=== PATIENT | female | born 1960 | race Caucasian/White ===

== ENCOUNTER → 2016-10-11 | Outpatient (CLI) | payer MEDICARE ==
--- NOTE | 2016-10-11 11:41 | MM ---
Reason for exam: clinical finding. Last mammogram was performed 19 years and 4 months ago. History: Patient is postmenopausal. Family history of premenopausal breast cancer in mother. Took estrogen for 7 years. Indicated problem(s): skin thickening or retraction in the left breast. Physical Findings: Nurse did not find any significant physical abnormalities on exam. MG 3D Diag Mammo W/Cad ASH Bilateral CC and MLO view(s) were taken. XCCL view(s) were taken of the right breast. Prior study comparison: June 17, 1997, bilateral diagnostic mammogram. The breast tissue is heterogeneously dense. This may lower the sensitivity of mammography. No significant new findings when compared with previous films. These results were verbally communicated with the patient and result sheet given to the patient on 10/11/16. ASSESSMENT: Benign, BI-RAD 2 RECOMMENDATION: Routine screening mammogram of both breasts in 1 year.
== END | disposition home or self-care (01) ==
LOC: RADMAMWWP 10:50
PROVIDERS: ATTEND Family Medicine
DX: N64.51 Induration of breast (principal)
CPT/HCPCS: G0204; G0279

== ENCOUNTER → 2017-11-22 | Outpatient (CLI) | payer MEDICARE ==
[2017-11-22 11:25] LABS: Anion Gap 9 mmol/L; Blood Urea Nitrogen 9 mg/dL (7-17); Carbon Dioxide 24 mmol/L (22-30); Chloride 108 mmol/L (98-107); Potassium 4.4 mmol/L (3.5-5.1); Sodium 141 mmol/L (137-145)
[2017-11-22 11:29] LABS: HCT 43.6 % (34.0-46.0); MCH 30.3 pg (25.0-35.0); MCHC 32.1 g/dL (31.0-37.0); MCV 94.5 fL (80.0-100.0); Mean Platelet Volume 6.7; Platelet Count 315 k/uL (150-450); RBC 4.61 m/uL (3.80-5.40); RDW 14.9 % (11.5-15.5); WBC 7.4 k/uL (3.8-10.6)
== END | disposition home or self-care (01) ==
LOC: LABPAT 10:49
PROVIDERS: ATTEND Internal Medicine Cardiovascular Disease
DX: Z01.812 Encounter for preprocedural laboratory examination (principal); I10 Essential (primary) hypertension; I20.9 Angina pectoris, unspecified
CPT/HCPCS: 80051; 82565; 84520; 85027

== ENCOUNTER → 2017-11-22 | Outpatient (CLI) | payer MEDICARE | END | disposition home or self-care (01) | LOC: LABWHC1 10:51 | PROVIDERS: ATTEND Internal Medicine Cardiovascular Disease | DX: I20.9 Angina pectoris, unspecified (principal) | CPT/HCPCS: 36415; 83704 ==

== ENCOUNTER 2017-11-29 10:42 | Day surgery (SDC) | payer MEDICARE, OTHER ==
[~2017-11-29 10:42] MED LIST: ALPRAZolam 0.25 MG TAB PO PRN; ALPRAZolam 0.5 MG TAB PO PRN; ASPIRIN 325 MG TAB PO STA; ATORVASTATIN 80 MG TAB PO STA; NITROGLYCERIN SL TABS 0.4 MG TAB SUBLINGUAL PRN; SODIUM CHLORIDE 0.9% 1,000 ML in EMPTY BAG 1 BAG IV ONE
[2017-11-29] MEDS ORDERED: SODIUM CHLORIDE 0.9% 1,000 ML IV ONE (11:48)
[2017-11-29] MEDS ORDERED: LIDOCAINE 1% INJ 10MG/ML (20 ML MDV) ONE (12:51)
[2017-11-29] MEDS ORDERED: fentaNYL (PF) 50 MCG/ML 2 ML AMP ONE (12:55)
[2017-11-29] MEDS ORDERED: MIDAZOLAM 2 MG/2 ML VIAL ONE (12:55)
[2017-11-29] MEDS ORDERED: MIDAZOLAM 2 MG/2 ML VIAL IV ONE (13:00)
[2017-11-29] MEDS ORDERED: fentaNYL (PF) 50 MCG/ML 2 ML AMP IV ONE (13:00)
[2017-11-29] MEDS ORDERED: LIDOCAINE 1% (PF) 10MG/ML VIAL SQ ONE (13:01)
[2017-11-29] MEDS ORDERED: LIDOCAINE 1% INJ 10MG/ML (20 ML MDV) SQ ONE (13:01)
[2017-11-29] MEDS ORDERED: NITROGLYCERIN 1000MCG/10ML SYRINGE INTRACORON ONE (13:09)
[2017-11-29] MEDS ORDERED: CLOPIDOGREL 75 MG TAB ONE ×2 (13:38)
[2017-11-29] MEDS ORDERED: BIVALIRUDIN BOLUS 250 MG/50 ML IV ONE (13:42)
[2017-11-29] MEDS ORDERED: BIVALIRUDIN 250 MG in SODIUM CHLORIDE 0.9% 50 ML IV ONE (13:44)
[2017-11-29] MEDS ORDERED: CLOPIDOGREL 75 MG TAB PO ONE (13:44)
[2017-11-29] MEDS ORDERED: IOPAMIDOL-370 125ML BTL INJ ONE (13:49)
[2017-11-29] MEDS ORDERED: IOPAMIDOL-370 100ML BTL INJ ONE ×2 (14:13→14:18)
[2017-11-29] MEDS ORDERED: ATROPINE SULFATE 0.1 MG/ML 10ML SYRINGE IV PRN (14:29)
[2017-11-29] MEDS ORDERED: MAG HYDROX/AL HYDROX/SIMETH 30 ML CUP PO PRN (14:29)
[2017-11-29] MEDS ORDERED: NITROGLYCERIN SL TABS 0.4 MG TAB SUBLINGUAL PRN (14:29)
[2017-11-29] MEDS ORDERED: RX INFO: IV CONTRAST WAS GIVEN 1 EACH MISC MISCELLANE PRN (14:29)
[2017-11-29] MEDS ORDERED: ZOLPIDEM 5 MG TAB PO PRN (14:29)
[2017-11-29] MEDS ORDERED: SODIUM CHLORIDE 0.9% 1,000 ML IV SCH (14:30)
--- NOTE | 2017-11-29 15:57 | CC ---
CARDIAC CATHETERIZATION REPORT Mrs. Chang was seen in the office for the symptoms of evaluation of chest pain. This patient has a history of hypertension and strong family history of coronary artery disease. The patient has been having intermittent left precordial chest discomfort. Previous stress test was negative. The patient has been tried on medical therapy, but in view of the continued pain, the patient was advised cardiac catheterization for definitive diagnosis. PROCEDURE: The right groin was prepped and draped in the usual manner and the skin was infiltrated with 2% Xylocaine. The right femoral artery was entered using Seldinger technique. A #6- Kazakh sheath was placed in. Selective coronary angiography was then performed in multiple projections and the left ventricular pressures were obtained. Patient tolerated the procedure well. Moderate sedation was used with sedation time of 20 minutes. SELECTIVE CORONARY ANGIOGRAPHY: Left main coronary artery is normal and patent. The mid LAD is a good caliber blood vessel. Mid LAD has an area of 70% stenosis and beyond that there is another area of 70% stenosis. Circumflex coronary artery has mild irregularity and the right coronary artery has mild irregularity. IMPRESSION: There is a 70% stenosis in 2 spots in the mid LAD. Circumflex coronary artery and right coronary artery have mild irregularity. We will review the films with Dr. Ribeiro and consider intervention. MMODL / IJN: [id number] /
--- NOTE | 2017-11-29 16:24 | PTCA ---
PERCUTANEOUSTRANS CORORONARY ANGIOGRAPHY Mrs. Chang is a 57-year-old female known history of chronic tobacco use. Strong family history of coronary disease, history of hypertension who has been complaining of progressive episodes of chest discomfort. Because of that, she underwent cardiac catheterization that revealed critical significant stenosis involving 2 segment of a calcified LAD. In view of that, recommendation was made regarding angioplasty and stenting. The procedure, as well as risks and complications were discussed with the patient who is in full understanding and agreement. PROCEDURE: A 6-Brazilian FR4 guiding catheter was introduced into the system. After cannulating the left main, a 0.014 advanced medium weight J-wire was advanced across the left main and positioned into the ramus intermedius. Subsequently another 0.014 advanced medium weight J-wire was advanced in position in the distal LAD. Following that, a 2.5 x 15 mm Xience Alpine stent was deployed in the mid distal segment and was dilated to 16 atmospheres. That balloon was removed and a 2.5 x 15 mm Xience Alpine stent was deployed into the mid segment and it was dilated at 16 atmospheres. Following that, a 2.5 x 12 mm Xience Alpine stent was deployed in the segment between the 2 stent and was dilated at 16 atmospheres. Following that, and after removing the balloon, a 2.5 x 12 mm Xience Alpine stent was deployed proximal to the first one and it was dilated at 16 atmospheres. After the last inflation, after appropriate wait, the balloon and the guidewire were withdrawn back in the guiding catheter. Images were obtained and repeated. Those images revealed stable successful stenting. At that point, the guiding catheter, the balloon and the guidewire were removed. The sheath was sutured in place. The patient was returned to her room in stable condition. Of note, the patient had chest discomfort and EKG changes with the inflation that resolved at the end of the procedure. She received Angiomax per protocol as well as oral loading dose of clopidogrel. RESULTS: Successful stenting of the mid distal LAD with reduction of stenosis from 80% to 0%. RECOMMENDATION: Patient will be continued on aspirin, Plavix and statin. The importance of dual antiplatelet treatment and aggressive coronary risk factor modifications were discussed with the patient and her family and they are in full understanding and agreement. Duration of procedure is 37 minutes. MMODL / IJN: [id number] /
[2017-11-29 17:50] VITALS: RESP 16
[2017-11-29] MEDS: GABAPENTIN 400 MG CAP PO SCH ×2 (19:47→23:42)
[2017-11-29] MEDS ORDERED: DOXEPIN 25 MG CAP PO SCH (21:00)
[2017-11-29] MEDS ORDERED: cloNIDine HCL 0.1 MG TAB PO SCH (21:00)
[2017-11-30 05:58] VITALS: PULSE 80
[2017-11-30] MEDS ORDERED: LEVOTHYROXINE 75 MCG TAB PO SCH (06:30)
[2017-11-30 06:34] LABS: Anion Gap 8 mmol/L; Blood Urea Nitrogen 13 mg/dL (7-17); Calcium 9.2 mg/dL (8.4-10.2); Carbon Dioxide 22 mmol/L (22-30); Chloride 110 mmol/L (98-107); Glucose 102 mg/dL (74-99); Potassium 5.1 mmol/L (3.5-5.1); Sodium 140 mmol/L (137-145)
[2017-11-30 08:37] VITALS: BP 114/55; TEMP 97.8
[2017-11-30] MEDS ORDERED: CLOPIDOGREL 75 MG TAB PO SCH (09:00)
[2017-11-30] MEDS ORDERED: BUPRENORPHINE HCL SL SCH (09:00)
[2017-11-30] MEDS ORDERED: LOSARTAN 50 MG TAB PO SCH (09:00)
[2017-11-30] MEDS ORDERED: ESCITALOPRAM 20 MG TAB PO SCH (09:00)
[2017-11-30] MEDS ORDERED: NALOXONE HCL SL SCH (09:00)
[2017-11-30] MEDS ORDERED: ASPIRIN 81 MG PO SCH (09:00)
[2017-11-30] MEDS ORDERED: TICAGRELOR 90 MG TAB PO SCH (10:15)
--- NOTE | 2017-11-30 10:31 | DS ---
DISCHARGE SUMMARY DISCHARGE NOTE This patient was admitted, underwent cardiac catheterization yesterday. There were 2 areas of 70% stenosis in mid LAD. Patient underwent a stent placement. She is doing well. Right groin is normal. There is no evidence of any hematoma. First and second heart sounds are normal. Lungs are clinically clear to auscultation and percussion. The patient was educated regarding the medications. She is advised to stop smoking. Patient will be discharged home on baby aspirin and Brilinta. MMODL / IJN: [id number] /
[2017-11-30 11:00] VITALS: BMI 25.5
--- NOTE | 2017-11-30 12:31 | PN ---
PROGRESS NOTE Mrs Chang was admitted yesterday. Dr. Pepper Eduardo performed cardiac cath and Dr. Ribeiro performed LAD stenting. Multiple stents were deployed. I am recommending that she can be discharged. Her right groin is clean and dry. Vitals are stable S1-S2 heard normally. Lungs are clear. Abdomen and lower extremity exam unchanged. Given multiple stents, she should ideally go home on Brilinta and we will see if she has any coverage with it. Physical exam, there are no other significant findings. She will see Dr. Eduardo in one week and discharge instructions regarding activity, diet and medications were given. MMODL / IJN: [id number] /
[2017-11-30] MEDS ORDERED: ATORVASTATIN 80 MG TAB PO SCH (21:00)
== END 2017-11-30 11:25 | disposition home or self-care (01) ==
LOC: CATHCVL 10:42 → 6SEL 14:18 → CATHCVL 11-30 11:25
PROVIDERS: ATTEND Internal Medicine Cardiovascular Disease
DX: I25.10 Atherosclerotic heart disease of native coronary artery without angina pectoris (principal); I10 Essential (primary) hypertension; F17.210 Nicotine dependence, cigarettes, uncomplicated; Z82.49 Family history of ischemic heart disease and other diseases of the circulatory system; Z79.890 Hormone replacement therapy; Z79.899 Other long term (current) drug therapy; Z88.6 Allergy status to analgesic agent; Z88.8 Allergy status to other drugs, medicaments and biological substances
CPT/HCPCS: 93458; 80048; C9600; C1769 ×2; C1887; C1894; C1874; J2250; J2001; J3010; J0583; Q9967 ×2

== ENCOUNTER → 2018-04-01 | Outpatient (CLI) | payer MEDICARE ==
--- NOTE | 2018-04-01 19:36 | MR ---
MR brain without contrast HISTORY: Dizziness and TIA Multiplanar multisequence imaging through the brain. No comparisons There is no restricted diffusion. Cerebellopontine angles, corpus callosum, pituitary, cervical medul doris junction are normal. No hemorrhage or hydrocephalus. There are scattered hyperintensities on inv ersion recovery T2-weighted sequences within the periventricular white matter, approximately 5 lesion s, increased signal also noted within the teodora. The orbits show symmetric appearance. Inflammatory ch veronica present in the ethmoid air cells. IMPRESSION: Nonspecific white matter demyelination may be indicative of underlying vasculitis, small vessel ischemia, hypertension, migraine headaches, multiple sclerosis felt to be less likely.
--- NOTE | 2018-04-02 10:03 | MR ---
EXAMINATION TYPE: MR angio head wo con DATE OF EXAM: 04/01/2018 COMPARISON: MR brain same date HISTORY: DIZZINESS, TIA TECHNIQUE: Time of flight images focusing on the [place] were performed without contrast. Th ree-dimensional reconstructions on an alternate workstation FINDINGS: Anterior and posterior circulation is intact. There is no evident aneurysm, dissection, or embolus. No vascular malformation. Right vertebral artery is dominant. Persistent origin of the posterior cerebral artery on the left is noted. Atheromatous changes are present within the internal carotid arteries at the level of the siphon. IMPRESSION: Cerebral vascular disease.
== END ==
LOC: RADMRIMAIN 14:03
PROVIDERS: ATTEND Internal Medicine Cardiovascular Disease
DX: I99.8 Other disorder of circulatory system (principal)
CPT/HCPCS: 70544; 70551

== ENCOUNTER → 2018-04-10 | Outpatient (CLI) | payer MEDICARE, OTHER ==
--- NOTE | 2018-04-10 10:43 | CT ---
EXAMINATION TYPE: CT angio neck DATE OF EXAM: 04/10/2018 HISTORY: Carotid stenosis. Abnormal US. COMPARISON: NONE CT DLP: 189.2 mGycm. Automated Exposure Control for Dose Reduction was Utilized. TECHNIQUE: CTA scan of the neck is performed with IV Contrast, patient injected with 65 mL of Isovue 370, axial images are obtained, coronal and sagittal reformatted images are reviewed. Three-D recons tructed images are created on an independent workstation and reviewed. FINDINGS: Carotid/Vascular Structures: There is moderate mixed plaque in aortic arch extending into 3 great ves sels without significant stenosis identified. Visualized subclavian arteries show moderate plaque on the right without significant stenosis. There is suboptimal evaluation of the left due to streak reji fact from draining left subclavian vein. Right common carotid artery shows normal origin from right brachiocephalic artery with moderate perip heral noncalcified plaque. There is mild to moderate mixed plaque proximal to mid segments with more moderate to severe mixed plaque in the distal right common carotid artery. There is moderate mixed pl aque at carotid bulb extending into proximal internal/external carotid arteries. Right external carot id artery is patent without significant stenosis. Right internal carotid artery shows no significant stenosis. Slight tortuous course to mid segment of right internal carotid artery is seen. There is mo derate calcified plaque supraclinoid segment without significant stenosis. Mild to moderate mixed plaque left common carotid artery at its origin is seen. There is moderate mix ed plaque in the mid segment becoming noncalcified plaque. There is moderate to severe mixed plaque d istal left common carotid artery extending into carotid bulb, significant stenosis at origin of exter nal carotid artery is felt present. There is focal narrowing of the left internal carotid artery shor tly after its origin with lumen diameter narrows to 2.5 mm image 26 and reconstitution to 4.4 mm supe rior to this. Postprocessing images correlate. Remainder of the internal carotid artery shows tortuou s course mid segment with moderate calcified plaque distal supraclinoid segment. No significant steno sis is present. There is dominant right vertebral artery. Vertebral arteries are patent to basilar junction. Other: There is background moderate emphysematous change. There are prominent but subcentimeter lymph nodes throughout the neck bilaterally, left slightly larg er than right at submandibular level. Underlying scoliosis is present on coronal images. IMPRESSION: Moderate to severe diffuse atherosclerotic change throughout common carotid arteries bila terally including carotid bulbs without hemodynamically significant focal stenosis seen in common or internal carotid arteries.
== END | disposition home or self-care (01) ==
LOC: RADCTMAIN 08:53
PROVIDERS: ATTEND Internal Medicine Interventional Cardiology
DX: I65.23 Occlusion and stenosis of bilateral carotid arteries (principal)
CPT/HCPCS: 70498; Q9967

== ENCOUNTER → 2018-05-06 | Outpatient (CLI) | payer MEDICARE, OTHER ==
[2018-05-06 11:57] LABS: Hypochromasia Slight; MCH 31.7 pg (25.0-35.0); MCHC 31.8 g/dL (31.0-37.0); MCV 99.7 fL (80.0-100.0); Macrocytosis Slight; Platelet Count 343 k/uL (150-450); RBC 4.11 m/uL (3.80-5.40); RDW 15.3 % (11.5-15.5); WBC 8.8 k/uL (3.8-10.6)
[2018-05-06 12:05] LABS: Anion Gap 8 mmol/L; Blood Urea Nitrogen 10 mg/dL (7-17); Carbon Dioxide 26 mmol/L (22-30); Chloride 108 mmol/L (98-107); Potassium 4.3 mmol/L (3.5-5.1); Sodium 142 mmol/L (137-145)
== END | disposition home or self-care (01) ==
LOC: LABPAT 11:27
PROVIDERS: ATTEND Internal Medicine Interventional Cardiology
DX: Z01.812 Encounter for preprocedural laboratory examination (principal); I65.23 Occlusion and stenosis of bilateral carotid arteries; I25.10 Atherosclerotic heart disease of native coronary artery without angina pectoris
CPT/HCPCS: 80051; 82565; 84520; 85027

== ENCOUNTER → 2018-05-11 | Day surgery (SDC) | payer MEDICARE, OTHER ==
[2018-05-08 15:26] VITALS: BMI 27.1
[~2018-05-11] MED LIST changes: -ALPRAZolam 0.5 MG TAB PO PRN; -ATORVASTATIN 80 MG TAB PO STA; +IOPAMIDOL-250 100ML BTL INTRAARTER ONE; +LIDOCAINE 1% INJ 10MG/ML (20 ML MDV) SQ ONE; +MIDAZOLAM 2 MG/2 ML VIAL IV ONE; -NITROGLYCERIN SL TABS 0.4 MG TAB SUBLINGUAL PRN; +SODIUM CHLORIDE 0.9% 1,000 ML IV SCH
[2018-05-11 09:14] VITALS: TEMP 97.8
--- NOTE | 2018-05-11 12:03 | LTR ---
May 11 2018 Re: Lidia Chang Dear Dr. Mcwilliams: Ms. Lidia Chang underwent today an aortic arch angiogram and that revealed intermediate disease involving the origin of the major arteries including the innominate, left carotid, and left subclavian. Giving that I did recommend maximized medical treatment only. Thank you for allowing me to participate in her care and please do not hesitate to call if you have any question or concern. Sincerely, MD PILI Ordaz / ELISHA: [id number] /
[2018-05-11 12:35] VITALS: RESP 16
--- NOTE | 2018-05-11 12:48 | AN ---
ANGIOGRAPHY REPORT AORTIC ARCH ANGIOGRAM: DATE OF SERVICE: 05/11/2018. PERFORMING PHYSICIAN: Karthik Vale MD, credit portfolio manager. PROCEDURE PERFORMED: 1. An aortic arch angiogram. 2. Non selective innominate angiogram, left carotid angiogram, and left subclavian angiogram. INDICATION: This is a pleasant 57-year-old female patient who sees Dr. Eduardo in the office as an outpatient who had recently history of stroke and she underwent a carotid CTA which revealed intermediate to severe disease involving the carotid artery bilaterally. When I did review the CT scan with the radiologist, there was a concern about the ostium of the innominate and because of that, she was brought today to undergo an aortic arch angiogram. APPROACH: Right common femoral artery. COMPLICATION: None. LEVEL OF SEDATION: Moderate with sedation length of 16 minutes. PROCEDURE DESCRIPTION: 1. After obtaining an informed consent, the patient was brought to the cardiac track laborer. The right common femoral artery was cannulated using micropuncture technique, the micropuncture wire passed easily, then I placed a 5-Slovak sheath in the right common femoral artery. 2. After that, I did an aortic arch angiogram using 5-Slovak pigtail catheter. The aortic arch was performed in the [place] projection and using a power injection under digital subtraction. 3. The procedure was completed without any complication. SELECTIVE PERIPHERAL ANGIOGRAM: 1. The aortic arch is a type 1 arch, it is extremely calcified. 2. The ostial of the innominate has a plaque, appeared to be in the range of 60% to 70%. The ostium is extremely calcified. 3. The left carotid had a plaque, also appeared to be in the range of 50% to 60%. and also is extremely calcified. 4. The left subclavian. The ostial of the left subclavian has a plaque appeared to be in the range of 50% and also appeared to be calcified. CONCLUSION: 1. Type 1 aortic arch. 2. 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 POSTPROCEDURE MANAGEMENT: Giving the absence of any critical disease involving the innominate or the origin of the major arteries, I did recommend maximized medical treatment. I did review the angiogram also with Dr. Vargas. We did recommend following up with the patient in 6 months with a CTA of the of the thoracic aorta as well as the carotid using 3 mm thickness slices and injection from the right arm of the contrast. MMODL / IJN: [id number] /
[2018-05-11 15:45] VITALS: PULSE 62
[2018-05-11 16:08] VITALS: BP 129/60
--- NOTE | 2018-05-12 08:20 | IR ---
EXAMINATION TYPE: IR angio aortic arch DATE OF EXAM: 05/11/2018 COMPARISON: NONE HISTORY: Fluoroscopy time. Fluoroscopy was provided to the referring clinician. 1.5 minutes of fluoroscopy provided. No images submitted.
== END ==
LOC: CATHCVL 08:43
PROVIDERS: ATTEND Internal Medicine Interventional Cardiology
DX: I70.0 Atherosclerosis of aorta (principal); I65.22 Occlusion and stenosis of left carotid artery; I82.B12 Acute embolism and thrombosis of left subclavian vein; I25.10 Atherosclerotic heart disease of native coronary artery without angina pectoris; F17.200 Nicotine dependence, unspecified, uncomplicated; Z79.02 Long term (current) use of antithrombotics/antiplatelets; Z79.82 Long term (current) use of aspirin; Z79.890 Hormone replacement therapy; Z79.899 Other long term (current) drug therapy; Z88.6 Allergy status to analgesic agent; Z88.8 Allergy status to other drugs, medicaments and biological substances
CPT/HCPCS: 36221; C1769 ×3; C1894; J2250; J2001; Q9966

== ENCOUNTER 2018-07-03 15:39 | Observation (INO) | payer MEDICARE, OTHER ==
[2018-07-03] MEDS ORDERED: NITROGLYCERIN SL TABS 0.4 MG TAB SUBLINGUAL STA (16:04)
[2018-07-03] MEDS ORDERED: SODIUM CHLORIDE 0.9% 500 ML 500 ML IV STA (16:04)
[2018-07-03] MEDS ORDERED: NITROGLYCERIN OINT 1 INCH/GM PACKET TOPICAL STA (16:04)
--- NOTE | 2018-07-03 16:06 | ED ---
General Adult HPI - General Chief complaint: Chest Pain Stated complaint: Chest Pain Time Seen by Provider: 07/03/18 15:50 Source: patient, RN notes reviewed Mode of arrival: wheelchair Limitations: no limitations - History of Present Illness Initial comments: This is a 58-year-old female presents emergency department with past medical history significant for 4 cardiac stents and states that she needs another one on the of this month. Patient also has a past medical history for high cholesterol and continues to smoke. She also has a very strong family history of heart disease. Patient comes in today because she started having chest pain at 19 after 2 today. Patient states she took 3 nitroglycerin took the pain away but came back and that is why she came into the emergency department. Patient states it makes her slightly short of breath the pain does not radiate and stays in the center of her chest. Patient denies any diaphoretic episodes. Patient denies any nausea. Patient denies any abdominal pain patient denies any recent vomiting or diarrhea. Patient denies any recent fever chills or cough per patient denies headache patient denies numbness weakness. Patient denies any lightheadedness dizziness or near syncopal episode. Patient denies any swelling to the legs or calf tenderness. - Related Data Home Medications Medication Instructions Recorded Confirmed Escitalopram [Lexapro] 40 mg PO DAILY 11/28/17 07/03/18 Levothyroxine Sodium [Synthroid] 150 mcg PO DAILY 11/28/17 07/03/18 Gabapentin [Neurontin] 800 mg PO TID 11/29/17 07/03/18 Albuterol Inhaler [Ventolin Hfa 1 - 2 puff INHALATION RT-Q6H PRN 05/08/18 07/03/18 Inhaler] Previous Rx's Medication Instructions Recorded Aspirin EC [Ecotrin Low Dose] 81 mg PO DAILY #30 tablet. 11/30/17 Atorvastatin [Lipitor] 80 mg PO HS #30 tab 11/30/17 Losartan [Cozaar] 50 mg PO DAILY #30 tab 11/30/17 Nitroglycerin Sl Tabs [Nitrostat] 0.4 mg SUBLINGUAL Q5M PRN #25 tab 11/30/17 Ticagrelor [Brilinta] 90 mg PO BID #60 tab 11/30/17 Allergies Allergy/AdvReac Type Severity Reaction Status Date / Time ibuprofen [From Motrin] Allergy Unknown Verified 07/03/18 16:18 Review of Systems ROS Statement: Those systems with pertinent positive or pertinent negative responses have been documented in the HPI. ROS Other: All systems not noted in ROS Statement are negative. Past Medical History Past Medical History: Asthma, Coronary Artery Disease (CAD), Chest Pain / Angina, COPD, Thyroid Disorder Additional Past Medical History / Comment(s): SLIGHT COPD. 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 CYSTS REMOVED FROM UNDER ARMS AND HANDS Past Anesthesia/Blood Transfusion Reactions: No Reported Reaction Past Psychological History: Depression Smoking Status: Current every day smoker Past Alcohol Use History: None Reported Past Drug Use History: None Reported - Past Family History Mother Family Medical History: Cancer Sister(s) Family Medical History: Cancer General Exam - General Exam Comments Initial Comments: GENERAL: Patient is well-developed and well-nourished. Patient is nontoxic and well- hydrated and is in mild distress. ENT: Neck is soft and supple. No significant lymphadenopathy is noted. Oropharynx is clear. Moist mucous membranes. Neck has full range of motion without eliciting any pain. EYES: The sclera were anicteric and conjunctiva were pink and moist. Extraocular movements were intact and pupils were equal round and reactive to light. Eyelids were unremarkable. PULMONARY: Unlabored respirations. Good breath sounds bilaterally. No audible rales rhonchi or wheezing was noted. CARDIOVASCULAR: There is a regular rate and rhythm without any murmurs gallops or rubs. ABDOMEN: Soft and nontender with normal bowel sounds. SKIN: Skin is clear with no lesions or rashes and otherwise unremarkable. NEUROLOGIC: Patient is alert and oriented x3. Cranial nerves II through XII are grossly intact. Motor and sensory are also intact. Normal speech, volume and content. Symmetrical smile. MUSCULOSKELETAL: Normal extremities with adequate strength and full range of motion. No lower extremity swelling or edema. No calf tenderness. LYMPHATICS: No significant lymphadenopathy is noted PSYCHIATRIC: Normal psychiatric evaluation. 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 The risks of smoking were discussed with the patient including but not limited to risks of cancer, stroke, coronary artery disease and COPD. Also discussed with the patient were multiple methods of quitting smoking. Lastly we discussed the financial costs of smoking. Patient's EKG shows a normal sinus rhythm at 74 bpm MN interval is 140 QRS is 102 QT interval is 416 QTC is 461. Patient's EKG shows no ST segment elevation or depression or T wave abnormalities are noted. I started the patient on heparin because of the unstable angina picture. Patient was feeling considerably better after she was put on oxygen given Nitropaste and aspirin. I spoke with Dr. Mcwilliams agreed to admit the patient admitted the patient I wrote admitting orders and I consulted cardiology. I continued heparin and aspirin and Nitropaste on the floor. Chest x-ray shows no acute abnormality. - Lab Data Result diagrams: 07/03/18 16:20 07/03/18 16:20 Lab Results 07/03/18 07/03/18 07/03/18 Range/Units 16:20 16:20 16:20 WBC 9.7 (3.8-10.6) k/uL RBC 4.47 (3.80-5.40) m/uL Hgb 13.6 (11.4-16.0) gm/dL Hct 42.8 (34.0-46.0) % MCV 95.8 (80.0-100.0) fL MCH 30.5 (25.0-35.0) pg MCHC 31.9 (31.0-37.0) g/dL RDW 14.4 (11.5-15.5) % Plt Count 335 (150-450) k/uL Neutrophils % 56 % Lymphocytes % 33 % Monocytes % 5 % Eosinophils % 3 % Basophils % 1 % Neutrophils # 5.4 (1.3-7.7) k/uL Lymphocytes # 3.2 (1.0-4.8) k/uL Monocytes # 0.5 (0-1.0) k/uL Eosinophils # 0.2 (0-0.7) k/uL Basophils # 0.1 (0-0.2) k/uL PT 9.8 (9.0-12.0) sec INR 0.9 (<1.2) APTT 20.9 L (22.0-30.0) sec Sodium 137 (137-145) mmol/L Potassium 5.3 H (3.5-5.1) mmol/L Chloride 105 (98-107) mmol/L Carbon Dioxide 23 (22-30) mmol/L Anion Gap 9 mmol/L BUN 6 L (7-17) mg/dL Creatinine 0.60 (0.52-1.04) mg/dL Est GFR (CKD-EPI)AfAm >90 (>60 ml/min/1.73 sqM) Est GFR (CKD-EPI)NonAf >90 (>60 ml/min/1.73 sqM) Glucose 86 (74-99) mg/dL Calcium 9.2 (8.4-10.2) mg/dL Magnesium 2.3 (1.6-2.3) mg/dL Total Bilirubin 0.5 (0.2-1.3) mg/dL AST 31 (14-36) U/L ALT 20 (9-52) U/L Alkaline Phosphatase 100 (38-126) U/L Troponin I (0.000-0.034) ng/mL Total Protein 7.8 (6.3-8.2) g/dL Albumin 4.4 (3.5-5.0) g/dL 07/03/18 Range/Units 16:20 WBC (3.8-10.6) k/uL RBC (3.80-5.40) m/uL Hgb (11.4-16.0) gm/dL Hct (34.0-46.0) % MCV (80.0-100.0) fL MCH (25.0-35.0) pg MCHC (31.0-37.0) g/dL RDW (11.5-15.5) % Plt Count (150-450) k/uL Neutrophils % % Lymphocytes % % Monocytes % % Eosinophils % % Basophils % % Neutrophils # (1.3-7.7) k/uL Lymphocytes # (1.0-4.8) k/uL Monocytes # (0-1.0) k/uL Eosinophils # (0-0.7) k/uL Basophils # (0-0.2) k/uL PT (9.0-12.0) sec INR (<1.2) APTT (22.0-30.0) sec Sodium (137-145) mmol/L Potassium (3.5-5.1) mmol/L Chloride (98-107) mmol/L Carbon Dioxide (22-30) mmol/L Anion Gap mmol/L BUN (7-17) mg/dL Creatinine (0.52-1.04) mg/dL Est GFR (CKD-EPI)AfAm (>60 ml/min/1.73 sqM) Est GFR (CKD-EPI)NonAf (>60 ml/min/1.73 sqM) Glucose (74-99) mg/dL Calcium (8.4-10.2) mg/dL Magnesium (1.6-2.3) mg/dL Total Bilirubin (0.2-1.3) mg/dL AST (14-36) U/L ALT (9-52) U/L Alkaline Phosphatase (38-126) U/L Troponin I <0.012 (0.000-0.034) ng/mL Total Protein (6.3-8.2) g/dL Albumin (3.5-5.0) g/dL Critical Care Time Critical Care Time: Yes Total Critical Care Time: 35 Disposition Clinical Impression: Unstable angina pectoris Disposition: ADMITTED IP TO THIS [facility] Time of Disposition: 17:18
[2018-07-03 16:36] LABS: Basophils # (A) 0.1 k/uL (0-0.2); Basophils % (A) 1 %; Eosinophils # (A) 0.2 k/uL (0-0.7); Eosinophils % (A) 3 %; HCT 42.8 % (34.0-46.0); HGB 13.6 gm/dL (11.4-16.0); Lymphocytes # (A) 3.2 k/uL (1.0-4.8); Lymphocytes % (A) 33 %; MCH 30.5 pg (25.0-35.0); MCHC 31.9 g/dL (31.0-37.0); MCV 95.8 fL (80.0-100.0); Mean Platelet Volume 6.3; Monocytes # (A) 0.5 k/uL (0-1.0); Monocytes % (A) 5 %; Neutrophils # (A) 5.4 k/uL (1.3-7.7); Neutrophils % (A) 56 %; Platelet Count 335 k/uL (150-450); RBC 4.47 m/uL (3.80-5.40); RDW 14.4 % (11.5-15.5); WBC 9.7 k/uL (3.8-10.6)
[2018-07-03 16:51] LABS: ALT 20 U/L (9-52); AST 31 U/L (14-36); Albumin 4.4 g/dL (3.5-5.0); Alkaline Phosphatase 100 U/L (38-126); Anion Gap 9 mmol/L; Blood Urea Nitrogen 6 mg/dL (7-17); Calcium 9.2 mg/dL (8.4-10.2); Carbon Dioxide 23 mmol/L (22-30); Chloride 105 mmol/L (98-107); Glucose 86 mg/dL (74-99); Magnesium 2.3 mg/dL (1.6-2.3); Potassium 5.3 mmol/L (3.5-5.1); Sodium 137 mmol/L (137-145); Total Bilirubin 0.5 mg/dL (0.2-1.3); Total Protein 7.8 g/dL (6.3-8.2)
[2018-07-03 16:55] LABS: INR 0.9 (<1.2); Prothrombin Time 9.8 sec (9.0-12.0)
[2018-07-03 17:07] LABS: Partial Thromboplastin Time 20.9 sec (22.0-30.0)
[2018-07-03] MEDS ORDERED: HEPARIN SODIUM,PORCINE 5,000 UNIT/ML 1 ML VIAL IV ONE (17:16)
[2018-07-03] MEDS ORDERED: NITROGLYCERIN SL TABS 0.4 MG TAB SUBLINGUAL PRN (17:18)
--- NOTE | 2018-07-03 17:58 | XR ---
EXAMINATION TYPE: XR chest 2V DATE OF EXAM: 07/03/2018 COMPARISON: NONE HISTORY: History of angina with chest pain. TECHNIQUE: Frontal and lateral views of the chest are obtained. FINDINGS: Overlying EKG leads are seen. There is chronic parenchymal change without suspicious focal air space opacity, pleural effusion, or pneumothorax seen. The cardiac silhouette size is within no rmal limits with atherosclerotic change in thoracic aorta redemonstrated. Metallic screw fragment rig ht humeral head is noted. The osseous structures are demineralized. IMPRESSION: Chronic changes without acute pulmonary process.
[2018-07-03] MEDS: HEPARIN SOD,PORK IN 0.45% NACL 25,000 UNIT in 0.45% NACL 1 250ML.BAG IV SCH (18:03)
[2018-07-03] MEDS: ACETAMINOPHEN TAB 325 MG TAB PO PRN (20:45)
[2018-07-04] MEDS: NITROGLYCERIN OINT 1 INCH/GM PACKET TOPICAL SCH ×4 (01:47→18:24)
[2018-07-04] MEDS ORDERED: guaiFENesin SYRUP 100MG/5ML 200 MG/10 ML CUP PO PRN (02:22)
[2018-07-04] MEDS ORDERED: IPRATROPIUM-ALBUTEROL 3 ML NEB INHALATION PRN (02:22)
[2018-07-04 03:52] LABS: Cholesterol 130 mg/dL (<200); HDL Cholesterol 40 mg/dL (40-60); LDL Cholesterol,Calculated 64 mg/dL (0-99); Triglycerides 129 mg/dL (<150)
[2018-07-04] MEDS ORDERED: ALBUTEROL NEBULIZED 2.5 MG/3 ML INHALATION PRN (07:31)
[2018-07-04] MEDS ORDERED: NITROGLYCERIN SL TABS 0.4 MG TAB SUBLINGUAL PRN (07:31)
--- NOTE | 2018-07-04 07:31 | P.HPIM ---
History of Present Illness Chief Complaint: Anginal type chest pain. This is history of physical and a 58-year-old white female who presented to the ER and has history of multiple stent placements. She is about 7 cigarettes smoker and she slowly trying to wean. She states that she is scheduled to have further stent placement at the end of this month. However, she had significant anginal type chest pain without any diaphoresis no nausea but the pressure was significant. She ended up taking nitroglycerin but the pain came back and she is now here for evaluation. Enzymatic elevation is not elucidated at this time. We had a long discussion again regarding smoking cessation. Review of Systems Constitutional: Denies chills, Denies fever Eyes: denies blurred vision, denies pain Ears, nose, mouth and throat: Denies headache, Denies sore throat Cardiovascular: Reports chest pain, Reports dyspnea on exertion Respiratory: Denies cough Gastrointestinal: Denies abdominal pain, Denies diarrhea, Denies nausea, Denies vomiting Genitourinary: Denies dysuria, Denies hematuria Musculoskeletal: Denies myalgias Past Medical History Past Medical History: Asthma, Coronary Artery Disease (CAD), Chest Pain / Angina, COPD, Thyroid Disorder Additional Past Medical History / Comment(s): SLIGHT COPD. 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 CYSTS REMOVED FROM UNDER ARMS AND HANDS. 4 stents Past Anesthesia/Blood Transfusion Reactions: No Reported Reaction Date of Last Stent Placement:: nov 2017 Smoking Status: Current every day smoker - Past Family History Mother Family Medical History: Cancer Sister(s) Family Medical History: Cancer Medications and Allergies Home Medications Medication Instructions Recorded Confirmed Type Escitalopram [Lexapro] 40 mg PO DAILY 11/28/17 07/03/18 History Levothyroxine Sodium [Synthroid] 150 mcg PO DAILY 11/28/17 07/03/18 History Gabapentin [Neurontin] 800 mg PO TID 11/29/17 07/03/18 History Aspirin EC [Ecotrin Low Dose] 81 mg PO DAILY #30 tablet. 11/30/17 07/03/18 Rx Atorvastatin [Lipitor] 80 mg PO HS #30 tab 11/30/17 07/03/18 Rx Losartan [Cozaar] 50 mg PO DAILY #30 tab 11/30/17 07/03/18 Rx Nitroglycerin Sl Tabs [Nitrostat] 0.4 mg SUBLINGUAL Q5M PRN #25 tab 11/30/17 07/03/18 Rx Ticagrelor [Brilinta] 90 mg PO BID #60 tab 11/30/17 07/03/18 Rx Albuterol Inhaler [Ventolin Hfa 1 - 2 puff INHALATION RT-Q6H PRN 05/08/18 07/03/18 History Inhaler] Allergies Allergy/AdvReac Type Severity Reaction Status Date / Time ibuprofen [From Motrin] Allergy Unknown Verified 07/03/18 20:27 Physical Exam Vitals: Vital Signs Temp Pulse Pulse Resp BP BP Pulse Ox 07/04/18 04:00 16 07/04/18 03:47 98.2 F 79 16 134/73 97 07/04/18 03:41 70 07/04/18 03:31 107 H 07/04/18 00:00 16 07/03/18 23:54 98.2 F 75 16 128/63 93 L 07/03/18 20:00 18 07/03/18 19:53 98.0 F 80 18 164/75 92 L 07/03/18 17:20 97.9 F 86 16 138/90 98 07/03/18 15:45 65 07/03/18 15:41 97.7 F 75 18 165/67 98 Intake and Output 07/03/18 07/04/18 07/04/18 22:59 06:59 14:59 Intake Total 80.697 Balance 80.697 Intake: Intake, IV Titration 80.697 Amount Heparin Sod,Pork in 0.45% 80.697 NaCl 25,000 unit In 0.45 % NaCl 1 250ml.bag @ 12 UNITS/KG/HR 8.6 mls/hr IV .Q24H [facility] Rx#:[id number] Other: # Voids 1 Weight 71.668 kg - Constitutional General appearance: obese - EENT Eyes: EOMI - Respiratory Respiratory: right: wheezing, bilateral: diminished - Cardiovascular Rhythm: regular Heart sounds: normal: S1, S2 Abnormal Heart Sounds: no S3 Gallop - Gastrointestinal General gastrointestinal: soft, no tenderness - Neurologic Neurologic: CNII-XII intact - Musculoskeletal Musculoskeletal: generalized weakness - Psychiatric Psychiatric: A&O x's 3, appropriate affect Results CBC & Chem 7: 07/03/18 16:20 07/03/18 16:20 Labs: Abnormal Lab Results - Last 24 Hours (Table) 07/03/18 07/03/18 Range/Units 16:20 16:20 APTT 20.9 L (22.0-30.0) sec Potassium 5.3 H (3.5-5.1) mmol/L BUN 6 L (7-17) mg/dL Thrombosis Risk Factor Assmnt - Choose All That Apply Each Factor Represents 1 point: Age 41-60 years Thrombosis Risk Factor Assessment Total Risk Factor Score: 1 Thrombosis Risk Factor Assessment Level: Low Risk Assessment and Plan (1) Wheezing Current Visit: Yes Status: Acute Code(s): R06.2 - WHEEZING SNOMED Code(s): 83165736 (2) Tobacco abuse Current Visit: Yes Status: Acute Code(s): Z72.0 - TOBACCO USE SNOMED Code(s): 743710662 (3) CAD (coronary artery disease) Current Visit: Yes Status: Acute Code(s): I25.10 - ATHSCL HEART DISEASE OF [place] CORONARY ARTERY W/O ANG PCTRS SNOMED Code(s): 02404746 (4) Unstable angina pectoris Current Visit: Yes Status: Acute Code(s): I20.0 - UNSTABLE ANGINA SNOMED Code(s): 3969307 Plan: Myocardial infraction has been ruled out. Question need to decrease timetable to next stent placement. Cigarette cessation again discussed with the patient. Prognosis is somewhat guarded. We'll continue follow with cardiology. Anticipate discharge in next 24 hours.
[2018-07-04] MEDS: IPRATROPIUM-ALBUTEROL 3 ML NEB INHALATION PRN ×3 (08:14→15:39)
[2018-07-04] MEDS ORDERED: SODIUM CHLORIDE 0.9% 1,000 ML in EMPTY BAG 1 BAG IV ONE (08:42)
[2018-07-04] MEDS ORDERED: ASPIRIN 325 MG TAB PO SCH (09:00)
[2018-07-04] MEDS ORDERED: HEPARIN SODIUM,PORCINE 5,000 UNIT/ML 1 ML VIAL IV PRN (09:35)
[2018-07-04] MEDS: TICAGRELOR 90 MG TAB PO SCH ×2 (09:40→22:13)
[2018-07-04] MEDS: ASPIRIN 81 MG PO SCH (09:40)
[2018-07-04] MEDS: ESCITALOPRAM 20 MG TAB PO SCH (09:40)
[2018-07-04] MEDS: LOSARTAN 50 MG TAB PO SCH (09:41)
[2018-07-04] MEDS: GABAPENTIN 400 MG CAP PO SCH ×3 (09:41→22:13)
[2018-07-04] MEDS: ACETAMINOPHEN TAB 325 MG TAB PO PRN (09:53)
[2018-07-04] MEDS: LEVOTHYROXINE 75 MCG TAB PO SCH (10:11)
--- NOTE | 2018-07-04 11:23 | P.CRDCN ---
History of Present Illness History of present illness: This is a pleasant 58-year-old female past medical history significant for coronary artery disease status post recent stent placement 4 to the LAD, COPD, hypothyroidism, peripheral vascular disease, dyslipidemia, chronic nicotine dependence and hypertension. She follows in the office with Dr. Eduardo. We have been asked to see her in consultation for symptoms of chest discomfort. She states starting yesterday at rest she began having a sharp pressure-like pain in the midsternal region very similar to how she felt last year prior to having her stent placed. She states the pain comes with no specific aggravating cause and mostly is at rest. There is no radiation to the arm, back, neck or jaw. She denies associated shortness of breath, dizziness, nausea, vomiting, palpitations or diaphoresis. At home when she started having the discomfort for the first time she did take 3 sublingual nitroglycerin and her pain did seem to improve with each one she took. She did have another episode of chest pain around 0300 last night but went away on its own and was given no nitro. EKG on arrival sinus mechanism with sinus arrhythmia with left axis deviation and no ST or T-wave abnormalities. Chest xray reveals chronic changes without acute cardiopulmonary process. Laboratory data reviewed, WBC 9.7, hgb 13.6, plt 335, sodium 137, potassium on admission 5.3 repeat this morning 4.4, creatinine 0.6, magnesium 2.3, cardiac enzymes negative x3, LDL 64. Current cardiac medications include aspirin 81 mg daily, atorvastatin 80 mg daily, losartan 50 mg daily and brilinta 90 mg BID. At the time of my exam: CONSTITUTIONAL: Denies fever. Denies chills. EYES: Denies blurred vision. Denies vision changes. Denies eye pain. EARS, NOSE, MOUTH & THROAT: Denies headache. Denies sore throat. Denies ear pain. CARDIOVASCULAR: Denies chest pain. Denies shortness of breath. Denies orthopnea. Denies PND. Denies palpitations. RESPIRATORY: Denies cough. GASTROINTESTINAL: Denies abdominal pain. Denies diarrhea. Denies constipation. Denies nausea. Denies vomiting. MUSCULOSKELETAL: Denies myalgias. INTEGUMENTARY: Denies pruitis. Denies rash. NEUROLOGIC: Denies numbness. Denies tingling. Denies weakness. PSYCHIATRIC: Denies anxiety. Denies depression. ENDOCRINE: Denies fatigue. Denies weight change. Denies polydipsia. Denies polyurina. GENITOURINARY: Denies burning, hematuria or urgency with micturation. HEMATOLOGIC: Denies history of anemia. Denies bleeding. Blood pressure 159/59 heart rate 87 afebrile maintaining oxygen saturation on room air GENERAL: This is a 58-year-old female in no apparent distress at the time of my examination. HEENT: Head is atraumatic, normocephalic. Pupils are equal, round. Sclerae anicteric. Conjunctivae are clear. Mucous membranes of the mouth are moist. Neck is supple. There is no jugular venous distention. Bilateral carotid bruits is heard. LUNGS: Clear to auscultation no wheezes, rales or rhonchi. No chest wall tendern ess is noted on palpation or with deep breathing. HEART: Regular rate and rhythm with systolic ejection murmur at the base, no rubs or gallops. S1 and S2 heard. ABDOMEN: Soft, nontender. Bowel sounds are heard. No organomegaly noted. EXTREMITIES: No evidence of peripheral edema and no calf tenderness noted. VASCULAR: Radial and dorsalis pedis pulses palpated, no evidence of clubbing. NEUROLOGIC: Patient is awake, alert and oriented x3. ASSESSMENT Unstable angina with recent stent placement November 2017 on brilinta and aspirin Hypertension Dyslipidemia Peripheral vascular disease, carotid artery disease and calcified aortic arch. Plan for carotid artery stent 07/[address] Vale. COPD Chronic nicotine dependence PLAN Obtain 2D echocardiogram and doppler study to assess cardiac structure and function. Continue heparin infusion. Recommend proceeding with cardiac catheterization to assess for progression of CAD or possible in-stent restenosis. I have discussed the risks, benefits and alternative therapies for the above- mentioned procedure and for both sedation/analgesia as well as necessary blood product administration, if indicated, as they pertain to this patient. The bhumika ent has indicated understanding and acceptance of the risks and procedures discussed. Questions have been answered appropriately and she is agreeable to move forward with the above stated procedure. 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 Eduardo for tomorrow morning. Smoking cessation recommended, she states she has cut down to 1 cigarette/day. Further recommendations to follow based on clinical course. Thank you kindly for this consultation. Nurse Practitioner note has been reviewed, I agree with a documented findings and plan of care. Patient was seen and examined. Past Medical History Past Medical History: Asthma, Coronary Artery Disease (CAD), Chest Pain / Angina, COPD, Thyroid Disorder Additional Past Medical History / Comment(s): SLIGHT COPD. 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 CYSTS REMOVED FROM UNDER ARMS AND HANDS. 4 stents Past Anesthesia/Blood Transfusion Reactions: No Reported Reaction Date of Last Stent Placement:: nov 2017 Smoking Status: Current every day smoker - Past Family History Mother Family Medical History: Cancer Sister(s) Family Medical History: Cancer Medications and Allergies Home Medications Medication Instructions Recorded Confirmed Type Escitalopram [Lexapro] 40 mg PO DAILY 11/28/17 07/03/18 History Levothyroxine Sodium [Synthroid] 150 mcg PO DAILY 11/28/17 07/03/18 History Gabapentin [Neurontin] 800 mg PO TID 11/29/17 07/03/18 History Aspirin EC [Ecotrin Low Dose] 81 mg PO DAILY #30 tablet. 11/30/17 07/03/18 Rx Atorvastatin [Lipitor] 80 mg PO HS #30 tab 11/30/17 07/03/18 Rx Losartan [Cozaar] 50 mg PO DAILY #30 tab 11/30/17 07/03/18 Rx Nitroglycerin Sl Tabs [Nitrostat] 0.4 mg SUBLINGUAL Q5M PRN #25 tab 11/30/17 07/03/18 Rx Ticagrelor [Brilinta] 90 mg PO BID #60 tab 11/30/17 07/03/18 Rx Albuterol Inhaler [Ventolin Hfa 1 - 2 puff INHALATION RT-Q6H PRN 05/08/18 07/03/18 History Inhaler] Allergies Allergy/AdvReac Type Severity Reaction Status Date / Time ibuprofen [From Motrin] Allergy Unknown Verified 07/03/18 20:27 Physical Exam Vitals: Vital Signs Temp Pulse Pulse Pulse Resp BP BP 07/04/18 07:15 97.5 F L 87 18 159/59 07/04/18 04:00 16 07/04/18 03:47 98.2 F 79 16 134/73 07/04/18 03:41 70 07/04/18 03:31 107 H 07/04/18 00:00 16 07/03/18 23:54 98.2 F 75 16 128/63 07/03/18 20:00 18 07/03/18 19:53 98.0 F 80 18 164/75 07/03/18 17:20 97.9 F 86 16 138/90 07/03/18 15:45 65 07/03/18 15:41 97.7 F 75 18 165/67 Pulse Ox 07/04/18 07:15 93 L 07/04/18 04:00 07/04/18 03:47 97 07/04/18 03:41 07/04/18 03:31 07/04/18 00:00 07/03/18 23:54 93 L 07/03/18 20:00 07/03/18 19:53 92 L 07/03/18 17:20 98 07/03/18 15:45 07/03/18 15:41 98 Intake and Output 07/03/18 07/04/18 07/04/18 22:59 06:59 14:59 Intake Total 80.697 Balance 80.697 Intake: Intake, IV Titration 80.697 Amount Heparin Sod,Pork in 0.45% 80.697 NaCl 25,000 unit In 0.45 % NaCl 1 250ml.bag @ 12 UNITS/KG/HR 8.6 mls/hr IV .Q24H [facility] Rx#:[id number] Other: # Voids 1 Weight 71.668 kg Results 07/03/18 16:20 07/04/18 08:52 Cardiac Enzymes 07/03/18 07/03/18 07/03/18 Range/Units 16:20 16:20 21:32 AST 31 (14-36) U/L Troponin I <0.012 <0.012 (0.000-0.034) ng/mL 07/04/18 Range/Units 04:40 AST (14-36) U/L Troponin I <0.012 (0.000-0.034) ng/mL Coagulation 07/03/18 07/04/18 Range/Units 16:20 02:25 PT 9.8 (9.0-12.0) sec APTT 20.9 L 29.5 (22.0-30.0) sec Lipids 07/03/18 Range/Units 16:20 Triglycerides 129 (<150) mg/dL Cholesterol 130 (<200) mg/dL HDL Cholesterol 40 (40-60) mg/dL CBC 07/03/18 Range/Units 16:20 WBC 9.7 (3.8-10.6) k/uL RBC 4.47 (3.80-5.40) m/uL Hgb 13.6 (11.4-16.0) gm/dL Hct 42.8 (34.0-46.0) % Plt Count 335 (150-450) k/uL Comprehensive Metabolic Panel 07/03/18 Range/Units 16:20 Sodium 137 (137-145) mmol/L Potassium 5.3 H (3.5-5.1) mmol/L Chloride 105 (98-107) mmol/L Carbon Dioxide 23 (22-30) mmol/L BUN 6 L (7-17) mg/dL Creatinine 0.60 (0.52-1.04) mg/dL Glucose 86 (74-99) mg/dL Calcium 9.2 (8.4-10.2) mg/dL AST 31 (14-36) U/L ALT 20 (9-52) U/L Alkaline Phosphatase 100 (38-126) U/L Total Protein 7.8 (6.3-8.2) g/dL Albumin 4.4 (3.5-5.0) g/dL Current Medications Generic Name Dose Route Start Last Admin Trade Name Freq PRN Reason Stop Dose Admin Acetaminophen 650 mg 07/03/18 20:40 07/03/18 20:45 Tylenol Tab PO 650 mg Q4HR PRN Administration Fever and/ or Mild Pain Albuterol Sulfate 2.5 mg 07/04/18 07:31 Ventolin Nebulized INHALATION RT-Q6H PRN Dyspnea Albuterol/Ipratropium 3 ml 07/04/18 07:33 Duoneb 0.5 Mg-3 Mg/3 Ml Soln INHALATION RT-QID PRN Shortness Of Breath Or Wheezing Aspirin 325 mg 07/04/18 09:00 Aspirin PO DAILY [facility] Atorvastatin Calcium 80 mg 07/04/18 21:00 Lipitor PO HS [facility] Escitalopram Oxalate 40 mg 07/04/18 09:00 Lexapro PO DAILY [facility] Gabapentin 800 mg 07/04/18 09:00 Neurontin PO TID [facility] Guaifenesin 200 mg 07/04/18 02:22 07/04/18 03:26 Robitussin PO 200 mg Q6H PRN Administration Cough Heparin Sodium/Sodium Chloride 250 mls @ 8.6 mls/hr 07/03/18 17:30 07/04/18 03:26 25,000 unit/ Sodium Chloride IV 15 units/kg/hr .Q24H [facility] 10.75 mls/hr Titration Protocol 12 UNITS/KG/HR Levothyroxine Sodium 150 mcg 07/04/18 07:45 Synthroid PO DAILY@0630 [facility] Losartan Potassium 50 mg 07/04/18 09:00 Cozaar PO DAILY [facility] Nitroglycerin 1 inch 07/04/18 00:00 07/04/18 04:31 Nitro-Bid Oint TOPICAL Not Given Q6HR [facility] Nitroglycerin 0.4 mg 07/03/18 17:18 Nitrostat SUBLINGUAL Q5M PRN Chest Pain Intake and Output 07/03/18 07/04/18 07/04/18 22:59 06:59 14:59 Intake Total 80.697 Balance 80.697 Intake: Intake, IV Titration 80.697 Amount Heparin Sod,Pork in 0.45% 80.697 NaCl 25,000 unit In 0.45 % NaCl 1 250ml.bag @ 12 UNITS/KG/HR 8.6 mls/hr IV .Q24H [facility] Rx#:[id number] Other: # Voids 1 Weight 71.668 kg 07/03/18 16:20 07/03/18 16:20
[2018-07-04] MEDS: HEPARIN SOD,PORK IN 0.45% NACL 25,000 UNIT in 0.45% NACL 1 250ML.BAG IV SCH (18:12)
[2018-07-04] MEDS ORDERED: ATORVASTATIN 80 MG TAB PO SCH (21:00)
[2018-07-04 23:56] VITALS: RESP 18
[2018-07-05] MEDS: NITROGLYCERIN OINT 1 INCH/GM PACKET TOPICAL SCH ×3 (01:15→12:59)
[2018-07-05] MEDS: IPRATROPIUM-ALBUTEROL 3 ML NEB INHALATION PRN ×2 (04:05→10:35)
[2018-07-05] MEDS: LEVOTHYROXINE 75 MCG TAB PO SCH (07:55)
[2018-07-05] MEDS: ESCITALOPRAM 20 MG TAB PO SCH (07:55)
[2018-07-05] MEDS: LOSARTAN 50 MG TAB PO SCH (07:55)
[2018-07-05] MEDS: GABAPENTIN 400 MG CAP PO SCH (07:55)
[2018-07-05] MEDS: TICAGRELOR 90 MG TAB PO SCH (07:55)
[2018-07-05] MEDS: ASPIRIN 81 MG PO SCH (07:55)
--- NOTE | 2018-07-05 08:40 | PN ---
PROGRESS NOTE Mrs Chang is a lady who came in yesterday with chest pain suggestive of angina. She has history of prior LAD stenting. She is comfortable this morning, but given her symptoms and presentation, I am recommending coronary angiography. Dr. Pepper Eduardo will perform the cardiac cath and if intervention is necessary, Dr. Vale will do will be doing the procedure. She is resting comfortably without symptoms. Echo revealed preserved systolic function. Vital signs are normal. S1, S2 heard normally. Short systolic murmur is noted. Lungs are clear. Abdomen and lower exam is unchanged. Patient also has some left subclavian disease as well. MMODL / IJN: [id number] /
[2018-07-05 11:29] VITALS: BP 145/73; TEMP 98
[2018-07-05 11:52] VITALS: PULSE 88
[2018-07-05] MEDS: ACETAMINOPHEN TAB 325 MG TAB PO PRN (12:13)
--- NOTE | 2018-07-07 09:09 | ECHOF ---
Referral Reason:cp MEASUREMENTS -------- HEIGHT: 162.6 cm WEIGHT: 71.7 kg BP: 159/59 RVIDd: 2.9 cm (< 3.3) IVSd: 1.3 cm (0.6 - 1.1) LVIDd: 4.0 cm (3.9 - 5.3) LVPWd: 1.4 cm (0.6 - 1.1) IVSs: 1.9 cm LVIDs: 2.6 cm LVPWs: 1.6 cm LA Diam: 3.4 cm (2.7 - 3.8) LAESV Index (A-L): 21.54 ml/m Ao Diam: 3.3 cm (2.0 - 3.7) AV Cusp: 1.8 cm (1.5 - 2.6) MV EXCURSION: 12.495 mm (> 18.000) MV EF SLOPE: 52 mm/s (70 - 150) EPSS: 0.3 cm MV E Brice: 1.16 m/s MV DecT: 211 ms MV A Brice: 1.25 m/s MV E/A Ratio: 0.93 FINDINGS -------- Sinus rhythm. This was a technically adequate study. The left ventricular size is normal. There is moderate concentric left ventricular hypertrophy. O verall left ventricular systolic function is normal with, an EF between 55 - 60 %. The right ventricle is normal in size. Normal LA size by volume 22+/-6 ml/m2. The right atrium is normal in size. The aortic valve is trileaflet and appears structurally normal. Mild mitral annular calcification present. The tricuspid valve appears structurally normal. There is no pulmonic regurgitation present. The aortic root size is normal. Normal inferior vena cava with normal inspiratory collapse consistent with estimated right atrial pre ssure of 5 mmHg. There is no pericardial effusion. CONCLUSIONS -------- 1. Sinus rhythm. 2. This was a technically adequate study. 3. The left ventricular size is normal. 4. There is moderate concentric left ventricular hypertrophy. 5. Overall left ventricular systolic function is normal with, an EF between 55 - 60 %. 6. The right ventricle is normal in size. 7. Normal LA size by volume 22+/-6 ml/m2. 8. The right atrium is normal in size. 9. The aortic valve is trileaflet and appears structurally normal. 10. Mild mitral annular calcification present. 11. The tricuspid valve appears structurally normal. 12. There is no pulmonic regurgitation present. 13. The aortic root size is normal. 14. Normal inferior vena cava with normal inspiratory collapse consistent with estimated right atrial pressure of 5 mmHg. 15. There is no pericardial effusion. [employer] OPERATOR: Esha Simmons RDCS
== END 2018-07-05 13:35 | disposition home or self-care (01) ==
LOC: EC 15:39 → 1SOBS 17:19
PROVIDERS: ADMIT Family Medicine; ATTEND Family Medicine
DX: I25.110 Atherosclerotic heart disease of native coronary artery with unstable angina pectoris (principal); E03.9 Hypothyroidism, unspecified; E78.00 Pure hypercholesterolemia, unspecified; E78.5 Hyperlipidemia, unspecified; I10 Essential (primary) hypertension; F32.9 Major depressive disorder, single episode, unspecified; J44.9 Chronic obstructive pulmonary disease, unspecified; I73.9 Peripheral vascular disease, unspecified; G62.9 Polyneuropathy, unspecified; F17.210 Nicotine dependence, cigarettes, uncomplicated; Z71.6 Tobacco abuse counseling; Z95.5 Presence of coronary angioplasty implant and graft; Z90.710 Acquired absence of both cervix and uterus; Z79.899 Other long term (current) drug therapy; Z79.890 Hormone replacement therapy; Z79.82 Long term (current) use of aspirin; Z79.02 Long term (current) use of antithrombotics/antiplatelets; Z82.49 Family history of ischemic heart disease and other diseases of the circulatory system
CPT/HCPCS: 96366 ×3; 96376 ×2; 96365; 99291; 36415; 94640 ×3; 93005; 93306; 80061; 80053; 83735; 84132; 84484 ×2; 85025; 85610; 85730 ×3; 71046; G0378 ×3; J1644 ×4

== ENCOUNTER 2018-07-11 04:40 | Emergency (ER) | payer MEDICARE ==
[2018-07-11] MEDS ORDERED: SODIUM CHLORIDE 0.9% 500 ML 500 ML IV STA (04:42)
--- NOTE | 2018-07-11 04:46 | ED ---
General Adult HPI - General Stated complaint: Seizure Time Seen by Provider: 07/11/18 04:42 Source: patient, EMS, RN notes reviewed, old records reviewed - History of Present Illness Initial comments: 58-year-old female presents for evaluation of generalized shaking, concern for seizure. Initial call to EMS was for suspected seizure. Patient had tremor and shaking which began in the left lower extremity. First episode was not witnessed by EMS. Second episode was during transport. She was alert during this episode according to EMS. She did have increased muscle rigidity an increased heart rate up to 170. She has no previous history of seizure disorder. She was recently seen in the hospital for chest pain with history of coronary artery disease. She states that since time of discharge approximately one week ago she's had nausea vomiting and diarrhea. Denies abdominal pain. She does report subjective fever and chills. Patient complains of a mild generalized headache which is been present for several days as well. No cough or URI symptoms. No chest pain or dyspnea. - Related Data Home Medications Medication Instructions Recorded Confirmed Escitalopram [Lexapro] 40 mg PO DAILY 11/28/17 07/10/18 Levothyroxine Sodium [Synthroid] 150 mcg PO DAILY 11/28/17 07/10/18 Gabapentin [Neurontin] 800 mg PO TID 11/29/17 07/10/18 Albuterol Inhaler [Ventolin Hfa 1 - 2 puff INHALATION RT-Q6H PRN 05/08/18 07/10/18 Inhaler] Previous Rx's Medication Instructions Recorded Aspirin EC [Ecotrin Low Dose] 81 mg PO DAILY #30 tablet. 11/30/17 Atorvastatin [Lipitor] 80 mg PO HS #30 tab 11/30/17 Losartan [Cozaar] 50 mg PO DAILY #30 tab 11/30/17 Nitroglycerin Sl Tabs [Nitrostat] 0.4 mg SUBLINGUAL Q5M PRN #25 tab 11/30/17 Ticagrelor [Brilinta] 90 mg PO BID #60 tab 11/30/17 Allergies Allergy/AdvReac Type Severity Reaction Status Date / Time ibuprofen [From Motrin] Allergy Unknown Verified 07/10/18 10:20 Review of Systems ROS Statement: Those systems with pertinent positive or pertinent negative responses have been documented in the HPI. ROS Other: All systems not noted in ROS Statement are negative. Past Medical History Past Medical History: Asthma, Coronary Artery Disease (CAD), Chest Pain / Angina, COPD, Thyroid Disorder Additional Past Medical History / Comment(s): SLIGHT COPD. 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 CYSTS REMOVED FROM UNDER ARMS AND HANDS. 4 stents Past Anesthesia/Blood Transfusion Reactions: No Reported Reaction Date of Last Stent Placement:: nov 2017 Past Psychological History: Depression Smoking Status: Current every day smoker Additional Past Alcohol Use History / Comment(s): SMOKES 1@ [employer] SINCE AGE 11 - Past Family History Mother Family Medical History: Cancer Sister(s) Family Medical History: Cancer General Exam General appearance: alert, in no apparent distress Head exam: Present: atraumatic, normocephalic Eye exam: Present: normal appearance, PERRL ENT exam: Present: mucous membranes dry Neck exam: Present: normal inspection. Absent: tenderness, meningismus Respiratory exam: Present: normal lung sounds bilaterally. Absent: respiratory distress, wheezes Cardiovascular Exam: Present: normal rhythm, tachycardia GI/Abdominal exam: Present: soft. Absent: distended, tenderness Extremities exam: Present: normal inspection, normal capillary refill. Absent: pedal edema Neurological exam: Present: alert, oriented X3, CN II-XII intact. Absent: motor sensory deficit Psychiatric exam: Present: normal affect, normal mood Skin exam: Present: warm, dry, intact. Absent: cyanosis, diaphoretic Course Vital Signs 07/11/18 07/11/18 04:44 06:02 Temperature 98.5 F Pulse Rate 94 87 Respiratory 16 20 Rate Blood Pressure 148/84 168/86 O2 Sat by Pulse 96 96 Oximetry - Reevaluation(s) Reevaluation #1: 07/11/18 06:10 Patient reevaluated, vital signs improved, nonfocal exam. EKG Findings - EKG Comments: EKG Findings:: EKG: Sinus tachycardia, left anterior fascicular block, rate of 142, MT interval 124, QRS duration 94, QTC 491. No ST segment elevation. Medical Decision Making - Medical Decision Making 58-year-old female presenting with suspected new onset seizure. EMS did report increased muscle rigidity, tremor which begins in the left lower extremity, this was associated with tachycardia. Initial vitals in the emergency department revealed tachycardia to 140. Blood pressure is stable. She has a nonfocal neurologic exam. Head CT is obtained is negative for scleral hemorrhage, no mass effect. Patient has mild leukocytosis 12.6, stable hemoglobin, normal electrolytes. Lactic acid is 7.7, this is consistent with seizure activity. Patient is given 2 L normal saline, initiated on Keppra. Patient will require admission for new onset seizure, dehydration, intractable nausea vomiting. There is no neurology at this institution and patient will be transferred. Patient transferred to [facility], accepting physician Dr. Lezama - Lab Data Result diagrams: 07/11/18 04:55 07/11/18 05:33 Lab Results 07/11/18 07/11/18 07/11/18 Range/Units 04:55 04:55 04:55 WBC 12.6 H (3.8-10.6) k/uL RBC 4.86 (3.80-5.40) m/uL Hgb 15.5 (11.4-16.0) gm/dL Hct 46.2 H (34.0-46.0) % MCV 95.0 (80.0-100.0) fL MCH 31.8 (25.0-35.0) pg MCHC 33.5 (31.0-37.0) g/dL RDW 14.8 (11.5-15.5) % Plt Count 405 (150-450) k/uL Neutrophils % 78 % Lymphocytes % 17 % Monocytes % 3 % Eosinophils % 1 % Basophils % 0 % Neutrophils # 9.9 H (1.3-7.7) k/uL Lymphocytes # 2.1 (1.0-4.8) k/uL Monocytes # 0.4 (0-1.0) k/uL Eosinophils # 0.1 (0-0.7) k/uL Basophils # 0.0 (0-0.2) k/uL PT 10.2 (9.0-12.0) sec INR 1.0 (<1.2) APTT 20.5 L (22.0-30.0) sec Sodium (137-145) mmol/L Potassium (3.5-5.1) mmol/L Chloride (98-107) mmol/L Carbon Dioxide (22-30) mmol/L Anion Gap mmol/L BUN (7-17) mg/dL Creatinine (0.52-1.04) mg/dL Est GFR (CKD-EPI)AfAm (>60 ml/min/1.73 sqM) Est GFR (CKD-EPI)NonAf (>60 ml/min/1.73 sqM) Glucose (74-99) mg/dL Plasma Lactic Acid Stepan 7.7 H* (0.7-2.0) mmol/L Calcium (8.4-10.2) mg/dL Magnesium (1.6-2.3) mg/dL Total Bilirubin (0.2-1.3) mg/dL AST (14-36) U/L ALT (9-52) U/L Alkaline Phosphatase (38-126) U/L Total Protein (6.3-8.2) g/dL Albumin (3.5-5.0) g/dL 07/11/18 Range/Units 05:33 WBC (3.8-10.6) k/uL RBC (3.80-5.40) m/uL Hgb (11.4-16.0) gm/dL Hct (34.0-46.0) % MCV (80.0-100.0) fL MCH (25.0-35.0) pg MCHC (31.0-37.0) g/dL RDW (11.5-15.5) % Plt Count (150-450) k/uL Neutrophils % % Lymphocytes % % Monocytes % % Eosinophils % % Basophils % % Neutrophils # (1.3-7.7) k/uL Lymphocytes # (1.0-4.8) k/uL Monocytes # (0-1.0) k/uL Eosinophils # (0-0.7) k/uL Basophils # (0-0.2) k/uL PT (9.0-12.0) sec INR (<1.2) APTT (22.0-30.0) sec Sodium 140 (137-145) mmol/L Potassium 3.5 (3.5-5.1) mmol/L Chloride 108 H (98-107) mmol/L Carbon Dioxide 19 L (22-30) mmol/L Anion Gap 13 mmol/L BUN 15 (7-17) mg/dL Creatinine 0.90 (0.52-1.04) mg/dL Est GFR (CKD-EPI)AfAm 81 (>60 ml/min/1.73 sqM) Est GFR (CKD-EPI)NonAf 71 (>60 ml/min/1.73 sqM) Glucose 143 H (74-99) mg/dL Plasma Lactic Acid Stepan (0.7-2.0) mmol/L Calcium 9.6 (8.4-10.2) mg/dL Magnesium 2.0 (1.6-2.3) mg/dL Total Bilirubin 0.5 (0.2-1.3) mg/dL AST 26 (14-36) U/L ALT 32 (9-52) U/L Alkaline Phosphatase 114 (38-126) U/L Total Protein 7.9 (6.3-8.2) g/dL Albumin 4.8 (3.5-5.0) g/dL Disposition Clinical Impression: New onset seizure, Dehydration, Intractable nausea and vomiting Disposition: OTHER INSTITUTION NOT DEFINED Condition: Stable Is patient prescribed a controlled substance at d/c from ED?: No Referrals: Jose F Mcwilliams MD [Primary Care Provider] - 1-2 days Time of Disposition: 06:15 - Out of Hospital Transfer - Req. Specs Out of Hospital Transfer - Requested Specifics: Other Emergency Center (Transferred to [facility])
[2018-07-11] MEDS ORDERED: SODIUM CHLORIDE 0.9% 1,000 ML IV ONE (04:50)
[2018-07-11] MEDS ORDERED: METOCLOPRAMIDE 5 MG/ML 2 ML VIAL IVP STA (04:50)
[2018-07-11] MEDS ORDERED: diphenhydrAMINE 50 MG/ML 1 ML VIAL IVP STA (04:51)
[2018-07-11 05:07] LABS: Basophils % (A) 0 %; Eosinophils # (A) 0.1 k/uL (0-0.7); Eosinophils % (A) 1 %; HCT 46.2 % (34.0-46.0); HGB 15.5 gm/dL (11.4-16.0); Lymphocytes # (A) 2.1 k/uL (1.0-4.8); Lymphocytes % (A) 17 %; MCH 31.8 pg (25.0-35.0); MCHC 33.5 g/dL (31.0-37.0); Mean Platelet Volume 8.9; Monocytes # (A) 0.4 k/uL (0-1.0); Monocytes % (A) 3 %; Neutrophils # (A) 9.9 k/uL (1.3-7.7); Neutrophils % (A) 78 %; Platelet Count 405 k/uL (150-450); RBC 4.86 m/uL (3.80-5.40); RDW 14.8 % (11.5-15.5); WBC 12.6 k/uL (3.8-10.6)
--- NOTE | 2018-07-11 05:38 | CT ---
EXAM: CT Head Without Intravenous Contrast CLINICAL HISTORY: ITS.REASON CT Reason: weakness TECHNIQUE: Axial computed tomography images of the head/brain without intravenous contrast. CTDI is 49 mGy and DLP is 1087 mGy-cm. This CT exam was performed using one or more of the following dose reduction techniques: automated exposure control, adjustment of the mA and/or kV according to patient size, and/or use of iterative reconstruction technique. COMPARISON: MR brain 04/01/18 FINDINGS: Brain: No hemorrhage, large hypodensity, or mass effect. Ventricles: No hydrocephalus. Bones/joints: Unremarkable. Soft tissues: Unremarkable. Sinuses: Unremarkable. Mastoid air cells: Clear. IMPRESSION: No acute hemorrhage, hydrocephalus, or mass effect.
--- NOTE | 2018-07-11 05:41 | XR ---
EXAM: XR Chest, 2 Views CLINICAL HISTORY: ITS.REASON XR Reason: Weakness TECHNIQUE: Frontal and lateral views of the chest. COMPARISON: 07/03/18 chest x-ray FINDINGS: Lungs: No consolidation or mass. Pleural space: No effusion. Heart: No cardiomegaly. Mediastinum: Unremarkable. Bones/joints: No acute findings. IMPRESSION: No acute cardiopulmonary process.
--- NOTE | 2018-07-11 05:41 | XR ---
EXAM: XR Abdomen, 1 View CLINICAL HISTORY: ITS.REASON XR Reason: Pain TECHNIQUE: Frontal supine view of the abdomen/pelvis. COMPARISON: No relevant prior studies available. FINDINGS: Gastrointestinal tract: Nonspecific bowel gas pattern. No dilation. Bones/joints: No acute fracture. No dislocation. IMPRESSION: Unremarkable abdominal x-ray.
[2018-07-11 05:44] LABS: Prothrombin Time 10.2 sec (9.0-12.0)
[2018-07-11 05:46] LABS: Partial Thromboplastin Time 20.5 sec (22.0-30.0)
[2018-07-11 05:56] LABS: Albumin 4.8 g/dL (3.5-5.0); Calcium 9.6 mg/dL (8.4-10.2); Potassium 3.5 mmol/L (3.5-5.1); Total Bilirubin 0.5 mg/dL (0.2-1.3); Total Protein 7.9 g/dL (6.3-8.2)
[2018-07-11] MEDS ORDERED: levETIRAcetam IV 1,000 MG in SALINE 1 100ML.BAG IVPB STA (05:57)
[2018-07-11] MEDS ORDERED: SODIUM CHLORIDE 0.9% 500 ML 500 ML IV ONE (05:57)
[2018-07-11] MEDS ORDERED: POTASSIUM CHLORIDE ER 20 MEQ TAB.ER PO STA (06:00)
[2018-07-11 06:04] VITALS: TEMP 98.5
[2018-07-11 06:33] LABS: Amorphous Sediment,Urine Occasional /hpf; Appearance,Urine Cloudy (Clear); Bacteria,Urine Rare /hpf; Bilirubin,Urine Negative (Negative); Blood,Urine Small (Negative); Color,Urine Yellow; Glucose,Urine (UA) Negative (Negative); Hyaline Casts,Urine 3 /lpf (0-2); Ketones,Urine 1+ (Negative); Leukocyte Esterase,Urine Negative (Negative); Mucus,Urine Rare /hpf; Nitrite,Urine Positive (Negative); PH, Urine 6.5 (5.0-8.0); Protein,Urine 2+ (Negative); RBC,Urine 4 /hpf (0-5); Specific Gravity,Urine 1.014 (1.001-1.035); Squamous Epithelial Cell,Urine 4 /hpf (0-4); Urobilinogen,Urine <2.0 mg/dL (<2.0); WBC,Urine 8 /hpf (0-5)
[2018-07-11 07:27] VITALS: BP 163/69; PULSE 92; RESP 15
== END 2018-07-11 07:24 | disposition other institution (70) ==
LOC: EC 04:40
DX: R56.9 Unspecified convulsions (principal); E86.0 Dehydration; R11.2 Nausea with vomiting, unspecified; J44.9 Chronic obstructive pulmonary disease, unspecified; E07.9 Disorder of thyroid, unspecified; G62.9 Polyneuropathy, unspecified; F32.9 Major depressive disorder, single episode, unspecified; F17.210 Nicotine dependence, cigarettes, uncomplicated; Z95.5 Presence of coronary angioplasty implant and graft; Z79.890 Hormone replacement therapy; Z79.899 Other long term (current) drug therapy; Z88.6 Allergy status to analgesic agent
CPT/HCPCS: 36415; 93005; 80053; 83605; 83735; 85025; 85610; 85730; 81001; 71046; 74018; 70450; 99285; 96365; 96375 ×2; 96361; J1200; J2765; J1953

== ENCOUNTER 2018-07-18 08:11 | Day surgery (SDC) | payer MEDICARE ==
[~2018-07-18 08:11] MED LIST changes: +ALPRAZolam 0.5 MG TAB PO PRN; +ATORVASTATIN 80 MG TAB PO STA; -IOPAMIDOL-250 100ML BTL INTRAARTER ONE; -LIDOCAINE 1% INJ 10MG/ML (20 ML MDV) SQ ONE; -MIDAZOLAM 2 MG/2 ML VIAL IV ONE; +NITROGLYCERIN SL TABS 0.4 MG TAB SUBLINGUAL PRN; +SODIUM CHLORIDE 0.9% 1,000 ML IV ONE; -SODIUM CHLORIDE 0.9% 1,000 ML IV SCH
[2018-07-18] MEDS ORDERED: MIDAZOLAM (PF) 2 MG/2 ML VIAL IV ONE ×2 (09:13→09:57)
[2018-07-18] MEDS ORDERED: LIDOCAINE 1% INJ 10MG/ML (20 ML MDV) SQ ONE (09:27)
[2018-07-18] MEDS: fentaNYL (PF) 50 MCG/ML 2 ML AMP IV ONE ×2 (09:32→10:21)
[2018-07-18] MEDS ORDERED: HEPARIN SODIUM 1,000 UN/ML (10ML VL) IV ONE (09:53)
[2018-07-18] MEDS ORDERED: NITROGLYCERIN SL TABS 0.4 MG TAB SUBLINGUAL PRN (10:38)
[2018-07-18] MEDS ORDERED: IOPAMIDOL-370 125ML BTL INJ ONE (10:43)
[2018-07-18] MEDS ORDERED: SODIUM CHLORIDE 0.9% 1,000 ML IV SCH (10:45)
--- NOTE | 2018-07-18 11:01 | LTR ---
DATE OF SERVICE: 07/18/2018 RE: Lidia Chang Dear Dr. Mcwilliams; Ms. Lidia Chang underwent today successful stenting of the left subclavian with good angiographic results and without any complication. I want to thank you for allowing me to participate in her care and please do not hesitate to call if you have any question or concern. Sincerely, MD PILI Ordaz / ELISHA: [id number] /
--- NOTE | 2018-07-18 11:01 | CC ---
CARDIAC CATHETERIZATION REPORT DATE OF SERVICE: 07/18/2018 PERFORMING PHYSICIAN: Karthik Vale MD, Lab Scientist. PROCEDURE PERFORMED: 1. Selective right and left coronary angiogram. 2. Left heart catheterization. INDICATION: This is a pleasant 58-year-old female patient who sees Dr. Eduardo in the office as an outpatient with known history of coronary artery disease and prior stenting of the left anterior descending artery was experiencing chest discomfort. She was brought today to undergo left subclavian stenting and because of that Dr. Eduardo has asked me to perform a heart catheterization on the patient at the same setting. APPROACH: Right common femoral artery. COMPLICATION: None. LEVEL OF SEDATION: Moderate sedation length of 12 minutes. PROCEDURE DESCRIPTION: I did selective left and right coronary angiogram using JL4 and JR4 catheter. Left heart catheterization was performed using the JR4 catheter which flipped into the LV then I did pullback across aortic valve. The procedure was completed without any complication. SELECTIVE CORONARY ANGIOGRAM: 1. The right coronary artery is a moderate caliber vessel and it is a dominant vessel. The RCA has mild disease only. Distally bifurcates into PDA and PLV branches, both appeared to be angiographically normal. 2. The left main is angiographically normal, it bifurcates into the left circumflex, ramus intermedius, and left anterior descending artery. 3. The left circumflex is a large caliber vessel. It is a nondominant vessel with mild disease in the midportion. 4. The ramus intermedius is a large caliber vessel, seems to be angiographically normal. 5. The LAD, the proximal LAD appeared to have mild disease only. The mid LAD is stented with a long area of stenting and seems to be normal. The LAD distally appeared to be normal. HEMODYNAMICS: The left ventricular end-diastolic pressure was about 10 mmHg without gradient across the aortic valve. CONCLUSION: Patent stent in the mid left anterior descending artery. POSTPROCEDURE MANAGEMENT: 1. Maximize medical treatment. 2. Follow up with the patient. MMODL / IJN: [id number] /
--- NOTE | 2018-07-18 11:16 | PTCA ---
PERCUTANEOUSTRANS CORORONARY ANGIOGRAPHY DATE OF SERVICE: 07/18/2018 PERFORMING PHYSICIAN: Karthik Vale MD, Mobility Architect. PROCEDURE PERFORMED: 1. Selective left subclavian angiogram. 2. Pressure gradient across the left subclavian artery. 3. Successful stenting of the left subclavian using 6.0 x 40 mm self expandable stent with an excellent angiographic results. INDICATION: This is a 58-year-old female patient who sees Dr. Eduardo in the office as an outpatient and sees Dr. Mcwilliams, who was experiencing left arm discomfort. She underwent a CT scan which revealed intermediate to severe left subclavian stenosis. Initially, she was treated medically. She continues to have left arm numbness and because of that, she was brought to undergo left subclavian stenting. APPROACH: Right common femoral artery. COMPLICATION: None. LEVEL OF SEDATION: Moderate with sedation length of 50 minutes. PROCEDURE DESCRIPTION: After obtaining an informed consent, the patient was brought to the cardiac lab associate. The right common femoral artery was cannulated using micropuncture technique, the micropuncture wire passed easily then I placed a 6-Mosotho sheath 11 cm in the right common femoral artery. After that, I did select the left subclavian using a Isabel catheter. I did selective left subclavian angiogram which revealed mild disease involving the ostial left subclavian with intermediate to severe disease involving the mid left subclavian and because of that, I decided to pressure gradient across also across the left subclavian. At that point, I did start anticoagulation with heparin. The patient was given 6000 units of heparin IV. After that, I did wire the left subclavian using 0.035 Glidewire. Then I did advanced an 0.035 Quick-Cross catheter distal to the lesion in the left subclavian, then it was pulled back proximal to the lesion in the mid left subclavian and the gradient came into be about 20 mmHg and because of that, I decided to stent the left subclavian. At that point, I did rewire the left subclavian again using 0.035 [place] Advantage. Then I did exchange my 11 cm 6-Mosotho sheath into 70 into a 90 cm 6-Mosotho sheath. The sheath was positioned in the ostial left subclavian. I did balloon angioplasty using 4 mm x 40 mm x x 20 mm balloon before I deployed 6 x 40 mm self expandable stent with what which was post dilated using 5 mm balloon. The following angiogram showed good angiographic results and the procedure was completed without any complication postprocedure management. 1. Dual anti-platelet therapy. 2. Risk factor modifications. 3. Follow up with the patient. PILI / ELISHA: [id number] /
[2018-07-18] MEDS: GABAPENTIN 400 MG CAP PO SCH ×2 (16:40→20:50)
[2018-07-18 17:06] VITALS: BMI 27.8
[2018-07-18] MEDS: levETIRAcetam 500 MG TAB PO SCH (20:49)
[2018-07-18] MEDS: TICAGRELOR 90 MG TAB PO SCH (20:50)
[2018-07-18] MEDS ORDERED: ATORVASTATIN 80 MG TAB PO SCH (21:00)
[2018-07-19 05:02] VITALS: TEMP 98
[2018-07-19] MEDS ORDERED: LEVOTHYROXINE 75 MCG TAB PO SCH (06:30)
[2018-07-19 06:48] LABS: Basophils # (A) 0.1 k/uL (0-0.2); Basophils % (A) 1 %; Eosinophils # (A) 0.4 k/uL (0-0.7); Eosinophils % (A) 4 %; HCT 39.6 % (34.0-46.0); Lymphocytes # (A) 2.8 k/uL (1.0-4.8); Lymphocytes % (A) 28 %; MCH 30.8 pg (25.0-35.0); MCHC 31.4 g/dL (31.0-37.0); MCV 98.1 fL (80.0-100.0); Monocytes # (A) 0.7 k/uL (0-1.0); Monocytes % (A) 7 %; Neutrophils # (A) 5.7 k/uL (1.3-7.7); Neutrophils % (A) 57 %; Platelet Count 353 k/uL (150-450); RBC 4.04 m/uL (3.80-5.40); RDW 14.6 % (11.5-15.5)
[2018-07-19 07:04] LABS: Anion Gap 7 mmol/L; Blood Urea Nitrogen 14 mg/dL (7-17); Calcium 9.3 mg/dL (8.4-10.2); Carbon Dioxide 28 mmol/L (22-30); Chloride 105 mmol/L (98-107); Glucose 109 mg/dL (74-99); Potassium 5.1 mmol/L (3.5-5.1); Sodium 140 mmol/L (137-145)
[2018-07-19 07:05] LABS: HGB 12.4 gm/dL (11.4-16.0)
[2018-07-19] MEDS: GABAPENTIN 400 MG CAP PO SCH (08:36)
[2018-07-19] MEDS: levETIRAcetam 500 MG TAB PO SCH (08:37)
[2018-07-19] MEDS: TICAGRELOR 90 MG TAB PO SCH (08:37)
[2018-07-19 08:41] VITALS: RESP 16
[2018-07-19] MEDS ORDERED: ASPIRIN 81 MG PO SCH (09:00)
[2018-07-19] MEDS ORDERED: ESCITALOPRAM 20 MG TAB PO SCH (09:00)
[2018-07-19] MEDS ORDERED: LOSARTAN 50 MG TAB PO SCH (09:00)
--- NOTE | 2018-07-19 09:33 | IR ---
EXAMINATION TYPE: IR stent intravas non coronary DATE OF EXAM: 07/18/2018 COMPARISON: NONE HISTORY: Fluoroscopy time. Fluoroscopy was provided to the referring clinician.
[2018-07-19 12:20] VITALS: BP 103/52; PULSE 77
--- NOTE | 2018-07-19 12:28 | P.PN ---
Subjective Progress Note Date: 07/19/18 Discharge note This is a pleasant 58-year-old female who follows regularly with Dr. VC Eduardo in the office. She has a known history of coronary artery disease with prior LAD stenting. She was experiencing chest discomfort and was brought in to undergo left subclavian stenting and because of that asked Dr. Evans to perform a heart cath at the same setting. Cardiac catheterization revealed a patent stent in the mid LAD and medical therapy was advised. Patient also underwent left subclavian stenting. She was seen and examined this morning, feels well, denies any chest discomfort, and her breathing overall is stable. Blood pressure this morning 108/60 with a heart rate in the 70s to 80s, 94% on room air. White blood cell count 10.0, hemoglobin 12.4, platelet count 353. Sodium 140, potassium 5.1, BUN 14 and creatinine 0.7. Objective - Vital Signs Vital signs: Vital Signs Temp 98.0 F 07/19/18 04:15 Pulse 88 07/19/18 08:00 Resp 16 07/19/18 12:00 BP 107/53 07/19/18 08:00 Pulse Ox 94 L 07/19/18 08:00 Intake & Output 07/18/18 07/19/18 07/19/18 18:59 06:59 18:59 Intake Total 1340 480 Output Total 50 Balance 1290 480 Weight 79.6 kg Intake: IV 700 Intake, IV Titration 400 Amount Sodium Chloride 0.9% 1, 400 000 ml @ 100 mls/hr IV . Q10H VINICIO Rx#:[id number] Oral 240 480 Output: Urine 50 Other: # Voids 1 1 - Exam PHYSICAL EXAMINATION: GENERAL: 89-year-old female in no acute distress at the time of my examination HEENT: Head is atraumatic, normocephalic. Pupils equal, round. Sclera anicteric. Conjunctiva are clear. Mucous membranes of the mouth are moist. Neck is supple. There is no elevated jugular venous pressure. No carotid bru it is heard. HEART EXAMINATION: [Heart S1, S2 normal. No murmur or gallop heard.] CHEST EXAMINATION:[ Lungs are clear to auscultation and precussion. No chest wall tenderness is noted on palpation or with deep breathing.] ABDOMEN: [ Soft, nontender. Bowel sounds are heard. No organomegaly noted]. EXTREMITIES:[ 2+ peripheral pulses with no evidence of peripheral edema and no calf tenderness noted]. Right groin is soft, no evidence of any hematoma. Left radial site clean and dry, good distal pulse. Patient does have a small amount of ecchymosis noted in the inside area of her upper arm. NEUROLOGIC [patient is awake, alert and oriented X3.] . - Labs CBC & Chem 7: 07/19/18 06:35 07/19/18 06:35 Labs: Abnormal Lab Results - Last 24 Hours (Table) 07/19/18 Range/Units 06:35 Glucose 109 H (74-99) mg/dL Assessment and Plan Plan: Assessment and plan #1 status post left subclavian stenting #2 status post cardiac catheterization which revealed a patent stent in the LAD and medical therapy advised #3 hyperlipidemia #4 hypothyroidism #5 COPD #6 asthma #7 nicotine dependence Plan Patient may be discharged home today from cardiology's perspective. We'll make her a follow-up appointment to see Dr. VC Eduardo the office post discharge. Discharge medications include aspirin 81 mg daily, Lipitor 80 mg daily, Lexapro, Neurontin, Keppra, Synthroid 150 g daily, Cozaar 50 mg daily and Brilinta 90 mg one tablet by mouth twice a day along with sublingual nitroglycerin. DNP note has been reviewed, I agree with a documented findings and plan of care. Patient was seen and examined.
== END 2018-07-19 12:49 | disposition home or self-care (01) ==
LOC: CATHCVL 08:11 → 3SCARD 14:33 → CATHCVL 07-19 12:49
PROVIDERS: ATTEND Internal Medicine Interventional Cardiology
DX: I65.22 Occlusion and stenosis of left carotid artery (principal); I25.110 Atherosclerotic heart disease of native coronary artery with unstable angina pectoris; I10 Essential (primary) hypertension; F17.210 Nicotine dependence, cigarettes, uncomplicated; Z95.5 Presence of coronary angioplasty implant and graft; J44.9 Chronic obstructive pulmonary disease, unspecified; E03.9 Hypothyroidism, unspecified; I73.9 Peripheral vascular disease, unspecified; E78.5 Hyperlipidemia, unspecified; G62.9 Polyneuropathy, unspecified; Z79.02 Long term (current) use of antithrombotics/antiplatelets; Z79.890 Hormone replacement therapy; Z79.899 Other long term (current) drug therapy; Z88.6 Allergy status to analgesic agent
CPT/HCPCS: 93458; 37236; 80048; 85025; C1894 ×2; C1769 ×6; C1887; C1725; C1876; J2001; J3010; J1644; Q9967; J2250

== ENCOUNTER 2019-02-27 16:04 | Observation (INO) | payer MEDICARE, OTHER ==
[2019-02-27] MEDS ORDERED: SODIUM CHLORIDE 0.9% 1,000 ML IV STA (16:35)
[2019-02-27 17:00] LABS: Basophils # (A) 0.1 k/uL (0-0.2); Basophils % (A) 1 %; Eosinophils # (A) 0.1 k/uL (0-0.7); Eosinophils % (A) 2 %; HCT 44.9 % (34.0-46.0); HGB 15.1 gm/dL (11.4-16.0); Lymphocytes # (A) 3.4 k/uL (1.0-4.8); Lymphocytes % (A) 40 %; MCH 32.4 pg (25.0-35.0); MCHC 33.7 g/dL (31.0-37.0); MCV 96.2 fL (80.0-100.0); Mean Platelet Volume 6.9; Monocytes # (A) 0.3 k/uL (0-1.0); Monocytes % (A) 4 %; Neutrophils # (A) 4.3 k/uL (1.3-7.7); Neutrophils % (A) 51 %; Platelet Count 296 k/uL (150-450); RBC 4.67 m/uL (3.80-5.40); RDW 15.5 % (11.5-15.5); WBC 8.4 k/uL (3.8-10.6)
[2019-02-27 17:08] LABS: Albumin 4.6 g/dL (3.5-5.0); Calcium 9.1 mg/dL (8.4-10.2); Potassium 4.1 mmol/L (3.5-5.1); Total Bilirubin 0.4 mg/dL (0.2-1.3); Total Protein 7.8 g/dL (6.3-8.2)
[2019-02-27 17:41] LABS: Glucose,Whole Blood 85 mg/dL (75-99)
--- NOTE | 2019-02-27 17:55 | CT ---
EXAMINATION: CT brain wo con DATE AND TIME: 02/27/2019 5:28 PM CLINICAL INDICATION: PHH; seizure activity TECHNIQUE: Standard departmental protocol.; seizure activity; COMPARISON: CT 07/11/2018 FINDINGS: The calvarium is intact. There is no intracranial hemorrhage. There is no intracranial mass or mass effect. No definite new intra-axial or extra-axial attenuation defect. The paranasal sinuses, middle ear cavities, and mastoid sinus air cells are clear. The orbits are unremarkable. IMPRESSION: NO ACUTE PROCESS.
[2019-02-27] MEDS ORDERED: SODIUM CHLORIDE 0.9% 500 ML 500 ML IV STA (18:01)
--- NOTE | 2019-02-27 19:43 | ED ---
General Adult HPI - General Chief complaint: Seizure Stated complaint: Seizure Time Seen by Provider: 02/27/19 16:16 Source: patient, RN notes reviewed, old records reviewed Mode of arrival: EMS Limitations: no limitations - History of Present Illness Initial comments: 58-year-old female patient past history for seizure disorder presents to ED chief complaint of seizure. Patient boyfriend was with patient reported that she was sitting on the couch when she had approximately a five-minute [id number]-itnn seizure. Patient reports that he called EMS. Reports the seizure had resolved by the time they arrived. Upon arrival in the emergency department patient display postictal but did not have any complaints. Boyfriend is a poor the patient complained of a headache earlier in the day. Denies any headache at this time. Denies any other complaints, denies any focal localized pain. Systemic: Pt denies fatigue, fever/chills, rash. Pt denies weakness, night sweats, weight loss. Neuro: Pt denies headache, visual disturbances, syncope or pre-syncope. HEENT: Pt denies ocular discharge or irritation, otalgia, rhinorrhea, pharyngitis or notable lymphadenopathy. Cardiopulmonary: Pt denies chest pain, SOB, heart palpitations, dyspnea on exertion. Abdominal/GI: Pt denies abdominal pain, n/v/d. : Pt denies dysuria, burning w/ urination, frequency/urgency. Denies new onset urinary or bowel incontinence. MSK: Pt denies myalgia, loss of strength or function in extremities. Neuro: Pt denies new onset weakness, paresthesias. - Related Data Home Medications Medication Instructions Recorded Confirmed Escitalopram [Lexapro] 40 mg PO DAILY 11/28/17 07/18/18 Levothyroxine Sodium [Synthroid] 150 mcg PO DAILY 11/28/17 07/18/18 Gabapentin [Neurontin] 800 mg PO TID 11/29/17 07/18/18 Albuterol Inhaler [Ventolin Hfa 1 - 2 puff INHALATION RT-Q6H PRN 05/08/18 07/18/18 Inhaler] levETIRAcetam [Keppra] 1,000 mg PO Q12HR 07/18/18 07/18/18 Previous Rx's Medication Instructions Recorded Aspirin EC [Ecotrin Low Dose] 81 mg PO DAILY #30 tablet. 11/30/17 Atorvastatin [Lipitor] 80 mg PO HS #30 tab 11/30/17 Losartan [Cozaar] 50 mg PO DAILY #30 tab 11/30/17 Nitroglycerin Sl Tabs [Nitrostat] 0.4 mg SUBLINGUAL Q5M PRN #25 tab 11/30/17 Ticagrelor [Brilinta] 90 mg PO BID #60 tab 11/30/17 Allergies Allergy/AdvReac Type Severity Reaction Status Date / Time ibuprofen [From Motrin] Allergy Unknown Verified 02/27/19 16:35 Review of Systems ROS Statement: Those systems with pertinent positive or pertinent negative responses have been documented in the HPI. ROS Other: All systems not noted in ROS Statement are negative. Past Medical History Past Medical History: Asthma, Coronary Artery Disease (CAD), Chest Pain / Angina, COPD, Thyroid Disorder Additional Past Medical History / Comment(s): SLIGHT COPD. 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 CYSTS REMOVED FROM UNDER ARMS AND HANDS. 4 stents. 07/18 lt subclavian stent Past Anesthesia/Blood Transfusion Reactions: No Reported Reaction Date of Last Stent Placement:: nov 2017 Past Psychological History: Depression Smoking Status: Current every day smoker Past Alcohol Use History: None Reported Past Drug Use History: None Reported - Past Family History Mother Family Medical History: Cancer Sister(s) Family Medical History: Cancer General Exam - General Exam Comments Initial Comments: Constitutional: NAD, AOX3, Pt has pleasant affect. HEENT: NC/AT, trachea midline, neck supple, no lymphadenopathy. Posterior pharynx non erythematous, without exudates. External ears appear normal, without discharge. Tympanic membrane pale hilton bilaterally. Mucous membranes moist. Eyes PERRLA, EOM intact. There is no scleral icterus. No pallor noted. Cardiopulmonary: RRR, no murmurs, rubs or gallops, no JVD noted. Lungs CTAB in anterior and posterior pierson. No peripheral edema. Abdominal exam: Abdomen soft and non-distended. Abdomen non-tender to palpation in all 4 quadrants. Bowel sounds active in LLQ. No hepatosplenomegaly. No ecchymosis Neuro: CN II-XII intact. No nuchal rigidity. No raccon eyes, no mckeon sign, no hemotympanum. No cervical spinal tenderness. MSK: No posterior calf tenderness bilaterally, homans sign negative bilaterally. Posterior tibialis and radial pulse +2 bilaterally. Sensation intact in upper and lower extremities. Full active ROM in upper and lower extremities, 5/5 stregnth. Limitations: no limitations Course Vital Signs 02/27/19 02/27/19 02/27/19 16:32 17:00 17:32 Temperature 97.4 F L Pulse Rate 67 62 54 L Respiratory 18 18 18 Rate Blood Pressure 77/46 81/68 93/48 O2 Sat by Pulse 94 L 99 99 Oximetry 02/27/19 02/27/19 02/27/19 17:55 18:13 18:30 Temperature 98.0 F Pulse Rate 58 L 58 L 60 Respiratory 16 18 16 Rate Blood Pressure 89/53 95/61 98/50 O2 Sat by Pulse 96 97 99 Oximetry 02/27/19 19:00 Temperature Pulse Rate 62 Respiratory 16 Rate Blood Pressure 89/56 O2 Sat by Pulse 99 Oximetry Medical Decision Making - Medical Decision Making 58-year-old female patient past history for seizure disorder presents to ED chief complaint of seizure. Patient boyfriend was with patient reported that she was sitting on the couch when she had approximately a five-minute shlqy-rpgsqj-eull seizure. Patient reports that he called EMS. Reports the seizure had resolved by the time they arrived. Upon arrival in the emergency department patient display postictal but did not have any complaints. Boyfriend is a poor the patient complained of a headache earlier in the day. Denies any headache at this time. Denies any other complaints, denies any focal localized pain. Patient vital signs laid mild hypotension.. Physical exam displayed patient to be alert and oriented 3. Neurologic exam within normal limits. No ntender abdomen. Left investigations revealed a mildly increased creatinine of 1.41. EKG nonischemic. CT brain without displayed no acute process. Due to patient's hypotension patient will be admitted for observation. Case discussed with Dr. Galvan. - Lab Data Result diagrams: 02/27/19 16:50 02/27/19 16:50 Lab Results 02/27/19 02/27/19 02/27/19 Range/Units 16:50 16:50 17:39 WBC 8.4 (3.8-10.6) k/uL RBC 4.67 (3.80-5.40) m/uL Hgb 15.1 (11.4-16.0) gm/dL Hct 44.9 (34.0-46.0) % MCV 96.2 (80.0-100.0) fL MCH 32.4 (25.0-35.0) pg MCHC 33.7 (31.0-37.0) g/dL RDW 15.5 (11.5-15.5) % Plt Count 296 (150-450) k/uL Neutrophils % 51 % Lymphocytes % 40 % Monocytes % 4 % Eosinophils % 2 % Basophils % 1 % Neutrophils # 4.3 (1.3-7.7) k/uL Lymphocytes # 3.4 (1.0-4.8) k/uL Monocytes # 0.3 (0-1.0) k/uL Eosinophils # 0.1 (0-0.7) k/uL Basophils # 0.1 (0-0.2) k/uL Sodium 137 (137-145) mmol/L Potassium 4.1 (3.5-5.1) mmol/L Chloride 106 (98-107) mmol/L Carbon Dioxide 22 (22-30) mmol/L Anion Gap 9 mmol/L BUN 15 (7-17) mg/dL Creatinine 1.41 H (0.52-1.04) mg/dL Est GFR (CKD-EPI)AfAm 47 (>60 ml/min/1.73 sqM) Est GFR (CKD-EPI)NonAf 41 (>60 ml/min/1.73 sqM) Glucose 96 (74-99) mg/dL POC Glucose (mg/dL) 85 (75-99) mg/dL POC Glu Hay Baler ID Tuesday, Leona Calcium 9.1 (8.4-10.2) mg/dL Total Bilirubin 0.4 (0.2-1.3) mg/dL AST 41 H (14-36) U/L ALT 26 (9-52) U/L Alkaline Phosphatase 70 (38-126) U/L Total Protein 7.8 (6.3-8.2) g/dL Albumin 4.6 (3.5-5.0) g/dL - EKG Data -: EKG Interpreted by Me (and Dr. Galvan ) EKG Comments: Ventricular rate 55, MO interval 170, QRS 108, QT/QTc is 07/28/1976. Sinus bradycardia, left axis deviation. Inferior infarct age undetermined. AbNormal EKG. No concern of acute ischemic this time. Disposition Clinical Impression: Breakthrough seizure, Hypotension Disposition: ADMITTED IP TO THIS HOSP Condition: Serious Is patient prescribed a controlled substance at d/c from ED?: No Referrals: Jose F Mcwilliams MD [Primary Care Provider] - 1-2 days
[2019-02-27] MEDS ORDERED: NALOXONE 0.4 MG/ML 1 ML VIAL IV PRN (19:51)
[2019-02-27] MEDS ORDERED: LORazepam 2 MG/ML INJ IV PRN (20:25)
[2019-02-27] MEDS ORDERED: ALBUTEROL NEBULIZED 2.5 MG/3 ML INHALATION PRN (20:31)
[2019-02-27] MEDS: SODIUM CHLORIDE 0.9% 1,000 ML IV SCH (20:45)
[2019-02-27] MEDS ORDERED: ATORVASTATIN 80 MG TAB PO SCH (21:00)
[2019-02-27] MEDS ORDERED: SODIUM CHLORIDE 0.9% 500 ML 500 ML IV ONE (22:33)
[2019-02-27] MEDS: NON FORMULARY DRUG (Ticagrelor [Brilinta] 60 MG) PO SCH (22:42)
[2019-02-27] MEDS: GABAPENTIN 400 MG CAP PO SCH (22:46)
[2019-02-27] MEDS: levETIRAcetam 500 MG TAB PO SCH (22:47)
[2019-02-28] MEDS ORDERED: LEVOTHYROXINE 75 MCG TAB PO SCH (06:30)
[2019-02-28] MEDS: GABAPENTIN 400 MG CAP PO SCH ×2 (07:57→16:06)
[2019-02-28] MEDS: levETIRAcetam 500 MG TAB PO SCH (07:57)
[2019-02-28] MEDS: NON FORMULARY DRUG (Ticagrelor [Brilinta] 60 MG) PO SCH (08:01)
[2019-02-28] MEDS: SODIUM CHLORIDE 0.9% 1,000 ML IV SCH (08:01)
--- NOTE | 2019-02-28 08:05 | P.HPIM ---
History of Present Illness H&P Date: 02/28/19 Chief Complaint: Seizure activity and hypotension This is a history and physical on a 58-year-old white female who was supposedly had witnessed tonic-clonic activity for about 5 minutes. She hasn't underlying seizure disorder and states compliance with her medication. During this time, she is also developed significant hypotension. The patient states no symptoms. No dizziness or headache. No significant nausea or vomiting. No chest pain or shortness of breath stated. No significant numbness or tingling. Postictally, she was quite lucid this morning. However, she does complain of some fatigue. Review of Systems Constitutional: Denies chills, Denies fever Eyes: denies blurred vision, denies pain Ears, nose, mouth and throat: Denies headache, Denies sore throat Cardiovascular: Reports edema, Denies chest pain, Denies shortness of breath Respiratory: Denies cough Genitourinary: Denies dysuria, Denies hematuria Neurological: Reports seizures, Denies numbness, Denies weakness Psychiatric: Denies anxiety, Denies depression Endocrine: Denies fatigue, Denies weight change Past Medical History Past Medical History: Asthma, Coronary Artery Disease (CAD), Chest Pain / Angina, COPD, Seizure Disorder, Thyroid Disorder Additional Past Medical History / Comment(s): SLIGHT COPD. NEUROPATHY TO BILAT HANDS AND LEGS AND RT FOOT, History of Any Multi-Drug Resistant Organisms: None Reported Past Surgical History: Heart Catheterization With Stent, Hysterectomy, Orthopedic Surgery Additional Past Surgical History / Comment(s): RT ROTATOR CUFF REPAIR. CYSTS REMOVED FROM UNDER ARMS AND HANDS. 4 stents. 07/18 lt subclavian stent Past Anesthesia/Blood Transfusion Reactions: No Reported Reaction Date of Last Stent Placement:: nov 2017 Past Psychological History: Depression Smoking Status: Current every day smoker Past Alcohol Use History: None Reported Additional Past Alcohol Use History / Comment(s): SMOKES 1@ PPD SINCE AGE 11 Past Drug Use History: None Reported - Past Family History Mother Family Medical History: Cancer Sister(s) Family Medical History: Cancer Medications and Allergies Home Medications Medication Instructions Recorded Confirmed Type Escitalopram [Lexapro] 40 mg PO DAILY 11/28/17 02/27/19 History Levothyroxine Sodium [Synthroid] 150 mcg PO DAILY 11/28/17 02/27/19 History Gabapentin [Neurontin] 800 mg PO TID 11/29/17 02/27/19 History Atorvastatin [Lipitor] 80 mg PO HS #30 tab 11/30/17 02/27/19 Rx Albuterol Inhaler [Ventolin Hfa 2 puff INHALATION RT-Q6H PRN 05/08/18 02/27/19 History Inhaler] levETIRAcetam [Keppra] 1,000 mg PO Q12HR 07/18/18 02/27/19 History Buprenorphine HCl/Naloxone HCl 1 film SL DAILY 02/27/19 02/27/19 History [Bupreno-Nalox 2-0.5 mg Sl Film] Doxepin [SINEquan] 10 mg PO DAILY 02/27/19 02/27/19 History Ticagrelor [Brilinta] 60 mg PO BID 02/27/19 02/27/19 History cloNIDine HCL [Catapres] 0.1 mg PO BID 02/27/19 02/27/19 History Allergies Allergy/AdvReac Type Severity Reaction Status Date / Time ibuprofen [From Motrin] Allergy Unknown Verified 02/27/19 20:04 Physical Exam Vitals: Vital Signs Temp Pulse Pulse Resp BP BP Pulse Ox 02/28/19 05:25 97.7 F 63 16 124/55 91 L 02/27/19 23:47 56 L 110/54 02/27/19 22:24 56 L 84/45 92 L 02/27/19 21:59 97.5 F L 59 L 20 81/52 95 02/27/19 20:26 97.8 F 54 L 16 97/42 98 02/27/19 19:00 62 16 89/56 99 02/27/19 18:30 60 16 98/50 99 02/27/19 18:13 58 L 18 95/61 97 02/27/19 17:55 98.0 F 58 L 16 89/53 96 02/27/19 17:32 54 L 18 93/48 99 02/27/19 17:00 62 18 81/68 99 02/27/19 16:32 97.4 F L 67 18 77/46 94 L Intake and Output 02/27/19 02/28/19 02/28/19 22:59 06:59 14:59 Intake Total 200 590 Balance 200 590 Intake: Intake, IV Titration 200 Amount Sodium Chloride 0.9% 1, 200 000 ml @ 100 mls/hr IV . Q10H [facility] Rx#:[id number] Oral 590 Other: Voiding Method Toilet # Voids 2 Weight 77.111 kg Results CBC & Chem 7: 02/27/19 16:50 02/27/19 16:50 Labs: Abnormal Lab Results - Last 24 Hours (Table) 02/27/19 Range/Units 16:50 Creatinine 1.41 H (0.52-1.04) mg/dL AST 41 H (14-36) U/L Thrombosis Risk Factor Assmnt - Choose All That Apply Any of the Below Risk Factors Present?: Yes Each Factor Represents 1 point: Abnormal pulmonary function (COPD), Age 41-60 years, Obesity (BMI >25) Other Risk Factors: No Other congenital or acquired thrombophilia - If yes, enter type in comment: No Thrombosis Risk Factor Assessment Total Risk Factor Score: 3 Thrombosis Risk Factor Assessment Level: Moderate Risk Assessment and Plan (1) Opiate dependence Current Visit: Yes Status: Acute Code(s): F11.20 - OPIOID DEPENDENCE, UNCOMPLICATED SNOMED Code(s): 87556736 (2) Breakthrough seizure Current Visit: Yes Status: Acute Code(s): G40.919 - EPILEPSY, UNSP, INTRACTABLE, WITHOUT STATUS EPILEPTICUS SNOMED Code(s): 078329898 (3) Hypotension Current Visit: Yes Status: Acute Code(s): I95.9 - HYPOTENSION, UNSPECIFIED SNOMED Code(s): 26134681 (4) CAD (coronary artery disease) Current Visit: No Status: Acute Code(s): I25.10 - ATHSCL HEART DISEASE OF [place] CORONARY ARTERY W/O ANG PCTRS SNOMED Code(s): 69612489 (5) Tobacco abuse Current Visit: No Status: Acute Code(s): Z72.0 - TOBACCO USE SNOMED Code(s): 557052740 Plan: Consult neurology. Rehydration for blood pressure control. Reconcile home medications. Anticipate discharge once cleared by neurology
[2019-02-28 08:21] LABS: Appearance,Urine Clear (Clear); Bilirubin,Urine Negative (Negative); Blood,Urine Negative (Negative); Color,Urine Light Yellow; Glucose,Urine (UA) Negative (Negative); Ketones,Urine Negative (Negative); Leukocyte Esterase,Urine Negative (Negative); Nitrite,Urine Negative (Negative); PH, Urine 6.5 (5.0-8.0); Protein,Urine Negative (Negative); Specific Gravity,Urine 1.008 (1.001-1.035); Urobilinogen,Urine <2.0 mg/dL (<2.0)
[2019-02-28 08:26] LABS: Albumin 3.7 g/dL (3.5-5.0); Potassium 4.8 mmol/L (3.5-5.1); Total Bilirubin 0.5 mg/dL (0.2-1.3); Total Protein 6.5 g/dL (6.3-8.2)
[2019-02-28] MEDS ORDERED: NALOXONE HCL SUBLINGUAL SCH (09:00)
[2019-02-28] MEDS ORDERED: [UNRECOGNIZED DRUG - OTHER] SUBLINGUAL SCH (09:00)
[2019-02-28] MEDS ORDERED: ESCITALOPRAM 20 MG TAB PO SCH (09:00)
[2019-02-28] MEDS ORDERED: BUPRENORPHINE HCL SUBLINGUAL SCH (09:00)
[2019-02-28] MEDS ORDERED: cloNIDine HCL 0.1 MG TAB PO SCH (09:00)
[2019-02-28 09:15] LABS: HCT 44.3 % (34.0-46.0); HGB 14.9 gm/dL (11.4-16.0); MCHC 33.7 g/dL (31.0-37.0); MCV 100.8 fL (80.0-100.0); Macrocytosis Slight; Mean Platelet Volume 8.2; Platelet Count 172 k/uL (150-450); RBC 4.39 m/uL (3.80-5.40); RDW 15.6 % (11.5-15.5); WBC 11.6 k/uL (3.8-10.6)
[2019-02-28] MEDS ORDERED: levETIRAcetam 500 MG TAB PO STA (11:25)
--- NOTE | 2019-02-28 11:52 | P.CNNES ---
History of Present Illness Consult date: 02/28/19 Requesting physician: Jose F Mcwilliams Reason for Consult: Seizure History of Present Illness: Patient is a 58-year-old female, who was diagnosed with seizure disorder in July 2018 after she had 3 grand mal seizures. Patient states that at that time in July 2018 she started having a headache, then had nausea and that after had a grand mal seizure. She was taken to the [facility] and had a second grand mal seizure in the ambulance and a third seizure in the hospital. She was discharged on Keppra. Patient follows up with Dr. Brito, and she currently is on Keppra 1000 mg 2 times a day. Patient has not had any seizures since then. Patient states that yesterday she had a similar symptom consisting of headache on the left frontal region, then she became nauseous, and then had a grand mal seizure. She did not bite her tongue or lost control of urine. Patient was brought to the hospital. When she arrived, her blood pressure was 77/46, pulse rate 67 and temperature 97.4. Her blood test shows normal CBC, electrolytes, BUN was 15, creatinine 1.41. AST mildly elevated 41, but ALT normal. UA negative. CT head was normal, EKG showed sinus bradycardia with heart rate of 55. Keppra level was on the lower limits of normal range 5.1 (3-60). At present she feels fine and wants to go home. Patient takes Keppra 1000 mg twice a day, states is compliant with the medication, does not remember missing any doses. Patient also has history of ICA stenosis, status post left carotid stenting. Patient follows up with Dr. Evans. Patient is on Brillinta and ASA daily. Patient states that when she was in [facility] in July 2018, she was found to have carotid bruit. She was recommended some testing but patient has not scheduled that test, as her daughter schedules all tests for her. Patient had an MRI of brain without contrast on 04/01/2018, which revealed nonspecific white matter demyelination may be indicative of underlying vasculitis, small vessel ischemia, hypertension, migraine headaches. Multiple sclerosis felt to be less likely. MRA of the head showed atheromatous changes within the internal carotid arteries at the level of the siphon. No stenosis. CTA of the neck from 04/10/2018 showed moderate to severe diffuse atherosclerotic changes throughout common carotid arteries bilaterally including carotid bulbs without hemodynamically significant focal stenosis in common or internal carotid arteries. Patient has smoked about a pack per day since she was a teenager. She cutback to 5 cigarettes per day since July 2018. Patient does not take any Xanax or benzos. Review of Systems Unremarkable at this time. Denies any headache denies any problem with the vision speech swallow. Past Medical History Past Medical History: Asthma, Coronary Artery Disease (CAD), Chest Pain / Angina, COPD, Seizure Disorder, Thyroid Disorder Additional Past Medical History / Comment(s): SLIGHT COPD. NEUROPATHY TO BILAT HANDS AND LEGS AND RT FOOT, History of Any Multi-Drug Resistant Organisms: None Reported Past Surgical History: Heart Catheterization With Stent, Hysterectomy, Orthopedic Surgery Additional Past Surgical History / Comment(s): RT ROTATOR CUFF REPAIR. CYSTS REMOVED FROM UNDER ARMS AND HANDS. 4 stents. 07/18 lt subclavian stent Past Anesthesia/Blood Transfusion Reactions: No Reported Reaction Date of Last Stent Placement:: nov 2017 Past Psychological History: Depression Smoking Status: Current every day smoker Past Alcohol Use History: None Reported Additional Past Alcohol Use History / Comment(s): SMOKES 1@ PPD SINCE AGE 11 Past Drug Use History: None Reported - Past Family History Mother Family Medical History: Cancer Sister(s) Family Medical History: Cancer Medications and Allergies Home Medications Medication Instructions Recorded Confirmed Type Escitalopram [Lexapro] 40 mg PO DAILY 11/28/17 02/27/19 History Levothyroxine Sodium [Synthroid] 150 mcg PO DAILY 11/28/17 02/27/19 History Gabapentin [Neurontin] 800 mg PO TID 11/29/17 02/27/19 History Atorvastatin [Lipitor] 80 mg PO HS #30 tab 11/30/17 02/27/19 Rx Albuterol Inhaler [Ventolin Hfa 2 puff INHALATION RT-Q6H PRN 05/08/18 02/27/19 History Inhaler] levETIRAcetam [Keppra] 1,000 mg PO Q12HR 07/18/18 02/27/19 History Buprenorphine HCl/Naloxone HCl 1 film SL DAILY 02/27/19 02/27/19 History [Bupreno-Nalox 2-0.5 mg Sl Film] Doxepin [SINEquan] 10 mg PO DAILY 02/27/19 02/27/19 History Ticagrelor [Brilinta] 60 mg PO BID 02/27/19 02/27/19 History cloNIDine HCL [Catapres] 0.1 mg PO BID 02/27/19 02/27/19 History Allergies Allergy/AdvReac Type Severity Reaction Status Date / Time ibuprofen [From Motrin] Allergy Unknown Verified 02/27/19 20:04 Physical Examination - Vital Signs Vital Signs: Vital Signs Temp Pulse Pulse Resp BP BP Pulse Ox 02/28/19 05:25 97.7 F 63 16 124/55 91 L 02/27/19 23:47 56 L 110/54 02/27/19 22:24 56 L 84/45 92 L 02/27/19 21:59 97.5 F L 59 L 20 81/52 95 02/27/19 20:26 97.8 F 54 L 16 97/42 98 02/27/19 19:00 62 16 89/56 99 02/27/19 18:30 60 16 98/50 99 02/27/19 18:13 58 L 18 95/61 97 02/27/19 17:55 98.0 F 58 L 16 89/53 96 02/27/19 17:32 54 L 18 93/48 99 02/27/19 17:00 62 18 81/68 99 02/27/19 16:32 97.4 F L 67 18 77/46 94 L Intake and Output 02/27/19 02/28/19 02/28/19 22:59 06:59 14:59 Intake Total 200 590 Balance 200 590 Intake: Intake, IV Titration 200 Amount Sodium Chloride 0.9% 1, 200 000 ml @ 100 mls/hr IV . Q10H [facility] Rx#:[id number] Oral 590 Other: Voiding Method Toilet Toilet # Voids 2 Weight 77.111 kg On examination patient is a middle aged female, in no distress. She is alert and awake. Mental status is normal. Her speech and language functions are normal. She has hoarse voice. On cranial nerve examination, pupils are round and reactive to light, visual pierson are full, face is symmetric and t ongue protrudes the midline. Palatal elevation sensation normal. Patient has bilateral bruit, left more than right. S1 and S2 audible. On muscle strength testing there is no pronator drift. Strength is normal in arms and legs distally and proximally. Reflexes are 1+ and plantars downgoing. Sensory touch is equal. No ataxia for [id number] testing. Tone and bulk of muscles normal. Results - Laboratory Findings CBC and BMP: 02/28/19 07:35 02/28/19 07:35 Abnormal Lab Findings: Abnormal Labs 02/27/19 02/28/19 02/28/19 16:50 07:35 07:35 WBC 11.6 H MCV 100.8 H RDW 15.6 H Chloride 113 H Creatinine 1.41 H 1.11 H Calcium 8.0 L AST 41 H 38 H Assessment and Plan Assessment: * 58-year-old female with history of seizure disorder diagnosed in July 2018, had a breakthrough seizure of unclear etiology. Patient is compliant with medication but her levels were on the lower limits of normal range. * History of hypertension. Patient was hypotensive on presentation to ER, unclear cause. Possible mild dehydration. Will defer to IM. * Bilateral carotid bruit, left more than right. Her CTA of neck from 2018 showed atherosclerotic disease without significant stenosis. * Tobacco user Plan: * Patient had a breakthrough seizure of unclear etiology. Patient currently on Keppra 1000 mg twice a day, but her levels were on lower limits of normal range. Patient denies missing any doses of Keppra. We will therefore increase Keppra to 1500 mg twice a day. Patient was recommended to follow up with her neurologist in 3-4 weeks. She may need repeat Keppra levels in 3-4 weeks. * Patient was informed of [place] state law of no driving unless seizure free for 6 months, operating dangerous machinery, climbing ladders or unsupervised swimming. * Patient was counseled about tobacco cessation. * Neurologically clear for discharge.
[2019-02-28 12:31] VITALS: BP 126/55; PULSE 66; RESP 18; TEMP 99
== END 2019-02-28 16:40 | disposition home or self-care (01) ==
LOC: EC 16:04 → 3NMEDONC 19:03
PROVIDERS: ADMIT Family Medicine; ATTEND Family Medicine
DX: G40.909 Epilepsy, unspecified, not intractable, without status epilepticus (principal); J45.909 Unspecified asthma, uncomplicated; I25.10 Atherosclerotic heart disease of native coronary artery without angina pectoris; J44.9 Chronic obstructive pulmonary disease, unspecified; E07.9 Disorder of thyroid, unspecified; G62.9 Polyneuropathy, unspecified; Z95.5 Presence of coronary angioplasty implant and graft; Z90.710 Acquired absence of both cervix and uterus; F32.9 Major depressive disorder, single episode, unspecified; F17.210 Nicotine dependence, cigarettes, uncomplicated; I95.9 Hypotension, unspecified; F11.20 Opioid dependence, uncomplicated; F17.200 Nicotine dependence, unspecified, uncomplicated; Z79.02 Long term (current) use of antithrombotics/antiplatelets; Z79.82 Long term (current) use of aspirin; Z79.890 Hormone replacement therapy; Z79.899 Other long term (current) drug therapy; Z88.6 Allergy status to analgesic agent; I65.29 Occlusion and stenosis of unspecified carotid artery; Z95.820 Peripheral vascular angioplasty status with implants and grafts
CPT/HCPCS: 96360; 99285; 36415; 93005; 80053 ×2; 80177; 84484; 85025; 85027; 81003; 70450; G0378 ×2

== ENCOUNTER 2019-03-06 15:16 | Inpatient (IN) | payer MEDICARE ==
[2019-03-06] MEDS ORDERED: SODIUM CHLORIDE 0.9% 1,000 ML IV STA ×2 (15:57→20:15)
--- NOTE | 2019-03-06 16:09 | ED ---
General Adult HPI - General Chief complaint: Recheck/Abnormal Lab/Rx Stated complaint: Dizziness, Fall Time Seen by Provider: 03/06/19 15:55 Source: patient Mode of arrival: wheelchair Limitations: no limitations - History of Present Illness Initial comments: Patient is a 58-year-old female with history of COPD, seizures and hypotension presenting to the emergency department with a chief complaint of dizziness. Patient reports she was in the ED about a week ago and discharged on Tuesday. Patient reports upon discharge her Keppra dose was elevated. Patient states typically she runs in the low 100s systolic and 50s to 60s diastolic. Ever since, she has been feeling more confused patient denies any urinary symptoms. Patient reports over the last few days he developed increased shortness of breath. Patient has never been officially diagnosed with COPD has been a lifelong smoker. Patient does not use oxygen at home and is currently a smoker. Patient reports wheezing. Denies one-sided weakness, headache, blurry vision, chest pain nausea vomiting diarrhea. - Related Data Home Medications Medication Instructions Recorded Confirmed Escitalopram [Lexapro] 40 mg PO DAILY 11/28/17 03/06/19 Gabapentin [Neurontin] 800 mg PO TID 11/29/17 03/06/19 Albuterol Inhaler [Ventolin Hfa 2 puff INHALATION RT-Q6H PRN 05/08/18 03/06/19 Inhaler] levETIRAcetam [Keppra] 1,500 mg PO Q12HR 07/18/18 03/06/19 Buprenorphine HCl/Naloxone HCl 1 film SL DAILY 02/27/19 03/06/19 [Bupreno-Nalox 2-0.5 mg Sl Film] Doxepin [SINEquan] 10 mg PO HS 02/27/19 03/06/19 Ticagrelor [Brilinta] 60 mg PO BID 02/27/19 03/06/19 Levothyroxine Sodium [Synthroid] 175 mcg PO DAILY 03/06/19 03/06/19 Previous Rx's Medication Instructions Recorded Atorvastatin [Lipitor] 80 mg PO HS #30 tab 11/30/17 Allergies Allergy/AdvReac Type Severity Reaction Status Date / Time ibuprofen [From Motrin] Allergy Abdominal Verified 03/06/19 19:02 Pain Review of Systems ROS Statement: Those systems with pertinent positive or pertinent negative responses have been documented in the HPI. ROS Other: All systems not noted in ROS Statement are negative. Past Medical History Past Medical History: Asthma, Coronary Artery Disease (CAD), Chest Pain / Angina, COPD, Seizure Disorder, Thyroid Disorder Additional Past Medical History / Comment(s): SLIGHT COPD. NEUROPATHY TO BILAT HANDS AND LEGS AND RT FOOT, History of Any Multi-Drug Resistant Organisms: None Reported Past Surgical History: Heart Catheterization With Stent, Hysterectomy, Orthopedic Surgery Additional Past Surgical History / Comment(s): RT ROTATOR CUFF REPAIR. CYSTS REMOVED FROM UNDER ARMS AND HANDS. 4 stents. 07/18 lt subclavian stent Past Anesthesia/Blood Transfusion Reactions: No Reported Reaction Date of Last Stent Placement:: nov 2017 Past Psychological History: Depression Smoking Status: Current every day smoker Past Alcohol Use History: None Reported Past Drug Use History: None Reported - Past Family History Mother Family Medical History: Cancer Sister(s) Family Medical History: Cancer General Exam Limitations: no limitations General appearance: alert, in no apparent distress, obese Eye exam: Present: normal appearance, scleral icterus ENT exam: Present: normal exam, mucous membranes moist Neck exam: Present: normal inspection, full ROM Respiratory exam: Present: wheezes (Bilateral wheezing). Absent: respiratory distress Cardiovascular Exam: Present: regular rate, normal rhythm, normal heart sounds Extremities exam: Present: normal inspection, full ROM Back exam: Present: normal inspection, full ROM Neurological exam: Present: alert, oriented X3, CN II-XII intact Psychiatric exam: Present: normal affect, normal mood Skin exam: Present: warm, dry, intact, normal color Course Vital Signs 03/06/19 03/06/19 03/06/19 15:45 16:22 16:41 Temperature 98.3 F Pulse Rate 73 67 82 Respiratory 18 20 20 Rate Blood Pressure 80/50 93/54 83/47 O2 Sat by Pulse 86 L 90 L 93 L Oximetry 03/06/19 03/06/19 03/06/19 16:52 16:56 17:01 Temperature Pulse Rate 65 65 68 Respiratory 18 20 18 Rate Blood Pressure 103/60 O2 Sat by Pulse 97 Oximetry 03/06/19 19:45 Temperature Pulse Rate 60 Respiratory 18 Rate Blood Pressure 118/65 O2 Sat by Pulse 93 L Oximetry Medical Decision Making - Medical Decision Making Patient is a 58-year-old female with history of seizures and hypotension presents emergency Department with a chief complaint of weakness. Daughter reports the patient has been appeased ever since her dose of Keppra has been i ncreased right after discharge. On initial evaluation patient is alert and oriented 3. Daughter states that "she is out of it". Patient is reporting some shortness of breath status is somewhat normal for her due to her lifelong smoking. Patient denies shortness of breath but does report some wheezing. No bleeding discoloration of the lips. Patient given DuoNeb and 125 mg of methylprednisone. Patient treated for COPD exacerbation. Patient continues to be hypotensive even after fluid administration. Patient states that she feels slightly weak and sleepy at this time. EKG shows sinus rhythm with no acute ST changes. Initial troponin negative. D-dimer negative. X-ray shows bilateral interstitial changes suggesting possible pulmonary edema or infiltrates. Patient will be admitted for further medical management. Case discussed with Dr. Gotti. Admitting physician is Dr. Mcwilliams. - Lab Data Result diagrams: 03/06/19 16:21 03/06/19 16:19 Lab Results 03/06/19 03/06/19 03/06/19 Range/Units 16:19 16:21 16:21 WBC 6.1 (3.8-10.6) k/uL RBC 3.28 L (3.80-5.40) m/uL Hgb 10.7 L D (11.4-16.0) gm/dL Hct 32.8 L (34.0-46.0) % MCV 100.0 (80.0-100.0) fL MCH 32.8 (25.0-35.0) pg MCHC 32.7 (31.0-37.0) g/dL RDW 15.3 (11.5-15.5) % Plt Count 180 (150-450) k/uL Neutrophils % 52 % Lymphocytes % 32 % Monocytes % 7 % Eosinophils % 6 % Basophils % 1 % Neutrophils # 3.2 (1.3-7.7) k/uL Lymphocytes # 1.9 (1.0-4.8) k/uL Monocytes # 0.4 (0-1.0) k/uL Eosinophils # 0.4 (0-0.7) k/uL Basophils # 0.1 (0-0.2) k/uL Macrocytosis Slight PT 9.9 (9.0-12.0) sec INR 0.9 (<1.2) APTT 28.2 (22.0-30.0) sec D-Dimer (<0.60) mg/L FEU Sodium 136 L (137-145) mmol/L Potassium 3.7 (3.5-5.1) mmol/L Chloride 106 (98-107) mmol/L Carbon Dioxide 23 (22-30) mmol/L Anion Gap 7 mmol/L BUN 11 (7-17) mg/dL Creatinine 1.19 H (0.52-1.04) mg/dL Est GFR (CKD-EPI)AfAm 58 (>60 ml/min/1.73 sqM) Est GFR (CKD-EPI)NonAf 50 (>60 ml/min/1.73 sqM) Glucose 127 H (74-99) mg/dL Calcium 8.3 L (8.4-10.2) mg/dL Total Bilirubin 0.4 (0.2-1.3) mg/dL AST 46 H (14-36) U/L ALT 21 (4-34) U/L Alkaline Phosphatase 78 (38-126) U/L Troponin I (0.000-0.034) ng/mL Total Protein 6.9 (6.3-8.2) g/dL Albumin 4.0 (3.5-5.0) g/dL Urine Color Urine Appearance (Clear) Urine pH (5.0-8.0) Ur Specific [place] (1.001-1.035) Urine Protein (Negative) Urine Glucose (UA) (Negative) Urine Ketones (Negative) Urine Blood (Negative) Urine Nitrite (Negative) Urine Bilirubin (Negative) Urine Urobilinogen (<2.0) mg/dL Ur Leukocyte Esterase (Negative) 03/06/19 03/06/19 03/06/19 Range/Units 16:21 16:21 19:25 WBC (3.8-10.6) k/uL RBC (3.80-5.40) m/uL Hgb (11.4-16.0) gm/dL Hct (34.0-46.0) % MCV (80.0-100.0) fL MCH (25.0-35.0) pg MCHC (31.0-37.0) g/dL RDW (11.5-15.5) % Plt Count (150-450) k/uL Neutrophils % % Lymphocytes % % Monocytes % % Eosinophils % % Basophils % % Neutrophils # (1.3-7.7) k/uL Lymphocytes # (1.0-4.8) k/uL Monocytes # (0-1.0) k/uL Eosinophils # (0-0.7) k/uL Basophils # (0-0.2) k/uL Macrocytosis PT (9.0-12.0) sec INR (<1.2) APTT (22.0-30.0) sec D-Dimer 0.37 (<0.60) mg/L FEU Sodium (137-145) mmol/L Potassium (3.5-5.1) mmol/L Chloride (98-107) mmol/L Carbon Dioxide (22-30) mmol/L Anion Gap mmol/L BUN (7-17) mg/dL Creatinine (0.52-1.04) mg/dL Est GFR (CKD-EPI)AfAm (>60 ml/min/1.73 sqM) Est GFR (CKD-EPI)NonAf (>60 ml/min/1.73 sqM) Glucose (74-99) mg/dL Calcium (8.4-10.2) mg/dL Total Bilirubin (0.2-1.3) mg/dL AST (14-36) U/L ALT (4-34) U/L Alkaline Phosphatase (38-126) U/L Troponin I <0.012 (0.000-0.034) ng/mL Total Protein (6.3-8.2) g/dL Albumin (3.5-5.0) g/dL Urine Color Light Yellow Urine Appearance Clear (Clear) Urine pH 6.0 (5.0-8.0) Ur Specific [place] 1.003 (1.001-1.035) Urine Protein Negative (Negative) Urine Glucose (UA) Negative (Negative) Urine Ketones Negative (Negative) Urine Blood Negative (Negative) Urine Nitrite Negative (Negative) Urine Bilirubin Negative (Negative) Urine Urobilinogen <2.0 (<2.0) mg/dL Ur Leukocyte Esterase Negative (Negative) Disposition Clinical Impression: Hypotension, Wheezing Disposition: ADMITTED IP TO THIS HOSP Condition: Fair Additional Instructions: She will be admitted Is patient prescribed a controlled substance at d/c from ED?: No Referrals: Jose F Mcwilliams MD [Primary Care Provider] - 1-2 days Time of Disposition: 20:20
[2019-03-06] MEDS ORDERED: IPRATROPIUM-ALBUTEROL 3 ML NEB INHALATION STA (16:18)
[2019-03-06] MEDS ORDERED: methylPREDNISolone SOD SUCCI 125 MG/2 ML VIAL IV STA (16:18)
[2019-03-06 16:34] LABS: Basophils # (A) 0.1 k/uL (0-0.2); Basophils % (A) 1 %; Eosinophils # (A) 0.4 k/uL (0-0.7); Eosinophils % (A) 6 %; HCT 32.8 % (34.0-46.0); Lymphocytes # (A) 1.9 k/uL (1.0-4.8); Lymphocytes % (A) 32 %; MCH 32.8 pg (25.0-35.0); MCHC 32.7 g/dL (31.0-37.0); Macrocytosis Slight; Mean Platelet Volume 7.6; Monocytes # (A) 0.4 k/uL (0-1.0); Monocytes % (A) 7 %; Neutrophils # (A) 3.2 k/uL (1.3-7.7); Neutrophils % (A) 52 %; Platelet Count 180 k/uL (150-450); RBC 3.28 m/uL (3.80-5.40); RDW 15.3 % (11.5-15.5); WBC 6.1 k/uL (3.8-10.6)
--- NOTE | 2019-03-06 16:35 | XR ---
EXAMINATION TYPE: XR chest 2V DATE OF EXAM: 03/06/2019 COMPARISON: Chest x-ray July 11 2018. HISTORY: Hypotension and shortness of breath. TECHNIQUE: Frontal and lateral views of the chest are obtained. FINDINGS reticulonodular opacities bilaterally slightly more prominent versus prior. No suspicious ne w focal consolidation, pleural effusion, or pneumothorax. The cardiac silhouette size remains enlarge d with atherosclerotic change aortic knob. The osseous structures are demineralized. Left subclavia n metallic stent now seen over medial margin of scapula. Right humeral head surgical screws are redem onstrated. IMPRESSION: Cardiomegaly with prominent reticulonodular interstitial changes bilaterally suggesting developing interstitial edema and/or infiltrates. Correlate clinically. Former is favored.
[2019-03-06 16:41] LABS: HGB 10.7 gm/dL (11.4-16.0)
[2019-03-06 16:43] LABS: INR 0.9 (<1.2); Partial Thromboplastin Time 28.2 sec (22.0-30.0); Prothrombin Time 9.9 sec (9.0-12.0)
[2019-03-06 16:48] LABS: Calcium 8.3 mg/dL (8.4-10.2); Potassium 3.7 mmol/L (3.5-5.1); Total Bilirubin 0.4 mg/dL (0.2-1.3); Total Protein 6.9 g/dL (6.3-8.2)
[2019-03-06] MEDS ORDERED: HYDROmorphone 1 MG/ML 1 ML SYRINGE IVP STA (19:37)
[2019-03-06 19:46] LABS: Appearance,Urine Clear (Clear); Bilirubin,Urine Negative (Negative); Blood,Urine Negative (Negative); Color,Urine Light Yellow; Glucose,Urine (UA) Negative (Negative); Ketones,Urine Negative (Negative); Leukocyte Esterase,Urine Negative (Negative); Nitrite,Urine Negative (Negative); Protein,Urine Negative (Negative); Specific Gravity,Urine 1.003 (1.001-1.035); Urobilinogen,Urine <2.0 mg/dL (<2.0)
[2019-03-06] MEDS ORDERED: HYDROmorphone 0.5 MG/0.5 ML SYRINGE IVP PRN (20:09)
[2019-03-06] MEDS ORDERED: ONDANSETRON 4 MG/2 ML VIAL IVP PRN (20:09)
[2019-03-06] MEDS ORDERED: NALOXONE 0.4 MG/ML 1 ML VIAL IV PRN (20:09)
[2019-03-06] MEDS: SODIUM CHLORIDE 0.9% 1,000 ML IV SCH (20:34)
[2019-03-07] MEDS: LEVOTHYROXINE 50 MCG TAB PO SCH (06:22)
[2019-03-07] MEDS: ALBUTEROL NEBULIZED 2.5 MG/3 ML INHALATION PRN ×2 (07:45→20:10)
--- NOTE | 2019-03-07 08:58 | P.HPIM ---
History of Present Illness H&P Date: 03/07/19 Chief Complaint: Worsening shortness of breath. The patient was recently discharged for seizure disorder and element of COPD. The patient states no seizure activity but she states feeling "overmedicated" from increased dose of Keppra. She seems less active. Her levels pending. She is requesting neurologic referral for medication titration. However, her primary concern also is the fact that she's been having worsening breathing symptoms. Low-grade fever stated. She is not as active as she normally would be in her baseline. No voiding difficulties. No significant nausea, vomiting or diarrhea. We will address GI and DVT prophylaxis. Review of Systems Constitutional: Reports fatigue, Reports lethargy Eyes: denies blurred vision, denies pain Ears, nose, mouth and throat: Denies headache, Denies sore throat Cardiovascular: Denies chest pain, Denies shortness of breath Respiratory: Reports as per HPI, Reports cough, Reports home oxygen Gastrointestinal: Denies abdominal pain, Denies diarrhea, Denies nausea, Denies vomiting Genitourinary: Denies dysuria, Denies hematuria Musculoskeletal: Denies myalgias Integumentary: Denies pruritus, Denies rash Neurological: Denies numbness, Denies weakness Psychiatric: Denies anxiety, Denies depression Endocrine: Denies fatigue, Denies weight change Past Medical History Past Medical History: Asthma, Coronary Artery Disease (CAD), Chest Pain / Angina, COPD, Seizure Disorder, Thyroid Disorder Additional Past Medical History / Comment(s): SLIGHT COPD. NEUROPATHY TO BILAT HANDS AND LEGS AND RT FOOT, History of Any Multi-Drug Resistant Organisms: None Reported Past Surgical History: Heart Catheterization With Stent, Hysterectomy, Orthopedic Surgery Additional Past Surgical History / Comment(s): RT ROTATOR CUFF REPAIR. CYSTS REMOVED FROM UNDER ARMS AND HANDS. 4 stents. 07/18 lt subclavian stent Past Anesthesia/Blood Transfusion Reactions: No Reported Reaction Date of Last Stent Placement:: nov 2017 Past Psychological History: Depression Smoking Status: Current every day smoker Past Alcohol Use History: None Reported Additional Past Alcohol Use History / Comment(s): SMOKES 1@ PPD SINCE AGE 11 Past Drug Use History: None Reported - Past Family History Mother Family Medical History: Cancer Sister(s) Family Medical History: Cancer Medications and Allergies Home Medications Medication Instructions Recorded Confirmed Type Escitalopram [Lexapro] 40 mg PO DAILY 11/28/17 03/06/19 History Gabapentin [Neurontin] 800 mg PO TID 11/29/17 03/06/19 History Atorvastatin [Lipitor] 80 mg PO HS #30 tab 11/30/17 03/06/19 Rx Albuterol Inhaler [Ventolin Hfa 2 puff INHALATION RT-Q6H PRN 05/08/18 03/06/19 History Inhaler] levETIRAcetam [Keppra] 1,500 mg PO Q12HR 07/18/18 03/06/19 History Buprenorphine HCl/Naloxone HCl 1 film SL DAILY 02/27/19 03/06/19 History [Bupreno-Nalox 2-0.5 mg Sl Film] Doxepin [SINEquan] 10 mg PO HS 02/27/19 03/06/19 History Ticagrelor [Brilinta] 60 mg PO BID 02/27/19 03/06/19 History Levothyroxine Sodium [Synthroid] 175 mcg PO DAILY 03/06/19 03/06/19 History Allergies Allergy/AdvReac Type Severity Reaction Status Date / Time ibuprofen [From Motrin] Allergy Abdominal Verified 03/06/19 19:02 Pain Physical Exam Vitals: Vital Signs Temp Pulse Pulse Resp BP BP Pulse Ox 03/07/19 07:55 74 03/07/19 07:45 72 03/07/19 06:05 97.6 F 69 12 134/69 95 03/06/19 23:00 97.8 F 67 12 135/76 93 L 03/06/19 19:45 60 18 118/65 93 L 03/06/19 17:01 68 18 03/06/19 16:56 65 20 103/60 97 03/06/19 16:52 65 18 03/06/19 16:41 82 20 83/47 93 L 03/06/19 16:22 67 20 93/54 90 L 03/06/19 15:45 98.3 F 73 18 80/50 86 L Intake and Output 03/06/19 03/07/19 03/07/19 22:59 06:59 14:59 Intake Total 2373 Balance 2373 Intake: Intake, IV Titration 2373 Amount Sodium Chloride 0.9% 1, 375 000 ml @ 75 mls/hr IV . [id number] [facility] Rx#:[id number] Sodium Chloride 0.9% 1, 999 000 ml @ 999 mls/hr IV . Q1H1M [facility] Rx#:[id number] Sodium Chloride 0.9% 1, 999 000 ml @ 999 mls/hr IV . Q1H1M [facility] Rx#:[id number] Other: # Voids 1 Weight 81.193 kg - Constitutional General appearance: no acute distress - EENT Eyes: EOMI - Neck Neck: no lymphadenopathy - Respiratory Respiratory: bilateral: diminished - Cardiovascular Rhythm: regular Heart sounds: normal: S1, S2 Abnormal Heart Sounds: no S3 Gallop - Gastrointestinal General gastrointestinal: soft, no tenderness - Integumentary Integumentary: no cellulitis - Psychiatric Psychiatric: A&O x's 3 Results CBC & Chem 7: 03/06/19 16:21 12 16:19 Labs: Abnormal Lab Results - Last 24 Hours (Table) 03/06/19 03/06/19 Range/Units 16:19 16:21 RBC 3.28 L (3.80-5.40) m/uL Hgb 10.7 L D (11.4-16.0) gm/dL Hct 32.8 L (34.0-46.0) % Sodium 136 L (137-145) mmol/L Creatinine 1.19 H (0.52-1.04) mg/dL Glucose 127 H (74-99) mg/dL Calcium 8.3 L (8.4-10.2) mg/dL AST 46 H (14-36) U/L Thrombosis Risk Factor Assmnt - Choose All That Apply Any of the Below Risk Factors Present?: Yes Each Factor Represents 1 point: Abnormal pulmonary function (COPD), Age 41-60 years, Medical pt on bed rest, Obesity (BMI >25) Thrombosis Risk Factor Assessment Total Risk Factor Score: 4 Thrombosis Risk Factor Assessment Level: Moderate Risk Assessment and Plan (1) Chronic bronchitis with COPD (chronic obstructive pulmonary disease) Current Visit: Yes Status: Acute Code(s): J44.9 - CHRONIC OBSTRUCTIVE PULMONARY DISEASE, UNSPECIFIED SNOMED Code(s): 608546536 (2) Hypotension Current Visit: Yes Status: Acute Code(s): I95.9 - HYPOTENSION, UNSPECIFIED SNOMED Code(s): 27037537 (3) Wheezing Current Visit: Yes Status: Acute Code(s): R06.2 - WHEEZING SNOMED Code(s): 90631956 (4) CAD (coronary artery disease) Current Visit: No Status: Acute Code(s): I25.10 - ATHSCL HEART DISEASE OF [place] CORONARY ARTERY W/O ANG PCTRS SNOMED Code(s): 81539970 (5) Opiate dependence Current Visit: No Status: Acute Code(s): F11.20 - OPIOID DEPENDENCE, UN COMPLICATED SNOMED Code(s): 83704323 (6) Tobacco abuse Current Visit: No Status: Acute Code(s): Z72.0 - TOBACCO USE SNOMED Code(s): 605023785 Plan: We will ask neurology to evaluate possible medication change if Her has not tolerated. DVT and GI prophylaxis as necessary. Start ceftriaxone for possible early pneumonia. Check CBC and CMP in a.m. per Anticipate discharge in the next 24-48 hours if she continues to stabilize. Time with Patient: Greater than 30
[2019-03-07] MEDS: ESCITALOPRAM 20 MG TAB PO SCH (09:19)
[2019-03-07] MEDS: HEPARIN SODIUM,PORCINE 5,000 UNIT/ML 1 ML VIAL SQ SCH ×3 (09:20→22:17)
[2019-03-07] MEDS: FAMOTIDINE 20 MG TAB PO SCH (09:20)
[2019-03-07] MEDS: GABAPENTIN 400 MG CAP PO SCH ×3 (09:24→22:07)
[2019-03-07] MEDS: Ticagrelor [Brilinta] 60 MG PO SCH ×2 (10:55→22:15)
[2019-03-07] MEDS: BUPRENORPHINE HCL SUBLINGUAL SCH (12:42)
[2019-03-07] MEDS: NALOXONE HCL SUBLINGUAL SCH (12:42)
[2019-03-07] MEDS: SODIUM CHLORIDE 0.9% 1,000 ML IV SCH ×2 (12:42→22:08)
[2019-03-07] MEDS: methylPREDNISolone SOD SUCCI 125 MG/2 ML VIAL IV SCH (17:07)
--- NOTE | 2019-03-07 21:49 | P.CNNES ---
History of Present Illness Consult date: 03/07/19 Reason for Consult: Seizure disorder, AED management Chief complaint: Dizziness History of Present Illness: HISTORY OF PRESENT ILLNESS: Thank you for allowing me to evaluate Ms. Lidia Chang. Ms. Chang is a 58 year-old woman with PMhx of COPD, seizures, hypothyroidism, and hypotension, presenting to [facility] for dizziness, consulting Neurology for AED management. Patient states that she came to the hospital because of dizziness and feeling unwell. She states that she never increased the dose of Keppra as recommended last time because she never got the increased dose of the medication. Patient reports that her last seizure episode was most likely 4-5 days ago. She lives with her and child, and they found her on the floor. PAST MEDICAL HISTORY: COPD, seizures, hypothyroidism, and hypotension, peripheral neuropathy PAST SURGICAL HISTORY: Heart catheterization with stent, hysterectomy, R rotator cuff repair, L subclavian/ICA stent HOME MEDICATIONS: Escitalopram, gabapentin, albuterol, Keppra, doxepin, brilinta, synthroid ALLERGIES: ibuprofen SOCIAL HISTORY: Current everyday smoker. FAMILY HISTORY: Mother and sister with cancer REVIEW OF SYSTEMS: The 14 systems are reviewed and no additional points are identified compared to the review of systems documented history and physical PHYSICAL EXAMINATION: VITAL SIGNS: T 97.6 HR 69 RR 12 BP 134/69 O2 sat 95% on 2L of O2 via NC GEN.: NAD, pleasant and cooperative HEENT: NCAT, sclera without icterus NECK: Supple SKIN AND EXTREMITIES: Warm to touch, no edema NEURO: MENTAL STATUS: Patient alert and oriented to self, place, time. Able to name the current president. Speech fluent, able to name and repeat, following all commands readily. No right and left disorientation, neglect. CRANIAL NERVES II THROUGH XII: II: L pupil is larger than R pupil, 3mm vs 2mm, reactive to light symmetrically. Visual pierson are intact. III, IV, : L eye ptosis. Extraocular movements full. No nystagmus. V: Facial sensation intact from V1-3. VII. No clear facial asymmetry. VIII: Hearing intact to finger rub bilaterally. IX, X: Symmetric palate elevation. XI: Shoulder shrug intact. XII: Tongue midline without fasciculation or atrophy. MOTOR: Normal bulk/tone. No pronator drift or tremor. Strength is 5/5 throughout all 4 extremities. SENSORY: Intact to light touch in all 4 extremities. REFLEXES: 2+ throughout. Toes are downgoing. COORDINATION: Finger to nose intact. No dysmetria. GAIT: deferred DIAGNOSTIC TESTING: LABORATORY: WBC 6.1 Hgb 10.7 Platelet 180 Na 136 K 3.7 Cl 106 CO2 23 BUN 11 Cr 1.19 Glucose 127 AST 46 ALT 21 AlkPhos 78 troponin <0.012 urinalysis negative IMAGING: MRI of brain without contrast on 04/01/2018: nonspecific white matter demyelination may be indicative of underlying vasculitis, small vessel ischemia, hypertension, migraine headaches. Multiple sclerosis felt to be less likely. MRA of the head: atheromatous changes within the internal carotid arteries at the level of the siphon. No stenosis. CTA of the neck 04/10/2018: moderate to severe diffuse atherosclerotic changes throughout common carotid arteries bilaterally including carotid bulbs without hemodynamically significant focal stenosis in common or internal carotid arteries. Patient has smoked about a pack per day since she was a teenager. She cutback to 5 cigarettes per day since July 2018. Patient does not take any Xanax or benzos. ASSESSMENT: 58 year-old woman with PMhx of COPD, seizures, hypothyroidism, and hypotension, presenting to [facility] for dizziness, consulting Neurology for AED management. Patient has been having seizures since July of this year, with various breakthrough seizures. Patient never increased her Keppra dose since last admission. She reports that she thought it was because of her medication, but since patient has been admitted, she's been getting Keppra 1500mg BID dosing and denies any dizziness. On exam, patient found with L eye ptosis along with L eye mydriasis, which is not consistent with David's syndrome, but these exam findings appear to be new since patient was seen by Dr. King on 02/28/19. Patient's chest x-ray with no obvious masses. Patient is a current smoker. CTA of neck from 03/2018 with no significant stenosis. Will obtain MRI brain w/o contrast, and will consider pursuing further stroke work-up and management pending MRI result. RECOMMENDATIONS: 1. c/w Keppra 1500mg BID 2. Patient needs to follow up with her neurologist in 3-4 weeks. 3. MRI brain w/o contrast 4. Patient was informed of [place] state law of no driving unless seizure free for 6 months, operating dangerous machinery, climbing ladders or unsupervised swimming 5. Patient was counseled about tobacco cessation. 6. Neurology will sign off if MRI brain negative for any acute or significant old findings. Past Medical History Past Medical History: Asthma, Coronary Artery Disease (CAD), Chest Pain / Angina, COPD, Seizure Disorder, Thyroid Disorder Additional Past Medical History / Comment(s): SLIGHT COPD. NEUROPATHY TO BILAT HANDS AND LEGS AND RT FOOT, History of Any Multi-Drug Resistant Organisms: None Reported Past Surgical History: Heart Catheterization With Stent, Hysterectomy, Orthopedic Surgery Additional Past Surgical History / Comment(s): RT ROTATOR CUFF REPAIR. CYSTS REMOVED FROM UNDER ARMS AND HANDS. 4 stents. 07/18 lt subclavian stent Past Anesthesia/Blood Transfusion Reactions: No Reported Reaction Date of Last Stent Placement:: nov 2017 Past Psychological History: Depression Smoking Status: Current every day smoker Past Alcohol Use History: None Reported Additional Past Alcohol Use History / Comment(s): SMOKES 1@ PPD SINCE AGE 11 Past Drug Use History: None Reported - Past Family History Mother Family Medical History: Cancer Sister(s) Family Medical History: Cancer Medications and Allergies Home Medications Medication Instructions Recorded Confirmed Type Escitalopram [Lexapro] 40 mg PO DAILY 11/28/17 03/06/19 History Gabapentin [Neurontin] 800 mg PO TID 11/29/17 03/06/19 History Atorvastatin [Lipitor] 80 mg PO HS #30 tab 11/30/17 03/06/19 Rx Albuterol Inhaler [Ventolin Hfa 2 puff INHALATION RT-Q6H PRN 05/08/18 03/06/19 History Inhaler] levETIRAcetam [Keppra] 1,500 mg PO Q12HR 07/18/18 03/06/19 History Buprenorphine HCl/Naloxone HCl 1 film SL DAILY 02/27/19 03/06/19 History [Bupreno-Nalox 2-0.5 mg Sl Film] Doxepin [SINEquan] 10 mg PO HS 02/27/19 03/06/19 History Ticagrelor [Brilinta] 60 mg PO BID 02/27/19 03/06/19 History Levothyroxine Sodium [Synthroid] 175 mcg PO DAILY 03/06/19 03/06/19 History Allergies Allergy/AdvReac Type Severity Reaction Status Date / Time ibuprofen [From Motrin] Allergy Abdominal Verified 03/06/19 19:02 Pain Physical Examination - Vital Signs Vital Signs: Vital Signs Temp Pulse Pulse Resp BP BP Pulse Ox 03/07/19 07:55 74 03/07/19 07:45 72 03/07/19 06:05 97.6 F 69 12 134/69 95 03/06/19 23:00 97.8 F 67 12 135/76 93 L 03/06/19 19:45 60 18 118/65 93 L 03/06/19 17:01 68 18 03/06/19 16:56 65 20 103/60 97 03/06/19 16:52 65 18 03/06/19 16:41 82 20 83/47 93 L 03/06/19 16:22 67 20 93/54 90 L 03/06/19 15:45 98.3 F 73 18 80/50 86 L Intake and Output 03/06/19 03/07/19 03/07/19 22:59 06:59 14:59 Intake Total 2373 Balance 2373 Intake: Intake, IV Titration 2373 Amount Sodium Chloride 0.9% 1, 375 000 ml @ 75 mls/hr IV . [id number] [facility] Rx#:[id number] Sodium Chloride 0.9% 1, 999 000 ml @ 999 mls/hr IV . Q1H1M [facility] Rx#:[id number] Sodium Chloride 0.9% 1, 999 000 ml @ 999 mls/hr IV . Q1H1M [facility] Rx#:[id number] Other: # Voids 1 Weight 81.193 kg Results - Laboratory Findings CBC and BMP: 03/06/19 16:21 03/06/19 16:19 Abnormal Lab Findings: Abnormal Labs 03/06/19 03/06/19 16:19 16:21 RBC 3.28 L Hgb 10.7 L D Hct 32.8 L Sodium 136 L Creatinine 1.19 H Glucose 127 H Calcium 8.3 L AST 46 H
[2019-03-07] MEDS: ATORVASTATIN 80 MG TAB PO SCH (22:07)
[2019-03-07] MEDS: DOXEPIN 10 MG CAP PO SCH (22:12)
[2019-03-08] MEDS: methylPREDNISolone SOD SUCCI 125 MG/2 ML VIAL IV SCH ×4 (00:09→23:47)
[2019-03-08] MEDS: LEVOTHYROXINE 50 MCG TAB PO SCH (05:44)
--- NOTE | 2019-03-08 08:28 | P.PN ---
Subjective Progress Note Date: 03/08/19 Principal diagnosis: This is a continue progress on a 58-year-old white female essentially admitted for acute respiratory failure exacerbation of COPD and altered mental status. S he supposedly has been hallucinating slightly. MRI scheduled for today. Appreciate neurologic input. Question need for psychiatric evaluation if this continues. no voiding difficulties. No significant nausea, vomiting or diarrhea Objective - Vital Signs Vital signs: Vital Signs Temp 97.4 F L 03/08/19 05:34 Pulse 57 L 03/08/19 06:19 Resp 20 03/08/19 06:19 BP 112/71 03/08/19 06:19 Pulse Ox 99 03/08/19 06:19 Intake & Output 03/07/19 03/08/19 03/08/19 18:59 06:59 18:59 Intake Total 720 300 Balance 720 300 Intake: Oral 720 300 Other: # Voids 2 1 # Bowel Movements 0 1 - Constitutional General appearance: Present: no acute distress - EENT Eyes: Absent: abnormal pupil - Neck Neck: Absent: lymphadenopathy - Respiratory Respiratory: right: wheezing, bilateral: diminished - Cardiovascular Rhythm: regular Heart sounds: normal: S1, S2 Abnormal Heart Sounds: Absent: S3 Gallop - Gastrointestinal General gastrointestinal: Present: soft. Absent: tenderness - Integumentary Integumentary: Absent: rash - Musculoskeletal Musculoskeletal: Present: generalized weakness - Psychiatric Psychiatric: Present: intact judgment & insight - Labs CBC & Chem 7: 03/06/19 16:21 03/06/19 16:19 Assessment and Plan (1) Chronic bronchitis with COPD (chronic obstructive pulmonary disease) Current Visit: Yes Status: Acute Code(s): J44.9 - CHRONIC OBSTRUCTIVE PULMONARY DISEASE, UNSPECIFIED SNOMED Code(s): 564773982 (2) Hypotension Current Visit: Yes Status: Acute Code(s): I95.9 - HYPOTENSION, UNSPECIFIED SNOMED Code(s): 67231503 (3) Wheezing Current Visit: Yes Status: Acute Code(s): R06.2 - WHEEZING SNOMED Code(s): 79660151 (4) CAD (coronary artery disease) Current Visit: No Status: Acute Code(s): I25.10 - ATHSCL HEART DISEASE OF [place] CORONARY ARTERY W/O ANG PCTRS SNOMED Code(s): 71689730 (5) Opiate dependence Current Visit: No Status: Acute Code(s): F11.20 - OPIOID DEPENDENCE, UNCOMPLICATED SNOMED Code(s): 07841724 (6) Tobacco abuse Current Visit: No Status: Acute Code(s): Z72.0 - TOBACCO USE SNOMED Code(s): 976424956 Plan: continue IV steroids at this dosing. GI and DVT prophylaxis. Appreciate neurologic input. Await MRI. Anticipate discharge in the next 24-48 hours. We will slowly wean IV steroids tomorrow.
[2019-03-08] MEDS: GABAPENTIN 400 MG CAP PO SCH ×3 (08:50→21:18)
[2019-03-08] MEDS: FAMOTIDINE 20 MG TAB PO SCH (08:50)
[2019-03-08] MEDS: ESCITALOPRAM 20 MG TAB PO SCH (08:51)
[2019-03-08] MEDS: HEPARIN SODIUM,PORCINE 5,000 UNIT/ML 1 ML VIAL SQ SCH ×3 (08:51→21:17)
[2019-03-08] MEDS: SODIUM CHLORIDE 0.9% 1,000 ML IV SCH (09:01)
[2019-03-08] MEDS: Ticagrelor [Brilinta] 60 MG PO SCH ×2 (09:02→21:28)
[2019-03-08] MEDS: NALOXONE HCL SUBLINGUAL SCH (09:02)
[2019-03-08] MEDS: BUPRENORPHINE HCL SUBLINGUAL SCH (09:02)
[2019-03-08 09:36] LABS: HGB 11.8 gm/dL (11.4-16.0); MCH 31.5 pg (25.0-35.0); MCHC 31.1 g/dL (31.0-37.0); MCV 101.2 fL (80.0-100.0); Macrocytosis Slight; Mean Platelet Volume 7.3; Platelet Count 242 k/uL (150-450); RBC 3.76 m/uL (3.80-5.40); RDW 15.3 % (11.5-15.5); WBC 12.6 k/uL (3.8-10.6)
[2019-03-08 09:52] LABS: Albumin 4.2 g/dL (3.5-5.0); Calcium 8.4 mg/dL (8.4-10.2); Potassium 4.9 mmol/L (3.5-5.1); Total Bilirubin 0.4 mg/dL (0.2-1.3); Total Protein 7.3 g/dL (6.3-8.2)
[2019-03-08 11:08] LABS: T4, Free (Free Thyroxine) 0.37 ng/dL (0.78-2.19)
--- NOTE | 2019-03-08 11:56 | MR ---
MRI brain without contrast HISTORY: Dizziness, left ptosis, miosis right pupil Multiplanar multisequence imaging through the brain Correlation to MR brain 04/01/2018 There is no restricted diffusion. There is no hemorrhage or hydrocephalus. There are expected vascula r flow voids. Orbits show symmetric appearance. Cerebellopontine angles, corpus callosum, pituitary a nd cervical medullary junction are unremarkable. Confluent periventricular and pontine hyperintensity and inversion recovery T2-weighted sequences appears more conspicuous although there are differences in technique. Paranasal sinuses and mastoid air cells are well aerated. IMPRESSION: White matter demyelination may appear more conspicuous due to differences in technique. N o evident restricted diffusion.
[2019-03-08 11:58] LABS: Glucose,Whole Blood 101 mg/dL (75-99)
[2019-03-08] MEDS: DOXEPIN 10 MG CAP PO SCH (21:18)
[2019-03-08] MEDS: ATORVASTATIN 80 MG TAB PO SCH (21:18)
--- NOTE | 2019-03-08 21:52 | P.PN ---
Progress Note - Text Progress Note Date: 03/08/19 SUBJECTIVE/INTERVAL EVENTS: No acute overnight events. Patient denies any headache, nausea, vomiting, dizziness, double/blurry vision, weakness, numbness or tingling. Patient feels okay to go home. PHYSICAL EXAMINATION: VITAL SIGNS: T 97.4 HR 44 RR 20 BP 93/50 O2 sat 99% on 2L of O2 via NC GEN.: NAD, pleasant and cooperative HEENT: NCAT, sclera without icterus NECK: Supple SKIN AND EXTREMITIES: Warm to touch, no edema NEURO: MENTAL STATUS: Patient alert and oriented to self, place, time. Able to name the current president. Speech fluent, able to name and repeat, following all commands readily. No right and left disorientation, neglect. CRANIAL NERVES II THROUGH XII: II: L pupil is larger than R pupil, 3mm vs 2mm, reactive to light symmetrically. Visual pierson are intact. III, IV, : L eye ptosis. Extraocular movements full. No nystagmus. V: Facial sensation intact from V1-3. VII. No clear facial asymmetry. VIII: Hearing intact to finger rub bilaterally. IX, X: Symmetric palate elevation. XI: Shoulder shrug intact. XII: Tongue midline without fasciculation or atrophy. MOTOR: Normal bulk/tone. No pronator drift or tremor. Strength is 5/5 throughout all 4 extremities. SENSORY: Intact to light touch in all 4 extremities. REFLEXES: 2+ throughout. Toes are downgoing. COORDINATION: Finger to nose intact. No dysmetria. GAIT: deferred DIAGNOSTIC TESTING: LABORATORY: WBC 6.1 Hgb 10.7 Platelet 180 Na 136 K 3.7 Cl 106 CO2 23 BUN 11 Cr 1.19 Glucose 127 AST 46 ALT 21 AlkPhos 78 troponin <0.012 urinalysis negative IMAGING: MRI brain w/o contrast 03/07/19: Unremarkable. Some white matter changes. MRI of brain without contrast on 04/01/2018: nonspecific white matter demyelination may be indicative of underlying vasculitis, small vessel ischemia, hypertension, migraine headaches. Multiple sclerosis felt to be less likely. MRA of the head: atheromatous changes within the internal carotid arteries at the level of the siphon. No stenosis. CTA of the neck 04/10/2018: moderate to severe diffuse atherosclerotic changes throughout common carotid arteries bilaterally including carotid bulbs without hemodynamically significant focal stenosis in common or internal carotid arteries. Patient has smoked about a pack per day since she was a teenager. She cutback to 5 cigarettes per day since July 2018. Patient does not take any Xanax or benzos. ASSESSMENT: 58 year-old woman with PMhx of COPD, seizures, hypothyroidism, and hypotension, presenting to [facility] for dizziness, consulting Neurology for AED management. Patient has been having seizures since July of this year, with various breakthrough seizures. Patient never increased her Keppra dose since last admission. She reports that she thought it was because of her medication, but since patient has been admitted, she's been getting Keppra 1500mg BID dosing and denies any dizziness. On exam, patient found with L eye ptosis along with L eye mydriasis, which is not consistent with David's syndrome, but these exam findings appear to be new since patient was seen by Dr. King on 02/28/19. Patient's chest x-ray with no obvious masses. Patient is a current smoker. CTA of neck from 03/2018 with no significant stenosis. Will obtain MRI brain w/o contrast, and will consider pursuing further stroke work-up and management pending MRI result. RECOMMENDATIONS: 1. c/w Keppra 1500mg BID 2. Patient needs to follow up with her neurologist in 3-4 weeks. 3. Patient was informed of [place] state law of no driving unless seizure free for 6 months, operating dangerous machinery, climbing ladders or unsupervised swimming 4. Patient was counseled about tobacco cessation. 5. Neurology will sign off. Please contact with additional questions or concerns.
[2019-03-09] MEDS: LEVOTHYROXINE 50 MCG TAB PO SCH (06:21)
[2019-03-09] MEDS: SODIUM CHLORIDE 0.9% 1,000 ML IV SCH ×2 (06:22→14:44)
--- NOTE | 2019-03-09 08:03 | P.PN ---
Subjective Principal diagnosis: This is a continue progress on a 58-year-old white female essentially admitted for acute respiratory failure exacerbation of COPD and altered mental status. She supposedly has been hallucinating slightly. carotid Doppler scheduled for tomorrow Appreciate neurologic input. Question need for psychiatric evaluation if this continues. no voiding difficulties. No significant nausea, vomiting or diarrhea Objective - Vital Signs Vital signs: Vital Signs Temp 97.5 F L 03/09/19 04:30 Pulse 62 03/09/19 04:30 Resp 20 03/09/19 04:30 BP 148/76 03/09/19 04:30 Pulse Ox 93 L 03/09/19 04:30 Intake & Output 03/08/19 03/09/19 03/09/19 18:59 06:59 18:59 Intake Total 240 300 Balance 240 300 Intake: Oral 240 300 Other: Voiding Method Toilet Toilet # Voids 1 2 # Bowel Movements 0 - Constitutional General appearance: Present: average body habitus - EENT Eyes: Absent: abnormal pupil ENT: Absent: hard of hearing - Neck Neck: Absent: lymphadenopathy - Respiratory Respiratory: bilateral: diminished - Cardiovascular Rhythm: regular Heart sounds: normal: S1, S2 Abnormal Heart Sounds: Absent: S3 Gallop - Gastrointestinal General gastrointestinal: Present: soft. Absent: tenderness - Psychiatric Psychiatric: Present: appropriate affect - Labs CBC & Chem 7: 03/08/19 08:29 03/08/19 08:29 Labs: Abnormal Lab Results - Last 24 Hours (Table) 03/06/19 03/08/19 03/08/19 Range/Units 23:09 08:29 08:29 WBC 12.6 H (3.8-10.6) k/uL RBC 3.76 L (3.80-5.40) m/uL MCV 101.2 H (80.0-100.0) fL Glucose 116 H (74-99) mg/dL POC Glucose (mg/dL) (75-99) mg/dL AST 39 H (14-36) U/L LDL Cholesterol, Calc 100 H (0-99) mg/dL HDL Cholesterol 70 H (40-60) mg/dL TSH 48.300 H (0.465-4.680) mIU/L Free T4 0.37 L (0.78-2.19) ng/dL Levetiracetam 63.0 H (3.0-60.0) ug/mL 03/08/19 Range/Units 11:56 WBC (3.8-10.6) k/uL RBC (3.80-5.40) m/uL MCV (80.0-100.0) fL Glucose (74-99) mg/dL POC Glucose (mg/dL) 101 H (75-99) mg/dL AST (14-36) U/L LDL Cholesterol, Calc (0-99) mg/dL HDL Cholesterol (40-60) mg/dL TSH (0.465-4.680) mIU/L Free T4 (0.78-2.19) ng/dL Levetiracetam (3.0-60.0) ug/mL Assessment and Plan (1) Chronic bronchitis with COPD (chronic obstructive pulmonary disease) Current Visit: Yes Status: Acute Code(s): J44.9 - CHRONIC OBSTRUCTIVE PULMONARY DISEASE, UNSPECIFIED SNOMED Code(s): 348233752 (2) Hypotension Current Visit: Yes Status: Acute Code(s): I95.9 - HYPOTENSION, UNSPECIFIED SNOMED Code(s): 77699920 (3) Wheezing Current Visit: Yes Status: Acute Code(s): R06.2 - WHEEZING SNOMED Code(s): 74583326 (4) CAD (coronary artery disease) Current Visit: No Status: Acute Code(s): I25.10 - ATHSCL HEART DISEASE OF [place] CORONARY ARTERY W/O ANG PCTRS SNOMED Code(s): 70094172 (5) Opiate dependence Current Visit: No Status: Acute Code(s): F11.20 - OPIOID DEPENDENCE, UNCOMPLICATED SNOMED Code(s): 53376935 (6) Tobacco abuse Current Visit: No Status: Acute Code(s): Z72.0 - TOBACCO USE SNOMED Code(s): 943877842 Plan: wean Solu-Medrol today. Oral steroids most likely in the a.m. Home oxygen will be instituted prior to discharge. Anticipate discharge in a.m. Dr. Gibson's group will be covering for the weekend. Increase activity as possible. We had a short discussion with her daughter who has feels that there have appropriate support to keep her home. She precautions otherwise once discharged. Time with Patient: Less than 30
[2019-03-09] MEDS: BUPRENORPHINE HCL SUBLINGUAL SCH (09:11)
[2019-03-09] MEDS: NALOXONE HCL SUBLINGUAL SCH (09:11)
[2019-03-09] MEDS: Ticagrelor [Brilinta] 60 MG PO SCH ×2 (09:21→20:53)
[2019-03-09] MEDS: FAMOTIDINE 20 MG TAB PO SCH (09:26)
[2019-03-09] MEDS: HEPARIN SODIUM,PORCINE 5,000 UNIT/ML 1 ML VIAL SQ SCH ×3 (09:26→20:52)
[2019-03-09] MEDS: GABAPENTIN 400 MG CAP PO SCH ×3 (09:26→20:52)
[2019-03-09] MEDS: ESCITALOPRAM 20 MG TAB PO SCH (09:26)
[2019-03-09] MEDS: methylPREDNISolone SOD SUCCI 125 MG/2 ML VIAL IV SCH (10:56)
[2019-03-09 14:05] VITALS: RESP 16
[2019-03-09] MEDS ORDERED: methylPREDNISolone SOD SUCCI 40 MG/ML 1 ML VIAL IV SCH (16:00)
--- NOTE | 2019-03-09 16:53 | CT ---
EXAMINATION TYPE: CT angio chest DATE OF EXAM: 03/09/2019 COMPARISON: None HISTORY: Carotid occlusion. History of cardiac stents. Chest pain CT DLP: 839 mGycm Automated exposure control for dose reduction was used. CONTRAST: Performed without and with IV Contrast, patient injected with 50ml mL of Isovue 370. There are 3-D post processed images. There is some patchy linear density at both lung bases related to scarring and atelectasis. Heart siz e is normal. There is no pericardial effusion. There are no hilar masses. There is normal contrast op acification of the pulmonary arteries. There is suboptimal contrast density in the smaller branches. There is no sign of aortic aneurysm or dissection. I see no pulmonary artery filling defect. There is no mediastinal adenopathy. There are a few paratracheal lymph nodes that measure less than 1 cm. There is dense coronary artery calcification. There are no hilar masses. There is some degenerative hypertrophic spurring in the thoracic spine. There is no significant compr ession deformity. IMPRESSION: There is some scarring and atelectasis at the lung bases. No evidence of pulmonary embolism.
--- NOTE | 2019-03-09 17:04 | CT ---
EXAMINATION TYPE: CT angio neck DATE OF EXAM: 03/09/2019 COMPARISON: 04/10/2018 HISTORY: Carotid occlusion. CT DLP: 260.2 mGycm Automated exposure control for dose reduction was used. CONTRAST: Performed with IV Contrast, patient injected with 50ml mL of Isovue 370. Our 3-D post processed images. FINDINGS: Thoracic aorta is atheromatous. There is atherosclerotic plaque formation in the proximal subclavian arteries. There is arterial flow in the vertebral arteries bilaterally. Right vertebral artery is lar jose than the left. There is arterial flow in the common internal and external carotid arteries bilate rally. There is atherosclerotic plaque at the carotid artery bifurcations. There is subtotal occlusio n of the proximal left internal carotid artery. Stenosis is more than 90%. There is approximate 30% s tenosis at the origin of the right internal carotid artery. There is arterial flow in the intracranial internal carotid arteries.. There is arterial flow in the vertebrobasilar artery system. IMPRESSION: There is approximate 90% stenosis of the origin of the left internal carotid artery. There is approxi mate 30% stenosis origin of the right internal carotid artery. There is arterial flow in both vertebr al arteries.
[2019-03-09] MEDS: ATORVASTATIN 80 MG TAB PO SCH (20:52)
[2019-03-09] MEDS: DOXEPIN 10 MG CAP PO SCH (20:52)
[2019-03-10] MEDS: LEVOTHYROXINE 50 MCG TAB PO SCH (06:03)
[2019-03-10 07:40] VITALS: BP 182/85; PULSE 72; TEMP 97.4
[2019-03-10] MEDS: NALOXONE HCL SUBLINGUAL SCH (08:56)
[2019-03-10] MEDS: HEPARIN SODIUM,PORCINE 5,000 UNIT/ML 1 ML VIAL SQ SCH (08:56)
[2019-03-10] MEDS: BUPRENORPHINE HCL SUBLINGUAL SCH (08:56)
[2019-03-10] MEDS: Ticagrelor [Brilinta] 60 MG PO SCH (08:57)
[2019-03-10] MEDS ORDERED: predniSONE 20 MG TAB PO SCH (09:00)
[2019-03-10] MEDS: FAMOTIDINE 20 MG TAB PO SCH (09:02)
[2019-03-10] MEDS: GABAPENTIN 400 MG CAP PO SCH (09:02)
[2019-03-10] MEDS: ESCITALOPRAM 20 MG TAB PO SCH (09:02)
--- NOTE | 2019-03-10 14:16 | P.DS ---
Providers Date of admission: 03/08/19 10:41 Attending physician: Jose F Mcwilliams Consults: 03/07/19 08:50 Consult Physician Routine Consulting Provider: Maria Luz Leung Consult Reason/Comments: Seizure disorder, Patient states not tolerating increase in Keppra dosing Do you want consulting provider notified?: Yes Primary care physician: Jose F Mcwilliams Hospital Course: Patient is admitted for altered mental status patient underwent extensive evaluation including MRI of brain CT angios the head and neck CT angios showed some irregular stenosis of 90% but no intervention is necessary neurology evaluated the patient the believe her altered mental status is secondary to noncompliance with Keppra she has not been taking As she is supposed to which is 1500 twice a day counseling regarding this was provided and the patient is being discharged today in stable medical condition to home. Patient was also treated for COPD exacerbation patient received 3 days of antibiotic will not require any more antibiotic, patient will be discharged on weaning dose of steroids inhalational treatments. Patient for will follow Dr. Mcwilliams as an outpatient PHYSICAL EXAMINATION: GENERAL: The patient is alert and oriented x3, not in any acute distress. Well developed, well nourished. HEENT: Pupils are round and equally reacting to light. EOMI. No scleral icterus. No conjunctival pallor. Normocephalic, atraumatic. No pharyngeal erythema. No thyromegaly. CARDIOVASCULAR: S1 and S2 present. No murmurs, rubs, or gallops. PULMONARY: Minimal expiratory wheezing good air entry bilateral lung pierson no crackles were appreciated ABDOMEN: Soft, nontender, nondistended, normoactive bowel sounds. No palpable organomegaly. MUSCULOSKELETAL: No joint swelling or deformity. EXTREMITIES: No cyanosis, clubbing, or pedal edema. NEUROLOGICAL: Gross neurological examination did not reveal any focal deficits. SKIN: No rashes. The rest of the chronic recurrent problems hospital physician course please refer to dictation of progress note from Dr. Mcwilliams from yesterday Patient Condition at Discharge: Fair Plan - Discharge Summary New Discharge Prescriptions: New Budesonide-Formot 160-4.5 Mcg [Symbicort 160-4.5 Mcg Inhaler] 2 puff INHALATION BID #1 inhaler Albuterol Inhaler [Ventolin Hfa Inhaler] 1 - 2 puff INHALATION Q6HR PRN #1 inhaler PRN Reason: Shortness Of Breath Or Wheezing Continue Escitalopram [Lexapro] 40 mg PO DAILY Gabapentin [Neurontin] 800 mg PO TID Atorvastatin [Lipitor] 80 mg PO HS #30 tab Albuterol Inhaler [Ventolin Hfa Inhaler] 2 puff INHALATION RT-Q6H PRN PRN Reason: Dyspnea levETIRAcetam [Keppra] 1,500 mg PO Q12HR Ticagrelor [Brilinta] 60 mg PO BID Buprenorphine HCl/Naloxone HCl [Bupreno-Nalox 2-0.5 mg Sl Film] 1 film SL DAILY Doxepin [SINEquan] 10 mg PO HS Levothyroxine Sodium [Synthroid] 175 mcg PO DAILY Discharge Medication List Escitalopram [Lexapro] 40 mg PO DAILY 11/28/17 [History] Gabapentin [Neurontin] 800 mg PO TID 11/29/17 [History] Atorvastatin [Lipitor] 80 mg PO HS #30 tab 11/30/17 [Rx] Albuterol Inhaler [Ventolin Hfa Inhaler] 2 puff INHALATION RT-Q6H PRN 05/08/18 [History] levETIRAcetam [Keppra] 1,500 mg PO Q12HR 07/18/18 [History] Buprenorphine HCl/Naloxone HCl [Bupreno-Nalox 2-0.5 mg Sl Film] 1 film SL DAILY 02/27/19 [History] Doxepin [SINEquan] 10 mg PO HS 02/27/19 [History] Ticagrelor [Brilinta] 60 mg PO BID 02/27/19 [History] Levothyroxine Sodium [Synthroid] 175 mcg PO DAILY 03/06/19 [History] Albuterol Inhaler [Ventolin Hfa Inhaler] 1 - 2 puff INHALATION Q6HR PRN #1 inhaler 03/10/19 [Rx] Budesonide-Formot 160-4.5 Mcg [Symbicort 160-4.5 Mcg Inhaler] 2 puff INHALATION BID #1 inhaler 03/10/19 [Rx] Follow up Appointment(s)/Referral(s): [facility], [NON-STAFF] - Jose F Mcwilliams MD [Primary Care Provider] - 3 Days Discharge Disposition: HOME SELF-CARE
== END 2019-03-10 15:11 | disposition home health service (06) | DRG 190 ==
LOC: EC 15:16 → 6NMEDSUR 19:34 → OBSVTOIN 03-08 10:41
PROVIDERS: ADMIT Family Medicine; ATTEND Family Medicine
DX: J44.1 Chronic obstructive pulmonary disease with (acute) exacerbation (principal); J96.00 Acute respiratory failure, unspecified whether with hypoxia or hypercapnia; F11.20 Opioid dependence, uncomplicated; E03.9 Hypothyroidism, unspecified; F17.200 Nicotine dependence, unspecified, uncomplicated; F32.9 Major depressive disorder, single episode, unspecified; G40.909 Epilepsy, unspecified, not intractable, without status epilepticus; H02.402 Unspecified ptosis of left eyelid; H57.04 Mydriasis; I25.10 Atherosclerotic heart disease of native coronary artery without angina pectoris; Z79.02 Long term (current) use of antithrombotics/antiplatelets; Z79.890 Hormone replacement therapy; Z79.899 Other long term (current) drug therapy; Z80.9 Family history of malignant neoplasm, unspecified; Z90.710 Acquired absence of both cervix and uterus; Z91.14 Patient's other noncompliance with medication regimen; Z88.6 Allergy status to analgesic agent; G62.9 Polyneuropathy, unspecified; I95.9 Hypotension, unspecified; R41.82 Altered mental status, unspecified; T42.6X6A Underdosing of other antiepileptic and sedative-hypnotic drugs, initial encounter; Z91.128 Patient's intentional underdosing of medication regimen for other reason
CPT/HCPCS: 36415; 70498; 70551; 71046; 71275; 80053; 80061; 80177; 81003; 83036; 84439; 84443; 84484; 85025; 85027; 85379; 85610; 85730; 93005; 94640; 96361; 96374; 99285

== ENCOUNTER 2019-04-24 12:43 | Observation (INO) | payer MEDICARE ==
[2019-04-24] MEDS ORDERED: SODIUM CHLORIDE 0.9% 1,000 ML IV STA ×2 (13:08→14:24)
[2019-04-24] MEDS ORDERED: SODIUM CHLORIDE 0.9% 500 ML 500 ML IV STA (13:08)
--- NOTE | 2019-04-24 13:13 | ED ---
General Adult HPI - General Chief complaint: Seizure Stated complaint: Seizures Time Seen by Provider: 04/24/19 12:56 Source: patient, family, RN notes reviewed Mode of arrival: wheelchair Limitations: no limitations - History of Present Illness Initial comments: Patient is a pleasant 58-year-old female presenting to the emergency department with drowsiness after seizure. Patient did have seizure early this morning around 6 AM she estimates. Patient was sleeping at the time and is unclear how long the seizure lasted for. Patient does have new onset seizure since November and has had 4 seizures since that time. Patient has had several CT scans of her brain since that time. Patient states she was confused following the seizure however since that time has just been drowsy. Patient has had issues with her blood pressure and has had several hospital visits recently for that, patient and family are unclear why however. - Related Data Home Medications Medication Instructions Recorded Confirmed Escitalopram [Lexapro] 40 mg PO DAILY 11/28/17 03/06/19 Gabapentin [Neurontin] 800 mg PO TID 11/29/17 03/06/19 Albuterol Inhaler [Ventolin Hfa 2 puff INHALATION RT-Q6H PRN 05/08/18 03/06/19 Inhaler] levETIRAcetam [Keppra] 1,500 mg PO Q12HR 07/18/18 03/06/19 Buprenorphine HCl/Naloxone HCl 1 film SL DAILY 02/27/19 03/06/19 [Bupreno-Nalox 2-0.5 mg Sl Film] Doxepin [SINEquan] 10 mg PO HS 02/27/19 03/06/19 Ticagrelor [Brilinta] 60 mg PO BID 02/27/19 03/06/19 Levothyroxine Sodium [Synthroid] 175 mcg PO DAILY 03/06/19 03/06/19 Previous Rx's Medication Instructions Recorded Atorvastatin [Lipitor] 80 mg PO HS #30 tab 11/30/17 Albuterol Inhaler [Ventolin Hfa 1 - 2 puff INHALATION Q6HR PRN #1 03/10/19 Inhaler] inhaler Budesonide-Formot 160-4.5 Mcg 2 puff INHALATION BID #1 inhaler 03/10/19 [Symbicort 160-4.5 Mcg Inhaler] Famotidine [Pepcid] 20 mg PO BID #30 tablet 03/10/19 predniSONE 10 mg PO DAILY #30 tab 03/10/19 Allergies Allergy/AdvReac Type Severity Reaction Status Date / Time ibuprofen [From Motrin] Allergy Abdominal Verified 04/24/19 12:50 Pain Review of Systems ROS Statement: Those systems with pertinent positive or pertinent negative responses have been documented in the HPI. ROS Other: All systems not noted in ROS Statement are negative. Constitutional: Denies: fever Eyes: Denies: eye pain ENT: Denies: ear pain Respiratory: Denies: cough, dyspnea Cardiovascular: Denies: chest pain Endocrine: Reports: fatigue Gastrointestinal: Denies: abdominal pain Genitourinary: Denies: dysuria Musculoskeletal: Denies: back pain Skin: Denies: rash Neurological: Reports: as per HPI Past Medical History Past Medical History: Asthma, Coronary Artery Disease (CAD), Chest Pain / Angina, COPD, Seizure Disorder, Thyroid Disorder Additional Past Medical History / Comment(s): SLIGHT COPD. NEUROPATHY TO BILAT HANDS AND LEGS AND RT FOOT, History of Any Multi-Drug Resistant Organisms: None Reported Past Surgical History: Heart Catheterization With Stent, Hysterectomy, Orthopedic Surgery Additional Past Surgical History / Comment(s): RT ROTATOR CUFF REPAIR. CYSTS REMOVED FROM UNDER ARMS AND HANDS. 4 stents. 07/18 lt subclavian stent Past Anesthesia/Blood Transfusion Reactions: No Reported Reaction Date of Last Stent Placement:: nov 2017 Past Psychological History: Depression Smoking Status: Current every day smoker Past Alcohol Use History: None Reported Past Drug Use History: None Reported - Past Family History Mother Family Medical History: Cancer Sister(s) Family Medical History: Cancer General Exam Limitations: no limitations General appearance: alert, in no apparent distress Head exam: Present: normocephalic Eye exam: Present: normal appearance, PERRL, EOMI. Absent: nystagmus ENT exam: Present: normal oropharynx Neck exam: Present: normal inspection. Absent: tenderness, meningismus Respiratory exam: Present: normal lung sounds bilaterally Cardiovascular Exam: Present: regular rate, normal rhythm GI/Abdominal exam: Present: soft. Absent: tenderness Extremities exam: Present: normal inspection Neurological exam: Present: alert, CN II-XII intact. Absent: motor sensory deficit Expanded Neurological exam: Present: protecting the airway Patient oriented to: Present: person, place. Absent: time Cranial nerves: EOM's Intact: Normal Motor strength exam: RUE: 5, LUE: 5, RLE: 5, LLE: 5 Eye Response: (3) open to voice Motor Response: (6) obeys commands Verbal Response: (4) confused conversation Psychiatric exam: Present: normal affect, normal mood Skin exam: Present: normal color Course Vital Signs 04/24/19 04/24/19 04/24/19 12:46 13:15 13:25 Temperature 98.0 F Pulse Rate 66 66 66 Respiratory 20 13 18 Rate Blood Pressure 73/45 94/40 84/50 O2 Sat by Pulse 95 94 L 91 L Oximetry 04/24/19 04/24/19 04/24/19 13:30 14:00 14:30 Temperature Pulse Rate 64 63 64 Respiratory 16 11 L 13 Rate Blood Pressure 84/50 92/53 83/38 O2 Sat by Pulse 93 L 93 L 94 L Oximetry 04/24/19 15:00 Temperature Pulse Rate 66 Respiratory 14 Rate Blood Pressure 93/40 O2 Sat by Pulse 94 L Oximetry - Reevaluation(s) Reevaluation #1: 04/24/19 15:Patient again reevaluated and resting comfortably in bed. Systolic blood pressure 95, some repeat systolic blood pressure 101. Dr. Mcwilliams has been paged 04/24/19 16:29 Case was discussed with Dr. Mcwilliams who states these blood pressures are not abnormal for the patient and does recommends fluid at this time. He will admit his patient and agrees with consult with neurology. EKG Findings - EKG Comments: EKG Findings:: Normal sinus rhythm 67. NC 158. QRS 114. QT 426. QTc 450. Left axis. Normal QRS. No acute ST change. Medical Decision Making - Lab Data Result diagrams: 04/24/19 13:01 04/24/19 13:01 Lab Results 04/24/19 04/24/19 04/24/19 Range/Units 13:01 13:01 14:50 WBC 9.3 (3.8-10.6) k/uL RBC 3.99 (3.80-5.40) m/uL Hgb 12.8 (11.4-16.0) gm/dL Hct 40.4 (34.0-46.0) % MCV 101.2 H (80.0-100.0) fL MCH 32.0 (25.0-35.0) pg MCHC 31.7 (31.0-37.0) g/dL RDW 13.7 (11.5-15.5) % Plt Count 276 (150-450) k/uL Neutrophils % 46 % Lymphocytes % 38 % Monocytes % 7 % Eosinophils % 4 % Basophils % 1 % Neutrophils # 4.3 (1.3-7.7) k/uL Lymphocytes # 3.5 (1.0-4.8) k/uL Monocytes # 0.7 (0-1.0) k/uL Eosinophils # 0.3 (0-0.7) k/uL Basophils # 0.1 (0-0.2) k/uL Macrocytosis Slight Sodium 137 (137-145) mmol/L Potassium 4.9 (3.5-5.1) mmol/L Chloride 108 H (98-107) mmol/L Carbon Dioxide 18 L (22-30) mmol/L Anion Gap 11 mmol/L BUN 23 H (7-17) mg/dL Creatinine 1.28 H (0.52-1.04) mg/dL Est GFR (CKD-EPI)AfAm 53 (>60 ml/min/1.73 sqM) Est GFR (CKD-EPI)NonAf 46 (>60 ml/min/1.73 sqM) Glucose 108 H (74-99) mg/dL Calcium 8.7 (8.4-10.2) mg/dL Total Bilirubin 0.3 (0.2-1.3) mg/dL AST 22 (14-36) U/L ALT 10 (4-34) U/L Alkaline Phosphatase 94 (38-126) U/L Total Protein 7.2 (6.3-8.2) g/dL Albumin 4.1 (3.5-5.0) g/dL Urine Color Light Yellow Urine Appearance Clear (Clear) Urine pH 5.5 (5.0-8.0) Ur Specific [place] 1.003 (1.001-1.035) Urine Protein Negative (Negative) Urine Glucose (UA) Negative (Negative) Urine Ketones Negative (Negative) Urine Blood Negative (Negative) Urine Nitrite Negative (Negative) Urine Bilirubin Negative (Negative) Urine Urobilinogen <2.0 (<2.0) mg/dL Ur Leukocyte Esterase Negative (Negative) Disposition Clinical Impression: Generalized seizure Disposition: ADMITTED IP TO THIS [facility] Is patient prescribed a controlled substance at d/c from ED?: No Referrals: Jose F Mcwilliams MD [Primary Care Provider] - 1-2 days Decision Time: 16:29
[2019-04-24 13:33] LABS: Basophils # (A) 0.1 k/uL (0-0.2); Basophils % (A) 1 %; Eosinophils # (A) 0.3 k/uL (0-0.7); Eosinophils % (A) 4 %; HCT 40.4 % (34.0-46.0); HGB 12.8 gm/dL (11.4-16.0); Lymphocytes # (A) 3.5 k/uL (1.0-4.8); Lymphocytes % (A) 38 %; MCHC 31.7 g/dL (31.0-37.0); MCV 101.2 fL (80.0-100.0); Macrocytosis Slight; Mean Platelet Volume 7.3; Monocytes # (A) 0.7 k/uL (0-1.0); Monocytes % (A) 7 %; Neutrophils # (A) 4.3 k/uL (1.3-7.7); Neutrophils % (A) 46 %; Platelet Count 276 k/uL (150-450); RBC 3.99 m/uL (3.80-5.40); RDW 13.7 % (11.5-15.5); WBC 9.3 k/uL (3.8-10.6)
[2019-04-24 13:41] LABS: Albumin 4.1 g/dL (3.5-5.0); Calcium 8.7 mg/dL (8.4-10.2); Potassium 4.9 mmol/L (3.5-5.1); Total Bilirubin 0.3 mg/dL (0.2-1.3); Total Protein 7.2 g/dL (6.3-8.2)
[2019-04-24 15:03] LABS: Appearance,Urine Clear (Clear); Bilirubin,Urine Negative (Negative); Blood,Urine Negative (Negative); Color,Urine Light Yellow; Glucose,Urine (UA) Negative (Negative); Ketones,Urine Negative (Negative); Leukocyte Esterase,Urine Negative (Negative); Nitrite,Urine Negative (Negative); PH, Urine 5.5 (5.0-8.0); Protein,Urine Negative (Negative); Specific Gravity,Urine 1.003 (1.001-1.035); Urobilinogen,Urine <2.0 mg/dL (<2.0)
[2019-04-24] MEDS ORDERED: NALOXONE 0.4 MG/ML 1 ML VIAL IV PRN (16:30)
[2019-04-24] MEDS ORDERED: LORazepam 2 MG/ML INJ IV PRN (16:34)
[2019-04-24] MEDS ORDERED: ALBUTEROL NEBULIZED 2.5 MG/3 ML INHALATION PRN (20:09)
[2019-04-24] MEDS ORDERED: BUPRENORPHINE HCL SUBLINGUAL ONE (21:00)
[2019-04-24] MEDS ORDERED: DOXEPIN 10 MG CAP PO SCH (21:00)
[2019-04-24] MEDS ORDERED: NALOXONE HCL SUBLINGUAL ONE (21:00)
[2019-04-24] MEDS: levETIRAcetam 500 MG TAB PO SCH (21:07)
[2019-04-24] MEDS: GABAPENTIN 400 MG CAP PO SCH (21:07)
[2019-04-24] MEDS: ATORVASTATIN 80 MG TAB PO SCH ×2 (21:08→21:19)
[2019-04-25] MEDS ORDERED: LEVOTHYROXINE 75 MCG TAB PO SCH (06:30)
[2019-04-25] MEDS ORDERED: LEVOTHYROXINE 100 MCG TAB PO SCH (06:30)
[2019-04-25] MEDS ORDERED: SYMBICORT 160-4.5 MCG INHALER INHALATION SCH (08:00)
--- NOTE | 2019-04-25 08:36 | P.HPIM ---
History of Present Illness H&P Date: 04/25/19 Chief Complaint: Seizure activity The patient is here essentially for seizure activity. She's had intermittent issues over the last month. Keppra has been increased in the past. However, she's had sudden onset new seizure activity as of yesterday. No ethanol use is noted. We discussed last modifications at length. Review of Systems Constitutional: Denies chills, Denies fever Eyes: denies blurred vision, denies pain Ears, nose, mouth and throat: Denies headache, Denies sore throat Cardiovascular: Denies chest pain, Denies shortness of breath Respiratory: Denies cough Gastrointestinal: Denies abdominal pain, Denies diarrhea, Denies nausea, Denies vomiting Neurological: Reports convulsions, Reports seizures Psychiatric: Denies anxiety, Denies depression Past Medical History Past Medical History: Asthma, Coronary Artery Disease (CAD), Chest Pain / Angina, COPD, Seizure Disorder, Thyroid Disorder Additional Past Medical History / Comment(s): SLIGHT COPD. NEUROPATHY TO BILAT HANDS AND LEGS AND RT FOOT, History of Any Multi-Drug Resistant Organisms: None Reported Past Surgical History: Heart Catheterization With Stent, Hysterectomy, Orthopedic Surgery Additional Past Surgical History / Comment(s): RT ROTATOR CUFF REPAIR. CYSTS REMOVED FROM UNDER ARMS AND HANDS. 4 stents. 07/18 lt subclavian stent Past Anesthesia/Blood Transfusion Reactions: No Reported Reaction Date of Last Stent Placement:: nov 2017 Past Psychological History: Depression Smoking Status: Current every day smoker Past Alcohol Use History: None Reported Additional Past Alcohol Use History / Comment(s): SMOKES 1/2@ PPD SINCE AGE 11 Past Drug Use History: None Reported - Past Family History Mother Family Medical History: Cancer Sister(s) Family Medical History: Cancer Medications and Allergies Home Medications Medication Instructions Recorded Confirmed Type Escitalopram [Lexapro] 40 mg PO DAILY 11/28/17 04/24/19 History Gabapentin [Neurontin] 800 mg PO TID 11/29/17 04/24/19 History Atorvastatin [Lipitor] 80 mg PO HS #30 tab 11/30/17 04/24/19 Rx Albuterol Inhaler [Ventolin Hfa 2 puff INHALATION RT-Q6H PRN 05/08/18 04/24/19 History Inhaler] levETIRAcetam [Keppra] 1,500 mg PO Q12HR 07/18/18 04/24/19 History Buprenorphine HCl/Naloxone HCl 1 film SL DAILY 02/27/19 04/24/19 History [Bupreno-Nalox 2-0.5 mg Sl Film] Doxepin [SINEquan] 10 mg PO HS 02/27/19 04/24/19 History Ticagrelor [Brilinta] 60 mg PO BID 02/27/19 04/24/19 History Levothyroxine Sodium [Synthroid] 175 mcg PO DAILY 03/06/19 04/24/19 History Budesonide-Formot 160-4.5 Mcg 2 puff INHALATION RT-BID 04/24/19 04/24/19 History [Symbicort 160-4.5 Mcg Inhaler] Buprenorphine HCl/Naloxone HCl SUBLINGUAL HS 04/24/19 History [Suboxone 8 mg-2 mg Sl Film] Allergies Allergy/AdvReac Type Severity Reaction Status Date / Time ibuprofen [From Motrin] Allergy Abdominal Verified 04/24/19 18:00 Pain Physical Exam Vitals: Vital Signs Temp Pulse Pulse Resp BP BP Pulse Ox 04/25/19 05:48 98.8 F 70 18 110/66 95 04/24/19 22:51 113/52 04/24/19 20:36 98.4 F 78 18 97/63 94 L 04/24/19 17:29 98.2 F 04/24/19 17:00 62 18 90/44 94 L 04/24/19 16:00 64 13 81/51 95 04/24/19 15:30 67 15 104/40 93 L 04/24/19 15:00 66 14 93/40 94 L 04/24/19 14:30 64 13 83/38 94 L 04/24/19 14:00 63 11 L 92/53 93 L 04/24/19 13:30 64 16 84/50 93 L 04/24/19 13:25 66 18 84/50 91 L 04/24/19 13:15 66 13 94/40 94 L 04/24/19 12:46 98.0 F 66 20 73/45 95 Intake and Output 04/24/19 04/25/19 04/25/19 22:59 06:59 14:59 Intake Total 375 Balance 375 Intake: Intake, IV Titration 375 Amount Sodium Chloride 0.9% 1, 375 000 ml @ 125 mls/hr IV . Q8H STA Rx#:[id number] Other: Voiding Method Toilet # Voids 2 Weight 78.018 kg - Constitutional General appearance: no acute distress - EENT Eyes: EOMI - Neck Neck: no lymphadenopathy - Respiratory Respiratory: bilateral: CTA - Cardiovascular Rhythm: regular Heart sounds: normal: S1, S2 Abnormal Heart Sounds: no S3 Gallop - Gastrointestinal General gastrointestinal: soft, no tenderness - Integumentary Integumentary: normal, no rash - Psychiatric Psychiatric: A&O x's 3 Results CBC & Chem 7: 04/24/19 13:01 04/24/19 13:01 Labs: Abnormal Lab Results - Last 24 Hours (Table) 04/24/19 04/24/19 Range/Units 13: 13:01 MCV 101.2 H (80.0-100.0) fL Chloride 108 H (98-107) mmol/L Carbon Dioxide 18 L (22-30) mmol/L BUN 23 H (7-17) mg/dL Creatinine 1.28 H (0.52-1.04) mg/dL Glucose 108 H (74-99) mg/dL Assessment and Plan (1) Generalized seizure Current Visit: Yes Status: Acute Code(s): R56.9 - UNSPECIFIED CONVULSIONS SNOMED Code(s): 601099676 (2) Breakthrough seizure Current Visit: No Status: Acute Code(s): G40.919 - EPILEPSY, UNSP, INTRACTABLE, WITHOUT STATUS EPILEPTICUS SNOMED Code(s): 917911225 (3) Hypotension Current Visit: No Status: Acute Code(s): I95.9 - HYPOTENSION, UNSPECIFIED SNOMED Code(s): 88459968 (4) Opiate dependence Current Visit: No Status: Acute Code(s): F11.20 - OPIOID DEPENDENCE, UNCOMPLICATED SNOMED Code(s): 60157673 (5) Tobacco abuse Current Visit: No Status: Acute Code(s): Z72.0 - TOBACCO USE SNOMED Code(s): 797410703 Plan: Watch blood pressure closely. Probable bullous IV fluid as necessary. Check CBC and CMP in a.m. Neurologic evaluation is pending. Appreciate consultation. Prognosis is guarded. Time with Patient: Greater than 30
[2019-04-25] MEDS ORDERED: ESCITALOPRAM 20 MG TAB PO SCH (09:00)
[2019-04-25] MEDS: levETIRAcetam 500 MG TAB PO SCH (09:22)
[2019-04-25] MEDS: GABAPENTIN 400 MG CAP PO SCH ×2 (09:22→16:51)
[2019-04-25 12:11] VITALS: BP 138/41; PULSE 82; RESP 17; TEMP 98.6
--- NOTE | 2019-04-25 13:59 | P.CNNES ---
History of Present Illness Consult date: 04/25/19 Reason for Consult: seizure History of Present Illness: HISTORY OF PRESENT ILLNESS: Thank you for allowing me to evaluate Ms. Lidia Chang. Ms. Chang is a 58 year-old woman with PMhx of COPD, seizures, hypothyroidism, and hypotension, presenting to [facility] for dizziness, consulting Neurology for seizure episode. Pt states that she woke up yesterday morning around 5am and felt as though she was not at her house. She woke up her boyfriend, Samson, who patient was able to recognize, telling him that she thinks she'll have a seizure. She felt dizzy and unwell. She knew she had a seizure because she was shaking (she was conscious at the time) and she had urinary incontinence. No tongue biting or bowel incontinence. Denies headache, nausea, vomiting, weakness, numbness or tingling. States that Dr. Mcwilliams, her PMD, had told her to break one of her seizure medication in half and take 1.5 pills as it was too much for her. Of note, patient was seen by me in 02/2019. "Patient states that she came to the hospital because of dizziness and feeling unwell. She states that she never increased the dose of Keppra as recommended last time because she never got the increased dose of the medication. Patient reports that her last seizure episode was most likely 4-5 days ago. She lives with her and child, and they found her on the floor." PAST MEDICAL HISTORY: COPD, seizures, hypothyroidism, and hypotension, peripheral neuropathy PAST SURGICAL HISTORY: Heart catheterization with stent, hysterectomy, R rotator cuff repair, L subclavian/ICA stent HOME MEDICATIONS: Escitalopram, gabapentin, albuterol, Keppra, doxepin, brilinta, synthroid ALLERGIES: ibuprofen SOCIAL HISTORY: Current everyday smoker. Patient has smoked about a pack per day since she was a teenager. She cutback to 5 cigarettes per day since July 2018. Patient does not take any Xanax or benzos. FAMILY HISTORY: Mother and sister with cancer REVIEW OF SYSTEMS: The 14 systems are reviewed and no additional points are identified compared to the review of systems documented history and physical PHYSICAL EXAMINATION: VITAL SIGNS: T 97 HR 77 RR 18 BP 87/57 O2 sat 97% on RA GEN.: NAD, pleasant and cooperative HEENT: NCAT, sclera without icterus NECK: Supple SKIN AND EXTREMITIES: Warm to touch, no edema NEURO: MENTAL STATUS: Patient alert and oriented to self, place, time. Able to name the current president. Speech fluent, able to name and repeat, following all commands readily. No right and left disorientation, neglect. CRANIAL NERVES II THROUGH XII: II: PERLL. Visual pierson are intact to confrontation. III, IV, : mild L eye ptosis. Extraocular movements full. No nystagmus. V: Facial sensation intact from V1-3. VII. No clear facial asymmetry. VIII: Hearing intact to finger rub bilaterally. IX, X: Symmetric palate elevation. XI: Shoulder shrug intact. XII: Tongue midline without fasciculation or atrophy. MOTOR: Normal bulk/tone. No pronator drift or tremor. Strength is 5/5 throughout all 4 extremities. SENSORY: Intact to light touch in all 4 extremities. REFLEXES: 2+ throughout. Toes are downgoing. COORDINATION: Finger to nose intact. No dysmetria. GAIT: deferred DIAGNOSTIC TESTING: LABORATORY: WBC 9.3 Hgb 12.8 Platelet 276 Na 137 K 4.9 Cl 108 CO2 18 BUN 23 Cr 1.28 glucose 108 AST 22 ALT 10 AlkPhos 94 urinalysis negative Keppra level 59.4 IMAGING: MRI of brain without contrast on 03/08/2019: White matter demyelination may appear more conspicuous due to differences in technique. No acute stroke. MRI of brain without contrast on 04/01/2018: nonspecific white matter demyelination may be indicative of underlying vasculit is, small vessel ischemia, hypertension, migraine headaches. Multiple sclerosis felt to be less likely. MRA of the head: atheromatous changes within the internal carotid arteries at the level of the siphon. No stenosis. CTA of the neck 04/10/2018: moderate to severe diffuse atherosclerotic changes throughout common carotid arteries bilaterally including carotid bulbs without hemodynamically significant focal stenosis in common or internal carotid arteries ASSESSMENT: 58 year-old woman with PMhx of COPD, seizures, hypothyroidism, and hypotension, presenting to [facility] for dizziness, consulting Neurology for seizure episode. Patient was breaking one of her Keppra pills into half, and Keppra pills should not be cut or chewed. RECOMMENDATIONS: 1. c/w Keppra 1500mg BID (please give 750mg pills and have patient take 2 pills in the morning and 2 pills at night) 2. No record of any EEG obtained at this hospital. Will obtain one today 3. Patient states she has an appointment with a neurologist 4. Patient was informed of [place] state law of no driving unless seizure free for 6 months, operating dangerous machinery, climbing ladders or unsupervised swimming 5. Patient was counseled about tobacco cessation. 6. After EEG, pt is stable for discharge home from neurological perspective. Past Medical History Past Medical History: Asthma, Coronary Artery Disease (CAD), Chest Pain / Angina, COPD, Seizure Disorder, Thyroid Disorder Additional Past Medical History / Comment(s): SLIGHT COPD. NEUROPATHY TO BILAT HANDS AND LEGS AND RT FOOT, History of Any Multi-Drug Resistant Organisms: None Reported Past Surgical History: Heart Catheterization With Stent, Hysterectomy, Orthopedic Surgery Additional Past Surgical History / Comment(s): RT ROTATOR CUFF REPAIR. CYSTS REMOVED FROM UNDER ARMS AND HANDS. 4 stents. 07/18 lt subclavian stent Past Anesthesia/Blood Transfusion Reactions: No Reported Reaction Date of Last Stent Placement:: nov 2017 Past Psychological History: Depression Smoking Status: Current every day smoker Past Alcohol Use History: None Reported Additional Past Alcohol Use History / Comment(s): SMOKES 1/2@ PPD SINCE AGE 11 Past Drug Use History: None Reported - Past Family History Mother Family Medical History: Cancer Sister(s) Family Medical History: Cancer Medications and Allergies Home Medications Medication Instructions Recorded Confirmed Type Escitalopram [Lexapro] 40 mg PO DAILY 11/28/17 04/24/19 History Gabapentin [Neurontin] 800 mg PO TID 11/29/17 04/24/19 History Atorvastatin [Lipitor] 80 mg PO HS #30 tab 11/30/17 04/24/19 Rx Albuterol Inhaler [Ventolin Hfa 2 puff INHALATION RT-Q6H PRN 05/08/18 04/24/19 History Inhaler] levETIRAcetam [Keppra] 1,500 mg PO Q12HR 07/18/18 04/24/19 History Buprenorphine HCl/Naloxone HCl 1 film SL DAILY 02/27/19 04/24/19 History [Bupreno-Nalox 2-0.5 mg Sl Film] Doxepin [SINEquan] 10 mg PO HS 02/27/19 04/24/19 History Ticagrelor [Brilinta] 60 mg PO BID 02/27/19 04/24/19 History Levothyroxine Sodium [Synthroid] 175 mcg PO DAILY 03/06/19 04/24/19 History Budesonide-Formot 160-4.5 Mcg 2 puff INHALATION RT-BID 04/24/19 04/24/19 History [Symbicort 160-4.5 Mcg Inhaler] Buprenorphine HCl/Naloxone HCl SUBLINGUAL HS 04/24/19 History [Suboxone 8 mg-2 mg Sl Film] Allergies Allergy/AdvReac Type Severity Reaction Status Date / Time ibuprofen [From Motrin] Allergy Abdominal Verified 04/24/19 18:00 Pain Physical Examination - Vital Signs Vital Signs: Vital Signs Temp Pulse Pulse Resp BP BP Pulse Ox 04/25/19 09:06 77 18 04/25/19 08:25 97 F L 77 18 87/57 87 L 04/25/19 05:48 98.8 F 70 18 110/66 95 04/24/19 22:51 113/52 04/24/19 20:36 98.4 F 78 18 97/63 94 L 04/24/19 17:29 98.2 F 04/24/19 17:00 62 18 90/44 94 L 04/24/19 16:00 64 13 81/51 95 04/24/19 15:30 67 15 104/40 93 L 04/24/19 15:00 66 14 93/40 94 L 04/24/19 14:30 64 13 83/38 94 L 04/24/19 14:00 63 11 L 92/53 93 L 04/24/19 13:30 64 16 84/50 93 L 04/24/19 13:25 66 18 84/50 91 L 04/24/19 13:15 66 13 94/40 94 L 04/24/19 12:46 98.0 F 66 20 73/45 95 Intake and Output 04/24/19 04/25/19 04/25/19 22:59 06:59 14:59 Intake Total 375 Balance 375 Intake: Intake, IV Titration 375 Amount Sodium Chloride 0.9% 1, 375 000 ml @ 125 mls/hr IV . Q8H STA Rx#:[id number] Other: Voiding Method Toilet Toilet # Voids 2 Weight 78.018 kg Results - Laboratory Findings CBC and BMP: 04/24/19 13:01 04/24/19 13:01 Abnormal Lab Findings: Abnormal Labs 04/24/19 04/24/19 13:01 13:01 MCV 101.2 H Chloride 108 H Carbon Dioxide 18 L BUN 23 H Creatinine 1.28 H Glucose 108 H
--- NOTE | 2019-04-25 18:38 | P.DS ---
Providers Date of admission: 04/24/19 16:30 Attending physician: Jose F Mcwilliams Consults: 04/24/19 16:33 Consult Physician Urgent Consulting Provider: Maria Luz Leung Consult Reason/Comments: seizure Do you want consulting provider notified?: Yes Primary care physician: Jose F Mcwilliams Hospital Course: This is discharge summary on a 58-year-old white female who had recurrent seizure/epilepsy. Appropriate medication changes have been noted and appreciate neurology input. The patient is now seemingly stable and not acting postictal at all. The patient is tolerating diet and once cleared by neurology will be di scharged. Plan - Discharge Summary Discharge Rx Participant: No New Discharge Prescriptions: Continue RX: Escitalopram [Lexapro] 40 mg PO DAILY RX: Gabapentin [Neurontin] 800 mg PO TID RX: Atorvastatin [Lipitor] 80 mg PO HS #30 tab RX: Albuterol Inhaler [Ventolin Hfa Inhaler] 2 puff INHALATION RT-Q6H PRN PRN Reason: Dyspnea RX: levETIRAcetam [Keppra] 1,500 mg PO Q12HR RX: Ticagrelor [Brilinta] 60 mg PO BID RX: Buprenorphine HCl/Naloxone HCl [Bupreno-Nalox 2-0.5 mg Sl Film] 1 film SL DAILY RX: Doxepin [SINEquan] 10 mg PO HS RX: Levothyroxine Sodium [Synthroid] 175 mcg PO DAILY RX: Budesonide-Formot 160-4.5 Mcg [Symbicort 160-4.5 Mcg Inhaler] 2 puff INHALATION RT-BID RX: Buprenorphine HCl/Naloxone HCl [Suboxone 8 mg-2 mg Sl Film] SUBLINGUAL HS Discharge Medication List RX: Escitalopram [Lexapro] 40 mg PO DAILY 11/28/17 [History] RX: Gabapentin [Neurontin] 800 mg PO TID 11/29/17 [History] RX: Atorvastatin [Lipitor] 80 mg PO HS #30 tab 11/30/17 [Rx] RX: Albuterol Inhaler [Ventolin Hfa Inhaler] 2 puff INHALATION RT-Q6H PRN 05/08/18 [History] RX: levETIRAcetam [Keppra] 1,500 mg PO Q12HR 07/18/18 [History] RX: Buprenorphine HCl/Naloxone HCl [Bupreno-Nalox 2-0.5 mg Sl Film] 1 film SL DAILY 02/27/19 [History] RX: Doxepin [SINEquan] 10 mg PO HS 02/27/19 [History] RX: Ticagrelor [Brilinta] 60 mg PO BID 02/27/19 [History] RX: Levothyroxine Sodium [Synthroid] 175 mcg PO DAILY 03/06/19 [History] RX: Budesonide-Formot 160-4.5 Mcg [Symbicort 160-4.5 Mcg Inhaler] 2 puff INHALATION RT-BID 04/24/19 [History] RX: Buprenorphine HCl/Naloxone HCl [Suboxone 8 mg-2 mg Sl Film] SUBLINGUAL HS 04/24/19 [History] Follow up Appointment(s)/Referral(s): Jose F Mcwilliams MD [Primary Care Provider] - 1 Week (call to make appt. office closed at time of discharge) Patient Instructions/Handouts: COPD (Chronic Obstructive Pulmonary Disease) (DC), Recurrent Seizures in Adults (DC) Discharge Disposition: HOME SELF-CARE
--- NOTE | 2019-04-25 22:14 | EEG ---
ELECTROENCEPHALOGRAM REPORT DATE OF PROCEDURE: 04/25/2019 ELECTROENCEPHALOGRAM (EEG) REPORT: TECHNIQUE: A routine 18-channel EEG was performed with video using the 10/20 international electrode placement system. HISTORY: Patient presents with seizure activity. CURRENT MEDICATIONS: Sinequan, Ativan, Lipitor, Lexapro, Neurontin, Keppra. STUDY DURATION: 22 minutes. FINDINGS: BACKGROUND: The background activity consists of 7-8 Hz rhythmic waveforms symmetrically distributed over both posterior quadrants. ACTIVATION: Hyperventilation: Not performed. Photic stimulation: No driving seen. Sleep: Drowsy. ABNORMALITIES: Diffuse 5-7 Hz theta range slowing was seen. IMPRESSION: Abnormal EEG. The diffuse theta range slowing mentioned above is not epileptiform in nature. In combination with the slow background, these findings indicate mild diffuse cerebral dysfunction which may in part be due to medication effect. No seizures were recorded. No epileptiform activity was present. MMODL / IJN: [id number] / MTDD
== END 2019-04-25 18:07 | disposition home or self-care (01) ==
LOC: EC 12:43 → OBSVTOIN 16:30 → INTOOBSV 16:30 → 6NMEDSUR 16:30 → 5NMEDONC 17:29 → UNDODISIN 04-25 18:07
PROVIDERS: ADMIT Family Medicine; ATTEND Family Medicine
DX: G40.909 Epilepsy, unspecified, not intractable, without status epilepticus (principal); R40.0 Somnolence; J44.9 Chronic obstructive pulmonary disease, unspecified; F17.210 Nicotine dependence, cigarettes, uncomplicated; I95.9 Hypotension, unspecified; E03.9 Hypothyroidism, unspecified; G62.9 Polyneuropathy, unspecified; F32.9 Major depressive disorder, single episode, unspecified; I25.10 Atherosclerotic heart disease of native coronary artery without angina pectoris; Z95.5 Presence of coronary angioplasty implant and graft; Z95.820 Peripheral vascular angioplasty status with implants and grafts; Z90.710 Acquired absence of both cervix and uterus; Z98.890 Other specified postprocedural states; Z80.9 Family history of malignant neoplasm, unspecified; Z88.6 Allergy status to analgesic agent; Z79.02 Long term (current) use of antithrombotics/antiplatelets; Z79.890 Hormone replacement therapy; Z79.51 Long term (current) use of inhaled steroids; Z79.52 Long term (current) use of systemic steroids; Z79.899 Other long term (current) drug therapy
CPT/HCPCS: 96361 ×4; 96360; 99285; 36415; 95816; 93005; 80053; 80177; 85025; 81003; G0378 ×3

== ENCOUNTER 2019-09-12 11:50 | Day surgery (SDC) | payer MEDICARE ==
[2019-09-11 09:23] VITALS: BMI 29.5
[2019-09-12 09:28] LABS: Basophils # (A) 0.1 k/uL (0-0.2); Basophils % (A) 1 %; Eosinophils # (A) 0.4 k/uL (0-0.7); Eosinophils % (A) 5 %; HCT 40.9 % (34.0-46.0); Hypochromasia Slight; Lymphocytes # (A) 2.7 k/uL (1.0-4.8); Lymphocytes % (A) 34 %; MCH 31.4 pg (25.0-35.0); MCHC 31.7 g/dL (31.0-37.0); Macrocytosis Slight; Mean Platelet Volume 6.8; Monocytes # (A) 0.5 k/uL (0-1.0); Monocytes % (A) 7 %; Neutrophils # (A) 3.9 k/uL (1.3-7.7); Neutrophils % (A) 50 %; Platelet Count 270 k/uL (150-450); RBC 4.13 m/uL (3.80-5.40); RDW 14.8 % (11.5-15.5); WBC 7.8 k/uL (3.8-10.6)
[2019-09-12 09:39] LABS: Calcium 7.9 mg/dL (8.4-10.2); Potassium 4.4 mmol/L (3.5-5.1)
[~2019-09-12 11:50] MED LIST changes: +ASPIRIN 325 MG TAB PO ONE; -ASPIRIN 325 MG TAB PO STA; -ATORVASTATIN 80 MG TAB PO STA; +CLOPIDOGREL 75 MG TAB PO ONE; +IOPAMIDOL-300 100ML BTL INJ ONE; +LIDOCAINE 1% INJ 10MG/ML (20 ML MDV) SQ ONE; -SODIUM CHLORIDE 0.9% 1,000 ML IV ONE; +SODIUM CHLORIDE 0.9% 1,000 ML IV SCH; +SODIUM CHLORIDE 0.9% 250 ML IV SCH
[2019-09-12 13:36] VITALS: TEMP 98.7
--- NOTE | 2019-09-12 14:51 | IR ---
EXAMINATION TYPE: IR angio aortic arch DATE OF EXAM: 09/12/2019 COMPARISON: NONE HISTORY: Fluoroscopy time. Fluoroscopy was provided to the referring clinician.
[2019-09-12 18:18] VITALS: BP 110/54; PULSE 72; RESP 16
--- NOTE | 2019-09-13 01:23 | AN ---
ANGIOGRAPHY REPORT DATE OF SERVICE: September 12, 2019 PERFORMING PHYSICIAN: Karthik Vale MD. PROCEDURE PERFORMED: 1. Aortic arch angiogram. 2. Non-selective innominate angiogram, left carotid angiogram, and left subclavian angiogram. 3. Selective right common femoral artery angiogram. INDICATION: This is a 59-year-old female patient with coronary artery disease and prior revascularization, diabetes, hypertension, dyslipidemia, and known peripheral arterial disease where she underwent in the past left subclavian stenting was experiencing symptoms of dizziness and lightheadedness. She underwent a CTA of the carotid and that showed critical disease involving the left internal carotid artery. Because of that, she was brought today to undergo stenting of the left carotid. APPROACH: Right common femoral artery. COMPLICATION: None. LEVEL OF SEDATION: The patient was not given any sedation, but the procedure length was 20 minutes. PROCEDURE DESCRIPTION: After obtaining an informed consent, the patient was brought to the cardiac laborer ammunition assembly. The right common femoral artery was cannulated using micropuncture technique, the micropuncture wire passed easily then I placed a 6-Zimbabwean sheath at the right common femoral artery. After that I did an aortic arch angiogram using 5-Zimbabwean pigtail catheter with EMIRATI projection and using a power injection. The procedure was completed without any complication. AORTIC ARCH ANGIOGRAM: The aortic arch is extremely calcified. The calcifications are involving the takeoff of the innominate, the left carotid, and left subclavian as well. ANGIOGRAM OF THE INNOMINATE, LEFT CAROTID AND LEFT SUBCLAVIAN: The angiogram was performed in the EMIRATI projection and using a power injection through the arch. The takeoff of the innominate appeared to be extremely calcified with disease appeared to be in the range of 50%. The ostial of the left carotid appeared to be also extremely calcified where the lesion seems to be in the range of 50% as well. Then the left internal carotid artery appeared to have a very tight lesion in the range of 99.9%. The left external appeared to be angiographically normal. The left subclavian appeared to be also calcified with a lesion appeared to be in the range of 50%. Then the stent in the left subclavian appeared to be patent. Proximal to the stent, there was a lesion appeared to be in the range of 50% as well. CONCLUSION: 1. Type 1 aortic arch. 2. Extremely calcified arch with calcifications involving the ostial of the innominate, left carotid, and left subclavian. 3. Critical disease involving the left internal carotid artery. POSTPROCEDURE MANAGEMENT: Giving the extremely calcified takeoff date of the left subclavian as well as the critical disease involving the left internal carotid artery, I am going to abort the carotid stenting at this point. I am going to send the patient to see a vascular surgeon for the evaluation of endarterectomy of the left carotid artery. MMODL / IJN: [id number] /
== END 2019-09-12 19:03 | disposition home or self-care (01) ==
LOC: OR 11:50 → 2ORMAIN 12:17 → 1SOBS 12:17 → OR 19:03 → UNDODISIN 19:03
PROVIDERS: ATTEND Internal Medicine Interventional Cardiology
DX: I65.22 Occlusion and stenosis of left carotid artery (principal); I70.0 Atherosclerosis of aorta; I10 Essential (primary) hypertension; F17.210 Nicotine dependence, cigarettes, uncomplicated; E78.5 Hyperlipidemia, unspecified; E11.9 Type 2 diabetes mellitus without complications; I95.9 Hypotension, unspecified; Z92.82 Status post administration of tPA (rtPA) in a different facility within the last 24 hours prior to admission to current facility; Z86.73 Personal history of transient ischemic attack (TIA), and cerebral infarction without residual deficits; Z82.49 Family history of ischemic heart disease and other diseases of the circulatory system; Z79.02 Long term (current) use of antithrombotics/antiplatelets; Z79.82 Long term (current) use of aspirin; Z79.890 Hormone replacement therapy; Z79.899 Other long term (current) drug therapy
CPT/HCPCS: 36221; 80048; 85025; C1894; C1769 ×4; J2001; Q9967

== ENCOUNTER → 2019-09-24 | Outpatient (CLI) | payer MEDICARE | END | disposition home or self-care (01) | LOC: LABPAT 10:48 | PROVIDERS: ATTEND Surgery | DX: Z01.818 Encounter for other preprocedural examination (principal); U07.1 COVID-19 ==

== ENCOUNTER 2019-09-25 07:03 | Inpatient (IN) | payer MEDICARE ==
[2019-09-24 10:13] VITALS: BMI 30.5
[~2019-09-25 07:03] MED LIST changes: -ALPRAZolam 0.25 MG TAB PO PRN; -ALPRAZolam 0.5 MG TAB PO PRN; -ASPIRIN 325 MG TAB PO ONE; -CLOPIDOGREL 75 MG TAB PO ONE; +DEXAMETHASONE SOD PHOSPHATE 10 MG/ML 1 ML VIAL IV ONE; +HYDROmorphone 0.5 MG/0.5 ML SYRINGE IVP PRN; -IOPAMIDOL-300 100ML BTL INJ ONE; +LIDOCAINE 1% (10MG/ML) FOR IV START INTRADERMA PRN; -LIDOCAINE 1% INJ 10MG/ML (20 ML MDV) SQ ONE; +MIDAZOLAM 2 MG/2 ML VIAL IV PRN; -NITROGLYCERIN SL TABS 0.4 MG TAB SUBLINGUAL PRN; +ONDANSETRON 4 MG/2 ML VIAL IVP ONE; -SODIUM CHLORIDE 0.9% 1,000 ML IV SCH; -SODIUM CHLORIDE 0.9% 1,000 ML in EMPTY BAG 1 BAG IV ONE; -SODIUM CHLORIDE 0.9% 250 ML IV SCH; +fentaNYL (PF) 50 MCG/ML 2 ML AMP IV PRN
[2019-09-25] MEDS: LACTATED RINGERS 1,000 ML IV SCH (07:49)
[2019-09-25] MEDS ORDERED: ONDANSETRON 4 MG/2 ML VIAL ONE (07:54)
[2019-09-25] MEDS ORDERED: NITROGLYCERIN-D5W PMX 50 MG in DEXTROSE/WATER 1 250ML.BAG IV SCH (09:45)
[2019-09-25] MEDS ORDERED: ceFAZolin 2,000 MG in SODIUM CHLORIDE 0.9% 500 ML IRRIGATION ONE (10:44)
[2019-09-25] MEDS ORDERED: HEPARIN SODIUM (1,000 UNIT/ML) 2,000 UNIT in SODIUM CHLORIDE 0.9% 1,000 ML IRRIGATION ONE (10:44)
[2019-09-25] MEDS ORDERED: LIDOCAINE 1% INJ 10MG/ML (20 ML MDV) SQ ONE ×2 (10:53)
[2019-09-25] MEDS: PHENYLEPHRINE 40 MG in SODIUM CHLORIDE 0.9% 250 ML IV SCH (11:30)
[2019-09-25] MEDS ORDERED: LACTATED RINGERS 1,000 ML IV ONE (12:00)
[2019-09-25] MEDS ORDERED: GELATIN SPONGE,ABSORB (LARGE) 1 EACH SPONGE TOPICAL ONE (12:11)
[2019-09-25] MEDS ORDERED: THROMBIN (BOVINE) 5,000 UNIT VIAL TOPICAL ONE (12:11)
[2019-09-25] MEDS ORDERED: TRIMETHOBENZAMIDE 100 MG/ML 2 ML VIAL IM PRN (12:41)
[2019-09-25] MEDS ORDERED: MAG HYDROX/AL HYDROX/SIMETH 30 ML CUP PO PRN (12:41)
[2019-09-25] MEDS ORDERED: BENZOCAINE/MENTHOL LOZENG 1 EACH LOZENGE MUCOUS MEM PRN (12:41)
[2019-09-25] MEDS ORDERED: ALBUTEROL NEBULIZED 2.5 MG/3 ML INHALATION PRN (12:44)
--- NOTE | 2019-09-25 12:53 | P.OP ---
Description of Procedure: Date of Procedure: 09/25/2019 Preoperative Diagnosis: Left Internal carotid artery stenosis Postoperative Diagnosis: Same Procedure(s) Performed: Left carotid endarterectomy with patch angioplasty Anesthesia: MADHU Surgeon: Gaudencio Bello Estimated Blood Loss (ml): 100 IV Fluids/Urine Output: See anesthesia record Pathology: Carotid plaque Condition: stable Disposition: PACU Indications for Procedure: 59-year-old female with history of carotid stenosis originally presented to Dr. Vale's office for carotid stenosis which she was fo und to have a 99% stenosis in her left internal carotid artery. She was scheduled for carotid angiogram and stenting which he was unable to perform due to the severity of the calcification at the takeoff of the carotid and therefore she was sent to our office for workup for open carotid endarterectomy. Patient denied any lateralizing symptoms such as weakness, vision changes or speech issues. Description of Procedure: After written informed consent was obtained the patient all risks benefits and competitions were described the patient is brought to the operative suite and laid in a supine position. The area of the neck was prepped and draped in usual sterile fashion after appropriate anesthetic was performed per the anesthesiologist. A timeout was performed in normal fashion antibiotics were administered prior to incision. An oblique incision was then created just anterior to the sternocleidomastoid musculature with a 10 blade scalpel and dissection was carried down to the gonzalez tid sheath. The carotid sheath was then entered after facial vein was located and suture ligated in normal fashion. The common carotid, internal carotid, external carotid and superior thyroid arteries were located and dissected free in a meticulous fashion circumferentially and controlled with vessel loops. Attention was then placed to locating the vagus nerve as well as hypoglossal nerve which were both spared. Once controlled patient was administered heparin and followed with ACTs for appropriate heparinization. Once ACT was above 200 the proximal and distal aspects of the dissection were then controlled with vascular clamps. Arteriotomy was then created with 11 blade scalpel and extended with Abdi Box scissors. Utilizing pressure tubing stump pressures were obtained and were 35. Sundt shunt was placed in normal fashion and endarterectomy was then performed with a Parrish and elevator. The plaque was then feathered at the distal aspect and the internal carotid artery and removed. The area was copiously irrigated with heparinized saline and all free debris was removed. A 7-0 Prolene suture was then placed to tack the distal aspect of the dissection at the internal carotid artery. A 0.8 x 8 cm bovine pericardial patch was then chosen and patch angioplasty was performed with 6-0 Prolene suture in a running fashion. Prior to last sutures being placed the inflow was released flushing any free debris out of the patch. This was reclamped and the internal carotid artery was released revealing good brisk flow and was once again reclamped. The external carotid and superior thyroid artery were then released followed by the common carotid artery to allow any free debris to be flushed into the external system. Final sutures were placed and secured. Internal carotid artery control was then released. Good pulsatile flow was noted through the patch and a Doppler was utilized demonstrating good brisk flow into the internal, external carotid arteries without any signs of obstruction. Hemostasis was then assured with Gelfoam and thrombin. A 10-Ind[place]ian ENRIQUETA drain was then placed in normal fashion and secured with 3-0 nylon suture. The incision was then closed in a multilayer fashion after hemostasis was assured. The skin was then cleansed and dressings were placed. Patient tolerated the procedure well and was following commands and moving all extremities. Patient was then sent to PACU for recovery.
[2019-09-25 14:05] LABS: Glucose,Whole Blood 140 mg/dL (75-99)
[2019-09-25] MEDS: SODIUM CHLORIDE 0.9% 1,000 ML IV SCH (14:08)
[2019-09-25] MEDS ORDERED: SODIUM CHLORIDE 0.9% 500 ML 500 ML IV ONE (14:52)
[2019-09-25 15:42] LABS: Basophils # (A) 0.1 k/uL (0-0.2); Basophils % (A) 1 %; Eosinophils % (A) 0 %; HCT 37.9 % (34.0-46.0); HGB 11.7 gm/dL (11.4-16.0); Hypochromasia Slight; Lymphocytes # (A) 0.8 k/uL (1.0-4.8); Lymphocytes % (A) 11 %; MCH 30.6 pg (25.0-35.0); Monocytes # (A) 0.2 k/uL (0-1.0); Monocytes % (A) 2 %; Neutrophils # (A) 6.2 k/uL (1.3-7.7); Neutrophils % (A) 85 %; Platelet Count 234 k/uL (150-450); RBC 3.83 m/uL (3.80-5.40); RDW 14.6 % (11.5-15.5); WBC 7.3 k/uL (3.8-10.6)
[2019-09-25 16:01] LABS: Calcium 8.1 mg/dL (8.4-10.2); Potassium 4.5 mmol/L (3.5-5.1)
[2019-09-25] MEDS: ACETAMINOPHEN TAB 325 MG TAB PO PRN (17:23)
[2019-09-25] MEDS: GABAPENTIN 400 MG CAP PO SCH ×2 (17:23→21:26)
[2019-09-25] MEDS: SYMBICORT 160-4.5 MCG INHALER INHALATION SCH (21:00)
[2019-09-25] MEDS: DOXEPIN 10 MG CAP PO SCH (21:26)
[2019-09-25] MEDS: ATORVASTATIN 80 MG TAB PO SCH (21:26)
[2019-09-25] MEDS: cloNIDine HCL 0.1 MG TAB PO SCH (21:27)
[2019-09-26] MEDS: HYDROcodone/APAP 5-325MG 1 EACH TAB PO PRN ×3 (04:34→13:03)
[2019-09-26] MEDS: LACTATED RINGERS 1,000 ML IV SCH (04:49)
[2019-09-26] MEDS: SODIUM CHLORIDE 0.9% 1,000 ML IV SCH ×2 (04:49→15:58)
[2019-09-26 05:00] LABS: Basophils % (A) 0 %; Eosinophils % (A) 0 %; HCT 38.7 % (34.0-46.0); HGB 11.9 gm/dL (11.4-16.0); Hypochromasia Slight; Lymphocytes # (A) 1.7 k/uL (1.0-4.8); Lymphocytes % (A) 13 %; MCH 30.5 pg (25.0-35.0); MCHC 30.6 g/dL (31.0-37.0); MCV 99.6 fL (80.0-100.0); Macrocytosis Slight; Mean Platelet Volume 7.5; Monocytes # (A) 0.7 k/uL (0-1.0); Monocytes % (A) 5 %; Neutrophils # (A) 10.7 k/uL (1.3-7.7); Neutrophils % (A) 81 %; Platelet Count 272 k/uL (150-450); RBC 3.89 m/uL (3.80-5.40); RDW 14.6 % (11.5-15.5); WBC 13.3 k/uL (3.8-10.6)
[2019-09-26 05:42] LABS: African American GFR (CKD) >90 (>60 ml/min/1.73 sqM); Anion Gap 5 mmol/L; Blood Urea Nitrogen 13 mg/dL (7-17); Calcium 8.4 mg/dL (8.4-10.2); Carbon Dioxide 23 mmol/L (22-30); Chloride 108 mmol/L (98-107); Glucose 120 mg/dL (74-99); Non-African American GFR(CKD) 78 (>60 ml/min/1.73 sqM); Sodium 136 mmol/L (137-145)
[2019-09-26] MEDS: LEVOTHYROXINE 88 MCG TAB PO SCH (06:25)
[2019-09-26] MEDS: SYMBICORT 160-4.5 MCG INHALER INHALATION SCH ×2 (08:32→20:02)
[2019-09-26] MEDS: cloNIDine HCL 0.1 MG TAB PO SCH ×2 (08:32→23:37)
--- NOTE | 2019-09-26 08:38 | P.CONS ---
History of Present Illness - Reason for Consult Consult date: 09/26/19 - Chief Complaint Status post carotid endarterectomy. - History of Present Illness This is a history of physical 59-year-old white female with known history of CBD who is postop day 1 left carotid endarterectomy. The patient feels pain in the site however, no numbness or tingling no visual problems. She states significant improvement. Consulted for general medical management. We started some [place] when necessary for pain. Otherwise no significant voiding difficulties. No nausea, vomiting or diarrhea is noted. Review of Systems Constitutional: Denies chills, Denies fever Eyes: denies blurred vision, denies pain Ears, nose, mouth and throat: Denies headache, Denies sore throat Cardiovascular: Denies shortness of breath, Denies syncope Respiratory: Denies cough Gastrointestinal: Denies abdominal pain, Denies diarrhea, Denies nausea, Denies vomiting Genitourinary: Denies dysuria, Denies hematuria Past Medical History Past Medical History: Asthma, Coronary Artery Disease (CAD), Chest Pain / Angina, COPD, Seizure Disorder, Thyroid Disorder Additional Past Medical History / Comment(s): SLIGHT COPD. 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 Leftt carotid blockage History of Any Multi-Drug Resistant Organisms: None Reported Past Surgical History: Heart Catheterization, Heart Catheterization With Stent, Hysterectomy, Orthopedic Surgery Additional Past Surgical History / Comment(s): RT ROTATOR CUFF REPAIR, CYSTS REMOVED FROM UNDER ARMS AND HANDS, 4 stents, 07/18/18 left subclavian stent. Past Anesthesia/Blood Transfusion Reactions: No Reported Reaction Date of Last Stent Placement:: Nov 2017 Past Psychological History: Depression Smoking Status: Current every day smoker Past Alcohol Use History: None Reported Additional Past Alcohol Use History / Comment(s): SMOKES 4 cig/day SINCE AGE 11. Past Drug Use History: None Reported - Past Family History Mother Family Medical History: Cancer Sister(s) Family Medical History: Cancer Medications and Allergies Home Medications Medication Instructions Recorded Confirmed Type Escitalopram [Lexapro] 40 mg PO DAILY 11/28/17 09/25/19 History Gabapentin [Neurontin] 800 mg PO TID 11/29/17 09/25/19 History Atorvastatin [Lipitor] 80 mg PO HS #30 tab 11/30/17 09/25/19 Rx Albuterol Inhaler (Mhu) [Ventolin 2 puff INHALATION RT-Q6H PRN 05/08/18 09/25/19 History Hfa Inhaler (Mhu)] levETIRAcetam [Keppra] 1,500 mg PO Q12HR 07/18/18 09/25/19 History Doxepin [SINEquan] 10 mg PO HS 02/27/19 09/25/19 History Levothyroxine Sodium [Synthroid] 175 mcg PO DAILY 03/06/19 09/25/19 History Budesonide-Formot 160-4.5 Mcg 2 puff INHALATION RT-BID 04/24/19 09/25/19 History [Symbicort 160-4.5 Mcg Inhaler] Clopidogrel [Plavix] 75 mg PO DAILY 09/11/19 09/25/19 History cloNIDine HCL [Catapres] 0.1 mg PO BID 09/11/19 09/25/19 History Aspirin [Children's Aspirin] 81 mg PO DAILY MDD 81 09/25/19 09/25/19 History Allergies Allergy/AdvReac Type Severity Reaction Status Date / Time ibuprofen [From Motrin] Allergy Abdominal Verified 09/25/19 07:29 Pain Physical Exam Vitals: Vital Signs Temp Pulse Pulse Resp BP BP BP 09/26/19 08:00 97.8 F 71 24 108/82 09/26/19 07:30 66 20 106/52 09/26/19 07:00 48 L 26 H 94/55 09/26/19 06:30 43 L 12 103/47 09/26/19 06:00 49 L 18 09/26/19 05:30 47 L 18 89/78 09/26/19 05:00 57 L 15 123/63 09/26/19 04:30 51 L 12 120/49 09/26/19 04:00 47 L 11 L 119/47 09/26/19 03:30 44 L 11 L 109/55 09/26/19 03:00 42 L 12 115/46 09/26/19 02:30 45 L 15 110/63 09/26/19 02:00 40 L 11 L 107/49 09/26/19 01:30 46 L 11 L 113/53 09/26/19 01:00 45 L 12 129/54 09/26/19 00:30 46 L 15 127/50 09/26/19 00:19 44 L 14 127/50 09/26/19 00:00 97.8 F 44 L 11 L 132/45 09/25/19 23:30 44 L 14 134/52 09/25/19 23:00 41 L 13 114/88 09/25/19 22:30 40 L 15 91/45 09/25/19 22:00 59 L 9 L 90/53 09/25/19 21:30 49 L 11 L 98/51 09/25/19 21:00 39 L 13 113/46 09/25/19 20:30 40 L 17 116/44 09/25/19 20:00 98.0 F 40 L 18 120/59 09/25/19 19:30 40 L 12 110/47 09/25/19 19:00 39 L 26 H 125/49 09/25/19 18:30 37 L 32 H 96/58 09/25/19 18:00 39 L 13 94/42 09/25/19 17:50 42 L 12 82/43 09/25/19 17:40 46 L 20 102/87 09/25/19 17:30 49 L 106/47 09/25/19 17:20 47 L 14 103/38 09/25/19 17:10 46 L 25 H 77/53 09/25/19 17:00 38 L 20 114/46 09/25/19 16:50 37 L 16 119/36 09/25/19 16:40 97.7 F 37 L 20 90/51 09/25/19 16:30 36 L 105/39 09/25/19 16:20 37 L 16 108/41 09/25/19 16:10 37 L 15 106/35 09/25/19 16:00 38 L 16 92/43 09/25/19 15:50 35 L 17 104/42 09/25/19 15:40 42 L 17 09/25/19 15:30 40 L 16 100/39 09/25/19 15:20 40 L 14 93/44 09/25/19 15:10 40 L 16 87/40 09/25/19 15:00 43 L 10 L 89/42 09/25/19 14:50 41 L 21 92/33 09/25/19 14:41 97.9 F 16 111/36 09/25/19 14:40 40 L 13 96/38 09/25/19 14:30 39 L 13 88/42 09/25/19 14:20 49 L 15 82/41 09/25/19 14:10 97.9 F 47 L 13 88/42 09/25/19 14:02 19 09/25/19 13:46 51 L 18 89/47 103/46 09/25/19 13:30 50 L 18 99/50 102/41 09/25/19 13:15 55 L 18 96/51 106/53 09/25/19 12:56 96.9 F L 60 18 96/42 Pulse Ox 09/26/19 08:00 92 L 09/26/19 07:30 86 L 09/26/19 07:00 92 L 09/26/19 06:30 09/26/19 06:00 91 L 09/26/19 05:30 92 L 09/26/19 05:00 93 L 09/26/19 04:30 92 L 09/26/19 04:00 91 L 09/26/19 03:30 94 L 09/26/19 03:00 94 L 09/26/19 02:30 93 L 09/26/19 02:00 93 L 09/26/19 01:30 92 L 09/26/19 01:00 92 L 09/26/19 00:30 09/26/19 00:19 94 L 09/26/19 00:00 95 09/25/19 23:30 95 09/25/19 23:00 95 09/25/19 22:30 94 L 09/25/19 22:00 90 L 09/25/19 21:30 90 L 09/25/19 21:00 93 L 09/25/19 20:30 94 L 09/25/19 20:00 95 09/25/19 19:30 09/25/19 19:00 09/25/19 18:30 09/25/19 18:00 99 09/25/19 17:50 09/25/19 17:40 09/25/19 17:30 09/25/19 17:20 09/25/19 17:10 09/25/19 17:00 95 09/25/19 16:50 96 09/25/19 16:40 96 09/25/19 16:30 97 09/25/19 16:20 96 09/25/19 16:10 96 09/25/19 16:00 96 09/25/19 15:50 95 09/25/19 15:40 94 L 09/25/19 15:30 95 09/25/19 15:20 95 09/25/19 15:10 95 09/25/19 15:00 94 L 09/25/19 14:50 94 L 09/25/19 14:41 96 09/25/19 14:40 93 L 09/25/19 14:30 88 L 09/25/19 14:20 86 L 09/25/19 14:10 96 09/25/19 14:02 09/25/19 13:46 96 09/25/19 13:30 96 09/25/19 13:15 98 09/25/19 12:56 95 Intake and Output 09/25/19 09/26/19 09/26/19 22:59 06:59 14:59 Intake Total 1103.564 660.856 172.072 Output Total 365 550 0 Balance 738.564 110.856 172.072 Intake: IV 1060 640 160 Sodium Chloride 0.9% 1, 560 640 160 000 ml @ 80 mls/hr IV . [id number] [facility] Rx#:[id number] Sodium Chloride 0.9% 500 500 ml 500 ml @ 999 mls/hr IV .Q31M ONE Rx#:[id number] Intake, IV Titration 43.564 20.856 12.072 Amount Phenylephrine 40 mg In 43.564 20.856 12.072 Sodium Chloride 0.9% 250 ml @ 0.5 MCG/KG/MIN 15. 411 mls/hr IV .[id number] [facility] Rx#:[id number] Output: Drainage 50 Left 50 Urine 365 500 0 Other: Voiding Method Indwelling Catheter Indwelling Catheter # Voids 0 Weight 88.4 kg ABP, PAP, CO, CI - Last 8 Hours Arterial Blood Pressure 113/47 Arterial Blood Pressure 106/43 Arterial Blood Pressure 101/50 Arterial Blood Pressure 133/55 Arterial Blood Pressure 129/48 Arterial Blood Pressure 128/49 Arterial Blood Pressure 130/49 Arterial Blood Pressure 135/51 Arterial Blood Pressure 122/46 Arterial Blood Pressure 122/49 Arterial Blood Pressure 119/49 - Constitutional General appearance: no acute distress - EENT Eyes: EOMI - Neck Neck: no lymphadenopathy - Respiratory Respiratory: bilateral: CTA - Cardiovascular Rhythm: regular Heart sounds: normal: S1, S2 Abnormal Heart Sounds: no S3 Gallop - Gastrointestinal General gastrointestinal: soft, no tenderness - Psychiatric Psychiatric: A&O x's 3, appropriate affect Results CBC & Chem 7: 09/26/19 04:40 09/26/19 04:40 Labs: Abnormal Lab Results - Last 24 Hours (Table) 09/25/19 09/25/19 09/25/19 Range/Units 14:03 15:00 15:00 WBC (3.8-10.6) k/uL MCHC (31.0-37.0) g/dL Neutrophils # (1.3-7.7) k/uL Lymphocytes # 0.8 L (1.0-4.8) k/uL Sodium (137-145) mmol/L Chloride 108 H (98-107) mmol/L Glucose 126 H (74-99) mg/dL POC Glucose (mg/dL) 140 H (75-99) mg/dL Calcium 8.1 L (8.4-10.2) mg/dL 09/26/19 09/26/19 Range/Units 04:40 04:40 WBC 13.3 H (3.8-10.6) k/uL MCHC 30.6 L (31.0-37.0) g/dL Neutrophils # 10.7 H (1.3-7.7) k/uL Lymphocytes # (1.0-4.8) k/uL Sodium 136 L (137-145) mmol/L Chloride 108 H (98-107) mmol/L Glucose 120 H (74-99) mg/dL POC Glucose (mg/dL) (75-99) mg/dL Calcium (8.4-10.2) mg/dL Assessment and Plan (1) Carotid stenosis Current Visit: Yes Status: Acute Code(s): I65.29 - OCCLUSION AND STENOSIS OF UNSPECIFIED CAROTID ARTERY SNOMED Code(s): 22444479 (2) History of carotid endarterectomy Current Visit: Yes Status: Acute Code(s): Z98.890 - OTHER SPECIFIED POSTPROCEDURAL STATES SNOMED Code(s): 326965560 (3) CAD (coronary artery disease) Current Visit: No Status: Acute Code(s): I25.10 - ATHSCL HEART DISEASE OF [place] CORONARY ARTERY W/O ANG PCTRS SNOMED Code(s): 60082355 (4) Tobacco abuse Current Visit: No Status: Acute Code(s): Z72.0 - TOBACCO USE SNOMED Code(s): 640319161 Plan: Reconcile medications as necessary. Pain control. Follow neurologically and cardiovascularly. Pulmonary toilet as necessary. We'll continue follow from a medical perspective. See orders otherwise. Time with Patient: Greater than 30
[2019-09-26] MEDS: ENOXAPARIN 40 MG/0.4 ML SYRINGE SQ SCH (08:45)
[2019-09-26] MEDS: GABAPENTIN 400 MG CAP PO SCH ×3 (08:45→23:37)
[2019-09-26] MEDS: ASPIRIN 81 MG PO SCH (08:45)
[2019-09-26] MEDS: CLOPIDOGREL 75 MG TAB PO SCH (08:45)
[2019-09-26] MEDS: ESCITALOPRAM 20 MG TAB PO SCH (08:48)
--- NOTE | 2019-09-26 12:57 | P.DS ---
Providers Date of admission: 09/25/19 07:03 Attending physician: Gaudencio Bello DO Consults: 09/25/19 12:41 Consult Physician Routine Consulting Provider: Jose F Mcwilliams Consult Reason/Comments: medical management Do you want consulting provider notified?: Yes 09/25/19 17:09 Consult Physician Routine Consulting Provider: Karthik Vale Consult Reason/Comments: Bradycardia Do you want consulting provider notified?: Already Contacted Primary care physician: Jose F Mcwilliams [facility] Course: This is 59-year-old female with a history of carotid stenosis who originally presented with Dr. Vale office for carotid stenosis when she was found to have a 99% stenosis in her left internal carotid artery. She was scheduled as an outpatient for a left carotid endarterectomy with patch angioplasty with Dr. Bello. The patient is status postop day 1. She was seen and examined at the bedside in the ICU. She was hypotensive through the night requiring some pressors. Her clonidine was held. The patient wears oxygen at home and was requiring 2-4 L through the night per nasal cannula. She states she does have some pain and discomfort at the incision site, did require pain medication through the night. She denies any focal deficits. Casillas catheter was discontinued this morning as well as her A-line. The patient would like to go home today. Discuss with patient will need to continue to follow blood pressure, Dr. Casillas discussed with filter press pumper to continue to monitor blood pressures and adjust medications as needed. Will discharge home once blood pressure stable. Assessment: General appearance: The patient is alert, oriented, in no acute distress. HET: Head is normocephalic and atraumatic. Pupils are equal and reactive. Neck: Supple without lymphadenopathy. Trachea midline. Incision along left side of the neck approximated, no notable drainage. ENRIQUETA drain with 25 mL of serosanguineous drainage, drain removed. Heart: S1 S2. Regular rate and rhythm. Lungs: No crackles or wheezes are heard. Diminished lung sounds. Extremities: Normal skin color and turgor. No cyanosis, rash, ulceration, clubbing, or edema. Radial and pedal pulses are 2/4 bilaterally. Neurological: No focal deficits. Strength and sensation are grossly intact. Speech is fluent, able to follow commands. Tongue protrudes midline. Assessment: 1. Postop day 1 for left carotid endarterectomy with patch angioplasty 2. Left internal carotid artery stenosis 3. Hypotension 4. COPD, oxygen dependent 5. Coronary artery disease 6. Seizure disorder Procedures: Left carotid endarterectomy with patch angioplasty performed on 09/25/[address] Bello Plan - Discharge Summary Discharge Rx Participant: No New Discharge Prescriptions: New HYDROcodone/APAP 5-325MG [[place] 5-325] 1 each PO Q4HR PRN #12 tab PRN Reason: Pain Continue Escitalopram [Lexapro] 40 mg PO DAILY Gabapentin [Neurontin] 800 mg PO TID Atorvastatin [Lipitor] 80 mg PO HS #30 tab Albuterol Inhaler (Mhu) [Ventolin Hfa Inhaler (Mhu)] 2 puff INHALATION RT-Q6H PRN PRN Reason: Dyspnea levETIRAcetam [Keppra] 1,500 mg PO Q12HR Doxepin [SINEquan] 10 mg PO HS Budesonide-Formot 160-4.5 Mcg [Symbicort 160-4.5 Mcg Inhaler] 2 puff INHALATION RT-BID Clopidogrel [Plavix] 75 mg PO DAILY cloNIDine HCL [Catapres] 0.1 mg PO BID Aspirin [Children's Aspirin] 81 mg PO DAILY MDD 81 Discontinued Levothyroxine Sodium [Synthroid] 175 mcg PO DAILY Discharge Medication List Escitalopram [Lexapro] 40 mg PO DAILY 11/28/17 [History] Gabapentin [Neurontin] 800 mg PO TID 11/29/17 [History] Atorvastatin [Lipitor] 80 mg PO HS #30 tab 11/30/17 [Rx] Albuterol Inhaler (Mhu) [Ventolin Hfa Inhaler (Mhu)] 2 puff INHALATION RT-Q6H PRN 05/08/18 [History] levETIRAcetam [Keppra] 1,500 mg PO Q12HR 07/18/18 [History] Doxepin [SINEquan] 10 mg PO HS 02/27/19 [History] Budesonide-Formot 160-4.5 Mcg [Symbicort 160-4.5 Mcg Inhaler] 2 puff INHALATION RT-BID 04/24/19 [History] Clopidogrel [Plavix] 75 mg PO DAILY 09/11/19 [History] cloNIDine HCL [Catapres] 0.1 mg PO BID 06/23/20 [History] Aspirin [Children's Aspirin] 81 mg PO DAILY MDD 81 09/25/19 [History] HYDROcodone/APAP 5-325MG [[place] 5-325] 1 each PO Q4HR PRN #12 tab 09/26/19 [Rx] Follow up App[facility]ment(s[facility] - 1-2 Days Discharge Disposition: HOME SELF-CARE
--- NOTE | 2019-09-26 15:41 | P.CRDCN ---
History of Present Illness Consult date: 09/26/19 History of present illness: This is a 59-year-old female with history of carotid stenosis with 90% stenosis of the left carotid. Attempted stent placement was felt to be risky and subsequently patient was brought in for left carotid endarterectomy. Patient had surgery yesterday. Patient developed a bradycardia with rates as low as 30. Patient was a symptomatically. However her heart rate gradually improved and patient is in 50s and 60s, this morning. Patient was being treated with Catapres for hypertension as an outpatient. Patient also has been hypotensive, which is gradually improving. She is off Catapres now. Patient denies any chest pain or shortness of breath. Patient has mild drooping of the right side of the face which is chronic. No other neurological deficits. At this point we'll hold Catapres and continue rest of the management. Patient could be discharged home. Follow-up with Dr. Evans as an outpatient Review of Systems As per the chart Past Medical History Past Medical History: Asthma, Coronary Artery Disease (CAD), Chest Pain / Angina, COPD, Seizure Disorder, Thyroid Disorder Additional Past Medical History / Comment(s): SLIGHT COPD. 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 Leftt carotid blockage History of Any Multi-Drug Resistant Organisms: None Reported Past Surgical History: Heart Catheterization, Heart Catheterization With Stent, Hysterectomy, Orthopedic Surgery Additional Past Surgical History / Comment(s): RT ROTATOR CUFF REPAIR, CYSTS REMOVED FROM UNDER ARMS AND HANDS, 4 stents, 07/18/18 left subclavian stent. Past Anesthesia/Blood Transfusion Reactions: No Reported Reaction Date of Last Stent Placement:: Nov 2017 Past Psychological History: Depression Smoking Status: Current every day smoker Past Alcohol Use History: None Reported Additional Past Alcohol Use History / Comment(s): SMOKES 4 cig/day SINCE AGE 11. Past Drug Use History: None Reported - Past Family History Mother Family Medical History: Cancer Sister(s) Family Medical History: Cancer Medications and Allergies Home Medications Medication Instructions Recorded Confirmed Type Escitalopram [Lexapro] 40 mg PO DAILY 11/28/17 09/25/19 History Gabapentin [Neurontin] 800 mg PO TID 11/29/17 09/25/19 History Atorvastatin [Lipitor] 80 mg PO HS #30 tab 11/30/17 09/25/19 Rx Albuterol Inhaler (Mhu) [Ventolin 2 puff INHALATION RT-Q6H PRN 05/08/18 09/25/19 History Hfa Inhaler (Mhu)] levETIRAcetam [Keppra] 1,500 mg PO Q12HR 07/18/18 09/25/19 History Doxepin [SINEquan] 10 mg PO HS 02/27/19 09/25/19 History Budesonide-Formot 160-4.5 Mcg 2 puff INHALATION RT-BID 04/24/19 09/25/19 History [Symbicort 160-4.5 Mcg Inhaler] Clopidogrel [Plavix] 75 mg PO DAILY 09/11/19 09/25/19 History cloNIDine HCL [Catapres] 0.1 mg PO BID 09/11/19 09/25/19 History Aspirin [Children's Aspirin] 81 mg PO DAILY MDD 81 09/25/19 09/25/19 History HYDROcodone/APAP 5-325MG [[place] 1 each PO Q4HR PRN #12 tab 09/26/19 Rx 5-325] Allergies Allergy/AdvReac Type Severity Reaction Status Date / Time ibuprofen [From Motrin] Allergy Abdominal Verified 09/25/19 07:29 Pain Physical Exam Vitals: Vital Signs Temp Pulse Resp BP Pulse Ox 09/26/19 15:00 40 L 14 119/42 92 L 09/26/19 14:30 43 L 22 76/53 95 09/26/19 14:00 46 L 17 90/49 93 L 09/26/19 13:30 60 11 L 82/42 90 L 09/26/19 13:00 64 22 111/46 91 L 09/26/19 12:30 71 20 114/46 91 L 09/26/19 12:00 98.6 F 46 L 13 103/38 94 L 09/26/19 11:30 64 18 129/51 96 09/26/19 11:00 46 L 17 128/64 95 09/26/19 10:30 47 L 123/55 94 L 09/26/19 10:00 49 L 12 96/41 94 L 09/26/19 09:30 68 16 105/41 09/26/19 09:00 42 L 13 109/52 94 L 09/26/19 08:30 62 25 H 78/34 93 L 09/26/19 08:00 97.8 F 71 24 108/82 92 L 09/26/19 07:30 66 20 106/52 86 L 09/26/19 07:00 48 L 26 H 94/55 92 L 09/26/19 06:30 43 L 12 103/47 09/26/19 06:00 49 L 18 91 L 09/26/19 05:30 47 L 18 89/78 92 L 09/26/19 05:00 57 L 15 123/63 93 L 09/26/19 04:30 51 L 12 120/49 92 L 09/26/19 04:00 47 L 11 L 119/47 91 L 09/26/19 03:30 44 L 11 L 109/55 94 L 09/26/19 03:00 42 L 12 115/46 94 L 09/26/19 02:30 45 L 15 110/63 93 L 09/26/19 02:00 40 L 11 L 107/49 93 L 09/26/19 01:30 46 L 11 L 113/53 92 L 09/26/19 01:00 45 L 12 129/54 92 L 09/26/19 00:30 46 L 15 127/50 09/26/19 00:19 44 L 14 127/50 94 L 09/26/19 00:00 97.8 F 44 L 11 L 132/45 95 09/25/19 23:30 44 L 14 134/52 95 09/25/19 23:00 41 L 13 114/88 95 09/25/19 22:30 40 L 15 91/45 94 L 09/25/19 22:00 59 L 9 L 90/53 90 L 09/25/19 21:30 49 L 11 L 98/51 90 L 09/25/19 21:00 39 L 13 113/46 93 L 09/25/19 20:30 40 L 17 116/44 94 L 09/25/19 20:00 98.0 F 40 L 18 120/59 95 09/25/19 19:30 40 L 12 110/47 09/25/19 19:00 39 L 26 H 125/49 09/25/19 18:30 37 L 32 H 96/58 09/25/19 18:00 39 L 13 94/42 99 09/25/19 17:50 42 L 12 82/43 07/07/20 17:40 46 L 20 102/87 09/25/19 17:30 49 L 106/47 09/25/19 17:20 47 L 14 103/38 09/25/19 17:10 46 L 25 H 77/53 09/25/19 17:00 38 L 20 114/46 95 09/25/19 16:50 37 L 16 119/36 96 09/25/19 16:40 97.7 F 37 L 20 90/51 96 09/25/19 16:30 36 L 105/39 97 09/25/19 16:20 37 L 16 108/41 96 09/25/19 16:10 37 L 15 106/35 96 09/25/19 16:00 38 L 16 92/43 96 09/25/19 15:50 35 L 17 104/42 95 09/25/19 15:40 42 L 17 94 L Intake and Output 09/26/19 09/26/19 09/26/19 06:59 14:59 22:59 Intake Total 660.856 721.835 80 Output Total 550 355 0 Balance 110.856 366.835 80 Intake: IV 640 640 80 Sodium Chloride 0.9% 1, 640 640 80 000 ml @ 80 mls/hr IV . [id number] VINICIO Rx#:[id number] Intake, IV Titration 20.856 81.835 Amount Phenylephrine 40 mg In 20.856 81.835 Sodium Chloride 0.9% 250 ml @ 0.5 MCG/KG/MIN 15. 411 mls/hr IV .[id number] VINICIO Rx#:[id number] Output: Drainage 50 25 Left 50 25 Urine 500 330 0 Other: Voiding Method Indwelling Catheter Bedside Commode # Voids 0 0 Weight 88.4 kg GENERAL EXAM: Patient is alert and oriented and doesn't appear to be in any acute distress HEENT: Normocephalic. Normal reaction of pupils, equal size, normal range of extraocular motion. No erythema or exudates in the throat. NECK: No masses, no nuchal rigidity. CHEST: No chest wall deformity. LUNGS: Equal air entry with no crackles or wheeze. HEART: S1 and S2 normal with no audible mumurs or gallops. Regular rhythm, femorals equal on both sides.. ABDOMEN: No hepatosplenomegaly, normal bowel sounds, no guarding or rigidity. SKIN: No rashes CENTRAL NERVOUS SYSTEM: No focal deficits. EXTREMITIES: No cyanosis, clubbing or edema. Results 09/26/19 04:40 09/26/19 04:40 CBC 09/25/19 09/26/19 Range/Units 15:00 04:40 WBC 7.3 13.3 H (3.8-10.6) k/uL RBC 3.83 3.89 (3.80-5.40) m/uL Hgb 11.7 11.9 (11.4-16.0) gm/dL Hct 37.9 38.7 (34.0-46.0) % Plt Count 234 272 (150-450) k/uL Comprehensive Metabolic Panel 09/25/19 09/26/19 Range/Units 15:00 04:40 Sodium 137 136 L (137-145) mmol/L Potassium 4.5 5.0 (3.5-5.1) mmol/L Chloride 108 H 108 H (98-107) mmol/L Carbon Dioxide 24 23 (22-30) mmol/L BUN 12 13 (7-17) mg/dL Creatinine 0.84 0.82 (0.52-1.04) mg/dL Glucose 126 H 120 H (74-99) mg/dL Calcium 8.1 L 8.4 (8.4-10.2) mg/dL Current Medications Generic Name Dose Route Start Last Admin Trade Name Freq PRN Reason Stop Dose Admin Acetaminophen 650 mg 09/25/19 12:41 09/25/19 17:23 Tylenol Tab PO 650 mg Q4HR PRN Administration Mild Pain Hydrocodone Bitart/Acetaminophen 1 each 09/25/19 22:33 09/26/19 13:03 [place] 5-325 PO 1 each Q4HR PRN Administration Pain Al Hydroxide/Mg Hydroxide 30 ml 09/25/19 12:41 Maalox PO Q6HR PRN Indigestion Albuterol Sulfate 2.5 mg 09/25/19 12:44 Ventolin Nebulized INHALATION RT-Q6H PRN Dyspnea Aspirin 81 mg 09/26/19 09:00 09/26/19 08:45 Aspirin PO 81 mg DAILY VINICIO Administration Atorvastatin Calcium 80 mg 09/25/19 21:00 09/25/19 21:26 Lipitor PO 80 mg HS VINICIO Administration Benzocaine/Menthol 1 each 09/25/19 12:41 Cepacol Lozenge MUCOUS MEM Q2HR PRN Sore Throat Budesonide/Formoterol Fumarate 2 puff 09/25/19 20:00 09/26/19 08:32 Symbicort 160-4.5 Mcg Inhaler INHALATION 2 puff RT-BID VINICIO Administration Clonidine 0.1 mg 09/25/19 21:00 09/26/19 08:32 Catapres PO Not Given BID VINICIO Clopidogrel Bisulfate 75 mg 09/26/19 09:00 09/26/19 08:45 Plavix PO 75 mg DAILY VINICIO Administration Doxepin HCl 10 mg 09/25/19 21:00 09/25/19 21:26 [place] PO 10 mg HS VINICIO Administration Enoxaparin Sodium 40 mg 09/26/19 09:00 09/26/19 08:45 Lovenox SQ 40 mg DAILY VINICIO Administration Escitalopram Oxalate 40 mg 09/26/19 09:00 09/26/19 08:48 Lexapro PO 40 mg DAILY VINICIO Administration Gabapentin 800 mg 09/25/19 16:00 09/26/19 08:45 Neurontin PO 800 mg TID VINICIO Administration Lactated Ringer's 1,000 mls @ 20 mls/hr 09/25/19 05:42 09/26/19 04:49 Lactated Ringers IV Not Given .Q24H VINICIO Nitroglycerin/Dextrose 50 mg/ 250 mls @ 0 mls/hr 09/25/19 09:45 09/26/19 13:05 IV Solution IV Infused .Q0M VINICIO Titration Protocol Titrate Phenylephrine HCl 40 mg/ 254 mls @ 15.411 mls/hr 09/25/19 09:45 09/26/19 14:55 Sodium Chloride IV 0.4 mcg/kg/min .[id number] VINICIO 12.329 mls/hr Titration Protocol 0.5 MCG/KG/MIN Sodium Chloride 1,000 mls @ 80 mls/hr 09/25/19 12:45 09/26/19 04:49 Saline 0.9% IV 80 mls/hr .[id number] VINICIO Administration Levetiracetam 1,500 mg 09/25/19 21:00 09/26/19 08:48 Keppra PO 1,500 mg Q12HR VINICIO Administration Levothyroxine Sodium 176 mcg 09/26/19 06:30 09/26/19 06:25 Synthroid PO 176 mcg DAILY@0630 VINICIO Administration Lidocaine HCl 0.1 ml 09/25/19 05:42 09/25/19 07:50 .Xylocaine 1% Inj (10mg/Ml) For Iv Start INTRADERMA 0.1 ml PER PROTOCOL PRN Administration IV Start Trimethobenzamide HCl 200 mg 09/25/19 12:41 [place]igan IM Q4HR PRN Nausea And Vomiting Intake and Output 09/26/19 09/26/19 09/26/19 06:59 14:59 22:59 Intake Total 660.856 721.835 80 Output Total 550 355 0 Balance 110.856 366.835 80 Intake: IV 640 640 80 Sodium Chloride 0.9% 1, 640 640 80 000 ml @ 80 mls/hr IV . [id number] COUNTS INCLUDE 234 BEDS AT THE [facility] Rx#:[id number] Intake, IV Titration 20.856 81.835 Amount Phenylephrine 40 mg In 20.856 81.835 Sodium Chloride 0.9% 250 ml @ 0.5 MCG/KG/MIN 15. 411 mls/hr IV .[id number] COUNTS INCLUDE 234 BEDS AT THE [facility] Rx#:[id number] Output: Drainage 50 25 Left 50 25 Urine 500 330 0 Other: Voiding Method Indwelling Catheter Bedside Commode # Voids 0 0 Weight 88.4 kg 09/26/19 04:40 09/26/19 04:40 EKG Interpretations (text) Sinus rhythm and sinus bradycardia Assessment and Plan (1) Bradycardia Current Visit: Yes Status: Acute Code(s): R00.1 - BRADYCARDIA, UNSPECIFIED SNOMED Code(s): 04198130 (2) Carotid stenosis Current Visit: Yes Status: Acute Code(s): I65.29 - OCCLUSION AND STENOSIS OF UNSPECIFIED CAROTID ARTERY SNOMED Code(s): 27869224 (3) History of carotid endarterectomy Current Visit: Yes Status: Acute Code(s): Z98.890 - OTHER SPECIFIED POSTPROCEDURAL STATES SNOMED Code(s): 341989317 (4) CAD (coronary artery disease) Current Visit: No Status: Acute Code(s): I25.10 - ATHSCL HEART DISEASE OF [place] CORONARY ARTERY W/O ANG PCTRS SNOMED Code(s): 61067949 (5) Hypotension Current Visit: No Status: Acute Code(s): I95.9 - HYPOTENSION, UNSPECIFIED SNOMED Code(s): 10202171 Plan: Patient is currently stable at this time. Heart rate is in the 50s and 60s. Catapres is being held. Further recommendations will depend upon clinical course
[2019-09-26] MEDS: PHENYLEPHRINE 40 MG in SODIUM CHLORIDE 0.9% 250 ML IV SCH ×2 (17:08→23:36)
[2019-09-26] MEDS: DOXEPIN 10 MG CAP PO SCH (23:37)
[2019-09-26] MEDS: ATORVASTATIN 80 MG TAB PO SCH (23:37)
[2019-09-27 05:54] LABS: HCT 35.4 % (34.0-46.0); HGB 11.3 gm/dL (11.4-16.0); Hypochromasia Marked; MCH 32.2 pg (25.0-35.0); MCV 100.7 fL (80.0-100.0); Macrocytosis Slight; Mean Platelet Volume 7.4; Platelet Count 224 k/uL (150-450); RBC 3.51 m/uL (3.80-5.40); RDW 14.4 % (11.5-15.5); WBC 8.8 k/uL (3.8-10.6)
[2019-09-27 06:10] LABS: Albumin 3.2 g/dL (3.5-5.0); Calcium 8.4 mg/dL (8.4-10.2); Potassium 4.7 mmol/L (3.5-5.1); Total Bilirubin 0.2 mg/dL (0.2-1.3); Total Protein 5.7 g/dL (6.3-8.2)
[2019-09-27] MEDS: LACTATED RINGERS 1,000 ML IV SCH (06:29)
[2019-09-27] MEDS: SODIUM CHLORIDE 0.9% 1,000 ML IV SCH (06:29)
[2019-09-27] MEDS: cloNIDine HCL 0.1 MG TAB PO SCH (07:30)
--- NOTE | 2019-09-27 08:05 | P.PN ---
Subjective Principal diagnosis: Status post carotid endarterectomy The patient is postop day #2 for carotid artery endarterectomy. She is doing well with minimal pain. Vital signs have been stable off of [place]. No voiding difficulties. Underlying history of COPD. Objective - Vital Signs Vital signs: Vital Signs Temp 97.7 F 09/27/19 04:00 Pulse 66 09/27/19 07:00 Resp 12 09/27/19 07:00 BP 91/43 09/27/19 07:00 Pulse Ox 94 L 09/27/19 07:00 Intake & Output 09/26/19 09/27/19 09/27/19 18:59 06:59 18:59 Intake Total 1041.835 960 179.892 Output Total 605 645 Balance 436.835 315 179.892 Weight 89.6 kg Intake: IV 960 960 80 Sodium Chloride 0.9% 1, 960 960 80 000 ml @ 80 mls/hr IV . [id number] VINICIO Rx#:[id number] Intake, IV Titration 81.835 99.892 Amount Phenylephrine 40 mg In 81.835 99.892 Sodium Chloride 0.9% 250 ml @ 0.5 MCG/KG/MIN 15. 411 mls/hr IV .[id number] VINICIO Rx#:[id number] Output: Drainage 25 Left 25 Urine 580 645 Other: Voiding Method Bedside Commode Bedside Commode # Voids 0 1 ABP, PAP, CO, CI - Last Documented Arterial Blood Pressure 113/47 - Constitutional General appearance: Present: average body habitus - EENT Eyes: Absent: abnormal pupil - Neck Neck: Absent: lymphadenopathy - Respiratory Respiratory: bilateral: CTA - Cardiovascular Rhythm: regular Heart sounds: normal: S1, S2 Abnormal Heart Sounds: Absent: S3 Gallop - Gastrointestinal General gastrointestinal: Present: soft. Absent: tenderness - Integumentary Integumentary: Absent: cellulitis - Neurologic Neurologic: Present: CNII-XII intact - Labs CBC & Chem 7: 09/27/19 05:33 09/27/19 05:33 Labs: Abnormal Lab Results - Last 24 Hours (Table) 09/27/19 09/27/19 Range/Units 05:33 05:33 RBC 3.51 L (3.80-5.40) m/uL Hgb 11.3 L (11.4-16.0) gm/dL MCV 100.7 H (80.0-100.0) fL Chloride 111 H (98-107) mmol/L BUN 20 H (7-17) mg/dL Glucose 103 H (74-99) mg/dL Total Protein 5.7 L (6.3-8.2) g/dL Albumin 3.2 L (3.5-5.0) g/dL Assessment and Plan (1) Carotid stenosis Current Visit: Yes Status: Acute Code(s): I65.29 - OCCLUSION AND STENOSIS OF UNSPECIFIED CAROTID ARTERY SNOMED Code(s): 69534849 (2) History of carotid endarterectomy Current Visit: Yes Status: Acute Code(s): Z98.890 - OTHER SPECIFIED POSTPROCEDURAL STATES SNOMED Code(s): 769700839 (3) CAD (coronary artery disease) Current Visit: No Status: Acute Code(s): I25.10 - ATHSCL HEART DISEASE OF [place] CORONARY ARTERY W/O ANG PCTRS SNOMED Code(s): 50788725 (4) Tobacco abuse Current Visit: No Status: Acute Code(s): Z72.0 - TOBACCO USE SNOMED Code(s): 105702729 Plan: Reconcile medications as necessary. Pain control. Follow neurologically and cardiovascularly. Pulmonary toilet as necessary. We'll continue follow from a medical perspective. Hopefully anticipate discharge in next 24 hours.
[2019-09-27] MEDS: ASPIRIN 81 MG PO SCH (08:06)
[2019-09-27] MEDS: ENOXAPARIN 40 MG/0.4 ML SYRINGE SQ SCH (08:06)
[2019-09-27] MEDS: GABAPENTIN 400 MG CAP PO SCH (08:06)
[2019-09-27] MEDS: CLOPIDOGREL 75 MG TAB PO SCH (08:06)
[2019-09-27] MEDS: LEVOTHYROXINE 88 MCG TAB PO SCH (08:07)
[2019-09-27] MEDS: ESCITALOPRAM 20 MG TAB PO SCH (08:08)
[2019-09-27] MEDS: SYMBICORT 160-4.5 MCG INHALER INHALATION SCH (08:14)
--- NOTE | 2019-09-27 10:07 | P.PN ---
Subjective Progress Note Date: 09/27/19 This patient is status post carotid endarterectomy. Patient's blood pressure is improved range of 120/70. Heart rate is in the 80s. She is off her Catapres .The patient has COPD and chronic wheezing. Patient is otherwise feeling good. Patient wants to be discharged. Patient will have follow-up in the office in one week. Objective - Vital Signs Vital signs: Vital Signs Temp 98.1 F 09/27/19 08:00 Pulse 68 09/27/19 10:00 Resp 16 09/27/19 10:00 BP 118/47 09/27/19 10:00 Pulse Ox 93 L 09/27/19 10:00 Intake & Output 09/26/19 09/27/19 09/27/19 18:59 06:59 18:59 Intake Total 1041.835 960 899.892 Output Total 605 645 Balance 436.835 315 899.892 Weight 89.6 kg Intake: IV 960 960 320 Sodium Chloride 0.9% 1, 960 960 320 000 ml @ 80 mls/hr IV . [id number] VINICIO Rx#:[id number] Intake, IV Titration 81.835 99.892 Amount Phenylephrine 40 mg In 81.835 99.892 Sodium Chloride 0.9% 250 ml @ 0.5 MCG/KG/MIN 15. 411 mls/hr IV .[id number] VINICIO Rx#:[id number] Oral 480 Output: Drainage 25 Left 25 Urine 580 645 Other: Voiding Method Bedside Commode Bedside Commode Bedside Commode # Voids 0 1 1 ABP, PAP, CO, CI - Last Documented Arterial Blood Pressure 113/47 - Exam GENERAL EXAM: Patient is alert and oriented and doesn't appear to be in any acute distress HEENT: Normocephalic. Normal reaction of pupils, equal size, normal range of extraocular motion. No erythema or exudates in the throat. NECK: No masses, no nuchal rigidity. CHEST: No chest wall deformity. LUNGS: Expiratory wheezes HEART: S1 and S2 normal with no audible mumurs or gallops. Regular rhythm, femorals equal on both sides.. ABDOMEN: No hepatosplenomegaly, normal bowel sounds, no guarding or rigidity. SKIN: No rashes CENTRAL NERVOUS SYSTEM: No focal deficits. EXTREMITIES: No cyanosis, clubbing or edema. - Labs CBC & Chem 7: 09/27/19 05:33 09/27/19 05:33 Labs: Abnormal Lab Results - Last 24 Hours (Table) 09/27/19 09/27/19 Range/Units 05:33 05:33 RBC 3.51 L (3.80-5.40) m/uL Hgb 11.3 L (11.4-16.0) gm/dL MCV 100.7 H (80.0-100.0) fL Chloride 111 H (98-107) mmol/L BUN 20 H (7-17) mg/dL Glucose 103 H (74-99) mg/dL Total Protein 5.7 L (6.3-8.2) g/dL Albumin 3.2 L (3.5-5.0) g/dL Assessment and Plan (1) Bradycardia Current Visit: Yes Status: Acute Code(s): R00.1 - BRADYCARDIA, UNSPECIFIED SNOMED Code(s): 73811519 (2) Carotid stenosis Current Visit: Yes Status: Acute Code(s): I65.29 - OCCLUSION AND STENOSIS OF UNSPECIFIED CAROTID ARTERY SNOMED Code(s): 42569321 (3) History of carotid endarterectomy Current Visit: Yes Status: Acute Code(s): Z98.890 - OTHER SPECIFIED POSTPROCEDURAL STATES SNOMED Code(s): 850685056 (4) CAD (coronary artery disease) Current Visit: No Status: Acute Code(s): I25.10 - ATHSCL HEART DISEASE OF [place] CORONARY ARTERY W/O ANG PCTRS SNOMED Code(s): 07649916 (5) Hypotension Current Visit: No Status: Acute Code(s): I95.9 - HYPOTENSION, UNSPECIFIED SNOMED Code(s): 09278670 Plan: Patient is being discharged home. She will be off Catapres. Follow-up in the office in one week
[2019-09-27] MEDS: ACETAMINOPHEN TAB 325 MG TAB PO PRN (10:24)
--- NOTE | 2019-09-27 11:50 | P.PN ---
Subjective Progress Note Date: 09/27/19 The patient was seen and examined this morning. No acute changes through the night. Patient is without complaints of any chest pain, shortness of breath, or focal deficits. Patient has been using [place] for pain management through out the evening. Blood pressures have stabilized, Juan was discontinued. Will have cardiology follow up today before discharge. If blood pressure remained stable patient may be discharged home today with follow-up with Dr. Bello in the office in 7-10 days. Objective - Vital Signs Vital signs: Vital Signs Temp 98.1 F 09/27/19 08:00 Pulse 65 09/27/19 11:00 Resp 20 09/27/19 11:00 BP 108/44 09/27/19 11:00 Pulse Ox 94 L 09/27/19 11:00 Intake & Output 09/26/19 09/27/19 09/27/19 18:59 06:59 18:59 Intake Total 1041.835 960 899.892 Output Total 605 645 Balance 436.835 315 899.892 Weight 89.6 kg Intake: IV 960 960 320 Sodium Chloride 0.9% 1, 960 960 320 000 ml @ 80 mls/hr IV . [id number] [facility] Rx#:[id number] Intake, IV Titration 81.835 99.892 Amount Phenylephrine 40 mg In 81.835 99.892 Sodium Chloride 0.9% 250 ml @ 0.5 MCG/KG/MIN 15. 411 mls/hr IV .[id number] [facility]ICIO Rx#:[id number] Oral 480 Output: Drainage 25 Left 25 Urine 580 645 Other: Voiding Method Bedside Commode Bedside Commode Bedside Commode # Voids 0 1 1 ABP, PAP, CO, CI - Last Documented Arterial Blood Pressure 113/47 - Exam General appearance: The patient is alert, oriented, in no acute distress. HET: Head is normocephalic and atraumatic. Pupils are equal and reactive. Neck: Supple without lymphadenopathy. Trachea midline. Incision clean dry and intact, well approximated. Heart: S1 S2. Regular rate and rhythm. Lungs: No crackles or wheezes are heard. Extremities: Normal skin color and turgor. No cyanosis, rash, ulceration, clubbing, or edema. Radial and pedal pulses are 2/4 bilaterally. Neurological: No focal deficits. Strength and sensation are grossly intact. - Labs CBC & Chem 7: 09/27/19 05:33 09/27/19 05:33 Labs: Abnormal Lab Results - Last 24 Hours (Table) 09/27/19 09/27/19 Range/Units 05:33 05:33 RBC 3.51 L (3.80-5.40) m/uL Hgb 11.3 L (11.4-16.0) gm/dL MCV 100.7 H (80.0-100.0) fL Chloride 111 H (98-107) mmol/L BUN 20 H (7-17) mg/dL Glucose 103 H (74-99) mg/dL Total Protein 5.7 L (6.3-8.2) g/dL Albumin 3.2 L (3.5-5.0) g/dL Assessment and Plan Assessment: 1. Postop day 2 for left carotid endarterectomy with patch angioplasty 2. Left internal carotid artery stenosis 3. Hypotension 4. COPD, oxygen dependent 5. Coronary artery disease 6. Seizure disorder Plan: If blood pressure remains stable off of the Juan, patient may be discharged home if cleared by cardiology. Patient to remain off of her Catapres at this time. She will follow-up with Dr. Bello in the office in 7-10 days. She was instructed to wait 24 hours before showering, no tub bathing until evaluated by Dr. Bello, and no heavy lifting greater than 10 pounds. The above dictated assessment and findings were discussed with Dr. Casillas. The impression and plan of care have been directed as dictated.
[2019-09-27] MEDS: PHENYLEPHRINE 40 MG in SODIUM CHLORIDE 0.9% 250 ML IV SCH (12:05)
--- NOTE | 2019-09-27 15:49 | CDI ---
Documentation Clarification Form Date: 09/27/2019 03:35:59 PM From: Shea SoodRADHA arellano, CCDS Admit Date: 09/25/2019 07:03:00 AM Patient Name: Lidia Chang Visit Number: [id number] Discharge Date: ATTENTION: The Clinical Documentation Specialists (CDI) and [facility] Coding Staff appreciate your assistance in clarifying documentation. Please respond to the clarification below the line at the bottom and electronically sign. The CDI & [facility] Coding staff will review the response and follow-up if needed. Please note: Queries are made part of the Legal Health Record. If you have any questions, please contact the author of this message via ITS. Dr. Gaudencio Bello: Per the 09/25 Discharge Summary: the patient developed bradycardia & was hypotensive through the night requiring some pressors. Per the 09/25 Cardiology Consult & the 09/26 Cardiology Progress Note: Patient developed bradycardia with rates as low as 30. Patients Admitting Diagnosis: Left Carotid Stenosis Post-Operative Diagnosis: Left Carotid Stenosis Procedure performed: Left Endarterectomy with Patch Angioplasty History/Risk Factors: COPD on Home O2, CAD, Seizure disorder. Clinical Indicators: Patient presented for elective procedure on 09/24. VS 09/24 Postop: T 98.0 - 96.9*, P 73 - 50*, R 16-18, BP 114/65 - 89/47 Treatment: IV Cefazolin, IV Decadron, IV Dilaudid, IV Nitro, IV Heparin, IV fluid bolus 500 mls @ 999 mls/hr, INH Symbicort. In order to accurately reflect this patients severity of illness, please clarify if the bradycardia & hypotension: is a complication of surgical procedure is an expected outcome of the surgical procedure is related to co-morbid condition(s) of Other please specify: Unable to determine (Last Revision: April 2019) unable to determine MTDD
--- NOTE | 2019-09-27 16:01 | CDI ---
Documentation Clarification Form Date: 09/27/2019 03:51:00 PM From: Shea SoodRADHA arellano, CCDS Admit Date: 09/25/2019 07:03:00 AM Patient Name: Lidia Chang Visit Number: [id number] Discharge Date: ATTENTION: The Clinical Documentation Specialists (CDI) and [facility] Coding Staff appreciate your assistance in clarifying documentation. Please respond to the clarification below the line at the bottom and electronically sign. The CDI & [facility] Coding staff will review the response and follow-up if needed. Please note: Queries are made part of the Legal Health Record. If you have any questions, please contact the author of this message via ITS. Dr. Jose F Mcwilliams: The patient presented on 09/24 for an elective Left Carotid Endarterectomy for Left Carotid Stenosis. Per the documentation in the Discharge Summary, the patient wears Home O2 & required 2-4Lnc through the night on 09/25. Patients Admitting Diagnosis: Left Carotid Stenosis Post-Operative Diagnosis: Left Carotid Stenosis Procedure performed: Left Endarterectomy with Patch Angioplasty History/Risk Factors: COPD on Home O2, CAD, Seizure disorder. Current Smoker. Clinical Indicators: Patient presented for elective procedure on 09/24. The patient also became bradycardic & hypotensive during the night on 09/24-09/25. VS 09/24: P 42, R 17-25^, BP 92/43*, PO 94-96 4Lnc. PO 88 on 09/26 on 2Lnc Treatment: IV Cefazolin, IV Decadron, IV Dilaudid, IV Nitro, IV Heparin, IV fluid bolus 500 mls @ 999 mls/hr, INH Symbicort. O2 2-4Lnc. In your professional opinion, can you please clarify if these findings signify one of the following conditions? Acute Respiratory Failure Acute on Chronic Respiratory Failure-This is the correct diagnosis Chronic Respiratory Failure Other Diagnosis, please specify Unable to determine Specificity: o If known, further specify (if known): With hypercapnia? With hypoxia? -with hypoxia is the correct diagnosis (Last Query Form Revision: November 2018) MTDD
[2019-09-28 05:33] VITALS: BP 107/56; PULSE 90; RESP 21; TEMP 98.1
== END 2019-09-27 13:24 | disposition home or self-care (01) | DRG 37 ==
LOC: 2ORMAIN 07:03 → EDSTATUS 08:30 → 2SICU 13:49
PROVIDERS: ADMIT Surgery; ATTEND Surgery
PROC: 03UL0JZ Supplement Left Internal Carotid Artery with Synthetic Substitute, Open Approach (ICD-10-PCS; 2019-09-25)
PROC: 03CL0ZZ Extirpation of Matter from Left Internal Carotid Artery, Open Approach (ICD-10-PCS; principal; 2019-09-25 08:30)
DX: I65.23 Occlusion and stenosis of bilateral carotid arteries (principal); J96.21 Acute and chronic respiratory failure with hypoxia; I95.9 Hypotension, unspecified; Z99.81 Dependence on supplemental oxygen; J44.9 Chronic obstructive pulmonary disease, unspecified; G40.909 Epilepsy, unspecified, not intractable, without status epilepticus; I25.10 Atherosclerotic heart disease of native coronary artery without angina pectoris; G62.9 Polyneuropathy, unspecified; F32.9 Major depressive disorder, single episode, unspecified; F17.210 Nicotine dependence, cigarettes, uncomplicated; R00.1 Bradycardia, unspecified; I10 Essential (primary) hypertension; E03.9 Hypothyroidism, unspecified; Z79.899 Other long term (current) drug therapy; Z79.890 Hormone replacement therapy; Z79.02 Long term (current) use of antithrombotics/antiplatelets; Z79.51 Long term (current) use of inhaled steroids; Z79.82 Long term (current) use of aspirin; Z95.5 Presence of coronary angioplasty implant and graft; Z90.710 Acquired absence of both cervix and uterus; Z98.890 Other specified postprocedural states; Z80.9 Family history of malignant neoplasm, unspecified; Z82.49 Family history of ischemic heart disease and other diseases of the circulatory system
CPT/HCPCS: 80048; 80053; 85025; 85027; 86850; 86900; 86901; 88304; 88305; 94640

== ENCOUNTER 2020-08-20 14:29 | Observation (INO) | payer MEDICARE ==
[2020-08-20] MEDS ORDERED: NITROGLYCERIN OINT 1 INCH/GM PACKET TOPICAL STA (14:53)
[2020-08-20] MEDS ORDERED: ASPIRIN 81 MG PO STA (14:53)
--- NOTE | 2020-08-20 14:57 | ED ---
General Adult HPI - General Chief complaint: Chest Pain Stated complaint: chest pain Time Seen by Provider: 08/20/20 14:33 Source: patient, EMS, RN notes reviewed Mode of arrival: EMS Limitations: no limitations - History of Present Illness Initial comments: Patient is a pleasant [age]-year-old female presenting to the emergency Department with complaints of chest discomfort. Onset of symptoms was today while cleaning. Discomfort was somewhat severe however now is near resolved. Patient did have nitroglycerin. Patient complains of an ache in her chest with radiation towards the back. Patient did have some associated dyspnea. No nausea. No diaphoresis. No leg pain or leg swelling. Symptoms were somewhat similar to symptoms she had prior to her first cardiac stent. - Related Data Home Medications Medication Instructions Recorded Confirmed Escitalopram [Lexapro] 40 mg PO DAILY 11/28/17 09/25/19 Gabapentin [Neurontin] 800 mg PO TID 11/29/17 09/25/19 Albuterol Inhaler (Mhu) [Ventolin 2 puff INHALATION RT-Q6H PRN 05/08/18 09/25/19 Hfa Inhaler (Mhu)] levETIRAcetam [Keppra] 1,500 mg PO Q12HR 07/18/18 09/25/19 Doxepin [SINEquan] 10 mg PO HS 02/27/19 09/25/19 Budesonide-Formot 160-4.5 Mcg 2 puff INHALATION RT-BID 04/24/19 09/25/19 [Symbicort 160-4.5 Mcg Inhaler] Clopidogrel [Plavix] 75 mg PO DAILY 09/11/19 09/25/19 Aspirin [Children's Aspirin] 81 mg PO DAILY MDD 81 09/25/19 09/25/19 Previous Rx's Medication Instructions Recorded Atorvastatin [Lipitor] 80 mg PO HS #30 tab 11/30/17 HYDROcodone/APAP 5-325MG [[place] 1 each PO Q4HR PRN #12 tab 09/26/19 5-325] Levothyroxine Sodium [Synthroid] 176 mcg PO DAILY@0630 tab 09/27/19 Allergies Allergy/AdvReac Type Severity Reaction Status Date / Time ibuprofen [From Motrin] Allergy Abdominal Verified 08/20/20 14:41 Pain Review of Systems ROS Statement: Those systems with pertinent positive or pertinent negative responses have been documented in the HPI. ROS Other: All systems not noted in ROS Statement are negative. Constitutional: Denies: fever Eyes: Denies: eye pain ENT: Denies: ear pain Respiratory: Reports: as per HPI. Denies: cough Cardiovascular: Reports: as per HPI, chest pain Endocrine: Denies: fatigue Gastrointestinal: Denies: abdominal pain, nausea Genitourinary: Denies: dysuria Musculoskeletal: Denies: back pain Skin: Denies: rash Neurological: Denies: weakness Past Medical History Past Medical History: Asthma, Coronary Artery Disease (CAD), Chest Pain / Angina, COPD, Seizure Disorder, Thyroid Disorder Additional Past Medical History / Comment(s): SLIGHT COPD. 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 Leftt carotid blockage History of Any Multi-Drug Resistant Organisms: None Reported Past Surgical History: Heart Catheterization, Heart Catheterization With Stent, Hysterectomy, Orthopedic Surgery Additional Past Surgical History / Comment(s): RT ROTATOR CUFF REPAIR, CYSTS REMOVED FROM UNDER ARMS AND HANDS, 4 stents, 07/18/18 left subclavian stent. Past Anesthesia/Blood Transfusion Reactions: No Reported Reaction Date of Last Stent Placement:: Nov 2017 Past Psychological History: Depression Smoking Status: Current every day smoker Past Alcohol Use History: None Reported Past Drug Use History: None Reported - Past Family History Mother Family Medical History: Cancer Sister(s) Family Medical History: Cancer General Exam Limitations: no limitations General appearance: alert, in no apparent distress Head exam: Present: normocephalic Eye exam: Present: normal appearance Neck exam: Present: normal inspection Respiratory exam: Present: wheezes (Patient admits to being a chronic smoker and that she is trying to quit.). Absent: chest wall tenderness Cardiovascular Exam: Present: regular rate, normal rhythm Expanded Peripheral pulses: 2+: Radial (R), Radial (L), Dorsalis Pedis (R), Dorsalis Pedis (L) GI/Abdominal exam: Present: soft. Absent: tenderness Extremities exam: Present: normal inspection. Absent: pedal edema, calf tenderness Back exam: Present: normal inspection Neurological exam: Present: alert Psychiatric exam: Present: normal affect, normal mood Skin exam: Present: normal color Course Vital Signs 08/20/20 14:41 Temperature 97.9 F Pulse Rate 71 Respiratory 18 Rate Blood Pressure 72/44 O2 Sat by Pulse 98 Oximetry EKG Findings - EKG Comments: EKG Findings:: Normal sinus rhythm with rate of 72. [place] 156. QRS 74. QT 404. QTC 440. Left axis. Normal QRS. No ST change. Medical Decision Making - Medical Decision Making Patient reevaluated. Patient updated on results and plan. Dr. Mcwilliams has been paged for admission of this patient. Case was discussed with Dr. Mcwilliams, who will admit. - Lab Data Result diagrams: 08/20/20 14:57 08/20/20 14:57 Lab Results 08/20/20 08/20/20 08/20/20 Range/Units 14:57 14:57 14:57 WBC 9.2 (3.8-10.6) k/uL RBC 4.01 (3.80-5.40) m/uL Hgb 13.2 (11.4-16.0) gm/dL Hct 39.3 (34.0-46.0) % MCV 98.1 (80.0-100.0) fL MCH 32.9 (25.0-35.0) pg MCHC 33.6 (31.0-37.0) g/dL RDW 15.5 (11.5-15.5) % Plt Count 303 (150-450) k/uL MPV 6.7 Neutrophils % 63 % Lymphocytes % 27 % Monocytes % 5 % Eosinophils % 3 % Basophils % 1 % Neutrophils # 5.8 (1.3-7.7) k/uL Lymphocytes # 2.5 (1.0-4.8) k/uL Monocytes # 0.4 (0-1.0) k/uL Eosinophils # 0.3 (0-0.7) k/uL Basophils # 0.1 (0-0.2) k/uL Macrocytosis Slight PT 10.3 (9.0-12.0) sec INR 1.0 (<1.2) APTT 23.6 (22.0-30.0) sec D-Dimer 0.49 (<0.60) mg/L FEU Sodium 133 L (137-145) mmol/L Potassium 4.5 (3.5-5.1) mmol/L Chloride 103 (98-107) mmol/L Carbon Dioxide 25 (22-30) mmol/L Anion Gap 5 mmol/L BUN 6 L (7-17) mg/dL Creatinine 1.07 H (0.52-1.04) mg/dL Est GFR (CKD-EPI)AfAm 65 (>60 ml/min/1.73 sqM) Est GFR (CKD-EPI)NonAf 57 (>60 ml/min/1.73 sqM) Glucose 105 H (74-99) mg/dL Calcium 8.4 (8.4-10.2) mg/dL Magnesium 1.9 (1.6-2.3) mg/dL Total Bilirubin 0.1 L (0.2-1.3) mg/dL AST 23 (14-36) U/L ALT 10 (4-34) U/L Alkaline Phosphatase 94 (38-126) U/L Troponin I (0.000-0.034) ng/mL NT-Pro-B Natriuret Pep pg/mL Total Protein 6.7 (6.3-8.2) g/dL Albumin 4.0 (3.5-5.0) g/dL 08/20/20 08/20/20 Range/Units 14:57 14:57 WBC (3.8-10.6) k/uL RBC (3.80-5.40) m/uL Hgb (11.4-16.0) gm/dL Hct (34.0-46.0) % MCV (80.0-100.0) fL MCH (25.0-35.0) pg MCHC (31.0-37.0) g/dL RDW (11.5-15.5) % Plt Count (150-450) k/uL MPV Neutrophils % % Lymphocytes % % Monocytes % % Eosinophils % % Basophils % % Neutrophils # (1.3-7.7) k/uL Lymphocytes # (1.0-4.8) k/uL Monocytes # (0-1.0) k/uL Eosinophils # (0-0.7) k/uL Basophils # (0-0.2) k/uL Macrocytosis PT (9.0-12.0) sec INR (<1.2) APTT (22.0-30.0) sec D-Dimer (<0.60) mg/L FEU Sodium (137-145) mmol/L Potassium (3.5-5.1) mmol/L Chloride (98-107) mmol/L Carbon Dioxide (22-30) mmol/L Anion Gap mmol/L BUN (7-17) mg/dL Creatinine (0.52-1.04) mg/dL Est GFR (CKD-EPI)AfAm (>60 ml/min/1.73 sqM) Est GFR (CKD-EPI)NonAf (>60 ml/min/1.73 sqM) Glucose (74-99) mg/dL Calcium (8.4-10.2) mg/dL Magnesium (1.6-2.3) mg/dL Total Bilirubin (0.2-1.3) mg/dL AST (14-36) U/L ALT (4-34) U/L Alkaline Phosphatase (38-126) U/L Troponin I <0.012 (0.000-0.034) ng/mL NT-Pro-B Natriuret Pep 560 pg/mL Total Protein (6.3-8.2) g/dL Albumin (3.5-5.0) g/dL - Radiology Data Radiology results: image reviewed (Chest x-ray does show some linear bibasilar opacities suggestive of atelectasis or pneumonia.) Disposition Clinical Impression: Chest pain Disposition: ADMITTED IP TO THIS HOSP Is patient prescribed a controlled substance at d/c from ED?: No Referrals: Jose F Mcwililams MD [Primary Care Provider] - 1-2 days Decision Time: 15:49
[2020-08-20 15:11] LABS: Basophils # (A) 0.1 k/uL (0-0.2); Basophils % (A) 1 %; Eosinophils # (A) 0.3 k/uL (0-0.7); Eosinophils % (A) 3 %; HCT 39.3 % (34.0-46.0); HGB 13.2 gm/dL (11.4-16.0); Lymphocytes # (A) 2.5 k/uL (1.0-4.8); Lymphocytes % (A) 27 %; MCH 32.9 pg (25.0-35.0); MCHC 33.6 g/dL (31.0-37.0); MCV 98.1 fL (80.0-100.0); Macrocytosis Slight; Mean Platelet Volume 6.7; Monocytes # (A) 0.4 k/uL (0-1.0); Monocytes % (A) 5 %; Neutrophils # (A) 5.8 k/uL (1.3-7.7); Neutrophils % (A) 63 %; Platelet Count 303 k/uL (150-450); RBC 4.01 m/uL (3.80-5.40); RDW 15.5 % (11.5-15.5); WBC 9.2 k/uL (3.8-10.6)
[2020-08-20 15:25] LABS: Calcium 8.4 mg/dL (8.4-10.2); D-Dimer 0.49 mg/L FEU (<0.60); Magnesium 1.9 mg/dL (1.6-2.3); Partial Thromboplastin Time 23.6 sec (22.0-30.0); Potassium 4.5 mmol/L (3.5-5.1); Prothrombin Time 10.3 sec (9.0-12.0); Total Bilirubin 0.1 mg/dL (0.2-1.3); Total Protein 6.7 g/dL (6.3-8.2)
--- NOTE | 2020-08-20 15:38 | XR ---
EXAMINATION TYPE: XR chest 2V DATE OF EXAM: 08/20/2020 COMPARISON: 03/06/2019 HISTORY: Chest pain TECHNIQUE: Frontal and lateral views of the chest are obtained. FINDINGS: Multiple overlying leads. Heart size is within normal limits. Atherosclerotic aortic knob. No pneumothorax or pleural effusion. Minimal linear atelectasis or pleural effusion. Mild bibasilar linear atelectasis or Pneumonitis at the lung bases. Degenerative changes of the thoracic spine and o steopenia. IMPRESSION: 1. Minimal linear bibasilar airspace opacities suggestive of atelectasis or pneumonitis.
[2020-08-20] MEDS ORDERED: NITROGLYCERIN SL TABS 0.4 MG TAB SUBLINGUAL PRN (15:49)
[2020-08-20] MEDS ORDERED: ONDANSETRON 4 MG/2 ML VIAL IVP STA (15:54)
[2020-08-20] MEDS: NITROGLYCERIN OINT 1 INCH/GM PACKET TOPICAL SCH (17:57)
[2020-08-21] MEDS: NITROGLYCERIN OINT 1 INCH/GM PACKET TOPICAL SCH ×5 (00:26→22:48)
[2020-08-21] MEDS ORDERED: SYMBICORT 160-4.5 MCG INHALER INHALATION PRN (08:02)
[2020-08-21] MEDS ORDERED: ALBUTEROL NEBULIZED 1.25 MG/3 ML INHALATION PRN (08:02)
[2020-08-21] MEDS ORDERED: NITROGLYCERIN SL TABS 0.4 MG TAB SUBLINGUAL PRN (08:02)
--- NOTE | 2020-08-21 08:02 | P.HPIM ---
History of Present Illness H&P Date: 08/21/20 Chief Complaint: Chest pain This is a history of physical 60-year-old white female who is complaining of substernal chest pain. The patient states the pain was pressure-like and severe. No radiation. Some mild nausea but no vomiting. The patient stated no significant arm pain. But the pain was not resolved with nitroglycerin given at home. Multiple risk factors are noted and the patient is admitted for angina. Enzymatic elevation is not noted. Cardiology is consulted. She tolerated diet appropriately. No loss of consciousness. No headache no visual distortion stated. Given her underlying history of COPD and history of CAD in the past that she is appropriately evaluated. Review of Systems Constitutional: Denies chills, Denies fever Eyes: denies blurred vision, denies pain Ears, nose, mouth and throat: Denies headache, Denies sore throat Cardiovascular: Reports chest pain Respiratory: Denies cough Gastrointestinal: Denies abdominal pain, Denies diarrhea, Denies nausea, Denies vomiting Genitourinary: Denies dysuria, Denies hematuria Musculoskeletal: Denies myalgias Integumentary: Denies pruritus, Denies rash Neurological: Denies numbness, Denies weakness Past Medical History Past Medical History: Asthma, Coronary Artery Disease (CAD), Chest Pain / Angina, COPD, Seizure Disorder, Thyroid Disorder Additional Past Medical History / Comment(s): SLIGHT COPD. 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 Leftt carotid blockage History of Any Multi-Drug Resistant Organisms: None Reported Past Surgical History: Heart Catheterization, Heart Catheterization With Stent, Hysterectomy, Orthopedic Surgery Additional Past Surgical History / Comment(s): RT ROTATOR CUFF REPAIR, CYSTS REMOVED FROM UNDER ARMS AND HANDS, 4 stents, 07/18/18 left subclavian stent. Past Anesthesia/Blood Transfusion Reactions: No Reported Reaction Date of Last Stent Placement:: Nov 2017 Past Psychological History: Depression Smoking Status: Current every day smoker Past Alcohol Use History: None Reported Past Drug Use History: None Reported - Past Family History Mother Family Medical History: Cancer Sister(s) Family Medical History: Cancer Medications and Allergies Home Medications Medication Instructions Recorded Confirmed Type Escitalopram [Lexapro] 40 mg PO DAILY 11/28/17 08/20/20 History Gabapentin [Neurontin] 800 mg PO TID 11/29/17 08/20/20 History levETIRAcetam [Keppra] 1,500 mg PO BID 07/18/18 08/20/20 History Doxepin [SINEquan] 10 mg PO HS 02/27/19 08/20/20 History Budesonide-Formot 160-4.5 Mcg 2 puff INHALATION RT-BID PRN 04/24/19 08/20/20 History [Symbicort 160-4.5 Mcg Inhaler] Clopidogrel [Plavix] 75 mg PO DAILY 09/11/19 08/20/20 History Aspirin [Children's Aspirin] 81 mg PO DAILY 09/25/19 08/20/20 History Albuterol Nebulized [Ventolin 1.25 mg INHALATION RT-TID PRN 08/20/20 08/20/20 History Nebulized] Atorvastatin [Lipitor] 80 mg PO DAILY 08/20/20 08/20/20 History Levothyroxine Sodium 200 mcg PO DAILY 08/20/20 08/20/20 History Nitroglycerin Sl Tabs [Nitrostat] 0.4 mg SL Q5M PRN 08/20/20 08/20/20 History cloNIDine HCL [Catapres] 0.2 mg PO BID 08/20/20 08/20/20 History Allergies Allergy/AdvReac Type Severity Reaction Status Date / Time ibuprofen [From Motrin] AdvReac Abdominal Verified 08/20/20 16:34 Pain Physical Exam Vitals: Vital Signs Temp Pulse Resp BP Pulse Ox 08/21/20 07:00 97.8 F 67 18 110/69 97 08/21/20 03:30 67 16 121/66 94 L 08/20/20 17:58 69 18 97/75 96 08/20/20 14:41 97.9 F 71 18 72/44 98 - Constitutional General appearance: obese - EENT Eyes: EOMI - Neck Neck: no lymphadenopathy - Respiratory Respiratory: bilateral: CTA - Cardiovascular Rhythm: regular Heart sounds: normal: S1, S2 Abnormal Heart Sounds: no S3 Gallop - Gastrointestinal General gastrointestinal: soft, no tenderness - Neurologic Neurologic: CNII-XII intact - Psychiatric Psychiatric: A&O x's 3, appropriate affect, intact judgment & insight Results CBC & Chem 7: 08/20/20 14:57 08/20/20 14:57 Labs: Abnormal Lab Results - Last 24 Hours (Table) 08/20/20 Range/Units 14:57 Sodium 133 L (137-145) mmol/L BUN 6 L (7-17) mg/dL Creatinine 1.07 H (0.52-1.04) mg/dL Glucose 105 H (74-99) mg/dL Total Bilirubin 0.1 L (0.2-1.3) mg/dL Assessment and Plan (1) Chest pain Current Visit: Yes Status: Acute Code(s): R07.9 - CHEST PAIN, UNSPECIFIED SNOMED Code(s): 14337913 (2) History of carotid endarterectomy Current Visit: No Status: Acute Code(s): Z98.890 - OTHER SPECIFIED POSTPROCEDURAL STATES SNOMED Code(s): 506332814 (3) Opiate dependence Current Visit: No Status: Acute Code(s): F11.20 - OPIOID DEPENDENCE, UNCOMPLICATED SNOMED Code(s): 24880486 (4) Tobacco abuse Current Visit: No Status: Acute Code(s): Z72.0 - TOBACCO USE SNOMED Code(s ): 921011502 (5) Unstable angina pectoris Current Visit: No Status: Acute Code(s): I20.0 - UNSTABLE ANGINA SNOMED Code(s): 3360662 Plan: Rule out myocardial infarction. Reconcile home medications. No enzymatic elevation is noted on troponin. We will go ahead and await cardiology input. Anticipate discharge in next 24 hours. Question need for appropriate stress testing. Time with Patient: Greater than 30
[2020-08-21] MEDS ORDERED: ASPIRIN 325 MG TAB PO SCH (09:00)
[2020-08-21] MEDS: CLOPIDOGREL 75 MG TAB PO SCH (09:30)
[2020-08-21] MEDS: cloNIDine HCL 0.2 MG TAB PO SCH ×2 (09:30→21:34)
[2020-08-21] MEDS: ATORVASTATIN 80 MG TAB PO SCH (09:30)
[2020-08-21] MEDS: ASPIRIN 81 MG PO SCH (09:30)
[2020-08-21] MEDS: GABAPENTIN 400 MG CAP PO SCH ×3 (09:30→21:42)
[2020-08-21] MEDS: METOPROLOL SUCCINATE (ER) 25 MG TAB.ER.24H PO SCH (09:31)
[2020-08-21] MEDS ORDERED: ALPRAZolam 0.5 MG TAB PO PRN (09:52)
[2020-08-21] MEDS ORDERED: ALPRAZolam 0.25 MG TAB PO PRN (09:52)
[2020-08-21] MEDS: ESCITALOPRAM 20 MG TAB PO SCH (09:58)
[2020-08-21] MEDS: LEVOTHYROXINE 100 MCG TAB PO SCH (09:58)
[2020-08-21 11:13] LABS: Chol/HDL Ratio 7.16
[2020-08-21] MEDS ORDERED: IV FLUID CONTINUATION 1,000 ML IV ONE (12:30)
[2020-08-21] MEDS ORDERED: MIDAZOLAM 2 MG/2 ML VIAL IV ONE (12:45)
[2020-08-21] MEDS ORDERED: LIDOCAINE 1% INJ 10MG/ML (20 ML MDV) SQ ONE (12:46)
[2020-08-21] MEDS ORDERED: fentaNYL (PF) 50 MCG/ML 2 ML AMP IV ONE (12:50)
[2020-08-21] MEDS ORDERED: IOPAMIDOL-370 125ML BTL INJ ONE (13:03)
[2020-08-21] MEDS ORDERED: RX INFO: IV CONTRAST WAS GIVEN 1 EACH MISC MISCELLANE PRN (13:05)
[2020-08-21] MEDS ORDERED: SODIUM CHLORIDE 0.9% 1,000 ML IV SCH (13:15)
--- NOTE | 2020-08-21 15:16 | CONS ---
CONSULTATION CHIEF COMPLAINT: Chest pain. HISTORY OF PRESENT ILLNESS: Lidia is a 60-year-old lady with history of coronary artery disease, status post prior multivessel angioplasty, hypertension, dyslipidemia, who presented to hospital complaining of precordial chest pain. She describes it as precordial chest pressure, moderate intensity that started yesterday and had gotten worse. It radiated to her jaw and down her left arm. At the time of my evaluation, she appears comfortable at rest and is free of symptoms. EKG did not reveal ischemic changes. Cardiac enzymes have been negative. She has known coronary artery disease and had a cardiac catheterization in 2019 that showed a patent stent within the mid LAD. Given her symptoms of unstable angina, I advised the patient to undergo cardiac catheterization for further evaluation. She has been explained of risks, benefits and alternatives, understood and accepted. PAST MEDICAL HISTORY: Significant for coronary artery disease status post angioplasty of LAD, hypertension, dyslipidemia. CURRENT MEDICATIONS: Include Lipitor 80 daily, aspirin, Ventolin, Plavix 75 daily, doxepin, Lexapro, Neurontin, levothyroxine, Catapres, Keppra. ALLERGIES: ALLERGIC TO MOTRIN. FAMILY HISTORY: Negative for premature coronary artery disease. SOCIAL HISTORY: Negative for smoking, EtOH abuse, or drug abuse. REVIEW OF SYSTEMS: HEENT is unremarkable. CARDIAC as described above. RESPIRATORY negative. GI negative. GENITOURINARY: Negative. ALLERGY/IMMUNOLOGY: Negative. SKIN negative. MUSCULOSKELETAL negative. ENDOCRINE: Negative. DERM negative. CONSTITUTIONAL: Negative. ONCOLOGICAL negative. MEAT CARVER negative. Rest of the system review is not relevant. PHYSICAL EXAMINATION: Patient is afebrile. Vital signs are stable. There is no jugular venous distention. Carotid upstroke is normal. There is no bruit. Chest exam reveals good air entry bilaterally. Heart exam reveals first and second heart sounds. No gallop. No murmur. No rub. Abdomen is soft, nontender. Examination of extremities did not reveal edema. Peripheral pulses are felt. LABS: Labs show that 3 sets of tropes are negative. Potassium is 4.5, creatinine is 1. Hemoglobin is 13.2. ASSESSMENT: Unstable angina. PLAN: Patient will undergo cardiac catheterization today. MMODL / IJN: [id number] /
[2020-08-21] MEDS: SODIUM CHLORIDE 0.9% 1,000 ML in EMPTY BAG 1 BAG IV ONE ×2 (17:17→17:23)
[2020-08-21 17:22] LABS: Glucose,Whole Blood 123 mg/dL (75-99)
--- NOTE | 2020-08-21 19:16 | CC ---
CARDIAC CATHETERIZATION REPORT DATE OF SERVICE: August 20, 2020. PERFORMING PHYSICIAN: Karthik Vale MD. PROCEDURE PERFORMED: 1. Selective right and left coronary angiogram. 2. Left heart catheterization. INDICATION: This is a pleasant 60-year-old female patient with known coronary artery disease and prior stenting of the LAD who presented to the hospital with chest discomfort and is concerning for severe underlying coronary artery disease. She was seen by Dr. Watters who recommended proceeding with coronary angiogram. APPROACH: Right common femoral artery. COMPLICATION: None. LEVEL OF SEDATION: Moderate with sedation length of 15 minutes. PROCEDURE DESCRIPTION: After obtaining informed consent, the patient was brought to the cardiac research laboratory manager. The right common femoral artery was cannulated using micropuncture technique and a micropuncture wire passed easily. Then I placed a 6-Jordanian sheath at the right common femoral artery. Selective right and left coronary angiogram performed using JR4 and JL4 catheters. Left heart catheterization was performed using the JR4 catheter which crossed the aortic valve. After that, the procedure was completed without any complication. SELECTIVE CORONARY ANGIOGRAM: 1. The RCA is a large caliber vessel, it is a dominant vessel. The RCA has mild disease only. Distally, it bifurcates into PDA and PLV branches both appeared to be angiographically normal. 2. The left main is angiographically normal. It bifurcates into LCX and ramus intermedius and left anterior descending artery. 3. The LCX is a large caliber vessel it is a codominant vessel. The LCX has mild to moderate disease in the midportion. There is no high-grade stenosis seen. 4. The ramus intermedius is angiographically normal. 5. The LAD is stented in the midportion and the stent is patent. The LAD otherwise appeared to have no high-grade stenosis. Gives rise into multiple small diagonal branches. HEMODYNAMICS: The LVEDP was 24 mmHg without significant gradient across aortic valve. CONCLUSION: 1. Patent stent in the proximal and mid left anterior descending artery. 2. Elevated LVEDP. POSTPROCEDURE MANAGEMENT: 1. Medical treatment. 2. IV diuretics. 3. Follow up with the patient. MMODL / IJN: [id number] /
[2020-08-21 20:02] LABS: Glucose,Whole Blood 105 mg/dL (75-99)
[2020-08-21] MEDS ORDERED: DOXEPIN 10 MG CAP PO SCH (21:00)
[2020-08-22] MEDS: NITROGLYCERIN OINT 1 INCH/GM PACKET TOPICAL SCH (03:13)
[2020-08-22] MEDS: LEVOTHYROXINE 100 MCG TAB PO SCH (05:04)
[2020-08-22] MEDS ORDERED: HEPARIN SODIUM,PORCINE 2,500 UNIT in SODIUM CHLORIDE 0.9% 250 ML IRRIGATION PRN (07:00)
[2020-08-22] MEDS ORDERED: HEPARIN SODIUM,PORCINE 10,000 UNIT in SODIUM CHLORIDE 0.9% 1,000 ML IRRIGATION PRN (07:00)
[2020-08-22 07:30] LABS: Glucose,Whole Blood 103 mg/dL (75-99)
--- NOTE | 2020-08-22 07:54 | P.DS ---
Providers Date of admission: 08/20/20 15:50 Attending physician: Jose F Mcwilliams Consults: 08/20/20 15:50 Consult Physician Urgent Consulting Provider: Karthik Vale Consult Reason/Comments: cp Do you want consulting provider notified?: Yes Primary care physician: Jose F Mcwilliams - Discharge Diagnosis(es) (1) Chest pain Current Visit: Yes Status: Acute (2) History of carotid endarterectomy Current Visit: No Status: Acute (3) Opiate dependence Current Visit: No Status: Acute (4) Tobacco abuse Current Visit: No Status: Acute (5) Unstable angina pectoris Current Visit: No Status: Acute Hospital Course: This discharge summary 60-year-old white female essentially admitted for angina. Underlying history of CAD in the past. Otherwise underlying history of opiate dependence with hypertension and hyperlipidemia after evaluation by cardiology patient ended up having cardiac catheterization which revealed no critical stenosis. The patient is discharged on medical management and to follow-up with me in one week. Patient Condition at Discharge: Good Plan - Discharge Summary Discharge Rx Participant: No New Discharge Prescriptions: New Metoprolol Succinate (ER) [Toprol XL] 25 mg PO DAILY #30 tab.er.24h Continue Escitalopram [Lexapro] 40 mg PO DAILY Gabapentin [Neurontin] 800 mg PO TID levETIRAcetam [Keppra] 1,500 mg PO BID Doxepin [SINEquan] 10 mg PO HS Budesonide-Formot 160-4.5 Mcg [Symbicort 160-4.5 Mcg Inhaler] 2 puff INHALATION RT-BID PRN PRN Reason: Shortness Of Breath Clopidogrel [Plavix] 75 mg PO DAILY Aspirin [Children's Aspirin] 81 mg PO DAILY Nitroglycerin Sl Tabs [Nitrostat] 0.4 mg SL Q5M PRN PRN Reason: Chest Pain Buprenorphine HCl/Naloxone HCl [Zubsolv 1.4-0.36 mg Tablet Sl] 1 tab PO DAILY Levothyroxine Sodium 200 mcg PO DAILY Atorvastatin [Lipitor] 80 mg PO DAILY cloNIDine HCL [Catapres] 0.2 mg PO BID Albuterol Nebulized [Ventolin Nebulized] 1.25 mg INHALATION RT-TID PRN PRN Reason: Shortness Of Breath Discharge Medication List Escitalopram [Lexapro] 40 mg PO DAILY 11/28/17 [History] Gabapentin [Neurontin] 800 mg PO TID 11/29/17 [History] levETIRAcetam [Keppra] 1,500 mg PO BID 07/18/18 [History] Doxepin [SINEquan] 10 mg PO HS 02/27/19 [History] Budesonide-Formot 160-4.5 Mcg [Symbicort 160-4.5 Mcg Inhaler] 2 puff INHALATION RT-BID PRN 04/24/19 [History] Clopidogrel [Plavix] 75 mg PO DAILY 09/11/19 [History] Aspirin [Children's Aspirin] 81 mg PO DAILY 09/25/19 [History] Albuterol Nebulized [Ventolin Nebulized] 1.25 mg INHALATION RT-TID PRN 08/20/20 [History] Atorvastatin [Lipitor] 80 mg PO DAILY 08/20/20 [History] Levothyroxine Sodium 200 mcg PO DAILY 08/20/20 [History] Nitroglycerin Sl Tabs [Nitrostat] 0.4 mg SL Q5M PRN 08/20/20 [History] cloNIDine HCL [Catapres] 0.2 mg PO BID 08/20/20 [History] Buprenorphine HCl/Naloxone HCl [Zubsolv 1.4-0.36 mg Tablet Sl] 1 tab PO DAILY 08/21/20 [History] Metoprolol Succinate (ER) [Toprol XL] 25 mg PO DAILY #30 tab.er.24h 08/22/20 [Rx] Follow up Appointment(s)/Referral(s): Jose F Mcwilliams MD [Primary Care Provider] - 1-2 days
[2020-08-22 08:21] VITALS: BP 107/71; PULSE 94; RESP 18; TEMP 98.4
[2020-08-22] MEDS: ESCITALOPRAM 20 MG TAB PO SCH (08:57)
[2020-08-22] MEDS: GABAPENTIN 400 MG CAP PO SCH (08:57)
[2020-08-22] MEDS: ASPIRIN 81 MG PO SCH (08:57)
[2020-08-22] MEDS: METOPROLOL SUCCINATE (ER) 25 MG TAB.ER.24H PO SCH (08:58)
[2020-08-22] MEDS: ATORVASTATIN 80 MG TAB PO SCH (08:58)
[2020-08-22] MEDS: CLOPIDOGREL 75 MG TAB PO SCH (08:58)
[2020-08-22] MEDS: cloNIDine HCL 0.2 MG TAB PO SCH (08:58)
== END 2020-08-22 09:36 | disposition home or self-care (01) ==
LOC: EC 14:29 → 6NMEDSUR 15:50
PROVIDERS: ADMIT Family Medicine; ATTEND Family Medicine
DX: R07.89 Other chest pain (principal); J44.9 Chronic obstructive pulmonary disease, unspecified; I25.110 Atherosclerotic heart disease of native coronary artery with unstable angina pectoris; I10 Essential (primary) hypertension; E78.5 Hyperlipidemia, unspecified; G40.909 Epilepsy, unspecified, not intractable, without status epilepticus; G62.9 Polyneuropathy, unspecified; F11.20 Opioid dependence, uncomplicated; F32.9 Major depressive disorder, single episode, unspecified; F17.200 Nicotine dependence, unspecified, uncomplicated; Z20.822 Contact with and (suspected) exposure to COVID-19; Z79.51 Long term (current) use of inhaled steroids; Z79.82 Long term (current) use of aspirin; Z79.02 Long term (current) use of antithrombotics/antiplatelets; Z79.890 Hormone replacement therapy; Z79.899 Other long term (current) drug therapy; Z88.6 Allergy status to analgesic agent; Z90.710 Acquired absence of both cervix and uterus; Z95.828 Presence of other vascular implants and grafts; Z95.5 Presence of coronary angioplasty implant and graft; Z98.890 Other specified postprocedural states; Z80.9 Family history of malignant neoplasm, unspecified
CPT/HCPCS: 96374; 99285; 36415; 93005 ×2; 93458; 85379; 83880; 80061; 80053; 83735; 84484; 85025; 85610; 85730; 87635; 71046; G0378 ×3; C1894; C1769 ×2; J2250; J2405; J2001; J3010; Q9967

== ENCOUNTER 2020-12-11 18:51 | Inpatient (IN) | payer MEDICARE ==
[2020-12-11] MEDS ORDERED: FAMOTIDINE 20 MG/2 ML VIAL IV STA (19:15)
[2020-12-11] MEDS ORDERED: cefTRIAXone IN SWFI 1,000 MG/10 ML SYRINGE IVP STA (19:16)
[2020-12-11] MEDS ORDERED: IPRATROPIUM-ALBUTEROL 3 ML NEB INHALATION STA (19:16)
[2020-12-11] MEDS ORDERED: SODIUM CHLORIDE 0.9% 1,000 ML IV STA (19:22)
[2020-12-11] MEDS ORDERED: SODIUM CHLORIDE 0.9% 500 ML 500 ML IV STA (19:22)
[2020-12-11 19:28] LABS: Basophils # (A) 0.1 k/uL (0-0.2); Basophils % (A) 1 %; Eosinophils # (A) 0.1 k/uL (0-0.7); Eosinophils % (A) 0 %; HCT 39.9 % (34.0-46.0); HGB 13.1 gm/dL (11.4-16.0); Lymphocytes % (A) 12 %; MCH 32.9 pg (25.0-35.0); MCHC 32.9 g/dL (31.0-37.0); MCV 100.1 fL (80.0-100.0); Macrocytosis Slight; Mean Platelet Volume 6.9; Monocytes # (A) 0.6 k/uL (0-1.0); Monocytes % (A) 4 %; Neutrophils # (A) 12.9 k/uL (1.3-7.7); Neutrophils % (A) 81 %; Platelet Count 358 k/uL (150-450); RBC 3.98 m/uL (3.80-5.40)
--- NOTE | 2020-12-11 19:34 | XR ---
EXAMINATION TYPE: XR chest 2V DATE OF EXAM: 12/11/2020 COMPARISON: Radiographs 08/20/2020 HISTORY: Coughing up mucus. TECHNIQUE: Frontal and lateral views of the chest are obtained. FINDINGS: Left subclavian stent. There is no focal air space opacity, pleural effusion, or pneumothorax seen. The cardiac silhouette size is within normal limits. The osseous structures are intact. IMPRESSION: No acute cardiopulmonary process.
--- NOTE | 2020-12-11 19:40 | ED ---
SOB HPI - General Chief Complaint: Shortness of Breath Stated Complaint: ROLAND Time Seen by Provider: 12/11/20 19:10 Source: patient, EMS Mode of arrival: EMS Limitations: no limitations - History of Present Illness Initial Comments: 60-year-old female with history of oxygen-dependent COPD on 3-4 L at home, presenting to the emergency department with a chief complaint of shortness of breath. Patient was brought to the ED via EMS and was given 125 mg of Solu- Medrol and 2 DuoNeb treatments. Patient is still tachypneic and tachycardic so her daughter is doing most of the talking. Daughter states the patient supposedly beginning to feel symptomatic 2 days ago with with increased exertional dyspnea but no chest pain. Patient reports she has developed a productive cough with yellow sputum production. Patient reports increased wheezing. She still a smoker. She denies abdominal pain nausea vomiting. She does report having chills for the past several days but denies any fevers at home. Denies any UTI symptoms. Denies any URI like symptoms. Denies any abdominal pain or back pain. Covid vaccinated. - Related Data Home Medications Medication Instructions Recorded Confirmed Escitalopram [Lexapro] 40 mg PO DAILY 11/28/17 12/11/20 Gabapentin [Neurontin] 800 mg PO TID 11/29/17 12/11/20 levETIRAcetam [Keppra] 500 mg PO DAILY 07/18/18 12/11/20 Doxepin [SINEquan] 10 mg PO HS 02/27/19 12/11/20 Budesonide-Formot 160-4.5 Mcg 2 puff INHALATION RT-BID PRN 04/24/19 12/11/20 [Symbicort 160-4.5 Mcg Inhaler] Clopidogrel [Plavix] 75 mg PO DAILY 09/11/19 12/11/20 Aspirin [Children's Aspirin] 81 mg PO DAILY 09/25/19 12/11/20 Albuterol Nebulized [Ventolin 1.25 mg INHALATION RT-TID PRN 08/20/20 12/11/20 Nebulized] Atorvastatin [Lipitor] 80 mg PO DAILY 08/20/20 12/11/20 Levothyroxine Sodium 200 mcg PO DAILY 08/20/20 12/11/20 Nitroglycerin Sl Tabs [Nitrostat] 0.4 mg SL Q5M PRN 08/20/20 12/11/20 cloNIDine HCL [Catapres] 0.2 mg PO BID 08/20/20 12/11/20 Buprenorphine HCl/Naloxone HCl 1 tab PO DAILY 08/21/20 12/11/20 [Zubsolv 1.4-0.36 mg Tablet Sl] levETIRAcetam [Keppra] 1,500 mg PO HS 12/11/20 12/11/20 Allergies Allergy/AdvReac Type Severity Reaction Status Date / Time ibuprofen [From Motrin] AdvReac Abdominal Verified 12/11/20 19:43 Pain Review of Systems ROS Statement: Those systems with pertinent positive or pertinent negative responses have been documented in the HPI. ROS Other: All systems not noted in ROS Statement are negative. Past Medical History Past Medical History: Asthma, Coronary Artery Disease (CAD), Chest Pain / Angina, COPD, Seizure Disorder, Thyroid Disorder Additional Past Medical History / Comment(s): SLIGHT COPD. 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 Leftt carotid blockage History of Any Multi-Drug Resistant Organisms: None Reported Past Surgical History: Heart Catheterization, Heart Catheterization With Stent, Hysterectomy, Orthopedic Surgery Additional Past Surgical History / Comment(s): RT ROTATOR CUFF REPAIR, CYSTS REMOVED FROM UNDER ARMS AND HANDS, 4 stents, 07/18/18 left subclavian stent. Past Anesthesia/Blood Transfusion Reactions: No Reported Reaction Date of Last Stent Placement:: Nov 2017 Past Psychological History: Depression Smoking Status: Current every day smoker Past Alcohol Use History: None Reported Past Drug Use History: None Reported - Past Family History Mother Family Medical History: Cancer Sister(s) Family Medical History: Cancer General Exam Limitations: no limitations General appearance: alert, in no apparent distress Head exam: Present: atraumatic, normocephalic, normal inspection Eye exam: Present: normal appearance, PERRL, EOMI Pupils: Present: normal accommodation ENT exam: Present: normal exam, normal oropharynx, mucous membranes moist, TM's normal bilaterally, normal external ear exam Neck exam: Present: normal inspection, full ROM. Absent: tenderness, lymphadenopathy Respiratory exam: Present: respiratory distress, wheezes (Diffuse bilateral wheezing), accessory muscle use, decreased breath sounds. Absent: chest wall tenderness Cardiovascular Exam: Present: regular rate, normal rhythm, normal heart sounds. Absent: systolic murmur Extremities exam: Present: normal inspection, full ROM. Absent: tenderness Back exam: Present: normal inspection, full ROM. Absent: tenderness Neurological exam: Present: alert, oriented X3 Psychiatric exam: Present: normal affect, normal mood Skin exam: Present: warm, dry, intact, normal color Course Vital Signs 12/11/20 12/11/20 12/11/20 18:52 19:46 19:56 Temperature 98.6 F Pulse Rate 118 H 105 H 104 H Respiratory 35 H Rate Blood Pressure 91/69 O2 Sat by Pulse 96 Oximetry 12/11/20 12/11/20 20:00 22:00 Temperature Pulse Rate 94 77 Respiratory 22 18 Rate Blood Pressure 106/69 115/63 O2 Sat by Pulse 93 L 94 L Oximetry Medical Decision Making - Medical Decision Making 60-year-old female with history of oxygen-dependent COPD on 3-4 L at home, presenting to the emergency department with a chief complaint of shortness of breath. On physical examination, patient is tachycardic and tachypneic. She has diffuse bilateral wheezing with retractions. Patient was given 2 DuoNeb treatments in the ambulance and Solu-Medrol. Patient was given Pepcid , a third DuoNeb treatment and 1 g Rocephin. Patient was slightly hypertensive was given 1.5 L of IV fluids based on ideal body weight. CBC revealed leukocytosis. Rest of the laboratory work is relatively unremarkable. Negative troponin and d- dimer. Coags are within normal limits. Chest x-ray is unremarkable. Patient likely sprinting a COPD exacerbation. I will provide atypical coverage with azithromycin considering she has a productive cough with yellow sputum production. I spoke to Dr. Mcwilliams who Wilber the patient for further medical management. Case discussed with Dr. Reveles. Pulmonary consult - Lab Data Result diagrams: 12/11/20 19:19 12/11/20 19:19 Lab Results 12/11/20 12/11/20 12/11/20 Range/Units 19:19 19:19 19:19 WBC 16.0 H (3.8-10.6) k/uL RBC 3.98 (3.80-5.40) m/uL Hgb 13.1 (11.4-16.0) gm/dL Hct 39.9 (34.0-46.0) % MCV 100.1 H (80.0-100.0) fL MCH 32.9 (25.0-35.0) pg MCHC 32.9 (31.0-37.0) g/dL RDW 15.0 (11.5-15.5) % Plt Count 358 (150-450) k/uL MPV 6.9 Neutrophils % 81 % Lymphocytes % 12 % Monocytes % 4 % Eosinophils % 0 % Basophils % 1 % Neutrophils # 12.9 H (1.3-7.7) k/uL Lymphocytes # 2.0 (1.0-4.8) k/uL Monocytes # 0.6 (0-1.0) k/uL Eosinophils # 0.1 (0-0.7) k/uL Basophils # 0.1 (0-0.2) k/uL Macrocytosis Slight PT 9.8 (9.0-12.0) sec INR 0.9 (<1.2) APTT 24.8 (22.0-30.0) sec D-Dimer 0.28 (<0.60) mg/L FEU Sodium 128 L (137-145) mmol/L Potassium 4.8 (3.5-5.1) mmol/L Chloride 95 L (98-107) mmol/L Carbon Dioxide 24 (22-30) mmol/L Anion Gap 9 mmol/L BUN 11 (7-17) mg/dL Creatinine 0.84 (0.52-1.04) mg/dL Est GFR (CKD-EPI)AfAm 87 (>60 ml/min/1.73 sqM) Est GFR (CKD-EPI)NonAf 75 (>60 ml/min/1.73 sqM) Glucose 125 H (74-99) mg/dL Plasma Lactic Acid Stepan (0.7-2.0) mmol/L Calcium 8.5 (8.4-10.2) mg/dL Magnesium 1.9 (1.6-2.3) mg/dL Total Bilirubin 0.4 (0.2-1.3) mg/dL AST 21 (14-36) U/L ALT 9 (4-34) U/L Alkaline Phosphatase 99 (38-126) U/L Troponin I (0.000-0.034) ng/mL Total Protein 7.2 (6.3-8.2) g/dL Albumin 4.1 (3.5-5.0) g/dL Coronavirus (PCR) (Not Detectd) 12/11/20 12/11/20 12/11/20 Range/Units 19:19 19:19 19:19 WBC (3.8-10.6) k/uL RBC (3.80-5.40) m/uL Hgb (11.4-16.0) gm/dL Hct (34.0-46.0) % MCV (80.0-100.0) fL MCH (25.0-35.0) pg MCHC (31.0-37.0) g/dL RDW (11.5-15.5) % Plt Count (150-450) k/uL MPV Neutrophils % % Lymphocytes % % Monocytes % % Eosinophils % % Basophils % % Neutrophils # (1.3-7.7) k/uL Lymphocytes # (1.0-4.8) k/uL Monocytes # (0-1.0) k/uL Eosinophils # (0-0.7) k/uL Basophils # (0-0.2) k/uL Macrocytosis PT (9.0-12.0) sec INR (<1.2) APTT (22.0-30.0) sec D-Dimer (<0.60) mg/L FEU Sodium (137-145) mmol/L Potassium (3.5-5.1) mmol/L Chloride (98-107) mmol/L Carbon Dioxide (22-30) mmol/L Anion Gap mmol/L BUN (7-17) mg/dL Creatinine (0.52-1.04) mg/dL Est GFR (CKD-EPI)AfAm (>60 ml/min/1.73 sqM) Est GFR (CKD-EPI)NonAf (>60 ml/min/1.73 sqM) Glucose (74-99) mg/dL Plasma Lactic Acid Stepan 1.1 (0.7-2.0) mmol/L Calcium (8.4-10.2) mg/dL Magnesium (1.6-2.3) mg/dL Total Bilirubin (0.2-1.3) mg/dL AST (14-36) U/L ALT (4-34) U/L Alkaline Phosphatase (38-126) U/L Troponin I 0.022 (0.000-0.034) ng/mL Total Protein (6.3-8.2) g/dL Albumin (3.5-5.0) g/dL Coronavirus (PCR) Not Detected (Not Detectd) - EKG Data EKG Comments: Sinus tachycardia next, trachea rate 115, GA 162, QRS 84, QTC 462. Disposition Clinical Impression: COPD exacerbation Disposition: ADMITTED IP TO THIS HOSP Condition: Good Is patient prescribed a controlled substance at d/c from ED?: No Referrals: Jose F Mcwilliams MD [Primary Care Provider] - 1-2 days Time of Disposition: 22:44
[2020-12-11 19:41] LABS: Albumin 4.1 g/dL (3.5-5.0); Calcium 8.5 mg/dL (8.4-10.2); Magnesium 1.9 mg/dL (1.6-2.3); Potassium 4.8 mmol/L (3.5-5.1); Total Bilirubin 0.4 mg/dL (0.2-1.3); Total Protein 7.2 g/dL (6.3-8.2)
[2020-12-11 19:57] LABS: INR 0.9 (<1.2); Partial Thromboplastin Time 24.8 sec (22.0-30.0); Prothrombin Time 9.8 sec (9.0-12.0)
[2020-12-11] MEDS ORDERED: AZITHROMYCIN 500 MG in SODIUM CHLORIDE 0.9% 250 ML IVPB STA (22:42)
[2020-12-11] MEDS: IPRATROPIUM-ALBUTEROL 3 ML NEB INHALATION PRN (23:47)
[2020-12-12] MEDS ORDERED: NITROGLYCERIN SL TABS 0.4 MG TAB SUBLINGUAL PRN (01:13)
[2020-12-12] MEDS ORDERED: SYMBICORT 160-4.5 MCG INHALER INHALATION PRN (01:13)
[2020-12-12] MEDS: IPRATROPIUM-ALBUTEROL 3 ML NEB INHALATION PRN ×2 (04:33→08:32)
[2020-12-12] MEDS: LEVOTHYROXINE 100 MCG TAB PO SCH (05:38)
[2020-12-12] MEDS: ESCITALOPRAM 20 MG TAB PO SCH (07:23)
[2020-12-12] MEDS: levETIRAcetam 500 MG TAB PO SCH (07:23)
[2020-12-12] MEDS: CLOPIDOGREL 75 MG TAB PO SCH (07:23)
[2020-12-12] MEDS: cloNIDine HCL 0.2 MG TAB PO SCH ×2 (07:23→19:59)
[2020-12-12] MEDS: GABAPENTIN 400 MG CAP PO SCH ×3 (07:23→19:58)
[2020-12-12] MEDS: ATORVASTATIN 80 MG TAB PO SCH (07:23)
[2020-12-12] MEDS: ASPIRIN 81 MG PO SCH (07:23)
[2020-12-12] MEDS ORDERED: methylPREDNISolone SOD SUCCI 125 MG/2 ML VIAL IV SCH (09:00)
--- NOTE | 2020-12-12 09:00 | P.HPIM ---
History of Present Illness H&P Date: 12/12/20 Chief Complaint: Worsening COPD with shortness of breath. This is a history of physical 60-year-old white female with known history of opiate dependence with Suboxone. The patient has an underlying history of COPD and is now essentially admitted for exacerbation. The patient is not oxygen dependent at home. Tobacco cessation was again discussed. No nausea or vomiting. No anginal pain. No voiding difficulties. Home inhalers were not as effective as anticipated. She was brought into the emergency room and started with appropriate treatment. Review of Systems Constitutional: Denies chills, Denies fever Eyes: denies blurred vision, denies pain Ears, nose, mouth and throat: Denies headache, Denies sore throat Cardiovascular: Denies chest pain, Denies shortness of breath Respiratory: Reports as per HPI, Reports congestion Gastrointestinal: Reports as per HPI Genitourinary: Denies dysuria, Denies hematuria Musculoskeletal: Denies myalgias Past Medical History Past Medical History: Asthma, Coronary Artery Disease (CAD), Chest Pain / Angina, COPD, Seizure Disorder, Thyroid Disorder Additional Past Medical History / Comment(s): SLIGHT COPD. 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 Leftt carotid blockage History of Any Multi-Drug Resistant Organisms: None Reported Past Surgical History: Heart Catheterization, Heart Catheterization With Stent, Hysterectomy, Orthopedic Surgery Additional Past Surgical History / Comment(s): RT ROTATOR CUFF REPAIR, CYSTS REMOVED FROM UNDER ARMS AND HANDS, 4 stents, 07/18/18 left subclavian stent. Past Anesthesia/Blood Transfusion Reactions: No Reported Reaction Date of Last Stent Placement:: Nov 2017 Past Psychological History: Depression Smoking Status: Current every day smoker Past Alcohol Use History: None Reported Additional Past Alcohol Use History / Comment(s): SMOKES 4 cig/day SINCE AGE 11. Past Drug Use History: None Reported - Past Family History Mother Family Medical History: Cancer Sister(s) Family Medical History: Cancer Medications and Allergies Home Medications Medication Instructions Recorded Confirmed Type Escitalopram [Lexapro] 40 mg PO DAILY 11/28/17 12/11/20 History Gabapentin [Neurontin] 800 mg PO TID 11/29/17 12/11/20 History levETIRAcetam [Keppra] 500 mg PO DAILY 07/18/18 12/11/20 History Doxepin [SINEquan] 10 mg PO HS 02/27/19 12/11/20 History Budesonide-Formot 160-4.5 Mcg 2 puff INHALATION RT-BID PRN 04/24/19 12/11/20 History [Symbicort 160-4.5 Mcg Inhaler] Clopidogrel [Plavix] 75 mg PO DAILY 09/11/19 12/11/20 History Aspirin [Children's Aspirin] 81 mg PO DAILY 09/25/19 12/11/20 History Albuterol Nebulized [Ventolin 1.25 mg INHALATION RT-TID PRN 08/20/20 12/11/20 History Nebulized] Atorvastatin [Lipitor] 80 mg PO DAILY 08/20/20 12/11/20 History Levothyroxine Sodium 200 mcg PO DAILY 08/20/20 12/11/20 History Nitroglycerin Sl Tabs [Nitrostat] 0.4 mg SL Q5M PRN 08/20/20 12/11/20 History cloNIDine HCL [Catapres] 0.2 mg PO BID 08/20/20 12/11/20 History Buprenorphine HCl/Naloxone HCl 1 tab PO DAILY 08/21/20 12/11/20 History [Zubsolv 1.4-0.36 mg Tablet Sl] levETIRAcetam [Keppra] 1,500 mg PO HS 12/11/20 12/11/20 History Allergies Allergy/AdvReac Type Severity Reaction Status Date / Time ibuprofen [From Motrin] AdvReac Abdominal Verified 12/11/20 19:43 Pain Physical Exam Vitals: Vital Signs Temp Pulse Pulse Resp BP BP Pulse Ox 12/12/20 08:52 100 12/12/20 08:33 96 12/12/20 07:33 98 F 105 H 20 125/64 91 L 12/12/20 04:43 108 H 12/12/20 04:33 104 H 12/12/20 02:00 97.6 F 112 H 111/64 95 12/12/20 00:50 106 H 93/56 12/12/20 00:44 98.5 F 119 H 22 98/59 95 12/12/20 00:06 78 18 122/63 97 12/12/20 00:00 118 H 12/11/20 23:57 108 H 12/11/20 23:47 110 H 12/11/20 22:00 77 18 115/63 94 L 12/11/20 20:00 94 22 106/69 93 L 12/11/20 19:56 104 H 12/11/20 19:46 105 H 12/11/20 18:52 98.6 F 118 H 35 H 91/69 96 Intake and Output 12/11/20 12/12/20 12/12/20 22:59 06:59 14:59 Intake Total 1100 Balance 1100 Intake: Intake, IV Titration 500 Amount Azithromycin 500 mg In 500 Sodium Chloride 0.9% 250 ml @ 250 mls/hr IVPB ONCE STA Rx#:[id number] Oral 600 Other: Voiding Method Bedside Commode Weight 83.915 kg 83.915 kg - Constitutional General appearance: mild distress - EENT Eyes: EOMI - Neck Neck: no lymphadenopathy - Respiratory Respiratory: bilateral: wheezing - Cardiovascular Rhythm: regular Heart sounds: normal: S1, S2 Abnormal Heart Sounds: no S3 Gallop - Gastrointestinal General gastrointestinal: soft, no tenderness - Integumentary Integumentary: no cyanotic - Musculoskeletal Musculoskeletal: strength equal bilaterally - Psychiatric Psychiatric: A&O x's 3, appropriate affect Results CBC & Chem 7: 12/11/20 19:19 12/11/20 19:19 Labs: Abnormal Lab Results - Last 24 Hours (Table) 12/11/20 12/11/20 Range/Units 19:19 19:19 WBC 16.0 H (3.8-10.6) k/uL MCV 100.1 H (80.0-100.0) fL Neutrophils # 12.9 H (1.3-7.7) k/uL Sodium 128 L (137-145) mmol/L Chloride 95 L (98-107) mmol/L Glucose 125 H (74-99) mg/dL Thrombosis Risk Factor Assmnt - Choose All That Apply Any of the Below Risk Factors Present?: Yes Each Factor Represents 1 point: Abnormal pulmonary function (COPD) Other Risk Factors: Yes Each Risk Factor Represents 2 Points: Age 61-74 years Thrombosis Risk Factor Assessment Total Risk Factor Score: 3 Thrombosis Risk Factor Assessment Level: Moderate Risk Assessment and Plan (1) COPD exacerbation Current Visit: Yes Status: Acute Code(s): J44.1 - CHRONIC OBSTRUCTIVE PULMONARY DISEASE W (ACUTE) EXACERBATION SNOMED Code(s): 724071276 (2) CAD (coronary artery disease) Current Visit: No Status: Acute Code(s): I25.10 - ATHSCL HEART DISEASE OF [place] CORONARY ARTERY W/O ANG PCTRS SNOMED Code(s): 83019768 (3) Chronic bronchitis with COPD (chronic obstructive pulmonary disease) Current Visit: No Status: Acute Code(s): J44.9 - CHRONIC OBSTRUCTIVE PULMONARY DISEASE, UNSPECIFIED SNOMED Code(s): 937009196 (4) History of carotid endarterectomy Current Visit: No Status: Acute Code(s): Z98.890 - OTHER SPECIFIED POSTPROCEDURAL STATES SNOMED Code(s): 305547159 (5) Opiate dependence Current Visit: No Status: Acute Code(s): F11.20 - OPIOID DEPENDENCE, UNCOMPLICATED SNOMED Code(s): 73094172 (6) Tobacco abuse Current Visit: No Status: Acute Code(s): Z72.0 - TOBACCO USE SNOMED Code(s): 475837825 (7) Wheezing Current Visit: No Status: Acute Code(s): R06.2 - WHEEZING SNOMED Code(s): 10802358 Plan: Appropriate COPD protocol with empiric antibiotics. Add Solu-Medrol. Reconcile medications. The patient is a full code. Dr. Gibson's group will be covering for the weekend. I anticipate that she most likely will be here for the weekend given her clinical presentation.
[2020-12-12] MEDS ORDERED: IPRATROPIUM-ALBUTEROL 3 ML NEB INHALATION PRN (09:28)
--- NOTE | 2020-12-12 11:56 | P.CNPUL ---
History of Present Illness Consult date: 12/12/20 Requesting physician: Jose F Mcwilliams Reason for consult: dyspnea, cough, COPD, hypoxemia Chief complaint: Shortness of breath. History of present illness: Pulmonary/critical care consultation dated 12/12/2020. 60-year-old female, who looks much older than her stated age, who has oxygen- dependent COPD, at 3-4 L on a regular basis at home, is seen in the emergency room on December 11, his complaints of increasing shortness of breath. She hasn't been feeling well for about one week. She did not see her primary care physician. Complaints of shortness of breath, chest tightness, cough, wheezing, and phlegm production. The patient does continue to smoke cigarettes although she states that she has recently cut back. She apparently does not see a lung doctor. She's not a particularly good historian and can't really tell me what medications she is on at home. She's been smoking since the age of about 11 or 12. As mentioned, she continues to smoke. She has a history of deep, CAD, sol st pain, seizure disorder, and hypothyroidism. She also has a history of left carotid blockage, and a previous history of heart catheterization with stent placement. Again, she does continue to smoke. White count 16, hemoglobin 13.1, hematocrit 39.9, and platelet count 350,000. PT, INR, PTT, and d-dimer are all normal. Sodium 128, potassium 4.8, chlorides 95, CO2 24, anion gap 9, BUN 11, creatinine 0.84. Testing for coronavirus was negative. Chest x-ray showed changes of COPD, but nothing acute. Review of Systems REVIEW OF SYSTEMS: CONSTITUTIONAL: [Negative.] NEUROLOGIC: [ Negative.] HEENT: [ Negative.] CARDIAC: [Negative.] PULMONARY: Shortness of breath, wheezing, chest tightness, cough, minimal phlegm production, and chest congestion. GI: [Negative.] : [Negative.] RHEUMATOLOGIC: [ Negative.] IMMUNOLOGIC: [ Negative.] ENDOCRINE: [Negative. ] DERMATOLOGIC: [Negative.] Past Medical History Past Medical History: Asthma, Coronary Artery Disease (CAD), Chest Pain / Angina, COPD, Seizure Disorder, Thyroid Disorder Additional Past Medical History / Comment(s): SLIGHT COPD. 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 Leftt carotid blockage History of Any Multi-Drug Resistant Organisms: None Reported Past Surgical History: Heart Catheterization, Heart Catheterization With Stent, Hysterectomy, Orthopedic Surgery Additional Past Surgical History / Comment(s): RT ROTATOR CUFF REPAIR, CYSTS REM RAJANI FROM UNDER ARMS AND HANDS, 4 stents, 07/18/18 left subclavian stent. Past Anesthesia/Blood Transfusion Reactions: No Reported Reaction Date of Last Stent Placement:: Nov 2017 Past Psychological History: Depression Smoking Status: Current every day smoker Past Alcohol Use History: None Reported Additional Past Alcohol Use History / Comment(s): SMOKES 4 cig/day SINCE AGE 11. Past Drug Use History: None Reported - Past Family History Mother Family Medical History: Cancer Sister(s) Family Medical History: Cancer Medications and Allergies Home Medications Medication Instructions Recorded Confirmed Type Escitalopram [Lexapro] 40 mg PO DAILY 11/28/17 12/11/20 History Gabapentin [Neurontin] 800 mg PO TID 11/29/17 12/11/20 History levETIRAcetam [Keppra] 500 mg PO DAILY 07/18/18 12/11/20 History Doxepin [SINEquan] 10 mg PO HS 02/27/19 12/11/20 History Budesonide-Formot 160-4.5 Mcg 2 puff INHALATION RT-BID PRN 04/24/19 12/11/20 History [Symbicort 160-4.5 Mcg Inhaler] Clopidogrel [Plavix] 75 mg PO DAILY 09/11/19 12/11/20 History Aspirin [Children's Aspirin] 81 mg PO DAILY 09/25/19 12/11/20 History Albuterol Nebulized [Ventolin 1.25 mg INHALATION RT-TID PRN 08/20/20 12/11/20 History Nebulized] Atorvastatin [Lipitor] 80 mg PO DAILY 08/20/20 12/11/20 History Levothyroxine Sodium 200 mcg PO DAILY 08/20/20 12/11/20 History Nitroglycerin Sl Tabs [Nitrostat] 0.4 mg SL Q5M PRN 08/20/20 12/11/20 History cloNIDine HCL [Catapres] 0.2 mg PO BID 08/20/20 12/11/20 History Buprenorphine HCl/Naloxone HCl 1 tab PO DAILY 08/21/20 12/11/20 History [Zubsolv 1.4-0.36 mg Tablet Sl] levETIRAcetam [Keppra] 1,500 mg PO HS 12/11/20 12/11/20 History Allergies Allergy/AdvReac Type Severity Reaction Status Date / Time ibuprofen [From Motrin] AdvReac Abdominal Verified 12/11/20 19:43 Pain Physical Exam Osteopathic Statement: *. No significant issues noted on an osteopathic structural exam other than those noted in the History and Physical/Consult. Vitals: Vital Signs Temp Pulse Pulse Resp BP BP Pulse Ox 12/12/20 08:52 100 12/12/20 08:33 96 12/12/20 07:33 98 F 105 H 20 125/64 91 L 12/12/20 04:43 108 H 12/12/20 04:33 104 H 12/12/20 02:00 97.6 F 112 H 111/64 95 12/12/20 00:50 106 H 93/56 12/12/20 00:44 98.5 F 119 H 22 98/59 95 12/12/20 00:06 78 18 122/63 97 12/12/20 00:00 118 H 12/11/20 23:57 108 H 12/11/20 23:47 110 H 12/11/20 22:00 77 18 115/63 94 L 12/11/20 20:00 94 22 106/69 93 L 12/11/20 19:56 104 H 12/11/20 19:46 105 H 12/11/20 18:52 98.6 F 118 H 35 H 91/69 96 Intake and Output 12/11/20 12/12/20 12/12/20 22:59 06:59 14:59 Intake Total 1100 Balance 1100 Intake: Intake, IV Titration 500 Amount Azithromycin 500 mg In 500 Sodium Chloride 0.9% 250 ml @ 250 mls/hr IVPB ONCE STA Rx#:[id number] Oral 600 Other: Voiding Method Bedside Commode Bedside Commode Weight 83.915 kg 83.915 kg Mild respiratory distress, with some conversational dyspnea, but without use of accessory muscles. Oriented 3. Saturations are 91% on 5 L. HEENT examination is grossly unremarkable. Neck supple. Full range of motion. No adenopathy thyromegaly or neck vein distention. Cardiovascular examination reveals regular rhythm rate. S1-S2 normal. No S3 or S4. No discernible murmur noted. Heart sounds are very distant. Heart rate 100 bpm. Lungs reveal coarse inspiratory and expiratory rhonchi. There are some expiratory wheezes. Breath sounds are equal bilaterally but diminished throughout. No crackles appreciated. Abdomen soft bowel sounds are heard. No masses or tenderness. Extremities are intact. No cyanosis clubbing or edema. Skin is without rash or lesion. Neurologic examination is brief but nonfocal. Results - Laboratory Findings CBC and BMP: 12/11/20 19:19 12/11/20 19:19 PT/INR, D-dimer PT 9.8 sec (9.0-12.0) 12/11/20 19:19 INR 0.9 (<1.2) 12/11/20 19:19 D-Dimer 0.28 mg/L FEU (<0.60) 12/11/20 19:19 Abnormal lab findings: Abnormal Labs 12/11/20 12/11/20 12/12/20 19:19 19:19 09:08 WBC 16.0 H MCV 100.1 H Neutrophils # 12.9 H Sodium 128 L Chloride 95 L Glucose 125 H Plasma Lactic Acid Stepan 2.9 H* - Diagnostic Findings Chest x-ray: image reviewed Assessment and Plan Assessment: Acute exacerbation of COPD. Ongoing tobacco use with nicotine addiction. History of CAD with previous stent placement. History of angina pectoris. History of seizure disorder. History of hypothyroidism. History of hyperlipidemia. Left carotid artery stenosis. Plan: Plan dated 12/12/2020. The patient was placed on usual doses of albuterol sulfate and ipratropium brom toni. In addition, the patient was given Solu-Medrol 60 mg every 6 hours, as well as Pulmicort, 1 mg twice a day, mixed with formoterol, 20 g twice a day. The patient is advised to stop smoking. The patient also gets Tessalon Perles, and Mucinex. No additional recommendations are made. We do add some Augmentin 875 twice a day. We will continue to follow make recommendations where appropriate. Prognosis is guarded. Time with Patient: Greater than 30
[2020-12-12] MEDS: IPRATROPIUM-ALBUTEROL 3 ML NEB INHALATION SCH ×3 (12:28→20:01)
[2020-12-12] MEDS: methylPREDNISolone SOD SUCCI 125 MG/2 ML VIAL IV SCH ×3 (13:20→23:26)
[2020-12-12] MEDS: SODIUM CHLORIDE 0.9% 1,000 ML IV SCH (16:17)
[2020-12-12] MEDS: BENZONATATE 100 MG CAP PO SCH ×2 (18:10→19:58)
[2020-12-12] MEDS: DOXEPIN 10 MG CAP PO SCH (19:57)
[2020-12-12] MEDS: guaiFENesin 600 MG TABLET.ER PO SCH (19:59)
[2020-12-12] MEDS: FORMOTEROL FUMARATE 20 MCG/2 ML NEBU INHALATION SCH (20:01)
[2020-12-12] MEDS: BUDESONIDE 1 MG/2 ML NEBU INHALATION SCH (20:01)
[2020-12-12] MEDS: AMOXIC-POT CLAV 875-125MG 1 EACH TAB PO SCH (20:16)
[2020-12-13] MEDS: SODIUM CHLORIDE 0.9% 1,000 ML IV SCH ×2 (04:58→05:39)
[2020-12-13] MEDS: LEVOTHYROXINE 100 MCG TAB PO SCH (05:39)
[2020-12-13] MEDS: methylPREDNISolone SOD SUCCI 125 MG/2 ML VIAL IV SCH ×4 (05:40→23:44)
[2020-12-13] MEDS: GABAPENTIN 400 MG CAP PO SCH ×3 (07:44→20:08)
[2020-12-13] MEDS: cloNIDine HCL 0.2 MG TAB PO SCH ×2 (07:45→20:08)
[2020-12-13] MEDS: BENZONATATE 100 MG CAP PO SCH ×3 (07:45→20:08)
[2020-12-13] MEDS: CLOPIDOGREL 75 MG TAB PO SCH (07:45)
[2020-12-13] MEDS: guaiFENesin 600 MG TABLET.ER PO SCH ×2 (07:45→20:08)
[2020-12-13] MEDS: AMOXIC-POT CLAV 875-125MG 1 EACH TAB PO SCH ×2 (07:45→20:08)
[2020-12-13] MEDS: ASPIRIN 81 MG PO SCH (07:45)
[2020-12-13] MEDS: ATORVASTATIN 80 MG TAB PO SCH (07:45)
[2020-12-13] MEDS: ESCITALOPRAM 20 MG TAB PO SCH (07:45)
[2020-12-13] MEDS: levETIRAcetam 500 MG TAB PO SCH (07:48)
[2020-12-13] MEDS: BUDESONIDE 1 MG/2 ML NEBU INHALATION SCH ×2 (09:01→21:04)
[2020-12-13] MEDS: IPRATROPIUM-ALBUTEROL 3 ML NEB INHALATION SCH ×4 (09:01→21:04)
[2020-12-13] MEDS: FORMOTEROL FUMARATE 20 MCG/2 ML NEBU INHALATION SCH ×2 (09:02→21:04)
[2020-12-13 09:26] LABS: HGB 12.7 g/dL (12.0-15.0); MCH 31.6 pg (27.0-32.0); Mean Platelet Volume 8.9 fL (9.5-12.2); Platelet Count 360 X 10*3/uL (140-440); RBC 4.02 X 10*6/uL (4.10-5.20); RDW 14.6 % (11.5-14.5)
--- NOTE | 2020-12-13 14:26 | P.PN ---
Subjective Progress Note Date: 12/13/20 Principal diagnosis: COPD exacerbation. Pulmonary/critical care consultation dated 12/12/2020. 60-year-old female, who looks much older than her stated age, who has oxygen-dependent COPD, at 3-4 L on a regular basis at home, is seen in the emergency room on December 11, his complaints of increasing shortness of breath. She hasn't been feeling well for about one week. She did not see her primary care physician. Complaints of shortness of breath, chest tightness, cough, wheezing, and phlegm production. The patient does continue to smoke cigarettes although she states that she has recently cut back. She apparently does not see a lung doctor. She's not a particularly good historian and can't really tell me what medications she is on at home. She's been smoking since the age of about 11 or 12. As mentioned, she continues to smoke. She has a history of deep, CAD, chest pain, seizure disorder, and hypothyroidism. She also has a history of left carotid blockage, and a previous history of heart catheterization with stent placement. Again, she does continue to smoke. White count 16, hemoglobin 13.1, hematocrit 39.9, and platelet count 350,000. PT, INR, PTT, and d-dimer are all normal. Sodium 128, potassium 4.8, chlorides 95, CO2 24, anion gap 9, BUN 11, creatinine 0.84. Testing for coronavirus was negative. Chest x-ray showed changes of COPD, but nothing acute. Progress note dated 12/13/2020. 60-year-old female seen in consultation yesterday. She has a history of oxygen- dependent COPD. She uses oxygen at home at 34 L/m, 11/10. She presented to the emergency department on December 11, with complaints of increasing shortness of breath, her week or so. It addition, she has chest tightness, coughing, wheezing, and phlegm production. White count 16.9, hemoglobin is 12.7, hematocrit 41, and platelet count 360,000. Her plasma lactic acid was 1.6. Chest x-ray on December 11 was reviewed. We've also adjusted all of her medications. The patient is feeling better, but is still quite bronchospastic. In my opinion, not quite ready for discharge as yet. Objective - Vital Signs Vital signs: Vital Signs Temp 96.9 F L 12/13/20 07:58 Pulse 104 H 12/13/20 13:45 Resp 17 12/13/20 07:58 BP 140/71 12/13/20 07:58 Pulse Ox 92 L 12/13/20 07:58 Intake & Output 12/12/20 12/13/20 12/13/20 18:59 06:59 18:59 Other: Voiding Method Bedside Commode Bedside Commode # Voids 4 1 # Bowel Movements 0 - Exam Mild respiratory distress, with some conversational dyspnea, but without use of accessory muscles. Oriented 3. Saturations are 93% on 5 L. HEENT examination is grossly unremarkable. Neck supple. Full range of motion. No adenopathy thyromegaly or neck vein distention. Cardiovascular examination reveals regular rhythm rate. S1-S2 normal. No S3 or S4. No discernible murmur noted. Heart sounds are very distant. Heart rate 104 bpm. Lungs reveal coarse inspiratory and expiratory rhonchi. There are some expiratory wheezes. Breath sounds are equal bilaterally but diminished throughout. No crackles appreciated. Breath sounds are minimally improved. Abdomen soft bowel sounds are heard. No masses or tenderness. Extremities are intact. No cyanosis clubbing or edema. Skin is without rash or lesion. Neurologic examination is brief but nonfocal. - Labs CBC & Chem 7: 12/13/20 05:54 12/11/20 19:19 Labs: Abnormal Lab Results - Last 24 Hours (Table) 12/13/20 Range/Units 05:54 WBC 16.90 H (4.50-10.00) X 10*3/uL RBC 4.02 L (4.10-5.20) X 10*6/uL MCV 102.0 H (80.0-97.0) fL MCHC 31.0 L (32.0-37.0) g/dL RDW 14.6 H (11.5-14.5) % MPV 8.9 L (9.5-12.2) fL Absolute Nucleated RBC 0.02 H (0.00-0.00) X 10*3/uL NRBC/100 WBC Diff 0.1 H (0.0-0.0) /100 WBCS Microbiology - Last 24 Hours (Table) 12/11/20 19:19 Blood Culture - Preliminary Blood No Growth after 24 hours 12/11/20 19:19 Blood Culture - Preliminary Blood No Growth after 24 hours Assessment and Plan Assessment: Acute exacerbation of COPD. Ongoing tobacco use with nicotine addiction. History of CAD with previous stent placement. History of angina pectoris. History of seizure disorder. History of hypothyroidism. History of hyperlipidemia. Left carotid artery stenosis. Plan: Plan dated 12/12/2020. The patient was placed on usual doses of albuterol sulfate and ipratropium bromide. In addition, the patient was given Solu-Medrol 60 mg every 6 hours, as well as Pulmicort, 1 mg twice a day, mixed with formoterol, 20 g twice a day. The patient is advised to stop smoking. The patient also gets Tessalon Perles, and Mucinex. No additional recommendations are made. We do add some Augmentin 875 twice a day. We will continue to follow make recommendations where appropriate. Prognosis is guarded. Plan dated 12/13/2020. The patient remains on Augmentin, Tessalon Perles, Pulmicort, formoterol, DuoNeb, Mucinex, and Solu-Medrol. Clinically, she is improved, but not quite ready for discharge as yet. We encourage patient to stop smoking. The patient should follow-up with her primary care physician post discharge. She should also see one of us after discharge. She should have a complete pulmonary function test, and a 6 minute walk distance. Time with Patient: Less than 30
[2020-12-13 15:56] LABS: African American GFR (CKD) 92.2 (60.0-200.0); Albumin 4.7 g/dL (3.80-4.90); Albumin/Globulin Ratio 1.88 (1.60-3.17); Anion Gap 10.4 mmol/L (4.00-12.00); BUN/Creat Ratio 17.5 Ratio (12.00-20.00); Carbon Dioxide 23.6 mmol/L (21.6-31.8); Globulin 2.5 g/dL (1.6-3.3); Non-African American GFR(CKD) 79.6 (60.0-200.0); Potassium 4.7 mmol/L (3.5-5.5); Total Bilirubin 0.1 mg/dL (0.3-1.2); Total Protein 7.2 g/dL (6.2-8.2)
--- NOTE | 2020-12-13 19:18 | PN ---
PROGRESS NOTE DATE OF SERVICE: 12/13/2020 I am covering for Dr. Mcwilliams. This 60-year-old woman was admitted with COPD acute exacerbation, being closely monitored. No chest pain. No palpitations. No fever. PHYSICAL EXAMINATION: Alert and orient x2 pulse 116, blood pressure 96/75, respirations 17, temperature 98.7, pulse ox 98% on 5 L. HEENT: Conjunctivae normal. Oral mucosa moist. NECK: No jugular venous distention. No lymph node enlargement. CARDIOVASCULAR: S1, S2, muffled. No S3, no S4, RESPIRATORY: Diminished breath sounds at the bases. A few scattered rhonchi and crackles, respiratory wheezing. ABDOMEN: Soft. NERVOUS SYSTEM: No focal deficits. LABS: WBC 16. Other labs are noted. ASSESSMENT: 1. Chronic obstructive pulmonary disease acute exacerbation with acute purulent tracheobronchitis with acute hypoxic respiratory failure. 2. Hyponatremia. 3. Increased WBC. 4. Increased MCV. 5. Elevated plasma lactic acid. 6. History of asthma. 7. History of chest pain. 8. History of seizure disorder. 9. Hypothyroidism. 10.History of peripheral neuropathy. 11.History of CAD, stent. 12.History of depression. 13.Continued ongoing nicotine dependence. RECOMMENDATIONS AND DISCUSSION: In this 60-year-old woman who presented with multiple complex medical issues, we will continue the current management, continue the bronchodilators, continue with steroids, IV steroids. Closely follow with Pulmonary. Guarded prognosis because of multiple complex medical issues. Further recommendations to follow. See orders for details. MMODL / IJN: [id number] /
[2020-12-13] MEDS: DOXEPIN 10 MG CAP PO SCH (20:08)
[2020-12-13 21:11] LABS: ABG Base Excess 1.4 mmol/L; ABG HCO3 28 mmol/L (21-25); ABG PCO2 61 mmHg (35-45); ABG PH 7.27 (7.35-7.45); ABG PO2 68 mmHg (83-108); ABG TCO2 30 mmol/L (19-24); Allen Test Performed? Yes
[2020-12-14] MEDS: methylPREDNISolone SOD SUCCI 125 MG/2 ML VIAL IV SCH ×4 (05:37→23:26)
[2020-12-14] MEDS: LEVOTHYROXINE 100 MCG TAB PO SCH (05:37)
[2020-12-14] MEDS: SODIUM CHLORIDE 0.9% 1,000 ML IV SCH ×2 (05:38→17:08)
[2020-12-14] MEDS: guaiFENesin 600 MG TABLET.ER PO SCH ×2 (07:54→20:32)
[2020-12-14] MEDS: BENZONATATE 100 MG CAP PO SCH ×3 (07:55→20:32)
[2020-12-14] MEDS: ESCITALOPRAM 20 MG TAB PO SCH (07:55)
[2020-12-14] MEDS: ATORVASTATIN 80 MG TAB PO SCH (07:55)
[2020-12-14] MEDS: ASPIRIN 81 MG PO SCH (07:55)
[2020-12-14] MEDS: CLOPIDOGREL 75 MG TAB PO SCH (07:55)
[2020-12-14] MEDS: cloNIDine HCL 0.2 MG TAB PO SCH (07:55)
[2020-12-14] MEDS: FORMOTEROL FUMARATE 20 MCG/2 ML NEBU INHALATION SCH ×2 (08:01→19:06)
[2020-12-14] MEDS: IPRATROPIUM-ALBUTEROL 3 ML NEB INHALATION SCH ×4 (08:01→19:06)
[2020-12-14] MEDS: BUDESONIDE 1 MG/2 ML NEBU INHALATION SCH ×2 (08:01→19:06)
[2020-12-14] MEDS: AMOXIC-POT CLAV 875-125MG 1 EACH TAB PO SCH ×2 (08:05→20:32)
[2020-12-14] MEDS: levETIRAcetam 500 MG TAB PO SCH (08:06)
--- NOTE | 2020-12-14 13:27 | P.PN ---
Subjective Progress Note Date: 12/14/20 Principal diagnosis: COPD exacerbation. Pulmonary/critical care consultation dated 12/12/2020. 60-year-old female, who looks much older than her stated age, who has oxygen-dependent COPD, at 3-4 L on a regular basis at home, is seen in the emergency room on December 11, his complaints of increasing shortness of breath. She hasn't been feeling well for about one week. She did not see her primary care physician. Complaints of shortness of breath, chest tightness, cough, wheezing, and phlegm production. The patient does continue to smoke cigarettes although she states that she has recently cut back. She apparently does not see a lung doctor. She's not a particularly good historian and can't really tell me what medications she is on at home. She's been smoking since the age of about 11 or 12. As mentioned, she continues to smoke. She has a history of deep, CAD, chest pain, seizure disorder, and hypothyroidism. She also has a history of left carotid blockage, and a previous history of heart catheterization with stent placement. Again, she does continue to smoke. White count 16, hemoglobin 13.1, hematocrit 39.9, and platelet count 350,000. PT, INR, PTT, and d-dimer are all normal. Sodium 128, potassium 4.8, chlorides 95, CO2 24, anion gap 9, BUN 11, creatinine 0.84. Testing for coronavirus was negative. Chest x-ray showed changes of COPD, but nothing acute. Progress note dated 12/13/2020. 60-year-old female seen in consultation yesterday. She has a history of oxygen- dependent COPD. She uses oxygen at home at 34 L/m, 11/10. She presented to the emergency department on December 11, with complaints of increasing shortness of breath, her week or so. It addition, she has chest tightness, coughing, wheezing, and phlegm production. White count 16.9, hemoglobin is 12.7, hematocrit 41, and platelet count 360,000. Her plasma lactic acid was 1.6. Chest x-ray on December 11 was reviewed. We've also adjusted all of her medications. The patient is feeling better, but is still quite bronchospastic. In my opinion, not quite ready for discharge as yet. Progress note dated 12/14/2020. 60-year-old female, who looks much older than her stated age. The patient has a history of oxygen dependent COPD. She uses oxygen at home at between 3-4 L/m, 11/10/64. She presented to the emergency department on December 11 with increasing shortness of breath and wheezing with chest congestion tightness and cough. She's only minimally better. She is receiving full therapy. Her daughters in the room. She is counseled about the importance of smoking cessation. The patient had a blood gas done yesterday showing a pO2 of 68, a pCO2 of 61, and a pH is 7.27. Blood gases are consistent with acute on chronic hypercapnic respiratory failure. Objective - Vital Signs Vital signs: Vital Signs Temp 97.9 F 12/14/20 07:48 Pulse 112 H 12/14/20 11:06 Resp 16 12/14/20 07:48 BP 100/59 12/14/20 07:48 Pulse Ox 96 12/14/20 07:48 Intake & Output 12/13/20 12/14/20 12/14/20 18:59 06:59 18:59 Other: Voiding Method Bedside Commode # Voids 2 0 # Bowel Movements 0 - Exam Mild respiratory distress, with some conversational dyspnea, but without use of accessory muscles. Oriented 3. Saturations are 93% on 4 L. HEENT examination is grossly unremarkable. Neck supple. Full range of motion. No adenopathy thyromegaly or neck vein distention. Cardiovascular examination reveals regular rhythm rate. S1-S2 normal. No S3 or S4. No discernible murmur noted. Heart sounds are very distant. Heart rate 112 bpm. Lungs reveal coarse inspiratory and expiratory rhonchi. There are some expiratory wheezes. Breath sounds are equal bilaterally but diminished throughout. No crackles appreciated. Breath sounds are minimally improved. Cough is wet and congested sounding. Abdomen soft bowel sounds are heard. No masses or tenderness. Extremities are intact. No cyanosis clubbing or edema. Skin is without rash or lesion. Neurologic examination is brief but nonfocal. - Labs CBC & Chem 7: 12/13/20 05:54 12/13/20 05:54 Labs: Abnormal Lab Results - Last 24 Hours (Table) 12/13/20 12/13/20 Range/Units 05:54 21:09 ABG pH 7.27 L (7.35-7.45) ABG pCO2 61 H (35-45) mmHg ABG pO2 68 L (83-108) mmHg ABG HCO3 28 H (21-25) mmol/L ABG Total CO2 30 H (19-24) mmol/L Glucose 145 H (70-110) mg/dL Total Bilirubin 0.1 L (0.3-1.2) mg/dL Microbiology - Last 24 Hours (Table) 12/11/20 19:19 Blood Culture - Preliminary Blood No Growth after 48 hours 12/11/20 19:19 Blood Culture - Preliminary Blood No Growth after 48 hours Assessment and Plan Assessment: Acute exacerbation of COPD. Ongoing tobacco use with nicotine addiction. History of CAD with previous stent placement. History of angina pectoris. Obesity. History of seizure disorder. History of hypothyroidism. History of hyperlipidemia. Left carotid artery stenosis. Plan: Plan dated 12/12/2020. The patient was placed on usual doses of albuterol sulfate and ipratropium bromide. In addition, the patient was given Solu-Medrol 60 mg every 6 hours, as well as Pulmicort, 1 mg twice a day, mixed with formoterol, 20 g twice a day. The patient is advised to stop smoking. The patient also gets Tessalon Perles, and Mucinex. No additional recommendations are made. We do add some Augmentin 875 twice a day. We will continue to follow make recommendations where appropriate. Prognosis is guarded. Plan dated 12/13/2020. The patient remains on Augmentin, Tessalon Perles, Pulmicort, formoterol, DuoNeb, Mucinex, and Solu-Medrol. Clinically, she is improved, but not quite ready for discharge as yet. We encourage patient to stop smoking. The patient should follow-up with her primary care physician post discharge. She should also see one of us after discharge. She should have a complete pulmonary function test, and a 6 minute walk distance. Plan dated 12/14/2020. The patient remains on appropriate medications including Augmentin, Tessalon Perles, Pulmicort, formoterol, albuterol sulfate, ipratropium bromide, Mucinex, and Solu-Medrol. The patient is a bit improved. Still quite bronchospastic. Not yet ready for discharge. The patient is counseled about the importance of smoking cessation. Her daughter is in the room at the time of my visit today. The patient will need an outpatient 6 minute walk distance and complete pulmonary function test. Additional recommendations and suggestions are forthcoming. We will continue to follow make recommendations where appropriate. Time with Patient: Less than 30
[2020-12-14] MEDS ORDERED: SODIUM CHLORIDE 0.9% 500 ML 500 ML IV ONE (14:26)
--- NOTE | 2020-12-14 17:25 | PN ---
PROGRESS NOTE I am covering for Dr. Mcwilliams. DATE OF SERVICE: 12/14/2020. This 60-year-old woman who was admitted with significant COPD, acute exacerbation, and hypercarbia also had mild confusion. The patient also was found to be hypotensive at 70 systolic. The patient is receiving clonidine at 0.2 twice daily. The patient is on bronchodilators and high-dose IV steroids. Dr. Castillo is following the patient closely. Past medical history reviewed. REVIEW OF SYSTEMS: CARDIOVASCULAR SYSTEM: As mentioned earlier. RESPIRATION: As mentioned earlier. GI: No nausea, vomiting. : No dysuria. NERVOUS SYSTEM: No numbness, weakness. CURRENT MEDICATIONS: Reviewed. They include DuoNeb, Augmentin, aspirin, Lipitor, Tessalon, Pulmicort, Plavix, senokot, Lexapro, Perforomist, Mucinex, Keppra, Synthroid, Nitrostat. PHYSICAL EXAMINATION: Patient is alert, oriented x3. The pulse is 116, blood pressure is 100/50, respirations 16, temperature 97 degrees, pulse ox 96% on 5 L. HEENT: Conjunctivae normal. NECK: No jugular venous distention. CARDIOVASCULAR: S1, S2 muffled. RESPIRATION: Breath sounds diminished at the bases. Bilateral scattered rhonchi and crackles. ABDOMEN: Soft, obese, non-tender. LEGS: No edema. No swelling. NERVOUS SYSTEM: No focal deficit. LABS: WBC 16.9, hemoglobin 12.7. ABGs noted. ASSESSMENT: 1. Chronic obstructive pulmonary disease, acute exacerbation, with acute purulent tracheobronchitis, acute hypoxic hypercarbic respiratory failure. 2. Hypotension, possibly secondary to medications. 3. Tachycardia. 4. Hyponatremia. 5. Increased white count. 6. Increased mean corpuscular volume. 7. Change in mental status, acute metabolic encephalopathy, multifactorial. 8. Elevated plasma lactic acid. 9. History of asthma. 10.History of chest pain. 11.History of seizure disorder. 12.Hypothyroidism. 13.History of peripheral neuropathy. 14.History of coronary artery disease, stent. 15.History of depression. 16.Continued ongoing nicotine dependence. RECOMMENDATIONS AND DISCUSSION: In this 60-year-old woman who presented with multiple complex medical issues, we will monitor the patient closely, continue the current medications. Will cut down the dose of Catapres to 0.1 daily and also give IV fluid boluses. Continue to monitor. Continue the rest of the medications. Also recommend blood cultures and also an EKG as well. If EKG shows atrial fibrillation, the patient may have to be transferred to telemetry floor. Prognosis is guarded. Discussed with the patient and family, who understand and agree. Further recommendations to follow. Dr. Mcwilliams will follow tomorrow. PILI / ELISHA: [id number] /
[2020-12-14] MEDS: DOXEPIN 10 MG CAP PO SCH (20:32)
[2020-12-15] MEDS: methylPREDNISolone SOD SUCCI 125 MG/2 ML VIAL IV SCH ×4 (06:08→23:57)
[2020-12-15] MEDS: LEVOTHYROXINE 100 MCG TAB PO SCH (06:09)
[2020-12-15] MEDS ORDERED: HYDROmorphone 0.5 MG/0.5 ML SYRINGE IVP PRN (07:24)
[2020-12-15] MEDS ORDERED: IOPAMIDOL CONTRAST (ORAL USE) VIAL PO PRN (08:27)
[2020-12-15] MEDS: IPRATROPIUM-ALBUTEROL 3 ML NEB INHALATION SCH ×4 (08:30→20:13)
[2020-12-15] MEDS: FORMOTEROL FUMARATE 20 MCG/2 ML NEBU INHALATION SCH ×2 (08:30→20:13)
[2020-12-15] MEDS: BUDESONIDE 1 MG/2 ML NEBU INHALATION SCH ×2 (08:30→20:13)
[2020-12-15] MEDS ORDERED: KETOROLAC 15 MG/ML 1 ML VIAL IVP PRN (08:34)
--- NOTE | 2020-12-15 08:39 | P.PN ---
Subjective Principal diagnosis: Left lower quadrant abdominal pain stated since yesterday. The patient states significant pain. Essentially brought in for COPD elements. No significant fever or chills. She had nominal bowel movement yesterday. Objective - Vital Signs Vital signs: Vital Signs Temp 98.0 F 12/15/20 08:00 Pulse 114 H 12/15/20 08:00 Resp 16 12/15/20 08:00 BP 108/69 12/15/20 08:00 Pulse Ox 98 12/15/20 08:00 Intake & Output 12/14/20 12/15/20 12/15/20 18:59 06:59 18:59 Other: # Voids 3 3 - Constitutional General appearance: Present: obese - EENT Eyes: Absent: abnormal pupil - Neck Neck: Absent: lymphadenopathy - Respiratory Respiratory: bilateral: CTA - Cardiovascular Rhythm: regular Heart sounds: normal: S1, S2 Abnormal Heart Sounds: Absent: S3 Gallop - Gastrointestinal General gastrointestinal: Present: soft. Absent: tenderness - Integumentary Integumentary: Absent: cellulitis - Labs CBC & Chem 7: 12/13/20 05:54 12/13/20 05:54 Labs: Microbiology - Last 24 Hours (Table) 12/11/20 19:19 Blood Culture - Preliminary Blood No Growth after 72 hours 12/11/20 19:19 Blood Culture - Preliminary Blood No Growth after 72 hours Assessment and Plan (1) COPD exacerbation Current Visit: Yes Status: Acute Code(s): J44.1 - CHRONIC OBSTRUCTIVE PULMONARY DISEASE W (ACUTE) EXACERBATION SNOMED Code(s): 439260485 (2) CAD (coronary artery disease) Current Visit: No Status: Acute Code(s): I25.10 - ATHSCL HEART DISEASE OF [place] CORONARY ARTERY W/O ANG PCTRS SNOMED Code(s): 61232631 (3) Chronic bronchitis with COPD (chronic obstructive pulmonary disease) Current Visit: No Status: Acute Code(s): J44.9 - CHRONIC OBSTRUCTIVE PULMONARY DISEASE, UNSPECIFIED SNOMED Code(s): 574411073 (4) History of carotid endarterectomy Current Visit: No Status: Acute Code(s): Z98.890 - OTHER SPECIFIED POSTPROCEDURAL STATES SNOMED Code(s): 289801490 (5) Opiate dependence Current Visit: No Status: Acute Code(s): F11.20 - OPIOID DEPENDENCE, UNCOMPLICATED SNOMED Code(s): 27513731 (6) Tobacco abuse Current Visit: No Status: Acute Code(s): Z72.0 - TOBACCO USE SNOMED Code(s): 900333445 (7) Wheezing Current Visit: No Status: Acute Code(s): R06.2 - WHEEZING SNOMED Code(s): 99778051 Plan: Appropriate COPD protocol with empiric antibiotics. Add Solu-Medrol. Due to her left lower quadrant pain. Go ahead and get CT with contrast today..
[2020-12-15] MEDS: levETIRAcetam 500 MG TAB PO SCH (09:02)
[2020-12-15] MEDS: guaiFENesin 600 MG TABLET.ER PO SCH ×2 (09:03→21:45)
[2020-12-15] MEDS: ASPIRIN 81 MG PO SCH (09:03)
[2020-12-15] MEDS: AMOXIC-POT CLAV 875-125MG 1 EACH TAB PO SCH ×2 (09:03→21:45)
[2020-12-15] MEDS: CLOPIDOGREL 75 MG TAB PO SCH (09:03)
[2020-12-15] MEDS: ATORVASTATIN 80 MG TAB PO SCH (09:03)
[2020-12-15] MEDS: BENZONATATE 100 MG CAP PO SCH ×3 (09:03→21:45)
[2020-12-15] MEDS: SODIUM CHLORIDE 0.9% 1,000 ML IV SCH ×2 (09:03→21:46)
[2020-12-15] MEDS: cloNIDine HCL 0.1 MG TAB PO SCH (09:03)
[2020-12-15] MEDS: ESCITALOPRAM 20 MG TAB PO SCH (09:03)
[2020-12-15] MEDS: IOPAMIDOL CONTRAST (ORAL USE) VIAL PO PRN ×2 (09:04→09:56)
[2020-12-15 11:42] LABS: Basophils # (A) 0.07 X 10*3/uL (0.00-0.10); Basophils % (A) 0.5 %; Eosinophils # (A) 0 X 10*3/uL (0.04-0.35); Eosinophils % (A) 0 %; HCT 38.2 % (37.2-46.3); HGB 12.2 g/dL (12.0-15.0); Lymphocytes # (A) 1.05 X 10*3/uL (0.90-5.00); Lymphocytes % (A) 6.9 %; MCH 33.3 pg (27.0-32.0); MCHC 31.9 g/dL (32.0-37.0); MCV 104.4 fL (80.0-97.0); Mean Platelet Volume 8.6 fL (9.5-12.2); Monocytes # (A) 0.57 X 10*3/uL (0.20-1.00); Monocytes % (A) 3.7 %; Neutrophils # (A) 12.97 X 10*3/uL (1.80-7.70); Platelet Count 357 X 10*3/uL (140-440); RBC 3.66 X 10*6/uL (4.10-5.20); RDW 14.7 % (11.5-14.5); WBC 15.25 X 10*3/uL (4.50-10.00)
--- NOTE | 2020-12-15 11:57 | CT ---
EXAMINATION TYPE: CT abdomen pelvis w con DATE OF EXAM: 12/15/2020 HISTORY: left lower quadrant pain CT DLP: 1670.8mGycm Automated Exposure Control for Dose Reduction was Utilized. CONTRAST: CT scan of the abdomen and pelvis is performed with oral and with IV Contrast, patient injected with 100 ml mL of Isovue 300. COMPARISON: None. FINDINGS: LUNG BASES: Coronary artery calcification in the RCA distribution. Mild to moderate bibasilar linear scarring and/or atelectasis LIVER/GB: There is 6 mm round low dense lesion left hepatic dome axial image 9 presumed benign. Moder ate extrahepatic biliary dilatation and mild central intrahepatic biliary dilatation up to 16 mm near tereso hepatis coronal image 53 with some tapering towards the duodenal ampulla. Gallbladder shows no intraluminal gallstones or surrounding inflammatory change. PANCREAS: No pancreatic ductal dilatation. SPLEEN: No significant abnormality is seen. ADRENALS: No significant abnormality is seen. KIDNEYS: No significant abnormality is seen. BOWEL: Oral contrast reaches level of hepatic flexure. No suspicious small or large bowel dilatation. Wandering cecum into the medial left lower quadrant axial image 53. Normal appearing appendix from p osterior aspect. UTERUS/ADNEXA: Uterus surgically absent. Scattered bilateral pelvic phleboliths LYMPH NODES: No greater than 1cm abdominal or pelvic lymph nodes are appreciated. OSSEOUS STRUCTURES: Moderate axial joint space loss in both hips. OTHER: Moderate to severe calcified plaque of the abdominal aorta extends into branch vessels. Zimmerman ing midline vertical scar. Mild Dependent subcutaneous edema posterior to the lumbar spine. There is rectus sheath hematoma axial image 65 measuring approximately 13 cm in length sagittal image 98 and measuring roughly 6 x 3 cm axial image 63. IMPRESSION: Acute moderate sized left rectus sheath hematoma as detailed above presumed accounting fo r patient's symptoms.
[2020-12-15] MEDS ORDERED: KETOROLAC 15 MG/ML 1 ML VIAL IVP SCH (12:00)
--- NOTE | 2020-12-15 13:08 | P.PN ---
Subjective Progress Note Date: 12/15/20 On today's evaluation, the patient is feeling less short of breath compared to yesterday. She states that her breathing is improved compared to yesterday. Nevertheless, I was told by the nursing staff that on and off she is confused and by the time I arrived to her room, the patient seemed to be much more with the program and she was able to tell me where she was in her condition that she was aware of. No chest pain. Her breathing is labored with limited amount of activity. Occasional cough. She underwent a CAT scan of the abdomen because of some vague abdominal pain and the patient was found to have an acute moderate- sized left rectus sheath hematoma there was measuring around 30 cm in size and the sagittal images. As far as the lung bases, there were essentially clear. There was coronary calcification. There was some mild to moderate bibasilar scarring/atelectasis involving the lung bases. She is somnolent and sleepy. Left unstimulated, she will easily go back to sleep. As such, there is a possibility of underlying CO2 narcosis. Blood gases from today's ago showed a pH of 7.27 with a pCO2 of 61 and pO2 of 68. Her most recent blood work shows a white cell count of 15.2 with a hemoglobin of 12.2. Serum bicarbonate has been nonelevated based on her blood work. Lactic acid level is down to 2. Objective - Vital Signs Vital signs: Vital Signs Temp 98.0 F 12/15/20 08:00 Pulse 88 12/15/20 12:07 Resp 16 12/15/20 08:00 BP 108/69 12/15/20 08:00 Pulse Ox 98 12/15/20 08:00 Intake & Output 12/14/20 12/15/20 12/15/20 18:59 06:59 18:59 Other: # Voids 3 3 - Exam Mild respiratory distress, with some conversational dyspnea, but without use of accessory muscles. Oriented 3. Saturations are 93% on 4 L. HEENT examination is grossly unremarkable. Neck supple. Full range of motion. No adenopathy thyromegaly or neck vein distention. Cardiovascular examination reveals regular rhythm rate. S1-S2 normal. No S3 or S4. No discernible murmur noted. Heart sounds are very distant. Lungs reveal coarse inspiratory and expiratory rhonchi. There are some expiratory wheezes. Breath sounds are equal bilaterally but diminished throughout. No crackles appreciated. Breath sounds are minimally improved. Cough is wet and congested sounding. Abdomen soft bowel sounds are heard. No masses or tenderness. Extremities are intact. No cyanosis clubbing or edema. Skin is without rash or lesion. Neurologic examination is brief but nonfocal. - Labs CBC & Chem 7: 12/15/20 07:03 12/13/20 05:54 Labs: Abnormal Lab Results - Last 24 Hours (Table) 12/15/20 Range/Units 07:03 WBC 15.25 H (4.50-10.00) X 10*3/uL RBC 3.66 L (4.10-5.20) X 10*6/uL MCV 104.4 H (80.0-97.0) fL MCH 33.3 H (27.0-32.0) pg MCHC 31.9 L (32.0-37.0) g/dL RDW 14.7 H (11.5-14.5) % MPV 8.6 L (9.5-12.2) fL Immature Gran # 0.59 H (0.00-0.04) X 10*3/uL Neutrophils # 12.97 H (1.80-7.70) X 10*3/uL Eosinophils # 0 L (0.04-0.35) X 10*3/uL Microbiology - Last 24 Hours (Table) 12/11/20 19:19 Blood Culture - Preliminary Blood No Growth after 72 hours 12/11/20 19:19 Blood Culture - Preliminary Blood No Growth after 72 hours Assessment and Plan Plan: 1 Acute exacerbation of COPD.patient had significant respiratory acidosis on her blood gases from few days back. There may be a ongoing component of CO2 narcosis. As such, within 24 hours or 48 hours of treatment, I think it's reaso nable to repeat a blood gas to evaluate her condition. She is on bronchodilators and steroids and she is on Augmentin. She claims is her breathing is somewhat improved. There review component of CO2 narcosis. 2 Ongoing tobacco use with nicotine addiction. 3 History of CAD with previous stent placement. 4 History of angina pectoris. 5 Obesity. 6 History of seizure disorder. 7 History of hypothyroidism. 8 History of hyperlipidemia. 9 Left carotid artery stenosis. Plan Repeat blood gases on 4 L of oxygen by nasal cannula Continue bronchodilators Continue steroids Oxygen at 4 L Titrate FiO2 to maintain a saturation above 90% Rest of the medications will be kept unchanged as the patient is currently on IV Solu-Medrol, oral Augmentin, Mucinex for cough, or seizures, and I'm going to add heparin subcu for DVT prophylaxis.
[2020-12-15 14:10] LABS: ABG HCO3 34 mmol/L (21-25); ABG Oxygen Saturation 92.2 % (94-97); ABG PCO2 58 mmHg (35-45); ABG PH 7.38 (7.35-7.45); ABG PO2 60 mmHg (83-108); ABG TCO2 36 mmol/L (19-24); Allen Test Performed? Yes
--- NOTE | 2020-12-15 15:50 | P.GSCN ---
History of Present Illness Consult date: 12/15/20 Reason for Consult: rectus sheath hematoma History of present illness: CHIEF COMPLAINT: COPD, shortness of breath HISTORY OF PRESENT ILLNESS: 60-year-old female who presented to the emergency department with complaints of shortness of breath and cough. She has a past medical history of opiate dependence on Suboxone, COPD oxygen dependent, coronary artery disease status post stent, seizure disorder, thyroid disorder an d tobacco abuse. She has no previous abdominal surgical history. The patient was admitted for exacerbation of her COPD. Yesterday she was having significant amounts of coughing and started complaining of abdominal pain, mostly in the left lower quadrant. She had a CT of the abdomen and pelvis that showed acute moderate-sized left rectus sheath hematoma measuring roughly 6 x 3 cm. Patient states she still has pain to the left lower quadrant of her abdomen, she denies any pain radiating to her back. She denies any nausea, vomiting, fever or chills. Patient states her bowel movements are normal, appetite is good and she has no increased pain with eating. She does take low-dose aspirin and Plavix for previous cardiac stents done greater than one year ago. She is currently on antibiotics and steroids with breathing treatments. Patient has been afebrile. Blood pressure 111/72, heart rate 102 oxygen saturation 91% on 5 L of nasal cannula. Today's labs WBC 15.25 hemoglobin 12.2 platelet count 357,000 PAST MEDICAL HISTORY: See list. PAST SURGICAL HISTORY: See list. MEDICATIONS: See list. ALLERGIES: See list. SOCIAL HISTORY: No illicit drug use. REVIEW OF SYSTEMS: CONSTITUTIONAL: Denies fever or chills. HEENT: Denies blurred vision, vision changes, or eye pain. Denies hemoptysis CARDIOVASCULAR: Denies chest pain or pressure. RESPIRATORShortness of breath, nonproductive cough. GASTROINTESTINAL: See HPI for pertinent findings HEMATOLOGIC: Denies bleeding disorders. GENITOURINARY: Denies any blood in urine or increased urinary frequency. SKIN: Denies pruitis. Denies rash. PHYSICAL EXAM: VITAL SIGNS: Reviewed GENERAL: Well-developed in no acute distress. HEENT: No sclera icterus. Extraocular movements grossly intact. Moist buccal mucosa. Head is atraumatic, normocephalic. No nasal drainage. ABDOMEN: Soft. Obese. Nondistended. Tenderness with palpation to left lower quadrant. No bruising or swelling. NEUROLOGIC: Alert and oriented. Cranial nerves II through XII grossly intact. LABORATORY DATA: WBC 15.25 hemoglobin 12.2 platelet count 357,000 IMAGING: CT abdomen and pelvis show acute moderate-sized left rectus sheath hematoma jaylin uring roughly 6 x 3 cm. ASSESSMENT: 1. Abdominal pain 2. Rectus sheath hematoma 3. COPD exacerbation 4. History of coronary artery disease status post stents 5. History of opiate addiction 6. Tobacco abuse PLAN: 1. Hold aspirin and Plavix 2. Continue diet as tolerated 3. Repeat CBC and BMP in the morning 4. No surgical intervention at this time, continue conservative management The impression and plan of care has been dictated as directed. Dr. Bender I performed a history and examination of this patient, discussed the same with the dictator. I agree with the dictator's note ,documented as a scribe. Any additional findings or plans will be noted. Past Medical History Past Medical History: Asthma, Coronary Artery Disease (CAD), Chest Pain / Angina, COPD, Seizure Disorder, Thyroid Disorder Additional Past Medical History / Comment(s): SLIGHT COPD. 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 Leftt carotid blockage History of Any Multi-Drug Resistant Organisms: None Reported Past Surgical History: Heart Catheterization, Heart Catheterization With Stent, Hysterectomy, Orthopedic Surgery Additional Past Surgical History / Comment(s): RT ROTATOR CUFF REPAIR, CYSTS REMOVED FROM UNDER ARMS AND HANDS, 4 stents, 07/18/18 left subclavian stent. Past Anesthesia/Blood Transfusion Reactions: No Reported Reaction Date of Last Stent Placement:: Nov 2017 Past Psychological History: Depression Smoking Status: Current every day smoker Past Alcohol Use History: None Reported Additional Past Alcohol Use History / Comment(s): SMOKES 4 cig/day SINCE AGE 11. Past Drug Use History: None Reported - Past Family History Mother Family Medical History: Cancer Sister(s) Family Medical History: Cancer Medications and Allergies Home Medications Medication Instructions Recorded Confirmed Type Escitalopram [Lexapro] 40 mg PO DAILY 11/28/17 12/11/20 History Gabapentin [Neurontin] 800 mg PO TID 11/29/17 12/11/20 History levETIRAcetam [Keppra] 500 mg PO DAILY 07/18/18 12/11/20 History Doxepin [SINEquan] 10 mg PO HS 02/27/19 12/11/20 History Budesonide-Formot 160-4.5 Mcg 2 puff INHALATION RT-BID PRN 04/24/19 12/11/20 History [Symbicort 160-4.5 Mcg Inhaler] Clopidogrel [Plavix] 75 mg PO DAILY 09/11/19 12/11/20 History Aspirin [Children's Aspirin] 81 mg PO DAILY 09/25/19 12/11/20 History Albuterol Nebulized [Ventolin 1.25 mg INHALATION RT-TID PRN 08/20/20 12/11/20 History Nebulized] Atorvastatin [Lipitor] 80 mg PO DAILY 08/20/20 12/11/20 History Levothyroxine Sodium 200 mcg PO DAILY 08/20/20 12/11/20 History Nitroglycerin Sl Tabs [Nitrostat] 0.4 mg SL Q5M PRN 08/20/20 12/11/20 History cloNIDine HCL [Catapres] 0.2 mg PO BID 08/20/20 12/11/20 History Buprenorphine HCl/Naloxone HCl 1 tab PO DAILY 08/21/20 12/11/20 History [Zubsolv 1.4-0.36 mg Tablet Sl] levETIRAcetam [Keppra] 1,500 mg PO HS 12/11/20 12/11/20 History Allergies Allergy/AdvReac Type Severity Reaction Status Date / Time ibuprofen [From Motrin] AdvReac Abdominal Verified 12/11/20 19:43 Pain Surgical - Exam Vital Signs Temp Pulse Resp BP Pulse Ox 98.6 F 118 H 35 H 91/69 96 12/11/20 18:52 12/11/20 18:52 12/11/20 18:52 12/11/20 18:52 12/11/20 18:52 Results - Labs 12/15/20 07:03 12/13/20 05:54 Abnormal Lab Results - Last 24 Hours (Table) 12/15/20 Range/Units 07:03 WBC 15.25 H (4.50-10.00) X 10*3/uL RBC 3.66 L (4.10-5.20) X 10*6/uL MCV 104.4 H (80.0-97.0) fL MCH 33.3 H (27.0-32.0) pg MCHC 31.9 L (32.0-37.0) g/dL RDW 14.7 H (11.5-14.5) % MPV 8.6 L (9.5-12.2) fL Immature Gran # 0.59 H (0.00-0.04) X 10*3/uL Neutrophils # 12.97 H (1.80-7.70) X 10*3/uL Eosinophils # 0 L (0.04-0.35) X 10*3/uL Microbiology - Last 24 Hours (Table) 12/11/20 19:19 Blood Culture - Preliminary Blood No Growth after 72 hours 12/11/20 19:19 Blood Culture - Preliminary Blood No Growth after 72 hours
[2020-12-15] MEDS ORDERED: HEPARIN SODIUM,PORCINE/PF 5,000 UNIT/0.5 ML SYRINGE SQ SCH (16:00)
[2020-12-15 19:14] LABS: Albumin 4.1 g/dL (3.80-4.90); Albumin/Globulin Ratio 1.71 (1.60-3.17); Anion Gap 13.1 mmol/L (4.00-12.00); BUN/Creat Ratio 24.44 Ratio (12.00-20.00); Calcium 9.2 mg/dL (8.7-10.3); Carbon Dioxide 26.9 mmol/L (21.6-31.8); Globulin 2.4 g/dL (1.6-3.3); Potassium 4.6 mmol/L (3.5-5.5); Total Bilirubin 0.2 mg/dL (0.2-1.2); Total Protein 6.5 g/dL (6.2-8.2)
[2020-12-15] MEDS: DOXEPIN 10 MG CAP PO SCH (21:45)
[2020-12-16] MEDS: LEVOTHYROXINE 100 MCG TAB PO SCH (05:52)
[2020-12-16] MEDS: methylPREDNISolone SOD SUCCI 125 MG/2 ML VIAL IV SCH ×2 (05:52→12:21)
[2020-12-16 07:54] LABS: ALT 16 U/L (4-34); AST 29 U/L (14-36); African American GFR (CKD) >90 (>60 ml/min/1.73 sqM); Albumin 3.4 g/dL (3.5-5.0); Albumin/Globulin Ratio 1.2; Alkaline Phosphatase 73 U/L (38-126); Anion Gap 5 mmol/L; Blood Urea Nitrogen 25 mg/dL (7-17); Calcium 8.6 mg/dL (8.4-10.2); Carbon Dioxide 37 mmol/L (22-30); Chloride 98 mmol/L (98-107); Globulin 2.9 g/dL; Glucose 118 mg/dL (74-99); Non-African American GFR(CKD) >90 (>60 ml/min/1.73 sqM); Potassium 4.2 mmol/L (3.5-5.1); Sodium 140 mmol/L (137-145); Total Bilirubin 0.4 mg/dL (0.2-1.3); Total Protein 6.3 g/dL (6.3-8.2)
[2020-12-16] MEDS: ATORVASTATIN 80 MG TAB PO SCH (08:23)
[2020-12-16] MEDS: guaiFENesin 600 MG TABLET.ER PO SCH ×2 (08:23→22:23)
[2020-12-16] MEDS: cloNIDine HCL 0.1 MG TAB PO SCH (08:24)
[2020-12-16] MEDS: BENZONATATE 100 MG CAP PO SCH ×3 (08:24→22:23)
[2020-12-16] MEDS: AMOXIC-POT CLAV 875-125MG 1 EACH TAB PO SCH ×2 (08:24→22:23)
[2020-12-16] MEDS: ESCITALOPRAM 20 MG TAB PO SCH (08:24)
[2020-12-16] MEDS: levETIRAcetam 500 MG TAB PO SCH (08:25)
[2020-12-16] MEDS: FORMOTEROL FUMARATE 20 MCG/2 ML NEBU INHALATION SCH ×2 (09:00→20:10)
[2020-12-16] MEDS: IPRATROPIUM-ALBUTEROL 3 ML NEB INHALATION SCH ×4 (09:00→20:10)
[2020-12-16] MEDS: BUDESONIDE 1 MG/2 ML NEBU INHALATION SCH ×2 (09:00→20:10)
--- NOTE | 2020-12-16 11:20 | P.PN ---
Subjective Progress Note Date: 12/16/20 CHIEF COMPLAINT: Shortness of breath HISTORY OF PRESENT ILLNESS: Surgical service is following in regards to patient's rectus sheath hematoma. Patient had been complaining of left sided abdominal pain. Patient is currently lying in bed comfortably. She is tolerating diet. Her pain is controlled. Afebrile WBC is 15.25 hemoglobin stable at 12.2 Patient seen and examined with Dr. gale PHYSICAL EXAM: VITAL SIGNS: Reviewed. GENERAL: Well-developed in no acute distress. HEENT: No sclera icterus. Extraocular movements grossly intact. Moist buccal mucosa. Head is atraumatic, normocephalic. ABDOMEN: Soft. Nondistended. NEUROLOGIC: Alert and oriented. Cranial nerves II through XII grossly intact. ASSESSMENT: 1. Rectus sheath hematoma PLAN: -Continue to hold aspirin and Plavix -Continue conservative management -No surgical intervention planned Physician French Polisher note has been reviewed by physician. Signing provider agrees with the documented findings, assessment, and plan of care. Objective - Vital Signs Vital signs: Vital Signs Temp 98.2 F 12/16/20 07:19 Pulse 97 12/16/20 07:19 Resp 17 12/16/20 07:19 BP 121/61 12/16/20 07:19 Pulse Ox 90 L 12/16/20 07:19 Intake & Output 12/15/20 12/16/20 12/16/20 18:59 06:59 18:59 Other: # Voids 4 1 # Bowel Movements 1 - Labs CBC & Chem 7: 12/15/20 07:03 12/16/20 06:31 Labs: Abnormal Lab Results - Last 24 Hours (Table) 12/15/20 12/15/20 12/15/20 Range/Units 07:03 07:03 14:06 WBC 15.25 H (4.50-10.00) X 10*3/uL RBC 3.66 L (4.10-5.20) X 10*6/uL MCV 104.4 H (80.0-97.0) fL MCH 33.3 H (27.0-32.0) pg MCHC 31.9 L (32.0-37.0) g/dL RDW 14.7 H (11.5-14.5) % MPV 8.6 L (9.5-12.2) fL Immature Gran # 0.59 H (0.00-0.04) X 10*3/uL Neutrophils # 12.97 H (1.80-7.70) X 10*3/uL Eosinophils # 0 L (0.04-0.35) X 10*3/uL ABG pCO2 58 H (35-45) mmHg ABG pO2 60 L (83-108) mmHg ABG HCO3 34 H (21-25) mmol/L ABG Total CO2 36 H (19-24) mmol/L ABG O2 Saturation 92.2 L (94-97) % Carbon Dioxide (22-30) mmol/L Anion Gap 13.10 H (4.00-12.00) mmol/L BUN (7-17) mg/dL BUN/Creatinine Ratio 24.44 H (12.00-20.00) Ratio Glucose (74-99) mg/dL Albumin (3.5-5.0) g/dL 12/16/20 Range/Units 06:31 WBC (4.50-10.00) X 10*3/uL RBC (4.10-5.20) X 10*6/uL MCV (80.0-97.0) fL MCH (27.0-32.0) pg MCHC (32.0-37.0) g/dL RDW (11.5-14.5) % MPV (9.5-12.2) fL Immature Gran # (0.00-0.04) X 10*3/uL Neutrophils # (1.80-7.70) X 10*3/uL Eosinophils # (0.04-0.35) X 10*3/uL ABG pCO2 (35-45) mmHg ABG pO2 (83-108) mmHg ABG HCO3 (21-25) mmol/L ABG Total CO2 (19-24) mmol/L ABG O2 Saturation (94-97) % Carbon Dioxide 37 H (22-30) mmol/L Anion Gap (4.00-12.00) mmol/L BUN 25 H (7-17) mg/dL BUN/Creatinine Ratio (12.00-20.00) Ratio Glucose 118 H (74-99) mg/dL Albumin 3.4 L (3.5-5.0) g/dL Microbiology - Last 24 Hours (Table) 12/11/20 19:19 Blood Culture - Preliminary Blood No Growth after 96 hours 12/11/20 19:19 Blood Culture - Preliminary Blood No Growth after 96 hours
[2020-12-16 11:30] LABS: HCT 37.5 % (37.2-46.3); HGB 12.2 g/dL (12.0-15.0); MCHC 32.5 g/dL (32.0-37.0); MCV 101.4 fL (80.0-97.0); Mean Platelet Volume 8.8 fL (9.5-12.2); Platelet Count 349 X 10*3/uL (140-440); RDW 14.6 % (11.5-14.5); WBC 15.04 X 10*3/uL (4.50-10.00)
[2020-12-16] MEDS: SODIUM CHLORIDE 0.9% 1,000 ML IV SCH (12:22)
--- NOTE | 2020-12-16 12:47 | P.CNNES ---
History of Present Illness Consult date: 12/16/20 Requesting physician: Jose F Mcwilliams Reason for Consult: altered mental status History of Present Illness: This is a 60-year-old woman with history of seizures, significant left internal carotid artery stenosis, hypothyroidism, COPD home oxygen who presented to the emergency department on 12/11/2020 because of increased shortness of breath. Neurology is consulted for altered mental status. Some of the history is obtained from the patient nurse as well as medical record. Per the patient's nurse and she stated that the her daughter stated that she's been confused for the last 2 months. Was notified that she is more lethargic. She also notified the nurse that she had a hard time holding the cup and which has resolved. Procedures the patient is on Keppra 1500 mg daily at bedtime as well as 500 mg daily. She is also on gabapentin 800 mg 1 tablet 3 times a day, Plavix 75 mg daily, Lipitor 80 mg daily, aspirin 81 mg daily, Lexapro I spoke with the patient daughter and she stated that per boyfriend stated she is confused for few intermittently and is not compliant with medication with Keppra. Because of Keppra was making her sleepy she was on Keppra 500mg qam and 1500mg qhs and has been taking it for at least 2 years. She followed-up with Dr. López (last possibly about 1 year ago but for neuropathy on left hand). She had stenting of left ICA stenosis and unsure how long ago (summer). She was last seen by the neuro-hospitalist Dr. Leung in our facility on 04/2019 and regarding her seizures he recommended for the patient to continue Keppra 1500 mg 1 tablet twice a day. Patient had an EEG on 04/25/2019 is reported as abnormal. And it's indicated if of mild diffuse cerebral dysfunction in part due to medication effect. No seizures were recorded. No epileptiform activity was present. She was also seen also in the past by Dr. King her neurological management. Please refer to their notes for further details. Patient also has a significant left internal carotid artery stenosis of more than 90% and it seems that the patient had angiography and the August [address] Vale and he stated that the patient has extreme a calcified with calcification involving the ostial of the intimal left carotid and left subclavian., Critical disease involving the left internal carotid artery. And he stated that he is aborting the carotid stenting at this point and he consented to vascular surgery. In the body appears very tight lesion in the range of 99.9% Most recent vitals his blood pressure of 121/61, heart rate of 97, S. 517, temperature of 98.2 Fahrenheit oral and pulse ox of 90% on 5 L of nasal cannula. In the hospital stay the patient has been afebrile. Patient initial white blood cells 16,000 and the patient the most recent one is 15 and she is getting steroids Most recent chemistry panel is the sodium was 140, creatinine is 0.64, glucose is 118, calcium is 8.6, AST 29 and ALT of 16. Keppra level is 20.2 which is considered therapeutic. Argueta virus PCR was not detected. Pulmonary is on board and it was felt she has Acute exacerbation of COPD with respiratory acidosis and has ongoing component of CO2 narcosis and is on steroids as well as Augmentin Review of Systems Review of system is limited and the peritent positive and negative as per HPI. Past Medical History Past Medical History: Asthma, Coronary Artery Disease (CAD), Chest Pain / Angina, COPD, Seizure Disorder, Thyroid Disorder Additional Past Medical History / Comment(s): SLIGHT COPD. 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 Leftt carotid blockage History of Any Multi-Drug Resistant Organisms: None Reported Past Surgical History: Heart Catheterization, Heart Catheterization With Stent, Hysterectomy, Orthopedic Surgery Additional Past Surgical History / Comment(s): RT ROTATOR CUFF REPAIR, CYSTS REMOVED FROM UNDER ARMS AND HANDS, 4 stents, 07/18/18 left subclavian stent. Past Anesthesia/Blood Transfusion Reactions: No Reported Reaction Date of Last Stent Placement:: Nov 2017 Past Psychological History: Depression Smoking Status: Current every day smoker Past Alcohol Use History: None Reported Additional Past Alcohol Use History / Comment(s): SMOKES 4 cig/day SINCE AGE 11. Past Drug Use History: None Reported - Past Family History Mother Family Medical History: Cancer Sister(s) Family Medical History: Cancer Medications and Allergies Home Medications Medication Instructions Recorded Confirmed Type Escitalopram [Lexapro] 40 mg PO DAILY 11/28/17 12/11/20 History Gabapentin [Neurontin] 800 mg PO TID 11/29/17 12/11/20 History levETIRAcetam [Keppra] 500 mg PO DAILY 07/18/18 12/11/20 History Doxepin [SINEquan] 10 mg PO HS 02/27/19 12/11/20 History Budesonide-Formot 160-4.5 Mcg 2 puff INHALATION RT-BID PRN 04/24/19 12/11/20 History [Symbicort 160-4.5 Mcg Inhaler] Clopidogrel [Plavix] 75 mg PO DAILY 09/11/19 12/11/20 History Aspirin [Children's Aspirin] 81 mg PO DAILY 09/25/19 12/11/20 History Albuterol Nebulized [Ventolin 1.25 mg INHALATION RT-TID PRN 08/20/20 12/11/20 History Nebulized] Atorvastatin [Lipitor] 80 mg PO DAILY 08/20/20 12/11/20 History Levothyroxine Sodium 200 mcg PO DAILY 08/20/20 12/11/20 History Nitroglycerin Sl Tabs [Nitrostat] 0.4 mg SL Q5M PRN 08/20/20 12/11/20 History cloNIDine HCL [Catapres] 0.2 mg PO BID 08/20/20 12/11/20 History Buprenorphine HCl/Naloxone HCl 1 tab PO DAILY 08/21/20 12/11/20 History [Zubsolv 1.4-0.36 mg Tablet Sl] levETIRAcetam [Keppra] 1,500 mg PO HS 12/11/20 12/11/20 History Allergies Allergy/AdvReac Type Severity Reaction Status Date / Time ibuprofen [From Motrin] AdvReac Abdominal Verified 12/11/20 19:43 Pain Physical Examination - Vital Signs Vital Signs: Vital Signs Temp Pulse Pulse Resp BP Pulse Ox 12/16/20 07:19 98.2 F 97 17 121/61 90 L 12/16/20 01:08 98.1 F 99 127/77 95 12/15/20 19:00 97.9 F 99 17 104/64 92 L 12/15/20 16:04 90 12/15/20 15:54 88 12/15/20 13:27 97.9 F 102 H 20 111/72 91 L 12/15/20 12:07 88 12/15/20 11:52 88 Intake and Output 12/15/20 12/16/20 12/16/20 22:59 06:59 14:59 Other: # Voids 4 1 # Bowel Movements 1 GENERAL: The patient is lying in bed and is not in acute distress. CHEST: The heart rate is regular rate rhythm. No murmurs to auscultation. No carotid bruit bilaterally. LUNG: Clear to auscultation bilaterally no wheezing noted throughout. Not labored breathing. ABDOMEN/GI: Bowel sounds present in all 4 quadrants. No tenderness to palpation throughout. NEUROLOGICAL: Higher mental function: The patient is drowsy but is awakeable to voice. Oriented to self and stated she was in the hospital but stated it was [facility]. Stated it was 1941 for year. She is able to name objects (watch, pen and glasses). Patient is following simple commands. No aphasia and no neglect. Cranial nerves: The pupils are round, equal and reactive to light. Visual pierson are full to confrontation throughout. Extraocular movement is intact no nystagmus is noted. Facial sensation is normal to touch throughout. The facial strength is normal throughout. No dysarthria is noted. Shoulder shrug is normal bilaterally. Motor: Gait is deferred. The strength is moving all extremities above gravity without drift. Normal tone and bulk. Cerebellum: Normal finger to nose bilaterally. Sensation: Sensation is normal to touch throughout. Reflexes (right/left): 2+ throughout. Plantars are downgoing bilaterally. Results - Laboratory Findings CBC and BMP: 12/16/20 06:31 12/16/20 06:31 Abnormal Lab Findings: Abnormal Labs 12/11/20 12/11/20 12/12/20 19:19 19:19 09:08 WBC 16.0 H RBC MCV 100.1 H MCH MCHC RDW MPV Absolute Nucleated RBC Immature Gran # Neutrophils # 12.9 H Eosinophils # NRBC/100 WBC Diff ABG pH ABG pCO2 ABG pO2 ABG HCO3 ABG Total CO2 ABG O2 Saturation Sodium 128 L Chloride 95 L Carbon Dioxide Anion Gap BUN BUN/Creatinine Ratio Glucose 125 H Plasma Lactic Acid Stepan 2.9 H* Total Bilirubin Albumin 12/13/20 12/13/20 12/13/20 05:54 05:54 21:09 WBC 16.90 H RBC 4.02 L MCV 102.0 H MCH MCHC 31.0 L RDW 14.6 H MPV 8.9 L Absolute Nucleated RBC 0.02 H Immature Gran # Neutrophils # Eosinophils # NRBC/100 WBC Diff 0.1 H ABG pH 7.27 L ABG pCO2 61 H ABG pO2 68 L ABG HCO3 28 H ABG Total CO2 30 H ABG O2 Saturation Sodium Chloride Carbon Dioxide Anion Gap BUN BUN/Creatinine Ratio Glucose 145 H Plasma Lactic Acid Stepan Total Bilirubin 0.1 L Albumin 12/15/20 12/15/20 12/15/20 07:03 07:03 14:06 WBC 15.25 H RBC 3.66 L MCV 104.4 H MCH 33.3 H MCHC 31.9 L RDW 14.7 H MPV 8.6 L Absolute Nucleated RBC Immature Gran # 0.59 H Neutrophils # 12.97 H Eosinophils # 0 L NRBC/100 WBC Diff ABG pH ABG pCO2 58 H ABG pO2 60 L ABG HCO3 34 H ABG Total CO2 36 H ABG O2 Saturation 92.2 L Sodium Chloride Carbon Dioxide Anion Gap 13.10 H BUN BUN/Creatinine Ratio 24.44 H Glucose Plasma Lactic Acid Stepan Total Bilirubin Albumin 12/16/20 06:31 WBC RBC MCV MCH MCHC RDW MPV Absolute Nucleated RBC Immature Gran # Neutrophils # Eosinophils # NRBC/100 WBC Diff ABG pH ABG pCO2 ABG pO2 ABG HCO3 ABG Total CO2 ABG O2 Saturation Sodium Chloride Carbon Dioxide 37 H Anion Gap BUN 25 H BUN/Creatinine Ratio Glucose 118 H Plasma Lactic Acid Stepan Total Bilirubin Albumin 3.4 L Assessment and Plan Assessment: Altered mental status for few months (per the daughter that is intermittent). Possible delerium due to medication effect (on high dose of Gabpentin 800mg 1 tab tid) and possible underlying hypoxia. Rule out underlying mild cognitive impairment/dementia. Acute exacerbation of COPD with respiratory acidosis and has ongoing component of CO2 narcosis and is on steroids as well as Augmentin History of seizures Significant left internal carotid artery stenosis and she had angiography on 08/2019 (by Dr. Vale and he referred her for vascular team) per the daughter she had stent peformed History of hypothyroidism History of coronary artery disease with previous stent placement History of hyperlipidemia Ongoing nicotine use Plan: I ordered a CT of the head. I ordered a routine EEG. And therefore the patient's daughter if the patient continues to be sleepy on Keppra to consider Vimpat as an outpatient and consider 50 mg 1 tablet twice a day and possibly go up as high as 100 mg 1 tablet twice a day. Ordered TSH, vitamin B12 and folate level. Gabapentin currently is on hold during his hospital stay at. Consider gabapentin 100 mg 1 tablet 3 times a day and if needed go up to 300 mg 1 tablet 3 times a day. We'll defer the rest of the medical management to the primary and pulmonary tea m. I notified the patient's daughter that the patient needs to follow-up with a neurologist as an outpatient within 1-2 weeks regarding memory testing and recommend neuropsych testing as an outpatient. The plan is discussed with the patient nurse and her daughter (via phone). Thank you for the consultation. Tagn Castillo M.D. Neuro-hospitalist Time with Patient: Greater than 30
--- NOTE | 2020-12-16 13:41 | P.PN ---
Subjective Principal diagnosis: Left lower quadrant abdominal pain stated since yesterday. The patient states significant pain. Essentially brought in for COPD elements. No significant fever or chills. She had nominal bowel movement yesterday. However, altered mental status is noted. She is disoriented to time and place. CT scan of the abdomen shows rectus sheath hematoma. Surgical intervention is not necessary but conservative observation. I will go ahead and consult Neurology secondary to history of seizure disorder. Objective - Vital Signs Vital signs: Vital Signs Temp 98.2 F 12/16/20 07:19 Pulse 102 H 12/16/20 12:40 Resp 17 12/16/20 07:19 BP 121/61 12/16/20 07:19 Pulse Ox 94 L 12/16/20 09:00 Intake & Output 12/15/20 12/16/20 12/16/20 18:59 06:59 18:59 Other: # Voids 4 1 # Bowel Movements 1 - Constitutional General appearance: Absent: no acute distress - EENT Eyes: Absent: abnormal pupil - Neck Neck: Present: lymphadenopathy - Respiratory Respiratory: bilateral: CTA - Cardiovascular Rhythm: regular Heart sounds: normal: S1, S2 Abnormal Heart Sounds: Absent: S3 Gallop - Gastrointestinal General gastrointestinal: Present: soft, tenderness - Psychiatric Psychiatric: Absent: A&O x's 3, appropriate affect, intact judgment & insight - Labs CBC & Chem 7: 12/16/20 06:31 12/16/20 06:31 Labs: Abnormal Lab Results - Last 24 Hours (Table) 12/15/20 12/15/20 12/16/20 Range/Units 07:03 14:06 06:31 WBC 15.04 H (4.50-10.00) X 10*3/uL RBC 3.70 L (4.10-5.20) X 10*6/uL MCV 101.4 H (80.0-97.0) fL MCH 33.0 H (27.0-32.0) pg RDW 14.6 H (11.5-14.5) % MPV 8.8 L (9.5-12.2) fL Absolute Nucleated RBC 0.02 H (0.00-0.00) X 10*3/uL NRBC/100 WBC Diff 0.1 H (0.0-0.0) /100 WBCS ABG pCO2 58 H (35-45) mmHg ABG pO2 60 L (83-108) mmHg ABG HCO3 34 H (21-25) mmol/L ABG Total CO2 36 H (19-24) mmol/L ABG O2 Saturation 92.2 L (94-97) % Carbon Dioxide (22-30) mmol/L Anion Gap 13.10 H (4.00-12.00) mmol/L BUN (7-17) mg/dL BUN/Creatinine Ratio 24.44 H (12.00-20.00) Ratio Glucose (74-99) mg/dL Albumin (3.5-5.0) g/dL 12/16/20 Range/Units 06:31 WBC (4.50-10.00) X 10*3/uL RBC (4.10-5.20) X 10*6/uL MCV (80.0-97.0) fL MCH (27.0-32.0) pg RDW (11.5-14.5) % MPV (9.5-12.2) fL Absolute Nucleated RBC (0.00-0.00) X 10*3/uL NRBC/100 WBC Diff (0.0-0.0) /100 WBCS ABG pCO2 (35-45) mmHg ABG pO2 (83-108) mmHg ABG HCO3 (21-25) mmol/L ABG Total CO2 (19-24) mmol/L ABG O2 Saturation (94-97) % Carbon Dioxide 37 H (22-30) mmol/L Anion Gap (4.00-12.00) mmol/L BUN 25 H (7-17) mg/dL BUN/Creatinine Ratio (12.00-20.00) Ratio Glucose 118 H (74-99) mg/dL Albumin 3.4 L (3.5-5.0) g/dL Microbiology - Last 24 Hours (Table) 12/11/20 19:19 Blood Culture - Preliminary Blood No Growth after 96 hours 12/11/20 19:19 Blood Culture - Preliminary Blood No Growth after 96 hours Assessment and Plan (1) COPD exacerbation Current Visit: Yes Status: Acute Code(s): J44.1 - CHRONIC OBSTRUCTIVE PULMONARY DISEASE W (ACUTE) EXACERBATION SNOMED Code(s): 560700577 (2) CAD (coronary artery disease) Current Visit: No Status: Acute Code(s): I25.10 - ATHSCL HEART DISEASE OF [place] CORONARY ARTERY W/O ANG PCTRS SNOMED Code(s): 98108385 (3) Chronic bronchitis with COPD (chronic obstructive pulmonary disease) Current Visit: No Status: Acute Code(s): J44.9 - CHRONIC OBSTRUCTIVE PULMONARY DISEASE, UNSPECIFIED SNOMED Code(s): 121847221 (4) History of carotid endarterectomy Current Visit: No Status: Acute Code(s): Z98.890 - OTHER SPECIFIED POSTPROCEDURAL STATES SNOMED Code(s): 153169748 (5) Opiate dependence Current Visit: No Status: Acute Code(s): F11.20 - OPIOID DEPENDENCE, UNCOMPLICATED SNOMED Code(s): 48694871 (6) Tobacco abuse Current Visit: No Status: Acute Code(s): Z72.0 - TOBACCO USE SNOMED Code(s): 838438268 (7) Wheezing Current Visit: No Status: Acute Code(s): R06.2 - WHEEZING SNOMED Code(s): 15863182 Plan: Due to her altered mental status, we will go ahead and ask the patient to it CT scan of the head. Neurology has been counseled that. CBC is elevated at question element of stress versus steroids. Blood culture to be repeated. Urinalysis with urine culture to also be instituted. We will continue follow. Question need for IV antibody treatment if she worsens
--- NOTE | 2020-12-16 15:14 | P.PN ---
Subjective Progress Note Date: 12/16/20 12/16/2020, I'm seeing the patient for a follow-up. I was a bit concerned about her mental status yesterday. Blood gases was done and it showed improvement in her acid base status. The patient's pH of 7.38 with a pCO2 of 58 and pO2 of 60. This was on FiO2 of 40%. Today she is being seen for a follow-up. She is being treated for an acute COPD exacerbation. As mentioned earlier, she has also developed a moderate-sized left rectus sheath hematoma from excessive coughing. Her hemoglobin is currently stable at 12.2. The is at 15. She remains on bronchodilators and she is also on systemic steroids. She continues to have shortness of breath with limited amount of activity. While at rest, her breathing is not labored. Her medication for now includes DuoNeb nebulized treatments around the clock, Tessalon Perles for cough, IV Solu Medrol 60 mg every 6 hours, Pulmicort Respules and Perforomist nebulized 2 minutes twice a day and she is also on Mucinex for cough and congestion pH is completing a course of Augmentin. Objective - Vital Signs Vital signs: Vital Signs Temp 98.8 F 12/16/20 14:00 Pulse 95 12/16/20 14:00 Resp 17 12/16/20 14:00 BP 119/70 12/16/20 14:00 Pulse Ox 91 L 12/16/20 14:00 Intake & Output 12/15/20 12/16/20 12/16/20 18:59 06:59 18:59 Other: # Voids 4 1 # Bowel Movements 1 - Exam Mild respiratory distress, with some conversational dyspnea, but without use of accessory muscles. Oriented 3. Saturations are 93% on 4 L. HEENT examination is grossly unremarkable. Neck supple. Full range of motion. No adenopathy thyromegaly or neck vein distention. Cardiovascular examination reveals regular rhythm rate. S1-S2 normal. No S3 or S4. No discernible murmur noted. Heart sounds are very distant. Lungs reveal coarse inspiratory and expiratory rhonchi. There are some expiratory wheezes. Breath sounds are equal bilaterally but diminished throughout. No crackles appreciated. Breath sounds are minimally improved. Cough is wet and congested sounding. Abdomen soft bowel sounds are heard. No masses or tenderness. Extremities are intact. No cyanosis clubbing or edema. Skin is without rash or lesion. Neurologic examination is brief but nonfocal. - Labs CBC & Chem 7: 12/16/20 06:31 12/16/20 06:31 Labs: Abnormal Lab Results - Last 24 Hours (Table) 12/15/20 12/16/20 12/16/20 Range/Units 07:03 06:31 06:31 WBC 15.04 H (4.50-10.00) X 10*3/uL RBC 3.70 L (4.10-5.20) X 10*6/uL MCV 101.4 H (80.0-97.0) fL MCH 33.0 H (27.0-32.0) pg RDW 14.6 H (11.5-14.5) % MPV 8.8 L (9.5-12.2) fL Absolute Nucleated RBC 0.02 H (0.00-0.00) X 10*3/uL NRBC/100 WBC Diff 0.1 H (0.0-0.0) /100 WBCS Carbon Dioxide 37 H (22-30) mmol/L Anion Gap 13.10 H (4.00-12.00) mmol/L BUN 25 H (7-17) mg/dL BUN/Creatinine Ratio 24.44 H (12.00-20.00) Ratio Glucose 118 H (74-99) mg/dL Albumin 3.4 L (3.5-5.0) g/dL Microbiology - Last 24 Hours (Table) 12/11/20 19:19 Blood Culture - Preliminary Blood No Growth after 96 hours 12/11/20 19:19 Blood Culture - Preliminary Blood No Growth after 96 hours Assessment and Plan Plan: 1 Acute exacerbation of COPD.patient had significant respiratory acidosis on her blood gases from few days back. The patient is on bronchodilators and steroids and she is completing course of Augmentin. Blood gases from yesterday showed improvement in her acid base status and she has well compensated hypercapnic respiratory failure. No signs of any acute respiratory acidosis at this point. 2 Ongoing tobacco use with nicotine addiction. 3 History of CAD with previous stent placement. 4 History of angina pectoris. 5 Obesity. 6 History of seizure disorder. 7 History of hypothyroidism. 8 History of hyperlipidemia. 9 Left carotid artery stenosis. Plan I reviewed the blood gases from yesterday and there is improvement in her acid base status. No signs of any CO2 narcosis at this point in time. She is a widely awake and alert. She is improving., Continue bronchodilators Continue steroidsStopped IV Solu-Medrol and put the patient on a prednisone burst taper Oxygen at 4 L Titrate FiO2 to maintain a saturation above 90% Rest of the medications will be kept unchanged as the patient is currently on IV Solu-Medrol, oral Augmentin, Mucinex for cough, or seizures, and I'm going to add heparin subcu for DVT prophylaxis. Discharge planning is in progress. We'll start a prednisone burst taper today. No other new complaints otherwise for now.
[2020-12-16 16:42] LABS: Appearance,Urine Cloudy (Clear); Bacteria,Urine Rare /hpf; Bilirubin,Urine Negative (Negative); Blood,Urine Negative (Negative); Color,Urine Light Yellow; Glucose,Urine (UA) Negative (Negative); Ketones,Urine Negative (Negative); Leukocyte Esterase,Urine Small (Negative); Mucus,Urine Rare /hpf; Nitrite,Urine Negative (Negative); PH, Urine 6.5 (5.0-8.0); Protein,Urine Trace (Negative); RBC,Urine <1 /hpf (0-5); Specific Gravity,Urine 1.021 (1.001-1.035); Squamous Epithelial Cell,Urine 10 /hpf (0-4); Urobilinogen,Urine <2.0 mg/dL (<2.0); WBC,Urine 3 /hpf (0-5)
[2020-12-16] MEDS: DOXEPIN 10 MG CAP PO SCH (22:23)
[2020-12-17] MEDS: SODIUM CHLORIDE 0.9% 1,000 ML IV SCH (03:15)
[2020-12-17] MEDS: LEVOTHYROXINE 100 MCG TAB PO SCH (05:48)
[2020-12-17] MEDS: ATORVASTATIN 80 MG TAB PO SCH (07:48)
[2020-12-17] MEDS: cloNIDine HCL 0.1 MG TAB PO SCH (07:48)
[2020-12-17] MEDS: BENZONATATE 100 MG CAP PO SCH (07:48)
[2020-12-17] MEDS: guaiFENesin 600 MG TABLET.ER PO SCH (07:48)
[2020-12-17] MEDS: ESCITALOPRAM 20 MG TAB PO SCH (07:48)
[2020-12-17] MEDS: AMOXIC-POT CLAV 875-125MG 1 EACH TAB PO SCH (07:49)
[2020-12-17] MEDS: levETIRAcetam 500 MG TAB PO SCH (07:49)
[2020-12-17] MEDS: FORMOTEROL FUMARATE 20 MCG/2 ML NEBU INHALATION SCH (08:14)
[2020-12-17] MEDS: BUDESONIDE 1 MG/2 ML NEBU INHALATION SCH (08:14)
[2020-12-17] MEDS: IPRATROPIUM-ALBUTEROL 3 ML NEB INHALATION SCH ×2 (08:14→11:26)
[2020-12-17 08:44] LABS: HCT 42.4 % (34.0-46.0); HGB 13.5 gm/dL (11.4-16.0); MCH 32.5 pg (25.0-35.0); MCHC 31.8 g/dL (31.0-37.0); MCV 102.3 fL (80.0-100.0); Macrocytosis Slight; Mean Platelet Volume 6.8; Platelet Count 370 k/uL (150-450); RBC 4.14 m/uL (3.80-5.40); RDW 14.3 % (11.5-15.5); WBC 16.7 k/uL (3.8-10.6)
[2020-12-17 08:46] VITALS: BP 108/65; TEMP 98.5
--- NOTE | 2020-12-17 08:53 | P.DS ---
Providers Date of admission: 12/11/20 23:06 Attending physician: Jose F Mcwilliams Consults: 12/11/20 22:41 Consult Physician Routine Consulting Provider: Hilario Castillo Consult Reason/Comments: COPD exacerbation Do you want consulting provider notified?: Yes 12/15/20 13:26 Consult Physician Routine Consulting Provider: Myke Bender Consult Reason/Comments: rectus sheath hematoma Do you want consulting provider notified?: Already Contacted 12/16/20 08:36 Consult Physician Routine Consulting Provider: Wendie King Consult Reason/Comments: Confusion Do you want consulting provider notified?: Yes Primary care physician: Jose F Mcwilliams - Discharge Diagnosis(es) (1) COPD exacerbation Current Visit: Yes Status: Acute (2) CAD (coronary artery disease) Current Visit: No Status: Acute (3) Chronic bronchitis with COPD (chronic obstructive pulmonary disease) Current Visit: No Status: Acute (4) History of carotid endarterectomy Current Visit: No Status: Acute (5) Opiate dependence Current Visit: No Status: Acute (6) Tobacco abuse Current Visit: No Status: Acute (7) Wheezing Current Visit: No Status: Acute Hospital Course: This discharge summary 60-year-old white female essentially meant for exacerbation of COPD with history of seizure disorder. She had an extended stay related to altered mental status. Pulmonology and neurology had been consulted and she will be cleared once medication changes are instituted. The patient has had no seizure activity since being here but we made slight medication changes as noted in her reconciliation. She'll be discharged on antibiotics with appropriate steroid treatment. She will continue Suboxone and decrease gabapentin to 100 mg 3 times a day per neurology suggestion. She is discharged in stable condition and much more alert then 48 hours prior to discharge. No voiding difficulties. No sniffing nausea, vomiting or diarrhea noted she is tolerating diet and lucid now. Patient Condition at Discharge: Good Plan - Discharge Summary Discharge Rx Participant: Yes New Discharge Prescriptions: New predniSONE [Deltasone] 40 mg PO DAILY #5 tab Amoxic-Pot Clav 875-125Mg [Augmentin 875-125] 1 each PO Q12HR #10 tab Ipratropium-Albuterol Nebulize [Duoneb 0.5 mg-3 mg/3 ml Soln] 3 ml INHALATION RT-QID #100 each Nystatin 100,000 Unit/ml Susp [Mycostatin Oral Susp] 500,000 unit PO QID #200 ml Continue Escitalopram [Lexapro] 40 mg PO DAILY levETIRAcetam [Keppra] 500 mg PO DAILY Doxepin [SINEquan] 10 mg PO HS Budesonide-Formot 160-4.5 Mcg [Symbicort 160-4.5 Mcg Inhaler] 2 puff INHALATION RT-BID PRN PRN Reason: Shortness Of Breath Clopidogrel [Plavix] 75 mg PO DAILY Aspirin [Children's Aspirin] 81 mg PO DAILY Nitroglycerin Sl Tabs [Nitrostat] 0.4 mg SL Q5M PRN PRN Reason: Chest Pain Buprenorphine HCl/Naloxone HCl [Zubsolv 1.4-0.36 mg Tablet Sl] 1 tab PO DAILY levETIRAcetam [Keppra] 1,500 mg PO HS Levothyroxine Sodium 200 mcg PO DAILY Atorvastatin [Lipitor] 80 mg PO DAILY cloNIDine HCL [Catapres] 0.2 mg PO BID Albuterol Nebulized [Ventolin Nebulized] 1.25 mg INHALATION RT-TID PRN PRN Reason: Shortness Of Breath Changed Gabapentin [Neurontin] 100 mg PO TID #90 tab Discharge Medication List Escitalopram [Lexapro] 40 mg PO DAILY 11/28/17 [History] levETIRAcetam [Keppra] 500 mg PO DAILY 07/18/18 [History] Doxepin [SINEquan] 10 mg PO HS 02/27/19 [History] Budesonide-Formot 160-4.5 Mcg [Symbicort 160-4.5 Mcg Inhaler] 2 puff INHALATION RT-BID PRN 04/24/19 [History] Clopidogrel [Plavix] 75 mg PO DAILY 09/11/19 [History] Aspirin [Children's Aspirin] 81 mg PO DAILY 09/25/19 [History] Albuterol Nebulized [Ventolin Nebulized] 1.25 mg INHALATION RT-TID PRN 08/20/20 [History] Atorvastatin [Lipitor] 80 mg PO DAILY 08/20/20 [History] Levothyroxine Sodium 200 mcg PO DAILY 08/20/20 [History] Nitroglycerin Sl Tabs [Nitrostat] 0.4 mg SL Q5M PRN 08/20/20 [History] cloNIDine HCL [Catapres] 0.2 mg PO BID 08/20/20 [History] Buprenorphine HCl/Naloxone HCl [Zubsolv 1.4-0.36 mg Tablet Sl] 1 tab PO DAILY 08/21/20 [History] levETIRAcetam [Keppra] 1,500 mg PO HS 12/11/20 [History] Amoxic-Pot Clav 875-125Mg [Augmentin 875-125] 1 each PO Q12HR #10 tab 12/17/20 [Rx] Gabapentin [Neurontin] 100 mg PO TID #90 tab 12/17/20 [Rx] Ipratropium-Albuterol Nebulize [Duoneb 0.5 mg-3 mg/3 ml Soln] 3 ml INHALATION RT-QID #100 each 12/17/20 [Rx] Nystatin 100,000 Unit/ml Susp [Mycostatin Oral Susp] 500,000 unit PO QID #200 ml 12/17/20 [Rx] predniSONE [Deltasone] 40 mg PO DAILY #5 tab 12/17/20 [Rx] Follow up Appointment(s)/Referral(s): Jose F Mcwilliams MD [Primary Care Provider] - 3 Days Patient Instructions/Handouts: Seizure/Epilepsy Discharge Instructions & Follow-Up Discharge Disposition: HOME SELF-CARE
[2020-12-17] MEDS ORDERED: predniSONE 20 MG TAB PO SCH (09:00)
[2020-12-17] MEDS ORDERED: NYSTATIN 100,000 UNIT/ML SUSP 500,000 UNIT/5 ML CUP PO SCH (09:00)
--- NOTE | 2020-12-17 10:45 | P.PN ---
Subjective Progress Note Date: 12/17/20 The patient seen at bedside and she stated that she's doing drastically better. Per the patient nurse the steroids was stopped. The patient's nurse her oxygen saturation was 81% and she does not need to keep the oxygen nasal cannula on her. Per the EEG techs she refused the EEG. Upon speaking the patient's she stated that she's feeling drastically better and she does not want to pursue with the EEG or the CT of the brain. Objective - Vital Signs Vital signs: Vital Signs Temp 98.5 F 12/17/20 08:46 Pulse 102 H 12/17/20 08:46 Resp 18 12/17/20 08:46 BP 108/65 12/17/20 08:46 Pulse Ox 91 L 12/17/20 08:46 Intake & Output 12/16/20 12/17/20 12/17/20 18:59 06:59 18:59 Other: Voiding Method Bedside Commode Bedside Commode # Voids 4 # Bowel Movements 2 - Exam GENERAL: The patient is lying in bed and is not in acute distress. NEUROLOGICAL: Higher mental function: The patient is awake, alert, oriented to self, place and time. Patient is following commands. No aphasia and no neglect. Cranial nerves: The pupils are round, equal and reactive to light and accommodation. Visual pierson are full to confrontation throughout. Extraocular movement is intact no nystagmus is noted. Facial sensation is normal to touch throughout. The facial strength is normal throughout. Hearing is normal bilaterally to hand rub. Tongue is midline and moved [id number] without any difficulty. No dysarthria is noted. Shoulder shrug is normal bilaterally. Motor: The strength is 5 over 5 throughout. Normal tone and bulk. Cerebellum: Normal finger to nose bilaterally. Sensation: Sensation is normal to touch throughout. Plantars are downgoing bilaterally. WORK-UP: Most recent chemistry panel is the sodium was 140, creatinine is 0.64, glucose is 118, calcium is 8.6, AST 29 and ALT of 16. Keppra level is 20.2 which is considered therapeutic. Argueta virus PCR was not detected. Pulmonary is on board and it was felt she has Acute exacerbation of COPD with respiratory acidosis and has ongoing component of CO2 narcosis and is on steroids as well as Augmentin - Labs CBC & Chem 7: 12/17/20 08:22 12/16/20 06:31 Labs: Abnormal Lab Results - Last 24 Hours (Table) 12/16/20 12/16/20 12/17/20 Range/Units 06:31 15:00 08:22 WBC 15.04 H 16.7 H (4.50-10.00) X 10*3/uL RBC 3.70 L (4.10-5.20) X 10*6/uL MCV 101.4 H 102.3 H (80.0-97.0) fL MCH 33.0 H (27.0-32.0) pg RDW 14.6 H (11.5-14.5) % MPV 8.8 L (9.5-12.2) fL Absolute Nucleated RBC 0.02 H (0.00-0.00) X 10*3/uL NRBC/100 WBC Diff 0.1 H (0.0-0.0) /100 WBCS Urine Appearance Cloudy H (Clear) Urine Protein Trace H (Negative) Ur Leukocyte Esterase Small H (Negative) Ur Squamous Epith Cells 10 H (0-4) /hpf Urine Bacteria Rare H (None) /hpf Urine Mucus Rare H (None) /hpf Microbiology - Last 24 Hours (Table) 12/16/20 15:00 Urine Culture - Preliminary Urine,Voided 12/11/20 19:19 Blood Culture - Preliminary Blood No Growth after 120 hours 12/11/20 19:19 Blood Culture - Preliminary Blood No Growth after 120 hours Assessment and Plan Assessment: * Delerium due to underlying medication effect (Steroids and on high dose of Gabpentin 800mg 1 tab tid) and hypoxia and possibly not compliant using her oxygen therapy and medication effect (--resolved * Altered mental status with delerium for few months (per the daughter that is intermittent). Possibly due to medication effect (on high dose of Gabpentin 800mg 1 tab tid) and hypoxia. Cannot rule out a underlying mild cognitive impairment/dementia. * Acute exacerbation of COPD with respiratory acidosis and has ongoing component of CO2 narcosis and is on steroids as well as Augmentin * History of seizures * Significant left internal carotid artery stenosis and she had angiography on 08/2019 (by Dr. Vale and he referred her for vascular team) per the daughter she had stent peformed * History of hypothyroidism * History of coronary artery disease with previous stent placement * History of hyperlipidemia * Ongoing nicotine use Plan: * Patient refused CT head and routine EEG. Since she is back to baseline she can get it as outpatient if she continues to have these symptoms. * Notified the patient's daughter if the patient continues to be sleepy on Keppra to consider Vimpat as an outpatient and consider 50 mg 1 tablet twice a day and possibly go up as high as 100 mg 1 tablet twice a day. * TSH, vitamin B12 and folate level and are pending. If patient has Vitamin B12 deficiency recommend Vitamin B12 1000mcg daily supplementation. If has folic acid deficiency recommend folic acid 1mg daily supplementation. * Gabapentin currently is on hold during his hospital stay. Consider gabapentin 100 mg 1 tablet 3 times a day and if needed go up to 300 mg 1 tablet 3 times a day. * We'll defer the rest of the medical management to the primary and pulmonary team. * I notified the patient's daughter that the patient needs to follow-up with a neurologist as an outpatient within 2-3 weeks regarding memory testing and recommend neuropsych testing as an outpatient. The plan is discussed with the patient nurse and her daughter (via phone). There is no further neurological work-up. Tang Castillo M.D. Neuro-hospitalist Time with Patient: Less than 30
--- NOTE | 2020-12-17 10:56 | P.PN ---
Subjective Progress Note Date: 12/17/20 CHIEF COMPLAINT: Shortness of breath HISTORY OF PRESENT ILLNESS: Surgical service is following in regards to patient's rectus sheath hematoma. Patient reports improvement in her abdominal pain. She denies any nausea or vomiting. Her hemoglobin has gone up to 13. Afebrile. She is being discharge later today. Patient seen and examined with Dr. gale PHYSICAL EXAM: VITAL SIGNS: Reviewed. GENERAL: Well-developed in no acute distress. HEENT: No sclera icterus. Extraocular movements grossly intact. Moist buccal mucosa. Head is atraumatic, normocephalic. ABDOMEN: Soft. Nondistended. NEUROLOGIC: Alert and oriented. Cranial nerves II through XII grossly intact. ASSESSMENT: 1. Rectus sheath hematoma likely secondary to patient's severe cough from her COPD. Hemoglobin stable. PLAN: -Patient can be discharged from surgical standpoint -Okay to resume aspirin and Plavix -Continue conservative management -No surgical intervention planned Physician Product Marketing Coordinator note has been reviewed by physician. Signing provider agrees with the documented findings, assessment, and plan of care. Objective - Vital Signs Vital signs: Vital Signs Temp 98.5 F 12/17/20 08:46 Pulse 102 H 12/17/20 08:46 Resp 18 12/17/20 08:46 BP 108/65 12/17/20 08:46 Pulse Ox 91 L 12/17/20 08:46 Intake & Output 12/16/20 12/17/20 12/17/20 18:59 06:59 18:59 Other: Voiding Method Bedside Commode Bedside Commode # Voids 4 # Bowel Movements 2 - Labs CBC & Chem 7: 12/17/20 08:22 12/16/20 06:31 Labs: Abnormal Lab Results - Last 24 Hours (Table) 12/16/20 12/16/20 12/17/20 Range/Units 06:31 15:00 08:22 WBC 15.04 H 16.7 H (4.50-10.00) X 10*3/uL RBC 3.70 L (4.10-5.20) X 10*6/uL MCV 101.4 H 102.3 H (80.0-97.0) fL MCH 33.0 H (27.0-32.0) pg RDW 14.6 H (11.5-14.5) % MPV 8.8 L (9.5-12.2) fL Absolute Nucleated RBC 0.02 H (0.00-0.00) X 10*3/uL NRBC/100 WBC Diff 0.1 H (0.0-0.0) /100 WBCS Urine Appearance Cloudy H (Clear) Urine Protein Trace H (Negative) Ur Leukocyte Esterase Small H (Negative) Ur Squamous Epith Cells 10 H (0-4) /hpf Urine Bacteria Rare H (None) /hpf Urine Mucus Rare H (None) /hpf Microbiology - Last 24 Hours (Table) 12/16/20 15:00 Urine Culture - Preliminary Urine,Voided 12/11/20 19:19 Blood Culture - Preliminary Blood No Growth after 120 hours 12/11/20 19:19 Blood Culture - Preliminary Blood No Growth after 120 hours
[2020-12-17 11:27] VITALS: RESP 20
[2020-12-17 11:36] VITALS: PULSE 94
--- NOTE | 2020-12-17 12:20 | P.PN ---
Subjective Progress Note Date: 12/17/20 On 12/17/2020 patient seen in follow-up on medical surgical floor, she is awake and alert, in no acute distress, she is on 4 L of oxygen and the pulse ox of 91%, afebrile, vital signs have been stable, blood pressure stable, she reports breathing continues to improve, no complaints of chest discomfort, and she is breathing overall much easier. Has been transitioned to oral prednisone, she is on oral Augmentin and breathing treatments. Signs have been stable, no acute events overnight. Her blood and urine cultures Show no growth thus far. Today's labs show white blood cell count is essentially stable at 16.7, hemoglobin is 13.5, urinalysis showed trace leuks, rare bacteria. Has been tolerating ambulation. She is being discharged home today. Objective - Vital Signs Vital signs: Vital Signs Temp 98.5 F 12/17/20 08:46 Pulse 94 12/17/20 11:35 Resp 20 12/17/20 11:35 BP 108/65 12/17/20 08:46 Pulse Ox 91 L 12/17/20 08:46 Intake & Output 12/16/20 12/17/20 12/17/20 18:59 06:59 18:59 Other: Voiding Method Bedside Commode Bedside Commode # Voids 4 # Bowel Movements 2 - Exam GENERAL EXAM: Alert, active, pleasant, 60-year-old white female, on 4 L of oxygen 91% comfortable in no apparent distress. HEAD: Normocephalic/atraumatic. EYES: Normal reaction of pupils, equal size. Conjunctiva pink, sclera white. NOSE: Clear with pink turbinates. THROAT: No erythema or exudates. NECK: No masses, no JVD, no thyroid enlargement, no adenopathy. CHEST: No chest wall deformity. Symmetrical expansion. LUNGS: Equal air entry with no crackles, wheeze, rhonchi or dullness. CVS: Regular rate and rhythm, normal S1 and S2, no gallops, no murmurs, no rubs ABDOMEN: Soft, nontender. No hepatosplenomegaly, normal bowel sounds, no guarding or rigidity. EXTREMITIES: No clubbing, no edema, no cyanosis, 2+ pulses and upper and lower extremities. MUSCULOSKELETAL: Muscle strength and tone normal. SPINE: No scoliosis or deformity SKIN: No rashes CENTRAL NERVOUS SYSTEM: Alert and oriented -3. No focal deficits, tone is normal in all 4 extremities. PSYCHIATRIC: Alert and oriented -3. Appropriate affect. Intact judgment and insight. - Labs CBC & Chem 7: 12/17/20 08:22 12/16/20 06:31 Labs: Abnormal Lab Results - Last 24 Hours (Table) 12/16/20 12/17/20 Range/Units 15:00 08:22 WBC 16.7 H (3.8-10.6) k/uL MCV 102.3 H (80.0-100.0) fL Urine Appearance Cloudy H (Clear) Urine Protein Trace H (Negative) Ur Leukocyte Esterase Small H (Negative) Ur Squamous Epith Cells 10 H (0-4) /hpf Urine Bacteria Rare H (None) /hpf Urine Mucus Rare H (None) /hpf Microbiology - Last 24 Hours (Table) 12/16/20 15:00 Urine Culture - Preliminary Urine,Voided 12/11/20 19:19 Blood Culture - Preliminary Blood No Growth after 120 hours 12/11/20 19:19 Blood Culture - Preliminary Blood No Growth after 120 hours Assessment and Plan Plan: 1 Acute exacerbation of COPD.patient had significant respiratory acidosis on her blood gases from few days back. The patient is on bronchodilators and steroids and she is completing course of Augmentin. Blood gases from yesterday showed improvement in her acid base status and she has well compensated hypercapnic res piratory failure. No signs of any acute respiratory acidosis at this point. 2 Ongoing tobacco use with nicotine addiction. 3 History of CAD with previous stent placement. 4 History of angina pectoris. 5 Obesity. 6 History of seizure disorder. 7 History of hypothyroidism. 8 History of hyperlipidemia. 9 Left carotid artery stenosis. Plan: Patient's reading has significantly improved She has been transitioned to oral prednisone, remains on oral antibiotics and bronchodilators No acute events overnight She is tolerating ambulation Vital signs have been stable She is being discharged home today She is stable for discharge from pulmonary perspective Follow up with Dr. Marques in the office in 7-10 days Patient is being discharged home on a prednisone taper and she will complete outpatient course of Augmentin and bronchodilators She will be going home on home oxygen as well I performed a history & physical examination of the patient and discussed their management with my nurse practitioner, Alexandra Garcia. I reviewed the nurse practitioner's note and agree with the documented findings and plan of care. Lung sounds are positive for clear breath sounds throughout the lung pierson. The findings and the impression was discussed with the patient. I attest to the documentation by the nurse practitioner. Time with Patient: Less than 30
[2020-12-18 02:47] LABS: Folate, Serum 4.6 ng/mL (4.40-31.00)
== END 2020-12-17 13:46 | disposition home or self-care (01) | DRG 190 ==
LOC: EC 18:51 → 4SSUR 23:06
PROVIDERS: ADMIT Family Medicine; ATTEND Family Medicine
DX: J44.1 Chronic obstructive pulmonary disease with (acute) exacerbation (principal); J96.21 Acute and chronic respiratory failure with hypoxia; J96.22 Acute and chronic respiratory failure with hypercapnia; G93.41 Metabolic encephalopathy; J98.11 Atelectasis; E87.1 Hypo-osmolality and hyponatremia; E87.2 Acidosis; F11.20 Opioid dependence, uncomplicated; J20.9 Acute bronchitis, unspecified; J44.0 Chronic obstructive pulmonary disease with (acute) lower respiratory infection; F17.210 Nicotine dependence, cigarettes, uncomplicated; Z71.6 Tobacco abuse counseling; I25.10 Atherosclerotic heart disease of native coronary artery without angina pectoris; I65.22 Occlusion and stenosis of left carotid artery; M79.81 Nontraumatic hematoma of soft tissue; G40.909 Epilepsy, unspecified, not intractable, without status epilepticus; R00.0 Tachycardia, unspecified; F32.9 Major depressive disorder, single episode, unspecified; D72.829 Elevated white blood cell count, unspecified; E03.9 Hypothyroidism, unspecified; Z20.822 Contact with and (suspected) exposure to COVID-19; E66.9 Obesity, unspecified; Z68.32 Body mass index [BMI] 32.0-32.9, adult; T42.6X6A Underdosing of other antiepileptic and sedative-hypnotic drugs, initial encounter; Z79.82 Long term (current) use of aspirin; E78.5 Hyperlipidemia, unspecified; Z79.890 Hormone replacement therapy; Z79.899 Other long term (current) drug therapy; Z79.02 Long term (current) use of antithrombotics/antiplatelets; Z90.710 Acquired absence of both cervix and uterus; Z79.51 Long term (current) use of inhaled steroids; Z95.5 Presence of coronary angioplasty implant and graft; Z99.81 Dependence on supplemental oxygen; Z80.9 Family history of malignant neoplasm, unspecified; Z91.128 Patient's intentional underdosing of medication regimen for other reason
CPT/HCPCS: 36415; 36600; 71046; 74177; 80053; 80177; 81001; 82607; 82746; 82805; 83605; 83735; 84439; 84443; 84484; 85025; 85027; 85379; 85610; 85730; 87040; 87086; 87635; 93005; 94640; 94760; 96361; 96374; 96375; 99285

== ENCOUNTER 2021-05-23 14:01 | Emergency (ER) | payer MEDICARE ==
[2021-05-23 14:05] VITALS: RESP 18; TEMP 97.8
[2021-05-23] MEDS ORDERED: ONDANSETRON 4 MG/2 ML VIAL IVP STA (14:38)
[2021-05-23] MEDS ORDERED: SODIUM CHLORIDE 0.9% 1,000 ML IV STA ×2 (14:38→17:34)
[2021-05-23 15:19] LABS: Albumin 3.9 g/dL (3.5-5.0); Calcium 8.5 mg/dL (8.4-10.2); Magnesium 2.1 mg/dL (1.6-2.3); Potassium 4.1 mmol/L (3.5-5.1); Total Bilirubin 0.5 mg/dL (0.2-1.3); Total Protein 7.2 g/dL (6.3-8.2)
[2021-05-23 15:26] LABS: Basophils % (A) 0 %; Eosinophils % (A) 0 %; HGB 13.4 gm/dL (11.4-16.0); Lymphocytes # (A) 1.4 k/uL (1.0-4.8); Lymphocytes % (A) 15 %; MCH 32.4 pg (25.0-35.0); MCHC 32.6 g/dL (31.0-37.0); MCV 99.4 fL (80.0-100.0); Macrocytosis Slight; Mean Platelet Volume 6.9; Monocytes # (A) 0.4 k/uL (0-1.0); Monocytes % (A) 4 %; Neutrophils # (A) 7.1 k/uL (1.3-7.7); Neutrophils % (A) 79 %; Platelet Count 348 k/uL (150-450); RBC 4.13 m/uL (3.80-5.40); RDW 15.5 % (11.5-15.5)
[2021-05-23 16:08] LABS: Appearance,Urine Cloudy (Clear); Bacteria,Urine Rare /hpf; Bilirubin,Urine Negative (Negative); Blood,Urine Negative (Negative); Color,Urine Yellow; Glucose,Urine (UA) Negative (Negative); Ketones,Urine Negative (Negative); Leukocyte Esterase,Urine Negative (Negative); Mucus,Urine Rare /hpf; Nitrite,Urine Negative (Negative); PH, Urine 6.5 (5.0-8.0); Protein,Urine 1+ (Negative); RBC,Urine 6 /hpf (0-5); Specific Gravity,Urine 1.024 (1.001-1.035); Squamous Epithelial Cell,Urine 31 /hpf (0-4); WBC,Urine 4 /hpf (0-5)
[2021-05-23] MEDS ORDERED: ONDANSETRON 4 MG ODT STARTER PACK 2 TAB BTL PO STA (17:08)
--- NOTE | 2021-05-23 17:08 | ED ---
General Adult HPI - General Source: patient Mode of arrival: wheelchair Limitations: no limitations <Duglas Lino - Last Filed: 05/23/21 17:05> <Hilario Carlisle - Last Filed: 05/23/21 18:40> - General Chief complaint: Nausea/Vomiting/Diarrhea Stated complaint: vomitting, stomach ache Time Seen by Provider: 05/23/21 14:28 - History of Present Illness Initial comments: 60-year-old female with a past medical history of asthma/COPD on oxygen, CAD, neuropathy, seizure disorder, dementia presents to the emergency room for a chief complaint of nausea vomiting. Daughter states that patient has had nausea vomiting since this morning around 5 AM. She has also had a few bouts of diarrhea. Daughter was concerned because patient's confusion was a little bit worse than normal. She has baseline confusion and is being worked up by a neurologist. This has been ongoing for several months. She has not had any fevers at home. No cough or shortness of breath. Abdominal pain associated. Patient has no other complaints at this time including shortness of breath, chest pain, abdominal pain, nausea or vomiting, headache, or visual changes. (Duglas Lino) - Related Data Home Medications Medication Instructions Recorded Confirmed Escitalopram [Lexapro] 40 mg PO DAILY 11/28/17 12/11/20 levETIRAcetam [Keppra] 500 mg PO DAILY 07/18/18 12/11/20 Doxepin [SINEquan] 10 mg PO HS 02/27/19 12/11/20 Budesonide-Formot 160-4.5 Mcg 2 puff INHALATION RT-BID PRN 04/24/19 12/11/20 [Symbicort 160-4.5 Mcg Inhaler] Clopidogrel [Plavix] 75 mg PO DAILY 09/11/19 12/11/20 Aspirin [Children's Aspirin] 81 mg PO DAILY 09/25/19 12/11/20 Albuterol Nebulized [Ventolin 1.25 mg INHALATION RT-TID PRN 08/20/20 12/11/20 Nebulized] Atorvastatin [Lipitor] 80 mg PO DAILY 08/20/20 12/11/20 Levothyroxine Sodium 200 mcg PO DAILY 08/20/20 12/11/20 Nitroglycerin Sl Tabs [Nitrostat] 0.4 mg SL Q5M PRN 08/20/20 12/11/20 cloNIDine HCL [Catapres] 0.2 mg PO BID 08/20/20 12/11/20 Buprenorphine HCl/Naloxone HCl 1 tab PO DAILY 08/21/20 12/11/20 [Zubsolv 1.4-0.36 mg Tablet Sl] levETIRAcetam [Keppra] 1,500 mg PO HS 12/11/20 12/11/20 Previous Rx's Medication Instructions Recorded Amoxic-Pot Clav 875-125Mg 1 each PO Q12HR #10 tab 12/17/20 [Augmentin 875-125] Gabapentin [Neurontin] 100 mg PO TID #90 tab 12/17/20 Ipratropium-Albuterol Nebulize 3 ml INHALATION RT-QID #100 each 12/17/20 [Duoneb 0.5 mg-3 mg/3 ml Soln] Nystatin 100,000 Unit/ml Susp 500,000 unit PO QID #200 ml 12/17/20 [Mycostatin Oral Susp] predniSONE [Deltasone] 40 mg PO DAILY #5 tab 12/17/20 Review of Systems ROS Other: All systems not noted in ROS Statement are negative. <Duglas Lino - Last Filed: 05/23/21 17:05> ROS Other: All systems not noted in ROS Statement are negative. <Hilario Carlisle - Last Filed: 05/23/21 18:40> ROS Statement: Those systems with pertinent positive or pertinent negative responses have been documented in the HPI. Past Medical History Past Medical History: Asthma, Coronary Artery Disease (CAD), Chest Pain / Angina, COPD, Seizure Disorder, Thyroid Disorder Additional Past Medical History / Comment(s): SLIGHT COPD. 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 Leftt carotid blockage History of Any Multi-Drug Resistant Organisms: None Reported Past Surgical History: Heart Catheterization, Heart Catheterization With Stent, Hysterectomy, Orthopedic Surgery Additional Past Surgical History / Comment(s): RT ROTATOR CUFF REPAIR, CYSTS REMOVED FROM UNDER ARMS AND HANDS, 4 stents, 07/18/18 left subclavian stent. Past Anesthesia/Blood Transfusion Reactions: No Reported Reaction Date of Last Stent Placement:: Nov 2017 Past Psychological History: Depression Smoking Status: Current every day smoker Past Alcohol Use History: None Reported Past Drug Use History: None Reported - Past Family History Mother Family Medical History: Cancer Sister(s) Family Medical History: Cancer <Duglas Lino - Last Filed: 05/23/21 17:05> General Exam Limitations: no limitations General appearance: alert, in no apparent distress Head exam: Present: atraumatic Eye exam: Present: normal appearance, PERRL, EOMI. Absent: scleral icterus, conjunctival injection ENT exam: Present: normal exam, mucous membranes moist Neck exam: Present: normal inspection, full ROM. Absent: tenderness Respiratory exam: Present: normal lung sounds bilaterally. Absent: respiratory distress, wheezes Cardiovascular Exam: Present: regular rate, normal rhythm, normal heart sounds GI/Abdominal exam: Present: soft, normal bowel sounds. Absent: distended, tenderness Neurological exam: Present: alert <Duglas Lino - Last Filed: 05/23/21 17:05> Course Vital Signs 05/23/21 05/23/21 05/23/21 14:03 15:53 17:21 Temperature 97.8 F Pulse Rate 73 69 68 Pulse Rate [ Sitting Pulse Oximetery] Pulse Rate [ Standing Pulse Oximetery] Pulse Rate [ Supine Pulse Oximetery] Respiratory 18 18 18 Rate Blood Pressure 108/67 Blood Pressure [Sitting] Blood Pressure [Standing] Blood Pressure [Supine] O2 Sat by Pulse 99 99 Oximetry 05/23/21 05/23/21 05/23/21 17:39 18:08 18:22 Temperature Pulse Rate Pulse Rate [ 73 Sitting Pulse Oximetery] Pulse Rate [ 91 Standing Pulse Oximetery] Pulse Rate [ 66 Supine Pulse Oximetery] Respiratory Rate Blood Pressure 90/40 90/58 Blood Pressure 85/46 [Sitting] Blood Pressure 84/55 [Standing] Blood Pressure 96/57 [Supine] O2 Sat by Pulse Oximetry EKG Findings - EKG Results: EKG: interpreted by ERMD, sinus rhythm (Sinus rhythm a 69. We'll 157 QRS duration 86 QT since QTC 412/431 low-voltage nonspecific T-wave configuration some artifact present.) <Hilario Carlisle - Last Filed: 05/23/21 18:40> Medical Decision Making - Lab Data Result diagrams: 05/23/21 14:58 05/23/21 14:58 <Duglas Lino - Last Filed: 05/23/21 17:05> - Lab Data Result diagrams: 05/23/21 14:58 05/23/21 14:58 <Hilario Carlisle - Last Filed: 05/23/21 18:40> - Medical Decision Making Vitals are stable. Patient wears home oxygen. Abdominal exam unremarkable. No tenderness. CBC CMP unremarkable. Urinalysis does not show any evidence of infection. Ketones are negative. COVID-19 is negative. Patient was given fluids and Zofran with with her nausea. No episodes of vomiting in the emergency room. At this time patient is stable for discharge home. She will follow-up with her doctor. She will return for any worsening symptoms. She does live with a significant other who can help her around the house. (Duglas Lino) Patient did have repeated low blood pressure readings but her normal blood pressure is low 90s over 60s numbers I did "the family and the patient appeared to be her normal. Patient is asymptomatic able ably without difficulty no lightheadedness or dizziness. We did have a long discussion regarding causes of low blood pressure and dehydration he does admit that she perhaps was not drinking as much fluid as usual we did discuss clinical signs of dehydration. Patient will be discharged at this time and follow-up with her doctor she is encouraged to return when necessary we did discuss return parameters. (Hilario Carlisle) - Lab Data Lab Results 05/23/21 05/23/21 05/23/21 Range/Units 14:58 14:58 15:28 WBC 9.0 (3.8-10.6) k/uL RBC 4.13 (3.80-5.40) m/uL Hgb 13.4 (11.4-16.0) gm/dL Hct 41.0 (34.0-46.0) % MCV 99.4 (80.0-100.0) fL MCH 32.4 (25.0-35.0) pg MCHC 32.6 (31.0-37.0) g/dL RDW 15.5 (11.5-15.5) % Plt Count 348 (150-450) k/uL MPV 6.9 Neutrophils % 79 % Lymphocytes % 15 % Monocytes % 4 % Eosinophils % 0 % Basophils % 0 % Neutrophils # 7.1 (1.3-7.7) k/uL Lymphocytes # 1.4 (1.0-4.8) k/uL Monocytes # 0.4 (0-1.0) k/uL Eosinophils # 0.0 (0-0.7) k/uL Basophils # 0.0 (0-0.2) k/uL Macrocytosis Slight Sodium 137 (137-145) mmol/L Potassium 4.1 (3.5-5.1) mmol/L Chloride 102 (98-107) mmol/L Carbon Dioxide 25 (22-30) mmol/L Anion Gap 10 mmol/L BUN 10 (7-17) mg/dL Creatinine 0.94 (0.52-1.04) mg/dL Est GFR (CKD-EPI)AfAm 76 (>60 ml/min/1.73 sqM) Est GFR (CKD-EPI)NonAf 66 (>60 ml/min/1.73 sqM) Glucose 147 H (74-99) mg/dL Calcium 8.5 (8.4-10.2) mg/dL Magnesium 2.1 (1.6-2.3) mg/dL Total Bilirubin 0.5 (0.2-1.3) mg/dL AST 18 (14-36) U/L ALT 11 (4-34) U/L Alkaline Phosphatase 112 (38-126) U/L Total Protein 7.2 (6.3-8.2) g/dL Albumin 3.9 (3.5-5.0) g/dL Lipase 60 (23-300) U/L Urine Color Yellow Urine Appearance Cloudy H (Clear) Urine pH 6.5 (5.0-8.0) Ur Specific [place] 1.024 (1.001-1.035) Urine Protein 1+ H (Negative) Urine Glucose (UA) Negative (Negative) Urine Ketones Negative (Negative) Urine Blood Negative (Negative) Urine Nitrite Negative (Negative) Urine Bilirubin Negative (Negative) Urine Urobilinogen 4.0 (<2.0) mg/dL Ur Leukocyte Esterase Negative (Negative) Urine RBC 6 H (0-5) /hpf Urine WBC 4 (0-5) /hpf Ur Squamous Epith Cells 31 H (0-4) /hpf Urine Bacteria Rare H (None) /hpf Urine Mucus Rare H (None) /hpf Coronavirus (PCR) (Not Detectd) 05/23/21 Range/Units 15:28 WBC (3.8-10.6) k/uL RBC (3.80-5.40) m/uL Hgb (11.4-16.0) gm/dL Hct (34.0-46.0) % MCV (80.0-100.0) fL MCH (25.0-35.0) pg MCHC (31.0-37.0) g/dL RDW (11.5-15.5) % Plt Count (150-450) k/uL MPV Neutrophils % % Lymphocytes % % Monocytes % % Eosinophils % % Basophils % % Neutrophils # (1.3-7.7) k/uL Lymphocytes # (1.0-4.8) k/uL Monocytes # (0-1.0) k/uL Eosinophils # (0-0.7) k/uL Basophils # (0-0.2) k/uL Macrocytosis Sodium (137-145) mmol/L Potassium (3.5-5.1) mmol/L Chloride (98-107) mmol/L Carbon Dioxide (22-30) mmol/L Anion Gap mmol/L BUN (7-17) mg/dL Creatinine (0.52-1.04) mg/dL Est GFR (CKD-EPI)AfAm (>60 ml/min/1.73 sqM) Est GFR (CKD-EPI)NonAf (>60 ml/min/1.73 sqM) Glucose (74-99) mg/dL Calcium (8.4-10.2) mg/dL Magnesium (1.6-2.3) mg/dL Total Bilirubin (0.2-1.3) mg/dL AST (14-36) U/L ALT (4-34) U/L Alkaline Phosphatase (38-126) U/L Total Protein (6.3-8.2) g/dL Albumin (3.5-5.0) g/dL Lipase (23-300) U/L Urine Color Urine Appearance (Clear) Urine pH (5.0-8.0) Ur Specific [place] (1.001-1.035) Urine Protein (Negative) Urine Glucose (UA) (Negative) Urine Ketones (Negative) Urine Blood (Negative) Urine Nitrite (Negative) Urine Bilirubin (Negative) Urine Urobilinogen (<2.0) mg/dL Ur Leukocyte Esterase (Negative) Urine RBC (0-5) /hpf Urine WBC (0-5) /hpf Ur Squamous Epith Cells (0-4) /hpf Urine Bacteria (None) /hpf Urine Mucus (None) /hpf Coronavirus (PCR) Not Detected (Not Detectd) Disposition Is patient prescribed a controlled substance at d/c from ED?: No Time of Disposition: 17:07 <Duglas Lino - Last Filed: 05/23/21 17:05> Is patient prescribed a controlled substance at d/c from ED?: No <Hilario Carlisle - Last Filed: 05/23/21 18:40> Clinical Impression: Nausea vomiting and diarrhea, Dehydration, Hypotension, Gastroenteritis Disposition: HOME SELF-CARE Condition: Good Instructions (If sedation given, give patient instructions): Acute Nausea and Vomiting (ED), Acute Diarrhea (ED), Dehydration (ED) Additional Instructions: Take Zofran as needed. Give small sips of fluid. Follow-up with primary care. Return to the emergency room for any worsening symptoms. Referrals: Jose F Mcwilliams MD [Primary Care Provider] - 1-2 days
[2021-05-23 18:24] VITALS: BP 96/57; PULSE 66
== END 2021-05-23 19:03 | disposition home or self-care (01) ==
LOC: EC 14:01
DX: K52.9 Noninfective gastroenteritis and colitis, unspecified (principal); E86.0 Dehydration; I95.9 Hypotension, unspecified; I25.10 Atherosclerotic heart disease of native coronary artery without angina pectoris; J44.9 Chronic obstructive pulmonary disease, unspecified; E07.9 Disorder of thyroid, unspecified; F32.A Depression, unspecified; F17.200 Nicotine dependence, unspecified, uncomplicated; Z20.822 Contact with and (suspected) exposure to COVID-19; Z79.02 Long term (current) use of antithrombotics/antiplatelets; Z79.82 Long term (current) use of aspirin; Z90.49 Acquired absence of other specified parts of digestive tract
CPT/HCPCS: 99285; 96374; 96361 ×2; 36415; 93005; 80053; 83690; 83735; 85025; 81001; 87635; J2405; S0119

== ENCOUNTER → 2021-06-01 | Outpatient (CLI) | payer MEDICARE ==
[2021-06-01 19:09] LABS: Basophils # (A) 0.06 X 10*3/uL (0.00-0.10); Basophils % (A) 0.7 %; Eosinophils # (A) 0.15 X 10*3/uL (0.04-0.35); Eosinophils % (A) 1.8 %; HCT 42.8 % (37.2-46.3); HGB 12.9 g/dL (12.0-15.0); Immature Grans, Automated 0.4 %; Lymphocytes # (A) 1.96 X 10*3/uL (0.90-5.00); Lymphocytes % (A) 23.4 %; MCH 30.6 pg (27.0-32.0); MCHC 30.1 g/dL (32.0-37.0); MCV 101.4 fL (80.0-97.0); Mean Platelet Volume 9.2 fL (9.5-12.2); Monocytes # (A) 0.64 X 10*3/uL (0.20-1.00); Monocytes % (A) 7.6 %; NRBC Per 100 WBC 0 /100 WBCS (0.0-0.0); Neutrophils # (A) 5.55 X 10*3/uL (1.80-7.70); Neutrophils % (A) 66.1 %; Platelet Count 408 X 10*3/uL (140-440); RBC 4.22 X 10*6/uL (4.10-5.20); RDW 15.3 % (11.5-14.5); WBC 8.39 X 10*3/uL (4.50-10.00)
[2021-06-01 19:30] LABS: Uric Acid 4.8 mg/dL (2.9-7.7)
[2021-06-01 20:07] LABS: Erythrocyte Sedimentation Rate 40 mm/Hr (0-30)
[2021-06-01 20:22] LABS: C Reactive Protein 2.1 mg/dL (0.00-0.80)
== END | disposition home or self-care (01) ==
LOC: LABWHC1 12:21
PROVIDERS: ATTEND Orthopaedic Surgery
DX: M65.871 Other synovitis and tenosynovitis, right ankle and foot (principal)
CPT/HCPCS: 36415; 84550; 85025; 85652; 86140

== ENCOUNTER 2021-06-18 16:27 | Inpatient (IN) | payer MEDICARE ==
[2021-06-18] MEDS ORDERED: SODIUM CHLORIDE 0.9% 1,000 ML IV ONE (16:47)
[2021-06-18] MEDS ORDERED: IPRATROPIUM-ALBUTEROL 3 ML NEB INHALATION STA (16:48)
[2021-06-18] MEDS ORDERED: methylPREDNISolone SOD SUCCI 125 MG/2 ML VIAL IV STA (16:48)
[2021-06-18 16:50] LABS: Glucose,Whole Blood 94 mg/dL (75-99)
[2021-06-18 17:16] LABS: Lactic Acid, Venous 0.9 mmol/L (0.7-2.0)
[2021-06-18 17:18] LABS: Basophils # (A) 0.1 k/uL (0-0.2); Basophils % (A) 1 %; Eosinophils # (A) 0.2 k/uL (0-0.7); Eosinophils % (A) 3 %; Hypochromasia Moderate; Lymphocytes # (A) 2.3 k/uL (1.0-4.8); Lymphocytes % (A) 26 %; MCH 30.9 pg (25.0-35.0); MCHC 30.3 g/dL (31.0-37.0); Macrocytosis Slight; Monocytes # (A) 0.4 k/uL (0-1.0); Monocytes % (A) 5 %; Neutrophils # (A) 5.4 k/uL (1.3-7.7); Neutrophils % (A) 63 %; Platelet Count 274 k/uL (150-450); RBC 4.22 m/uL (3.80-5.40); RDW 15.2 % (11.5-15.5); WBC 8.7 k/uL (3.8-10.6)
[2021-06-18 17:23] LABS: ALT 11 U/L (4-34); AST 24 U/L (14-36); African American GFR (CKD) 65 (>60 ml/min/1.73 sqM); Alcohol <10 mg/dL; Alkaline Phosphatase 116 U/L (38-126); Anion Gap 6 mmol/L; Blood Urea Nitrogen 12 mg/dL (7-17); C Reactive Protein 2.3 mg/dL (<1.0); Calcium 8.8 mg/dL (8.4-10.2); Carbon Dioxide 27 mmol/L (22-30); Chloride 103 mmol/L (98-107); Glucose 89 mg/dL (74-99); INR 0.9 (<1.2); Non-African American GFR(CKD) 57 (>60 ml/min/1.73 sqM); Partial Thromboplastin Time 24.8 sec (22.0-30.0); Potassium 4.7 mmol/L (3.5-5.1); Prothrombin Time 10.3 sec (9.0-12.0); Sodium 136 mmol/L (137-145); Total Bilirubin 0.4 mg/dL (0.2-1.3); Total Protein 7.3 g/dL (6.3-8.2)
--- NOTE | 2021-06-18 17:28 | CT ---
EXAMINATION TYPE: CT brain wo con CT DLP: 1059.4 mGycm, Automated exposure control for dose reduction was used. DATE OF EXAM: 06/18/2021 5:20 PM COMPARISON: CT brain 02/27/2019 90 CLINICAL INDICATION:Female, 60 years old with history of Altered mental status. TECHNIQUE: Brain: Multiple axial CT images of the brain were obtained without IV contrast. FINDINGS: Brain: Extra-axial spaces: No abnormal extra-axial fluid collections. Ventricular system: Within normal limits Cerebral parenchyma: No acute intraparenchymal hemorrhage or mass effect. The hilton-white junction is well differentiated. Scattered hypoattenuating areas are seen within the white matter. Cerebellum: Unremarkable. Mass effect: No evidence of midline shift. Intracranial vasculature: unremarkable Soft tissues: Normal. Calvarium/osseous structures: No depressed skull fracture. Paranasal sinuses and mastoid air cells: Clear Visualized orbits: Right aphakia IMPRESSION: 1. No acute intracranial process. 2. Nonspecific white matter changes, likely secondary to chronic small vessel ischemic disease.
--- NOTE | 2021-06-18 17:29 | XR ---
EXAMINATION TYPE: XR chest 2V DATE OF EXAM: 06/18/2021 5:08 PM COMPARISON:Chest radiographs from 12/12/2019 TECHNIQUE: XR chest 2V Frontal and lateral views of the chest. CLINICAL INDICATION:Female, 60 years old with history of altered mental status; FINDINGS: Lungs/Pleura: There is no evidence of pleural effusion, focal consolidation, or pneumothorax. Pulmonary vascularity: Unremarkable. Heart/mediastinum: Cardiomediastinal silhouette is unremarkable. Musculoskeletal: No acute osseous pathology. IMPRESSION: No acute cardiopulmonary disease/process or change from prior.
--- NOTE | 2021-06-18 17:31 | XR ---
EXAMINATION TYPE: XR ankle complete RT DATE OF EXAM: 06/18/2021 5:08 PM INDICATION: Patient age:Female; 60 years old; Reason for study: pain, questionable gout; COMPARISON: None TECHNIQUE: The right ankle is imaged in 3 projections. FINDINGS: Acute fracture through the posterior tibia. Additional lucency to the medial malleolus is also suspic ious for underlying fracture. There is soft tissue swelling on the ankle. IMPRESSION: Acute fracture of the right posterior tibia and lucency through the medial malleolus also suspicious for nondisplaced occult fracture.
[2021-06-18 18:05] LABS: VBG PH 7.25 (7.31-7.41)
[2021-06-18] MEDS ORDERED: ALBUTEROL NEBULIZED 2.5 MG/3 ML INHALATION PRN ×2 (19:04)
--- NOTE | 2021-06-18 19:08 | XR ---
EXAMINATION TYPE: XR tibia fibula RT DATE OF EXAM: 06/18/2021 6:10 PM INDICATION: Patient age:Female; 60 years old; Reason for study: fracture medial malleolus; COMPARISON: Extremity radiograph same day TECHNIQUE: The right tibia/fibula was examined in AP and lateral projections. FINDINGS: Acute fracture through the posterior tibia and suspected fracture of the medial malleolus w hich is nondisplaced. There is soft tissue swelling. The remainder of the osseous structures appear i ntact. IMPRESSION: No demonstration of right posterior tibial fracture with suspected nondisplaced fracture of the media l malleolus.
[2021-06-18] MEDS ORDERED: NALOXONE 0.4 MG/ML 1 ML VIAL IV PRN (19:21)
[2021-06-18] MEDS ORDERED: ONDANSETRON 4 MG/2 ML VIAL IVP PRN (19:21)
[2021-06-18] MEDS: IPRATROPIUM-ALBUTEROL 3 ML NEB INHALATION SCH (19:30)
[2021-06-18] MEDS ORDERED: SODIUM CHLORIDE 0.9% 1,000 ML IV STA (19:33)
[2021-06-18] MEDS: SODIUM CHLORIDE 0.9% 1,000 ML IV SCH ×2 (19:36→19:42)
[2021-06-18 20:15] LABS: Glucose,Whole Blood 112 mg/dL (75-99)
[2021-06-18] MEDS: cloNIDine HCL 0.2 MG TAB PO SCH (21:28)
[2021-06-18] MEDS: ESCITALOPRAM 20 MG TAB PO SCH (21:37)
[2021-06-18] MEDS: GABAPENTIN 300 MG CAP PO SCH (21:37)
[2021-06-18] MEDS: DOXEPIN 10 MG CAP PO SCH (21:38)
--- NOTE | 2021-06-18 22:35 | ED ---
General Adult HPI - General Chief complaint: Altered Mental Status Stated complaint: AMS Time Seen by Provider: 06/18/21 16:40 Source: patient, family, RN notes reviewed, old records reviewed Mode of arrival: ambulatory Limitations: no limitations - History of Present Illness Initial comments: Patient is a 60-year-old female with past medical history remarkable for COPD on 2 L nasal cannula, hypertension, seizure disorder, thyroid disease presents in this department complaining of difficulty in breathing, fatigue. She recently was discharged from the hospital. She is currently undergoing treatment for gout in her right ankle. She has no abdominal pain, nausea, vomiting. He is endorsing shortness of breath. Denies any chest pain. His no other acute concerns at this time. Patient is shaking. She is mildly. Presents over concern for her breathing. Patient is requiring 4 L nasal cannula at this time to maintain adequate saturations. She is somewhat tired and lethargic. Family assist with history. - Related Data Home Medications Medication Instructions Recorded Confirmed Escitalopram [Lexapro] 20 mg PO BID 11/28/17 06/18/21 Doxepin [SINEquan] 10 mg PO HS 02/27/19 06/18/21 Budesonide-Formot 160-4.5 Mcg 2 puff INHALATION RT-BID 04/24/19 06/18/21 [Symbicort 160-4.5 Mcg Inhaler] Clopidogrel [Plavix] 75 mg PO DAILY 09/11/19 06/18/21 Aspirin [Children's Aspirin] 81 mg PO DAILY 09/25/19 06/18/21 Levothyroxine Sodium 200 mcg PO DAILY 08/20/20 06/18/21 Nitroglycerin Sl Tabs [Nitrostat] 0.4 mg SL Q5M PRN 08/20/20 06/18/21 cloNIDine HCL [Catapres] 0.2 mg PO BID 08/20/20 06/18/21 levETIRAcetam [Keppra] 1,500 mg PO BID 12/11/20 06/18/21 Albuterol Inhaler [Ventolin Hfa 2 puff INHALATION RT-QID PRN 06/18/21 06/18/21 Inhaler] Albuterol Nebulized [Ventolin 2.5 mg INHALATION RT-Q6H PRN 06/18/21 06/18/21 Nebulized] Gabapentin 600 mg PO TID 06/18/21 06/18/21 Indomethacin [Indocin ER] 75 mg PO BID PRN 06/18/21 06/18/21 Ipratropium-Albuterol Nebulize 3 ml INHALATION RT-Q6H PRN 06/18/21 06/18/21 [Duoneb 0.5 mg-3 mg/3 ml Soln] Allergies Allergy/AdvReac Type Severity Reaction Status Date / Time No Known Allergies Allergy Verified 06/18/21 18:37 Review of Systems ROS Statement: Those systems with pertinent positive or pertinent negative responses have been documented in the HPI. Review of Systems: CONST: Denies fever EYES: Denies blurry vision ENT: Denies nasal congestion C/V: Denies Chest pain RESP: Endorses shortness of breath GI: Denies abdominal pain : Denies dysuria SKIN: Denies rash. MSK: Denies joint pain. NEURO: Denies headache ROS Other: All systems not noted in ROS Statement are negative. Past Medical History Past Medical History: Asthma, Coronary Artery Disease (CAD), Chest Pain / Angina, COPD, Seizure Disorder, Thyroid Disorder Additional Past Medical History / Comment(s): SLIGHT COPD. 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 Leftt carotid blockage History of Any Multi-Drug Resistant Organisms: None Reported Past Surgical History: Heart Catheterization, Heart Catheterization With Stent, Hysterectomy, Orthopedic Surgery Additional Past Surgical History / Comment(s): RT ROTATOR CUFF REPAIR, CYSTS REMOVED FROM UNDER ARMS AND HANDS, 4 stents, 07/18/18 left subclavian stent. Past Anesthesia/Blood Transfusion Reactions: No Reported Reaction Date of Last Stent Placement:: Nov 2017 Past Psychological History: Depression Smoking Status: Current every day smoker Past Alcohol Use History: None Reported Past Drug Use History: None Reported - Past Family History Mother Family Medical History: Cancer Sister(s) Family Medical History: Cancer General Exam - General Exam Comments Initial Comments: General: Appears in mild respiratory distress. HEAD: Normal with no signs of head trauma. EYES: PERRLA, EOMI, conjunctiva normal, no discharge. ENT: Hearing grossly intact, normal oropharynx. RESPIRATORY: Reduced breath sounds bilaterally. Very very mild wheeze, with poor air movement bilaterally. No rhonchi appreciated. Mildly tachypneic. Low oxygen saturations on home nasal cannula settings. C/V: Regular rate and rhythm. S1 and S2 auscultated, no edema, peripheral pulses 2+ and intact throughout ABD: Abd is soft, nontender, nondistended EXT: Swelling and erythema over the right ankle and foot, currently being treated for gout. SKIN: No rashes or lesions observed on exposed skin. NEURO: Alert and oriented 4. No focal deficits. GCS of 15. NIH of 0. Limitations: no limitations Course Vital Signs 06/18/21 06/18/21 06/18/21 16:33 16:54 17:34 Temperature 97.8 F Pulse Rate 97 84 Respiratory 16 18 Rate Blood Pressure 106/61 O2 Sat by Pulse 77 L 92 L Oximetry 06/18/21 06/18/21 06/18/21 17:35 17:43 19:26 Temperature Pulse Rate 86 64 68 Respiratory 18 20 14 Rate Blood Pressure 126/83 97/56 O2 Sat by Pulse 94 L 90 L Oximetry 06/18/21 06/18/21 06/18/21 19:32 19:40 20:00 Temperature Pulse Rate 70 70 74 Respiratory 14 Rate Blood Pressure 96/57 O2 Sat by Pulse 88 L Oximetry 06/18/21 06/18/21 21:00 21:40 Temperature Pulse Rate 92 Respiratory 18 18 Rate Blood Pressure 122/64 121/74 O2 Sat by Pulse 90 L 89 L Oximetry Medical Decision Making - Medical Decision Making Based on the patient's presentation and physical exam, I'm concerned for her current altered mental status and respiratory distress. Likely secondary to COPD exacerbation with cannot rule out other etiology. Therefore we'll obtain a broad workup. Patient will be Mr. and IV steroids as well as breathing treatments. Family was in agreement this plan. Based on the exam, we'll obtain x-rays of the right ankle and leg. EKG shows no signs of acute ischemia. CT brain shows no acute intracranial pr ocess. Chest x-ray shows no acute cardiopulmonary process. Ankle x-ray shows a possible acute fracture the right posterior tibia nondisplaced fracture of the medial malleolus. There is a nondisplaced fracture of the medial malleolus still seen on tib-fib x-ray but no right posterior tibial fracture. While waiting for labs, I did speak with the family as well as the patient regarding his x-ray findings. They stated that these findings are known. They were seen by Dr. Anderson of orthopedics who worked him up for possible fracture, and they determined it was a gout flare not a fracture. Therefore I will not consult orthopedics at this time as these are old findings. Laboratory studies were remarkable for a VBG with elevated CO2 level is 65. Troponin is negative. The remainder of the labs are unremarkable. Urinalysis is still pending at this time. On reevaluation, patient's breathing still reducible bilateral lung pierson. I would like to start the patient on BiPAP with breathing treatments. Family and patient was in agreement this plan. I discussed with them her confusion is likely secondary to hypercapnia. She'll be admitted to the hospital for further management. On reevaluation after BiPAP administration, patient is doing improved. She is more alert and oriented. She is feeling better. Lungs are moving air better. Pulmonology will be consulted for the patient COPD exacerbation and acute on chronic hypoxic respiratory failure as well as acute hypercapnic respiratory failure. I spoke with the admitting team under Dr. Mcwilliams who accepted the patient. Patient was admitted in serious condition on BiPAP. - Lab Data Result diagrams: 06/18/21 16:52 06/18/21 16:52 Lab Results 06/18/21 06/18/21 06/18/21 Range/Units 16:48 16:52 16:52 WBC 8.7 (3.8-10.6) k/uL RBC 4.22 (3.80-5.40) m/uL Hgb 13.0 (11.4-16.0) gm/dL Hct 43.0 (34.0-46.0) % MCV 102.0 H (80.0-100.0) fL MCH 30.9 (25.0-35.0) pg MCHC 30.3 L (31.0-37.0) g/dL RDW 15.2 (11.5-15.5) % Plt Count 274 (150-450) k/uL MPV 7.0 Neutrophils % 63 % Lymphocytes % 26 % Monocytes % 5 % Eosinophils % 3 % Basophils % 1 % Neutrophils # 5.4 (1.3-7.7) k/uL Lymphocytes # 2.3 (1.0-4.8) k/uL Monocytes # 0.4 (0-1.0) k/uL Eosinophils # 0.2 (0-0.7) k/uL Basophils # 0.1 (0-0.2) k/uL Hypochromasia Moderate Macrocytosis Slight PT 10.3 (9.0-12.0) sec INR 0.9 (<1.2) APTT 24.8 (22.0-30.0) sec VBG pH (7.31-7.41) VBG pCO2 (37-51) mmHg VBG HCO3 (24-28) mmol/L Sodium (137-145) mmol/L Potassium (3.5-5.1) mmol/L Chloride (98-107) mmol/L Carbon Dioxide (22-30) mmol/L Anion Gap mmol/L BUN (7-17) mg/dL Creatinine (0.52-1.04) mg/dL Est GFR (CKD-EPI)AfAm (>60 ml/min/1.73 sqM) Est GFR (CKD-EPI)NonAf (>60 ml/min/1.73 sqM) Glucose (74-99) mg/dL POC Glucose (mg/dL) 94 (75-99) mg/dL POC 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 [place] Plasma Lactic Acid Stepan (0.7-2.0) mmol/L Calcium (8.4-10.2) mg/dL Total Bilirubin (0.2-1.3) mg/dL AST (14-36) U/L ALT (4-34) U/L Alkaline Phosphatase (38-126) U/L Ammonia (<30) umol/L Troponin I (0.000-0.034) ng/mL C-Reactive Protein (<1.0) mg/dL Total Protein (6.3-8.2) g/dL Albumin (3.5-5.0) g/dL Serum Alcohol mg/dL 06/18/21 06/18/21 06/18/21 Range/Units 16:52 16:52 16:52 WBC (3.8-10.6) k/uL RBC (3.80-5.40) m/uL Hgb (11.4-16.0) gm/dL Hct (34.0-46.0) % MCV (80.0-100.0) fL MCH (25.0-35.0) pg MCHC (31.0-37.0) g/dL RDW (11.5-15.5) % Plt Count (150-450) k/uL MPV Neutrophils % % Lymphocytes % % Monocytes % % Eosinophils % % Basophils % % Neutrophils # (1.3-7.7) k/uL Lymphocytes # (1.0-4.8) k/uL Monocytes # (0-1.0) k/uL Eosinophils # (0-0.7) k/uL Basophils # (0-0.2) k/uL Hypochromasia Macrocytosis PT (9.0-12.0) sec INR (<1.2) APTT (22.0-30.0) sec VBG pH (7.31-7.41) VBG pCO2 (37-51) mmHg VBG HCO3 (24-28) mmol/L Sodium 136 L (137-145) mmol/L Potassium 4.7 (3.5-5.1) mmol/L Chloride 103 (98-107) mmol/L Carbon Dioxide 27 (22-30) mmol/L Anion Gap 6 mmol/L BUN 12 (7-17) mg/dL Creatinine 1.07 H (0.52-1.04) mg/dL Est GFR (CKD-EPI)AfAm 65 (>60 ml/min/1.73 sqM) Est GFR (CKD-EPI)NonAf 57 (>60 ml/min/1.73 sqM) Glucose 89 (74-99) mg/dL POC Glucose (mg/dL) (75-99) mg/dL 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 [place] Plasma Lactic Acid Stepan 0.9 (0.7-2.0) mmol/L Calcium 8.8 (8.4-10.2) mg/dL Total Bilirubin 0.4 (0.2-1.3) mg/dL AST 24 (14-36) U/L ALT 11 (4-34) U/L Alkaline Phosphatase 116 (38-126) U/L Ammonia <9 (<30) umol/L Troponin I <0.012 (0.000-0.034) ng/mL C-Reactive Protein 2.3 H (<1.0) mg/dL Total Protein 7.3 (6.3-8.2) g/dL Albumin 4.0 (3.5-5.0) g/dL Serum Alcohol <10 mg/dL 03/31/22 Range/Units 17:50 WBC (3.8-10.6) k/uL RBC (3.80-5.40) m/uL Hgb (11.4-16.0) gm/dL Hct (34.0-46.0) % MCV (80.0-100.0) fL MCH (25.0-35.0) pg MCHC (31.0-37.0) g/dL RDW (11.5-15.5) % Plt Count (150-450) k/uL MPV Neutrophils % % Lymphocytes % % Monocytes % % Eosinophils % % Basophils % % Neutrophils # (1.3-7.7) k/uL Lymphocytes # (1.0-4.8) k/uL Monocytes # (0-1.0) k/uL Eosinophils # (0-0.7) k/uL Basophils # (0-0.2) k/uL Hypochromasia Macrocytosis PT (9.0-12.0) sec INR (<1.2) APTT (22.0-30.0) sec VBG pH 7.25 L (7.31-7.41) VBG pCO2 65 H (37-51) mmHg VBG HCO3 28 (24-28) mmol/L Sodium (137-145) mmol/L Potassium (3.5-5.1) mmol/L Chloride (98-107) mmol/L Carbon Dioxide (22-30) mmol/L Anion Gap mmol/L BUN (7-17) mg/dL Creatinine (0.52-1.04) mg/dL Est GFR (CKD-EPI)AfAm (>60 ml/min/1.73 sqM) Est GFR (CKD-EPI)NonAf (>60 ml/min/1.73 sqM) Glucose (74-99) mg/dL POC Glucose (mg/dL) (75-99) mg/dL POC 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 ID Plasma Lactic Acid Stepan (0.7-2.0) mmol/L Calcium (8.4-10.2) mg/dL Total Bilirubin (0.2-1.3) mg/dL AST (14-36) U/L ALT (4-34) U/L Alkaline Phosphatase (38-126) U/L Ammonia (<30) umol/L Troponin I (0.000-0.034) ng/mL C-Reactive Protein (<1.0) mg/dL Total Protein (6.3-8.2) g/dL Albumin (3.5-5.0) g/dL Serum Alcohol mg/dL - EKG Data -: EKG Interpreted by Me EKG Comments: 12-lead Electrocardiogram Interpretation Note EKG was reviewed and interpreted by myself. 12-lead ECG performed at 1940 is interpreted by me as revealing normal sinus rhythm at a rate of 72 beats per minute. [place] is normal. MS interval is 149 ms, QRS duration is underneath milliseconds, QTc is 429 ms.. There were no ST or T wave abnormalities to suggest myocardial ischemia or injury. R wave progression across the precordium was satisfactory. By my interpretation this EKG is non-diagnostic for acute ischemia. Critical Care Time Critical Care Time: Yes Total Critical Care Time: 35 Critical Care Time: Upon my evaluation, this patient had a high probability of imminent or life- threatening deterioration due to acute hypoxic/hypercapnic respiratory failure Requiring BiPAP, acute COPD exacerbation, which required my direct attention, intervention, and personal management. I have personally provided 35 minutes of critical care time exclusive of time spent on separately billable procedures. Time includes review of laboratory data, radiology results, discussion with consultants, and monitoring for potential decompensation. Interventions were performed as documented in my note. Disposition Clinical Impression: Acute respiratory failure with hypoxia and hypercapnia, COPD exacerbation Disposition: ADMITTED IP TO THIS HOSP Condition: Serious
[2021-06-19] MEDS ORDERED: methylPREDNISolone SOD SUCCI 40 MG/ML 1 ML VIAL IV SCH
[2021-06-19] MEDS: HEPARIN SODIUM,PORCINE/PF 5,000 UNIT/0.5 ML SYRINGE SQ SCH ×4 (00:40→23:17)
[2021-06-19] MEDS: IPRATROPIUM-ALBUTEROL 3 ML NEB INHALATION SCH ×6 (01:02→21:54)
[2021-06-19] MEDS: methylPREDNISolone SOD SUCCI 40 MG/ML 1 ML VIAL IV SCH ×4 (01:14→23:17)
[2021-06-19 06:06] LABS: Glucose,Whole Blood 137 mg/dL (75-99)
[2021-06-19] MEDS: LEVOTHYROXINE 100 MCG TAB PO SCH (06:07)
[2021-06-19] MEDS: CLOPIDOGREL 75 MG TAB PO SCH (08:31)
[2021-06-19] MEDS: ASPIRIN 81 MG PO SCH (08:31)
[2021-06-19] MEDS: GABAPENTIN 300 MG CAP PO SCH ×3 (08:31→20:32)
[2021-06-19] MEDS: cloNIDine HCL 0.2 MG TAB PO SCH ×2 (08:32→20:32)
[2021-06-19] MEDS: ESCITALOPRAM 20 MG TAB PO SCH ×2 (08:32→20:32)
--- NOTE | 2021-06-19 08:36 | P.HPIM ---
History of Present Illness H&P Date: 06/19/21 Chief Complaint: Syncopal episode This is a 60-year-old white female who was recently discharged from [facility] for hyponatremia and dehydration. She has an underlying history of COPD. She was home and stating that she is feeling bad pulse oximetry was in the mid 80s and she started becoming lethargic and unresponsive. Because of this took them an hour to arouse her she was brought in found to have hypercapnia and exacerbation of COPD. Pulmonology will be consulted. She is now lucid but has significant tachypnea today. No voiding difficulties. Unfortunate she still continues to smoke Review of Systems Constitutional: Denies chills, Denies fever Eyes: denies blurred vision, denies pain Ears, nose, mouth and throat: Denies headache, Denies sore throat Cardiovascular: Denies chest pain, Denies shortness of breath Respiratory: Reports as per HPI Gastrointestinal: Denies abdominal pain, Denies diarrhea, Denies nausea, Denies vomiting Past Medical History Past Medical History: Asthma, Coronary Artery Disease (CAD), Chest Pain / Angina, COPD, Seizure Disorder, Thyroid Disorder Additional Past Medical History / Comment(s): NEUROPATHY TO BILAT HANDS AND LEGS AND RT FOOT. Left carotid blockage History of Any Multi-Drug Resistant Organisms: None Reported Past Surgical History: Heart Catheterization, Heart Catheterization With Stent, Hysterectomy, Orthopedic Surgery Additional Past Surgical History / Comment(s): RT ROTATOR CUFF REPAIR, CYSTS REMOVED FROM UNDER ARMS AND HANDS, 4 stents, 07/18/18 left subclavian stent. Past Anesthesia/Blood Transfusion Reactions: No Reported Reaction Date of Last Stent Placement:: Nov 2017 Past Psychological History: Depression Smoking Status: Current every day smoker Past Alcohol Use History: None Reported Additional Past Alcohol Use History / Comment(s): SMOKES 4 cig/day SINCE AGE 11. Past Drug Use History: None Reported - Past Family History Mother Family Medical History: Cancer Sister(s) Family Medical History: Cancer Medications and Allergies Home Medications Medication Instructions Recorded Confirmed Type Escitalopram [Lexapro] 20 mg PO BID 11/28/17 06/18/21 History Doxepin [SINEquan] 10 mg PO HS 02/27/19 06/18/21 History Budesonide-Formot 160-4.5 Mcg 2 puff INHALATION RT-BID 04/24/19 06/18/21 History [Symbicort 160-4.5 Mcg Inhaler] Clopidogrel [Plavix] 75 mg PO DAILY 09/11/19 06/18/21 History Aspirin [Children's Aspirin] 81 mg PO DAILY 09/25/19 06/18/21 History Levothyroxine Sodium 200 mcg PO DAILY 08/20/20 06/18/21 History Nitroglycerin Sl Tabs [Nitrostat] 0.4 mg SL Q5M PRN 08/20/20 06/18/21 History cloNIDine HCL [Catapres] 0.2 mg PO BID 08/20/20 06/18/21 History levETIRAcetam [Keppra] 1,500 mg PO BID 12/11/20 06/18/21 History Albuterol Inhaler [Ventolin Hfa 2 puff INHALATION RT-QID PRN 06/18/21 06/18/21 History Inhaler] Albuterol Nebulized [Ventolin 2.5 mg INHALATION RT-Q6H PRN 06/18/21 06/18/21 History Nebulized] Gabapentin 600 mg PO TID 06/18/21 06/18/21 History Indomethacin [Indocin ER] 75 mg PO BID PRN 06/18/21 06/18/21 History Ipratropium-Albuterol Nebulize 3 ml INHALATION RT-Q6H PRN 06/18/21 06/18/21 History [Duoneb 0.5 mg-3 mg/3 ml Soln] Allergies Allergy/AdvReac Type Severity Reaction Status Date / Time No Known Allergies Allergy Verified 06/18/21 18:37 Physical Exam Vitals: Vital Signs Temp Pulse Pulse Resp BP BP Pulse Ox 06/19/21 05:02 86 06/19/21 04:54 88 06/19/21 03:23 18 90 L 06/19/21 03:10 20 85 L 06/19/21 02:00 100 06/19/21 01:13 95 06/19/21 01:06 22 90 L 06/19/21 01:04 95 06/19/21 00:53 97.7 F 100 18 153/99 96 06/18/21 22:58 86 14 130/68 88 L 06/18/21 21:40 92 18 121/74 89 L 06/18/21 21:00 18 122/64 90 L 06/18/21 20:00 74 14 96/57 88 L 06/18/21 19:40 70 06/18/21 19:32 70 06/18/21 19:26 68 14 97/56 90 L 06/18/21 17:43 64 20 06/18/21 17:35 86 18 126/83 94 L 06/18/21 17:34 84 18 06/18/21 16:54 92 L 06/18/21 16:33 97.8 F 97 16 106/61 77 L Intake and Output 06/18/21 06/19/21 06/19/21 22:59 06:59 14:59 Output Total 400 Balance -400 Output: Urine 400 Other: Voiding Method Bedpan Diaper # Voids 1 Weight 84.368 kg 84.368 kg - Constitutional General appearance: obese - EENT Eyes: EOMI - Neck Neck: no lymphadenopathy - Respiratory Respiratory: left: rhonchi - Cardiovascular Rhythm: regular Heart sounds: normal: S1, S2 Abnormal Heart Sounds: no S3 Gallop - Gastrointestinal General gastrointestinal: soft, no tenderness - Psychiatric Psychiatric: appropriate affect Results CBC & Chem 7: 06/18/21 16:52 06/18/21 16:52 Labs: Abnormal Lab Results - Last 24 Hours (Table) 06/18/21 06/18/21 06/18/21 Range/Units 16:52 16:52 17:50 MCV 102.0 H (80.0-100.0) fL MCHC 30.3 L (31.0-37.0) g/dL VBG pH 7.25 L (7.31-7.41) VBG pCO2 65 H (37-51) mmHg Sodium 136 L (137-145) mmol/L Creatinine 1.07 H (0.52-1.04) mg/dL POC Glucose (mg/dL) (75-99) mg/dL C-Reactive Protein 2.3 H (<1.0) mg/dL 06/18/21 06/19/21 Range/Units 20:13 06:04 MCV (80.0-100.0) fL MCHC (31.0-37.0) g/dL VBG pH (7.31-7.41) VBG pCO2 (37-51) mmHg Sodium (137-145) mmol/L Creatinine (0.52-1.04) mg/dL POC Glucose (mg/dL) 112 H 137 H (75-99) mg/dL C-Reactive Protein (<1.0) mg/dL Thrombosis Risk Factor Assmnt - Choose All That Apply Any of the Below Risk Factors Present?: Yes Each Factor Represents 1 point: Abnormal pulmonary function (COPD), Obesity (BMI >25) Other Risk Factors: Yes Each Risk Factor Represents 2 Points: Age 61-74 years Other congenital or acquired thrombophilia - If yes, enter type in comment: No Thrombosis Risk Factor Assessment Total Risk Factor Score: 4 Thrombosis Risk Factor Assessment Level: Moderate Risk Assessment and Plan (1) Acute respiratory failure with hypoxia and hypercapnia Current Visit: Yes Status: Acute Code(s): J96.01 - ACUTE RESPIRATORY FAILURE WITH HYPOXIA; J96.02 - ACUTE RESPIRATORY FAILURE WITH HYPERCAPNIA SNOMED Code(s): 984587719 (2) COPD exacerbation Current Visit: Yes Status: Acute Code(s): J44.1 - CHRONIC OBSTRUCTIVE PULMONARY DISEASE W (ACUTE) EXACERBATION SNOMED Code(s): 595351382 (3) Opiate dependence Current Visit: No Status: Acute Code(s): F11.20 - OPIOID DEPENDENCE, UNCOMPLICATED SNOMED Code(s): 70267918 (4) Tobacco abuse Current Visit: No Status: Acute Code(s): Z72.0 - TOBACCO USE SNOMED Code(s): 234898182 Plan: Standard COPD protocols. Consult pulmonology. Reconcile medications. Check CBC and CMP in a.m.
[2021-06-19 09:31] LABS: Appearance,Urine Clear (Clear); Bilirubin,Urine Negative (Negative); Blood,Urine Negative (Negative); Color,Urine Yellow; Glucose,Urine (UA) Negative (Negative); Ketones,Urine Negative (Negative); Leukocyte Esterase,Urine Negative (Negative); Nitrite,Urine Negative (Negative); PH, Urine 5.5 (5.0-8.0); Protein,Urine Negative (Negative); Specific Gravity,Urine 1.012 (1.001-1.035); Urobilinogen,Urine <2.0 mg/dL (<2.0)
[2021-06-19 09:57] LABS: Amphetamine Screen,Urine Not Detected (NotDetected); Barbiturate Screen,Urine Not Detected (NotDetected); Benzodiazepines Screen,Urine Not Detected (NotDetected); Cocaine Screen,Urine Not Detected (NotDetected); Methadone Screen, Urine Not Detected (NotDetected); Opiate Screen,Urine Not Detected (NotDetected); Oxycodone Screen, Urine Not Detected (NotDetected); Phencyclidine Screen,Urine Not Detected (NotDetected); Tricyclic Antidepressant,Urine Not Detected (NotDetected); Urn Cannabinoid Scrn Not Detected (NotDetected)
[2021-06-19 10:18] LABS: Basophils % (A) 0 %; Eosinophils % (A) 0 %; HCT 43.1 % (34.0-46.0); HGB 12.8 gm/dL (11.4-16.0); Hypochromasia Marked; Lymphocytes # (A) 0.6 k/uL (1.0-4.8); Lymphocytes % (A) 6 %; MCH 31.1 pg (25.0-35.0); MCHC 29.8 g/dL (31.0-37.0); MCV 104.6 fL (80.0-100.0); Macrocytosis Moderate; Mean Platelet Volume 7.5; Monocytes # (A) 0.2 k/uL (0-1.0); Monocytes % (A) 2 %; Neutrophils # (A) 10.2 k/uL (1.3-7.7); Neutrophils % (A) 92 %; Platelet Count 271 k/uL (150-450); RBC 4.13 m/uL (3.80-5.40); RDW 14.4 % (11.5-15.5); WBC 11.1 k/uL (3.8-10.6)
[2021-06-19 10:39] LABS: Albumin 3.9 g/dL (3.5-5.0); Calcium 8.5 mg/dL (8.4-10.2); Potassium 4.8 mmol/L (3.5-5.1); Total Bilirubin 0.4 mg/dL (0.2-1.3); Total Protein 6.9 g/dL (6.3-8.2)
--- NOTE | 2021-06-19 11:29 | P.CNPUL ---
History of Present Illness Consult date: 06/19/21 Requesting physician: Jose F Mcwilliams Reason for consult: dyspnea, cough, COPD, hypoxemia, abnormal CXR/CT Chief complaint: Shortness of breath. History of present illness: Pulmonary consultation dated 06/19/2021. 60-year-old female that I'm asked to see for COPD exacerbation. The patient is seen in room 352. The daughter is with her in the room. The patient apparently arrived in the emergency department yesterday, with mental status changes. The patient does have a history of COPD, and sees my partner. She currently is on 2 L nasal cannula, pretty much all the time. Unfortunately, she does continue to smoke. In addition, she has a history of hypertension, seizure disorder, and hypothyroidism. The patient is admitted with a COPD exacerbation. She apparently was recently discharged from the hospital. She also has a history of gout, and was treated for that. She denies any chest pain or chest discomfort. She was on BiPAP overnight. She's currently on 4 L now. Chest x-ray shows increased interstitial markings, which could be consistent with fluid overload. Laboratory data includes a white count 11.1, hemoglobin 12.8, hematocrit 43.1, and platelet count 2 year 71,000. Sodium 136, potassium 4.8, chlorides 100, CO2 23, anion gap 13, BUN 11, creatinine 0.9. N-terminal proBNP is modestly elevated at 1250. CT of the brain showed no acute intracranial process. Review of Systems REVIEW OF SYSTEMS: CONSTITUTIONAL: [Negative.] NEUROLOGIC: Mental status changes. HEENT: [ Negative.] CARDIAC: [Negative.] PULMONARY: Shortness of breath, cough, wheezing, and phlegm production. GI: [Negative.] : [Negative.] RHEUMATOLOGIC: [ Negative.] IMMUNOLOGIC: [ Negative.] ENDOCRINE: [Negative. 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 Left carotid blockage History of Any Multi-Drug Resistant Organisms: None Reported Past Surgical History: Heart Catheterization, Heart Catheterization With Stent, Hysterectomy, Orthopedic Surgery Additional Past Surgical History / Comment(s): RT ROTATOR CUFF REPAIR, CYSTS REMOVED FROM UNDER ARMS AND HANDS, 4 stents, 07/18/18 left subclavian stent. Past Anesthesia/Blood Transfusion Reactions: No Reported Reaction Date of Last Stent Placement:: Nov 2017 Past Psychological History: Depression Smoking Status: Current every day smoker Past Alcohol Use History: None Reported Additional Past Alcohol Use History / Comment(s): SMOKES 4 cig/day SINCE AGE 11. Past Drug Use History: None Reported - Past Family History Mother Family Medical History: Cancer Sister(s) Family Medical History: Cancer Medications and Allergies Home Medications Medication Instructions Recorded Confirmed Type Escitalopram [Lexapro] 20 mg PO BID 11/28/17 06/18/21 History Doxepin [SINEquan] 10 mg PO HS 02/27/19 06/18/21 History Budesonide-Formot 160-4.5 Mcg 2 puff INHALATION RT-BID 04/24/19 06/18/21 History [Symbicort 160-4.5 Mcg Inhaler] Clopidogrel [Plavix] 75 mg PO DAILY 09/11/19 06/18/21 History Aspirin [Children's Aspirin] 81 mg PO DAILY 09/25/19 06/18/21 History Levothyroxine Sodium 200 mcg PO DAILY 08/20/20 06/18/21 History Nitroglycerin Sl Tabs [Nitrostat] 0.4 mg SL Q5M PRN 08/20/20 06/18/21 History cloNIDine HCL [Catapres] 0.2 mg PO BID 08/20/20 06/18/21 History levETIRAcetam [Keppra] 1,500 mg PO BID 12/11/20 06/18/21 History Albuterol Inhaler [Ventolin Hfa 2 puff INHALATION RT-QID PRN 06/18/21 06/18/21 History Inhaler] Albuterol Nebulized [Ventolin 2.5 mg INHALATION RT-Q6H PRN 06/18/21 06/18/21 Hi story Nebulized] Gabapentin 600 mg PO TID 06/18/21 06/18/21 History Indomethacin [Indocin ER] 75 mg PO BID PRN 06/18/21 06/18/21 History Ipratropium-Albuterol Nebulize 3 ml INHALATION RT-Q6H PRN 06/18/21 06/18/21 History [Duoneb 0.5 mg-3 mg/3 ml Soln] Allergies Allergy/AdvReac Type Severity Reaction Status Date / Time No Known Allergies Allergy Verified 06/18/21 18:37 Physical Exam Osteopathic Statement: *. No significant issues noted on an osteopathic structural exam other than those noted in the History and Physical/Consult. Vitals: Vital Signs Temp Pulse Pulse Resp BP BP Pulse Ox 06/19/21 09:05 110 H 06/19/21 08:48 106 H 06/19/21 08:00 97.8 F 110 H 18 124/63 88 L 06/19/21 05:02 86 06/19/21 04:54 88 06/19/21 03:23 18 90 L 06/19/21 03:10 20 85 L 06/19/21 02:00 100 06/19/21 01:13 95 06/19/21 01:06 22 90 L 06/19/21 01:04 95 06/19/21 00:53 97.7 F 100 18 153/99 96 06/18/21 22:58 86 14 130/68 88 L 06/18/21 21:40 92 18 121/74 89 L 06/18/21 21:00 18 122/64 90 L 06/18/21 20:00 74 14 96/57 88 L 06/18/21 19:40 70 06/18/21 19:32 70 06/18/21 19:26 68 14 97/56 90 L 06/18/21 17:43 64 20 06/18/21 17:35 86 18 126/83 94 L 06/18/21 17:34 84 18 06/18/21 16:54 92 L 06/18/21 16:33 97.8 F 97 16 106/61 77 L Intake and Output 06/18/21 06/19/21 06/19/21 22:59 06:59 14:59 Intake Total 330 Output Total 400 500 Balance -400 -170 Intake: Oral 330 Output: Urine 400 500 Other: Voiding Method Bedpan Bedpan Diaper Diaper # Voids 1 1 Weight 84.368 kg 84.368 kg No acute distress, oriented 3. Sitting in bed, nasal O2 on 4 L/m. No overt respiratory difficulty or distress. HEENT examination is grossly unremarkable. Neck supple. Full range of motion. No adenopathy thyromegaly or neck vein distention. Cardiovascular examination reveals regular rhythm rate. S1-S2 normal. No S3 or S4. No discernible murmur noted. Heart sounds are distant. Heart rate 100 bpm. Lungs reveal inspiratory and expiratory wheezes and rhonchi. Breath sounds are equal bilaterally but diminished throughout. No crackles. Saturations are in the high 80s on 4 L. Abdomen soft bowel sounds are heard. No masses or tenderness. Extremities are intact. No cyanosis clubbing or edema. Skin reveals multiple areas of ecchymoses. Neurologic examination is brief but nonfocal. Results - Laboratory Findings CBC and BMP: 06/19/21 09:06 06/19/21 09:06 PT/INR, D-dimer PT 10.3 sec (9.0-12.0) 06/18/21 16:52 INR 0.9 (<1.2) 06/18/21 16:52 Abnormal lab findings: Abnormal Labs 06/18/21 06/18/21 06/18/21 16:52 16:52 17:50 WBC MCV 102.0 H MCHC 30.3 L Neutrophils # Lymphocytes # VBG pH 7.25 L VBG pCO2 65 H Sodium 136 L Creatinine 1.07 H Glucose POC Glucose (mg/dL) C-Reactive Protein 2.3 H 06/18/21 06/19/21 06/19/21 20:13 06:04 09:06 WBC 11.1 H MCV 104.6 H MCHC 29.8 L Neutrophils # 10.2 H Lymphocytes # 0.6 L VBG pH VBG pCO2 Sodium Creatinine Glucose POC Glucose (mg/dL) 112 H 137 H C-Reactive Protein 06/19/21 09:06 WBC MCV MCHC Neutrophils # Lymphocytes # VBG pH VBG pCO2 Sodium 136 L Creatinine Glucose 235 H POC Glucose (mg/dL) C-Reactive Protein - Diagnostic Findings Chest x-ray: image reviewed Assessment and Plan Assessment: Shortness of breath, secondary to COPD exacerbation. History of ongoing tobacco use with nicotine addiction. Chronic hypoxemic respiratory failure, on home O2 at 2 L. History of CAD, status post PCI with stent placement. History of hypertension. History of seizure disorder. History of hypothyroidism. History of gout. Plan: Plan dated 06/19/2021. The patient was placed on Symbicort, albuterol, and ipratropium bromide. In addition, the patient's on Solu-Medrol. We will continue to follow and make recommendations where appropriate. Labs, x-rays, and medications are reviewed. The patient is counseled about the importance of smoking cessation. The patient does use home O2 at home, pretty much all the time. She should also follow-up with my partner when she is discharged. Prognosis is guarded. Time with Patient: Greater than 30
[2021-06-19 11:33] LABS: Glucose,Whole Blood 188 mg/dL (75-99)
[2021-06-19 16:14] LABS: Glucose,Whole Blood 224 mg/dL (75-99)
[2021-06-19] MEDS: INSULIN ASPART (NovoLOG) 100 UNIT/ML VIAL SQ SCH ×2 (17:02→20:32)
[2021-06-19] MEDS: NICOTINE 14MG/24HR PATCH TRANSDERM SCH (18:31)
[2021-06-19 20:19] LABS: Glucose,Whole Blood 189 mg/dL (75-99)
[2021-06-19] MEDS: DOXEPIN 10 MG CAP PO SCH (20:32)
[2021-06-19] MEDS: SODIUM CHLORIDE 0.9% 1,000 ML IV SCH (20:33)
[2021-06-19] MEDS ORDERED: INDOMETHACIN 25 MG CAP PO PRN (21:00)
[2021-06-19] MEDS: SYMBICORT 160-4.5 MCG INHALER INHALATION SCH (21:54)
[2021-06-20] MEDS: IPRATROPIUM-ALBUTEROL 3 ML NEB INHALATION SCH ×5 (01:20→15:17)
[2021-06-20 04:20] VITALS: RESP 16
[2021-06-20 06:25] LABS: Glucose,Whole Blood 186 mg/dL (75-99)
[2021-06-20] MEDS: INSULIN ASPART (NovoLOG) 100 UNIT/ML VIAL SQ SCH ×2 (06:26→13:02)
[2021-06-20] MEDS: LEVOTHYROXINE 100 MCG TAB PO SCH (06:26)
[2021-06-20] MEDS: HEPARIN SODIUM,PORCINE/PF 5,000 UNIT/0.5 ML SYRINGE SQ SCH (08:21)
[2021-06-20] MEDS: GABAPENTIN 300 MG CAP PO SCH (08:21)
[2021-06-20] MEDS: ESCITALOPRAM 20 MG TAB PO SCH (08:21)
[2021-06-20] MEDS: CLOPIDOGREL 75 MG TAB PO SCH (08:21)
[2021-06-20] MEDS: ASPIRIN 81 MG PO SCH (08:21)
[2021-06-20] MEDS: cloNIDine HCL 0.2 MG TAB PO SCH (08:21)
[2021-06-20] MEDS: NICOTINE 14MG/24HR PATCH TRANSDERM SCH (08:21)
[2021-06-20] MEDS: methylPREDNISolone SOD SUCCI 40 MG/ML 1 ML VIAL IV SCH (08:24)
[2021-06-20] MEDS: SYMBICORT 160-4.5 MCG INHALER INHALATION SCH (08:45)
[2021-06-20 09:33] LABS: Albumin 3.9 g/dL (3.5-5.0); Calcium 8.8 mg/dL (8.4-10.2); Potassium 4.9 mmol/L (3.5-5.1); Total Bilirubin 0.3 mg/dL (0.2-1.3); Total Protein 6.9 g/dL (6.3-8.2)
[2021-06-20 09:38] LABS: HCT 38.4 % (34.0-46.0); HGB 11.9 gm/dL (11.4-16.0); Hypochromasia Slight; MCH 31.2 pg (25.0-35.0); MCHC 30.9 g/dL (31.0-37.0); MCV 100.8 fL (80.0-100.0); Macrocytosis Slight; Mean Platelet Volume 7.4; Platelet Count 268 k/uL (150-450); RBC 3.81 m/uL (3.80-5.40); RDW 14.7 % (11.5-15.5); WBC 18.2 k/uL (3.8-10.6)
[2021-06-20] MEDS ORDERED: FAMOTIDINE 20 MG TAB PO SCH (09:45)
--- NOTE | 2021-06-20 09:47 | P.PN ---
Subjective 60-year-old female admitted for COPD exacerbation. Patient occasionally uses 2 L of oxygen at home presently on 4 L patient still has some wheezing. Patient was recently discharged from [facility] stayed at home for a day and that came back again with COPD exacerbation patient continues to smoke 1 pack per day. Patient states she will quit smoking as long as she has a past. Patient will be discharged on nicotine patch weaning dose of steroids. Patient is slightly tachycardic at although patient is hypotensive because of which I'm changing the clonidine to metoprolol my concern for metoprolol causing [place] constriction as well as its is selective beta jessica. Constitutional: Denied any fatigue denied any fever. Cardio vascular: denied any chest pain, palpitations Gastrointestinal denied any nausea vomiting Pulmonary: As mentioned in the interval history Neurologic denied any new focal deficits All inpatient medications were reviewed and appropriate changes in these medications as dictated in the interval history and assessment and plan. PHYSICAL EXAMINATION: GENERAL: The patient is alert and oriented x3, not in any acute distress. Well developed, well nourished. HEENT: Pupils are round and equally reacting to light. EOMI. No scleral icterus. No conjunctival pallor. Normocephalic, atraumatic. No pharyngeal erythema. No thyromegaly. CARDIOVASCULAR: S1 and S2 present. No murmurs, rubs, or gallops. PULMONARY: I'll expiratory wheezing and rhonchi ABDOMEN: Soft, nontender, nondistended, normoactive bowel sounds. No palpable organomegaly. MUSCULOSKELETAL: No joint swelling or deformity. EXTREMITIES: No cyanosis, clubbing, or pedal edema. NEUROLOGICAL: Gross neurological examination did not reveal any focal deficits. SKIN: No rashes. Assessment and plan Acute on chronic hypercapnic respiratory failure secondary to COPD exacerbation: Patient will be discharged on systemic steroids inhalational treatments. -Continue nicotine use: Counseling was provided -Coronary artery disease - hypertension - seizure disorder -Hypothyroidism DVT prophylaxis: Subcutaneous heparin if she ends up staying in the hospital today Objective - Vital Signs Vital signs: Vital Signs Temp 98.1 F 06/19/21 20:30 Pulse 92 06/20/21 09:02 Resp 16 06/20/21 03:50 BP 101/52 06/20/21 03:50 Pulse Ox 93 L 06/20/21 03:50 Intake & Output 06/19/21 06/20/21 06/20/21 18:59 06:59 18:59 Intake Total 450 Output Total 500 Balance -50 Intake: Oral 450 Output: Urine 500 Other: Voiding Method Bedpan Bedside Commode Diaper Diaper # Voids 3 3 - Labs CBC & Chem 7: 06/20/21 08:12 06/20/21 08:12 Labs: Abnormal Lab Results - Last 24 Hours (Table) 06/19/21 06/19/21 06/19/21 Range/Units 09:06 09:06 11:28 WBC 11.1 H (3.8-10.6) k/uL MCV 104.6 H (80.0-100.0) fL MCHC 29.8 L (31.0-37.0) g/dL Neutrophils # 10.2 H (1.3-7.7) k/uL Lymphocytes # 0.6 L (1.0-4.8) k/uL Sodium 136 L (137-145) mmol/L Glucose 235 H (74-99) mg/dL POC Glucose (mg/dL) 188 H (75-99) mg/dL 06/19/21 06/19/21 06/20/21 Range/Units 16:12 20:18 06:21 WBC (3.8-10.6) k/uL MCV (80.0-100.0) fL MCHC (31.0-37.0) g/dL Neutrophils # (1.3-7.7) k/uL Lymphocytes # (1.0-4.8) k/uL Sodium (137-145) mmol/L Glucose (74-99) mg/dL POC Glucose (mg/dL) 224 H 189 H 186 H (75-99) mg/dL 06/20/21 06/20/21 Range/Units 08:12 08:12 WBC 18.2 H (3.8-10.6) k/uL MCV 100.8 H (80.0-100.0) fL MCHC 30.9 L (31.0-37.0) g/dL Neutrophils # (1.3-7.7) k/uL Lymphocytes # (1.0-4.8) k/uL Sodium 135 L (137-145) mmol/L Glucose 178 H (74-99) mg/dL POC Glucose (mg/dL) (75-99) mg/dL Microbiology - Last 24 Hours (Table) 06/18/21 17:35 Blood Culture - Preliminary Blood No Growth after 24 hours 06/18/21 17:50 Blood Culture - Preliminary Blood No Growth after 24 hours
--- NOTE | 2021-06-20 09:49 | P.DS ---
Providers Date of admission: 06/18/21 19:21 Attending physician: Jose F Mcwilliams Consults: 06/18/21 19:22 Consult Physician Routine Consulting Provider: Hilario Castillo Consult Reason/Comments: COPD exacerbation. Hypercapneic, hypoxic respiratory failure on bipap Do you want consulting provider notified?: Yes Primary care physician: Jose F Mcwilliams [facility] Course: 60-year-old female admitted for COPD exacerbation. Patient occasionally uses 2 L of oxygen at home presently on 4 L patient still has some wheezing. Patient was recently discharged from [facility] stayed at home for a day and that came back again with COPD exacerbation patient continues to smoke 1 pack per day. Patient states she will quit smoking as long as she has a past. Patient will be discharged on nicotine patch weaning dose of steroids. Patient is slightly tachycardic at although patient is hypotensive because of which I'm changing the clonidine to metoprolol my concern for metoprolol causing [place] constriction as well as its is selective beta jessica. Constitutional: Denied any fatigue denied any fever. Cardio vascular: denied any chest pain, palpitations Gastrointestinal denied any nausea vomiting Pulmonary: As mentioned in the interval history Neurologic denied any new focal deficits All inpatient medications were reviewed and appropriate changes in these med ications as dictated in the interval history and assessment and plan. PHYSICAL EXAMINATION: GENERAL: The patient is alert and oriented x3, not in any acute distress. Well developed, well nourished. HEENT: Pupils are round and equally reacting to light. EOMI. No scleral icterus. No conjunctival pallor. Normocephalic, atraumatic. No pharyngeal erythema. No thyromegaly. CARDIOVASCULAR: S1 and S2 present. No murmurs, rubs, or gallops. PULMONARY: I'll expiratory wheezing and rhonchi ABDOMEN: Soft, nontender, nondistended, normoactive bowel sounds. No palpable organomegaly. MUSCULOSKELETAL: No joint swelling or deformity. EXTREMITIES: No cyanosis, clubbing, or pedal edema. NEUROLOGICAL: Gross neurological examination did not reveal any focal deficits. SKIN: No rashes. Assessment and plan Acute on chronic hypercapnic respiratory failure secondary to COPD exacerbation: Patient will be discharged on systemic steroids inhalational treatments. -Continue nicotine use: Counseling was provided -Coronary artery disease - hypertension - seizure disorder -Hypothyroidism DVT prophylaxis: Subcutaneous heparin if she ends up staying in the hospital today Patient Condition at Discharge: Serious Plan - Discharge Summary Discharge Rx Participant: Yes New Discharge Prescriptions: New Metoprolol Tartrate [Lopressor] 25 mg PO BID #60 tab Famotidine [Pepcid] 20 mg PO BID #30 tablet predniSONE 10 mg PO DAILY #30 tab Nicotine 7Mg/24Hr Patch [Habitrol] 1 patch TRANSDERM DAILY #14 patch Continue Escitalopram [Lexapro] 20 mg PO BID Doxepin [SINEquan] 10 mg PO HS Budesonide-Formot 160-4.5 Mcg [Symbicort 160-4.5 Mcg Inhaler] 2 puff INHALATION RT-BID Clopidogrel [Plavix] 75 mg PO DAILY Aspirin [Children's Aspirin] 81 mg PO DAILY Nitroglycerin Sl Tabs [Nitrostat] 0.4 mg SL Q5M PRN PRN Reason: Chest Pain levETIRAcetam [Keppra] 1,500 mg PO BID Albuterol Inhaler [Ventolin Hfa Inhaler] 2 puff INHALATION RT-QID PRN PRN Reason: Shortness Of Breath Indomethacin [Indocin ER] 75 mg PO BID PRN PRN Reason: GOUT Ipratropium-Albuterol Nebulize [Duoneb 0.5 mg-3 mg/3 ml Soln] 3 ml INHALATION RT-Q6H PRN PRN Reason: Shortness Of Breath Levothyroxine Sodium 200 mcg PO DAILY Gabapentin 600 mg PO TID Albuterol Nebulized [Ventolin Nebulized] 2.5 mg INHALATION RT-Q6H PRN PRN Reason: Shortness Of Breath Discontinued cloNIDine HCL [Catapres] 0.2 mg PO BID Discharge Medication List Escitalopram [Lexapro] 20 mg PO BID 11/28/17 [History] Doxepin [SINEquan] 10 mg PO HS 02/27/19 [History] Budesonide-Formot 160-4.5 Mcg [Symbicort 160-4.5 Mcg Inhaler] 2 puff INHALATION RT-BID 04/24/19 [History] Clopidogrel [Plavix] 75 mg PO DAILY 09/11/19 [History] Aspirin [Children's Aspirin] 81 mg PO DAILY 09/25/19 [History] Levothyroxine Sodium 200 mcg PO DAILY 08/20/20 [History] Nitroglycerin Sl Tabs [Nitrostat] 0.4 mg SL Q5M PRN 08/20/20 [History] levETIRAcetam [Keppra] 1,500 mg PO BID 12/11/20 [History] Albuterol Inhaler [Ventolin Hfa Inhaler] 2 puff INHALATION RT-QID PRN 06/18/21 [History] Albuterol Nebulized [Ventolin Nebulized] 2.5 mg INHALATION RT-Q6H PRN 06/18/21 [History] Gabapentin 600 mg PO TID 06/18/21 [History] Indomethacin [Indocin ER] 75 mg PO BID PRN 06/18/21 [History] Ipratropium-Albuterol Nebulize [Duoneb 0.5 mg-3 mg/3 ml Soln] 3 ml INHALATION RT-Q6H PRN 06/18/21 [History] Famotidine [Pepcid] 20 mg PO BID #30 tablet 06/20/21 [Rx] Metoprolol Tartrate [Lopressor] 25 mg PO BID #60 tab 06/20/21 [Rx] Nicotine 7Mg/24Hr Patch [Habitrol] 1 patch TRANSDERM DAILY #14 patch 06/20/21 [Rx] predniSONE 10 mg PO DAILY #30 tab 06/20/21 [Rx] Follow up Appointment(s)/Referral(s): Jose F Mcwilliams MD [Primary Care Provider] - 1 Week Discharge Disposition: HOME SELF-CARE
[2021-06-20 10:44] VITALS: TEMP 97.6
[2021-06-20 11:37] LABS: Glucose,Whole Blood 211 mg/dL (75-99)
[2021-06-20 12:42] VITALS: PULSE 96
[2021-06-20] MEDS: SODIUM CHLORIDE 0.9% 1,000 ML IV SCH (13:02)
[2021-06-20 14:47] VITALS: BP 102/57
--- NOTE | 2021-06-20 14:55 | P.PN ---
Subjective Progress Note Date: 06/20/21 Principal diagnosis: COPD exacerbation. Pulmonary consultation dated 06/19/2021. 60-year-old female that I'm asked to see for COPD exacerbation. The patient is seen in room 352. The daughter is with her in the room. The patient apparently arrived in the emergency department yesterday, with mental status changes. The patient does have a history of COPD, and sees my partner. She currently is on 2 L nasal cannula, pretty much all the time. Unfortunately, she does continue to smoke. In addition, she has a history of hypertension, seizure disorder, and hypothyroidism. The patient is admitted with a COPD exacerbation. She apparently was recently discharged from the hospital. She also has a history of gout, and was treated for that. She denies any chest pain or chest discomfort. She was on BiPAP overnight. She's currently on 4 L now. Chest x-ray shows increased interstitial markings, which could be consistent with fluid overload. Laboratory data includes a white count 11.1, hemoglobin 12.8, hematocrit 43.1, and platelet count 2 year 71,000. Sodium 136, potassium 4.8, chlorides 100, CO2 23, anion gap 13, BUN 11, creatinine 0.9. N-terminal proBNP is modestly elevated at 1250. CT of the brain showed no acute intracranial process. Progress note dated 06/20/2021. 60-year-old patient admitted with a diagnosis COPD exacerbation. Seen again today in room 352. Her daughter is in the room with her. The patient was smoking up until the time of her admission. Currently, the patient's feeling a bit better. She does have a history of hypertension, seizure disorder, and hypothyroidism. Laboratory data today includes a white count of 18.2, hemoglo bin 11.9, hematocrit 38.4, and platelet count 268,000. Sodium 135, potassium 4.9, chlorides 99, CO2 29, BUN 17, and creatinine 0.85. Objective - Vital Signs Vital signs: Vital Signs Temp 97.6 F 06/20/21 08:00 Pulse 96 06/20/21 12:41 Resp 16 06/20/21 08:00 BP 102/57 06/20/21 12:00 Pulse Ox 96 06/20/21 12:00 Intake & Output 06/19/21 06/20/21 06/20/21 18:59 06:59 18:59 Intake Total 450 20 Output Total 500 Balance -50 20 Intake: Intake, IV Titration 20 Amount Sodium Chloride 0.9% 1, 20 000 ml @ 75 mls/hr IV . [id number] [facility] Rx#:[id number] Oral 450 Output: Urine 500 Other: Voiding Method Bedpan Bedside Commode Bedside Commode Diaper Diaper Diaper # Voids 3 3 - Exam No acute distress, oriented 3. Sitting in bed, nasal O2 on 4 L/m. No overt respiratory difficulty or distress. HEENT examination is grossly unremarkable. Neck supple. Full range of motion. No adenopathy thyromegaly or neck vein distention. Cardiovascular examination reveals regular rhythm rate. S1-S2 normal. No S3 or S4. No discernible murmur noted. Heart sounds are distant. Heart rate 96 bpm. Lungs reveal inspiratory and expiratory wheezes and rhonchi. Breath sounds are equal bilaterally but diminished throughout. No crackles. Saturations are 96% on 4 L. Abdomen soft bowel sounds are heard. No masses or tenderness. Extremities are intact. No cyanosis clubbing or edema. Skin reveals multiple areas of ecchymoses. Neurologic examination is brief but nonfocal. - Labs CBC & Chem 7: 06/20/21 08:12 06/20/21 08:12 Labs: Abnormal Lab Results - Last 24 Hours (Table) 06/19/21 06/19/21 06/20/21 Range/Units 16:12 20:18 06:21 WBC (3.8-10.6) k/uL MCV (80.0-100.0) fL MCHC (31.0-37.0) g/dL Sodium (137-145) mmol/L Glucose (74-99) mg/dL POC Glucose (mg/dL) 224 H 189 H 186 H (75-99) mg/dL 06/20/21 06/20/21 06/20/21 Range/Units 08:12 08:12 11:36 WBC 18.2 H (3.8-10.6) k/uL MCV 100.8 H (80.0-100.0) fL MCHC 30.9 L (31.0-37.0) g/dL Sodium 135 L (137-145) mmol/L Glucose 178 H (74-99) mg/dL POC Glucose (mg/dL) 211 H (75-99) mg/dL Microbiology - Last 24 Hours (Table) 06/18/21 17:35 Blood Culture - Preliminary Blood No Growth after 24 hours 06/18/21 17:50 Blood Culture - Preliminary Blood No Growth after 24 hours Assessment and Plan Assessment: Shortness of breath, secondary to COPD exacerbation. History of ongoing tobacco use with nicotine addiction. Chronic hypoxemic respiratory failure, on home O2 at 2 L. History of CAD, status post PCI with stent placement. History of hypertension. History of seizure disorder. History of hypothyroidism. History of gout. Plan: Plan dated 06/19/2021. The patient was placed on Symbicort, albuterol, and ipratropium bromide. In addition, the patient's on Solu-Medrol. We will continue to follow and make recommendations where appropriate. Labs, x-rays, and medications are reviewed. The patient is counseled about the importance of smoking cessation. The patient does use home O2 at home, pretty much all the time. She should also follow-up with my partner when she is discharged. Prognosis is guarded. Plan dated 06/20/2021. The patient was placed on usual medications including long-acting beta agonist, inhaled corticosteroid, short acting beta agonist, short acting muscarinic antagonist, and systemic corticosteroids. The patient promises that she will not smoke ever again. The patient will be discharged home on oxygen therapy, when she is discharged. The patient does have oxygen at home. Additional rec ommendations and suggestions are forthcoming. Time with Patient: Less than 30
[2021-06-20] MEDS ORDERED: METOPROLOL TARTRATE 25 MG TAB PO SCH (21:00)
== END 2021-06-20 15:45 | disposition home or self-care (01) | DRG 190 ==
LOC: EC 16:27 → 3SCARD 19:21
PROVIDERS: ADMIT Family Medicine; ATTEND Family Medicine
DX: J44.1 Chronic obstructive pulmonary disease with (acute) exacerbation (principal); J96.21 Acute and chronic respiratory failure with hypoxia; J96.22 Acute and chronic respiratory failure with hypercapnia; E87.1 Hypo-osmolality and hyponatremia; F11.20 Opioid dependence, uncomplicated; M10.9 Gout, unspecified; G62.9 Polyneuropathy, unspecified; I25.10 Atherosclerotic heart disease of native coronary artery without angina pectoris; S82.56XA Nondisplaced fracture of medial malleolus of unspecified tibia, initial encounter for closed fracture; E03.9 Hypothyroidism, unspecified; E86.0 Dehydration; F17.210 Nicotine dependence, cigarettes, uncomplicated; F32.A Depression, unspecified; G40.909 Epilepsy, unspecified, not intractable, without status epilepticus; I10 Essential (primary) hypertension; Z79.02 Long term (current) use of antithrombotics/antiplatelets; Z79.51 Long term (current) use of inhaled steroids; Z79.82 Long term (current) use of aspirin; Z79.890 Hormone replacement therapy; Z79.899 Other long term (current) drug therapy; Z90.710 Acquired absence of both cervix and uterus; Z95.5 Presence of coronary angioplasty implant and graft; Z98.890 Other specified postprocedural states
CPT/HCPCS: 36415; 70450; 71046; 80053; 80306; 80320; 81003; 82140; 82803; 83036; 83605; 83880; 84484; 85025; 85027; 85610; 85730; 86140; 87040; 93005; 94640; 94660; 94760; 96360; 96361; 99291

== ENCOUNTER 2021-08-05 14:06 | Observation (INO) | payer MEDICARE ==
[2021-08-05 14:44] LABS: VBG PH 7.37 (7.31-7.41)
[2021-08-05] MEDS ORDERED: methylPREDNISolone SOD SUCCI 125 MG/2 ML VIAL IV STA (14:44)
[2021-08-05] MEDS ORDERED: SODIUM CHLORIDE 0.9% 1,000 ML IV ONE (14:44)
[2021-08-05] MEDS ORDERED: ALBUTEROL NEBULIZED 2.5 MG/3 ML INHALATION STA (14:44)
[2021-08-05] MEDS ORDERED: IPRATROPIUM-ALBUTEROL 3 ML NEB INHALATION STA (14:44)
[2021-08-05 14:56] LABS: Basophils # (A) 0.1 k/uL (0-0.2); Basophils % (A) 1 %; Eosinophils # (A) 0.1 k/uL (0-0.7); Eosinophils % (A) 1 %; HCT 45.3 % (34.0-46.0); HGB 14.3 gm/dL (11.4-16.0); Hypochromasia Slight; Lymphocytes # (A) 2.7 k/uL (1.0-4.8); Lymphocytes % (A) 24 %; MCH 30.2 pg (25.0-35.0); MCHC 31.6 g/dL (31.0-37.0); Monocytes # (A) 0.7 k/uL (0-1.0); Monocytes % (A) 7 %; Neutrophils # (A) 7.2 k/uL (1.3-7.7); Neutrophils % (A) 65 %; Platelet Count 426 k/uL (150-450); RBC 4.74 m/uL (3.80-5.40); RDW 15.5 % (11.5-15.5)
[2021-08-05 15:01] LABS: Albumin 4.4 g/dL (3.5-5.0); Calcium 8.8 mg/dL (8.4-10.2); Magnesium 2.1 mg/dL (1.6-2.3); Total Bilirubin 0.5 mg/dL (0.2-1.3); Total Protein 7.6 g/dL (6.3-8.2)
[2021-08-05 15:04] LABS: INR 0.9 (<1.2); MCV 95.6 fL (80.0-100.0); Potassium 5.3 mmol/L (3.5-5.1); Prothrombin Time 10.2 sec (9.0-12.0)
--- NOTE | 2021-08-05 15:16 | XR ---
EXAMINATION TYPE: XR chest 2V DATE OF EXAM: 08/05/2021 COMPARISON: 06/18/2021 INDICATION: Difficulty breathing TECHNIQUE: Frontal and lateral views of the chest are obtained. FINDINGS: The heart size is mildly prominent. The pulmonary vasculature is normal. The lungs are clear. IMPRESSION: 1. No acute pulmonary process. 2. Mild cardiomegaly
--- NOTE | 2021-08-05 15:25 | ED ---
General Adult HPI - General Chief complaint: Shortness of Breath Stated complaint: ROLAND Time Seen by Provider: 08/05/21 14:07 Source: patient, EMS, RN notes reviewed, old records reviewed Mode of arrival: EMS Limitations: no limitations - History of Present Illness Initial comments: 59-year-old female presenting with right lateral chest pain, dyspnea, bilateral numbness and tingling in her hands. Patient has history of oxygen dependent COPD. She had recent admission for hypoxic hypercapnic respiratory failure. She has not had any fever. She does report cough. No central chest pain. - Related Data Home Medications Medication Instructions Recorded Confirmed Escitalopram [Lexapro] 20 mg PO BID 11/28/17 08/05/21 Doxepin [SINEquan] 10 mg PO HS 02/27/19 08/05/21 Budesonide-Formot 160-4.5 Mcg 2 puff INHALATION RT-BID 04/24/19 08/05/21 [Symbicort 160-4.5 Mcg Inhaler] Clopidogrel [Plavix] 75 mg PO DAILY 09/11/19 08/05/21 Aspirin [Children's Aspirin] 81 mg PO DAILY 09/25/19 08/05/21 Levothyroxine Sodium 200 mcg PO DAILY 08/20/20 08/05/21 Nitroglycerin Sl Tabs [Nitrostat] 0.4 mg SL Q5M PRN 08/20/20 08/05/21 levETIRAcetam [Keppra] 1,500 mg PO BID 12/11/20 08/05/21 Albuterol Inhaler [Ventolin Hfa 2 puff INHALATION RT-QID PRN 06/18/21 08/05/21 Inhaler] Albuterol Nebulized [Ventolin 2.5 mg INHALATION RT-Q6H PRN 06/18/21 08/05/21 Nebulized] Gabapentin 600 mg PO TID 06/18/21 08/05/21 Indomethacin [Indocin ER] 75 mg PO BID PRN 06/18/21 08/05/21 Ipratropium-Albuterol Nebulize 3 ml INHALATION RT-Q6H PRN 06/18/21 08/05/21 [Duoneb 0.5 mg-3 mg/3 ml Soln] Previous Rx's Medication Instructions Recorded Metoprolol Tartrate [Lopressor] 25 mg PO BID #60 tab 06/20/21 Allergies Allergy/AdvReac Type Severity Reaction Status Date / Time No Known Allergies Allergy Verified 08/05/21 15:53 Review of Systems ROS Statement: Those systems with pertinent positive or pertinent negative responses have been documented in the HPI. ROS Other: All systems not noted in ROS Statement are negative. 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 Left carotid blockage History of Any Multi-Drug Resistant Organisms: None Reported Past Surgical History: Heart Catheterization, Heart Catheterization With Stent, Hysterectomy, Orthopedic Surgery Additional Past Surgical History / Comment(s): RT ROTATOR CUFF REPAIR, CYSTS REMOVED FROM UNDER ARMS AND HANDS, 4 stents, 07/18/18 left subclavian stent. Past Anesthesia/Blood Transfusion Reactions: No Reported Reaction Date of Last Stent Placement:: Nov 2017 Past Psychological History: Depression Smoking Status: Current every day smoker Past Alcohol Use History: None Reported Past Drug Use History: None Reported - Past Family History Mother Family Medical History: Cancer Sister(s) Family Medical History: Cancer General Exam Limitations: no limitations General appearance: alert, in distress Head exam: Present: atraumatic, normocephalic Eye exam: Present: normal appearance, PERRL ENT exam: Present: normal exam Neck exam: Present: normal inspection. Absent: tenderness, meningismus Respiratory exam: Present: respiratory distress, wheezes, rhonchi Cardiovascular Exam: Present: regular rate, normal rhythm GI/Abdominal exam: Present: soft. Absent: distended, tenderness, guarding Extremities exam: Present: normal inspection, normal capillary refill Neurological exam: Present: alert Psychiatric exam: Present: anxious Skin exam: Present: warm, dry, intact. Absent: cyanosis, diaphoretic Course Vital Signs 08/05/21 08/05/21 08/05/21 14:37 14:50 15:16 Temperature 97.7 F Pulse Rate 76 75 72 Respiratory 26 H 26 H 16 Rate Blood Pressure 64/40 80/50 88/60 O2 Sat by Pulse 95 95 95 Oximetry 08/05/21 08/05/21 08/05/21 15:17 15:28 15:42 Temperature Pulse Rate 72 70 75 Respiratory 18 18 16 Rate Blood Pressure 107/58 O2 Sat by Pulse 97 Oximetry 08/05/21 16:56 Temperature Pulse Rate 74 Respiratory 16 Rate Blood Pressure 116/70 O2 Sat by Pulse 95 Oximetry - Reevaluation(s) Reevaluation #1: 08/05/21 17:29 Breathing has improved, blood pressure normalized. EKG Findings - EKG Comments: EKG Findings:: EKG: Sinus rhythm rate of 75, IL interval 157, QRS duration 90, QTC [address] segment elevation, T-wave inversion in V2 and V3 and lead 3 Medical Decision Making - Medical Decision Making 61-year-old female presenting with dyspnea, right-sided chest pain. Chest x-ray negative for large focal pneumonia, no pneumothorax. I did perform CT imaging of the brain as this patient was mildly confused initially. This is negative for acute findings. Chest relatively normal laboratory testing. She will be treated for COPD exacerbation and dehydration. Case discussed with Rudolph holland for [facility] - Lab Data Result diagrams: 08/05/21 14:32 08/05/21 14:32 Lab Results 08/05/21 08/05/21 08/05/21 Range/Units 14:32 14:32 14:32 WBC 11.0 H (3.8-10.6) k/uL RBC 4.74 (3.80-5.40) m/uL Hgb 14.3 (11.4-16.0) gm/dL Hct 45.3 (34.0-46.0) % MCV 95.6 D (80.0-100.0) fL MCH 30.2 (25.0-35.0) pg MCHC 31.6 (31.0-37.0) g/dL RDW 15.5 (11.5-15.5) % Plt Count 426 (150-450) k/uL MPV 7.0 Neutrophils % 65 % Lymphocytes % 24 % Monocytes % 7 % Eosinophils % 1 % Basophils % 1 % Neutrophils # 7.2 (1.3-7.7) k/uL Lymphocytes # 2.7 (1.0-4.8) k/uL Monocytes # 0.7 (0-1.0) k/uL Eosinophils # 0.1 (0-0.7) k/uL Basophils # 0.1 (0-0.2) k/uL Hypochromasia Slight PT 10.2 (9.0-12.0) sec INR 0.9 (<1.2) APTT 21.2 L (22.0-30.0) sec VBG pH 7.37 (7.31-7.41) VBG pCO2 46 (37-51) mmHg VBG HCO3 26 (24-28) mmol/L Sodium (137-145) mmol/L Potassium (3.5-5.1) mmol/L Chloride (98-107) mmol/L Carbon Dioxide (22-30) mmol/L Anion Gap mmol/L BUN (7-17) mg/dL Creatinine (0.52-1.04) mg/dL Est GFR (CKD-EPI)AfAm (>60 ml/min/1.73 sqM) Est GFR (CKD-EPI)NonAf (>60 ml/min/1.73 sqM) Glucose (74-99) mg/dL POC Glucose (mg/dL) (75-99) mg/dL POC Glu Land Classifier ID Plasma Lactic Acid Stepan (0.7-2.0) mmol/L Calcium (8.4-10.2) mg/dL Magnesium (1.6-2.3) mg/dL Total Bilirubin (0.2-1.3) mg/dL AST (14-36) U/L ALT (4-34) U/L Alkaline Phosphatase (38-126) U/L Troponin I (0.000-0.034) ng/mL Total Protein (6.3-8.2) g/dL Albumin (3.5-5.0) g/dL 08/05/21 08/05/21 08/05/21 Range/Units 14:32 14:32 14:32 WBC (3.8-10.6) k/uL RBC (3.80-5.40) m/uL Hgb (11.4-16.0) gm/dL Hct (34.0-46.0) % MCV (80.0-100.0) fL MCH (25.0-35.0) pg MCHC (31.0-37.0) g/dL RDW (11.5-15.5) % Plt Count (150-450) k/uL MPV Neutrophils % % Lymphocytes % % Monocytes % % Eosinophils % % Basophils % % Neutrophils # (1.3-7.7) k/uL Lymphocytes # (1.0-4.8) k/uL Monocytes # (0-1.0) k/uL Eosinophils # (0-0.7) k/uL Basophils # (0-0.2) k/uL Hypochromasia PT (9.0-12.0) sec INR (<1.2) APTT (22.0-30.0) sec VBG pH (7.31-7.41) VBG pCO2 (37-51) mmHg VBG HCO3 (24-28) mmol/L Sodium 132 L (137-145) mmol/L Potassium 5.3 H (3.5-5.1) mmol/L Chloride 99 (98-107) mmol/L Carbon Dioxide 25 (22-30) mmol/L Anion Gap 8 mmol/L BUN 12 (7-17) mg/dL Creatinine 1.27 H (0.52-1.04) mg/dL Est GFR (CKD-EPI)AfAm 52 (>60 ml/min/1.73 sqM) Est GFR (CKD-EPI)NonAf 45 (>60 ml/min/1.73 sqM) Glucose 62 L (74-99) mg/dL POC Glucose (mg/dL) (75-99) mg/dL POC Glu Land Classifier ID Plasma Lactic Acid Stepan 2.0 (0.7-2.0) mmol/L Calcium 8.8 (8.4-10.2) mg/dL Magnesium 2.1 (1.6-2.3) mg/dL Total Bilirubin 0.5 (0.2-1.3) mg/dL AST 33 (14-36) U/L ALT 12 (4-34) U/L Alkaline Phosphatase 99 (38-126) U/L Troponin I <0.012 (0.000-0.034) ng/mL Total Protein 7.6 (6.3-8.2) g/dL Albumin 4.4 (3.5-5.0) g/dL 08/05/21 Range/Units 15:41 WBC (3.8-10.6) k/uL RBC (3.80-5.40) m/uL Hgb (11.4-16.0) gm/dL Hct (34.0-46.0) % MCV (80.0-100.0) fL MCH (25.0-35.0) pg MCHC (31.0-37.0) g/dL RDW (11.5-15.5) % Plt Count (150-450) k/uL MPV Neutrophils % % Lymphocytes % % Monocytes % % Eosinophils % % Basophils % % Neutrophils # (1.3-7.7) k/uL Lymphocytes # (1.0-4.8) k/uL Monocytes # (0-1.0) k/uL Eosinophils # (0-0.7) k/uL Basophils # (0-0.2) k/uL Hypochromasia PT (9.0-12.0) sec INR (<1.2) APTT (22.0-30.0) sec VBG pH (7.31-7.41) VBG pCO2 (37-51) mmHg VBG HCO3 (24-28) mmol/L Sodium (137-145) mmol/L Potassium (3.5-5.1) mmol/L Chloride (98-107) mmol/L Carbon Dioxide (22-30) mmol/L Anion Gap mmol/L BUN (7-17) mg/dL Creatinine (0.52-1.04) mg/dL Est GFR (CKD-EPI)AfAm (>60 ml/min/1.73 sqM) Est GFR (CKD-EPI)NonAf (>60 ml/min/1.73 sqM) Glucose (74-99) mg/dL POC Glucose (mg/dL) 102 H (75-99) mg/dL POC Glu Land Classifier ID Glory Butler Plasma Lactic Acid Stepan (0.7-2.0) mmol/L Calcium (8.4-10.2) mg/dL Magnesium (1.6-2.3) mg/dL Total Bilirubin (0.2-1.3) mg/dL AST (14-36) U/L ALT (4-34) U/L Alkaline Phosphatase (38-126) U/L Troponin I (0.000-0.034) ng/mL Total Protein (6.3-8.2) g/dL Albumin (3.5-5.0) g/dL Disposition Clinical Impression: Chronic bronchitis with COPD (chronic obstructive pulmonary disease), Hypotension, Dehydration Disposition: ADMITTED IP TO THIS HOSP Condition: Stable Is patient prescribed a controlled substance at d/c from ED?: No Referrals: Jose F Mcwilliams MD [Primary Care Provider] - 1-2 days Time of Disposition: 17:44
[2021-08-05 15:26] LABS: Partial Thromboplastin Time 21.2 sec (22.0-30.0)
--- NOTE | 2021-08-05 15:31 | CT ---
EXAMINATION TYPE: CT brain wo con DATE OF EXAM: 08/05/2021 HISTORY: AMS CT DLP: 1102.4 mGycm. Automated Exposure Control for Dose Reduction was Utilized. TECHNIQUE: CT scan of the head is performed without contrast. COMPARISON: CT brain June 18, 2021. FINDINGS: There is no acute intracranial hemorrhage or midline shift identified. There is mild diff use ventricular and sulcal prominence consistent with diffuse age-related cerebral atrophy redemonstr ated. Mild low attenuation in the periventricular white matter redemonstrated. The globes are intact and the visualized sinuses are clear. IMPRESSION: No acute intracranial hemorrhage or midline shift. There is mild diffuse cerebral atrop hy and chronic small vessel ischemic change redemonstrated. No significant change from most recent p rior CT.
[2021-08-05 16:00] LABS: Glucose,Whole Blood 102 mg/dL (75-99)
[2021-08-05] MEDS ORDERED: IPRATROPIUM-ALBUTEROL 3 ML NEB INHALATION PRN (17:28)
[2021-08-05] MEDS: SODIUM CHLORIDE 0.9% 1,000 ML IV SCH (19:00)
[2021-08-05] MEDS: methylPREDNISolone SOD SUCCI 125 MG/2 ML VIAL IV SCH (20:16)
[2021-08-05] MEDS: IPRATROPIUM-ALBUTEROL 3 ML NEB INHALATION SCH (21:34)
[2021-08-06] MEDS: methylPREDNISolone SOD SUCCI 125 MG/2 ML VIAL IV SCH ×2 (00:15→05:39)
[2021-08-06 03:52] VITALS: RESP 16
[2021-08-06] MEDS: SODIUM CHLORIDE 0.9% 1,000 ML IV SCH (05:40)
[2021-08-06] MEDS ORDERED: METOCLOPRAMIDE 5 MG/ML 2 ML VIAL IVP PRN (06:02)
[2021-08-06] MEDS: IPRATROPIUM-ALBUTEROL 3 ML NEB INHALATION SCH ×2 (07:49→11:38)
[2021-08-06 07:52] LABS: Glucose,Whole Blood 148 mg/dL (75-99)
[2021-08-06] MEDS ORDERED: METOPROLOL TARTRATE 25 MG TAB PO SCH (09:00)
[2021-08-06] MEDS ORDERED: CLOPIDOGREL 75 MG TAB PO SCH (09:00)
[2021-08-06] MEDS ORDERED: LEVOFLOXACIN 500 MG TAB PO SCH (09:00)
[2021-08-06] MEDS ORDERED: ESCITALOPRAM 20 MG TAB PO SCH (09:00)
[2021-08-06] MEDS ORDERED: cloNIDine HCL 0.2 MG TAB PO SCH (09:00)
[2021-08-06] MEDS ORDERED: ASPIRIN 81 MG PO SCH (09:00)
[2021-08-06] MEDS ORDERED: GABAPENTIN 300 MG CAP PO SCH (09:00)
[2021-08-06] MEDS ORDERED: LEVOFLOXACIN 750 MG TAB PO SCH (09:00)
[2021-08-06] MEDS ORDERED: LEVOTHYROXINE 100 MCG TAB PO SCH (09:00)
[2021-08-06] MEDS ORDERED: ONDANSETRON 4 MG/2 ML VIAL IVP PRN (10:03)
[2021-08-06 10:21] LABS: Basophils % (A) 0 %; Eosinophils # (A) 0.2 k/uL (0-0.7); Eosinophils % (A) 1 %; HCT 51.7 % (34.0-46.0); HGB 15.6 gm/dL (11.4-16.0); Hypochromasia Moderate; Lymphocytes % (A) 4 %; MCH 29.2 pg (25.0-35.0); MCHC 30.2 g/dL (31.0-37.0); MCV 96.6 fL (80.0-100.0); Mean Platelet Volume 6.9; Monocytes # (A) 0.3 k/uL (0-1.0); Monocytes % (A) 1 %; Neutrophils # (A) 21.4 k/uL (1.3-7.7); Neutrophils % (A) 93 %; Platelet Count 428 k/uL (150-450); RBC 5.35 m/uL (3.80-5.40); RDW 14.7 % (11.5-15.5)
[2021-08-06 10:29] LABS: African American GFR (CKD) 62 (>60 ml/min/1.73 sqM); Anion Gap 9 mmol/L; Blood Urea Nitrogen 17 mg/dL (7-17); Calcium 9.6 mg/dL (8.4-10.2); Carbon Dioxide 28 mmol/L (22-30); Chloride 98 mmol/L (98-107); Glucose 137 mg/dL (74-99); Non-African American GFR(CKD) 54 (>60 ml/min/1.73 sqM); Potassium 5.4 mmol/L (3.5-5.1); Sodium 135 mmol/L (137-145)
[2021-08-06 12:00] LABS: Glucose,Whole Blood 121 mg/dL (75-99)
[2021-08-06 13:41] VITALS: BP 150/75; PULSE 65; TEMP 98.3
--- NOTE | 2021-08-06 14:04 | P.HPIM ---
History of Present Illness H&P Date: 08/06/21 This is a pleasant 61-year-old female who presented to the emergency department with increasing shortness of breath along with some chest wall pain and numbness and tingling to her hands. Patient reports that she wears 2 L of oxygen in the outpatient setting and follows with Hanna Torres with pulmonary. Patient's primary care provider is Dr. Mcwilliams and we are currently covering this week. Patient reports that she does have nebulizers and inhalers and has not been compliant with them and has all the necessary equipment and supplies at home. Patient also admits to smoking approximately 9 cigarettes per day and denies any other illicit drug use or alcohol use. Patient also having some hypotension in the ER which she reports is chronic and asymptomatic and also has been having frequent coughing spells resulting in vomiting and dehydration. Labs on admission show a WBC of 11.0, hemoglobin is 14.3, sodium is 132, potassium 5.3, BUN is 12, creatinine is 1.27, lactic acid 2.0, magnesium 2.1, troponin was negative, BNP was 748. Patient was given a dose of antibiotics prophylactically and also started on fluids along with IV steroids and breathing inhalational treatments. Patient slightly confused on ER admission and underwent a CT of the brain which shows no acute intracranial hemorrhage or midline shift with mild diffuse cerebral atrophy and chronic small vessel ischemic changes redemonstrated with no significant change from recent prior CT. Patient does have a past medical history of asthma with COPD, coronary artery disease, chest pain with angina, seizure disorder, thyroid disorder, and neuropathy to bilateral hands legs and right foot. Patient has had past history of heart catheterization with stents and follows with Dr. Vale outpatient. Patient was admitted for dehydration and bronchitis with COPD. Chest x-ray in the ER shows no acute pulmonary process with mild cardiomegaly pulmonary vasculature is normal and lungs are clear. Review Of Systems: Constitutional: No fever, no chills, no night sweats. No weight change. No weakness, fatigue or lethargy. No daytime sleepiness. EENT: No headache. No blurred vision or double vision, no loss of vision. No l oss of Hearing, no ringing in the ears, no dizziness. No nasal drainage or congestion. No epistaxis. No sore throat. Lungs: Reports intermittent shortness of breath, reports coughing spells that le ad to vomiting, no sputum production. No wheezing. Cardiovascular: Reports chest wall pain from coughing, no lower extremity edema. No palpitations. No paroxysmal nocturnal dyspnea. No orthopnea. No lightheadedness or dizziness. No syncopal episodes. Abdominal: No abdominal pain. No nausea, reports vomiting from coughing spells. No diarrhea. No constipation. No bloody or tarry stools.. No loss of appetite. Genitourinary: No dysuria, increased frequency, urgency. No urinary retention. Musculoskeletal: No myalgias. No muscle weakness, no gait dysfunction, no frequent falls. No back pain. No neck pain. Integumentary: No wounds, no lesions. No rash or pruritus. No unusual bruisi ng. No change in hair or nails. Neurologic: No aphasia. No facial droop. No change in mentation. No head injury. No headache. No paralysis. No paresthesia. Psychiatric: No depression. No anxiety. No mood swings. Endocrine: No abnormal blood sugars. No weight change. No excessive sweating or thirst. No cold intolerance. Rest of the 14 point review of systems were negative except for mentioned above PHYSICAL EXAMINATION: GENERAL: The patient is alert and oriented x4, Well developed, well nourished. HEENT: Pupils are round and equally reacting to light. EOMI. no scleral icterus. No conjunctival pallor. Normocephalic, atraumatic. No pharyngeal erythema. No thyromegaly. CARDIOVASCULAR: S1 and S2 muffled PULMONARY: diminished breath sounds bilaterally with no wheezing or rhonchi noted. ABDOMEN: soft. Nontender on exam. obese. non-distended, normoactive bowel sounds. No palpable organomegaly. MUSCULOSKELETAL: No joint swelling or deformity. EXTREMITIES: No cyanosis, clubbing, or pedal edema. NEUROLOGICAL: Gross neurological examination did not reveal any focal deficits. SKIN: No rashes. Assessment: COPD acute exacerbation Chronic hypoxic hypercapnic respiratory failure chronically wears 2 L via nasal cannula Mild dehydration secondary to vomiting from coughing spells History of asthma Coronary artery disease Seizure disorder Thyroid disorder GI prophylaxis DVT prophylaxis Full code Plan: Recommend to continue with current medications and management of COPD with continued breathing inhalational treatments. Patient was given a dose of steroids and started on IV steroids and will decrease the amount as patient has minimal wheezing noted on exam. Recommend continue with breathing inhalational treatments and patient was also having episodes of vomiting secondary to coughing spells and will use Zofran and Reglan. Patient continues to have vomiting and has been hydrated with gentle normal saline and repeat labs this morning showing sodium mildly improved at 135, potassium 5.4, creatinine trending down at 1.11. WBC elevated at 23 most likely reactive secondary to high-dose IV steroids. Patient is afebrile and chest x-ray shows no acute pulmo nary process. Patient is requesting to go home and will monitor closely for improvement in vomiting and coughing spells. The impression and plan of care has been dictated by Polly Dickens, nurse practitioner as directed. MD Miguel I have performed a history and examination and MDM of this patient, discussed the same with the dictator, and agree with the dictator's assessment and plan as written ,documented as a scribe. Based on total visit time, I have performed more than 50% of the visit. Any additional findings or plans will be noted. 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 Left carotid blockage History of Any Multi-Drug Resistant Organisms: None Reported Past Surgical History: Heart Catheterization, Heart Catheterization With Stent, Hysterectomy, Orthopedic Surgery Additional Past Surgical History / Comment(s): RT ROTATOR CUFF REPAIR, CYSTS REMOVED FROM UNDER ARMS AND HANDS, 4 stents, 07/18/18 left subclavian stent. Past Anesthesia/Blood Transfusion Reactions: No Reported Reaction Date of Last Stent Placement:: Nov 2017 Past Psychological History: Depression Smoking Status: Current every day smoker Past Alcohol Use History: None Reported Past Drug Use History: None Reported - Past Family History Mother Family Medical History: Cancer Sister(s) Family Medical History: Cancer Medications and Allergies Home Medications Medication Instructions Recorded Confirmed Type Escitalopram [Lexapro] 20 mg PO BID 11/28/17 08/05/21 History Doxepin [SINEquan] 10 mg PO HS 02/27/19 08/05/21 History Budesonide-Formot 160-4.5 Mcg 2 puff INHALATION RT-BID 04/24/19 08/05/21 History [Symbicort 160-4.5 Mcg Inhaler] Clopidogrel [Plavix] 75 mg PO DAILY 09/11/19 08/05/21 History Aspirin [Children's Aspirin] 81 mg PO DAILY 09/25/19 08/05/21 History Levothyroxine Sodium 200 mcg PO DAILY 08/20/20 08/05/21 History Nitroglycerin Sl Tabs [Nitrostat] 0.4 mg SL Q5M PRN 08/20/20 08/05/21 History levETIRAcetam [Keppra] 1,500 mg PO BID 12/11/20 08/05/21 History Albuterol Inhaler [Ventolin Hfa 2 puff INHALATION RT-QID PRN 06/18/21 08/05/21 History Inhaler] Albuterol Nebulized [Ventolin 2.5 mg INHALATION RT-Q6H PRN 06/18/21 08/05/21 History Nebulized] Gabapentin 600 mg PO TID 06/18/21 08/05/21 History Ipratropium-Albuterol Nebulize 3 ml INHALATION RT-Q6H PRN 06/18/21 08/05/21 History [Duoneb 0.5 mg-3 mg/3 ml Soln] Metoprolol Tartrate [Lopressor] 25 mg PO BID #60 tab 06/20/21 08/05/21 Rx Ipratropium-Albuterol Nebulize 3 ml INHALATION TID 30 Days #90 08/06/21 Rx [Duoneb 0.5 mg-3 mg/3 ml Soln] each Levofloxacin [Levaquin] 750 mg PO Q48H 4 Days #4 tab 08/06/21 Rx Metoclopramide [Reglan] 5 mg PO Q8H PRN #10 tab 08/06/21 Rx Ondansetron Odt [Zofran Odt] 4 mg PO Q8HR PRN #10 tab 08/06/21 Rx cloNIDine HCL 0.2 mg PO BID 08/06/21 08/06/21 History Allergies Allergy/AdvReac Type Severity Reaction Status Date / Time No Known Allergies Allergy Verified 08/05/21 15:53 Physical Exam Vitals: Vital Signs Temp Pulse Pulse Resp BP BP Pulse Ox 08/06/21 07:50 97 08/06/21 07:00 98.8 F 75 16 178/79 93 L 08/06/21 02:29 98.3 F 70 16 146/69 96 08/05/21 19:32 98.2 F 68 18 83/46 88 L 08/05/21 18:11 97.8 F 75 16 106/52 95 08/05/21 16:56 74 16 116/70 95 08/05/21 15:42 75 16 107/58 97 08/05/21 15:28 70 18 08/05/21 15:17 72 18 08/05/21 15:16 72 16 88/60 95 08/05/21 14:50 75 26 H 80/50 95 08/05/21 14:37 97.7 F 76 26 H 64/40 95 Intake and Output 08/05/21 08/06/21 08/06/21 22:59 06:59 14:59 Other: # Voids 1 1 Weight 81.647 kg Results CBC & Chem 7: 08/06/21 10:07 08/06/21 10:07 Labs: Abnormal Lab Results - Last 24 Hours (Table) 08/05/21 08/05/21 08/05/21 Range/Units 14:32 14:32 14:32 WBC 11.0 H (3.8-10.6) k/uL APTT 21.2 L (22.0-30.0) sec Sodium 132 L (137-145) mmol/L Potassium 5.3 H (3.5-5.1) mmol/L Creatinine 1.27 H (0.52-1.04) mg/dL Glucose 62 L (74-99) mg/dL POC Glucose (mg/dL) (75-99) mg/dL 08/05/21 08/06/21 Range/Units 15:41 07:50 WBC (3.8-10.6) k/uL APTT (22.0-30.0) sec Sodium (137-145) mmol/L Potassium (3.5-5.1) mmol/L Creatinine (0.52-1.04) mg/dL Glucose (74-99) mg/dL POC Glucose (mg/dL) 102 H 148 H (75-99) mg/dL Thrombosis Risk Factor Assmnt - Choose All That Apply Any of the Below Risk Factors Present?: Yes Each Factor Represents 1 point: Abnormal pulmonary function (COPD), Obesity (BMI >25) Other Risk Factors: Yes Each Risk Factor Represents 2 Points: Age 61-74 years Other congenital or acquired thrombophilia - If yes, enter type in comment: No Thrombosis Risk Factor Assessment Total Risk Factor Score: 4 Thrombosis Risk Factor Assessment Level: Moderate Risk
[2021-08-06] MEDS ORDERED: DOXEPIN 10 MG CAP PO SCH (21:00)
[2021-08-06] MEDS ORDERED: methylPREDNISolone SOD SUCCI 40 MG/ML 1 ML VIAL IV SCH (21:00)
--- NOTE | 2021-08-07 19:54 | P.DS ---
Providers Date of admission: 08/05/21 17:28 Expected date of discharge: 08/06/21 Attending physician: Brian Gibson Primary care physician: Jose F Mcwilliams Hospital Course: Final diagnosis COPD acute exacerbation Chronic hypoxic hypercapnic respiratory failure chronically wears 2 L via nasal cannula Mild dehydration secondary to vomiting from coughing spells History of asthma Coronary artery disease Seizure disorder Thyroid disorder GI prophylaxis DVT prophylaxis Full code Discharge disposition Patient is being discharged in a stable condition with guarded prognosis to home. Patient will follow-up with Dr. Mcwilliams in the outpatient setting upon discharge. Patient is to also follow up with [facility] as scheduled. Patient will continue levaquin q48 hours for 4 days to complete the course. Total time taken is greater than 35 minutes. Hospital course This is a 61-year-old female who was recently admitted with shortness of breath and copd exacerbation with coughing spells. Patient had been having vomiting from her coughing spells. Patient improved with gentle IV hydration and breathing inhalational treatments and was being closely monitored. Patient did receive one dose of steroids in the ER. Patient does not like to be on steroids as she reports it swells her feet. Patient is feeling much better and would like to go home today. Discussed in detail with her daughter about discharge planning. Patient needs follow up this week with Dr. Mcwilliams and also pulmonary. Currently no reports of chest pain, worsening shortness of breath, or palpitations. Patient is afebrile. No reports of nausea or vomiting and p atient is tolerating diet. Patient will be discharged home today. guarded prognosis. Encouraged patient to quit smoking. Physical exam: Gen: This is a 61 year old female, awake alert and oriented x3. well developed well nourished. HEENT: Head is atraumatic, normocephalic. Pupils equal, round. Sclerae is anicteric. NECK: Supple. No JVD. No lymphadenopathy. No thyromegaly. LUNGS: diminished breath sounds with no wheezes or rhonchi. No intercostal retractions. HEART: Regular rate and rhythm. No murmur. ABDOMEN: Soft. Bowel sounds are present. No masses. No tenderness. EXTREMITIES: No pedal edema. No calf tenderness. NEUROLOGICAL: Patient is awake, alert and oriented x3. Cranial nerves 2 through 12 are grossly intact. Please refer to medication reconciliation sheet for a list of medications. The impression and plan of care has been dictated by Polly Dickens, Nurse Practitioner as directed. Dr. Nichelle MD I have performed a history and examination and MDM of this patient, discussed the same with the dictator, and agree with the dictator's assessment and plan as written ,documented as a scribe. Based on total visit time, I have performed more than 50% of the visit. Patient Condition at Discharge: Stable Plan - Discharge Summary Discharge Rx Participant: No New Discharge Prescriptions: New Ipratropium-Albuterol Nebulize [Duoneb 0.5 mg-3 mg/3 ml Soln] 3 ml INHALATION TID 30 Days #90 each Metoclopramide [Reglan] 5 mg PO Q8H PRN #10 tab PRN Reason: Nausea Ondansetron Odt [Zofran Odt] 4 mg PO Q8HR PRN #10 tab PRN Reason: Nausea Levofloxacin [Levaquin] 750 mg PO Q48H 4 Days #4 tab Continue Escitalopram [Lexapro] 20 mg PO BID Doxepin [SINEquan] 10 mg PO HS Budesonide-Formot 160-4.5 Mcg [Symbicort 160-4.5 Mcg Inhaler] 2 puff INHALATION RT-BID Clopidogrel [Plavix] 75 mg PO DAILY Aspirin [Children's Aspirin] 81 mg PO DAILY Nitroglycerin Sl Tabs [Nitrostat] 0.4 mg SL Q5M PRN PRN Reason: Chest Pain levETIRAcetam [Keppra] 1,500 mg PO BID Albuterol Inhaler [Ventolin Hfa Inhaler] 2 puff INHALATION RT-QID PRN PRN Reason: Shortness Of Breath Ipratropium-Albuterol Nebulize [Duoneb 0.5 mg-3 mg/3 ml Soln] 3 ml INHALATION RT-Q6H PRN PRN Reason: Shortness Of Breath Levothyroxine Sodium 200 mcg PO DAILY Gabapentin 600 mg PO TID Albuterol Nebulized [Ventolin Nebulized] 2.5 mg INHALATION RT-Q6H PRN PRN Reason: Shortness Of Breath Metoprolol Tartrate [Lopressor] 25 mg PO BID #60 tab cloNIDine HCL 0.2 mg PO BID Discharge Medication List Escitalopram [Lexapro] 20 mg PO BID 11/28/17 [History] Doxepin [SINEquan] 10 mg PO HS 02/27/19 [History] Budesonide-Formot 160-4.5 Mcg [Symbicort 160-4.5 Mcg Inhaler] 2 puff INHALATION RT-BID 04/24/19 [History] Clopidogrel [Plavix] 75 mg PO DAILY 09/11/19 [History] Aspirin [Children's Aspirin] 81 mg PO DAILY 09/25/19 [History] Levothyroxine Sodium 200 mcg PO DAILY 08/20/20 [History] Nitroglycerin Sl Tabs [Nitrostat] 0.4 mg SL Q5M PRN 08/20/20 [History] levETIRAcetam [Keppra] 1,500 mg PO BID 12/11/20 [History] Albuterol Inhaler [Ventolin Hfa Inhaler] 2 puff INHALATION RT-QID PRN 06/18/21 [History] Albuterol Nebulized [Ventolin Nebulized] 2.5 mg INHALATION RT-Q6H PRN 06/18/21 [History] Gabapentin 600 mg PO TID 06/18/21 [History] Ipratropium-Albuterol Nebulize [Duoneb 0.5 mg-3 mg/3 ml Soln] 3 ml INHALATION RT-Q6H PRN 06/18/21 [History] Metoprolol Tartrate [Lopressor] 25 mg PO BID #60 tab 06/20/21 [Rx] Ipratropium-Albuterol Nebulize [Duoneb 0.5 mg-3 mg/3 ml Soln] 3 ml INHALATION TID 30 Days #90 each 08/06/21 [Rx] Levofloxacin [Levaquin] 750 mg PO Q48H 4 Days #4 tab 08/06/21 [Rx] Metoclopramide [Reglan] 5 mg PO Q8H PRN #10 tab 08/06/21 [Rx] Ondansetron Odt [Zofran Odt] 4 mg PO Q8HR PRN #10 tab 08/06/21 [Rx] cloNIDine HCL 0.2 mg PO BID 08/06/21 [History] Follow up Appointment(s)/Referral(s): Jose F Mcwilliams MD [Primary Care Provider] - 1-2 days Melissa,Sandra, NPC [Nurse Practitioner] - 1 Week Ambulatory/Diagnostic Orders: Complete Blood Count w/diff [LAB.AMB] Time Frame: 1 Week, Location: None Selected Patient Instructions/Handouts: COPD (Chronic Obstructive Pulmonary Disease) (DC), Hypotension (DC) Activity/Diet/Wound Care/Special Instructions: Activity Limited until follow-up Follow-up with primary care provider on discharge Follow-up with pulmonary on discharge Continue with breathing inhalational treatments 3 times daily and as needed along with inhalers as prescribed Continue with oxygen supplementation of 2 L via nasal cannula and maintaining oxygen saturation of 92% and above Continue to attempt to quit smoking Recommend repeat labs with follow-up primary appointment May use Reglan and/or Zofran as needed for nausea Continue taking medications as prescribed Discharge Disposition: HOME SELF-CARE
== END 2021-08-06 15:19 | disposition home or self-care (01) ==
LOC: EC 14:06 → 6NMEDSUR 17:28
PROVIDERS: ADMIT Hospitalist; ATTEND Hospitalist
DX: J44.1 Chronic obstructive pulmonary disease with (acute) exacerbation (principal); E86.0 Dehydration; J96.11 Chronic respiratory failure with hypoxia; J96.12 Chronic respiratory failure with hypercapnia; I95.9 Hypotension, unspecified; I25.10 Atherosclerotic heart disease of native coronary artery without angina pectoris; G40.909 Epilepsy, unspecified, not intractable, without status epilepticus; I25.119 Atherosclerotic heart disease of native coronary artery with unspecified angina pectoris; G62.9 Polyneuropathy, unspecified; I65.22 Occlusion and stenosis of left carotid artery; F32.A Depression, unspecified; F17.210 Nicotine dependence, cigarettes, uncomplicated; Z99.81 Dependence on supplemental oxygen; Z91.19 Patient's noncompliance with other medical treatment and regimen; E07.9 Disorder of thyroid, unspecified; R11.10 Vomiting, unspecified; E66.9 Obesity, unspecified; Z68.30 Body mass index [BMI] 30.0-30.9, adult; Z79.51 Long term (current) use of inhaled steroids; Z79.02 Long term (current) use of antithrombotics/antiplatelets; Z79.82 Long term (current) use of aspirin; Z79.890 Hormone replacement therapy; Z79.899 Other long term (current) drug therapy; Z95.5 Presence of coronary angioplasty implant and graft; Z90.710 Acquired absence of both cervix and uterus; Z95.828 Presence of other vascular implants and grafts; Z80.9 Family history of malignant neoplasm, unspecified; Z71.6 Tobacco abuse counseling
CPT/HCPCS: 96376; 96374; 96375; 96361; 99285; 36415; 94640 ×2; 94760; 93005; 83880; 80053; 80048; 82803; 83605; 83735; 84484; 85025 ×2; 85610; 85730; 71046; 70450; G0378 ×2; J2765; J2930 ×2; J2405

== ENCOUNTER 2021-10-03 15:48 | Emergency (ER) | payer MEDICARE ==
[2021-10-03 15:54] VITALS: TEMP 98.3
[2021-10-03] MEDS ORDERED: SODIUM CHLORIDE 0.9% 1,000 ML IV STA (16:05)
--- NOTE | 2021-10-03 16:08 | ED ---
General Adult HPI - General Chief complaint: Seizure Stated complaint: R56.9 Seizure Time Seen by Provider: 10/03/21 15:51 Source: patient, EMS Mode of arrival: EMS Limitations: no limitations - History of Present Illness Initial comments: Dictation was produced using [employer] dictation software. please excuse any grammatical, word or spelling errors. Chief Complaint: 61-year-old female past medical history of seizure presents to the ER after seizure History of Present Illness: C1-year-old female she has established diagnosis of seizure. She takes Keppra daily. Patient states she was at her low-dose house having a conversation. She then went into the house when the next she remembers is coming to the emergency room. Patient states she has a seizure at least once a month. Her last seizure she believes was 5 months ago. Patient has an outpatient neurologist that manages her seizure, Dr. Brito. Patient states she's been having diarrhea for the last 48 hours. Denies any recent antibiotic. No recent travel. Patient denies any abdominal pain. Patient was given Versed by prehospital providers. The ROS documented in this emergency department record has been reviewed and confirmed by me. Those systems with pertinent positive or negative responses have been documented in the HPI. All other systems are other negative and/or noncontributory. PHYSICAL EXAM: General Impression: Alert and oriented x3, not in acute distress, sleepy but arousable HEENT: Normocephalic atraumatic, extra-ocular movements intact, pupils equal and reactive to light bilaterally, mucous membranes moist. Cardiovascular: Heart regular rate and rhythm Chest: Able to complete full sentences, no retractions, no tachypnea Abdomen: abdomen soft, non-tender, non-distended, no organomegaly Musculoskeletal: Pulses present and equal in all extremities, no peripheral edema Motor: no focal deficits noted Neurological: CN II-XII grossly intact, no focal motor or sensory deficits noted Skin: Intact with no visualized rashes Psych: Normal affect and mood ED course: 61-year-old female presents to the emergency room for seizure. She has had diarrhea for the last 48 hours. Vital signs upon arrival are within acceptable limits. Patient somnolent bedside however likely secondary to the Versed administration. Laboratory evaluation obtained. CBC acceptable limits. Metabolic panel shows greater 1.57 slightly elevated compared to baseline. His likely secondary to dehydration from recent diarrhea. Patient IV fluids. She is monitored in the emergency department for approximately 2 hours and 30 minutes. Reevaluated at bedside at 6:20 PM found to be stable medical condition. She is much more awake and alert. Repeat vital signs are unremarkable. Daughters at the bedside reports that patient has seizures at least once every other month. They both report that is not uncommon for patient to have a seizure. She just established care. She is compliant with her seizure medications. Patient reevaluated and is well-appearing and is agreeable for discharge. She feels improved. Return precautions discussed. EKG interpretation: Ventricular rate 65, sinus rhythm,. Interval 155, QS 102, QTC 476. No UT prolongation, no QTC prolongation, no ST or T-wave changes noted. EKG compared to aug 05 2021 showing no changes. Overall, this EKG is unremarkable - Related Data Home Medications Medication Instructions Recorded Confirmed Escitalopram [Lexapro] 20 mg PO BID 11/28/17 10/03/21 Clopidogrel [Plavix] 75 mg PO DAILY 09/11/19 10/03/21 Aspirin [Children's Aspirin] 81 mg PO DAILY 09/25/19 10/03/21 Levothyroxine Sodium 200 mcg PO DAILY 08/20/20 10/03/21 Nitroglycerin Sl Tabs [Nitrostat] 0.4 mg SL Q5M PRN 08/20/20 10/03/21 levETIRAcetam [Keppra] 1,500 mg PO BID 12/11/20 10/03/21 Gabapentin 600 mg PO TID 06/18/21 10/03/21 Ipratropium-Albuterol Nebulize 3 ml INHALATION RT-Q6H PRN 06/18/21 10/03/21 [Duoneb 0.5 mg-3 mg/3 ml Soln] cloNIDine HCL 0.2 mg PO BID 08/06/21 10/03/21 Buprenorphine HCl/Naloxone HCl 1 tab SUBLINGUAL DAILY 10/03/21 10/03/21 [Zubsolv 0.7-0.18 mg Tablet Sl] Previous Rx's Medication Instructions Recorded Metoprolol Tartrate [Lopressor] 25 mg PO BID #60 tab 06/20/21 Allergies Allergy/AdvReac Type Severity Reaction Status Date / Time No Known Allergies Allergy Verified 10/03/21 17:46 Review of Systems ROS Statement: Those systems with pertinent positive or pertinent negative responses have been documented in the HPI. ROS Other: All systems not noted in ROS Statement are negative. 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 Left carotid blockage History of Any Multi-Drug Resistant Organisms: None Reported Past Surgical History: Heart Catheterization, Heart Catheterization With Stent, Hysterectomy, Orthopedic Surgery Additional Past Surgical History / Comment(s): RT ROTATOR CUFF REPAIR, CYSTS REMOVED FROM UNDER ARMS AND HANDS, 4 stents, 07/18/18 left subclavian stent. Past Anesthesia/Blood Transfusion Reactions: No Reported Reaction Date of Last Stent Placement:: Nov 2017 Past Psychological History: Depression Smoking Status: Current every day smoker Past Alcohol Use History: None Reported Past Drug Use History: None Reported - Past Family History Mother Family Medical History: Cancer Sister(s) Family Medical History: Cancer General Exam Limitations: no limitations Course Vital Signs 10/03/21 10/03/21 15:49 18:14 Temperature 98.3 F Pulse Rate 68 67 Respiratory 18 16 Rate Blood Pressure 92/38 112/75 O2 Sat by Pulse 95 100 Oximetry Medical Decision Making - Lab Data Result diagrams: 10/03/21 16:23 10/03/21 16:23 Lab Results 10/03/21 10/03/21 Range/Units 16:23 16:23 WBC 10.7 H (3.8-10.6) k/uL RBC 5.30 (3.80-5.40) m/uL Hgb 15.2 (11.4-16.0) gm/dL Hct 48.8 H (34.0-46.0) % MCV 91.9 (80.0-100.0) fL MCH 28.6 (25.0-35.0) pg MCHC 31.1 (31.0-37.0) g/dL RDW 15.9 H (11.5-15.5) % Plt Count 327 (150-450) k/uL MPV 6.5 Neutrophils % 65 % Lymphocytes % 26 % Monocytes % 5 % Eosinophils % 2 % Basophils % 1 % Neutrophils # 7.0 (1.3-7.7) k/uL Lymphocytes # 2.7 (1.0-4.8) k/uL Monocytes # 0.5 (0-1.0) k/uL Eosinophils # 0.3 (0-0.7) k/uL Basophils # 0.1 (0-0.2) k/uL Sodium 134 L (137-145) mmol/L Potassium 4.4 (3.5-5.1) mmol/L Chloride 99 (98-107) mmol/L Carbon Dioxide 27 (22-30) mmol/L Anion Gap 8 mmol/L BUN 8 (7-17) mg/dL Creatinine 1.57 H (0.52-1.04) mg/dL Est GFR (CKD-EPI)AfAm 41 (>60 ml/min/1.73 sqM) Est GFR (CKD-EPI)NonAf 35 (>60 ml/min/1.73 sqM) Glucose 91 (74-99) mg/dL Calcium 8.9 (8.4-10.2) mg/dL Magnesium 2.1 (1.6-2.3) mg/dL Disposition Clinical Impression: Recurrent seizures Disposition: HOME SELF-CARE Condition: Fair Instructions (If sedation given, give patient instructions): Recurrent Seizures in Adults (ED) Is patient prescribed a controlled substance at d/c from ED?: No Referrals: Jose F Mcwilliams MD [Primary Care Provider] - 1-2 days Time of Disposition: 18:19
[2021-10-03 16:31] LABS: Basophils # (A) 0.1 k/uL (0-0.2); Basophils % (A) 1 %; Eosinophils # (A) 0.3 k/uL (0-0.7); Eosinophils % (A) 2 %; HCT 48.8 % (34.0-46.0); HGB 15.2 gm/dL (11.4-16.0); Lymphocytes # (A) 2.7 k/uL (1.0-4.8); Lymphocytes % (A) 26 %; MCH 28.6 pg (25.0-35.0); MCHC 31.1 g/dL (31.0-37.0); MCV 91.9 fL (80.0-100.0); Mean Platelet Volume 6.5; Monocytes # (A) 0.5 k/uL (0-1.0); Monocytes % (A) 5 %; Neutrophils % (A) 65 %; Platelet Count 327 k/uL (150-450); RDW 15.9 % (11.5-15.5); WBC 10.7 k/uL (3.8-10.6)
[2021-10-03 16:39] LABS: Calcium 8.9 mg/dL (8.4-10.2); Magnesium 2.1 mg/dL (1.6-2.3); Potassium 4.4 mmol/L (3.5-5.1)
[2021-10-03 18:15] VITALS: BP 112/75; PULSE 67; RESP 16
== END 2021-10-03 23:00 | disposition home or self-care (01) ==
LOC: EC 15:48
DX: G40.909 Epilepsy, unspecified, not intractable, without status epilepticus (principal); J45.909 Unspecified asthma, uncomplicated; I25.10 Atherosclerotic heart disease of native coronary artery without angina pectoris; J44.9 Chronic obstructive pulmonary disease, unspecified; E07.9 Disorder of thyroid, unspecified; F32.A Depression, unspecified; F17.200 Nicotine dependence, unspecified, uncomplicated
CPT/HCPCS: 36415; 80048; 80177; 83735; 85025; 93005; 96360; 99284

== ENCOUNTER 2022-02-24 22:35 | Observation (INO) | payer MEDICARE ==
[2022-02-24 23:01] LABS: Glucose,Whole Blood 144 mg/dL (70-110)
--- NOTE | 2022-02-24 23:10 | ED ---
Altered Mental Status HPI - General Chief Complaint: Neuro Symptoms/Deficit Stated Complaint: confusion Time Seen by Provider: 02/24/22 23:10 Source: patient, RN notes reviewed, old records reviewed Mode of arrival: EMS Limitations: no limitations - History of Present Illness Initial Comments: This is a 61-year-old female DF for evaluation. Patient confusion, presents for evaluation of positive confusion. Has had before with elevated CO2 levels. Gee gaviria denies shortness of breath, patient symptoms around 2 PM today and his have been persistent. No headache chest pain shortness breath or abdominal pain. No fevers nausea vomiting or diarrhea. MD Complaint: altered mental status, confusion -: hour(s) Severity: moderate Consistency of Symptoms: waxing and waning, getting worse Context: history of similar presentation Associated Symptoms: denies other symptoms - Related Data Home Medications Medication Instructions Recorded Confirmed Escitalopram [Lexapro] 20 mg PO BID 11/28/17 11/06/21 Clopidogrel [Plavix] 75 mg PO DAILY 09/11/19 11/06/21 Aspirin [Children's Aspirin] 81 mg PO DAILY 09/25/19 11/06/21 Levothyroxine Sodium 200 mcg PO DAILY 08/20/20 11/06/21 Nitroglycerin Sl Tabs [Nitrostat] 0.4 mg SL Q5M PRN 08/20/20 11/06/21 levETIRAcetam [Keppra] 1,500 mg PO BID 12/11/20 11/06/21 Gabapentin 600 mg PO TID 06/18/21 11/06/21 Ipratropium-Albuterol Nebulize 3 ml INHALATION RT-Q6H PRN 06/18/21 11/06/21 [Duoneb 0.5 mg-3 mg/3 ml Soln] cloNIDine HCL 0.2 mg PO BID 08/06/21 11/06/21 Buprenorphine HCl/Naloxone HCl 1 tab SUBLINGUAL DAILY 11/06/21 11/06/21 [Zubsolv 5.7-1.4 mg Tablet Sl] Nirmatrelvir/Ritonavir [Paxlovid 1 dose PO BID 11/06/21 11/06/21 2X150 mg-100 mg (Eua)] Previous Rx's Medication Instructions Recorded Metoprolol Tartrate [Lopressor] 25 mg PO BID #60 tab 06/20/21 Allergies Allergy/AdvReac Type Severity Reaction Status Date / Time No Known Allergies Allergy Verified 02/24/22 22:48 Review of Systems ROS Statement: Those systems with pertinent positive or pertinent negative responses have been documented in the HPI. ROS Other: All systems not noted in ROS Statement are negative. 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 Left carotid blockage History of Any Multi-Drug Resistant Organisms: None Reported Past Surgical History: Heart Catheterization, Heart Catheterization With Stent, Hysterectomy, Orthopedic Surgery Additional Past Surgical History / Comment(s): RT ROTATOR CUFF REPAIR, CYSTS REMOVED FROM UNDER ARMS AND HANDS, 4 stents, 07/18/18 left subclavian stent. Past Anesthesia/Blood Transfusion Reactions: No Reported Reaction Date of Last Stent Placement:: Nov 2017 Past Psychological History: Depression Smoking Status: Current every day smoker Past Alcohol Use History: None Reported Past Drug Use History: None Reported - Past Family History Mother Family Medical History: Cancer Sister(s) Family Medical History: Cancer General Exam Limitations: no limitations General appearance: alert, in no apparent distress Head exam: Present: atraumatic, normocephalic, normal inspection Eye exam: Present: normal appearance, PERRL, EOMI. Absent: scleral icterus, conjunctival injection, periorbital swelling ENT exam: Present: normal exam, mucous membranes moist Neck exam: Present: normal inspection. Absent: tenderness, meningismus, lymphadenopathy Respiratory exam: Present: normal lung sounds bilaterally. Absent: respiratory distress, wheezes, rales, rhonchi, stridor Cardiovascular Exam: Present: regular rate, normal rhythm, normal heart sounds. Absent: systolic murmur, diastolic murmur, rubs, gallop, clicks GI/Abdominal exam: Present: soft, normal bowel sounds. Absent: distended, tenderness, guarding, rebound, rigid Extremities exam: Present: normal inspection, full ROM, normal capillary refill. Absent: tenderness, pedal edema, joint swelling, calf tenderness Back exam: Present: normal inspection Neurological exam: Present: alert, oriented X3, CN II-XII intact Psychiatric exam: Present: normal affect, normal mood Skin exam: Present: warm, dry, intact, normal color. Absent: rash Course Vital Signs 02/24/22 02/25/22 02/25/22 22:40 00:10 01:12 Temperature 98.1 F Pulse Rate 92 80 80 Respiratory 20 18 18 Rate Blood Pressure 60/42 110/56 90/54 O2 Sat by Pulse 86 L 97 95 Oximetry - Reevaluation(s) Reevaluation #1: 02/25/22 00:36 Medical records reviewed Reevaluation #2: 02/25/22 02:57 Patient has mild improvement in mental status with blood pressure remains soft Reevaluation #3: 02/25/22 02:57 Patient informed results and questions answered - Consultations Consultation #1: Spoke with Dr. Mcwilliams who agrees to admit this patient Medical Decision Making - Medical Decision Making 61 female to the emergency department for evaluation of severe weakness altered mental status improving no acute cause found patient does have soft blood pressures dehydration will be admitted for resuscitation - Lab Data Result diagrams: 02/24/22 23:14 02/24/22 23:13 Lab Results 02/24/22 02/24/22 02/24/22 Range/Units 22:59 23:13 23:13 WBC (3.8-10.6) k/uL RBC (3.80-5.40) m/uL Hgb (11.4-16.0) gm/dL Hct (34.0-46.0) % MCV (80.0-100.0) fL MCH (25.0-35.0) pg MCHC (31.0-37.0) g/dL RDW (11.5-15.5) % Plt Count (150-450) k/uL MPV Neutrophils % % Lymphocytes % % Monocytes % % Eosinophils % % Basophils % % Neutrophils # (1.3-7.7) k/uL Lymphocytes # (1.0-4.8) k/uL Monocytes # (0-1.0) k/uL Eosinophils # (0-0.7) k/uL Basophils # (0-0.2) k/uL Hypochromasia PT 9.8 (9.0-12.0) sec INR 0.9 (<1.2) APTT 24.9 (22.0-30.0) sec Sodium 131 L (137-145) mmol/L Potassium 4.3 (3.5-5.1) mmol/L Chloride 100 (98-107) mmol/L Carbon Dioxide 22 (22-30) mmol/L Anion Gap 9 mmol/L BUN 27 H (7-17) mg/dL Creatinine 1.43 H (0.52-1.04) mg/dL Est GFR (CKD-EPI)AfAm 45 (>60 ml/min/1.73 sqM) Est GFR (CKD-EPI)NonAf 39 (>60 ml/min/1.73 sqM) Glucose 136 H (74-99) mg/dL POC Glucose (mg/dL) 144 H (70-110) mg/dL POC Glu Emblem Fuser Tender ID Brianna Watts Calcium 8.6 (8.4-10.2) mg/dL Total Bilirubin 0.2 (0.2-1.3) mg/dL AST 20 (14-36) U/L ALT 13 (4-34) U/L Alkaline Phosphatase 96 (38-126) U/L Troponin I (0.000-0.034) ng/mL Total Protein 6.8 (6.3-8.2) g/dL Albumin 4.0 (3.5-5.0) g/dL Urine Color Urine Appearance (Clear) Urine pH (5.0-8.0) Ur Specific [place] (1.001-1.035) Urine Protein (Negative) Urine Glucose (UA) (Negative) Urine Ketones (Negative) Urine Blood (Negative) Urine Nitrite (Negative) Urine Bilirubin (Negative) Urine Urobilinogen (<2.0) mg/dL Ur Leukocyte Esterase (Negative) Urine Opiates Screen (NotDetected) Ur Oxycodone Screen (NotDetected) Urine Methadone Screen (NotDetected) Ur Propoxyphene Screen (NotDetected) Ur Barbiturates Screen (NotDetected) U Tricyclic Antidepress (NotDetected) Ur Phencyclidine Scrn (NotDetected) Ur Amphetamines Screen (NotDetected) U Methamphetamines Scrn (NotDetected) U Benzodiazepines Scrn (NotDetected) Urine Cocaine Screen (NotDetected) U Marijuana (THC) Screen (NotDetected) 02/24/22 02/24/22 02/25/22 Range/Units 23:13 23:14 01:43 WBC 10.7 H (3.8-10.6) k/uL RBC 4.19 (3.80-5.40) m/uL Hgb 12.6 (11.4-16.0) gm/dL Hct 38.5 (34.0-46.0) % MCV 92.1 (80.0-100.0) fL MCH 30.2 (25.0-35.0) pg MCHC 32.8 (31.0-37.0) g/dL RDW 15.0 (11.5-15.5) % Plt Count 246 (150-450) k/uL MPV 7.9 Neutrophils % 63 % Lymphocytes % 26 % Monocytes % 5 % Eosinophils % 2 % Basophils % 1 % Neutrophils # 6.7 (1.3-7.7) k/uL Lymphocytes # 2.8 (1.0-4.8) k/uL Monocytes # 0.6 (0-1.0) k/uL Eosinophils # 0.2 (0-0.7) k/uL Basophils # 0.1 (0-0.2) k/uL Hypochromasia Slight PT (9.0-12.0) sec INR (<1.2) APTT (22.0-30.0) sec Sodium (137-145) mmol/L Potassium (3.5-5.1) mmol/L Chloride (98-107) mmol/L Carbon Dioxide (22-30) mmol/L Anion Gap mmol/L BUN (7-17) mg/dL Creatinine (0.52-1.04) mg/dL Est GFR (CKD-EPI)AfAm (>60 ml/min/1.73 sqM) Est GFR (CKD-EPI)NonAf (>60 ml/min/1.73 sqM) Glucose (74-99) mg/dL POC Glucose (mg/dL) (70-110) mg/dL POC Glu Emblem Fuser Tender ID Calcium (8.4-10.2) mg/dL Total Bilirubin (0.2-1.3) mg/dL AST (14-36) U/L ALT (4-34) U/L Alkaline Phosphatase (38-126) U/L Troponin I <0.012 (0.000-0.034) ng/mL Total Protein (6.3-8.2) g/dL Albumin (3.5-5.0) g/dL Urine Color Urine Appearance (Clear) Urine pH (5.0-8.0) Ur Specific [place] (1.001-1.035) Urine Protein (Negative) Urine Glucose (UA) (Negative) Urine Ketones (Negative) Urine Blood (Negative) Urine Nitrite (Negative) Urine Bilirubin (Negative) Urine Urobilinogen (<2.0) mg/dL Ur Leukocyte Esterase (Negative) Urine Opiates Screen Not Detected (NotDetected) Ur Oxycodone Screen Not Detected (NotDetected) Urine Methadone Screen Not Detected (NotDetected) Ur Propoxyphene Screen Not Detected (NotDetected) Ur Barbiturates Screen Not Detected (NotDetected) U Tricyclic Antidepress Detected H (NotDetected) Ur Phencyclidine Scrn Not Detected (NotDetected) Ur Amphetamines Screen Not Detected (NotDetected) U Methamphetamines Scrn Not Detected (NotDetected) U Benzodiazepines Scrn Not Detected (NotDetected) Urine Cocaine Screen Not Detected (NotDetected) U Marijuana (THC) Screen Detected H (NotDetected) 02/25/22 Range/Units 01:43 WBC (3.8-10.6) k/uL RBC (3.80-5.40) m/uL Hgb (11.4-16.0) gm/dL Hct (34.0-46.0) % MCV (80.0-100.0) fL MCH (25.0-35.0) pg MCHC (31.0-37.0) g/dL RDW (11.5-15.5) % Plt Count (150-450) k/uL MPV Neutrophils % % Lymphocytes % % Monocytes % % Eosinophils % % Basophils % % Neutrophils # (1.3-7.7) k/uL Lymphocytes # (1.0-4.8) k/uL Monocytes # (0-1.0) k/uL Eosinophils # (0-0.7) k/uL Basophils # (0-0.2) k/uL Hypochromasia PT (9.0-12.0) sec INR (<1.2) APTT (22.0-30.0) sec Sodium (137-145) mmol/L Potassium (3.5-5.1) mmol/L Chloride (98-107) mmol/L Carbon Dioxide (22-30) mmol/L Anion Gap mmol/L BUN (7-17) mg/dL Creatinine (0.52-1.04) mg/dL Est GFR (CKD-EPI)AfAm (>60 ml/min/1.73 sqM) Est GFR (CKD-EPI)NonAf (>60 ml/min/1.73 sqM) Glucose (74-99) mg/dL POC Glucose (mg/dL) (70-110) mg/dL POC Glu Emblem Fuser Tender ID Calcium (8.4-10.2) mg/dL Total Bilirubin (0.2-1.3) mg/dL AST (14-36) U/L ALT (4-34) U/L Alkaline Phosphatase (38-126) U/L Troponin I (0.000-0.034) ng/mL Total Protein (6.3-8.2) g/dL Albumin (3.5-5.0) g/dL Urine Color Yellow Urine Appearance Clear (Clear) Urine pH 5.5 (5.0-8.0) Ur Specific [place] 1.010 (1.001-1.035) Urine Protein Trace H (Negative) Urine Glucose (UA) Negative (Negative) Urine Ketones Negative (Negative) Urine Blood Negative (Negative) Urine Nitrite Negative (Negative) Urine Bilirubin Negative (Negative) Urine Urobilinogen <2.0 (<2.0) mg/dL Ur Leukocyte Esterase Negative (Negative) Urine Opiates Screen (NotDetected) Ur Oxycodone Screen (NotDetected) Urine Methadone Screen (NotDetected) Ur Propoxyphene Screen (NotDetected) Ur Barbiturates Screen (NotDetected) U Tricyclic Antidepress (NotDetected) Ur Phencyclidine Scrn (NotDetected) Ur Amphetamines Screen (NotDetected) U Methamphetamines Scrn (NotDetected) U Benzodiazepines Scrn (NotDetected) Urine Cocaine Screen (NotDetected) U Marijuana (THC) Screen (NotDetected) - EKG Data -: EKG Interpreted by Me (KG is sinus rhythm 93 AL 175 QRS 90 QTC 417) - Radiology Data Radiology results: report reviewed (Chest x-ray and CT brain are negative for acute disease), image reviewed Disposition Clinical Impression: Chronic bronchitis with COPD (chronic obstructive pulmonary disease), Dehydration, Weakness, Altered mental status Disposition: ADMITTED IP TO THIS HOSP Condition: Fair Is patient prescribed a controlled substance at d/c from ED?: No Referrals: Jose F Mcwilliams MD [Primary Care Provider] - 1-2 days Time of Disposition: 03:00
[2022-02-24 23:28] LABS: Basophils # (A) 0.1 k/uL (0-0.2); Basophils % (A) 1 %; Eosinophils # (A) 0.2 k/uL (0-0.7); Eosinophils % (A) 2 %; HCT 38.5 % (34.0-46.0); HGB 12.6 gm/dL (11.4-16.0); Hypochromasia Slight; Lymphocytes # (A) 2.8 k/uL (1.0-4.8); Lymphocytes % (A) 26 %; MCH 30.2 pg (25.0-35.0); MCHC 32.8 g/dL (31.0-37.0); MCV 92.1 fL (80.0-100.0); Mean Platelet Volume 7.9; Monocytes # (A) 0.6 k/uL (0-1.0); Monocytes % (A) 5 %; Neutrophils # (A) 6.7 k/uL (1.3-7.7); Neutrophils % (A) 63 %; Platelet Count 246 k/uL (150-450); RBC 4.19 m/uL (3.80-5.40); WBC 10.7 k/uL (3.8-10.6)
[2022-02-24 23:42] LABS: INR 0.9 (<1.2); Partial Thromboplastin Time 24.9 sec (22.0-30.0); Prothrombin Time 9.8 sec (9.0-12.0)
--- NOTE | 2022-02-24 23:44 | XR ---
EXAMINATION TYPE: XR chest 1V DATE OF EXAM: 02/24/2022 COMPARISON: 12/22/2021 HISTORY: Altered mental status TECHNIQUE: Single view FINDINGS: Heart is normal. Lungs are clear of infiltrate. There are some mild interstitial densities and subsegmental atelectasis at the lung bases. The bony thorax is intact. IMPRESSION: There is minimal subsegmental atelectasis at the lung bases which appears new compared to old exam. Normal heart.
[2022-02-24 23:54] LABS: Calcium 8.6 mg/dL (8.4-10.2); Potassium 4.3 mmol/L (3.5-5.1); Total Bilirubin 0.2 mg/dL (0.2-1.3); Total Protein 6.8 g/dL (6.3-8.2)
--- NOTE | 2022-02-25 00:15 | CT ---
EXAMINATION TYPE: CT brain wo con DATE OF EXAM: 02/24/2022 COMPARISON: 08/05/2021 HISTORY: AMS, pt started becoming confused around [address] DLP: 1141.4 mGycm Automated exposure control for dose reduction was used. Ventricles have normal size. There is no mass effect or midline shift. No sign of intracranial hemorr consuelo. The calvarium is intact. Skull base is intact. There is normal aeration of the mastoid sinuses. IMPRESSION: Minimal atrophy appropriate for age. No acute intracranial abnormality. No change.
[2022-02-25] MEDS ORDERED: SODIUM CHLORIDE 0.9% 1,000 ML IV ONE (01:13)
[2022-02-25] MEDS ORDERED: SODIUM CHLORIDE 0.9% 500 ML 500 ML IV STA (01:16)
[2022-02-25] MEDS ORDERED: SODIUM CHLORIDE 0.9% 1,000 ML IV STA ×2 (01:16→01:19)
[2022-02-25 02:04] LABS: Appearance,Urine Clear (Clear); Bilirubin,Urine Negative (Negative); Blood,Urine Negative (Negative); Color,Urine Yellow; Glucose,Urine (UA) Negative (Negative); Ketones,Urine Negative (Negative); Leukocyte Esterase,Urine Negative (Negative); Nitrite,Urine Negative (Negative); PH, Urine 5.5 (5.0-8.0); Protein,Urine Trace (Negative); Urobilinogen,Urine <2.0 mg/dL (<2.0)
[2022-02-25 02:19] LABS: Amphetamine Screen,Urine Not Detected (NotDetected); Barbiturate Screen,Urine Not Detected (NotDetected); Benzodiazepines Screen,Urine Not Detected (NotDetected); Cocaine Screen,Urine Not Detected (NotDetected); Methadone Screen, Urine Not Detected (NotDetected); Opiate Screen,Urine Not Detected (NotDetected); Oxycodone Screen, Urine Not Detected (NotDetected); Phencyclidine Screen,Urine Not Detected (NotDetected); Tricyclic Antidepressant,Urine Detected (NotDetected); Urn Cannabinoid Scrn Detected (NotDetected)
[2022-02-25] MEDS ORDERED: ONDANSETRON 4 MG/2 ML VIAL IVP PRN (02:55)
[2022-02-25] MEDS ORDERED: NALOXONE 0.4 MG/ML 1 ML VIAL IV PRN (02:55)
[2022-02-25 04:09] LABS: VBG PH 7.15 (7.31-7.41)
[2022-02-25] MEDS ORDERED: IPRATROPIUM-ALBUTEROL 3 ML NEB INHALATION STA (04:15)
[2022-02-25] MEDS ORDERED: NALOXONE 0.4 MG/ML 1 ML VIAL IVP STA (04:15)
[2022-02-25] MEDS ORDERED: IPRATROPIUM-ALBUTEROL 3 ML NEB INHALATION PRN (04:52)
[2022-02-25] MEDS: SODIUM CHLORIDE 0.9% 1,000 ML IV SCH ×3 (05:14→21:24)
[2022-02-25] MEDS: NALOXONE (MDV) 2 MG in SODIUM CHLORIDE 0.9% 250 ML IV SCH ×7 (05:40→23:35)
[2022-02-25] MEDS: IPRATROPIUM-ALBUTEROL 3 ML NEB INHALATION SCH ×4 (07:26→19:56)
--- NOTE | 2022-02-25 08:37 | P.HPIM ---
History of Present Illness H&P Date: 02/25/22 Chief Complaint: Weakness, altered mental status, COPD exacerbation This is a 61-year-old female who presented to the ER yesterday with complaints of altered mental status and shortness of breath. See medical history as noted below. She is seen today sitting on the edge of the bed, with 6 L of oxygen. She was on BiPAP overnight. She follows with Dr. Marques on an outpatient basis, and does have home oxygen and reportedly uses at about twice a week. CO2 was elevated upon admission. Blood pressure low on admission but has stabilized. Review of Systems Constitutional: Reports weakness, Denies chills, Denies fever Cardiovascular: Denies chest pain, Denies lightheadedness Respiratory: Reports dyspnea, Reports home oxygen, Denies cough Gastrointestinal: Denies abdominal pain, Denies nausea, Denies vomiting Musculoskeletal: Denies arm numbness/tingling, Denies leg numbness/tingling Neurological: Denies headaches, Denies lack of coordination Past Medical History Past Medical History: Asthma, Coronary Artery Disease (CAD), Chest Pain / Angina, COPD, Seizure Disorder, Thyroid Disorder Additional Past Medical History / Comment(s): NEUROPATHY TO BILAT HANDS AND LEGS AND RT FOOT. Left carotid blockage History of Any Multi-Drug Resistant Organisms: None Reported Past Surgical History: Heart Catheterization, Heart Catheterization With Stent, Hysterectomy, Orthopedic Surgery Additional Past Surgical History / Comment(s): RT ROTATOR CUFF REPAIR, CYSTS REM RAJANI FROM UNDER ARMS AND HANDS, 4 stents, 07/18/18 left subclavian stent. Past Anesthesia/Blood Transfusion Reactions: No Reported Reaction Date of Last Stent Placement:: Nov 2017 Past Psychological History: Depression Smoking Status: Current every day smoker Past Alcohol Use History: None Reported Past Drug Use History: None Reported - Past Family History Mother Family Medical History: Cancer Sister(s) Family Medical History: Cancer Medications and Allergies Home Medications Medication Instructions Recorded Confirmed Type Escitalopram [Lexapro] 20 mg PO BID 11/28/17 11/06/21 History Clopidogrel [Plavix] 75 mg PO DAILY 09/11/19 11/06/21 History Aspirin [Children's Aspirin] 81 mg PO DAILY 09/25/19 11/06/21 History Levothyroxine Sodium 200 mcg PO DAILY 08/20/20 11/06/21 History Nitroglycerin Sl Tabs [Nitrostat] 0.4 mg SL Q5M PRN 08/20/20 11/06/21 History levETIRAcetam [Keppra] 1,500 mg PO BID 12/11/20 11/06/21 History Gabapentin 600 mg PO TID 06/18/21 11/06/21 History Ipratropium-Albuterol Nebulize 3 ml INHALATION RT-Q6H PRN 06/18/21 11/06/21 History [Duoneb 0.5 mg-3 mg/3 ml Soln] Metoprolol Tartrate [Lopressor] 25 mg PO BID #60 tab 06/20/21 11/06/21 Rx cloNIDine HCL 0.2 mg PO BID 08/06/21 11/06/21 History Buprenorphine HCl/Naloxone HCl 1 tab SUBLINGUAL DAILY 11/06/21 11/06/21 History [Zubsolv 5.7-1.4 mg Tablet Sl] Nirmatrelvir/Ritonavir [Paxlovid 1 dose PO BID 11/06/21 11/06/21 History 2X150 mg-100 mg (Eua)] Allergies Allergy/AdvReac Type Severity Reaction Status Date / Time No Known Allergies Allergy Verified 02/24/22 22:48 Physical Exam Vitals: Vital Signs Temp Pulse Resp BP Pulse Ox FiO2 02/25/22 08:00 95 02/25/22 07:37 81 02/25/22 07:27 80 02/25/22 07:23 35 02/25/22 06:57 74 12 120/62 98 02/25/22 05:51 87 14 91/48 96 02/25/22 05:08 80 12 112/48 98 02/25/22 05:03 12 02/25/22 04:58 77 02/25/22 04:49 35 02/25/22 04:48 75 02/25/22 01:12 80 18 90/54 95 02/25/22 00:10 80 18 110/56 97 02/24/22 22:40 98.1 F 92 20 60/42 86 L Intake and Output 02/24/22 02/25/22 02/25/22 22:59 06:59 14:59 Other: Weight 86.183 kg - Constitutional General appearance: cooperative, no no acute distress - EENT Eyes: EOMI, PERRLA - Neck Neck: normal ROM, no rigidity - Respiratory Respiratory: bilateral: diminished - Cardiovascular Rhythm: regular Heart sounds: normal: S1, S2 - Gastrointestinal General gastrointestinal: normal bowel sounds, soft - Integumentary Integumentary: normal, normal turgor - Psychiatric Psychiatric: A&O x's 3, appropriate affect, intact judgment & insight Results CBC & Chem 7: 02/24/22 23:14 02/24/22 23:13 Labs: Abnormal Lab Results - Last 24 Hours (Table) 02/24/22 02/24/22 02/24/22 Range/Units 22:59 23:13 23:14 WBC 10.7 H (3.8-10.6) k/uL VBG pH (7.31-7.41) VBG pCO2 (37-51) mmHg Sodium 131 L (137-145) mmol/L BUN 27 H (7-17) mg/dL Creatinine 1.43 H (0.52-1.04) mg/dL Glucose 136 H (74-99) mg/dL POC Glucose (mg/dL) 144 H (70-110) mg/dL Urine Protein (Negative) U Tricyclic Antidepress (NotDetected) U Marijuana (THC) Screen (NotDetected) 02/25/22 02/25/22 02/25/22 Range/Units 01:43 01:43 03:26 WBC (3.8-10.6) k/uL VBG pH 7.15 L* (7.31-7.41) VBG pCO2 74 H* (37-51) mmHg Sodium (137-145) mmol/L BUN (7-17) mg/dL Creatinine (0.52-1.04) mg/dL Glucose (74-99) mg/dL POC Glucose (mg/dL) (70-110) mg/dL Urine Protein Trace H (Negative) U Tricyclic Antidepress Detected H (NotDetected) U Marijuana (THC) Screen Detected H (NotDetected) Assessment and Plan (1) COPD exacerbation Current Visit: No Status: Acute Code(s): J44.1 - CHRONIC OBSTRUCTIVE PULMONARY DISEASE W (ACUTE) EXACERBATION SNOMED Code(s): 042801630 (2) Dehydration Current Visit: Yes Status: Acute Code(s): E86.0 - DEHYDRATION SNOMED Code(s): 01243766 (3) Weakness Current Visit: Yes Status: Acute Code(s): R53.1 - WEAKNESS SNOMED Code(s): 60738941 (4) Altered mental status Current Visit: Yes Status: Acute Code(s): R41.82 - ALTERED MENTAL STATUS, UNSPECIFIED SNOMED Code(s): 541328091 (5) Opiate dependence Current Visit: No Status: Acute Code(s): F11.20 - OPIOID DEPENDENCE, UNCOMPLICATED SNOMED Code(s): 14436183 (6) Hypotension Current Visit: No Status: Acute Code(s): I95.9 - HYPOTENSION, UNSPECIFIED SNOMED Code(s): 79870283 Plan: Will consult pulmonology. Started on steroids. Home meds restarted. Labs ordered for tomorrow morning. GI prophylaxis Protonix ordered. Patient seen and evaluated by nurse practitioner, physician in agreement with plan
[2022-02-25] MEDS: cloNIDine HCL 0.2 MG TAB PO SCH ×2 (09:32→21:24)
[2022-02-25] MEDS: METOPROLOL TARTRATE 25 MG TAB PO SCH ×2 (09:32→21:24)
[2022-02-25] MEDS: BUPRENORPHINE HCL SUBLINGUAL SCH (09:33)
[2022-02-25] MEDS: NALOXONE HCL SUBLINGUAL SCH (09:33)
[2022-02-25] MEDS: methylPREDNISolone SOD SUCCI 125 MG/2 ML VIAL IV SCH ×4 (09:35→23:34)
[2022-02-25] MEDS: GABAPENTIN 300 MG CAP PO SCH ×3 (09:35→21:24)
[2022-02-25] MEDS: PANTOPRAZOLE 40 MG/10 ML VIAL IVP SCH (09:35)
[2022-02-25] MEDS: ESCITALOPRAM 20 MG TAB PO SCH ×2 (09:36→21:24)
[2022-02-25] MEDS: ASPIRIN 81 MG PO SCH (09:36)
[2022-02-25] MEDS: CLOPIDOGREL 75 MG TAB PO SCH (09:36)
[2022-02-25] MEDS: LEVOTHYROXINE 100 MCG TAB PO SCH (09:36)
--- NOTE | 2022-02-25 16:35 | P.CNPUL ---
History of Present Illness Consult date: 02/25/22 Requesting physician: Jose F Mcwilliams Reason for consult: dyspnea, hypoxemia Chief complaint: SOB. History of present illness: Pulmonary consult dated 02/25/2022. 61-year-old female who was seen in the emergency department, on February 24, with a complaint of confusion. She's brought into the emergency room by EMS. The patient was seen by me in the ER, room 15. She apparently denied shortness of breath to the ER physician, and also denied any fevers, abdominal pain, nausea, vomiting, diarrhea, or any genitourinary complaints. There is no headache or chest pain admitted to. Currently, the patient is on 5 L of oxygen. She's getting saline at KVO. She's very lethargic. Chest x-ray shows some basilar atelectasis. Venous blood gas showed a pCO2 of 74 and a pH of 7.15. Drug screen was positive for both tricyclic antidepressants, and THC. Head CT was negative. She has a history of asthma, CAD, chest pain, seizure disorder, hypothyroidism, neuropathy, and a previous catheterization of the heart with stent placement. She apparently continues to smoke cigarettes and may also have underlying COPD. In addition she apparently has a history of depression. White count 10.7, hemoglobin 12.6, hematocrit 38.5, and platelet count 246,000. Coagulation studies were normal. Sodium 131, potassium 4.3, chlorides 100, CO2 22, BUN 27, creatinine 1.43. The rest of the labs look normal. Urine is negative. Drug screen was positive for try cyclic antidepressants and THC. Testing for coronavirus, RSV, and influenza A and influenza B, were negative. Chest x-ray reveals some bibasilar atelectasis. Review of Systems REVIEW OF SYSTEMS: CONSTITUTIONAL: [Negative.] NEUROLOGIC: Confusion, depressed mental status. HEENT: [ Negative.] CARDIAC: [Negative.] PULMONARY: [Negative.] GI: [Negative.] : [Negative.] RHEUMATOLOGIC: [ Negative.] IMMUNOLOGIC: [ Negative.] ENDOCRINE: [Negative. 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 Left carotid blockage History of Any Multi-Drug Resistant Organisms: None Reported Past Surgical History: Heart Catheterization, Heart Catheterization With Stent, Hysterectomy, Orthopedic Surgery Additional Past Surgical History / Comment(s): RT ROTATOR CUFF REPAIR, CYSTS REMOVED FROM UNDER ARMS AND HANDS, 4 stents, 07/18/18 left subclavian stent. Past Anesthesia/Blood Transfusion Reactions: No Reported Reaction Date of Last Stent Placement:: Nov 2017 Past Psychological History: Depression Smoking Status: Current every day smoker Past Alcohol Use History: None Reported Past Drug Use History: None Reported - Past Family History Mother Family Medical History: Cancer Sister(s) Family Medical History: Cancer Medications and Allergies Home Medications Medication Instructions Recorded Confirmed Type Escitalopram [Lexapro] 20 mg PO BID 11/28/17 02/25/22 History Clopidogrel [Plavix] 75 mg PO DAILY 09/11/19 02/25/22 History Levothyroxine Sodium 200 mcg PO DAILY 08/20/20 02/25/22 History Nitroglycerin Sl Tabs [Nitrostat] 0.4 mg SL Q5M PRN 08/20/20 02/25/22 History levETIRAcetam [Keppra] 1,500 mg PO BID 12/11/20 02/25/22 History Gabapentin 600 mg PO TID 06/18/21 02/25/22 History cloNIDine HCL 0.2 mg PO BID 08/06/21 02/25/22 History Buprenorphine HCl/Naloxone HCl 1 tab SUBLINGUAL DAILY 11/06/21 02/25/22 History [Zubsolv 5.7-1.4 mg Tablet Sl] Albuterol Sulfate [Ventolin HFA] 2 puff INHALATION RT-Q6H 02/25/22 02/25/22 History Aspirin EC [Ecotrin Low Dose] 81 mg PO DAILY 02/25/22 02/25/22 History Doxepin [SINEquan] 10 mg PO HS 02/25/22 02/25/22 History Fluticasone/Umeclidin/Vilanter 1 puff INHALATION RT-DAILY 02/25/22 02/25/22 History [Trelegy Ellipta 200-62.5-25] Allergies Allergy/AdvReac Type Severity Reaction Status Date / Time No Known Allergies Allergy Verified 02/25/22 09:48 Physical Exam Osteopathic Statement: *. No significant issues noted on an osteopathic structural exam other than those noted in the History and Physical/Consult. Vitals: Vital Signs Temp Pulse Resp BP Pulse Ox FiO2 02/25/22 13:29 98 F 101 H 19 109/62 98 02/25/22 11:51 98 02/25/22 11:37 96 02/25/22 08:00 95 02/25/22 07:37 81 02/25/22 07:27 80 02/25/22 07:23 35 02/25/22 06:57 74 12 120/62 98 02/25/22 05:51 87 14 91/48 96 02/25/22 05:08 80 12 112/48 98 02/25/22 05:03 12 02/25/22 04:58 77 02/25/22 04:49 35 02/25/22 04:48 75 02/25/22 01:12 80 18 90/54 95 02/25/22 00:10 80 18 110/56 97 02/24/22 22:40 98.1 F 92 20 60/42 86 L No acute distress, lethargic, but does arouse, currently on 5 L of oxygen. HEENT examination is grossly unremarkable. Neck supple. Full range of motion. No adenopathy thyromegaly or neck vein distention. Cardiovascular examination reveals regular rhythm rate. S1-S2 normal. No S3 or S4. No discernible murmur noted. Heart rate 100 bpm. Heart sounds are distant. Lungs reveal scattered bilateral rhonchi. No wheezes. No crackles. Saturations are in the mid to high 90s on 5 L of oxygen. Abdomen soft bowel sounds are heard. No masses or tenderness. Extremities are intact. No cyanosis clubbing or edema. Skin is without rash or lesion. Neurologic examination is brief but nonfocal. Results - Laboratory Findings CBC and BMP: 02/24/22 23:14 02/24/22 23:13 PT/INR, D-dimer PT 9.8 sec (9.0-12.0) 02/24/22 23:13 INR 0.9 (<1.2) 02/24/22 23:13 Abnormal lab findings: Abnormal Labs 02/24/22 02/24/22 12 22:59 23:13 23:14 WBC 10.7 H VBG pH VBG pCO2 Sodium 131 L BUN 27 H Creatinine 1.43 H Glucose 136 H POC Glucose (mg/dL) 144 H Urine Protein U Tricyclic Antidepress U Marijuana (THC) Screen 02/25/22 02/25/22 02/25/22 01:43 01:43 03:26 WBC VBG pH 7.15 L* VBG pCO2 74 H* Sodium BUN Creatinine Glucose POC Glucose (mg/dL) Urine Protein Trace H U Tricyclic Antidepress Detected H U Marijuana (THC) Screen Detected H - Diagnostic Findings Chest x-ray: image reviewed Assessment and Plan Assessment: Confusion/mental status changes, with acute hypercapnic respiratory failure. Patient had similar episode in June 2021. Rule out drug overdose. Chronic hypoxemic respiratory failure, on home O2 at 2 L. History of CAD, with previous stent placement. History of COPD, secondary to chronic and ongoing tobacco use. History of hypothyroidism, rule out myxedema coma. History of seizure disorder. History of hypertension. History of gout. Plan: Plan dated 02/25/2022. Patient's oxygen should be titrated down, and we should accept saturations between 88 - 92%. The patient likely has relatively severe COPD. The patient does use oxygen chronically, at 2 L, 11/10. The patient had a similar episode, back in June 2021. At that time, she was supported with BiPAP. Additional recommendations and suggestions are forthcoming. We'll continue to follow. Labs, x-rays, medications are reviewed. One should avoid all sedatives, hypnotics, narcotics, and tranquilizers in this patient Time with Patient: Greater than 30
[2022-02-25 18:18] VITALS: RESP 20
[2022-02-25] MEDS: FORMOTEROL FUMARATE 20 MCG/2 ML NEBU INHALATION SCH (19:56)
[2022-02-25] MEDS: BUDESONIDE 1 MG/2 ML NEBU INHALATION SCH (19:56)
[2022-02-26] MEDS: NALOXONE (MDV) 2 MG in SODIUM CHLORIDE 0.9% 250 ML IV SCH ×2 (05:00→06:30)
[2022-02-26] MEDS: SODIUM CHLORIDE 0.9% 1,000 ML IV SCH (05:00)
[2022-02-26 05:44] VITALS: BP 128/67; TEMP 97.8
[2022-02-26] MEDS: methylPREDNISolone SOD SUCCI 125 MG/2 ML VIAL IV SCH (06:28)
[2022-02-26] MEDS: LEVOTHYROXINE 100 MCG TAB PO SCH (06:28)
--- NOTE | 2022-02-26 06:39 | P.PN ---
Subjective Progress Note Date: 02/26/22 Principal diagnosis: Mental status changes. Pulmonary consult dated 02/25/2022. 61-year-old female who was seen in the emergency department, on February 24, with a complaint of confusion. She's brought into the emergency room by EMS. The patient was seen by me in the ER, room 15. She apparently denied shortness of breath to the ER physician, and also denied any fevers, abdominal pain, nausea, vomiting, diarrhea, or any genitourinary complaints. There is no headache or ch est pain admitted to. Currently, the patient is on 5 L of oxygen. She's getting saline at KVO. She's very lethargic. Chest x-ray shows some basilar atelectasis. Venous blood gas showed a pCO2 of 74 and a pH of 7.15. Drug screen was positive for both tricyclic antidepressants, and THC. Head CT was negative. She has a history of asthma, CAD, chest pain, seizure disorder, hypothyroidism, neuropathy, and a previous catheterization of the heart with stent placement. She apparently continues to smoke cigarettes and may also have underlying COPD. In addition she apparently has a history of depression. White count 10.7, hemoglobin 12.6, hematocrit 38.5, and platelet count 246,000. Coagulation studies were normal. Sodium 131, potassium 4.3, chlorides 100, CO2 22, BUN 27, creatinine 1.43. The rest of the labs look normal. Urine is negative. Drug screen was positive for try cyclic antidepressants and THC. Testing for coronavirus, RSV, and influenza A and influenza B, were negative. Chest x-ray reveals some bibasilar atelectasis. Progress note dated 02/26/2022. The patient was seen yesterday in consultation, and the emergency department. She came into the hospital with confusion. She had a prior episode like this earlier this year. Please see my earlier consultation and my notes above. Currently she is on 6 L, with saturations are 94%. Temperature 97.8, heart rate 92, respiratory rate 20, and blood pressure 128/67. She is a bit more awake this morning and she was yesterday. No new laboratory data today as yet. X- rays and CAT scans of the brain were reviewed. Objective - Vital Signs Vital signs: Vital Signs Temp 97.8 F 02/26/22 05:00 Pulse 92 02/26/22 05:00 Resp 20 02/26/22 05:00 BP 128/67 02/26/22 05:00 Pulse Ox 94 L 02/26/22 05:00 FiO2 35 02/25/22 20:25 Intake & Output 02/25/22 02/25/22 02/26/22 06:59 18:59 06:59 Intake Total 1240 Balance 1240 Weight 86.183 kg 86.183 kg Intake: Intake, IV Titration 390 Amount Sodium Chloride 0.9% 1, 390 000 ml @ 130 mls/hr IV . [id number] [facility] Rx#:[id number] Oral 850 Other: Voiding Method Bedside Commode # Voids 3 - Exam No acute distress, lethargic, but does arouse, currently on 6 L of oxygen. HEENT examination is grossly unremarkable. Neck supple. Full range of motion. No adenopathy thyromegaly or neck vein distention. Cardiovascular examination reveals regular rhythm rate. S1-S2 normal. No S3 or S4. No discernible murmur noted. Heart rate 92 bpm. Heart sounds are distant. Lungs reveal scattered bilateral rhonchi. No wheezes. No crackles. Saturations is 94% on 6 L. Abdomen soft bowel sounds are heard. No masses or tenderness. Extremities are intact. No cyanosis clubbing or edema. Skin is without rash or lesion. Neurologic examination is brief but nonfocal. - Labs CBC & Chem 7: 02/24/22 23:14 02/24/22 23:13 Assessment and Plan Assessment: Confusion/mental status changes, with acute hypercapnic respiratory failure. Patient had similar episode in June 2021. Rule out drug overdose. Chronic hypoxemic respiratory failure, on home O2 at 2 L. History of CAD, with previous stent placement. History of COPD, secondary to chronic and ongoing tobacco use. History of hypothyroidism, rule out myxedema coma. History of seizure disorder. History of hypertension. History of gout. Plan: Plan dated 02/25/2022. Patient's oxygen should be titrated down, and we should accept saturations between 88 - 92%. The patient likely has relatively severe COPD. The patient does use oxygen chronically, at 2 L, 11/10. The patient had a similar episode, back in June 2021. At that time, she was supported with BiPAP. Additional recommendations and suggestions are forthcoming. We'll continue to follow. Labs, x-rays, medications are reviewed. One should avoid all sedatives, hypnotics, narcotics, and tranquilizers in this patient Plan dated 02/26/2022. The patient is a bit more awake today. She is on 6 L. Saturations are in the low to mid 90s. Labs, x-rays, medications are reviewed. I will check a TSH. Additional recommendations and suggestions are forthcoming. The patient did have a similar episode like this back in June 2021. I saw her at that time. We'll continue to follow make recommendations along the way. Time with Patient: Less than 30
[2022-02-26] MEDS: FORMOTEROL FUMARATE 20 MCG/2 ML NEBU INHALATION SCH (07:50)
[2022-02-26] MEDS: BUDESONIDE 1 MG/2 ML NEBU INHALATION SCH (07:50)
[2022-02-26] MEDS: IPRATROPIUM-ALBUTEROL 3 ML NEB INHALATION SCH (07:50)
[2022-02-26 08:03] VITALS: PULSE 98
--- NOTE | 2022-02-26 08:30 | P.DS ---
Providers Date of admission: 02/25/22 02:55 Attending physician: Jose F Mcwilliams Consults: 02/25/22 08:06 Consult Physician Routine Consulting Provider: Karlie Marques Consult Reason/Comments: copd exacerbation Do you want consulting provider notified?: Yes Primary care physician: Jose F Mcwilliams Hospital Course: Patient 61-year-old white female with severe COPD. She is admitted secondary to CO2 retention. She is placed on appropriate treatment and discharged in stable but guarded condition. Prednisone taper. BiPAP and 24/7 oxygen. Oxygen to be titrated 4 L time. Patient Condition at Discharge: Fair Plan - Discharge Summary Discharge Rx Participant: No New Discharge Prescriptions: New Metoprolol Tartrate [Lopressor] 25 mg PO BID #60 tab Formoterol Fumarate [Perforomist] 20 mcg INHALATION RT-BID 30 Days #120 ml predniSONE [Deltasone] See Taper PO DIRECTED #18 tab Ipratropium-Albuterol Nebulize [Duoneb 0.5 mg-3 mg/3 ml Soln] 3 ml INHALATION RT-QID 30 Days #120 each Continue Escitalopram [Lexapro] 20 mg PO BID Clopidogrel [Plavix] 75 mg PO DAILY Nitroglycerin Sl Tabs [Nitrostat] 0.4 mg SL Q5M PRN PRN Reason: Chest Pain levETIRAcetam [Keppra] 1,500 mg PO BID Doxepin [SINEquan] 10 mg PO HS Aspirin EC [Ecotrin Low Dose] 81 mg PO DAILY Fluticasone/Umeclidin/Vilanter [Trelegy Ellipta 200-62.5-25] 1 puff INHALATION RT-DAILY Levothyroxine Sodium 200 mcg PO DAILY Gabapentin 600 mg PO TID cloNIDine HCL 0.2 mg PO BID Buprenorphine HCl/Naloxone HCl [Zubsolv 5.7-1.4 mg Tablet Sl] 1 tab SUBLINGUAL DAILY Albuterol Sulfate [Ventolin HFA] 2 puff INHALATION RT-Q6H Discharge Medication List Escitalopram [Lexapro] 20 mg PO BID 11/28/17 [History] Clopidogrel [Plavix] 75 mg PO DAILY 09/11/19 [History] Levothyroxine Sodium 200 mcg PO DAILY 08/20/20 [History] Nitroglycerin Sl Tabs [Nitrostat] 0.4 mg SL Q5M PRN 08/20/20 [History] levETIRAcetam [Keppra] 1,500 mg PO BID 12/11/20 [History] Gabapentin 600 mg PO TID 06/18/21 [History] cloNIDine HCL 0.2 mg PO BID 08/06/21 [History] Buprenorphine HCl/Naloxone HCl [Zubsolv 5.7-1.4 mg Tablet Sl] 1 tab SUBLINGUAL DAILY 11/06/21 [History] Albuterol Sulfate [Ventolin HFA] 2 puff INHALATION RT-Q6H 02/25/22 [History] Aspirin EC [Ecotrin Low Dose] 81 mg PO DAILY 02/25/22 [History] Doxepin [SINEquan] 10 mg PO HS 02/25/22 [History] Fluticasone/Umeclidin/Vilanter [Trelegy Ellipta 200-62.5-25] 1 puff INHALATION RT-DAILY 02/25/22 [History] Formoterol Fumarate [Perforomist] 20 mcg INHALATION RT-BID 30 Days #120 ml 02/26/22 [Rx] Ipratropium-Albuterol Nebulize [Duoneb 0.5 mg-3 mg/3 ml Soln] 3 ml INHALATION RT-QID 30 Days #120 each 02/26/22 [Rx] Metoprolol Tartrate [Lopressor] 25 mg PO BID #60 tab 02/26/22 [Rx] predniSONE [Deltasone] See Taper PO DIRECTED #18 tab 02/26/22 [Rx] Follow up Appointment(s)/Referral(s): Jose F Mcwilliams MD [Primary Care Provider] - 1-2 days
[2022-02-26 08:54] LABS: Basophils # (A) 0.01 X 10*3/uL (0.00-0.10); Basophils % (A) 0.1 %; Eosinophils # (A) 0 X 10*3/uL (0.04-0.35); Eosinophils % (A) 0 %; HCT 41.3 % (37.2-46.3); HGB 12.6 g/dL (12.0-15.0); Immature Grans, Automated 1.3 %; Lymphocytes # (A) 0.68 X 10*3/uL (0.90-5.00); Lymphocytes % (A) 4.8 %; MCH 29.1 pg (27.0-32.0); MCHC 30.5 g/dL (32.0-37.0); MCV 95.4 fL (80.0-97.0); Mean Platelet Volume 10.1 fL (9.5-12.2); Monocytes # (A) 0.27 X 10*3/uL (0.20-1.00); Monocytes % (A) 1.9 %; NRBC Per 100 WBC 0 /100 WBCS (0.0-0.0); Neutrophils % (A) 91.9 %; Platelet Count 272 X 10*3/uL (140-440); RBC 4.33 X 10*6/uL (4.10-5.20); RDW 14.9 % (11.5-14.5); WBC 14.25 X 10*3/uL (4.50-10.00)
[2022-02-26 09:17] LABS: ALT 11 U/L (8-44); AST 38 U/L (13-35); African American GFR (CKD) 62.3 (60.0-200.0); Albumin 3.8 g/dL (3.8-4.9); Albumin/Globulin Ratio 1.58 (1.60-3.17); Alkaline Phosphatase 98 U/L (41-126); BUN/Creat Ratio 15.36 Ratio (12.00-20.00); Blood Urea Nitrogen 16.9 mg/dL (9.0-27.0); Calcium 8.8 mg/dL (8.7-10.3); Carbon Dioxide 23.7 mmol/L (20.0-27.5); Chloride 106 mmol/L (96-109); Globulin 2.4 g/dL (1.6-3.3); Glucose 150 mg/dL (70-110); Non-African American GFR(CKD) 53.8 (60.0-200.0); Potassium 4.5 mmol/L (3.5-5.5); Sodium 138 mmol/L (135-145); Total Bilirubin <0.15 mg/dL (0.30-1.20); Total Protein 6.2 g/dL (6.2-8.2)
[2022-02-26] MEDS: ESCITALOPRAM 20 MG TAB PO SCH (09:59)
[2022-02-26] MEDS: PANTOPRAZOLE 40 MG/10 ML VIAL IVP SCH (09:59)
[2022-02-26] MEDS: cloNIDine HCL 0.2 MG TAB PO SCH (09:59)
[2022-02-26] MEDS: CLOPIDOGREL 75 MG TAB PO SCH (09:59)
[2022-02-26] MEDS: GABAPENTIN 300 MG CAP PO SCH (09:59)
[2022-02-26] MEDS: ASPIRIN 81 MG PO SCH (09:59)
[2022-02-26] MEDS: METOPROLOL TARTRATE 25 MG TAB PO SCH (10:01)
[2022-02-26] MEDS: BUPRENORPHINE HCL SUBLINGUAL SCH (10:01)
[2022-02-26] MEDS: NALOXONE HCL SUBLINGUAL SCH (10:01)
[2022-02-26 10:24] LABS: T4, Free (Free Thyroxine) 2.32 ng/dL (0.78-2.19)
== END 2022-02-26 10:57 | disposition home or self-care (01) ==
LOC: EC 22:35 → 6NMEDSUR 02-25 02:55 → 3SCARD 02-25 07:33 → 5NMEDONC 02-25 12:51
PROVIDERS: ADMIT Family Medicine; ATTEND Family Medicine
DX: J96.02 Acute respiratory failure with hypercapnia (principal); J44.1 Chronic obstructive pulmonary disease with (acute) exacerbation; J96.11 Chronic respiratory failure with hypoxia; E86.0 Dehydration; I10 Essential (primary) hypertension; G40.909 Epilepsy, unspecified, not intractable, without status epilepticus; I25.119 Atherosclerotic heart disease of native coronary artery with unspecified angina pectoris; E03.9 Hypothyroidism, unspecified; E87.29 Other acidosis; G62.9 Polyneuropathy, unspecified; I65.22 Occlusion and stenosis of left carotid artery; Z95.5 Presence of coronary angioplasty implant and graft; Z90.710 Acquired absence of both cervix and uterus; Z98.890 Other specified postprocedural states; F11.20 Opioid dependence, uncomplicated; F32.A Depression, unspecified; Z99.81 Dependence on supplemental oxygen; F17.210 Nicotine dependence, cigarettes, uncomplicated; Z80.9 Family history of malignant neoplasm, unspecified; Z79.02 Long term (current) use of antithrombotics/antiplatelets; Z79.82 Long term (current) use of aspirin; Z79.890 Hormone replacement therapy; Z79.899 Other long term (current) drug therapy; Z79.51 Long term (current) use of inhaled steroids
CPT/HCPCS: 96376 ×3; 96361 ×3; 96374; 96375; 99285; 36415; 94660; 94640 ×2; 94760 ×2; 93005; 84439; 80053 ×2; 84443; 82803; 84484; 85025 ×2; 85610; 85730; 81003; 80306; 87636; 71045; 70450; G0378 ×4; J2310; J2930 ×2; C9113 ×2

== ENCOUNTER 2022-04-11 11:54 | Observation (INO) | payer MEDICARE, OTHER ==
[2022-04-11] MEDS ORDERED: ASPIRIN 81 MG PO STA (12:06)
[2022-04-11] MEDS ORDERED: NITROGLYCERIN SL TABS 0.4 MG TAB SUBLINGUAL STA ×3 (12:06)
--- NOTE | 2022-04-11 12:09 | ED ---
General Adult HPI - General Chief complaint: Chest Pain Stated complaint: Chest Pain Time Seen by Provider: 04/11/22 11:56 Source: patient, EMS, RN notes reviewed Mode of arrival: EMS Limitations: no limitations - History of Present Illness Initial comments: Patient is a pleasant 61-year-old female presenting to the emergency department with concerns for chest discomfort. Patient was sitting down watching TV with onset of discomfort. Discomfort is moderate and persistent. Discomfort does radiate towards the back. Discomfort is difficult to describe. Patient does have some dyspnea however this is similar to previous COPD and she is not concerned regarding that. Patient states that is near resolved following nebulizer by EMS. No leg pain or leg swelling. - Related Data Home Medications Medication Instructions Recorded Confirmed Escitalopram [Lexapro] 20 mg PO BID 11/28/17 02/25/22 Clopidogrel [Plavix] 75 mg PO DAILY 09/11/19 02/25/22 Levothyroxine Sodium 200 mcg PO DAILY 08/20/20 02/25/22 Nitroglycerin Sl Tabs [Nitrostat] 0.4 mg SL Q5M PRN 08/20/20 02/25/22 levETIRAcetam [Keppra] 1,500 mg PO BID 12/11/20 02/25/22 Gabapentin 600 mg PO TID 06/18/21 02/25/22 cloNIDine HCL 0.2 mg PO BID 08/06/21 02/25/22 Buprenorphine HCl/Naloxone HCl 1 tab SUBLINGUAL DAILY 11/06/21 02/25/22 [Zubsolv 5.7-1.4 mg Tablet Sl] Albuterol Sulfate [Ventolin HFA] 2 puff INHALATION RT-Q6H 02/25/22 02/25/22 Aspirin EC [Ecotrin Low Dose] 81 mg PO DAILY 02/25/22 02/25/22 Doxepin [SINEquan] 10 mg PO HS 02/25/22 02/25/22 Fluticasone/Umeclidin/Vilanter 1 puff INHALATION RT-DAILY 02/25/22 02/25/22 [Trelegy Ellipta 200-62.5-25] Previous Rx's Medication Instructions Recorded Formoterol Fumarate [Perforomist] 20 mcg INHALATION RT-BID 30 Days 02/26/22 #120 ml Ipratropium-Albuterol Nebulize 3 ml INHALATION RT-QID 30 Days 02/26/22 [Duoneb 0.5 mg-3 mg/3 ml Soln] #120 each Metoprolol Tartrate [Lopressor] 25 mg PO BID #60 tab 02/26/22 predniSONE [Deltasone] See Taper PO DIRECTED #18 tab 02/26/22 Allergies Allergy/AdvReac Type Severity Reaction Status Date / Time No Known Allergies Allergy Verified 02/25/22 09:48 Review of Systems ROS Statement: Those systems with pertinent positive or pertinent negative responses have been documented in the HPI. ROS Other: All systems not noted in ROS Statement are negative. Constitutional: Denies: fever Eyes: Denies: eye pain ENT: Denies: ear pain Respiratory: Reports: as per HPI. Denies: cough Cardiovascular: Reports: as per HPI, chest pain Endocrine: Denies: fatigue Gastrointestinal: Denies: abdominal pain Genitourinary: Denies: dysuria Musculoskeletal: Reports: as per HPI Skin: Denies: rash Neurological: Denies: weakness Past Medical History Past Medical History: Asthma, Coronary Artery Disease (CAD), Chest Pain / Angina, COPD, Seizure Disorder, Thyroid Disorder Additional Past Medical History / Comment(s): NEUROPATHY TO BILAT HANDS AND LEGS AND RT FOOT. Left carotid blockage History of Any Multi-Drug Resistant Organisms: None Reported Past Surgical History: Heart Catheterization, Heart Catheterization With Stent, Hysterectomy, Orthopedic Surgery Additional Past Surgical History / Comment(s): RT ROTATOR CUFF REPAIR, CYSTS REMOVED FROM UNDER ARMS AND HANDS, 4 stents, 07/18/18 left subclavian stent. Past Anesthesia/Blood Transfusion Reactions: No Reported Reaction Date of Last Stent Placement:: Nov 2017 Past Psychological History: Depression Smoking Status: Current every day smoker Past Alcohol Use History: None Reported Past Drug Use History: Marijuana - Past Family History Mother Family Medical History: Cancer Sister(s) Family Medical History: Cancer General Exam Limitations: no limitations General appearance: alert, in no apparent distress Head exam: Present: normocephalic Eye exam: Present: normal appearance Neck exam: Present: normal inspection Respiratory exam: Present: normal lung sounds bilaterally, chest wall tenderness Cardiovascular Exam: Present: regular rate, normal rhythm Expanded Peripheral pulses: 2+: Radial (R), Radial (L), Dorsalis Pedis (R), Dorsalis Pedis (L) GI/Abdominal exam: Present: soft. Absent: tenderness Extremities exam: Present: normal inspection. 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 sent in by a medical professional or institution (, PA, MATH INTERVENTIONIST, urgent care, hospital, or [place] health care facility...) When possible be specific @ -[No] Did you speak to anyone other than the patient for history (EMS, parent, family, police, friend...)? What history was obtained from this source @ -[No] Did you review nursing and triage notes (agree or disagree)? Why? @ -[I reviewed and agree with nursing and triage notes] Were old charts reviewed (outside hosp., previous admission, EMS record, old EKG, old radiological studies, urgent care reports/EKG's, [place] health care facility records)? Report findings @ -[No old charts were reviewed] Differential Diagnosis (chest pain, altered mental status, abdominal pain women, abdominal pain men, vaginal bleeding, weakness, fever, dyspnea, syncope, headache, dizziness, GI bleed, back pain, seizure, CVA, palpatations, mental health)? @ -Differential Chest Pain: Stable Angina, Unstable Angina, STEMI, NSTEMI Aortic Dissection, Pneumothorax, Musculoskeletal, Esophageal Spasm GERD, Cholecystitis, Pancreatitis, Zoster, this is not meant to be an all-inclusive list. EKG interpreted by me (3pts min.). @ -[As above] X-rays interpreted by me (1pt min.). @ -Chest x-ray does show some increase in interstitial markings, cannot rule out congestive heart failure CT interpreted by me (1pt min.). @ -[None done] U/S interpreted by me (1pt. min.). @ -[None done] What testing was considered but not performed or refused? (CT, X-rays, U/S, koki boucher)? Why? @ -Chest x-ray concerning for possible congestive heart failure. BNP has been added. What meds were considered but not given or refused? Why? @ -[None] Did you discuss the management of the patient with other professionals (professionals i.e. , PA, MATH INTERVENTIONIST, lab, RT, psych nurse, oncology social work, admissions advisor, teacher, loan workout officer, mental health case manager)? Give summary @ -Case discussed with Dr. Poon, covering Dr. Mcwilliams, who will admit. Was smoking cessation discussed for >3mins.? @ -[No] Was critical care preformed (if so, how long)? @ -[No] Were there social determinants of health that impacted care today? How? (Homelessness, low income, unemployed, alcoholism, drug addiction, transportation, low edu. Level, literacy, decrease access to med. care, retirement, rehab)? @ -[No] Was there de-escalation of care discussed even if they declined (Discuss DNR or withdrawal of care, Hospice)? DNR status @ -[No] What co-morbidities impacted this encounter? (DM, HTN, Smoking, COPD, CAD, Cancer, CVA, ARF, Chemo, Hep., AIDS, mental health diagnosis, sleep apnea, morbid obesity)? @ -COPD history, contributing to patient's dyspnea Was patient admitted / discharged? Hospital course, mention meds given and route, prescriptions, significant lab abnormalities, going to OR and other pertinent info. @ -Patient reevaluated and resting comfortably in bed. Symptoms have improved however not resolved. Patient and family updated. BNP added. D-dimer still pending. Admission orders written. Undiagnosed new problem with uncertain prognosis? @ -[No] Drug Therapy requiring intensive monitoring for toxicity (Heparin, Nitro, Insuli n, Cardizem)? @ -[No] Were any procedures done? @ -[No] Diagnosis/symptom? @ -Chest pain Acute, or Chronic, or Acute on Chronic? @ -Acute Uncomplicated (without systemic symptoms) or Complicated (systemic symptoms)? @ -[default] Side effects of treatment? @ -[No] Exacerbation, Progression, or Severe Exacerbation? @ -[No] Poses a threat to life or bodily function? How? (Chest pain, [place], [place], pneumonia, PE, COPD, DKA, ARF, appy, cholecystitis, CVA, Diverticulitis, Homicidal, Suicidal, threat to staff... and all critical care pts) @ -Potential threat to life or bodily function with chest discomfort - Lab Data Result diagrams: 04/11/22 12:14 04/11/22 12:14 Lab Results 04/11/22 04/11/22 04/11/22 Range/Units 12:14 12:14 12:14 WBC 8.7 (3.8-10.6) k/uL RBC 4.91 (3.80-5.40) m/uL Hgb 14.2 (11.4-16.0) gm/dL Hct 43.6 (34.0-46.0) % MCV 88.8 (80.0-100.0) fL MCH 28.9 (25.0-35.0) pg MCHC 32.6 (31.0-37.0) g/dL RDW 16.0 H (11.5-15.5) % Plt Count 302 (150-450) k/uL MPV 6.8 Neutrophils % 51 % Lymphocytes % 39 % Monocytes % 5 % Eosinophils % 1 % Basophils % 1 % Neutrophils # 4.4 (1.3-7.7) k/uL Lymphocytes # 3.4 (1.0-4.8) k/uL Monocytes # 0.4 (0-1.0) k/uL Eosinophils # 0.1 (0-0.7) k/uL Basophils # 0.1 (0-0.2) k/uL Sodium 137 (137-145) mmol/L Potassium 4.5 (3.5-5.1) mmol/L Chloride 106 (98-107) mmol/L Carbon Dioxide 26 (22-30) mmol/L Anion Gap 5 mmol/L BUN 16 (7-17) mg/dL Creatinine 1.00 (0.52-1.04) mg/dL Est GFR (CKD-EPI)AfAm 70 (>60 ml/min/1.73 sqM) Est GFR (CKD-EPI)NonAf 61 (>60 ml/min/1.73 sqM) Glucose 89 (74-99) mg/dL Calcium 8.7 (8.4-10.2) mg/dL Magnesium 2.1 (1.6-2.3) mg/dL Total Bilirubin 0.4 (0.2-1.3) mg/dL AST 20 (14-36) U/L ALT 11 (4-34) U/L Alkaline Phosphatase 93 (38-126) U/L Troponin I <0.012 (0.000-0.034) ng/mL Total Protein 6.7 (6.3-8.2) g/dL Albumin 3.8 (3.5-5.0) g/dL Disposition Clinical Impression: Chest pain Disposition: ADMITTED IP TO THIS HOSP Is patient prescribed a controlled substance at d/c from ED?: No Referrals: Jose F Mcwilliams MD [Primary Care Provider] - 1-2 days Time of Disposition: 13:11
[2022-04-11 12:21] LABS: Basophils # (A) 0.1 k/uL (0-0.2); Basophils % (A) 1 %; Eosinophils # (A) 0.1 k/uL (0-0.7); Eosinophils % (A) 1 %; HCT 43.6 % (34.0-46.0); HGB 14.2 gm/dL (11.4-16.0); Lymphocytes # (A) 3.4 k/uL (1.0-4.8); Lymphocytes % (A) 39 %; MCH 28.9 pg (25.0-35.0); MCHC 32.6 g/dL (31.0-37.0); MCV 88.8 fL (80.0-100.0); Mean Platelet Volume 6.8; Monocytes # (A) 0.4 k/uL (0-1.0); Monocytes % (A) 5 %; Neutrophils # (A) 4.4 k/uL (1.3-7.7); Neutrophils % (A) 51 %; Platelet Count 302 k/uL (150-450); RBC 4.91 m/uL (3.80-5.40); WBC 8.7 k/uL (3.8-10.6)
[2022-04-11] MEDS ORDERED: SODIUM CHLORIDE 0.9% 500 ML 500 ML IV STA (12:32)
--- NOTE | 2022-04-11 12:33 | XR ---
EXAMINATION TYPE: XR chest 2V DATE OF EXAM: 04/11/2022 COMPARISON: 02/24/2022 HISTORY: Chest pain TECHNIQUE: Frontal and lateral views of the chest are obtained. FINDINGS: There is been interval development of mild to moderate cardiomegaly, mild pulmonary vascul ar congestion and interstitial edema. The findings most consistent with CHF. There is no pleural eff usion or pneumothorax. Focal opacity in the right lung base posteriorly which could represent focal e ashlyn. The inflammatory process not entirely excluded.Clinical correlation short-term follow-up to res olution is recommended. There is a left subclavian artery stent. The osseous structures are intact. IMPRESSION: Acute cardiopulmonary disease most consistent with CHF. Inflammatory process in the righ t lung base not entirely excluded as described above.
[2022-04-11 12:41] LABS: Albumin 3.8 g/dL (3.5-5.0); Calcium 8.7 mg/dL (8.4-10.2); Magnesium 2.1 mg/dL (1.6-2.3); Potassium 4.5 mmol/L (3.5-5.1); Total Bilirubin 0.4 mg/dL (0.2-1.3); Total Protein 6.7 g/dL (6.3-8.2)
[2022-04-11 12:51] LABS: INR 0.9 (<1.2); Partial Thromboplastin Time 22.2 sec (22.0-30.0); Prothrombin Time 10.1 sec (9.0-12.0)
[2022-04-11] MEDS ORDERED: NITROGLYCERIN SL TABS 0.4 MG TAB SUBLINGUAL PRN (13:14)
--- NOTE | 2022-04-11 13:42 | CT ---
EXAMINATION TYPE: CT angio chest DATE OF EXAM: 04/11/2022 1:32 PM COMPARISON: None HISTORY: Dyspnea and chest pain. CT DLP: 350.1 mGycm Automated exposure control for dose reduction was used. CONTRAST: CTA scan of the thorax is performed with IV Contrast, patient injected with 57ml mL of Isovue 370, pu lmonary embolism protocol. 3-D postprocessing was performed.. FINDINGS: LUNGS: There are small ill-defined filtrates in the lung bases posteriorly, right greater than left w hich could represent pneumonia or possibly atelectasis. The remainder the lung pierson are clear. Ther e is no pleural effusion or pneumothorax. MEDIASTINUM: There is satisfactory enhancement of the pulmonary artery and its branches, there is no CT evidence for pulmonary embolism. There are no greater than 1 cm hilar or mediastinal lymph nodes. No pericardial effusion is seen. OTHER: No additional significant abnormality is seen. IMPRESSION: 1. NO PULMONARY EMBOLISM. 2. SMALL BIBASILAR POSTERIOR INFILTRATES, RIGHT GREATER THAN LEFT. THE POSSIBILITY OF PNEUMONIA IS N OT EXCLUDED.
[2022-04-11] MEDS: IPRATROPIUM-ALBUTEROL 3 ML NEB INHALATION SCH ×2 (15:15→20:07)
[2022-04-11] MEDS: GABAPENTIN 300 MG CAP PO SCH ×2 (16:48→20:08)
[2022-04-11] MEDS: levETIRAcetam 500 MG TAB PO SCH ×2 (16:48→20:08)
[2022-04-11] MEDS ORDERED: ALBUTEROL HFA INHALER INHALATION SCH (20:00)
[2022-04-11] MEDS: DOXEPIN 10 MG CAP PO SCH (20:08)
[2022-04-11] MEDS: METOPROLOL TARTRATE 25 MG TAB PO SCH (20:08)
[2022-04-11] MEDS ORDERED: cloNIDine HCL 0.2 MG TAB PO SCH (21:00)
[2022-04-11] MEDS ORDERED: FUROSEMIDE 10 MG/ML 2 ML VIAL IV ONE (21:20)
--- NOTE | 2022-04-11 21:35 | P.HPIM ---
History of Present Illness H&P Date: 04/11/22 Chief Complaint: Chest Pain Patient is a 59-year-old female with a known history of CAD status post stent placement, hypothyroidism, seizure disorder, bilateral peripheral neuropathy and history of left carotid stenosis, depression and currently everyday smoker and occasional marijuana use presents to ER with complaints of chest discomfort. Patient states that she was at home and watching TV and suddenly developed left retrosternal chest pain which was radiating back between her shoulder blades. Patient was also short of breath but has history of severe COPD with FEV1 of 23% of predicted and uses oxygen at 5 L via nasal cannula at home. Denied any complaints of headache or dizziness or lightheadedness. No nausea vomiting. No radiation of the pain. No leg swelling. Denies any recent illnesses. No worsening cough or sputum production. Laboratory data showed WBC 8.7 hemoglobin 14.1 platelets 302 D-dimer level is 2.4 Troponin x3 negative and proBNP is 352 Chest x-ray showed acute cardiopulmonary disease most consistent with CHF. No pulmonary process in the right lung base not entirely excluded. On admission blood pressure was 92/53 and pulse 74 respirations 16 and pulse ox 92% on 5 L via nasal cannula. Patient states that has blood pressure usually l ow. CTA chest showed no PE. Small bibasilar posterior infiltrates, right greater than left. The possibility of pneumonia is not excluded. EKG showed sinus rhythm. Review of Systems Constitutional: Patient denies any fever or chills . no Generalized weakness. Abdomen: Patient denied any nausea or vomiting or abd. pain Cardiovascular: Patient did complain of chest pain associate with shortness of breath. No leg swelling. No palpitations. Respiratory: Patient does have chronic cough. No sputum production.. Positive for shortness of breath Neurologic: Patient denied any numbness or tingling headache. Musculoskeletal: Patient denies any complaints of joint swelling or deformity. Skin: Negative Psychiatric: Negative Endocrine: No heat or cold intolerance. No recent weight gain. Genitourinary: No dysuria or hematuria. All other 14 point ROS negative except the above Past Medical History Past Medical History: Asthma, Coronary Artery Disease (CAD), Chest Pain / Angina, COPD, Seizure Disorder, Thyroid Disorder Additional Past Medical History / Comment(s): NEUROPATHY TO BILAT HANDS AND LEGS AND RT FOOT. Left carotid blockage History of Any Multi-Drug Resistant Organisms: None Reported Past Surgical History: Heart Catheterization, Heart Catheterization With Stent, Hysterectomy, Orthopedic Surgery Additional Past Surgical History / Comment(s): RT ROTATOR CUFF REPAIR, CYSTS REMOVED FROM UNDER ARMS AND HANDS, 4 stents, 07/18/18 left subclavian stent. Past Anesthesia/Blood Transfusion Reactions: No Reported Reaction Date of Last Stent Placement:: Nov 2017 Past Psychological History: Depression Smoking Status: Current every day smoker Past Alcohol Use History: None Reported Past Drug Use History: Marijuana - Past Family History Mother Family Medical History: Cancer Sister(s) Family Medical History: Cancer Medications and Allergies Home Medications Medication Instructions Recorded Confirmed Type Escitalopram [Lexapro] 20 mg PO BID 11/28/17 04/11/22 History Levothyroxine Sodium 200 mcg PO DAILY 08/20/20 04/11/22 History Nitroglycerin Sl Tabs [Nitrostat] 0.4 mg SL Q5M PRN 08/20/20 04/11/22 History levETIRAcetam [Keppra] 1,000 mg PO TID 12/11/20 04/11/22 History Gabapentin 600 mg PO TID 06/18/21 04/11/22 History cloNIDine HCL 0.2 mg PO BID 08/06/21 04/11/22 History Albuterol Sulfate [Ventolin HFA] 2 puff INHALATION RT-Q6H 02/25/22 04/11/22 History Doxepin [SINEquan] 10 mg PO HS 02/25/22 04/11/22 History Fluticasone/Umeclidin/Vilanter 1 puff INHALATION RT-DAILY 02/25/22 04/11/22 History [Trelegy Ellipta 200-62.5-25] Metoprolol Tartrate [Lopressor] 25 mg PO BID #60 tab 02/26/22 04/11/22 Rx Ibuprofen [Motrin Ib] 200 mg PO HS PRN 04/11/22 04/11/22 History Ipratropium-Albuterol Nebulize 3 mg INHALATION RT-QID 04/11/22 04/11/22 History [Duoneb 0.5 mg-3 mg/3 ml Soln] Allergies Allergy/AdvReac Type Severity Reaction Status Date / Time No Known Allergies Allergy Verified 04/11/22 13:32 Physical Exam Vitals: Vital Signs Temp Pulse Pulse Resp BP Pulse Ox 04/11/22 13:41 76 18 89/54 99 04/11/22 13:33 72 18 84/48 96 04/11/22 12:32 78 18 98 04/11/22 12:08 76 04/11/22 11:56 98.3 F 74 22 92/53 92 L Intake and Output 04/10/22 04/11/22 04/11/22 22:59 06:59 14:59 Other: Weight 83.915 kg PHYSICAL EXAMINATION: Patient is lying in the bed comfortably, no acute distress, awake alert and oriented.. HEENT: Normocephalic. Neck is supple. Pupils reactive. Nostrils clear. Oral cavity is moist. Neck reveals no JVD, carotid bruits, or thyromegaly. CHEST EXAMINATION: Trachea is central. Symmetrical expansion. Bibasilar diminished sounds and mild expiratory wheeze. Nonlabored breathing.. CARDIAC: Normal S1, S2 with no gallops. No murmurs ABDOMEN: Soft. Bowel sounds present. Nontender. No organomegaly. No abdominal bruits. Extremities: reveal no edema. No clubbing or cyanosis Neurologically awake, alert, oriented x3 with well-coordinated movements. No focal deficits noted Skin: No rash or skin lesions. Psychiatric: Coperative. Nonsuicidal, Musculoskeletal: No joint swelling or deformity. Normal range of motion. Results CBC & Chem 7: 04/11/22 12:14 04/11/22 12:14 Labs: Abnormal Lab Results - Last 24 Hours (Table) 04/11/22 04/11/22 Range/Units 12:14 12:14 RDW 16.0 H (11.5-15.5) % D-Dimer 2.40 H (<0.60) mg/L FEU Thrombosis Risk Factor Assmnt - DVT/VTE Prophylaxis DVT/VTE Prophylaxis: Pharmacologic Prophylaxis ordered Assessment and Plan Assessment: Atypical chest pain/discomfort. Ruled out ACS. Shortness of breath secondary to COPD and findings suggestive of CHF as per chest x-ray. Coronary arteries history of stent placement Hypothyroidism History of seizure disorder Bilateral peripheral neuropathy History of left carotid stenosis Currently everyday smoker and occasional marijuana use DVT prophylaxis Heparin subcu Plan: Patient reported on telemetry monitoring. Serial EKG and troponin x3 negative. proBNP is not elevated. Patient will be given Lasix IV x1 and follow-up repeat chest x-ray and procalcitonin level. Cardiology was consulted due to complaints of chest pain. CTA chest is negative for pulmonary embolism. continue follow closely. Time with Patient: Greater than 30
[2022-04-11] MEDS: AZITHROMYCIN 500 MG TAB PO SCH (23:56)
[2022-04-11] MEDS: HEPARIN SODIUM,PORCINE/PF 5,000 UNIT/0.5 ML SYRINGE SQ SCH (23:56)
[2022-04-12] MEDS: LEVOTHYROXINE 100 MCG TAB PO SCH (06:36)
--- NOTE | 2022-04-12 07:06 | XR ---
EXAMINATION TYPE: XR chest 1V DATE OF EXAM: 04/12/2022 CLINICAL HISTORY: Difficulty breathing and CHF progress study. TECHNIQUE: Single AP portable upright view of the chest is obtained. COMPARISON: Chest x-ray and CTA chest from one day earlier. FINDINGS: Underlying emphysematous change with increased interstitial markings bilaterally remain pr esent. Stable mild cardiomegaly with atherosclerotic thoracic aorta. Osseous structures remain demine ralized. Surgical changes right humeral head noted. Left subclavian stent graft redemonstrated. IMPRESSION: Suspect CHF exacerbation as there is mild cardiomegaly with mild/moderate interstitial ed paris redemonstrated on background chronic emphysematous change. No significant change from one day ear lier.
[2022-04-12] MEDS: SYMBICORT 160-4.5 MCG INHALER INHALATION SCH ×2 (08:14→20:29)
[2022-04-12] MEDS: IPRATROPIUM-ALBUTEROL 3 ML NEB INHALATION SCH ×4 (08:14→20:29)
--- NOTE | 2022-04-12 08:18 | P.CRDCN ---
History of Present Illness Consult date: 04/12/22 History of present illness: History of Present Illness: The patient is a 61-year-old female with known history of severe chronic obstructive lung disease, on home oxygen, followed by Dr. Marques, history of CAD status post stenting in 2017 with patent stent in 2020, history of PAD status post stenting of the left subclavian and left carotid endarterectomy who presented with an episode of chest discomfort, worse with deep breathing associated with cough and dyspnea. Her chest x-ray raised the question of CHF but her NT proBNP was normal. She has no further chest discomfort at this time. She is not active physically because of leg discomfort. She continues to be dyspneic and has a cough. She denies any dizziness or palpitation, no peripheral edema no PND nor orthopnea. She continues to smoke. Her troponin were negative on presentation and there was no acute ST segment changes. She was last seen by Dr. Vale in the office in April 2020. She underwent a CT angiogram of the chest that showed no pulmonary embolism with possible pneumonia. Medications: DuoNeb, Keppra, Lopressor 25 mg twice a day, levothyroxine, clonidine 0.2 mg twice a day, Ventolin, doxepin Review of Systems: Respiratory: She has chronic dyspnea on exertion with chronic wheezing and cough, on home oxygen with a history of COPD GI: No nausea or vomiting . No history of peptic ulcer disease. No recent GI bleed. : No hematuria or dysuria. Nervous System: No stroke , she has a prior history of seizure. Physical Examination: 61-year-old female alert, mildly dyspneic, appears older than stated age ,Blood pressure 126/56, Heart rate 70 Head: Normocephalic. Eyes: Sclerae nonicteric. Neck: Good carotid upstroke, left-sided bruit, no jugular venous distention. Lungs: Decreased air exchange bilaterally Heart: Regular rate and rhythm, S1-S2, no S3, no rub. Systolic ejection murmur. Abdomen: Soft nontender, positive bowel sounds no organomegaly. Extremities: No edema, intact distal pulses. Labs: Hemoglobin 14.2, d-dimer 2.4, potassium 4.5, BUN 16, creatinine 1.0. Troponin less than 0.012. NT proBNP 352 EKG: Sinus mechanism with no acute ST segment changes Impression: 1. Chest discomfort, noncardiac, related to her lung status 2. History of CAD, no evidence of acute coronary syndrome 3. Severe COPD on home O2 and chronic tobacco use 4. History of hypertension 5. History of peripheral vascular disease with stenting of the left subclavian and left carotid endarterectomy Plan: 1. No evidence of CHF, no indications for diuresis at this point, possible t reatment of pneumonia her primary care physician 2. Decrease clonidine and add Zestril 3. Start statin in view of the history 4. Obtain an echocardiogram with Doppler 5. Depending on her progress further recommendations will be made Past Medical History Past Medical History: Asthma, Coronary Artery Disease (CAD), Chest Pain / Angina, COPD, Seizure Disorder, Thyroid Disorder Additional Past Medical History / Comment(s): NEUROPATHY TO BILAT HANDS AND LEGS AND RT FOOT. Left carotid blockage History of Any Multi-Drug Resistant Organisms: None Reported Past Surgical History: Heart Catheterization, Heart Catheterization With Stent, Hysterectomy, Orthopedic Surgery Additional Past Surgical History / Comment(s): RT ROTATOR CUFF REPAIR, CYSTS REMOVED FROM UNDER ARMS AND HANDS, 4 stents, 07/18/18 left subclavian stent. Past Anesthesia/Blood Transfusion Reactions: No Reported Reaction Date of Last Stent Placement:: Nov 2017 Past Psychological History: Depression Smoking Status: Current every day smoker Past Alcohol Use History: None Reported Past Drug Use History: Marijuana - Past Family History Mother Family Medical History: Cancer Sister(s) Family Medical History: Cancer Medications and Allergies Home Medications Medication Instructions Recorded Confirmed Type Escitalopram [Lexapro] 20 mg PO BID 11/28/17 04/11/22 History Levothyroxine Sodium 200 mcg PO DAILY 08/20/20 04/11/22 History Nitroglycerin Sl Tabs [Nitrostat] 0.4 mg SL Q5M PRN 08/20/20 04/11/22 History levETIRAcetam [Keppra] 1,000 mg PO TID 12/11/20 04/11/22 History Gabapentin 600 mg PO TID 06/18/21 04/11/22 History cloNIDine HCL 0.2 mg PO BID 08/06/21 04/11/22 History Albuterol Sulfate [Ventolin HFA] 2 puff INHALATION RT-Q6H 02/25/22 04/11/22 History Doxepin [SINEquan] 10 mg PO HS 02/25/22 04/11/22 History Fluticasone/Umeclidin/Vilanter 1 puff INHALATION RT-DAILY 02/25/22 04/11/22 History [Trelegy Ellipta 200-62.5-25] Metoprolol Tartrate [Lopressor] 25 mg PO BID #60 tab 02/26/22 04/11/22 Rx Ibuprofen [Motrin Ib] 200 mg PO HS PRN 04/11/22 04/11/22 History Ipratropium-Albuterol Nebulize 3 mg INHALATION RT-QID 04/11/22 04/11/22 History [Duoneb 0.5 mg-3 mg/3 ml Soln] Allergies Allergy/AdvReac Type Severity Reaction Status Date / Time No Known Allergies Allergy Verified 04/11/22 13:32 Physical Exam Vitals: Vital Signs Temp Pulse Pulse Pulse Resp BP BP 04/12/22 04:00 98.1 F 71 18 126/56 04/12/22 01:24 77 16 04/12/22 00:00 97.7 F 77 20 122/63 04/11/22 20:17 90 04/11/22 20:09 04/11/22 20:07 93 04/11/22 20:00 98.3 F 98 18 96/44 04/11/22 16:00 75 114/66 04/11/22 14:10 75 75 18 114/66 04/11/22 13:41 76 18 89/54 04/11/22 13:33 72 18 84/48 04/11/22 12:32 78 18 04/11/22 12:08 76 04/11/22 11:56 98.3 F 74 22 92/53 Pulse Ox 04/12/22 04:00 97 04/12/22 01:24 04/12/22 00:00 97 04/11/22 20:17 04/11/22 20:09 94 L 04/11/22 20:07 04/11/22 20:00 93 L 04/11/22 16:00 96 04/11/22 14:10 96 04/11/22 13:41 99 04/11/22 13:33 96 04/11/22 12:32 98 04/11/22 12:08 04/11/22 11:56 92 L Intake and Output 0104/12/22 04/12/22 22:59 06:59 14:59 Intake Total 860 Output Total 1400 Balance 860 -1400 Intake: Oral 860 Output: Urine 1400 Other: Voiding Method Diaper Bedside Commode External Catheter Diaper # Voids 1 Results 04/11/22 12:14 04/11/22 12:14 Cardiac Enzymes 04/11/22 04/11/22 04/11/22 Range/Units 12:14 12:14 15:05 AST 20 (14-36) U/L Troponin I <0.012 <0.012 (0.000-0.034) ng/mL 04/11/22 Range/Units 18:17 AST (14-36) U/L Troponin I <0.012 (0.000-0.034) ng/mL Coagulation 04/11/22 Range/Units 12:14 PT 10.1 (9.0-12.0) sec APTT 22.2 (22.0-30.0) sec CBC 04/11/22 Range/Units 12:14 WBC 8.7 (3.8-10.6) k/uL RBC 4.91 (3.80-5.40) m/uL Hgb 14.2 (11.4-16.0) gm/dL Hct 43.6 (34.0-46.0) % Plt Count 302 (150-450) k/uL Comprehensive Metabolic Panel 04/11/22 Range/Units 12:14 Sodium 137 (137-145) mmol/L Potassium 4.5 (3.5-5.1) mmol/L Chloride 106 (98-107) mmol/L Carbon Dioxide 26 (22-30) mmol/L BUN 16 (7-17) mg/dL Creatinine 1.00 (0.52-1.04) mg/dL Glucose 89 (74-99) mg/dL Calcium 8.7 (8.4-10.2) mg/dL AST 20 (14-36) U/L ALT 11 (4-34) U/L Alkaline Phosphatase 93 (38-126) U/L Total Protein 6.7 (6.3-8.2) g/dL Albumin 3.8 (3.5-5.0) g/dL Current Medications Generic Name Dose Route Start Last Admin Trade Name Freq PRN Reason Stop Dose Admin Albuterol/Ipratropium 3 ml 04/11/22 16:00 04/11/22 20:07 Ipratropium-Albuterol 3 Ml Neb INHALATION 3 ml RT-QID VINICIO Administration Aspirin 81 mg 04/12/22 09:00 Aspirin 81 Mg PO DAILY VINICIO Azithromycin 500 mg 04/11/22 21:30 04/11/22 23:56 Azithromycin 500 Mg Tab PO 04/13/22 09:01 500 mg DAILY VINICIO Administration Protocol Budesonide/Formoterol Fumarate 2 puff 04/12/22 08:00 Symbicort 160-4.5 Mcg Inhaler INHALATION RT-BID VINICIO Doxepin HCl 10 mg 04/11/22 21:00 04/11/22 20:08 Doxepin 10 Mg Cap PO 10 mg HS VINICIO Administration Gabapentin 600 mg 04/11/22 16:00 04/11/22 20:08 Gabapentin 300 Mg Cap PO 600 mg TID VINICIO Administration Heparin Sodium (Porcine) 5,000 unit 04/12/22 00:00 04/11/22 23:56 Heparin Sodium,Porcine/Pf 5,000 Unit/0.5 Ml Syringe SQ 5,000 unit Q8HR VINICIO Administration Levetiracetam 1,000 mg 04/11/22 16:00 04/11/22 20:08 Levetiracetam 500 Mg Tab PO 1,000 mg TID VINICIO Administration Levothyroxine Sodium 200 mcg 04/12/22 06:30 04/12/22 06:36 Levothyroxine 100 Mcg Tab PO 200 mcg 0630 VINICIO Administration Metoprolol Tartrate 25 mg 04/11/22 21:00 04/11/22 20:08 Metoprolol Tartrate 25 Mg Tab PO 25 mg BID VINICIO Administration Nitroglycerin 0.4 mg 04/11/22 13:14 Nitroglycerin Sl Tabs 0.4 Mg Tab SUBLINGUAL Q5M PRN Chest Pain Intake and Output 04/11/22 04/12/22 04/12/22 22:59 06:59 14:59 Intake Total 860 Output Total 1400 Balance 860 -1400 Intake: Oral 860 Output: Urine 1400 Other: Voiding Method Diaper Bedside Commode External Catheter Diaper # Voids 1 04/11/22 12:14 04/11/22 12:14
[2022-04-12] MEDS: HEPARIN SODIUM,PORCINE/PF 5,000 UNIT/0.5 ML SYRINGE SQ SCH ×3 (08:23→23:21)
[2022-04-12] MEDS: lisinopriL 5 MG TAB PO SCH (08:23)
[2022-04-12] MEDS: ATORVASTATIN 40 MG TAB PO SCH (08:24)
[2022-04-12] MEDS: levETIRAcetam 500 MG TAB PO SCH ×3 (08:24→20:27)
[2022-04-12] MEDS: GABAPENTIN 300 MG CAP PO SCH ×3 (08:24→20:27)
[2022-04-12] MEDS: ASPIRIN 81 MG PO SCH (08:24)
[2022-04-12] MEDS: METOPROLOL TARTRATE 25 MG TAB PO SCH ×2 (08:24→20:27)
[2022-04-12] MEDS: cloNIDine HCL 0.1 MG TAB PO SCH ×2 (08:24→20:27)
[2022-04-12] MEDS: AZITHROMYCIN 500 MG TAB PO SCH (08:24)
--- NOTE | 2022-04-12 08:26 | P.PN ---
Subjective Progress Note Date: 04/12/22 Principal diagnosis: Chest pain This is a 61-year-old female who was admitted yesterday for chest pain. She does have a history of COPD and CAD with previous stenting. She is a current smoker. Patient reports chest pain has resolved and she is feeling better this morning. She does have an occasional nonproductive cough. Cardiology has been consulted and they have ordered a echo. Chest x-rays question CHF, cardiology does not see any evidence of CHF. Objective - Vital Signs Vital signs: Vital Signs Temp 98.1 F 04/12/22 04:00 Pulse 88 04/12/22 08:15 Resp 18 04/12/22 04:00 BP 126/56 04/12/22 04:00 Pulse Ox 94 L 04/12/22 08:14 FiO2 Intake & Output 04/11/22 04/12/22 04/12/22 18:59 06:59 18:59 Intake Total 624 236 Output Total 1400 Balance 624 -1164 Weight 83.915 kg Intake: Oral 624 236 Output: Urine 1400 Other: Voiding Method Bedside Commode Diaper # Voids 1 - Constitutional General appearance: Present: cooperative. Absent: no acute distress - EENT Eyes: Present: EOMI, PERRLA - Neck Neck: Present: normal ROM. Absent: lymphadenopathy, rigidity - Respiratory Details: Crackles bilateral bases - Cardiovascular Rhythm: regular Heart sounds: normal: S1, S2 - Gastrointestinal General gastrointestinal: Present: normal bowel sounds, soft - Integumentary Integumentary: Present: normal, normal turgor - Psychiatric Psychiatric: Present: A&O x's 3, appropriate affect, intact judgment & insight - Labs CBC & Chem 7: 04/11/22 12:14 04/11/22 12:14 Labs: Abnormal Lab Results - Last 24 Hours (Table) 04/11/22 04/11/22 Range/Units 12:14 12:14 RDW 16.0 H (11.5-15.5) % D-Dimer 2.40 H (<0.60) mg/L FEU Assessment and Plan (1) COPD (chronic obstructive pulmonary disease) Current Visit: Yes Status: Acute Code(s): J44.9 - CHRONIC OBSTRUCTIVE PULMONARY DISEASE, UNSPECIFIED SNOMED Code(s): 34096856 (2) CAD (coronary artery disease) Current Visit: No Status: Acute Code(s): I25.10 - ATHSCL HEART DISEASE OF [place] CORONARY ARTERY W/O ANG PCTRS SNOMED Code(s): 25696132 (3) Tobacco abuse Current Visit: No Status: Acute Code(s): Z72.0 - TOBACCO USE SNOMED Code(s): 257955603 (4) Chest pain Current Visit: Yes Status: Acute Code(s): R07.9 - CHEST PAIN, UNSPECIFIED SNOMED Code(s): 92243337 Plan: Check electrolytes in the morning. Await results of echo ordered by cardiology. Patient seen and evaluated by nurse practitioner, physician in agreement with plan
[2022-04-12 08:29] LABS: Basophils % (A) 0 %; Eosinophils % (A) 0 %; HCT 44.3 % (34.0-46.0); HGB 14.6 gm/dL (11.4-16.0); Lymphocytes # (A) 2.4 k/uL (1.0-4.8); Lymphocytes % (A) 15 %; MCHC 32.8 g/dL (31.0-37.0); MCV 88.3 fL (80.0-100.0); Monocytes # (A) 0.8 k/uL (0-1.0); Monocytes % (A) 5 %; Neutrophils # (A) 12.3 k/uL (1.3-7.7); Neutrophils % (A) 78 %; Platelet Count 305 k/uL (150-450); RBC 5.02 m/uL (3.80-5.40); RDW 15.9 % (11.5-15.5); WBC 15.8 k/uL (3.8-10.6)
[2022-04-12] MEDS ORDERED: ASPIRIN 325 MG TAB PO SCH (09:00)
[2022-04-12 09:14] LABS: African American GFR (CKD) 80 (>60 ml/min/1.73 sqM); Anion Gap 7 mmol/L; Blood Urea Nitrogen 17 mg/dL (7-17); Calcium 9.1 mg/dL (8.4-10.2); Carbon Dioxide 28 mmol/L (22-30); Chloride 102 mmol/L (98-107); Glucose 93 mg/dL (74-99); Non-African American GFR(CKD) 70 (>60 ml/min/1.73 sqM); Potassium 4.5 mmol/L (3.5-5.1); Sodium 137 mmol/L (137-145)
[2022-04-12 19:29] LABS: Chol/HDL Ratio 5.43 Ratio; LDL Cholesterol,Calculated 184.1 mg/dL (0.0-131.0); VLDL Calculation 18.24 mg/dL (5.00-40.00)
[2022-04-12] MEDS: DOXEPIN 10 MG CAP PO SCH (20:27)
[2022-04-13] MEDS: LEVOTHYROXINE 100 MCG TAB PO SCH (05:55)
[2022-04-13 08:03] LABS: Albumin 4.2 g/dL (3.5-5.0); Calcium 8.5 mg/dL (8.4-10.2); Potassium 4.7 mmol/L (3.5-5.1); Total Bilirubin 0.3 mg/dL (0.2-1.3); Total Protein 7.2 g/dL (6.3-8.2)
[2022-04-13] MEDS: levETIRAcetam 500 MG TAB PO SCH (08:18)
[2022-04-13] MEDS: METOPROLOL TARTRATE 25 MG TAB PO SCH (08:18)
[2022-04-13] MEDS: ASPIRIN 81 MG PO SCH (08:18)
[2022-04-13] MEDS: GABAPENTIN 300 MG CAP PO SCH (08:18)
[2022-04-13] MEDS: AZITHROMYCIN 500 MG TAB PO SCH (08:18)
[2022-04-13] MEDS: cloNIDine HCL 0.1 MG TAB PO SCH (08:18)
[2022-04-13] MEDS: lisinopriL 5 MG TAB PO SCH (08:18)
[2022-04-13] MEDS: HEPARIN SODIUM,PORCINE/PF 5,000 UNIT/0.5 ML SYRINGE SQ SCH (08:18)
[2022-04-13] MEDS: ATORVASTATIN 40 MG TAB PO SCH (08:18)
[2022-04-13 08:23] VITALS: RESP 16; TEMP 97.9
[2022-04-13] MEDS: SYMBICORT 160-4.5 MCG INHALER INHALATION SCH (08:33)
[2022-04-13] MEDS: IPRATROPIUM-ALBUTEROL 3 ML NEB INHALATION SCH ×2 (08:33→12:17)
--- NOTE | 2022-04-13 08:37 | P.PN ---
Subjective Progress Note Date: 04/13/22 Principal diagnosis: Chest pain This is a 61-year-old female who was admitted for chest pain. She does have a history of COPD and CAD with previous stenting. She is a current smoker. Patient reports chest pain has resolved and she is feeling well this morning sitting on the side of the bed. She is anxious to go home. Echo was ordered but has not been completed, will hopefully be done this morning. Objective - Vital Signs Vital signs: Vital Signs Temp 97.9 F 04/13/22 08:00 Pulse 68 04/13/22 08:00 Resp 16 04/13/22 08:00 BP 95/59 04/13/22 08:00 Pulse Ox 94 L 04/13/22 08:00 FiO2 Intake & Output 04/12/22 04/13/22 04/13/22 18:59 06:59 18:59 Intake Total 118 Balance 118 Intake: Oral 118 Other: Voiding Method Bedside Commode Bedside Commode Diaper Diaper # Voids 2 1 # Bowel Movements 2 1 - Constitutional General appearance: Present: cooperative. Absent: no acute distress - EENT Eyes: Present: EOMI, PERRLA - Neck Neck: Present: normal ROM. Absent: lymphadenopathy, rigidity - Respiratory Respiratory: right: wheezing, left: diminished - Cardiovascular Rhythm: regular Heart sounds: normal: S1, S2 - Gastrointestinal General gastrointestinal: Present: normal bowel sounds, soft - Integumentary Integumentary: Present: normal, normal turgor - Psychiatric Psychiatric: Present: A&O x's 3, appropriate affect, intact judgment & insight - Labs CBC & Chem 7: 04/12/22 07:49 04/13/22 07:12 Labs: Abnormal Lab Results - Last 24 Hours (Table) 04/12/22 04/13/22 Range/Units 07:49 07:12 Sodium 132 L (137-145) mmol/L Chloride 97 L (98-107) mmol/L BUN 20 H (7-17) mg/dL Cholesterol 248.00 H (0.00-200.00) mg/dL LDL Cholesterol, Calc 184.1 H (0.0-131.0) mg/dL Assessment and Plan (1) COPD (chronic obstructive pulmonary disease) Current Visit: Yes Status: Acute Code(s): J44.9 - CHRONIC OBSTRUCTIVE PULMONARY DISEASE, UNSPECIFIED SNOMED Code(s): 20281177 (2) CAD (coronary artery disease) Current Visit: No Status: Acute Code(s): I25.10 - ATHSCL HEART DISEASE OF [place] CORONARY ARTERY W/O ANG PCTRS SNOMED Code(s): 23681322 (3) Tobacco abuse Current Visit: No Status: Acute Code(s): Z72.0 - TOBACCO USE SNOMED Code(s): 877329185 (4) Chest pain Current Visit: Yes Status: Acute Code(s): R07.9 - CHEST PAIN, UNSPECIFIED SNOMED Code(s): 03290275 Plan: Will await results of echo. If echo normal and patient is cleared by cardiology, possible discharge later this evening. Patient seen and evaluated by nurse practitioner, physician in agreement with plan
--- NOTE | 2022-04-13 11:15 | P.PN ---
Subjective Progress Note Date: 04/13/22 HISTORY OF PRESENT ILLNESS: History of Present Illness: The patient is a 61-year-old female with known history of severe chronic obstructive lung disease, on home oxygen, followed by Dr. Marques, history of CAD status post stenting in 2017 with patent stent in 2020, history of PAD status post stenting of the left subclavian and left carotid endarterectomy who presented with an episode of chest discomfort, worse with deep breathing associated with cough and dyspnea. Her chest x-ray raised the question of CHF but her NT proBNP was normal. She has no further chest discomfort at this time. She is not active physically because of leg discomfort. She continues to be dyspneic and has a cough. She denies any dizziness or palpitation, no peripheral edema no PND nor orthopnea. She continues to smoke. Her troponin were negative on presentation and there was no acute ST segment changes. She was last seen by Dr. Vale in the office in April 2020. She underwent a CT an giogram of the chest that showed no pulmonary embolism with possible pneumonia. Medications: DuoNeb, Keppra, Lopressor 25 mg twice a day, levothyroxine, clonidine 0.2 mg twice a day, Ventolin, doxepin 04/13/2022 Patient examined this morning at the bedside. Patient denies chest pain or pr essure. She reports significant improvement in her shortness of breath. Vital signs are stable. 2-D echo is currently pending. PHYSICAL EXAM: VITAL SIGNS: Reviewed. GENERAL: Well-developed in no acute distress. NECK: Supple. No JVD or thyromegaly LUNGS: Respirations even and unlabored. Lungs essentially clear to auscultation bilaterally, decreased with scattered rhonchi. HEART: Regular rate and rhythm. S1 and S2 heard. EXTREMITIES: Normal range of motion. No clubbing or cyanosis. Peripheral pulses intact. No lower extremity edema ASSESSMENT: 1. Chest discomfort, noncardiac, related to her lung status 2. History of CAD, no evidence of acute coronary syndrome 3. Severe COPD on home O2 and chronic tobacco use 4. History of hypertension 5. History of peripheral vascular disease with stenting of the left subclavian and left carotid endarterectomy PLAN: 2-D echo is currently pending. Await results Continue current cardiac medications Patient is stable for discharge home today from a cardiac standpoint with o utpatient follow-up Nurse practitioner note has been reviewed by physician. Signing provider agrees with the documented findings, assessment, and plan of care. Objective - Vital Signs Vital signs: Vital Signs Temp 97.9 F 04/13/22 08:00 Pulse 76 04/13/22 08:42 Resp 16 04/13/22 08:00 BP 95/59 04/13/22 08:00 Pulse Ox 91 L 04/13/22 08:36 FiO2 Intake & Output 04/12/22 04/13/22 04/13/22 18:59 06:59 18:59 Intake Total 118 Balance 118 Intake: Oral 118 Other: Voiding Method Bedside Commode Bedside Commode Bedside Commode Diaper Diaper # Voids 2 1 # Bowel Movements 2 1 - Labs CBC & Chem 7: 04/12/22 07:49 04/13/22 07:12 Labs: Abnormal Lab Results - Last 24 Hours (Table) 04/12/22 04/13/22 Range/Units 07:49 07:12 Sodium 132 L (137-145) mmol/L Chloride 97 L (98-107) mmol/L BUN 20 H (7-17) mg/dL Cholesterol 248.00 H (0.00-200.00) mg/dL LDL Cholesterol, Calc 184.1 H (0.0-131.0) mg/dL
[2022-04-13 12:34] VITALS: BP 118/70; PULSE 78
--- NOTE | 2022-04-13 12:50 | P.DS ---
Providers Date of admission: 04/11/22 13:14 Attending physician: Jose F Mcwilliams Consults: 04/11/22 13:14 Consult Physician Urgent Consulting Provider: Karthik Vale Consult Reason/Comments: cp Do you want consulting provider notified?: Yes Primary care physician: Jose F Mcwilliams Hospital Course: This is discharge summary 61-year-old white female with known history of CHF and COPD who came in with significant chest pain. There was no enzymatic elevation. Cardiology saw the patient and has cleared pending echocardiogram which will be done as an outpatient. The patient is now breathing much better and prefers DuoNeb over straight albuterol. The patient has an underlying history of COPD and is now stable slight wheezing is noted. No voiding difficulties. She is tolerated all appropriate treatments and will follow up with me in about 2-3 days. Patient Condition at Discharge: Stable Plan - Discharge Summary Discharge Rx Participant: Yes New Discharge Prescriptions: New Ipratropium-Albuterol Nebulize [Duoneb 0.5 mg-3 mg/3 ml Soln] 3 ml INHALATION RT-QID #300 each Continue Escitalopram [Lexapro] 20 mg PO BID Nitroglycerin Sl Tabs [Nitrostat] 0.4 mg SL Q5M PRN PRN Reason: Chest Pain levETIRAcetam [Keppra] 1,000 mg PO TID Doxepin [SINEquan] 10 mg PO HS Fluticasone/Umeclidin/Vilanter [Trelegy Ellipta 200-62.5-25] 1 puff INHALATION RT-DAILY Metoprolol Tartrate [Lopressor] 25 mg PO BID #60 tab Levothyroxine Sodium 200 mcg PO DAILY Gabapentin 600 mg PO TID cloNIDine HCL 0.2 mg PO BID Ipratropium-Albuterol Nebulize [Duoneb 0.5 mg-3 mg/3 ml Soln] 3 mg INHALATION RT-QID Ibuprofen [Motrin Ib] 200 mg PO HS PRN PRN Reason: Pain Discontinued Albuterol Sulfate [Ventolin HFA] 2 puff INHALATION RT-Q6H Discharge Medication List Escitalopram [Lexapro] 20 mg PO BID 11/28/17 [History] Levothyroxine Sodium 200 mcg PO DAILY 08/20/20 [History] Nitroglycerin Sl Tabs [Nitrostat] 0.4 mg SL Q5M PRN 08/20/20 [History] levETIRAcetam [Keppra] 1,000 mg PO TID 12/11/20 [History] Gabapentin 600 mg PO TID 06/18/21 [History] cloNIDine HCL 0.2 mg PO BID 08/06/21 [History] Doxepin [SINEquan] 10 mg PO HS 02/25/22 [History] Fluticasone/Umeclidin/Vilanter [Trelegy Ellipta 200-62.5-25] 1 puff INHALATION RT-DAILY 02/25/22 [History] Metoprolol Tartrate [Lopressor] 25 mg PO BID #60 tab 02/26/22 [Rx] Ibuprofen [Motrin Ib] 200 mg PO HS PRN 04/11/22 [History] Ipratropium-Albuterol Nebulize [Duoneb 0.5 mg-3 mg/3 ml Soln] 3 mg INHALATION RT-QID 04/11/22 [History] Ipratropium-Albuterol Nebulize [Duoneb 0.5 mg-3 mg/3 ml Soln] 3 ml INHALATION RT-QID #300 each 04/13/22 [Rx] Follow up Appointment(s)/Referral(s): Jose F Mcwilliams MD [Primary Care Provider] - 1-2 days
--- NOTE | 2022-04-14 11:03 | CA ---
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 MR Peak Velocity 237.1 cm/s MR Peak Gradient 22.5 mmHg Mitral E Point Velocity 93.1 cm/s Mitral A Point Velocity 77.2 cm/s Mitral E to A Ratio 1.2 MV Deceleration Time 130.9 ms FINDINGS Left Ventricle Left ventricular ejection fraction is estimated at 55-60%. Right Ventricle Right ventricle systolic dysfunction.mildly increased right ventricular wall thickness. Right Atrium Normal right atrial size. Left Atrium Mild left atrial dilatation. Mitral Valve Mild mitral regurgitation. Aortic Valve Trileaflet aortic valve. No aortic stenosis. No aortic regurgitation. Tricuspid Valve Structurally normal tricuspid valve. Mild tricuspid regurgitation. Pulmonic Valve Pulmonic valve not well visualized. Pericardium No pericardial or pleural effusion. Aorta Normal size aortic root and proximal ascending aorta. CONCLUSIONS LV systolic function is normal with an ejection fraction of 65% Mild mitral regurgitation Previewed by: Dr. Hayden Watters MD (Electronically Signed) Final Date: 14 April 2022 11:02
== END 2022-04-13 15:17 | disposition home or self-care (01) ==
LOC: EC 11:54 → 3SCARD 13:14
PROVIDERS: ADMIT Family Medicine; ATTEND Family Medicine
DX: R07.89 Other chest pain (principal); J44.9 Chronic obstructive pulmonary disease, unspecified; I11.9 Hypertensive heart disease without heart failure; G40.909 Epilepsy, unspecified, not intractable, without status epilepticus; G62.9 Polyneuropathy, unspecified; E03.9 Hypothyroidism, unspecified; Z99.81 Dependence on supplemental oxygen; I73.9 Peripheral vascular disease, unspecified; I25.10 Atherosclerotic heart disease of native coronary artery without angina pectoris; F32.A Depression, unspecified; F17.200 Nicotine dependence, unspecified, uncomplicated; R91.8 Other nonspecific abnormal finding of lung field; Z79.02 Long term (current) use of antithrombotics/antiplatelets; Z79.890 Hormone replacement therapy; Z79.891 Long term (current) use of opiate analgesic; Z79.82 Long term (current) use of aspirin; Z79.51 Long term (current) use of inhaled steroids; Z79.899 Other long term (current) drug therapy; Z90.710 Acquired absence of both cervix and uterus; Z95.5 Presence of coronary angioplasty implant and graft; Z95.828 Presence of other vascular implants and grafts; Z98.890 Other specified postprocedural states; Z80.9 Family history of malignant neoplasm, unspecified
CPT/HCPCS: 96372; 96374; 99285; 36415; 94640 ×5; 94760 ×3; 93005; 93306; 85379; 83880; 80061; 80053 ×2; 80048; 83735; 84484; 85025 ×2; 85610; 85730; 84145; 71045; 71046; 71275; G0378 ×3; J1940; Q9967; J1644

== ENCOUNTER 2022-06-02 16:03 | Observation (INO) | payer MEDICARE ==
[2022-06-02 17:02] LABS: Glucose,Whole Blood 97 mg/dL (70-110)
--- NOTE | 2022-06-02 17:11 | ED ---
General Adult HPI - General Chief complaint: Seizure Stated complaint: Seizure Time Seen by Provider: 06/02/22 16:59 Source: patient, EMS, RN notes reviewed Mode of arrival: EMS Limitations: no limitations - History of Present Illness Initial comments: Patient is a pleasant 61-year-old female presenting to the emergency department following seizure. Patient does have history of seizures however has been doing well recently. Last seizure was probably close to a year ago. Patient did have witnessed seizure activity today lasting close to 20 minutes. Patient was postictal following this. Patient only feels fatigued at this time. Patient felt confused earlier however that has resolved. No head injury or other injury. - Related Data Home Medications Medication Instructions Recorded Confirmed Escitalopram [Lexapro] 20 mg PO BID 11/28/17 04/11/22 Levothyroxine Sodium 200 mcg PO DAILY 08/20/20 04/11/22 Nitroglycerin Sl Tabs [Nitrostat] 0.4 mg SL Q5M PRN 08/20/20 04/11/22 levETIRAcetam [Keppra] 1,000 mg PO TID 12/11/20 04/11/22 Gabapentin 600 mg PO TID 06/18/21 04/11/22 cloNIDine HCL 0.2 mg PO BID 08/06/21 04/11/22 Doxepin [SINEquan] 10 mg PO HS 02/25/22 04/11/22 Fluticasone/Umeclidin/Vilanter 1 puff INHALATION RT-DAILY 02/25/22 04/11/22 [Trelegy Ellipta 200-62.5-25] Ibuprofen [Motrin Ib] 200 mg PO HS PRN 04/11/22 04/11/22 Ipratropium-Albuterol Nebulize 3 mg INHALATION RT-QID 04/11/22 04/11/22 [Duoneb 0.5 mg-3 mg/3 ml Soln] Previous Rx's Medication Instructions Recorded Metoprolol Tartrate [Lopressor] 25 mg PO BID #60 tab 02/26/22 Ipratropium-Albuterol Nebulize 3 ml INHALATION RT-QID #300 each 04/13/22 [Duoneb 0.5 mg-3 mg/3 ml Soln] Allergies Allergy/AdvReac Type Severity Reaction Status Date / Time No Known Allergies Allergy Verified 06/02/22 16:19 Review of Systems ROS Statement: Those systems with pertinent positive or pertinent negative responses have been documented in the HPI. ROS Other: All systems not noted in ROS Statement are negative. Constitutional: Denies: fever Eyes: Denies: eye pain ENT: Denies: ear pain Respiratory: Denies: cough Cardiovascular: Denies: chest pain Endocrine: Reports: fatigue Gastrointestinal: Denies: abdominal pain Genitourinary: Denies: urgency Musculoskeletal: Denies: back pain Skin: Denies: rash Neurological: Reports: as per HPI. Denies: headache Past Medical History Past Medical History: Asthma, Coronary Artery Disease (CAD), Chest Pain / Angina, COPD, Seizure Disorder, Thyroid Disorder Additional Past Medical History / Comment(s): NEUROPATHY TO BILAT HANDS AND LEGS AND RT FOOT. Left carotid blockage History of Any Multi-Drug Resistant Organisms: None Reported Past Surgical History: Heart Catheterization, Heart Catheterization With Stent, Hysterectomy, Orthopedic Surgery Additional Past Surgical History / Comment(s): RT ROTATOR CUFF REPAIR, CYSTS REMOVED FROM UNDER ARMS AND HANDS, 4 stents, 07/18/18 left subclavian stent. Past Anesthesia/Blood Transfusion Reactions: No Reported Reaction Date of Last Stent Placement:: Nov 2017 Smoking Status: Current every day smoker Past Alcohol Use History: None Reported Past Drug Use History: Marijuana - Past Family History Mother Family Medical History: Cancer Sister(s) Family Medical History: Cancer General Exam Limitations: no limitations General appearance: alert, in no apparent distress Head exam: Present: atraumatic, normocephalic Eye exam: Present: normal appearance, PERRL, EOMI ENT exam: Present: normal oropharynx Neck exam: Present: normal inspection. Absent: tenderness, meningismus Respiratory exam: Present: normal lung sounds bilaterally Cardiovascular Exam: Present: regular rate, normal rhythm GI/Abdominal exam: Present: soft. Absent: tenderness Extremities exam: Present: normal inspection, full ROM. Absent: tenderness Neurological exam: Present: alert, oriented X3, CN II-XII intact. Absent: motor sensory deficit Expanded Neurological exam: Present: protecting the airway Patient oriented to: Present: person, place, time Cranial nerves: EOM's Intact: Normal Motor strength exam: RUE: 5, LUE: 5, RLE: 5, LLE: 5 Eye Response: (4) open spontaneously Motor Response: (6) obeys commands Verbal Response: (5) oriented Psychiatric exam: Present: normal affect, normal mood Skin exam: Present: normal color Course Vital Signs 06/02/22 06/02/22 06/02/22 16:11 16:35 18:06 Temperature 97.7 F 97.6 F Pulse Rate 61 59 L 60 Respiratory 16 16 17 Rate Blood Pressure 92/40 83/50 113/64 O2 Sat by Pulse 94 L 95 98 Oximetry EKG Findings - EKG Results: EKG: interpreted by ERMD ((Henderson.), sinus rhythm, normal QRS, normal ST/T EKG shows: bradycardia Medical Decision Making - Medical Decision Making Was pt. sent in by a medical professional or institution (, BLAIR, ANIMAL CHIROPRACTOR, urgent care, hospital, or group home...) When possible be specific @ -No Did you speak to anyone other than the patient for history (EMS, parent, family, police, friend...)? What history was obtained from this source @ -Family is present and helps by history as patient is slightly confused Did you review nursing and triage notes (agree or disagree)? Why? @ -I reviewed and agree with nursing and triage notes Were old charts reviewed (outside hosp., previous admission, EMS record, old EKG, old radiological studies, urgent care reports/EKG's, group home records)? Report findings @ -No old charts were reviewed Differential Diagnosis (chest pain, altered mental status, abdominal pain women, abdominal pain men, vaginal bleeding, weakness, fever, dyspnea, syncope, headache, dizziness, GI bleed, back pain, seizure, CVA, palpatations, mental health)? @ -not applicable EKG interpreted by me (3pts min.). @ -As above X-rays interpreted by me (1pt min.). @ -None done CT interpreted by me (1pt min.). @ -None done U/S interpreted by me (1pt. min.). @ -None done What testing was considered but not performed or refused? (CT, X-rays, U/S, labs)? Why? @ -None What meds were considered but not given or refused? Why? @ -None Did you discuss the management of the patient with other professionals (professionals i.e. , BLAIR, ANIMAL CHIROPRACTOR, lab, RT, psych nurse, social media director, industrial engineering intern, teacher, trust officer, porter sample case)? Give summary @ -[Case was discussed with Dr. Mcwilliams who will admit his patient secondary to prolonged seizure activity Was smoking cessation discussed for >3mins.? @ -No Was critical care preformed (if so, how long)? @ -No Were there social determinants of health that impacted care today? How? (Belinda elessness, low income, unemployed, alcoholism, drug addiction, transportation, low edu. Level, literacy, decrease access to med. care, snf, rehab)? @ -No Was there de-escalation of care discussed even if they declined (Discuss DNR or withdrawal of care, Hospice)? DNR status @ -No What co-morbidities impacted this encounter? (DM, HTN, Smoking, COPD, CAD, Cancer, CVA, ARF, Chemo, Hep., AIDS, mental health diagnosis, sleep apnea, morbid obesity)? @ -None Was patient admitted / discharged? Hospital course, mention meds given and route, prescriptions, significant lab abnormalities, going to OR and other pertinent info. @ -Patient reevaluated. Patient and family updated on results and plan. Patient did take an extra Keppra just prior to arrival and does not want additional Keppra. Patient will be held for observation secondary to prolonged seizure activity with neurology consult Undiagnosed new problem with uncertain prognosis? @ -No Drug Therapy requiring intensive monitoring for toxicity (Heparin, Nitro, Insulin, Cardizem)? @ -No Were any procedures done? @ -No Diagnosis/symptom? @ -Seizure Acute, or Chronic, or Acute on Chronic? @ -Acute on chronic Uncomplicated (without systemic symptoms) or Complicated (systemic symptoms)? @ -default Side effects of treatment? @ -No Exacerbation, Progression, or Severe Exacerbation? @ -No Poses a threat to life or bodily function? How? (Chest pain, [place], [place], pneumonia, PE, COPD, DKA, ARF, appy, cholecystitis, CVA, Diverticulitis, Homicidal, Suicidal, threat to staff... and all critical care pts) @ -No - Lab Data Result diagrams: 06/02/22 17:14 06/02/22 17:14 Lab Results 06/02/22 06/02/22 06/02/22 Range/Units 17:00 17:14 17:14 WBC 7.6 (3.8-10.6) k/uL RBC 3.95 (3.80-5.40) m/uL Hgb 11.9 (11.4-16.0) gm/dL Hct 36.8 (34.0-46.0) % MCV 93.2 (80.0-100.0) fL MCH 30.2 (25.0-35.0) pg MCHC 32.4 (31.0-37.0) g/dL RDW 17.0 H (11.5-15.5) % Plt Count 192 (150-450) k/uL MPV 7.4 Neutrophils % 65 % Lymphocytes % 23 % Monocytes % 7 % Eosinophils % 3 % Basophils % 1 % Neutrophils # 4.9 (1.3-7.7) k/uL Lymphocytes # 1.7 (1.0-4.8) k/uL Monocytes # 0.5 (0-1.0) k/uL Eosinophils # 0.2 (0-0.7) k/uL Basophils # 0.1 (0-0.2) k/uL Anisocytosis Slight Sodium 137 (137-145) mmol/L Potassium 4.0 (3.5-5.1) mmol/L Chloride 106 (98-107) mmol/L Carbon Dioxide 27 (22-30) mmol/L Anion Gap 4 mmol/L BUN 17 (7-17) mg/dL Creatinine 0.94 (0.52-1.04) mg/dL Est GFR (CKD-EPI)AfAm 75 (>60 ml/min/1.73 sqM) Est GFR (CKD-EPI)NonAf 65 (>60 ml/min/1.73 sqM) Glucose 88 (74-99) mg/dL POC Glucose (mg/dL) 97 (70-110) mg/dL POC Glu Investigator Welfare ID Pauly Downing Calcium 8.0 L (8.4-10.2) mg/dL Magnesium 1.8 (1.6-2.3) mg/dL Total Bilirubin 0.3 (0.2-1.3) mg/dL AST 17 (14-36) U/L ALT 12 (4-34) U/L Alkaline Phosphatase 77 (38-126) U/L Total Protein 5.5 L (6.3-8.2) g/dL Albumin 3.2 L (3.5-5.0) g/dL Disposition Clinical Impression: Generalized seizure Disposition: ADMITTED IP TO THIS HOSP Instructions (If sedation given, give patient instructions): Seizure/Epilepsy Discharge Instructions & Follow-Up Is patient prescribed a controlled substance at d/c from ED?: No Referrals: Jose F Mcwilliams MD [Primary Care Provider] - 1-2 days Time of Disposition: 19:17
[2022-06-02 17:41] LABS: Anisocytosis Slight; Basophils # (A) 0.1 k/uL (0-0.2); Basophils % (A) 1 %; Eosinophils # (A) 0.2 k/uL (0-0.7); Eosinophils % (A) 3 %; HCT 36.8 % (34.0-46.0); HGB 11.9 gm/dL (11.4-16.0); Lymphocytes # (A) 1.7 k/uL (1.0-4.8); Lymphocytes % (A) 23 %; MCH 30.2 pg (25.0-35.0); MCHC 32.4 g/dL (31.0-37.0); MCV 93.2 fL (80.0-100.0); Mean Platelet Volume 7.4; Monocytes # (A) 0.5 k/uL (0-1.0); Monocytes % (A) 7 %; Neutrophils # (A) 4.9 k/uL (1.3-7.7); Neutrophils % (A) 65 %; Platelet Count 192 k/uL (150-450); RBC 3.95 m/uL (3.80-5.40); WBC 7.6 k/uL (3.8-10.6)
[2022-06-02 17:43] LABS: Albumin 3.2 g/dL (3.5-5.0); Magnesium 1.8 mg/dL (1.6-2.3); Total Bilirubin 0.3 mg/dL (0.2-1.3); Total Protein 5.5 g/dL (6.3-8.2)
[2022-06-02] MEDS ORDERED: LORazepam 2 MG/ML INJ IV PRN (19:18)
[2022-06-02] MEDS ORDERED: NALOXONE 0.4 MG/ML 1 ML VIAL IV PRN (19:18)
[2022-06-02] MEDS ORDERED: ACETAMINOPHEN TAB 325 MG TAB PO PRN (19:18)
[2022-06-02] MEDS: levETIRAcetam 500 MG TAB PO SCH (21:06)
[2022-06-03] MEDS ORDERED: IBUPROFEN 200 MG TAB PO PRN (08:32)
--- NOTE | 2022-06-03 08:42 | P.HPIM ---
History of Present Illness H&P Date: 06/03/22 Chief Complaint: Seizure This is a 61-year-old female who presented to the emergency room following a seizure home. Patient reports she had just got home from shopping, was sitting in a chair and began shaking. She denies any loss of consciousness. Seizure lasted approximately 20 minutes. Patient reports all symptoms have resolved and she is feeling much better. Past medical history includes asthma, CAD, COPD, and seizure disorder. Review of Systems Constitutional: Denies chills, Denies fever Cardiovascular: Denies chest pain, Denies dyspnea on exertion Respiratory: Denies cough, Denies dyspnea Gastrointestinal: Denies constipation, Denies diarrhea Musculoskeletal: Denies arm numbness/tingling, Denies leg numbness/tingling Neurological: Reports seizures, Denies headaches, Denies weakness Past Medical History Past Medical History: Asthma, Coronary Artery Disease (CAD), Chest Pain / Angina, COPD, Seizure Disorder, Thyroid Disorder Additional Past Medical History / Comment(s): NEUROPATHY TO BILAT HANDS AND LEGS AND RT FOOT. Left carotid blockage History of Any Multi-Drug Resistant Organisms: None Reported Past Surgical History: Heart Catheterization, Heart Catheterization With Stent, Hysterectomy, Orthopedic Surgery Additional Past Surgical History / Comment(s): RT ROTATOR CUFF REPAIR, CYSTS REMOVED FROM UNDER ARMS AND HANDS, 7 stents, 07/18/18 left subclavian stent. 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 Date of Last Stent Placement:: Nov 2017 Past Psychological History: Depression Smoking Status: Current every day smoker Past Alcohol Use History: None Reported Additional Past Alcohol Use History / Comment(s): SMOKES 3-4 cig/day currently. Started smoking at age 11 Past Drug Use History: None Reported - Past Family History Mother Family Medical History: Cancer Sister(s) Family Medical History: Cancer Medications and Allergies Home Medications Medication Instructions Recorded Confirmed Type Escitalopram [Lexapro] 20 mg PO BID 11/28/17 06/02/22 History Levothyroxine Sodium 200 mcg PO DAILY 08/20/20 06/02/22 History Nitroglycerin Sl Tabs [Nitrostat] 0.4 mg SL Q5M PRN 08/20/20 06/02/22 History levETIRAcetam [Keppra] 1,500 mg PO BID 12/11/20 06/02/22 History Gabapentin 600 mg PO TID 06/18/21 06/02/22 History cloNIDine HCL 0.2 mg PO BID 08/06/21 06/02/22 History Doxepin [SINEquan] 10 mg PO HS 02/25/22 06/02/22 History Fluticasone/Umeclidin/Vilanter 1 puff INHALATION RT-DAILY 02/25/22 06/02/22 History [Trelegy Ellipta 200-62.5-25] Metoprolol Tartrate [Lopressor] 25 mg PO BID #60 tab 02/26/22 06/02/22 Rx Ibuprofen [Motrin Ib] 200 mg PO BID PRN 04/11/22 06/02/22 History Ipratropium-Albuterol Nebulize 3 mg INHALATION RT-BID 04/11/22 06/02/22 History [Duoneb 0.5 mg-3 mg/3 ml Soln] Buprenorphine HCl/Naloxone HCl 1 tab SUBLINGUAL DAILY 06/02/22 06/02/22 History [Zubsolv 2.9-0.71 mg Tablet Sl] Allergies Allergy/AdvReac Type Severity Reaction Status Date / Time No Known Allergies Allergy Verified 06/02/22 19:36 Physical Exam Vitals: Vital Signs Temp Pulse Pulse Resp BP BP Pulse Ox 06/03/22 06:00 73 123/80 06/03/22 04:08 64 16 132/69 93 L 06/03/22 02:00 71 16 107/40 93 L 06/03/22 00:00 67 104/50 06/02/22 23:00 64 125/52 06/02/22 22:00 65 108/41 06/02/22 21:04 68 17 100/53 95 06/02/22 19:37 97.7 F 64 16 90/63 94 L 06/02/22 18:06 97.6 F 60 17 113/64 98 06/02/22 16:35 59 L 16 83/50 95 06/02/22 16:11 97.7 F 61 16 92/40 94 L Intake and Output 06/02/22 06/03/22 06/03/22 22:59 06:59 14:59 Output Total 2 Balance -2 Output: Urine 2 Other: Weight 67.132 kg 67.132 kg - Constitutional General appearance: cooperative, no acute distress - EENT Eyes: EOMI, PERRLA - Neck Neck: no lymphadenopathy, normal ROM, no rigidity - Respiratory Respiratory: bilateral: CTA - Cardiovascular Rhythm: regular Heart sounds: normal: S1, S2 - Gastrointestinal General gastrointestinal: soft, no tenderness - Integumentary Integumentary: normal, normal turgor - Neurologic Neurologic: CNII-XII intact - Psychiatric Psychiatric: A&O x's 3, appropriate affect, intact judgment & insight Results CBC & Chem 7: 06/02/22 17:14 06/02/22 17:14 Labs: Abnormal Lab Results - Last 24 Hours (Table) 06/02/22 06/02/22 06/02/22 Range/Units 17:14 17:14 17:14 RDW 17.0 H (11.5-15.5) % Calcium 8.0 L (8.4-10.2) mg/dL Total Protein 5.5 L (6.3-8.2) g/dL Albumin 3.2 L (3.5-5.0) g/dL Levetiracetam 80.6 H (3.0-60.0) ug/mL Thrombosis Risk Factor Assmnt - Choose All That Apply Any of the Below Risk Factors Present?: Yes Each Factor Represents 1 point: Abnormal pulmonary function (COPD), Obesity (BMI >25) Other Risk Factors: Yes Each Risk Factor Represents 2 Points: Age 61-74 years Other congenital or acquired thrombophilia - If yes, enter type in comment: No Thrombosis Risk Factor Assessment Total Risk Factor Score: 4 Thrombosis Risk Factor Assessment Level: Moderate Risk Assessment and Plan (1) Generalized seizure Current Visit: Yes Status: Acute Code(s): R56.9 - UNSPECIFIED CONVULSIONS SNOMED Code(s): 920733988 (2) COPD (chronic obstructive pulmonary disease) Current Visit: No Status: Acute Code(s): J44.9 - CHRONIC OBSTRUCTIVE PULMONARY DISEASE, UNSPECIFIED SNOMED Code(s): 24531147 (3) CAD (coronary artery disease) Current Visit: No Status: Acute Code(s): I25.10 - ATHSCL HEART DISEASE OF [place] CORONARY ARTERY W/O ANG PCTRS SNOMED Code(s): 83808859 (4) Hypothyroid Current Visit: Yes Status: Acute Code(s): E03.9 - HYPOTHYROIDISM, UNSPECIFIED SNOMED Code(s): 74027675 Plan: Home medications have been reconciled. Appreciate neurology consult. Seizure precautions and neuro checks every shift Patient seen and evaluated by nurse practitioner, physician in agreement with plan
[2022-06-03] MEDS: levETIRAcetam 500 MG TAB PO SCH ×3 (09:59→20:55)
[2022-06-03] MEDS: GABAPENTIN 300 MG CAP PO SCH ×3 (10:00→20:55)
[2022-06-03] MEDS: METOPROLOL TARTRATE 25 MG TAB PO SCH ×2 (10:00→20:54)
[2022-06-03] MEDS: cloNIDine HCL 0.2 MG TAB PO SCH ×2 (10:00→20:54)
[2022-06-03] MEDS: ESCITALOPRAM 20 MG TAB PO SCH ×2 (10:01→20:54)
--- NOTE | 2022-06-03 10:42 | P.CNNES ---
History of Present Illness Consult date: 06/03/22 Requesting physician: Cory Gotti Reason for Consult: seizure History of Present Illness: This is a 61-year-old woman with history of seizure is under the emergency department because of breakthrough seizure. Patient stated that her last seizure was about 1-2 years ago and yesterday in the early afternoon she felt like she is having shaking of her arms and legs but did not lose consciousness. She denies any urinary incontinence, bowel incontinence, tongue bite. She was aware of the entire episode the entire episode lasted for 20 minutes. She is compliant taking Keppra 1500 mg twice a day. Patient stated that she's followed up with Dr. Brito for her neurological care. She stated that she's been getting EEGs but does not recall when was the last EEG she received. She currently feels back to baseline. Denies of any recent fevers. Of note patient is known to our neurology team and she was last seen by me on 12/16/2020. Please refer to our notes further details. Some of the workup during his hospital visit consisted of: Patient is afebrile and the white blood cell is within normal limits. POC glucose is 97. Calcium is 8.0, magnesium is 1.8, AST ALT and the sodium is within normal limits. Keppra level is 80.6 and normal is between 3-60. Also patient last CT of the head in our facility was in 02/25/2022 and reported as minimal atrophy appropriate for age. No acute intracranial abnormality. No change. Review of Systems Review of system: The 12 point system was reviewed and apparent positive and negative per HPI. 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 Left carotid blockage History of Any Multi-Drug Resistant Organisms: None Reported Past Surgical History: Heart Catheterization, Heart Catheterization With Stent, Hysterectomy, Orthopedic Surgery Additional Past Surgical History / Comment(s): RT ROTATOR CUFF REPAIR, CYSTS REMOVED FROM UNDER ARMS AND HANDS, 7 stents, 07/18/18 left subclavian stent. 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 Date of Last Stent Placement:: Nov 2017 Past Psychological History: Depression Smoking Status: Current every day smoker Past Alcohol Use History: None Reported Additional Past Alcohol Use History / Comment(s): SMOKES 3-4 cig/day currently. Started smoking at age 11 Past Drug Use History: None Reported - Past Family History Mother Family Medical History: Cancer Sister(s) Family Medical History: Cancer Medications and Allergies Home Medications Medication Instructions Recorded Confirmed Type Escitalopram [Lexapro] 20 mg PO BID 11/28/17 06/02/22 History Levothyroxine Sodium 200 mcg PO DAILY 08/20/20 06/02/22 History Nitroglycerin Sl Tabs [Nitrostat] 0.4 mg SL Q5M PRN 08/20/20 06/02/22 History levETIRAcetam [Keppra] 1,500 mg PO BID 12/11/20 06/02/22 History Gabapentin 600 mg PO TID 06/18/21 06/02/22 History cloNIDine HCL 0.2 mg PO BID 08/06/21 06/02/22 History Doxepin [SINEquan] 10 mg PO HS 02/25/22 06/02/22 History Fluticasone/Umeclidin/Vilanter 1 puff INHALATION RT-DAILY 02/25/22 06/02/22 History [Trelegy Ellipta 200-62.5-25] Metoprolol Tartrate [Lopressor] 25 mg PO BID #60 tab 02/26/22 06/02/22 Rx Ibuprofen [Motrin Ib] 200 mg PO BID PRN 04/11/22 06/02/22 History Ipratropium-Albuterol Nebulize 3 mg INHALATION RT-BID 04/11/22 06/02/22 History [Duoneb 0.5 mg-3 mg/3 ml Soln] Buprenorphine HCl/Naloxone HCl 1 tab SUBLINGUAL DAILY 06/02/22 06/02/22 History [Zubsolv 2.9-0.71 mg Tablet Sl] Allergies Allergy/AdvReac Type Severity Reaction Status Date / Time No Known Allergies Allergy Verified 06/02/22 19:36 Physical Examination - Vital Signs Vital Signs: Vital Signs Temp Pulse Pulse Resp BP BP Pulse Ox 06/03/22 06:00 73 123/80 06/03/22 04:08 64 16 132/69 93 L 06/03/22 02:00 71 16 107/40 93 L 06/03/22 00:00 67 104/50 06/02/22 23:00 64 125/52 06/02/22 22:00 65 108/41 06/02/22 21:04 68 17 100/53 95 06/02/22 19:37 97.7 F 64 16 90/63 94 L 06/02/22 18:06 97.6 F 60 17 113/64 98 06/02/22 16:35 59 L 16 83/50 95 06/02/22 16:11 97.7 F 61 16 92/40 94 L Intake and Output 06/02/22 06/03/22 06/03/22 22:59 06:59 14:59 Output Total 2 Balance -2 Output: Urine 2 Other: Weight 67.132 kg 67.132 kg GENERAL: The patient is lying in bed and is not in acute distress. CHEST: The heart rate is regular rate rhythm. No murmurs to auscultation. LUNG: Clear to auscultation bilaterally no wheezing noted throughout. Not labored breathing. ABDOMEN/GI: Bowel sounds present in all 4 quadrants. No tenderness to palpation throughout. NEUROLOGICAL: Higher mental function: The patient is awake, alert, oriented to self, place and time. Patient is following commands. No aphasia and no neglect. Cranial nerves: The pupils are round, equal and reactive to light and accommodation. Visual pierson are full to confrontation throughout. Extraocular movement is intact no nystagmus is noted. Facial sensation is normal to touch throughout. The facial strength is normal throughout. Hearing is mildly decreased bilaterally to hand rub. Tongue is midline and moved [id number] without any difficulty. No dysarthria is noted. Shoulder shrug is normal bilaterally. Motor: The strength is 5 over 5 throughout uppers. Lowers is limited because of knee issues but is able to lift above gravity without focality. Normal tone and bulk. Cerebellum: Normal finger to nose bilaterally. Sensation: Sensation is normal to touch throughout. Reflexes (right/left): 1+ throughout. Plantars are mute bilaterally. Results - Laboratory Findings CBC and BMP: 06/02/22 17:14 06/02/22 17:14 Abnormal Lab Findings: Abnormal Labs 06/02/22 06/02/22 06/02/22 17:14 17:14 17:14 RDW 17.0 H Calcium 8.0 L Total Protein 5.5 L Albumin 3.2 L Levetiracetam 80.6 H Assessment and Plan Assessment: Breakthrough seizure. History of seizure and last seizure was about 1-2 years ago History of memory loss rule out underlying mild cognitive impairment/dementia. Possible some of her memory issues due to underlying medical issues (hypothryoidism and has low normal vitamin B12 and folate) History of COPD History of left internal carotid artery stenosis and had an angiography on 2019 the patient had a stent per family (by Dr. Vale) History according artery disease status post that History of hypothryroidism History of hyperlipidemia Chronic ongoing nicotine use Plan: In addition to her Keppra 1500 mg twice a day I added Vimpat 50 mg twice a day because of her breakthrough seizures. Her Keppra level was supratherapeutic but I'll not modify her Keppra dose since not complaining of side effects from it. I ordered a routine EEG. I ordered TSH, vitamin B12, folate level. Recommend MRI of the brain with and without as well as a neuropsych evaluation as an outpatient for her memory issues. Placed on seizure precautions seizure pads We'll defer the rest of the medical management to primary team Per [facility] because of the seizure, to avoid driving for 6 month until seizure-free, avoid heights, avoids swimming unassisted or using heavy machinery Recommend the patient to follow-up with her neurologist as an outpatient (Dr. Fulton) within 1-2 weeks. The plan was discussed with the patient and her nurses at bedside. Thank you for the consultation Time with Patient: Greater than 30
[2022-06-03] MEDS: LACOSAMIDE 50 MG TABLET PO SCH ×2 (11:17→20:54)
[2022-06-03 13:55] LABS: T4, Free (Free Thyroxine) 1.57 ng/dL (0.78-2.19)
[2022-06-03] MEDS: IPRATROPIUM 0.5 MG/2.5 ML NEBU INHALATION SCH (17:37)
[2022-06-03] MEDS: ALBUTEROL NEBULIZED 2.5 MG/3 ML INHALATION SCH (17:37)
[2022-06-03] MEDS ORDERED: IPRATROPIUM-ALBUTEROL 3 ML NEB INHALATION SCH (20:00)
[2022-06-03] MEDS ORDERED: DOXEPIN 10 MG CAP PO SCH (21:00)
--- NOTE | 2022-06-03 23:21 | EEG ---
ELECTROENCEPHALOGRAM REPORT CLINICAL HISTORY: This is a 61-year-old woman with history of seizure who presented to the ED because of breakthrough seizure. The video EEG is obtained to evaluate for seizure epileptiform activity. RELEVANT MEDICATION: Keppra. EEG TYPE: A routine 21 channel EEG is performed with video using the 10/20 electrode system. DESCRIPTION: Wakefulness is only obtained. During awake state, the posterior-dominant rhythm consists of low to moderate voltage of 6.5 to 7.5 hertz activity that is well modulated and well sustained. There is no physiological stage II sleep architecture. There is no focal slowing. INTERICTAL AND ICTAL: None. ACTIVATION PROCEDURE: Photic stimulation did not evoke a posterior driving response. There is no abnormality during the photic stimulation. Hyperventilation is not performed. CLINICAL INTERPRETATION: This is an abnormal routine EEG. The background slowing suggestive of mild encephalopathy. Otherwise, there is no focal slowing, epileptiform discharge or seizure on the EEG. Clinical correlation is recommended. PILI / GÉNESISN: [id number] /
[2022-06-04] MEDS ORDERED: LEVOTHYROXINE 100 MCG TAB PO SCH (06:30)
[2022-06-04 06:46] VITALS: BP 108/64; RESP 18; TEMP 97.8
[2022-06-04] MEDS ORDERED: SYMBICORT 80-4.5 MCG INHALER INHALATION SCH (08:00)
[2022-06-04] MEDS: LACOSAMIDE 50 MG TABLET PO SCH (08:12)
[2022-06-04] MEDS: levETIRAcetam 500 MG TAB PO SCH (08:12)
[2022-06-04] MEDS: GABAPENTIN 300 MG CAP PO SCH (08:12)
[2022-06-04] MEDS: METOPROLOL TARTRATE 25 MG TAB PO SCH (08:13)
[2022-06-04] MEDS: cloNIDine HCL 0.2 MG TAB PO SCH (08:13)
[2022-06-04] MEDS: ESCITALOPRAM 20 MG TAB PO SCH (08:13)
--- NOTE | 2022-06-04 08:23 | P.DS ---
Providers Date of admission: 06/02/22 19:19 Attending physician: Jose F Mcwilliams Consults: 06/02/22 19:18 Consult Physician Routine Consulting Provider: Tang Castillo Consult Reason/Comments: seizure Do you want consulting provider notified?: Yes Primary care physician: Jose F Mcwilliams Hospital Course: The patient is here essentially for breakthrough seizure. Neurology was consulted EEG is abnormal then pat was ordered and added. The patient is had no further symptoms she is back to her normal mental status baseline and ambulating voiding without difficulty and tolerating diet. She'll follow-up with me in 3 days. Appropriate seizure precautions and driving restrictions have been noted. Patient Condition at Discharge: Stable Plan - Discharge Summary Discharge Rx Participant: Yes New Discharge Prescriptions: New Lacosamide [Vimpat] 50 mg PO BID #60 tab levETIRAcetam [Keppra] 1,000 mg PO TID #180 tab Continue Escitalopram [Lexapro] 20 mg PO BID Nitroglycerin Sl Tabs [Nitrostat] 0.4 mg SL Q5M PRN PRN Reason: Chest Pain Doxepin [SINEquan] 10 mg PO HS Fluticasone/Umeclidin/Vilanter [Trelegy Ellipta 200-62.5-25] 1 puff INHALATION RT-DAILY Metoprolol Tartrate [Lopressor] 25 mg PO BID #60 tab Levothyroxine Sodium 200 mcg PO DAILY Gabapentin 600 mg PO TID cloNIDine HCL 0.2 mg PO BID Ipratropium-Albuterol Nebulize [Duoneb 0.5 mg-3 mg/3 ml Soln] 3 mg INHALATION RT-BID Ibuprofen [Motrin Ib] 200 mg PO BID PRN PRN Reason: Fever And/ Or Pain Buprenorphine HCl/Naloxone HCl [Zubsolv 2.9-0.71 mg Tablet Sl] 1 tab SUBLINGUAL DAILY Discontinued levETIRAcetam [Keppra] 1,500 mg PO BID Discharge Medication List Escitalopram [Lexapro] 20 mg PO BID 11/28/17 [History] Levothyroxine Sodium 200 mcg PO DAILY 08/20/20 [History] Nitroglycerin Sl Tabs [Nitrostat] 0.4 mg SL Q5M PRN 08/20/20 [History] Gabapentin 600 mg PO TID 06/18/21 [History] cloNIDine HCL 0.2 mg PO BID 08/06/21 [History] Doxepin [SINEquan] 10 mg PO HS 02/25/22 [History] Fluticasone/Umeclidin/Vilanter [Trelegy Ellipta 200-62.5-25] 1 puff INHALATION RT-DAILY 02/25/22 [History] Metoprolol Tartrate [Lopressor] 25 mg PO BID #60 tab 02/26/22 [Rx] Ibuprofen [Motrin Ib] 200 mg PO BID PRN 04/11/22 [History] Ipratropium-Albuterol Nebulize [Duoneb 0.5 mg-3 mg/3 ml Soln] 3 mg INHALATION RT-BID 04/11/22 [History] Buprenorphine HCl/Naloxone HCl [Zubsolv 2.9-0.71 mg Tablet Sl] 1 tab SUBLINGUAL DAILY 06/02/22 [History] Lacosamide [Vimpat] 50 mg PO BID #60 tab 06/04/22 [Rx] levETIRAcetam [Keppra] 1,000 mg PO TID #180 tab 06/04/22 [Rx] Follow up Appointment(s)/Referral(s): Jose F Mcwilliams MD [Primary Care Provider] - 3 Days Patient Instructions/Handouts: Seizure/Epilepsy Discharge Instructions & Follow-Up Discharge Disposition: HOME SELF-CARE
[2022-06-04] MEDS: IPRATROPIUM 0.5 MG/2.5 ML NEBU INHALATION SCH (08:47)
[2022-06-04] MEDS: ALBUTEROL NEBULIZED 2.5 MG/3 ML INHALATION SCH (08:47)
[2022-06-04 09:07] VITALS: PULSE 63
[2022-06-04] MEDS ORDERED: CYANOCOBALAMIN 1,000 MCG/ML 1 ML VIAL IM SCH (10:00)
--- NOTE | 2022-06-04 11:53 | P.PN ---
Subjective Progress Note Date: 06/04/22 Patient is a seen at bedside and that she's feeling that she's doing great. Feels she is at baseline. Objective - Vital Signs Vital signs: Vital Signs Temp 97.8 F 06/04/22 06:44 Pulse 63 06/04/22 09:04 Resp 18 06/04/22 06:44 BP 108/64 06/04/22 06:44 Pulse Ox 93 L 06/04/22 08:51 FiO2 Intake & Output 06/03/22 06/04/22 06/04/22 18:59 06:59 18:59 Intake Total 240 122 Balance 240 122 Intake: Oral 240 122 Other: Voiding Method Bedside Commode # Voids 2 2 - Exam GENERAL: The patient is lying in bed and is not in acute distress. NEUROLOGICAL: Higher mental function: The patient is awake, alert, oriented to self, place and time. Patient is following commands. No aphasia and no neglect. Cranial nerves: The pupils are round, equal and reactive to light and accommodation. Visual pierson are full to confrontation throughout. Extraocular movement is intact no nystagmus is noted. Facial sensation is normal to touch throughout. The facial strength is normal throughout. Hearing is mildly decreased bilaterally to hand rub. Tongue is midline and moved [id number] without any difficulty. No dysarthria is noted. Shoulder shrug is normal bilaterally. Motor: The strength is 5 over 5 throughout uppers. Lowers is limited because of knee issues but is able to lift above gravity without focality. Normal tone and bulk. Cerebellum: Normal finger to nose bilaterally. Sensation: Sensation is normal to touch throughout. Reflexes (right/left): 1+ throughout. Plantars are mute bilaterally. Some of the workup during his hospital visit consisted of: Vitamin B12 (deficient), Folate is 10.5 TSH: <0.015 but free T4 1.57 POC glucose is 97. Calcium is 8.0, magnesium is 1.8, AST ALT and the sodium is within normal limits. Keppra level is 80.6 and normal is between 3-60. Routine EEG: Is abnormal. The background slowing suggestive of mild encephalopathy. Otherwise there is no focal slowing, epileptiform discharges or seizure on the EEG. - Labs CBC & Chem 7: 06/02/22 17:14 06/02/22 17:14 Labs: Abnormal Lab Results - Last 24 Hours (Table) 06/03/22 Range/Units 11:38 Vitamin B12 188.0 L (200.0-944.0) pg/mL TSH <0.015 L (0.465-4.680) mIU/L Assessment and Plan Assessment: Breakthrough seizure. History of seizure and last seizure was about 1-2 years ago Vitamin B12 deficiency that is ongoing. History of memory Possible some of her memory issues due to underlying medical issues (hypothryoidism and vitamin vitamin B12 deficiency). Cannot rule out other underlying cognitive impairement/dementia. History of COPD History of left internal carotid artery stenosis and had an angiography on 2019 the patient had a stent per family (by Dr. Vale) History according artery disease status post that History of hypothryroidism History of hyperlipidemia Chronic ongoing nicotine use Plan: In addition to her Keppra 1500 mg twice a day I added Vimpat 50 mg twice a day because of her breakthrough seizures. Her Keppra level was supratherapeutic but I'll not modify her Keppra dose since not complaining of side effects from it. I placed her on vitamin B12 1000 g IM and recommended for 3 days and after that by mouth. Recommend MRI of the brain with and without as well as a neuropsych evaluation as an outpatient for her memory issues. Placed on seizure precautions seizure pads We'll defer the rest of the medical management to primary team Per [facility] because of the seizure, to avoid driving for 6 month until seizure-free, avoid heights, avoids swimming unassisted or using heavy machinery Recommend the patient to follow-up with her neurologist as an outpatient (Dr. Fulton) within 1-2 weeks. The plan was discussed with the patient and her nurse at bedside. Otherwise there is no additional neurological workup. Time with Patient: Less than 30
[2022-06-07] MEDS ORDERED: CYANOCOBALAMIN 500 MCG TAB PO SCH (09:00)
== END 2022-06-04 10:50 | disposition home or self-care (01) ==
LOC: EC 16:03 → 5NMEDONC 19:19 → 6NMEDSUR 06-03 08:23
PROVIDERS: ADMIT Family Medicine; ATTEND Family Medicine
DX: R56.9 Unspecified convulsions (principal); E03.9 Hypothyroidism, unspecified; J44.9 Chronic obstructive pulmonary disease, unspecified; I25.10 Atherosclerotic heart disease of native coronary artery without angina pectoris; G62.9 Polyneuropathy, unspecified; E53.8 Deficiency of other specified B group vitamins; R41.3 Other amnesia; I65.22 Occlusion and stenosis of left carotid artery; F17.210 Nicotine dependence, cigarettes, uncomplicated; F32.A Depression, unspecified; Z95.5 Presence of coronary angioplasty implant and graft; Z90.710 Acquired absence of both cervix and uterus; Z95.820 Peripheral vascular angioplasty status with implants and grafts; Z98.890 Other specified postprocedural states; Z80.9 Family history of malignant neoplasm, unspecified; Z79.890 Hormone replacement therapy; Z79.51 Long term (current) use of inhaled steroids; Z79.899 Other long term (current) drug therapy; Z79.891 Long term (current) use of opiate analgesic
CPT/HCPCS: 96372; 99285; 36415; 94640 ×3; 94760 ×2; 95816; 93005; 84439; 80053; 80177; 84443; 82607; 82746; 83735; 85025; G0378 ×4; J3420

== ENCOUNTER 2022-06-17 16:05 | Inpatient (IN) | payer MEDICARE ==
--- NOTE | 2022-06-17 17:16 | ED ---
SOB HPI - General Chief Complaint: Shortness of Breath Stated Complaint: Recheck Time Seen by Provider: 06/17/22 17:06 Source: patient Mode of arrival: wheelchair Limitations: no limitations - History of Present Illness Initial Comments: This patient is 61-year-old woman with history of underlying COPD who presents to have evaluation for shortness of breath. The patient states that she had been in the hospital after having had a seizure. She was discharged on June 04. She states that it feels like she picked up "a cold" while she was in the hospital. Since that time she has had congestion and cough though states she has not had change in sputum from her usual COPD cough. She went to see Dr. Mcwilliams in his office today. She was told that her pulse ox numbers were low there and he felt she should go to the hospital possibly for admission. Patient states that she is on oxygen at home, she uses a variable setting up to 5 L depending how she is feeling. She has not had chest pain. No known fever or chills. No change in urination or bowel movements. No change in leg pain or swelling. MD Complaint: shortness of breath, cough -: days(s) Severity scale (1-10): 0 Consistency: constant Improves With: oxygen Worsens With: exertion Known History Of: COPD Context: recent URI Associated Symptoms: cough Treatments Prior to Arrival: oxygen, bronchodilator - Related Data Home Medications Medication Instructions Recorded Confirmed Escitalopram [Lexapro] 20 mg PO BID 11/28/17 06/17/22 Levothyroxine Sodium 200 mcg PO DAILY 08/20/20 06/17/22 Nitroglycerin Sl Tabs [Nitrostat] 0.4 mg SL Q5M PRN 08/20/20 06/17/22 Gabapentin 600 mg PO TID 06/18/21 06/17/22 cloNIDine HCL 0.2 mg PO BID 08/06/21 06/17/22 Doxepin [SINEquan] 10 mg PO HS 02/25/22 06/17/22 Fluticasone/Umeclidin/Vilanter 1 puff INHALATION RT-DAILY 02/25/22 06/17/22 [Trelegy Ellipta 200-62.5-25] Ipratropium-Albuterol Nebulize 3 mg INHALATION RT-BID 04/11/22 06/17/22 [Duoneb 0.5 mg-3 mg/3 ml Soln] Buprenorphine HCl/Naloxone HCl 1 tab SUBLINGUAL DAILY 06/02/22 06/17/22 [Zubsolv 2.9-0.71 mg Tablet Sl] Previous Rx's Medication Instructions Recorded Metoprolol Tartrate [Lopressor] 25 mg PO BID #60 tab 02/26/22 Lacosamide [Vimpat] 50 mg PO BID #60 tab 06/04/22 levETIRAcetam [Keppra] 1,000 mg PO TID #180 tab 06/04/22 Aspirin 81 mg PO DAILY #30 tab 06/21/22 Atorvastatin [Lipitor] 40 mg PO HS #30 tab 06/21/22 Capsaicin Cream [Trixaicin Cream] 1 applic TOPICAL BID each 06/21/22 Famotidine [Pepcid] 20 mg PO BID #60 tab 06/21/22 glipiZIDE [Glucotrol] 2.5 mg PO AC-BID 10 Days #20 tablet 06/21/22 predniSONE 0 mg PO DIRECTED 14 Days #40 tab 06/21/22 Allergies Allergy/AdvReac Type Severity Reaction Status Date / Time No Known Allergies Allergy Verified 06/17/22 19:05 Review of Systems ROS Statement: Those systems with pertinent positive or pertinent negative responses have been documented in the HPI. ROS Other: All systems not noted in ROS Statement are negative. Constitutional: Denies: fever, chills ENT: Reports: congestion Respiratory: Reports: cough, dyspnea, wheezes. Denies: hemoptysis, stridor Cardiovascular: Reports: dyspnea on exertion. 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 Left carotid blockage History of Any Multi-Drug Resistant Organisms: None Reported Past Surgical History: Heart Catheterization, Heart Catheterization With Stent, Hysterectomy, Orthopedic Surgery Additional Past Surgical History / Comment(s): RT ROTATOR CUFF REPAIR, CYSTS REMOVED FROM UNDER ARMS AND HANDS, 7 stents, 07/18/18 left subclavian stent. 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 Date of Last Stent Placement:: Nov 2017 Past Psychological History: Depression Smoking Status: Current every day smoker Past Alcohol Use History: None Reported Past Drug Use History: None Reported - Past Family History Mother Family Medical History: Cancer Sister(s) Family Medical History: Cancer General Exam Limitations: no limitations General appearance: alert, in no apparent distress Head exam: Present: atraumatic, normocephalic Eye exam: Present: normal appearance. Absent: scleral icterus, conjunctival injection Neck exam: Present: normal inspection Respiratory exam: Present: wheezes, prolonged expiratory. Absent: respiratory distress, rales, rhonchi, stridor, chest wall tenderness, accessory muscle use, decreased breath sounds Cardiovascular Exam: Present: regular rate, normal rhythm, normal heart sounds. Absent: systolic murmur, diastolic murmur, rubs, gallop GI/Abdominal exam: Present: soft. Absent: distended, tenderness, guarding, rebound, rigid Extremities exam: Present: normal inspection, normal capillary refill. Absent: pedal edema, calf tenderness Back exam: Present: normal inspection. Absent: CVA tenderness (R), CVA tenderness (L) Neurological exam: Present: alert Skin exam: Present: warm, dry, intact, normal color. Absent: rash Course Vital Signs 06/17/22 06/17/22 06/17/22 16:55 17:27 18:32 Temperature 98.7 F Pulse Rate 64 82 64 Respiratory 18 18 18 Rate Blood Pressure 54/41 78/48 74/52 O2 Sat by Pulse 75 L 91 L 89 L Oximetry 06/17/22 06/17/22 06/17/22 19:43 19:59 20:07 Temperature Pulse Rate 84 86 86 Respiratory 18 18 Rate Blood Pressure 76/39 95/47 O2 Sat by Pulse 94 L 92 L Oximetry 06/17/22 06/17/22 06/18/22 20:19 22:49 00:15 Temperature Pulse Rate 89 84 78 Respiratory 18 18 Rate Blood Pressure 55/41 121/65 O2 Sat by Pulse 85 L 92 L Oximetry 06/18/22 06/18/22 06/18/22 00:56 01:25 02:09 Temperature Pulse Rate 76 64 65 Respiratory 18 18 18 Rate Blood Pressure 118/63 99/59 110/72 O2 Sat by Pulse 88 L 94 L 92 L Oximetry Procedures - Sepsis Sepsis Focused Exam #1 Sepsis Focused Exam Complete: Yes Vital Signs & RN Notes Reviewed: Yes Capillary Refill: < 2 Seconds: Fingers Peripheral Pulses: Normal: Radial (R) Skin Color: Flushed Respiratory Exam: wheezes Cardiovascular Exam: regular rate, normal rhythm, normal heart sounds Medical Decision Making - Medical Decision Making This patient is 61-year-old woman who was sent here from her physician's clinic to have further evaluation and probable admission for her dyspnea. The dyspnea does appear to be multifactorial. There is deftly COPD component, and the patient is started on prednisone, antibiotics, inhaled medication for this. Patient also received fluid bolus though more gentle than usual sepsis protocol given that there is some possible vascular congestion/CHF based on elevated BNP and x-ray. The patient's blood pressure has improved with fluids. Chest x-ray is obtained which I interpreted as showing no acute infiltrate, no pneumothorax, possible vascular congestion suggestive of mild CHF Was pt. sent in by a medical professional or institution ([facility], [facility], urgent care, hospital, or alf...) When possible be specific @ -sent by primary physician Did you speak to anyone other than the patient for history (EMS, parent, family, police, friend...)? What history was obtained from this source @ -[No] Did you review nursing and triage notes (agree or disagree)? Why? @ -[I reviewed and agree with nursing and triage notes] Were old charts reviewed (outside hosp., previous admission, EMS record, old EKG, old radiological studies, urgent care reports/EKG's, alf records)? Report findings @ -[old charts were reviewed] Differential Diagnosis (chest pain, altered mental status, abdominal pain women, abdominal pain men, vaginal bleeding, weakness, fever, dyspnea, syncope, headache, dizziness, GI bleed, back pain, seizure, CVA, palpatations, mental health, musculoskeletal)? @ -[Differential Dyspnea: Coronary syndrome, arrhythmia, tamponade, asthma, COPD, pulmonary embolism, pneumonia, pneumothorax, pulmonary effusion, anaphylaxis, diabetic ketoacidosis, flailed chest, pulmonary contusion, diaphragmatic rupture, anemia, neuromuscular, this is not meant to be an all-inclusive list. EKG interpreted by me (3pts min.). @ -[As above] X-rays interpreted by me (1pt min.). @ -As above CT interpreted by me (1pt min.). @ -[None done] U/S interpreted by me (1pt. min.). @ -[None done] What testing was considered but not performed or refused? (CT, X-rays, U/S, labs)? Why? @ -[None] What meds were considered but not given or refused? Why? @ -[None] Did you discuss the management of the patient with other professionals (professionals i.e. , PA, CHICK GRADER, lab, RT, psych nurse, social welfare clerk, jewelry mechanic, teacher, intelligence officer basic, disease case manager)? Give summary @ -[Admitting physician Was smoking cessation discussed for >3mins.? @ -[No] Was critical care preformed (if so, how long)? @ -[No] Were there social determinants of health that impacted care today? How? (Homelessness, low income, unemployed, alcoholism, drug addiction, transp ortation, low edu. Level, literacy, decrease access to med. care, nursing home, rehab)? @ -[No] Was there de-escalation of care discussed even if they declined (Discuss DNR or withdrawal of care, Hospice)? DNR status @ -[No] What co-morbidities impacted this encounter? (DM, HTN, Smoking, COPD, CAD, Cancer, CVA, ARF, Chemo, Hep., AIDS, mental health diagnosis, sleep apnea, morbid obesity)? @ -[None] Was patient admitted / discharged? Hospital course, mention meds given and route, prescriptions, significant lab abnormalities, going to OR and other pertinent info. @ -[Admitted Undiagnosed new problem with uncertain prognosis? @ -[No] Drug Therapy requiring intensive monitoring for toxicity (Heparin, Nitro, Insu andre, Cardizem)? @ -[No] Were any procedures done? @ -[No] Diagnosis/symptom? @ -[COPD exacerbation, acute on chronic Acute kidney injury Lactic acidosis, acute Possible element of congestive heart failure Acute, or Chronic, or Acute on Chronic? @ -[default] Uncomplicated (without systemic symptoms) or Complicated (systemic symptoms)? @ -[Uncomplicated Side effects of treatment? @ -[No] Exacerbation, Progression, or Severe Exacerbation? @ -[No] Poses a threat to life or bodily function? How? (Chest pain, [place], [place], pneumonia, PE, COPD, DKA, ARF, appy, cholecystitis, CVA, Diverticulitis, Homicidal, Suicidal, threat to staff... and all critical care pts) @ -[Yes - Lab Data Result diagrams: 06/19/22 10:09 06/20/22 08:01 Lab Results 06/17/22 06/17/22 06/17/22 Range/Units 17:16 17:16 17:16 WBC 13.0 H (3.8-10.6) k/uL RBC 4.63 (3.80-5.40) m/uL Hgb 14.2 (11.4-16.0) gm/dL Hct 43.5 (34.0-46.0) % MCV 93.9 (80.0-100.0) fL MCH 30.6 (25.0-35.0) pg MCHC 32.5 (31.0-37.0) g/dL RDW 16.8 H (11.5-15.5) % Plt Count 171 (150-450) k/uL MPV 7.6 Neutrophils % 84 % Lymphocytes % 8 % Monocytes % 6 % Eosinophils % 0 % Basophils % 0 % Neutrophils # 10.8 H (1.3-7.7) k/uL Lymphocytes # 1.0 (1.0-4.8) k/uL Monocytes # 0.8 (0-1.0) k/uL Eosinophils # 0.1 (0-0.7) k/uL Basophils # 0.0 (0-0.2) k/uL Anisocytosis Slight PT 10.6 (9.0-12.0) sec INR 1.0 (<1.2) APTT 26.4 (22.0-30.0) sec Sodium 133 L (137-145) mmol/L Potassium 4.4 (3.5-5.1) mmol/L Chloride 93 L (98-107) mmol/L Carbon Dioxide 25 (22-30) mmol/L Anion Gap 15 mmol/L BUN 21 H (7-17) mg/dL Creatinine 1.90 H (0.52-1.04) mg/dL Est GFR (CKD-EPI)AfAm 32 (>60 ml/min/1.73 sqM) Est GFR (CKD-EPI)NonAf 28 (>60 ml/min/1.73 sqM) Glucose 117 H (74-99) mg/dL Lactic Ac Sepsis Rflx Plasma Lactic Acid Stepan (0.7-2.0) mmol/L Calcium 8.2 L (8.4-10.2) mg/dL Total Bilirubin 0.5 (0.2-1.3) mg/dL AST 37 H (14-36) U/L ALT 16 (4-34) U/L Alkaline Phosphatase 83 (38-126) U/L Troponin I (0.000-0.034) ng/mL NT-Pro-B Natriuret Pep pg/mL Total Protein 7.3 (6.3-8.2) g/dL Albumin 4.3 (3.5-5.0) g/dL Influenza Type A (PCR) (Not Detectd) Influenza Type B (PCR) (Not Detectd) RSV (PCR) (Not Detectd) SARS-CoV-2 (PCR) (Not Detectd) 06/17/22 06/17/22 06/17/22 Range/Units 17:16 17:16 17:16 WBC (3.8-10.6) k/uL RBC (3.80-5.40) m/uL Hgb (11.4-16.0) gm/dL Hct (34.0-46.0) % MCV (80.0-100.0) fL MCH (25.0-35.0) pg MCHC (31.0-37.0) g/dL RDW (11.5-15.5) % Plt Count (150-450) k/uL MPV Neutrophils % % Lymphocytes % % Monocytes % % Eosinophils % % Basophils % % Neutrophils # (1.3-7.7) k/uL Lymphocytes # (1.0-4.8) k/uL Monocytes # (0-1.0) k/uL Eosinophils # (0-0.7) k/uL Basophils # (0-0.2) k/uL Anisocytosis PT (9.0-12.0) sec INR (<1.2) APTT (22.0-30.0) sec Sodium (137-145) mmol/L Potassium (3.5-5.1) mmol/L Chloride (98-107) mmol/L Carbon Dioxide (22-30) mmol/L Anion Gap mmol/L BUN (7-17) mg/dL Creatinine (0.52-1.04) mg/dL Est GFR (CKD-EPI)AfAm (>60 ml/min/1.73 sqM) Est GFR (CKD-EPI)NonAf (>60 ml/min/1.73 sqM) Glucose (74-99) mg/dL Lactic Ac Sepsis Rflx Plasma Lactic Acid Stepan 2.2 H* (0.7-2.0) mmol/L Calcium (8.4-10.2) mg/dL Total Bilirubin (0.2-1.3) mg/dL AST (14-36) U/L ALT (4-34) U/L Alkaline Phosphatase (38-126) U/L Troponin I 0.051 H* (0.000-0.034) ng/mL NT-Pro-B Natriuret Pep 1450 pg/mL Total Protein (6.3-8.2) g/dL Albumin (3.5-5.0) g/dL Influenza Type A (PCR) (Not Detectd) Influenza Type B (PCR) (Not Detectd) RSV (PCR) (Not Detectd) SARS-CoV-2 (PCR) (Not Detectd) 06/17/22 06/17/22 Range/Units 17:20 18:01 WBC (3.8-10.6) k/uL RBC (3.80-5.40) m/uL Hgb (11.4-16.0) gm/dL Hct (34.0-46.0) % MCV (80.0-100.0) fL MCH (25.0-35.0) pg MCHC (31.0-37.0) g/dL RDW (11.5-15.5) % Plt Count (150-450) k/uL MPV Neutrophils % % Lymphocytes % % Monocytes % % Eosinophils % % Basophils % % Neutrophils # (1.3-7.7) k/uL Lymphocytes # (1.0-4.8) k/uL Monocytes # (0-1.0) k/uL Eosinophils # (0-0.7) k/uL Basophils # (0-0.2) k/uL Anisocytosis PT (9.0-12.0) sec INR (<1.2) APTT (22.0-30.0) sec Sodium (137-145) mmol/L Potassium (3.5-5.1) mmol/L Chloride (98-107) mmol/L Carbon Dioxide (22-30) mmol/L Anion Gap mmol/L BUN (7-17) mg/dL Creatinine (0.52-1.04) mg/dL Est GFR (CKD-EPI)AfAm (>60 ml/min/1.73 sqM) Est GFR (CKD-EPI)NonAf (>60 ml/min/1.73 sqM) Glucose (74-99) mg/dL Lactic Ac Sepsis Rflx Y Plasma Lactic Acid Stepan (0.7-2.0) mmol/L Calcium (8.4-10.2) mg/dL Total Bilirubin (0.2-1.3) mg/dL AST (14-36) U/L ALT (4-34) U/L Alkaline Phosphatase (38-126) U/L Troponin I (0.000-0.034) ng/mL NT-Pro-B Natriuret Pep pg/mL Total Protein (6.3-8.2) g/dL Albumin (3.5-5.0) g/dL Influenza Type A (PCR) Not Detected (Not Detectd) Influenza Type B (PCR) Not Detected (Not Detectd) RSV (PCR) Not Detected (Not Detectd) SARS-CoV-2 (PCR) Not Detected (Not Detectd) - EKG Data -: EKG Interpreted by Mi EKG shows normal: sinus rhythm (89 bpm), axis (Normal), intervals, QRS complexes (Left anterior fascicular block.) Rate: normal Interpretation: other (Pulmonary disease pattern) Disposition Clinical Impression: COPD exacerbation, Acute kidney injury, Lactic acidosis Disposition: ADMITTED IP TO THIS HOSP Condition: Stable
[2022-06-17 17:39] LABS: Anisocytosis Slight; Basophils % (A) 0 %; Eosinophils # (A) 0.1 k/uL (0-0.7); Eosinophils % (A) 0 %; HCT 43.5 % (34.0-46.0); HGB 14.2 gm/dL (11.4-16.0); Lymphocytes % (A) 8 %; MCH 30.6 pg (25.0-35.0); MCHC 32.5 g/dL (31.0-37.0); MCV 93.9 fL (80.0-100.0); Mean Platelet Volume 7.6; Monocytes # (A) 0.8 k/uL (0-1.0); Monocytes % (A) 6 %; Neutrophils # (A) 10.8 k/uL (1.3-7.7); Neutrophils % (A) 84 %; Platelet Count 171 k/uL (150-450); RBC 4.63 m/uL (3.80-5.40); RDW 16.8 % (11.5-15.5)
--- NOTE | 2022-06-17 17:52 | XR ---
EXAMINATION: XR chest 2V: 06/17/2022 5:35 PM CLINICAL INDICATION: difficulty breathing TECHNIQUE: Departmental protocol COMPARISON: 04/12/2022 FINDINGS: The overlying soft tissues are prominent. There is a fine reticular pattern of increased attenuation superimposed over the pulmonary vasculatur e of the lower lung zones bilaterally, a subtle finding which can correlate with a clinical diagnosis of minimal interstitial phase pulmonary edema. Otherwise, the lungs are unremarkable. The pleural spaces are negative. EKG leads. The cardiac silhouette is not enlarged. The remainder of the mediastinal silhouette is unr emarkable. The skeletal structures and soft tissues are negative for acute findings. IMPRESSION: Subtle bilateral pulmonary findings.
[2022-06-17 17:53] LABS: Albumin 4.3 g/dL (3.5-5.0); Calcium 8.2 mg/dL (8.4-10.2); Potassium 4.4 mmol/L (3.5-5.1); Total Bilirubin 0.5 mg/dL (0.2-1.3); Total Protein 7.3 g/dL (6.3-8.2)
[2022-06-17 17:55] LABS: Partial Thromboplastin Time 26.4 sec (22.0-30.0); Prothrombin Time 10.6 sec (9.0-12.0)
[2022-06-17] MEDS ORDERED: ACETAMINOPHEN TAB 325 MG TAB PO PRN (18:36)
[2022-06-17] MEDS ORDERED: NALOXONE 0.4 MG/ML 1 ML VIAL IVP PRN (18:36)
[2022-06-17] MEDS ORDERED: predniSONE 20 MG TAB PO STA (18:42)
[2022-06-17] MEDS ORDERED: IPRATROPIUM-ALBUTEROL 3 ML NEB INHALATION SCH (20:00)
[2022-06-17] MEDS ORDERED: FORMOTEROL FUMARATE 20 MCG/2 ML NEBU INHALATION SCH (20:00)
[2022-06-17] MEDS ORDERED: SYMBICORT 80-4.5 MCG INHALER INHALATION SCH (20:00)
[2022-06-17] MEDS ORDERED: SODIUM CHLORIDE 0.9% 500 ML 500 ML IV STA (21:19)
[2022-06-17] MEDS ORDERED: AZITHROMYCIN 500 MG in SODIUM CHLORIDE 0.9% 250 ML IVPB STA (21:20)
[2022-06-17] MEDS: GABAPENTIN 300 MG CAP PO SCH (22:34)
[2022-06-17] MEDS: LACOSAMIDE 50 MG TABLET PO SCH (22:35)
[2022-06-17] MEDS: ESCITALOPRAM 20 MG TAB PO SCH (22:35)
[2022-06-17] MEDS: cloNIDine HCL 0.2 MG TAB PO SCH (22:51)
[2022-06-17] MEDS: METOPROLOL TARTRATE 25 MG TAB PO SCH (22:51)
[2022-06-17] MEDS: DOXEPIN 10 MG CAP PO SCH (22:51)
[2022-06-18] MEDS: levETIRAcetam 500 MG TAB PO SCH ×4 (00:53→20:33)
[2022-06-18] MEDS: LEVOTHYROXINE 100 MCG TAB PO SCH (05:59)
[2022-06-18] MEDS: AZITHROMYCIN 500 MG TAB PO SCH (08:00)
[2022-06-18] MEDS: cloNIDine HCL 0.2 MG TAB PO SCH ×2 (08:01→20:33)
[2022-06-18] MEDS: METOPROLOL TARTRATE 25 MG TAB PO SCH ×2 (08:01→20:33)
[2022-06-18] MEDS: GABAPENTIN 300 MG CAP PO SCH ×3 (08:01→20:33)
[2022-06-18] MEDS: LACOSAMIDE 50 MG TABLET PO SCH ×2 (08:02→20:33)
[2022-06-18] MEDS: NICOTINE 7MG/24HR PATCH TRANSDERM SCH (08:02)
[2022-06-18] MEDS: ESCITALOPRAM 20 MG TAB PO SCH ×2 (08:02→20:33)
[2022-06-18] MEDS: IPRATROPIUM 0.5 MG/2.5 ML NEBU INHALATION SCH ×4 (08:25→20:30)
[2022-06-18] MEDS: ALBUTEROL NEBULIZED 2.5 MG/3 ML INHALATION SCH ×4 (08:25→20:30)
[2022-06-18] MEDS: SYMBICORT 160-4.5 MCG INHALER INHALATION SCH ×2 (08:25→20:30)
[2022-06-18] MEDS ORDERED: predniSONE 20 MG TAB PO SCH (09:00)
[2022-06-18] MEDS: NALOXONE HCL SUBLINGUAL SCH (10:27)
[2022-06-18] MEDS: BUPRENORPHINE HCL SUBLINGUAL SCH (10:27)
[2022-06-18] MEDS ORDERED: NITROGLYCERIN SL TABS 0.4 MG TAB SUBLINGUAL PRN (12:53)
--- NOTE | 2022-06-18 13:02 | P.HPIM ---
History of Present Illness H&P Date: 06/18/22 Chief Complaint: Hypoxia shortness of breath. This is 59-year-old white female with known history of opiate dependence with history of COPD. The patient was seen in my office yesterday with oxygen saturation on 2 L and 88%. The patient typically does not need oxygen supple mentation. She feel Dusky slightly hypotension she was admitted for exacerbation of COPD. Review of Systems Constitutional: Denies chills, Denies fever Eyes: denies blurred vision, denies pain Ears, nose, mouth and throat: Denies headache, Denies sore throat Cardiovascular: Denies chest pain, Denies shortness of breath Respiratory: Reports as per HPI, Denies cough Musculoskeletal: Denies myalgias Past Medical History Past Medical History: Asthma, Coronary Artery Disease (CAD), Chest Pain / Angina, COPD, Seizure Disorder, Thyroid Disorder Additional Past Medical History / Comment(s): NEUROPATHY TO BILAT HANDS AND LEGS AND RT FOOT. Left carotid blockage History of Any Multi-Drug Resistant Organisms: None Reported Past Surgical History: Heart Catheterization, Heart Catheterization With Stent, Hysterectomy, Orthopedic Surgery Additional Past Surgical History / Comment(s): RT ROTATOR CUFF REPAIR, CYSTS REMOVED FROM UNDER ARMS AND HANDS, 7 stents, 07/18/18 left subclavian stent. 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 Date of Last Stent Placement:: Nov 2017 Past Psychological History: Depression Smoking Status: Current every day smoker Past Alcohol Use History: None Reported Additional Past Alcohol Use History / Comment(s): SMOKES 3-4 cig/day currently. Started smoking at age 11 Past Drug Use History: None Reported - Past Family History Mother Family Medical History: Cancer Sister(s) Family Medical History: Cancer Medications and Allergies Home Medications Medication Instructions Recorded Confirmed Type Escitalopram [Lexapro] 20 mg PO BID 11/28/17 06/17/22 History Levothyroxine Sodium 200 mcg PO DAILY 08/20/20 06/17/22 History Nitroglycerin Sl Tabs [Nitrostat] 0.4 mg SL Q5M PRN 08/20/20 06/17/22 History Gabapentin 600 mg PO TID 06/18/21 06/17/22 History cloNIDine HCL 0.2 mg PO BID 08/06/21 06/17/22 History Doxepin [SINEquan] 10 mg PO HS 02/25/22 06/17/22 History Fluticasone/Umeclidin/Vilanter 1 puff INHALATION RT-DAILY 02/25/22 06/17/22 History [Trelegy Ellipta 200-62.5-25] Metoprolol Tartrate [Lopressor] 25 mg PO BID #60 tab 02/26/22 06/17/22 Rx Ibuprofen [Motrin Ib] 200 mg PO BID PRN 04/11/22 06/17/22 History Ipratropium-Albuterol Nebulize 3 mg INHALATION RT-BID 04/11/22 06/17/22 History [Duoneb 0.5 mg-3 mg/3 ml Soln] Buprenorphine HCl/Naloxone HCl 1 tab SUBLINGUAL DAILY 06/02/22 06/17/22 History [Zubsolv 2.9-0.71 mg Tablet Sl] Lacosamide [Vimpat] 50 mg PO BID #60 tab 06/04/22 06/17/22 Rx levETIRAcetam [Keppra] 1,000 mg PO TID #180 tab 06/04/22 06/17/22 Rx Allergies Allergy/AdvReac Type Severity Reaction Status Date / Time No Known Allergies Allergy Verified 06/17/22 19:05 Physical Exam Vitals: Vital Signs Temp Pulse Pulse Pulse Resp BP BP 06/18/22 12:29 84 06/18/22 12:12 78 06/18/22 12:02 97.4 F L 63 19 95/57 06/18/22 11:00 97.3 F L 65 20 85/47 06/18/22 09:22 64 18 06/18/22 08:40 78 06/18/22 08:37 65 18 106/60 06/18/22 08:28 80 06/18/22 08:00 65 18 06/18/22 07:42 97.6 F 60 17 108/54 06/18/22 03:49 97.5 F L 76 24 117/56 06/18/22 03:47 97.5 F L 76 22 117/56 06/18/22 02:09 65 18 110/72 06/18/22 01:25 64 18 99/59 06/18/22 00:56 76 18 118/63 06/18/22 00:15 78 18 121/65 06/17/22 22:49 84 18 55/41 06/17/22 20:19 89 06/17/22 20:07 86 06/17/22 19:59 86 18 95/47 06/17/22 19:43 84 18 76/39 06/17/22 18:32 64 18 74/52 06/17/22 17:27 82 18 78/48 06/17/22 16:55 98.7 F 64 18 54/41 Pulse Ox 06/18/22 12:29 06/18/22 12:12 06/18/22 12:02 91 L 06/18/22 11:00 92 L 06/18/22 09:22 06/18/22 08:40 06/18/22 08:37 94 L 06/18/22 08:28 89 L 06/18/22 08:00 06/18/22 07:42 92 L 06/18/22 03:49 90 L 06/18/22 03:47 90 L 06/18/22 02:09 92 L 06/18/22 01:25 94 L 06/18/22 00:56 88 L 06/18/22 00:15 92 L 06/17/22 22:49 85 L 06/17/22 20:19 06/17/22 20:07 06/17/22 19:59 92 L 06/17/22 19:43 94 L 06/17/22 18:32 89 L 06/17/22 17:27 91 L 06/17/22 16:55 75 L Intake and Output 06/17/22 06/18/22 06/18/22 22:59 06:59 14:59 Other: Voiding Method Toilet Diaper # Voids 0 Weight 67.132 kg 72.5 kg Results CBC & Chem 7: 06/17/22 17:16 06/17/22 17:16 Labs: Abnormal Lab Results - Last 24 Hours (Table) 06/17/22 06/17/22 06/17/22 Range/Units 17:16 17:16 17:16 WBC 13.0 H (3.8-10.6) k/uL RDW 16.8 H (11.5-15.5) % Neutrophils # 10.8 H (1.3-7.7) k/uL Sodium 133 L (137-145) mmol/L Chloride 93 L (98-107) mmol/L BUN 21 H (7-17) mg/dL Creatinine 1.90 H (0.52-1.04) mg/dL Glucose 117 H (74-99) mg/dL Plasma Lactic Acid Stepan 2.2 H* (0.7-2.0) mmol/L Calcium 8.2 L (8.4-10.2) mg/dL AST 37 H (14-36) U/L Troponin I (0.000-0.034) ng/mL 06/17/22 06/17/22 06/17/22 Range/Units 17:16 20:48 22:51 WBC (3.8-10.6) k/uL RDW (11.5-15.5) % Neutrophils # (1.3-7.7) k/uL Sodium (137-145) mmol/L Chloride (98-107) mmol/L BUN (7-17) mg/dL Creatinine (0.52-1.04) mg/dL Glucose (74-99) mg/dL Plasma Lactic Acid Stepan 2.8 H* (0.7-2.0) mmol/L Calcium (8.4-10.2) mg/dL AST (14-36) U/L Troponin I 0.051 H* 0.040 H* (0.000-0.034) ng/mL Thrombosis Risk Factor Assmnt - Choose All That Apply Any of the Below Risk Factors Present?: Yes Each Factor Represents 1 point: Abnormal pulmonary function (COPD), Sepsis (< 1month) Other Risk Factors: Yes Each Risk Factor Represents 2 Points: Age 61-74 years Thrombosis Risk Factor Assessment Total Risk Factor Score: 4 Thrombosis Risk Factor Assessment Level: Moderate Risk Assessment and Plan (1) Acute respiratory failure with hypoxia and hypercapnia Current Visit: No Status: Acute Code(s): J96.01 - ACUTE RESPIRATORY FAILURE WITH HYPOXIA; J96.02 - ACUTE RESPIRATORY FAILURE WITH HYPERCAPNIA SNOMED Code(s): 727135946 (2) COPD exacerbation Current Visit: No Status: Acute Code(s): J44.1 - CHRONIC OBSTRUCTIVE PULMONARY DISEASE W (ACUTE) EXACERBATION SNOMED Code(s): 978478561 (3) Hypotension Current Visit: No Status: Acute Code(s): I95.9 - HYPOTENSION, UNSPECIFIED SNOMED Code(s): 71150734 (4) Opiate dependence Current Visit: No Status: Acute Code(s): F11.20 - OPIOID DEPENDENCE, UNCOMPLICATED SNOMED Code(s): 73348434 (5) Tobacco abuse Current Visit: No Status: Acute Code(s): Z72.0 - TOBACCO USE SNOMED Code(s): 252564197 Plan: The patient will be stabilized Solu-Medrol. Pulmonology consulted. Check CBC and CMP in a.m. Reconcile medications. She is a full code. Anticipate discharge in next 48 hours. Time with Patient: Greater than 30
[2022-06-18] MEDS: methylPREDNISolone SOD SUCCI 125 MG/2 ML VIAL IV SCH ×3 (13:07→23:36)
--- NOTE | 2022-06-18 14:17 | P.CNPUL ---
History of Present Illness Consult date: 06/18/22 Reason for consult: dyspnea, COPD History of present illness: This is a 59-year-old female patient with known history of COPD was coming in with worsening shortness of breath. The patient is known to us from previous hospital admissions. She has been COPD and the patient has limited on Trelegy Ellipta on outpatient basis. She was in the hospital approximately 10 days ago for a breakthrough seizure as the patient is known to have seizure disorder. She is a chronic smoker. She presented emergency department yesterday because of worsening shortness of breath. She thinks that she could have picked up a cold from the hospital during her earlier hospitalization. She has increased dyspnea, chest tightness and wheezing and she is actively bronchospastic and wheezy. She was seen by her primary care physician who advised her coming into the hospital for further treatment. She is currently on oxygen at 5 L per minute nasal cannula. She has home O2 yet she doesn't use on a regular basis. She denies having any angina or palpitation. She denies having any chest pain. The chest x-ray that was done in the ED showed some fine reticular pattern peripherally in the lung bases. There was evidence of emphysema. Lungs were essentially unremarkable otherwise. WBC count is at 15 hemoglobin was 14.2 and a platelet count is 84, BUN is 21 with a creatinine of 1.9 consistent with an acute kidney injury. Sodium is at 133 and a potassium level is at 4.4. Lactic acid level was slightly elevated at 2.8 dropped down to 0.7. Total bilirubin was 1.9. Troponin was 0.04. ProBNP level was 1450. Free T4 is 1.57. Her Covid 19 testing and influenza screen was negative. Noted the patient was infected with Covid 19 back in October 2021 and she has recovered. Review of Systems Constitutional: Reports as per HPI Eyes: denies as per HPI, denies blurred vision, denies bulging eye, denies decreased vision, denies diplopia, denies discharge, denies dry eye, denies irritation, denies itching, denies pain, denies photophobia, denies loss of peripheral vision, denies loss of vision, denies tunnel vision/blind spots Ears: deny: decreased hearing, ear discharge, earache, tinnitus Ears, nose, mouth and throat: Reports as per HPI Breasts: absent: as per HPI, change in shape, gynecomastia, masses, nipple discharge, pain, skin changes, swelling Cardiovascular: Reports decreased exercise tolerance Respiratory: Reports cough, Reports dyspnea, Reports home oxygen, Reports wheezing Gastrointestinal: Reports as per HPI Menstruation: Reports as per HPI Musculoskeletal: Reports as per HPI Musculoskeletal: absent: ankle pain, ankle stiffness, ankle swelling Integumentary: Reports as per HPI Neurological: Reports as per HPI Psychiatric: Reports as per HPI Endocrine: Reports as per HPI Past Medical History Past Medical History: Asthma, Coronary Artery Disease (CAD), Chest Pain / Angina, COPD, Seizure Disorder, Thyroid Disorder Additional Past Medical History / Comment(s): NEUROPATHY TO BILAT HANDS AND LEGS AND RT FOOT. Left carotid blockage History of Any Multi-Drug Resistant Organisms: None Reported Past Surgical History: Heart Catheterization, Heart Catheterization With Stent, Hysterectomy, Orthopedic Surgery Additional Past Surgical History / Comment(s): RT ROTATOR CUFF REPAIR, CYSTS REMOVED FROM UNDER ARMS AND HANDS, 7 stents, 07/18/18 left subclavian stent. 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 Date of Last Stent Placement:: Nov 2017 Past Psychological History: Depression Smoking Status: Current every day smoker Past Alcohol Use History: None Reported Additional Past Alcohol Use History / Comment(s): SMOKES 3-4 cig/day currently. Started smoking at age 11 Past Drug Use History: None Reported - Past Family History Mother Family Medical History: Cancer Sister(s) Family Medical History: Cancer Medications and Allergies Home Medications Medication Instructions Recorded Confirmed Type Escitalopram [Lexapro] 20 mg PO BID 11/28/17 06/17/22 History Levothyroxine Sodium 200 mcg PO DAILY 08/20/20 06/17/22 History Nitroglycerin Sl Tabs [Nitrostat] 0.4 mg SL Q5M PRN 08/20/20 06/17/22 History Gabapentin 600 mg PO TID 06/18/21 06/17/22 History cloNIDine HCL 0.2 mg PO BID 08/06/21 06/17/22 History Doxepin [SINEquan] 10 mg PO HS 02/25/22 06/17/22 History Fluticasone/Umeclidin/Vilanter 1 puff INHALATION RT-DAILY 02/25/22 06/17/22 History [Trelegy Ellipta 200-62.5-25] Metoprolol Tartrate [Lopressor] 25 mg PO BID #60 tab 02/26/22 06/17/22 Rx Ibuprofen [Motrin Ib] 200 mg PO BID PRN 04/11/22 06/17/22 History Ipratropium-Albuterol Nebulize 3 mg INHALATION RT-BID 04/11/22 06/17/22 History [Duoneb 0.5 mg-3 mg/3 ml Soln] Buprenorphine HCl/Naloxone HCl 1 tab SUBLINGUAL DAILY 06/02/22 06/17/22 History [Zubsolv 2.9-0.71 mg Tablet Sl] Lacosamide [Vimpat] 50 mg PO BID #60 tab 06/04/22 06/17/22 Rx levETIRAcetam [Keppra] 1,000 mg PO TID #180 tab 06/04/22 06/17/22 Rx Allergies Allergy/AdvReac Type Severity Reaction Status Date / Time No Known Allergies Allergy Verified 06/17/22 19:05 Physical Exam Vitals: Vital Signs Temp Pulse Pulse Pulse Resp BP BP 06/18/22 12:12 78 06/18/22 12:02 97.4 F L 63 19 95/57 06/18/22 11:00 97.3 F L 65 20 85/47 06/18/22 09:22 64 18 06/18/22 08:40 78 06/18/22 08:37 65 18 106/60 06/18/22 08:28 80 06/18/22 08:00 65 18 06/18/22 07:42 97.6 F 60 17 108/54 06/18/22 03:49 97.5 F L 76 24 117/56 06/18/22 03:47 97.5 F L 76 22 117/56 06/18/22 02:09 65 18 110/72 06/18/22 01:25 64 18 99/59 06/18/22 00:56 76 18 118/63 06/18/22 00:15 78 18 121/65 06/17/22 22:49 84 18 55/41 06/17/22 20:19 89 06/17/22 20:07 86 06/17/22 19:59 86 18 95/47 06/17/22 19:43 84 18 76/39 06/17/22 18:32 64 18 74/52 06/17/22 17:27 82 18 78/48 06/17/22 16:55 98.7 F 64 18 54/41 Pulse Ox 06/18/22 12:12 06/18/22 12:02 91 L 06/18/22 11:00 92 L 06/18/22 09:22 06/18/22 08:40 06/18/22 08:37 94 L 06/18/22 08:28 89 L 06/18/22 08:00 06/18/22 07:42 92 L 06/18/22 03:49 90 L 06/18/22 03:47 90 L 06/18/22 02:09 92 L 06/18/22 01:25 94 L 06/18/22 00:56 88 L 06/18/22 00:15 92 L 06/17/22 22:49 85 L 06/17/22 20:19 06/17/22 20:07 06/17/22 19:59 92 L 06/17/22 19:43 94 L 06/17/22 18:32 89 L 06/17/22 17:27 91 L 06/17/22 16:55 75 L Intake and Output 06/17/22 06/18/22 06/18/22 22:59 06:59 14:59 Other: Voiding Method Toilet Diaper # Voids 0 Weight 67.132 kg 72.5 kg Alert, oriented and comfortable. Oriented 3. Saturations are 93% on 5 L of oxygen by nasal cannula, breathing is nonlabored and the patient is not using accessory muscles of breathing. HEENT examination is grossly unremarkable. Neck supple. Full range of motion. No adenopathy thyromegaly or neck vein distention. Cardiovascular examination reveals regular rhythm rate. S1-S2 normal. No S3 or S4. No discernible murmur noted. Heart sounds are very distant. Lungs reveal coarse inspiratory and expiratory rhonchi. There are some expiratory wheezes. Breath sounds are equal bilaterally but diminished throughout. No crackles appreciated. Breath sounds are minimally improved. Abdomen soft bowel sounds are heard. No masses or tenderness. Extremities are intact. No cyanosis clubbing or edema. Skin is without rash or lesion. Neurologic examination is brief but nonfocal. Results - Laboratory Findings CBC and BMP: 06/17/22 17:16 06/17/22 17:16 PT/INR, D-dimer PT 10.6 sec (9.0-12.0) 06/17/22 17:16 INR 1.0 (<1.2) 06/17/22 17:16 Abnormal lab findings: Abnormal Labs 06/17/22 06/17/22 06/17/22 17:16 17:16 17:16 WBC 13.0 H RDW 16.8 H Neutrophils # 10.8 H Sodium 133 L Chloride 93 L BUN 21 H Creatinine 1.90 H Glucose 117 H Plasma Lactic Acid Stepan 2.2 H* Calcium 8.2 L AST 37 H Troponin I 06/17/22 06/17/22 06/17/22 17:16 20:48 22:51 WBC RDW Neutrophils # Sodium Chloride BUN Creatinine Glucose Plasma Lactic Acid Stepan 2.8 H* Calcium AST Troponin I 0.051 H* 0.040 H* - Diagnostic Findings Chest x-ray: image reviewed Assessment and Plan Plan: Acute exacerbation of COPD, no clear indication for an underlying pneumonia. Possibility of an underlying bronchitis cannot be ruled out. The viruses including influenza, Covid 19 and RSV were all negative. She is a chronic smoker which could be another trigger for recurrent exacerbation of COPD. Acute on chronic hypoxic respiratory failure currently on oxygen at 5 L/m nasal cannula Advanced COPD maintain on Trelegy Ellipta on outpatient basis Nicotine addiction. CAD with previous stent placement. The patient is a limited troponin leak s econdary to above Acute kidney injury, creatinine is at 1.9. Mild lactic acidosis, improving Mild leukocytosis Previous history of Covid 19 infection from October 2021 Obesity. History of seizure disorder, recent hospitalization for a breakthrough seizure, currently on Keppra History of hypothyroidism. History of hyperlipidemia. Left carotid artery stenosis. Plan Titrate oxygen flow to maintain a saturation above 90% Continue albuterol neb treatments [id number] Symbicort 160/4.52 puffs twice a day IV Solu-Medrol 60 mg every 6 hours Zithromax as an empiric antibiotic coverage 500 mg by mouth daily Resume all medication including a combination of Vimpat for Seizures Nicotine patch We'll continue to follow
[2022-06-18 16:34] LABS: Appearance,Urine Clear (Clear); Bilirubin,Urine Negative (Negative); Blood,Urine Negative (Negative); Color,Urine Yellow; Glucose,Urine (UA) Negative (Negative); Ketones,Urine Negative (Negative); Leukocyte Esterase,Urine Negative (Negative); Nitrite,Urine Negative (Negative); PH, Urine 5.5 (5.0-8.0); Protein,Urine Trace (Negative); Urobilinogen,Urine <2.0 mg/dL (<2.0)
[2022-06-18 16:55] LABS: Glucose,Whole Blood 177 mg/dL (70-110)
[2022-06-18] MEDS: INSULIN ASPART (NovoLOG) 100 UNIT/ML VIAL SQ SCH ×2 (17:35→20:32)
[2022-06-18 20:24] LABS: Glucose,Whole Blood 227 mg/dL (70-110)
[2022-06-18] MEDS: AZITHROMYCIN 500 MG in SODIUM CHLORIDE 0.9% 250 ML IVPB SCH (20:33)
[2022-06-18] MEDS: DOXEPIN 10 MG CAP PO SCH (20:34)
[2022-06-19 06:01] LABS: Glucose,Whole Blood 137 mg/dL (70-110)
[2022-06-19] MEDS: INSULIN ASPART (NovoLOG) 100 UNIT/ML VIAL SQ SCH ×4 (06:04→21:18)
[2022-06-19] MEDS: LEVOTHYROXINE 100 MCG TAB PO SCH (06:16)
[2022-06-19] MEDS: methylPREDNISolone SOD SUCCI 125 MG/2 ML VIAL IV SCH ×4 (06:16→23:48)
[2022-06-19] MEDS: NICOTINE 7MG/24HR PATCH TRANSDERM SCH (08:22)
[2022-06-19] MEDS: guaiFENesin-DM 100-10MG/5ML 10 ML CUP PO PRN (08:22)
[2022-06-19] MEDS: ESCITALOPRAM 20 MG TAB PO SCH ×2 (08:23→21:22)
[2022-06-19] MEDS: GABAPENTIN 300 MG CAP PO SCH ×3 (08:23→21:21)
[2022-06-19] MEDS: NALOXONE HCL SUBLINGUAL SCH (08:23)
[2022-06-19] MEDS: LACOSAMIDE 50 MG TABLET PO SCH ×2 (08:23→21:21)
[2022-06-19] MEDS: AZITHROMYCIN 500 MG TAB PO SCH (08:23)
[2022-06-19] MEDS: cloNIDine HCL 0.2 MG TAB PO SCH ×2 (08:23→21:21)
[2022-06-19] MEDS: levETIRAcetam 500 MG TAB PO SCH ×3 (08:23→21:22)
[2022-06-19] MEDS: BUPRENORPHINE HCL SUBLINGUAL SCH (08:23)
[2022-06-19] MEDS: METOPROLOL TARTRATE 25 MG TAB PO SCH ×2 (08:23→21:21)
--- NOTE | 2022-06-19 09:18 | P.PN ---
Subjective Progress Note Date: 06/19/22 This is a 59-year-old female patient with known history of COPD was coming in with worsening shortness of breath. The patient is known to us from previous hospital admissions. She has been COPD and the patient has limited on Trelegy Ellipta on outpatient basis. She was in the hospital approximately 10 days ago for a breakthrough seizure as the patient is known to have seizure disorder. She is a chronic smoker. She presented emergency department yesterday because of worsening shortness of breath. She thinks that she could have picked up a cold from the hospital during her earlier hospitalization. She has increased dyspnea, chest tightness and wheezing and she is actively bronchospastic and wheezy. She was seen by her primary care physician who advised her coming into the hospital for further treatment. She is currently on oxygen at 5 L per minute nasal cannula. She has home O2 yet she doesn't use on a regular basis. She denies having any angina or palpitation. She denies having any chest pain. The chest x-ray that was done in the ED showed some fine reticular pattern peripherally in the lung bases. There was evidence of emphysema. Lungs were essentially unremarkable otherwise. WBC count is at 15 hemoglobin was 14.2 and a platelet count is 84, BUN is 21 with a creatinine of 1.9 consistent with an acute kidney injury. Sodium is at 133 and a potassium level is at 4.4. Lactic acid level was slightly elevated at 2.8 dropped down to 0.7. Total bilirubin was 1.9. Troponin was 0.04. ProBNP level was 1450. Free T4 is 1.57. Her Covid 19 testing and influenza screen was negative. Noted the patient was infected with Covid 19 back in October 2021 and she has recovered. 06/19/2022, the patient is feeling better, she is less bronchospastic and wheezing on today's evaluation. No new complaints. She remains on bronchodilators and steroids patient remains on empiric antibiotic coverage. Follow renal function still pending from this morning is still pending as the patient's creatinine from yesterday was at 1.9. Otherwise, the night was uneventful. Objective - Vital Signs Vital signs: Vital Signs Temp 97.5 F L 06/19/22 08:00 Pulse 93 06/19/22 08:00 Resp 20 06/19/22 08:00 BP 110/67 06/19/22 08:00 Pulse Ox 93 L 06/19/22 08:00 FiO2 Intake & Output 06/18/22 06/19/22 06/19/22 18:59 06:59 18:59 Intake Total 540 Output Total 600 850 Balance -60 -850 Intake: Oral 540 Output: Urine 600 850 Other: Voiding Method Diaper Diaper External Catheter External Catheter # Voids 1 2 - Exam Alert, oriented and comfortable. Oriented 3. Saturations are 93% on 5 L of oxygen by nasal cannula, breathing is nonlabored and the patient is not using accessory muscles of breathing. HEENT examination is grossly unremarkable. Neck supple. Full range of motion. No adenopathy thyromegaly or neck vein distention. Cardiovascular examination reveals regular rhythm rate. S1-S2 normal. No S3 or S4. No discernible murmur noted. Heart sounds are very distant. Lungs reveal coarse inspiratory and expiratory rhonchi. There are some expiratory wheezes. Breath sounds are equal bilaterally but diminished throughout. No crackles appreciated. Breath sounds are minimally improved. Abdomen soft bowel sounds are heard. No masses or tenderness. Extremities are intact. No cyanosis clubbing or edema. Skin is without rash or lesion. Neurologic examination is brief but nonfocal. - Labs CBC & Chem 7: 06/17/22 17:16 06/17/22 17:16 Labs: Abnormal Lab Results - Last 24 Hours (Table) 06/18/22 06/18/22 06/18/22 Range/Units 16:25 16:48 20:22 POC Glucose (mg/dL) 177 H 227 H (70-110) mg/dL Urine Protein Trace H (Negative) 06/19/22 Range/Units 06:00 POC Glucose (mg/dL) 137 H (70-110) mg/dL Urine Protein (Negative) Assessment and Plan Plan: Acute exacerbation of COPD, no clear indication for an underlying pneumonia. Possibility of an underlying bronchitis cannot be ruled out. The viruses including influenza, Covid 19 and RSV were all negative. She is a chronic smoker which could be another trigger for recurrent exacerbation of COPD. Acute on chronic hypoxic respiratory failure currently on oxygen at 5 L/m nasal cannula Advanced COPD maintain on Trelegy Ellipta on outpatient basis Nicotine addiction. CAD with previous stent placement. The patient is a limited troponin leak secondary to above Acute kidney injury, creatinine is at 1.9. Mild lactic acidosis, improving Mild leukocytosis Previous history of Covid 19 infection from October 2021 Obesity. History of seizure disorder, recent hospitalization for a breakthrough seizure, currently on Keppra History of hypothyroidism. History of hyperlipidemia. Left carotid artery stenosis. Plan Clinically improving Lesh short of breath on today's evaluation Awaiting labs from today We'll follow-up creatinine Titrate oxygen flow to maintain a saturation above 90% Continue albuterol neb treatments [id number] Symbicort 160/4.52 puffs twice a day IV Solu-Medrol 60 mg every 6 hours Zithromax as an empiric antibiotic coverage 500 mg by mouth daily Resume all medication including a combination of Vimpat for Seizures Nicotine patch We'll continue to follow
[2022-06-19] MEDS: ALBUTEROL NEBULIZED 2.5 MG/3 ML INHALATION SCH ×4 (09:49→20:10)
[2022-06-19] MEDS: IPRATROPIUM 0.5 MG/2.5 ML NEBU INHALATION SCH ×4 (09:49→20:10)
[2022-06-19] MEDS: SYMBICORT 160-4.5 MCG INHALER INHALATION SCH ×2 (09:49→20:10)
[2022-06-19 10:26] LABS: Anisocytosis Slight; HCT 41.4 % (34.0-46.0); HGB 13.4 gm/dL (11.4-16.0); MCH 30.7 pg (25.0-35.0); MCHC 32.5 g/dL (31.0-37.0); MCV 94.4 fL (80.0-100.0); Mean Platelet Volume 8.6; Platelet Count 170 k/uL (150-450); RBC 4.38 m/uL (3.80-5.40); WBC 15.6 k/uL (3.8-10.6)
[2022-06-19 10:44] LABS: African American GFR (CKD) >90 (>60 ml/min/1.73 sqM); Anion Gap 10 mmol/L; Blood Urea Nitrogen 18 mg/dL (7-17); Calcium 7.5 mg/dL (8.4-10.2); Carbon Dioxide 18 mmol/L (22-30); Chloride 109 mmol/L (98-107); Glucose 156 mg/dL (74-99); Non-African American GFR(CKD) 80 (>60 ml/min/1.73 sqM); Potassium 4.2 mmol/L (3.5-5.1); Sodium 137 mmol/L (137-145)
[2022-06-19 11:55] LABS: Glucose,Whole Blood 119 mg/dL (70-110)
[2022-06-19 16:14] LABS: Appearance,Urine Clear (Clear); Bilirubin,Urine Negative (Negative); Blood,Urine Negative (Negative); Color,Urine Light Yellow; Glucose,Urine (UA) Negative (Negative); Ketones,Urine Negative (Negative); Leukocyte Esterase,Urine Negative (Negative); Nitrite,Urine Negative (Negative); Protein,Urine Trace (Negative); Urobilinogen,Urine <2.0 mg/dL (<2.0)
[2022-06-19 16:45] LABS: Glucose,Whole Blood 135 mg/dL (70-110)
[2022-06-19 20:13] LABS: Glucose,Whole Blood 137 mg/dL (70-110)
[2022-06-19] MEDS: DOXEPIN 10 MG CAP PO SCH (21:21)
[2022-06-19] MEDS: AZITHROMYCIN 500 MG in SODIUM CHLORIDE 0.9% 250 ML IVPB SCH (21:26)
--- NOTE | 2022-06-19 21:27 | P.PN ---
Subjective This is 59-year-old white female with known history of opiate dependence with history of COPD. The patient was seen in my office yesterday with oxygen saturation on 2 L and 88%. The patient typically does not need oxygen supplementation. She feel Dusky slightly hypotension she was admitted for exacerbation of COPD. 06/19/2022 Patient dyspnea is improving, she is currently on 5 L oxygen which is her home doses. She still have some scattered wheezing Patient is hemodynamically stable Lipid creatinine his back to normal. Ejection fraction on 04/13/2022 showing EF of 55-60% Patient currently on IV Solu-Medrol 60 mg and Zithromax. And subcutaneous heparin and Pepcid Objective - Vital Signs Vital signs: Vital Signs Temp 97.5 F L 06/19/22 08:00 Pulse 93 06/19/22 08:00 Resp 20 06/19/22 08:00 BP 110/67 06/19/22 08:00 Pulse Ox 93 L 06/19/22 08:00 FiO2 Intake & Output 06/18/22 06/19/22 06/19/22 18:59 06:59 18:59 Intake Total 540 Output Total 600 850 Balance -60 -850 Intake: Oral 540 Output: Urine 600 850 Other: Voiding Method Diaper Diaper Diaper External Catheter External Catheter External Catheter # Voids 1 2 - Exam GENERAL: The patient is alert and oriented x3, not in any acute distress. Well developed, well nourished. HEENT: Pupils are round and equally reacting to light. EOMI. No scleral icterus. No conjunctival pallor. Normocephalic, atraumatic. No pharyngeal erythema. No thyromegaly. CARDIOVASCULAR: S1 and S2 present. No murmurs, rubs, or gallops. PULMONARY: Chest is clear to auscultation, bilateral expiratory wheezing . ABDOMEN: Soft, nontender, nondistended, normoactive bowel sounds. No palpable organomegaly. MUSCULOSKELETAL: No joint swelling or deformity. EXTREMITIES: No cyanosis, clubbing, or pedal edema. NEUROLOGICAL: Gross neurological examination did not reveal any focal deficits. SKIN: No rashes. no petechiae. - Labs CBC & Chem 7: 06/19/22 10:09 06/19/22 10:09 Labs: Abnormal Lab Results - Last 24 Hours (Table) 06/18/22 06/18/22 06/18/22 Range/Units 16:25 16:48 20:22 WBC (3.8-10.6) k/uL RDW (11.5-15.5) % Chloride (98-107) mmol/L Carbon Dioxide (22-30) mmol/L BUN (7-17) mg/dL Glucose (74-99) mg/dL POC Glucose (mg/dL) 177 H 227 H (70-110) mg/dL Calcium (8.4-10.2) mg/dL Urine Protein Trace H (Negative) 06/19/22 06/19/22 06/19/22 Range/Units 06:00 10:09 10:09 WBC 15.6 H (3.8-10.6) k/uL RDW 17.0 H (11.5-15.5) % Chloride 109 H (98-107) mmol/L Carbon Dioxide 18 L (22-30) mmol/L BUN 18 H (7-17) mg/dL Glucose 156 H (74-99) mg/dL POC Glucose (mg/dL) 137 H (70-110) mg/dL Calcium 7.5 L (8.4-10.2) mg/dL Urine Protein (Negative) Assessment and Plan Assessment: Acute COPD exacerbation Acute hypoxic respiratory failure Opiate dependence Nicotine dependence History of seizure Acute kidney injury, resolved Plan: continue with IV Solu-Medrol Continue with Zithromax Continue with a breathing treatment Pulmonary team consult We will check troponin in the morning Labs and medication were reviewed.. Continue same treatment. Continue with symptomatic treatment. Resume home medication. Monitor labs and vitals. DVT and GI prophylaxis. Further recommendations as per clinical course of the ramesh gaviria DVT prophylaxis: Subcutaneous heparin GI Prophylaxis: Pepcid PT/OT: Pending Prognosis is guarded
[2022-06-20] MEDS: guaiFENesin-DM 100-10MG/5ML 10 ML CUP PO PRN ×2 (00:09→06:39)
[2022-06-20 06:13] LABS: Glucose,Whole Blood 142 mg/dL (70-110)
[2022-06-20] MEDS: INSULIN ASPART (NovoLOG) 100 UNIT/ML VIAL SQ SCH ×4 (06:21→21:56)
[2022-06-20] MEDS: LEVOTHYROXINE 100 MCG TAB PO SCH (06:24)
[2022-06-20] MEDS: methylPREDNISolone SOD SUCCI 125 MG/2 ML VIAL IV SCH ×3 (06:24→16:59)
[2022-06-20] MEDS: ALBUTEROL NEBULIZED 2.5 MG/3 ML INHALATION SCH ×4 (07:52→20:18)
[2022-06-20] MEDS: SYMBICORT 160-4.5 MCG INHALER INHALATION SCH ×2 (07:52→20:18)
[2022-06-20] MEDS: IPRATROPIUM 0.5 MG/2.5 ML NEBU INHALATION SCH ×4 (07:59→20:23)
[2022-06-20] MEDS: AZITHROMYCIN 500 MG TAB PO SCH (08:15)
[2022-06-20] MEDS: NICOTINE 7MG/24HR PATCH TRANSDERM SCH (08:15)
[2022-06-20] MEDS: METOPROLOL TARTRATE 25 MG TAB PO SCH ×2 (08:16→21:56)
[2022-06-20] MEDS: FAMOTIDINE 20 MG TAB PO SCH ×2 (08:16→21:56)
[2022-06-20] MEDS: levETIRAcetam 500 MG TAB PO SCH ×3 (08:16→21:56)
[2022-06-20] MEDS: ESCITALOPRAM 20 MG TAB PO SCH ×2 (08:16→21:56)
[2022-06-20] MEDS: cloNIDine HCL 0.2 MG TAB PO SCH ×2 (08:16→21:56)
[2022-06-20] MEDS: LACOSAMIDE 50 MG TABLET PO SCH ×2 (08:16→21:56)
[2022-06-20] MEDS: HEPARIN SODIUM,PORCINE/PF 5,000 UNIT/0.5 ML SYRINGE SQ SCH ×2 (08:16→21:55)
[2022-06-20] MEDS: GABAPENTIN 300 MG CAP PO SCH ×3 (08:16→21:56)
[2022-06-20] MEDS: NALOXONE HCL SUBLINGUAL SCH (08:17)
[2022-06-20] MEDS: BUPRENORPHINE HCL SUBLINGUAL SCH (08:17)
[2022-06-20] MEDS ORDERED: FAMOTIDINE 20 MG/2 ML VIAL IV SCH (09:00)
--- NOTE | 2022-06-20 09:17 | P.PN ---
Subjective Progress Note Date: 06/20/22 This is a 59-year-old female patient with known history of COPD was coming in with worsening shortness of breath. The patient is known to us from previous hospital admissions. She has been COPD and the patient has limited on Trelegy Ellipta on outpatient basis. She was in the hospital approximately 10 days ago for a breakthrough seizure as the patient is known to have seizure disorder. She is a chronic smoker. She presented emergency department yesterday because of worsening shortness of breath. She thinks that she could have picked up a cold from the hospital during her earlier hospitalization. She has increased dyspnea, chest tightness and wheezing and she is actively bronchospastic and wheezy. She was seen by her primary care physician who advised her coming into the hospital for further treatment. She is currently on oxygen at 5 L per minute nasal cannula. She has home O2 yet she doesn't use on a regular basis. She denies having any angina or palpitation. She denies having any chest pain. The chest x-ray that was done in the ED showed some fine reticular pattern peripherally in the lung bases. There was evidence of emphysema. Lungs were essentially unremarkable otherwise. WBC count is at 15 hemoglobin was 14.2 and a platelet count is 84, BUN is 21 with a creatinine of 1.9 consistent with an acute kidney injury. Sodium is at 133 and a potassium level is at 4.4. Lactic acid level was slightly elevated at 2.8 dropped down to 0.7. Total bilirubin was 1.9. Troponin was 0.04. ProBNP level was 1450. Free T4 is 1.57. Her Covid 19 testing and influenza screen was negative. Noted the patient was infected with Covid 19 back in October 2021 and she has recovered. 06/19/2022, the patient is feeling better, she is less bronchospastic and wheezing on today's evaluation. No new complaints. She remains on bronchodilators and steroids patient remains on empiric antibiotic coverage. Follow renal function still pending from this morning is still pending as the patient's creatinine from yesterday was at 1.9. Otherwise, the night was uneventful. 06/20 2022, I'm seeing the patient for a follow-up. The patient is a is doing well. No significant shortness of breath. No chest pain. Recovering from acute COPD exacerbation. Follow-up blood work from today showing improvement of creatinine and the creatinine is normalized. No other complaints otherwise for now. She is on 3-4 L of oxygen by nasal cannula. No chest tightness. wheezing has subsided since yesterday. Objective - Vital Signs Vital signs: Vital Signs Temp 97.4 F L 06/20/22 08:00 Pulse 71 06/20/22 08:00 Resp 18 06/20/22 08:00 BP 141/61 06/20/22 08:00 Pulse Ox 94 L 06/20/22 08:00 FiO2 Intake & Output 06/19/22 06/20/22 06/20/22 18:59 06:59 18:59 Intake Total 318 250 Output Total 950 1600 Balance -632 -1350 Weight 75.9 kg Intake: Intake, IV Titration 250 Amount Azithromycin 500 mg In 250 Sodium Chloride 0.9% 250 ml @ 250 mls/hr IVPB [facility] Rx#:[id number] Oral 318 Output: Urine 950 1600 Other: Voiding Method Diaper Diaper External Catheter External Catheter - Exam Alert, oriented and comfortable. Oriented 3. Saturations are 93% on 5 L of oxygen by nasal cannula, breathing is nonlabored and the patient is not using accessory muscles of breathing. HEENT examination is grossly unremarkable. Neck supple. Full range of motion. No adenopathy thyromegaly or neck vein distention. Cardiovascular examination reveals regular rhythm rate. S1-S2 normal. No S3 or S4. No discernible murmur noted. Heart sounds are very distant. Lungs reveal coarse inspiratory and expiratory rhonchi. There are some expiratory wheezes. Breath sounds are equal bilaterally but diminished throughout. No crackles appreciated. Breath sounds are minimally improved. Abdomen soft bowel sounds are heard. No masses or tenderness. Extremities are intact. No cyanosis clubbing or edema. Skin is without rash or lesion. Neurologic examination is brief but nonfocal. - Labs CBC & Chem 7: 06/19/22 10:09 06/19/22 10:09 Labs: Abnormal Lab Results - Last 24 Hours (Table) 06/19/22 06/19/22 06/19/22 Range/Units 10: 10: 11:54 WBC 15.6 H (3.8-10.6) k/uL RDW 17.0 H (11.5-15.5) % Chloride 109 H (98-107) mmol/L Carbon Dioxide 18 L (22-30) mmol/L BUN 18 H (7-17) mg/dL Glucose 156 H (74-99) mg/dL POC Glucose (mg/dL) 119 H (70-110) mg/dL Calcium 7.5 L (8.4-10.2) mg/dL Urine Protein (Negative) 06/19/22 06/19/22 06/19/22 Range/Units 16:43 20:12 Unknown WBC (3.8-10.6) k/uL RDW (11.5-15.5) % Chloride (98-107) mmol/L Carbon Dioxide (22-30) mmol/L BUN (7-17) mg/dL Glucose (74-99) mg/dL POC Glucose (mg/dL) 135 H 137 H (70-110) mg/dL Calcium (8.4-10.2) mg/dL Urine Protein Trace H (Negative) 06/20/22 Range/Units 06:11 WBC (3.8-10.6) k/uL RDW (11.5-15.5) % Chloride (98-107) mmol/L Carbon Dioxide (22-30) mmol/L BUN (7-17) mg/dL Glucose (74-99) mg/dL POC Glucose (mg/dL) 142 H (70-110) mg/dL Calcium (8.4-10.2) mg/dL Urine Protein (Negative) Assessment and Plan Plan: Acute exacerbation of COPD, no clear indication for an underlying pneumonia. Possibility of an underlying bronchitis cannot be ruled out. The viruses including influenza, Covid 19 and RSV were all negative. She is a chronic smoker which could be another trigger for recurrent exacerbation of COPD. Acute on chronic hypoxic respiratory failure currently on oxygen at 3-4 L/m nasal cannula Advanced COPD maintain on Trelegy Ellipta on outpatient basis Nicotine addiction. CAD with previous stent placement. The patient is a limited troponin leak secondary to above Acute kidney injury, recovered and the creatinine is normalized Mild lactic acidosis, improving Mild leukocytosis Previous history of Covid 19 infection from October 2021 Obesity. History of seizure disorder, recent hospitalization for a breakthrough seizure, currently on Keppra History of hypothyroidism. History of hyperlipidemia. Left carotid artery stenosis. Plan Clinically improved Creatinine normalized Titrate oxygen flow to maintain a saturation above 90% Continue albuterol neb treatments [id number] From the pulmonary standpoint, the patient is able to go home on Trelegy Ellipta one inhalation a day, prednisone burst taper, currently course of Zithromax and albuterol in about treatments. She has home O2. Resume all medication including a combination of Vimpat for Seizures Nicotine patch We'll sign off the case. We'll follow this patient on an outpatient basis, clear to discharge from pulmonary standpoint
[2022-06-20 09:18] LABS: African American GFR (CKD) >90 (>60 ml/min/1.73 sqM); Anion Gap 8 mmol/L; Blood Urea Nitrogen 18 mg/dL (7-17); Calcium 7.8 mg/dL (8.4-10.2); Carbon Dioxide 23 mmol/L (22-30); Chloride 108 mmol/L (98-107); Glucose 113 mg/dL (74-99); Non-African American GFR(CKD) 85 (>60 ml/min/1.73 sqM); Sodium 139 mmol/L (137-145)
[2022-06-20] MEDS ORDERED: ALPRAZolam 0.5 MG TAB PO PRN (09:49)
[2022-06-20 11:44] LABS: Glucose,Whole Blood 137 mg/dL (70-110)
--- NOTE | 2022-06-20 13:46 | P.PN ---
Subjective This is 59-year-old white female with known history of opiate dependence with history of COPD. The patient was seen in my office yesterday with oxygen saturation on 2 L and 88%. The patient typically does not need oxygen supplementation. She feel Dusky slightly hypotension she was admitted for exacerbation of COPD. 06/19/2022 Patient dyspnea is improving, she is currently on 5 L oxygen which is her home doses. She still have some scattered wheezing Patient is hemodynamically stable Lipid creatinine his back to normal. Ejection fraction on 04/13/2022 showing EF of 55-60% Patient currently on IV Solu-Medrol 60 mg and Zithromax. And subcutaneous heparin and Pepcid 06/20/2022 Patient breathing is improving, she is tachypneic and she is saturating 97% on 4 L oxygen via nasal cannula She remains on IV Solu-Medrol was Switched to prednisone upon discharge A troponin and admission was elevated, she has history of 7 stents in her heart. Repeat troponin today is negative. 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 BNP today is unremarkable with sugar controlled rate Objective - Vital Signs Vital signs: Vital Signs Temp 97.8 F 06/20/22 12:00 Pulse 69 06/20/22 12:00 Resp 18 06/20/22 12:00 BP 145/78 06/20/22 12:00 Pulse Ox 97 06/20/22 12:00 FiO2 Intake & Output 06/19/22 06/20/22 06/20/22 18:59 06:59 18:59 Intake Total 318 250 240 Output Total 950 1600 Balance -632 -1350 240 Weight 75.9 kg Intake: Intake, IV Titration 250 Amount Azithromycin 500 mg In 250 Sodium Chloride 0.9% 250 ml @ 250 mls/hr IVPB [facility] Rx#:[id number] Oral 318 240 Output: Urine 950 1600 Other: Voiding Method Diaper Diaper Diaper External Catheter External Catheter External Catheter - Exam GENERAL: The patient is alert and oriented x3, not in any acute distress. Well developed, well nourished. HEENT: Pupils are round and equally reacting to light. EOMI. No scleral icterus. No conjunctival pallor. Normocephalic, atraumatic. No pharyngeal erythema. No thyromegaly. CARDIOVASCULAR: S1 and S2 present. No murmurs, rubs, or gallops. PULMONARY: Chest is clear to auscultation, bilateral expiratory wheezing . ABDOMEN: Soft, nontender, nondistended, normoactive bowel sounds. No palpable organomegaly. MUSCULOSKELETAL: No joint swelling or deformity. EXTREMITIES: No cyanosis, clubbing, or pedal edema. NEUROLOGICAL: Gross neurological examination did not reveal any focal deficits. SKIN: No rashes. no petechiae. - Labs CBC & Chem 7: 06/19/22 10:09 06/20/22 08:01 Labs: Abnormal Lab Results - Last 24 Hours (Table) 06/19/22 06/19/22 06/19/22 Range/Units 16:43 20:12 Unknown Chloride (98-107) mmol/L BUN (7-17) mg/dL Glucose (74-99) mg/dL POC Glucose (mg/dL) 135 H 137 H (70-110) mg/dL Calcium (8.4-10.2) mg/dL Urine Protein Trace H (Negative) 06/20/22 06/20/22 06/20/22 Range/Units 06:11 08:01 11:25 Chloride 108 H (98-107) mmol/L BUN 18 H (7-17) mg/dL Glucose 113 H (74-99) mg/dL POC Glucose (mg/dL) 142 H 137 H (70-110) mg/dL Calcium 7.8 L (8.4-10.2) mg/dL Urine Protein (Negative) Assessment and Plan Assessment: Acute COPD exacerbation Acute hypoxic respiratory failure Elevated troponin on admission repeat troponin is negative, rule out cardiac causes Opiate dependence Nicotine dependence History of seizure Acute kidney injury, resolved Plan: Cardiology consult continue with IV Solu-Medrol Continue with Zithromax Continue with a breathing treatment Pulmonary team consult Labs and medication were reviewed.. Continue same treatment. Continue with symptomatic treatment. Resume home medication. Monitor labs and vitals. DVT and GI prophylaxis. Further recommendations as per clinical course of the patient DVT prophylaxis: Subcutaneous heparin GI Prophylaxis: Pepcid PT/OT: Pending
[2022-06-20 16:50] LABS: Glucose,Whole Blood 198 mg/dL (70-110)
[2022-06-20] MEDS ORDERED: HYDROcodone/APAP 5-325MG 1 EACH TAB PO STA ×2 (17:07→23:55)
[2022-06-20 20:01] LABS: Glucose,Whole Blood 277 mg/dL (70-110)
[2022-06-20] MEDS: CAPSAICIN 0.025% CREAM 60 GM TUBE TOPICAL SCH (21:58)
[2022-06-20] MEDS: DOXEPIN 10 MG CAP PO SCH (22:06)
[2022-06-21] MEDS: methylPREDNISolone SOD SUCCI 125 MG/2 ML VIAL IV SCH ×3 (00:13→12:06)
[2022-06-21 01:27] VITALS: TEMP 97.7
[2022-06-21 06:00] LABS: Glucose,Whole Blood 165 mg/dL (70-110)
[2022-06-21] MEDS: LEVOTHYROXINE 100 MCG TAB PO SCH (06:17)
[2022-06-21] MEDS: INSULIN ASPART (NovoLOG) 100 UNIT/ML VIAL SQ SCH ×2 (06:17→11:45)
[2022-06-21] MEDS: ALBUTEROL NEBULIZED 2.5 MG/3 ML INHALATION SCH ×3 (08:47→16:45)
[2022-06-21] MEDS: IPRATROPIUM 0.5 MG/2.5 ML NEBU INHALATION SCH ×3 (08:48→16:45)
[2022-06-21] MEDS: SYMBICORT 160-4.5 MCG INHALER INHALATION SCH (08:48)
[2022-06-21] MEDS ORDERED: ASPIRIN 81 MG PO SCH (09:00)
[2022-06-21] MEDS: CAPSAICIN 0.025% CREAM 60 GM TUBE TOPICAL SCH (09:13)
[2022-06-21] MEDS: HEPARIN SODIUM,PORCINE/PF 5,000 UNIT/0.5 ML SYRINGE SQ SCH (09:13)
[2022-06-21] MEDS: NICOTINE 7MG/24HR PATCH TRANSDERM SCH (09:14)
[2022-06-21] MEDS: FAMOTIDINE 20 MG TAB PO SCH (09:14)
[2022-06-21] MEDS: cloNIDine HCL 0.2 MG TAB PO SCH (09:14)
[2022-06-21] MEDS: LACOSAMIDE 50 MG TABLET PO SCH (09:14)
[2022-06-21] MEDS: ESCITALOPRAM 20 MG TAB PO SCH (09:14)
[2022-06-21] MEDS: levETIRAcetam 500 MG TAB PO SCH (09:14)
[2022-06-21] MEDS: GABAPENTIN 300 MG CAP PO SCH (09:14)
[2022-06-21] MEDS: METOPROLOL TARTRATE 25 MG TAB PO SCH (09:17)
[2022-06-21] MEDS: BUPRENORPHINE HCL SUBLINGUAL SCH (09:22)
[2022-06-21] MEDS: NALOXONE HCL SUBLINGUAL SCH (09:22)
[2022-06-21 10:54] VITALS: RESP 20
--- NOTE | 2022-06-21 11:30 | P.CRDCN ---
History of Present Illness Consult date: 06/21/22 History of present illness: HISTORY OF PRESENT ILLNESS: This is a 61-year-old female with a past medical history significant for coronary artery disease with previous stenting, peripheral arterial disease, left subclavian stenting, carotid disease, and nicotine dependence. Patient follows in the office with Dr. Vale has not been seen in the office since April 2020. We have been asked to see the patient in consultation for abnormal troponins. Patient examined at the bedside. Patient presented to the hospital with a chief complaint of shortness of breath. She is being treated for COPD exacerbation. She remains on IV steroids. She states her shortness of breath has improved at the time of my examination. She denied having any chest pain or pressure. Vital signs are stable. * EKG reveals sinus mechanism with no signs of acute ischemia * Chest xray subtle bilateral pulmonary findings. * Laboratory data: WBC 15.6. Hemoglobin 13.4. Platelet count 170. Sodium 139. Potassium 4.0. BUN 18. Creatinine 0.76. Troponin 0.051. 0.040. 0.012. * Current home cardiac medications include metoprolol tartrate 25 mg twice a day and clonidine 0.2 mg twice a day * Most recent echocardiogram obtained in March 2022 revealed normal ejection fraction with mild MR * Cardiac catheterization history: August 2020 revealing a patent stent in the proximal and mid LAD. Elevated LVEDP. REVIEW OF SYSTEMS: At the time of my exam: CONSTITUTIONAL: Denies fever or chills. HEENT: Denies blurred vision, vision changes, or eye pain. Denies hemoptysis CARDIOVASCULAR: Denies chest pain. Denies orthopnea. Denies PND. Denies palpitations RESPIRATORY: Denies shortness of breath. GASTROINTESTINAL: Denies abdominal pain. Denies nausea or vomiting. HEMATOLOGIC: Denies bleeding disorders. GENITOURINARY: Denies any blood in urine. SKIN: Denies pruitis. Denies rash. PHYSICAL EXAM: VITAL SIGNS: Reviewed. GENERAL: Well-developed in no acute distress. HEENT: Head is normocephalic. Pupils are equal, round. Sclerae anicteric. Mucous membranes of the mouth are moist. Neck supple. No JVD or thyromegaly LUNGS: Respirations even and unlabored. Lungs with expiratory wheezing throughout HEART: Regular rate and rhythm. S1 and S2 heard. ABDOMEN: Soft. Nondistended. Nontender. EXTREMITIES: Normal range of motion. No clubbing or cyanosis. Peripheral pulses intact. No lower extremity edema NEUROLOGIC: Awake and alert. Oriented x 3. ASSESSMENT: Shortness of breath Acute exacerbation of COPD Mildly abnormal troponins, secondary to above, no evidence of acute coronary syn drome Coronary artery disease with previous stenting of LAD Peripheral arterial disease History of left subclavian stenting Carotid stenosis Nicotine dependence PLAN: An acute coronary event has been ruled out Obtain limited echo to assess LV function Add aspirin 81 mg daily Add atorvastatin 40 mg daily Smoking cessation encouraged Patient may be discharged home this afternoon from a cardiac standpoint if echo is unchanged from prior She is to follow up on an outpatient basis with Dr. Vale Nurse practitioner note has been reviewed by physician. Signing provider agrees with the documented findings, assessment, and plan of care. 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 Left carotid blockage History of Any Multi-Drug Resistant Organisms: None Reported Past Surgical History: Heart Catheterization, Heart Catheterization With Stent, Hysterectomy, Orthopedic Surgery Additional Past Surgical History / Comment(s): RT ROTATOR CUFF REPAIR, CYSTS REMOVED FROM UNDER ARMS AND HANDS, 7 stents, 07/18/18 left subclavian stent. Past Anesthesia/Blood Transfusion Reactions: No Reported Reaction Additional Past Anesthesia/Blood Transfusion Reaction / Comment(s): Pt states that she is unable to go under anesthesia per her library services assistant due to low functioning lungs. Date of Last Stent Placement:: Nov 2017 Past Psychological History: Depression Smoking Status: Current every day smoker Past Alcohol Use History: None Reported Additional Past Alcohol Use History / Comment(s): SMOKES 3-4 cig/day currently. Started smoking at age 11 Past Drug Use History: None Reported - Past Family History Mother Family Medical History: Cancer Sister(s) Family Medical History: Cancer Medications and Allergies Home Medications Medication Instructions Recorded Confirmed Type Escitalopram [Lexapro] 20 mg PO BID 11/28/17 06/17/22 History Levothyroxine Sodium 200 mcg PO DAILY 08/20/20 06/17/22 History Nitroglycerin Sl Tabs [Nitrostat] 0.4 mg SL Q5M PRN 08/20/20 06/17/22 History Gabapentin 600 mg PO TID 06/18/21 06/17/22 History cloNIDine HCL 0.2 mg PO BID 08/06/21 06/17/22 History Doxepin [SINEquan] 10 mg PO HS 02/25/22 06/17/22 History Fluticasone/Umeclidin/Vilanter 1 puff INHALATION RT-DAILY 02/25/22 06/17/22 History [Trelegy Ellipta 200-62.5-25] Metoprolol Tartrate [Lopressor] 25 mg PO BID #60 tab 02/26/22 06/17/22 Rx Ibuprofen [Motrin Ib] 200 mg PO BID PRN 04/11/22 06/17/22 History Ipratropium-Albuterol Nebulize 3 mg INHALATION RT-BID 04/11/22 06/17/22 History [Duoneb 0.5 mg-3 mg/3 ml Soln] Buprenorphine HCl/Naloxone HCl 1 tab SUBLINGUAL DAILY 06/02/22 06/17/22 History [Zubsolv 2.9-0.71 mg Tablet Sl] Lacosamide [Vimpat] 50 mg PO BID #60 tab 06/04/22 06/17/22 Rx levETIRAcetam [Keppra] 1,000 mg PO TID #180 tab 06/04/22 06/17/22 Rx Allergies Allergy/AdvReac Type Severity Reaction Status Date / Time No Known Allergies Allergy Verified 06/17/22 19:05 Physical Exam Vitals: Vital Signs Temp Pulse Pulse Resp BP Pulse Ox 06/21/22 09:05 84 06/21/22 08:49 84 96 06/21/22 04:00 97.7 F 73 15 123/60 96 06/21/22 00:20 97.7 F 88 16 123/68 96 06/20/22 20:35 74 06/20/22 20:25 70 06/20/22 19:30 97.8 F 76 15 125/65 95 06/20/22 16:00 98 F 94 18 91/55 94 L 06/20/22 15:27 95 18 06/20/22 15:18 95 18 06/20/22 13:44 69 18 06/20/22 12:00 97.8 F 69 18 145/78 97 06/20/22 11:33 70 06/20/22 11:20 66 95 Intake and Output 06/20/22 06/21/22 06/21/22 22:59 06:59 14:59 Intake Total 10 20 540 Output Total 1050 Balance 10 -1030 540 Intake: IV 10 20 Invasive Line 1 10 20 Oral 540 Output: Urine 1050 Other: Voiding Method Diaper Diaper External Catheter External Catheter Weight 75.2 kg Results 06/19/22 10:09 06/20/22 08:01 Current Medications Generic Name Dose Route Start Last Admin Trade Name Freq PRN Reason Stop Dose Admin Acetaminophen 650 mg 06/17/22 18:36 Acetaminophen Tab 325 Mg Tab PO Q4HR PRN Mild Pain or Fever > 100.5 Albuterol Sulfate 2.5 mg 06/18/22 08:00 06/21/22 08:47 Albuterol Nebulized 2.5 Mg/3 Ml INHALATION 2.5 mg RT-QID VINICIO Administration Aspirin 81 mg 06/21/22 09:00 06/21/22 09:14 Aspirin 81 Mg PO 81 mg DAILY VINICIO Administration Atorvastatin Calcium 40 mg 06/21/22 21:00 Atorvastatin 40 Mg Tab PO HS VINICIO Budesonide/Formoterol Fumarate 2 puff 06/18/22 08:00 06/21/22 08:48 Symbicort 160-4.5 Mcg Inhaler INHALATION 2 puff RT-BID VINICIO Administration Capsaicin 1 applic 06/20/22 21:00 06/21/22 09:13 Capsaicin 0.025% Cream 60 Gm Tube TOPICAL 1 applic BID VINICIO Administration Protocol Clonidine 0.2 mg 06/17/22 21:00 06/21/22 09:14 Clonidine Hcl 0.2 Mg Tab PO 0.2 mg BID VINICIO Administration Doxepin HCl 10 mg 06/17/22 21:00 06/20/22 22:06 Doxepin 10 Mg Cap PO 10 mg HS VINICIO Administration Escitalopram Oxalate 20 mg 06/17/22 21:00 06/21/22 09:14 Escitalopram 20 Mg Tab PO 20 mg BID VINICIO Administration Famotidine 20 mg 06/20/22 09:00 06/21/22 09:14 Famotidine 20 Mg Tab PO 20 mg BID VINICIO Administration Gabapentin 600 mg 06/17/22 22:00 06/21/22 09:14 Gabapentin 300 Mg Cap PO 600 mg TID VINICIO Administration Guaifenesin/Dextromethorphan 10 ml 06/18/22 22:00 06/20/22 06:39 Guaifenesin-Dm 100-10mg/5ml 10 Ml Cup PO 10 ml Q6HR PRN Administration Cough Heparin Sodium (Porcine) 5,000 unit 06/20/22 09:00 06/21/22 09:13 Heparin Sodium,Porcine/Pf 5,000 Unit/0.5 Ml Syringe SQ 5,000 unit Q12HR VINICIO Administration Insulin Aspart 0 unit 06/18/22 17:30 06/21/22 06:17 Insulin Aspart (Novolog) 100 Unit/Ml Vial SQ 2 unit ACHS VINICIO Administration Protocol Ipratropium [place] 0.5 mg 06/18/22 08:00 06/21/22 08:48 Ipratropium 0.5 Mg/2.5 Ml Nebu INHALATION 0.5 mg RT-QID VINICIO Administration Lacosamide 50 mg 06/17/22 21:00 06/21/22 09:14 Lacosamide 50 Mg Tablet PO 50 mg BID VINICIO Administration Levetiracetam 1,000 mg 06/17/22 22:00 06/21/22 09:14 Levetiracetam 500 Mg Tab PO 1,000 mg TID VINICIO Administration Levothyroxine Sodium 200 mcg 06/18/22 06:30 06/21/22 06:17 Levothyroxine 100 Mcg Tab PO 200 mcg DAILY@0630 VINICIO Administration Methylprednisolone Sodium Succinate 60 mg 06/18/22 12:45 06/21/22 06:17 Methylprednisolone Sod Succi 125 Mg/2 Ml Vial IV 60 mg Q6HR VINICIO Administration Metoprolol Tartrate 25 mg 06/17/22 21:00 06/21/22 09:17 Metoprolol Tartrate 25 Mg Tab PO 25 mg BID VINICIO Administration Naloxone HCl 0.2 mg 06/17/22 18:36 Naloxone 0.4 Mg/Ml 1 Ml Vial IVP Q2M PRN Opioid Reversal Nicotine 1 patch 06/18/22 09:00 06/21/22 09:14 Nicotine 7mg/24hr Patch TRANSDERM 1 patch DAILY VINICIO Administration Nitroglycerin 0.4 mg 06/18/22 12:53 Nitroglycerin Sl Tabs 0.4 Mg Tab SUBLINGUAL Q5M PRN Chest Pain Buprenorphine Hcl/ 1 tab 06/18/22 09:00 06/21/22 09:22 Naloxone Hcl [ SUBLINGUAL Not Given Zubsolv 2.9-0.71 Mg DAILY VINICIO Tablet Sl] 1 Each Intake and Output 06/20/22 06/21/22 06/21/22 22:59 06:59 14:59 Intake Total 10 20 540 Output Total 1050 Balance 10 -1030 540 Intake: IV 10 20 Invasive Line 1 10 20 Oral 540 Output: Urine 1050 Other: Voiding Method Diaper Diaper External Catheter External Catheter Weight 75.2 kg 06/19/22 10:09 06/20/22 08:01
[2022-06-21 11:33] LABS: Glucose,Whole Blood 131 mg/dL (70-110)
--- NOTE | 2022-06-21 14:38 | P.PN ---
Subjective Progress Note Date: 06/21/22 Principal diagnosis: Acute exacerbation of COPD This is a 59-year-old female patient with known history of COPD was coming in with worsening shortness of breath. The patient is known to us from previous hospital admissions. She has been COPD and the patient has limited on Trelegy Ellipta on outpatient basis. She was in the hospital approximately 10 days ago for a breakthrough seizure as the patient is known to have seizure disorder. She is a chronic smoker. She presented emergency department yesterday because of worsening shortness of breath. She thinks that she could have picked up a cold from the hospital during her earlier hospitalization. She has increased dyspnea, chest tightness and wheezing and she is actively bronchospastic and wheezy. She was seen by her primary care physician who advised her coming into the hospital for further treatment. She is currently on oxygen at 5 L per minute nasal cannula. She has home O2 yet she doesn't use on a regular basis. She denies having any angina or palpitation. She denies having any chest pain. The chest x-ray that was done in the ED showed some fine reticular pattern peripherally in the lung bases. There was evidence of emphysema. Lungs were essentially unremarkable otherwise. WBC count is at 15 hemoglobin was 14.2 and a platelet count is 84, BUN is 21 with a creatinine of 1.9 consistent with an acute kidney injury. Sodium is at 133 and a potassium level is at 4.4. Lactic acid level was slightly elevated at 2.8 dropped down to 0.7. Total bilirubin was 1.9. Troponin was 0.04. ProBNP level was 1450. Free T4 is 1.57. Her Covid 19 testing and influenza screen was negative. Noted the patient was infected with Covid 19 back in October 2021 and she has recovered. 06/19/2022, the patient is feeling better, she is less bronchospastic and wheezing on today's evaluation. No new complaints. She remains on bronchodilators and steroids patient remains on empiric antibiotic coverage. Fo llow renal function still pending from this morning is still pending as the patient's creatinine from yesterday was at 1.9. Otherwise, the night was uneventful. 06/20 2022, I'm seeing the patient for a follow-up. The patient is a is doing well. No significant shortness of breath. No chest pain. Recovering from acute COPD exacerbation. Follow-up blood work from today showing improvement of creatinine and the creatinine is normalized. No other complaints otherwise for now. She is on 3-4 L of oxygen by nasal cannula. No chest tightness. wheezing has subsided since yesterday. Reevaluated today on 06/21/2022, patient is feeling much better today, breathing a lot easier, not in any distress, patient is on room air. O2 saturation on 3 L was 96%. His screens for influenza A and influenza B RSV and Covid 19 were all negative. Chest x-ray is basically on remarkable, the findings are subtle, patient was seen by cardiology and basically acute coronary event was ruled out. Patient could be discharged home from our perspective assuming the patient is cleared by cardiology for discharge. Objective - Vital Signs Vital signs: Vital Signs Temp 97.7 F 06/21/22 08:00 Pulse 71 06/21/22 12:31 Resp 20 06/21/22 08:00 BP 135/60 06/21/22 08:00 Pulse Ox 96 06/21/22 08:49 FiO2 Intake & Output 06/20/22 06/21/22 06/21/22 18:59 06:59 18:59 Intake Total 240 30 860 Output Total 200 1050 Balance 40 -1020 860 Weight 75.2 kg Intake: IV 30 20 Invasive Line 1 30 20 Oral 240 840 Output: Urine 200 1050 Other: Voiding Method Diaper Diaper Diaper External Catheter External Catheter External Catheter # Voids 1 - Exam Physical Exam: Revealed a 61-year-old female in no distress. Head: Atraumatic, normocephalic. HEENT:[Neck is supple.] [No neck masses.] [No thyromegaly.] [No JVD.] Chest: [Diminished breath sound bilaterally no crackles or rhonchi or wheezes] Cardiac Exam: [Normal S1 and S2, no S3 gallop, no murmur.] Abdomen: [Soft, nontender, no megaly, no rebound, no guarding, normal bowel s ounds.] Extremities: [No clubbing, no edema, no cyanosis.] Neurological Exam: [No focal neurologic deficit.] Alert oriented 3. Psychiatric: Normal mood, affect and normal mental status examination. Skin: No rashes - Labs CBC & Chem 7: 06/19/22 10:09 06/20/22 08:01 Labs: Abnormal Lab Results - Last 24 Hours (Table) 06/20/22 06/20/22 06/21/22 Range/Units 16:33 19:59 05:59 POC Glucose (mg/dL) 198 H 277 H 165 H (70-110) mg/dL 06/21/22 Range/Units 11:31 POC Glucose (mg/dL) 131 H (70-110) mg/dL Assessment and Plan Assessment: Impression: Acute on chronic hypoxic respiratory failure Acute exacerbation of COPD Nicotine dependence. Previous history of COVID-19 infection October 20 History of seizure disorder, maintained on Keppra History of hypothyroidism Dyslipidemia History of left carotid artery stenosis Recommendation: Continue bronchodilators Consider discharge planning Continue prednisone burst and taper over the next 2 weeks Stop antibiotics Discharge home on oxygen, she already has oxygen at home Follow up on outpatient basis. Cleared by pulmonary is clear by other consultants. Time with Patient: Less than 30
[2022-06-21 16:06] VITALS: PULSE 90
[2022-06-21 16:12] VITALS: BP 103/63
[2022-06-21] MEDS ORDERED: ATORVASTATIN 40 MG TAB PO SCH (21:00)
--- NOTE | 2022-06-22 09:41 | CA ---
Transthoracic Echo Report Name: Lidia Chang Age: 61 Gender: F : 1960 Exam Date: 06/21/2022 13:36 Exam Location: [facility] Ht (in): 65 Wt (lb): 165 Ordering Physician: Geri Jacobo Attending/Referring Phys: [id number], Donnell Melter Helper Esha Simmons, SAMUEL Procedure CPT: Indications: LV funct, abnormal trops, assess wall motion abn Cardiac Hx: Limited study Technical Quality: Good Contrast 1: Total Dose (mL): Contrast 2: Total Dose (mL): MEASUREMENTS (Male / Female) Normal Values FINDINGS Left Ventricle Limited study. Left ventricular ejection fraction is estimated at 55-60 %. No obvious regional wall motion abnormalities. Right Ventricle Right Atrium Left Atrium Mitral Valve Structurally normal mitral valve. No mitral stenosis, regurgitation or prolapse. Aortic Valve Trileaflet aortic valve. No aortic valve stenosis or regurgitation. Tricuspid Valve Structurally normal tricuspid valve. No tricuspid stenosis, regurgitation or prolapse. Pulmonic Valve Pericardium Normal pericardium. No pericardial effusion. Aorta CONCLUSIONS Limited views normal LV size and systolic function. Suboptimal Doppler no significant abnormality. No pericardial effusion Previewed by: Dr. Francy Temple MD (Electronically Signed) Final Date: 22 June 2022 09:41
--- NOTE | 2022-06-22 20:14 | P.DS ---
Providers Date of admission: 06/17/22 18:38 Attending physician: Jose F Mcwilliams Consults: 06/17/22 18:41 Consult Physician Routine Consulting Provider: Hilario Castillo Consult Reason/Comments: COPD patient Do you want consulting provider notified?: Yes 06/20/22 09:22 Consult Physician Urgent Consulting Provider: Braulio Lambert Consult Reason/Comments: elevated troponin Do you want consulting provider notified?: Yes Primary care physician: Jose F Mcwilliams Hospital Course: Final Diagnosis Acute COPD exacerbation Acute hypoxic respiratory failure Troponin leak secondary to hypoxia and COPD exacerbation, cardiology has ruled out an acute coronary syndrome. Acute kidney injury, resolved Chronic hypoxic respiratory with 2L oxygen as needed at home. Opiate dependence Nicotine dependence History of seizure History of hypothyroidism Dyslipidemia Carotid artery stenosis History of coronary artery disease with prior PCI. Discharge Disposition Patient is stable for discharge home. Cleared by consultations. Recommended to see cardiology and pulmonology on discharge. Complete oral steroid taper as prescribed. Started on glipizide 2.5 mg twice a day with meals for the next 10 days while completing oral steroid taper for elevated blood glucose. Follow up labs in 2 to 3 days to monitor serum blood glucose. Continue on same home oxygen via nasal cannula, may need to wear more frequently on discharge. Cardiology has recommended patient discharge on aspirin 81 mg daily and atorvastatin 40 mg daily. Patient is [facility]. Patient to see Dr. Mcwilliams in 1 to 2 days after discharge. Hospital Course This is a pleasant 61 year old female who follows with Dr. Mcwilliams. History of COPD, opiate and nicotine dependence, seizure disorder. Patient was hospitalized recently for breakthrough seizure. Presents to the hospital from her PCP office with concern for hypoxia oxygen saturation found to be around 88% Patient was slightly hypotensive and dusky in color. Patient was hypoxic at 76% requiring 5 L of oxygen when she presented to the . Initial work up reveals white count of 13. Sodium of 133, BUN 21, creatinine 1.90. Lactic acid was elevated. Troponin was elevated at 0.051, 0.040. proBNP of 1450. COVID, influenza and RSV were negative. Urinalysis negative. Patient was admitted for COPD exacerbation. Followed by pulmonary. Patient improved on course of IV steroids, azithromycin and updrafts. Patients oxygen saturation improved to 96% on 2-3L of oxygen. Pulmonary cleared on prednisone burst and taper. Patient was evaluated by cardiology for troponin elevation. Limited echo reveals normal LV size and systolic function. Acute coronary syndrome ruled out. Cleared for discharge. 06/21/2022 Patient is evaluated today sitting up at bedside. No acute events overnight. No chest pain reported. No shortness of breath. Oxygen saturation has improved. There is some faint expiratory wheezing that has improved since admission. Alert x 3 and focal neurological exam is negative. Creatinine has improved to 0.76. Blood glucose improved. patient remains afebrile. Cleared by consultations for D/C with above recommendations in place. Please see medication reconciliation for a list of current medication. Thank you for allowing us to participate in the care of this patient. The impression and plan of care has been dictated by Josy Gruber, Nurse Practitioner as directed. Dr. Nichelle MD I have performed a history and physical examination and medical decision making of this patient, discussed the same with the dictator, and agree with the d ictators assessment and plan as written, documented as a scribe. Based on total visit time, I have performed more than 50% of this visit. Patient Condition at Discharge: Stable Plan - Discharge Summary Discharge Rx Participant: No New Discharge Prescriptions: New Aspirin 81 mg PO DAILY #30 tab Famotidine [Pepcid] 20 mg PO BID #60 tab glipiZIDE [Glucotrol] 2.5 mg PO AC-BID 10 Days #20 tablet Atorvastatin [Lipitor] 40 mg PO HS #30 tab predniSONE 0 mg PO DIRECTED 14 Days #40 tab Capsaicin Cream [Trixaicin Cream] 1 applic TOPICAL BID each Continue Escitalopram [Lexapro] 20 mg PO BID Nitroglycerin Sl Tabs [Nitrostat] 0.4 mg SL Q5M PRN PRN Reason: Chest Pain Doxepin [SINEquan] 10 mg PO HS Fluticasone/Umeclidin/Vilanter [Trelegy Ellipta 200-62.5-25] 1 puff INHALATION RT-DAILY Metoprolol Tartrate [Lopressor] 25 mg PO BID #60 tab Lacosamide [Vimpat] 50 mg PO BID #60 tab Levothyroxine Sodium 200 mcg PO DAILY Gabapentin 600 mg PO TID cloNIDine HCL 0.2 mg PO BID Ipratropium-Albuterol Nebulize [Duoneb 0.5 mg-3 mg/3 ml Soln] 3 mg INHALATION RT-BID Buprenorphine HCl/Naloxone HCl [Zubsolv 2.9-0.71 mg Tablet Sl] 1 tab SUBLINGUAL DAILY levETIRAcetam [Keppra] 1,000 mg PO TID #180 tab Discontinued Ibuprofen [Motrin Ib] 200 mg PO BID PRN PRN Reason: Fever And/ Or Pain Discharge Medication List Escitalopram [Lexapro] 20 mg PO BID 11/28/17 [History] Levothyroxine Sodium 200 mcg PO DAILY 08/20/20 [History] Nitroglycerin Sl Tabs [Nitrostat] 0.4 mg SL Q5M PRN 08/20/20 [History] Gabapentin 600 mg PO TID 06/18/21 [History] cloNIDine HCL 0.2 mg PO BID 08/06/21 [History] Doxepin [SINEquan] 10 mg PO HS 02/25/22 [History] Fluticasone/Umeclidin/Vilanter [Trelegy Ellipta 200-62.5-25] 1 puff INHALATION RT-DAILY 02/25/22 [History] Metoprolol Tartrate [Lopressor] 25 mg PO BID #60 tab 02/26/22 [Rx] Ipratropium-Albuterol Nebulize [Duoneb 0.5 mg-3 mg/3 ml Soln] 3 mg INHALATION RT-BID 04/11/22 [History] Buprenorphine HCl/Naloxone HCl [Zubsolv 2.9-0.71 mg Tablet Sl] 1 tab SUBLINGUAL DAILY 06/02/22 [History] Lacosamide [Vimpat] 50 mg PO BID #60 tab 06/04/22 [Rx] levETIRAcetam [Keppra] 1,000 mg PO TID #180 tab 06/04/22 [Rx] Aspirin 81 mg PO DAILY #30 tab 06/21/22 [Rx] Atorvastatin [Lipitor] 40 mg PO HS #30 tab 06/21/22 [Rx] Capsaicin Cream [Trixaicin Cream] 1 applic TOPICAL BID each 06/21/22 [Rx] Famotidine [Pepcid] 20 mg PO BID #60 tab 06/21/22 [Rx] glipiZIDE [Glucotrol] 2.5 mg PO AC-BID 10 Days #20 tablet 06/21/22 [Rx] predniSONE 0 mg PO DIRECTED 14 Days #40 tab 06/21/22 [Rx] Follow up Appointment(s)/Referral(s): Sandeep Thurman MD [STAFF PHYSICIAN] - 07/06/22 11:00 am [facility], [NON-STAFF] - Karthik Vale MD [STAFF PHYSICIAN] - 06/23/22 9:15 am (very important to go to follow up appointment. please call and cancel if not going to make it.) Jose F Mcwilliams MD [Primary Care Provider] - 06/24/22 10:00 am (with [facility]) Ambulatory/Diagnostic Orders: Basic Metabolic Panel [LAB.AMB] Time Frame: 3 Days, Location: None Selected Patient Instructions/Handouts: Heart Failure (DC), Non-diabetic Hypoglycemia (DC), COPD (Chronic Obstructive Pulmonary Disease) (DC) Activity/Diet/Wound Care/Special Instructions: Complete oral steroid taper as prescribed Continue on same home oxygen via nasal cannula Continue home inhalers as prescribed Started on glipizide 2.5 mg twice a day with meals for the next 10 days while completing oral steroid taper for elevated blood glucose Follow up labs in 2 to 3 days to monitor serum blood glucose If experiencing any signs of hypoglycemia stop this medication. Recommend to see PCP Dr. Mcwilliams on discharge Follow up with pulmonary in 1 week Discharged home with [facility] Discharge Disposition: HOME WITH HOME HEALTH SERVICES
== END 2022-06-21 16:47 | disposition home health service (06) | DRG 190 ==
LOC: EC 16:05 → 3SCARD 18:38
PROVIDERS: ADMIT Family Medicine; ATTEND Family Medicine
DX: J43.9 Emphysema, unspecified (principal); J96.21 Acute and chronic respiratory failure with hypoxia; J96.22 Acute and chronic respiratory failure with hypercapnia; N17.9 Acute kidney failure, unspecified; F11.20 Opioid dependence, uncomplicated; E87.20 Acidosis, unspecified; Z68.41 Body mass index [BMI] 40.0-44.9, adult; F17.210 Nicotine dependence, cigarettes, uncomplicated; Z20.822 Contact with and (suspected) exposure to COVID-19; R77.8 Other specified abnormalities of plasma proteins; E66.9 Obesity, unspecified; I65.22 Occlusion and stenosis of left carotid artery; G62.9 Polyneuropathy, unspecified; I95.9 Hypotension, unspecified; E03.9 Hypothyroidism, unspecified; F32.A Depression, unspecified; Z99.81 Dependence on supplemental oxygen; I25.10 Atherosclerotic heart disease of native coronary artery without angina pectoris; G40.909 Epilepsy, unspecified, not intractable, without status epilepticus; E78.5 Hyperlipidemia, unspecified; Z79.82 Long term (current) use of aspirin; Z79.890 Hormone replacement therapy; Z86.16 Personal history of COVID-19; Z79.899 Other long term (current) drug therapy; Z95.5 Presence of coronary angioplasty implant and graft
CPT/HCPCS: 36415; 71046; 80048; 80053; 81003; 83605; 83735; 83880; 84484; 85025; 85027; 85610; 85730; 87636; 93005; 93308; 94640; 94760; 96365; 96366; 99285

== ENCOUNTER → 2022-08-17 | Outpatient (CLI) | payer MEDICARE ==
--- NOTE | 2022-08-17 12:45 | MR ---
EXAMINATION TYPE: MR angio head wo con DATE OF EXAM: 08/17/2022 12:31 PM CLINICAL INDICATION:Female, 62 years old with history of R56.9 UNSPECIFIED CONVULSIONS; COMPARISON: CT 02/24/2022, MRI angiogram 04/01/2018 Technical: MRA brain: 3-D [id number] Axial with MIP and 3-D reconstruction. Performed on a separate workstat ion. IV Contrast: None Findings: Vertebral arteries: The vertebral arteries are patent. The right vertebral artery is slightly more d ominant. Basilar artery: The basilar artery is intact. The basilar artery bifurcation is normal. Internal Carotid arteries: The cervical, petrous, cavernous and supraclinoid segments are normal. Mil d atherosclerosis of the siphon. TINO: Patent with no evidence of aneurysm. ACOM: Present without evidence of aneurysm. MCA: Patent with no evidence of aneurysm. BARREL BUNG REMOVER AND DUMPER: Patent with no evidence of aneurysm. origins of the posterior cerebral arteries bilaterall y. PCOM: origins of the posterior cerebral arteries bilaterally. IMPRESSION: 1. No evidence of intracranial aneurysm or significant stenosis. 2. Similar scattered atherosclerosis of the carotid siphons bilaterally.
--- NOTE | 2022-08-17 13:05 | MR ---
EXAMINATION TYPE: MR brain wo con DATE OF EXAM: 08/17/2022 12:31 PM COMPARISON: 03/08/2019. CLINICAL INDICATION:Female, 62 years old with history of R56.9 UNSPECIFIED CONVULSIONS; [facility], TECHNIQUE: Multi planar, multi sequence imaging was performed through the brain including: T1, T2, In version recovery, Diffusion weighted imaging, and gradient echo imaging. No gadolinium was given. FINDINGS: Focus of T2 shine through within the right posterior frontal lobe no evidence for restricte d diffusion to suggest acute/subacute CVA.The hilton-white junctions, ventricular system, and cisterns appear unremarkable. Scattered foci of high T2 signal intensity are seen within the periventricular white matter. Midline structures show no abnormality. The susceptibility weighted images Blooming ar tifact within the left thalamus, right hypothalamus compatible with microhemorrhage. The bone marrow signal is within normal limits. Paranasal sinuses and mastoid air cells: No significant paranasal sinus disease. Visualized orbits: Right aphakia. The left globe is intact. IMPRESSION: 1. No evidence of intracranial mass. 2. Nonspecific white matter changes, likely secondary to small vessel ischemic disease. 3. Focus of T2 shine through within the right posterior frontal lobe no evidence for restricted diffu magalis to suggest acute/subacute CVA.
== END | disposition home or self-care (01) ==
LOC: RADMRIMAIN 11:17
PROVIDERS: ATTEND Family Medicine
DX: I65.23 Occlusion and stenosis of bilateral carotid arteries (principal); R56.9 Unspecified convulsions
CPT/HCPCS: 70544; 70551

== ENCOUNTER → 2022-08-26 | Outpatient (CLI) | payer MEDICARE | END | disposition home or self-care (01) | LOC: LABWHC1 08:21 | PROVIDERS: ATTEND Psychiatry & Neurology Neurology | DX: G40.909 Epilepsy, unspecified, not intractable, without status epilepticus (principal) | CPT/HCPCS: 36415; 80177 ==

== ENCOUNTER → 2022-09-20 | Day surgery (SDC) | payer MEDICARE ==
[~2022-09-20] MED LIST changes: +ALPRAZolam 0.25 MG TAB PO PRN; +ALPRAZolam 0.5 MG TAB PO PRN; +ASPIRIN 325 MG TAB PO STA; +ATORVASTATIN 80 MG TAB PO STA; -DEXAMETHASONE SOD PHOSPHATE 10 MG/ML 1 ML VIAL IV ONE; +HEPARIN SODIUM 1,000 UN/ML (10ML VL) ONE; +HEPARIN SODIUM,PORCINE 10,000 UNIT in SODIUM CHLORIDE 0.9% 1,000 ML IRRIGATION PRN; +HEPARIN SODIUM,PORCINE 2,500 UNIT in SODIUM CHLORIDE 0.9% 250 ML IRRIGATION PRN; +HYDROmorphone 0.5 MG/0.5 ML SYRINGE IVP ONE; -HYDROmorphone 0.5 MG/0.5 ML SYRINGE IVP PRN; +IBUPROFEN 400 MG TAB PO STA; +IOPAMIDOL-370 100ML BTL INJ ONE; +IPRATROPIUM-ALBUTEROL 3 ML NEB INHALATION STA; -LIDOCAINE 1% (10MG/ML) FOR IV START INTRADERMA PRN; +LIDOCAINE 1% INJ 10MG/ML (20 ML MDV) SQ ONE; +MIDAZOLAM 2 MG/2 ML VIAL IV ONE; -MIDAZOLAM 2 MG/2 ML VIAL IV PRN; +NITROGLYCERIN SL TABS 0.4 MG TAB SUBLINGUAL PRN; -ONDANSETRON 4 MG/2 ML VIAL IVP ONE; +RX INFO: IV CONTRAST WAS GIVEN 1 EACH MISC MISCELLANE PRN; +SODIUM CHLORIDE 0.9% 1,000 ML IV SCH; +SODIUM CHLORIDE 0.9% 1,000 ML in EMPTY BAG 1 BAG IV SCH; +VERAPAMIL 2.5 MG/ML 2 ML AMP ONE; -fentaNYL (PF) 50 MCG/ML 2 ML AMP IV PRN
[2022-09-20 09:56] VITALS: TEMP 98
--- NOTE | 2022-09-20 10:41 | P.PCN ---
Date of Procedure: 09/20/22 Operative Findings: CARDIAC CATHETERIZATION PERFORMING PHYSICIAN: Karthik Vale MD, RPVI PROCEDURE PERFORMED: 1. Selective right and left coronary angiogram 2. Left heart catheterization 3. Ultrasound-guided access of the right common femoral artery and the right common femoral artery angiogram INDICATION: Chest discomfort and abnormal myocardial perfusion imaging stress test in this 59-year-old female patient who is known to have CAD was prior stenting of the LAD COMPLICATION: None APPROACH: Right common femoral artery LEVEL OF SEDATION: Moderate with sedation in length of 13 minutes PROCEDURE DESCRIPTION: After obtaining an informed consent, the patient was brought to cardiac canvas shop laborer. Local anesthesia was performed using lidocaine subcutaneously. The right common femoral artery was cannulated using Seldinger technique, the guidewire passed easily, following that we advanced a 6 British sheath dilator assembly, the wire and dilator were removed and sheath was flushed. Selective right and left coronary angiogram using a 6-British JR4 and JL catheters. Following that we did left heart catheterization using 6-British pigtail catheter. The procedure was completed there was no complication. SELECTIVE CORONARY ANGIOGRAM: The right coronary artery: Large caliber vessel and a dominant vessel. The RCA has mild disease in the proximal portion and midportion with no high-grade stenosis. Also there was mild disease distally Left main: Is angiographically normal. Bifurcates into an LCx and LAD The left circumflex: Large caliber vessel and codominant vessel. The LCx proximally has mild disease only. The left anterior descending artery: Large caliber vessel and the LAD is a stented in the midportion was patent stent. The LAD gives rise into a large diagonal branch which appeared to be angiographically normal HEMODYNAMICS: LVEDP was 13 mmHg was no significant gradient across aortic valve CONCLUSION: 1. Patent stent in the LAD 2. Mild to moderate nonobstructive disease involving the right coronary artery 3. Normal left-sided filling pressure POSTPROCEDURE MANAGEMENT: Medical treatment and follow-up with the patient
[2022-09-20 17:53] VITALS: RESP 16
[2022-09-20 17:59] VITALS: BP 105/52; PULSE 68
== END ==
LOC: CATHCVL 08:44
PROVIDERS: ATTEND Internal Medicine Interventional Cardiology
DX: I25.10 Atherosclerotic heart disease of native coronary artery without angina pectoris (principal); Z95.5 Presence of coronary angioplasty implant and graft; I10 Essential (primary) hypertension; I73.9 Peripheral vascular disease, unspecified; I25.9 Chronic ischemic heart disease, unspecified; J44.9 Chronic obstructive pulmonary disease, unspecified; F17.210 Nicotine dependence, cigarettes, uncomplicated; I65.23 Occlusion and stenosis of bilateral carotid arteries; E78.2 Mixed hyperlipidemia; I77.1 Stricture of artery; E11.9 Type 2 diabetes mellitus without complications; Z79.02 Long term (current) use of antithrombotics/antiplatelets; Z79.51 Long term (current) use of inhaled steroids; Z79.82 Long term (current) use of aspirin; Z79.84 Long term (current) use of oral hypoglycemic drugs; Z79.899 Other long term (current) drug therapy; Z82.49 Family history of ischemic heart disease and other diseases of the circulatory system; Z88.6 Allergy status to analgesic agent; Z88.8 Allergy status to other drugs, medicaments and biological substances
CPT/HCPCS: 94640; 93458; 76937; 99152; C1769 ×2; C1894; J2250; J2001; J1170; Q9967

== ENCOUNTER → 2022-09-23 | Outpatient (CLI) | payer MEDICARE ==
--- NOTE | 2022-09-23 11:44 | CT ---
EXAMINATION TYPE: CT soft tissue neck w con CT DLP: 298.3 mGycm, Automated exposure control for dose reduction was used. DATE OF EXAM: 09/23/2022 11:30 AM COMPARISON: CT Angio 04/10/2018 CLINICAL INDICATION:Female, 62 years old with history of I65.23; PHH, abnormal neck US TECHNIQUE: Standard enhanced CT of the neck. Axial sections with coronal and sagittal reformats were obtained. Contrast used:100 mL of Isovue 300 with IV Contrast, Oral contrast used: none. FINDINGS: Brain: Visualized portions are grossly unremarkable. Orbits: Right aphakia. The left globe is intact. Sinuses: Grossly unremarkable. Spaces of the neck: Clear and symmetric. Musculoskeletal: No acute osseous pathology. Degenerative disc disease changes of the visualized spin e are present. Lymph nodes: Multiple nonenlarged lymph nodes are seen along both anterior chains of the neck. Vascular structures: Atherosclerosis of the arterial vasculature including at the carotid bifurcation s with less than 50% stenosis bilaterally. The external carotid, and internal carotid and common gonzalez tid arteries are patent. The vertebral arteries are patent. The origins are patent. Intracranial athe rosclerosis of the carotid arteries. No evidence for aortic aneurysm or significant stenosis within t he visualized arterial vasculature in the brain. Thoracic Inlet/airway: Airway is patent. Centrilobular emphysema changes present bilaterally. Right u pper lobe in formalin or pulmonary nodule. Stable from 2019. Soft tissues/Thyroid: Thyroid and remainder of the soft tissues are unremarkable. Other: none. IMPRESSION 1. No evidence for adenopathy or mass. The patient's in office ultrasound was unavailable for compar nestor. 2. Atherosclerosis of the arterial vasculature including the carotid bifurcations with less than 50% stenosis bilaterally. 3. Stable right upper lobe 4 mm pulmonary nodule from 2019. 4. Mild emphysema.
== END | disposition home or self-care (01) ==
LOC: RADCTMAIN 10:59
PROVIDERS: ATTEND Internal Medicine Interventional Cardiology
DX: I65.23 Occlusion and stenosis of bilateral carotid arteries (principal); J43.2 Centrilobular emphysema; R91.1 Solitary pulmonary nodule; R59.9 Enlarged lymph nodes, unspecified
CPT/HCPCS: 70491; Q9967

== ENCOUNTER 2022-10-20 09:30 | Inpatient (IN) | payer MEDICARE ==
[2022-10-27] MEDS ORDERED: SODIUM CHLORIDE 0.9% 1,000 ML in EMPTY BAG 1 BAG IV ONE (05:48)
[2022-10-27] MEDS ORDERED: NITROGLYCERIN SL TABS 0.4 MG TAB SUBLINGUAL PRN (05:48)
[2022-10-27] MEDS ORDERED: ALPRAZolam 0.25 MG TAB PO PRN (05:48)
[2022-10-27] MEDS ORDERED: CLOPIDOGREL 75 MG TAB PO PRN (05:48)
[2022-10-27] MEDS ORDERED: ASPIRIN 325 MG TAB PO PRN (05:48)
[2022-10-27] MEDS ORDERED: ALPRAZolam 0.5 MG TAB PO PRN (05:48)
[2022-10-27] MEDS ORDERED: SODIUM CHLORIDE 0.9% 1,000 ML IV ONE (06:56)
[2022-10-27 07:14] LABS: Glucose,Whole Blood 92 mg/dL (70-110)
[2022-10-27] MEDS ORDERED: RX INFO: IV CONTRAST WAS GIVEN 1 EACH MISC MISCELLANE PRN (09:00)
[2022-10-27] MEDS ORDERED: LIDOCAINE 1% INJ 10MG/ML (20 ML MDV) ONE (11:17)
[2022-10-27] MEDS ORDERED: LIDOCAINE 1% INJ 10MG/ML (20 ML MDV) SQ ONE (11:19)
[2022-10-27] MEDS: HEPARIN SODIUM 1,000 UN/ML (10ML VL) IV ONE ×3 (11:35→12:18)
[2022-10-27] MEDS ORDERED: CLOPIDOGREL 75 MG TAB ONE (12:01)
[2022-10-27] MEDS ORDERED: CLOPIDOGREL 75 MG TAB PO ONE (12:06)
[2022-10-27] MEDS ORDERED: IOPAMIDOL-250 100ML BTL INTRAARTER ONE (12:06)
[2022-10-27] MEDS ORDERED: fentaNYL (PF) 50 MCG/ML 2 ML AMP ONE (12:13)
[2022-10-27] MEDS ORDERED: fentaNYL (PF) 50 MCG/ML 2 ML AMP IVP ONE (12:18)
[2022-10-27] MEDS ORDERED: MAG HYDROX/AL HYDROX/SIMETH 30 ML CUP PO PRN (12:19)
[2022-10-27] MEDS ORDERED: ATROPINE SULFATE 0.1 MG/ML 10ML SYRINGE IV PRN (12:19)
--- NOTE | 2022-10-27 12:29 | P.PCN ---
Date of Procedure: 10/27/22 Operative Findings: Carotid artery stenting report Performing physician Karthik Vale M.D. Procedure performed 1. An aortic arch angiogram 2. Selective left carotid angiogram 3. Gradient measurement across the left common carotid artery 4. Successful stenting of the left common carotid artery using 6.0 x 29 mm Omnilink balloon expandable stent with an excellent angiographic results 5. An aortic arch angiogram 6. Right common femoral artery angiogram 7. Ultrasound-guided access of the right common femoral artery Indication This is a 62-year-old female patient was carotid atherosclerosis who underwent recently carotid duplex study and that revealed critical disease involving the left carotid artery. She is known to have carotid atherosclerosis and she underwent in the past left carotid endarterectomy. She underwent a CTA which revealed intermediate to severe left carotid disease. Because there was discrepancy between the duplex and a CTA we brought the patient to undergo an angiogram Approach Right common femoral artery Complication None Level of sedation The procedure was performed with no sedation. The procedure length was 48 minutes Procedure description After obtaining an informed consent the patient was brought to the cardiac cathode washer. The right common femoral artery was cannulated using puncture technique under ultrasound guidance and the micropuncture wire passed easily then I placed a 6-Citizen [place] sheath 90 cm shuttle sheath at the right common femoral artery after the artery was dilated using 6-Citizen [place] dilator. At that point I did an aortic arch angiogram using 5-Citizen [place] pigtail catheter which was initially placed at the level of the aortic root then after connecting the catheter into a tube being we did an aortic arch angiogram using a poor injection under digital subtraction. The aortic arch showed heavily calcified arch was no aneurysmal dilation. The aortic arch angiogram also revealed what it seems to be intermediate to severe disease involving heavily calcified ostial left common carotid artery. At that point I decided to do gradient measurement across the left common carotid artery. I did wire the left common carotid artery using a stiff 035 Glidewire. Please note that anticoagulation at that point was initiated before advancing the wire. The ACT monitoring was also performed. After that I did advanced an 035 glide catheter over the 035 Glidewire to the proximal portion of the left common carotid artery were I did a gradient measurement across the ostium and that came in to be about 20 mmHg. At that point I decided to pursue stenting of the left common carotid artery. I did rewire the left common carotid artery again using 035 stiff Glidewire. Predilatation was performed using 5 mm balloon before I deployed a 6 mm x 29 mm stent where the stent was positioned under fluoroscopy guidance and deployed under fluoroscopy guidance. Postdilatation and flaring of the ostium was performed using 6 mm balloon. Final angiogram showed good angiographic results and the procedure was completed with no complication. Postprocedure management 1. Dual antiplatelet therapy 2. Aggressive cholesterol control 3. Risk factors modification 4. Follow-up with the patient
--- NOTE | 2022-10-27 13:41 | IR ---
EXAMINATION TYPE: IR stent intravas non coronary DATE OF EXAM: 10/27/2022 COMPARISON: NONE HISTORY: Left carotid stenosis, 18.9 minutes fluoroscopy time, total DAP 14.8 Gycm2. Fluoroscopy was provided to the referring clinician.
[2022-10-27] MEDS: levETIRAcetam 500 MG TAB PO SCH ×2 (17:39→21:14)
[2022-10-27] MEDS: GABAPENTIN 300 MG CAP PO SCH ×2 (17:39→21:14)
[2022-10-27] MEDS: SODIUM CHLORIDE 0.9% 1,000 ML IV SCH (17:40)
[2022-10-27] MEDS ORDERED: ATORVASTATIN 40 MG TAB PO SCH ×2 (21:00)
[2022-10-27] MEDS ORDERED: DOXEPIN 10 MG CAP PO SCH (21:00)
[2022-10-28] MEDS: SODIUM CHLORIDE 0.9% 1,000 ML IV SCH (02:58)
[2022-10-28] MEDS ORDERED: LEVOTHYROXINE 100 MCG TAB PO SCH (06:30)
[2022-10-28] MEDS ORDERED: SYMBICORT 160-4.5 MCG INHALER INHALATION SCH (08:00)
[2022-10-28] MEDS ORDERED: IPRATROPIUM 0.5 MG/2.5 ML NEBU INHALATION SCH (08:00)
[2022-10-28 08:16] LABS: Basophils # (A) 0.1 k/uL (0-0.2); Basophils % (A) 1 %; Eosinophils # (A) 0.4 k/uL (0-0.7); Eosinophils % (A) 4 %; HCT 42.5 % (34.0-46.0); HGB 13.5 gm/dL (11.4-16.0); Hypochromasia Slight; Lymphocytes # (A) 2.4 k/uL (1.0-4.8); Lymphocytes % (A) 27 %; MCH 31.1 pg (25.0-35.0); MCHC 31.7 g/dL (31.0-37.0); MCV 98.1 fL (80.0-100.0); Mean Platelet Volume 7.3; Monocytes # (A) 0.7 k/uL (0-1.0); Monocytes % (A) 7 %; Neutrophils # (A) 5.2 k/uL (1.3-7.7); Neutrophils % (A) 58 %; Platelet Count 235 k/uL (150-450); RBC 4.33 m/uL (3.80-5.40); RDW 14.5 % (11.5-15.5); WBC 8.9 k/uL (3.8-10.6)
--- NOTE | 2022-10-28 08:30 | P.DS ---
Providers Date of admission: 10/27/22 06:54 Attending physician: Karthik Vale Primary care physician: Jose F Mcwilliams [facility] Course: This is a 62-year-old female patient was underwent yesterday stenting of the left common carotid artery She was seen and evaluated this morning. She is asymptomatic. She is hemodynamically stable. The patient is going to be discharged home on dual antiplatelet therapy as well as a statin and I will follow-up with the patient next week in the office Plan - Discharge Summary Discharge Rx Participant: No New Discharge Prescriptions: New Clopidogrel [Plavix] 75 mg PO DAILY #90 tablet Continue Escitalopram [Lexapro] 20 mg PO QAM Nitroglycerin Sl Tabs [Nitrostat] 0.4 mg SL Q5M PRN PRN Reason: Chest Pain Doxepin [SINEquan] 10 mg PO HS Ibuprofen [Motrin] 400 mg PO Q6HR PRN PRN Reason: Pain Brezpri 2 puff INHALATION QAM Aspirin 81 mg PO QAM Levothyroxine Sodium 200 mcg PO QAM Gabapentin 600 mg PO TID cloNIDine HCL 0.2 mg PO BID Ipratropium-Albuterol Nebulize [Duoneb 0.5 mg-3 mg/3 ml Soln] 3 mg INHALATION RT-BID Buprenorphine HCl/Naloxone HCl [Zubsolv 2.9-0.71 mg Tablet Sl] 1 tab SUBLINGUAL QAM levETIRAcetam [Keppra] 1,000 mg PO TID #180 tab Atorvastatin [Lipitor] 40 mg PO HS #30 tab Discharge Medication List Escitalopram [Lexapro] 20 mg PO QAM 11/28/17 [History] Levothyroxine Sodium 200 mcg PO QAM 08/20/20 [History] Nitroglycerin Sl Tabs [Nitrostat] 0.4 mg SL Q5M PRN 08/20/20 [History] Gabapentin 600 mg PO TID 06/18/21 [History] cloNIDine HCL 0.2 mg PO BID 08/06/21 [History] Doxepin [SINEquan] 10 mg PO HS 02/25/22 [History] Ipratropium-Albuterol Nebulize [Duoneb 0.5 mg-3 mg/3 ml Soln] 3 mg INHALATION RT-BID 04/11/22 [History] Buprenorphine HCl/Naloxone HCl [Zubsolv 2.9-0.71 mg Tablet Sl] 1 tab SUBLINGUAL QAM 06/02/22 [History] levETIRAcetam [Keppra] 1,000 mg PO TID #180 tab 06/04/22 [Rx] Atorvastatin [Lipitor] 40 mg PO HS #30 tab 06/21/22 [Rx] Ibuprofen [Motrin] 400 mg PO Q6HR PRN 09/20/22 [History] Aspirin 81 mg PO QAM 10/14/22 [History] Brezpri 2 puff INHALATION QAM 10/14/22 [History] Clopidogrel [Plavix] 75 mg PO DAILY #90 tablet 10/28/22 [Rx] Follow up Appointment(s)/Referral(s): Karthik Vale MD [STAFF PHYSICIAN] - 1 Week Patient Instructions/Handouts: Carotid Artery Disease (DC), Moderate Sedation (DC), Carotid Artery Stent Placement (DC) Activity/Diet/Wound Care/Special Instructions: *NO LIFTING, PUSHING, OR PULLING ANYTHING OVER 5 POUNDS FOR 5 DAYS *NO DRIVING FOR 3 DAYS *YOU CAN REMOVE YOUR DRESSING TOMORROW AND YOU CAN SHOWER AT THAT TIME - DO NOT SUBMERSE YOUR PUNCTURE SITE IN WATER FOR A FEW DAYS TO PREVENT INFECTION - SO NO TUB BATHS, POOLS, HOT TUBS, DISHES....ETC *ANY SIGNS OF BLEEDING (HARDNESS, SWELLING, OR EXCESSIVE BRUISING) HOLD DIRECT PRESSURE ON YOUR PUNCTURE SITE AND COME TO THE NEAREST EMERGENCY ROOM TO GET YOUR PUNCTURE SITE LOOKED AT - DO NOT DRIVE YOURSELF! EITHER CALL EMS OR HAVE SOMEONE DRIVE YOU!
[2022-10-28] MEDS: GABAPENTIN 300 MG CAP PO SCH (08:36)
[2022-10-28] MEDS: levETIRAcetam 500 MG TAB PO SCH (08:37)
[2022-10-28 08:41] LABS: African American GFR (CKD) 76 (>60 ml/min/1.73 sqM); Anion Gap 8 mmol/L; Blood Urea Nitrogen 14 mg/dL (7-17); Calcium 8.6 mg/dL (8.4-10.2); Carbon Dioxide 22 mmol/L (22-30); Chloride 107 mmol/L (98-107); Glucose 86 mg/dL (74-99); Non-African American GFR(CKD) 66 (>60 ml/min/1.73 sqM); Potassium 4.7 mmol/L (3.5-5.1); Sodium 137 mmol/L (137-145)
[2022-10-28] MEDS ORDERED: ESCITALOPRAM 20 MG TAB PO SCH (09:00)
[2022-10-28] MEDS ORDERED: ASPIRIN 81 MG PO SCH (09:00)
[2022-10-28] MEDS ORDERED: CLOPIDOGREL 75 MG TAB PO SCH (09:00)
[2022-10-28 09:52] VITALS: BP 119/65; PULSE 90; RESP 18; TEMP 98.6
== END 2022-10-28 10:55 | disposition home or self-care (01) | DRG 36 ==
LOC: 2ORMAIN 10-27 06:54 → 3SCARD 10-27 12:46
PROVIDERS: ADMIT Internal Medicine Interventional Cardiology; ATTEND Internal Medicine Interventional Cardiology
PROC: B41F1ZZ Fluoroscopy of Right Lower Extremity Arteries using Low Osmolar Contrast (ICD-10-PCS; 2022-10-27)
PROC: B3141ZZ Fluoroscopy of Left Common Carotid Artery using Low Osmolar Contrast (ICD-10-PCS; 2022-10-27)
PROC: B3101ZZ Fluoroscopy of Thoracic Aorta using Low Osmolar Contrast (ICD-10-PCS; 2022-10-27)
PROC: 037J3DZ Dilation of Left Common Carotid Artery with Intraluminal Device, Percutaneous Approach (ICD-10-PCS; principal; 2022-10-27 09:40)
DX: I65.22 Occlusion and stenosis of left carotid artery (principal); E11.51 Type 2 diabetes mellitus with diabetic peripheral angiopathy without gangrene; I10 Essential (primary) hypertension; I25.10 Atherosclerotic heart disease of native coronary artery without angina pectoris; F17.210 Nicotine dependence, cigarettes, uncomplicated; I27.20 Pulmonary hypertension, unspecified; E78.2 Mixed hyperlipidemia; Z88.6 Allergy status to analgesic agent; Z88.8 Allergy status to other drugs, medicaments and biological substances; Z79.84 Long term (current) use of oral hypoglycemic drugs; Z79.899 Other long term (current) drug therapy; Z79.82 Long term (current) use of aspirin
CPT/HCPCS: 37216; 80048; 85025

== ENCOUNTER 2022-10-21 14:32 | Emergency (ER) | payer MEDICARE ==
[2022-10-21 14:37] LABS: Glucose,Whole Blood 67 mg/dL (70-110)
[2022-10-21] MEDS ORDERED: SODIUM CHLORIDE 0.9% 1,000 ML IV STA (14:44)
[2022-10-21 14:56] LABS: Basophils # (A) 0.1 k/uL (0-0.2); Basophils % (A) 1 %; Eosinophils # (A) 0.1 k/uL (0-0.7); Eosinophils % (A) 1 %; HCT 44.8 % (34.0-46.0); Lymphocytes # (A) 3.3 k/uL (1.0-4.8); Lymphocytes % (A) 32 %; MCH 31.2 pg (25.0-35.0); MCHC 33.4 g/dL (31.0-37.0); MCV 93.2 fL (80.0-100.0); Mean Platelet Volume 7.3; Monocytes # (A) 0.7 k/uL (0-1.0); Monocytes % (A) 6 %; Neutrophils # (A) 5.9 k/uL (1.3-7.7); Neutrophils % (A) 57 %; Platelet Count 278 k/uL (150-450); RDW 14.6 % (11.5-15.5); WBC 10.3 k/uL (3.8-10.6)
--- NOTE | 2022-10-21 15:26 | ED ---
General Adult HPI - General Chief complaint: Seizure Stated complaint: seizure Time Seen by Provider: 10/21/22 14:34 Source: patient, EMS Mode of arrival: EMS Limitations: no limitations - History of Present Illness Initial comments: Dictation was produced using [employer] dictation software. please excuse any grammatical, word or spelling errors. Chief Complaint: 62-year-old female presents emergency department with seizures History of Present Illness: To 62-year-old female she presents via EMS for seizures. Patient has a history of seizure. She was in the car passenger seat. They were traveling to go somewhere when all of a sudden she began having seizures. She states that her seizures are her arm twitching. States that she talked his seizure the whole time. Patient sees neurologist and takes Keppra. Patient has no other complaints. States that she's been under some stress recently. No other complaints. The ROS documented in this emergency department record has been reviewed and confirmed by me. Those systems with pertinent positive or negative responses have been documented in the HPI. All other systems are other negative and/or noncontributory. - Related Data Home Medications Medication Instructions Recorded Confirmed Escitalopram [Lexapro] 20 mg PO QAM 11/28/17 10/19/22 Levothyroxine Sodium 200 mcg PO QAM 08/20/20 10/19/22 Nitroglycerin Sl Tabs [Nitrostat] 0.4 mg SL Q5M PRN 08/20/20 10/19/22 Gabapentin 600 mg PO TID 06/18/21 10/19/22 cloNIDine HCL 0.2 mg PO BID 08/06/21 10/19/22 Doxepin [SINEquan] 10 mg PO HS 02/25/22 10/19/22 Ipratropium-Albuterol Nebulize 3 mg INHALATION RT-BID 04/11/22 10/19/22 [Duoneb 0.5 mg-3 mg/3 ml Soln] Buprenorphine HCl/Naloxone HCl 1 tab SUBLINGUAL QAM 06/02/22 10/19/22 [Zubsolv 2.9-0.71 mg Tablet Sl] Ibuprofen [Motrin] 400 mg PO Q6HR PRN 09/20/22 10/19/22 Aspirin 81 mg PO QAM 10/14/22 10/19/22 Brezpri 2 puff INHALATION QAM 10/14/22 10/19/22 Previous Rx's Medication Instructions Recorded levETIRAcetam [Keppra] 1,000 mg PO TID #180 tab 06/04/22 Atorvastatin [Lipitor] 40 mg PO HS #30 tab 06/21/22 Allergies Allergy/AdvReac Type Severity Reaction Status Date / Time No Known Allergies Allergy Verified 10/21/22 14:43 Review of Systems ROS Statement: Those systems with pertinent positive or pertinent negative responses have been documented in the HPI. ROS Other: All systems not noted in ROS Statement are negative. Past Medical History Past Medical History: Asthma, Coronary Artery Disease (CAD), Chest Pain / Angina, COPD, GERD/Reflux, Hyperlipidemia, Hypertension, Myocardial Infarction (CO), Respiratory Disorder, Seizure Disorder, Thyroid Disorder, Vascular Disorder Additional Past Medical History / Comment(s): PRN oxygen use, 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 carotid blockage, PAD, vertigo at times. Last Myocardial Infarction Date:: 06/2022 History of Any Multi-Drug Resistant Organisms: None Reported Past Surgical History: Heart Catheterization, Heart Catheterization With Stent, Hysterectomy, Joint Replacement, Orthopedic Surgery Additional Past Surgical History / Comment(s): RT ROTATOR CUFF REPAIR, R total knee, CYSTS REMOVED FROM UNDER ARMS AND HANDS, arch studies, L caratid endartectomy, 4 cardiac stents, several peripheral stents, 07/18/18 left subclavian stent, arch studies. Past Anesthesia/Blood Transfusion Reactions: No Reported Reaction Additional Past Anesthesia/Blood Transfusion Reaction / Comment(s): Pt states that she is unable to go under general anesthesia per her sr. pricing analyst due to low functioning lungs. Pt has never received blood. Date of Last Stent Placement:: Nov 2017 Past Psychological History: Anxiety, Depression Smoking Status: Current every day smoker - Past Family History Mother Family Medical History: Cancer Sister(s) Family Medical History: Cancer General Exam - General Exam Comments Initial Comments: PHYSICAL EXAM: General Impression: Alert and oriented x3, not in acute distress HEENT: Normocephalic atraumatic, extra-ocular movements intact, pupils equal and reactive to light bilaterally, mucous membranes moist. Cardiovascular: Heart regular rate and rhythm Chest: Able to complete full sentences, no retractions, no tachypnea Abdomen: abdomen soft, non-tender, non-distended, no organomegaly Musculoskeletal: Pulses present and equal in all extremities, no peripheral edema Motor: no focal deficits noted Neurological: CN II-XII grossly intact, no focal motor or sensory deficits noted Skin: Intact with no visualized rashes Psych: Normal affect and mood Limitations: no limitations Course Vital Signs 10/21/22 14:35 Temperature 98.3 F Pulse Rate 98 Respiratory 20 Rate Blood Pressure 102/74 O2 Sat by Pulse 96 Oximetry - Reevaluation(s) Reevaluation #1: 10/21/22 15:25 Approximately 3:00 PM nurse notified me that they're concerned patient having a seizure. She was alert and oriented. She had shaking of her extremities. She was however alert and asking me if I was going to give her anything to stop the shaking. Patient was given painful stimuli to her left lower extremity and immediately the shaking stopped. After several seconds she began shaking again. She was told that she was not getting Ativan for this. EKG Findings - EKG Comments: EKG Findings:: My EKG interpretation: Ventricular rate 80, sinus rhythm, OR interval 150, QRS 97, QTC 422. No OR prolongation, no QTC prolongation, no ST or T-wave changes noted. Overall, this EKG is unremarkable Medical Decision Making - Medical Decision Making Was pt. sent in by a medical professional or institution (BLAIR Lopez, SR. VENDOR MANAGEMENT ASSOCIATE, urgent care, hospital, or [facility]...) When possible be specific @ -No Did you speak to anyone other than the patient for history (EMS, parent, family, police, friend...)? What history was obtained from this source @ -No Did you review nursing and triage notes (agree or disagree)? Why? @ -I reviewed and agree with nursing and triage notes Were old charts reviewed (outside hosp., previous admission, EMS record, old EKG, old radiological studies, urgent care reports/EKG's, [facility] records)? Report findings @ -No old charts were reviewed Differential Diagnosis (chest pain, altered mental status, abdominal pain women, abdominal pain men, vaginal bleeding, musculoskeletal, weakness, fever, dyspnea, syncope, headache, dizziness, GI bleed, back pain, seizure, CVA, palpatations, mental health)? @ -Differential Seizure: Recurrent seizure disorder, febrile seizure, alcohol withdrawal, stimulants, meningitis, encephalitis, intercranial hemorrhage, intracranial tumor, stroke, eclampsia, thyrotoxicosis, hypocalcemia, hyponatremia, hypernatremia, hypomagnes emia, psychogenic, this is not meant to be an all-inclusive list. EKG interpreted by me (3pts min.). @ -None done X-rays interpreted by me (1pt min.). @ -None done CT interpreted by me (1pt min.). @ -None done U/S interpreted by me (1pt. min.). @ -None done What testing was considered but not performed or refused? (CT, X-rays, U/S, labs)? Why? @ -None What meds were considered but not given or refused? Why? @ -None Did you discuss the management of the patient with other professionals (professionals i.e. , PA, SR. VENDOR MANAGEMENT ASSOCIATE, lab, RT, psych nurse, licensed social worker, flue gas analyst, teacher, combat systems officer, supervisor case loading)? Give summary @ -No Was smoking cessation discussed for >3mins.? @ -No Was critical care preformed (if so, how long)? @ -No Were there social determinants of health that impacted care today? How? (Homelessness, low income, unemployed, alcoholism, drug addiction, transportation, low edu. Level, literacy, decrease access to med. care, residential, rehab)? @ -No Was there de-escalation of care discussed even if they declined (Discuss DNR or withdrawal of care, Hospice)? DNR status @ -No What co-morbidities impacted this encounter? (DM, HTN, Smoking, COPD, CAD, Cancer, CVA, ARF, Chemo, Hep., AIDS, mental health diagnosis, sleep apnea, morbid obesity)? @ -None Was patient admitted / discharged? Hospital course, mention meds given and route, prescriptions, significant lab abnormalities, going to OR and other pertinent info. @ -62-year-old female presents emergency department for tremors. States that she's having seizures. She is not having seizures. Vital signs stable. Laboratory evaluation shows mild hyperglycemia. Patient treated with oral intake she states that she eats only one meal a day. She is told to monitor her sugars at home. She does have access to glucometer. Undiagnosed new problem with uncertain prognosis? @ -No Drug Therapy requiring intensive monitoring for toxicity (Heparin, Nitro, Insulin, Cardizem)? @ -No Were any procedures done? @ -No Diagnosis/symptom? Acute, or Chronic, or Acute on Chronic? Uncomplicated (without systemic symptoms) or Complicated (systemic symptoms)? @ -Hypoglycemia, non-epileptogenic seizures Side effects of treatment? @ -No Exacerbation, Progression, or Severe Exacerbation? @ -No Poses a threat to life or bodily function? How? (Chest pain, USA, CO, pneumonia, PE, COPD, DKA, ARF, appy, cholecystitis, CVA, Diverticulitis, Homicidal, Suicidal, threat to staff... and all critical care pts) @ -No - Lab Data Result diagrams: 10/21/22 14:45 10/21/22 14:45 Lab Results 10/21/22 10/21/22 10/21/22 Range/Units 14:36 14:45 14:45 WBC 10.3 (3.8-10.6) k/uL RBC 4.80 (3.80-5.40) m/uL Hgb 15.0 (11.4-16.0) gm/dL Hct 44.8 (34.0-46.0) % MCV 93.2 (80.0-100.0) fL MCH 31.2 (25.0-35.0) pg MCHC 33.4 (31.0-37.0) g/dL RDW 14.6 (11.5-15.5) % Plt Count 278 (150-450) k/uL MPV 7.3 Neutrophils % 57 % Lymphocytes % 32 % Monocytes % 6 % Eosinophils % 1 % Basophils % 1 % Neutrophils # 5.9 (1.3-7.7) k/uL Lymphocytes # 3.3 (1.0-4.8) k/uL Monocytes # 0.7 (0-1.0) k/uL Eosinophils # 0.1 (0-0.7) k/uL Basophils # 0.1 (0-0.2) k/uL Sodium 137 (137-145) mmol/L Potassium 4.2 (3.5-5.1) mmol/L Chloride 103 (98-107) mmol/L Carbon Dioxide 23 (22-30) mmol/L Anion Gap 11 mmol/L BUN 13 (7-17) mg/dL Creatinine 1.30 H (0.52-1.04) mg/dL Est GFR (CKD-EPI)AfAm 51 (>60 ml/min/1.73 sqM) Est GFR (CKD-EPI)NonAf 44 (>60 ml/min/1.73 sqM) Glucose 64 L (74-99) mg/dL POC Glucose (mg/dL) 67 L (70-110) mg/dL POC Glu Bottom Painter ID Ger Brown Calcium 8.9 (8.4-10.2) mg/dL Magnesium 2.0 (1.6-2.3) mg/dL 10/21/22 Range/Units 16:24 WBC (3.8-10.6) k/uL RBC (3.80-5.40) m/uL Hgb (11.4-16.0) gm/dL Hct (34.0-46.0) % MCV (80.0-100.0) fL MCH (25.0-35.0) pg MCHC (31.0-37.0) g/dL RDW (11.5-15.5) % Plt Count (150-450) k/uL MPV Neutrophils % % Lymphocytes % % Monocytes % % Eosinophils % % Basophils % % Neutrophils # (1.3-7.7) k/uL Lymphocytes # (1.0-4.8) k/uL Monocytes # (0-1.0) k/uL Eosinophils # (0-0.7) k/uL Basophils # (0-0.2) k/uL Sodium (137-145) mmol/L Potassium (3.5-5.1) mmol/L Chloride (98-107) mmol/L Carbon Dioxide (22-30) mmol/L Anion Gap mmol/L BUN (7-17) mg/dL Creatinine (0.52-1.04) mg/dL Est GFR (CKD-EPI)AfAm (>60 ml/min/1.73 sqM) Est GFR (CKD-EPI)NonAf (>60 ml/min/1.73 sqM) Glucose (74-99) mg/dL POC Glucose (mg/dL) 120 H (70-110) mg/dL POC Glu Bottom Painter ID Lorraine Deandra Calcium (8.4-10.2) mg/dL Magnesium (1.6-2.3) mg/dL Disposition Clinical Impression: Occasional tremors Disposition: HOME SELF-CARE Condition: Good Instructions (If sedation given, give patient instructions): Nonepileptic Seizures (ED) Is patient prescribed a controlled substance at d/c from ED?: No Referrals: Jose F Mcwilliams MD [Primary Care Provider] - 1-2 days Time of Disposition: 17:29
[2022-10-21 15:41] LABS: African American GFR (CKD) 51 (>60 ml/min/1.73 sqM); Anion Gap 11 mmol/L; Blood Urea Nitrogen 13 mg/dL (7-17); Calcium 8.9 mg/dL (8.4-10.2); Carbon Dioxide 23 mmol/L (22-30); Chloride 103 mmol/L (98-107); Glucose 64 mg/dL (74-99); Non-African American GFR(CKD) 44 (>60 ml/min/1.73 sqM); Potassium 4.2 mmol/L (3.5-5.1); Sodium 137 mmol/L (137-145)
[2022-10-21 16:43] LABS: Glucose,Whole Blood 120 mg/dL (70-110)
[2022-10-21 18:01] VITALS: BP 102/48; PULSE 79; RESP 18; TEMP 98
== END 2022-10-21 18:07 | disposition home or self-care (01) ==
LOC: EC 14:32
DX: R25.1 Tremor, unspecified (principal); E16.2 Hypoglycemia, unspecified; G40.909 Epilepsy, unspecified, not intractable, without status epilepticus; I25.10 Atherosclerotic heart disease of native coronary artery without angina pectoris; J44.9 Chronic obstructive pulmonary disease, unspecified; I25.2 Old myocardial infarction; I10 Essential (primary) hypertension; E78.5 Hyperlipidemia, unspecified; E07.9 Disorder of thyroid, unspecified; F32.A Depression, unspecified; F41.9 Anxiety disorder, unspecified; F17.200 Nicotine dependence, unspecified, uncomplicated; Z79.82 Long term (current) use of aspirin; Z79.890 Hormone replacement therapy; Z79.899 Other long term (current) drug therapy
CPT/HCPCS: 36415; 80048; 80177; 83735; 85025; 93005; 96360; 99284

== ENCOUNTER 2023-02-03 10:18 | Inpatient (IN) | payer MEDICARE ==
[2023-02-03] MEDS ORDERED: methylPREDNISolone SOD SUCCI 125 MG/2 ML VIAL IV STA (10:45)
[2023-02-03] MEDS ORDERED: ALBUTEROL NEBULIZED 2.5 MG/3 ML INHALATION STA (10:45)
[2023-02-03] MEDS ORDERED: IPRATROPIUM 0.5 MG/2.5 ML NEBU INHALATION STA (10:45)
[2023-02-03] MEDS ORDERED: SODIUM CHLORIDE 0.9% 500 ML 500 ML IV ONE (10:45)
[2023-02-03 11:02] LABS: Basophils # (A) 0.1 k/uL (0-0.2); Basophils % (A) 0 %; Eosinophils # (A) 0.1 k/uL (0-0.7); Eosinophils % (A) 0 %; HCT 41.8 % (34.0-46.0); HGB 13.4 gm/dL (11.4-16.0); Hypochromasia Slight; Lymphocytes # (A) 1.1 k/uL (1.0-4.8); Lymphocytes % (A) 6 %; MCH 30.5 pg (25.0-35.0); MCV 95.1 fL (80.0-100.0); Mean Platelet Volume 7.3; Monocytes # (A) 0.8 k/uL (0-1.0); Monocytes % (A) 4 %; Neutrophils # (A) 15.9 k/uL (1.3-7.7); Neutrophils % (A) 88 %; Platelet Count 287 k/uL (150-450); RDW 14.9 % (11.5-15.5); WBC 18.1 k/uL (3.8-10.6)
[2023-02-03 11:07] LABS: VBG PH 7.29 (7.31-7.41)
[2023-02-03 11:11] LABS: INR 0.9 (<1.2); Partial Thromboplastin Time 25.7 sec (22.0-30.0); Prothrombin Time 10.3 sec (10.0-12.5)
[2023-02-03] MEDS ORDERED: cefTRIAXone IN SWFI 1,000 MG/10 ML SYRINGE IVP STA (11:18)
[2023-02-03] MEDS ORDERED: SODIUM CHLORIDE 0.9% 1,000 ML IV ONE (11:22)
--- NOTE | 2023-02-03 11:34 | XR ---
EXAMINATION TYPE: XR chest 1V portable DATE OF EXAM: 02/03/2023 COMPARISON: 06/17/2022 INDICATION: Short of breath acute mental status changes TECHNIQUE: Single frontal view of the chest is obtained. FINDINGS: The heart size is normal. The pulmonary vasculature is normal. The lungs are clear. IMPRESSION: 1. No acute pulmonary process.
--- NOTE | 2023-02-03 11:38 | ED ---
General Adult HPI - General Chief complaint: Shortness of Breath Stated complaint: Altered Mental Status, ROLAND Time Seen by Provider: 02/03/23 10:40 Source: patient, family, RN notes reviewed, old records reviewed Mode of arrival: ambulatory Limitations: altered mental status - History of Present Illness Initial comments: This is a 62-year-old female who has had a history of COPD and continues to smoke. Patient is on 2 L of oxygen as needed at home. According to the daughter she's been having hard time breathing lately and getting progressively worse and over the last day or 2 she started to become altered mentally. Patient is also had a cough with some sputum production. Patient has had no contact with adequate that they noted patient denies chest pain or palpitations. Patient denies abdominal pain. Patient denies headache patient denies numbness weakness. - Related Data Home Medications Medication Instructions Recorded Confirmed Escitalopram [Lexapro] 20 mg PO QAM 11/28/17 10/27/22 Levothyroxine Sodium 200 mcg PO QAM 08/20/20 10/27/22 Nitroglycerin Sl Tabs [Nitrostat] 0.4 mg SL Q5M PRN 08/20/20 10/19/22 Gabapentin 600 mg PO TID 06/18/21 10/27/22 cloNIDine HCL 0.2 mg PO BID 08/06/21 10/27/22 Doxepin [SINEquan] 10 mg PO HS 02/25/22 10/27/22 Ipratropium-Albuterol Nebulize 3 mg INHALATION RT-BID 04/11/22 10/27/22 [Duoneb 0.5 mg-3 mg/3 ml Soln] Buprenorphine HCl/Naloxone HCl 1 tab SUBLINGUAL QAM 06/02/22 10/19/22 [Zubsolv 2.9-0.71 mg Tablet Sl] Ibuprofen [Motrin] 400 mg PO Q6HR PRN 09/20/22 10/19/22 Aspirin 81 mg PO QAM 10/14/22 10/27/22 Brezpri 2 puff INHALATION QAM 10/14/22 10/27/22 Previous Rx's Medication Instructions Recorded levETIRAcetam [Keppra] 1,000 mg PO TID #180 tab 06/04/22 Atorvastatin [Lipitor] 40 mg PO HS #30 tab 06/21/22 Clopidogrel [Plavix] 75 mg PO DAILY #90 tablet 10/28/22 Allergies Allergy/AdvReac Type Severity Reaction Status Date / Time No Known Allergies Allergy Verified 02/03/23 12:38 Review of Systems ROS Statement: Those systems with pertinent positive or pertinent negative responses have been documented in the HPI. ROS Other: All systems not noted in ROS Statement are negative. 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 carotid blockage, PAD, vertigo at times. Last Myocardial Infarction Date:: 06/2022 History of Any Multi-Drug Resistant Organisms: None Reported Past Surgical History: Heart Catheterization, Heart Catheterization With Stent, Hysterectomy, Joint Replacement, Orthopedic Surgery Additional Past Surgical History / Comment(s): RT ROTATOR CUFF REPAIR, R total knee, CYSTS REMOVED FROM UNDER ARMS AND HANDS, arch studies, L caratid endartectomy, 4 cardiac stents, several peripheral stents, 07/18/18 left subclavian stent, arch studies. Past Anesthesia/Blood Transfusion Reactions: No Reported Reaction Additional Past Anesthesia/Blood Transfusion Reaction / Comment(s): Pt states that she is unable to go under general anesthesia per her marketing program coordinator due to low functioning lungs. Pt has never received blood. Date of Last Stent Placement:: Nov 2017 Past Psychological History: Anxiety, Depression Smoking Status: Current every day smoker Past Alcohol Use History: None Reported Past Drug Use History: Marijuana - Past Family History Mother Family Medical History: Cancer Sister(s) Family Medical History: Cancer General Exam - General Exam Comments Initial Comments: GENERAL: Patient is well-developed and well-nourished. Patient is nontoxic and well- hydrated and is in moderate distress. ENT: Neck is soft and supple. No significant lymphadenopathy is noted. Oropharynx is clear. Moist mucous membranes. Neck has full range of motion without eliciting any pain. EYES: The sclera were anicteric and conjunctiva were pink and moist. Extraocular movements were intact and pupils were equal round and reactive to light. Eyelids were unremarkable. PULMONARY: Decreased breath sounds with expiratory wheezing. CARDIOVASCULAR: There is a regular rate and rhythm without any murmurs gallops or rubs. ABDOMEN: Soft and nontender with normal bowel sounds. SKIN: Skin is clear with no lesions or rashes and otherwise unremarkable. NEUROLOGIC: Patient is alert and oriented 2. Cranial nerves II through XII are grossly intact. Motor and sensory are also intact. Normal speech, volume and content. Symmetrical smile. MUSCULOSKELETAL: Normal extremities with adequate strength and full range of motion. No lower extremity swelling or edema. No calf tenderness. LYMPHATICS: No significant lymphadenopathy is noted PSYCHIATRIC: Normal psychiatric evaluation. Limitations: altered mental status Course Vital Signs 02/03/23 02/03/23 02/03/23 10:24 10:42 11:00 Temperature 99.0 F Pulse Rate 98 91 91 Respiratory 24 30 H 24 Rate Blood Pressure 80/54 85/52 91/80 O2 Sat by Pulse 67 L 95 93 L Oximetry Fraction of Inspired Oxygen (FIO2) 02/03/23 02/03/23 02/03/23 11:13 11:14 11:15 Temperature Pulse Rate 81 Respiratory Rate Blood Pressure O2 Sat by Pulse Oximetry Fraction of 30 30 Inspired Oxygen (FIO2) 02/03/23 02/03/23 02/03/23 11:23 11:32 12:00 Temperature Pulse Rate 84 61 89 Respiratory 18 18 Rate Blood Pressure 76/48 89/40 O2 Sat by Pulse 99 100 Oximetry Fraction of Inspired Oxygen (FIO2) 02/03/23 02/03/23 02/03/23 13:00 13:21 13:31 Temperature Pulse Rate 93 89 87 Respiratory 20 18 19 Rate Blood Pressure 86/53 80/68 67/46 O2 Sat by Pulse 94 L 94 L 95 Oximetry Fraction of Inspired Oxygen (FIO2) 02/03/23 02/03/23 02/03/23 13:44 13:57 14:09 Temperature Pulse Rate 89 85 Respiratory 18 24 Rate Blood Pressure 78/48 76/50 O2 Sat by Pulse 93 L 97 Oximetry Fraction of 30 Inspired Oxygen (FIO2) Procedures - Sepsis Sepsis Focused Exam #1 Time Sepsis Criteria Met: 13:30 (No source of infection was found however because of the COPD I considered are septic at 1330 when the pressure remained low after fluid bolus was given) Sepsis Focused Exam Date: 02/03/23 Sepsis Focused Exam Time: 14:19 Sepsis Focused Exam Complete: Yes Vital Signs & RN Notes Reviewed: Yes Capillary Refill: > 2 Seconds: Fingers Peripheral Pulses: Weak: Radial (R) Skin Color: Normal for Patient Respiratory Exam: rhonchi Cardiovascular Exam: normal rhythm Medical Decision Making - Medical Decision Making EKG is interpreted by myself. EKG shows a sinus rhythm at 91 bpm OH interval 262 QRS is 94 QT interval 358 QTC is 46. Patient's EKG shows no ST segment elevation or depression. Was pt. sent in by a medical professional or institution (, PA, FANCY WIRE DRAWER, urgent care, hospital, or fdc...) When possible be specific @ -No Did you speak to anyone other than the patient for history (EMS, parent, family, police, friend...)? What history was obtained from this source @ -Daughter gave most of the history since the patient was altered Did you review nursing and triage notes (agree or disagree)? Why? @ -I reviewed and agree with nursing and triage notes Were old charts reviewed (outside hosp., previous admission, EMS record, old EKG, old radiological studies, urgent care reports/EKG's, fdc records)? Report findings @ -I reviewed prior charts prior lab work on this patient Differential Diagnosis (chest pain, altered mental status, abdominal pain women, abdominal pain men, vaginal bleeding, weakness, fever, dyspnea, syncope, headache, dizziness, GI bleed, back pain, seizure, CVA, palpatations, mental health, musculoskeletal)? @ -Differential Dyspnea: Coronary syndrome, arrhythmia, tamponade, asthma, COPD, pulmonary embolism, pneumonia, pneumothorax, pulmonary effusion, anaphylaxis, diabetic ketoacidosis, flailed chest, pulmonary contusion, diaphragmatic rupture, anemia, dayanara romuscular, this is not meant to be an all-inclusive list. EKG interpreted by me (3pts min.). @ -As above X-rays interpreted by me (1pt min.). @ -X-ray shows no acute abnormality CT interpreted by me (1pt min.). @ -None done U/S interpreted by me (1pt. min.). @ -None done What testing was considered but not performed or refused? (CT, X-rays, U/S, labs)? Why? @ -None What meds were considered but not given or refused? Why? @ -None Did you discuss the management of the patient with other professionals (professionals i.e. Dr., PA, FANCY WIRE DRAWER, lab, RT, psych nurse, social service assistant, naval inspector, teacher, community relations officer, director case management)? Give summary @ -I spoke with Dr. Mcwilliams about this patient and he will admit the patient. Spoke with Dr. Marques he accepted the patient to the ICU Was smoking cessation discussed for >3mins.? @ -No Was critical care preformed (if so, how long)? @ -35 minutes Were there social determinants of health that impacted care today? How? (Homelessness, low income, unemployed, alcoholism, drug addiction, transportation, low edu. Level, literacy, decrease access to med. care, prison, rehab)? @ -No Was there de-escalation of care discussed even if they declined (Discuss DNR or withdrawal of care, Hospice)? DNR status @ -No What co-morbidities impacted this encounter? (DM, HTN, Smoking, COPD, CAD, Cancer, CVA, ARF, Chemo, Hep., AIDS, mental health diagnosis, sleep apnea, morbid obesity)? @ -Smoking Was patient admitted / discharged? Hospital course, mention meds given and route, prescriptions, significant lab abnormalities, going to OR and other pertinent info. @ -Patient came in slightly altered however her condition is far as her mental status goes got worse while she was in the hospital. Patient was immediately placed on BiPAP given a breathing treatment and steroids. Patient was also given antibiotics prophylactically. Patient's blood pressure was in the high 80s when she arrived and slowly went down to the patient was started on Levophed. I wanted to intubate the patient and talked to the family on at least 3 occasions about intubation and they wanted to hold off until they were able to speak with the marketing program coordinator because they stated that in the past she has been like this and not need to be intubated. Patient's ideal body weight is 47.6 kg patient did receive a liter and a half of fluid in the emergency department. Undiagnosed new problem with uncertain prognosis? @ -No Drug Therapy requiring intensive monitoring for toxicity (Heparin, Nitro, Insulin, Cardizem)? @ -No Were any procedures done? @ -No Diagnosis/symptom? @ -Altered mental status Acute, or Chronic, or Acute on Chronic? @ -Acute Uncomplicated (without systemic symptoms) or Complicated (systemic symptoms)? @ -Complicated Side effects of treatment? @ -No Exacerbation, Progression, or Severe Exacerbation? @ -Severe exacerbation Poses a threat to life or bodily function? How? (Chest pain, [place], [place], pneumonia, PE, COPD, DKA, ARF, appy, cholecystitis, CVA, Diverticulitis, Homicidal, Suicidal, threat to staff... and all critical care pts) @ -No Diagnosis/symptom? @ -Respiratory failure Acute, or Chronic, or Acute on Chronic? @ -Acute Uncomplicated (without systemic symptoms) or Complicated (systemic symptoms)? @ -Complicated Side effects of treatment? @ -none Exacerbation, Progression, or Severe Exacerbation] @ -no Poses a threat to life or bodily function? @ -Yes this can lead to hypoxia and and end organ dysfunction - Lab Data Result diagrams: 02/03/23 10:50 02/03/23 10:50 Lab Results 02/03/23 02/03/23 02/03/23 Range/Units 10:50 10:50 10:50 WBC 18.1 H (3.8-10.6) k/uL RBC 4.40 (3.80-5.40) m/uL Hgb 13.4 (11.4-16.0) gm/dL Hct 41.8 (34.0-46.0) % MCV 95.1 (80.0-100.0) fL MCH 30.5 (25.0-35.0) pg MCHC 32.0 (31.0-37.0) g/dL RDW 14.9 (11.5-15.5) % Plt Count 287 (150-450) k/uL MPV 7.3 Neutrophils % 88 % Lymphocytes % 6 % Monocytes % 4 % Eosinophils % 0 % Basophils % 0 % Neutrophils # 15.9 H (1.3-7.7) k/uL Lymphocytes # 1.1 (1.0-4.8) k/uL Monocytes # 0.8 (0-1.0) k/uL Eosinophils # 0.1 (0-0.7) k/uL Basophils # 0.1 (0-0.2) k/uL Hypochromasia Slight PT 10.3 (10.0-12.5) sec INR 0.9 (<1.2) APTT 25.7 (22.0-30.0) sec Sample Site ABG pH (7.35-7.45) ABG pCO2 (35-45) mmHg ABG pO2 (83-108) mmHg ABG HCO3 (21-25) mmol/L ABG Total CO2 (19-24) mmol/L ABG O2 Saturation (94-97) % ABG Base Excess mmol/L Juan Test VBG pH (7.31-7.41) VBG pCO2 (37-51) mmHg VBG HCO3 (24-28) mmol/L FiO2 % Sodium (137-145) mmol/L Potassium (3.5-5.1) mmol/L Chloride (98-107) mmol/L Carbon Dioxide (22-30) mmol/L Anion Gap mmol/L BUN (7-17) mg/dL Creatinine (0.52-1.04) mg/dL Est GFR (CKD-EPI)AfAm (>60 ml/min/1.73 sqM) Est GFR (CKD-EPI)NonAf (>60 ml/min/1.73 sqM) Glucose (74-99) mg/dL Plasma Lactic Acid Stepan (0.7-2.0) mmol/L Calcium (8.4-10.2) mg/dL Magnesium (1.6-2.3) mg/dL Total Bilirubin (0.2-1.3) mg/dL AST (14-36) U/L ALT (4-34) U/L Alkaline Phosphatase (38-126) U/L Troponin I (0.000-0.034) ng/mL Total Protein (6.3-8.2) g/dL Albumin (3.5-5.0) g/dL Influenza Type A (PCR) Not Detected (Not Detectd) Influenza Type B (PCR) Not Detected (Not Detectd) RSV (PCR) Not Detected (Not Detectd) SARS-CoV-2 (PCR) Not Detected (Not Detectd) 02/03/23 02/03/23 02/03/23 Range/Units 10:50 10:50 10:50 WBC (3.8-10.6) k/uL RBC (3.80-5.40) m/uL Hgb (11.4-16.0) gm/dL Hct (34.0-46.0) % MCV (80.0-100.0) fL MCH (25.0-35.0) pg MCHC (31.0-37.0) g/dL RDW (11.5-15.5) % Plt Count (150-450) k/uL MPV Neutrophils % % Lymphocytes % % Monocytes % % Eosinophils % % Basophils % % Neutrophils # (1.3-7.7) k/uL Lymphocytes # (1.0-4.8) k/uL Monocytes # (0-1.0) k/uL Eosinophils # (0-0.7) k/uL Basophils # (0-0.2) k/uL Hypochromasia PT (10.0-12.5) sec INR (<1.2) APTT (22.0-30.0) sec Sample Site ABG pH (7.35-7.45) ABG pCO2 (35-45) mmHg ABG pO2 (83-108) mmHg ABG HCO3 (21-25) mmol/L ABG Total CO2 (19-24) mmol/L ABG O2 Saturation (94-97) % ABG Base Excess mmol/L Juan Test VBG pH (7.31-7.41) VBG pCO2 (37-51) mmHg VBG HCO3 (24-28) mmol/L FiO2 % Sodium 134 L (137-145) mmol/L Potassium 4.1 (3.5-5.1) mmol/L Chloride 98 (98-107) mmol/L Carbon Dioxide 23 (22-30) mmol/L Anion Gap 13 mmol/L BUN 16 (7-17) mg/dL Creatinine 1.01 (0.52-1.04) mg/dL Est GFR (CKD-EPI)AfAm 69 (>60 ml/min/1.73 sqM) Est GFR (CKD-EPI)NonAf 60 (>60 ml/min/1.73 sqM) Glucose 107 H (74-99) mg/dL Plasma Lactic Acid Stepan 1.6 (0.7-2.0) mmol/L Calcium 8.6 (8.4-10.2) mg/dL Magnesium 2.0 (1.6-2.3) mg/dL Total Bilirubin 0.5 (0.2-1.3) mg/dL AST 64 H (14-36) U/L ALT 15 (4-34) U/L Alkaline Phosphatase 123 (38-126) U/L Troponin I 0.016 (0.000-0.034) ng/mL Total Protein 7.1 (6.3-8.2) g/dL Albumin 4.1 (3.5-5.0) g/dL Influenza Type A (PCR) (Not Detectd) Influenza Type B (PCR) (Not Detectd) RSV (PCR) (Not Detectd) SARS-CoV-2 (PCR) (Not Detectd) 02/03/23 02/03/23 02/03/23 Range/Units 10:50 13:40 14:08 WBC (3.8-10.6) k/uL RBC (3.80-5.40) m/uL Hgb (11.4-16.0) gm/dL Hct (34.0-46.0) % MCV (80.0-100.0) fL MCH (25.0-35.0) pg MCHC (31.0-37.0) g/dL RDW (11.5-15.5) % Plt Count (150-450) k/uL MPV Neutrophils % % Lymphocytes % % Monocytes % % Eosinophils % % Basophils % % Neutrophils # (1.3-7.7) k/uL Lymphocytes # (1.0-4.8) k/uL Monocytes # (0-1.0) k/uL Eosinophils # (0-0.7) k/uL Basophils # (0-0.2) k/uL Hypochromasia PT (10.0-12.5) sec INR (<1.2) APTT (22.0-30.0) sec Sample Site Left Radial ABG pH 7.27 L (7.35-7.45) ABG pCO2 56 H (35-45) mmHg ABG pO2 49 L* (83-108) mmHg ABG HCO3 26 H (21-25) mmol/L ABG Total CO2 28 H (19-24) mmol/L ABG O2 Saturation 83.1 L (94-97) % ABG Base Excess -1.1 mmol/L Juan Test Yes VBG pH 7.29 L 7.25 L (7.31-7.41) VBG pCO2 55 H 57 H (37-51) mmHg VBG HCO3 26 25 (24-28) mmol/L FiO2 30 % Sodium (137-145) mmol/L Potassium (3.5-5.1) mmol/L Chloride (98-107) mmol/L Carbon Dioxide (22-30) mmol/L Anion Gap mmol/L BUN (7-17) mg/dL Creatinine (0.52-1.04) mg/dL Est GFR (CKD-EPI)AfAm (>60 ml/min/1.73 sqM) Est GFR (CKD-EPI)NonAf (>60 ml/min/1.73 sqM) Glucose (74-99) mg/dL Plasma Lactic Acid Stepan (0.7-2.0) mmol/L Calcium (8.4-10.2) mg/dL Magnesium (1.6-2.3) mg/dL Total Bilirubin (0.2-1.3) mg/dL AST (14-36) U/L ALT (4-34) U/L Alkaline Phosphatase (38-126) U/L Troponin I (0.000-0.034) ng/mL Total Protein (6.3-8.2) g/dL Albumin (3.5-5.0) g/dL Influenza Type A (PCR) (Not Detectd) Influenza Type B (PCR) (Not Detectd) RSV (PCR) (Not Detectd) SARS-CoV-2 (PCR) (Not Detectd) Critical Care Time Critical Care Time: Yes Total Critical Care Time: 35 Disposition Clinical Impression: Respiratory failure, COPD exacerbation, Altered mental status Disposition: ADMITTED IP TO THIS HOSP Referrals: Jose F Mcwilliams MD [Primary Care Provider] - 1-2 days Time of Disposition: 14:21
[2023-02-03 11:45] LABS: ALT 15 U/L (4-34); AST 64 U/L (14-36); African American GFR (CKD) 69 (>60 ml/min/1.73 sqM); Albumin 4.1 g/dL (3.5-5.0); Alkaline Phosphatase 123 U/L (38-126); Anion Gap 13 mmol/L; Blood Urea Nitrogen 16 mg/dL (7-17); Calcium 8.6 mg/dL (8.4-10.2); Carbon Dioxide 23 mmol/L (22-30); Chloride 98 mmol/L (98-107); Glucose 107 mg/dL (74-99); Non-African American GFR(CKD) 60 (>60 ml/min/1.73 sqM); Potassium 4.1 mmol/L (3.5-5.1); Sodium 134 mmol/L (137-145); Total Bilirubin 0.5 mg/dL (0.2-1.3); Total Protein 7.1 g/dL (6.3-8.2)
[2023-02-03] MEDS ORDERED: hydrALAZINE HCL 20 MG/ML 1 ML VIAL IVP STA (12:56)
[2023-02-03 13:51] LABS: VBG PH 7.25 (7.31-7.41)
[2023-02-03] MEDS: NOREPINEPHRINE 4 MG in SODIUM CHLORIDE 0.9% 250 ML IV SCH (13:55)
[2023-02-03 14:11] LABS: ABG Base Excess -1.1 mmol/L; ABG HCO3 26 mmol/L (21-25); ABG Oxygen Saturation 83.1 % (94-97); ABG PCO2 56 mmHg (35-45); ABG PH 7.27 (7.35-7.45); ABG TCO2 28 mmol/L (19-24); Allen Test Performed? Yes
[2023-02-03 14:13] LABS: ABG PO2 49 mmHg (83-108)
[2023-02-03] MEDS ORDERED: NALOXONE 0.4 MG/ML 1 ML VIAL IV PRN (14:22)
[2023-02-03 14:28] LABS: ABG Base Excess -1.3 mmol/L; ABG HCO3 26 mmol/L (21-25); ABG Oxygen Saturation 91.7 % (94-97); ABG PCO2 56 mmHg (35-45); ABG PH 7.27 (7.35-7.45); ABG PO2 65 mmHg (83-108); ABG TCO2 27 mmol/L (19-24); Allen Test Performed? Yes
[2023-02-03] MEDS ORDERED: VANCOMYCIN IV PER PHARMACY 1 EACH MISC MISCELLANE PRN (14:29)
[2023-02-03] MEDS ORDERED: VANCOMYCIN 1,250 MG in SODIUM CHLORIDE 0.9% 250 ML IVPB ONE (14:45)
[2023-02-03 15:10] LABS: Amphetamine Screen,Urine Not Detected (NotDetected); Barbiturate Screen,Urine Not Detected (NotDetected); Benzodiazepines Screen,Urine Not Detected (NotDetected); Cocaine Screen,Urine Not Detected (NotDetected); Methadone Screen, Urine Not Detected (NotDetected); Opiate Screen,Urine Not Detected (NotDetected); Oxycodone Screen, Urine Not Detected (NotDetected); Phencyclidine Screen,Urine Not Detected (NotDetected); Tricyclic Antidepressant,Urine Not Detected (NotDetected); Urn Cannabinoid Scrn Not Detected (NotDetected)
[2023-02-03] MEDS: IPRATROPIUM-ALBUTEROL 3 ML NEB INHALATION SCH ×2 (15:34→20:09)
--- NOTE | 2023-02-03 15:35 | CT ---
EXAMINATION TYPE: CT brain wo con DATE OF EXAM: 02/03/2023 COMPARISON: 02/24/22 HISTORY: altered mental status CT DLP: 1060.[address] of the brain was performed. The ventricles, basal cisterns and sulci overlying the cerebral convexities demonstrate mild enlargem ent. There is no evidence for intracranial hemorrhage or sulcal effacement. There is decreased attenuation about the periventricular white matter and deep white matter of both c erebral hemispheres, compatible with chronic small vessel ischemia. Differential diagnosis does inclu de demyelination. No mass effects are seen.No midline shift. Osseous calvarium is intact. If symptoms persist consider MRI. IMPRESSION: 1. Age related atrophic and chronic small vessel ischemic change without acute intracranial process s een at this time.
[2023-02-03] MEDS ORDERED: SODIUM CHLORIDE 0.9% 1,000 ML IV SCH (16:15)
[2023-02-03] MEDS: SODIUM CHLORIDE 0.9% 1,000 ML IV SCH (17:00)
[2023-02-03 18:04] LABS: Glucose,Whole Blood 163 mg/dL (70-110)
[2023-02-03] MEDS: methylPREDNISolone SOD SUCCI 125 MG/2 ML VIAL IV SCH ×2 (18:08→23:42)
[2023-02-03] MEDS: CLOPIDOGREL 75 MG TAB PO SCH ×2 (18:09→18:30)
[2023-02-03] MEDS ORDERED: Potassium Replacement Protocol 1 EACH MISC MISCELLANE PRN (18:15)
[2023-02-03] MEDS ORDERED: Magnesium Replacement Protocol 1 EACH MISC MISCELLANE PRN (18:15)
[2023-02-03] MEDS: ESCITALOPRAM 20 MG TAB PO SCH ×2 (18:24→18:30)
--- NOTE | 2023-02-03 19:41 | P.CNPUL ---
History of Present Illness Consult date: 02/03/23 Reason for consult: dyspnea, COPD History of present illness: This is a 62-year-old female patient with advanced COPD and chronic hypoxic and hypercapnic respiratory failure. The patient has had several hospitals this in the past for COPD exacerbation. She is a chronic smoker. She is typically maintained on oxygen at 2 L/m nasal cannula. However she has chronic hypercapnic respiratory failure in addition. The patient came into the emerg ency department having increased shortness of breath and altered mentation. She has also increased cough and sputum production. Denies having any chest pain. No nausea or vomiting or palpitations. She was seen in the emergency department and the patient was initially awake and subsequent she became more obtunded and lethargic. He was placed on BiPAP accordingly. She is afebrile. Her blood p ressure was soft and it went as low as 80/54. The patient was given IV fluids and she was started on low-dose pressors for hemodynamic support. Chest x-ray was done that showed no acute abnormalities. It is consistent with COPD. The patient was being considered for intubation. The emergency room physician talked to the family a at least on 3 separate occasions about intubation and he wanted to hold off at this point in time. The patient received a total of 1.5 L of fluid in the emergency department and she was started on pressors. W because of 18.1 with hemoglobin 13.4 and platelet count of 287. Sodium is at 134, BNP is at 60 with a creatinine of 1 and a glucose of 107. Influenza is negative, RSV is negative, Covid 19 is negative, troponin is at 0.016, LFTs are normal, lactic acid level is at 1.6, BUN is at 60 with a creatinine of 1 and a serum bicarb is at 23. The patient had a blood gas and this was done from the right upper extremity and left upper extremity and there is essentially compatible. The pH was at 7.27 with a pCO2 of 56 and pO2 of 65. Urine drug screen was n egative. The patient was normal to the intensive care unit for now. She was not on bronchodilators patient is also on IV Solu-Medrol, and she was started on accommodation of Rocephin and vancomycin as empiric antibiotic coverage. Note that the patient has advanced lung disease. The patient has a severe COPD and the FEV1 is in the order of 25% of predicted based on spirometry that was done back in December 222021. She has had multiple exacerbations of COPD. She was in the hospital back in June 2023 and acute COPD exacerbation. She also had a carotid artery stenting on 10/27/2022. Review of Systems Constitutional: Reports fatigue, Reports weakness Eyes: denies as per HPI, denies blurred vision, denies bulging eye, denies decreased vision, denies diplopia, denies discharge, denies dry eye, denies irritation, denies itching, denies pain, denies photophobia, denies loss of peripheral vision, denies loss of vision, denies tunnel vision/blind spots Ears: deny: decreased hearing, ear discharge, earache, tinnitus Ears, nose, mouth and throat: Reports as per HPI Breasts: absent: as per HPI, change in shape, gynecomastia, masses, nipple discharge, pain, skin changes, swelling Cardiovascular: Reports decreased exercise tolerance, Reports dyspnea on exertion, Reports shortness of breath Respiratory: Reports cough, Reports dyspnea, Reports home oxygen, Reports wheezing Gastrointestinal: Reports as per HPI Genitourinary: Reports as per HPI Menstruation: Reports as per HPI Musculoskeletal: Reports as per HPI Musculoskeletal: absent: ankle pain, ankle stiffness, ankle swelling Integumentary: Reports as per HPI Neurological: Reports as per HPI Psychiatric: Reports as per HPI, Reports confusion Endocrine: Reports as per HPI Hematologic/Lymphatic: Reports as per HPI Allergic/Immunologic: Reports as per HPI Past Medical History Past Medical History: Asthma, Coronary Artery Disease (CAD), Chest Pain / Angina, COPD, GERD/Reflux, Hyperlipidemia, Hypertension, Myocardial Infarction ([place]), Respiratory Disorder, Seizure Disorder, Thyroid Disorder, Vascular Disorder Additional Past Medical History / Comment(s): PRN oxygen use, 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 carotid blockage, PAD, vertigo at times. Last Myocardial Infarction Date:: 06/2022 History of Any Multi-Drug Resistant Organisms: None Reported Past Surgical History: Heart Catheterization, Heart Catheterization With Stent, Hysterectomy, Joint Replacement, Orthopedic Surgery Additional Past Surgical History / Comment(s): RT ROTATOR CUFF REPAIR, R total knee, CYSTS REMOVED FROM UNDER ARMS AND HANDS, arch studies, L caratid endartectomy, 4 cardiac stents, several peripheral stents, 07/18/18 left subclavian stent, arch studies. 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 Pt has never received blood. Date of Last Stent Placement:: Nov 2017 Past Psychological History: Anxiety, Depression Smoking Status: Current every day smoker Past Alcohol Use History: None Reported Past Drug Use History: Marijuana - Past Family History Mother Family Medical History: Cancer Sister(s) Family Medical History: Cancer Medications and Allergies Home Medications Medication Instructions Recorded Confirmed Type Escitalopram [Lexapro] 40 mg PO DAILY 11/28/17 02/03/23 History Levothyroxine Sodium 200 mcg PO DAILY 08/20/20 02/03/23 History Nitroglycerin Sl Tabs [Nitrostat] 0.4 mg SL Q5M PRN 08/20/20 02/03/23 History Gabapentin 600 mg PO TID 06/18/21 02/03/23 History Doxepin [SINEquan] 10 mg PO HS 02/25/22 02/03/23 History Atorvastatin [Lipitor] 40 mg PO HS #30 tab 06/21/22 02/03/23 Rx Clopidogrel [Plavix] 75 mg PO DAILY #90 tablet 10/28/22 02/03/23 Rx Albuterol Sulfate [Albuterol 1 - 2 puff PO RT-Q6H PRN 02/03/23 02/03/23 History Sulfate Hfa] buprenorphine HCL [Subutex] 3 mg SL BID 02/03/23 02/03/23 History cloNIDine HCL [Catapres] 0.2 mg PO BID 02/03/23 02/03/23 History levETIRAcetam [Keppra] 1,500 mg PO BID 02/03/23 02/03/23 History Allergies Allergy/AdvReac Type Severity Reaction Status Date / Time No Known Allergies Allergy Verified 02/03/23 15:14 Physical Exam Vitals: Vital Signs Temp Pulse Resp BP Pulse Ox FiO2 02/03/23 15:41 88 02/03/23 15:36 86 18 98/56 99 02/03/23 15:34 87 14 02/03/23 14:56 95 24 111/67 96 02/03/23 14:30 82 20 102/65 98 02/03/23 14:09 85 24 76/50 97 02/03/23 13:57 30 02/03/23 13:44 89 18 78/48 93 L 02/03/23 13:31 87 19 67/46 95 02/03/23 13:21 89 18 80/68 94 L 02/03/23 13:00 93 20 86/53 94 L 02/03/23 12:00 89 18 89/40 100 02/03/23 11:32 61 02/03/23 11:23 84 18 76/48 99 02/03/23 11:15 81 02/03/23 11:14 30 02/03/23 11:13 30 02/03/23 11:00 91 24 91/80 93 L 02/03/23 10:42 91 30 H 85/52 95 02/03/23 10:24 99.0 F 98 24 80/54 67 L Intake and Output 02/03/23 02/03/23 02/03/23 06:59 14:59 22:59 Intake Total 2.009 Output Total 100 Balance -97.991 Intake: Intake, IV Titration 2.009 Amount Norepinephrine 4 mg In 2.009 Sodium Chloride 0.9% 250 ml @ 0.03 MCG/KG/MIN 8. 036 mls/hr IV .Q24H [facility] Rx#:[id number] Output: Urine 100 Uretheral ([place]) 100 Other: Weight 70.307 kg Patient is currently lethargic, awake and she is communicating and she is currently on a BiPAP for respiratory support. Breathing is obviously labored. She has a BM index of 25.8 Head exam was generally normal. There was no scleral icterus or corneal arcus. Mucous membranes were moist. HEENT examination is grossly unremarkable. Neck supple. Full range of motion. No adenopathy thyromegaly or neck vein d istention. Cardiovascular examination reveals regular rhythm rate. S1-S2 normal. No S3 or S4. No discernible murmur noted. Heart sounds are very distant. Lungs reveal coarse inspiratory and expiratory rhonchi. There are some expiratory wheezes. Breath sounds are equal bilaterally but diminished throughout. No crackles appreciated. Breath sounds are significantly diminished bilaterally Abdomen soft bowel sounds are heard. No masses or tenderness. Extremities are intact. No cyanosis clubbing or edema. Skin is without rash or lesion. Neurologic examination is brief but nonfocal. awake and alert and she is moving all 4 extremities. Results - Laboratory Findings CBC and BMP: 02/03/23 10:50 02/03/23 10:50 ABG ABG pH 7.27 (7.35-7.45) L 02/03/23 14:18 ABG pCO2 56 mmHg (35-45) H 02/03/23 14:18 ABG pO2 65 mmHg (83-108) L 02/03/23 14:18 ABG O2 Saturation 91.7 % (94-97) L 02/03/23 14:18 PT/INR, D-dimer PT 10.3 sec (10.0-12.5) 02/03/23 10:50 INR 0.9 (<1.2) 02/03/23 10:50 Abnormal lab findings: Abnormal Labs 02/03/23 02/03/23 02/03/23 10:50 10:50 10:50 WBC 18.1 H Neutrophils # 15.9 H ABG pH ABG pCO2 ABG pO2 ABG HCO3 ABG Total CO2 ABG O2 Saturation VBG pH 7.29 L VBG pCO2 55 H Sodium 134 L Glucose 107 H AST 64 H 02/03/23 02/03/23 02/03/23 13:40 14:08 14:18 WBC Neutrophils # ABG pH 7.27 L 7.27 L ABG pCO2 56 H 56 H ABG pO2 49 L* 65 L ABG HCO3 26 H 26 H ABG Total CO2 28 H 27 H ABG O2 Saturation 83.1 L 91.7 L VBG pH 7.25 L VBG pCO2 57 H Sodium Glucose AST - Diagnostic Findings Chest x-ray: image reviewed Assessment and Plan Plan: Acute hypoxic/hypercapnic respiratory failure, currently on a BiPAP. Chest x- ray is free of any acute pulmonary infiltrates. Patient is currently on BiPAP, BiPAP at 12/ with an FiO2 40%. Note that the viral screen including influenza, Covid 19 and RSV were all negative. She is a chronic smoker and she didn't FEV1 of 25% of predicted. She is oxygen dependent. Urine drug screen is negative Altered mentation secondary to CO2 narcosis, improving while on the BIPAP and the patient was awake at the time of my evaluation in the MICU Advanced COPD maintain on Trelegy Ellipta on outpatient basis, stop the medication as the patient was unable to afford. Nicotine addiction. CAD with previous stent placement. The patient is a limited troponin leak secondary to above Hypotension, currently being assisted IV fluids. Pressors will be also started if needed. Mild leukocytosis Previous history of Covid 19 infection from October 2021 History of seizure disorder, previous hospitalization for a breakthrough seizure, currently on Keppra History of hypothyroidism. History of hyperlipidemia. Left carotid artery stenosis, post carotid stenting that was done in October 2022 Plan We'll continue BiPAP therapy for now and will make adjustments of the BiPAP setting based on her tolerability and her blood gases. continue bronchodilators continue steroids Continue IV fluids with normal saline at rate of 100 mL an hour. Pressors if needed. Continue Rocephin and vancomycin for now Monitor mental status Monitor blood gases We'll discuss with the family treatment options. We'll discuss intubation mechanical ventilation. Long-term prognosis poor as the patient advanced lung disease. Condition is critical and the patient will be admitted to the intensive care unit. Time with Patient: Greater than 30
[2023-02-03 20:20] LABS: Glucose,Whole Blood 169 mg/dL (70-110)
[2023-02-03] MEDS: GABAPENTIN 300 MG CAP PO SCH (21:05)
[2023-02-03] MEDS: ATORVASTATIN 40 MG TAB PO SCH (21:05)
[2023-02-03] MEDS: HYDROcodone/APAP 5-325MG 1 EACH TAB PO PRN (21:11)
[2023-02-03] MEDS: HEPARIN SODIUM,PORCINE 5,000 UNIT/ML 1 ML VIAL SQ SCH (23:42)
[2023-02-04] MEDS: NOREPINEPHRINE 4 MG in SODIUM CHLORIDE 0.9% 250 ML IV SCH (02:33)
[2023-02-04] MEDS: HYDROcodone/APAP 5-325MG 1 EACH TAB PO PRN ×5 (02:46→21:08)
[2023-02-04 06:04] LABS: African American GFR (CKD) >90 (>60 ml/min/1.73 sqM); Anion Gap 11 mmol/L; Blood Urea Nitrogen 15 mg/dL (7-17); Calcium 8.3 mg/dL (8.4-10.2); Carbon Dioxide 22 mmol/L (22-30); Chloride 108 mmol/L (98-107); Glucose 156 mg/dL (74-99); Magnesium 2.3 mg/dL (1.6-2.3); Non-African American GFR(CKD) >90 (>60 ml/min/1.73 sqM); Potassium 4.1 mmol/L (3.5-5.1); Sodium 141 mmol/L (137-145)
[2023-02-04 06:11] LABS: Basophils % (A) 0 %; Eosinophils % (A) 0 %; HCT 40.2 % (34.0-46.0); HGB 12.8 gm/dL (11.4-16.0); Hypochromasia Slight; Lymphocytes # (A) 0.5 k/uL (1.0-4.8); Lymphocytes % (A) 3 %; MCH 30.4 pg (25.0-35.0); MCHC 31.9 g/dL (31.0-37.0); MCV 95.6 fL (80.0-100.0); Mean Platelet Volume 7.2; Monocytes # (A) 0.6 k/uL (0-1.0); Monocytes % (A) 3 %; Neutrophils # (A) 17.3 k/uL (1.3-7.7); Neutrophils % (A) 94 %; Platelet Count 298 k/uL (150-450); RDW 14.6 % (11.5-15.5); WBC 18.5 k/uL (3.8-10.6)
[2023-02-04] MEDS: PANTOPRAZOLE 40 MG TABLET PO SCH (06:52)
[2023-02-04] MEDS: methylPREDNISolone SOD SUCCI 125 MG/2 ML VIAL IV SCH ×3 (06:54→17:28)
[2023-02-04] MEDS: LEVOTHYROXINE 100 MCG TAB PO SCH (06:54)
[2023-02-04] MEDS: SODIUM CHLORIDE 0.9% 1,000 ML IV SCH ×2 (06:54→21:11)
--- NOTE | 2023-02-04 07:27 | XR ---
EXAMINATION TYPE: XR chest 1V DATE OF EXAM: 02/04/2023 5:30 AM CLINICAL INDICATION:Female, 62 years old with history of sob; COMPARISON: Chest radiographs from 02/03/2023. TECHNIQUE: XR chest 1V Frontal view of the chest. FINDINGS: Lungs/Pleura: Prominent interstitial lung markings are seen scattered throughout the lungs. No eviden ce of focal consolidation, pneumothorax or pleural effusion. Pulmonary vascularity: Unremarkable. Heart/mediastinum: Cardiomediastinal silhouette is unremarkable. Musculoskeletal: No acute osseous pathology. Rotator cuff repair anchor on the right shoulder. Other findings: None IMPRESSION: 1. Chronic changes without acute pulmonary process. No significant change from prior. 2. COPD
[2023-02-04] MEDS: FORMOTEROL FUMARATE 20 MCG/2 ML NEBU INHALATION SCH ×2 (07:47→20:02)
[2023-02-04] MEDS: BUDESONIDE 1 MG/2 ML NEBU INHALATION SCH ×2 (07:57→20:02)
[2023-02-04] MEDS: IPRATROPIUM-ALBUTEROL 3 ML NEB INHALATION SCH ×4 (07:57→20:02)
[2023-02-04] MEDS: GABAPENTIN 300 MG CAP PO SCH ×3 (07:59→21:08)
[2023-02-04] MEDS: HEPARIN SODIUM,PORCINE 5,000 UNIT/ML 1 ML VIAL SQ SCH ×2 (07:59→15:47)
[2023-02-04] MEDS: ESCITALOPRAM 20 MG TAB PO SCH (07:59)
[2023-02-04] MEDS: CLOPIDOGREL 75 MG TAB PO SCH (07:59)
[2023-02-04] MEDS ORDERED: VANCOMYCIN 1,250 MG in SODIUM CHLORIDE 0.9% 250 ML IVPB SCH ×2 (08:00→20:00)
--- NOTE | 2023-02-04 08:24 | P.PN ---
Subjective Progress Note Date: 02/04/23 This is a 62-year-old female patient with advanced COPD and chronic hypoxic and hypercapnic respiratory failure. The patient has had several hospitals this in the past for COPD exacerbation. She is a chronic smoker. She is typically maintained on oxygen at 2 L/m nasal cannula. However she has chronic hypercapnic respiratory failure in addition. The patient came into the emergency department having increased shortness of breath and altered mentation. She has also increased cough and sputum production. Denies having any chest pain. No nausea or vomiting or palpitations. She was seen in the emergency department and the patient was initially awake and subsequent she became more obtunded and lethargic. He was placed on BiPAP accordingly. She is afebrile. Her blood pressure was soft and it went as low as 80/54. The patient was given IV fluids and she was started on low-dose pressors for hemodynamic support. Chest x-ray was done that showed no acute abnormalities. It is consistent with COPD. The patient was being considered for intubation. The emergency room physician talked to the family a at least on 3 separate occasions about intubation and he wanted to hold off at this point in time. The patient received a total of 1.5 L of fluid in the emergency department and she was started on pressors. W because of 18.1 with hemoglobin 13.4 and platelet count of 287. Sodium is at 134, BNP is at 60 with a creatinine of 1 and a glucose of 107. Influenza is negative, RSV is negative, Covid 19 is negative, troponin is at 0.016, LFTs are normal, lactic acid level is at 1.6, BUN is at 60 with a creatinine of 1 and a serum bicarb is at 23. The patient had a blood gas and this was done from the right upper extremity and left upper extremity and there is essentially compatible. The pH was at 7.27 with a pCO2 of 56 and pO2 of 65. Urine drug screen was negative. The patient was normal to the intensive care unit for now. She was not on bronchodilators patient is also on IV Solu-Medrol, and she was started on accommodation of Rocephin and vancomycin as empiric antibiotic coverage. Note that the patient has advanced lung disease. On 02/04/2023, seeing the patient for a follow-up. The patient is currently off the BiPAP and she is currently on 3 L oxygen nasal cannula. Overnight, she spends the night on a BiPAP at a pressure of 12/500 FiO2 of 30%. She is more comfortable compared to yesterday. She is coughing out purulent mucous and a sample was collected today. She remains on accommodation of Rocephin and vancomycin. Her blood pressures remain soft and the most recent BP reading is 96/34 with a mean of 44. The patient is currently on norepinephrine at 0.02 microvascular kilogram per minute and she is also normal saline at the rate of 75 mL an hour. She was bolused with IV fluids in the emergency. Overall fluid balance is positive. No chest pain. The white cycles of 18.5 with a hemoglobin 12.5 and a platelet count of 298. BUN is at 60 with a creatinine of 0.6 and the sodium levels is 141. Urine drug screen is negative. Troponins are negative. A repeat chest x-ray from today shows no airspace disease or consolidations. The patient is awake and alert and she is also communicating. Most recent echocardiogram that was done on 04/13/2022 showed a normal ejection fraction of 65%. No chest pain. No altered mentation. No other significant events over the past 24 hours. Objective - Vital Signs Vital signs: Vital Signs Temp 98.3 F 02/04/23 04:00 Pulse 90 02/04/23 08:15 Resp 19 02/04/23 07:45 BP 87/49 02/04/23 07:45 Pulse Ox 91 L 02/04/23 07:45 FiO2 30 02/04/23 04:00 Intake & Output 02/03/23 02/04/23 02/04/23 18:59 06:59 18:59 Intake Total 274.762 8735.891 79.778 Output Total 525 765 65 Balance -273.344 561.891 14.778 Weight 70.307 kg 74.6 kg Intake: IV 205 900 75 Sodium Chloride 0.9% 1, 205 900 75 000 ml @ 75 mls/hr IV . [id number] [facility] Rx#:[id number] Intake, IV Titration 46.656 276.891 4.778 Amount Norepinephrine 4 mg In 46.656 276.891 4.778 Sodium Chloride 0.9% 250 ml @ 0.03 MCG/KG/MIN 8. 036 mls/hr IV .Q24H [facility] Rx#:[id number] Oral 150 Output: Urine 525 765 65 Uretheral ([place]) 100 Other: Voiding Method Indwelling Catheter Indwelling Catheter - Exam Patient is currently lethargic, awake and she is communicating and she is on oxygen at 3 L per minute nasal cannula Breathing is obviously labored. She has a BM index of 25.8 Head exam was generally normal. There was no scleral icterus or corneal arcus. Mucous membranes were moist. HEENT examination is grossly unremarkable. Neck supple. Full range of motion. No adenopathy thyromegaly or neck vein distention. Cardiovascular examination reveals regular rhythm rate. S1-S2 normal. No S3 or S4. No discernible murmur noted. Heart sounds are very distant. Lungs reveal coarse inspiratory and expiratory rhonchi. There are some expiratory wheezes. Breath sounds are equal bilaterally but diminished throughout. No crackles appreciated. Breath sounds are significantly dim inished bilaterally Abdomen soft bowel sounds are heard. No masses or tenderness. Extremities are intact. No cyanosis clubbing or edema. Skin is without rash or lesion. Neurologic examination is brief but nonfocal. awake and alert and she is moving all 4 extremities. - Labs CBC & Chem 7: 02/04/23 05:15 02/04/23 05:15 Labs: Abnormal Lab Results - Last 24 Hours (Table) 02/03/23 02/03/23 02/03/23 Range/Units 10:50 10:50 10:50 WBC 18.1 H (3.8-10.6) k/uL Neutrophils # 15.9 H (1.3-7.7) k/uL Lymphocytes # (1.0-4.8) k/uL ABG pH (7.35-7.45) ABG pCO2 (35-45) mmHg ABG pO2 (83-108) mmHg ABG HCO3 (21-25) mmol/L ABG Total CO2 (19-24) mmol/L ABG O2 Saturation (94-97) % VBG pH 7.29 L (7.31-7.41) VBG pCO2 55 H (37-51) mmHg Sodium 134 L (137-145) mmol/L Chloride (98-107) mmol/L Glucose 107 H (74-99) mg/dL POC Glucose (mg/dL) (70-110) mg/dL Calcium (8.4-10.2) mg/dL AST 64 H (14-36) U/L 02/03/23 02/03/23 02/03/23 Range/Units 13:40 14:08 14:18 WBC (3.8-10.6) k/uL Neutrophils # (1.3-7.7) k/uL Lymphocytes # (1.0-4.8) k/uL ABG pH 7.27 L 7.27 L (7.35-7.45) ABG pCO2 56 H 56 H (35-45) mmHg ABG pO2 49 L* 65 L (83-108) mmHg ABG HCO3 26 H 26 H (21-25) mmol/L ABG Total CO2 28 H 27 H (19-24) mmol/L ABG O2 Saturation 83.1 L 91.7 L (94-97) % VBG pH 7.25 L (7.31-7.41) VBG pCO2 57 H (37-51) mmHg Sodium (137-145) mmol/L Chloride (98-107) mmol/L Glucose (74-99) mg/dL POC Glucose (mg/dL) (70-110) mg/dL Calcium (8.4-10.2) mg/dL AST (14-36) U/L 02/03/23 02/03/23 02/04/23 Range/Units 18:02 20:19 05:15 WBC 18.5 H (3.8-10.6) k/uL Neutrophils # 17.3 H (1.3-7.7) k/uL Lymphocytes # 0.5 L (1.0-4.8) k/uL ABG pH (7.35-7.45) ABG pCO2 (35-45) mmHg ABG pO2 (83-108) mmHg ABG HCO3 (21-25) mmol/L ABG Total CO2 (19-24) mmol/L ABG O2 Saturation (94-97) % VBG pH (7.31-7.41) VBG pCO2 (37-51) mmHg Sodium (137-145) mmol/L Chloride (98-107) mmol/L Glucose (74-99) mg/dL POC Glucose (mg/dL) 163 H 169 H (70-110) mg/dL Calcium (8.4-10.2) mg/dL AST (14-36) U/L 02/04/23 Range/Units 05:15 WBC (3.8-10.6) k/uL Neutrophils # (1.3-7.7) k/uL Lymphocytes # (1.0-4.8) k/uL ABG pH (7.35-7.45) ABG pCO2 (35-45) mmHg ABG pO2 (83-108) mmHg ABG HCO3 (21-25) mmol/L ABG Total CO2 (19-24) mmol/L ABG O2 Saturation (94-97) % VBG pH (7.31-7.41) VBG pCO2 (37-51) mmHg Sodium (137-145) mmol/L Chloride 108 H (98-107) mmol/L Glucose 156 H (74-99) mg/dL POC Glucose (mg/dL) (70-110) mg/dL Calcium 8.3 L (8.4-10.2) mg/dL AST (14-36) U/L Assessment and Plan Plan: Acute hypoxic/hypercapnic respiratory failure, currently on a BiPAP. Chest x- ray is free of any acute pulmonary infiltrates. Patient is currently on BiPAP, BiPAP at 12/5 with an FiO2 of 30% overnight and the patient is currently on 3 L of oxygen by nasal cannula. Note that the viral screen including influenza, Covid 19 and RSV were all negative. She is a chronic smoker and she didn't FEV1 of 25% of predicted. She is oxygen dependent. Urine drug screen is negative . There is evidence of purulent tracheobronchitis. Repeat chest x-ray from today shows no evidence of any pneumonia Leukocytosis, white cell count of 18 Altered mentation secondary to CO2 narcosis, improving while on the BIPAP and the patient was awake at the time of my evaluation in the MICU Advanced COPD maintain on Trelegy Ellipta on outpatient basis, stop the medication as the patient was unable to afford. Nicotine addiction. CAD with previous stent placement. The patient is a limited troponin leak secondary to above Hypotension, currently being assisted IV fluids. Pressors are in the form of norepinephrine to a low-dose of 0.02 mcg/kg/m. Mild leukocytosis Previous history of Covid 19 infection from October 2021 History of seizure disorder, previous hospitalization for a breakthrough seizure, currently on Keppra History of hypothyroidism. History of hyperlipidemia. Left carotid artery stenosis, post carotid stenting that was done in October 2022 Plan Sputum was collected Check pro calcitonin Continue Rocephin and vancomycin BiPAP on and off during the day and overnight, currently on 2 L of oxygen by nasal cannula Continue IV fluids normal saline at the rate of 75 mL an hour We'll continue BiPAP therapy for now and will make adjustments of the BiPAP setting based on her tolerability and her blood gases. continue bronchodilators continue steroids Home medications have been resumed Provide diet Long-term prognosis poor as the patient advanced lung disease. Condition is critical and the patient will be admitted to the intensive care unit.
--- NOTE | 2023-02-04 11:30 | P.HPIM ---
History of Present Illness H&P Date: 02/04/23 Chief Complaint: Respiratory failure This is a 62-year-old female with respiratory failure. The patient was found at home with altered mental status due to difficulty breathing. She was placed in the ICU with BiPAP and has significantly improved. She has full recognition of what happened and she has been struggling for the last 3-4 days. She has an underlying history of COPD with emphysema and acute exacerbation. 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 She still continues to use tobacco. There was worry that she might need mechanical ventilation. She is slowly improving. Underlying history of otherwise opiate dependency. Review of Systems Constitutional: Reports chronic pain, Denies chills, Denies fever Eyes: denies blurred vision, denies pain Ears, nose, mouth and throat: Denies headache, Denies sore throat Cardiovascular: Reports as per HPI, Reports shortness of breath Respiratory: Reports cough, Reports cough with sputum, Reports home oxygen, Reports respiratory infections Gastrointestinal: Denies abdominal pain, Denies diarrhea, Denies nausea, Denies vomiting Genitourinary: Denies dysuria, Denies hematuria Past Medical History Past Medical History: Asthma, Coronary Artery Disease (CAD), Chest Pain / Angina, COPD, GERD/Reflux, Hyperlipidemia, Hypertension, Myocardial Infarction (MO), Respiratory Disorder, Seizure Disorder, Thyroid Disorder, Vascular Disorder Additional Past Medical History / Comment(s): PRN oxygen use, 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 carotid blockage, PAD, vertigo at times. Last Myocardial Infarction Date:: 06/2022 History of Any Multi-Drug Resistant Organisms: None Reported Past Surgical History: Heart Catheterization, Heart Catheterization With Stent, Hysterectomy, Joint Replacement, Orthopedic Surgery Additional Past Surgical History / Comment(s): RT ROTATOR CUFF REPAIR, R total knee, CYSTS REMOVED FROM UNDER ARMS AND HANDS, arch studies, L caratid endartectomy, 4 cardiac stents, several peripheral stents, 07/18/18 left subclavian stent, arch studies. 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 Pt has never received blood. Date of Last Stent Placement:: Nov 2017 Past Psychological History: Anxiety, Depression Smoking Status: Current every day smoker Past Alcohol Use History: None Reported Past Drug Use History: Marijuana - Past Family History Mother Family Medical History: Cancer Sister(s) Family Medical History: Cancer Medications and Allergies Home Medications Medication Instructions Recorded Confirmed Type Escitalopram [Lexapro] 40 mg PO DAILY 11/28/17 02/03/23 History Levothyroxine Sodium 200 mcg PO DAILY 08/20/20 02/03/23 History Nitroglycerin Sl Tabs [Nitrostat] 0.4 mg SL Q5M PRN 08/20/20 02/03/23 History Gabapentin 600 mg PO TID 06/18/21 02/03/23 History Doxepin [SINEquan] 10 mg PO HS 02/25/22 02/03/23 History Atorvastatin [Lipitor] 40 mg PO HS #30 tab 06/21/22 02/03/23 Rx Clopidogrel [Plavix] 75 mg PO DAILY #90 tablet 10/28/22 02/03/23 Rx Albuterol Sulfate [Albuterol 1 - 2 puff PO RT-Q6H PRN 02/03/23 02/03/23 History Sulfate Hfa] buprenorphine HCL [Subutex] 3 mg SL BID 02/03/23 02/03/23 History cloNIDine HCL [Catapres] 0.2 mg PO BID 02/03/23 02/03/23 History levETIRAcetam [Keppra] 1,500 mg PO BID 02/03/23 02/03/23 History Allergies Allergy/AdvReac Type Severity Reaction Status Date / Time No Known Allergies Allergy Verified 02/03/23 15:14 Physical Exam Vitals: Vital Signs Temp Pulse Resp BP Pulse Ox FiO2 02/04/23 11:05 88 02/04/23 10:52 88 02/04/23 10:10 69 69 H 109/83 91 L 02/04/23 10:05 84 25 H 109/83 88 L 02/04/23 10:00 86 21 109/83 89 L 02/04/23 09:55 82 16 102/54 94 L 02/04/23 09:50 90 18 107/60 90 L 02/04/23 09:45 99 29 H 83/59 89 L 02/04/23 09:40 93 45 H 87/49 89 L 02/04/23 09:35 95 14 91/72 91 L 02/04/23 09:30 97 20 89/45 92 L 02/04/23 09:25 96 16 95/58 90 L 02/04/23 09:20 96 20 76/51 88 L 02/04/23 09:15 100 41 H 80/65 91 L 02/04/23 09:10 97 45 H 78/47 88 L 02/04/23 09:05 97 22 92/37 91 L 02/04/23 08:45 98 21 83/52 90 L 02/04/23 08:30 103 H 19 80/56 85 L 02/04/23 08:15 93 72 H 90/58 98 02/04/23 08:05 97.5 F L 85 45 H 74/43 98 02/04/23 07:58 82 02/04/23 07:55 82 02/04/23 07:49 71 02/04/23 07:45 80 19 87/49 91 L 02/04/23 07:42 91 L 02/04/23 07:30 78 13 96/50 94 L 02/04/23 07:15 85 19 72/50 88 L 02/04/23 07:00 66 20 111/59 94 L 02/04/23 06:45 66 16 101/48 94 L 02/04/23 06:30 65 14 93/48 93 L 02/04/23 06:20 60 18 100/61 77 L 02/04/23 06:15 62 15 104/53 92 L 02/04/23 06:10 66 15 93/54 93 L 02/04/23 06:05 65 24 103/61 96 02/04/23 06:00 63 15 94/54 97 02/04/23 05:55 64 16 94/51 100 02/04/23 05:50 60 17 103/55 99 02/04/23 05:45 62 18 102/64 100 02/04/23 05:40 55 L 16 107/69 100 02/04/23 05:35 78 24 91/67 92 L 02/04/23 05:30 82 22 91/57 95 02/04/23 05:25 68 24 100/56 99 02/04/23 05:20 65 15 91/50 100 02/04/23 05:15 65 14 99/57 94 L 02/04/23 05:10 61 14 106/56 97 02/04/23 05:05 64 16 99/58 95 02/04/23 05:00 60 16 103/58 97 02/04/23 04:55 73 16 95 02/04/23 04:50 66 16 107/72 95 02/04/23 04:00 98.3 F 64 19 109/56 98 30 02/04/23 03:52 30 02/04/23 03:45 63 18 87/65 99 02/04/23 03:30 64 17 114/65 99 02/04/23 03:15 87 18 111/64 100 02/04/23 03:00 91 17 113/67 100 02/04/23 02:45 85 8 L 112/64 97 02/04/23 02:30 79 26 H 106/54 94 L 02/04/23 02:15 53 L 15 108/52 98 02/04/23 02:00 49 L 14 115/66 96 02/04/23 01:45 55 L 13 102/67 96 02/04/23 01:30 53 L 14 98/58 96 02/04/23 01:15 68 19 92/55 95 02/04/23 01:00 79 15 86/59 94 L 02/04/23 00:45 80 16 93/48 93 L 02/04/23 00:30 85 15 92/52 92 L 02/04/23 00:15 71 15 85/50 91 L 02/04/23 00:14 30 02/04/23 00:05 59 L 13 85/50 90 L 02/04/23 00:00 98.1 F 79 15 89/43 91 L 30 02/03/23 23:45 86 16 89/53 93 L 02/03/23 23:30 85 17 82/51 96 02/03/23 23:15 90 17 84/44 97 02/03/23 23:00 89 17 82/52 98 02/03/23 22:45 86 18 72/44 98 02/03/23 22:30 87 18 76/45 98 02/03/23 22:15 82 17 68/39 98 02/03/23 22:00 88 20 80/70 97 02/03/23 21:45 87 17 97/44 100 02/03/23 21:30 95 17 114/43 100 02/03/23 21:15 91 14 91/69 97 02/03/23 21:00 86 14 103/55 99 02/03/23 20:45 86 16 109/62 99 02/03/23 20:32 82 02/03/23 20:30 87 17 112/66 100 02/03/23 20:15 86 16 98/64 100 02/03/23 20:09 87 30 02/03/23 20:00 98.4 F 96 20 114/58 97 30 02/03/23 19:45 72 19 98/63 97 02/03/23 19:30 60 17 111/58 97 02/03/23 19:15 62 20 102/55 97 02/03/23 19:00 78 18 101/53 97 30 02/03/23 18:45 73 15 108/58 97 02/03/23 18:30 78 19 102/60 96 02/03/23 18:15 80 17 100/58 96 02/03/23 18:00 80 20 92/55 96 30 02/03/23 17:40 76 19 89/49 98 02/03/23 17:30 81 22 78/50 97 02/03/23 17:20 82 16 101/54 99 02/03/23 17:10 84 24 130/68 02/03/23 17:02 89 23 30 02/03/23 16:52 97.5 F L 85 18 100/65 98 02/03/23 15:41 88 02/03/23 15:36 86 18 98/56 99 02/03/23 15:34 87 14 02/03/23 14:56 95 24 111/67 96 02/03/23 14:30 82 20 102/65 98 02/03/23 14:09 85 24 76/50 97 02/03/23 13:57 30 02/03/23 13:44 89 18 78/48 93 L 02/03/23 13:31 87 19 67/46 95 02/03/23 13:21 89 18 80/68 94 L 02/03/23 13:00 93 20 86/53 94 L 02/03/23 12:00 89 18 89/40 100 02/03/23 11:32 61 Intake and Output 02/03/23 02/04/23 02/04/23 22:59 06:59 14:59 Intake Total 632.420 944.118 374.109 Output Total 790 400 170 Balance -157.580 544.118 204.109 Intake: IV 505 600 350 Sodium Chloride 0.9% 1, 505 600 300 000 ml @ 75 mls/hr IV . [id number] VINICIO Rx#:[id number] cefTRIAXone 2 gm In 50 Sodium Chloride 0.9% 50 ml @ 100 mls/hr IVPB Q24HR V[facility]ICIO Rx#:[id number] Intake, IV Titration 127.420 194.118 24.109 Amount Norepinephrine 4 mg In 127.420 194.118 24.109 Sodium Chloride 0.9% 250 ml @ 0.03 MCG/KG/MIN 8. 036 mls/hr IV .Q24H VINICIO Rx#:[id number] Oral 150 Output: Urine 790 400 170 Other: Voiding Method Indwelling Catheter Indwelling Catheter Indwelling Catheter # Voids 1 Weight 70.307 kg 74.6 kg - Constitutional General appearance: cooperative, mild distress, morbidly obese - Neck Neck: no lymphadenopathy - Respiratory Respiratory: bilateral: diminished, rhonchi, prolonged expiration - Cardiovascular Rhythm: regular Heart sounds: normal: S1, S2 Abnormal Heart Sounds: no S3 Gallop - Gastrointestinal General gastrointestinal: soft, no tenderness - Integumentary Integumentary: no cyanotic - Neurologic Neurologic: CNII-XII intact - Psychiatric Psychiatric: A&O x's 3, appropriate affect, intact judgment & insight Results CBC & Chem 7: 02/04/23 05:15 02/04/23 05:15 Labs: Abnormal Lab Results - Last 24 Hours (Table) 02/03/23 02/03/23 02/03/23 Range/Units 10:50 13:40 14:08 WBC (3.8-10.6) k/uL Neutrophils # (1.3-7.7) k/uL Lymphocytes # (1.0-4.8) k/uL ABG pH 7.27 L (7.35-7.45) ABG pCO2 56 H (35-45) mmHg ABG pO2 49 L* (83-108) mmHg ABG HCO3 26 H (21-25) mmol/L ABG Total CO2 28 H (19-24) mmol/L ABG O2 Saturation 83.1 L (94-97) % VBG pH 7.25 L (7.31-7.41) VBG pCO2 57 H (37-51) mmHg Sodium 134 L (137-145) mmol/L Chloride (98-107) mmol/L Glucose 107 H (74-99) mg/dL POC Glucose (mg/dL) (70-110) mg/dL Calcium (8.4-10.2) mg/dL AST 64 H (14-36) U/L 02/03/23 02/03/23 02/03/23 Range/Units 14:18 18:02 20:19 WBC (3.8-10.6) k/uL Neutrophils # (1.3-7.7) k/uL Lymphocytes # (1.0-4.8) k/uL ABG pH 7.27 L (7.35-7.45) ABG pCO2 56 H (35-45) mmHg ABG pO2 65 L (83-108) mmHg ABG HCO3 26 H (21-25) mmol/L ABG Total CO2 27 H (19-24) mmol/L ABG O2 Saturation 91.7 L (94-97) % VBG pH (7.31-7.41) VBG pCO2 (37-51) mmHg Sodium (137-145) mmol/L Chloride (98-107) mmol/L Glucose (74-99) mg/dL POC Glucose (mg/dL) 163 H 169 H (70-110) mg/dL Calcium (8.4-10.2) mg/dL AST (14-36) U/L 02/04/23 02/04/23 Range/Units 05:15 05:15 WBC 18.5 H (3.8-10.6) k/uL Neutrophils # 17.3 H (1.3-7.7) k/uL Lymphocytes # 0.5 L (1.0-4.8) k/uL ABG pH (7.35-7.45) ABG pCO2 (35-45) mmHg ABG pO2 (83-108) mmHg ABG HCO3 (21-25) mmol/L ABG Total CO2 (19-24) mmol/L ABG O2 Saturation (94-97) % VBG pH (7.31-7.41) VBG pCO2 (37-51) mmHg Sodium (137-145) mmol/L Chloride 108 H (98-107) mmol/L Glucose 156 H (74-99) mg/dL POC Glucose (mg/dL) (70-110) mg/dL Calcium 8.3 L (8.4-10.2) mg/dL AST (14-36) U/L Assessment and Plan (1) COPD exacerbation Current Visit: Yes Status: Acute Code(s): J44.1 - CHRONIC OBSTRUCTIVE PULMONARY DISEASE W (ACUTE) EXACERBATION SNOMED Code(s): 012922759 (2) Respiratory failure Current Visit: Yes Status: Acute Code(s): J96.90 - RESPIRATORY FAILURE, UNSP, UNSP W HYPOXIA OR HYPERCAPNIA SNOMED Code(s): 899960518 (3) CAD (coronary artery disease) Current Visit: No Status: Acute Code(s): I25.10 - ATHSCL HEART DISEASE OF [place] CORONARY ARTERY W/O ANG PCTRS SNOMED Code(s): 39510524 (4) History of carotid endarterectomy Current Visit: No Status: Acute Code(s): Z98.890 - OTHER SPECIFIED POSTPROCEDURAL STATES SNOMED Code(s): 729521458 (5) Hypothyroid Current Visit: No Status: Acute Code(s): E03.9 - HYPOTHYROIDISM, UNSPECIFIED SNOMED Code(s): 05990656 (6) Opiate dependence Current Visit: No Status: Acute Code(s): F11.20 - OPIOID DEPENDENCE, UNCOMPLICATED SNOMED Code(s): 37184654 (7) Tobacco abuse Current Visit: No Status: Acute Code(s): Z72.0 - TOBACCO USE SNOMED Code(s): 672287343 (8) Hypotension Current Visit: No Status: Acute Code(s): I95.9 - HYPOTENSION, UNSPECIFIED SNOMED Code(s): 31601883 (9) Weakness Current Visit: No Status: Acute Code(s): R53.1 - WEAKNESS SNOMED Code(s): 28739915 Plan: She has been placed in the ICU with appropriate pressor support. We will reconcile home medications. We will continue to follow with pulmonology. Prognosis is guarded secondary to her end-stage COPD elements with oxygen dependency. Order CBC and CMP in a.m. continue levophed and oxygen at this time. [facility] is covering for the weekend. See orders otherwise. Time with Patient: Greater than 30
[2023-02-04 11:54] LABS: Glucose,Whole Blood 178 mg/dL (70-110)
[2023-02-04 16:20] LABS: Glucose,Whole Blood 184 mg/dL (70-110)
--- NOTE | 2023-02-04 17:10 | CDI ---
Documentation Clarification Form Date: 02/04/2023 04:44:00 PM From: Anahi Manley RN, CCDS Admit Date: 02/03/2023 02:25:00 PM Patient Name: Lidia Chang Visit Number: [id number] Discharge Date: ATTENTION: The Clinical Documentation Specialists (CDI) and [facility] Coding Staff appreciate your assistance in clarifying documentation. Please respond to the clarification below the line at the bottom and electronically sign. The CDI & [facility] Coding staff will review the response and follow-up if needed. Please note: Queries are made part of the Legal Health Record. If you have any questions, please contact the author of this message via ITS. Dr. Karlie Marques Your patient has altered mentation secondary to CO2 narcosis, improving while on the BIPAP in the Pulmonary consult and subsequent progress note. Based on this information and the findings below, is there an additional diagnosis that is clinically appropriate for this patient? Patient history/risk factors: advanced COPD and chronic hypoxic and hypercapnic respiratory failure Clinical Indicators: 62-year-old female having increased shortness of breath and altered mentation. She was initially awake and subsequent she became more obtunded and lethargic. She was placed on BiPAP. On admission she was diagnosed with acute hypoxic/hypercapnic respiratory failure, currently on a BiPAP. CXR: chronic changes without acute pulmonary process. COPD The pH was at 7.27 with a pCO2 of 56 and pO2 of 65. CO2 27 02/03 VS: 91/80 91 24 93% 2/L changed to BIPAP FIO2 30 Treatment: ICU/Telemetry monitoring BiPAP on and off during the day and overnight, currently on 2 L of oxygen by nasal cannula We'll continue BiPAP therapy for now and will make adjustments of the BiPAP setting based on her tolerability and her blood gases. Pulmicort 1 MG Inhalation BID, Duoneb 0.5 mg Inhalation QID Solu-Medrol 60 MG IV Q 6 HR (taper per orders) Rocephin 2 GM IVPB 02/04 Vancomycin 1,250 MG IVPB Q 12 HRS (PTD) Is there an additional diagnosis that is clinically appropriate for this patient? [x ] Hypoxic Encephalopathy secondary to CO2 narcosis, improving while on the BIPAP [ ] No additional diagnosis/Not clinically significant [ ] Unable to determine [ ] Other, please specify (Template Last Reviewed: April 2022) MTDD
[2023-02-04 20:26] LABS: Glucose,Whole Blood 165 mg/dL (70-110)
[2023-02-04] MEDS: ATORVASTATIN 40 MG TAB PO SCH (21:08)
[2023-02-04] MEDS: DOXEPIN 10 MG CAP PO PRN (22:45)
[2023-02-05] MEDS: methylPREDNISolone SOD SUCCI 125 MG/2 ML VIAL IV SCH ×4 (00:47→17:35)
[2023-02-05] MEDS: HEPARIN SODIUM,PORCINE 5,000 UNIT/ML 1 ML VIAL SQ SCH ×3 (00:47→16:14)
[2023-02-05] MEDS: HYDROcodone/APAP 5-325MG 1 EACH TAB PO PRN ×4 (02:51→20:34)
[2023-02-05] MEDS: NOREPINEPHRINE 4 MG in SODIUM CHLORIDE 0.9% 250 ML IV SCH (02:53)
[2023-02-05 06:37] LABS: Basophils % (A) 0 %; Eosinophils # (A) 0.1 k/uL (0-0.7); Eosinophils % (A) 1 %; HGB 13.1 gm/dL (11.4-16.0); Hypochromasia Slight; Lymphocytes # (A) 0.6 k/uL (1.0-4.8); Lymphocytes % (A) 3 %; MCH 30.5 pg (25.0-35.0); MCV 95.3 fL (80.0-100.0); Mean Platelet Volume 7.1; Monocytes # (A) 0.4 k/uL (0-1.0); Monocytes % (A) 2 %; Neutrophils # (A) 19.8 k/uL (1.3-7.7); Neutrophils % (A) 94 %; Platelet Count 331 k/uL (150-450); RDW 14.7 % (11.5-15.5)
[2023-02-05 06:48] LABS: Glucose,Whole Blood 137 mg/dL (70-110)
[2023-02-05 06:48] LABS: ALT 16 U/L (4-34); AST 31 U/L (14-36); African American GFR (CKD) >90 (>60 ml/min/1.73 sqM); Albumin 3.7 g/dL (3.5-5.0); Alkaline Phosphatase 107 U/L (38-126); Anion Gap 8 mmol/L; Blood Urea Nitrogen 14 mg/dL (7-17); Calcium 8.6 mg/dL (8.4-10.2); Carbon Dioxide 24 mmol/L (22-30); Chloride 107 mmol/L (98-107); Glucose 119 mg/dL (74-99); Non-African American GFR(CKD) >90 (>60 ml/min/1.73 sqM); Potassium 3.7 mmol/L (3.5-5.1); Sodium 139 mmol/L (137-145); Total Bilirubin 0.2 mg/dL (0.2-1.3); Total Protein 6.7 g/dL (6.3-8.2)
[2023-02-05] MEDS ORDERED: VANCOMYCIN TROUGH DUE 1 EACH MISC MISCELLANE ONE (07:00)
[2023-02-05] MEDS ORDERED: POTASSIUM CHLORIDE ER 20 MEQ TAB.ER PO SCH (07:00)
[2023-02-05] MEDS: LEVOTHYROXINE 100 MCG TAB PO SCH (07:14)
[2023-02-05] MEDS: PANTOPRAZOLE 40 MG TABLET PO SCH (07:14)
[2023-02-05] MEDS: BUDESONIDE 1 MG/2 ML NEBU INHALATION SCH ×2 (08:27→19:43)
[2023-02-05] MEDS: IPRATROPIUM-ALBUTEROL 3 ML NEB INHALATION SCH ×4 (08:27→19:43)
[2023-02-05] MEDS: FORMOTEROL FUMARATE 20 MCG/2 ML NEBU INHALATION SCH ×2 (08:28→19:43)
--- NOTE | 2023-02-05 08:28 | P.PN ---
Subjective Progress Note Date: 02/05/23 This is a 62-year-old female patient with advanced COPD and chronic hypoxic and hypercapnic respiratory failure. The patient has had several hospitals this in the past for COPD exacerbation. She is a chronic smoker. She is typically maintained on oxygen at 2 L/m nasal cannula. However she has chronic hypercapnic respiratory failure in addition. The patient came into the emergency department having increased shortness of breath and altered mentation. She has also increased cough and sputum production. Denies having any chest pain. No nausea or vomiting or palpitations. She was seen in the emergency department and the patient was initially awake and subsequent she became more obtunded and lethargic. He was placed on BiPAP accordingly. She is afebrile. Her blood pressure was soft and it went as low as 80/54. The patient was given IV fluids and she was started on low-dose pressors for hemodynamic support. Chest x-ray was done that showed no acute abnormalities. It is consistent with COPD. The patient was being considered for intubation. The emergency room physician talked to the family a at least on 3 separate occasions about intubation and he wanted to hold off at this point in time. The patient received a total of 1.5 L of fluid in the emergency department and she was started on pressors. W because of 18.1 with hemoglobin 13.4 and platelet count of 287. Sodium is at 134, BNP is at 60 with a creatinine of 1 and a glucose of 107. Influenza is negative, RSV is negative, Covid 19 is negative, troponin is at 0.016, LFTs are normal, lactic acid level is at 1.6, BUN is at 60 with a creatinine of 1 and a serum bicarb is at 23. The patient had a blood gas and this was done from the right upper extremity and left upper extremity and there is essentially compatible. The pH was at 7.27 with a pCO2 of 56 and pO2 of 65. Urine drug screen was negative. The patient was normal to the intensive care unit for now. She was not on bronchodilators patient is also on IV Solu-Medrol, and she was started on accommodation of Rocephin and vancomycin as empiric antibiotic coverage. Note that the patient has advanced lung disease. On 02/04/2023, seeing the patient for a follow-up. The patient is currently off the BiPAP and she is currently on 3 L oxygen nasal cannula. Overnight, she spends the night on a BiPAP at a pressure of 12/500 FiO2 of 30%. She is more comfortable compared to yesterday. She is coughing out purulent mucous and a sample was collected today. She remains on accommodation of Rocephin and vancomycin. Her blood pressures remain soft and the most recent BP reading is 96/34 with a mean of 44. The patient is currently on norepinephrine at 0.02 microvascular kilogram per minute and she is also normal saline at the rate of 75 mL an hour. She was bolused with IV fluids in the emergency. Overall fluid balance is positive. No chest pain. The white cycles of 18.5 with a hemoglobin 12.5 and a platelet count of 298. BUN is at 60 with a creatinine of 0.6 and the sodium levels is 141. Urine drug screen is negative. Troponins are negative. A repeat chest x-ray from today shows no airspace disease or consolidations. The patient is awake and alert and she is also communicating. Most recent echocardiogram that was done on 04/13/2022 showed a normal ejection fraction of 65%. No chest pain. No altered mentation. No other significant events over the past 24 hours. On 02/05/2023, the patient continues to show ongoing improvement in her COPD exacerbation. She does not utilize the BiPAP overnight and currently is on 4 L of oxygen by nasal cannula. She is slightly tachycardic in the heart is around 120, sinus. Hemodynamically stable. She continues to have a congested cough. Less mobile spastic and less wheezing compared to yesterday. She remains on bronchodilators. She remains on IV Solu-Medrol 60 mg every 6 hours. Vancomycin is discontinued and the patient remains on IV Rocephin. She remains on DuoNeb about treatments [id number] and she is also on IV Solu-Medrol. Her outpatient medications have been resumed. Blood work from today shows a dull discomfort 21.0 with a hemoglobin 15.1 and a platelet count of 331. BUN is at 40 with a creatinine of 0.6. The LFTs are essentially within normal limits. Her chest x-ray from yesterday was reviewed and there is no airspace disease. There is hyperinflation consistent with COPD. Mental status is adequate. No signs of any CO2 narcosis at this point in time. Blood culture has been negative thus far. Objective - Vital Signs Vital signs: Vital Signs Temp 98.0 F 02/05/23 04:00 Pulse 85 02/05/23 07:15 Resp 16 02/05/23 07:15 BP 126/70 02/05/23 07:15 Pulse Ox 96 02/05/23 07:15 FiO2 30 02/04/23 04:00 Intake & Output 02/04/23 02/05/23 02/05/23 18:59 06:59 18:59 Intake Total 1035.140 964.020 75 Output Total 1170 1900 Balance -134.860 -935.980 75 Weight 77.2 kg Intake: IV 950 900 75 Sodium Chloride 0.9% 1, 900 900 75 000 ml @ 75 mls/hr IV . [id number] [facility] Rx#:[id number] cefTRIAXone 2 gm In 50 Sodium Chloride 0.9% 50 ml @ 100 mls/hr IVPB Q24HR [facility]IO Rx#:[id number] Intake, IV Titration 85.140 64.020 Amount Norepinephrine 4 mg In 85.140 64.020 Sodium Chloride 0.9% 250 ml @ 0.03 MCG/KG/MIN 8. 036 mls/hr IV .Q24H [facility]ICIO Rx#:[id number] Output: Urine 1170 1900 Other: Voiding Method External Catheter External Catheter # Voids 1 1 - Exam Patient is currently lethargic, awake and she is communicating and she is on oxygen at 4 L per minute nasal cannula Breathing is obviously labored. She has a BM index of 25.8 Head exam was generally normal. There was no scleral icterus or corneal arcus. Mucous membranes were moist. HEENT examination is grossly unremarkable. Neck supple. Full range of motion. No adenopathy thyromegaly or neck vein d istention. Cardiovascular examination reveals regular rhythm rate. S1-S2 normal. No S3 or S4. No discernible murmur noted. Heart sounds are very distant. Lungs reveal coarse inspiratory and expiratory rhonchi. There are some expiratory wheezes. Breath sounds are equal bilaterally but diminished throughout. No crackles appreciated. Breath sounds are significantly diminished bilaterally Abdomen soft bowel sounds are heard. No masses or tenderness. Extremities are intact. No cyanosis clubbing or edema. Skin is without rash or lesion. Neurologic examination is brief but nonfocal. awake and alert and she is moving all 4 extremities. - Labs CBC & Chem 7: 02/05/23 06:26 02/05/23 06:26 Labs: Abnormal Lab Results - Last 24 Hours (Table) 02/04/23 02/04/23 02/04/23 Range/Units 11:52 16:19 20:25 WBC (3.8-10.6) k/uL Neutrophils # (1.3-7.7) k/uL Lymphocytes # (1.0-4.8) k/uL Glucose (74-99) mg/dL POC Glucose (mg/dL) 178 H 184 H 165 H (70-110) mg/dL 02/05/23 02/05/23 02/05/23 Range/Units 06:26 06:26 06:47 WBC 21.0 H (3.8-10.6) k/uL Neutrophils # 19.8 H (1.3-7.7) k/uL Lymphocytes # 0.6 L (1.0-4.8) k/uL Glucose 119 H (74-99) mg/dL POC Glucose (mg/dL) 137 H (70-110) mg/dL Microbiology - Last 24 Hours (Table) 02/03/23 10:50 Blood Culture - Preliminary Blood Assessment and Plan Plan: Acute hypoxic/hypercapnic respiratory failure, currently off BiPAP on 3-4 L of oxygen by nasal cannula, improving slowly Acute COPD exacerbation, improving. The patient has taken bronchitis with ongoing bronchospasm and wheezing. Chest x-ray showed no evidence of any pneumonia, currently covered with IV Rocephin as an impact antibiotic coverage Leukocytosis, white cell count of 18 Altered mentation secondary to CO2 narcosis, improving while on the BIPAP and the patient was awake at the time of my evaluation in the MICU, mental status is improved. This was probably related to a component of CO2 narcosis Advanced COPD maintain on Trelegy Ellipta on outpatient basis, stop the medication as the patient was unable to afford. Nicotine addiction. CAD with previous stent placement. The patient is a limited troponin leak secondary to above Hypotension, currently being assisted IV fluids. Patient has been off pressors since 4 AM Mild leukocytosis Previous history of Covid 19 infection from October 2021 History of seizure disorder, previous hospitalization for a breakthrough seizure, currently on Keppra History of hypothyroidism. History of hyperlipidemia. Left carotid artery stenosis, post carotid stenting that was done in October 2022 Plan Patient is currently off pressors Patient is currently off BiPAP Titrate oxygen flow to summer between 3-4 L limited saturation above 90% Sputum was collected and the results are still pending Check pro calcitonin, pending Continue Rocephin and DC vancomycin Continue IV fluids normal saline at KVO continue bronchodilators continue steroids Home medications have been resumed Provide diet Long-term prognosis poor as the patient advanced lung disease. transfer to medical floor
[2023-02-05] MEDS: MIDODRINE 5 MG TAB PO SCH ×2 (08:36→16:37)
[2023-02-05] MEDS: CLOPIDOGREL 75 MG TAB PO SCH (08:41)
[2023-02-05] MEDS: ESCITALOPRAM 20 MG TAB PO SCH (08:41)
[2023-02-05] MEDS: GABAPENTIN 300 MG CAP PO SCH ×3 (08:42→20:34)
[2023-02-05] MEDS: SODIUM CHLORIDE 0.9% 1,000 ML IV SCH ×2 (10:18→20:31)
[2023-02-05 11:16] LABS: Glucose,Whole Blood 113 mg/dL (70-110)
[2023-02-05] MEDS ORDERED: VANCOMYCIN IV PER PHARMACY 1 EACH MISC MISCELLANE PRN (13:59)
[2023-02-05] MEDS: VANCOMYCIN 1,250 MG in SODIUM CHLORIDE 0.9% 250 ML IVPB SCH (14:17)
[2023-02-05] MEDS: ATORVASTATIN 40 MG TAB PO SCH (20:35)
--- NOTE | 2023-02-05 20:42 | P.PN ---
Objective - Vital Signs Vital signs: Vital Signs Temp 97.6 F 02/05/23 08:00 Pulse 98 02/05/23 10:00 Resp 22 02/05/23 10:00 BP 74/60 02/05/23 10:00 Pulse Ox 89 L 02/05/23 10:00 FiO2 30 02/05/23 08:27 Intake & Output 02/04/23 02/05/23 02/05/23 18:59 06:59 18:59 Intake Total 1035.140 964.020 590 Output Total 1170 1900 1000 Balance -134.860 -935.980 -410 Weight 77.2 kg Intake: IV 950 900 190 Sodium Chloride 0.9% 1, 900 900 190 000 ml @ 75 mls/hr IV . [id number] [facility] Rx#:[id number] cefTRIAXone 2 gm In 50 Sodium Chloride 0.9% 50 ml @ 100 mls/hr IVPB Q24HR [facility] Rx#:[id number] Intake, IV Titration 85.140 64.020 Amount Norepinephrine 4 mg In 85.140 64.020 Sodium Chloride 0.9% 250 ml @ 0.03 MCG/KG/MIN 8. 036 mls/hr IV .Q24H [facility] Rx#:[id number] Oral 400 Output: Urine 1170 1900 1000 Other: Voiding Method External Catheter External Catheter # Voids 1 1 - Labs CBC & Chem 7: 02/05/23 06:26 02/05/23 06:26 Labs: Abnormal Lab Results - Last 24 Hours (Table) 02/04/23 02/04/23 02/04/23 Range/Units 11:52 16:19 20:25 WBC (3.8-10.6) k/uL Neutrophils # (1.3-7.7) k/uL Lymphocytes # (1.0-4.8) k/uL Glucose (74-99) mg/dL POC Glucose (mg/dL) 178 H 184 H 165 H (70-110) mg/dL 02/05/23 02/05/23 02/05/23 Range/Units 06:26 06:26 06:47 WBC 21.0 H (3.8-10.6) k/uL Neutrophils # 19.8 H (1.3-7.7) k/uL Lymphocytes # 0.6 L (1.0-4.8) k/uL Glucose 119 H (74-99) mg/dL POC Glucose (mg/dL) 137 H (70-110) mg/dL Microbiology - Last 24 Hours (Table) 02/04/23 08:05 Gram Stain - Preliminary Sputum 02/03/23 10:50 Blood Culture - Preliminary Blood Assessment and Plan Assessment: Acute COPD exacerbation possible pneumonia Hypotension Acute hypoxic hypercapnic, improving Metabolic encephalopathy improved Leukocytosis secondary to steroid effect History of coronary artery disease History of GERD Hypertension Hyperlipidemia History of seizure disorder Hyperthyroidism Peripheral neuropathy Plan: Continue with IV Solu-Medrol Continue with midodrine Continue with antibiotics with ceftriaxone Pulmonary team consultLabs and medication were reviewed.. Continue same treatment. Continue with symptomatic treatment. Resume home medication. Monitor labs and vitals. DVT and GI prophylaxis. Further recommendations as per clinical course of the patient DVT prophylaxis: Subcutaneous heparin GI Prophylaxis: Ppi PT/OT: Pending Prognosis is guarded
[2023-02-06] MEDS: methylPREDNISolone SOD SUCCI 125 MG/2 ML VIAL IV SCH ×5 (00:44→23:50)
[2023-02-06] MEDS: HEPARIN SODIUM,PORCINE 5,000 UNIT/ML 1 ML VIAL SQ SCH ×4 (00:44→23:50)
[2023-02-06] MEDS: HYDROcodone/APAP 5-325MG 1 EACH TAB PO PRN ×5 (02:14→20:42)
[2023-02-06] MEDS: VANCOMYCIN 1,250 MG in SODIUM CHLORIDE 0.9% 250 ML IVPB SCH ×2 (02:17→13:16)
[2023-02-06 04:52] LABS: African American GFR (CKD) >90 (>60 ml/min/1.73 sqM); Anion Gap 8 mmol/L; Blood Urea Nitrogen 25 mg/dL (7-17); Calcium 8.6 mg/dL (8.4-10.2); Carbon Dioxide 26 mmol/L (22-30); Chloride 106 mmol/L (98-107); Glucose 109 mg/dL (74-99); Non-African American GFR(CKD) 84 (>60 ml/min/1.73 sqM); Sodium 140 mmol/L (137-145)
[2023-02-06 05:22] LABS: HCT 43.9 % (34.0-46.0); HGB 14.5 gm/dL (11.4-16.0); Hypochromasia Marked; MCH 32.5 pg (25.0-35.0); MCV 98.5 fL (80.0-100.0); Mean Platelet Volume 7.4; Platelet Count 283 k/uL (150-450); RBC 4.45 m/uL (3.80-5.40); RDW 14.6 % (11.5-15.5); WBC 14.1 k/uL (3.8-10.6)
[2023-02-06 06:38] LABS: Glucose,Whole Blood 163 mg/dL (70-110)
[2023-02-06 06:45] LABS: Band Neutrophils % 7 %; Lymphocytes # (M) 0.99 k/uL (1.0-4.8); Monocytes # (M) 0.14 k/uL (0-1.0); Neutrophils % (M) 85 %; Nucleated Red Blood Cells 0 /100 WBC (0-0); Total Cells Counted 100
[2023-02-06 06:46] LABS: Anisocytosis (M) Present; Toxic Vacuolation Present
[2023-02-06] MEDS: LEVOTHYROXINE 100 MCG TAB PO SCH (07:02)
[2023-02-06] MEDS: MIDODRINE 5 MG TAB PO SCH ×2 (07:02→17:33)
[2023-02-06] MEDS: PANTOPRAZOLE 40 MG TABLET PO SCH (07:02)
[2023-02-06] MEDS: FORMOTEROL FUMARATE 20 MCG/2 ML NEBU INHALATION SCH ×2 (07:38→20:57)
[2023-02-06] MEDS: IPRATROPIUM-ALBUTEROL 3 ML NEB INHALATION SCH ×4 (07:38→20:57)
[2023-02-06] MEDS: BUDESONIDE 1 MG/2 ML NEBU INHALATION SCH ×2 (07:38→20:57)
[2023-02-06] MEDS: GABAPENTIN 300 MG CAP PO SCH ×3 (08:54→21:30)
[2023-02-06] MEDS: CLOPIDOGREL 75 MG TAB PO SCH (08:55)
[2023-02-06] MEDS: ESCITALOPRAM 20 MG TAB PO SCH (08:55)
--- NOTE | 2023-02-06 08:55 | P.PN ---
Subjective Patient seen and examined by me on 02/05/2023 as below This is a 62-year-old female with respiratory failure. The patient was found at home with altered mental status due to difficulty breathing. She was placed in the ICU with BiPAP and has significantly improved. She has full recognition of what happened and she has been struggling for the last 3-4 days. She has an underlying history of COPD with emphysema and acute exacerbation. 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 She still continues to use tobacco. There was worry that she might need mechanical ventilation. She is slowly improving. Underlying history of otherwise opiate dependency. 02/05/2023 Patient dyspnea is improving She has minimal wheezing Blood pressure on the low side 80/44 She has leukocytosis with a 21,000 Antibiotic is currently with ceftriaxone also she is an office on Medrol 16 mg 02/06/2023 Patient feels better today with a breathing this wheezing Her blood pressure improved this morning 121/75 and currently 100/61 She still tachycardic around 111 Leukocytosis improving and 14 She is on IV Solu-Medrol and IV ceftriaxone Patient will be transferred out of ICU today Objective - Vital Signs Vital signs: Vital Signs Temp 98.0 F 02/06/23 08:20 Pulse 78 02/06/23 08:20 Resp 18 02/06/23 08:20 BP 102/62 02/06/23 08:20 Pulse Ox 95 02/06/23 08:20 FiO2 30 02/06/23 07:38 Intake & Output 02/05/23 02/06/23 02/06/23 18:59 06:59 18:59 Intake Total 1430 100 Output Total 1300 750 Balance 130 -650 Weight 76.6 kg Intake: IV 330 100 Sodium Chloride 0.9% 1, 330 100 000 ml @ 75 mls/hr IV . [id number] [facility] Rx#:[id number] Intake, IV Titration 250 Amount Vancomycin 1,250 mg In 250 Sodium Chloride 0.9% 250 ml @ 125 mls/hr IVPB Q12H [facility] Rx#:[id number] Oral 850 Output: Urine 1300 750 Other: Voiding Method External Catheter External Catheter - Exam GENERAL: The patient is alert and oriented x3, not in any acute distress. Well developed, well nourished. HEENT: Pupils are round and equally reacting to light. EOMI. No scleral icterus. No conjunctival pallor. Normocephalic, atraumatic. No pharyngeal erythema. No thyromegaly. CARDIOVASCULAR: S1 and S2 present. No murmurs, rubs, or gallops. -PULMONARY: Chest is clear to auscultation, bilateral expiratory wheezing , no crackles. ABDOMEN: Soft, nontender, nondistended, normoactive bowel sounds. No palpable organomegaly. MUSCULOSKELETAL: No joint swelling or deformity. EXTREMITIES: No cyanosis, clubbing, or pedal edema. NEUROLOGICAL: Gross neurological examination did not reveal any focal deficits. SKIN: No rashes. no petechiae. - Labs CBC & Chem 7: 02/06/23 03:45 02/06/23 03:45 Labs: Abnormal Lab Results - Last 24 Hours (Table) 02/05/23 02/06/23 02/06/23 Range/Units 11:15 03:45 03:45 WBC 14.1 H (3.8-10.6) k/uL Neutrophils # (Manual) 12.90 H (1.3-7.7) k/uL Lymphocytes # (Manual) 0.99 L (1.0-4.8) k/uL BUN 25 H (7-17) mg/dL Glucose 109 H (74-99) mg/dL POC Glucose (mg/dL) 113 H (70-110) mg/dL 02/06/23 Range/Units 06:36 WBC (3.8-10.6) k/uL Neutrophils # (Manual) (1.3-7.7) k/uL Lymphocytes # (Manual) (1.0-4.8) k/uL BUN (7-17) mg/dL Glucose (74-99) mg/dL POC Glucose (mg/dL) 163 H (70-110) mg/dL Microbiology - Last 24 Hours (Table) 02/03/23 10:50 Blood Culture - Preliminary Blood 02/04/23 08:05 Gram Stain - Preliminary Sputum Assessment and Plan Assessment: Acute COPD exacerbation possible pneumonia Hypotension Acute hypoxic hypercapnic, improving Metabolic encephalopathy improved Leukocytosis secondary to steroid effect History of coronary artery disease History of GERD Hypertension Hyperlipidemia History of seizure disorder Hyperthyroidism Peripheral neuropathy Plan: Continue with IV Solu-Medrol Continue with midodrine Continue with antibiotics with ceftriaxone Pulmonary team consult Transfer to the general medical floor Labs and medication were reviewed.. Continue same treatment. Continue with symptomatic treatment. Resume home medication. Monitor labs and vitals. DVT and GI prophylaxis. Further recommendations as per clinical course of the patient DVT prophylaxis: Subcutaneous heparin GI Prophylaxis: Ppi PT/OT: Pending Prognosis is guarded
[2023-02-06] MEDS: SODIUM CHLORIDE 0.9% 1,000 ML IV SCH (08:56)
--- NOTE | 2023-02-06 13:32 | P.PN ---
Subjective Progress Note Date: 02/06/23 This is a 62-year-old female patient with advanced COPD and chronic hypoxic and hypercapnic respiratory failure. The patient has had several hospitals this in the past for COPD exacerbation. She is a chronic smoker. She is typically maintained on oxygen at 2 L/m nasal cannula. However she has chronic hypercapnic respiratory failure in addition. The patient came into the emergency department having increased shortness of breath and altered mentation. She has also increased cough and sputum production. Denies having any chest pain. No nausea or vomiting or palpitations. She was seen in the emergency department and the patient was initially awake and subsequent she became more obtunded and lethargic. He was placed on BiPAP accordingly. She is afebrile. Her blood pressure was soft and it went as low as 80/54. The patient was given IV fluids and she was started on low-dose pressors for hemodynamic support. Chest x-ray was done that showed no acute abnormalities. It is consistent with COPD. The patient was being considered for intubation. The emergency room physician talked to the family a at least on 3 separate occasions about intubation and he wanted to hold off at this point in time. The patient received a total of 1.5 L of fluid in the emergency department and she was started on pressors. W because of 18.1 with hemoglobin 13.4 and platelet count of 287. Sodium is at 134, BNP is at 60 with a creatinine of 1 and a glucose of 107. Influenza is negative, RSV is negative, Covid 19 is negative, troponin is at 0.016, LFTs are normal, lactic acid level is at 1.6, BUN is at 60 with a creatinine of 1 and a serum bicarb is at 23. The patient had a blood gas and this was done from the right upper extremity and left upper extremity and there is essentially compatible. The pH was at 7.27 with a pCO2 of 56 and pO2 of 65. Urine drug screen was negative. The patient was normal to the intensive care unit for now. She was not on bronchodilators patient is also on IV Solu-Medrol, and she was started on accommodation of Rocephin and vancomycin as empiric antibiotic coverage. Note that the patient has advanced lung disease. On 02/04/2023, seeing the patient for a follow-up. The patient is currently off the BiPAP and she is currently on 3 L oxygen nasal cannula. Overnight, she spends the night on a BiPAP at a pressure of 12/500 FiO2 of 30%. She is more comfortable compared to yesterday. She is coughing out purulent mucous and a sample was collected today. She remains on accommodation of Rocephin and vancomycin. Her blood pressures remain soft and the most recent BP reading is 96/34 with a mean of 44. The patient is currently on norepinephrine at 0.02 microvascular kilogram per minute and she is also normal saline at the rate of 75 mL an hour. She was bolused with IV fluids in the emergency. Overall fluid balance is positive. No chest pain. The white cycles of 18.5 with a hemoglobin 12.5 and a platelet count of 298. BUN is at 60 with a creatinine of 0.6 and the sodium levels is 141. Urine drug screen is negative. Troponins are negative. A repeat chest x-ray from today shows no airspace disease or consolidations. The patient is awake and alert and she is also communicating. Most recent echocardiogram that was done on 04/13/2022 showed a normal ejection fraction of 65%. No chest pain. No altered mentation. No other significant events over the past 24 hours. On 02/05/2023, the patient continues to show ongoing improvement in her COPD exacerbation. She does not utilize the BiPAP overnight and currently is on 4 L of oxygen by nasal cannula. She is slightly tachycardic in the heart is around 120, sinus. Hemodynamically stable. She continues to have a congested cough. Less mobile spastic and less wheezing compared to yesterday. She remains on bronchodilators. She remains on IV Solu-Medrol 60 mg every 6 hours. Vancomycin is discontinued and the patient remains on IV Rocephin. She remains on DuoNeb about treatments [id number] and she is also on IV Solu-Medrol. Her outpatient medications have been resumed. Blood work from today shows a dull discomfort 21.0 with a hemoglobin 15.1 and a platelet count of 331. BUN is at 40 with a creatinine of 0.6. The LFTs are essentially within normal limits. Her chest x-ray from yesterday was reviewed and there is no airspace disease. There is hyperinflation consistent with COPD. Mental status is adequate. No signs of any CO2 narcosis at this point in time. Blood culture has been negative thus far. On 02/06/2023, the patient is feeling better. She is less short of breath. She was transferred out of the intensive care unit yesterday. She remains on a combination of Rocephin and vancomycin. She remains on bronchodilators. She remains on IV Solu-Medrol 60 mg IV every 6 hours. The blood cultures negative. Sputum cultures negative. The white cell count of 14.4 with a hemoglobin 14.5, the symptoms patient is a sodium level of 140. Potassium of 4,, the BUN is at 25 with a creatinine of 0.7. The patient is currently on 3 L O2 nasal cannula with a pulse ox of 95%. Objective - Vital Signs Vital signs: Vital Signs Temp 98.0 F 02/06/23 08:20 Pulse 78 02/06/23 08:20 Resp 18 02/06/23 08:20 BP 102/62 02/06/23 08:20 Pulse Ox 95 02/06/23 08:20 FiO2 30 02/06/23 07:38 Intake & Output 02/05/23 02/06/23 02/06/23 18:59 06:59 18:59 Intake Total 1430 100 Output Total 1300 750 Balance 130 -650 Weight 76.6 kg Intake: IV 330 100 Sodium Chloride 0.9% 1, 330 100 000 ml @ 75 mls/hr IV . [id number] [facility] Rx#:[id number] Intake, IV Titration 250 Amount Vancomycin 1,250 mg In 250 Sodium Chloride 0.9% 250 ml @ 125 mls/hr IVPB Q12H [facility] Rx#:[id number] Oral 850 Output: Urine 1300 750 Other: Voiding Method External Catheter External Catheter - Exam Patient is currently lethargic, awake and she is communicating and she is on oxygen at 4 L per minute nasal cannula Breathing is obviously labored. She has a BM index of 25.8 Head exam was generally normal. There was no scleral icterus or corneal arcus. Mucous membranes were moist. HEENT examination is grossly unremarkable. Neck supple. Full range of motion. No adenopathy thyromegaly or neck vein distention. Cardiovascular examination reveals regular rhythm rate. S1-S2 normal. No S3 or S4. No discernible murmur noted. Heart sounds are very distant. Lungs reveal coarse inspiratory and expiratory rhonchi. There are some expiratory wheezes. Breath sounds are equal bilaterally but diminished throughout. No crackles appreciated. Breath sounds are significantly diminished bilaterally Abdomen soft bowel sounds are heard. No masses or tenderness. Extremities are intact. No cyanosis clubbing or edema. Skin is without rash or lesion. Neurologic examination is brief but nonfocal. awake and alert and she is moving all 4 extremities. - Labs CBC & Chem 7: 02/06/23 03:45 02/06/23 03:45 Labs: Abnormal Lab Results - Last 24 Hours (Table) 02/05/23 02/06/23 02/06/23 Range/Units 11:15 03:45 03:45 WBC 14.1 H (3.8-10.6) k/uL Neutrophils # (Manual) 12.90 H (1.3-7.7) k/uL Lymphocytes # (Manual) 0.99 L (1.0-4.8) k/uL BUN 25 H (7-17) mg/dL Glucose 109 H (74-99) mg/dL POC Glucose (mg/dL) 113 H (70-110) mg/dL 02/06/23 Range/Units 06:36 WBC (3.8-10.6) k/uL Neutrophils # (Manual) (1.3-7.7) k/uL Lymphocytes # (Manual) (1.0-4.8) k/uL BUN (7-17) mg/dL Glucose (74-99) mg/dL POC Glucose (mg/dL) 163 H (70-110) mg/dL Microbiology - Last 24 Hours (Table) 02/03/23 10:50 Blood Culture - Preliminary Blood 02/04/23 08:05 Gram Stain - Preliminary Sputum Assessment and Plan Plan: Acute hypoxic/hypercapnic respiratory failure, currently off BiPAP on 3-4 L of oxygen by nasal cannula, improving slowly Acute COPD exacerbation, improving. The patient has taken bronchitis with ongoing bronchospasm and wheezing. Chest x-ray showed no evidence of any pneumonia, currently covered with IV Rocephin as an impact antibiotic coverage Leukocytosis, improving Altered mentation secondary to CO2 narcosis, improving while on the BIPAP and the patient was awake at the time of my evaluation in the MICU, mental status is improved. This was probably related to a component of CO2 narcosis, improved and the mental status is back to normal Advanced COPD maintain on Trelegy Ellipta on outpatient basis, stop the medication as the patient was unable to afford. Nicotine addiction. CAD with previous stent placement. The patient is a limited troponin leak secondary to above Hypotension, currently being assisted IV fluids. Patient has been off pressors since 4 AM Mild leukocytosis Previous history of Covid 19 infection from October 2021 History of seizure disorder, previous hospitalization for a breakthrough seizure, currently on Keppra History of hypothyroidism. History of hyperlipidemia. Left carotid artery stenosis, post carotid stenting that was done in October 2022 Plan Patient is currently on oxygen at 3 L Titrate oxygen flow to summer between 3-4 L limited saturation above 90% Sputum and blood cultures are still negative Check pro calcitonin, the level is at 0.03 Continue Rocephin and DC vancomycin Continue IV fluids normal saline at KVO continue bronchodilators continue steroids Home medications have been resumed Provide diet Long-term prognosis poor as the patient advanced lung disease. The patient be kept on a medical floor
[2023-02-06] MEDS: DOXEPIN 10 MG CAP PO PRN (20:42)
[2023-02-06] MEDS: ATORVASTATIN 40 MG TAB PO SCH (20:43)
[2023-02-06 22:17] VITALS: RESP 18
[2023-02-07] MEDS: HYDROcodone/APAP 5-325MG 1 EACH TAB PO PRN ×3 (01:59→10:22)
[2023-02-07] MEDS: VANCOMYCIN 1,250 MG in SODIUM CHLORIDE 0.9% 250 ML IVPB SCH (02:00)
[2023-02-07] MEDS: methylPREDNISolone SOD SUCCI 125 MG/2 ML VIAL IV SCH (05:56)
[2023-02-07] MEDS: LEVOTHYROXINE 100 MCG TAB PO SCH (05:56)
[2023-02-07] MEDS: MIDODRINE 5 MG TAB PO SCH (06:37)
[2023-02-07] MEDS: PANTOPRAZOLE 40 MG TABLET PO SCH (06:40)
[2023-02-07] MEDS: FORMOTEROL FUMARATE 20 MCG/2 ML NEBU INHALATION SCH (08:30)
[2023-02-07] MEDS: IPRATROPIUM-ALBUTEROL 3 ML NEB INHALATION SCH (08:40)
[2023-02-07] MEDS: BUDESONIDE 1 MG/2 ML NEBU INHALATION SCH (08:40)
[2023-02-07 08:58] VITALS: BP 121/80; TEMP 98.3
--- NOTE | 2023-02-07 09:01 | P.DS ---
Providers Date of admission: 02/03/23 14:25 Attending physician: Jose F Mcwilliams Consults: 02/03/23 14:22 Consult Physician Stat Consulting Provider: Karlie Marques Consult Reason/Comments: Respiratory failure, COPD Do you want consulting provider notified?: Yes Primary care physician: Jose F Mcwilliams - Discharge Diagnosis(es) (1) COPD exacerbation Current Visit: Yes Status: Acute (2) Respiratory failure Current Visit: Yes Status: Acute (3) CAD (coronary artery disease) Current Visit: No Status: Acute (4) History of carotid endarterectomy Current Visit: No Status: Acute (5) Hypotension Current Visit: No Status: Acute (6) Hypothyroid Current Visit: No Status: Acute (7) Opiate dependence Current Visit: No Status: Acute (8) Tobacco abuse Current Visit: No Status: Acute (9) Weakness Current Visit: No Status: Acute Hospital Course: This is a 62-year-old female who is admitted for respiratory failure. She was treated in the ICU with BiPAP and has significantly improved. She was transferred to the medical floor yesterday. She is tolerating diet. She is anxious to go home. She does have home oxygen. She still continues to use tobacco at home. Patient may be discharged home today if cleared by pulmonology. Will continue with a steroid taper at home. Patient seen and evaluated by nurse practitioner, physician in agreement with plan Patient Condition at Discharge: Fair Plan - Discharge Summary New Discharge Prescriptions: New predniSONE 10 mg PO DAILY 9 Days #21 tab Continue Escitalopram [Lexapro] 40 mg PO DAILY Nitroglycerin Sl Tabs [Nitrostat] 0.4 mg SL Q5M PRN PRN Reason: Chest Pain Doxepin [SINEquan] 10 mg PO HS levETIRAcetam [Keppra] 1,500 mg PO BID Albuterol Sulfate [Albuterol Sulfate Hfa] 1 - 2 puff PO RT-Q6H PRN PRN Reason: Shortness Of Breath Levothyroxine Sodium 200 mcg PO DAILY Gabapentin 600 mg PO TID Atorvastatin [Lipitor] 40 mg PO HS #30 tab Clopidogrel [Plavix] 75 mg PO DAILY #90 tablet cloNIDine HCL [Catapres] 0.2 mg PO BID buprenorphine HCL [Subutex] 3 mg SL BID Discharge Medication List Escitalopram [Lexapro] 40 mg PO DAILY 09/10/18 [History] Levothyroxine Sodium 200 mcg PO DAILY 08/20/20 [History] Nitroglycerin Sl Tabs [Nitrostat] 0.4 mg SL Q5M PRN 08/20/20 [History] Gabapentin 600 mg PO TID 06/18/21 [History] Doxepin [SINEquan] 10 mg PO HS 02/25/22 [History] Atorvastatin [Lipitor] 40 mg PO HS #30 tab 06/21/22 [Rx] Clopidogrel [Plavix] 75 mg PO DAILY #90 tablet 10/28/22 [Rx] Albuterol Sulfate [Albuterol Sulfate Hfa] 1 - 2 puff PO RT-Q6H PRN 02/03/23 [History] buprenorphine HCL [Subutex] 3 mg SL BID 02/03/23 [History] cloNIDine HCL [Catapres] 0.2 mg PO BID 02/03/23 [History] levETIRAcetam [Keppra] 1,500 mg PO BID 02/03/23 [History] predniSONE 10 mg PO DAILY 9 Days #21 tab 02/07/23 [Rx] Follow up Appointment(s)/Referral(s): [facility], [NON-STAFF] - 1-2 Days Jose F Mcwilliams MD [Primary Care Provider] - 1 Week (Office is closed at time of discharge. Please call for follow-up appointment.) Karlie Marques MD [STAFF PHYSICIAN] - 02/16/23 8:45 am Discharge Disposition: HOME WITH HOME HEALTH SERVICES
[2023-02-07] MEDS: GABAPENTIN 300 MG CAP PO SCH (09:26)
[2023-02-07] MEDS: CLOPIDOGREL 75 MG TAB PO SCH (09:26)
[2023-02-07] MEDS: HEPARIN SODIUM,PORCINE 5,000 UNIT/ML 1 ML VIAL SQ SCH (09:26)
[2023-02-07] MEDS: ESCITALOPRAM 20 MG TAB PO SCH (09:27)
[2023-02-07 10:03] VITALS: PULSE 102
--- NOTE | 2023-02-07 12:11 | P.PN ---
Subjective Progress Note Date: 02/07/23 This is a 62-year-old female patient with advanced COPD and chronic hypoxic and hypercapnic respiratory failure. The patient has had several hospitals this in the past for COPD exacerbation. She is a chronic smoker. She is typically maintained on oxygen at 2 L/m nasal cannula. However she has chronic hypercapnic respiratory failure in addition. The patient came into the emergency department having increased shortness of breath and altered mentation. She has also increased cough and sputum production. Denies having any chest pain. No nausea or vomiting or palpitations. She was seen in the emergency department and the patient was initially awake and subsequent she became more obtunded and lethargic. He was placed on BiPAP accordingly. She is afebrile. Her blood pressure was soft and it went as low as 80/54. The patient was given IV fluids and she was started on low-dose pressors for hemodynamic support. Chest x-ray was done that showed no acute abnormalities. It is consistent with COPD. The patient was being considered for intubation. The emergency room physician talked to the family a at least on 3 separate occasions about intubation and he wanted to hold off at this point in time. The patient received a total of 1.5 L of fluid in the emergency department and she was s tarted on pressors. W because of 18.1 with hemoglobin 13.4 and platelet count of 287. Sodium is at 134, BNP is at 60 with a creatinine of 1 and a glucose of 107. Influenza is negative, RSV is negative, Covid 19 is negative, troponin is at 0.016, LFTs are normal, lactic acid level is at 1.6, BUN is at 60 with a creatinine of 1 and a serum bicarb is at 23. The patient had a blood gas and this was done from the right upper extremity and left upper extremity and there is essentially compatible. The pH was at 7.27 with a pCO2 of 56 and pO2 of 65. Urine drug screen was negative. The patient was normal to the intensive care unit for now. She was not on bronchodilators patient is also on IV Solu-Medrol, and she was started on accommodation of Rocephin and vancomycin as empiric antibiotic coverage. Note that the patient has advanced lung disease. On 02/04/2023, seeing the patient for a follow-up. The patient is currently off the BiPAP and she is currently on 3 L oxygen nasal cannula. Overnight, she spends the night on a BiPAP at a pressure of 12/500 FiO2 of 30%. She is more comfortable compared to yesterday. She is coughing out purulent mucous and a sample was collected today. She remains on accommodation of Rocephin and vancomycin. Her blood pressures remain soft and the most recent BP reading is 96/34 with a mean of 44. The patient is currently on norepinephrine at 0.02 microvascular kilogram per minute and she is also normal saline at the rate of 75 mL an hour. She was bolused with IV fluids in the emergency. Overall fluid balance is positive. No chest pain. The white cycles of 18.5 with a hemoglobin 12.5 and a platelet count of 298. BUN is at 60 with a creatinine of 0.6 and the sodium levels is 141. Urine drug screen is negative. Troponins are negative. A repeat chest x-ray from today shows no airspace disease or consolidations. The patient is awake and alert and she is also communicating. Most recent echocardiogram that was done on 04/13/2022 showed a normal ejection fraction of 65%. No chest pain. No altered mentation. No other significant events over the past 24 hours. On 02/05/2023, the patient continues to show ongoing improvement in her COPD exacerbation. She does not utilize the BiPAP overnight and currently is on 4 L of oxygen by nasal cannula. She is slightly tachycardic in the heart is around 120, sinus. Hemodynamically stable. She continues to have a congested cough. Less mobile spastic and less wheezing compared to yesterday. She remains on bronchodilators. She remains on IV Solu-Medrol 60 mg every 6 hours. Vancomycin is discontinued and the patient remains on IV Rocephin. She remains on DuoNeb about treatments [id number] and she is also on IV Solu-Medrol. Her outpatient medications have been resumed. Blood work from today shows a dull discomfort 21.0 with a hemoglobin 15.1 and a platelet count of 331. BUN is at 40 with a creatinine of 0.6. The LFTs are essentially within normal limits. Her chest x-ray from yesterday was reviewed and there is no airspace disease. There is hyperinflation consistent with COPD. Mental status is adequate. No signs of any CO2 narcosis at this point in time. Blood culture has been negative thus far. On 02/06/2023, the patient is feeling better. She is less short of breath. She was transferred out of the intensive care unit yesterday. She remains on a combination of Rocephin and vancomycin. She remains on bronchodilators. She remains on IV Solu-Medrol 60 mg IV every 6 hours. The blood cultures negative. Sputum cultures negative. The white cell count of 14.4 with a hemoglobin 14.5, the symptoms patient is a sodium level of 140. Potassium of 4,, the BUN is at 25 with a creatinine of 0.7. The patient is currently on 3 L O2 nasal cannula with a pulse ox of 95%. The patient is seen today 02/07/2023 in follow-up on the regular medical floor. She is currently sitting up in a chair at the bedside. Awake and alert in no acute distress. She is maintaining O2 saturations in the 90s on 2 L/m per nasal cannula. She is feeling better today compared to yesterday. Feeling nearly back to her baseline. Blood cultures revealed no growth. Sputum culture revealed Haemophilus influenza. She is continued on DuoNeb inhalations, Pulmico rt and Perforomist inhalations, antibiotics in the form of ceftriaxone. She remains on IV Solu-Medrol. Normal saline at [facility]. Objective - Vital Signs Vital signs: Vital Signs Temp 98.3 F 02/07/23 07:11 Pulse 102 H 02/07/23 09:59 Resp 18 02/07/23 09:59 BP 121/80 02/07/23 07:11 Pulse Ox 90 L 02/07/23 08:34 FiO2 30 02/06/23 07:38 Intake & Output 02/06/23 02/07/23 02/07/23 18:59 06:59 18:59 Output Total 900 950 Balance -900 -950 Weight 75.5 kg Output: Urine 900 950 Other: Voiding Method External Catheter Toilet # Voids 1 - Exam GENERAL EXAM: Alert, active, pleasant 62-year-old female, on 2 L nasal cannula, comfortable in no apparent distress. HEAD: Normocephalic. EYES: Normal reaction of pupils, equal size. NOSE: Clear with pink turbinates. THROAT: No erythema or exudates. NECK: No masses, no JVD. CHEST: No chest wall deformity. LUNGS: Equal air entry with faint end expiratory wheeze, diminished. CVS: S1 and S2 normal with no audible murmur, regular rhythm. ABDOMEN: No hepatosplenomegaly, normal bowel sounds, no guarding or rigidity. SPINE: No scoliosis or deformity SKIN: No rashes CENTRAL NERVOUS SYSTEM: No focal deficits, tone is normal in all 4 extremities. EXTREMITIES: There is no peripheral edema. No clubbing, no cyanosis. Peripheral pulses are intact. - Labs CBC & Chem 7: 02/06/23 03:45 02/06/23 03:45 Labs: Microbiology - Last 24 Hours (Table) 02/04/23 08:05 Gram Stain - Final Sputum Sputum Culture - Final Haemophilus influenzae 02/03/23 10:50 Blood Culture - Preliminary Blood Assessment and Plan Assessment: Acute hypoxic/hypercapnic respiratory failure, currently off BiPAP on 2 L of oxygen by nasal cannula, recovered Acute COPD exacerbation, recovered. Chest x-ray showed no evidence of any pneumonia, currently covered with IV Rocephin as an empiric antibiotic coverage Leukocytosis, improving Altered mentation secondary to CO2 narcosis, recovered. Advanced COPD maintain on Trelegy Ellipta on outpatient basis, but stopped the medication as the patient was unable to afford it. Nicotine addiction CAD with previous stent placement. The patient is a limited troponin leak secondary to above Hypotension, currently being assisted IV fluids. Patient has been off pressors since 4 AM Mild leukocytosis Previous history of Covid 19 infection from October 2021 History of seizure disorder, previous hospitalization for a breakthrough seizure, currently on Keppra History of hypothyroidism History of hyperlipidemia Left carotid artery stenosis, post carotid stenting that was done in October 2022 Plan: The patient was seen and evaluated Medications reviewed Feeling back to her baseline She does have home oxygen Continue her home pulmonary medications Continue her prednisone taper Encouraged regarding the importance of complete smoking cessation Follow-up in our office with Dr. Thurman in 1 week post discharge This patient was seen independently by the nurse practitioner I have personally seen and examined the patient, performed the documentation and the assessment and plan as written. Number of minutes spent on the visit: 20.
[2023-02-07] MEDS ORDERED: VANCOMYCIN TROUGH DUE 1 EACH MISC MISCELLANE ONE (13:00)
== END 2023-02-07 10:45 | disposition home health service (06) | DRG 189 ==
LOC: EC 10:18 → 2SICU 14:25 → 4SSUR 02-06 08:14
PROVIDERS: ADMIT Family Medicine; ATTEND Family Medicine
PROC: 5A09357 Assistance with Respiratory Ventilation, Less than 24 Consecutive Hours, Continuous Positive Airway Pressure (ICD-10-PCS; principal; 2023-02-03)
PROC: 3E033XZ Introduction of Vasopressor into Peripheral Vein, Percutaneous Approach (ICD-10-PCS; 2023-02-03)
DX: J96.22 Acute and chronic respiratory failure with hypercapnia (principal); G93.41 Metabolic encephalopathy; F11.20 Opioid dependence, uncomplicated; J44.1 Chronic obstructive pulmonary disease with (acute) exacerbation; G93.1 Anoxic brain damage, not elsewhere classified; I95.9 Hypotension, unspecified; J96.21 Acute and chronic respiratory failure with hypoxia; J43.9 Emphysema, unspecified; G40.909 Epilepsy, unspecified, not intractable, without status epilepticus; I73.9 Peripheral vascular disease, unspecified; E03.9 Hypothyroidism, unspecified; E78.5 Hyperlipidemia, unspecified; F32.A Depression, unspecified; F41.9 Anxiety disorder, unspecified; G62.9 Polyneuropathy, unspecified; I10 Essential (primary) hypertension; D72.829 Elevated white blood cell count, unspecified; T38.0X5A Adverse effect of glucocorticoids and synthetic analogues, initial encounter; I25.10 Atherosclerotic heart disease of native coronary artery without angina pectoris; I25.2 Old myocardial infarction; G89.29 Other chronic pain; I65.22 Occlusion and stenosis of left carotid artery; K21.9 Gastro-esophageal reflux disease without esophagitis; F17.210 Nicotine dependence, cigarettes, uncomplicated; Z71.6 Tobacco abuse counseling; Z79.02 Long term (current) use of antithrombotics/antiplatelets; Z79.890 Hormone replacement therapy; Z79.899 Other long term (current) drug therapy; Z95.5 Presence of coronary angioplasty implant and graft; Z86.16 Personal history of COVID-19
CPT/HCPCS: 36415; 36600; 51702; 70450; 71045; 80048; 80053; 80202; 80306; 82803; 82805; 83605; 83735; 84484; 85025; 85610; 85730; 87040; 87070; 87205; 87636; 93005; 94640; 94660; 94760; 96361; 96365; 96375; 99291

== ENCOUNTER 2023-02-23 11:39 | Inpatient (IN) | payer MEDICARE ==
[2023-02-23 12:04] LABS: Glucose,Whole Blood 222 mg/dL (70-110)
--- NOTE | 2023-02-23 12:15 | ED ---
General Adult HPI <Siri Cabrera Niharika - Last Filed: 02/23/23 16:27> - General Source: patient Mode of arrival: wheelchair Limitations: no limitations <Jaguar Ramirez - Last Filed: 03/02/23 07:17> - General Chief complaint: Weakness Stated complaint: Altered Mental Status Time Seen by Provider: 02/23/23 11:57 - History of Present Illness Initial comments: Dictation was produced using [email or web address] dictation software. please excuse any grammatical, word or spelling errors. Chief Complaint: 62-year-old female presents emergency department with generalized weakness and confusion History of Present Illness: Patient is 62-year-old female she is a good historian. States she is here for confusion and generalized weakness. She feels more confused and her upper extremities and her lower extremity states that she'll she is dropping things with both hands. Last 48 hours she's been feeling weak and confused. She is here with her sister. Patient also complains of slightly worsened shortness of breath. She has history of COPD. She has history of being admitted on multiple occasions for respiratory issues. She has a history of low blood pressure according to patient she was started on new medication to increase her blood pressure. The ROS documented in this emergency department record has been reviewed and confirmed by me. Those systems with pertinent positive or negative responses have been documented in the HPI. All other systems are other negative and/or noncontributory. (Jaguar Ramirez) - Related Data Home Medications Medication Instructions Recorded Confirmed Escitalopram [Lexapro] 40 mg PO DAILY 11/28/17 02/23/23 Levothyroxine Sodium 200 mcg PO DAILY 08/20/20 02/23/23 Nitroglycerin Sl Tabs [Nitrostat] 0.4 mg SL Q5M PRN 08/20/20 02/23/23 Gabapentin 600 mg PO TID 06/18/21 02/23/23 Doxepin [SINEquan] 10 mg PO HS 02/25/22 02/23/23 Albuterol Sulfate [Albuterol 1 - 2 puff PO RT-Q6H PRN 02/03/23 02/23/23 Sulfate Hfa] buprenorphine HCL [Subutex] 4 mg SL DAILY 02/03/23 02/23/23 cloNIDine HCL [Catapres] 0.2 mg PO BID 02/03/23 02/23/23 levETIRAcetam [Keppra] 1,500 mg PO BID 02/03/23 02/23/23 Midodrine HCl [ProAmatine] 10 mg PO BID 02/23/23 02/23/23 buprenorphine HCL [Subutex] 2 mg SL HS 02/23/23 02/23/23 Previous Rx's Medication Instructions Recorded Atorvastatin [Lipitor] 40 mg PO HS #30 tab 06/21/22 Clopidogrel [Plavix] 75 mg PO DAILY #90 tablet 10/28/22 Aspirin 81 mg PO DAILY tab 02/25/23 Azithromycin [Zithromax] 500 mg PO DAILY 3 Days #3 tab 02/25/23 predniSONE [Deltasone] 40 mg PO DAILY 5 Days #5 tab 02/25/23 Allergies Allergy/AdvReac Type Severity Reaction Status Date / Time No Known Allergies Allergy Verified 02/23/23 13:28 Review of Systems ROS Other: All systems not noted in ROS Statement are negative. <Siri Cabrera - Last Filed: 02/23/23 16:27> ROS Other: All systems not noted in ROS Statement are negative. <aJguar Ramirez - Last Filed: 03/02/23 07:17> ROS Statement: Those systems with pertinent positive or pertinent negative responses have been documented in the HPI. Past Medical History Past Medical History: Asthma, Coronary Artery Disease (CAD), Chest Pain / Angina, COPD, GERD/Reflux, Hyperlipidemia, Hypertension, Myocardial Infarction (OH), Respiratory Disorder, Seizure Disorder, Thyroid Disorder, Vascular Disorder Additional Past Medical History / Comment(s): PRN oxygen use, 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 carotid blockage, PAD, vertigo at times. Last Myocardial Infarction Date:: 06/2022 History of Any Multi-Drug Resistant Organisms: None Reported Past Surgical History: Heart Catheterization, Heart Catheterization With Stent, Hysterectomy, Joint Replacement, Orthopedic Surgery Additional Past Surgical History / Comment(s): RT ROTATOR CUFF REPAIR, R total knee, CYSTS REMOVED FROM UNDER ARMS AND HANDS, arch studies, L caratid endartectomy, 4 cardiac stents, several peripheral stents, 07/18/18 left subclavian stent, arch studies. Past Anesthesia/Blood Transfusion Reactions: No Reported Reaction Additional Past Anesthesia/Blood Transfusion Reaction / Comment(s): Pt states that she is unable to go under general anesthesia per her security director due to low functioning lungs. Pt has never received blood. Date of Last Stent Placement:: Nov 2017 Past Psychological History: Anxiety, Depression Smoking Status: Current every day smoker Past Alcohol Use History: None Reported Past Drug Use History: Marijuana - Past Family History Mother Family Medical History: Cancer Sister(s) Family Medical History: Cancer <Jaguar Ramirez - Last Filed: 03/02/23 07:17> General Exam Limitations: no limitations <Jaguar Ramirez - Last Filed: 03/02/23 07:17> - General Exam Comments Initial Comments: PHYSICAL EXAM: General Impression: Alert and oriented x3, not in acute distress HEENT: Normocephalic atraumatic, extra-ocular movements intact, pupils equal and reactive to light bilaterally, mucous membranes moist. Cardiovascular: Heart regular rate and rhythm Chest: Able to complete full sentences, no retractions, no tachypnea Abdomen: abdomen soft, non-tender, non-distended, no organomegaly Musculoskeletal: Pulses present and equal in all extremities, no peripheral edema Motor: no focal deficits noted Neurological: CN II-XII grossly intact, no focal motor or sensory deficits noted, NIH 0 Skin: Intact with no visualized rashes Psych: Normal affect and mood (Jaguar Ramirez) Course <Jaguar Ramirez - Last Filed: 03/02/23 07:17> Vital Signs 02/23/23 02/23/23 02/23/23 11:49 11:53 11:55 Temperature 98.2 F 98.0 F Pulse Rate 56 L 104 H Pulse Rate [ Pulse Oximetery ] Respiratory 20 20 20 Rate Blood Pressure 56/33 88/62 Blood Pressure [Left Arm] O2 Sat by Pulse 90 L 93 L Oximetry 02/23/23 02/23/23 02/23/23 12:00 12:30 13:00 Temperature Pulse Rate 99 101 H 99 Pulse Rate [ Pulse Oximetery ] Respiratory 22 22 22 Rate Blood Pressure 88/62 75/65 93/71 Blood Pressure [Left Arm] O2 Sat by Pulse 94 L 94 L 94 L Oximetry 02/23/23 02/23/23 02/23/23 15:00 16:00 17:00 Temperature Pulse Rate 95 90 86 Pulse Rate [ Pulse Oximetery ] Respiratory 20 20 21 Rate Blood Pressure 103/52 100/68 104/66 Blood Pressure [Left Arm] O2 Sat by Pulse 96 97 97 Oximetry 02/23/23 02/23/23 02/23/23 17:02 18:00 19:00 Temperature Pulse Rate 88 94 Pulse Rate [ 86 Pulse Oximetery ] Respiratory 20 20 20 Rate Blood Pressure 118/84 101/73 Blood Pressure 50/30 [Left Arm] O2 Sat by Pulse 95 99 94 L Oximetry - Reevaluation(s) Reevaluation #1: 02/23/23 12:15 Patient seen and evaluated immediately upon arrival. She is found to be hypotensive with initial blood pressure 56/33. Repeat is 88/62. Chart review was performed patient has multiple admissions for hypotension and respiratory issues. She is well-appearing at bedside states that her blood pressure is pretty near baseline. She does not appear to be any significant distress. States she's confused however has normal neurologic exam. (Jaguar Ramirez) Reevaluation #2: 02/23/23 14:04 More history was obtained from the daughter at the bedside states that she was recently discharged from an inpatient admission late last month. States that since going home she is developed URI type symptoms. (Jaguar Ramirez) EKG Findings - EKG Comments: EKG Findings:: My EKG interpretation: Ventricular rate 106, sinus tachycardia,. 154, personally, QTC 402. No [place] prolongation, no QTC prolongation, no ST or T- wave changes noted. Overall, this EKG is unremarkable <Jaguar Ramirez - Last Filed: 03/02/23 07:17> Medical Decision Making - Lab Data Result diagrams: 02/23/23 12:17 02/23/23 12:17 <Siri Cabrera - Last Filed: 02/23/23 16:27> - Lab Data Result diagrams: 02/25/23 07:09 02/25/23 07:09 <Jaguar Ramirez - Last Filed: 03/02/23 07:17> - Medical Decision Making Was pt. sent in by a medical professional or institution ([facility], WAITER, urgent care, hospital, or group home...) When possible be specific @ -No Did you speak to anyone other than the patient for history (EMS, parent, family, police, friend...)? What history was obtained from this source @ -No Did you review nursing and triage notes (agree or disagree)? Why? @ -I reviewed and agree with nursing and triage notes Were old charts reviewed (outside hosp., previous admission, EMS record, old EKG, old radiological studies, urgent care reports/EKG's, group home records)? Report findings @ -Most recent Discharge summary was reviewed showing patient was admitted for several days for shortness of breath and hypotension Differential Diagnosis (chest pain, altered mental status, abdominal pain women, abdominal pain men, vaginal bleeding, musculoskeletal, weakness, fever, dyspnea, syncope, headache, dizziness, GI bleed, back pain, seizure, CVA, palpatations, mental health)? @ -Differential Weakness: Hypoglycemia, shock, sepsis, hyponatremia, anemia, infection, OH, ETOH, adverse medicine reaction, overdose, stroke, this is not meant to be an all-inclusive list. EKG interpreted by me (3pts min.). @ -See above X-rays interpreted by me (1pt min.). @ -Two-view chest x-ray shows no acute processes CT interpreted by me (1pt min.). @ -Computed tomography scan of the head and C-spine shows no acute processes. U/S interpreted by me (1pt. min.). @ -None done What testing was considered but not performed or refused? (CT, X-rays, U/S, labs)? Why? @ -None What meds were considered but not given or refused? Why? @ -None Did you discuss the management of the patient with other professionals (professionals i.e. [facility] Lopez, WAITER, lab, RT, psych nurse, social service assistant, face boss, teacher, correction officer head, case mgr)? Give summary @ -Case discussed with Dr. Mcwilliams for admission Was smoking cessation discussed for >3mins.? @ -No Was critical care preformed (if so, how long)? @ -Yes, 33 minutes Were there social determinants of health that impacted care today? How? (Homelessness, low income, unemployed, alcoholism, drug addiction, transportation, low edu. Level, literacy, decrease access to med. care, detention, rehab)? @ -No Was there de-escalation of care discussed even if they declined (Discuss DNR or withdrawal of care, Hospice)? DNR status @ -No What co-morbidities impacted this encounter? (DM, HTN, Smoking, COPD, CAD, Ca ncer, CVA, ARF, Chemo, Hep., AIDS, mental health diagnosis, sleep apnea, morbid obesity)? @ - COPD hypotension Was patient admitted / discharged? Hospital course, mention meds given and route, prescriptions, significant lab abnormalities, going to OR and other p ertinent info. @ -62-year-old female presents emergency department for generalized weakness. Daughter states she did have some URI symptoms that started several days ago. Vital signs upon arrival are within acceptable limits. She does have some mild tachycardia and also some mild hypoxia. She states that her blood pressure is baseline low. Serial blood pressures are within acceptable limits. Laboratory evaluation shows normal CBC, coag panel is negative. Metabolic panel is negative. Lactic acidosis of 3.0 with troponin of 0.180. Unclear what patient's elevated troponin is from. D-dimer is elevated. CT angiography shows no pulmonary embolism or acute process. Case discussed with Dr. Mcwilliams for admission. Undiagnosed new problem with uncertain prognosis? @ -No Drug Therapy requiring intensive monitoring for toxicity (Heparin, Nitro, Insulin, Cardizem)? @ -No Were any procedures done? @ -No Diagnosis/symptom? Acute, or Chronic, or Acute on Chronic? Uncomplicated (without systemic symptoms) or Complicated (systemic symptoms)? @ -Generalized weakness, elevated troponin Side effects of treatment? @ -No Exacerbation, Progression, or Severe Exacerbation? @ -No Poses a threat to life or bodily function? How? (Chest pain, USA, OH, pneumonia, PE, COPD, DKA, ARF, appy, cholecystitis, CVA, Diverticulitis, Homicidal, Suicidal, threat to staff... and all critical care pts) @ -yes (Jaguar Ramirez) - Lab Data Lab Results 02/23/23 02/23/23 02/23/23 Range/Units 11:52 12:17 12:17 WBC 7.2 (3.8-10.6) k/uL RBC 3.83 (3.80-5.40) m/uL Hgb 11.8 (11.4-16.0) gm/dL Hct 37.0 (34.0-46.0) % MCV 96.6 (80.0-100.0) fL MCH 30.8 (25.0-35.0) pg MCHC 31.8 (31.0-37.0) g/dL RDW 15.4 (11.5-15.5) % Plt Count 216 (150-450) k/uL MPV 7.4 Neutrophils % 68 % Lymphocytes % 22 % Monocytes % 6 % Eosinophils % 2 % Basophils % 0 % Neutrophils # 4.8 (1.3-7.7) k/uL Lymphocytes # 1.6 (1.0-4.8) k/uL Monocytes # 0.4 (0-1.0) k/uL Eosinophils # 0.1 (0-0.7) k/uL Basophils # 0.0 (0-0.2) k/uL Hypochromasia Moderate PT 10.1 (10.0-12.5) sec INR 0.9 (<1.2) APTT 23.2 (22.0-30.0) sec D-Dimer (<0.60) mg/L FEU Sodium (137-145) mmol/L Potassium (3.5-5.1) mmol/L Chloride (98-107) mmol/L Carbon Dioxide (22-30) mmol/L Anion Gap mmol/L BUN (7-17) mg/dL Creatinine (0.52-1.04) mg/dL Est GFR (CKD-EPI)AfAm (>60 ml/min/1.73 sqM) Est GFR (CKD-EPI)NonAf (>60 ml/min/1.73 sqM) Glucose (74-99) mg/dL POC Glucose (mg/dL) 222 H (70-110) mg/dL POC Glu Senior Mechanical Development Engineer ID Alaina Roberto Lactic Ac Sepsis Rflx Plasma Lactic Acid Stepan (0.7-2.0) mmol/L Calcium (8.4-10.2) mg/dL Magnesium (1.6-2.3) mg/dL Total Bilirubin (0.2-1.3) mg/dL AST (14-36) U/L ALT (4-34) U/L Alkaline Phosphatase (38-126) U/L Troponin I (0.000-0.034) ng/mL Total Protein (6.3-8.2) g/dL Albumin (3.5-5.0) g/dL Influenza Type A (PCR) (Not Detectd) Influenza Type B (PCR) (Not Detectd) RSV (PCR) (Not Detectd) SARS-CoV-2 (PCR) (Not Detectd) 02/23/23 02/23/23 02/23/23 Range/Units 12:17 12:17 12:17 WBC (3.8-10.6) k/uL RBC (3.80-5.40) m/uL Hgb (11.4-16.0) gm/dL Hct (34.0-46.0) % MCV (80.0-100.0) fL MCH (25.0-35.0) pg MCHC (31.0-37.0) g/dL RDW (11.5-15.5) % Plt Count (150-450) k/uL MPV Neutrophils % % Lymphocytes % % Monocytes % % Eosinophils % % Basophils % % Neutrophils # (1.3-7.7) k/uL Lymphocytes # (1.0-4.8) k/uL Monocytes # (0-1.0) k/uL Eosinophils # (0-0.7) k/uL Basophils # (0-0.2) k/uL Hypochromasia PT (10.0-12.5) sec INR (<1.2) APTT (22.0-30.0) sec D-Dimer (<0.60) mg/L FEU Sodium 136 L (137-145) mmol/L Potassium 4.3 (3.5-5.1) mmol/L Chloride 98 (98-107) mmol/L Carbon Dioxide 25 (22-30) mmol/L Anion Gap 13 mmol/L BUN 10 (7-17) mg/dL Creatinine 0.67 (0.52-1.04) mg/dL Est GFR (CKD-EPI)AfAm >90 (>60 ml/min/1.73 sqM) Est GFR (CKD-EPI)NonAf >90 (>60 ml/min/1.73 sqM) Glucose 145 H (74-99) mg/dL POC Glucose (mg/dL) (70-110) mg/dL POC Glu Senior Mechanical Development Engineer ID Lactic Ac Sepsis Rflx Plasma Lactic Acid Stepan 3.0 H* (0.7-2.0) mmol/L Calcium 8.5 (8.4-10.2) mg/dL Magnesium 2.1 (1.6-2.3) mg/dL Total Bilirubin 0.4 (0.2-1.3) mg/dL AST 22 (14-36) U/L ALT 19 (4-34) U/L Alkaline Phosphatase 85 (38-126) U/L Troponin I 0.180 H* (0.000-0.034) ng/mL Total Protein 6.4 (6.3-8.2) g/dL Albumin 3.7 (3.5-5.0) g/dL Influenza Type A (PCR) (Not Detectd) Influenza Type B (PCR) (Not Detectd) RSV (PCR) (Not Detectd) SARS-CoV-2 (PCR) (Not Detectd) 02/23/23 02/23/23 02/23/23 Range/Units 12:17 12:49 14:12 WBC (3.8-10.6) k/uL RBC (3.80-5.40) m/uL Hgb (11.4-16.0) gm/dL Hct (34.0-46.0) % MCV (80.0-100.0) fL MCH (25.0-35.0) pg MCHC (31.0-37.0) g/dL RDW (11.5-15.5) % Plt Count (150-450) k/uL MPV Neutrophils % % Lymphocytes % % Monocytes % % Eosinophils % % Basophils % % Neutrophils # (1.3-7.7) k/uL Lymphocytes # (1.0-4.8) k/uL Monocytes # (0-1.0) k/uL Eosinophils # (0-0.7) k/uL Basophils # (0-0.2) k/uL Hypochromasia PT (10.0-12.5) sec INR (<1.2) APTT (22.0-30.0) sec D-Dimer 1.17 H (<0.60) mg/L FEU Sodium (137-145) mmol/L Potassium (3.5-5.1) mmol/L Chloride (98-107) mmol/L Carbon Dioxide (22-30) mmol/L Anion Gap mmol/L BUN (7-17) mg/dL Creatinine (0.52-1.04) mg/dL Est GFR (CKD-EPI)AfAm (>60 ml/min/1.73 sqM) Est GFR (CKD-EPI)NonAf (>60 ml/min/1.73 sqM) Glucose (74-99) mg/dL POC Glucose (mg/dL) (70-110) mg/dL POC Glu Senior Mechanical Development Engineer ID Lactic Ac Sepsis Rflx Y Plasma Lactic Acid Stepan (0.7-2.0) mmol/L Calcium (8.4-10.2) mg/dL Magnesium (1.6-2.3) mg/dL Total Bilirubin (0.2-1.3) mg/dL AST (14-36) U/L ALT (4-34) U/L Alkaline Phosphatase (38-126) U/L Troponin I (0.000-0.034) ng/mL Total Protein (6.3-8.2) g/dL Albumin (3.5-5.0) g/dL Influenza Type A (PCR) Not Detected (Not Detectd) Influenza Type B (PCR) Not Detected (Not Detectd) RSV (PCR) Not Detected (Not Detectd) SARS-CoV-2 (PCR) Not Detected (Not Detectd) Disposition Is patient prescribed a controlled substance at d/c from ED?: No Time of Disposition: 16:27 Decision to Admit Reason: Admit from EC Decision Date: 02/23/23 Decision Time: 16:28 <Siri Cabrera - Last Filed: 02/23/23 16:27> <Jaguar Ramirez - Last Filed: 03/02/23 07:17> Clinical Impression: NSTEMI (non-ST elevated myocardial infarction), Hypotension, COPD exacerbation Disposition: ADMITTED IP TO THIS HOSP Condition: Stable
[2023-02-23 12:40] LABS: ALT 19 U/L (4-34); AST 22 U/L (14-36); African American GFR (CKD) >90 (>60 ml/min/1.73 sqM); Albumin 3.7 g/dL (3.5-5.0); Alkaline Phosphatase 85 U/L (38-126); Anion Gap 13 mmol/L; Blood Urea Nitrogen 10 mg/dL (7-17); Calcium 8.5 mg/dL (8.4-10.2); Carbon Dioxide 25 mmol/L (22-30); Chloride 98 mmol/L (98-107); Glucose 145 mg/dL (74-99); Magnesium 2.1 mg/dL (1.6-2.3); Non-African American GFR(CKD) >90 (>60 ml/min/1.73 sqM); Potassium 4.3 mmol/L (3.5-5.1); Sodium 136 mmol/L (137-145); Total Bilirubin 0.4 mg/dL (0.2-1.3); Total Protein 6.4 g/dL (6.3-8.2)
[2023-02-23 13:00] LABS: Basophils % (A) 0 %; Eosinophils # (A) 0.1 k/uL (0-0.7); Eosinophils % (A) 2 %; HGB 11.8 gm/dL (11.4-16.0); Hypochromasia Moderate; Lymphocytes # (A) 1.6 k/uL (1.0-4.8); Lymphocytes % (A) 22 %; MCH 30.8 pg (25.0-35.0); MCHC 31.8 g/dL (31.0-37.0); MCV 96.6 fL (80.0-100.0); Mean Platelet Volume 7.4; Monocytes # (A) 0.4 k/uL (0-1.0); Monocytes % (A) 6 %; Neutrophils # (A) 4.8 k/uL (1.3-7.7); Neutrophils % (A) 68 %; Platelet Count 216 k/uL (150-450); RBC 3.83 m/uL (3.80-5.40); RDW 15.4 % (11.5-15.5); WBC 7.2 k/uL (3.8-10.6)
[2023-02-23 13:03] LABS: INR 0.9 (<1.2); Partial Thromboplastin Time 23.2 sec (22.0-30.0); Prothrombin Time 10.1 sec (10.0-12.5)
--- NOTE | 2023-02-23 13:10 | CT ---
EXAMINATION TYPE: CT brain cspine wo con DATE OF EXAM: 02/23/2023 COMPARISON: Prior CT brain February 03, 2023 HISTORY: Altered mental status CT DLP: 1231.6 mGycm. Automated Exposure Control for Dose Reduction was Utilized. TECHNIQUE: CT scan of the head and cervical spine are performed without contrast. FINDINGS: There is no acute intracranial hemorrhage or midline shift identified. Mild ventricular a nd sulcal prominence redemonstrated. Moser-white matter differentiation fairly well preserved. The suzie varium is intact. Right-sided aphakia redemonstrated. The visualized sinuses are clear. Cervical spine is visualized in its entirety from C1 through upper thoracic levels and demonstrates s atisfactory alignment without evidence of acute fracture or dislocation. Exam slightly suboptimal as there is some patient motion. Prevertebral soft tissue appears within normal limits. The C1-C2 reji culation is within normal limits on the coronal images. Vertebral body heights and disc space height s are fairly well preserved. Spinal canal maintained. Visualized lungs show some emphysematous change without pneumothorax. Somewhat small thyroid gland is noted. Moderate calcified plaque bilateral car otid bulb level is seen. IMPRESSION: 1. Suboptimal study due to motion. No acute displaced cervical fracture clearly identified. 2. No acute intracranial hemorrhage or midline shift is seen. No significant change from prior.
[2023-02-23] MEDS ORDERED: ASPIRIN 81 MG PO STA (14:35)
--- NOTE | 2023-02-23 14:36 | XR ---
EXAMINATION TYPE: XR chest 2V DATE OF EXAM: 02/23/2023 COMPARISON: 02/04/2023 INDICATION: Dyspnea acute mental status changes TECHNIQUE: Frontal and lateral views of the chest are obtained. FINDINGS: The heart size is normal. The pulmonary vasculature is normal. The lungs are clear. IMPRESSION: 1. No acute pulmonary process.
[2023-02-23] MEDS ORDERED: HEPARIN SODIUM 1,000 UN/ML (10ML VL) IV PRN (14:51)
[2023-02-23] MEDS ORDERED: HEPARIN SODIUM 1,000 UN/ML (10ML VL) IV ONE (14:51)
[2023-02-23] MEDS ORDERED: HEPARIN SOD,PORK IN 0.45% NACL 25,000 UNIT in 0.45% NACL 1 250ML.BAG IV SCH (15:00)
--- NOTE | 2023-02-23 15:48 | CT ---
EXAMINATION TYPE: CT angio chest DATE OF EXAM: 02/23/2023 COMPARISON: Prior CTA chest April 11, 2022 HISTORY: elevated d-dimer CT DLP: 343.9 mGycm. Automated Exposure Control for Dose Reduction was Utilized. CONTRAST: CTA scan of the thorax is performed with IV Contrast, patient injected with 100 mL of Isovue 370, pul monary embolism protocol. MIP Images are created on CT scanner and reviewed. FINDINGS: Exam is suboptimal as patient unable to hold breath. This limits evaluation particularly fo r subcentimeter pulmonary nodules LUNGS: Mild to moderate underlying emphysematous changes are redemonstrated. No pleural effusion or p neumothorax seen bilaterally. No pulmonary masses. MEDIASTINUM: There is satisfactory enhancement of the pulmonary artery and its branches, there is no CT evidence for pulmonary embolism. There are no greater than 1 cm hilar or mediastinal lymph nodes. No cardiomegaly or pericardial effusion is seen. Severe three-vessel coronary artery calcification and/or stents. Some enhancement of the thoracic aorta without aneurysm or dissection. Patent vascula r stent in the left subclavian artery noted coronal image 99 OTHER: Subcentimeter round lesion left hepatic lobe axial image 107 is presumed benign. IMPRESSION: No CT evidence for acute pulmonary embolism. Mild/moderate emphysematous change without s uspicious acute pulmonary process.
[2023-02-23] MEDS ORDERED: NALOXONE 0.4 MG/ML 1 ML VIAL IV PRN (16:28)
[2023-02-23] MEDS ORDERED: NITROGLYCERIN SL TABS 0.4 MG TAB SUBLINGUAL PRN (18:07)
--- NOTE | 2023-02-23 18:53 | P.HPIM ---
History of Present Illness H&P Date: 02/23/23 Chief Complaint: Weakness and confusion This is a readmission a 62-year-old white female with known history of severe COPD who was just discharged on ICU after having restaurant failure. She is somewhat a poor historian now but states that when she went to the ER she had ex tremity weakness and confusion. No loss of consciousness stated. No chest pain. When I asked her summer questions she is somewhat difficult to arouse. However she answers questions somewhat slowly but appropriately to yes and no. She has no idea what had happened prior. She states compliance with medication. No overt shortness of breath stated. Labs do not show any type of hypercarbia. However x-rays and CT scans do show emphysematous changes. No pneumonia. Review of Systems Constitutional: Denies chills, Denies fever Eyes: denies blurred vision, denies pain Ears, nose, mouth and throat: Denies headache, Denies sore throat Cardiovascular: Denies chest pain, Denies shortness of breath Genitourinary: Denies dysuria, Denies hematuria Past Medical History Past Medical History: Asthma, Coronary Artery Disease (CAD), Chest Pain / Angina, COPD, GERD/Reflux, Hyperlipidemia, Hypertension, Myocardial Infarction ([place]), Respiratory Disorder, Seizure Disorder, Thyroid Disorder, Vascular Disorder Additional Past Medical History / Comment(s): PRN oxygen use, 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 carotid blockage, PAD, vertigo at times. Last Myocardial Infarction Date:: 06/2022 History of Any Multi-Drug Resistant Organisms: None Reported Past Surgical History: Heart Catheterization, Heart Catheterization With Stent, Hysterectomy, Joint Replacement, Orthopedic Surgery Additional Past Surgical History / Comment(s): RT ROTATOR CUFF REPAIR, R total knee, CYSTS REMOVED FROM UNDER ARMS AND HANDS, arch studies, L caratid endartectomy, 4 cardiac stents, several peripheral stents, 07/18/18 left subclavian stent, arch studies. Past Anesthesia/Blood Transfusion Reactions: No Reported Reaction Additional Past Anesthesia/Blood Transfusion Reaction / Comment(s): Pt states that she is unable to go under general anesthesia per her sign installer due to low functioning lungs. Pt has never received blood. Date of Last Stent Placement:: Nov 2017 Past Psychological History: Anxiety, Depression Smoking Status: Current every day smoker Past Alcohol Use History: None Reported Past Drug Use History: Marijuana - Past Family History Mother Family Medical History: Cancer Sister(s) Family Medical History: Cancer Medications and Allergies Home Medications Medication Instructions Recorded Confirmed Type Escitalopram [Lexapro] 40 mg PO DAILY 11/28/17 02/23/23 History Levothyroxine Sodium 200 mcg PO DAILY 08/20/20 02/23/23 History Nitroglycerin Sl Tabs [Nitrostat] 0.4 mg SL Q5M PRN 08/20/20 02/23/23 History Gabapentin 600 mg PO TID 06/18/21 02/23/23 History Doxepin [SINEquan] 10 mg PO HS 02/25/22 02/23/23 History Atorvastatin [Lipitor] 40 mg PO HS #30 tab 06/21/22 02/23/23 Rx Clopidogrel [Plavix] 75 mg PO DAILY #90 tablet 10/28/22 02/23/23 Rx Albuterol Sulfate [Albuterol 1 - 2 puff PO RT-Q6H PRN 02/03/23 02/23/23 History Sulfate Hfa] buprenorphine HCL [Subutex] 4 mg SL DAILY 02/03/23 02/23/23 History cloNIDine HCL [Catapres] 0.2 mg PO BID 02/03/23 02/23/23 History levETIRAcetam [Keppra] 1,500 mg PO BID 02/03/23 02/23/23 History predniSONE 10 mg PO DAILY 9 Days #21 tab 02/07/23 02/23/23 Rx Midodrine HCl [ProAmatine] 10 mg PO BID 02/23/23 02/23/23 History buprenorphine HCL [Subutex] 2 mg SL HS 02/23/23 02/23/23 History Allergies Allergy/AdvReac Type Severity Reaction Status Date / Time No Known Allergies Allergy Verified 02/23/23 13:28 Physical Exam Vitals: Vital Signs Temp Pulse Resp BP Pulse Ox 02/23/23 18:00 88 20 118/84 99 02/23/23 17:00 86 21 104/66 97 02/23/23 16:00 90 20 100/68 97 02/23/23 15:00 95 20 103/52 96 02/23/23 13:00 99 22 93/71 94 L 02/23/23 12:30 101 H 22 75/65 94 L 02/23/23 12:00 99 22 88/62 94 L 02/23/23 11:55 20 02/23/23 11:53 98.0 F 104 H 20 88/62 93 L 02/23/23 11:49 98.2 F 56 L 20 56/33 90 L Intake and Output 02/23/23 02/23/23 02/23/23 06:59 14:59 22:59 Other: Weight 67.132 kg - Constitutional General appearance: cooperative, obese - EENT Eyes: EOMI - Neck Neck: no lymphadenopathy - Respiratory Respiratory: bilateral: diminished - Cardiovascular Rhythm: regular Heart sounds: normal: S1, S2 Abnormal Heart Sounds: no S3 Gallop - Gastrointestinal General gastrointestinal: soft, no tenderness - Integumentary Integumentary: no cellulitis - Psychiatric Psychiatric: no A&O x's 3 Results CBC & Chem 7: 02/23/23 12:17 02/23/23 12:17 Labs: Abnormal Lab Results - Last 24 Hours (Table) 02/23/23 02/23/23 02/23/23 Range/Units 11:52 12:17 12:17 D-Dimer (<0.60) mg/L FEU Sodium 136 L (137-145) mmol/L Glucose 145 H (74-99) mg/dL POC Glucose (mg/dL) 222 H (70-110) mg/dL Plasma Lactic Acid Stepan 3.0 H* (0.7-2.0) mmol/L Troponin I (0.000-0.034) ng/mL 02/23/23 02/23/23 Range/Units 12:17 12:17 D-Dimer 1.17 H (<0.60) mg/L FEU Sodium (137-145) mmol/L Glucose (74-99) mg/dL POC Glucose (mg/dL) (70-110) mg/dL Plasma Lactic Acid Stepan (0.7-2.0) mmol/L Troponin I 0.180 H* (0.000-0.034) ng/mL Assessment and Plan (1) Hypotension Current Visit: Yes Status: Acute Code(s): I95.9 - HYPOTENSION, UNSPECIFIED SNOMED Code(s): 72256238 (2) NSTEMI (non-ST elevated myocardial infarction) Current Visit: Yes Status: Acute Code(s): I21.4 - NON-ST ELEVATION (NSTEMI) MYOCARDIAL INFARCTION SNOMED Code(s): 47653085 (3) Altered mental status Current Visit: No Status: Acute Code(s): R41.82 - ALTERED MENTAL STATUS, UNSPECIFIED SNOMED Code(s): 101270372 (4) CAD (coronary artery disease) Current Visit: No Status: Acute Code(s): I25.10 - ATHSCL HEART DISEASE OF [place] CORONARY ARTERY W/O ANG PCTRS SNOMED Code(s): 66274878 (5) History of carotid endarterectomy Current Visit: No Status: Acute Code(s): Z98.890 - OTHER SPECIFIED POSTPROCEDURAL STATES SNOMED Code(s): 570387176 (6) Opiate dependence Current Visit: No Status: Acute Code(s): F11.20 - OPIOID DEPENDENCE, UNCOMPLICATED SNOMED Code(s): 81782931 (7) Tobacco abuse Current Visit: No Status: Acute Code(s): Z72.0 - TOBACCO USE SNOMED Code(s): 355625825 Plan: Hold antihypertensives. Hydration. Reconcile home medications otherwise. Ask neurology to see the patient due to the confusion and weakness. Chest x-ray computed tomography scan are negative for any type of infiltrate or PE. Check CBC and CMP in the pain a.m. Prognosis is guarded secondary to her multiple comorbidities. See orders otherwise. Check CBC and CMP in a.m.
[2023-02-23] MEDS ORDERED: ALBUTEROL NEBULIZED 2.5 MG/3 ML INHALATION PRN (21:26)
[2023-02-23] MEDS ORDERED: SODIUM CHLORIDE 0.9% 500 ML 500 ML IV ONE (21:38)
[2023-02-23 21:44] LABS: Glucose,Whole Blood 154 mg/dL (70-110)
[2023-02-23] MEDS: methylPREDNISolone SOD SUCCI 125 MG/2 ML VIAL IV SCH (22:15)
--- NOTE | 2023-02-23 22:47 | XR ---
EXAM: XR chest 1V portable CLINICAL INDICATION:Female, 62 years old with history of Resp distress; [facility] COMPARISON: Earlier same day x-ray 1:34 PM , CT 3:33 PM. TECHNIQUE: Chest single view. FINDINGS: Lines/tubes/devices: EKG leads overlie the chest. No indwelling lines are seen. Cardiomediastinum: Cardiac silhouette appears normal in size. Atherosclerotic calcifications of the aorta. Stent noted extending craniocaudally along the aortic ar ch, could be related to the left common carotid artery. Mediastinal silhouette otherwise unremarkable . Stent noted on the left, likely related to the subclavian/axillary artery. Vasculature: No increased pulmonary vasculature. Lungs/pleura: No consolidation, sizeable effusion, or visible pneumothorax. Lungs appear hyperinflated with interst itial coarsening, findings suggestive of COPD/emphysema. Bones/soft tissues: Bony thorax appears grossly intact as seen with mild chronic degenerative changes. Regional soft tiss ues appear unremarkable. IMPRESSION: No acute findings, or significant interval change.
[2023-02-23 23:09] LABS: T4, Free (Free Thyroxine) 2.63 ng/dL (0.78-2.19)
[2023-02-23 23:38] LABS: ABG Base Excess 5.6 mmol/L; ABG HCO3 32 mmol/L (21-25); ABG Oxygen Saturation 94.6 % (94-97); ABG PCO2 68 mmHg (35-45); ABG PH 7.29 (7.35-7.45); ABG PO2 74 mmHg (83-108); ABG TCO2 34 mmol/L (19-24); Allen Test Performed? Yes
--- NOTE | 2023-02-24 03:06 | P.CNPUL ---
History of Present Illness Consult date: 02/24/23 Requesting physician: Jose F Mcwilliams Reason for consult: COPD Chief complaint: Altered mental status and shortness of breath History of present illness: I am seeing this patient in consultation today 02/24/2023 after a rapid response was called late last night for altered mental status and hypotension. Patient is a 62-year-old white female past medical history significant for severe oxygen dependent COPD, chronic ongoing tobacco dependence, hyperlipidemia, coronary artery disease with previous coronary stents, carotid artery stenosis status post left carotid stenting, hypothyroidism, seizure disorder. Patient just recently had a hospital admission for similar symptoms earlier in January. She did require a brief ICU stay, and was on the BiPAP for hypercapnic respiratory failure. Patient's daughter is at bedside, who states that she was doing well up until the Tuesday after Thanks. Unfortunately she continues to smoke. She was having some issues with shortness of breath, she lost her voice. This progressively worsened. Patient returned to the emergency room yesterday afternoon complaining of severe shortness of breath for the last 2 days. She was also weak and lethargic. Chest CTA on arrival did not show any acute pulmonary embolism. It did show mild to moderate emphysematous changes without any suspicious acute cardiopulmonary process. Patient is currently obtunded, only responds to painful stimulus. She is currently on 3 L/m nasal cannula. During the A team, she was hypotensive and given 500 ML's normal saline bolus. Blood pressure is currently 90s over 60s. Her blood pressure runs low at baseline, and she takes midodrine 10 mg 2 times a day at home. I did ask for ABGs to be drawn, which show a component of hypercapnic respiratory failure with a pH of 7 .29, pCO2 of 68, pO2 of 74, this was done on FiO2 of 32% or 3 L/m nasal cannula. Patient was placed on the BiPAP with settings 12/5 and an FiO2 of 40%. She is achieving adequate tidal volumes. CBC on arrival is unremarkable. No leukocytosis. She is covered on empiric antibiotics in the form of azithromycin and Rocephin. Also started on medications for COPD exacerbation including DuoNeb's, budesonide, formoterol, and IV Solu-Medrol. Negative for influenza, RSV, COVID-19. Is afebrile. BMP also unremarkable. Lactic acid level not elevated. Troponins were 0.18, 0.19, and 0.18 respectively. Not likely consistent with acute DE. She is on heparin infusion per protocol. Cardiology is managing this. She will continued to be monitored on the cardiac stepdown unit. We will consider transfer to the intensive care unit if no improvement in respiratory status or CO2 narcosis. Review of Systems ROS unobtainable: due to mental status Past Medical History Past Medical History: Asthma, Coronary Artery Disease (CAD), Chest Pain / Angina, COPD, GERD/Reflux, Hyperlipidemia, Hypertension, Myocardial Infarction ([place]), Respiratory Disorder, Seizure Disorder, Thyroid Disorder, Vascular Disorder Additional Past Medical History / Comment(s): PRN oxygen use, 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 carotid blockage, PAD, vertigo at times. Last Myocardial Infarction Date:: 06/2022 History of Any Multi-Drug Resistant Organisms: None Reported Past Surgical History: Heart Catheterization, Heart Catheterization With Stent, Hysterectomy, Joint Replacement, Orthopedic Surgery Additional Past Surgical History / Comment(s): RT ROTATOR CUFF REPAIR, R total knee, CYSTS REMOVED FROM UNDER ARMS AND HANDS, arch studies, L caratid endartectomy, 4 cardiac stents, several peripheral stents, 07/18/18 left subclavian stent, arch studies. 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 Pt has never received blood. Date of Last Stent Placement:: Nov 2017 Past Psychological History: Anxiety, Depression Smoking Status: Current every day smoker Past Alcohol Use History: None Reported Past Drug Use History: Marijuana - Past Family History Mother Family Medical History: Cancer Sister(s) Family Medical History: Cancer Medications and Allergies Home Medications Medication Instructions Recorded Confirmed Type Escitalopram [Lexapro] 40 mg PO DAILY 11/28/17 02/23/23 History Levothyroxine Sodium 200 mcg PO DAILY 08/20/20 02/23/23 History Nitroglycerin Sl Tabs [Nitrostat] 0.4 mg SL Q5M PRN 08/20/20 02/23/23 History Gabapentin 600 mg PO TID 06/18/21 02/23/23 History Doxepin [SINEquan] 10 mg PO HS 02/25/22 02/23/23 History Atorvastatin [Lipitor] 40 mg PO HS #30 tab 06/21/22 02/23/23 Rx Clopidogrel [Plavix] 75 mg PO DAILY #90 tablet 10/28/22 02/23/23 Rx Albuterol Sulfate [Albuterol 1 - 2 puff PO RT-Q6H PRN 02/03/23 02/23/23 History Sulfate Hfa] buprenorphine HCL [Subutex] 4 mg SL DAILY 02/03/23 02/23/23 History cloNIDine HCL [Catapres] 0.2 mg PO BID 02/03/23 02/23/23 History levETIRAcetam [Keppra] 1,500 mg PO BID 02/03/23 02/23/23 History predniSONE 10 mg PO DAILY 9 Days #21 tab 02/07/23 02/23/23 Rx Midodrine HCl [ProAmatine] 10 mg PO BID 02/23/23 02/23/23 History buprenorphine HCL [Subutex] 2 mg SL HS 02/23/23 02/23/23 History Allergies Allergy/AdvReac Type Severity Reaction Status Date / Time No Known Allergies Allergy Verified 02/23/23 13:28 Physical Exam Vitals: Vital Signs Temp Pulse Resp BP Pulse Ox FiO2 02/23/23 23:52 40 02/23/23 21:45 84 02/23/23 21:40 96 02/23/23 21:38 82 02/23/23 20:55 98.0 F 98 22 100/69 93 L 02/23/23 19:00 94 20 101/73 94 L 02/23/23 18:00 88 20 118/84 99 02/23/23 17:00 86 21 104/66 97 02/23/23 16:00 90 20 100/68 97 02/23/23 15:00 95 20 103/52 96 02/23/23 13:00 99 22 93/71 94 L 02/23/23 12:30 101 H 22 75/65 94 L 02/23/23 12:00 99 22 88/62 94 L 02/23/23 11:55 20 02/23/23 11:53 98.0 F 104 H 20 88/62 93 L 02/23/23 11:49 98.2 F 56 L 20 56/33 90 L Intake and Output 02/23/23 02/23/23 02/24/23 14:59 22:59 06:59 Intake Total 85.931 Balance 85.931 Intake: Intake, IV Titration 85.931 Amount Heparin Sod,Pork in 0.45% 85.931 NaCl 25,000 unit In 0.45 % NaCl 1 250ml.bag @ 12 UNITS/KG/HR 8.056 mls/hr IV .Q24H [facility] Rx#: [id number] Other: Weight 67.132 kg GENERAL EXAM: Obtunded 62-year-old white female, withdrawal to painful stimuli. Recently placed on BiPAP. HEAD: Normocephalic and atraumatic EYES: Normal reaction of pupils, equal size. NOSE: Clear with pink turbinates. THROAT: No erythema or exudates. NECK: No masses, no JVD. CHEST: No chest wall deformity. LUNGS: Equal air entry with expiratory wheezes heard throughout. On BiPAP with settings 45 and FiO2 of 40%. No accessory muscle use. CVS: S1 and S2 normal with soft systolic murmur, regular rhythm. No other extra heart sounds ABDOMEN: No hepatosplenomegaly, active bowel sounds, no guarding or rigidity. SPINE: No scoliosis or deformity SKIN: No rashes CENTRAL NERVOUS SYSTEM: No focal deficits, withdrawals to pain in all 4 extremities EXTREMITIES: There is no peripheral edema, clubbing, or cyanosis. Peripheral pulses are intact. Results - Laboratory Findings CBC and BMP: 02/24/23 08:40 02/24/23 08:40 ABG ABG pH 7.29 (7.35-7.45) L 02/23/23 23:36 ABG pCO2 68 mmHg (35-45) H 02/23/23 23:36 ABG pO2 74 mmHg (83-108) L 02/23/23 23:36 ABG O2 Saturation 94.6 % (94-97) 02/23/23 23:36 PT/INR, D-dimer PT 10.1 sec (10.0-12.5) 02/23/23 12:17 INR 0.9 (<1.2) 02/23/23 12:17 D-Dimer 1.17 mg/L FEU (<0.60) H 02/23/23 12:17 Abnormal lab findings: Abnormal Labs 02/23/23 02/23/23 02/23/23 11:52 12:17 12:17 D-Dimer ABG pH ABG pCO2 ABG pO2 ABG HCO3 ABG Total CO2 Sodium 136 L Glucose 145 H POC Glucose (mg/dL) 222 H Plasma Lactic Acid Stepan 3.0 H* Troponin I TSH Free T4 02/23/23 02/23/23 02/23/23 12:17 12:17 18:54 D-Dimer 1.17 H ABG pH ABG pCO2 ABG pO2 ABG HCO3 ABG Total CO2 Sodium Glucose POC Glucose (mg/dL) Plasma Lactic Acid Stepan Troponin I 0.180 H* 0.191 H* TSH Free T4 02/23/23 02/23/23 02/23/23 18:54 21:22 21:32 D-Dimer ABG pH ABG pCO2 ABG pO2 ABG HCO3 ABG Total CO2 Sodium Glucose POC Glucose (mg/dL) 154 H Plasma Lactic Acid Stepan Troponin I 0.183 H* TSH <0.015 L Free T4 2.63 H 02/23/23 23:36 D-Dimer ABG pH 7.29 L ABG pCO2 68 H ABG pO2 74 L ABG HCO3 32 H ABG Total CO2 34 H Sodium Glucose POC Glucose (mg/dL) Plasma Lactic Acid Stepan Troponin I TSH Free T4 - Diagnostic Findings Chest x-ray: image reviewed CT scan - chest: image reviewed Assessment and Plan Assessment: Acute COPD exacerbation, chest x-ray shows no acute cardiopulmonary process or evidence of pneumonia. Negative for influenza, RSV, COVID-19. Acute on chronic hypoxic and hypercapnic respiratory failure, secondary to above Altered mental status, related to hypercapnic encephalopathy Chronic ongoing tobacco dependence Hypotension, improved with IV fluid resuscitation. Normally takes midodrine twice a day Elevated troponins, flat, not consistent with ACS Hyperlipidemia Coronary artery disease, with multiple previous coronary stents Carotid artery stenosis, status post left carotid stenting Hypothyroidism History of seizure disorder Chronic left knee pain, receives Subutex outpatient Plan: Patient's medications, labs, imaging reviewed. Patient was essentially admitted for acute COPD exacerbation. ABG showed component of hypercapnic respiratory failure, the patient was placed on BiPAP with settings were 5 and FiO2 of 40%. Continue BiPAP on the settings. Patient was placed on empiric antibiotics, and procalcitonin level pending. Also, on medications for COPD exacerbation including DuoNeb's, budesonide inhalation, formoterol inhalation, and IV Solu- Medrol. Unfortunately, the patient continues to smoke, and has been counseled multiple times on smoking cessation. Hypotension has improved with fluid resuscitation. Midodrine has been restarted Cardiology was consulted for elevated troponins. Currently on high intensity heparin infusion per protocol. Patient's daughter did mention that the patient had difficulty swallowing while at home. No evidence of aspiration pneumonia on imaging. Will add speech therapy consult for swallow evaluation. Obviously, cannot be done at this time due to the patient's CO2 narcosis. Will be pursued once the patient is more alert. We will continue to follow, and further recommendations are forthcoming. I have personally seen and examined the patient, performed the documentation and the assessment and plan as written. Number of minutes spent on the visit:20 This is a joint evaluation is being done along with a nurse practitioner. This evaluation was done in more than 30 minutes. The patient is 62-year-old female is known to me. She was seen in the office by my partner. She was not hospitalized back in January 2023 for recurrent acute exacerbation, treated and she was discharged home. She comes in for the same. She is on oxygen at home at 2 L nasal cannula. She was also given Trelegy Ellipta one inhalation a day and she was relying mainly on albuterol nebulized treatments. She comes in for another COPD exacerbation pH is trying to quit smoking. I reviewed the chest x- ray and I also reviewed the CT angiogram of the chest and there is no evidence of any pulmonary embolism. There is emphysema without any acute pneumonia. She was initially placed on a BiPAP at a pressure of 12/5 cm of water and currently she is off the BiPAP. She is communicating. Denies having any chest pain. There is some mild troponin leak related to type II cardiac ischemia. Her previous echocardiogram has been within normal limits. We'll continue to follow. Time with Patient: Greater than 30
[2023-02-24] MEDS: methylPREDNISolone SOD SUCCI 125 MG/2 ML VIAL IV SCH ×4 (04:25→19:44)
[2023-02-24] MEDS: GABAPENTIN 300 MG CAP PO SCH ×4 (06:59→19:44)
[2023-02-24] MEDS: BUPRENORPHINE SUBLINGUAL SCH ×2 (06:59→20:21)
[2023-02-24] MEDS: ATORVASTATIN 40 MG TAB PO SCH ×2 (06:59→19:44)
[2023-02-24] MEDS: DOXEPIN 10 MG CAP PO SCH ×2 (06:59→20:22)
[2023-02-24] MEDS: levETIRAcetam 500 MG TAB PO SCH ×3 (06:59→19:44)
[2023-02-24] MEDS: MIDODRINE 5 MG TAB PO SCH ×2 (07:03→16:33)
[2023-02-24] MEDS: LEVOTHYROXINE 100 MCG TAB PO SCH (07:03)
[2023-02-24] MEDS: IPRATROPIUM-ALBUTEROL 3 ML NEB INHALATION SCH ×4 (07:58→21:27)
[2023-02-24] MEDS: FORMOTEROL FUMARATE 20 MCG/2 ML NEBU INHALATION SCH ×2 (07:58→21:27)
[2023-02-24] MEDS: BUDESONIDE 1 MG/2 ML NEBU INHALATION SCH ×2 (07:58→21:27)
--- NOTE | 2023-02-24 08:43 | P.PN ---
Subjective Progress Note Date: 02/24/23 Principal diagnosis: COPD This is a 62-year-old female who has a known history of severe COPD who presented to the ER with weakness and confusion. Also reports severe shortness of breath for the last 2 days. Chest CTA showed mild to moderate emphysematous changes without any suspicious acute cardiopulmonary process. Yesterday patient was hard to arouse, and an a team was called. She was hypotensive. She remained on BiPAP overnight. This morning patient is alert and oriented and back to baseline. Pulmonology and cardiology on consult. Objective - Vital Signs Vital signs: Vital Signs Temp 97.9 F 02/23/23 20:57 Pulse 82 02/24/23 08:20 Resp 17 02/24/23 04:00 BP 129/72 02/24/23 04:00 Pulse Ox 95 02/24/23 08:01 FiO2 40 02/24/23 04:03 Intake & Output 02/23/23 02/24/23 02/24/23 18:59 06:59 18:59 Intake Total 85.931 Balance 85.931 Weight 67.132 kg Intake: Intake, IV Titration 85.931 Amount Heparin Sod,Pork in 0.45% 85.931 NaCl 25,000 unit In 0.45 % NaCl 1 250ml.bag @ 12 UNITS/KG/HR 8.056 mls/hr IV .Q24H [facility] Rx#: [id number] Other: Voiding Method Diaper External Catheter # Voids 2 1 - Constitutional General appearance: Present: cooperative, no acute distress - EENT Eyes: Present: PERRLA - Neck Neck: Present: normal ROM. Absent: lymphadenopathy, rigidity - Respiratory Respiratory: bilateral: CTA (occasional wheeze) - Cardiovascular Rhythm: regular Heart sounds: normal: S1, S2 - Gastrointestinal General gastrointestinal: Present: soft. Absent: tenderness - Integumentary Integumentary: Present: normal, normal turgor - Musculoskeletal Musculoskeletal: Present: generalized weakness - Psychiatric Psychiatric: Present: A&O x's 3, appropriate affect, intact judgment & insight - Labs CBC & Chem 7: 02/23/23 12:17 02/23/23 12:17 Labs: Abnormal Lab Results - Last 24 Hours (Table) 02/23/23 02/23/23 02/23/23 Range/Units 11:52 12:17 12:17 D-Dimer (<0.60) mg/L FEU ABG pH (7.35-7.45) ABG pCO2 (35-45) mmHg ABG pO2 (83-108) mmHg ABG HCO3 (21-25) mmol/L ABG Total CO2 (19-24) mmol/L Sodium 136 L (137-145) mmol/L Glucose 145 H (74-99) mg/dL POC Glucose (mg/dL) 222 H (70-110) mg/dL Plasma Lactic Acid Stepan 3.0 H* (0.7-2.0) mmol/L Troponin I (0.000-0.034) ng/mL TSH (0.465-4.680) mIU/L Free T4 (0.78-2.19) ng/dL 02/23/23 02/23/23 02/23/23 Range/Units 12: 12: 18:54 D-Dimer 1.17 H (<0.60) mg/L FEU ABG pH (7.35-7.45) ABG pCO2 (35-45) mmHg ABG pO2 (83-108) mmHg ABG HCO3 (21-25) mmol/L ABG Total CO2 (19-24) mmol/L Sodium (137-145) mmol/L Glucose (74-99) mg/dL POC Glucose (mg/dL) (70-110) mg/dL Plasma Lactic Acid Stepan (0.7-2.0) mmol/L Troponin I 0.180 H* 0.191 H* (0.000-0.034) ng/mL TSH (0.465-4.680) mIU/L Free T4 (0.78-2.19) ng/dL 02/23/23 02/23/23 02/23/23 Range/Units 18:54 21:22 21:32 D-Dimer (<0.60) mg/L FEU ABG pH (7.35-7.45) ABG pCO2 (35-45) mmHg ABG pO2 (83-108) mmHg ABG HCO3 (21-25) mmol/L ABG Total CO2 (19-24) mmol/L Sodium (137-145) mmol/L Glucose (74-99) mg/dL POC Glucose (mg/dL) 154 H (70-110) mg/dL Plasma Lactic Acid Stepan (0.7-2.0) mmol/L Troponin I 0.183 H* (0.000-0.034) ng/mL TSH <0.015 L (0.465-4.680) mIU/L Free T4 2.63 H (0.78-2.19) ng/dL 02/23/23 Range/Units 23:36 D-Dimer (<0.60) mg/L FEU ABG pH 7.29 L (7.35-7.45) ABG pCO2 68 H (35-45) mmHg ABG pO2 74 L (83-108) mmHg ABG HCO3 32 H (21-25) mmol/L ABG Total CO2 34 H (19-24) mmol/L Sodium (137-145) mmol/L Glucose (74-99) mg/dL POC Glucose (mg/dL) (70-110) mg/dL Plasma Lactic Acid Stepan (0.7-2.0) mmol/L Troponin I (0.000-0.034) ng/mL TSH (0.465-4.680) mIU/L Free T4 (0.78-2.19) ng/dL Assessment and Plan (1) Hypotension Current Visit: Yes Status: Acute Code(s): I95.9 - HYPOTENSION, UNSPECIFIED SNOMED Code(s): 81687389 (2) NSTEMI (non-ST elevated myocardial infarction) Current Visit: Yes Status: Acute Code(s): I21.4 - NON-ST ELEVATION (NSTEMI) MYOCARDIAL INFARCTION SNOMED Code(s): 43543029 (3) Altered mental status Current Visit: No Status: Acute Code(s): R41.82 - ALTERED MENTAL STATUS, UNSPECIFIED SNOMED Code(s): 585843670 (4) CAD (coronary artery disease) Current Visit: No Status: Acute Code(s): I25.10 - ATHSCL HEART DISEASE OF [place] CORONARY ARTERY W/O ANG PCTRS SNOMED Code(s): 77228073 (5) History of carotid endarterectomy Current Visit: No Status: Acute Code(s): Z98.890 - OTHER SPECIFIED POSTPROCEDURAL STATES SNOMED Code(s): 695201641 (6) Opiate dependence Current Visit: No Status: Acute Code(s): F11.20 - OPIOID DEPENDENCE, UNCOMPLICATED SNOMED Code(s): 24602808 (7) Tobacco abuse Current Visit: No Status: Acute Code(s): Z72.0 - TOBACCO USE SNOMED Code(s): 457038701 Plan: Appreciate cardiology and pulmonology input. CBC and CMP in the morning. Patient may require BiPAP at home. Patient seen and evaluated by nurse practitioner, physician in agreement with plan
[2023-02-24] MEDS ORDERED: BUPRENORPHINE SUBLINGUAL SCH (09:00)
[2023-02-24 09:16] LABS: Basophils % (A) 0 %; Eosinophils % (A) 0 %; HGB 11.9 gm/dL (11.4-16.0); Hypochromasia Moderate; Lymphocytes # (A) 0.5 k/uL (1.0-4.8); Lymphocytes % (A) 8 %; MCH 30.5 pg (25.0-35.0); MCHC 31.4 g/dL (31.0-37.0); MCV 97.1 fL (80.0-100.0); Mean Platelet Volume 7.8; Monocytes # (A) 0.3 k/uL (0-1.0); Monocytes % (A) 5 %; Neutrophils # (A) 5.3 k/uL (1.3-7.7); Neutrophils % (A) 87 %; Platelet Count 189 k/uL (150-450); RBC 3.91 m/uL (3.80-5.40); RDW 15.5 % (11.5-15.5); WBC 6.1 k/uL (3.8-10.6)
[2023-02-24 09:41] LABS: ALT 15 U/L (4-34); AST 22 U/L (14-36); African American GFR (CKD) >90 (>60 ml/min/1.73 sqM); Albumin 3.4 g/dL (3.5-5.0); Alkaline Phosphatase 90 U/L (38-126); Anion Gap 6 mmol/L; Blood Urea Nitrogen 12 mg/dL (7-17); Calcium 8.5 mg/dL (8.4-10.2); Carbon Dioxide 32 mmol/L (22-30); Chloride 100 mmol/L (98-107); Glucose 127 mg/dL (74-99); Non-African American GFR(CKD) >90 (>60 ml/min/1.73 sqM); Sodium 138 mmol/L (137-145); Total Bilirubin 0.3 mg/dL (0.2-1.3)
[2023-02-24] MEDS: AZITHROMYCIN 500 MG in SODIUM CHLORIDE 0.9% 250 ML IVPB SCH (10:17)
[2023-02-24] MEDS: ESCITALOPRAM 20 MG TAB PO SCH (10:19)
[2023-02-24] MEDS: CLOPIDOGREL 75 MG TAB PO SCH (10:19)
--- NOTE | 2023-02-24 10:58 | P.CRDCN ---
History of Present Illness Consult date: 02/24/23 Reason for Consult (text): Elevated troponins History of present illness: HISTORY OF PRESENT ILLNESS: This is a 62-year-old female patient of Dr. Vale with a past medical history significant for coronary artery disease with previous stenting of the LAD, hypertension, dyslipidemia, peripheral arterial disease, carotid atherosclerosis status post left carotid endarterectomy followed by stenting of the left common carotid artery, PAD with prior left subclavian stenting, COPD, and nicotine dependence. We have been asked to see the patient in consultation for elevated troponins. Patient presented to the hospital with a chief complaint of shortness of breath ongoing for a couple of days along with cough and wheezing. Patient was admitted to the hospital and under treatment for COPD exacerbation. She gives history of quitting smoking 2-3 weeks ago. Patient denies having any chest pain. No dizziness, no palpitations, no lower extremity edema. No nausea or vomiting. She's noticed no blood in her urine or stools. She sleeps on 2 pillows at home. She states she is not very active because she also has a broken leg. It has been started on a heparin drip. Patient states that she quit smoking 2-3 weeks ago. EKG reveals sinus mechanism with no signs of acute ischemia Chest xray no acute process. CTA of the chest showed no evidence of acute pulmonary embolism. Mild/moderate emphysematous change without suspicion for acute pulmonary process. CBC within normal limits. INR 0.9. D-dimer 1.17. Potassium 5.0, BUN 12 and creatinine 0.59. Troponins 0.18, 0.19, 0.183. Liver function tests are normal. Pro-calcitonin 0.04. TSH less than 0.015, free T4 abnormal [place] at 2.63. Influenza A, influenza B, RSV, Covid 19 not detected. Current home cardiac medications include atorvastatin 40 mg at bedtime, Plavix 75 mg daily, midodrine 10 mg twice daily, and clonidine 0.2 mg twice a day Most recent echocardiogram, limited, obtained in June 2022 revealed normal ejection fraction Lexiscan stress test performed 08/20/2022 was probably abnormal myocardial perfusion imaging with evidence of partially reversible defect involving the distal anterior wall of the left ventricle. Normal left ventricular systolic function. Cardiac catheterization history: August 2020 revealing a patent stent in the proximal and mid LAD. Elevated LVEDP. According to office note, patient had a cardiac catheterization 09/20/2022 that revealed patent stent in the LAD, mild to moderate disease involving the RCA, normal left-sided filling pressure. REVIEW OF SYSTEMS: At the time of my exam: CONSTITUTIONAL: Denies fever or chills. HEENT: Denies blurred vision, vision changes, or eye pain. Denies hemoptysis CARDIOVASCULAR: Denies chest pain. Denies orthopnea. Denies PND. Denies palpitations RESPIRATORY: + shortness of breath. + Cough. + Sputum production. GASTROINTESTINAL: Denies abdominal pain. Denies nausea or vomiting. HEMATOLOGIC: Denies bleeding disorders. GENITOURINARY: Denies any blood in urine. SKIN: Denies pruitis. Denies rash. PHYSICAL EXAM: VITAL SIGNS: Reviewed. GENERAL: Well-developed in no acute distress. HEENT: Head is normocephalic. Pupils are equal, round. Sclerae anicteric. Mucous membranes of the mouth are moist. Neck supple. Carotid bruit. LUNGS: Respirations even and unlabored. Lungs with expiratory wheezing throughout HEART: Regular rate and rhythm. S1 and S2 heard. ABDOMEN: Soft. Nondistended. Nontender. EXTREMITIES: Normal range of motion. No clubbing or cyanosis. Peripheral pulses intact. No lower extremity edema NEUROLOGIC: Awake and alert. Oriented x 3. ASSESSMENT: Elevated troponin secondary to type II PA related to COPD with no evidence of acute ischemia Acute exacerbation of COPD Coronary artery disease with previous stenting of LAD Peripheral arterial disease History of left subclavian stenting Carotid stenosis [place] post left carotid endarterectomy and stent of the left common carotid artery Nicotine dependence- quit 2-3 weeks ago PLAN: Discontinue heparin drip Continue patient's home cardiac medications Add aspirin 81 mg daily Hold Catapres and monitor blood pressure closely Further recommendations as patient progresses. Nurse practitioner note has been reviewed by physician. Signing provider agrees with the documented findings, assessment, and plan of care. Past Medical History Past Medical History: Asthma, Coronary Artery Disease (CAD), Chest Pain / Angina, COPD, GERD/Reflux, Hyperlipidemia, Hypertension, Myocardial Infarction (PA), Respiratory Disorder, Seizure Disorder, Thyroid Disorder, Vascular Disorder Additional Past Medical History / Comment(s): PRN oxygen use, 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 carotid blockage, PAD, vertigo at times. Last Myocardial Infarction Date:: 06/2022 History of Any Multi-Drug Resistant Organisms: None Reported Past Surgical History: Heart Catheterization, Heart Catheterization With Stent, Hysterectomy, Joint Replacement, Orthopedic Surgery Additional Past Surgical History / Comment(s): RT ROTATOR CUFF REPAIR, R total knee, CYSTS REMOVED FROM UNDER ARMS AND HANDS, arch studies, L caratid endartectomy, 4 cardiac stents, several peripheral stents, 07/18/18 left subclavian stent, arch studies. 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 Pt has never received blood. Date of Last Stent Placement:: Nov 2017 Past Psychological History: Anxiety, Depression Smoking Status: Current every day smoker Past Alcohol Use History: None Reported Past Drug Use History: Marijuana - Past Family History Mother Family Medical History: Cancer Sister(s) Family Medical History: Cancer Medications and Allergies Home Medications Medication Instructions Recorded Confirmed Type Escitalopram [Lexapro] 40 mg PO DAILY 11/28/17 02/23/23 History Levothyroxine Sodium 200 mcg PO DAILY 08/20/20 02/23/23 History Nitroglycerin Sl Tabs [Nitrostat] 0.4 mg SL Q5M PRN 08/20/20 02/23/23 History Gabapentin 600 mg PO TID 06/18/21 02/23/23 History Doxepin [SINEquan] 10 mg PO HS 02/25/22 02/23/23 History Atorvastatin [Lipitor] 40 mg PO HS #30 tab 06/21/22 02/23/23 Rx Clopidogrel [Plavix] 75 mg PO DAILY #90 tablet 10/28/22 02/23/23 Rx Albuterol Sulfate [Albuterol 1 - 2 puff PO RT-Q6H PRN 02/03/23 02/23/23 History Sulfate Hfa] buprenorphine HCL [Subutex] 4 mg SL DAILY 02/03/23 02/23/23 History cloNIDine HCL [Catapres] 0.2 mg PO BID 02/03/23 02/23/23 History levETIRAcetam [Keppra] 1,500 mg PO BID 02/03/23 02/23/23 History predniSONE 10 mg PO DAILY 9 Days #21 tab 02/07/23 02/23/23 Rx Midodrine HCl [ProAmatine] 10 mg PO BID 02/23/23 02/23/23 History buprenorphine HCL [Subutex] 2 mg SL HS 02/23/23 02/23/23 History Allergies Allergy/AdvReac Type Severity Reaction Status Date / Time No Known Allergies Allergy Verified 02/23/23 13:28 Physical Exam Vitals: Vital Signs Temp Pulse Pulse Resp BP BP Pulse Ox 02/24/23 08:20 82 02/24/23 08:09 88 02/24/23 08:01 95 02/24/23 07:58 86 02/24/23 04:03 02/24/23 04:00 94 17 129/72 98 02/24/23 02:00 86 18 02/24/23 00:00 86 18 98/55 97 02/23/23 23:52 02/23/23 22:10 71/51 02/23/23 22:00 80/49 02/23/23 21:55 74/47 02/23/23 21:45 84 02/23/23 21:40 96 02/23/23 21:38 82 02/23/23 20:57 97.9 F 86 20 56/33 95 02/23/23 20:55 98.0 F 98 22 100/69 93 L 02/23/23 19:00 94 20 101/73 94 L 02/23/23 18:00 88 20 118/84 99 02/23/23 17:02 86 20 50/30 95 02/23/23 17:00 86 21 104/66 97 02/23/23 16:00 90 20 100/68 97 02/23/23 15:00 95 20 103/52 96 02/23/23 13:00 99 22 93/71 94 L 02/23/23 12:30 101 H 22 75/65 94 L 02/23/23 12:00 99 22 88/62 94 L 02/23/23 11:55 20 02/23/23 11:53 98.0 F 104 H 20 88/62 93 L 02/23/23 11:49 98.2 F 56 L 20 56/33 90 L FiO2 02/24/23 08:20 02/24/23 08:09 12/07/23 08:01 02/24/23 07:58 02/24/23 04:03 40 02/24/23 04:00 40 02/24/23 02:00 02/24/23 00:00 40 02/23/23 23:52 40 02/23/23 22:10 02/23/23 22:00 02/23/23 21:55 02/23/23 21:45 02/23/23 21:40 02/23/23 21:38 02/23/23 20:57 02/23/23 20:55 02/23/23 19:00 02/23/23 18:00 02/23/23 17:02 02/23/23 17:00 02/23/23 16:00 02/23/23 15:00 02/23/23 13:00 02/23/23 12:30 02/23/23 12:00 02/23/23 11:55 02/23/23 11:53 02/23/23 11:49 Intake and Output 02/23/23 02/24/23 02/24/23 22:59 06:59 14:59 Intake Total 85.931 Balance 85.931 Intake: Intake, IV Titration 85.931 Amount Heparin Sod,Pork in 0.45% 85.931 NaCl 25,000 unit In 0.45 % NaCl 1 250ml.bag @ 12 UNITS/KG/HR 8.056 mls/hr IV .Q24H [facility] Rx#: [id number] Other: Voiding Method Diaper Diaper External Catheter # Voids 2 2 1 Weight 67.132 kg Results 02/24/23 08:40 02/24/23 08:40 Cardiac Enzymes 02/23/23 02/23/23 02/23/23 Range/Units 12:17 12: 18:54 AST 22 (14-36) U/L Troponin I 0.180 H* 0.191 H* (0.000-0.034) ng/mL 02/23/23 Range/Units 21:22 AST (14-36) U/L Troponin I 0.183 H* (0.000-0.034) ng/mL Coagulation 02/23/23 02/23/23 Range/Units 12:17 21:22 PT 10.1 (10.0-12.5) sec APTT 23.2 26.2 (22.0-30.0) sec CBC 02/23/23 Range/Units 12:17 WBC 7.2 (3.8-10.6) k/uL RBC 3.83 (3.80-5.40) m/uL Hgb 11.8 (11.4-16.0) gm/dL Hct 37.0 (34.0-46.0) % Plt Count 216 (150-450) k/uL Comprehensive Metabolic Panel 02/23/23 Range/Units 12:17 Sodium 136 L (137-145) mmol/L Potassium 4.3 (3.5-5.1) mmol/L Chloride 98 (98-107) mmol/L Carbon Dioxide 25 (22-30) mmol/L BUN 10 (7-17) mg/dL Creatinine 0.67 (0.52-1.04) mg/dL Glucose 145 H (74-99) mg/dL Calcium 8.5 (8.4-10.2) mg/dL AST 22 (14-36) U/L ALT 19 (4-34) U/L Alkaline Phosphatase 85 (38-126) U/L Total Protein 6.4 (6.3-8.2) g/dL Albumin 3.7 (3.5-5.0) g/dL Current Medications Generic Name Dose Route Start Last Admin Trade Name Freq PRN Reason Stop Dose Admin Albuterol Sulfate 2.5 mg 02/23/23 21:26 02/23/23 21:36 Albuterol Nebulized 2.5 Mg/3 Ml INHALATION 2.5 mg RT-QID PRN Administration Shortness Of Breath Or Wheezing Albuterol/Ipratropium 3 ml 02/24/23 08:00 02/24/23 07:58 Ipratropium-Albuterol 3 Ml Neb INHALATION 3 ml RT-QID VINICIO Administration Atorvastatin Calcium 40 mg 02/23/23 21:00 02/24/23 06:59 Atorvastatin 40 Mg Tab PO Not Given HS VINICIO Budesonide 1 mg 02/24/23 08:00 02/24/23 07:58 Budesonide 1 Mg/2 Ml Nebu INHALATION 1 mg RT-BID VINICIO Administration Clopidogrel Bisulfate 75 mg 02/24/23 09:00 Clopidogrel 75 Mg Tab PO DAILY VINICIO Doxepin HCl 10 mg 02/23/23 21:00 02/24/23 06:59 Doxepin 10 Mg Cap PO Not Given HS [facility] Escitalopram Oxalate 40 mg 02/24/23 09:00 Escitalopram 20 Mg Tab PO DAILY [facility] Formoterol Fumarate 20 mcg 02/24/23 08:00 12 07:58 Formoterol Fumarate 20 Mcg/2 Ml Nebu INHALATION 20 mcg RT-BID VINICIO Administration Gabapentin 600 mg 02/23/23 22:00 02/24/23 06:59 Gabapentin 300 Mg Cap PO Not Given TID VINICIO Heparin Sodium (Porcine) 0 unit 02/23/23 14:51 Heparin Sodium 1,000 Un/Ml (10ml Vl) IV PER PROTOCOL PRN Low PTT Protocol Heparin Sodium/Sodium Chloride 250 mls @ 8.056 mls/hr 02/23/23 15:00 02/24/23 01:40 25,000 unit/ Sodium Chloride IV 15 units/kg/hr .Q24H V[facility]ICIO 10.07 mls/hr Titration Protocol 12 UNITS/KG/HR Azithromycin 500 mg/ Sodium 250 mls @ 250 mls/hr 02/24/23 09:00 Chloride IVPB 02/26/23 09:59 DAILY [facility] Protocol Ceftriaxone Sodium 2 gm/ 50 mls @ 100 mls/hr 02/24/23 09:00 Sodium Chloride IVPB Q24HR [facility] Protocol Levetiracetam 1,500 mg 02/23/23 21:00 02/24/23 06:59 Levetiracetam 500 Mg Tab PO Not Given BID [facility] Levothyroxine Sodium 200 mcg 02/24/23 06:30 02/24/23 07:03 Levothyroxine 100 Mcg Tab PO 200 mcg 0630 VINICIO Administration Methylprednisolone Sodium Succinate 60 mg 02/23/23 22:00 02/24/23 04:25 Methylprednisolone Sod Succi 125 Mg/2 Ml Vial IV 60 mg Q6H [facility]IC[facility] Administration Midodrine 10 mg 02/24/23 07:30 02/24/23 07:03 Midodrine 5 Mg Tab PO 10 mg AC-BID VINICIO Administration Naloxone HCl 0.2 mg 02/23/23 16:28 Naloxone 0.4 Mg/Ml 1 Ml Vial IV Q2M PRN Opioid Reversal Nitroglycerin 0.4 mg 02/23/23 18:07 Nitroglycerin Sl Tabs 0.4 Mg Tab SUBLINGUAL Q5M PRN Chest Pain Subutex ( 2 mg 02/23/23 21:00 02/24/23 06:59 Buprenorphine Hcl) 2 SUBLINGUAL Not Given Mg Sl Tablet HS VINICIO Subutex ( 4 mg 02/24/23 09:00 Buprenorphine Hcl) 2 SUBLINGUAL Mg Sl Tablet DAILY VINICIO Intake and Output 02/23/23 02/24/23 02/24/23 22:59 06:59 14:59 Intake Total 85.931 Balance 85.931 Intake: Intake, IV Titration 85.931 Amount Heparin Sod,Pork in 0.45% 85.931 NaCl 25,000 unit In 0.45 % NaCl 1 250ml.bag @ 12 UNITS/KG/HR 8.056 mls/hr IV .Q24H [facility] Rx#: [id number] Other: Voiding Method Diaper Diaper External Catheter # Voids 2 2 1 Weight 67.132 kg 02/23/23 12:17 02/23/23 12:17
--- NOTE | 2023-02-24 13:35 | CDI ---
Documentation Clarification Form Date: 02/24/2023 12:01:03 PM From: Krysten Schuster RN CCDS Phone: [phone] Admit Date: 02/23/2023 04:40:00 PM Patient Name: Lidia Chang Visit Number: [id number] Discharge Date: ATTENTION: The Clinical Documentation Specialists (CDI) and [facility] Coding Staff appreciate your assistance in clarifying documentation. Please respond to the clarification below the line at the bottom and electronically sign. The CDI & [facility] Coding staff will review the response and follow-up if needed. Please note: Queries are made part of the Legal Health Record. If you have any questions, please contact the author of this message via ITS. Dr. Jose F Mcwilliams The patients principal diagnosis the diagnosis that was chiefly responsible for the admission - has not been clearly identified and clarification is requested. The patient presented with the following generalized weakness, confused, low blood pressure and shortness of breath. 02/23, ED note History/Risk factors: 62-year-old female presents after a recent discharge form the hospital. Medical History: Severe COPD, Asthma, CAD and HTN. 02/23,H&P. Clinical Indicators: Lab findings, 02/23: Wbc 7.2, Hgb 11.8, D-dimer 1.17, Arterial Blood Gas PH 7.29 pCO2 68 pO2 74 HCO3 32 Total CO2 34, NA 136, Blood glucose 222, Lactic acid 3.0, Troponin 0.180 0.191 0.183 CXR, 02/23: No acute pulmonary process Vital Signs, 02/23 B/P 56/33, HR 56, Temp 98.2F Oral, SpO2 90% room air Cardiology consult, 02/24: Elevated troponin secondary to type 2MI related to COPD with no evidence of acute ischemia. Pulmonary consult, 02/24: Patient was essentially admitted for Acute COPD exacerbation. Treatment: 02/23 Oxygen nasal cannula and Bipap, 02/23 Heparin IV 4,000 units x 1; 02/23 02/24 Heparin IVPB per protocol, 02/23 0.9NS 1L bolus, 02/23 Ventolin Inhalation QID PRN, 02/23 Solumedrol 60mg IV Q6H VINICIO, 02/24 Duoneb Inhalation QID VINICIO, 02/24 Pulmicort Inhalation BID VINICIO, Performist Inhalation BID VINICIO, Azithromycin IVPB Daily Scheduled x 3 bags, 02/24 Ceftriaxone IVPB Q24HR [facility], Consults: See above In your professional opinion, can you please clarify which diagnosis, after study, was the reason chiefly responsible for the admission? [ ] Acute exacerbation of COPD [ ] Other, please specify [ ] Unable to determine (Template Last Revised: May 2020) Documented in the Discharge Summary 02/25 Dr. Delaney Acute exacerbation of COPD 02/25 MTDD
--- NOTE | 2023-02-24 13:53 | CDI ---
Documentation Clarification Form Date: 02/24/2023 01:36:55 PM From: Krysten Schuster RN CCDS Phone: [phone] Admit Date: 02/23/2023 04:40:00 PM Patient Name: Lidia Chang Visit Number: [id number] Discharge Date: ATTENTION: The Clinical Documentation Specialists (CDI) and [facility] Coding Staff appreciate your assistance in clarifying documentation. Please respond to the clarification below the line at the bottom and electronically sign. The CDI & [facility] Coding staff will review the response and follow-up if needed. Please note: Queries are made part of the Legal Health Record. If you have any questions, please contact the author of this message via ITS. Dr. Jose F Mcwilliams Your patient has the documented symptom of Altered Mental Status [insert date, location]. Additional clarification regarding the etiology/cause of this symptom is requested. History/Risk Factors: 62-year-old female presents to ED after a recent admission in ICU for respiratory failure. Medical History: Severe COPD, Asthma and CAD. 02/23, ED note Clinical Indicators: Labs, 02/23 Arterial Blood Gas PH 7.29 pCO2 68 pO2 74 HCO3 32 Total CO2 34, CXR, 02/23: No acute pulmonary process. CT Brain, 02/23: No acute intracranial hemorrhage or midline shift is seen. Treatment: 02/23 Oxygen via nasal cannula and Bipap, 02/23 Ventolin Inhalation QID PRN, 02/23 Solumedrol 60mg IV Q6H VINICIO, 02/24 Duoneb Inhalation QID VINICIO, 02/24 Pulmicort Inhalation BID VINICIO, Performist Inhalation BID VINICIO, Azithromycin IVPB Daily Scheduled x 3 bags, 02/24 Ceftriaxone IVPB Q24HR [facility]ICIO, Please clarify the etiology of the symptom of Altered Mental Status: [ x] Metabolic Encephalopathy due to hypoxic respiratory failure. [ ] Other condition (please specify) [ ] Unable to determine (Template Last Revised: April 2020) MTDD
--- NOTE | 2023-02-24 15:26 | FL ---
Modified barium swallow. HISTORY: Dysphagia. Modified barium swallow was performed with the department of speech pathology. The patient was prese nted with various consistencies of barium. Mild transient penetration. No evidence for aspiration. Full report is to follow from the department of speech pathology. Impression: No evidence for aspiration.
[2023-02-24] MEDS: ACETAMINOPHEN TAB 325 MG TAB PO PRN (16:33)
[2023-02-25] MEDS ORDERED: guaiFENesin SYRUP 100MG/5ML 200 MG/10 ML CUP PO PRN (04:33)
[2023-02-25] MEDS: methylPREDNISolone SOD SUCCI 125 MG/2 ML VIAL IV SCH ×2 (05:03→12:06)
[2023-02-25] MEDS: MIDODRINE 5 MG TAB PO SCH (05:03)
[2023-02-25] MEDS: LEVOTHYROXINE 100 MCG TAB PO SCH (05:04)
[2023-02-25] MEDS: FORMOTEROL FUMARATE 20 MCG/2 ML NEBU INHALATION SCH (07:34)
[2023-02-25] MEDS: IPRATROPIUM-ALBUTEROL 3 ML NEB INHALATION SCH ×3 (07:35→15:12)
[2023-02-25] MEDS: BUDESONIDE 1 MG/2 ML NEBU INHALATION SCH (07:35)
[2023-02-25 08:38] LABS: HCT 39.1 % (34.0-46.0); HGB 12.1 gm/dL (11.4-16.0); Hypochromasia Moderate; MCH 29.7 pg (25.0-35.0); MCV 95.8 fL (80.0-100.0); Mean Platelet Volume 7.7; Platelet Count 261 k/uL (150-450); RBC 4.09 m/uL (3.80-5.40); RDW 15.6 % (11.5-15.5); WBC 10.6 k/uL (3.8-10.6)
[2023-02-25 08:50] LABS: ALT 15 U/L (4-34); AST 22 U/L (14-36); African American GFR (CKD) >90 (>60 ml/min/1.73 sqM); Albumin 3.6 g/dL (3.5-5.0); Alkaline Phosphatase 88 U/L (38-126); Anion Gap 10 mmol/L; Blood Urea Nitrogen 16 mg/dL (7-17); Calcium 8.5 mg/dL (8.4-10.2); Carbon Dioxide 27 mmol/L (22-30); Chloride 98 mmol/L (98-107); Glucose 107 mg/dL (74-99); Non-African American GFR(CKD) >90 (>60 ml/min/1.73 sqM); Potassium 5.1 mmol/L (3.5-5.1); Sodium 135 mmol/L (137-145); Total Bilirubin 0.3 mg/dL (0.2-1.3); Total Protein 6.5 g/dL (6.3-8.2)
[2023-02-25] MEDS ORDERED: ASPIRIN 81 MG PO SCH (09:00)
[2023-02-25] MEDS ORDERED: predniSONE 20 MG TAB PO SCH (10:30)
[2023-02-25] MEDS: levETIRAcetam 500 MG TAB PO SCH (10:42)
[2023-02-25] MEDS: GABAPENTIN 300 MG CAP PO SCH (10:42)
[2023-02-25] MEDS: ESCITALOPRAM 20 MG TAB PO SCH (10:43)
[2023-02-25] MEDS: CLOPIDOGREL 75 MG TAB PO SCH (10:43)
[2023-02-25] MEDS: ACETAMINOPHEN TAB 325 MG TAB PO PRN (10:43)
[2023-02-25 11:26] VITALS: TEMP 98.1
--- NOTE | 2023-02-25 12:37 | P.PN ---
Subjective Progress Note Date: 02/25/23 I am seeing this patient in consultation today 02/24/2023 after a rapid response was called late last night for altered mental status and hypotension. Patient is a 62-year-old white female past medical history significant for severe oxygen dependent COPD, chronic ongoing tobacco dependence, hyperlipidemia, coronary artery disease with previous coronary stents, carotid artery stenosis status post left carotid stenting, hypothyroidism, seizure disorder. Patient just recently had a hospital admission for similar symptoms earlier in January. She did require a brief ICU stay, and was on the BiPAP for hypercapnic respiratory failure. Patient's daughter is at bedside, who states that she was doing well up until the Tuesday after Thanks. Unfortunately she continues to smoke. She was having some issues with shortness of breath, she lost her voice. This progressively worsened. Patient returned to the emergency room yesterday afternoon complaining of severe shortness of breath for the last 2 days. She was also weak and lethargic. Chest CTA on arrival did not show any acute pulmonary embolism. It did show mild to moderate emphysematous changes without any suspicious acute cardiopulmonary process. Patient is currently obtunded, only responds to painful stimulus. She is currently on 3 L/m nasal cannula. During the A team, she was hypotensive and given 500 ML's normal saline bolus. Blood pressure is currently 90s over 60s. Her blood pressure runs low at baseline, and she takes midodrine 10 mg 2 times a day at home. I did ask for ABGs to be drawn, which show a component of hypercapnic respiratory failure with a pH of 7.29, pCO2 of 68, pO2 of 74, this was done on FiO2 of 32% or 3 L/m nasal cannula. Patient was placed on the BiPAP with settings 12/5 and an FiO2 of 40%. She is achieving adequate tidal volumes. CBC on arrival is unremarkable. No leukocytosis. She is covered on empiric antibiotics in the form of azithromycin and Rocephin. Also started on medications for COPD exacerbation including DuoNeb's, budesonide, formoterol, and IV Solu-Medrol. Negative for influenza, RSV, COVID-19. Is afebrile. BMP also unremarkable. Lactic acid level not elevated. Troponins were 0.18, 0.19, and 0.18 respectively. Not likely consistent with acute GA. She is on heparin infusion per protocol. Cardiology is managing this. She will continued to be monitored on the cardiac stepdown unit. We will consider transfer to the intensive care unit if no improvement in respiratory status or CO2 narcosis. on today's evaluation of 02/25/2023, seeing the patient for a follow-up. The patient is known to have severe COPD and the patient's has less for an acute COPD exacerbation. She is currently off the BiPAP which is feeling much better. She feels less bronchospastic and wheezy at this point in time. No altered mentation. No signs of any CO2 narcosis. The patient isFeeling much better on today's evaluation. The bronchoscope was attempted 0.6, hemoglobin 4.1 and a platelet count of 61. BUN is at 60 with a creatinine of 0.6 and a sodium level is at 135. Her pro calcitonin level was at 0.04. Patient is currently on albuterol and Atrovent neb blotchiness 4 times a day, IV Solu-Medrol, Rocephin and Zithromax and she was taken off the IV Solu-Medrol and started on a prednisone burst taper. No other significant events overnight. Overall, improving. She is currently on O2 at 2 L/m nasal cannula. Objective - Vital Signs Vital signs: Vital Signs Temp 98.4 F 02/25/23 04:00 Pulse 80 02/25/23 07:52 Resp 20 02/25/23 04:00 BP 94/58 02/25/23 04:00 Pulse Ox 96 02/25/23 04:00 FiO2 40 02/24/23 04:03 Intake & Output 02/24/23 02/25/23 02/25/23 18:59 06:59 18:59 Intake Total 720 222 Output Total 1500 1200 Balance 541 -1500 978 Intake: Oral 720 222 Output: Urine 1500 1200 Other: Voiding Method External Catheter External Catheter # Voids 3 3 - Exam GENERAL EXAM: Obtunded 62-year-old white female, withdrawal to painful stimuli. Rpatient was taken off the BiPAP and the patient is currently on 2 L O2 nasal cannula HEAD: Normocephalic and atraumatic EYES: Normal reaction of pupils, equal size. NOSE: Clear with pink turbinates. THROAT: No erythema or exudates. NECK: No masses, no JVD. CHEST: No chest wall deformity. LUNGS: Equal air entry with expiratory wheezes heard throughout. On BiPAP with settings 45 and FiO2 of 40%. No accessory muscle use. CVS: S1 and S2 normal with soft systolic murmur, regular rhythm. No other extra heart sounds ABDOMEN: No hepatosplenomegaly, active bowel sounds, no guarding or rigidity. SPINE: No scoliosis or deformity SKIN: No rashes CENTRAL NERVOUS SYSTEM: No focal deficits, withdrawals to pain in all 4 extremities EXTREMITIES: There is no peripheral edema, clubbing, or cyanosis. Peripheral pulses are intact. - Labs CBC & Chem 7: 02/25/23 07:09 02/25/23 07:09 Labs: Abnormal Lab Results - Last 24 Hours (Table) 02/25/23 02/25/23 Range/Units 07: 07:09 RDW 15.6 H (11.5-15.5) % Sodium 135 L (137-145) mmol/L Glucose 107 H (74-99) mg/dL Assessment and Plan Assessment: Acute COPD exacerbation, chest x-ray shows no acute cardiopulmonary process or evidence of pneumonia. Negative for influenza, RSV, COVID-19.patient is improved. The patient is currently off the BiPAP on O2 at 2 L/m nasal cannula Acute on chronic hypoxic and hypercapnic respiratory failure, secondary to above, improved Altered mental status, related to hypercapnic encephalopathy, improved and the mental status currently back to normal Chronic ongoing tobacco dependence Hypotension, improved with IV fluid resuscitation. is normal at this point in time Elevated troponins, flat, not consistent with ACS Hyperlipidemia Coronary artery disease, with multiple previous coronary stents Carotid artery stenosis, status post left carotid stenting Hypothyroidism History of seizure disorder Chronic left knee pain, receives Subutex outpatient Plan: clinically improved and the patient is currently on 2 L of oxygen by nasal cannula and the patient was taken off the BiPAP Continue updrafts Continue the IV Sonneman also the patient on prednisone burst taper starting with 40 mg Echo was within normal limits The patient type to cardiac ischemia with some limited troponin leaks Patient is feeling better and she is less short of breath and no chest pain at this point in time Patient has trTrelegy Ellipta at home one inhalation a day and she also has a nebulizer We'll continue to follow
--- NOTE | 2023-02-25 12:49 | P.PN ---
Subjective Progress Note Date: 02/25/23 Elevated troponins History of present illness: HISTORY OF PRESENT ILLNESS: This is a 62-year-old female patient of Dr. Vale with a past medical history significant for coronary artery disease with previous stenting of the LAD, hypertension, dyslipidemia, peripheral arterial disease, carotid atherosclerosis status post left carotid endarterectomy followed by stenting of the left common carotid artery, PAD with prior left subclavian stenting, COPD, and nicotine dependence. We have been asked to see the patient in consultation for elevated troponins. Patient presented to the hospital with a chief complaint of shortness of breath ongoing for a couple of days along with cough and wheezing. Patient was admitted to the hospital and under treatment for COPD exacerbation. She gives history of quitting smoking 2-3 weeks ago. Patient denies having any chest pain. No dizziness, no palpitations, no lower extremity edema. No nausea or vomiting. She's noticed no blood in her urine or stools. She sleeps on 2 pillows at home. She states she is not very active because she also has a broken leg. It has been started on a heparin drip. Patient states that she quit smoking 2-3 weeks ago. EKG reveals sinus mechanism with no signs of acute ischemia Chest xray no acute process. CTA of the chest showed no evidence of acute pulmonary embolism. Mild/moderate emphysematous change without suspicion for acute pulmonary process. CBC within normal limits. INR 0.9. D-dimer 1.17. Potassium 5.0, BUN 12 and creatinine 0.59. Troponins 0.18, 0.19, 0.183. Liver function tests are normal. Pro-calcitonin 0.04. TSH less than 0.015, free T4 abnormal [place] at 2.63. Influenza A, influenza B, RSV, Covid 19 not detected. Current home cardiac medications include atorvastatin 40 mg at bedtime, Plavix 75 mg daily, midodrine 10 mg twice daily, and clonidine 0.2 mg twice a day Most recent echocardiogram, limited, obtained in June 2022 revealed normal ejection fraction Lexiscan stress test performed 08/20/2022 was probably abnormal myocardial perfusion imaging with evidence of partially reversible defect involving the distal anterior wall of the left ventricle. Normal left ventricular systolic function. Cardiac catheterization history: August 2020 revealing a patent stent in the proximal and mid LAD. Elevated LVEDP. According to office note, patient had a cardiac catheterization 09/20/2022 that revealed patent stent in the LAD, mild to moderate disease involving the RCA, normal left-sided filling pressure. 02/25 Patient states that she is feeling a lot better, breathing is better. Less wheezing. Yesterday, heparin drip was discontinued, patient resumed on home cardiac medications and aspirin was added. Catapres was placed on hold for soft blood pressure readings. Patient is on midodrine her home medication. Telemetry is sinus rhythm. PHYSICAL EXAM: VITAL SIGNS: Reviewed. GENERAL: Well-developed in no acute distress. HEENT: Head is normocephalic. Pupils are equal, round. Sclerae anicteric. Mucous membranes of the mouth are moist. Neck supple. Carotid bruit. LUNGS: Respirations even and unlabored. HEART: Regular rate and rhythm. S1 and S2 heard. ABDOMEN: Soft. Nondistended. Nontender. EXTREMITIES: Normal range of motion. No clubbing or cyanosis. Peripheral pulses intact. No lower extremity edema NEUROLOGIC: Awake and alert. Oriented x 3. ASSESSMENT: Elevated troponin secondary to type II DE related to COPD with no evidence of acute ischemia Acute exacerbation of COPD Coronary artery disease with previous stenting of LAD Peripheral arterial disease History of left subclavian stenting Carotid stenosis Sofai post left carotid endarterectomy and stent of the left common carotid artery Nicotine dependence- quit 2-3 weeks ago PLAN: Continue patient's home cardiac medications Continue aspirin 81 mg daily Hold Catapres and monitor blood pressure closely Cardiology will sign off this case and follow on an as-needed basis. Please reconsult for any new concerns. Patient may follow-up in the office in one to 2 weeks. Nurse practitioner note has been reviewed by physician. Signing provider agrees with the documented findings, assessment, and plan of care. Objective - Vital Signs Vital signs: Vital Signs Temp 98.4 F 02/25/23 04:00 Pulse 80 02/25/23 07:52 Resp 20 02/25/23 04:00 BP 94/58 02/25/23 04:00 Pulse Ox 96 02/25/23 04:00 FiO2 40 02/24/23 04:03 Intake & Output 02/24/23 02/25/23 02/25/23 18:59 06:59 18:59 Intake Total 720 Output Total 1500 Balance 720 -1500 Intake: Oral 720 Output: Urine 1500 Other: Voiding Method External Catheter External Catheter # Voids 3 - Labs CBC & Chem 7: 02/25/23 07:09 02/25/23 07:09 Labs: Abnormal Lab Results - Last 24 Hours (Table) 02/24/23 02/24/23 02/24/23 Range/Units 08:40 08:40 08:40 Lymphocytes # 0.5 L (1.0-4.8) k/uL APTT 30.4 H (22.0-30.0) sec Carbon Dioxide 32 H (22-30) mmol/L Glucose 127 H (74-99) mg/dL Total Protein 6.0 L (6.3-8.2) g/dL Albumin 3.4 L (3.5-5.0) g/dL
[2023-02-25] MEDS: AZITHROMYCIN 500 MG in SODIUM CHLORIDE 0.9% 250 ML IVPB SCH (13:35)
[2023-02-25 13:52] VITALS: BP 119/60; PULSE 97; RESP 16
--- NOTE | 2023-02-25 15:37 | P.DS ---
Providers Date of admission: 02/23/23 16:40 Expected date of discharge: 02/25/23 Attending physician: Jose F Mcwilliams Consults: 02/23/23 14:30 Consult Physician Routine Consulting Provider: Karthik Vale Consult Reason/Comments: elevated troponin Do you want consulting provider notified?: Yes 02/23/23 21:27 Consult Physician Routine Consulting Provider: Karlie Marques Consult Reason/Comments: COPD Do you want consulting provider notified?: Yes Primary care physician: Jose F Mcwilliams Hospital Course: 62-year-old white female with known history of severe COPD who was just dischar ged on ICU after having restaurant failure. She is somewhat a poor historian now but states that when she went to the ER she had extremity weakness and confusion. No loss of consciousness stated. No chest pain. When I asked her summer questions she is somewhat difficult to arouse. However she answers questions somewhat slowly but appropriately to yes and no. She has no idea what had happened prior. She states compliance with medication. No overt shortness of breath stated. Labs do not show any type of hypercarbia. However x-rays and CT scans do show emphysematous changes. No pneumonia. Acute COPD exacerbation, chest x-ray shows no acute cardiopulmonary process or evidence of pneumonia. Negative for influenza, RSV, COVID-19.patient is improved. The patient is currently off the BiPAP on O2 at 2 L/m nasal cannula Acute on chronic hypoxic and hypercapnic respiratory failure, secondary to above, improved Altered mental status, related to hypercapnic encephalopathy, improved and the mental status currently back to normal Chronic ongoing tobacco dependence Hypotension, improved with IV fluid resuscitation. is normal at this point in time Elevated troponins, flat, not consistent with ACS Hyperlipidemia Coronary artery disease, with multiple previous coronary stents Carotid artery stenosis, status post left carotid stenting Hypothyroidism History of seizure disorder Chronic left knee pain, receives Subutex outpatient Patient is cleared for discharge by cardiology and pulmonary service Patient Condition at Discharge: Stable Plan - Discharge Summary Discharge Rx Participant: No New Discharge Prescriptions: New Aspirin 81 mg PO DAILY tab predniSONE [Deltasone] 40 mg PO DAILY 5 Days #5 tab Azithromycin [Zithromax] 500 mg PO DAILY 3 Days #3 tab Continue Escitalopram [Lexapro] 40 mg PO DAILY Nitroglycerin Sl Tabs [Nitrostat] 0.4 mg SL Q5M PRN PRN Reason: Chest Pain Doxepin [SINEquan] 10 mg PO HS levETIRAcetam [Keppra] 1,500 mg PO BID Albuterol Sulfate [Albuterol Sulfate Hfa] 1 - 2 puff PO RT-Q6H PRN PRN Reason: Shortness Of Breath buprenorphine HCL [Subutex] 2 mg SL HS Levothyroxine Sodium 200 mcg PO DAILY Gabapentin 600 mg PO TID Atorvastatin [Lipitor] 40 mg PO HS #30 tab Clopidogrel [Plavix] 75 mg PO DAILY #90 tablet cloNIDine HCL [Catapres] 0.2 mg PO BID buprenorphine HCL [Subutex] 4 mg SL DAILY Midodrine HCl [ProAmatine] 10 mg PO BID Discontinued predniSONE 10 mg PO DAILY 9 Days #21 tab Discharge Medication List Escitalopram [Lexapro] 40 mg PO DAILY 11/28/17 [History] Levothyroxine Sodium 200 mcg PO DAILY 08/20/20 [History] Nitroglycerin Sl Tabs [Nitrostat] 0.4 mg SL Q5M PRN 08/20/20 [History] Gabapentin 600 mg PO TID 06/18/21 [History] Doxepin [SINEquan] 10 mg PO HS 02/25/22 [History] Atorvastatin [Lipitor] 40 mg PO HS #30 tab 06/21/22 [Rx] Clopidogrel [Plavix] 75 mg PO DAILY #90 tablet 10/28/22 [Rx] Albuterol Sulfate [Albuterol Sulfate Hfa] 1 - 2 puff PO RT-Q6H PRN 02/03/23 [History] buprenorphine HCL [Subutex] 4 mg SL DAILY 02/03/23 [History] cloNIDine HCL [Catapres] 0.2 mg PO BID 02/03/23 [History] levETIRAcetam [Keppra] 1,500 mg PO BID 02/03/23 [History] Midodrine HCl [ProAmatine] 10 mg PO BID 02/23/23 [History] buprenorphine HCL [Subutex] 2 mg SL HS 02/23/23 [History] Aspirin 81 mg PO DAILY tab 02/25/23 [Rx] Azithromycin [Zithromax] 500 mg PO DAILY 3 Days #3 tab 02/25/23 [Rx] predniSONE [Deltasone] 40 mg PO DAILY 5 Days #5 tab 02/25/23 [Rx] Follow up Appointment(s)/Ref[facility]): [facility] - Jose F Mcwilliams MD [Primary Care Provider] - 1-2 days Patient Instructions/Handouts: COPD (Chronic Obstructive Pulmonary Disease) (DC) Discharge Disposition: HOME SELF-CARE
[2023-02-26] MEDS ORDERED: AZITHROMYCIN 500 MG TAB PO SCH (09:00)
== END 2023-02-25 15:34 | disposition home or self-care (01) | DRG 190 ==
LOC: EC 11:39 → 3SCARD 16:40
PROVIDERS: ADMIT Family Medicine; ATTEND Family Medicine
PROC: 5A09357 Assistance with Respiratory Ventilation, Less than 24 Consecutive Hours, Continuous Positive Airway Pressure (ICD-10-PCS; principal; 2023-02-23)
DX: J44.1 Chronic obstructive pulmonary disease with (acute) exacerbation (principal); G93.41 Metabolic encephalopathy; I21.A1 Myocardial infarction type 2; J96.21 Acute and chronic respiratory failure with hypoxia; J96.22 Acute and chronic respiratory failure with hypercapnia; F11.20 Opioid dependence, uncomplicated; F17.210 Nicotine dependence, cigarettes, uncomplicated; E78.5 Hyperlipidemia, unspecified; I25.10 Atherosclerotic heart disease of native coronary artery without angina pectoris; Z95.5 Presence of coronary angioplasty implant and graft; G89.29 Other chronic pain; M25.562 Pain in left knee; I65.29 Occlusion and stenosis of unspecified carotid artery; G40.909 Epilepsy, unspecified, not intractable, without status epilepticus; E03.9 Hypothyroidism, unspecified; Z79.890 Hormone replacement therapy; E11.42 Type 2 diabetes mellitus with diabetic polyneuropathy; E11.51 Type 2 diabetes mellitus with diabetic peripheral angiopathy without gangrene; F32.A Depression, unspecified; F41.9 Anxiety disorder, unspecified; I10 Essential (primary) hypertension; I25.2 Old myocardial infarction; Z79.02 Long term (current) use of antithrombotics/antiplatelets; Z79.899 Other long term (current) drug therapy; Z90.710 Acquired absence of both cervix and uterus; Z99.81 Dependence on supplemental oxygen
CPT/HCPCS: 36415; 36600; 70450; 71045; 71046; 71275; 72125; 74230; 80053; 82550; 82805; 83605; 83735; 84145; 84439; 84443; 84484; 85025; 85027; 85379; 85610; 85730; 87636; 93005; 94640; 94660; 94760; 96365; 96366; 99291

== ENCOUNTER 2023-04-09 13:46 | Inpatient (IN) | payer MEDICARE ==
[2023-04-09] MEDS: MIDODRINE 5 MG TAB PO STA (14:57)
[2023-04-09] MEDS: methylPREDNISolone SOD SUCCI 125 MG/2 ML VIAL IV STA (14:58)
[2023-04-09] MEDS: SODIUM CHLORIDE 0.9% 1,000 ML IV STA ×2 (15:03→18:28)
[2023-04-09] MEDS: SODIUM CHLORIDE 0.9% 500 ML 500 ML IV STA ×2 (15:04→17:20)
[2023-04-09 15:24] LABS: INR 0.9 (<1.2); Partial Thromboplastin Time 24.2 sec (22.0-30.0); Prothrombin Time 10.1 sec (10.0-12.5)
--- NOTE | 2023-04-09 15:36 | ED ---
General Adult HPI - General Chief complaint: Dizziness Stated complaint: dizziness falls Time Seen by Provider: 04/09/23 14:17 Source: patient, RN notes reviewed, old records reviewed Mode of arrival: wheelchair Limitations: no limitations - History of Present Illness Initial comments: Patient is a 62-year-old female presents emergency Department complaining of increased difficulty breathing, lightheadedness, concern for COPD exacerbation and possibly her hypotension. Patient states she takes Midodrin for hypertension at home once a day however prescription that we have listed shows that she is supposed be taking it twice per day. Endorses a productive cough as well as wheezing. Place her COPD is flaring up. Family presents with the patient states that she gets like this when her CO2 levels are elevated. Presents for further evaluation at this time. Denies any fevers. Denies any urinary complaints. Denies any other acute complaints at this time. - Related Data Home Medications Medication Instructions Recorded Confirmed Escitalopram [Lexapro] 40 mg PO DAILY 11/28/17 04/09/23 Levothyroxine Sodium 200 mcg PO DAILY 08/20/20 04/09/23 Nitroglycerin Sl Tabs [Nitrostat] 0.4 mg SL Q5M PRN 08/20/20 04/09/23 Doxepin [SINEquan] 10 mg PO HS 02/25/22 04/09/23 Albuterol Sulfate [Albuterol 1 - 2 puff PO RT-Q6H PRN 02/03/23 04/09/23 Sulfate Hfa] cloNIDine HCL [Catapres] 0.2 mg PO BID 02/03/23 04/09/23 levETIRAcetam [Keppra] 1,500 mg PO BID 02/03/23 04/09/23 Albuterol Nebulized [Ventolin 2.5 mg INHALATION RT-QID PRN 04/09/23 04/09/23 Nebulized] Gabapentin 800 mg PO TID 04/09/23 04/09/23 Midodrine HCl [ProAmantine] 2.5 mg PO DAILY 04/09/23 04/09/23 buprenorphine HCL [Subutex] 8 mg SL DAILY 04/09/23 04/09/23 Previous Rx's Medication Instructions Recorded Atorvastatin [Lipitor] 40 mg PO HS #30 tab 06/21/22 Clopidogrel [Plavix] 75 mg PO DAILY #90 tablet 10/28/22 Aspirin 81 mg PO DAILY tab 02/25/23 Allergies Allergy/AdvReac Type Severity Reaction Status Date / Time No Known Allergies Allergy Verified 02/23/23 13:28 Review of Systems ROS Statement: Those systems with pertinent positive or pertinent negative responses have been documented in the HPI. Review of Systems: CONST: Denies fever EYES: Denies blurry vision ENT: Denies nasal congestion C/V: Denies Chest pain RESP: Endorses wheezing GI: Denies abdominal pain : Denies dysuria SKIN: Denies rash. MSK: Denies joint pain. NEURO: Denies headache ROS Other: All systems not noted in ROS Statement are negative. 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 carotid blockage, PAD, vertigo at times. Last Myocardial Infarction Date:: 06/2022 History of Any Multi-Drug Resistant Organisms: None Reported Past Surgical History: Heart Catheterization, Heart Catheterization With Stent, Hysterectomy, Joint Replacement, Orthopedic Surgery Additional Past Surgical History / Comment(s): RT ROTATOR CUFF REPAIR, R total knee, CYSTS REMOVED FROM UNDER ARMS AND HANDS, arch studies, L caratid endartectomy, 4 cardiac stents, several peripheral stents, 07/18/18 left subclavian stent, arch studies. 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 Pt has never received blood. Date of Last Stent Placement:: Nov 2017 Past Psychological History: Anxiety, Depression Smoking Status: Current every day smoker Past Alcohol Use History: None Reported Past Drug Use History: Marijuana - Past Family History Mother Family Medical History: Cancer Sister(s) Family Medical History: Cancer General Exam - General Exam Comments Initial Comments: General: Appears in no acute distress. HEAD: Normal with no signs of head trauma. EYES: PERRLA, EOMI, conjunctiva normal, no discharge. Pupils are 3 mm equal bilaterally. ENT: Hearing grossly intact, normal oropharynx. RESPIRATORY: No end expiratory wheezing. Normoxic on baseline as needed 2 L nasal cannula that she has at home. C/V: Regular rate and rhythm. S1 and S2 auscultated, no edema, peripheral pulses 2+ and intact throughout ABD: Abd is soft, nontender, nondistended EXT: Normal range of motion, no obvious deformity SKIN: No rashes or lesions observed on exposed skin. NEURO: Alert and oriented 3. No significant sensory strength deficits. No obvious neurological deficits at this time. Limitations: no limitations Course Vital Signs 04/09/23 04/09/23 04/09/23 13:47 14:53 15:04 Temperature 98.7 F Pulse Rate 69 67 65 Respiratory 16 20 20 Rate Blood Pressure 92/45 76/49 O2 Sat by Pulse 90 L 95 95 Oximetry 04/09/23 04/09/23 04/09/23 16:00 16:39 16:49 Temperature Pulse Rate 73 67 68 Respiratory 14 Rate Blood Pressure 90/50 O2 Sat by Pulse 96 Oximetry 04/09/23 04/09/23 04/09/23 16:52 17:00 17:05 Temperature Pulse Rate 74 78 82 Respiratory 16 Rate Blood Pressure 92/47 O2 Sat by Pulse 81 L Oximetry 04/09/23 17:14 Temperature Pulse Rate Respiratory Rate Blood Pressure O2 Sat by Pulse 90 L Oximetry Medical Decision Making - Medical Decision Making Was pt. sent in by a medical professional or institution (, PA, RACETR[employer] STEWARD, urgent care, hospital, or skilled nursing...) When possible be specific @ -No Did you speak to anyone other than the patient for history (EMS, parent, family, police, friend...)? What history was obtained from this source @ -Patient's daughter provides patient's past medical history and AIDS with recent hospitalization. Did you review nursing and triage notes (agree or disagree)? Why? @ -I reviewed and agree with nursing and triage notes Were old charts reviewed (outside hosp., previous admission, EMS record, old EKG, old radiological studies, urgent care reports/EKG's, skilled nursing records)? Report findings @ -Old charts reviewed Differential Diagnosis (chest pain, altered mental status, abdominal pain women, abdominal pain men, vaginal bleeding, weakness, fever, dyspnea, syncope, headache, dizziness, GI bleed, back pain, seizure, CVA, palpatations, mental health, musculoskeletal)? @ -Differential Dyspnea: Coronary syndrome, arrhythmia, tamponade, asthma, COPD, pulmonary embolism, pneumonia, pneumothorax, pulmonary effusion, anaphylaxis, diabetic ketoacidosis, flailed chest, pulmonary contusion, diaphragmatic rupture, anemia, neuromuscular, this is not meant to be an all-inclusive list. EKG interpreted by me (3pts min.). @ -As above X-rays interpreted by me (1pt min.). @ -Chest x-ray reveals cardiomegaly with small effusions and mild congestion. CT interpreted by me (1pt min.). @ -None done U/S interpreted by me (1pt. min.). @ -None done What testing was considered but not performed or refused? (CT, X-rays, U/S, labs )? Why? @ -None What meds were considered but not given or refused? Why? @ -None Did you discuss the management of the patient with other professionals (professionals i.e. , PA, RACETRACK STEWARD, lab, RT, psych nurse, social services assistant, internal grinder, teacher, plain clothes police officer, business case analyst)? Give summary @ -I spoke with the admitting team LAUREL Matias of [facility] who accepted the admission. Was smoking cessation discussed for >3mins.? @ -No Was critical care preformed (if so, how long)? @ -Yes. 37 minutes Were there social determinants of health that impacted care today? How? (Homelessness, low income, unemployed, alcoholism, drug addiction, transportation, low edu. Level, literacy, decrease access to med. care, half-way, rehab)? @ -No Was there de-escalation of care discussed even if they declined (Discuss DNR or withdrawal of care, Hospice)? DNR status @ -No What co-morbidities impacted this encounter? (DM, HTN, Smoking, COPD, CAD, Cancer, CVA, ARF, Chemo, Hep., AIDS, mental health diagnosis, sleep apnea, morbid obesity)? @ -None Was patient admitted / discharged? Hospital course, mention meds given and route, prescriptions, significant lab abnormalities, going to OR and other pertinent info. @ -Patient clinically presents dehydrated with a COPD exacerbation. Has chronic hypotension. May be incorrectly taking her Midodrin at home as well. We will obtain Carpulmonary workup, provide 2 L fluid bolus, breathing treatment, steroids. Patient will also receive a dose of Midodrin. Patient is mildly hypotensive with systolics in the 80s. States she typically lives with systolics in the 90s or low 100s. Saturating on 2 L nasal cannula. Patient was in agreement this plan. EKG shows no signs of acute ischemia.Chest x-ray reveals pulmonary venous congestion. Patient's laboratory studies are remarkable for slight elevated pCO2 on VBG at 57. Slightly elevated BNP. Remainder of the labs within acceptable limits. Vital signs negative. On reevaluation, patient's blood pressure is improved following fluids admitted to administration, with systolics running between 90 and low 100s. Per patient's daughter, this is very typical for the patient when she comes in for COPD exacerbations. It is unknown what dose of Midodrin she is supposed to be on. Their prescriptions for both 10 mg twice a day as well as 2.5 mg daily. They think she might only been taking the 2.5 mg daily however the 10 mg twice a day has also been written over this period of time. I will administered dose of 10 mg BID. when she was discharged on 02/25/2023, Midodrin dose was 10 mg twice a day at that point. Patient was for a brief time saturating 99% on her 2 L nasal cannula and this was stopped however patient to sleep she was saturating in the mid to low 80s on nasal cannula oxygen was restarted. Wheezing is improved after multiple breathing treatments pH she'll be admitted for COPD. She'll be given IV antibiotics empirically for bronchitis including azithromycin and Rocephin endorses no obvious signs of pneumonia on chest x-ray. We'll continue with IV steroids and breathing treatments. Patient be admitted at this time to stepdown. Patient and daughter were in agreement with this plan. I spoke with the admitting team LAUREL Matias of [facility] who accepted the admission. Undiagnosed new problem with uncertain prognosis? @ -No Drug Therapy requiring intensive monitoring for toxicity (Heparin, Nitro, Insulin, Cardizem)? @ -No Were any procedures done? @ -No Diagnosis/symptom? @ -Hypoxic respiratory failure secondary to COPD exacerbation and concern for tracheobronchitis Acute, or Chronic, or Acute on Chronic? @ -Acute on chronic Uncomplicated (without systemic symptoms) or Complicated (systemic symptoms)? @ -Complicated Side effects of treatment? @ -none Exacerbation, Progression, or Severe Exacerbation] @ -no Poses a threat to life or bodily function? @ -Yes Diagnosis/symptom? @ -Hypotension with questionable medication compliance on midodrine Acute, or Chronic, or Acute on Chronic? @ -Acute Uncomplicated (without systemic symptoms) or Complicated (systemic symptoms)? @ -Complicated Side effects of treatment? @ -none Exacerbation, Progression, or Severe Exacerbation] @ -no Poses a threat to life or bodily function? @ -Possibly yes - Lab Data Result diagrams: 04/09/23 14:51 04/09/23 14:51 Lab Results 04/09/23 04/09/23 04/09/23 Range/Units 14:51 14:51 14:51 WBC 7.3 (3.8-10.6) k/uL RBC 4.18 (3.80-5.40) m/uL Hgb 12.3 (11.4-16.0) gm/dL Hct 38.7 (34.0-46.0) % MCV 92.6 (80.0-100.0) fL MCH 29.5 (25.0-35.0) pg MCHC 31.8 (31.0-37.0) g/dL RDW 16.0 H (11.5-15.5) % Plt Count 215 (150-450) k/uL MPV 7.4 Neutrophils % 64 % Lymphocytes % 24 % Monocytes % 6 % Eosinophils % 3 % Basophils % 1 % Neutrophils # 4.7 (1.3-7.7) k/uL Lymphocytes # 1.7 (1.0-4.8) k/uL Monocytes # 0.5 (0-1.0) k/uL Eosinophils # 0.2 (0-0.7) k/uL Basophils # 0.1 (0-0.2) k/uL Hypochromasia Slight Anisocytosis Slight PT 10.1 (10.0-12.5) sec INR 0.9 (<1.2) APTT 24.2 (22.0-30.0) sec VBG pH (7.31-7.41) VBG pCO2 (37-51) mmHg VBG HCO3 (24-28) mmol/L Sodium 134 L (137-145) mmol/L Potassium 4.5 (3.5-5.1) mmol/L Chloride 103 (98-107) mmol/L Carbon Dioxide 27 (22-30) mmol/L Anion Gap 4 mmol/L BUN 22 H (7-17) mg/dL Creatinine 0.80 (0.52-1.04) mg/dL Est GFR (CKD-EPI)AfAm >90 (>60 ml/min/1.73 sqM) Est GFR (CKD-EPI)NonAf 79 (>60 ml/min/1.73 sqM) Glucose 80 (74-99) mg/dL Plasma Lactic Acid Stepan (0.7-2.0) mmol/L Calcium 8.3 L (8.4-10.2) mg/dL Magnesium 2.0 (1.6-2.3) mg/dL Total Bilirubin 0.3 (0.2-1.3) mg/dL AST 17 (14-36) U/L ALT 7 (4-34) U/L Alkaline Phosphatase 99 (38-126) U/L Troponin I (0.000-0.034) ng/mL NT-Pro-B Natriuret Pep 1100 pg/mL Total Protein 6.1 L (6.3-8.2) g/dL Albumin 3.5 (3.5-5.0) g/dL TSH <0.015 L (0.465-4.680) mIU/L Influenza Type A (PCR) (Not Detectd) Influenza Type B (PCR) (Not Detectd) RSV (PCR) (Not Detectd) SARS-CoV-2 (PCR) (Not Detectd) 04/09/23 04/09/23 04/09/23 Range/Units 14:51 14:51 14:51 WBC (3.8-10.6) k/uL RBC (3.80-5.40) m/uL Hgb (11.4-16.0) gm/dL Hct (34.0-46.0) % MCV (80.0-100.0) fL MCH (25.0-35.0) pg MCHC (31.0-37.0) g/dL RDW (11.5-15.5) % Plt Count (150-450) k/uL MPV Neutrophils % % Lymphocytes % % Monocytes % % Eosinophils % % Basophils % % Neutrophils # (1.3-7.7) k/uL Lymphocytes # (1.0-4.8) k/uL Monocytes # (0-1.0) k/uL Eosinophils # (0-0.7) k/uL Basophils # (0-0.2) k/uL Hypochromasia Anisocytosis PT (10.0-12.5) sec INR (<1.2) APTT (22.0-30.0) sec VBG pH (7.31-7.41) VBG pCO2 (37-51) mmHg VBG HCO3 (24-28) mmol/L Sodium (137-145) mmol/L Potassium (3.5-5.1) mmol/L Chloride (98-107) mmol/L Carbon Dioxide (22-30) mmol/L Anion Gap mmol/L BUN (7-17) mg/dL Creatinine (0.52-1.04) mg/dL Est GFR (CKD-EPI)AfAm (>60 ml/min/1.73 sqM) Est GFR (CKD-EPI)NonAf (>60 ml/min/1.73 sqM) Glucose (74-99) mg/dL Plasma Lactic Acid Stepan 0.8 (0.7-2.0) mmol/L Calcium (8.4-10.2) mg/dL Magnesium (1.6-2.3) mg/dL Total Bilirubin (0.2-1.3) mg/dL AST (14-36) U/L ALT (4-34) U/L Alkaline Phosphatase (38-126) U/L Troponin I <0.012 (0.000-0.034) ng/mL NT-Pro-B Natriuret Pep pg/mL Total Protein (6.3-8.2) g/dL Albumin (3.5-5.0) g/dL TSH (0.465-4.680) mIU/L Influenza Type A (PCR) Not Detected (Not Detectd) Influenza Type B (PCR) Not Detected (Not Detectd) RSV (PCR) Not Detected (Not Detectd) SARS-CoV-2 (PCR) Not Detected (Not Detectd) 04/09/23 Range/Units 16:07 WBC (3.8-10.6) k/uL RBC (3.80-5.40) m/uL Hgb (11.4-16.0) gm/dL Hct (34.0-46.0) % MCV (80.0-100.0) fL MCH (25.0-35.0) pg MCHC (31.0-37.0) g/dL RDW (11.5-15.5) % Plt Count (150-450) k/uL MPV Neutrophils % % Lymphocytes % % Monocytes % % Eosinophils % % Basophils % % Neutrophils # (1.3-7.7) k/uL Lymphocytes # (1.0-4.8) k/uL Monocytes # (0-1.0) k/uL Eosinophils # (0-0.7) k/uL Basophils # (0-0.2) k/uL Hypochromasia Anisocytosis PT (10.0-12.5) sec INR (<1.2) APTT (22.0-30.0) sec VBG pH 7.25 L (7.31-7.41) VBG pCO2 57 H (37-51) mmHg VBG HCO3 25 (24-28) mmol/L Sodium (137-145) mmol/L Potassium (3.5-5.1) mmol/L Chloride (98-107) mmol/L Carbon Dioxide (22-30) mmol/L Anion Gap mmol/L BUN (7-17) mg/dL Creatinine (0.52-1.04) mg/dL Est GFR (CKD-EPI)AfAm (>60 ml/min/1.73 sqM) Est GFR (CKD-EPI)NonAf (>60 ml/min/1.73 sqM) Glucose (74-99) mg/dL Plasma Lactic Acid Stepan (0.7-2.0) mmol/L Calcium (8.4-10.2) mg/dL Magnesium (1.6-2.3) mg/dL Total Bilirubin (0.2-1.3) mg/dL AST (14-36) U/L ALT (4-34) U/L Alkaline Phosphatase (38-126) U/L Troponin I (0.000-0.034) ng/mL NT-Pro-B Natriuret Pep pg/mL Total Protein (6.3-8.2) g/dL Albumin (3.5-5.0) g/dL TSH (0.465-4.680) mIU/L Influenza Type A (PCR) (Not Detectd) Influenza Type B (PCR) (Not Detectd) RSV (PCR) (Not Detectd) SARS-CoV-2 (PCR) (Not Detectd) - EKG Data -: EKG Interpreted by Me EKG Comments: 12-lead Electrocardiogram Interpretation Note EKG was reviewed and interpreted by myself. 12-lead ECG performed at 1404 is interpreted by me as revealing normal sinus rhythm at a rate of 82 beats per minute. [place] is normal. GA interval is 150 ms, QRS duration is 112 ms, QTc is 1429 ms.. There were no ST or T wave abnormalities to suggest myocardial ischemia or injury. R wave progression across the precordium was satisfactory. By my interpretation this EKG is non-diagnostic for acute ischemia. Critical Care Time Critical Care Time: Yes Total Critical Care Time: 37 Disposition Clinical Impression: Acute hypoxic respiratory failure, COPD (chronic obstructive pulmonary disease), Chronic hypotension, Tracheobronchitis Disposition: ADMITTED IP TO THIS HOSP Condition: Stable Referrals: Jose F Mcwilliams MD [Primary Care Provider] - 1-2 days Time of Disposition: 17:15
[2023-04-09 15:42] LABS: ALT 7 U/L (4-34); AST 17 U/L (14-36); African American GFR (CKD) >90 (>60 ml/min/1.73 sqM); Albumin 3.5 g/dL (3.5-5.0); Alkaline Phosphatase 99 U/L (38-126); Anion Gap 4 mmol/L; Blood Urea Nitrogen 22 mg/dL (7-17); Calcium 8.3 mg/dL (8.4-10.2); Carbon Dioxide 27 mmol/L (22-30); Chloride 103 mmol/L (98-107); Glucose 80 mg/dL (74-99); Non-African American GFR(CKD) 79 (>60 ml/min/1.73 sqM); Potassium 4.5 mmol/L (3.5-5.1); Sodium 134 mmol/L (137-145); Total Bilirubin 0.3 mg/dL (0.2-1.3); Total Protein 6.1 g/dL (6.3-8.2)
[2023-04-09 15:47] LABS: Anisocytosis Slight; Basophils # (A) 0.1 k/uL (0-0.2); Basophils % (A) 1 %; Eosinophils # (A) 0.2 k/uL (0-0.7); Eosinophils % (A) 3 %; HCT 38.7 % (34.0-46.0); HGB 12.3 gm/dL (11.4-16.0); Hypochromasia Slight; Lymphocytes # (A) 1.7 k/uL (1.0-4.8); Lymphocytes % (A) 24 %; MCH 29.5 pg (25.0-35.0); MCHC 31.8 g/dL (31.0-37.0); MCV 92.6 fL (80.0-100.0); Mean Platelet Volume 7.4; Monocytes # (A) 0.5 k/uL (0-1.0); Monocytes % (A) 6 %; Neutrophils # (A) 4.7 k/uL (1.3-7.7); Neutrophils % (A) 64 %; Platelet Count 215 k/uL (150-450); RBC 4.18 m/uL (3.80-5.40); WBC 7.3 k/uL (3.8-10.6)
[2023-04-09 15:49] LABS: NT-Pro-B-Type Natriuretic Pept 1100 pg/mL
[2023-04-09 16:18] LABS: VBG PH 7.25 (7.31-7.41)
[2023-04-09] MEDS: IPRATROPIUM-ALBUTEROL 3 ML NEB INHALATION STA ×2 (16:38→16:51)
--- NOTE | 2023-04-09 16:41 | XR ---
There is EXAMINATION TYPE: XR chest 2V DATE OF EXAM: 04/09/2023 COMPARISON: 02/23/2023 HISTORY: Shortness of breath TECHNIQUE: Frontal and lateral views of the chest are obtained. FINDINGS: Scattered senescent parenchymal changes noted. Hyperinflation compatible with COPD. No evidence for infiltrate. No evidence for atelectasis. There is cardiomegaly with pulmonary venous congestion and small effusions. Mediastinal structures are stable and grossly unremarkable. No evidence for hilar prominence. Degenerative changes dorsal spine. IMPRESSION: 1. There is cardiomegaly with pulmonary venous congestion and small effusions.
[2023-04-09] MEDS ORDERED: NALOXONE 0.4 MG/ML 1 ML VIAL IV PRN (17:27)
[2023-04-09] MEDS: AZITHROMYCIN 500 MG in SODIUM CHLORIDE 0.9% 250 ML IVPB STA (18:35)
[2023-04-09] MEDS: DOXEPIN 10 MG CAP PO SCH (20:36)
[2023-04-09] MEDS: ATORVASTATIN 40 MG TAB PO SCH (20:36)
[2023-04-09] MEDS: levETIRAcetam 500 MG TAB PO SCH (20:37)
[2023-04-09 22:00] LABS: Appearance,Urine Clear (Clear); Bilirubin,Urine Negative (Negative); Blood,Urine Negative (Negative); Color,Urine Colorless; Glucose,Urine (UA) Negative (Negative); Ketones,Urine Negative (Negative); Leukocyte Esterase,Urine Negative (Negative); Nitrite,Urine Negative (Negative); Protein,Urine Negative (Negative); Specific Gravity,Urine 1.007 (1.001-1.035); Urobilinogen,Urine <2.0 mg/dL (<2.0)
[2023-04-09] MEDS: methylPREDNISolone SOD SUCCI 40 MG/ML 1 ML VIAL IV SCH (23:53)
[2023-04-10 09:11] LABS: Blood Urea Nitrogen 16.8 mg/dL (9.0-27.0); Carbon Dioxide 23.6 mmol/L (21.6-31.8); Chloride 104 mmol/L (96-109); Glucose 123 mg/dL (70-110); Potassium 5.5 mmol/L (3.5-5.5); Sodium 139 mmol/L (135-145)
[2023-04-10] MEDS: Buprenorphine Hcl [Subutex] 8 MG Tab.Subl SUBLINGUAL SCH (09:20)
[2023-04-10] MEDS: MIDODRINE 5 MG TAB PO SCH (09:21)
[2023-04-10] MEDS: GABAPENTIN 400 MG CAP PO SCH (09:38)
[2023-04-10] MEDS: ASPIRIN 81 MG PO SCH (09:38)
[2023-04-10] MEDS: ESCITALOPRAM 20 MG TAB PO SCH (09:38)
[2023-04-10] MEDS: CLOPIDOGREL 75 MG TAB PO SCH (09:38)
[2023-04-10] MEDS: guaiFENesin 600 MG TABLET.ER PO SCH (09:38)
[2023-04-10] MEDS: LEVOTHYROXINE 100 MCG TAB PO SCH (09:38)
[2023-04-10 09:54] LABS: Basophils # (A) 0.01 X 10*3/uL (0.00-0.10); Basophils % (A) 0.1 %; Eosinophils # (A) 0 X 10*3/uL (0.04-0.35); Eosinophils % (A) 0 %; HCT 42.6 % (37.2-46.3); HGB 12.9 g/dL (12.0-15.0); Lymphocytes # (A) 0.69 X 10*3/uL (0.90-5.00); Lymphocytes % (A) 8.8 %; MCH 28.9 pg (27.0-32.0); MCHC 30.3 g/dL (32.0-37.0); MCV 95.5 FL (80.0-97.0); Mean Platelet Volume 9.4 FL (9.5-12.2); Monocytes % (A) 1.3 %; NRBC Per 100 WBC 0 X 10*3/uL (0.00-0.01); Neutrophils # (A) 7.04 X 10*3/uL (1.80-7.70); Neutrophils % (A) 89.4 %; Platelet Count 234 X 10*3/uL (140-440); RBC 4.46 X 10*6/uL (4.10-5.20); RDW 15.9 % (11.5-14.5); WBC 7.87 X 10*3/uL (4.50-10.00)
[2023-04-10] MEDS: AZITHROMYCIN 500 MG TAB PO SCH (10:55)
--- NOTE | 2023-04-10 12:50 | P.HPIM ---
History of Present Illness H&P Date: 04/10/23 History of present illness; patient is 62-year-old lady with past medical signif icant for COPD, hypothyroidism, who presented to the hospital for worsening shortness of breath. Patient stated that for the last few days she has been noticing that she has been getting more short of breath. Patient is complaint of productive cough. States she gets short of breath on minimal exertion. Complaining of conversational dyspnea. Denies any chest pain. There was no complain of orthopnea or PND. No complain of swelling of feet. Patient also complaining of lightheadedness, states she takes midodrine at home for hypotension. Denies any loss of consciousness. Denies any nausea, vomiting abdominal pain. Because of the symptoms, patient came to the ER Initial lab work done in the ER showed showed WBC 7.3, hemoglobin 12.3, platelet count 15, sodium 134, potassium 4.5, BUN 22, creatinine 0.80 magnesium 2, UA negative for infection Influenza A not detected Influenza B not detected RSV not detected COVID-19 not detected EKG done in the ER showed heart rate of 82 , no ST segment elevation or depression seen, no T-wave inversions seen. Chest x-ray done in the ER showed cardiomegaly with pulmonary venous congestion and small effusion Patient admitted to internal medicine service REVIEW OF SYSTEMS: CONSTITUTIONAL: No fever, no malaise, no fatigue. HEENT: No recent visual problems or hearing problems. Denied any sore throat. CARDIOVASCULAR: As mentioned above. PULMONARY: As mentioned above GASTROINTESTINAL: No diarrhea, no nausea, no vomiting, no abdominal pain. NEUROLOGICAL: No headaches, no weakness, no numbness. HEMATOLOGICAL: Denies any bleeding or petechiae. GENITOURINARY: Denies any burning micturition, frequency, or urgency. MUSCULOSKELETAL/RHEUMATOLOGICAL: Denies any joint pain, swelling, or any muscle pain. ENDOCRINE: Denies any polyuria or polydipsia. The rest of the 14-point review of systems is negative. PHYSICAL EXAMINATION: GENERAL: The patient is alert and oriented x3, not in any acute distress. Well developed, well nourished. HEENT: Pupils are round and equally reacting to light. EOMI. No scleral icterus. No conjunctival pallor. Normocephalic, atraumatic. No pharyngeal erythema. No thyromegaly. CARDIOVASCULAR: S1 and S2 present. No murmurs, rubs, or gallops. PULMONARY: Chest is clear to auscultation, no wheezing or crackles. ABDOMEN: Soft, nontender, nondistended, normoactive bowel sounds. No palpable organomegaly. MUSCULOSKELETAL: No joint swelling or deformity. EXTREMITIES: No cyanosis, clubbing, or pedal edema. NEUROLOGICAL: Gross neurological examination did not reveal any focal deficits. SKIN: No rashes. Assessment and plan Acute COPD exacerbation Acute hypoxic respiratory failure Hypothyroidism Hypotension Monitor vital signs Monitor CBC Monitor CMP Continue telemetry monitoring Ordered troponins Order proBNP Continue IV steroids Ordered mucinex Ordered IV Rocephin and azithromycin Aggressive bronchopulmonary hygiene Continue breathing treatments Resume home meds Consult pulmonology Consult cardiology Labs and medication were reviewed.. Continue same treatment. Continue with symptomatic treatment. Resume home medication. Monitor labs and vitals. DVT and GI prophylaxis. Further recommendations as per clinical course of the patient Dictation was produced using [employer] dictation software. please excuse any grammatical, word or spelling errors. Past Medical History Past Medical History: Asthma, Coronary Artery Disease (CAD), Chest Pain / Angina, COPD, GERD/Reflux, Hyperlipidemia, Hypertension, Myocardial Infarction ([place]), Respiratory Disorder, Seizure Disorder, Thyroid Disorder, Vascular Disorder Additional Past Medical History / Comment(s): PRN oxygen use, 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 carotid blockage, PAD, vertigo at times. Last Myocardial Infarction Date:: 06/2022 History of Any Multi-Drug Resistant Organisms: None Reported Past Surgical History: Heart Catheterization, Heart Catheterization With Stent, Hysterectomy, Joint Replacement, Orthopedic Surgery Additional Past Surgical History / Comment(s): RT ROTATOR CUFF REPAIR, R total knee, CYSTS REMOVED FROM UNDER ARMS AND HANDS, arch studies, L caratid endartectomy, 4 cardiac stents, several peripheral stents, 07/18/18 left subclavian stent, arch studies. Past Anesthesia/Blood Transfusion Reactions: No Reported Reaction Additional Past Anesthesia/Blood Transfusion Reaction / Comment(s): Pt states that she is unable to go under general anesthesia per her presales consultant due to low functioning lungs. Pt has never received blood. Date of Last Stent Placement:: Nov 2017 Past Psychological History: Anxiety, Depression Additional Psychological History / Comment(s): Pt resides with her boyfriend and puppy. Smoking Status: Current every day smoker Past Alcohol Use History: None Reported Additional Past Alcohol Use History / Comment(s): SMOKES 3-4 cig/day currently. Started smoking at age 11 Past Drug Use History: Marijuana Additional Drug Use History / Comment(s): edibles occasionally, refrain for 24 hours prior - Past Family History Mother Family Medical History: Cancer Sister(s) Family Medical History: Cancer Medications and Allergies Home Medications Medication Instructions Recorded Confirmed Type Escitalopram [Lexapro] 40 mg PO DAILY 11/28/17 04/09/23 History Levothyroxine Sodium 200 mcg PO DAILY 08/20/20 04/09/23 History Nitroglycerin Sl Tabs [Nitrostat] 0.4 mg SL Q5M PRN 08/20/20 04/09/23 History Doxepin [SINEquan] 10 mg PO HS 02/25/22 04/09/23 History Atorvastatin [Lipitor] 40 mg PO HS #30 tab 06/21/22 04/09/23 Rx Clopidogrel [Plavix] 75 mg PO DAILY #90 tablet 10/28/22 04/09/23 Rx Albuterol Sulfate [Albuterol 1 - 2 puff PO RT-Q6H PRN 02/03/23 04/09/23 History Sulfate Hfa] cloNIDine HCL [Catapres] 0.2 mg PO BID 02/03/23 04/09/23 History levETIRAcetam [Keppra] 1,500 mg PO BID 02/03/23 04/09/23 History Aspirin 81 mg PO DAILY tab 02/25/23 04/09/23 Rx Albuterol Nebulized [Ventolin 2.5 mg INHALATION RT-QID PRN 04/09/23 04/09/23 History Nebulized] Gabapentin 800 mg PO TID 04/09/23 04/09/23 History Midodrine HCl [ProAmantine] 2.5 mg PO DAILY 04/09/23 04/09/23 History buprenorphine HCL [Subutex] 8 mg SL DAILY 04/09/23 04/09/23 History Allergies Allergy/AdvReac Type Severity Reaction Status Date / Time No Known Allergies Allergy Verified 02/23/23 13:28 Physical Exam Vitals: Vital Signs Temp Pulse Pulse Resp BP BP BP 04/10/23 07:58 04/10/23 02:28 98.7 F 69 18 113/66 04/09/23 22:05 97.5 F L 90 21 92/58 04/09/23 20:49 98.8 F 93 18 79/58 04/09/23 18:32 89 16 109/54 04/09/23 17:14 04/09/23 17:05 82 16 92/47 04/09/23 17:00 78 04/09/23 16:52 74 04/09/23 16:49 68 04/09/23 16:39 67 04/09/23 16:00 73 14 90/50 04/09/23 15:04 65 20 76/49 04/09/23 14:53 67 20 92/45 04/09/23 13:47 98.7 F 69 16 Pulse Ox 04/10/23 07:58 94 L 04/10/23 02:28 96 04/09/23 22:05 97 04/09/23 20:49 94 L 04/09/23 18:32 89 L 04/09/23 17:14 90 L 04/09/23 17:05 81 L 04/09/23 17:00 04/09/23 16:52 04/09/23 16:49 04/09/23 16:39 04/09/23 16:00 96 04/09/23 15:04 95 04/09/23 14:53 95 04/09/23 13:47 90 L Intake and Output 04/09/23 04/10/23 04/10/23 22:59 06:59 14:59 Output Total 225 Balance -225 Output: Urine 225 Other: Voiding Method External Catheter Weight 68.946 kg Results CBC & Chem 7: 04/09/23 14:51 04/09/23 14:51 Labs: Abnormal Lab Results - Last 24 Hours (Table) 04/09/23 04/09/23 04/09/23 Range/Units 14:51 14:51 16:07 RDW 16.0 H (11.5-15.5) % VBG pH 7.25 L (7.31-7.41) VBG pCO2 57 H (37-51) mmHg Sodium 134 L (137-145) mmol/L BUN 22 H (7-17) mg/dL Calcium 8.3 L (8.4-10.2) mg/dL Total Protein 6.1 L (6.3-8.2) g/dL TSH <0.015 L (0.465-4.680) mIU/L Microbiology - Last 24 Hours (Table) 04/09/23 20:55 Gram Stain - Preliminary Sputum Thrombosis Risk Factor Assmnt - Choose All That Apply Each Factor Represents 1 point: Obesity (BMI >25) Each Risk Factor Represents 2 Points: Age 61-74 years Thrombosis Risk Factor Assessment Total Risk Factor Score: 3 Thrombosis Risk Factor Assessment Level: Moderate Risk
--- NOTE | 2023-04-10 14:15 | P.CNPUL ---
History of Present Illness Consult date: 04/10/23 Reason for consult: dyspnea, COPD History of present illness: Patient is a 62-year-old white female past medical history significant for severe oxygen dependent COPD, chronic ongoing tobacco dependence, hyperlipidemia, coronary artery disease with previous coronary stents, carotid artery stenosis status post left carotid stenting, hypothyroidism, seizure disorder. Patient just recently had a hospital admission for similar symptoms earlier in January and February 2023 . She did require a brief ICU stay, and was on the BiPAP for hypercapnic respiratory failure. The patient is coming in to the hospital or increased cough and shortness of breath and congestion. She is smoking around 2-3 cigarettes a day on a daily basis and she states that she cut down her smoking since her last hospitalization. No chest pain. No pleurisy. No hemoptysis. No major swelling lower extremities. She was also denying any nausea or vomiting or abdominal pain. I reviewed the chest x-ray from admission and shows no acute abnormalities. The viral panel has been negative. EKG is showing a sinus rhythm without any significant tachycardia or acute EKG changes. UA has been negative. The white echoes at 7.3 with hemoglobin 12.3 and a platelet count of 234. BUN is at 60 with a creatinine of 0.8. Sodium levels of 139. Troponins are negative. ProBNP level is 2330. The patient did not require any BiPAP therapy during this current admission. She is on bronchodilators with DuoNeb up chest pH has been using 20 units on outpatient basis. She was also placed on IV Solu-Medrol 40 mg every 8 hours. The echo of the heart from 04/13/2021 showed a normal ejection fraction. No other significant abnormalities other than noted. Mostly systolic evaluation from 02/25/2020 was also within normal limits. The coronary angiogram from 09/20/2022 showed patent stent of LAD. Mild to moderate nonobstructive disease involving the RCA. Normal filling pressures. Review of Systems Constitutional: Reports fatigue, Reports weakness Eyes: denies as per HPI, denies blurred vision, denies bulging eye, denies decreased vision, denies diplopia, denies discharge, denies dry eye, denies irritation, denies itching, denies pain, denies photophobia, denies loss of peripheral vision, denies loss of vision, denies tunnel vision/blind spots Ears: deny: decreased hearing, ear discharge, earache, tinnitus Ears, nose, mouth and throat: Reports as per HPI Breasts: absent: as per HPI, change in shape, gynecomastia, masses, nipple discharge, pain, skin changes, swelling Cardiovascular: Reports decreased exercise tolerance, Reports dyspnea on exertion, Reports shortness of breath Respiratory: Reports cough, Reports dyspnea, Reports home oxygen, Reports wheezing Gastrointestinal: Reports as per HPI Genitourinary: Reports as per HPI Menstruation: Reports as per HPI Musculoskeletal: Reports as per HPI Musculoskeletal: absent: ankle pain, ankle stiffness, ankle swelling Integumentary: Reports as per HPI Neurological: Reports as per HPI Psychiatric: Reports as per HPI, Reports confusion Endocrine: Reports as per HPI Hematologic/Lymphatic: Reports as per HPI Allergic/Immunologic: Reports as per HPI Past Medical History Past Medical History: Asthma, Coronary Artery Disease (CAD), Chest Pain / Angina, COPD, GERD/Reflux, Hyperlipidemia, Hypertension, Myocardial Infarction ([place]), Respiratory Disorder, Seizure Disorder, Thyroid Disorder, Vascular Disorder Additional Past Medical History / Comment(s): PRN oxygen use, 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 carotid blockage, PAD, vertigo at times. Last Myocardial Infarction Date:: 06/2022 History of Any Multi-Drug Resistant Organisms: None Reported Past Surgical History: Heart Catheterization, Heart Catheterization With Stent, Hysterectomy, Joint Replacement, Orthopedic Surgery Additional Past Surgical History / Comment(s): RT ROTATOR CUFF REPAIR, R total knee, CYSTS REMOVED FROM UNDER ARMS AND HANDS, arch studies, L caratid endartectomy, 4 cardiac stents, several peripheral stents, 07/18/18 left subclavian stent, arch studies. Past Anesthesia/Blood Transfusion Reactions: No Reported Reaction Additional Past Anesthesia/Blood Transfusion Reaction / Comment(s): Pt states that she is unable to go under general anesthesia per her lead custodian due to low functioning lungs. Pt has never received blood. Date of Last Stent Placement:: Nov 2017 Past Psychological History: Anxiety, Depression Additional Psychological History / Comment(s): Pt resides with her boyfriend and puppy. Smoking Status: Current every day smoker Past Alcohol Use History: None Reported Additional Past Alcohol Use History / Comment(s): SMOKES 3-4 cig/day currently. Started smoking at age 11 Past Drug Use History: Marijuana Additional Drug Use History / Comment(s): edibles occasionally, refrain for 24 hours prior - Past Family History Mother Family Medical History: Cancer Sister(s) Family Medical History: Cancer Medications and Allergies Home Medications Medication Instructions Recorded Confirmed Type Escitalopram [Lexapro] 40 mg PO DAILY 11/28/17 04/09/23 History Levothyroxine Sodium 200 mcg PO DAILY 08/20/20 04/09/23 History Nitroglycerin Sl Tabs [Nitrostat] 0.4 mg SL Q5M PRN 08/20/20 04/09/23 History Doxepin [SINEquan] 10 mg PO HS 02/25/22 04/09/23 History Atorvastatin [Lipitor] 40 mg PO HS #30 tab 06/21/22 04/09/23 Rx Clopidogrel [Plavix] 75 mg PO DAILY #90 tablet 10/28/22 04/09/23 Rx Albuterol Sulfate [Albuterol 1 - 2 puff PO RT-Q6H PRN 02/03/23 04/09/23 History Sulfate Hfa] cloNIDine HCL [Catapres] 0.2 mg PO BID 02/03/23 04/09/23 History levETIRAcetam [Keppra] 1,500 mg PO BID 02/03/23 04/09/23 History Aspirin 81 mg PO DAILY tab 02/25/23 04/09/23 Rx Albuterol Nebulized [Ventolin 2.5 mg INHALATION RT-QID PRN 04/09/23 04/09/23 History Nebulized] Gabapentin 800 mg PO TID 04/09/23 04/09/23 History Midodrine HCl [ProAmantine] 2.5 mg PO DAILY 04/09/23 04/09/23 History buprenorphine HCL [Subutex] 8 mg SL DAILY 04/09/23 04/09/23 History Allergies Allergy/AdvReac Type Severity Reaction Status Date / Time No Known Allergies Allergy Verified 02/23/23 13:28 Physical Exam Vitals: Vital Signs Temp Pulse Pulse Resp BP BP BP 04/10/23 07:58 04/10/23 02:28 98.7 F 69 18 113/66 04/09/23 22:05 97.5 F L 90 21 92/58 04/09/23 20:49 98.8 F 93 18 79/58 04/09/23 18:32 89 16 109/54 04/09/23 17:14 04/09/23 17:05 82 16 92/47 04/09/23 17:00 78 04/09/23 16:52 74 04/09/23 16:49 68 04/09/23 16:39 67 04/09/23 16:00 73 14 90/50 04/09/23 15:04 65 20 76/49 04/09/23 14:53 67 20 92/45 04/09/23 13:47 98.7 F 69 16 Pulse Ox 04/10/23 07:58 94 L 04/10/23 02:28 96 04/09/23 22:05 97 04/09/23 20:49 94 L 04/09/23 18:32 89 L 04/09/23 17:14 90 L 04/09/23 17:05 81 L 04/09/23 17:00 04/09/23 16:52 04/09/23 16:49 04/09/23 16:39 04/09/23 16:00 96 04/09/23 15:04 95 04/09/23 14:53 95 04/09/23 13:47 90 L Intake and Output 04/09/23 04/10/23 04/10/23 22:59 06:59 14:59 Output Total 225 Balance -225 Output: Urine 225 Other: Voiding Method External Catheter External Catheter Weight 68.946 kg GENERAL EXAM: Obtunded 62-year-old white female, withdrawal to painful stimuli. Patient was taken off the BiPAP and the patient is currently on 2 L O2 nasal cannula HEAD: Normocephalic and atraumatic EYES: Normal reaction of pupils, equal size. NOSE: Clear with pink turbinates. THROAT: No erythema or exudates. NECK: No masses, no JVD. CHEST: No chest wall deformity. LUNGS: Equal air entry with expiratory wheezes heard throughout . No accessory muscle use. CVS: S1 and S2 normal with soft systolic murmur, regular rhythm. No other extra heart sounds ABDOMEN: No hepatosplenomegaly, active bowel sounds, no guarding or rigidity. SPINE: No scoliosis or deformity SKIN: No rashes CENTRAL NERVOUS SYSTEM: No focal deficits, withdrawals to pain in all 4 extremities EXTREMITIES: There is no peripheral edema, clubbing, or cyanosis. Peripheral pulses are intact. Results - Laboratory Findings CBC and BMP: 04/10/23 06:23 04/10/23 06:23 PT/INR, D-dimer PT 10.1 sec (10.0-12.5) 04/09/23 14:51 INR 0.9 (<1.2) 04/09/23 14:51 Abnormal lab findings: Abnormal Labs 04/09/23 04/09/23 04/09/23 14:51 14:51 16:07 MCHC RDW 16.0 H MPV Lymphocytes # Monocytes # Eosinophils # VBG pH 7.25 L VBG pCO2 57 H Sodium 134 L BUN 22 H BUN/Creatinine Ratio Glucose Calcium 8.3 L Total Protein 6.1 L TSH <0.015 L 04/10/23 04/10/23 06:23 06:23 MCHC 30.3 L RDW 15.9 H MPV 9.4 L Lymphocytes # 0.69 L Monocytes # 0.10 L Eosinophils # 0 L VBG pH VBG pCO2 Sodium BUN BUN/Creatinine Ratio 21.00 H Glucose 123 H Calcium Total Protein TSH - Diagnostic Findings Chest x-ray: image reviewed Assessment and Plan Plan: Acute COPD exacerbation, chest x-ray shows no acute cardiopulmonary process or evidence of pneumonia. Negative for influenza, RSV, COVID-19.patient is improved. The patient is currently calm and comfortable on 2 L of O2 nasal cannula. Chest x-ray still showing any acute abnormalities. She remains on bronchodilators and steroids. She is known to have advanced COPD Severe COPD maintain on Trelegy Ellipta on an outpatient basis in addition to albuterol updrafts and oxygen. She is a chronic smoker Chronic hypoxic respiratory failure maternal O2 at 2 L/m nasal cannula Altered mental status, related to hypercapnic encephalopathy, improved and the mental status currently back to normal Chronic ongoing tobacco dependence Hypotension, BP is stable for now and the patient was started on midodrine Elevated troponins, flat, not consistent with ACS Hyperlipidemia Coronary artery disease, with multiple previous coronary stents, most recent cardiac catheterization from 10/17/2022 showed patent stent to LAD. No other significant abnormalities other Carotid artery stenosis, status post left carotid stenting Hypothyroidism History of seizure disorder Chronic left knee pain, receives Subutex outpatient Plan Agree on the current treatment May potentially be discharged home within next 24 hours and a prednisone burst taper monitor BP while being on midodrine all medications and resume Empiric antibiotic coverage with Zithromax
[2023-04-10] MEDS: IPRATROPIUM-ALBUTEROL 3 ML NEB INHALATION PRN (14:53)
--- NOTE | 2023-04-10 16:16 | P.CRDCN ---
History of Present Illness Consult date: 04/10/23 History of present illness: HISTORY OF PRESENTING ILLNESS 62-year-old known to Dr. Vale history of CAD, PCI to LAD, HTN, dyslipidemia, PAD, carotid status post left carotid endarterectomy, stenting of left common carotid artery, PAD with left subclavian stenting, COPD, nicotine dependence. This time patient present to the hospital because of worsening shortness of breath, increased wheezing for last 3 days along with cough. She was admitted to the hospital with a working diagnosis of COPD exacerbation and possible cardiac or pneumonia. Cardiology is consulted because of her extensive cardiac history and to rule out congestive heart failure. WBC 7, hemoglobin 12, BUN 60, creatinine 0.8, troponin 2 negative, BNP 1999. BNP last year was 1450 Home medications include clonidine 0.2 mg twice a day, aspirin 81, Plavix 75, atorvastatin 40 mg Last echo from 2021 shows a normal LV size and systolic function. 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 Chest x-ray shows mild increased interstitial marking with chronic stable changes REVIEW OF SYSTEMS 14 point review of system is negative except what is mentioned above in HPI. PHYSICAL EXAMINATION Vital signs reviewed. Head: Normocephalic. Eyes: Sclerae nonicteric. Neck: Mildly elevated jugular venous distention. Lungs: Diffuse wheezing in bilateral lung pierson. Heart: Regular rate and rhythm, S1-S2, no S3, no murmur Abdomen: Soft nontender, Extremities: No edema. Neuro: Alert, oritented, ASSESSMENT Acute on chronic hypoxic and hypercapnic respiratory failure COPD exacerbation Altered mental status due to hypercapnic encephalopathy Chronic tobacco use Hypotensive, was started on midodrine CAD status post PCI to LAD September 2022 PAD status post stenting of left subclavian and left carotid artery Dyslipidemia PLAN Continue aspirin, Plavix, atorvastatin Hypotension could be related to pulmonary hypertension and increase intrathoracic pressures. Blood pressure stable. Discontinue midodrine evaluate Obtain echocardiogram due to hypotension Evaluate for the need of better tomorrow COPD management as per pulmonary team Other comorbidities to be managed by primary team Past Medical History Past Medical History: Asthma, Coronary Artery Disease (CAD), Chest Pain / Angina, COPD, GERD/Reflux, Hyperlipidemia, Hypertension, Myocardial Infarction (RI), Respiratory Disorder, Seizure Disorder, Thyroid Disorder, Vascular Disorder Additional Past Medical History / Comment(s): PRN oxygen use, 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 carotid blockage, PAD, vertigo at times. Last Myocardial Infarction Date:: 06/2022 History of Any Multi-Drug Resistant Organisms: None Reported Past Surgical History: Heart Catheterization, Heart Catheterization With Stent, Hysterectomy, Joint Replacement, Orthopedic Surgery Additional Past Surgical History / Comment(s): RT ROTATOR CUFF REPAIR, R total knee, CYSTS REMOVED FROM UNDER ARMS AND HANDS, arch studies, L caratid endartectomy, 4 cardiac stents, several peripheral stents, 07/18/18 left subclavian stent, arch studies. 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 Pt has never received blood. Date of Last Stent Placement:: Nov 2017 Past Psychological History: Anxiety, Depression Additional Psychological History / Comment(s): Pt resides with her boyfriend and puppy. Smoking Status: Current every day smoker Past Alcohol Use History: None Reported Additional Past Alcohol Use History / Comment(s): SMOKES 3-4 cig/day currently. Started smoking at age 11 Past Drug Use History: Marijuana Additional Drug Use History / Comment(s): edibles occasionally, refrain for 24 hours prior - Past Family History Mother Family Medical History: Cancer Sister(s) Family Medical History: Cancer Medications and Allergies Home Medications Medication Instructions Recorded Confirmed Type Escitalopram [Lexapro] 40 mg PO DAILY 11/28/17 04/09/23 History Levothyroxine Sodium 200 mcg PO DAILY 08/20/20 04/09/23 History Nitroglycerin Sl Tabs [Nitrostat] 0.4 mg SL Q5M PRN 08/20/20 04/09/23 History Doxepin [SINEquan] 10 mg PO HS 02/25/22 04/09/23 History Atorvastatin [Lipitor] 40 mg PO HS #30 tab 06/21/22 04/09/23 Rx Clopidogrel [Plavix] 75 mg PO DAILY #90 tablet 10/28/22 04/09/23 Rx Albuterol Sulfate [Albuterol 1 - 2 puff PO RT-Q6H PRN 02/03/23 04/09/23 History Sulfate Hfa] cloNIDine HCL [Catapres] 0.2 mg PO BID 02/03/23 04/09/23 History levETIRAcetam [Keppra] 1,500 mg PO BID 02/03/23 04/09/23 History Aspirin 81 mg PO DAILY tab 02/25/23 04/09/23 Rx Albuterol Nebulized [Ventolin 2.5 mg INHALATION RT-QID PRN 04/09/23 04/09/23 History Nebulized] Gabapentin 800 mg PO TID 04/09/23 04/09/23 History Midodrine HCl [ProAmantine] 2.5 mg PO DAILY 04/09/23 04/09/23 History buprenorphine HCL [Subutex] 8 mg SL DAILY 04/09/23 04/09/23 History Allergies Allergy/AdvReac Type Severity Reaction Status Date / Time No Known Allergies Allergy Verified 02/23/23 13:28 Physical Exam Vitals: Vital Signs Temp Pulse Pulse Resp BP BP BP 04/10/23 15:03 96 04/10/23 14:54 97 04/10/23 13:33 98.3 F 51 L 19 110/69 04/10/23 10:33 92 04/10/23 08:17 98.3 F 116 H 20 130/74 04/10/23 07:58 04/10/23 02:28 98.7 F 69 18 113/66 04/09/23 22:05 97.5 F L 90 21 92/58 04/09/23 20:49 98.8 F 93 18 79/58 04/09/23 18:32 89 16 109/54 04/09/23 17:14 04/09/23 17:05 82 16 92/47 04/09/23 17:00 78 04/09/23 16:52 74 04/09/23 16:49 68 04/09/23 16:39 67 Pulse Ox 04/10/23 15:03 04/10/23 14:54 04/10/23 13:33 94 L 04/10/23 10:33 94 L 04/10/23 08:17 04/10/23 07:58 94 L 04/10/23 02:28 96 04/09/23 22:05 97 04/09/23 20:49 94 L 04/09/23 18:32 89 L 04/09/23 17:14 90 L 04/09/23 17:05 81 L 04/09/23 17:00 04/09/23 16:52 04/09/23 16:49 04/09/23 16:39 Intake and Output 04/10/23 04/10/23 04/10/23 06:59 14:59 22:59 Output Total 225 Balance -225 Output: Urine 225 Other: Voiding Method External Catheter Results 04/10/23 06:23 04/10/23 06:23 Cardiac Enzymes 04/10/23 04/10/23 Range/Units 09:33 11:19 Troponin I <0.012 <0.012 (0.000-0.034) ng/mL CBC 04/10/23 Range/Units 06:23 WBC 7.87 (4.50-10.00) X 10*3/uL RBC 4.46 (4.10-5.20) X 10*6/uL Hgb 12.9 (12.0-15.0) g/dL Hct 42.6 (37.2-46.3) % Plt Count 234 (140-440) X 10*3/uL Comprehensive Metabolic Panel 04/10/23 Range/Units 06:23 Sodium 139 (135-145) mmol/L Potassium 5.5 (3.5-5.5) mmol/L Chloride 104 (96-109) mmol/L Carbon Dioxide 23.6 (21.6-31.8) mmol/L BUN 16.8 (9.0-27.0) mg/dL Creatinine 0.8 (0.6-1.5) mg/dL Glucose 123 H (70-110) mg/dL Calcium 9.0 (8.7-10.3) mg/dL Current Medications Generic Name Dose Route Start Last Admin Trade Name Freq PRN Reason Stop Dose Admin Albuterol/Ipratropium 3 ml 04/09/23 16:43 04/10/23 14:53 Ipratropium-Albuterol 3 Ml Neb INHALATION 3 ml RT-Q4H PRN Administration shortness of breath Aspirin 81 mg 04/10/23 09:00 04/10/23 09:38 Aspirin 81 Mg PO 81 mg DAILY VINICIO Administration Atorvastatin Calcium 40 mg 04/09/23 21:00 04/09/23 20:36 Atorvastatin 40 Mg Tab PO 40 mg HS VINICIO Administration Azithromycin 500 mg 04/10/23 09:00 04/10/23 10:55 Azithromycin 500 Mg Tab PO 04/11/23 09:01 500 mg DAILY VINICIO Administration Protocol Benzonatate 200 mg 04/10/23 08:49 Benzonatate 100 Mg Cap PO TID PRN Cough Clopidogrel Bisulfate 75 mg 04/10/23 09:00 04/10/23 09:38 Clopidogrel 75 Mg Tab PO 75 mg DAILY VINICIO Administration Doxepin HCl 10 mg 04/09/23 21:00 04/09/23 20:36 Doxepin 10 Mg Cap PO 10 mg HS VINICIO Administration Escitalopram Oxalate 40 mg 04/10/23 09:00 04/10/23 09:38 Escitalopram 20 Mg Tab PO 40 mg DAILY VINICIO Administration Gabapentin 800 mg 04/10/23 09:00 04/10/23 09:38 Gabapentin 400 Mg Cap PO 800 mg TID VINICIO Administration Guaifenesin 600 mg 04/10/23 09:00 04/10/23 09:38 Guaifenesin 600 Mg Tablet.Er PO 600 mg Q12HR VINICIO Administration Levetiracetam 1,500 mg 04/09/23 21:00 04/10/23 09:38 Levetiracetam 500 Mg Tab PO 1,500 mg BID VINICIO Administration Levothyroxine Sodium 200 mcg 04/10/23 09:00 04/10/23 09:38 Levothyroxine 100 Mcg Tab PO 200 mcg DAILY VINICIO Administration Methylprednisolone Sodium Succinate 40 mg 04/10/23 00:00 04/10/23 08:31 Methylprednisolone Sod Succi 40 Mg/Ml 1 Ml Vial IV 40 mg Q8HR VINICIO Administration Naloxone HCl 0.2 mg 04/09/23 17:27 Naloxone 0.4 Mg/Ml 1 Ml Vial IV Q2M PRN Opioid Reversal Buprenorphine Hcl [ 8 mg 04/10/23 09:00 04/10/23 09:20 Subutex] 8 Mg Tab. SUBLINGUAL Not Given Subl DAILY VINICIO Intake and Output 04/10/23 04/10/23 04/10/23 06:59 14:59 22:59 Output Total 225 Balance -225 Output: Urine 225 Other: Voiding Method External Catheter 04/10/23 06:23 04/10/23 06:23
--- NOTE | 2023-04-11 08:30 | P.PN ---
Subjective Progress Note Date: 04/11/23 Principal diagnosis: shortness of breath This is a 62-year-old female who presented to the emergency department with complaints of difficulty breathing with concern for COPD exacerbation. She does have a past history of smoking, has quit however does still live at home with people who smoke. Chest XR on admission showed cardiomegaly with pulmonary venous congestion and small effusion. Cardiology and pulmonology are on board. Patiet remains on Zithromax and IV steroids. She is seen and evaluated sitting up in bed this morning. She is on 3 L of oxygen. Does have home oxygen as needed. Objective - Vital Signs Vital signs: Vital Signs Temp 98.6 F 04/11/23 06:59 Pulse 110 H 04/11/23 06:59 Resp 17 04/11/23 06:59 BP 121/75 04/11/23 06:59 Pulse Ox 96 04/11/23 06:59 FiO2 Intake & Output 04/10/23 04/11/23 04/11/23 18:59 06:59 18:59 Output Total 300 1850 Balance -300 -1850 Output: Urine 300 1850 Other: Voiding Method External Catheter External Catheter - Constitutional General appearance: Present: cooperative, no acute distress - EENT Eyes: Present: PERRLA - Neck Neck: Present: normal ROM. Absent: lymphadenopathy, rigidity - Respiratory Respiratory: bilateral: rhonchi, wheezing - Cardiovascular Rhythm: regular Heart sounds: normal: S1, S2 - Gastrointestinal General gastrointestinal: Present: soft. Absent: tenderness - Integumentary Integumentary: Present: normal, normal turgor - Psychiatric Psychiatric: Present: A&O x's 3, appropriate affect, intact judgment & insight - Labs CBC & Chem 7: 04/10/23 06:23 04/10/23 06:23 Labs: Abnormal Lab Results - Last 24 Hours (Table) 04/10/23 04/10/23 Range/Units 06:23 06:23 MCHC 30.3 L (32.0-37.0) g/dL RDW 15.9 H (11.5-14.5) % MPV 9.4 L (9.5-12.2) FL Lymphocytes # 0.69 L (0.90-5.00) X 10*3/uL Monocytes # 0.10 L (0.20-1.00) X 10*3/uL Eosinophils # 0 L (0.04-0.35) X 10*3/uL BUN/Creatinine Ratio 21.00 H (12.00-20.00) Ratio Glucose 123 H (70-110) mg/dL Microbiology - Last 24 Hours (Table) 04/09/23 17:35 Blood Culture - Preliminary Blood 04/09/23 17:20 Blood Culture - Preliminary Blood 04/09/23 20:55 Gram Stain - Preliminary Sputum Assessment and Plan (1) COPD exacerbation Current Visit: No Status: Acute Code(s): J44.1 - CHRONIC OBSTRUCTIVE PULMONARY DISEASE W (ACUTE) EXACERBATION SNOMED Code(s): 320040531 (2) Acute hypoxic respiratory failure Current Visit: Yes Status: Acute Code(s): J96.01 - ACUTE RESPIRATORY FAILURE WITH HYPOXIA SNOMED Code(s): 84871759 (3) Hypotension Current Visit: No Status: Acute Code(s): I95.9 - HYPOTENSION, UNSPECIFIED SNOMED Code(s): 14735664 (4) CAD (coronary artery disease) Current Visit: No Status: Acute Code(s): I25.10 - ATHSCL HEART DISEASE OF LIME CORONARY ARTERY W/O ANG PCTRS SNOMED Code(s): 38221085 (5) Hypothyroid Current Visit: No Status: Acute Code(s): E03.9 - HYPOTHYROIDISM, UNSPECIFIED SNOMED Code(s): 76603203 (6) Opiate dependence Current Visit: No Status: Acute Code(s): F11.20 - OPIOID DEPENDENCE, UNCOMPLICATED SNOMED Code(s): 91828891 Plan: Check CBC and CMP in the morning. Appreciate recommendations from cardiology and pulmonology. Anticipate discharge in the next 24-48 hours. Patient seen and evaluated by nurse practitioner, physician in agreement with plan
--- NOTE | 2023-04-11 09:25 | P.PN ---
Subjective Progress Note Date: 04/11/23 HISTORY OF PRESENTING ILLNESS 62-year-old known to Dr. Vale history of CAD, PCI to LAD, HTN, dyslipidemia, PAD, carotid status post left carotid endarterectomy, stenting of left common carotid artery, PAD with left subclavian stenting, COPD, nicotine dependence. This time patient present to the hospital because of worsening shortness of breath, increased wheezing for last 3 days along with cough. She was admitted to the hospital with a working diagnosis of COPD exacerbation and possible cardiac or pneumonia. Cardiology is consulted because of her extensive cardiac history and to rule out congestive heart failure. WBC 7, hemoglobin 12, BUN 60, creatinine 0.8, troponin 2 negative, BNP 2000. BNP last year was 1450 Home medications include clonidine 0.2 mg twice a day, aspirin 81, Plavix 75, atorvastatin 40 mg Last echo from 2021 shows a normal LV size and systolic function. 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 Chest x-ray shows mild increased interstitial marking with chronic stable changes 04/11 Patient is seen today in follow-up. She denies having any chest pain, no lightheadedness or dizziness, no palpitations. Patient continues to have wheezing. Blood pressure is 121/75 and heart rate is in the low 100s. Echocardiogram is pending PHYSICAL EXAMINATION Vital signs reviewed. Head: Normocephalic. Eyes: Sclerae nonicteric. Lungs: Diffuse wheezing in bilateral lung pierson. Heart: Regular rate and rhythm, S1-S2, no S3, no murmur Abdomen: Soft nontender, Extremities: No edema. Neuro: Alert, oritented, ASSESSMENT Acute on chronic hypoxic and hypercapnic respiratory failure COPD exacerbation Altered mental status due to hypercapnic encephalopathy Chronic tobacco use Hypotensive, was started on midodrine CAD status post PCI to LAD September 2022 PAD status post stenting of left subclavian and left carotid artery Dyslipidemia PLAN Continue aspirin, Plavix, atorvastatin Hypotension could be related to pulmonary hypertension and increase intrathoracic pressures. Blood pressure stable. Discontinue midodrine evaluate Obtain echocardiogram due to hypotension COPD management as per pulmonary team Other comorbidities to be managed by primary team Nurse practitioner note has been reviewed, I agree with documented findings and plan of care. Patient was seen and examined. Objective - Vital Signs Vital signs: Vital Signs Temp 98.6 F 04/11/23 06:59 Pulse 110 H 04/11/23 06:59 Resp 17 04/11/23 06:59 BP 121/75 04/11/23 06:59 Pulse Ox 96 04/11/23 06:59 FiO2 Intake & Output 04/10/23 04/11/23 04/11/23 18:59 06:59 18:59 Output Total 300 1850 Balance -300 -1850 Output: Urine 300 1850 Other: Voiding Method External Catheter External Catheter - Labs CBC & Chem 7: 04/10/23 06:23 04/10/23 06:23 Labs: Abnormal Lab Results - Last 24 Hours (Table) 04/10/23 04/10/23 Range/Units 06:23 06:23 MCHC 30.3 L (32.0-37.0) g/dL RDW 15.9 H (11.5-14.5) % MPV 9.4 L (9.5-12.2) FL Lymphocytes # 0.69 L (0.90-5.00) X 10*3/uL Monocytes # 0.10 L (0.20-1.00) X 10*3/uL Eosinophils # 0 L (0.04-0.35) X 10*3/uL BUN/Creatinine Ratio 21.00 H (12.00-20.00) Ratio Glucose 123 H (70-110) mg/dL Microbiology - Last 24 Hours (Table) 04/09/23 17:35 Blood Culture - Preliminary Blood 04/09/23 17:20 Blood Culture - Preliminary Blood 04/09/23 20:55 Gram Stain - Preliminary Sputum
[2023-04-11] MEDS: BENZONATATE 100 MG CAP PO PRN (10:56)
--- NOTE | 2023-04-11 12:34 | CA ---
Transthoracic Echo Report Name: Lidia Chang Age: 62 Gender: F : 1960 Exam Date: 04/11/2023 11:12 Exam Location: [facility] Ht (in): 65 Wt (lb): 152 Ordering Physician: Mateusz Alvarenga MD ([id number]) Attending/Referring Phys: Commutator Assembler Tyree Faustin RDCS Procedure CPT: Indications: RV focus views, pulmo HTN and RV function Cardiac Hx: Technical Quality: Technically difficult study Contrast 1: Definity Total Dose (mL): 2 Contrast 2: Total Dose (mL): MEASUREMENTS (Male / Female) Normal Values 2D ECHO LV Diastolic Diameter PLAX 5.2 cm 4.2 - 5.9 / 3.9 - 5.3 cm LV Systolic Diameter PLAX 2.9 cm IVS Diastolic Thickness 1.2 cm 0.6 - 1.0 / 0.6 - 0.9 cm LVPW Diastolic Thickness 1.0 cm 0.6 - 1.0 / 0.6 - 0.9 cm LV Relative Wall Thickness 0.4 RV Internal Dim ED PLAX 2.9 cm LVOT Diameter 2.0 cm Aortic Root Diameter 2.8 cm LA Systolic Diameter LX 2.4 cm 3.0 - 4.0 / 2.7 - 3.8 cm LV Diastolic Volume MOD BP 32.4 cm??? 67 - 155 / 56 - 104 cm??? LV Systolic Volume MOD BP 12.4 cm??? 22 - 58 / 19 - 49 cm??? LV Ejection Fraction MOD BP 61.6 % >= 55 % LV Cardiac Index MOD BP 1170.6 cm???/min???m??? LV Diastolic Volume MOD 4C 45.2 cm??? LV Systolic Volume MOD 4C 17.6 cm??? LV Ejection Fraction MOD 4C 61.2 % LV Cardiac Index MOD 4C 1622.6 cm???/min???m??? LV Diastolic Length 4C 6.8 cm LV Systolic Length 4C 5.7 cm LV Diastolic Volume MOD 2C 21.8 cm??? LV Systolic Volume MOD 2C 8.6 cm??? LV Ejection Fraction MOD 2C 60.7 % LV Cardiac Index MOD 2C 777.5 cm???/min???m??? LV Diastolic Length 2C 6.4 cm LV Systolic Length 2C 5.3 cm LA Volume 43.4 cm??? 18 - 58 / 22 - 52 cm??? LA Volume Index 24.3 cm???/m??? 16 - 28 cm???/m??? DOPPLER AV Peak Velocity 178.1 cm/s AV Peak Gradient 12.7 mmHg AV Mean Velocity 142.8 cm/s AV Mean Gradient 8.7 mmHg AV Velocity Time Integral 38.5 cm LVOT Peak Velocity 114.1 cm/s LVOT Peak Gradient 5.2 mmHg LVOT Velocity Time Integral 28.5 cm LVOT Stroke Volume 91.8 cm??? LVOT Stroke Volume Index 52.2 ml/m??? LVOT Cardiac Index 5385.3 cm???/min???m??? AV Area Cont Eq vti 2.4 cm??? AV Area Cont Eq pk 2.1 cm??? MV Peak Velocity 159.4 cm/s MV Peak Gradient 10.2 mmHg MV Mean Velocity 79.2 cm/s MV Mean Gradient 3.3 mmHg MV Velocity Time Integral 32.7 cm Mitral E Point Velocity 119.3 cm/s Mitral A Point Velocity 144.8 cm/s Mitral E to A Ratio 0.8 MV Deceleration Time 139.9 ms MV E' Velocity 10.0 cm/s Mitral E to MV E' Ratio 12.0 TR Peak Velocity 172.8 cm/s TR Peak Gradient 11.9 mmHg Right Ventricular Systolic Press 18.0 mmHg PV Peak Velocity 111.1 cm/s PV Peak Gradient 4.9 mmHg FINDINGS Left Ventricle Normal LV size. Mild concentric LVH. Left ventricular ejection fraction is estimated at 55-60 %. Right Ventricle Normal right ventricular size and function. Right Atrium Mild right atrial dilatation. Left Atrium Mild left atrial dilatation. LA volume index= 25ml.m2 Mitral Valve Structurally normal mitral valve. No mitral regurgitation. Aortic Valve Aortic valve not well visualized. No aortic stenosis. No aortic regurgitation. Tricuspid Valve Structurally normal tricuspid valve. Trace TR. Pulmonic Valve Pulmonic valve not well visualized. No pulmonic regurgitation. Pericardium Normal pericardium. Aorta Normal size aortic root. CONCLUSIONS Technically limited parasternal views. Normal LV systolic function Previewed by: Dr. Karthik Vale MD (Electronically Signed) Final Date: 11 April 2023 12:33
--- NOTE | 2023-04-11 14:30 | P.PN ---
Subjective Progress Note Date: 04/11/23 Patient is a 62-year-old white female past medical history significant for severe oxygen dependent COPD, chronic ongoing tobacco dependence, hyperlipidemia, coronary artery disease with previous coronary stents, carotid artery stenosis status post left carotid stenting, hypothyroidism, seizure disorder. Patient just recently had a hospital admission for similar symptoms earlier in January and February 2023 . She did require a brief ICU stay, and was on the BiPAP for hypercapnic respiratory failure. The patient is coming in to the hospital or increased cough and shortness of breath and congestion. She is smoking around 2-3 cigarettes a day on a daily basis and she states that she cut down her smoking since her last hospitalization. No chest pain. No pleurisy. No hemoptysis. No major swelling lower extremities. She was also denying any nausea or vomiting or abdominal pain. I reviewed the chest x-ray from admission and shows no acute abnormalities. The viral panel has been negative. EKG is showing a sinus rhythm without any significant tachycardia or acute EKG changes. UA has been negative. The white echoes at 7.3 with hemoglobin 12.3 and a platelet count of 234. BUN is at 60 with a creatinine of 0.8. Sodium levels of 139. Troponins are negative. ProBNP level is 2330. The patient did not require any BiPAP therapy during this current admission. She is on bronchodilators with DuoNeb up chest pH has been using 20 units on outpatient basis. She was also placed on IV Solu-Medrol 40 mg every 8 hours. The echo of the heart from 04/13/2021 showed a normal ejection fraction. No other significant abnormalities other than noted. Mostly systolic evaluation from 02/25/2020 was also within normal limits. The coronary angiogram from 09/20/2022 showed patent stent of LAD. Mild to moderate nonobstructive disease involving the RCA. Normal filling pressures. The patient is seen today 04/11/2023 in follow-up on the regular medical floor. She is currently sitting up in bed. Awake and alert in no acute distress. Doing a bit better today compared to yesterday. She is maintaining O2 saturations in the 90s on 3 L/m per nasal cannula. She is continued on her home Trelegy, DuoNeb inhalations, Solu-Medrol. Echocardiogram revealed preserved left ventricular systolic function with ejection fraction 55-60%. Blood cultures revealing no growth. Sputum culture revealing no growth. Objective - Vital Signs Vital signs: Vital Signs Temp 98.6 F 04/11/23 06:59 Pulse 103 H 04/11/23 12:42 Resp 17 04/11/23 06:59 BP 121/75 04/11/23 06:59 Pulse Ox 93 L 04/11/23 09:07 FiO2 Intake & Output 04/10/23 04/11/23 04/11/23 18:59 06:59 18:59 Output Total 300 1850 Balance -300 -1850 Output: Urine 300 1850 Other: Voiding Method External Catheter External Catheter - Exam GENERAL EXAM: Alert, active, 62-year-old female, on 3 L nasal cannula, comfortable in no apparent distress. HEAD: Normocephalic. EYES: Normal reaction of pupils, equal size. NOSE: Clear with pink turbinates. THROAT: No erythema or exudates. NECK: No masses, no JVD. CHEST: No chest wall deformity. LUNGS: Equal air entry with bilateral wheeze, diminished. CVS: S1 and S2 normal with no audible murmur, regular rhythm. ABDOMEN: No hepatosplenomegaly, normal bowel sounds, no guarding or rigidity. SPINE: No scoliosis or deformity SKIN: No rashes CENTRAL NERVOUS SYSTEM: No focal deficits, tone is normal in all 4 extremities. EXTREMITIES: There is no peripheral edema. No clubbing, no cyanosis. Peripheral pulses are intact. - Labs CBC & Chem 7: 04/10/23 06:23 04/10/23 06:23 Labs: Microbiology - Last 24 Hours (Table) 04/09/23 17:35 Blood Culture - Preliminary Blood 04/09/23 17:20 Blood Culture - Preliminary Blood Assessment and Plan Assessment: Acute COPD exacerbation, chest x-ray shows no acute cardiopulmonary process or evidence of pneumonia. Negative for influenza, RSV, COVID-19.patient is improved. The patient is currently calm and comfortable on 2 L of O2 nasal cannula. Chest x-ray still showing any acute abnormalities. She remains on bronchodilators and steroids. She is known to have advanced COPD Severe COPD maintain on Trelegy Ellipta on an outpatient basis in addition to albuterol updrafts and oxygen. She is a chronic smoker Chronic hypoxic respiratory failure maternal O2 at 2 L/m nasal cannula Altered mental status, related to hypercapnic encephalopathy, improved and the mental status currently back to normal Chronic ongoing tobacco dependence Hypotension, BP is stable for now and the patient was started on midodrine Elevated troponins, flat, not consistent with ACS Hyperlipidemia Coronary artery disease, with multiple previous coronary stents, most recent cardiac catheterization from 10/17/2022 showed patent stent to LAD. No other significant abnormalities other Carotid artery stenosis, status post left carotid stenting Hypothyroidism History of seizure disorder Chronic left knee pain, receives Subutex outpatient Plan: The patient was seen and evaluated Echocardiogram, labs and medications reviewed Continue current treatment plan Titrate the FiO2 as tolerated Not quite back to her baseline Probable discharge in the a.m. We will continue to follow I have personally seen and examined the patient, performed the documentation and the assessment and plan as written. Number of minutes spent on the visit: 10.
[2023-04-11 20:10] VITALS: RESP 20
--- NOTE | 2023-04-12 08:41 | P.DS ---
Providers Date of admission: 04/09/23 17:27 Attending physician: Jose F Mcwilliams Consults: 04/09/23 16:45 Consult Physician Routine Consulting Provider: Karlie Marques Consult Reason/Comments: copd, bronchitis Do you want consulting provider notified?: Yes 04/09/23 17:27 Consult Physician Routine Consulting Provider: [facility] Consult Reason/Comments: copd, chronic hypotension on midodrine Do you want consulting provider notified?: Yes Primary care physician: Jose F Mcwilliams - Discharge Diagnosis(es) (1) COPD exacerbation Current Visit: No Status: Acute (2) Acute hypoxic respiratory failure Current Visit: Yes Status: Acute (3) Hypotension Current Visit: No Status: Acute (4) CAD (coronary artery disease) Current Visit: No Status: Acute (5) Hypothyroid Current Visit: No Status: Acute (6) Opiate dependence Current Visit: No Status: Acute Hospital Course: This is a 62-year-old female who presented to the emergency department with complaints of difficulty breathing and concern for COPD exacerbation. She does have a past history of smoking and has quit however she does still live with people at home who smoke. Chest x-ray on admission showed cardiomegaly with pulmonary venous congestion and small effusion. Cardiology and pulmonary were consulted during stay. Patient had an echo which was normal. She does have home oxygen and wears as needed at home. During admission she was on IV steroids, will be sent home with a taper. Patient's breathing is improved and she reports she is ready to go home. Patient seen and evaluated by nurse practitioner, physician in agreement with plan. Patient Condition at Discharge: Stable Plan - Discharge Summary Discharge Rx Participant: No New Discharge Prescriptions: New predniSONE [Deltasone] 20 mg PO DIRECTED #12 tab Continue Midodrine HCl [ProAmantine] 2.5 mg PO DAILY Gabapentin 800 mg PO TID buprenorphine HCL [Subutex] 8 mg SL DAILY Albuterol Nebulized [Ventolin Nebulized] 2.5 mg INHALATION RT-QID PRN PRN Reason: Shortness Of Breath No Action Escitalopram [Lexapro] 40 mg PO DAILY Nitroglycerin Sl Tabs [Nitrostat] 0.4 mg SL Q5M PRN PRN Reason: Chest Pain Doxepin [SINEquan] 10 mg PO HS levETIRAcetam [Keppra] 1,500 mg PO BID Albuterol Sulfate [Albuterol Sulfate Hfa] 1 - 2 puff PO RT-Q6H PRN PRN Reason: Shortness Of Breath Aspirin 81 mg PO DAILY tab Levothyroxine Sodium 200 mcg PO DAILY Atorvastatin [Lipitor] 40 mg PO HS #30 tab Clopidogrel [Plavix] 75 mg PO DAILY #90 tablet cloNIDine HCL [Catapres] 0.2 mg PO BID Discharge Medication List Escitalopram [Lexapro] 40 mg PO DAILY 11/28/17 [History] Levothyroxine Sodium 200 mcg PO DAILY 08/20/20 [History] Nitroglycerin Sl Tabs [Nitrostat] 0.4 mg SL Q5M PRN 08/20/20 [History] Doxepin [SINEquan] 10 mg PO HS 02/25/22 [History] Atorvastatin [Lipitor] 40 mg PO HS #30 tab 06/21/22 [Rx] Clopidogrel [Plavix] 75 mg PO DAILY #90 tablet 10/28/22 [Rx] Albuterol Sulfate [Albuterol Sulfate Hfa] 1 - 2 puff PO RT-Q6H PRN 02/03/23 [History] cloNIDine HCL [Catapres] 0.2 mg PO BID 02/03/23 [History] levETIRAcetam [Keppra] 1,500 mg PO BID 02/03/23 [History] Aspirin 81 mg PO DAILY tab 02/25/23 [Rx] Albuterol Nebulized [Ventolin Nebulized] 2.5 mg INHALATION RT-QID PRN 04/09/23 [History] Gabapentin 800 mg PO TID 04/09/23 [History] Midodrine HCl [ProAmantine] 2.5 mg PO DAILY 04/09/23 [History] buprenorphine HCL [Subutex] 8 mg SL DAILY 04/09/23 [History] predniSONE [Deltasone] 20 mg PO DIRECTED #12 tab 04/12/23 [Rx] Follow up Appointment(s)/Referral(s): Jose F Mcwilliams MD [Primary Care Provider] - 1 Week Patient Instructions/Handouts: COPD (Chronic Obstructive Pulmonary Disease) (DC)
[2023-04-12 09:08] VITALS: BP 124/71; PULSE 108; TEMP 98.6
[2023-04-12 10:10] LABS: HCT 39.8 % (37.2-46.3); HGB 12.2 g/dL (12.0-15.0); MCH 28.4 pg (27.0-32.0); MCHC 30.7 g/dL (32.0-37.0); MCV 92.6 FL (80.0-97.0); Mean Platelet Volume 8.8 FL (9.5-12.2); NRBC Per 100 WBC 0 X 10*3/uL (0.00-0.01); Platelet Count 254 X 10*3/uL (140-440); WBC 11.64 X 10*3/uL (4.50-10.00)
[2023-04-12 10:58] LABS: ALT 6 U/L (8-44); AST 12 U/L (13-35); Albumin 3.9 g/dL (3.8-4.9); Albumin/Globulin Ratio 1.62 Ratio (1.60-3.17); Alkaline Phosphatase 106 U/L (41-126); BUN/Creat Ratio 19.12 Ratio (12.00-20.00); Blood Urea Nitrogen 15.3 mg/dL (9.0-27.0); Carbon Dioxide 24.6 mmol/L (21.6-31.8); Chloride 100 mmol/L (96-109); Globulin 2.4 g/dL (1.6-3.3); Glucose 126 mg/dL (70-110); Potassium 4.9 mmol/L (3.5-5.5); Sodium 136 mmol/L (135-145); Total Bilirubin <0.2 mg/dL (0.3-1.2); Total Protein 6.3 g/dL (6.2-8.2)
--- NOTE | 2023-04-12 14:01 | P.PN ---
Subjective Progress Note Date: 04/12/23 Principal diagnosis: Acute exacerbation of COPD Patient is a 62-year-old white female past medical history significant for severe oxygen dependent COPD, chronic ongoing tobacco dependence, hyperlipidemia, coronary artery disease with previous coronary stents, carotid artery stenosis status post left carotid stenting, hypothyroidism, seizure disorder. Patient just recently had a hospital admission for similar symptoms earlier in January and February 2023 . She did require a brief ICU stay, and was on the BiPAP for hypercapnic respiratory failure. The patient is coming in to the hospital or increased cough and shortness of breath and congestion. She is smoking around 2-3 cigarettes a day on a daily basis and she states that she cut down her smoking since her last hospitalization. No chest pain. No pleurisy. No hemoptysis. No major swelling lower extremities. She was also denying any nausea or vomiting or abdominal pain. I reviewed the chest x-ray from admission and shows no acute abnormalities. The viral panel has been negative. EKG is showing a sinus rhythm without any significant tachycardia or acute EKG changes. UA has been negative. The white echoes at 7.3 with hemoglobin 12.3 and a platelet count of 234. BUN is at 60 with a creatinine of 0.8. Sodium levels of 139. Troponins are negative. ProBNP level is 2330. The patient did not require any BiPAP therapy during this current admission. She is on bronchodilators with DuoNeb up chest pH has been using 20 units on outpatient basis. She was also placed on IV Solu-Medrol 40 mg every 8 hours. The echo of the heart from 04/13/2021 showed a normal ejection fraction. No other signific ant abnormalities other than noted. Mostly systolic evaluation from 02/25/2020 was also within normal limits. The coronary angiogram from 09/20/2022 showed patent stent of LAD. Mild to moderate nonobstructive disease involving the RCA. Normal filling pressures. The patient is seen today 04/11/2023 in follow-up on the regular medical floor. She is currently sitting up in bed. Awake and alert in no acute distress. Doing a bit better today compared to yesterday. She is maintaining O2 satur ations in the 90s on 3 L/m per nasal cannula. She is continued on her home Trelegy, DuoNeb inhalations, Solu-Medrol. Echocardiogram revealed preserved left ventricular systolic function with ejection fraction 55-60%. Blood cultures revealing no growth. Sputum culture revealing no growth. 04/12/2023, doing well, relatively asymptomatic, going to be discharged home today. Objective - Vital Signs Vital signs: Vital Signs Temp 98.6 F 04/12/23 08:49 Pulse 108 H 04/12/23 08:49 Resp 20 04/12/23 08:49 BP 124/71 04/12/23 08:49 Pulse Ox 95 04/12/23 08:49 FiO2 Intake & Output 04/11/23 04/12/23 04/12/23 18:59 06:59 18:59 Output Total 1900 Balance -1900 Output: Urine 1900 Other: Voiding Method External Catheter # Voids 6 - Exam General: The patient is awake and alert, in no distress, and does not appear acutely ill. Room air Skin: Skin is warm and dry and no rashes or lesions are noted. Eye: Pupils are equal, round and reactive to light, extra-ocular movements are intact; there is normal conjunctiva bilaterally. Ears, nose, mouth and throat: There are moist mucous membranes and no oral lesions. Neck: The neck is supple, there is no tenderness or JVD. Cardiovascular: There is a regular rate and rhythm. No murmur, rub or gallop is appreciated. Respiratory: Minich breath sound bilaterally no crackles rhonchi or wheezes Gastrointestinal: Soft, non-distended, non-tender abdomen without masses or org anomegaly noted. There is no rebound or guarding present. Bowel sounds are unremarkable. Back: There is no tenderness to palpation in the midline. There is no obvious deformity. Musculoskeletal: Normal ROM, no tenderness, There is no pedal edema. There is no calf tenderness or swelling. No cords were appreciated. Neurological: Alert oriented x 3 no gross focal deficits Psychiatric: Cooperative, appropriate mood & affect, normal judgment. - Labs CBC & Chem 7: 04/12/23 04:16 04/12/23 04:16 Labs: Abnormal Lab Results - Last 24 Hours (Table) 04/12/23 04/12/23 Range/Units 04:16 04:16 WBC 11.64 H (4.50-10.00) X 10*3/uL MCHC 30.7 L (32.0-37.0) g/dL RDW 16.0 H (11.5-14.5) % MPV 8.8 L (9.5-12.2) FL Glucose 126 H (70-110) mg/dL Total Bilirubin <0.2 L (0.3-1.2) mg/dL AST 12 L (13-35) U/L ALT 6 L (8-44) U/L Microbiology - Last 24 Hours (Table) 04/09/23 20:55 Gram Stain - Final Sputum Sputum Culture - Final Proteus mirabilis 04/09/23 17:35 Blood Culture - Preliminary Blood 04/09/23 17:20 Blood Culture - Preliminary Blood Assessment and Plan Assessment: Impression Acute COPD exacerbation Severe COPD maintain on Trelegy Ellipta on an outpatient basis in addition to albuterol updrafts and oxygen. She is a chronic smoker Chronic hypoxic respiratory failure maternal O2 at 2 L/m nasal cannula Altered mental status, related to hypercapnic encephalopathy, improved and the mental status currently back to normal Chronic ongoing tobacco dependence Recommendations: Agree with discharge planning, Resume home meds bronchodilators Prednisone burst and taper Follow-up on outpatient basis Time with Patient: Less than 30
== END 2023-04-12 10:06 | disposition home or self-care (01) | DRG 190 ==
LOC: EC 13:46 → 4SSUR 17:27
PROVIDERS: ADMIT Family Medicine; ATTEND Family Medicine
DX: J44.1 Chronic obstructive pulmonary disease with (acute) exacerbation (principal); J96.21 Acute and chronic respiratory failure with hypoxia; J96.22 Acute and chronic respiratory failure with hypercapnia; G93.49 Other encephalopathy; F11.20 Opioid dependence, uncomplicated; I27.20 Pulmonary hypertension, unspecified; I95.89 Other hypotension; I11.9 Hypertensive heart disease without heart failure; I70.209 Unspecified atherosclerosis of native arteries of extremities, unspecified extremity; E03.9 Hypothyroidism, unspecified; G40.909 Epilepsy, unspecified, not intractable, without status epilepticus; E78.5 Hyperlipidemia, unspecified; I25.10 Atherosclerotic heart disease of native coronary artery without angina pectoris; G62.9 Polyneuropathy, unspecified; F17.210 Nicotine dependence, cigarettes, uncomplicated; E86.0 Dehydration; B96.4 Proteus (mirabilis) (morganii) as the cause of diseases classified elsewhere; G89.29 Other chronic pain; M25.562 Pain in left knee; R79.89 Other specified abnormal findings of blood chemistry; Z99.81 Dependence on supplemental oxygen; Z95.820 Peripheral vascular angioplasty status with implants and grafts; Z95.828 Presence of other vascular implants and grafts; I25.2 Old myocardial infarction; Z95.5 Presence of coronary angioplasty implant and graft; Z11.52 Encounter for screening for COVID-19; Z79.82 Long term (current) use of aspirin; Z79.02 Long term (current) use of antithrombotics/antiplatelets; Z79.899 Other long term (current) drug therapy; Z79.890 Hormone replacement therapy
CPT/HCPCS: 36415; 71046; 80048; 80053; 81003; 82803; 83605; 83735; 83880; 84439; 84443; 84484; 85025; 85027; 85610; 85730; 87040; 87070; 87077; 87186; 87205; 87636; 93005; 93306; 94640; 94760; 96361; 96365; 96375; 99285

== ENCOUNTER → 2023-05-26 | Outpatient (CLI) | payer MEDICARE ==
--- NOTE | 2023-05-26 14:23 | FL ---
ESOPHOGRAM. HISTORY: Dysphagia Esophagram was performed per the air contrast technique. The patient swallowed barium and effervesce nt crystals without difficulty or delay. Esophageal peristalsis and motility appear to be within normal limits. There is no evidence for filling defect, mass or diverticulum. No hiatal hernia seen. Subsequently single contrast cervical esophagram was performed which fails demonstrate evidence for a spiration penetration or mass. IMPRESSION: Unremarkable study.
== END | disposition home or self-care (01) ==
LOC: RADUSWWP 08:38
PROVIDERS: ATTEND Internal Medicine Gastroenterology
DX: R13.10 Dysphagia, unspecified (principal)
CPT/HCPCS: 74220

== ENCOUNTER 2023-06-30 19:27 | Inpatient (IN) | payer MEDICARE ==
[2023-06-30] MEDS: MIDODRINE 5 MG TAB PO STA (20:36)
[2023-06-30] MEDS: SODIUM CHLORIDE 0.9% 1,000 ML IV STA ×2 (20:37→20:38)
[2023-06-30] MEDS: methylPREDNISolone SOD SUCCI 125 MG/2 ML VIAL IV STA (20:38)
[2023-06-30 20:58] LABS: Anisocytosis Slight; Basophils # (A) 0.1 k/uL (0-0.2); Basophils % (A) 1 %; Eosinophils % (A) 0 %; HCT 42.2 % (34.0-46.0); HGB 12.7 gm/dL (11.4-16.0); Hypochromasia Marked; Lymphocytes # (A) 1.1 k/uL (1.0-4.8); Lymphocytes % (A) 15 %; MCH 28.8 pg (25.0-35.0); MCHC 30.2 g/dL (31.0-37.0); MCV 95.5 fL (80.0-100.0); Mean Platelet Volume 7.3; Monocytes # (A) 0.3 k/uL (0-1.0); Monocytes % (A) 4 %; Neutrophils # (A) 6.1 k/uL (1.3-7.7); Neutrophils % (A) 80 %; Platelet Count 311 k/uL (150-450); RBC 4.42 m/uL (3.80-5.40); RDW 16.1 % (11.5-15.5); WBC 7.6 k/uL (3.8-10.6)
[2023-06-30 21:10] LABS: INR 0.9 (<1.2); Partial Thromboplastin Time 22.3 sec (22.0-30.0); Prothrombin Time 9.7 sec (10.0-12.5)
[2023-06-30] MEDS: IPRATROPIUM-ALBUTEROL 3 ML NEB INHALATION STA (21:21)
[2023-06-30 21:25] LABS: VBG PH 7.12 (7.31-7.41)
[2023-06-30] MEDS ORDERED: IPRATROPIUM-ALBUTEROL 3 ML NEB INHALATION PRN (21:30)
[2023-06-30 21:51] LABS: ALT 8 U/L (4-34); AST 17 U/L (14-36); African American GFR (CKD) 62 (>60 ml/min/1.73 sqM); Albumin 3.1 g/dL (3.5-5.0); Alkaline Phosphatase 87 U/L (38-126); Anion Gap 6 mmol/L; Blood Urea Nitrogen 15 mg/dL (7-17); Calcium 7.6 mg/dL (8.4-10.2); Carbon Dioxide 21 mmol/L (22-30); Chloride 108 mmol/L (98-107); Glucose 110 mg/dL (74-99); Magnesium 2.4 mg/dL (1.6-2.3); Non-African American GFR(CKD) 54 (>60 ml/min/1.73 sqM); Potassium 3.9 mmol/L (3.5-5.1); Sodium 135 mmol/L (137-145); Total Bilirubin 0.1 mg/dL (0.2-1.3); Total Protein 5.8 g/dL (6.3-8.2)
[2023-06-30 21:58] LABS: NT-Pro-B-Type Natriuretic Pept 1420 pg/mL
[2023-06-30] MEDS ORDERED: NALOXONE 0.4 MG/ML 1 ML VIAL IV PRN (22:04)
[2023-06-30] MEDS: IPRATROPIUM-ALBUTEROL 3 ML NEB INHALATION SCH (22:26)
[2023-06-30] MEDS: levETIRAcetam 500 MG TAB PO SCH (22:27)
[2023-06-30] MEDS: GABAPENTIN 400 MG CAP PO SCH (22:28)
[2023-06-30] MEDS: DOXEPIN 10 MG CAP PO SCH (22:28)
[2023-06-30] MEDS: DOXYCYCLINE 100 MG in SODIUM CHLORIDE 0.9% 100 ML IVPB SCH (22:28)
--- NOTE | 2023-06-30 22:28 | XR ---
EXAMINATION TYPE: XR chest 2V DATE OF EXAM: 06/30/2023 8:22 PM CLINICAL INDICATION:Female, 63 years old with history of SOB; [facility] COMPARISON: 04/09/2023 TECHNIQUE: XR chest 2V. Frontal and lateral views of the chest.. FINDINGS: Lines/Tubes/Devices: EKG leads overlie the chest. No indwelling lines are seen. Heart/mediastinum: Heart appears mildly to moderately enlarged. Mediastinum appears stable. Atherosclerotic calcifications of the aorta. Pulmonary vascularity: Mild central vascular congestion and probable interstitial edema, similar to b efore. Lungs/Pleura: There is no evidence of significant pleural effusion, focal consolidation, or pneumotho rax. Suspect background chronic interstitial changes with hyperinflated lungs, can be seen with COPD . Mild left basilar scarring or subsegmental atelectasis. Musculoskeletal: No acute osseous abnormality demonstrated in the limits of the exam. Degenerative c hanges of the spine and shoulders. Other findings: None. IMPRESSION: Cardiomegaly with mild central vascular congestion. Correlate for mild CHF.
[2023-06-30 23:10] LABS: Appearance,Urine Clear (Clear); Bilirubin,Urine Negative (Negative); Blood,Urine Negative (Negative); Color,Urine Colorless; Glucose,Urine (UA) Negative (Negative); Ketones,Urine Negative (Negative); Leukocyte Esterase,Urine Negative (Negative); Nitrite,Urine Negative (Negative); PH, Urine 6.5 (5.0-8.0); Protein,Urine Trace (Negative); Specific Gravity,Urine 1.007 (1.001-1.035); Urobilinogen,Urine <2.0 mg/dL (<2.0)
--- NOTE | 2023-06-30 23:12 | ED ---
General Adult HPI - General Chief complaint: Shortness of Breath Stated complaint: Flu like symptoms - low on O2 Time Seen by Provider: 06/30/23 20:21 Source: patient, RN notes reviewed, old records reviewed Mode of arrival: wheelchair Limitations: no limitations - History of Present Illness Initial comments: Patient is a 63-year-old female presents emergency department complaining of cough, congestion, shortness of breath that is worsened over the last week. Was placed on steroids as well as azithromycin by her PCP but symptoms have worsened and therefore presents for further evaluation. Has a history of chronic hypotension and did not take her evening dose of midodrine this evening. Denies any diarrhea or nausea or vomiting. Does endorse some dehydration as she has not been eating or drinking much due to her coughing. Is chronically on 2 to 3 L nasal cannula at home. Denies any other acute complaints. Presents for further evaluation. No fevers or chills. No known sick contacts. - Related Data Home Medications Medication Instructions Recorded Confirmed Escitalopram [Lexapro] 40 mg PO DAILY 11/28/17 06/30/23 Levothyroxine Sodium 200 mcg PO DAILY 08/20/20 06/30/23 Nitroglycerin Sl Tabs [Nitrostat] 0.4 mg SL Q5M PRN 08/20/20 06/30/23 Doxepin [SINEquan] 10 mg PO HS 02/25/22 06/30/23 Albuterol Sulfate [Albuterol 1 - 2 puff INHALATION RT-Q6H PRN 02/03/23 06/30/23 Sulfate Hfa] cloNIDine HCL [Catapres] 0.2 mg PO BID 02/03/23 06/30/23 levETIRAcetam [Keppra] 1,500 mg PO BID 02/03/23 06/30/23 Albuterol Nebulized [Ventolin 2.5 mg INHALATION RT-QID PRN 04/09/23 06/30/23 Nebulized] Gabapentin 800 mg PO TID 04/09/23 06/30/23 Midodrine HCl [ProAmantine] 2.5 mg PO BID 04/09/23 06/30/23 buprenorphine HCL [Subutex] 8 mg SL DAILY 04/09/23 06/30/23 Azithromycin [Zithromax Z Pack] See Taper PO DAILY 06/30/23 06/30/23 Ibuprofen [Motrin] 800 mg PO TID PRN 06/30/23 06/30/23 methylPREDNISolone [Medrol Dose See Taper PO DAILY 06/30/23 06/30/23 Pack] Previous Rx's Medication Instructions Recorded Atorvastatin [Lipitor] 40 mg PO HS #30 tab 06/21/22 Clopidogrel [Plavix] 75 mg PO DAILY #90 tablet 10/28/22 Aspirin 81 mg PO DAILY tab 02/25/23 Allergies Allergy/AdvReac Type Severity Reaction Status Date / Time No Known Allergies Allergy Verified 06/30/23 21:05 Review of Systems ROS Statement: Those systems with pertinent positive or pertinent negative responses have been documented in the HPI. Review of Systems: CONST: Denies fever EYES: Denies blurry vision ENT: Denies nasal congestion C/V: Denies Chest pain RESP: Endorses cough, congestion GI: Denies abdominal pain : Denies dysuria SKIN: Denies rash. MSK: Denies joint pain. NEURO: Denies headache ROS Other: All systems not noted in ROS Statement are negative. Past Medical History Past Medical History: Asthma, Coronary Artery Disease (CAD), Chest Pain / Angina, COPD, GERD/Reflux, Hyperlipidemia, Hypertension, Myocardial Infarction ([place]), Respiratory Disorder, Seizure Disorder, Thyroid Disorder, Vascular Disorder Additional Past Medical History / Comment(s): PRN oxygen use, 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 carotid blockage, PAD, vertigo at times. Last Myocardial Infarction Date:: 06/2022 History of Any Multi-Drug Resistant Organisms: None Reported Past Surgical History: Heart Catheterization, Heart Catheterization With Stent, Hysterectomy, Joint Replacement, Orthopedic Surgery Additional Past Surgical History / Comment(s): RT ROTATOR CUFF REPAIR, R total knee, CYSTS REMOVED FROM UNDER ARMS AND HANDS, arch studies, L caratid e ndartectomy, 4 cardiac stents, several peripheral stents, 07/18/18 left subclavian stent, arch studies. Past Anesthesia/Blood Transfusion Reactions: No Reported Reaction Additional Past Anesthesia/Blood Transfusion Reaction / Comment(s): Pt states that she is unable to go under general anesthesia per her robotic technician due to low functioning lungs. Pt has never received blood. Date of Last Stent Placement:: Nov 2017 Past Psychological History: Anxiety, Depression Smoking Status: Current every day smoker Past Alcohol Use History: None Reported Past Drug Use History: Marijuana - Past Family History Mother Family Medical History: Cancer Sister(s) Family Medical History: Cancer General Exam - General Exam Comments Initial Comments: General: Appears in no acute distress. HEAD: Normal with no signs of head trauma. EYES: PERRLA, EOMI, conjunctiva normal, no discharge. ENT: Hearing grossly intact, normal oropharynx. RESPIRATORY: Bilateral end expiratory wheezing. No significant hypoxia on baseline 2 L nasal cannula. C/V: Regular rate and rhythm. S1 and S2 auscultated, no edema, peripheral pulses 2+ and intact throughout ABD: Abd is soft, nontender, nondistended EXT: Normal range of motion, no obvious deformity SKIN: No rashes or lesions observed on exposed skin. NEURO: Alert and oriented x 4. Cranial nerves II-XII intact. No focal sensory or strength deficits. Limitations: no limitations Course Vital Signs 06/30/23 06/30/23 06/30/23 19:41 20:17 21:15 Temperature 98.0 F Pulse Rate 89 92 89 Respiratory 20 16 18 Rate Blood Pressure 76/38 76/41 89/52 O2 Sat by Pulse 93 L 90 L 95 Oximetry 06/30/23 06/30/23 06/30/23 21:23 21:31 21:39 Temperature Pulse Rate 87 88 84 Respiratory 18 Rate Blood Pressure 108/61 O2 Sat by Pulse 94 L Oximetry 06/30/23 22:26 Temperature Pulse Rate 93 Respiratory 20 Rate Blood Pressure 130/89 O2 Sat by Pulse 92 L Oximetry Medical Decision Making - Medical Decision Making Was pt. sent in by a medical professional or institution (, PA, ADZ WORKER, urgent care, hospital, or jail...) When possible be specific @ -No Did you speak to anyone other than the patient for history (EMS, parent, family, police, friend...)? What history was obtained from this source @ -Spoke with patient's daughter who aids with patient's past medical history. Did you review nursing and triage notes (agree or disagree)? Why? @ -I reviewed and agree with nursing and triage notes Were old charts reviewed (outside hosp., previous admission, EMS record, old EKG, old radiological studies, urgent care reports/EKG's, jail records)? Report findings @ -Old charts reviewed Differential Diagnosis (chest pain, altered mental status, abdominal pain women, abdominal pain men, vaginal bleeding, weakness, fever, dyspnea, syncope, headache, dizziness, GI bleed, back pain, seizure, CVA, palpatations, mental health, musculoskeletal)? @ -Differential Dyspnea: Coronary syndrome, arrhythmia, tamponade, asthma, COPD, pulmonary embolism, pneumonia, pneumothorax, pulmonary effusion, anaphylaxis, diabetic ketoacidosis, flailed chest, pulmonary contusion, diaphragmatic rupture, anemia, neuromuscular, this is not meant to be an all-inclusive list. EKG interpreted by me (3pts min.). @ -As above X-rays interpreted by me (1pt min.). @ -Chest x-ray reveals no obvious acute infiltrate or pneumonia. CT interpreted by me (1pt min.). @ -None done U/S interpreted by me (1pt. min.). @ -None done What testing was considered but not performed or refused? (CT, X-rays, U/S, labs)? Why? @ -None What meds were considered but not given or refused? Why? @ -None Did you discuss the management of the patient with other professionals (professionals i.e. , PA, ADZ WORKER, lab, RT, psych nurse, social work msw, music producer, teacher, inshore undersea warfare officer, egg caser)? Give summary @ -Spoke with Dr. Mcwilliams who accepted the admission was in agreement this plan. Pulmonology consulted. Was smoking cessation discussed for >3mins.? @ -No Was critical care preformed (if so, how long)? @ -No Were there social determinants of health that impacted care today? How? (Homelessness, low income, unemployed, alcoholism, drug addiction, transportation, low edu. Level, literacy, decrease access to med. care, [facility], rehab)? @ -No Was there de-escalation of care discussed even if they declined (Discuss DNR or withdrawal of care, Hospice)? DNR status @ -No What co-morbidities impacted this encounter? (DM, HTN, Smoking, COPD, CAD, Cancer, CVA, ARF, Chemo, Hep., AIDS, mental health diagnosis, sleep apnea, morbid obesity)? @ -Chronic hypotension. Was patient admitted / discharged? Hospital course, mention meds given and route, prescriptions, significant lab abnormalities, going to OR and other [facility] info. @ -Patient presents complaining of worsening COPD like symptoms. Patient is wheezy with no significant hypoxia. Failed outpatient management for bronchitis and COPD. We will obtain cardiopulmonary workup. Patient's hypotensive at this time however did not take her evening dose of midodrine. This will be provided and as patient appears dehydrated did order IV fluid hydration. Mora ent was in agreement this plan. Vital signs are currently within acceptable limits otherwise. No distress at this time. EKG shows no signs of acute ischemia. Chest x-ray shows no infectious process. Labs remarkable for elevated pCO2 on VBG, which patient does have a history of. She is mentating well at this time. Labs otherwise within acceptable limits. Viral swabs negative. At this time I discussed results with patient as well as daughter. Patient will be admitted. They were in agreement this plan. Will continue with IV steroids as well as breathing treatments. Patient will be given IV doxycycline at this time after discussion with her PCP, Dr. Mcwilliams who accepted the admission was in agreement the plan for admission. I reordered home medications for the patient. She was in agreement this plan. Vital signs at this time are improved with blood pressure at 130/89. Undiagnosed new problem with uncertain prognosis? @ -No Drug Therapy requiring intensive monitoring for toxicity (Heparin, Nitro, Insulin, Cardizem)? @ -No Were any procedures done? @ -No Diagnosis/symptom? @ -COPD, tracheobronchitis Acute, or Chronic, or Acute on Chronic? @ -Acute Uncomplicated (without systemic symptoms) or Complicated (systemic symptoms)? @ -Complicated Side effects of treatment? @ -No Exacerbation, Progression, or Severe Exacerbation? @ -Exacerbation Poses a threat to life or bodily function? How? (Chest pain, [place], CA, pneumonia, PE, COPD, DKA, ARF, appy, cholecystitis, CVA, Diverticulitis, Homicidal, Suicidal, threat to staff... and all critical care pts) @ -Yes - Lab Data Result diagrams: 06/30/23 20:27 06/30/23 21:10 Lab Results 06/30/23 06/30/23 06/30/23 Range/Units 20:27 20:27 20:28 WBC 7.6 (3.8-10.6) k/uL RBC 4.42 (3.80-5.40) m/uL Hgb 12.7 (11.4-16.0) gm/dL Hct 42.2 (34.0-46.0) % MCV 95.5 (80.0-100.0) fL MCH 28.8 (25.0-35.0) pg MCHC 30.2 L (31.0-37.0) g/dL RDW 16.1 H (11.5-15.5) % Plt Count 311 (150-450) k/uL MPV 7.3 Neutrophils % 80 % Lymphocytes % 15 % Monocytes % 4 % Eosinophils % 0 % Basophils % 1 % Neutrophils # 6.1 (1.3-7.7) k/uL Lymphocytes # 1.1 (1.0-4.8) k/uL Monocytes # 0.3 (0-1.0) k/uL Eosinophils # 0.0 (0-0.7) k/uL Basophils # 0.1 (0-0.2) k/uL Hypochromasia Marked Anisocytosis Slight PT 9.7 L (10.0-12.5) sec INR 0.9 (<1.2) APTT 22.3 (22.0-30.0) sec VBG pH (7.31-7.41) VBG pCO2 (37-51) mmHg VBG HCO3 (24-28) mmol/L Sodium (137-145) mmol/L Potassium (3.5-5.1) mmol/L Chloride (98-107) mmol/L Carbon Dioxide (22-30) mmol/L Anion Gap mmol/L BUN (7-17) mg/dL Creatinine (0.52-1.04) mg/dL Est GFR (CKD-EPI)AfAm (>60 ml/min/1.73 sqM) Est GFR (CKD-EPI)NonAf (>60 ml/min/1.73 sqM) Glucose (74-99) mg/dL Calcium (8.4-10.2) mg/dL Magnesium (1.6-2.3) mg/dL Total Bilirubin (0.2-1.3) mg/dL AST (14-36) U/L ALT (4-34) U/L Alkaline Phosphatase (38-126) U/L NT-Pro-B Natriuret Pep pg/mL Total Protein (6.3-8.2) g/dL Albumin (3.5-5.0) g/dL Influenza Type A (PCR) Not Detected (Not Detectd) Influenza Type B (PCR) Not Detected (Not Detectd) RSV (PCR) Not Detected (Not Detectd) SARS-CoV-2 (PCR) Not Detected (Not Detectd) 06/30/23 06/30/23 Range/Units 20:36 21:10 WBC (3.8-10.6) k/uL RBC (3.80-5.40) m/uL Hgb (11.4-16.0) gm/dL Hct (34.0-46.0) % MCV (80.0-100.0) fL MCH (25.0-35.0) pg MCHC (31.0-37.0) g/dL RDW (11.5-15.5) % Plt Count (150-450) k/uL MPV Neutrophils % % Lymphocytes % % Monocytes % % Eosinophils % % Basophils % % Neutrophils # (1.3-7.7) k/uL Lymphocytes # (1.0-4.8) k/uL Monocytes # (0-1.0) k/uL Eosinophils # (0-0.7) k/uL Basophils # (0-0.2) k/uL Hypochromasia Anisocytosis PT (10.0-12.5) sec INR (<1.2) APTT (22.0-30.0) sec VBG pH 7.12 L* (7.31-7.41) VBG pCO2 71 H* (37-51) mmHg VBG HCO3 23 L (24-28) mmol/L Sodium 135 L (137-145) mmol/L Potassium 3.9 (3.5-5.1) mmol/L Chloride 108 H (98-107) mmol/L Carbon Dioxide 21 L (22-30) mmol/L Anion Gap 6 mmol/L BUN 15 (7-17) mg/dL Creatinine 1.09 H (0.52-1.04) mg/dL Est GFR (CKD-EPI)AfAm 62 (>60 ml/min/1.73 sqM) Est GFR (CKD-EPI)NonAf 54 (>60 ml/min/1.73 sqM) Glucose 110 H (74-99) mg/dL Calcium 7.6 L (8.4-10.2) mg/dL Magnesium 2.4 H (1.6-2.3) mg/dL Total Bilirubin 0.1 L (0.2-1.3) mg/dL AST 17 (14-36) U/L ALT 8 (4-34) U/L Alkaline Phosphatase 87 (38-126) U/L NT-Pro-B Natriuret Pep 1420 pg/mL Total Protein 5.8 L (6.3-8.2) g/dL Albumin 3.1 L (3.5-5.0) g/dL Influenza Type A (PCR) (Not Detectd) Influenza Type B (PCR) (Not Detectd) RSV (PCR) (Not Detectd) SARS-CoV-2 (PCR) (Not Detectd) - EKG Data -: EKG Interpreted by Me EKG Comments: 12-lead Electrocardiogram Interpretation Note EKG was reviewed and interpreted by myself. 12-lead ECG performed at 1953 is interpreted by me as revealing normal sinus rhythm at a rate of 85 beats per minute. Left axis deviation. [place] interval is 174 ms, QRS duration is 120 ms, QTc is 448 ms.. There were no ST or T wave abnormalities to suggest myocardial ischemia or injury. R wave progression across the precordium was satisfactory. By my interpretation this EKG is non-diagnostic for acute ischemia. Disposition Clinical Impression: COPD (chronic obstructive pulmonary disease), Tracheobronchitis Disposition: ADMITTED IP TO THIS HOSP Condition: Stable Time of Disposition: 22:01
[2023-07-01] MEDS: HEPARIN SODIUM,PORCINE 5,000 UNIT/ML 1 ML VIAL SQ SCH (00:10)
--- NOTE | 2023-07-01 02:22 | P.CNPUL ---
History of Present Illness Consult date: 07/01/23 Requesting physician: Markel Schneider Reason for consult: COPD Chief complaint: cough, shortness of breath History of present illness: Patient is a 63-year-old white female with past medical history significant for severe oxygen dependent COPD, chronic ongoing tobacco dependence, hyperlipidemi a, coronary artery disease with previous PCI/stenting, carotid artery stenosis status post left carotid stenting, hypothyroidism, seizure disorder. Patient just recently had a hospitalization March, for similar presentation. She presented to the emergency room late last night complaining of 1 week of increased cough, chest congestion, and shortness of breath. She was reportedly given a course of azithromycin and steroid taper by her PCP. Patient is currently drowsy, she will wake to verbal stimulation, and answer questions. She has troubles sitting up independently on her own. Technically oriented x 3 and does follow commands. She will not reliably answer any open-ended questio ns, but responds to direct questioning. Admits shortness of breath and increased productive cough with clear sputum. Denies fevers. States she continues to smoke, she smells like cigarette smoke. No chest pain or hemoptysis. No lower extremity swelling. No focal neurological deficits, likely a component of CO2 narcosis. Her COPD appears active. A VBG was done in the emergency room which showed a pH of 7.12, pCO2 of 71. She is currently on 4 L/min nasal cannula. Chest x-ray on arrival does not show any acute cardiopulmonary process, there is chronic interstitial changes, hyperinflated lungs, and likely left basilar atelectasis. CBC is unremarkable, no leukocytosis. CMP includes a sodium 135, potassium 3.9, chloride 108, serum bicarb 21, BUN 15, creatinine 1.09, glucose 110. LFTs not elevated. Normal saline infusing at 75 mL/h. NT proBNP 1420. EKG shows normal sinus rhythm, w ithout any obvious acute ischemic changes. Urinalysis unremarkable for infection. Negative for influenza, RSV, COVID. Afebrile. She is started on IV Solu-Medrol 40 mg every 8 hours, budesonide and formoterol inhalations, and DuoNebs [id number]. She is going to be placed on BiPAP. Review of Systems REVIEW OF SYSTEMS: CONSTITUTIONAL: Denies any recent significant weight loss or weight gain. EYES: Denies change in vision. EARS, NOSE, MOUTH, THROAT: Denies headaches, denies sore throat. CARDIOVASCULAR: Denies chest pain, palpitations or syncopal episodes. RESPIRATORY: See HPI GASTROINTESTINAL: Denies change in appetite, abdominal pain, nausea and vomiting, or diarrhea GENITOURINARY: Denies hematuria, denies infections. MUSKULOSKELETAL: Denies pain, denies swelling. INTEGUMENTARY: Denies rash, denies eczema. NEUROLOGICAL: Denies recent memory loss, no recent seizure activity. PSYCHIATRIC: Denies anxiety, denies depression. HEMATOLOGIC/LYMPHATIC: Denies anemia, denies enlarged lymph node Past Medical History Past Medical History: Asthma, Coronary Artery Disease (CAD), Chest Pain / Angina, COPD, GERD/Reflux, Hyperlipidemia, Hypertension, Myocardial Infarction ([place]), Respiratory Disorder, Seizure Disorder, Thyroid Disorder, Vascular Disorder Additional Past Medical History / Comment(s): PRN oxygen use, 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 carotid blockage, PAD, vertigo at times. Last Myocardial Infarction Date:: 06/2022 History of Any Multi-Drug Resistant Organisms: None Reported Past Surgical History: Heart Catheterization, Heart Catheterization With Stent, Hysterectomy, Joint Replacement, Orthopedic Surgery Additional Past Surgical History / Comment(s): RT ROTATOR CUFF REPAIR, R total knee, CYSTS REMOVED FROM UNDER ARMS AND HANDS, arch studies, L caratid endartectomy, 4 cardiac stents, several peripheral stents, 07/18/18 left subclavian stent, arch studies. Past Anesthesia/Blood Transfusion Reactions: No Reported Reaction Additional Past Anesthesia/Blood Transfusion Reaction / Comment(s): Pt states that she is unable to go under general anesthesia per her nail feeder due to low functioning lungs. Pt has never received blood. Date of Last Stent Placement:: Nov 2017 Past Psychological History: Anxiety, Depression Additional Psychological History / Comment(s): Pt resides with her boyfriend and puppy. Smoking Status: Current every day smoker, Former smoker Past Alcohol Use History: None Reported Additional Past Alcohol Use History / Comment(s): SMOKES 3-4 cig/day currently. Started smoking at age 11. Patient reports quiting 06/23/2023 Past Drug Use History: None Reported, Marijuana - Past Family History Mother Family Medical History: Cancer Sister(s) Family Medical History: Cancer Medications and Allergies Home Medications Medication Instructions Recorded Confirmed Type Escitalopram [Lexapro] 40 mg PO DAILY 11/28/17 06/30/23 History Levothyroxine Sodium 200 mcg PO DAILY 08/20/20 06/30/23 History Nitroglycerin Sl Tabs [Nitrostat] 0.4 mg SL Q5M PRN 08/20/20 06/30/23 History Doxepin [SINEquan] 10 mg PO HS 02/25/22 06/30/23 History Atorvastatin [Lipitor] 40 mg PO HS #30 tab 06/21/22 06/30/23 Rx Clopidogrel [Plavix] 75 mg PO DAILY #90 tablet 10/28/22 06/30/23 Rx Albuterol Sulfate [Albuterol 1 - 2 puff INHALATION RT-Q6H PRN 02/03/23 06/30/23 History Sulfate Hfa] cloNIDine HCL [Catapres] 0.2 mg PO BID 02/03/23 06/30/23 History levETIRAcetam [Keppra] 1,500 mg PO BID 02/03/23 06/30/23 History Aspirin 81 mg PO DAILY tab 02/25/23 06/30/23 Rx Albuterol Nebulized [Ventolin 2.5 mg INHALATION RT-QID PRN 04/09/23 06/30/23 History Nebulized] Gabapentin 800 mg PO TID 04/09/23 06/30/23 History Midodrine HCl [ProAmantine] 2.5 mg PO BID 04/09/23 06/30/23 History buprenorphine HCL [Subutex] 8 mg SL DAILY 04/09/23 06/30/23 History Azithromycin [Zithromax Z Pack] See Taper PO DAILY 06/30/23 06/30/23 History Ibuprofen [Motrin] 800 mg PO TID PRN 06/30/23 06/30/23 History methylPREDNISolone [Medrol Dose See Taper PO DAILY 06/30/23 06/30/23 History Pack] Allergies Allergy/AdvReac Type Severity Reaction Status Date / Time No Known Allergies Allergy Verified 06/30/23 21:05 Physical Exam Vitals: Vital Signs Temp Pulse Pulse Resp BP BP Pulse Ox 07/01/23 01:29 16 07/01/23 00:13 98.4 F 99 20 108/71 92 L 06/30/23 23:10 100 19 131/89 95 06/30/23 22:26 93 20 130/89 92 L 06/30/23 21:39 84 18 108/61 94 L 06/30/23 21:31 88 06/30/23 21:23 87 06/30/23 21:15 89 18 89/52 95 06/30/23 20:17 92 16 76/41 90 L 06/30/23 19:41 98.0 F 89 20 76/38 93 L Intake and Output 06/30/23 06/30/23 07/01/23 14:59 22:59 06:59 Other: Weight 74.843 kg 74.843 kg GENERAL EXAM: Lethargic, 63-year-old white female, lying in a semi-Fowlers position in bed, will awaken to verbal questioning but then falls back to sleep. HEAD: Normocephalic and atraumatic EYES: Normal reaction of pupils, equal size. NOSE: Clear with pink turbinates. THROAT: No erythema or exudates. NECK: No masses, no JVD. CHEST: No chest wall deformity. LUNGS: Equal air entry with diffuse expiratory wheezes and scattered rhonchi. On 4 L/min nasal cannula. No conversational dyspnea or accessory muscle use while at rest CVS: S1 and S2 normal with no audible murmur, regular rhythm. No extra heart sounds ABDOMEN: No hepatosplenomegaly, active bowel sounds, no guarding or rigidity. SPINE: No scoliosis or deformity SKIN: No rashes CENTRAL NERVOUS SYSTEM: No focal deficits, tone is normal in all 4 extremities. EXTREMITIES: There is no peripheral edema, clubbing, or cyanosis. Peripheral pulses are intact. Results - Laboratory Findings CBC and BMP: 06/30/23 20:27 06/30/23 21:10 PT/INR, D-dimer PT 9.7 sec (10.0-12.5) L 06/30/23 20: INR 0.9 (<1.2) 06/30/23 20:27 Abnormal lab findings: Abnormal Labs 06/30/23 06/30/23 06/30/23 20:27 20:27 20:36 MCHC 30.2 L RDW 16.1 H PT 9.7 L VBG pH 7.12 L* VBG pCO2 71 H* VBG HCO3 23 L Sodium Chloride Carbon Dioxide Creatinine Glucose Calcium Magnesium Total Bilirubin Total Protein Albumin Urine Protein 06/30/23 06/30/23 21:03 21:10 MCHC RDW PT VBG pH VBG pCO2 VBG HCO3 Sodium 135 L Chloride 108 H Carbon Dioxide 21 L Creatinine 1.09 H Glucose 110 H Calcium 7.6 L Magnesium 2.4 H Total Bilirubin 0.1 L Total Protein 5.8 L Albumin 3.1 L Urine Protein Trace H - Diagnostic Findings Chest x-ray: image reviewed Assessment and Plan Assessment: Acute COPD exacerbation, chest x-ray shows no acute cardiopulmonary process or evidence of pneumonia. Negative for influenza, RSV, COVID-19. Acute on chronic hypoxemic and hypercapnic respiratory failure, secondary to above Very severe chronic obstructive pulmonary disease, with a baseline FEV1 25% of predicted, maintained on Trelegy on an outpatient basis Chronic hypoxic respiratory failure, maintained continuously on 2 L/m nasal cannula Altered mental status, likely related to hypercapnic encephalopathy. Chronic ongoing tobacco dependence Chronic hypotension, maintained on midodrine on outpatient basis History of hyperlipidemia Coronary artery disease, with multiple previous coronary stents, most recent cardiac catheterization from 10/17/2022 showed patent stent to LAD. No other significant abnormalities other Carotid artery stenosis, status post left carotid stenting Hypothyroidism History of seizure disorder Plan: Patient's medications, labs, chest x-ray reviewed There is likely a component of CO2 narcosis. Patient will be placed on BiPAP 12/5 and FiO2 to be weaned to maintain an oxygen saturation of 90% or greater. Continue combination of DuoNebs [id number], budesonide inhalation, formoterol inhalation, and IV Solu-Medrol 40 mg 3 times daily Patient was placed empirically on doxycycline in the emergency room Negative for influenza, RSV, COVID Home medications have been resumed We will continue to follow I have personally seen and examined the patient, performed the documentation and the assessment and plan as written. Number of minutes spent on the visit:20 Time with Patient: Greater than 30
[2023-07-01] MEDS: LEVOTHYROXINE 100 MCG TAB PO SCH (06:02)
[2023-07-01 07:35] LABS: Anisocytosis Slight; Basophils % (A) 0 %; Eosinophils % (A) 0 %; HCT 43.2 % (34.0-46.0); HGB 13.1 gm/dL (11.4-16.0); Hypochromasia Marked; Lymphocytes # (A) 0.8 k/uL (1.0-4.8); Lymphocytes % (A) 11 %; MCH 29.2 pg (25.0-35.0); MCHC 30.3 g/dL (31.0-37.0); MCV 96.2 fL (80.0-100.0); Mean Platelet Volume 7.6; Monocytes # (A) 0.2 k/uL (0-1.0); Monocytes % (A) 2 %; Neutrophils # (A) 5.7 k/uL (1.3-7.7); Neutrophils % (A) 86 %; Platelet Count 295 k/uL (150-450); RBC 4.49 m/uL (3.80-5.40); RDW 16.1 % (11.5-15.5); WBC 6.7 k/uL (3.8-10.6)
[2023-07-01 07:45] LABS: African American GFR (CKD) 60 (>60 ml/min/1.73 sqM); Anion Gap 7 mmol/L; Blood Urea Nitrogen 18 mg/dL (7-17); Carbon Dioxide 19 mmol/L (22-30); Chloride 112 mmol/L (98-107); Glucose 138 mg/dL (74-99); Non-African American GFR(CKD) 52 (>60 ml/min/1.73 sqM); Potassium 4.2 mmol/L (3.5-5.1); Sodium 138 mmol/L (137-145)
[2023-07-01] MEDS: BUDESONIDE 1 MG/2 ML NEBU INHALATION SCH (07:53)
[2023-07-01] MEDS: FORMOTEROL FUMARATE 20 MCG/2 ML NEBU INHALATION SCH (07:53)
[2023-07-01] MEDS: IPRATROPIUM-ALBUTEROL 3 ML NEB INHALATION SCH (07:53)
[2023-07-01] MEDS: CLOPIDOGREL 75 MG TAB PO SCH (08:23)
[2023-07-01] MEDS: MIDODRINE 5 MG TAB PO SCH (08:23)
[2023-07-01] MEDS: methylPREDNISolone SOD SUCCI 40 MG/ML 1 ML VIAL IV SCH ×2 (08:23→16:26)
[2023-07-01] MEDS: ESCITALOPRAM 20 MG TAB PO SCH (08:23)
[2023-07-01] MEDS: cloNIDine HCL 0.2 MG TAB PO SCH (08:23)
[2023-07-01] MEDS: ASPIRIN 81 MG PO SCH (08:23)
[2023-07-01] MEDS ORDERED: IBUPROFEN 800 MG TAB PO PRN (08:44)
--- NOTE | 2023-07-01 08:44 | P.HPIM ---
History of Present Illness H&P Date: 07/01/23 Chief Complaint: COPD exacerbation The patient is 63-year-old white female who I saw on a telehealth visit about 10 days ago and started on empiric antibiotic treatment with steroids. She failed outpatient treatment is now admitted for tracheobronchitis with exacerbation of COPD. Appreciate pulmonology input. She is currently on BiPAP. Review of Systems Constitutional: Denies chills, Denies fever Eyes: denies blurred vision, denies pain Ears, nose, mouth and throat: Denies headache, Denies sore throat Cardiovascular: Denies chest pain, Denies shortness of breath Respiratory: Reports as per HPI, Reports cough, Reports dyspnea, Reports pleurisy, Reports respiratory infections Gastrointestinal: Denies abdominal pain, Denies diarrhea, Denies nausea, Denies vomiting Genitourinary: Denies dysuria, Denies hematuria Past Medical History Past Medical History: Asthma, Coronary Artery Disease (CAD), Chest Pain / Angina, COPD, GERD/Reflux, Hyperlipidemia, Hypertension, Myocardial Infarction ([place]), Respiratory Disorder, Seizure Disorder, Thyroid Disorder, Vascular Disorder Additional Past Medical History / Comment(s): PRN oxygen use, 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 carotid blockage, PAD, vertigo at times. Last Myocardial Infarction Date:: 06/2022 History of Any Multi-Drug Resistant Organisms: None Reported Past Surgical History: Heart Catheterization, Heart Catheterization With Stent, Hysterectomy, Joint Replacement, Orthopedic Surgery Additional Past Surgical History / Comment(s): RT ROTATOR CUFF REPAIR, R total knee, CYSTS REMOVED FROM UNDER ARMS AND HANDS, arch studies, L caratid endartectomy, 4 cardiac stents, several peripheral stents, 07/18/18 left subclavian stent, arch studies. 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 Pt has never received blood. Date of Last Stent Placement:: Nov 2017 Past Psychological History: Anxiety, Depression Additional Psychological History / Comment(s): Pt resides with her boyfriend and puppy. Smoking Status: Current every day smoker, Former smoker Past Alcohol Use History: None Reported Additional Past Alcohol Use History / Comment(s): SMOKES 3-4 cig/day currently. Started smoking at age 11. Patient reports quiting 06/23/2023 Past Drug Use History: None Reported, Marijuana - Past Family History Mother Family Medical History: Cancer Sister(s) Family Medical History: Cancer Medications and Allergies Home Medications Medication Instructions Recorded Confirmed Type Escitalopram [Lexapro] 40 mg PO DAILY 11/28/17 06/30/23 History Levothyroxine Sodium 200 mcg PO DAILY 08/20/20 06/30/23 History Nitroglycerin Sl Tabs [Nitrostat] 0.4 mg SL Q5M PRN 08/20/20 06/30/23 History Doxepin [SINEquan] 10 mg PO HS 02/25/22 06/30/23 History Atorvastatin [Lipitor] 40 mg PO HS #30 tab 06/21/22 06/30/23 Rx Clopidogrel [Plavix] 75 mg PO DAILY #90 tablet 10/28/22 06/30/23 Rx Albuterol Sulfate [Albuterol 1 - 2 puff INHALATION RT-Q6H PRN 02/03/23 06/30/23 History Sulfate Hfa] cloNIDine HCL [Catapres] 0.2 mg PO BID 02/03/23 06/30/23 History levETIRAcetam [Keppra] 1,500 mg PO BID 02/03/23 06/30/23 History Aspirin 81 mg PO DAILY tab 02/25/23 06/30/23 Rx Albuterol Nebulized [Ventolin 2.5 mg INHALATION RT-QID PRN 04/09/23 06/30/23 History Nebulized] Gabapentin 800 mg PO TID 04/09/23 06/30/23 History Midodrine HCl [ProAmantine] 2.5 mg PO BID 04/09/23 06/30/23 History buprenorphine HCL [Subutex] 8 mg SL DAILY 04/09/23 06/30/23 History Azithromycin [Zithromax Z Pack] See Taper PO DAILY 06/30/23 06/30/23 History Ibuprofen [Motrin] 800 mg PO TID PRN 06/30/23 06/30/23 History methylPREDNISolone [Medrol Dose See Taper PO DAILY 06/30/23 06/30/23 History Pack] Allergies Allergy/AdvReac Type Severity Reaction Status Date / Time No Known Allergies Allergy Verified 06/30/23 21:05 Physical Exam Vitals: Vital Signs Temp Pulse Pulse Resp BP BP Pulse Ox 07/01/23 08:22 80 07/01/23 08:09 78 07/01/23 08:00 97.9 F 84 24 144/76 92 L 07/01/23 07:56 21 07/01/23 07:53 78 92 L 07/01/23 03:40 97.4 F L 87 21 91/51 95 07/01/23 02:28 07/01/23 01:29 16 07/01/23 00:13 98.4 F 99 20 108/71 92 L 06/30/23 23:10 100 19 131/89 95 06/30/23 22:26 93 20 130/89 92 L 06/30/23 21:39 84 18 108/61 94 L 06/30/23 21:31 88 06/30/23 21:23 87 06/30/23 21:15 89 18 89/52 95 06/30/23 20:17 92 16 76/41 90 L 06/30/23 19:41 98.0 F 89 20 76/38 93 L FiO2 07/01/23 08:22 07/01/23 08:09 07/01/23 08:00 07/01/23 07:56 07/01/23 07:53 07/01/23 03:40 40 07/01/23 02:28 40 07/01/23 01:29 07/01/23 00:13 06/30/23 23:10 06/30/23 22:26 06/30/23 21:39 06/30/23 21:31 06/30/23 21:23 06/30/23 21:15 06/30/23 20:17 06/30/23 19:41 Intake and Output 06/30/23 07/01/23 07/01/23 22:59 06:59 14:59 Intake Total 237 Balance 237 Intake: Oral 237 Other: Weight 74.843 kg 74.843 kg - Constitutional General appearance: cooperative, mild distress - EENT Eyes: EOMI - Neck Neck: no lymphadenopathy - Respiratory Respiratory: bilateral: rales - Cardiovascular Rhythm: regular Heart sounds: normal: S1, S2 Abnormal Heart Sounds: no S3 Gallop - Gastrointestinal General gastrointestinal: soft, no tenderness - Integumentary Integumentary: no cellulitis - Psychiatric Psychiatric: appropriate affect Results CBC & Chem 7: 07/01/23 06:46 07/01/23 06:46 Labs: Abnormal Lab Results - Last 24 Hours (Table) 06/30/23 06/30/23 06/30/23 Range/Units 20:27 20:27 20:36 MCHC 30.2 L (31.0-37.0) g/dL RDW 16.1 H (11.5-15.5) % Lymphocytes # (1.0-4.8) k/uL PT 9.7 L (10.0-12.5) sec VBG pH 7.12 L* (7.31-7.41) VBG pCO2 71 H* (37-51) mmHg VBG HCO3 23 L (24-28) mmol/L Sodium (137-145) mmol/L Chloride (98-107) mmol/L Carbon Dioxide (22-30) mmol/L BUN (7-17) mg/dL Creatinine (0.52-1.04) mg/dL Glucose (74-99) mg/dL Calcium (8.4-10.2) mg/dL Magnesium (1.6-2.3) mg/dL Total Bilirubin (0.2-1.3) mg/dL Total Protein (6.3-8.2) g/dL Albumin (3.5-5.0) g/dL Urine Protein (Negative) 06/30/23 06/30/23 07/01/23 Range/Units 21:03 21:10 06:46 MCHC 30.3 L (31.0-37.0) g/dL RDW 16.1 H (11.5-15.5) % Lymphocytes # 0.8 L (1.0-4.8) k/uL PT (10.0-12.5) sec VBG pH (7.31-7.41) VBG pCO2 (37-51) mmHg VBG HCO3 (24-28) mmol/L Sodium 135 L (137-145) mmol/L Chloride 108 H (98-107) mmol/L Carbon Dioxide 21 L (22-30) mmol/L BUN (7-17) mg/dL Creatinine 1.09 H (0.52-1.04) mg/dL Glucose 110 H (74-99) mg/dL Calcium 7.6 L (8.4-10.2) mg/dL Magnesium 2.4 H (1.6-2.3) mg/dL Total Bilirubin 0.1 L (0.2-1.3) mg/dL Total Protein 5.8 L (6.3-8.2) g/dL Albumin 3.1 L (3.5-5.0) g/dL Urine Protein Trace H (Negative) 07/01/23 Range/Units 06:46 MCHC (31.0-37.0) g/dL RDW (11.5-15.5) % Lymphocytes # (1.0-4.8) k/uL PT (10.0-12.5) sec VBG pH (7.31-7.41) VBG pCO2 (37-51) mmHg VBG HCO3 (24-28) mmol/L Sodium (137-145) mmol/L Chloride 112 H (98-107) mmol/L Carbon Dioxide 19 L (22-30) mmol/L BUN 18 H (7-17) mg/dL Creatinine 1.13 H (0.52-1.04) mg/dL Glucose 138 H (74-99) mg/dL Calcium 8.0 L (8.4-10.2) mg/dL Magnesium (1.6-2.3) mg/dL Total Bilirubin (0.2-1.3) mg/dL Total Protein (6.3-8.2) g/dL Albumin (3.5-5.0) g/dL Urine Protein (Negative) Thrombosis Risk Factor Assmnt - Choose All That Apply Any of the Below Risk Factors Present?: Yes Each Factor Represents 1 point: Abnormal pulmonary function (COPD), Acute MO, Obesity (BMI >25) Other Risk Factors: Yes Each Risk Factor Represents 2 Points: Age 61-74 years Thrombosis Risk Factor Assessment Total Risk Factor Score: 5 Thrombosis Risk Factor Assessment Level: High Risk Assessment and Plan (1) COPD (chronic obstructive pulmonary disease) Current Visit: Yes Status: Acute Code(s): J44.9 - CHRONIC OBSTRUCTIVE PULMONARY DISEASE, UNSPECIFIED SNOMED Code(s): 39163560 (2) Acute respiratory failure with hypoxia and hypercapnia Current Visit: No Status: Acute Code(s): J96.01 - ACUTE RESPIRATORY FAILURE WITH HYPOXIA; J96.02 - ACUTE RESPIRATORY FAILURE WITH HYPERCAPNIA SNOMED Code(s): 902640630 (3) Altered mental status Current Visit: No Status: Acute Code(s): R41.82 - ALTERED MENTAL STATUS, UNSPECIFIED SNOMED Code(s): 731318474 (4) COPD exacerbation Current Visit: No Status: Acute Code(s): J44.1 - CHRONIC OBSTRUCTIVE PULMONARY DISEASE W (ACUTE) EXACERBATION SNOMED Code(s): 229082295 (5) Opiate dependence Current Visit: No Status: Acute Code(s): F11.20 - OPIOID DEPENDENCE, UNCOMPLICATED SNOMED Code(s): 03677435 (6) Wheezing Current Visit: No Status: Acute Code(s): R06.2 - WHEEZING SNOMED Code(s): 23402384 Plan: Continue empiric treatment with BiPAP. Reconcile home medications. Check CBC and CMP in AM. [facility] group will be covering for the weekend. Prognosis is guarded
[2023-07-01] MEDS ORDERED: methylPREDNISolone SOD SUCCI 40 MG/ML 1 ML VIAL IV SCH (09:00)
[2023-07-01] MEDS: Buprenorphine Hcl [Subutex] 8 MG Tab.Subl SUBLINGUAL SCH (09:40)
--- NOTE | 2023-07-01 14:16 | P.CNPUL ---
History of Present Illness Consult date: 07/01/23 Reason for consult: dyspnea, COPD History of present illness: Patient is a 63-year-old white female with past medical history significant for severe oxygen dependent COPD, chronic ongoing tobacco dependence, hyperlipidemia, coronary artery disease with previous PCI/stenting, carotid artery stenosis status post left carotid stenting, hypothyroidism, seizure disorder. Patient just recently had a hospitalization March, for similar presentation. She presented to the emergency room late last night complaining of 1 week of increased cough, chest congestion, and shortness of breath. She was reportedly given a course of azithromycin and steroid taper by her PCP. Patient is currently drowsy, she will wake to verbal stimulation, and answer questions. She has troubles sitting up independently on her own. Technically oriented x 3 and does follow commands. She will not reliably answer any open- ended questions, but responds to direct questioning. Admits shortness of breath and increased productive cough with clear sputum. Denies fevers. States she continues to smoke, she smells like cigarette smoke. No chest pain or hemopt ysis. No lower extremity swelling. No focal neurological deficits, likely a component of CO2 narcosis. Her COPD appears active. A VBG was done in the emergency room which showed a pH of 7.12, pCO2 of 71. She is currently on 4 L/min nasal cannula. Chest x-ray on arrival does not show any acute c ardiopulmonary process, there is chronic interstitial changes, hyperinflated lungs, and likely left basilar atelectasis. CBC is unremarkable, no leukocytosis. CMP includes a sodium 135, potassium 3.9, chloride 108, serum bicarb 21, BUN 15, creatinine 1.09, glucose 110. LFTs not elevated. Normal saline infusing at 75 mL/h. NT proBNP 1420. EKG shows normal sinus rhythm, without any obvious acute ischemic changes. Urinalysis unremarkable for infection. Negative for influenza, RSV, COVID. Afebrile. She is started on IV Solu-Medrol 40 mg every 8 hours, budesonide and formoterol inhalations, and DuoNebs [id number]. She is going to be placed on BiPAP. I saw this patient this morning and I also had a lengthy discussion with her son who was at the bedside. Obviously, the patient has advanced COPD her serum bicarb is essentially within normal limits. In fact her serum bicarb is on lower level on today's evaluation. Nevertheless, previous blood gas indicated acute hypercapnic respiratory failure . I am not sure the patient is hypercapnic at baseline.. At time of my evaluation, the patient was on a BiPAP pressure of 12 over 5 cm of water which was generating adequate volumes. No signs of any CO2 narcosis. Clinically ground and the patient was taken off the BiPAP. She is still smoking on and off. She is compliant with her trilogy Ellipta. Denies having any chest pain. No significant swelling lower extremities. No altered mentation at this point in time.Labs from today shows a white cell count of 6.7, hemoglobin 13.1, the BUN is 18 with a creatinine 1.1 and the patient serum bicarb is at 19, normal UA. Previous blood gases from earlier hospitalizations were consistent with hypercapnic respiratory failure. No arterial blood gas was done during this current admission. Her baseline FEV1 is no order of 25% of predicted and diffusion capacity noted of 23% of predicted. Review of Systems CONSTITUTIONAL: Denies any recent significant weight loss or weight gain. EYES: Denies change in vision. EARS, NOSE, MOUTH, THROAT: Denies headaches, denies sore throat. CARDIOVASCULAR: Denies chest pain, palpitations or syncopal episodes. RESPIRATORY: See HPI GASTROINTESTINAL: Denies change in appetite, abdominal pain, nausea and vomiti ng, or diarrhea GENITOURINARY: Denies hematuria, denies infections. MUSKULOSKELETAL: Denies pain, denies swelling. INTEGUMENTARY: Denies rash, denies eczema. NEUROLOGICAL: Denies recent memory loss, no recent seizure activity. PSYCHIATRIC: Denies anxiety, denies depression. HEMATOLOGIC/LYMPHATIC: Denies anemia, denies enlarged lymph node Past Medical History Past Medical History: Asthma, Coronary Artery Disease (CAD), Chest Pain / Angina, COPD, GERD/Reflux, Hyperlipidemia, Hypertension, Myocardial Infarction ([place]), Respiratory Disorder, Seizure Disorder, Thyroid Disorder, Vascular Disorder Additional Past Medical History / Comment(s): PRN oxygen use, 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 carotid blockage, PAD, vertigo at times. Last Myocardial Infarction Date:: 06/2022 History of Any Multi-Drug Resistant Organisms: None Reported Past Surgical History: Heart Catheterization, Heart Catheterization With Stent, Hysterectomy, Joint Replacement, Orthopedic Surgery Additional Past Surgical History / Comment(s): RT ROTATOR CUFF REPAIR, R total knee, CYSTS REMOVED FROM UNDER ARMS AND HANDS, arch studies, L caratid endartec paloma, 4 cardiac stents, several peripheral stents, 07/18/18 left subclavian stent, arch studies. 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 Pt has never received blood. Date of Last Stent Placement:: Nov 2017 Past Psychological History: Anxiety, Depression Additional Psychological History / Comment(s): Pt resides with her boyfriend and puppy. Smoking Status: Current every day smoker, Former smoker Past Alcohol Use History: None Reported Additional Past Alcohol Use History / Comment(s): SMOKES 3-4 cig/day currently. Started smoking at age 11. Patient reports quiting 06/23/2023 Past Drug Use History: None Reported, Marijuana - Past Family History Mother Family Medical History: Cancer Sister(s) Family Medical History: Cancer Medications and Allergies Home Medications Medication Instructions Recorded Confirmed Type Escitalopram [Lexapro] 40 mg PO DAILY 11/28/17 06/30/23 History Levothyroxine Sodium 200 mcg PO DAILY 08/20/20 06/30/23 History Nitroglycerin Sl Tabs [Nitrostat] 0.4 mg SL Q5M PRN 08/20/20 06/30/23 History Doxepin [SINEquan] 10 mg PO HS 02/25/22 06/30/23 History Atorvastatin [Lipitor] 40 mg PO HS #30 tab 06/21/22 06/30/23 Rx Clopidogrel [Plavix] 75 mg PO DAILY #90 tablet 10/28/22 06/30/23 Rx Albuterol Sulfate [Albuterol 1 - 2 puff INHALATION RT-Q6H PRN 02/03/23 06/30/23 History Sulfate Hfa] cloNIDine HCL [Catapres] 0.2 mg PO BID 02/03/23 06/30/23 History levETIRAcetam [Keppra] 1,500 mg PO BID 02/03/23 06/30/23 History Aspirin 81 mg PO DAILY tab 02/25/23 06/30/23 Rx Albuterol Nebulized [Ventolin 2.5 mg INHALATION RT-QID PRN 04/09/23 06/30/23 History Nebulized] Gabapentin 800 mg PO TID 04/09/23 06/30/23 History Midodrine HCl [ProAmantine] 2.5 mg PO BID 04/09/23 06/30/23 History buprenorphine HCL [Subutex] 8 mg SL DAILY 04/09/23 06/30/23 History Azithromycin [Zithromax Z Pack] See Taper PO DAILY 06/30/23 06/30/23 History Ibuprofen [Motrin] 800 mg PO TID PRN 06/30/23 06/30/23 History methylPREDNISolone [Medrol Dose See Taper PO DAILY 06/30/23 06/30/23 History Pack] Allergies Allergy/AdvReac Type Severity Reaction Status Date / Time No Known Allergies Allergy Verified 06/30/23 21:05 Physical Exam Vitals: Vital Signs Temp Pulse Pulse Resp BP BP Pulse Ox 07/01/23 11:50 80 07/01/23 11:35 78 07/01/23 11:34 07/01/23 08:22 80 07/01/23 08:09 78 07/01/23 08:00 97.9 F 84 24 144/76 92 L 07/01/23 07:56 21 07/01/23 07:53 78 92 L 07/01/23 03:40 97.4 F L 87 21 91/51 95 07/01/23 02:28 07/01/23 01:29 16 07/01/23 00:13 98.4 F 99 20 108/71 92 L 06/30/23 23:10 100 19 131/89 95 06/30/23 22:26 93 20 130/89 92 L 06/30/23 21:39 84 18 108/61 94 L 06/30/23 21:31 88 06/30/23 21:23 87 06/30/23 21:15 89 18 89/52 95 06/30/23 20:17 92 16 76/41 90 L 06/30/23 19:41 98.0 F 89 20 76/38 93 L FiO2 07/01/23 11:50 07/01/23 11:35 07/01/23 11:34 40 07/01/23 08:22 04/12/24 08:09 07/01/23 08:00 07/01/23 07:56 07/01/23 07:53 07/01/23 03:40 40 07/01/23 02:28 40 07/01/23 01:29 07/01/23 00:13 06/30/23 23:10 06/30/23 22:26 06/30/23 21:39 06/30/23 21:31 06/30/23 21:23 06/30/23 21:15 06/30/23 20:17 06/30/23 19:41 Intake and Output 06/30/23 07/01/23 07/01/23 22:59 06:59 14:59 Intake Total 237 Output Total 250 Balance -13 Intake: Oral 237 Output: Urine 250 Other: Weight 74.843 kg 74.843 kg GENERAL EXAM: Lethargic, 63-year-old white female,, comfortable and the patient is currently on a BiPAP at a pressure of 12 over 5 cm of water. Awake and alert and communicating. HEAD: Normocephalic and atraumatic EYES: Normal reaction of pupils, equal size. NOSE: Clear with pink turbinates. THROAT: No erythema or exudates. NECK: No masses, no JVD. CHEST: No chest wall deformity. LUNGS: Equal air entry with diffuse expiratory wheezes and scattered rhonchi. No conversational dyspnea or accessory muscle use while at rest CVS: S1 and S2 normal with no audible murmur, regular rhythm. No extra heart sounds ABDOMEN: No hepatosplenomegaly, active bowel sounds, no guarding or rigidity. SPINE: No scoliosis or deformity SKIN: No rashes CENTRAL NERVOUS SYSTEM: No focal deficits, tone is normal in all 4 extremities. EXTREMITIES: There is no peripheral edema, clubbing, or cyanosis. Peripheral pulses are intact. Results - Laboratory Findings CBC and BMP: 07/01/23 06:46 07/01/23 06:46 PT/INR, D-dimer PT 9.7 sec (10.0-12.5) L 06/30/23 20:27 INR 0.9 (<1.2) 06/30/23 20:27 Abnormal lab findings: Abnormal Labs 06/30/23 06/30/23 06/30/23 20:27 20:27 20:36 MCHC 30.2 L RDW 16.1 H Lymphocytes # PT 9.7 L VBG pH 7.12 L* VBG pCO2 71 H* VBG HCO3 23 L Sodium Chloride Carbon Dioxide BUN Creatinine Glucose Calcium Magnesium Total Bilirubin Total Protein Albumin Urine Protein 06/30/23 06/30/23 07/01/23 21:03 21:10 06:46 MCHC 30.3 L RDW 16.1 H Lymphocytes # 0.8 L PT VBG pH VBG pCO2 VBG HCO3 Sodium 135 L Chloride 108 H Carbon Dioxide 21 L BUN Creatinine 1.09 H Glucose 110 H Calcium 7.6 L Magnesium 2.4 H Total Bilirubin 0.1 L Total Protein 5.8 L Albumin 3.1 L Urine Protein Trace H 07/01/23 06:46 MCHC RDW Lymphocytes # PT VBG pH VBG pCO2 VBG HCO3 Sodium Chloride 112 H Carbon Dioxide 19 L BUN 18 H Creatinine 1.13 H Glucose 138 H Calcium 8.0 L Magnesium Total Bilirubin Total Protein Albumin Urine Protein - Diagnostic Findings Chest x-ray: image reviewed Assessment and Plan Plan: Acute COPD exacerbation, and the patient is known to have advanced COPD with an FEV1 of 25% predicted and diffusion capacity of 23% of predicted. The patient has had recurrent episodes of COPD exacerbation. She is a chronic smoker. Chest x-ray is clear and there is no acute pulmonary filtration. She has had previous episodes of an acute respiratory acidosis secondary to acute exacerbation. Baseline CO2 probably is not elevated as the patient does not have any significant metabolic alkalosis. In any rate, the patient is currently on a BiPAP pressure of 12 over 5 cm of water and no signs of any CO2 narcosis at this point in time. Acute on chronic shortness of breath secondary to above severe chronic obstructive pulmonary disease, with a baseline FEV1 25% of predicted, maintained on Trelegy on an outpatient basis Chronic smoker Chronic hypoxic respiratory failure, maintained continuously on 2 L/m nasal cannula Altered mental status, likely related to hypercapnic encephalopathy. Chronic ongoing tobacco dependence Chronic hypotension, maintained on midodrine on outpatient basis History of hyperlipidemia Coronary artery disease, with multiple previous coronary stents, most recent cardiac catheterization from 10/17/2022 showed patent stent to LAD. No other significant abnormalities other Carotid artery stenosis, status post left carotid stenting Hypothyroidism History of seizure disorder Plan: Will continue using BiPAP on and off during the day, the patient will be given a break and the patient will transition to 4 L of oxygen by nasal cannula. The BiPAP settings are 12 over 5 cm of water A follow-up blood gas will be obtained at a later stage to evaluate the baseline CO2 level. Should the patient has significant hypercapnia, she may benefit from BiPAP therapy on outpatient basis For now we will continue the current management. Continue combination of DuoNebs [id number], budesonide inhalation, formoterol inhalation, and IV Solu-Medrol 40 mg 3 times daily Patient was placed empirically on doxycycline in the emergency room Negative for influenza, RSV, COVID Home medications have been resumed We will continue to follow
[2023-07-01 18:11] LABS: Glucose,Whole Blood 259 mg/dL (70-110)
[2023-07-01 20:26] LABS: Glucose,Whole Blood 125 mg/dL (70-110)
[2023-07-01] MEDS: ATORVASTATIN 40 MG TAB PO SCH (20:42)
[2023-07-01] MEDS: INSULIN ASPART (NovoLOG) 100 UNIT/ML VIAL SQ SCH (20:42)
[2023-07-02 06:07] LABS: Glucose,Whole Blood 240 mg/dL (70-110)
[2023-07-02 11:31] LABS: ABG Base Excess -4.3 mmol/L; ABG HCO3 21 mmol/L (21-25); ABG PCO2 36 mmHg (35-45); ABG PH 7.38 (7.35-7.45); ABG PO2 104 mmHg (83-108); ABG TCO2 22 mmol/L (19-24); Allen Test Performed? Yes
[2023-07-02 11:36] LABS: ABG Oxygen Saturation 97.9 % (94-97)
[2023-07-02 11:39] LABS: Glucose,Whole Blood 94 mg/dL (70-110)
--- NOTE | 2023-07-02 14:33 | P.PN ---
Subjective Progress Note Date: 07/02/23 Patient is a 63-year-old white female with past medical history significant for severe oxygen dependent COPD, chronic ongoing tobacco dependence, hyperlipidemia, coronary artery disease with previous PCI/stenting, carotid artery stenosis status post left carotid stenting, hypothyroidism, seizure disorder. Patient just recently had a hospitalization March, for similar presentation. She presented to the emergency room late last night complaining of 1 week of increased cough, chest congestion, and shortness of breath. She was reportedly given a course of azithromycin and steroid taper by her PCP. Patient is currently drowsy, she will wake to verbal stimulation, and answer questions. She has troubles sitting up independently on her own. Technically oriented x 3 and does follow commands. She will not reliably answer any open- ended questions, but responds to direct questioning. Admits shortness of breath and increased productive cough with clear sputum. Denies fevers. States she continues to smoke, she smells like cigarette smoke. No chest pain or hemoptysis. No lower extremity swelling. No focal neurological deficits, likely a component of CO2 narcosis. Her COPD appears active. A VBG was done in the emergency room which showed a pH of 7.12, pCO2 of 71. She is currently on 4 L/min nasal cannula. Chest x-ray on arrival does not show any acute cardiopulmonary process, there is chronic interstitial changes, hyperinflated lungs, and likely left basilar atelectasis. CBC is unremarkable, no leukocytosis. CMP includes a sodium 135, potassium 3.9, chloride 108, serum bicarb 21, BUN 15, creatinine 1.09, glucose 110. LFTs not elevated. Normal saline infusing at 75 mL/h. NT proBNP 1420. EKG shows normal sinus rhythm, without any obvious acute ischemic changes. Urinalysis unremarkable for infection. Negative for influenza, RSV, COVID. Afebrile. She is started on IV Solu-Medrol 40 mg every 8 hours, budesonide and formoterol inhalations, and DuoNebs [id number]. She is going to be placed on BiPAP. I saw this patient this morning and I also had a lengthy discussion with her son who was at the bedside. Obviously, the patient has advanced COPD her serum bicarb is essentially within normal limits. In fact her serum bicarb is on lower level on today's evaluation. Nevertheless, previous blood gas indicated acute hypercapnic respiratory failure . I am not sure the patient is hypercapnic at baseline.. At time of my evaluation, the patient was on a BiPAP pressure of 12 over 5 cm of water which was generating adequate volumes. No signs of any CO2 narcosis. Clinically ground and the patient was taken off the BiPAP. She is still smoking on and off. She is compliant with her trilogy Ellipta. Denies having any chest pain. No significant swelling lower extremities. No altered mentation at this point in time.Labs from today shows a white cell count of 6.7, hemoglobin 13.1, the BUN is 18 with a creatinine 1.1 and the patient serum bicarb is at 19, normal UA. Previous blood gases from earlier hospitalizations were consistent with hypercapnic respiratory failure. No arterial blood gas was done during this current admission. Her baseline FEV1 is no order of 25% of predicted and diffusion capacity noted of 23% of predicted. On today's evaluation of 07/02/2023, the patient is being seen for a follow-up. The patient was seen in consultation yesterday for an acute stroke exacerbation. The patient is still having some episodes of confusion. No chest pain. Less short of breath compared to yesterday. Currently she is off the BiPAP and she is currently on oxygen at 3 L/min nasal cannula. Remains on bronchodilators and steroids. No focal neurological deficits. No chest pain. Remains on Solu- Medrol 40 mg every 8 hours. He remains on DuoNeb updrafts 4 times a day [id number] and the patient is also on a combination of Perforomist and Pulmicort nebulized treatment twice a day and empiric antibiotic coverage with doxycycline. Blood gas was done and shows no significant hypercapnia. pH is 7.38 with a pCO2 of 36 and pO2 of 104. This was on FiO2 of 3 L nasal cannula which is 36%. Objective - Vital Signs Vital signs: Vital Signs Temp 98.2 F 07/02/23 00:10 Pulse 80 07/02/23 07:52 Resp 18 07/02/23 04:05 BP 117/57 07/02/23 04:05 Pulse Ox 95 07/02/23 07:32 FiO2 40 07/02/23 04:33 Intake & Output 07/01/23 07/02/23 07/02/23 18:59 06:59 18:59 Intake Total 237 222 Output Total 250 500 Balance - 222 Intake: Oral 237 222 Output: Urine 250 500 Other: Voiding Method External Catheter # Voids 1 1 - Exam GENERAL EXAM: Lethargic, 63-year-old white female,, comfortable and the patient is currently on 3 L of oxygen by nasal cannula HEAD: Normocephalic and atraumatic EYES: Normal reaction of pupils, equal size. NOSE: Clear with pink turbinates. THROAT: No erythema or exudates. NECK: No masses, no JVD. CHEST: No chest wall deformity. LUNGS: Equal air entry with diffuse expiratory wheezes and scattered rhonchi. No conversational dyspnea or accessory muscle use while at rest CVS: S1 and S2 normal with no audible murmur, regular rhythm. No extra heart sounds ABDOMEN: No hepatosplenomegaly, active bowel sounds, no guarding or rigidity. SPINE: No scoliosis or deformity SKIN: No rashes CENTRAL NERVOUS SYSTEM: No focal deficits, tone is normal in all 4 extremities. EXTREMITIES: There is no peripheral edema, clubbing, or cyanosis. Peripheral pulses are intact. - Labs CBC & Chem 7: 07/01/23 06:46 07/01/23 06:46 Labs: Abnormal Lab Results - Last 24 Hours (Table) 07/01/23 07/01/23 07/02/23 Range/Units 18:08 20:23 06:05 POC Glucose (mg/dL) 259 H 125 H 240 H (70-110) mg/dL Microbiology - Last 24 Hours (Table) 06/30/23 20:27 Blood Culture - Preliminary Blood 06/30/23 20:42 Blood Culture - Preliminary Blood Assessment and Plan Plan: Acute COPD exacerbation, and the patient is known to have advanced COPD with an FEV1 of 25% predicted and diffusion capacity of 23% of predicted. The patient has had recurrent episodes of COPD exacerbation. She is a chronic smoker. Chest x-ray is clear and there is no acute pulmonary filtration. She has had previous episodes of an acute respiratory acidosis secondary to acute exacerb ation. The patient had a follow-up blood gas today and the pCO2 is essentially within normal and there is no evidence of hypercapnic respiratory failure. She is on 3 L of oxygen nasal cannula. Acute on chronic shortness of breath secondary to above severe chronic obstructive pulmonary disease, with a baseline FEV1 25% of predicted, maintained on Trelegy on an outpatient basis Chronic smoker Chronic hypoxic respiratory failure, maintained continuously on 2 L/m nasal cannula Altered mental status, likely related to hypercapnic encephalopathy. Chronic ongoing tobacco dependence Chronic hypotension, maintained on midodrine on outpatient basis History of hyperlipidemia Coronary artery disease, with multiple previous coronary stents, most recent cardiac catheterization from 10/17/2022 showed patent stent to LAD. No other significant abnormalities other Carotid artery stenosis, status post left carotid stenting Hypothyroidism History of seizure disorder Plan: Patient is currently on 3 L of oxygen by nasal cannula A follow-up blood gas showed no evidence of any hypercapnic respiratory failure Confusion is most likely related to other factors. There is episodic confusion without any focal neurological deficits. No signs of any hypercapnic respiratory failure or CO2 narcosis. For now we will continue the current management. Continue combination of DuoNebs [id number], budesonide inhalation, formoterol inhalation, and IV Solu-Medrol 40 mg 8 hours Patient was placed empirically on doxycycline in the emergency room Negative for influenza, RSV, COVID Home medications have been resumed We will continue to follow
[2023-07-02 16:41] LABS: Glucose,Whole Blood 124 mg/dL (70-110)
[2023-07-02 20:04] LABS: Glucose,Whole Blood 145 mg/dL (70-110)
--- NOTE | 2023-07-02 22:56 | P.PN ---
Subjective The patient is 63-year-old white female who I saw on a telehealth visit about 10 days ago and started on empiric antibiotic treatment with steroids. She failed outpatient treatment is now admitted for tracheobronchitis with exacerbation of COPD. Appreciate pulmonology input. She is currently on BiPAP. 06/22/2023 Patient is a pleasant 42 years old female who presents with acute COPD exacerbation evaluated by pulmonary team. She is on IV Solu-Medrol 40 mg and doxycycline She still have some limitation in air entry and scattered wheezing She is on 3 L oxygen via nasal cannula, at home she is on 2 L of normal BiPAP her dry boss is Dr. Gomez Labs reviewed which she has unremarkable CBC BMP except for creatinine of 1.1 with baseline 0.7-0.8. Liver enzymes is unremarkable and INR 0.9 proBNP is elevated 1470 Urine analysis is negative Influenza A and type B, RSV, SARS (coronavirus) are and detected Chest x-ray showing cardiomegaly and pulmonary vascular congestion per radiologist however when I reviewed the chest pain myself it looks more COPD Objective - Vital Signs Vital signs: Vital Signs Temp 98.4 F 07/02/23 15:50 Pulse 81 07/02/23 15:50 Resp 15 07/02/23 15:50 BP 116/60 07/02/23 15:50 Pulse Ox 95 07/02/23 15:50 FiO2 40 07/02/23 15:50 Intake & Output 07/02/23 07/02/23 07/03/23 06:59 18:59 06:59 Intake Total 920 Output Total 500 Balance -500 920 Intake: Oral 920 Output: Urine 500 Other: Voiding Method External Catheter Toilet # Voids 1 1 - Exam GENERAL: The patient is alert and oriented x3, not in any acute distress. Well developed, well nourished. HEENT: Pupils are round and equally reacting to light. EOMI. No scleral icterus. No conjunctival pallor. Normocephalic, atraumatic. No pharyngeal erythema. No thyromegaly. CARDIOVASCULAR: S1 and S2 present. No murmurs, rubs, or gallops. -PULMONARY: Chest is clear to auscultation, n bilateral scattered wheezing , no crackles. Limited air entry on both sides ABDOMEN: Soft, nontender, nondistended, normoactive bowel sounds. No palpable organomegaly. MUSCULOSKELETAL: No joint swelling or deformity. EXTREMITIES: No cyanosis, clubbing, or pedal edema. NEUROLOGICAL: Gross neurological examination did not reveal any focal deficits. SKIN: No rashes. no petechiae. - Labs CBC & Chem 7: 07/01/23 06:46 07/01/23 06:46 Labs: Abnormal Lab Results - Last 24 Hours (Table) 07/01/23 07/02/23 07/02/23 Range/Units 20:23 06:05 11:28 ABG O2 Saturation 97.9 H (94-97) % POC Glucose (mg/dL) 125 H 240 H (70-110) mg/dL 07/02/23 Range/Units 16:39 ABG O2 Saturation (94-97) % POC Glucose (mg/dL) 124 H (70-110) mg/dL Microbiology - Last 24 Hours (Table) 06/30/23 20:27 Blood Culture - Preliminary Blood 06/30/23 20:42 Blood Culture - Preliminary Blood Assessment and Plan Assessment: Acute COPD exacerbation acute hypoxic hypercapnic Respiratory failure on chronic failure Respiratory acidosis, improved Mild acute kidney injury Obesity with BMI of 27 History of seizure Plan: Continue with the steroids, IV Solu-Medrol Bronchodilator Pulmonary consult Continue with oxygen and BiPAP as indicated Labs and medication were reviewed.. Continue same treatment. Continue with symptomatic treatment. Resume home medication. Monitor labs and vitals. DVT and GI prophylaxis. Further recommendations as per clinical course of the patient DVT prophylaxis: Subcutaneous heparin GI Prophylaxis: Pepcid Prognosis is guarded
[2023-07-03] MEDS: IPRATROPIUM-ALBUTEROL 3 ML NEB INHALATION PRN (00:16)
[2023-07-03 06:06] LABS: Glucose,Whole Blood 152 mg/dL (70-110)
[2023-07-03 09:23] VITALS: TEMP 98.6
[2023-07-03 09:56] LABS: Appearance,Urine Clear (Clear); Bilirubin,Urine Negative (Negative); Blood,Urine Negative (Negative); Color,Urine Colorless; Glucose,Urine (UA) Negative (Negative); Ketones,Urine Negative (Negative); Leukocyte Esterase,Urine Negative (Negative); Nitrite,Urine Negative (Negative); Protein,Urine Negative (Negative); Specific Gravity,Urine 1.011 (1.001-1.035); Urobilinogen,Urine <2.0 mg/dL (<2.0)
[2023-07-03 11:04] LABS: African American GFR (CKD) 79 (>60 ml/min/1.73 sqM); Anion Gap 12 mmol/L; Blood Urea Nitrogen 25 mg/dL (7-17); Calcium 8.4 mg/dL (8.4-10.2); Carbon Dioxide 14 mmol/L (22-30); Chloride 113 mmol/L (98-107); Glucose 122 mg/dL (74-99); Non-African American GFR(CKD) 68 (>60 ml/min/1.73 sqM); Potassium 4.4 mmol/L (3.5-5.1); Sodium 139 mmol/L (137-145)
[2023-07-03 11:33] LABS: Glucose,Whole Blood 136 mg/dL (70-110)
--- NOTE | 2023-07-03 12:40 | P.PN ---
Subjective Progress Note Date: 07/03/23 Patient is a 63-year-old white female with past medical history significant for severe oxygen dependent COPD, chronic ongoing tobacco dependence, hyperlipidemia, coronary artery disease with previous PCI/stenting, carotid artery stenosis status post left carotid stenting, hypothyroidism, seizure disorder. Patient just recently had a hospitalization March, for similar presentation. She presented to the emergency room late last night complaining of 1 week of increased cough, chest congestion, and shortness of breath. She was reportedly given a course of azithromycin and steroid taper by her PCP. Patient is currently drowsy, she will wake to verbal stimulation, and answer questions. She has troubles sitting up independently on her own. Technically oriented x 3 and does follow commands. She will not reliably answer any open- ended questions, but responds to direct questioning. Admits shortness of breath and increased productive cough with clear sputum. Denies fevers. States she continues to smoke, she smells like cigarette smoke. No chest pain or hemoptysis. No lower extremity swelling. No focal neurological deficits, likely a component of CO2 narcosis. Her COPD appears active. A VBG was done in the emergency room which showed a pH of 7.12, pCO2 of 71. She is currently on 4 L/min nasal cannula. Chest x-ray on arrival does not show any acute cardiopulmonary process, there is chronic interstitial changes, hyperinflated lungs, and likely left basilar atelectasis. CBC is unremarkable, no leukocytosis. CMP includes a sodium 135, potassium 3.9, chloride 108, serum bicarb 21, BUN 15, creatinine 1.09, glucose 110. LFTs not elevated. Normal saline infusing at 75 mL/h. NT proBNP 1420. EKG shows normal sinus rhythm, without any obvious acute ischemic changes. Urinalysis unremarkable for infection. Negative for influenza, RSV, COVID. Afebrile. She is started on IV Solu-Medrol 40 mg every 8 hours, budesonide and formoterol inhalations, and DuoNebs [id number]. She is going to be placed on BiPAP. I saw this patient this morning and I also had a lengthy discussion with her son who was at the bedside. Obviously, the patient has advanced COPD her serum bicarb is essentially within normal limits. In fact her serum bicarb is on lower level on today's evaluation. Nevertheless, previous blood gas indicated acute hypercapnic respiratory failure . I am not sure the patient is hypercapnic at baseline.. At time of my evaluation, the patient was on a BiPAP pressure of 12 over 5 cm of water which was generating adequate volumes. No signs of any CO2 narcosis. Clinically ground and the patient was taken off the BiPAP. She is still smoking on and off. She is compliant with her trilogy Ellipta. Denies having any chest pain. No significant swelling lower extremities. No altered mentation at this point in time.Labs from today shows a white cell count of 6.7, hemoglobin 13.1, the BUN is 18 with a creatinine 1.1 and the patient serum bicarb is at 19, normal UA. Previous blood gases from earlier hospitalizations were consistent with hypercapnic respiratory failure. No arterial blood gas was done during this current admission. Her baseline FEV1 is no order of 25% of predicted and diffusion capacity noted of 23% of predicted. On today's evaluation of 07/02/2023, the patient is being seen for a follow-up. The patient was seen in consultation yesterday for an acute stroke exacerbation. The patient is still having some episodes of confusion. No chest pain. Less short of breath compared to yesterday. Currently she is off the BiPAP and she is currently on oxygen at 3 L/min nasal cannula. Remains on bronchodilators and steroids. No focal neurological deficits. No chest pain. Remains on Solu- Medrol 40 mg every 8 hours. He remains on DuoNeb updrafts 4 times a day [id number] and the patient is also on a combination of Perforomist and Pulmicort nebulized treatment twice a day and empiric antibiotic coverage with doxycycline. Blood gas was done and shows no significant hypercapnia. pH is 7.38 with a pCO2 of 36 and pO2 of 104. This was on FiO2 of 3 L nasal cannula which is 36%. On today's evaluation of 07/03/2023, I am seeing the patient for a follow-up. The patient is feeling well. No significant shortness of breath at this point in time. No altered mentation. The patient feels that she is overall back to her baseline. Blood gas was done yesterday and showed no significant hypercapnia. The patient currently has a sodium level of 139, BUN is 25 with a creatinine of 0.9. Serum bicarb is currently down to 14. UA is negative. Remains on a combination of bronchodilators. Remains on IV Solu-Medrol 40 mg every 8 hours. Objective - Vital Signs Vital signs: Vital Signs Temp 98.6 F 07/03/23 09:05 Pulse 76 07/03/23 09:05 Resp 20 07/03/23 09:05 BP 85/45 07/03/23 09:05 Pulse Ox 93 L 07/03/23 09:05 FiO2 30 07/03/23 04:25 Intake & Output 07/02/23 07/03/23 07/03/23 18:59 06:59 18:59 Intake Total 920 358 Balance 920 358 Intake: Oral 920 358 Other: Voiding Method Toilet Toilet Toilet # Voids 1 2 - Exam GENERAL EXAM: Lethargic, 63-year-old white female,, comfortable and the patient is currently on 3 L of oxygen by nasal cannula HEAD: Normocephalic and atraumatic EYES: Normal reaction of pupils, equal size. NOSE: Clear with pink turbinates. THROAT: No erythema or exudates. NECK: No masses, no JVD. CHEST: No chest wall deformity. LUNGS: Equal air entry with diffuse expiratory wheezes and scattered rhonchi. No conversational dyspnea or accessory muscle use while at rest CVS: S1 and S2 normal with no audible murmur, regular rhythm. No extra heart sounds ABDOMEN: No hepatosplenomegaly, active bowel sounds, no guarding or rigidity. SPINE: No scoliosis or deformity SKIN: No rashes CENTRAL NERVOUS SYSTEM: No focal deficits, tone is normal in all 4 extremities. EXTREMITIES: There is no peripheral edema, clubbing, or cyanosis. Peripheral pulses are intact. - Labs CBC & Chem 7: 07/01/23 06:46 07/03/23 08:25 Labs: Abnormal Lab Results - Last 24 Hours (Table) 07/02/23 07/02/23 07/02/23 Range/Units 11:28 16:39 20:02 ABG O2 Saturation 97.9 H (94-97) % POC Glucose (mg/dL) 124 H 145 H (70-110) mg/dL 07/03/23 Range/Units 06:04 ABG O2 Saturation (94-97) % POC Glucose (mg/dL) 152 H (70-110) mg/dL Microbiology - Last 24 Hours (Table) 06/30/23 20:27 Blood Culture - Preliminary Blood 06/30/23 20:42 Blood Culture - Preliminary Blood Assessment and Plan Plan: Acute COPD exacerbation, and the patient is known to have advanced COPD with an FEV1 of 25% predicted and diffusion capacity of 23% of predicted. The patient has had recurrent episodes of COPD exacerbation. She is a chronic smoker. Chest x-ray is clear and there is no acute pulmonary filtration. She has had previous episodes of an acute respiratory acidosis secondary to acute exacerbation. The patient had a follow-up blood gas today and the pCO2 is essentially within normal and there is no evidence of hypercapnic respiratory failure. She is on 3 L of oxygen nasal cannula. Clinically improving and the patient is feeling less short of breath compared to yesterday. Acute on chronic shortness of breath secondary to above severe chronic obstructive pulmonary disease, with a baseline FEV1 25% of predicted, maintained on Trelegy on an outpatient basis Chronic smoker Chronic hypoxic respiratory failure, maintained continuously on 2 L/m nasal cannula Altered mental status, likely related to hypercapnic encephalopathy. Chronic ongoing tobacco dependence Chronic hypotension, maintained on midodrine on outpatient basis History of hyperlipidemia Coronary artery disease, with multiple previous coronary stents, most recent cardiac catheterization from 10/17/2022 showed patent stent to LAD. No other significant abnormalities other Carotid artery stenosis, status post left carotid stenting Hypothyroidism History of seizure disorder Anion gap metabolic acidosis. Plan: The patient is clinically improving. Will give 2 A of sodium bicarb to treat an underlying anion gap metabolic acidosis with a bicarb deficit. This was done yesterday. Propofol Patient is currently on 3 L of oxygen by nasal cannula A follow-up blood gas showed no evidence of any hypercapnic respiratory failure, and based on the blood gases, the patient does not qualify for noninvasive positive pressure ventilator due to COPD criteria. The patient will need an outpatient sleep study. Confusion is most likely related to other factors. There is episodic confusion without any focal neurological deficits. No signs of any hypercapnic r espiratory failure or CO2 narcosis. For now we will continue the current management. Continue combination of DuoNebs [id number], budesonide inhalation, formoterol inhalation, and IV Solu-Medrol 40 mg 8 hours, prednisone burst taper at time of discharge Negative for influenza, RSV, COVID Home medications have been resumed We will continue to follow
[2023-07-03 12:44] VITALS: RESP 16
[2023-07-03] MEDS: SODIUM BICARB 8.4% 50 ML SYR (1 MEQ/ML) IV STA (13:53)
[2023-07-03 16:27] LABS: African American GFR (CKD) 79 (>60 ml/min/1.73 sqM); Anion Gap 10 mmol/L; Blood Urea Nitrogen 25 mg/dL (7-17); Calcium 8.4 mg/dL (8.4-10.2); Carbon Dioxide 23 mmol/L (22-30); Chloride 108 mmol/L (98-107); Glucose 94 mg/dL (74-99); Non-African American GFR(CKD) 68 (>60 ml/min/1.73 sqM); Potassium 3.8 mmol/L (3.5-5.1); Sodium 141 mmol/L (137-145)
[2023-07-03 16:33] LABS: Glucose,Whole Blood 161 mg/dL (70-110)
[2023-07-03 18:01] VITALS: BP 108/55; PULSE 89
--- NOTE | 2023-07-06 10:02 | P.DS ---
Providers Date of admission: 06/30/23 22:07 Attending physician: Jose F Mcwilliams Consults: 06/30/23 22:04 Consult Physician Routine Consulting Provider: Karlie Marques Consult Reason/Comments: copd Do you want consulting provider notified?: Yes Primary care physician: Jose F Mcwilliams Hospital Course: Diagnoses: Acute COPD exacerbation acute hypoxic hypercapnic Respiratory failure on chronic failure acute metabolic acidosis with she denies chest pain, no new low bicarbonate and improved prior to discharge Respiratory acidosis, improved chronic borderline blood pressure, symptomatic, patient confirms this is her baseline Mild acute kidney injury Obesity with BMI of 27 History of seizure Hospital course: The patient is 63-year-old white female who has history of COPD and she follow- up with Dr. Gomez she is not on BiPAP at home but she uses 2 L/min via nasal cannula Presents because of worsening respiratory symptoms and dyspnea secondary to acute COPD exacerbation. Evaluated by embossed or impressed lettering painter and treated with doxycycline and IV Solu-Medrol and patient showed interval improvement On the day of the discharge patient was eager to go home today. Or change in her bowel or urinary habits. No fever or chills. Her dyspnea improved. She does not need more oxygen. I talked with pulmonary service. For discharge However her bicarb was low at 14 on the morning of surgery . No level of vitals is corrected. Patient remains asymptomatic and she was cleared for discharge by embossed or impressed lettering painter patient will be discharged on tapered prednisone And short course of antibiotic of doxycycline Problems and management plan were discussed with the patient and he verbalized understanding and acceptance Patient was found stable and can be discharged home in guarded prognosis however he needs follow-up as an outpatient. Patient was instructed to follow up with PCP Dr. Mcwilliams within one week and patient agrees Patient was instructed to follow-up with her embossed or impressed lettering painter Dr. Gomez in 1 to 2 weeks after discharge and changes will make an appointment because today's weekend Physical exam Gen: patient is a AAOx3, no distress CVS: S1-S2, RRR, no murmur Lungs: B/L CTA, no wheezing Abdomen: soft, no distention, no tenderness, positive bowel sounds Extremity: no leg edema or induration Time spent more than 35 minutes Patient Condition at Discharge: Stable Plan - Discharge Summary Discharge Rx Participant: No New Discharge Prescriptions: New predniSONE 10 mg PO DIRECTED #40 tab Doxycycline [Vibramycin] 100 mg PO BID 2 Days #4 cap Continue Escitalopram [Lexapro] 40 mg PO DAILY Nitroglycerin Sl Tabs [Nitrostat] 0.4 mg SL Q5M PRN PRN Reason: Chest Pain Doxepin [SINEquan] 10 mg PO HS levETIRAcetam [Keppra] 1,500 mg PO BID Albuterol Sulfate [Albuterol Sulfate Hfa] 1 - 2 puff INHALATION RT-Q6H PRN PRN Reason: Shortness Of Breath Aspirin 81 mg PO DAILY tab Midodrine HCl [ProAmantine] 2.5 mg PO BID Gabapentin 800 mg PO TID buprenorphine HCL [Subutex] 8 mg SL DAILY Levothyroxine Sodium 200 mcg PO DAILY Atorvastatin [Lipitor] 40 mg PO HS #30 tab Clopidogrel [Plavix] 75 mg PO DAILY #90 tablet cloNIDine HCL [Catapres] 0.2 mg PO BID Albuterol Nebulized [Ventolin Nebulized] 2.5 mg INHALATION RT-QID PRN PRN Reason: Shortness Of Breath Ibuprofen [Motrin] 800 mg PO TID PRN PRN Reason: Pain Discontinued methylPREDNISolone [Medrol Dose Pack] See Taper PO DAILY Azithromycin [Zithromax Z Pack] See Taper PO DAILY Discharge Medication List Escitalopram [Lexapro] 40 mg PO DAILY 11/28/17 [History] Levothyroxine Sodium 200 mcg PO DAILY 08/20/20 [History] Nitroglycerin Sl Tabs [Nitrostat] 0.4 mg SL Q5M PRN 08/20/20 [History] Doxepin [SINEquan] 10 mg PO HS 02/25/22 [History] Atorvastatin [Lipitor] 40 mg PO HS #30 tab 06/21/22 [Rx] Clopidogrel [Plavix] 75 mg PO DAILY #90 tablet 10/28/22 [Rx] Albuterol Sulfate [Albuterol Sulfate Hfa] 1 - 2 puff INHALATION RT-Q6H PRN 02/03/23 [History] cloNIDine HCL [Catapres] 0.2 mg PO BID 02/03/23 [History] levETIRAcetam [Keppra] 1,500 mg PO BID 02/03/23 [History] Aspirin 81 mg PO DAILY tab 02/25/23 [Rx] Albuterol Nebulized [Ventolin Nebulized] 2.5 mg INHALATION RT-QID PRN 04/09/23 [History] Gabapentin 800 mg PO TID 04/09/23 [History] Midodrine HCl [ProAmantine] 2.5 mg PO BID 04/09/23 [History] buprenorphine HCL [Subutex] 8 mg SL DAILY 04/09/23 [History] Ibuprofen [Motrin] 800 mg PO TID PRN 06/30/23 [History] Doxycycline [Vibramycin] 100 mg PO BID 2 Days #4 cap 07/03/23 [Rx] predniSONE 10 mg PO DIRECTED #40 tab 07/03/23 [Rx] Follow up Appointment(s)/Referral(s): Sandeep Thurman MD [STAFF PHYSICIAN] - 1 Week (Please call the office Tuesday to schedule follow up appointment. ) Jose F Mcwilliams MD [Primary Care Provider] - 1 Week (Please call the office Tuesday to schedule follow up appointment. ) Patient Instructions/Handouts: Using Oxygen at Home (DC), COPD (Chronic Obstructive Pulmonary Disease) (DC) Activity/Diet/Wound Care/Special Instructions: Heart healthy diet Activity is restricted till you see your doctor Discharge Disposition: HOME SELF-CARE
== END 2023-07-03 18:11 | disposition home or self-care (01) | DRG 190 ==
LOC: EC 19:27 → 4SSUR 22:06 → INTOOBSV 22:07 → OBSVTOIN 22:07 → 4SSUR 22:48 → 3SCARD 07-01 04:11 → UNDODISIN 07-03 18:11
PROVIDERS: ADMIT Family Medicine; ATTEND Family Medicine
PROC: 5A09357 Assistance with Respiratory Ventilation, Less than 24 Consecutive Hours, Continuous Positive Airway Pressure (ICD-10-PCS; principal; 2023-06-30)
DX: J44.1 Chronic obstructive pulmonary disease with (acute) exacerbation (principal); J96.21 Acute and chronic respiratory failure with hypoxia; J96.22 Acute and chronic respiratory failure with hypercapnia; N17.9 Acute kidney failure, unspecified; G93.49 Other encephalopathy; E87.20 Acidosis, unspecified; F11.20 Opioid dependence, uncomplicated; E03.9 Hypothyroidism, unspecified; Z79.890 Hormone replacement therapy; I25.10 Atherosclerotic heart disease of native coronary artery without angina pectoris; F17.210 Nicotine dependence, cigarettes, uncomplicated; Z99.81 Dependence on supplemental oxygen; E66.9 Obesity, unspecified; Z68.27 Body mass index [BMI] 27.0-27.9, adult; E78.5 Hyperlipidemia, unspecified; E86.0 Dehydration; F32.A Depression, unspecified; F41.9 Anxiety disorder, unspecified; G40.909 Epilepsy, unspecified, not intractable, without status epilepticus; G62.9 Polyneuropathy, unspecified; I73.9 Peripheral vascular disease, unspecified; I25.2 Old myocardial infarction; I10 Essential (primary) hypertension; I95.89 Other hypotension; Z79.02 Long term (current) use of antithrombotics/antiplatelets; Z79.82 Long term (current) use of aspirin; Z79.899 Other long term (current) drug therapy; Z90.710 Acquired absence of both cervix and uterus; Z95.5 Presence of coronary angioplasty implant and graft
CPT/HCPCS: 36415; 36600; 71046; 80048; 80053; 81003; 82803; 82805; 83735; 83880; 85025; 85610; 85730; 87040; 87636; 93005; 94640; 94660; 94760; 96361; 96365; 96375; 99285

== ENCOUNTER → 2023-07-27 | Outpatient (CLI) | payer MEDICARE | END | disposition home or self-care (01) | LOC: 3 N SLEEP 10:45 | PROVIDERS: ATTEND Internal Medicine Critical Care Medicine | DX: Z53.9 Procedure and treatment not carried out, unspecified reason (principal) ==

== ENCOUNTER → 2023-08-24 | Outpatient (CLI) | payer MEDICARE ==
--- NOTE | 2023-09-04 23:42 | P.PCN ---
Date of Procedure: 08/24/23 Operative Findings: Home sleep study report Date of services 08/24/2023 Pertinent history Patient was suspected of obstructive sleep apnea based on her home sleep study was ordered. The patient is known to have advanced COPD with an FEV1 of 25% of predicted. He is known to have coronary artery disease, seizure disorder, hypothyroidism hyperlipidemia carotid artery stenosis. He is on oxygen at 2 L/min nasal cannula Pertinent physical findings The patient has a height of 5 feet and 5 inches, weight is 166 pounds with a body mass index of 27.6 Technical description The UpOut system was used to complete this home sleep study. This is a type III home sleep study. Total recording duration was 12 hours. The study started at 6:49 PM and ended at 6:49 AM. There was a total of 10 hours and 50 minutes of flow monitoring and 5 hours and 55 minutes of oxygen saturation monitoring Respiratory analysis The patient had a total of 2 obstructive apneas and 4 obstructive hypopneas and the resulting AHI was 0.6 Oxygenation analysis The patient has significant nocturnal oxygen desaturations. Lowest pulse ox was 65% and the patient spent approximately 5 hours and 39 minutes of the sleep time below pulse ox of 89%. Noted the baseline pulse ox was 85%, average pulse ox during sleep was 80%. Cardiac summary Average heart rate was 80 with a minimum heart rate of 40 and a maximum heart rate of 227. Assessment No evidence of any sleep breathing disorder. The patient has primary snoring. AHI was 0.6 Severe nocturnal oxygen desaturation secondary to COPD. The patient is known to have chronic hypoxic respiratory failure maintained on oxygen 2 L/min nasal cannula at baseline Advanced COPD with an FEV1 of 25% Coronary artery disease Seizure disorder Hypothyroidism Hyperlipidemia Carotid artery stenosis Plan No need for CPAP therapy. Continue oxygen supplementation overnight at 2-/3 L/min nasal cannula. Optimize COPD. Treat comorbidities. No evidence of any significant sleep breathing disorder. The patient will be reassured.
== END ==
LOC: 3 N SLEEP 10:54
PROVIDERS: ATTEND Internal Medicine Critical Care Medicine
DX: G47.33 Obstructive sleep apnea (adult) (pediatric) (principal); G47.36 Sleep related hypoventilation in conditions classified elsewhere; J44.9 Chronic obstructive pulmonary disease, unspecified; J96.11 Chronic respiratory failure with hypoxia; I25.10 Atherosclerotic heart disease of native coronary artery without angina pectoris; G40.909 Epilepsy, unspecified, not intractable, without status epilepticus; E03.9 Hypothyroidism, unspecified; E78.5 Hyperlipidemia, unspecified; I65.29 Occlusion and stenosis of unspecified carotid artery; F17.200 Nicotine dependence, unspecified, uncomplicated; Z79.899 Other long term (current) drug therapy; Z79.890 Hormone replacement therapy; Z79.02 Long term (current) use of antithrombotics/antiplatelets

== ENCOUNTER 2023-09-30 18:34 | Emergency (ER) | payer MEDICARE ==
--- NOTE | 2023-09-30 19:27 | ED ---
General Adult HPI - General Chief complaint: Extremity Injury, Lower Stated complaint: Left leg pain Time Seen by Provider: 09/30/23 19:06 Source: patient, RN notes reviewed Mode of arrival: wheelchair Limitations: no limitations - History of Present Illness Initial comments: 63 year old female presents to the emergency department for evaluation of left lower extremity pain. Patient states that this pain woke her up last night in the middle of the night. She reports that since then she has had pain in her left calf and knee. She states it is worse with weight bearing. Denies any recent injury. Denies fever, chills, redness to the area. Denies chest pain, worsening shortness of breath. - Related Data Home Medications Medication Instructions Recorded Confirmed Escitalopram [Lexapro] 40 mg PO DAILY 11/28/17 06/30/23 Levothyroxine Sodium 200 mcg PO DAILY 08/20/20 06/30/23 Nitroglycerin Sl Tabs [Nitrostat] 0.4 mg SL Q5M PRN 08/20/20 06/30/23 Doxepin [SINEquan] 10 mg PO HS 02/25/22 06/30/23 Albuterol Sulfate [Albuterol 1 - 2 puff INHALATION RT-Q6H PRN 02/03/23 06/30/23 Sulfate Hfa] cloNIDine HCL [Catapres] 0.2 mg PO BID 02/03/23 06/30/23 levETIRAcetam [Keppra] 1,500 mg PO BID 02/03/23 06/30/23 Albuterol Nebulized [Ventolin 2.5 mg INHALATION RT-QID PRN 04/09/23 06/30/23 Nebulized] Gabapentin 800 mg PO TID 04/09/23 06/30/23 Midodrine HCl [ProAmantine] 2.5 mg PO BID 04/09/23 06/30/23 buprenorphine HCL [Subutex] 8 mg SL DAILY 04/09/23 06/30/23 Ibuprofen [Motrin] 800 mg PO TID PRN 06/30/23 06/30/23 Previous Rx's Medication Instructions Recorded Atorvastatin [Lipitor] 40 mg PO HS #30 tab 06/21/22 Clopidogrel [Plavix] 75 mg PO DAILY #90 tablet 10/28/22 Aspirin 81 mg PO DAILY tab 02/25/23 Doxycycline [Vibramycin] 100 mg PO BID 2 Days #4 cap 07/03/23 predniSONE 10 mg PO DIRECTED #40 tab 07/03/23 Ibuprofen [Motrin] 800 mg PO Q8HR PRN #30 tab 09/30/23 Lidocaine 5% Patch [Lidoderm 5% 1 patch TOPICAL DAILY #30 patch 09/30/23 Patch] Allergies Allergy/AdvReac Type Severity Reaction Status Date / Time No Known Allergies Allergy Verified 09/30/23 18:47 Review of Systems ROS Statement: Those systems with pertinent positive or pertinent negative responses have been documented in the HPI. ROS Other: All systems not noted in ROS Statement are negative. 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 carotid blockage, PAD, vertigo at times. Last Myocardial Infarction Date:: 06/2022 History of Any Multi-Drug Resistant Organisms: None Reported Past Surgical History: Heart Catheterization, Heart Catheterization With Stent, Hysterectomy, Joint Replacement, Orthopedic Surgery Additional Past Surgical History / Comment(s): RT ROTATOR CUFF REPAIR, R total knee, CYSTS REMOVED FROM UNDER ARMS AND HANDS, arch studies, L caratid endartectomy, 4 cardiac stents, several peripheral stents, 07/18/18 left subclavian stent, arch studies. Past Anesthesia/Blood Transfusion Reactions: No Reported Reaction Additional Past Anesthesia/Blood Transfusion Reaction / Comment(s): Pt states that she is unable to go under general anesthesia per her health information coder due to low functioning lungs. Pt has never received blood. Date of Last Stent Placement:: Nov 2017 Past Psychological History: Anxiety, Depression Smoking Status: Current every day smoker Past Alcohol Use History: None Reported Past Drug Use History: None Reported, Marijuana - Past Family History Mother Family Medical History: Cancer Sister(s) Family Medical History: Cancer General Exam Limitations: no limitations General appearance: alert, in no apparent distress Head exam: Present: atraumatic, normocephalic, normal inspection Eye exam: Present: normal appearance, PERRL, EOMI. Absent: scleral icterus, conjunctival injection, periorbital swelling Respiratory exam: Present: wheezes. Absent: respiratory distress, rales, rhonchi, stridor Cardiovascular Exam: Present: regular rate, normal rhythm, normal heart sounds. Absent: systolic murmur, diastolic murmur, rubs, gallop, clicks Extremities exam: Present: full ROM, normal capillary refill, calf tenderness. Absent: tenderness, pedal edema, joint swelling Neurological exam: Present: alert, oriented X3 Psychiatric exam: Present: normal affect, normal mood Skin exam: Present: warm, dry, intact, normal color. Absent: rash Course Vital Signs 09/30/23 09/30/23 09/30/23 18:43 19:42 21:49 Temperature 98 F 98.6 F Pulse Rate 20 L 78 76 Respiratory 18 16 Rate Blood Pressure 98/61 105/57 O2 Sat by Pulse 96 95 Oximetry 09/30/23 22:49 Temperature Pulse Rate 68 Respiratory 16 Rate Blood Pressure 124/69 O2 Sat by Pulse 98 Oximetry Medical Decision Making - Medical Decision Making Was pt. sent in by a medical professional or institution (, PA, RIGGING MAN, urgent care, hospital, or [place] health care facility...) When possible be specific @ -No Did you speak to anyone other than the patient for history (EMS, parent, family, police, friend...)? What history was obtained from this source @ -No Did you review nursing and triage notes (agree or disagree)? Why? @ -I reviewed and agree with nursing and triage notes Were old charts reviewed (outside hosp., previous admission, EMS record, old EKG, old radiological studies, urgent care reports/EKG's, [place] health care facility records)? Report findings @ -No old charts were reviewed Differential Diagnosis (chest pain, altered mental status, abdominal pain women, abdominal pain men, vaginal bleeding, weakness, fever, dyspnea, syncope, headache, dizziness, GI bleed, back pain, seizure, CVA, palpatations, mental health, musculoskeletal)? @ -Differential Musculoskeletal Muscular strain, contusion, ligament sprain, fracture, arthritis, septic arthritis, bursitis, cellulitis, muscle spasm, nerve compression, DVT, arterial occlusion, herpes zoster, electrolyte abnormality, tumor.... This is not meant to be in all inclusive list EKG interpreted by me (3pts min.). @ -None X-rays interpreted by me (1pt min.). @ -XR of the left tib fib shows severe degenerative changes of the knee secondary to remote tibial plateau injury CT interpreted by me (1pt min.). @ -None done U/S interpreted by me (1pt. min.). @ -US of left lower extremity shows no evidence of DVT What testing was considered but not performed or refused? (CT, X-rays, U/S, labs)? Why? @ -None What meds were considered but not given or refused? Why? @ -None Did you discuss the management of the patient with other professionals (professionals i.e. DrGelacio, PA, RIGGING MAN, lab, RT, psych nurse, adoption social worker, operator specialist communications, teacher, soil science technical officer, case resolution specialist)? Give summary @ -No Was smoking cessation discussed for >3mins.? @ -No Was critical care preformed (if so, how long)? @ -No Were there social determinants of health that impacted care today? How? (Home lessness, low income, unemployed, alcoholism, drug addiction, transportation, low edu. Level, literacy, decrease access to med. care, fpc, rehab)? @ -No Was there de-escalation of care discussed even if they declined (Discuss DNR or withdrawal of care, Hospice)? DNR status @ -No What co-morbidities impacted this encounter? (DM, HTN, Smoking, COPD, CAD, Cancer, CVA, ARF, Chemo, Hep., AIDS, mental health diagnosis, sleep apnea, morbid obesity)? @ -None Was patient admitted / discharged? Hospital course, mention meds given and route, prescriptions, significant lab abnormalities, going to OR and other pertinent info. @ -Discharged. Patient presented to the emergency department for evaluation of left leg pain. Distal NVI. No overlying skin changes. Lower extremity ultrasound obtained which reveals no evidence of DVT. XR obtained shows severe degenerative changes secondary to remote tibial plateau injury. Patient is able to ambulate, declines medication for pain control. She will be discharged home with orthopedic follow up. She is understanding and agreeable with plan. Patient stable at time of discharge. Case discussed with Dr. Cabrera Undiagnosed new problem with uncertain prognosis? @ -No Drug Therapy requiring intensive monitoring for toxicity (Heparin, Nitro, Insulin, Cardizem)? @ -No Were any procedures done? @ -No Diagnosis/symptom? @ -Leg pain Acute, or Chronic, or Acute on Chronic? @ -Acute Uncomplicated (without systemic symptoms) or Complicated (systemic symptoms)? @ -Uncomplicated Side effects of treatment? @ -No Exacerbation, Progression, or Severe Exacerbation? @ -No Poses a threat to life or bodily function? How? (Chest pain, USA, VT, pneumonia, PE, COPD, DKA, ARF, appy, cholecystitis, CVA, Diverticulitis, Homicidal, Suicidal, threat to staff... and all critical care pts) @ -No Disposition Clinical Impression: Osteoarthritis, Knee pain Disposition: HOME SELF-CARE Condition: Stable Instructions (If sedation given, give patient instructions): Knee Pain (ED) Additional Instructions: Please follow up with your primary care provider and orthopedics. Return to the emergency department for new or worsening symptoms. Prescriptions: Lidocaine 5% Patch [Lidoderm 5% Patch] 1 patch TOPICAL DAILY #30 patch Ibuprofen [Motrin] 800 mg PO Q8HR PRN #30 tab PRN Reason: Pain Is patient prescribed a controlled substance at d/c from ED?: No Referrals: Jose F Mcwilliams MD [Primary Care Provider] - 1-2 days
--- NOTE | 2023-09-30 20:57 | US ---
EXAMINATION TYPE: US venous doppler duplex LE LT DATE OF EXAM: 09/30/2023 7:20 PM COMPARISON: NONE CLINICAL INDICATION: Female, 63 years old with history of pain, swelling; Pain and swelling. Patient is on Plavix. SIDE PERFORMED: Left TECHNIQUE: The lower extremity deep venous system is examined utilizing real time linear array sonog ken with graded compression, doppler sonography and color-flow sonography. VESSELS IMAGED: Common Femoral Vein Deep Femoral Vein Greater Saphenous Vein * Femoral Vein Popliteal Vein Small Saphenous Vein * Proximal Calf Veins (* superficial vessels) Left Leg: No evidence of DVT. IMPRESSION: No sonographic evidence for DVT.
[2023-09-30 21:50] VITALS: RESP 16; TEMP 98.6
--- NOTE | 2023-09-30 22:00 | XR ---
INDICATION: Patient age:Female; 63 years old; Reason for study: Pain and swelling. Chronic knee pain. COMPARISON: Left knee radiograph 10/14/2021, 09/14/2021, 08/21/2021. TECHNIQUE: The left tibia/fibula was examined in AP and lateral projections. FINDINGS: Chronic left tibial plateau fracture is redemonstrated with significant degenerative and sclerotic ch anges surrounding the left tibia and knee likely representing sequela from previous fracture. Left ti bial plateau fracture can be appreciated on the seventh 10/14/2021 radiograph in reference. There is m ild surrounding soft tissue swelling. IMPRESSION: Significant degenerative and sclerotic changes of the left knee and tibia are appreciated which is li nico related to sequela from remote left tibial plateau fracture however correlation with outpatient left knee MRI with IV contrast is recommended to rule out any concomitant infiltrative or underlying neoplastic process.
[2023-09-30 22:51] VITALS: BP 124/69; PULSE 68
== END 2023-09-30 22:49 | disposition home or self-care (01) ==
LOC: EC 18:34
DX: M17.12 Unilateral primary osteoarthritis, left knee (principal); F17.200 Nicotine dependence, unspecified, uncomplicated
CPT/HCPCS: 99284

== ENCOUNTER 2023-11-24 18:21 | Observation (INO) | payer MEDICARE ==
[2023-11-24 19:18] LABS: Anisocytosis Slight; Basophils # (A) 0.1 k/uL (0-0.2); Basophils % (A) 1 %; Eosinophils # (A) 0.3 k/uL (0-0.7); Eosinophils % (A) 2 %; HCT 46.4 % (34.0-46.0); HGB 14.9 gm/dL (11.4-16.0); Hypochromasia Moderate; Lymphocytes # (A) 3.4 k/uL (1.0-4.8); Lymphocytes % (A) 25 %; MCH 31.6 pg (25.0-35.0); MCV 98.6 fL (80.0-100.0); Macrocytosis Slight; Mean Platelet Volume 7.3; Monocytes # (A) 0.6 k/uL (0-1.0); Monocytes % (A) 4 %; Neutrophils # (A) 9.1 k/uL (1.3-7.7); Neutrophils % (A) 67 %; Platelet Count 288 k/uL (150-450); RDW 18.5 % (11.5-15.5); WBC 13.6 k/uL (3.8-10.6)
--- NOTE | 2023-11-24 19:42 | ED ---
General Adult HPI - General Chief complaint: Chest Pain Stated complaint: chest pain/L arm numbness Time Seen by Provider: 11/24/23 18:32 Source: patient Mode of arrival: wheelchair Limitations: no limitations - History of Present Illness Initial comments: 63-year-old female with past medical history of coronary disease with several stents, carotid disease, COPD who presents to the emergency department reporting chest pain. States it started around 530 when she was sitting at home. Describes it as a sharp pressure sensation which went straight through to her back. Also had numbness to her left arm. She did take a nitro tablet and pain alleviated shortly afterwards. Lasted for approximately 45 minutes. She denies any associated nausea, vomiting or diaphoresis. No fevers, chills or cough. Denies any numbness or tingling into her legs. Patient follows with Dr. Vale. Last heart cath was earlier this year. She did not take an aspirin yet today. She does take Plavix and is compliant. No other alleviating, precipitating or modifying factors - Related Data Home Medications Medication Instructions Recorded Confirmed Escitalopram [Lexapro] 40 mg PO DAILY 11/28/17 06/30/23 Levothyroxine Sodium 200 mcg PO DAILY 08/20/20 06/30/23 Nitroglycerin Sl Tabs [Nitrostat] 0.4 mg SL Q5M PRN 08/20/20 06/30/23 Doxepin [SINEquan] 10 mg PO HS 02/25/22 06/30/23 Albuterol Sulfate [Albuterol 1 - 2 puff INHALATION RT-Q6H PRN 02/03/23 06/30/23 Sulfate Hfa] cloNIDine HCL [Catapres] 0.2 mg PO BID 02/03/23 06/30/23 levETIRAcetam [Keppra] 1,500 mg PO BID 02/03/23 06/30/23 Albuterol Nebulized [Ventolin 2.5 mg INHALATION RT-QID PRN 04/09/23 06/30/23 Nebulized] Gabapentin 800 mg PO TID 04/09/23 06/30/23 Midodrine HCl [ProAmantine] 2.5 mg PO BID 04/09/23 06/30/23 buprenorphine HCL [Subutex] 8 mg SL DAILY 04/09/23 06/30/23 Ibuprofen [Motrin] 800 mg PO TID PRN 06/30/23 06/30/23 oxyCODONE HCL/ACETAMINOPHEN TID PRN 11/24/23 [oxyCODONE HCL/ACETAMINOPHEN 5-325] Previous Rx's Medication Instructions Recorded Atorvastatin [Lipitor] 40 mg PO HS #30 tab 06/21/22 Clopidogrel [Plavix] 75 mg PO DAILY #90 tablet 10/28/22 Aspirin 81 mg PO DAILY tab 02/25/23 Doxycycline [Vibramycin] 100 mg PO BID 2 Days #4 cap 07/03/23 predniSONE 10 mg PO DIRECTED #40 tab 07/03/23 Ibuprofen [Motrin] 800 mg PO Q8HR PRN #30 tab 09/30/23 Lidocaine 5% Patch [Lidoderm 5% 1 patch TOPICAL DAILY #30 patch 09/30/23 Patch] Allergies Allergy/AdvReac Type Severity Reaction Status Date / Time No Known Allergies Allergy Verified 11/24/23 18:28 Review of Systems ROS Statement: Those systems with pertinent positive or pertinent negative responses have been documented in the HPI. ROS Other: All systems not noted in ROS Statement are negative. Past Medical History Past Medical History: Asthma, Coronary Artery Disease (CAD), Chest Pain / Angina, COPD, GERD/Reflux, Hyperlipidemia, Hypertension, Myocardial Infarction ([place]), Respiratory Disorder, Seizure Disorder, Thyroid Disorder, Vascular Disorder Additional Past Medical History / Comment(s): PRN oxygen use, 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 carotid blockage, PAD, vertigo at times. Last Myocardial Infarction Date:: 06/2022 History of Any Multi-Drug Resistant Organisms: None Reported Past Surgical History: Heart Catheterization, Heart Catheterization With Stent, Hysterectomy, Joint Replacement, Orthopedic Surgery Additional Past Surgical History / Comment(s): RT ROTATOR CUFF REPAIR, R total knee, CYSTS REMOVED FROM UNDER ARMS AND HANDS, arch studies, L caratid endartectomy, 4 cardiac stents, several peripheral stents, 07/18/18 left subclavian stent, arch studies. 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 Pt has never received blood. Date of Last Stent Placement:: Nov 2017 Past Psychological History: Anxiety, Depression Smoking Status: Current every day smoker Past Alcohol Use History: None Reported Past Drug Use History: None Reported, Marijuana - Past Family History Mother Family Medical History: Cancer Sister(s) Family Medical History: Cancer General Exam Limitations: no limitations General appearance: alert, in no apparent distress Head exam: Present: atraumatic, normocephalic, normal inspection Eye exam: Present: normal appearance, PERRL, EOMI. Absent: scleral icterus, conjunctival injection, periorbital swelling ENT exam: Present: normal exam, mucous membranes moist Neck exam: Present: normal inspection. Absent: tenderness, meningismus, lymphadenopathy Respiratory exam: Present: normal lung sounds bilaterally. Absent: respiratory distress, wheezes, rales, rhonchi, stridor Cardiovascular Exam: Present: regular rate, normal rhythm, normal heart sounds. Absent: systolic murmur, diastolic murmur, rubs, gallop, clicks GI/Abdominal exam: Present: soft, normal bowel sounds. Absent: distended, tenderness, guarding, rebound, rigid Extremities exam: Present: normal inspection, full ROM, normal capillary refill. Absent: tenderness, pedal edema, joint swelling, calf tenderness Back exam: Present: normal inspection Neurological exam: Present: alert, oriented X3, CN II-XII intact Psychiatric exam: Present: normal affect, normal mood Skin exam: Present: warm, dry, intact, normal color. Absent: rash Course Vital Signs 11/24/23 11/24/23 11/24/23 18:26 20:00 21:50 Temperature 98.0 F Pulse Rate 71 78 96 Pulse Rate [ Wet Pour Supervisor ] Respiratory 18 16 24 Rate Blood Pressure 80/54 128/56 110/75 Blood Pressure [Left Arm] O2 Sat by Pulse 96 96 96 Oximetry 11/24/23 23:09 Temperature Pulse Rate Pulse Rate [ 96 Wet Pour Supervisor ] Respiratory 20 Rate Blood Pressure Blood Pressure 115/91 [Left Arm] O2 Sat by Pulse 95 Oximetry Medical Decision Making - Medical Decision Making Was pt. sent in by a medical professional or institution (, PA, INSPECTOR TUBES, urgent care, hospital, or group home...) When possible be specific @ -No Did you speak to anyone other than the patient for history (EMS, parent, family, police, friend...)? What history was obtained from this source @ -Patient's daughter helps provide history Did you review nursing and triage notes (agree or disagree)? Why? @ -I reviewed and agree with nursing and triage notes Were old charts reviewed (outside hosp., previous admission, EMS record, old EKG, old radiological studies, urgent care reports/EKG's, group home records)? Report findings @ -No old charts were reviewed Differential Diagnosis (chest pain, altered mental status, abdominal pain women, abdominal pain men, vaginal bleeding, weakness, fever, dyspnea, syncope, headache, dizziness, GI bleed, back pain, seizure, CVA, palpatations, mental health, musculoskeletal)? @ -Not applicable EKG interpreted by me (3pts min.). @ -yes and demonstrates sinus rhythm with rate of 77. [place] interval 161. QRS 110. QTc of 424. No acute ST segment elevations or depressions X-rays interpreted by me (1pt min.). @ -Yes and demonstrates no acute process CT interpreted by me (1pt min.). @ -None done U/S interpreted by me (1pt. min.). @ -None done What testing was considered but not performed or refused? (CT, X-rays, U/S, lab s)? Why? @ -None What meds were considered but not given or refused? Why? @ -None Did you discuss the management of the patient with other professionals (professionals i.e. , PA, INSPECTOR TUBES, lab, RT, psych nurse, geriatric social work professor, guide dog mobility instructor, teacher, business enterprise officer, keycase assembler)? Give summary @ -Spoke with Dr. Mcwilliams for admission Was smoking cessation discussed for >3mins.? @ -No Was critical care preformed (if so, how long)? @ -No Were there social determinants of health that impacted care today? How? (Homelessness, low income, unemployed, alcoholism, drug addiction, transportation, low edu. Level, literacy, decrease access to med. care, longterm, rehab)? @ -No Was there de-escalation of care discussed even if they declined (Discuss DNR or withdrawal of care, Hospice)? DNR status @ -No What co-morbidities impacted this encounter? (DM, HTN, Smoking, COPD, CAD, Cancer, CVA, ARF, Chemo, Hep., AIDS, mental health diagnosis, sleep apnea, morbid obesity)? @ -Coronary disease Was patient admitted / discharged? Hospital course, mention meds given and route, prescriptions, significant lab abnormalities, going to OR and other pertinent info. @ -Upon arrival patient seen and evaluated in room 2. Thorough history and physical exam was performed. IV access was established. Laboratory studies were conducted. Chest x-ray was performed. Troponin is negative. Due to patient's advanced cardiac history recommended admission. Patient was agreeable to this. Spoke with Dr. Mcwilliams who agreed to admit the patient Undiagnosed new problem with uncertain prognosis? @ -No Drug Therapy requiring intensive monitoring for toxicity (Heparin, Nitro, Insulin, Cardizem)? @ -No Were any procedures done? @ -No Diagnosis/symptom? @ -Acute chest pain, history of coronary disease Acute, or Chronic, or Acute on Chronic? @ -Acute Uncomplicated (without systemic symptoms) or Complicated (systemic symptoms)? @ -Complicated Side effects of treatment? @ -No Exacerbation, Progression, or Severe Exacerbation? @ -No Poses a threat to life or bodily function? How? (Chest pain, [place], [place], pneumonia, PE, COPD, DKA, ARF, appy, cholecystitis, CVA, Diverticulitis, Homicidal, Suicidal, threat to staff... and all critical care pts) @ -Yes this patient presents with chest pain and has history of coronary disease - Lab Data Result diagrams: 11/24/23 19:10 11/24/23 19:45 Lab Results 11/24/23 11/24/23 11/24/23 Range/Units 19:10 19:10 19:45 WBC 13.6 H (3.8-10.6) k/uL RBC 4.70 (3.80-5.40) m/uL Hgb 14.9 (11.4-16.0) gm/dL Hct 46.4 H (34.0-46.0) % MCV 98.6 (80.0-100.0) fL MCH 31.6 (25.0-35.0) pg MCHC 32.0 (31.0-37.0) g/dL RDW 18.5 H (11.5-15.5) % Plt Count 288 (150-450) k/uL MPV 7.3 Neutrophils % 67 % Lymphocytes % 25 % Monocytes % 4 % Eosinophils % 2 % Basophils % 1 % Neutrophils # 9.1 H (1.3-7.7) k/uL Lymphocytes # 3.4 (1.0-4.8) k/uL Monocytes # 0.6 (0-1.0) k/uL Eosinophils # 0.3 (0-0.7) k/uL Basophils # 0.1 (0-0.2) k/uL Hypochromasia Moderate Anisocytosis Slight Macrocytosis Slight PT (10.0-12.5) sec INR (<1.2) APTT (22.0-30.0) sec Sodium 139 (137-145) mmol/L Potassium 2.9 L (3.5-5.1) mmol/L Chloride 116 H (98-107) mmol/L Carbon Dioxide 15 L (22-30) mmol/L Anion Gap 8 mmol/L BUN 15 (7-17) mg/dL Creatinine 1.58 H (0.52-1.04) mg/dL Est GFR (CKD-EPI)AfAm 40 (>60 ml/min/1.73 sqM) Est GFR (CKD-EPI)NonAf 34 (>60 ml/min/1.73 sqM) Glucose 87 (74-99) mg/dL Calcium 8.9 (8.4-10.2) mg/dL Magnesium 2.5 H (1.6-2.3) mg/dL Total Bilirubin 0.3 (0.2-1.3) mg/dL AST 18 (14-36) U/L ALT 9 (4-34) U/L Alkaline Phosphatase 104 (38-126) U/L Troponin I <0.012 (0.000-0.034) ng/mL NT-Pro-B Natriuret Pep 700 pg/mL Total Protein 6.5 (6.3-8.2) g/dL Albumin 3.8 (3.5-5.0) g/dL 11/24/23 Range/Units 19:45 WBC (3.8-10.6) k/uL RBC (3.80-5.40) m/uL Hgb (11.4-16.0) gm/dL Hct (34.0-46.0) % MCV (80.0-100.0) fL MCH (25.0-35.0) pg MCHC (31.0-37.0) g/dL RDW (11.5-15.5) % Plt Count (150-450) k/uL MPV Neutrophils % % Lymphocytes % % Monocytes % % Eosinophils % % Basophils % % Neutrophils # (1.3-7.7) k/uL Lymphocytes # (1.0-4.8) k/uL Monocytes # (0-1.0) k/uL Eosinophils # (0-0.7) k/uL Basophils # (0-0.2) k/uL Hypochromasia Anisocytosis Macrocytosis PT 10.0 (10.0-12.5) sec INR 0.9 (<1.2) APTT 22.7 (22.0-30.0) sec Sodium (137-145) mmol/L Potassium (3.5-5.1) mmol/L Chloride (98-107) mmol/L Carbon Dioxide (22-30) mmol/L Anion Gap mmol/L BUN (7-17) mg/dL Creatinine (0.52-1.04) mg/dL Est GFR (CKD-EPI)AfAm (>60 ml/min/1.73 sqM) Est GFR (CKD-EPI)NonAf (>60 ml/min/1.73 sqM) Glucose (74-99) mg/dL Calcium (8.4-10.2) mg/dL Magnesium (1.6-2.3) mg/dL Total Bilirubin (0.2-1.3) mg/dL AST (14-36) U/L ALT (4-34) U/L Alkaline Phosphatase (38-126) U/L Troponin I (0.000-0.034) ng/mL NT-Pro-B Natriuret Pep pg/mL Total Protein (6.3-8.2) g/dL Albumin (3.5-5.0) g/dL Disposition Clinical Impression: Chest pain, Hypokalemia Disposition: ADMITTED IP TO THIS [facility] Condition: Stable Is patient prescribed a controlled substance at d/c from ED?: No Time of Disposition: 20:47 Decision to Admit Reason: Admit from EC Decision Date: 11/24/23 Decision Time: 20:47
[2023-11-24 20:21] LABS: INR 0.9 (<1.2); Partial Thromboplastin Time 22.7 sec (22.0-30.0)
[2023-11-24 20:27] LABS: ALT 9 U/L (4-34); AST 18 U/L (14-36); African American GFR (CKD) 40 (>60 ml/min/1.73 sqM); Albumin 3.8 g/dL (3.5-5.0); Alkaline Phosphatase 104 U/L (38-126); Anion Gap 8 mmol/L; Blood Urea Nitrogen 15 mg/dL (7-17); Calcium 8.9 mg/dL (8.4-10.2); Carbon Dioxide 15 mmol/L (22-30); Chloride 116 mmol/L (98-107); Glucose 87 mg/dL (74-99); Magnesium 2.5 mg/dL (1.6-2.3); Non-African American GFR(CKD) 34 (>60 ml/min/1.73 sqM); Potassium 2.9 mmol/L (3.5-5.1); Sodium 139 mmol/L (137-145); Total Bilirubin 0.3 mg/dL (0.2-1.3); Total Protein 6.5 g/dL (6.3-8.2)
[2023-11-24] MEDS: ASPIRIN 81 MG PO STA (20:28)
[2023-11-24 20:32] LABS: NT-Pro-B-Type Natriuretic Pept 700 pg/mL
[2023-11-24] MEDS ORDERED: ACETAMINOPHEN TAB 325 MG TAB PO PRN (20:50)
[2023-11-24] MEDS ORDERED: NALOXONE 0.4 MG/ML 1 ML VIAL IV PRN (20:50)
[2023-11-24] MEDS: POTASSIUM CHLORIDE 20 MEQ in WATER FOR INJECTION 1 100ML.BAG IVPB STA (21:02)
[2023-11-24] MEDS: POTASSIUM CHLORIDE ER 20 MEQ TAB.ER PO STA (21:02)
--- NOTE | 2023-11-24 21:48 | XR ---
EXAMINATION TYPE: XR chest 2V DATE OF EXAM: 11/24/2023 COMPARISON: 06/30/2023 INDICATION: Chest pain TECHNIQUE: Frontal and lateral views of the chest are obtained. FINDINGS: The heart size is normal. The pulmonary vasculature is normal. Some minimal linear opacity medial left base. Correlate for subsegmental atelectasis. This may be sli ghtly greater in the posterior region. Early pneumonia could be considered.. IMPRESSION: 1. Interval posterior left lower lobe infiltrate. Correlate for atelectasis. Early pneumonia should b e considered.
[2023-11-24] MEDS ORDERED: IBUPROFEN 800 MG TAB PO PRN (21:58)
[2023-11-24] MEDS ORDERED: ALBUTEROL NEBULIZED 2.5 MG/3 ML INHALATION PRN (21:58)
[2023-11-24] MEDS ORDERED: oxyCODONE-APAP 5-325MG 1 EACH TAB PO SCH (22:46)
[2023-11-24] MEDS: GABAPENTIN 400 MG CAP PO SCH (23:04)
[2023-11-24] MEDS: oxyCODONE-APAP 5-325MG 1 EACH TAB PO SCH (23:04)
[2023-11-24] MEDS: ATORVASTATIN 40 MG TAB PO SCH (23:04)
[2023-11-24] MEDS: DOXEPIN 10 MG CAP PO SCH (23:06)
[2023-11-24] MEDS: MIDODRINE 5 MG TAB PO SCH (23:19)
[2023-11-25 03:59] VITALS: RESP 18
[2023-11-25] MEDS: LEVOTHYROXINE 100 MCG TAB PO SCH (06:32)
[2023-11-25] MEDS ORDERED: Potassium Replacement Protocol 1 EACH MISC MISCELLANE PRN (08:03)
--- NOTE | 2023-11-25 08:19 | P.HPIM ---
History of Present Illness H&P Date: 11/25/23 Chief Complaint: Chest pain. This is a history and physical a 63-year-old white female well-known to my practice who has an underlying history of COPD opiate dependence. The patient was complaining of significant chest pain. No nausea no vomiting no diaphoresis but it was substernal with no radiation. Mild shortness of breath was noted. She is a longtime smoker of at least 64-plnw-nact. No fever no chills. Due to the patient's past history, the patient was admitted for appropriate rule out due to angina. Review of Systems Constitutional: Reports as per HPI Eyes: denies blurred vision, denies pain Ears, nose, mouth and throat: Denies headache, Denies sore throat Cardiovascular: Reports as per HPI, Reports chest pain, Reports shortness of breath Respiratory: Reports as per HPI, Reports cough, Reports respiratory infections Gastrointestinal: Denies abdominal pain, Denies diarrhea, Denies nausea, Denies vomiting Genitourinary: Denies dysuria, Denies hematuria Musculoskeletal: Denies myalgias Past Medical History Past Medical History: Asthma, Coronary Artery Disease (CAD), Chest Pain / Angina, COPD, GERD/Reflux, Hyperlipidemia, Hypertension, Myocardial Infarction ([place]), Respiratory Disorder, Seizure Disorder, Thyroid Disorder, Vascular Disorder Additional Past Medical History / Comment(s): PRN oxygen use, 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 carotid blockage, PAD, vertigo at times. Last Myocardial Infarction Date:: 06/2022 History of Any Multi-Drug Resistant Organisms: None Reported Past Surgical History: Heart Catheterization, Heart Catheterization With Stent, Hysterectomy, Joint Replacement, Orthopedic Surgery Additional Past Surgical History / Comment(s): RT ROTATOR CUFF REPAIR, R total knee, CYSTS REMOVED FROM UNDER ARMS AND HANDS, arch studies, L caratid e ndartectomy, 4 cardiac stents, several peripheral stents, 07/18/18 left subclavian stent, arch studies. 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 Pt has never received blood. Date of Last Stent Placement:: Nov 2017 Past Psychological History: Anxiety, Depression Smoking Status: Current every day smoker Past Alcohol Use History: None Reported Past Drug Use History: None Reported, Marijuana - Past Family History Mother Family Medical History: Cancer Sister(s) Family Medical History: Cancer Medications and Allergies Home Medications Medication Instructions Recorded Confirmed Type Escitalopram [Lexapro] 40 mg PO DAILY 11/28/17 11/25/23 History Levothyroxine Sodium 200 mcg PO DAILY 08/20/20 11/25/23 History Nitroglycerin Sl Tabs [Nitrostat] 0.4 mg SL Q5M PRN 08/20/20 11/25/23 History Doxepin [SINEquan] 10 mg PO HS 02/25/22 11/25/23 History Atorvastatin [Lipitor] 40 mg PO HS #30 tab 06/21/22 11/25/23 Rx Clopidogrel [Plavix] 75 mg PO DAILY #90 tablet 10/28/22 11/25/23 Rx Albuterol Sulfate [Albuterol 1 - 2 puff INHALATION RT-Q6H PRN 02/03/23 11/25/23 History Sulfate Hfa] cloNIDine HCL [Catapres] 0.2 mg PO HS 02/03/23 11/25/23 History levETIRAcetam [Keppra] 2,000 mg PO QAM 02/03/23 11/25/23 History Aspirin 81 mg PO DAILY tab 02/25/23 11/25/23 Rx Albuterol Nebulized [Ventolin 2.5 mg INHALATION RT-QID PRN 04/09/23 11/25/23 History Nebulized] Gabapentin 800 mg PO TID 04/09/23 11/25/23 History Midodrine HCl [ProAmantine] 2.5 mg PO AC-BID 04/09/23 11/25/23 History Ibuprofen [Motrin] 800 mg PO Q8HR PRN #30 tab 09/30/23 11/25/23 Rx oxyCODONE HCL/ACETAMINOPHEN 1 tab PO TID PRN 11/24/23 11/25/23 History [oxyCODONE HCL/ACETAMINOPHEN 5-325] Fluticasone/Umeclidin/Vilanter 1 puff INHALATION RT-DAILY 11/25/23 11/25/23 History [Trelegy Ellipta 200-62.5-25] levETIRAcetam [Keppra] 1,000 mg PO HS 11/25/23 11/25/23 History Allergies Allergy/AdvReac Type Severity Reaction Status Date / Time No Known Allergies Allergy Verified 11/25/23 07:58 Physical Exam Vitals: Vital Signs Temp Pulse Pulse Resp BP BP Pulse Ox 11/25/23 05:55 93/57 11/25/23 03:58 85 18 94/40 93 L 11/24/23 23:09 96 20 115/91 95 11/24/23 21:50 96 24 110/75 96 11/24/23 20:00 78 16 128/56 96 11/24/23 18:26 98.0 F 71 18 80/54 96 Intake and Output 11/24/23 11/25/23 11/25/23 22:59 06:59 14:59 Other: Voiding Method Toilet Diaper Weight 65.771 kg - Constitutional General appearance: no acute distress - EENT Eyes: EOMI - Neck Neck: no lymphadenopathy - Respiratory Respiratory: bilateral: diminished - Cardiovascular Rhythm: regular Heart sounds: normal: S1, S2 Abnormal Heart Sounds: no S3 Gallop - Gastrointestinal General gastrointestinal: soft, no tenderness - Integumentary Integumentary: no cyanotic Results CBC & Chem 7: 11/24/23 19:10 11/24/23 19:45 Labs: Abnormal Lab Results - Last 24 Hours (Table) 11/24/23 11/24/23 Range/Units 19:10 19:45 WBC 13.6 H (3.8-10.6) k/uL Hct 46.4 H (34.0-46.0) % RDW 18.5 H (11.5-15.5) % Neutrophils # 9.1 H (1.3-7.7) k/uL Potassium 2.9 L (3.5-5.1) mmol/L Chloride 116 H (98-107) mmol/L Carbon Dioxide 15 L (22-30) mmol/L Creatinine 1.58 H (0.52-1.04) mg/dL Magnesium 2.5 H (1.6-2.3) mg/dL Assessment and Plan (1) Chest pain Current Visit: Yes Status: Acute Code(s): R07.9 - CHEST PAIN, UNSPECIFIED SNOMED Code(s): 63437200 (2) Hypokalemia Current Visit: Yes Status: Acute Code(s): E87.6 - HYPOKALEMIA SNOMED C ode(s): 08896321 (3) History of carotid endarterectomy Current Visit: No Status: Acute Code(s): Z98.890 - OTHER SPECIFIED POSTPROCEDURAL STATES SNOMED Code(s): 715629973 (4) Hypothyroid Current Visit: No Status: Acute Code(s): E03.9 - HYPOTHYROIDISM, UNSPECIFIED SNOMED Code(s): 18369435 (5) Opiate dependence Current Visit: No Status: Acute Code(s): F11.20 - OPIOID DEPENDENCE, UNCOMPLICATED SNOMED Code(s): 27478968 (6) Tobacco abuse Current Visit: No Status: Acute Code(s): Z72.0 - TOBACCO USE SNOMED Code(s): 236692304 (7) Weakness Current Visit: No Status: Acute Code(s): R53.1 - WEAKNESS SNOMED Code(s): 86577241 Plan: Given history, we will go ahead and rule out for myocardial infarction. No enzymatic elevation at this time. Reconcile medications. The patient seems to be resting comfortably. The otherwise, the patient is full code Time with Patient: Greater than 30
[2023-11-25] MEDS: IPRATROPIUM 0.5 MG/2.5 ML NEBU INHALATION SCH (08:28)
[2023-11-25] MEDS: SYMBICORT 160-4.5 MCG INHALER INHALATION SCH (08:28)
[2023-11-25] MEDS: ESCITALOPRAM 20 MG TAB PO SCH (08:37)
[2023-11-25] MEDS: CLOPIDOGREL 75 MG TAB PO SCH (08:37)
[2023-11-25] MEDS: ASPIRIN 81 MG PO SCH (08:37)
[2023-11-25] MEDS: SODIUM CHLORIDE 0.9% 1,000 ML IV SCH (08:39)
[2023-11-25 08:47] LABS: Basophils # (A) 0.09 X 10*3/uL (0.00-0.10); Basophils % (A) 0.8 %; Eosinophils # (A) 0.27 X 10*3/uL (0.04-0.35); Eosinophils % (A) 2.3 %; HCT 43.2 % (37.2-46.3); HGB 13.6 g/dL (12.0-15.0); Lymphocytes # (A) 3.73 X 10*3/uL (0.90-5.00); Lymphocytes % (A) 32.1 %; MCH 31.6 pg (27.0-32.0); MCHC 31.5 g/dL (32.0-37.0); MCV 100.5 FL (80.0-97.0); Mean Platelet Volume 10.3 FL (9.5-12.2); NRBC Per 100 WBC 0 X 10*3/uL (0.00-0.01); Neutrophils % (A) 58.5 %; Platelet Count 247 X 10*3/uL (140-440); RDW 19.8 % (11.5-14.5); WBC 11.62 X 10*3/uL (4.50-10.00)
[2023-11-25] MEDS: levETIRAcetam 500 MG TAB PO SCH (08:49)
[2023-11-25 09:18] LABS: BUN/Creat Ratio 11.07 Ratio (12.00-20.00); Blood Urea Nitrogen 15.5 mg/dL (9.0-27.0); Carbon Dioxide 14.4 mmol/L (21.6-31.8); Chloride 116 mmol/L (96-109); Glucose 77 mg/dL (70-110); Potassium 3.5 mmol/L (3.5-5.5); Sodium 142 mmol/L (135-145)
--- NOTE | 2023-11-25 11:22 | P.CRDCN ---
History of Present Illness Consult date: 11/25/23 Reason for Consult (text): acute chest pain, hx ascad History of present illness: This is a 63-year-old female patient of Dr. Vale with past medical history of coronary artery disease with prior stenting of the LAD, hypertension, dyslipidemia, diabetes mellitus type 2, pulmonary hypertension, carotid atherosclerosis status post left carotid endarterectomy and stenting of the left common carotid artery, PAD with prior left subclavian stenting, tobacco use and dependence, COPD. We have been asked to evaluate the patient for acute chest pa in with history of CAD. Blood pressure 93/57, heart rate 85, pulse ox 93% on 2 L. EKG: Sinus rhythm with no acute ST-T wave changes. Chest x-ray: Left lower lobe infiltrate correlate for atelectasis. Early pneumonia should be considered. Laboratory studies: WBC 13.6, hemoglobin 14.9. Home cardiac medications: Aspirin 81 mg daily, Lipitor 40 mg at bedtime, Catapres 0.2 mg at bedtime, Plavix 75 mg daily, Nitrostat as needed. Echocardiogram performed 04/10/2023 revealed technically difficult study, normal LV function. Cardiac catheterization history: 09/20/2022 patient underwent cardiac catheteriz ation with patent stent to the LAD, mild to moderate disease involving the RCA, normal left-sided filling pressures. Lexiscan stress test on 08/20/2022 performed in the office revealed small anterior ischemia. Review Of Systems: At the time of my exam: CONSTITUTIONAL: Denies fever or chills. HEENT: Denies blurred vision, vision changes, or eye pain. Denies hemoptysis CARDIOVASCULAR: Denies chest pain. Denies orthopnea. Denies PND. Denies palpitations RESPIRATORY: Denies shortness of breath. GASTROINTESTINAL: Denies abdominal pain. Denies nausea or vomiting. HEMATOLOGIC: Denies bleeding disorders. GENITOURINARY: Denies any blood in urine. SKIN: Denies puritis. Denies rash. Physical examination: Gen: This is a 63-year-old female in no acute distress VS: reviewed HEENT: Head is atraumatic, normocephalic. Pupils equal, round. Sclerae is anicteric. NECK: Supple. No JVD. LUNGS: Clear to auscultation. No wheezes or rhonchi. No intercostal retractions. HEART: Regular rate and rhythm. No murmur. ABDOMEN: Soft No tenderness. EXTREMITIES: No pedal edema. No calf tenderness. NEUROLOGICAL: Patient is awake, alert and oriented x3. Assessment: Atypical chest pain Acute kidney injury Hypokalemia History of coronary artery disease with prior stenting of the LAD Hypertension Dyslipidemia Carotid atherosclerosis status post carotid endarterectomy and stenting of the left common carotid artery PAD with prior left subclavian stenting COPD Pulmonary hypertension Diabetes mellitus type 2 Tobacco use and dependence Plan: Resume patient's home cardiac medications Start 0.9 NS at 130cc/hr for 6 hours Repeat BMP at 2pm If renal function is stable, patient is cleared for discharge Patient may follow up with Dr. Vale in 1 week Smoking cessation, patient will be provided the [employer] quit line information at discharge. Thank you kindly for this consultation. Nurse practitioner note has been reviewed, I agree with documented findings and plan of care. Patient was seen and examined. Past Medical History Past Medical History: Asthma, Coronary Artery Disease (CAD), Chest Pain / Angina, COPD, GERD/Reflux, Hyperlipidemia, Hypertension, Myocardial Infarction (CO), Respiratory Disorder, Seizure Disorder, Thyroid Disorder, Vascular Disorder Additional Past Medical History / Comment(s): PRN oxygen use, NEUROPATHY TO B ILAT HANDS AND LEGS AND RT FOOT, last seizure 07/2022, 09/15/22 reports fx left knee/brace/painful, LATELY LOW BLOOD PRESSURE,. carotid blockage, PAD, vertigo at times. Last Myocardial Infarction Date:: 06/2022 History of Any Multi-Drug Resistant Organisms: None Reported Past Surgical History: Heart Catheterization, Heart Catheterization With Stent, Hysterectomy, Joint Replacement, Orthopedic Surgery Additional Past Surgical History / Comment(s): RT ROTATOR CUFF REPAIR, R total knee, CYSTS REMOVED FROM UNDER ARMS AND HANDS, arch studies, L caratid endartectomy, 4 cardiac stents, several peripheral stents, 07/18/18 left subclavian stent, arch studies. 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 Pt has never received blood. Date of Last Stent Placement:: Nov 2017 Past Psychological History: Anxiety, Depression Smoking Status: Current every day smoker Past Alcohol Use History: None Reported Past Drug Use History: None Reported, Marijuana - Past Family History Mother Family Medical History: Cancer Sister(s) Family Medical History: Cancer Medications and Allergies Home Medications Medication Instructions Recorded Confirmed Type Escitalopram [Lexapro] 40 mg PO DAILY 11/28/17 11/25/23 History Levothyroxine Sodium 200 mcg PO DAILY 08/20/20 11/25/23 History Nitroglycerin Sl Tabs [Nitrostat] 0.4 mg SL Q5M PRN 08/20/20 11/25/23 History Doxepin [SINEquan] 10 mg PO HS 02/25/22 11/25/23 History Atorvastatin [Lipitor] 40 mg PO HS #30 tab 06/21/22 11/25/23 Rx Clopidogrel [Plavix] 75 mg PO DAILY #90 tablet 10/28/22 11/25/23 Rx Albuterol Sulfate [Albuterol 1 - 2 puff INHALATION RT-Q6H PRN 02/03/23 11/25/23 History Sulfate Hfa] cloNIDine HCL [Catapres] 0.2 mg PO HS 02/03/23 11/25/23 History levETIRAcetam [Keppra] 2,000 mg PO QAM 02/03/23 11/25/23 History Aspirin 81 mg PO DAILY tab 02/25/23 11/25/23 Rx Albuterol Nebulized [Ventolin 2.5 mg INHALATION RT-QID PRN 04/09/23 11/25/23 History Nebulized] Gabapentin 800 mg PO TID 04/09/23 11/25/23 History Midodrine HCl [ProAmantine] 2.5 mg PO AC-BID 04/09/23 11/25/23 History Ibuprofen [Motrin] 800 mg PO Q8HR PRN #30 tab 09/30/23 11/25/23 Rx oxyCODONE HCL/ACETAMINOPHEN 1 tab PO TID PRN 11/24/23 11/25/23 History [oxyCODONE HCL/ACETAMINOPHEN 5-325] Fluticasone/Umeclidin/Vilanter 1 puff INHALATION RT-DAILY 11/25/23 11/25/23 History [Trelegy Ellipta 200-62.5-25] levETIRAcetam [Keppra] 1,000 mg PO HS 11/25/23 11/25/23 History Allergies Allergy/AdvReac Type Severity Reaction Status Date / Time No Known Allergies Allergy Verified 11/25/23 07:58 Physical Exam Vitals: Vital Signs Temp Pulse Pulse Resp BP BP Pulse Ox 11/25/23 05:55 93/57 11/25/23 03:58 85 18 94/40 93 L 11/24/23 23:09 96 20 115/91 95 11/24/23 21:50 96 24 110/75 96 11/24/23 20:00 78 16 128/56 96 11/24/23 18:26 98.0 F 71 18 80/54 96 Intake and Output 11/24/23 11/25/23 11/25/23 22:59 06:59 14:59 Other: Voiding Method Toilet Diaper Weight 65.771 kg Results 11/25/23 05:14 11/25/23 05:14 Cardiac Enzymes 11/24/23 11/24/23 Range/Units 19:10 19:45 AST 18 (14-36) U/L Troponin I <0.012 (0.000-0.034) ng/mL Coagulation 11/24/23 Range/Units 19:45 PT 10.0 (10.0-12.5) sec APTT 22.7 (22.0-30.0) sec CBC 11/24/23 Range/Units 19:10 WBC 13.6 H (3.8-10.6) k/uL RBC 4.70 (3.80-5.40) m/uL Hgb 14.9 (11.4-16.0) gm/dL Hct 46.4 H (34.0-46.0) % Plt Count 288 (150-450) k/uL Comprehensive Metabolic Panel 11/24/23 Range/Units 19:45 Sodium 139 (137-145) mmol/L Potassium 2.9 L (3.5-5.1) mmol/L Chloride 116 H (98-107) mmol/L Carbon Dioxide 15 L (22-30) mmol/L BUN 15 (7-17) mg/dL Creatinine 1.58 H (0.52-1.04) mg/dL Glucose 87 (74-99) mg/dL Calcium 8.9 (8.4-10.2) mg/dL AST 18 (14-36) U/L ALT 9 (4-34) U/L Alkaline Phosphatase 104 (38-126) U/L Total Protein 6.5 (6.3-8.2) g/dL Albumin 3.8 (3.5-5.0) g/dL Current Medications Generic Name Dose Route Start Last Admin Trade Name Freq PRN Reason Stop Dose Admin Acetaminophen 650 mg 11/24/23 20:50 Acetaminophen Tab 325 Mg Tab PO Q6HR PRN Mild Pain or Fever > 100.5 Albuterol Sulfate 2.5 mg 11/24/23 21:58 Albuterol Nebulized 2.5 Mg/3 Ml INHALATION RT-QID PRN Shortness Of Breath Aspirin 81 mg 11/25/23 09:00 Aspirin 81 Mg PO DAILY VINICIO Atorvastatin Calcium 40 mg 11/24/23 22:00 11/24/23 23:04 Atorvastatin 40 Mg Tab PO 40 mg HS VINICIO Administration Clopidogrel Bisulfate 75 mg 11/25/23 09:00 Clopidogrel 75 Mg Tab PO DAILY VINICIO Doxepin HCl 10 mg 11/24/23 22:15 11/25/23 00:33 Doxepin 10 Mg Cap PO 10 mg HS VINICIO Administration Escitalopram Oxalate 40 mg 11/25/23 09:00 Escitalopram 20 Mg Tab PO DAILY VINICIO Gabapentin 800 mg 11/24/23 22:15 11/24/23 23:04 Gabapentin 400 Mg Cap PO 800 mg TID VINICIO Administration Ibuprofen 800 mg 11/24/23 21:58 Ibuprofen 800 Mg Tab PO TID PRN Pain Levetiracetam 1,500 mg 11/24/23 22:15 11/24/23 23:04 Levetiracetam 750 Mg Tab PO 1,500 mg BID VINICIO Administration Levothyroxine Sodium 200 mcg 11/25/23 06:30 11/25/23 06:32 Levothyroxine 100 Mcg Tab PO 200 mcg DAILY@0630 VINICIO Administration Midodrine 2.5 mg 11/24/23 22:15 11/25/23 06:32 Midodrine 5 Mg Tab PO 2.5 mg AC-BID VINICIO Administration Naloxone HCl 0.2 mg 11/24/23 20:50 Naloxone 0.4 Mg/Ml 1 Ml Vial IV Q2M PRN Opioid Reversal Oxycodone/Acetaminophen 1 each 11/24/23 23:00 11/25/23 06:32 Oxycodone-Apap 5-325mg 1 Each Tab PO 1 each Q6HR VINICIO Administration Intake and Output 11/24/23 11/25/23 11/25/23 22:59 06:59 14:59 Other: Voiding Method Toilet Diaper Weight 65.771 kg 11/24/23 19:10 11/24/23 19:45
[2023-11-25] MEDS ORDERED: oxyCODONE-APAP 5-325MG 1 EACH TAB PO PRN (12:00)
[2023-11-25] MEDS: oxyCODONE-APAP 5-325MG 1 EACH TAB PO PRN (13:38)
[2023-11-25 14:44] VITALS: BP 93/52; TEMP 98.1
[2023-11-25 15:00] LABS: African American GFR (CKD) 56 (>60 ml/min/1.73 sqM); Anion Gap 7 mmol/L; Blood Urea Nitrogen 15 mg/dL (7-17); Calcium 8.2 mg/dL (8.4-10.2); Carbon Dioxide 15 mmol/L (22-30); Chloride 119 mmol/L (98-107); Glucose 129 mg/dL (74-99); Non-African American GFR(CKD) 48 (>60 ml/min/1.73 sqM); Potassium 3.5 mmol/L (3.5-5.1); Sodium 141 mmol/L (137-145)
[2023-11-25 15:20] VITALS: PULSE 76
--- NOTE | 2023-11-25 16:02 | P.DS ---
Providers Date of admission: 11/24/23 20:53 Attending physician: Jose F Mcwilliams Consults: 11/24/23 20:50 Consult Physician Urgent Consulting Provider: [facility] Consult Reason/Comments: acute chest pain, hx ascad Do you want consulting provider notified?: Yes Primary care physician: Jose F Mcwilliams - Discharge Diagnosis(es) (1) Chest pain Current Visit: Yes Status: Acute (2) Hypokalemia Current Visit: Yes Status: Acute Priority: Medium (3) History of carotid endarterectomy Current Visit: No Status: Acute (4) Hypothyroid Current Visit: No Status: Acute (5) Opiate dependence Current Visit: No Status: Acute (6) Tobacco abuse Current Visit: No Status: Acute (7) Weakness Current Visit: No Status: Acute Hospital Course: The patient is here essentially for significant chest pain. Enzymatic elevation was negative. She has no element of COPD and opiate dependency. The patient had cardiology consultation. IV hydration was given and the patient stabilized. She is tolerating diet and voiding without difficulties. She will be discharged in stable condition to follow-up with me in about 5-7 days Patient Condition at Discharge: Stable Plan - Discharge Summary New Discharge Prescriptions: Continue RX: Escitalopram [Lexapro] 40 mg PO DAILY RX: Nitroglycerin Sl Tabs [Nitrostat] 0.4 mg SL Q5M PRN PRN Reason: Chest Pain RX: Doxepin [SINEquan] 10 mg PO HS RX: levETIRAcetam [Keppra] 2,000 mg PO QAM RX: Albuterol Sulfate [Albuterol Sulfate Hfa] 1 - 2 puff INHALATION RT-Q6H PRN PRN Reason: Shortness Of Breath RX: Aspirin 81 mg PO DAILY tab RX: Midodrine HCl [ProAmantine] 2.5 mg PO AC-BID RX: Gabapentin 800 mg PO TID RX: Ibuprofen [Motrin] 800 mg PO Q8HR PRN #30 tab PRN Reason: Pain RX: oxyCODONE HCL/ACETAMINOPHEN [oxyCODONE HCL/ACETAMINOPHEN 5-325] 1 tab PO TID PRN PRN Reason: Pain RX: Fluticasone/Umeclidin/Vilanter [Trelegy Ellipta 200-62.5-25] 1 puff INHALATION RT-DAILY RX: Levothyroxine Sodium 200 mcg PO DAILY RX: Atorvastatin [Lipitor] 40 mg PO HS #30 tab RX: Clopidogrel [Plavix] 75 mg PO DAILY #90 tablet RX: cloNIDine HCL [Catapres] 0.2 mg PO HS RX: Albuterol Nebulized [Ventolin Nebulized] 2.5 mg INHALATION RT-QID PRN PRN Reason: Shortness Of Breath RX: levETIRAcetam [Keppra] 1,000 mg PO HS Discharge Medication List RX: Escitalopram [Lexapro] 40 mg PO DAILY 11/28/17 [History] RX: Levothyroxine Sodium 200 mcg PO DAILY 08/20/20 [History] RX: Nitroglycerin Sl Tabs [Nitrostat] 0.4 mg SL Q5M PRN 08/20/20 [History] RX: Doxepin [SINEquan] 10 mg PO HS 02/25/22 [History] RX: Atorvastatin [Lipitor] 40 mg PO HS #30 tab 06/21/22 [Rx] RX: Clopidogrel [Plavix] 75 mg PO DAILY #90 tablet 10/28/22 [Rx] RX: Albuterol Sulfate [Albuterol Sulfate Hfa] 1 - 2 puff INHALATION RT-Q6H PRN 02/03/23 [History] RX: cloNIDine HCL [Catapres] 0.2 mg PO HS 02/03/23 [History] RX: levETIRAcetam [Keppra] 2,000 mg PO QAM 02/03/23 [History] RX: Aspirin 81 mg PO DAILY tab 02/25/23 [Rx] RX: Albuterol Nebulized [Ventolin Nebulized] 2.5 mg INHALATION RT-QID PRN 04/09/23 [History] RX: Gabapentin 800 mg PO TID 04/09/23 [History] RX: Midodrine HCl [ProAmantine] 2.5 mg PO AC-BID 04/09/23 [History] RX: Ibuprofen [Motrin] 800 mg PO Q8HR PRN #30 tab 09/30/23 [Rx] RX: oxyCODONE HCL/ACETAMINOPHEN [oxyCODONE HCL/ACETAMINOPHEN 5-325] 1 tab PO TID PRN 11/24/23 [History] RX: Fluticasone/Umeclidin/Vilanter [Trelegy Ellipta 200-62.5-25] 1 puff INHALATION RT-DAILY 11/25/23 [History] RX: levETIRAcetam [Keppra] 1,000 mg PO HS 11/25/23 [History] Follow up Appointment(s)/Referral(s): Karthik Vale MD [STAFF PHYSICIAN] - 1 Week (follow up in two weeks with rachel for O.P. stress test) Jose F Mcwilliams MD [Primary Care Provider] - 1-2 days
[2023-11-25] MEDS ORDERED: levETIRAcetam 500 MG TAB PO SCH (21:00)
== END 2023-11-25 16:22 | disposition home or self-care (01) ==
LOC: EC 18:21 → 6NMEDSUR 20:53
PROVIDERS: ADMIT Family Medicine; ATTEND Family Medicine
DX: R07.89 Other chest pain (principal); N17.9 Acute kidney failure, unspecified; E87.6 Hypokalemia; E03.9 Hypothyroidism, unspecified; F11.20 Opioid dependence, uncomplicated; I25.10 Atherosclerotic heart disease of native coronary artery without angina pectoris; E78.5 Hyperlipidemia, unspecified; E11.9 Type 2 diabetes mellitus without complications; I65.29 Occlusion and stenosis of unspecified carotid artery; I27.20 Pulmonary hypertension, unspecified; I73.9 Peripheral vascular disease, unspecified; J44.89 Other specified chronic obstructive pulmonary disease; F17.210 Nicotine dependence, cigarettes, uncomplicated; Z79.890 Hormone replacement therapy; Z79.899 Other long term (current) drug therapy; Z79.02 Long term (current) use of antithrombotics/antiplatelets; Z79.82 Long term (current) use of aspirin; Z79.52 Long term (current) use of systemic steroids; Z95.828 Presence of other vascular implants and grafts; Z95.5 Presence of coronary angioplasty implant and graft
CPT/HCPCS: 36415; 71046; 80048; 80053; 83735; 83880; 84484; 85025; 85610; 85730; 93005; 94640; 96365; 96366; 99285

== ENCOUNTER 2023-12-02 17:42 | Inpatient (IN) | payer MEDICARE ==
--- NOTE | 2023-12-02 18:00 | ED ---
General Adult HPI - General Chief complaint: Shortness of Breath Stated complaint: ROLAND Time Seen by Provider: 12/02/23 17:45 Source: patient, family, RN notes reviewed, old records reviewed Mode of arrival: wheelchair Limitations: no limitations - History of Present Illness Initial comments: This is a 63-year-old female with a past medical history for severe COPD. Patient continues to smoke. Patient been having some difficulty breathing over the last couple days getting worse today to the point where she has become somewhat altered according to the daughter. Patient herself denies any chest pain or palpitations she is complaining of difficulty breathing. Patient [place] any recent fever chills or cough or patient has abdominal pain. Patient has back pain. - Related Data Home Medications Medication Instructions Recorded Confirmed Escitalopram [Lexapro] 40 mg PO DAILY 11/28/17 12/02/23 Levothyroxine Sodium 200 mcg PO DAILY 08/20/20 12/02/23 Nitroglycerin Sl Tabs [Nitrostat] 0.4 mg SL Q5M PRN 08/20/20 12/02/23 Doxepin [SINEquan] 10 mg PO HS 02/25/22 12/02/23 Albuterol Sulfate [Albuterol 1 - 2 puff INHALATION RT-Q6H PRN 02/03/23 12/02/23 Sulfate Hfa] cloNIDine HCL [Catapres] 0.2 mg PO HS 02/03/23 12/02/23 levETIRAcetam [Keppra] 2,000 mg PO DAILY 02/03/23 12/02/23 Albuterol Nebulized [Ventolin 2.5 mg INHALATION RT-QID PRN 04/09/23 12/02/23 Nebulized] Gabapentin 800 mg PO TID 04/09/23 12/02/23 Midodrine HCl [ProAmantine] 2.5 mg PO AC-BID 04/09/23 12/02/23 oxyCODONE HCL/ACETAMINOPHEN 1 tab PO TID PRN 11/24/23 12/02/23 [oxyCODONE HCL/ACETAMINOPHEN 5-325] Fluticasone/Umeclidin/Vilanter 1 puff INHALATION RT-DAILY 11/25/23 12/02/23 [Trelegy Ellipta 200-62.5-25] levETIRAcetam [Keppra] 1,000 mg PO HS 11/25/23 12/02/23 buprenorphine HCL [Subutex] 8 mg SL BID 12/02/23 12/02/23 Previous Rx's Medication Instructions Recorded Atorvastatin [Lipitor] 40 mg PO HS #30 tab 06/21/22 Clopidogrel [Plavix] 75 mg PO DAILY #90 tablet 10/28/22 Aspirin 81 mg PO DAILY tab 02/25/23 Ibuprofen [Motrin] 800 mg PO Q8HR PRN #30 tab 09/30/23 Allergies Allergy/AdvReac Type Severity Reaction Status Date / Time No Known Allergies Allergy Verified 12/02/23 19:54 Review of Systems ROS Statement: Those systems with pertinent positive or pertinent negative responses have been documented in the HPI. ROS Other: All systems not noted in ROS Statement are negative. 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 carotid blockage, PAD, vertigo at times. Last Myocardial Infarction Date:: 06/2022 History of Any Multi-Drug Resistant Organisms: None Reported Past Surgical History: Heart Catheterization, Heart Catheterization With Stent, Hysterectomy, Joint Replacement, Orthopedic Surgery Additional Past Surgical History / Comment(s): RT ROTATOR CUFF REPAIR, R total knee, CYSTS REMOVED FROM UNDER ARMS AND HANDS, arch studies, L caratid endartectomy, 4 cardiac stents, several peripheral stents, 07/18/18 left subclavian stent, arch studies. Past Anesthesia/Blood Transfusion Reactions: No Reported Reaction Additional Past Anesthesia/Blood Transfusion Reaction / Comment(s): Pt states that she is unable to go under general anesthesia per her steward/stewardess tourist class due to low functioning lungs. Pt has never received blood. Date of Last Stent Placement:: Nov 2017 Past Psychological History: Anxiety, Depression Smoking Status: Current every day smoker Past Alcohol Use History: None Reported Past Drug Use History: None Reported, Marijuana - Past Family History Mother Family Medical History: Cancer Sister(s) Family Medical History: Cancer General Exam - General Exam Comments Initial Comments: GENERAL: Patient is well-developed and well-nourished. Patient is nontoxic and well- hydrated and is in moderate distress. Patient is lethargic but is easily arousable ENT: Neck is soft and supple. No significant lymphadenopathy is noted. Oropharynx is clear. Moist mucous membranes. Neck has full range of motion without eliciting any pain. EYES: The sclera were anicteric and conjunctiva were pink and moist. Extraocular mo vements were intact and pupils were equal round and reactive to light. Eyelids were unremarkable. PULMONARY: Diminished breath sounds and diffuse expiratory wheezing CARDIOVASCULAR: There is a regular rate and rhythm without any murmurs gallops or rubs. ABDOMEN: Soft and nontender with normal bowel sounds. No palpable organomegaly was noted. There is no palpable pulsatile mass. SKIN: Skin is clear with no lesions or rashes and otherwise unremarkable. NEUROLOGIC: Patient is alert and oriented x3. Cranial nerves II through XII are grossly intact. Motor and sensory are also intact. Normal speech, volume and content. Symmetrical smile. MUSCULOSKELETAL: Normal extremities with adequate strength and full range of motion. No lower extremity swelling or edema. No calf tenderness. LYMPHATICS: No significant lymphadenopathy is noted PSYCHIATRIC: Normal psychiatric evaluation Limitations: no limitations Course Vital Signs 12/02/23 12/02/23 12/02/23 17:45 17:55 18:03 Temperature 98.0 F Pulse Rate 92 Respiratory 30 H Rate Blood Pressure 107/97 O2 Sat by Pulse 77 L Oximetry Fraction of 40 40 Inspired Oxygen (FIO2) 12/02/23 12/02/23 12/02/23 18:32 18:50 19:07 Temperature Pulse Rate 74 80 Respiratory Rate Blood Pressure O2 Sat by Pulse Oximetry Fraction of 40 Inspired Oxygen (FIO2) 12/02/23 19:29 Temperature Pulse Rate 80 Respiratory 16 Rate Blood Pressure 117/87 O2 Sat by Pulse 97 Oximetry Fraction of Inspired Oxygen (FIO2) Medical Decision Making - Medical Decision Making EKG is interpreted by myself. EKG shows a sinus rhythm at 78 bpm parables 148 QRS 106 QT interval 349 QTc is 427. Patient's EKG shows no ST segment elevation or depression. Was pt. sent in by a medical professional or institution (, PA, MERGERS AND ACQUISITIONS MANAGER, urgent care, hospital, or residential...) When possible be specific @ -No Did you speak to anyone other than the patient for history (EMS, parent, family, police, friend...)? What history was obtained from this source @ -Daughter gets quite a bit of the history because patient is having such a h mena time breathing she is unable to Did you review nursing and triage notes (agree or disagree)? Why? @ -I reviewed and agree with nursing and triage notes Were old charts reviewed (outside hosp., previous admission, EMS record, old EKG, old radiological studies, urgent care reports/EKG's, residential records)? Report findings @ -No old charts were reviewed Differential Diagnosis? @ -Differential Dyspnea: Coronary syndrome, arrhythmia, tamponade, asthma, COPD, pulmonary embolism, pneumonia, pneumothorax, pulmonary effusion, anaphylaxis, diabetic ketoacidosis, flailed chest, pulmonary contusion, diaphragmatic rupture, anemia, neuromuscular, this is not meant to be an all-inclusive list. EKG interpreted by me (3pts min.). @ -As above X-rays interpreted by me (1pt min.). @ -Chest x-ray shows COPD CT interpreted by me (1pt min.). @ -None done U/S interpreted by me (1pt. min.). @ -None done What testing was considered but not performed or refused? (CT, X-rays, U/S, labs)? Why? @ -None What meds were considered but not given or refused? Why? @ -None Did you discuss the management of the patient with other professionals (professionals i.e. , PA, MERGERS AND ACQUISITIONS MANAGER, lab, RT, psych nurse, social work professor, quill buncher and sorter, teacher, probation and parole officer, case management director)? Give summary @ -I spoke with [facility] agreed to admit the patient admit the patient wrote admitting orders Was smoking cessation discussed for >3mins.? @ -No Was critical care preformed (if so, how long)? @ -35 minutes Were there social determinants of health that impacted care today? How? (Homelessness, low income, unemployed, alcoholism, drug addiction, transportation, low edu. Level, literacy, decrease access to med. care, [facility], rehab)? @ -No Was there de-escalation of care discussed even if they declined (Discuss DNR or withdrawal of care, Hospice)? DNR status @ -No What co-morbidities impacted this encounter? (DM, HTN, Smoking, COPD, CAD, Cancer, CVA, ARF, Chemo, Hep., AIDS, mental health diagnosis, sleep apnea, morbid obesity)? @ -None Was patient admitted / discharged? Hospital course, mention meds given and route, prescriptions, significant lab abnormalities, going to OR and other pertinent info. @ -Patient was given terbutaline multiple albuterol treatments steroids magnesium sulfate and 2 g of Rocephin. Patient's x-ray showed no acute abnormality. Patient was also placed on BiPAP immediately. With ICU and the patient will be going to the ICU with a consult to Dr. Thurman Undiagnosed new problem with uncertain prognosis? @ -No Drug Therapy requiring intensive monitoring for toxicity (Heparin, Nitro, Insulin, Cardizem)? @ -No Were any procedures done? @ -No Diagnosis/symptom? @ -Exacerbation of COPD Acute, or Chronic, or Acute on Chronic? @ -Acute Uncomplicated (without systemic symptoms) or Complicated (systemic symptoms)? @ -Complicated Side effects of treatment? @ -No Exacerbation, Progression, or Severe Exacerbation? @ -No Poses a threat to life or bodily function? How? (Chest pain, [place], [place], pneumonia, PE, COPD, DKA, ARF, appy, cholecystitis, CVA, Diverticulitis, Homicidal, Suicid al, threat to staff... and all critical care pts) @ -Yes this could lead to hypoxia and endorgan dysfunction - Lab Data Result diagrams: 12/02/23 17:53 12/02/23 17:53 Lab Results 12/02/23 12/02/23 12/02/23 Range/Units 17:53 17:53 17:53 WBC 10.3 (3.8-10.6) k/uL RBC 4.55 (3.80-5.40) m/uL Hgb 14.7 (11.4-16.0) gm/dL Hct 46.3 H (34.0-46.0) % MCV 101.7 H (80.0-100.0) fL MCH 32.4 (25.0-35.0) pg MCHC 31.8 (31.0-37.0) g/dL RDW 18.2 H (11.5-15.5) % Plt Count 297 (150-450) k/uL MPV 7.0 Neutrophils % 69 % Lymphocytes % 21 % Monocytes % 5 % Eosinophils % 4 % Basophils % 1 % Neutrophils # 7.1 (1.3-7.7) k/uL Lymphocytes # 2.1 (1.0-4.8) k/uL Monocytes # 0.5 (0-1.0) k/uL Eosinophils # 0.4 (0-0.7) k/uL Basophils # 0.1 (0-0.2) k/uL Hypochromasia Marked Anisocytosis Slight Macrocytosis Moderate PT 9.5 L (10.0-12.5) sec INR 0.8 (<1.2) APTT 24.6 (22.0-30.0) sec Sample Site ABG pH (7.35-7.45) ABG pCO2 (35-45) mmHg ABG pO2 (83-108) mmHg ABG HCO3 (21-25) mmol/L ABG Total CO2 (19-24) mmol/L ABG O2 Saturation (94-97) % ABG Base Excess mmol/L Juan Test Hemoglobin (11.4-16.0) gm/dL FiO2 % Sodium 141 (137-145) mmol/L Potassium 4.0 (3.5-5.1) mmol/L Chloride 110 H (98-107) mmol/L Carbon Dioxide 20 L (22-30) mmol/L Anion Gap 11 mmol/L BUN 15 (7-17) mg/dL Creatinine 1.37 H (0.52-1.04) mg/dL Est GFR (CKD-EPI)AfAm 47 (>60 ml/min/1.73 sqM) Est GFR (CKD-EPI)NonAf 41 (>60 ml/min/1.73 sqM) Glucose 119 H (74-99) mg/dL Plasma Lactic Acid Stepan (0.7-2.0) mmol/L Calcium 9.5 (8.4-10.2) mg/dL Magnesium 2.4 H (1.6-2.3) mg/dL Total Bilirubin 0.6 (0.2-1.3) mg/dL AST 36 (14-36) U/L ALT 14 (4-34) U/L Alkaline Phosphatase 99 (38-126) U/L Troponin I (0.000-0.034) ng/mL Total Protein 7.4 (6.3-8.2) g/dL Albumin 4.4 (3.5-5.0) g/dL 12/02/23 12/02/23 12/02/23 Range/Units 17:53 17:53 18:19 WBC (3.8-10.6) k/uL RBC (3.80-5.40) m/uL Hgb (11.4-16.0) gm/dL Hct (34.0-46.0) % MCV (80.0-100.0) fL MCH (25.0-35.0) pg MCHC (31.0-37.0) g/dL RDW (11.5-15.5) % Plt Count (150-450) k/uL MPV Neutrophils % % Lymphocytes % % Monocytes % % Eosinophils % % Basophils % % Neutrophils # (1.3-7.7) k/uL Lymphocytes # (1.0-4.8) k/uL Monocytes # (0-1.0) k/uL Eosinophils # (0-0.7) k/uL Basophils # (0-0.2) k/uL Hypochromasia Anisocytosis Macrocytosis PT (10.0-12.5) sec INR (<1.2) APTT (22.0-30.0) sec Sample Site lrad ABG pH 7.18 L* (7.35-7.45) ABG pCO2 56 H (35-45) mmHg ABG pO2 78 L (83-108) mmHg ABG HCO3 21 (21-25) mmol/L ABG Total CO2 23 (19-24) mmol/L ABG O2 Saturation 95.7 (94-97) % ABG Base Excess -8.0 mmol/L Juan Test Yes Hemoglobin 12.9 (11.4-16.0) gm/dL FiO2 40 % Sodium (137-145) mmol/L Potassium (3.5-5.1) mmol/L Chloride (98-107) mmol/L Carbon Dioxide (22-30) mmol/L Anion Gap mmol/L BUN (7-17) mg/dL Creatinine (0.52-1.04) mg/dL Est GFR (CKD-EPI)AfAm (>60 ml/min/1.73 sqM) Est GFR (CKD-EPI)NonAf (>60 ml/min/1.73 sqM) Glucose (74-99) mg/dL Plasma Lactic Acid Stepan 0.8 (0.7-2.0) mmol/L Calcium (8.4-10.2) mg/dL Magnesium (1.6-2.3) mg/dL Total Bilirubin (0.2-1.3) mg/dL AST (14-36) U/L ALT (4-34) U/L Alkaline Phosphatase (38-126) U/L Troponin I <0.012 (0.000-0.034) ng/mL Total Protein (6.3-8.2) g/dL Albumin (3.5-5.0) g/dL Critical Care Time Critical Care Time: Yes Total Critical Care Time: 35 Disposition Clinical Impression: Acute exacerbation of chronic obstructive pulmonary disease Disposition: ADMITTED IP TO THIS HOSP Referrals: None,Stated [REFERRING] - 1-2 days Time of Disposition: 20:24
[2023-12-02 18:02] LABS: Anisocytosis Slight; Basophils # (A) 0.1 k/uL (0-0.2); Basophils % (A) 1 %; Eosinophils # (A) 0.4 k/uL (0-0.7); Eosinophils % (A) 4 %; HCT 46.3 % (34.0-46.0); HGB 14.7 gm/dL (11.4-16.0); Hypochromasia Marked; Lymphocytes # (A) 2.1 k/uL (1.0-4.8); Lymphocytes % (A) 21 %; MCH 32.4 pg (25.0-35.0); MCHC 31.8 g/dL (31.0-37.0); MCV 101.7 fL (80.0-100.0); Macrocytosis Moderate; Monocytes # (A) 0.5 k/uL (0-1.0); Monocytes % (A) 5 %; Neutrophils # (A) 7.1 k/uL (1.3-7.7); Neutrophils % (A) 69 %; Platelet Count 297 k/uL (150-450); RBC 4.55 m/uL (3.80-5.40); RDW 18.2 % (11.5-15.5); WBC 10.3 k/uL (3.8-10.6)
[2023-12-02 18:11] LABS: INR 0.8 (<1.2); Partial Thromboplastin Time 24.6 sec (22.0-30.0); Prothrombin Time 9.5 sec (10.0-12.5)
[2023-12-02 18:15] LABS: ALT 14 U/L (4-34); African American GFR (CKD) 47 (>60 ml/min/1.73 sqM); Albumin 4.4 g/dL (3.5-5.0); Anion Gap 11 mmol/L; Blood Urea Nitrogen 15 mg/dL (7-17); Calcium 9.5 mg/dL (8.4-10.2); Carbon Dioxide 20 mmol/L (22-30); Chloride 110 mmol/L (98-107); Glucose 119 mg/dL (74-99); Non-African American GFR(CKD) 41 (>60 ml/min/1.73 sqM); Sodium 141 mmol/L (137-145); Total Bilirubin 0.6 mg/dL (0.2-1.3); Total Protein 7.4 g/dL (6.3-8.2)
[2023-12-02 18:17] LABS: AST 36 U/L (14-36); Alkaline Phosphatase 99 U/L (38-126); Magnesium 2.4 mg/dL (1.6-2.3)
[2023-12-02 18:24] LABS: ABG HCO3 21 mmol/L (21-25); ABG Oxygen Saturation 95.7 % (94-97); ABG PCO2 56 mmHg (35-45); ABG PO2 78 mmHg (83-108); ABG TCO2 23 mmol/L (19-24); Allen Test Performed? Yes
[2023-12-02 18:27] LABS: ABG PH 7.18 (7.35-7.45)
[2023-12-02] MEDS: ALBUTEROL NEBULIZED 2.5 MG/3 ML INHALATION STA (18:32)
[2023-12-02] MEDS: IPRATROPIUM 0.5 MG/2.5 ML NEBU INHALATION STA (18:32)
[2023-12-02] MEDS: methylPREDNISolone SOD SUCCI 125 MG/2 ML VIAL IV STA (19:14)
[2023-12-02] MEDS: SODIUM CHLORIDE 0.9% 500 ML 500 ML IV STA (19:17)
[2023-12-02] MEDS: MAGNESIUM SULFATE-D5W PMX 1 GM in DEXTROSE/WATER 1 100ML.BAG IVPB SCH (19:21)
[2023-12-02] MEDS: TERBUTALINE 1 MG/ML VIAL SQ STA (19:21)
[2023-12-02] MEDS ORDERED: NALOXONE 0.4 MG/ML 1 ML VIAL IV PRN (20:24)
[2023-12-02] MEDS ORDERED: IPRATROPIUM-ALBUTEROL 3 ML NEB INHALATION PRN (20:24)
--- NOTE | 2023-12-02 20:38 | CT ---
EXAMINATION TYPE: CT brain wo con CT DLP: 1168.4 mGycm, Automated exposure control for dose reduction was used. DATE OF EXAM: 12/02/2023 8:30 PM COMPARISON: CT head 02/03/2023. CLINICAL INDICATION:Female, 63 years old with history of Altered mental status TECHNIQUE: Brain: Axial CT images of the brain were obtained with coronal and sagittal reformats created and rev iewed. Contrast used: None. Oral contrast used: None. FINDINGS: Brain: Extra-axial spaces: No abnormal extra-axial fluid collections. Ventricular system: Dilatation in proportion to cerebral atrophy. Cerebral parenchyma: Cerebral atrophy. No acute intraparenchymal hemorrhage or mass effect. The hilton -white junction is well differentiated. Cerebellum: Unremarkable. Mass effect: No evidence of midline shift. Intracranial vasculature: unremarkable Soft tissues: Normal. Calvarium/osseous structures: No depressed skull fracture. Paranasal sinuses and mastoid air cells: Clear Visualized orbits: Right aphakia IMPRESSION: No acute intracranial process.
[2023-12-02] MEDS: SODIUM CHLORIDE 0.9% 1,000 ML IV ONE (20:47)
[2023-12-02] MEDS: cefTRIAXone IN SWFI 1,000 MG/10 ML SYRINGE IVP STA (20:48)
--- NOTE | 2023-12-02 21:27 | XR ---
EXAMINATION TYPE: XR chest 1V portable DATE OF EXAM: 12/02/2023 7:41 PM CLINICAL INDICATION:Female, 63 years old with history of difficulty breathing COMPARISON: Chest radiograph 11/24/2023 TECHNIQUE: XR chest 1V portable Frontal view of the chest. FINDINGS: There are hazy interstitial opacities seen bilaterally. No pneumothorax. The cardiomediastinal silhou ette is not enlarged. Incidental note of a left subclavian vascular stent. No acute osseous abnormali ties. IMPRESSION: Hazy interstitial opacities may relate to pulmonary congestion/edema versus developing infectious pro cess. Correlate with clinical evaluation.
[2023-12-02 22:19] LABS: Glucose,Whole Blood 128 mg/dL (70-110)
[2023-12-02] MEDS: SODIUM BICARB 8.4% 50 ML SYR (1 MEQ/ML) IV STA (22:44)
[2023-12-02] MEDS: SODIUM CHLORIDE 0.9% 1,000 ML IV SCH (22:47)
[2023-12-02] MEDS: NOREPINEPHRINE 4 MG in SODIUM CHLORIDE 0.9% 250 ML IV SCH (23:22)
[2023-12-02 23:40] LABS: Appearance,Urine Cloudy (Clear); Bacteria,Urine Few /hpf; Bilirubin,Urine Negative (Negative); Blood,Urine Trace (Negative); Color,Urine Yellow; Glucose,Urine (UA) Negative (Negative); Hyaline Casts,Urine 5 /lpf (0-2); Ketones,Urine Negative (Negative); Leukocyte Esterase,Urine Moderate (Negative); Mucus,Urine Rare /hpf; Nitrite,Urine Positive (Negative); Protein,Urine 2+ (Negative); RBC,Urine 1 /hpf (0-5); Specific Gravity,Urine 1.015 (1.001-1.035); Squamous Epithelial Cell,Urine 1 /hpf (0-4); Urobilinogen,Urine <2.0 mg/dL (<2.0); WBC,Urine 22 /hpf (0-5)
[2023-12-03] MEDS: methylPREDNISolone SOD SUCCI 125 MG/2 ML VIAL IV SCH (00:42)
[2023-12-03 05:00] LABS: Anisocytosis Slight; HCT 41.5 % (34.0-46.0); HGB 12.9 gm/dL (11.4-16.0); Hypochromasia Marked; MCH 32.4 pg (25.0-35.0); MCHC 31.2 g/dL (31.0-37.0); MCV 103.9 fL (80.0-100.0); Macrocytosis Marked; Mean Platelet Volume 7.8; Platelet Count 253 k/uL (150-450); RBC 3.99 m/uL (3.80-5.40); RDW 18.9 % (11.5-15.5); WBC 10.7 k/uL (3.8-10.6)
[2023-12-03 05:03] LABS: ABG Base Excess -7.3 mmol/L; ABG HCO3 21 mmol/L (21-25); ABG Oxygen Saturation 92.6 % (94-97); ABG PCO2 51 mmHg (35-45); ABG PH 7.22 (7.35-7.45); ABG PO2 65 mmHg (83-108); ABG TCO2 22 mmol/L (19-24); Allen Test Performed? Yes
[2023-12-03 05:04] LABS: African American GFR (CKD) 64 (>60 ml/min/1.73 sqM); Anion Gap 11 mmol/L; Blood Urea Nitrogen 12 mg/dL (7-17); Calcium 7.9 mg/dL (8.4-10.2); Carbon Dioxide 17 mmol/L (22-30); Chloride 113 mmol/L (98-107); Glucose 113 mg/dL (74-99); Magnesium 2.5 mg/dL (1.6-2.3); Non-African American GFR(CKD) 56 (>60 ml/min/1.73 sqM); Potassium 3.1 mmol/L (3.5-5.1); Sodium 141 mmol/L (137-145)
[2023-12-03] MEDS ORDERED: Potassium Replacement Protocol 1 EACH MISC MISCELLANE PRN (05:14)
[2023-12-03] MEDS: POTASSIUM CHLORIDE 10 MEQ in WATER FOR INJECTION 1 100ML.BAG IVPB SCH (06:09)
[2023-12-03 06:47] LABS: Glucose,Whole Blood 149 mg/dL (70-110)
[2023-12-03] MEDS: POTASSIUM CHLORIDE ER 20 MEQ TAB.ER PO STA (08:56)
[2023-12-03] MEDS: IPRATROPIUM-ALBUTEROL 3 ML NEB INHALATION SCH (09:21)
[2023-12-03] MEDS ORDERED: NITROGLYCERIN SL TABS 0.4 MG TAB SUBLINGUAL PRN (09:25)
[2023-12-03] MEDS: ESCITALOPRAM 20 MG TAB PO SCH (10:47)
[2023-12-03] MEDS: CLOPIDOGREL 75 MG TAB PO SCH (10:47)
[2023-12-03] MEDS: GABAPENTIN 400 MG CAP PO SCH (10:48)
[2023-12-03] MEDS: MIDODRINE 5 MG TAB PO SCH (10:48)
[2023-12-03] MEDS: levETIRAcetam 500 MG TAB PO SCH ×2 (10:49→19:48)
[2023-12-03] MEDS: NON FORMULARY DRUG (Buprenorphine Hcl [Subutex] 8 MG Tab.Subl) SUBLINGUAL SCH (10:50)
[2023-12-03] MEDS: ASPIRIN 81 MG PO SCH (10:52)
[2023-12-03 11:37] LABS: Glucose,Whole Blood 279 mg/dL (70-110)
[2023-12-03] MEDS: LEVOTHYROXINE 100 MCG TAB PO SCH (11:50)
--- NOTE | 2023-12-03 11:53 | P.CNPUL ---
History of Present Illness Consult date: 12/03/23 Requesting physician: Brian Gibson Reason for consult: COPD Chief complaint: Altered mental status and shortness of breath History of present illness: This is a 63-year-old female with known history of severe end-stage COPD, O2 dependent, maintained on multiple bronchodilators including DuoNeb, Trelegy, and albuterol. Patient is not prednisone dependent, had multiple admissions in the past with acute hypoxic and hypercapnic respiratory failure. This time the patient was brought into the ER with complaining of shortness of breath over the last few days, and daughter has been noticing altered mental status. ABG on her initial evaluation in the ER showed a pO2 of 78 pCO2 56 and pH of 7.18. Hence the patient was placed on BiPAP, mental status improved on BiPAP, nonetheless considering the patient was marginal, she was admitted to the ICU and this consult was initiated. The patient herself does not remember how she ended up in the ER, but according to the daughter her mental status worsens every time her pCO2 is above 50. Patient had previous similar admissions, FEV1 is normally in the range of 25%, DLCO is in the range of 23%. I evaluated this patient, and her mental status seems to be much better this morning remains on BiPAP, and will try to transition to nasal cannula as tolerated. Time patient is on bronchodilators and steroids. Review of Systems CONSTITUTIONAL: Denies any recent significant weight loss or weight gain. EYES: Denies change in vision. EARS, NOSE, MOUTH, THROAT: Denies headaches, denies sore throat. CARDIOVASCULAR: Denies chest pain, palpitations or syncopal episodes. RESPIRATORY: See HPI GASTROINTESTINAL: Denies change in appetite, abdominal pain, nausea and vomiting, or diarrhea GENITOURINARY: Denies hematuria, denies infections. MUSKULOSKELETAL: Denies pain, denies swelling. INTEGUMENTARY: Denies rash, denies eczema. NEUROLOGICAL: Denies recent memory loss, no recent seizure activity. PSYCHIATRIC: Denies anxiety, denies depression. HEMATOLOGIC/LYMPHATIC: Denies anemia, denies enlarged lymph node Past Medical History Past Medical History: Asthma, Coronary Artery Disease (CAD), Chest Pain / Angina, COPD, GERD/Reflux, Hyperlipidemia, Hypertension, Myocardial Infarction ([place]), Respiratory Disorder, Seizure Disorder, Thyroid Disorder, Vascular Disorder Additional Past Medical History / Comment(s): 2L oxygen use, 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 carotid blockage, PAD, vertigo at times. Last Myocardial Infarction Date:: 06/2022 History of Any Multi-Drug Resistant Organisms: None Reported Past Surgical History: Heart Catheterization, Heart Catheterization With Stent, Hysterectomy, Joint Replacement, Orthopedic Surgery Additional Past Surgical History / Comment(s): RT ROTATOR CUFF REPAIR, R total knee, CYSTS REMOVED FROM UNDER ARMS AND HANDS, arch studies, L caratid endartectomy, 4 cardiac stents, several peripheral stents, 07/18/18 left subclavian stent, arch studies. Past Anesthesia/Blood Transfusion Reactions: No Reported Reaction Additional Past Anesthesia/Blood Transfusion Reaction / Comment(s): Pt states that she is unable to go under general anesthesia per her morphologist due to low functioning lungs. Pt has never received blood. Date of Last Stent Placement:: Nov 2017 Past Psychological History: Anxiety, Depression Additional Psychological History / Comment(s): Pt resides with her boyfriend and puppy. Smoking Status: Current every day smoker Past Alcohol Use History: None Reported Additional Past Alcohol Use History / Comment(s): SMOKES 3-4 cig/day currently. Started smoking at age 11. Patient reports quiting 06/23/2023 Past Drug Use History: None Reported, Marijuana Additional Drug Use History / Comment(s): edibles occasionally, refrain for 24 h ours prior - Past Family History Mother Family Medical History: Cancer Sister(s) Family Medical History: Cancer Medications and Allergies Home Medications Medication Instructions Recorded Confirmed Type Escitalopram [Lexapro] 40 mg PO DAILY 11/28/17 12/02/23 History Levothyroxine Sodium 200 mcg PO DAILY 08/20/20 12/02/23 History Nitroglycerin Sl Tabs [Nitrostat] 0.4 mg SL Q5M PRN 08/20/20 12/02/23 History Doxepin [SINEquan] 10 mg PO HS 02/25/22 12/02/23 History Atorvastatin [Lipitor] 40 mg PO HS #30 tab 06/21/22 12/02/23 Rx Clopidogrel [Plavix] 75 mg PO DAILY #90 tablet 10/28/22 12/02/23 Rx Albuterol Sulfate [Albuterol 1 - 2 puff INHALATION RT-Q6H PRN 02/03/23 12/02/23 History Sulfate Hfa] cloNIDine HCL [Catapres] 0.2 mg PO HS 02/03/23 12/02/23 History levETIRAcetam [Keppra] 2,000 mg PO DAILY 02/03/23 12/02/23 History Aspirin 81 mg PO DAILY tab 02/25/23 12/02/23 Rx Albuterol Nebulized [Ventolin 2.5 mg INHALATION RT-QID PRN 04/09/23 12/02/23 History Nebulized] Gabapentin 800 mg PO TID 04/09/23 12/02/23 History Midodrine HCl [ProAmantine] 2.5 mg PO AC-BID 04/09/23 12/02/23 History Ibuprofen [Motrin] 800 mg PO Q8HR PRN #30 tab 09/30/23 12/02/23 Rx oxyCODONE HCL/ACETAMINOPHEN 1 tab PO TID PRN 11/24/23 12/02/23 History [oxyCODONE HCL/ACETAMINOPHEN 5-325] Fluticasone/Umeclidin/Vilanter 1 puff INHALATION RT-DAILY 11/25/23 12/02/23 History [Trelegy Ellipta 200-62.5-25] levETIRAcetam [Keppra] 1,000 mg PO HS 11/25/23 12/02/23 History buprenorphine HCL [Subutex] 8 mg SL BID 12/02/23 12/02/23 History Allergies Allergy/AdvReac Type Severity Reaction Status Date / Time No Known Allergies Allergy Verified 12/02/23 19:54 Physical Exam Vitals: Vital Signs Temp Pulse Resp BP Pulse Ox FiO2 12/03/23 08:00 40 12/03/23 07:00 88 9 L 121/46 98 12/03/23 06:45 87 17 114/102 96 12/03/23 06:30 82 13 77/52 95 12/03/23 06:15 82 10 L 107/59 96 12/03/23 06:00 84 11 L 124/87 92 L 12/03/23 05:45 85 14 108/65 94 L 12/03/23 05:15 89 21 96/60 90 L 12/03/23 05:00 86 10 L 104/60 92 L 12/03/23 04:45 87 13 97/57 95 12/03/23 04:30 83 15 106/51 95 12/03/23 04:15 83 9 L 109/43 96 12/03/23 04:00 80 22 103/62 95 12/03/23 03:45 80 14 102/49 97 12/03/23 03:39 40 12/03/23 03:30 80 18 114/65 96 12/03/23 03:15 83 11 L 101/63 97 12/03/23 03:00 80 12 107/51 96 12/03/23 02:45 84 16 113/56 95 12/03/23 02:30 84 14 106/48 94 L 12/03/23 02:15 80 22 95/35 95 12/03/23 02:00 83 14 110/57 94 L 12/03/23 01:45 82 8 L 113/68 96 12/03/23 01:30 85 13 111/56 96 12/03/23 01:15 82 31 H 97/48 97 12/03/23 01:00 83 30 H 81/48 96 12/03/23 00:45 82 16 81/44 97 12/03/23 00:30 86 13 101/34 97 12/03/23 00:15 85 11 L 97/38 99 12/03/23 00:06 85 11 L 97/38 98 12/03/23 00:00 97.6 F 85 9 L 103/90 98 40 12/02/23 23:45 82 12 99/49 99 12/02/23 23:30 81 8 L 74/35 98 12/02/23 23:22 40 12/02/23 23:15 82 8 L 82/42 99 12/02/23 23:00 84 7 L 92/64 98 12/02/23 22:45 81 7 L 75/41 98 12/02/23 22:30 97.3 F L 82 9 L 97/40 98 40 12/02/23 22:27 40 12/02/23 21:18 84 18 90/54 96 12/02/23 21:04 85 88/50 96 12/02/23 19:29 80 16 117/87 97 12/02/23 19:07 80 12/02/23 18:50 40 12/02/23 18:32 74 12/02/23 18:03 40 12/02/23 17:55 40 12/02/23 17:45 98.0 F 92 30 H 107/97 77 L Intake and Output 12/02/23 12/03/23 12/03/23 22:59 06:59 14:59 Intake Total 1028.159 320.586 Output Total 600 0 Balance 428.159 320.586 Intake: IV 1000 125 Sodium Chloride 0.9% 1, 1000 125 000 ml @ 125 mls/hr IV . Q8H VINICIO Rx#:[id number] Intake, IV Titration 28.159 195.586 Amount Norepinephrine 4 mg In 28.159 195.586 Sodium Chloride 0.9% 250 ml @ 0.03 MCG/KG/MIN 8. 295 mls/hr IV .Q24H VINICIO Rx#:[id number] Output: Urine 600 0 Other: Voiding Method Diaper External Catheter Weight 72.575 kg 72.2 kg GENERAL EXAM: 63-year-old female in no distress, on BiPAP. HEAD: Normocephalic and atraumatic EYES: Normal reaction of pupils, equal size. NOSE: Clear with pink turbinates. THROAT: No erythema or exudates. NECK: No masses, no JVD. CHEST: No chest wall deformity. LUNGS: Diminished breath sound bilaterally no crackles rhonchi or wheezes CVS: S1 and S2 normal with no audible murmur, regular rhythm. No extra heart sounds ABDOMEN: No hepatosplenomegaly, active bowel sounds, no guarding or rigidity. SKIN: No rashes CENTRAL NERVOUS SYSTEM: Alert oriented x 3 no gross focal deficit EXTREMITIES: There is no peripheral edema, clubbing, or cyanosis. Peripheral pulses are intact. Results - Laboratory Findings CBC and BMP: 12/03/23 03:43 12/03/23 03:43 ABG ABG pH 7.22 (7.35-7.45) L 12/03/23 04:08 ABG pCO2 51 mmHg (35-45) H 12/03/23 04:08 ABG pO2 65 mmHg (83-108) L 12/03/23 04:08 ABG O2 Saturation 92.6 % (94-97) L 12/03/23 04:08 PT/INR, D-dimer PT 9.5 sec (10.0-12.5) L 12/02/23 17:53 INR 0.8 (<1.2) 12/02/23 17:53 Abnormal lab findings: Abnormal Labs 12/02/23 12/02/23 12/02/23 17:53 17:53 17:53 WBC Hct 46.3 H MCV 101.7 H RDW 18.2 H Macrocytosis PT 9.5 L ABG pH ABG pCO2 ABG pO2 ABG O2 Saturation Potassium Chloride 110 H Carbon Dioxide 20 L Creatinine 1.37 H Glucose 119 H POC Glucose (mg/dL) Calcium Magnesium 2.4 H Urine Appearance Urine Protein Urine Blood Urine Nitrite Ur Leukocyte Esterase Urine WBC Urine WBC Clumps Urine Bacteria Hyaline Casts Urine Mucus 12/02/23 12/02/23 12/02/23 18:19 19:06 22:18 WBC Hct MCV RDW Macrocytosis PT ABG pH 7.18 L* ABG pCO2 56 H ABG pO2 78 L ABG O2 Saturation Potassium Chloride Carbon Dioxide Creatinine Glucose POC Glucose (mg/dL) 128 H Calcium Magnesium Urine Appearance Cloudy H Urine Protein 2+ H Urine Blood Trace H Urine Nitrite Positive H Ur Leukocyte Esterase Moderate H Urine WBC 22 H Urine WBC Clumps Moderate H Urine Bacteria Few H Hyaline Casts 5 H Urine Mucus Rare H 12/03/23 12/03/23 12/03/23 03:43 03:43 04:08 WBC 10.7 H Hct MCV 103.9 H RDW 18.9 H Macrocytosis Marked A PT ABG pH 7.22 L ABG pCO2 51 H ABG pO2 65 L ABG O2 Saturation 92.6 L Potassium 3.1 L Chloride 113 H Carbon Dioxide 17 L Creatinine 1.06 H Glucose 113 H POC Glucose (mg/dL) Calcium 7.9 L Magnesium 2.5 H Urine Appearance Urine Protein Urine Blood Urine Nitrite Ur Leukocyte Esterase Urine WBC Urine WBC Clumps Urine Bacteria Hyaline Casts Urine Mucus 12/03/23 06:45 WBC Hct MCV RDW Macrocytosis PT ABG pH ABG pCO2 ABG pO2 ABG O2 Saturation Potassium Chloride Carbon Dioxide Creatinine Glucose POC Glucose (mg/dL) 149 H Calcium Magnesium Urine Appearance Urine Protein Urine Blood Urine Nitrite Ur Leukocyte Esterase Urine WBC Urine WBC Clumps Urine Bacteria Hyaline Casts Urine Mucus - Diagnostic Findings Chest x-ray: image reviewed (Minimal pulmonary vascular congestion is noted) Assessment and Plan Assessment: Impression: Acute on chronic hypoxic and hypercapnic respiratory failure secondary to COPD Acute COPD exacerbation Acute CO2 narcosis and metabolic encephalopathy severe chronic obstructive pulmonary disease, with a baseline FEV1 25% of predicted, maintained on Trelegy on an outpatient basis Chronic ongoing tobacco dependence History of hyperlipidemia Coronary artery disease, with multiple previous coronary stents, most recent cardiac catheterization from 10/17/2022 showed patent stent to LAD. No other significant abnormalities other Carotid artery stenosis, status post left carotid stenting Hypothyroidism History of seizure disorder, considering ABG is reflecting a combined picture of acute respiratory and acute metabolic acidosis, will be considered whether the patient is intermittently having seizures causing her metabolic acidosis. No witnessed seizures while inpatient Recommendation: Continue present supportive care measures Continue BiPAP and alternate with nasal cannula as tolerated Continue bronchodilators/updrafts and continue Solu-Medrol, continue Trelegy patient will bring her own Trelegy from home Continue to monitor for any seizure activity Resume home meds including Keppra and levothyroxine Avoid narcotics as much as possible and sedatives Will continue to follow. Time with Patient: Greater than 30
[2023-12-03] MEDS ORDERED: DEXTROSE 50% SYRINGE 50 ML IVP PRN ×2 (13:53)
--- NOTE | 2023-12-03 15:19 | P.HPIM ---
History of Present Illness H&P Date: 12/03/23 History of present illness: 63-year-old female with past medical history significant for severe COPD with FEV1 25%, chronic hypoxia on 2 L oxygen at baseline, history of coronary artery disease status post LAD stent in September 2022, history of seizure disorder, hypothyroidism, carotid artery disease status post stent neuropathy, chronic back pain who presented to ED with a complaint of shortness of breath for last 2 days progressively getting worse. Patient complained of productive cough worsening, denied any fever or chills. Patient shortness of breath progressively got worse to a point where patient became confused per patient's daughter. Home pulse ox showed patient's oxygen saturation in the 50s. Initial blood gases in the ED showed pO2 of 78, pCO2 56, pH of 7.18. Patient was placed on BiPAP, mental status improved on BiPAP. Patient is a poor historian, most of the history comes from patient's daughter at bedside. Patient's mentation is currently at baseline per daughter. REVIEW OF SYSTEMS: CONSTITUTIONAL: No fever, no malaise, no fatigue. HEENT: No recent visual problems or hearing problems. Denied any sore throat. CARDIOVASCULAR: No chest pain, orthopnea, PND, no palpitations, no syncope. PULMONARY: No shortness of breath, no cough, no hemoptysis. GASTROINTESTINAL: No diarrhea, no nausea, no vomiting, no abdominal pain. NEUROLOGICAL: No headaches, no weakness, no numbness. HEMATOLOGICAL: Denies any bleeding or petechiae. GENITOURINARY: Denies any burning micturition, frequency, or urgency. MUSCULOSKELETAL/RHEUMATOLOGICAL: Denies any joint pain, swelling, or any muscle pain. ENDOCRINE: Denies any polyuria or polydipsia. The rest of the 14-point review of systems is negative. PHYSICAL EXAMINATION: GENERAL: The patient is A&O x3, NAD HEENT: EOMI, Sclerae anicteric, Moist Mucous membranes Neck: Supple, Non tender, No JVD PULMONARY: Decreased breath sound bilaterally, positive bilateral expiratory wheezes. CARDIOVASCULAR: S1, S2 present. No murmurs, rubs, or gallops. ABDOMEN: Soft, nontender, nondistended, normoactive bowel sounds. No guarding or rebound tenderness. MUSCULOSKELETAL: No edema, No cyanosis. No clubbing. Normal ROM. Intact perip heral pulses. EXTREMITIES: No cyanosis, clubbing, or pedal edema. NEUROLOGICAL: CN 2-12 grossly intact. No FND Assessment and plan: Acute on chronic hypoxic respiratory failure: Acute metabolic encephalopathy Acute COPD exacerbation Severe COPD with FEV1 25%, on 2 L oxygen at baseline Frequent hospitalization Current smoker History of CAD status post LAD stent in September 2022 Seizure disorder Chronic back pain Carotid artery disease status post stent SIRI: Resolved Plan: Continue inhalers/nebulizers/bronchodilator protocol Solu-Medrol Pulmonary consult BiPAP as needed, supplemental oxygen Blood gases as needed Resume home medications DVT prophylaxis Monitor vital signs and labs Continue telemetry monitoring Labs and medication were reviewed. Continue same treatment. Resume home medication. Further recommendations as per clinical course of the patient Dictation was produced using [employer] dictation software. please excuse any grammatical, word or spelling errors. Past Medical History Past Medical History: Asthma, Coronary Artery Disease (CAD), Chest Pain / Angina, COPD, GERD/Reflux, Hyperlipidemia, Hypertension, Myocardial Infarction ([place]), Respiratory Disorder, Seizure Disorder, Thyroid Disorder, Vascular Disorder Additional Past Medical History / Comment(s): 2L oxygen use, 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 carotid blockage, PAD, vertigo at times. Last Myocardial Infarction Date:: 06/2022 History of Any Multi-Drug Resistant Organisms: None Reported Past Surgical History: Heart Catheterization, Heart Catheterization With Stent, Hysterectomy, Joint Replacement, Orthopedic Surgery Additional Past Surgical History / Comment(s): RT ROTATOR CUFF REPAIR, R total knee, CYSTS REMOVED FROM UNDER ARMS AND HANDS, arch studies, L caratid endartectomy, 4 cardiac stents, several peripheral stents, 07/18/18 left subclavian stent, arch studies. Past Anesthesia/Blood Transfusion Reactions: No Reported Reaction Additional Past Anesthesia/Blood Transfusion Reaction / Comment(s): Pt states that she is unable to go under general anesthesia per her disposition clerk due to low functioning lungs. Pt has never received blood. Date of Last Stent Placement:: Nov 2017 Past Psychological History: Anxiety, Depression Additional Psychological History / Comment(s): Pt resides with her boyfriend and puppy. Smoking Status: Current every day smoker Past Alcohol Use History: None Reported Additional Past Alcohol Use History / Comment(s): SMOKES 3-4 cig/day currently. Started smoking at age 11. Patient reports quiting 06/23/2023 Past Drug Use History: None Reported, Marijuana Additional Drug Use History / Comment(s): edibles occasionally, refrain for 24 hours prior - Past Family History Mother Family Medical History: Cancer Sister(s) Family Medical History: Cancer Medications and Allergies Home Medications Medication Instructions Recorded Confirmed Type Escitalopram [Lexapro] 40 mg PO DAILY 11/28/17 12/02/23 History Levothyroxine Sodium 200 mcg PO DAILY 08/20/20 12/02/23 History Nitroglycerin Sl Tabs [Nitrostat] 0.4 mg SL Q5M PRN 08/20/20 12/02/23 History Doxepin [SINEquan] 10 mg PO HS 02/25/22 12/02/23 History Atorvastatin [Lipitor] 40 mg PO HS #30 tab 06/21/22 12/02/23 Rx Clopidogrel [Plavix] 75 mg PO DAILY #90 tablet 10/28/22 12/02/23 Rx Albuterol Sulfate [Albuterol 1 - 2 puff INHALATION RT-Q6H PRN 02/03/23 12/02/23 History Sulfate Hfa] cloNIDine HCL [Catapres] 0.2 mg PO HS 02/03/23 12/02/23 History levETIRAcetam [Keppra] 2,000 mg PO DAILY 02/03/23 12/02/23 History Aspirin 81 mg PO DAILY tab 02/25/23 12/02/23 Rx Albuterol Nebulized [Ventolin 2.5 mg INHALATION RT-QID PRN 04/09/23 12/02/23 History Nebulized] Gabapentin 800 mg PO TID 04/09/23 12/02/23 History Midodrine HCl [ProAmantine] 2.5 mg PO AC-BID 04/09/23 12/02/23 History Ibuprofen [Motrin] 800 mg PO Q8HR PRN #30 tab 09/30/23 12/02/23 Rx oxyCODONE HCL/ACETAMINOPHEN 1 tab PO TID PRN 11/24/23 12/02/23 History [oxyCODONE HCL/ACETAMINOPHEN 5-325] Fluticasone/Umeclidin/Vilanter 1 puff INHALATION RT-DAILY 11/25/23 12/02/23 History [Trelegy Ellipta 200-62.5-25] levETIRAcetam [Keppra] 1,000 mg PO HS 11/25/23 12/02/23 History buprenorphine HCL [Subutex] 8 mg SL BID 12/02/23 12/02/23 History Allergies Allergy/AdvReac Type Severity Reaction Status Date / Time No Known Allergies Allergy Verified 12/02/23 19:54 Physical Exam Vitals: Vital Signs Temp Pulse Resp BP Pulse Ox FiO2 12/03/23 08:00 40 12/03/23 07:00 88 9 L 121/46 98 12/03/23 06:45 87 17 114/102 96 12/03/23 06:30 82 13 77/52 95 12/03/23 06:15 82 10 L 107/59 96 12/03/23 06:00 84 11 L 124/87 92 L 12/03/23 05:45 85 14 108/65 94 L 12/03/23 05:15 89 21 96/60 90 L 12/03/23 05:00 86 10 L 104/60 92 L 12/03/23 04:45 87 13 97/57 95 12/03/23 04:30 83 15 106/51 95 12/03/23 04:15 83 9 L 109/43 96 12/03/23 04:00 80 22 103/62 95 12/03/23 03:45 80 14 102/49 97 12/03/23 03:39 40 12/03/23 03:30 80 18 114/65 96 12/03/23 03:15 83 11 L 101/63 97 12/03/23 03:00 80 12 107/51 96 12/03/23 02:45 84 16 113/56 95 12/03/23 02:30 84 14 106/48 94 L 12/03/23 02:15 80 22 95/35 95 12/03/23 02:00 83 14 110/57 94 L 12/03/23 01:45 82 8 L 113/68 96 12/03/23 01:30 85 13 111/56 96 12/03/23 01:15 82 31 H 97/48 97 12/03/23 01:00 83 30 H 81/48 96 12/03/23 00:45 82 16 81/44 97 12/03/23 00:30 86 13 101/34 97 12/03/23 00:15 85 11 L 97/38 99 12/03/23 00:06 85 11 L 97/38 98 12/03/23 00:00 97.6 F 85 9 L 103/90 98 40 12/02/23 23:45 82 12 99/49 99 12/02/23 23:30 81 8 L 74/35 98 12/02/23 23:22 40 12/02/23 23:15 82 8 L 82/42 99 12/02/23 23:00 84 7 L 92/64 98 12/02/23 22:45 81 7 L 75/41 98 12/02/23 22:30 97.3 F L 82 9 L 97/40 98 40 12/02/23 22:27 40 12/02/23 21:18 84 18 90/54 96 12/02/23 21:04 85 88/50 96 12/02/23 19:29 80 16 117/87 97 12/02/23 19:07 80 12/02/23 18:50 40 12/02/23 18:32 74 12/02/23 18:03 40 12/02/23 17:55 40 12/02/23 17:45 98.0 F 92 30 H 107/97 77 L Intake and Output 12/02/23 12/03/23 12/03/23 22:59 06:59 14:59 Intake Total 1028.159 283.165 Output Total 600 0 Balance 428.159 283.165 Intake: IV 1000 125 Sodium Chloride 0.9% 1, 1000 125 000 ml @ 125 mls/hr IV . Q8H VINICIO Rx#:[id number] Intake, IV Titration 28.159 158.165 Amount Norepinephrine 4 mg In 28.159 158.165 Sodium Chloride 0.9% 250 ml @ 0.03 MCG/KG/MIN 8. 295 mls/hr IV .Q24H VINICIO Rx#:[id number] Output: Urine 600 0 Other: Voiding Method Diaper External Catheter Weight 72.575 kg 72.2 kg Results CBC & Chem 7: 12/03/23 03:43 12/03/23 03:43 Labs: Abnormal Lab Results - Last 24 Hours (Table) 12/02/23 12/02/23 12/02/23 Range/Units 17:53 17:53 17:53 WBC (3.8-10.6) k/uL Hct 46.3 H (34.0-46.0) % MCV 101.7 H (80.0-100.0) fL RDW 18.2 H (11.5-15.5) % Macrocytosis PT 9.5 L (10.0-12.5) sec ABG pH (7.35-7.45) ABG pCO2 (35-45) mmHg ABG pO2 (83-108) mmHg ABG O2 Saturation (94-97) % Potassium (3.5-5.1) mmol/L Chloride 110 H (98-107) mmol/L Carbon Dioxide 20 L (22-30) mmol/L Creatinine 1.37 H (0.52-1.04) mg/dL Glucose 119 H (74-99) mg/dL POC Glucose (mg/dL) (70-110) mg/dL Calcium (8.4-10.2) mg/dL Magnesium 2.4 H (1.6-2.3) mg/dL Urine Appearance (Clear) Urine Protein (Negative) Urine Blood (Negative) Urine Nitrite (Negative) Ur Leukocyte Esterase (Negative) Urine WBC (0-5) /hpf Urine WBC Clumps (None) /hpf Urine Bacteria (None) /hpf Hyaline Casts (0-2) /lpf Urine Mucus (None) /hpf 12/02/23 12/02/23 12/02/23 Range/Units 18:19 19:06 22:18 WBC (3.8-10.6) k/uL Hct (34.0-46.0) % MCV (80.0-100.0) fL RDW (11.5-15.5) % Macrocytosis PT (10.0-12.5) sec ABG pH 7.18 L* (7.35-7.45) ABG pCO2 56 H (35-45) mmHg ABG pO2 78 L (83-108) mmHg ABG O2 Saturation (94-97) % Potassium (3.5-5.1) mmol/L Chloride (98-107) mmol/L Carbon Dioxide (22-30) mmol/L Creatinine (0.52-1.04) mg/dL Glucose (74-99) mg/dL POC Glucose (mg/dL) 128 H (70-110) mg/dL Calcium (8.4-10.2) mg/dL Magnesium (1.6-2.3) mg/dL Urine Appearance Cloudy H (Clear) Urine Protein 2+ H (Negative) Urine Blood Trace H (Negative) Urine Nitrite Positive H (Negative) Ur Leukocyte Esterase Moderate H (Negative) Urine WBC 22 H (0-5) /hpf Urine WBC Clumps Moderate H (None) /hpf Urine Bacteria Few H (None) /hpf Hyaline Casts 5 H (0-2) /lpf Urine Mucus Rare H (None) /hpf 12/03/23 12/03/23 12/03/23 Range/Units 03:43 03:43 04:08 WBC 10.7 H (3.8-10.6) k/uL Hct (34.0-46.0) % MCV 103.9 H (80.0-100.0) fL RDW 18.9 H (11.5-15.5) % Macrocytosis Marked A PT (10.0-12.5) sec ABG pH 7.22 L (7.35-7.45) ABG pCO2 51 H (35-45) mmHg ABG pO2 65 L (83-108) mmHg ABG O2 Saturation 92.6 L (94-97) % Potassium 3.1 L (3.5-5.1) mmol/L Chloride 113 H (98-107) mmol/L Carbon Dioxide 17 L (22-30) mmol/L Creatinine 1.06 H (0.52-1.04) mg/dL Glucose 113 H (74-99) mg/dL POC Glucose (mg/dL) (70-110) mg/dL Calcium 7.9 L (8.4-10.2) mg/dL Magnesium 2.5 H (1.6-2.3) mg/dL Urine Appearance (Clear) Urine Protein (Negative) Urine Blood (Negative) Urine Nitrite (Negative) Ur Leukocyte Esterase (Negative) Urine WBC (0-5) /hpf Urine WBC Clumps (None) /hpf Urine Bacteria (None) /hpf Hyaline Casts (0-2) /lpf Urine Mucus (None) /hpf 12/03/23 Range/Units 06:45 WBC (3.8-10.6) k/uL Hct (34.0-46.0) % MCV (80.0-100.0) fL RDW (11.5-15.5) % Macrocytosis PT (10.0-12.5) sec ABG pH (7.35-7.45) ABG pCO2 (35-45) mmHg ABG pO2 (83-108) mmHg ABG O2 Saturation (94-97) % Potassium (3.5-5.1) mmol/L Chloride (98-107) mmol/L Carbon Dioxide (22-30) mmol/L Creatinine (0.52-1.04) mg/dL Glucose (74-99) mg/dL POC Glucose (mg/dL) 149 H (70-110) mg/dL Calcium (8.4-10.2) mg/dL Magnesium (1.6-2.3) mg/dL Urine Appearance (Clear) Urine Protein (Negative) Urine Blood (Negative) Urine Nitrite (Negative) Ur Leukocyte Esterase (Negative) Urine WBC (0-5) /hpf Urine WBC Clumps (None) /hpf Urine Bacteria (None) /hpf Hyaline Casts (0-2) /lpf Urine Mucus (None) /hpf
[2023-12-03] MEDS ORDERED: ALBUTEROL NEBULIZED 2.5 MG/3 ML INHALATION SCH (16:00)
[2023-12-03 16:35] LABS: Glucose,Whole Blood 146 mg/dL (70-110)
[2023-12-03] MEDS: INSULIN ASPART (NovoLOG) 100 UNIT/ML VIAL SQ SCH (17:57)
[2023-12-03] MEDS: POTASSIUM CHLORIDE ER 20 MEQ TAB.ER PO SCH (18:36)
[2023-12-03 19:46] LABS: Glucose,Whole Blood 176 mg/dL (70-110)
[2023-12-03] MEDS: ATORVASTATIN 40 MG TAB PO SCH (19:49)
[2023-12-03] MEDS: DOXEPIN 10 MG CAP PO SCH (19:49)
[2023-12-03] MEDS: cloNIDine HCL 0.2 MG TAB PO SCH (22:06)
[2023-12-03] MEDS: methylPREDNISolone SOD SUCCI 40 MG/ML 1 ML VIAL IV SCH (22:28)
[2023-12-04 06:06] LABS: Glucose,Whole Blood 126 mg/dL (70-110)
[2023-12-04 06:26] LABS: Anisocytosis Slight; Basophils % (A) 0 %; Eosinophils # (A) 0.1 k/uL (0-0.7); Eosinophils % (A) 0 %; HCT 41.3 % (34.0-46.0); HGB 13.1 gm/dL (11.4-16.0); Hypochromasia Slight; Lymphocytes # (A) 0.8 k/uL (1.0-4.8); Lymphocytes % (A) 4 %; MCH 32.2 pg (25.0-35.0); MCHC 31.7 g/dL (31.0-37.0); MCV 101.6 fL (80.0-100.0); Macrocytosis Moderate; Mean Platelet Volume 7.6; Monocytes # (A) 0.7 k/uL (0-1.0); Monocytes % (A) 3 %; Neutrophils # (A) 18.5 k/uL (1.3-7.7); Neutrophils % (A) 92 %; Platelet Count 240 k/uL (150-450); RBC 4.06 m/uL (3.80-5.40); WBC 20.1 k/uL (3.8-10.6)
[2023-12-04 06:45] LABS: African American GFR (CKD) 68 (>60 ml/min/1.73 sqM); Anion Gap 8 mmol/L; Blood Urea Nitrogen 15 mg/dL (7-17); Calcium 8.1 mg/dL (8.4-10.2); Carbon Dioxide 17 mmol/L (22-30); Chloride 114 mmol/L (98-107); Glucose 93 mg/dL (74-99); Non-African American GFR(CKD) 59 (>60 ml/min/1.73 sqM); Potassium 3.9 mmol/L (3.5-5.1); Sodium 139 mmol/L (137-145)
[2023-12-04] MEDS ORDERED: SYMBICORT 160-4.5 MCG INHALER INHALATION SCH (08:00)
[2023-12-04] MEDS: POTASSIUM CHLORIDE ER 20 MEQ TAB.ER PO SCH (09:29)
[2023-12-04] MEDS: IPRATROPIUM-ALBUTEROL 3 ML NEB INHALATION SCH (10:49)
[2023-12-04 11:37] LABS: Glucose,Whole Blood 194 mg/dL (70-110)
--- NOTE | 2023-12-04 12:17 | P.PN ---
Subjective Progress Note Date: 12/04/23 Principal diagnosis: Acute on chronic hypoxic and hypercapnic respiratory failure secondary to COPD This is a 63-year-old female with known history of severe end-stage COPD, O2 d ependent, maintained on multiple bronchodilators including DuoNeb, Trelegy, and albuterol. Patient is not prednisone dependent, had multiple admissions in the past with acute hypoxic and hypercapnic respiratory failure. This time the patient was brought into the ER with complaining of shortness of breath over the last few days, and daughter has been noticing altered mental status. ABG on her initial evaluation in the ER showed a pO2 of 78 pCO2 56 and pH of 7.18. Hence the patient was placed on BiPAP, mental status improved on BiPAP, nonetheless considering the patient was marginal, she was admitted to the ICU and this consult was initiated. The patient herself does not remember how she ended up in the ER, but according to the daughter her mental status worsens every time her pCO2 is above 50. Patient had previous similar admissions, FEV1 is normally in the range of 25%, DLCO is in the range of 23%. I evaluated this patient, and her mental status seems to be much better this morning remains on BiPAP, and will try to transition to nasal cannula as tolerated. Time patient is on bronchodilators and steroids. Patient evaluated today on 12/04/2023, on 2 L nasal cannula, in no distress, last night she was on BiPAP 12/6/40%, tolerated BiPAP well, today she is relatively asymptomatic, she is even asking to be discharged home. On physical examination today is continues to have some wheezing, I do not believe the patient is quite ready to be discharged home yet. However she could be transferred out of the ICU to regular medical floor. WBC count is 20.1 hemoglobin is 13.1 electrolytes are normal bicarb remains a bit low at 17 BUN is 15 creatinine 1.01 Objective - Vital Signs Vital signs: Vital Signs Temp 97.6 F 12/04/23 08:00 Pulse 85 12/04/23 11:00 Resp 14 12/04/23 08:00 BP 106/83 12/04/23 08:00 Pulse Ox 92 L 12/04/23 08:34 FiO2 40 12/03/23 22:45 Intake & Output 12/03/23 12/04/23 12/04/23 18:59 06:59 18:59 Intake Total 3450.010 1500 745 Output Total 1400 850 250 Balance 2050.010 650 495 Weight 76.8 kg Intake: IV 1500 1500 245 Sodium Chloride 0.9% 1, 1500 1500 245 000 ml @ 125 mls/hr IV . Q8H [facility] Rx#:[id number] Intake, IV Titration 300.010 Amount Norepinephrine 4 mg In 200.010 Sodium Chloride 0.9% 250 ml @ 0.03 MCG/KG/MIN 8. 295 mls/hr IV .Q24H [facility] Rx#:[id number] Potassium Chloride 10 meq 100 In Water For Injection 1 100ml.bag @ 100 mls/hr IVPB Q1HR [facility] Rx#: [id number] Oral 1650 500 Output: Urine 1400 850 250 Other: Voiding Method External Catheter External Catheter Bedside Commode # Voids 1 1 1 - Exam GENERAL EXAM: 63-year-old female in no distress, on 2 L nasal cannula HEAD: Normocephalic and atraumatic EYES: Normal reaction of pupils, equal size. NOSE: Clear with pink turbinates. THROAT: No erythema or exudates. NECK: No masses, no JVD. CHEST: No chest wall deformity. LUNGS: Diminished breath sound bilaterally rhonchi and wheezes noted bilaterally CVS: S1 and S2 normal with no audible murmur, regular rhythm. No extra heart sounds ABDOMEN: No hepatosplenomegaly, active bowel sounds, no guarding or rigidity. SKIN: No rashes CENTRAL NERVOUS SYSTEM: Alert oriented x 3 no gross focal deficit EXTREMITIES: There is no peripheral edema, clubbing, or cyanosis. Peripheral pulses are intact. - Labs CBC & Chem 7: 12/04/23 06:06 12/04/23 06:06 Labs: Abnormal Lab Results - Last 24 Hours (Table) 12/03/23 12/03/23 12/03/23 Range/Units 16:08 16:34 19:44 WBC (3.8-10.6) k/uL MCV (80.0-100.0) fL RDW (11.5-15.5) % Neutrophils # (1.3-7.7) k/uL Lymphocytes # (1.0-4.8) k/uL Potassium 3.4 L (3.5-5.1) mmol/L Chloride (98-107) mmol/L Carbon Dioxide (22-30) mmol/L POC Glucose (mg/dL) 146 H 176 H (70-110) mg/dL Calcium (8.4-10.2) mg/dL 12/04/23 12/04/23 12/04/23 Range/Units 06:04 06:06 06:06 WBC 20.1 H (3.8-10.6) k/uL MCV 101.6 H (80.0-100.0) fL RDW 19.0 H (11.5-15.5) % Neutrophils # 18.5 H (1.3-7.7) k/uL Lymphocytes # 0.8 L (1.0-4.8) k/uL Potassium (3.5-5.1) mmol/L Chloride 114 H (98-107) mmol/L Carbon Dioxide 17 L (22-30) mmol/L POC Glucose (mg/dL) 126 H (70-110) mg/dL Calcium 8.1 L (8.4-10.2) mg/dL 12/04/23 Range/Units 11:35 WBC (3.8-10.6) k/uL MCV (80.0-100.0) fL RDW (11.5-15.5) % Neutrophils # (1.3-7.7) k/uL Lymphocytes # (1.0-4.8) k/uL Potassium (3.5-5.1) mmol/L Chloride (98-107) mmol/L Carbon Dioxide (22-30) mmol/L POC Glucose (mg/dL) 194 H (70-110) mg/dL Calcium (8.4-10.2) mg/dL Assessment and Plan Assessment: Impression: Acute on chronic hypoxic and hypercapnic respiratory failure secondary to COPD Acute COPD exacerbation Acute CO2 narcosis and metabolic encephalopathy severe chronic obstructive pulmonary disease, with a baseline FEV1 25% of predicted, maintained on Trelegy on an outpatient basis Chronic ongoing tobacco dependence History of hyperlipidemia Coronary artery disease, with multiple previous coronary stents, most recent cardiac catheterization from 10/17/2022 showed patent stent to LAD. No other significant abnormalities other Carotid artery stenosis, status post left carotid stenting Hypothyroidism History of seizure disorder Recommendation: Transfer patient to medical surgical floor today. Continue present supportive care measures Continue BiPAP and alternate with nasal cannula as tolerated Continue bronchodilators/updrafts and continue Solu-Medrol, continue Trelegy pa tient has her own Continue to monitor for any seizure activity Avoid narcotics as much as possible and sedatives Will continue to follow. Time with Patient: Less than 30
--- NOTE | 2023-12-04 13:17 | P.PN ---
Subjective Progress Note Date: 12/04/23 Interval History: 63-year-old female with past medical history significant for severe COPD with FEV1 25%, chronic hypoxia on 2 L oxygen at baseline, history of coronary artery disease status post LAD stent in September 2022, history of seizure disorder, hypothyroidism, carotid artery disease status post stent neuropathy, chronic back pain who presented to ED with a complaint of shortness of breath for last 2 days progressively getting worse. Patient complained of productive cough worsening, denied any fever or chills. Patient shortness of breath progressively got worse to a point where patient became confused per patient's daughter. Home pulse ox showed patient's oxygen saturation in the 50s. Initial blood gases in the ED showed pO2 of 78, pCO2 56, pH of 7.18. Patient was placed on BiPAP, mental status improved on BiPAP. Patient is a poor historian, most of the history comes from patient's daughter at bedside. Patient's mentation is currently at baseline per daughter. 12/04/2023--patient was seen and examined today, anxious, in no distress, on 2 L oxygen, symptoms are improving. Pulmonary following, recommended to continue current management, okay to discharge out of the ICU to regular medical floor. WBC count 20.1, hemoglobin 13.1. Creatinine 1.01, BUN 15. Bicarbonate is 17. Will continue inhalers/bronchodilator protocol, Solu-Medrol. Assessment and plan: Acute on chronic hypoxic respiratory failure: Acute metabolic encephalopathy Acute COPD exacerbation Severe COPD with FEV1 25%, on 2 L oxygen at baseline Frequent hospitalization Current smoker History of CAD status post LAD stent in September 2022 Seizure disorder Chronic back pain Carotid artery disease status post stent SIRI: Resolved Plan: Continue inhalers/nebulizers/bronchodilator protocol Solu-Medrol Pulmonary consult BiPAP as needed, supplemental oxygen Blood gases as needed Resume home medications DVT prophylaxis Subcutaneous heparin Monitor vital signs and labs Continue telemetry monitoring Labs and medication were reviewed. Continue same treatment. Resume home medication. Further recommendations as per clinical course of the patient PHYSICAL EXAMINATION: GENERAL: The patient is A&O x3, NAD HEENT: EOMI, Sclerae anicteric, Moist Mucous membranes Neck: Supple, Non tender, No JVD PULMONARY: Decreased breath sounds bilaterally, bilateral expiratory wheezes. CARDIOVASCULAR: S1, S2 present. No murmurs, rubs, or gallops. ABDOMEN: Soft, nontender, nondistended, normoactive bowel sounds. No guarding or rebound tenderness. MUSCULOSKELETAL: No edema, No cyanosis. No clubbing. Normal ROM. Intact peripheral pulses. EXTREMITIES: No cyanosis, clubbing, or pedal edema. NEUROLOGICAL: CN 2-12 grossly intact. No FND Skin: No Rash REVIEW OF SYSTEMS: CONSTITUTIONAL: No fever or chills. Complains of anxiety. CARDIOVASCULAR: No chest pain, palpitations or syncope. PULMONARY: Complains of shortness of breath. GASTROINTESTINAL: No nausea, vomiting, diarrhea, abdominal pain. : No Dysuria, urgency, frequency. Extremities: No edema. NEUROLOGICAL: No headaches, no weakness, or numbness Dictation was produced using [employer] dictation software. please excuse any grammatical, word or spelling errors. Objective - Vital Signs Vital signs: Vital Signs Temp 97.6 F 12/04/23 08:00 Pulse 85 12/04/23 11:00 Resp 14 12/04/23 08:00 BP 106/83 12/04/23 08:00 Pulse Ox 92 L 12/04/23 08:34 FiO2 40 12/03/23 22:45 Intake & Output 12/03/23 12/04/23 12/04/23 18:59 06:59 18:59 Intake Total 3450.010 1500 745 Output Total 1400 850 250 Balance 2050.010 650 495 Weight 76.8 kg Intake: IV 1500 1500 245 Sodium Chloride 0.9% 1, 1500 1500 245 000 ml @ 125 mls/hr IV . Q8H [facility] Rx#:[id number] Intake, IV Titration 300.010 Amount Norepinephrine 4 mg In 200.010 Sodium Chloride 0.9% 250 ml @ 0.03 MCG/KG/MIN 8. 295 mls/hr IV .Q24H [facility] Rx#:[id number] Potassium Chloride 10 meq 100 In Water For Injection 1 100ml.bag @ 100 mls/hr IVPB Q1HR [facility] Rx#: [id number] Oral 1650 500 Output: Urine 1400 850 250 Other: Voiding Method External Catheter External Catheter Bedside Commode # Voids 1 1 1 - Labs CBC & Chem 7: 12/04/23 06:06 12/04/23 06:06 Labs: Abnormal Lab Results - Last 24 Hours (Table) 12/03/23 12/03/23 12/03/23 Range/Units 16:08 16:34 19:44 WBC (3.8-10.6) k/uL MCV (80.0-100.0) fL RDW (11.5-15.5) % Neutrophils # (1.3-7.7) k/uL Lymphocytes # (1.0-4.8) k/uL Potassium 3.4 L (3.5-5.1) mmol/L Chloride (98-107) mmol/L Carbon Dioxide (22-30) mmol/L POC Glucose (mg/dL) 146 H 176 H (70-110) mg/dL Calcium (8.4-10.2) mg/dL 12/04/23 12/04/23 12/04/23 Range/Units 06:04 06:06 06:06 WBC 20.1 H (3.8-10.6) k/uL MCV 101.6 H (80.0-100.0) fL RDW 19.0 H (11.5-15.5) % Neutrophils # 18.5 H (1.3-7.7) k/uL Lymphocytes # 0.8 L (1.0-4.8) k/uL Potassium (3.5-5.1) mmol/L Chloride 114 H (98-107) mmol/L Carbon Dioxide 17 L (22-30) mmol/L POC Glucose (mg/dL) 126 H (70-110) mg/dL Calcium 8.1 L (8.4-10.2) mg/dL 12/04/23 Range/Units 11:35 WBC (3.8-10.6) k/uL MCV (80.0-100.0) fL RDW (11.5-15.5) % Neutrophils # (1.3-7.7) k/uL Lymphocytes # (1.0-4.8) k/uL Potassium (3.5-5.1) mmol/L Chloride (98-107) mmol/L Carbon Dioxide (22-30) mmol/L POC Glucose (mg/dL) 194 H (70-110) mg/dL Calcium (8.4-10.2) mg/dL
[2023-12-04] MEDS: HEPARIN SODIUM,PORCINE 5,000 UNIT/ML 1 ML VIAL SQ SCH (14:50)
[2023-12-04] MEDS: PANTOPRAZOLE 40 MG TABLET PO SCH (15:26)
[2023-12-04 17:11] LABS: Glucose,Whole Blood 161 mg/dL (70-110)
[2023-12-04 21:27] LABS: Glucose,Whole Blood 145 mg/dL (70-110)
[2023-12-05 05:29] LABS: Glucose,Whole Blood 156 mg/dL (70-110)
[2023-12-05 08:46] LABS: HCT 36.4 % (37.2-46.3); HGB 11.2 g/dL (12.0-15.0); MCH 32.4 pg (27.0-32.0); MCHC 30.8 g/dL (32.0-37.0); MCV 105.2 FL (80.0-97.0); Mean Platelet Volume 9.9 FL (9.5-12.2); NRBC Per 100 WBC 0 X 10*3/uL (0.00-0.01); Platelet Count 271 X 10*3/uL (140-440); RBC 3.46 X 10*6/uL (4.10-5.20); WBC 14.65 X 10*3/uL (4.50-10.00)
[2023-12-05 08:57] LABS: BUN/Creat Ratio 15.92 Ratio (12.00-20.00); Blood Urea Nitrogen 20.7 mg/dL (9.0-27.0); Calcium 7.9 mg/dL (8.7-10.3); Carbon Dioxide 20.6 mmol/L (21.6-31.8); Chloride 114 mmol/L (96-109); Glucose 146 mg/dL (70-110); Potassium 3.7 mmol/L (3.5-5.5); Sodium 145 mmol/L (135-145)
--- NOTE | 2023-12-05 09:04 | P.PN ---
Subjective Progress Note Date: 12/05/23 This is a 63-year-old female with a past medical history of COPD who presented to the emergency department with complaints of shortness of breath that has progressively worsened over the last several days. Patient is maintained on oxygen at home at 2 L. Patient was reportedly confused on admission. Patient was placed on BiPAP and had a short stay in the ICU for being transferred to regular medical floor. Patient is seen this morning sitting up in bed. She is alert and oriented x 4. She is currently on 2 L of oxygen via nasal cannula. She reports she is feeling much better. Her vitals are stable. And she is tolerating diet. Objective - Vital Signs Vital signs: Vital Signs Temp 97.9 F 12/05/23 08:00 Pulse 85 12/05/23 08:00 Resp 20 12/05/23 08:00 BP 92/54 12/05/23 08:00 Pulse Ox 89 L 12/05/23 08:00 FiO2 40 12/05/23 07:15 Intake & Output 12/04/23 12/05/23 12/05/23 18:59 06:59 18:59 Intake Total 745 Output Total 450 Balance 295 Intake: IV 245 Sodium Chloride 0.9% 1, 245 000 ml @ 125 mls/hr IV . Q8H [facility] Rx#:[id number] Oral 500 Output: Urine 450 Other: Voiding Method Diaper Diaper # Voids 1 1 - Constitutional General appearance: Present: cooperative, no acute distress - EENT Eyes: Present: PERRLA - Neck Neck: Present: normal ROM. Absent: lymphadenopathy, rigidity - Respiratory Respiratory: bilateral: wheezing - Cardiovascular Rhythm: regular Heart sounds: normal: S1, S2 - Gastrointestinal General gastrointestinal: Present: soft. Absent: tenderness - Integumentary Integumentary: Present: normal, normal turgor - Psychiatric Psychiatric: Present: A&O x's 3 - Labs CBC & Chem 7: 12/05/23 03:04 12/05/23 03:04 Labs: Abnormal Lab Results - Last 24 Hours (Table) 12/04/23 12/04/23 12/04/23 Range/Units 11:35 17:08 21:26 WBC (4.50-10.00) X 10*3/uL RBC (4.10-5.20) X 10*6/uL Hgb (12.0-15.0) g/dL Hct (37.2-46.3) % MCV (80.0-97.0) FL MCH (27.0-32.0) pg MCHC (32.0-37.0) g/dL RDW (11.5-14.5) % Chloride (96-109) mmol/L Carbon Dioxide (21.6-31.8) mmol/L Est GFR (CKD-EPI) (>=60) Glucose (70-110) mg/dL POC Glucose (mg/dL) 194 H 161 H 145 H (70-110) mg/dL Calcium (8.7-10.3) mg/dL 12/05/23 12/05/23 12/05/23 Range/Units 03:04 03:04 05:27 WBC 14.65 H (4.50-10.00) X 10*3/uL RBC 3.46 L (4.10-5.20) X 10*6/uL Hgb 11.2 L (12.0-15.0) g/dL Hct 36.4 L (37.2-46.3) % MCV 105.2 H (80.0-97.0) FL MCH 32.4 H (27.0-32.0) pg MCHC 30.8 L (32.0-37.0) g/dL RDW 20.0 H (11.5-14.5) % Chloride 114 H (96-109) mmol/L Carbon Dioxide 20.6 L (21.6-31.8) mmol/L Est GFR (CKD-EPI) 46 L (>=60) Glucose 146 H (70-110) mg/dL POC Glucose (mg/dL) 156 H (70-110) mg/dL Calcium 7.9 L (8.7-10.3) mg/dL Assessment and Plan (1) COPD exacerbation Current Visit: Yes Status: Acute Code(s): J44.1 - CHRONIC OBSTRUCTIVE PULMONARY DISEASE W (ACUTE) EXACERBATION SNOMED Code(s): 490997900 (2) CAD (coronary artery disease) Current Visit: No Status: Acute Code(s): I25.10 - ATHSCL HEART DISEASE OF [place] CORONARY ARTERY W/O ANG PCTRS SNOMED Code(s): 75512624 (3) Acute hypoxic respiratory failure Current Visit: No Status: Acute Code(s): J96.01 - ACUTE RESPIRATORY FAILURE WITH HYPOXIA SNOMED Code(s): 91353679 (4) Hypothyroid Current Visit: No Status: Acute Code(s): E03.9 - HYPOTHYROIDISM, UNSPECIFIED SNOMED Code(s): 65639375 (5) Tobacco abuse Current Visit: No Status: Acute Code(s): Z72.0 - TOBACCO USE SNOMED Code(s): 728504382 Plan: Check CBC and CMP in the morning. Patient still on IV steroids at this time, appreciate pulmonology input. Patient seen and evaluated by nurse practitioner, physician in agreement with plan
[2023-12-05 12:01] LABS: Glucose,Whole Blood 135 mg/dL (70-110)
--- NOTE | 2023-12-05 12:05 | P.PN ---
Subjective Progress Note Date: 12/05/23 This is a 63-year-old female with known history of severe end-stage COPD, O2 dependent, maintained on multiple bronchodilators including DuoNeb, Trelegy, and albuterol. Patient is not prednisone dependent, had multiple admissions in the past with acute hypoxic and hypercapnic respiratory failure. This time the patient was brought into the ER with complaining of shortness of breath over the last few days, and daughter has been noticing altered mental status. ABG on her initial evaluation in the ER showed a pO2 of 78 pCO2 56 and pH of 7.18. Hence the patient was placed on BiPAP, mental status improved on BiPAP, nonetheless considering the patient was marginal, she was admitted to the ICU and this consult was initiated. The patient herself does not remember how she ended up in the ER, but according to the daughter her mental status worsens every time her pCO2 is above 50. Patient had previous similar admissions, FEV1 is normally in the range of 25%, DLCO is in the range of 23%. I evaluated this patient, and her mental status seems to be much better this morning remains on BiPAP, and wi ll try to transition to nasal cannula as tolerated. Time patient is on bronchodilators and steroids. Patient evaluated today on 12/04/2023, on 2 L nasal cannula, in no distress, last night she was on BiPAP 12//40%, tolerated BiPAP well, today she is relatively asymptomatic, she is even asking to be discharged home. On physical examination today is continues to have some wheezing, I do not believe the patient is quite ready to be discharged home yet. However she could be transferred out of the ICU to regular medical floor. WBC count is 20.1 hemoglobin is 13.1 electrolytes are normal bicarb remains a bit low at 17 BUN is 15 creatinine 1.01 The patient is seen today December 05, 2023 in follow-up on the regular medical floor. She is sitting up in bed. Awake and alert in no acute distress. She is dyspneic with conversation. Dyspneic with minimal exertion. White count 14.6. She is maintaining O2 saturations in the 90s on 5 L/min per nasal cannula. Hemoglobin 11.2. Platelets 271. Sodium 145. Potassium 3.7. Bicarb 21. BUN 21. Creatinine 1.3. Glucose 146. He is continued on DuoNeb inhalations, her home Trelegy, Solu-Medrol. Heparin for DVT prophylaxis. Objective - Vital Signs Vital signs: Vital Signs Temp 97.9 F 12/05/23 08:00 Pulse 82 12/05/23 11:13 Resp 20 12/05/23 08:00 BP 92/54 12/05/23 08:00 Pulse Ox 89 L 12/05/23 08:00 FiO2 40 12/05/23 11:03 Intake & Output 12/04/23 12/05/23 12/05/23 18:59 06:59 18:59 Intake Total 745 118 Output Total 450 Balance 295 118 Intake: IV 245 Sodium Chloride 0.9% 1, 245 000 ml @ 125 mls/hr IV . Q8H [facility] Rx#:[id number] Oral 500 118 Output: Urine 450 Other: Voiding Method Diaper Diaper Diaper # Voids 1 1 - Exam GENERAL EXAM: Alert, pleasant 63-year-old female, on 5 L nasal cannula, fairly comfortable in no apparent distress. HEAD: Normocephalic. EYES: Normal reaction of pupils, equal size. NOSE: Clear with pink turbinates. THROAT: No erythema or exudates. NECK: No masses, no JVD. CHEST: No chest wall deformity. LUNGS: Equal air entry with bilateral end expiratory wheeze, diminished. CVS: S1 and S2 normal with no audible murmur, regular rhythm. ABDOMEN: No hepatosplenomegaly, normal bowel sounds, no guarding or rigidity. SPINE: No scoliosis or deformity SKIN: No rashes CENTRAL NERVOUS SYSTEM: No focal deficits, tone is normal in all 4 extremities. EXTREMITIES: There is no peripheral edema. No clubbing, no cyanosis. Peripheral pulses are intact. - Labs CBC & Chem 7: 12/05/23 03:04 12/05/23 03:04 Labs: Abnormal Lab Results - Last 24 Hours (Table) 12/04/23 12/04/23 12/05/23 Range/Units 17:08 21:26 03:04 WBC 14.65 H (4.50-10.00) X 10*3/uL RBC 3.46 L (4.10-5.20) X 10*6/uL Hgb 11.2 L (12.0-15.0) g/dL Hct 36.4 L (37.2-46.3) % MCV 105.2 H (80.0-97.0) FL MCH 32.4 H (27.0-32.0) pg MCHC 30.8 L (32.0-37.0) g/dL RDW 20.0 H (11.5-14.5) % Chloride (96-109) mmol/L Carbon Dioxide (21.6-31.8) mmol/L Est GFR (CKD-EPI) (>=60) Glucose (70-110) mg/dL POC Glucose (mg/dL) 161 H 145 H (70-110) mg/dL Calcium (8.7-10.3) mg/dL 12/05/23 12/05/23 Range/Units 03:04 05:27 WBC (4.50-10.00) X 10*3/uL RBC (4.10-5.20) X 10*6/uL Hgb (12.0-15.0) g/dL Hct (37.2-46.3) % MCV (80.0-97.0) FL MCH (27.0-32.0) pg MCHC (32.0-37.0) g/dL RDW (11.5-14.5) % Chloride 114 H (96-109) mmol/L Carbon Dioxide 20.6 L (21.6-31.8) mmol/L Est GFR (CKD-EPI) 46 L (>=60) Glucose 146 H (70-110) mg/dL POC Glucose (mg/dL) 156 H (70-110) mg/dL Calcium 7.9 L (8.7-10.3) mg/dL Assessment and Plan Assessment: Acute on chronic hypoxic and hypercapnic respiratory failure secondary to COPD Acute COPD exacerbation Acute CO2 narcosis and metabolic encephalopathy Severe chronic obstructive pulmonary disease, with a baseline FEV1 25% of predicted, maintained on Trelegy on an outpatient basis Chronic ongoing tobacco dependence History of hyperlipidemia Coronary artery disease, with multiple previous coronary stents, most recent cardiac catheterization from 10/17/2022 showed patent stent to LAD. No other significant abnormalities other Carotid artery stenosis, status post left carotid stenting Hypothyroidism History of seizure disorder Plan: The patient was seen and evaluated Labs and medications reviewed The patient is anxious to go home Recommend staying at least 1 more day Still somewhat bronchospastic and wheezy Continue the current treatment plan The patient states she would not want to be on life support DNR CODE STATUS approved by Dr. Castillo This patient was seen independently by the pulmonary nurse practitioner addressing pulmonary issues I have personally seen and examined the patient, performed the documentation and the assessment and plan as written. Number of minutes spent on the visit: 25.
[2023-12-05 12:50] LABS: Basophils # (A) 0.02 X 10*3/uL (0.00-0.10); Basophils % (A) 0.1 %; Eosinophils # (A) 0 X 10*3/uL (0.04-0.35); Eosinophils % (A) 0 %; Lymphocytes % (A) 3.4 %; Macrocytosis (M) 2+; Monocytes # (A) 0.38 X 10*3/uL (0.20-1.00); Monocytes % (A) 2.6 %; Neutrophils # (A) 13.63 X 10*3/uL (1.80-7.70); Neutrophils % (A) 93.1 %
[2023-12-05] MEDS: methylPREDNISolone SOD SUCCI 125 MG/2 ML VIAL IV SCH (15:07)
[2023-12-05 16:59] LABS: Glucose,Whole Blood 140 mg/dL (70-110)
[2023-12-05 20:08] LABS: Glucose,Whole Blood 156 mg/dL (70-110)
[2023-12-06] MEDS: IPRATROPIUM-ALBUTEROL 3 ML NEB INHALATION PRN (04:51)
[2023-12-06 05:20] LABS: Glucose,Whole Blood 289 mg/dL (70-110)
[2023-12-06 08:36] LABS: HCT 41.2 % (37.2-46.3); HGB 12.1 g/dL (12.0-15.0); MCH 31.8 pg (27.0-32.0); MCHC 29.4 g/dL (32.0-37.0); MCV 108.4 FL (80.0-97.0); Mean Platelet Volume 9.6 FL (9.5-12.2); NRBC Per 100 WBC 0 X 10*3/uL (0.00-0.01); Platelet Count 264 X 10*3/uL (140-440); RDW 20.5 % (11.5-14.5); WBC 11.35 X 10*3/uL (4.50-10.00)
--- NOTE | 2023-12-06 09:29 | P.PN ---
Subjective Progress Note Date: 12/06/23 This is a 63-year-old female with a past medical history of COPD who presented to the emergency department with complaints of shortness of breath that has progressively worsened over the last several days. Patient is maintained on oxygen at home at 2 L. Patient was reportedly confused on admission. Patient was placed on BiPAP and had a short stay in the ICU for being transferred to regular medical floor. Patient is seen this morning sitting up in bed. She is alert and oriented x 4. She is currently on 2 L of oxygen via nasal cannula. She reports she is feeling much better. Her vitals are stable. And she is tolerating diet. 12/06/2023 Patient seen this morning sitting up in bed with family present. Patient's breathing declined yesterday and she did have to be placed on BiPAP during the day. Patient also became hypotensive yesterday. Care management and nursing staff discussed possible hospice with patient and both patient and family are interested at this time. Objective - Vital Signs Vital signs: Vital Signs Temp 98.3 F 12/06/23 08:00 Pulse 112 H 12/06/23 08:53 Resp 16 12/06/23 08:00 BP 91/44 12/06/23 08:00 Pulse Ox 92 L 12/06/23 08:53 FiO2 40 12/06/23 00:35 Intake & Output 12/05/23 12/06/23 12/06/23 18:59 06:59 18:59 Intake Total 118 Output Total 100 Balance 118 -100 Intake: Oral 118 Output: Urine 100 Other: Voiding Method Diaper Diaper # Voids 0 - Constitutional General appearance: Present: cooperative, no acute distress - EENT Eyes: Present: PERRLA - Neck Neck: Present: normal ROM. Absent: lymphadenopathy, rigidity - Respiratory Respiratory: bilateral: wheezing - Cardiovascular Rhythm: regular Heart sounds: normal: S1, S2 - Gastrointestinal General gastrointestinal: Present: soft. Absent: tenderness - Integumentary Integumentary: Present: normal, normal turgor - Musculoskeletal Musculoskeletal: Present: generalized weakness - Psychiatric Psychiatric: Present: A&O x's 3 - Labs CBC & Chem 7: 12/06/23 04:41 12/05/23 03:04 Labs: Abnormal Lab Results - Last 24 Hours (Table) 12/05/23 12/05/23 12/05/23 Range/Units 03:04 12:00 16:58 WBC (4.50-10.00) X 10*3/uL RBC (4.10-5.20) X 10*6/uL MCV (80.0-97.0) FL MCHC (32.0-37.0) g/dL RDW (11.5-14.5) % Immature Gran # 0.12 H (0.00-0.04) X 10*3/uL Neutrophils # 13.63 H (1.80-7.70) X 10*3/uL Lymphocytes # 0.50 L (0.90-5.00) X 10*3/uL Eosinophils # 0 L (0.04-0.35) X 10*3/uL Macrocytosis (manual) 2+ A POC Glucose (mg/dL) 135 H 140 H (70-110) mg/dL 12/05/23 12/06/23 12/06/23 Range/Units 20:06 04:41 05:14 WBC 11.35 H (4.50-10.00) X 10*3/uL RBC 3.80 L (4.10-5.20) X 10*6/uL MCV 108.4 H (80.0-97.0) FL MCHC 29.4 L (32.0-37.0) g/dL RDW 20.5 H (11.5-14.5) % Immature Gran # (0.00-0.04) X 10*3/uL Neutrophils # (1.80-7.70) X 10*3/uL Lymphocytes # (0.90-5.00) X 10*3/uL Eosinophils # (0.04-0.35) X 10*3/uL Macrocytosis (manual) POC Glucose (mg/dL) 156 H 289 H (70-110) mg/dL Assessment and Plan (1) COPD exacerbation Current Visit: Yes Status: Acute Code(s): J44.1 - CHRONIC OBSTRUCTIVE PULMONARY DISEASE W (ACUTE) EXACERBATION SNOMED Code(s): 051080078 (2) CAD (coronary artery disease) Current Visit: No Status: Acute Code(s): I25.10 - ATHSCL HEART DISEASE OF [place] CORONARY ARTERY W/O ANG PCTRS SNOMED Code(s): 19859976 (3) Acute hypoxic respiratory failure Current Visit: No Status: Acute Code(s): J96.01 - ACUTE RESPIRATORY FAILURE WITH HYPOXIA SNOMED Code(s): 25327978 (4) Hypothyroid Current Visit: No Status: Acute Code(s): E03.9 - HYPOTHYROIDISM, UNSPECIFIED SNOMED Code(s): 86766610 (5) Tobacco abuse Current Visit: No Status: Acute Code(s): Z72.0 - TOBACCO USE SNOMED Code(s): 184523027 Plan: Consult to hospice to have discussion with patient and family. Await patient and family's decision on path forward. Continue to monitor blood pressure, discontinue Catapres at this time. Patient seen and evaluated by nurse practitioner, physician in agreement with plan
[2023-12-06 10:35] LABS: ALT 15 U/L (8-44); AST 23 U/L (13-35); Albumin 3.9 g/dL (3.8-4.9); Albumin/Globulin Ratio 1.77 Ratio (1.60-3.17); Alkaline Phosphatase 103 U/L (41-126); BUN/Creat Ratio 18.08 Ratio (12.00-20.00); Blood Urea Nitrogen 23.5 mg/dL (9.0-27.0); Calcium 8.5 mg/dL (8.7-10.3); Carbon Dioxide 17.6 mmol/L (21.6-31.8); Chloride 114 mmol/L (96-109); Globulin 2.2 g/dL (1.6-3.3); Glucose 295 mg/dL (70-110); Potassium 4.5 mmol/L (3.5-5.5); Sodium 143 mmol/L (135-145); Total Bilirubin <0.2 mg/dL (0.3-1.2); Total Protein 6.1 g/dL (6.2-8.2)
[2023-12-06] MEDS: MIDODRINE 5 MG TAB PO ONE (11:19)
--- NOTE | 2023-12-06 11:54 | P.PN ---
Subjective Progress Note Date: 12/06/23 This is a 63-year-old female with known history of severe end-stage COPD, O2 dependent, maintained on multiple bronchodilators including DuoNeb, Trelegy, and albuterol. Patient is not prednisone dependent, had multiple admissions in the past with acute hypoxic and hypercapnic respiratory failure. This time the patient was brought into the ER with complaining of shortness of breath over the last few days, and daughter has been noticing altered mental status. ABG on her initial evaluation in the ER showed a pO2 of 78 pCO2 56 and pH of 7.18. Hence the patient was placed on BiPAP, mental status improved on BiPAP, nonetheless considering the patient was marginal, she was admitted to the ICU and this consult was initiated. The patient herself does not remember how she ended up in the ER, but according to the daughter her mental status worsens every time her pCO2 is above 50. Patient had previous similar admissions, FEV1 is normally in the range of 25%, DLCO is in the range of 23%. I evaluated this patient, and her mental status seems to be much better this morning remains on BiPAP, and wi ll try to transition to nasal cannula as tolerated. Time patient is on bronchodilators and steroids. Patient evaluated today on 12/04/2023, on 2 L nasal cannula, in no distress, last night she was on BiPAP 12//40%, tolerated BiPAP well, today she is relatively asymptomatic, she is even asking to be discharged home. On physical examination today is continues to have some wheezing, I do not believe the patient is quite ready to be discharged home yet. However she could be transferred out of the ICU to regular medical floor. WBC count is 20.1 hemoglobin is 13.1 electrolytes are normal bicarb remains a bit low at 17 BUN is 15 creatinine 1.01 The patient is seen today December 05, 2023 in follow-up on the regular medical floor. She is sitting up in bed. Awake and alert in no acute distress. She is dyspneic with conversation. Dyspneic with minimal exertion. White count 14.6. She is maintaining O2 saturations in the 90s on 5 L/min per nasal cannula. Hemoglobin 11.2. Platelets 271. Sodium 145. Potassium 3.7. Bicarb 21. BUN 21. Creatinine 1.3. Glucose 146. He is continued on DuoNeb inhalations, her home Trelegy, Solu-Medrol. Heparin for DVT prophylaxis. The patient is seen today December 06, 2023 in follow-up on the regular medical floor. She is currently awake and alert in no acute distress. Sitting up in bed. Maintaining O2 saturations in the 90s on 3 L/min per nasal cannula. Yesterday she was having issues with lethargy and altered mental status and was placed back on BiPAP 12/6 and 40% FiO2 until she recovered. She is continued on DuoNeb and elations, her home Trelegy, Solu-Medrol. Heparin for DVT prophylaxis. Her family is at the bedside. They understand the severity of her lung disease. They are planning on having a hospice meeting later today. White count 11.3. Hemoglobin 12.5. Platelets 264. Sodium 143. Potassium 4.5. Bicarb 18. BUN 23. Creatinine 1.3. Glucose 295. Objective - Vital Signs Vital signs: Vital Signs Temp 98.3 F 12/06/23 08:00 Pulse 112 H 12/06/23 08:53 Resp 16 12/06/23 08:00 BP 91/44 12/06/23 08:00 Pulse Ox 92 L 12/06/23 08:53 FiO2 40 12/06/23 00:35 Intake & Output 12/05/23 12/06/23 12/06/23 18:59 06:59 18:59 Intake Total 118 118 Output Total 100 Balance 118 -100 118 Intake: Oral 118 118 Output: Urine 100 Other: Voiding Method Diaper Diaper # Voids 0 - Exam GENERAL EXAM: Alert, awake 63-year-old female, on 3 L nasal cannula, fairly comfortable in no apparent distress. HEAD: Normocephalic. EYES: Normal reaction of pupils, equal size. NOSE: Clear with pink turbinates. THROAT: No erythema or exudates. NECK: No masses, no JVD. CHEST: No chest wall deformity. LUNGS: Equal air entry with bilateral end expiratory wheeze, diminished. CVS: S1 and S2 normal with no audible murmur, regular rhythm. ABDOMEN: No hepatosplenomegaly, normal bowel sounds, no guarding or rigidity. SPINE: No scoliosis or deformity SKIN: No rashes CENTRAL NERVOUS SYSTEM: No focal deficits, tone is normal in all 4 extremities. EXTREMITIES: There is no peripheral edema. No clubbing, no cyanosis. Peripheral pulses are intact. - Labs CBC & Chem 7: 12/06/23 04:41 12/06/23 04:41 Labs: Abnormal Lab Results - Last 24 Hours (Table) 12/05/23 12/05/23 12/05/23 Range/Units 03:04 12:00 16:58 WBC (4.50-10.00) X 10*3/uL RBC (4.10-5.20) X 10*6/uL MCV (80.0-97.0) FL MCHC (32.0-37.0) g/dL RDW (11.5-14.5) % Immature Gran # 0.12 H (0.00-0.04) X 10*3/uL Neutrophils # 13.63 H (1.80-7.70) X 10*3/uL Lymphocytes # 0.50 L (0.90-5.00) X 10*3/uL Eosinophils # 0 L (0.04-0.35) X 10*3/uL Macrocytosis (manual) 2+ A Chloride (96-109) mmol/L Carbon Dioxide (21.6-31.8) mmol/L Est GFR (CKD-EPI) (>=60) Glucose (70-110) mg/dL POC Glucose (mg/dL) 135 H 140 H (70-110) mg/dL Calcium (8.7-10.3) mg/dL Total Bilirubin (0.3-1.2) mg/dL Total Protein (6.2-8.2) g/dL 12/05/23 12/06/23 12/06/23 Range/Units 20:06 04:41 04:41 WBC 11.35 H (4.50-10.00) X 10*3/uL RBC 3.80 L (4.10-5.20) X 10*6/uL MCV 108.4 H (80.0-97.0) FL MCHC 29.4 L (32.0-37.0) g/dL RDW 20.5 H (11.5-14.5) % Immature Gran # (0.00-0.04) X 10*3/uL Neutrophils # (1.80-7.70) X 10*3/uL Lymphocytes # (0.90-5.00) X 10*3/uL Eosinophils # (0.04-0.35) X 10*3/uL Macrocytosis (manual) Chloride 114 H (96-109) mmol/L Carbon Dioxide 17.6 L (21.6-31.8) mmol/L Est GFR (CKD-EPI) 46 L (>=60) Glucose 295 H (70-110) mg/dL POC Glucose (mg/dL) 156 H (70-110) mg/dL Calcium 8.5 L (8.7-10.3) mg/dL Total Bilirubin <0.2 L (0.3-1.2) mg/dL Total Protein 6.1 L (6.2-8.2) g/dL 12/06/23 Range/Units 05:14 WBC (4.50-10.00) X 10*3/uL RBC (4.10-5.20) X 10*6/uL MCV (80.0-97.0) FL MCHC (32.0-37.0) g/dL RDW (11.5-14.5) % Immature Gran # (0.00-0.04) X 10*3/uL Neutrophils # (1.80-7.70) X 10*3/uL Lymphocytes # (0.90-5.00) X 10*3/uL Eosinophils # (0.04-0.35) X 10*3/uL Macrocytosis (manual) Chloride (96-109) mmol/L Carbon Dioxide (21.6-31.8) mmol/L Est GFR (CKD-EPI) (>=60) Glucose (70-110) mg/dL POC Glucose (mg/dL) 289 H (70-110) mg/dL Calcium (8.7-10.3) mg/dL Total Bilirubin (0.3-1.2) mg/dL Total Protein (6.2-8.2) g/dL Assessment and Plan Assessment: Acute on chronic hypoxic and hypercapnic respiratory failure secondary to COPD Acute COPD exacerbation Acute CO2 narcosis and metabolic encephalopathy altered mental status, improves on BiPAP Severe chronic obstructive pulmonary disease, with a baseline FEV1 25% of predicted, maintained on Trelegy on an outpatient basis Chronic ongoing tobacco dependence History of hyperlipidemia Coronary artery disease, with multiple previous coronary stents, most recent cardiac catheterization from 10/17/2022 showed patent stent to LAD. No other significant abnormalities other Carotid artery stenosis, status post left carotid stenting Hypothyroidism History of seizure disorder Plan: The patient was seen and evaluated Labs and medications reviewed Continue the current treatment plan Patient does get hypercapnic and altered when off BiPAP for an extended time The patient again states she would not want to be on life support Family is planning for a hospice meeting today DNR CODE STATUS This patient was seen independently by the pulmonary nurse practitioner addressing pulmonary issues I have personally seen and examined the patient, performed the documentation and the assessment and plan as written. Number of minutes spent on the visit: 24.
[2023-12-06 12:16] LABS: Glucose,Whole Blood 153 mg/dL (70-110)
[2023-12-06] MEDS: oxyCODONE-APAP 5-325MG 1 EACH TAB PO PRN (15:29)
[2023-12-06 17:27] LABS: Glucose,Whole Blood 211 mg/dL (70-110)
[2023-12-06] MEDS: MIDODRINE 5 MG TAB PO SCH (17:50)
[2023-12-06] MEDS: SODIUM CHLORIDE 0.9% 500 ML 500 ML IV ONE (18:23)
[2023-12-06 20:19] LABS: Glucose,Whole Blood 163 mg/dL (70-110)
[2023-12-07 06:10] LABS: Glucose,Whole Blood 138 mg/dL (70-110)
--- NOTE | 2023-12-07 09:09 | P.PN ---
Subjective Progress Note Date: 12/07/23 Principal diagnosis: Exacerbation of COPD. The patient is a 63-year-old white female with recurrent exacerbation of COPD. They have talked to hospice and she is ascertaining all information. She is despondent about using hospice at this time. I did tell the patient it could h elp her or possibly palliative care. Objective - Vital Signs Vital signs: Vital Signs Temp 98.1 F 12/06/23 23:41 Pulse 104 H 12/07/23 08:35 Resp 18 12/07/23 03:34 BP 101/52 12/07/23 03:34 Pulse Ox 93 L 12/07/23 03:34 FiO2 40 12/07/23 00:57 Intake & Output 12/06/23 12/07/23 12/07/23 18:59 06:59 18:59 Intake Total 354 180 Output Total 275 Balance 79 180 Intake: Oral 354 180 Output: Urine 275 Other: Voiding Method External Catheter External Catheter # Voids 2 1 - Constitutional General appearance: Present: average body habitus, cooperative, mild distress, obese - EENT Eyes: Absent: abnormal pupil - Neck Neck: Absent: lymphadenopathy - Respiratory Respiratory: bilateral: diminished, rhonchi - Cardiovascular Rhythm: regular Heart sounds: normal: S1, S2 Abnormal Heart Sounds: Absent: S3 Gallop - Gastrointestinal General gastrointestinal: Present: soft. Absent: tenderness - Labs CBC & Chem 7: 12/06/23 04:41 12/06/23 04:41 Labs: Abnormal Lab Results - Last 24 Hours (Table) 12/06/23 12/06/23 12/06/23 Range/Units 04:41 12:14 17:10 Chloride 114 H (96-109) mmol/L Carbon Dioxide 17.6 L (21.6-31.8) mmol/L Est GFR (CKD-EPI) 46 L (>=60) Glucose 295 H (70-110) mg/dL POC Glucose (mg/dL) 153 H 211 H (70-110) mg/dL Calcium 8.5 L (8.7-10.3) mg/dL Total Bilirubin <0.2 L (0.3-1.2) mg/dL Total Protein 6.1 L (6.2-8.2) g/dL 12/06/23 12/07/23 Range/Units 20:17 06:09 Chloride (96-109) mmol/L Carbon Dioxide (21.6-31.8) mmol/L Est GFR (CKD-EPI) (>=60) Glucose (70-110) mg/dL POC Glucose (mg/dL) 163 H 138 H (70-110) mg/dL Calcium (8.7-10.3) mg/dL Total Bilirubin (0.3-1.2) mg/dL Total Protein (6.2-8.2) g/dL Assessment and Plan (1) COPD exacerbation Current Visit: Yes Status: Acute Code(s): J44.1 - CHRONIC OBSTRUCTIVE PULMONARY DISEASE W (ACUTE) EXACERBATION SNOMED Code(s): 540041558 (2) Acute hypoxic respiratory failure Current Visit: No Status: Acute Code(s): J96.01 - ACUTE RESPIRATORY FAILURE WITH HYPOXIA SNOMED Code(s): 04735660 Plan: Continue BiPAP with steroids. Hospice evaluation is pending. Appreciate consultants input. Will continue to follow. Check CBC and CMP in AM.
--- NOTE | 2023-12-07 11:08 | P.PN ---
Subjective Progress Note Date: 12/07/23 Principal diagnosis: Respiratory failure. This is a 63-year-old female with known history of severe end-stage COPD, O2 dependent, maintained on multiple bronchodilators including DuoNeb, Trelegy, and albuterol. Patient is not prednisone dependent, had multiple admissions in the past with acute hypoxic and hypercapnic respiratory failure. This time the patient was brought into the ER with complaining of shortness of breath over the last few days, and daughter has been noticing altered mental status. ABG on her initial evaluation in the ER showed a pO2 of 78 pCO2 56 and pH of 7.18. Hence the patient was placed on BiPAP, mental status improved on BiPAP, nonetheless considering the patient was marginal, she was admitted to the ICU and this consult was initiated. The patient herself does not remember how she ended up in the ER, but according to the daughter her mental status worsens every time her pCO2 is above 50. Patient had previous similar admissions, FEV1 is normally in the range of 25%, DLCO is in the range of 23%. I evaluated this patient, and her mental status seems to be much better this morning remains on BiPAP, and will try to transition to nasal cannula as tolerated. Time patient is on bronchodilators and steroids. Patient evaluated today on 12/04/2023, on 2 L nasal cannula, in no distress, last night she was on BiPAP 12/6/40%, tolerated BiPAP well, today she is relatively asymptomatic, she is even asking to be discharged home. On physical examination today is continues to have some wheezing, I do not believe the patient is quite ready to be discharged home yet. However she could be transferred out of the ICU to regular medical floor. WBC count is 20.1 hemoglobin is 13.1 electrolytes are normal bicarb remains a bit low at 17 BUN is 15 creatinine 1.01 The patient is seen today December 05, 2023 in follow-up on the regular medical floor. She is sitting up in bed. Awake and alert in no acute distress. She is dyspneic with conversation. Dyspneic with minimal exertion. White count 14.6. She is maintaining O2 saturations in the 90s on 5 L/min per nasal cannula. Hemoglobin 11.2. Platelets 271. Sodium 145. Potassium 3.7. Bicarb 21. BUN 21. Creatinine 1.3. Glucose 146. He is continued on DuoNeb inhalations, her home Trelegy, Solu-Medrol. Heparin for DVT prophylaxis. The patient is seen today December 06, 2023 in follow-up on the regular medical floor. She is currently awake and alert in no acute distress. Sitting up in bed. Maintaining O2 saturations in the 90s on 3 L/min per nasal cannula. Yesterday she was having issues with lethargy and altered mental status and was placed back on BiPAP 12/6 and 40% FiO2 until she recovered. She is continued on DuoNeb and elations, her home Trelegy, Solu-Medrol. Heparin for DVT prophylaxis. Her family is at the bedside. They understand the severity of her lung disease. They are planning on having a hospice meeting later today. White count 11.3. Hemoglobin 12.5. Platelets 264. Sodium 143. Potassium 4.5. Bicarb 18. BUN 23. Creatinine 1.3. Glucose 295. Progress note dated December 07, 2023. 63-year-old female seen today in room 368. Many family members are at the bedside. The patient apparently was seen by hospice yesterday, but the daughter states that maybe the mother did not understand the conversation. She is currently on 3 L by nasal cannula. No IV fluids. She spent from 6 PM to 1 AM on BiPAP yesterday, with settings of 12/6, and 40%. Current labs include only a glucose of 138. Many questions were asked, but I did tell them that I could not make the decision as to whether or not hospice was appropriate. Apparently ad ditional family members are on their way. Objective - Vital Signs Vital signs: Vital Signs Temp 98.3 F 12/07/23 08:00 Pulse 104 H 12/07/23 08:35 Resp 18 12/07/23 08:00 BP 126/58 12/07/23 08:00 Pulse Ox 94 L 12/07/23 08:00 FiO2 40 12/07/23 00:57 Intake & Output 12/06/23 12/07/23 12/07/23 18:59 06:59 18:59 Intake Total 354 180 Output Total 275 Balance 79 180 Intake: Oral 354 180 Output: Urine 275 Other: Voiding Method External Catheter External Catheter # Voids 2 1 - Exam No acute distress, oriented 3. Mild tachypnea. Currently on 3 L. HEENT examination is grossly unremarkable. Mucous membranes are moist. No oral lesions. Neck supple. Full range of motion. No adenopathy thyromegaly or neck vein distention. Cardiovascular examination reveals regular rhythm rate. S1-S2 normal. No S3 or S4. No discernible murmur noted. Lungs reveal scattered inspiratory and expiratory rhonchi and wheezes. No crackles. Breath sounds equal bilaterally. Breath sounds are diminished. Abdomen soft bowel sounds are heard. No masses or tenderness. Extremities are intact. No cyanosis clubbing or edema. Skin reveals multiple areas of ecchymoses. Neurologic examination is brief but nonfocal. - Labs CBC & Chem 7: 12/06/23 04:41 12/06/23 04:41 Labs: Abnormal Lab Results - Last 24 Hours (Table) 12/06/23 12/06/23 12/06/23 Range/Units 12:14 17:10 20:17 POC Glucose (mg/dL) 153 H 211 H 163 H (70-110) mg/dL 12/07/23 Range/Units 06:09 POC Glucose (mg/dL) 138 H (70-110) mg/dL Assessment and Plan Assessment: Acute on chronic hypoxic and hypercapnic respiratory failure secondary to COPD. Acute COPD exacerbation. Acute CO2 narcosis and metabolic encephalopathy altered mental status, improves on BiPAP. Severe chronic obstructive pulmonary disease, with a baseline FEV1 25% of predicted. Chronic ongoing tobacco dependence. History of hyperlipidemia. Coronary artery disease, with multiple previous coronary stents, most recent cardiac catheterization from 10/17/2022 showed patent stent to LAD. Carotid artery stenosis, status post left carotid stenting. Hypothyroidism. History of seizure disorder. Plan: Plan dated December 07, 2023. The patient is seen in room 368. She continues on oxygen by nasal cannula at 3 L. She did use BiPAP last night for about 7 hours. Apparently the patient was seen by hospice yesterday. The family is made no final decision about hospice. Labs, x-rays, and all medications are reviewed. The patient is a DO NOT RESUSCITATE patient. Hospice consideration in this patient I believe to be appropriate. Time with Patient: Less than 30
[2023-12-07 11:37] LABS: Glucose,Whole Blood 171 mg/dL (70-110)
[2023-12-07 16:54] LABS: Glucose,Whole Blood 194 mg/dL (70-110)
[2023-12-08 07:06] LABS: Glucose,Whole Blood 123 mg/dL (70-110)
[2023-12-08 07:37] LABS: Anisocytosis Slight; HCT 39.4 % (34.0-46.0); HGB 12.2 gm/dL (11.4-16.0); Hypochromasia Marked; MCH 33.1 pg (25.0-35.0); MCHC 31.1 g/dL (31.0-37.0); MCV 106.3 fL (80.0-100.0); Macrocytosis Marked; Mean Platelet Volume 7.7; Platelet Count 295 k/uL (150-450); RDW 18.7 % (11.5-15.5)
[2023-12-08 07:47] LABS: ALT 55 U/L (4-34); AST 37 U/L (14-36); African American GFR (CKD) 62 (>60 ml/min/1.73 sqM); Albumin 3.7 g/dL (3.5-5.0); Alkaline Phosphatase 65 U/L (38-126); Anion Gap 8 mmol/L; Blood Urea Nitrogen 26 mg/dL (7-17); Calcium 8.4 mg/dL (8.4-10.2); Carbon Dioxide 20 mmol/L (22-30); Chloride 114 mmol/L (98-107); Glucose 122 mg/dL (74-99); Non-African American GFR(CKD) 54 (>60 ml/min/1.73 sqM); Potassium 3.2 mmol/L (3.5-5.1); Sodium 142 mmol/L (137-145); Total Bilirubin 0.3 mg/dL (0.2-1.3); Total Protein 6.2 g/dL (6.3-8.2)
--- NOTE | 2023-12-08 08:29 | P.PN ---
Subjective Progress Note Date: 12/08/23 This is a 63-year-old female with a past medical history of COPD who presented to the emergency department with complaints of shortness of breath that has progressively worsened over the last several days. Patient is maintained on oxygen at home at 2 L. Patient was reportedly confused on admission. Patient was placed on BiPAP and had a short stay in the ICU for being transferred to regular medical floor. Patient is seen this morning sitting up in bed. She is alert and oriented x 4. She is currently on 2 L of oxygen via nasal cannula. She reports she is feeling much better. Her vitals are stable. And she is tolerating diet. 12/06/2023 Patient seen this morning sitting up in bed with family present. Patient's breathing declined yesterday and she did have to be placed on BiPAP during the day. Patient also became hypotensive yesterday. Care management and nursing staff discussed possible hospice with patient and both patient and family are interested at this time. 12/08/2023 Patient seen and evaluated laying in bed this morning. Daughter at bedside. Patient reports she had a good nights sleep last night and feels more well rested today. Patient and family have decided to proceed with hospice, and apparently hospice staff will be in today to coordinate. Objective - Vital Signs Vital signs: Vital Signs Temp 97.9 F 12/08/23 04:00 Pulse 78 12/08/23 08:12 Resp 20 12/08/23 04:00 BP 95/62 12/08/23 04:00 Pulse Ox 93 L 12/08/23 08:12 FiO2 40 12/08/23 04:00 Intake & Output 12/07/23 12/08/23 12/08/23 18:59 06:59 18:59 Intake Total 298 540 Output Total 300 Balance -2 540 Weight 76.9 kg Intake: Oral 298 540 Output: Urine 300 Other: Voiding Method External Catheter External Catheter # Voids 2 1 # Bowel Movements 2 - Constitutional General appearance: Present: cooperative, no acute distress - EENT Eyes: Present: PERRLA - Neck Neck: Present: normal ROM. Absent: lymphadenopathy, rigidity - Respiratory Respiratory: bilateral: rhonchi, wheezing - Cardiovascular Rhythm: regular Heart sounds: normal: S1, S2 - Gastrointestinal General gastrointestinal: Present: soft. Absent: tenderness - Integumentary Integumentary: Present: normal, normal turgor - Musculoskeletal Musculoskeletal: Present: generalized weakness - Psychiatric Psychiatric: Present: A&O x's 3 - Labs CBC & Chem 7: 12/08/23 06:59 12/08/23 06:59 Labs: Abnormal Lab Results - Last 24 Hours (Table) 12/07/23 12/07/23 12/08/23 Range/Units 11:35 16:48 06:59 WBC 19.0 H (3.8-10.6) k/uL RBC 3.70 L (3.80-5.40) m/uL MCV 106.3 H (80.0-100.0) fL RDW 18.7 H (11.5-15.5) % Macrocytosis Marked A Potassium (3.5-5.1) mmol/L Chloride (98-107) mmol/L Carbon Dioxide (22-30) mmol/L BUN (7-17) mg/dL Creatinine (0.52-1.04) mg/dL Glucose (74-99) mg/dL POC Glucose (mg/dL) 171 H 194 H (70-110) mg/dL AST (14-36) U/L ALT (4-34) U/L Total Protein (6.3-8.2) g/dL 12/08/23 12/08/23 Range/Units 06:59 07:03 WBC (3.8-10.6) k/uL RBC (3.80-5.40) m/uL MCV (80.0-100.0) fL RDW (11.5-15.5) % Macrocytosis Potassium 3.2 L (3.5-5.1) mmol/L Chloride 114 H (98-107) mmol/L Carbon Dioxide 20 L (22-30) mmol/L BUN 26 H (7-17) mg/dL Creatinine 1.09 H (0.52-1.04) mg/dL Glucose 122 H (74-99) mg/dL POC Glucose (mg/dL) 123 H (70-110) mg/dL AST 37 H (14-36) U/L ALT 55 H (4-34) U/L Total Protein 6.2 L (6.3-8.2) g/dL Assessment and Plan (1) COPD exacerbation Current Visit: Yes Status: Acute Code(s): J44.1 - CHRONIC OBSTRUCTIVE PULMONARY DISEASE W (ACUTE) EXACERBATION SNOMED Code(s): 659955438 (2) CAD (coronary artery disease) Current Visit: No Status: Acute Code(s): I25.10 - ATHSCL HEART DISEASE OF [place] CORONARY ARTERY W/O ANG PCTRS SNOMED Code(s): 14635548 (3) Acute hypoxic respiratory failure Current Visit: No Status: Acute Code(s): J96.01 - ACUTE RESPIRATORY FAILURE WITH HYPOXIA SNOMED Code(s): 33546922 (4) Hypothyroid Current Visit: No Status: Acute Code(s): E03.9 - HYPOTHYROIDISM, UNSPECIFIED SNOMED Code(s): 30442915 (5) Tobacco abuse Current Visit: No Status: Acute Code(s): Z72.0 - TOBACCO USE SNOMED Code(s): 002496961 Plan: Await hospice meeting today Plan for possible discharge tomorrow Patient seen and evaluated by nurse practitioner, physician in agreement with plan
[2023-12-08 10:05] VITALS: BMI 28.2
--- NOTE | 2023-12-08 11:20 | P.PN ---
Subjective Progress Note Date: 12/08/23 Principal diagnosis: Respiratory failure. This is a 63-year-old female with known history of severe end-stage COPD, O2 dependent, maintained on multiple bronchodilators including DuoNeb, Trelegy, and albuterol. Patient is not prednisone dependent, had multiple admissions in the past with acute hypoxic and hypercapnic respiratory failure. This time the patient was brought into the ER with complaining of shortness of breath over the last few days, and daughter has been noticing altered mental status. ABG on her initial evaluation in the ER showed a pO2 of 78 pCO2 56 and pH of 7.18. Hence the patient was placed on BiPAP, mental status improved on BiPAP, nonetheless considering the patient was marginal, she was admitted to the ICU and this consult was initiated. The patient herself does not remember how she ended up in the ER, but according to the daughter her mental status worsens every time her pCO2 is above 50. Patient had previous similar admissions, FEV1 is normally in the range of 25%, DLCO is in the range of 23%. I evaluated this patient, and her mental status seems to be much better this morning remains on BiPAP, and will try to transition to nasal cannula as tolerated. Time patient is on bronchodilators and steroids. Patient evaluated today on 12/04/2023, on 2 L nasal cannula, in no distress, last night she was on BiPAP 12/6/40%, tolerated BiPAP well, today she is relatively asymptomatic, she is even asking to be discharged home. On physical examination today is continues to have some wheezing, I do not believe the patient is quite ready to be discharged home yet. However she could be transferred out of the ICU to regular medical floor. WBC count is 20.1 hemoglobin is 13.1 electrolytes are normal bicarb remains a bit low at 17 BUN is 15 creatinine 1.01 The patient is seen today December 05, 2023 in follow-up on the regular medical floor. She is sitting up in bed. Awake and alert in no acute distress. She is dyspneic with conversation. Dyspneic with minimal exertion. White count 14.6. She is maintaining O2 saturations in the 90s on 5 L/min per nasal cannula. Hemoglobin 11.2. Platelets 271. Sodium 145. Potassium 3.7. Bicarb 21. BUN 21. Creatinine 1.3. Glucose 146. He is continued on DuoNeb inhalations, her home Trelegy, Solu-Medrol. Heparin for DVT prophylaxis. The patient is seen today December 06, 2023 in follow-up on the regular medical floor. She is currently awake and alert in no acute distress. Sitting up in bed. Maintaining O2 saturations in the 90s on 3 L/min per nasal cannula. Yesterday she was having issues with lethargy and altered mental status and was placed back on BiPAP 12/6 and 40% FiO2 until she recovered. She is continued on DuoNeb and elations, her home Trelegy, Solu-Medrol. Heparin for DVT prophylaxis. Her family is at the bedside. They understand the severity of her lung disease. They are planning on having a hospice meeting later today. White count 11.3. Hemoglobin 12.5. Platelets 264. Sodium 143. Potassium 4.5. Bicarb 18. BUN 23. Creatinine 1.3. Glucose 295. Progress note dated December 07, 2023. 63-year-old female seen today in room 368. Many family members are at the bedside. The patient apparently was seen by hospice yesterday, but the daughter states that maybe the mother did not understand the conversation. She is currently on 3 L by nasal cannula. No IV fluids. She spent from 6 PM to 1 AM on BiPAP yesterday, with settings of 12/6, and 40%. Current labs include only a glucose of 138. Many questions were asked, but I did tell them that I could not make the decision as to whether or not hospice was appropriate. Apparently ad ditional family members are on their way. Progress note dated December 08, 2023. 63-year-old female seen today in room 368. Family members are at bedside. The patient continues on oxygen at 3 L by nasal cannula. Saturations are 93%. The patient is not receiving any IV fluids. The patient is agreeable to home hospice. She is hoping to be discharged tomorrow with CPAP and oxygen. White count is 19, hemoglobin 12.2, hematocrit 39.4, and platelet count is normal. Sodium 142, potassium 3.2, chlorides 114, CO2 20, BUN 26, creatinine 1.09. Glucose 123. Liver function are a bit elevated. Objective - Vital Signs Vital signs: Vital Signs Temp 98.1 F 12/08/23 08:20 Pulse 80 12/08/23 08:30 Resp 20 12/08/23 08:20 BP 88/54 12/08/23 08:20 Pulse Ox 93 L 12/08/23 08:12 FiO2 40 12/08/23 04:00 Intake & Output 12/07/23 12/08/23 12/08/23 18:59 06:59 18:59 Intake Total 298 540 120 Output Total 300 Balance -2 540 120 Weight 76.9 kg 76.9 kg Intake: Oral 298 540 120 Output: Urine 300 Other: Voiding Method External Catheter External Catheter External Catheter # Voids 2 1 # Bowel Movements 2 - Exam No acute distress, oriented 3. Mild tachypnea. Currently on 3 L. HEENT examination is grossly unremarkable. Mucous membranes are moist. No oral lesions. Neck supple. Full range of motion. No adenopathy thyromegaly or neck vein distention. Cardiovascular examination reveals regular rhythm rate. S1-S2 normal. No S3 or S4. No discernible murmur noted. Lungs reveal scattered inspiratory and expiratory rhonchi and wheezes. No crackles. Breath sounds equal bilaterally. Breath sounds are diminished. Abdomen soft bowel sounds are heard. No masses or tenderness. Extremities are intact. No cyanosis clubbing or edema. Skin reveals multiple areas of ecchymoses. Neurologic examination is brief but nonfocal. - Labs CBC & Chem 7: 12/08/23 06:59 12/08/23 06:59 Labs: Abnormal Lab Results - Last 24 Hours (Table) 12/07/23 12/07/23 12/08/23 Range/Units 11:35 16:48 06:59 WBC 19.0 H (3.8-10.6) k/uL RBC 3.70 L (3.80-5.40) m/uL MCV 106.3 H (80.0-100.0) fL RDW 18.7 H (11.5-15.5) % Macrocytosis Marked A Potassium (3.5-5.1) mmol/L Chloride (98-107) mmol/L Carbon Dioxide (22-30) mmol/L BUN (7-17) mg/dL Creatinine (0.52-1.04) mg/dL Glucose (74-99) mg/dL POC Glucose (mg/dL) 171 H 194 H (70-110) mg/dL AST (14-36) U/L ALT (4-34) U/L Total Protein (6.3-8.2) g/dL 12/08/23 12/08/23 Range/Units 06:59 07:03 WBC (3.8-10.6) k/uL RBC (3.80-5.40) m/uL MCV (80.0-100.0) fL RDW (11.5-15.5) % Macrocytosis Potassium 3.2 L (3.5-5.1) mmol/L Chloride 114 H (98-107) mmol/L Carbon Dioxide 20 L (22-30) mmol/L BUN 26 H (7-17) mg/dL Creatinine 1.09 H (0.52-1.04) mg/dL Glucose 122 H (74-99) mg/dL POC Glucose (mg/dL) 123 H (70-110) mg/dL AST 37 H (14-36) U/L ALT 55 H (4-34) U/L Total Protein 6.2 L (6.3-8.2) g/dL Assessment and Plan Assessment: Acute on chronic hypoxic and hypercapnic respiratory failure secondary to COPD. Acute COPD exacerbation. Acute CO2 narcosis and metabolic encephalopathy altered mental status, improves on BiPAP. Severe chronic obstructive pulmonary disease, with a baseline FEV1 25% of predicted. Chronic ongoing tobacco dependence. History of hyperlipidemia. Coronary artery disease, with multiple previous coronary stents, most recent cardiac catheterization from 10/17/2022 showed patent stent to LAD. Carotid artery stenosis, status post left carotid stenting. Hypothyroidism. History of seizure disorder. Plan: Plan dated December 07, 2023. The patient is seen in room 368. She continues on oxygen by nasal cannula at 3 L. She did use BiPAP last night for about 7 hours. Apparently the patient was seen by hospice yesterday. The family is made no final decision about hospice. Labs, x-rays, and all medications are reviewed. The patient is a DO NOT RESUSCITATE patient. Hospice consideration in this patient I believe to be appropriate. Plan dated December 08, 2023. The patient is hoping to be discharged tomorrow, with CPAP and oxygen. She does agree to home hospice treatment. Labs, x-rays, and medications are reviewed. The patient is a DO NOT RESUSCITATE patient. Overall prognosis remains very poor. She does have end-stage COPD. Up until this admission, the patient was still smoking. This was confirmed by family members, and her daughter. The family does seem realistic. Time with Patient: Less than 30
[2023-12-08 11:41] LABS: Glucose,Whole Blood 171 mg/dL (70-110)
[2023-12-08] MEDS ORDERED: oxyCODONE-APAP 5-325MG 1 EACH TAB PO PRN (12:13)
[2023-12-08] MEDS: oxyCODONE-APAP 7.5-325MG 1 EACH TAB PO PRN (14:05)
[2023-12-08 16:47] LABS: Glucose,Whole Blood 157 mg/dL (70-110)
[2023-12-09 11:28] VITALS: BP 116/56; RESP 22; TEMP 97
[2023-12-09] MEDS: POTASSIUM CHLORIDE ER 20 MEQ TAB.ER PO STA (11:29)
[2023-12-09 11:35] LABS: Glucose,Whole Blood 105 mg/dL (70-110)
[2023-12-09 11:48] VITALS: PULSE 100
--- NOTE | 2023-12-09 12:49 | P.DS ---
Providers Date of admission: 12/02/23 20:24 Expected date of discharge: 12/09/23 Attending physician: Jose F Mcwilliams Consults: 12/02/23 20:24 Consult Physician Stat Consulting Provider: Sandeep Thurman Consult Reason/Comments: COPD exacerbation Do you want consulting provider notified?: Yes Primary care physician: Jose F Mcwilliams Hospital Course: Discharge diagnoses; Acute on chronic hypoxic and hypercapnic respiratory failure secondary to COPD. Acute COPD exacerbation. Acute CO2 narcosis and metabolic encephalopathy altered mental status, improves on BiPAP. Severe chronic obstructive pulmonary disease, with a baseline FEV1 25% of predicted. Chronic ongoing tobacco dependence. History of hyperlipidemia. Coronary artery disease, with multiple previous coronary stents, most recent ca rdiac catheterization from 10/17/2022 showed patent stent to LAD. Carotid artery stenosis, status post left carotid stenting. Hypothyroidism. History of seizure disorder. Hospital course; This is a 63-year-old female with a past medical history of COPD who presented to the emergency department with complaints of shortness of breath that has progressively worsened over the last several days. Patient is maintained on oxygen at home at 2 L. Patient was reportedly confused on admission. Patient was placed on BiPAP and had a short stay in the ICU for being transferred to regular medical floor. Patient is seen this morning sitting up in bed. She is alert and oriented x 4. She is currently on 2 L of oxygen via nasal cannula. She reports she is feeling much better. Her vitals are stable. And she is tolerating diet. 12/06/2023 Patient seen this morning sitting up in bed with family present. Patient's breathing declined yesterday and she did have to be placed on BiPAP during the d ay. Patient also became hypotensive yesterday. Care management and nursing staff discussed possible hospice with patient and both patient and family are interested at this time. 12/08/2023 Patient seen and evaluated laying in bed this morning. Daughter at bedside. Patient reports she had a good nights sleep last night and feels more well rested today. Patient and family have decided to proceed with hospice, and apparently hospice staff will be in today to coordinate. 12/08. Dr. Hopkins took over care. Patient being discharged home with hospice PHYSICAL EXAMINATION: GENERAL: The patient is alert and oriented x3, not in any acute distress. Chronically ill looking HEENT: Pupils are round and equally reacting to light. EOMI. No scleral icterus. No conjunctival pallor. Normocephalic, atraumatic. No pharyngeal erythema. No thyromegaly. CARDIOVASCULAR: S1 and S2 present. No murmurs, rubs, or gallops. PULMONARY: Chest is clear to auscultation, no wheezing or crackles. ABDOMEN: Soft, nontender, nondistended, normoactive bowel sounds. No palpable organomegaly. MUSCULOSKELETAL: No joint swelling or deformity. EXTREMITIES: No cyanosis, clubbing, or pedal edema. NEUROLOGICAL: Gross neurological examination did not reveal any focal deficits. SKIN: No rashes. Dictation was produced using [employer] dictation software. please excuse any grammatical, word or spelling errors. Patient Condition at Discharge: Good Plan - Discharge Summary Discharge Rx Participant: Yes New Discharge Prescriptions: New Midodrine [ProAmatine] 5 mg PO AC-BID #30 tab Continue Escitalopram [Lexapro] 40 mg PO DAILY Nitroglycerin Sl Tabs [Nitrostat] 0.4 mg SL Q5M PRN PRN Reason: Chest Pain Doxepin [SINEquan] 10 mg PO HS levETIRAcetam [Keppra] 2,000 mg PO DAILY Albuterol Sulfate [Albuterol Sulfate Hfa] 1 - 2 puff INHALATION RT-Q6H PRN PRN Reason: Shortness Of Breath Aspirin 81 mg PO DAILY tab Gabapentin 800 mg PO TID Ibuprofen [Motrin] 800 mg PO Q8HR PRN #30 tab PRN Reason: Pain oxyCODONE HCL/ACETAMINOPHEN [oxyCODONE HCL/ACETAMINOPHEN 5-325] 1 tab PO TID PRN PRN Reason: Pain Fluticasone/Umeclidin/Vilanter [Trelegy Ellipta 200-62.5-25] 1 puff INHALATION RT-DAILY buprenorphine HCL [Subutex] 8 mg SL BID Levothyroxine Sodium 200 mcg PO DAILY Atorvastatin [Lipitor] 40 mg PO HS #30 tab Clopidogrel [Plavix] 75 mg PO DAILY #90 tablet cloNIDine HCL [Catapres] 0.2 mg PO HS Albuterol Nebulized [Ventolin Nebulized] 2.5 mg INHALATION RT-QID PRN PRN Reason: Shortness Of Breath levETIRAcetam [Keppra] 1,000 mg PO HS Discontinued Midodrine HCl [ProAmantine] 2.5 mg PO AC-BID Discharge Medication List Escitalopram [Lexapro] 40 mg PO DAILY 11/28/17 [History] Levothyroxine Sodium 200 mcg PO DAILY 08/20/20 [History] Nitroglycerin Sl Tabs [Nitrostat] 0.4 mg SL Q5M PRN 08/20/20 [History] Doxepin [SINEquan] 10 mg PO HS 02/25/22 [History] Atorvastatin [Lipitor] 40 mg PO HS #30 tab 06/21/22 [Rx] Clopidogrel [Plavix] 75 mg PO DAILY #90 tablet 10/28/22 [Rx] Albuterol Sulfate [Albuterol Sulfate Hfa] 1 - 2 puff INHALATION RT-Q6H PRN 02/03/23 [History] cloNIDine HCL [Catapres] 0.2 mg PO HS 02/03/23 [History] levETIRAcetam [Keppra] 2,000 mg PO DAILY 02/03/23 [History] Aspirin 81 mg PO DAILY tab 02/25/23 [Rx] Albuterol Nebulized [Ventolin Nebulized] 2.5 mg INHALATION RT-QID PRN 04/09/23 [History] Gabapentin 800 mg PO TID 04/09/23 [History] Ibuprofen [Motrin] 800 mg PO Q8HR PRN #30 tab 09/30/23 [Rx] oxyCODONE HCL/ACETAMINOPHEN [oxyCODONE HCL/ACETAMINOPHEN 5-325] 1 tab PO TID PRN 11/24/23 [History] Fluticasone/Umeclidin/Vilanter [Trelegy Ellipta 200-62.5-25] 1 puff INHALATION RT-DAILY 11/25/23 [History] levETIRAcetam [Keppra] 1,000 mg PO HS 11/25/23 [History] buprenorphine HCL [Subutex] 8 mg SL BID 12/02/23 [History] Midodrine [ProAmatine] 5 mg PO AC-BID #30 tab 12/09/23 [Rx] Follow up Appointment(s)/Referral(s): Jose F Mcwilliams MD [Primary Care Provider] - As Needed [facility] [NON-STAFF] - As Needed Discharge Disposition: HOME SELF-CARE
--- NOTE | 2023-12-09 23:28 | PN ---
PROGRESS NOTE HISTORY OF PRESENT ILLNESS: A 63-year-old female seen today in room 368. The patient has decided to go home with hospice. I think that is a good decision given the severity of her chronic lung disease. She is currently on 3 L of nasal oxygen. She is not receiving any IV fluids. She is hoping that a CPAP device will have arrived at her house, to assist in her respiratory status. She had an uneventful night. Families are at the bedside. No new labs today other than a glucose of 105. PHYSICAL EXAMINATION: VITAL SIGNS: Current vital signs are reviewed. Temperature is 97, heart rate 96, respiratory rate 18, blood pressure 115/56, mean 76, and saturations are in the mid 90s on 3 L. GENERAL: She appears in no acute distress. No audible wheezing. No use of accessory muscles. No conversational dyspnea. HEENT: Grossly unremarkable. NECK: Supple. Full range of motion. No adenopathy. Neck veins are flat. CARDIOVASCULAR: Reveals regular rhythm and rate. S1, S2 normal. No S3, S4, or murmur. LUNGS: Reveal scattered rhonchi and wheezes. Breath sounds equal, but diminished throughout. No crackles. Saturations are in the mid 90s. ABDOMEN: Soft. Bowel sounds are heard. EXTREMITIES: Intact. No cyanosis, clubbing, or edema. SKIN: Without rash. NEUROLOGIC: Brief, but nonfocal. ASSESSMENT: 1. Acute on chronic hypoxemic hypercapnic respiratory failure secondary to severe/end- stage chronic obstructive pulmonary disease. 2. Acute chronic obstructive pulmonary disease exacerbation. 3. Acute CO2 narcosis and metabolic encephalopathy. 4. Severe chronic obstructive pulmonary disease, with an FEV1 25% of predicted. 5. Chronic and ongoing tobacco dependence. 6. History of hyperlipidemia. 7. Coronary artery disease with multiple previous coronary stents. 8. Carotid artery stenosis, status post left carotid stenting. 9. Hypothyroidism. 10.History of seizure disorder. PLAN: The patient is stable. From my perspective, the patient could be considered for possible discharge. She apparently is going home with hospice. They have requested a CPAP device, as well as a hospital bed, bedside commode, etc. We will continue to follow. Prognosis is poor. The patient is counseled about the importance of smoking cessation. MMODL / IJN: [id number] /
== END 2023-12-09 13:48 | disposition home or self-care (01) | DRG 189 ==
LOC: EC 17:42 → 2SICU 20:24 → 6NMEDSUR 12-04 15:58 → 3SCARD 12-06 19:21
PROVIDERS: ADMIT Family Medicine; ATTEND Family Medicine
PROC: 5A09557 Assistance with Respiratory Ventilation, Greater than 96 Consecutive Hours, Continuous Positive Airway Pressure (ICD-10-PCS; principal; 2023-12-02)
DX: J96.21 Acute and chronic respiratory failure with hypoxia (principal); G93.41 Metabolic encephalopathy; J44.1 Chronic obstructive pulmonary disease with (acute) exacerbation; N17.9 Acute kidney failure, unspecified; J96.22 Acute and chronic respiratory failure with hypercapnia; G89.29 Other chronic pain; M54.9 Dorsalgia, unspecified; G40.909 Epilepsy, unspecified, not intractable, without status epilepticus; I25.10 Atherosclerotic heart disease of native coronary artery without angina pectoris; Z66 Do not resuscitate; Z95.5 Presence of coronary angioplasty implant and graft; E78.5 Hyperlipidemia, unspecified; E03.9 Hypothyroidism, unspecified; I65.29 Occlusion and stenosis of unspecified carotid artery; F17.210 Nicotine dependence, cigarettes, uncomplicated; F32.A Depression, unspecified; F41.9 Anxiety disorder, unspecified; G62.9 Polyneuropathy, unspecified; I10 Essential (primary) hypertension; I25.2 Old myocardial infarction; Z79.02 Long term (current) use of antithrombotics/antiplatelets; Z79.82 Long term (current) use of aspirin; Z79.890 Hormone replacement therapy; Z79.899 Other long term (current) drug therapy; Z90.710 Acquired absence of both cervix and uterus; Z99.81 Dependence on supplemental oxygen; Z71.6 Tobacco abuse counseling
CPT/HCPCS: 36415; 36600; 70450; 71045; 80048; 80053; 81001; 82805; 83036; 83605; 83735; 84132; 84484; 85025; 85027; 85610; 85730; 93005; 94640; 94660; 94760; 96365; 96366; 96372; 96375; 99291

== ENCOUNTER 2024-03-15 11:07 | Emergency (ER) | payer MEDICARE ==
[2024-03-15 11:36] VITALS: TEMP 97.4
--- NOTE | 2024-03-15 12:29 | ED ---
General Adult HPI - General Chief complaint: Abdominal Pain Stated complaint: Sharp right sided pain Time Seen by Provider: 03/15/24 12:09 Source: patient, family, RN notes reviewed Mode of arrival: wheelchair Limitations: no limitations - History of Present Illness Initial comments: Patient is a 63-year-old female present emergency department with concerns for right lower abdominal discomfort. Onset of symptoms was a couple days ago. Discomfort is persistent however increases with walking and position changes. No nausea or vomiting. No constipation or diarrhea. No urinary symptoms. No fever. No history of similar symptoms previously. Discomfort does seem to radiate towards the hip. - Related Data Home Medications Medication Instructions Recorded Confirmed Escitalopram [Lexapro] 20 mg PO DAILY 11/28/17 03/15/24 Levothyroxine Sodium 200 mcg PO DAILY 08/20/20 03/15/24 Doxepin [SINEquan] 10 mg PO HS 02/25/22 03/15/24 cloNIDine HCL [Catapres] 0.2 mg PO HS 02/03/23 03/15/24 levETIRAcetam [Keppra] 1,000 mg PO BID 02/03/23 03/15/24 Gabapentin 800 mg PO BID 04/09/23 03/15/24 oxyCODONE HCL/ACETAMINOPHEN 2 tab PO Q6H PRN 11/24/23 03/15/24 [oxyCODONE HCL/ACETAMINOPHEN 5-325] Fluticasone/Umeclidin/Vilanter 1 puff INHALATION RT-DAILY 11/25/23 03/15/24 [Trelegy Ellipta 200-62.5-25] buprenorphine HCL [Subutex] 8 mg SL BID 12/02/23 03/15/24 predniSONE 10 mg PO DAILY 03/15/24 03/15/24 Previous Rx's Medication Instructions Recorded Atorvastatin [Lipitor] 40 mg PO HS #30 tab 06/21/22 Midodrine [ProAmatine] 5 mg PO AC-BID #30 tab 12/09/23 Allergies Allergy/AdvReac Type Severity Reaction Status Date / Time No Known Allergies Allergy Verified 03/15/24 11:32 Review of Systems ROS Statement: Those systems with pertinent positive or pertinent negative responses have been documented in the HPI. ROS Other: All systems not noted in ROS Statement are negative. Constitutional: Denies: fever Eyes: Denies: eye pain ENT: Denies: ear pain Respiratory: Denies: cough Cardiovascular: Denies: chest pain Endocrine: Denies: fatigue Gastrointestinal: Reports: as per HPI, abdominal pain Genitourinary: Denies: dysuria Musculoskeletal: Denies: back pain Skin: Denies: rash Neurological: Denies: headache Past Medical History Past Medical History: Asthma, Coronary Artery Disease (CAD), Chest Pain / Angina, COPD, GERD/Reflux, Hyperlipidemia, Hypertension, Myocardial Infarction (MA), Respiratory Disorder, Seizure Disorder, Thyroid Disorder, Vascular Disorder Additional Past Medical History / Comment(s): 2L oxygen use, 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 carotid blockage, PAD, vertigo at times. Last Myocardial Infarction Date:: 06/2022 History of Any Multi-Drug Resistant Organisms: None Reported Past Surgical History: Heart Catheterization, Heart Catheterization With Stent, Hysterectomy, Joint Replacement, Orthopedic Surgery Additional Past Surgical History / Comment(s): RT ROTATOR CUFF REPAIR, R total knee, CYSTS REMOVED FROM UNDER ARMS AND HANDS, arch studies, L caratid endartectomy, 4 cardiac stents, several peripheral stents, 07/18/18 left subclavian stent, arch studies. 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 Pt has never received blood. Date of Last Stent Placement:: Nov 2017 Past Psychological History: Anxiety, Depression Smoking Status: Current every day smoker Past Alcohol Use History: None Reported Past Drug Use History: None Reported, Marijuana - Past Family History Mother Family Medical History: Cancer Sister(s) Family Medical History: Cancer General Exam Limitations: no limitations General appearance: alert, in no apparent distress Head exam: Present: normocephalic Eye exam: Present: normal appearance Neck exam: Present: normal inspection Respiratory exam: Present: normal lung sounds bilaterally Cardiovascular Exam: Present: regular rate, normal rhythm Expanded Peripheral pulses: 2+: Posterior Tibialis (R), Posterior Tibialis (L) GI/Abdominal exam: Present: soft, tenderness (Moderate tenderness right lower quadrant), guarding (Right lower quadrant), normal bowel sounds. Absent: distended, rigid Extremities exam: Present: normal inspection. Absent: tenderness Back exam: Present: normal inspection. Absent: tenderness Neurological exam: Present: alert Psychiatric exam: Present: normal affect, normal mood Skin exam: Present: normal color Course Vital Signs 03/15/24 03/15/24 03/15/24 11:32 11:43 13:10 Temperature 97.4 F L Pulse Rate 82 77 84 Respiratory 18 18 18 Rate Blood Pressure 69/45 105/43 73/51 O2 Sat by Pulse 92 L 94 L 95 Oximetry 03/15/24 03/15/24 13:57 14:10 Temperature Pulse Rate 82 81 Respiratory 16 18 Rate Blood Pressure 83/55 88/58 O2 Sat by Pulse Oximetry Medical Decision Making - Medical Decision Making Was pt. sent in by a medical professional or institution ([facility], OIL TRANSPORT DRIVER, urgent care, hospital, or fci...) When possible be specific @ -No Did you speak to anyone other than the patient for history (EMS, parent, family, police, friend...)? What history was obtained from this source @ -No Did you review nursing and triage notes (agree or disagree)? Why? @ -I reviewed and agree with nursing and triage notes Were old charts reviewed (outside hosp., previous admission, EMS record, old EKG, old radiological studies, urgent care reports/EKG's, fci records)? Report findings @ -No old charts were reviewed Differential Diagnosis (chest pain, altered mental status, abdominal pain women, abdominal pain men, vaginal bleeding, weakness, fever, dyspnea, syncope, headache, dizziness, GI bleed, back pain, seizure, CVA, palpatations, mental health, musculoskeletal)? @ -Differential Abdominal Pain Women: Appendicitis, Cholecystitis, diverticulosis, ischemic bowel, pancreatitis, hepatitis, UTI, gastroenteritis, AAA, incarcerated hernia, bowel obstruction, constipation, inflammatory bowel, hepatitis, peptic ulcer disease, splenic infarction, perforated viscus, vulvitis, ovarian torsion, PID, kidney stone, placenta abruption, this is not meant to be an all-inclusive list EKG interpreted by me (3pts min.). @ -As above X-rays interpreted by me (1pt min.). @ -None done CT interpreted by me (1pt min.). @ -CT scan abdomen pelvis does show biliary duct dilation U/S interpreted by me (1pt. min.). @ -None done What testing was considered but not performed or refused? (CT, X-rays, U/S, labs)? Why? @ -None What meds were considered but not given or refused? Why? @ -None Did you discuss the management of the patient with other professionals (professionals i.e. , PA, OIL TRANSPORT DRIVER, lab, RT, psych nurse, director social, department specialist, teacher, low altitude air defense officer, pillowcase folder)? Give summary @ -Case was discussed with Dr. Mcwilliams who agrees patient can be discharged and will follow-up tomorrow with patient regarding scheduling further evaluation Was smoking cessation discussed for >3mins.? @ -No Was critical care preformed (if so, how long)? @ -No Were there social determinants of health that impacted care today? How? (Homelessness, low income, unemployed, alcoholism, drug addiction, transportation, low edu. Level, literacy, decrease access to med. care, half-way, rehab)? @ -No Was there de-escalation of care discussed even if they declined (Discuss DNR or withdrawal of care, Hospice)? DNR status @ -No What co-morbidities impacted this encounter? (DM, HTN, Smoking, COPD, CAD, Cancer, CVA, ARF, Chemo, Hep., AIDS, mental health diagnosis, sleep apnea, morbid obesity)? @ -None Was patient admitted / discharged? Hospital course, mention meds given and route, prescriptions, significant lab abnormalities, going to OR and other pertinent info. @ -Patient presents with right lower abdominal discomfort. On reevaluation abdomen is soft and nontender. Patient and family are updated on results and need for further evaluation. Gastroenterology is not available at this time. Dr. Mcwilliams is comfortable with discharge and patient and outpatient further evaluation. Patient and family updated. Undiagnosed new problem with uncertain prognosis? @ -No Drug Therapy requiring intensive monitoring for toxicity (Heparin, Nitro, Insulin, Cardizem)? @ -No Were any procedures done? @ -No Diagnosis/symptom? @ -Abdominal pain, biliary duct dilation Acute, or Chronic, or Acute on Chronic? @ -Acute, acute Uncomplicated (without systemic symptoms) or Complicated (systemic symptoms)? @ -Default Side effects of treatment? @ -No Exacerbation, Progression, or Severe Exacerbation? @ -No Poses a threat to life or bodily function? How? (Chest pain, USA, MA, pneumonia, PE, COPD, DKA, ARF, appy, cholecystitis, CVA, Diverticulitis, Homicidal, Suicidal, threat to staff... and all critical care pts) @ -Threat to gastrointestinal function - Lab Data Result diagrams: 03/15/24 12:44 03/15/24 12:44 Lab Results 03/15/24 03/15/24 03/15/24 Range/Units 12:44 12:44 12:44 WBC 7.7 (3.8-10.6) k/uL RBC 3.57 L (3.80-5.40) m/uL Hgb 11.5 (11.4-16.0) gm/dL Hct 36.7 (34.0-46.0) % MCV 102.7 H (80.0-100.0) fL MCH 32.3 (25.0-35.0) pg MCHC 31.4 (31.0-37.0) g/dL RDW 14.0 (11.5-15.5) % Plt Count 260 (150-450) k/uL MPV 7.0 Neutrophils % 74 % Lymphocytes % 13 % Monocytes % 6 % Eosinophils % 4 % Basophils % 0 % Neutrophils # 5.7 (1.3-7.7) k/uL Lymphocytes # 1.0 (1.0-4.8) k/uL Monocytes # 0.5 (0-1.0) k/uL Eosinophils # 0.3 (0-0.7) k/uL Basophils # 0.0 (0-0.2) k/uL Hypochromasia Slight Macrocytosis Slight PT 9.9 L (10.0-12.5) sec INR 0.9 (<1.2) APTT 20.7 L (22.0-30.0) sec Sodium 141 (137-145) mmol/L Potassium 4.2 (3.5-5.1) mmol/L Chloride 111 H (98-107) mmol/L Carbon Dioxide 22 (22-30) mmol/L Anion Gap 8 mmol/L BUN 18 H (7-17) mg/dL Creatinine 0.83 (0.52-1.04) mg/dL Est GFR (CKD-EPI)AfAm 87 (>60 ml/min/1.73 sqM) Est GFR (CKD-EPI)NonAf 75 (>60 ml/min/1.73 sqM) Glucose 100 H (74-99) mg/dL Calcium 9.2 (8.4-10.2) mg/dL Total Bilirubin 0.2 (0.2-1.3) mg/dL AST 22 (14-36) U/L ALT 15 (4-34) U/L Alkaline Phosphatase 102 (38-126) U/L Total Protein 6.4 (6.3-8.2) g/dL Albumin 4.0 (3.5-5.0) g/dL Amylase 64 (30-110) U/L Lipase 84 (23-300) U/L Urine Color Urine Appearance (Clear) Urine pH (5.0-8.0) Ur Specific Bohannon (1.001-1.035) Urine Protein (Negative) Urine Glucose (UA) (Negative) Urine Ketones (Negative) Urine Blood (Negative) Urine Nitrite (Negative) Urine Bilirubin (Negative) Urine Urobilinogen (<2.0) mg/dL Ur Leukocyte Esterase (Negative) 03/15/24 Range/Units 14:10 WBC (3.8-10.6) k/uL RBC (3.80-5.40) m/uL Hgb (11.4-16.0) gm/dL Hct (34.0-46.0) % MCV (80.0-100.0) fL MCH (25.0-35.0) pg MCHC (31.0-37.0) g/dL RDW (11.5-15.5) % Plt Count (150-450) k/uL MPV Neutrophils % % Lymphocytes % % Monocytes % % Eosinophils % % Basophils % % Neutrophils # (1.3-7.7) k/uL Lymphocytes # (1.0-4.8) k/uL Monocytes # (0-1.0) k/uL Eosinophils # (0-0.7) k/uL Basophils # (0-0.2) k/uL Hypochromasia Macrocytosis PT (10.0-12.5) sec INR (<1.2) APTT (22.0-30.0) sec Sodium (137-145) mmol/L Potassium (3.5-5.1) mmol/L Chloride (98-107) mmol/L Carbon Dioxide (22-30) mmol/L Anion Gap mmol/L BUN (7-17) mg/dL Creatinine (0.52-1.04) mg/dL Est GFR (CKD-EPI)AfAm (>60 ml/min/1.73 sqM) Est GFR (CKD-EPI)NonAf (>60 ml/min/1.73 sqM) Glucose (74-99) mg/dL Calcium (8.4-10.2) mg/dL Total Bilirubin (0.2-1.3) mg/dL AST (14-36) U/L ALT (4-34) U/L Alkaline Phosphatase (38-126) U/L Total Protein (6.3-8.2) g/dL Albumin (3.5-5.0) g/dL Amylase (30-110) U/L Lipase (23-300) U/L Urine Color Colorless Urine Appearance Clear (Clear) Urine pH 6.5 (5.0-8.0) Ur Specific [place] 1.032 (1.001-1.035) Urine Protein Trace H (Negative) Urine Glucose (UA) Negative (Negative) Urine Ketones Negative (Negative) Urine Blood Negative (Negative) Urine Nitrite Negative (Negative) Urine Bilirubin Negative (Negative) Urine Urobilinogen <2.0 (<2.0) mg/dL Ur Leukocyte Esterase Negative (Negative) Disposition Clinical Impression: Abdominal pain, Dilated bile duct Disposition: HOME SELF-CARE Condition: Stable Instructions (If sedation given, give patient instructions): Abdominal Pain (ED) Additional Instructions: Please call Dr. Mcwilliams's office tomorrow for further scheduling and further evaluation. Return for fever, yellow discoloration of the skin, increased pain, worsening symptoms or any other concerns. You would need further evaluation, possible MRI, MRCP or ERCP. Is patient prescribed a controlled substance at d/c from ED?: No Referrals: Jose F Mcwilliams MD [Primary Care Provider] - 1-2 days Time of Disposition: 14:31
[2024-03-15 13:01] LABS: Basophils % (A) 0 %; Eosinophils # (A) 0.3 k/uL (0-0.7); Eosinophils % (A) 4 %; HCT 36.7 % (34.0-46.0); HGB 11.5 gm/dL (11.4-16.0); Hypochromasia Slight; Lymphocytes % (A) 13 %; MCH 32.3 pg (25.0-35.0); MCHC 31.4 g/dL (31.0-37.0); MCV 102.7 fL (80.0-100.0); Macrocytosis Slight; Monocytes # (A) 0.5 k/uL (0-1.0); Monocytes % (A) 6 %; Neutrophils # (A) 5.7 k/uL (1.3-7.7); Neutrophils % (A) 74 %; Platelet Count 260 k/uL (150-450); RBC 3.57 m/uL (3.80-5.40); WBC 7.7 k/uL (3.8-10.6)
[2024-03-15 13:09] LABS: ALT 15 U/L (4-34); AST 22 U/L (14-36); African American GFR (CKD) 87 (>60 ml/min/1.73 sqM); Alkaline Phosphatase 102 U/L (38-126); Amylase 64 U/L (30-110); Anion Gap 8 mmol/L; Blood Urea Nitrogen 18 mg/dL (7-17); Calcium 9.2 mg/dL (8.4-10.2); Carbon Dioxide 22 mmol/L (22-30); Chloride 111 mmol/L (98-107); Glucose 100 mg/dL (74-99); Lipase 84 U/L (23-300); Non-African American GFR(CKD) 75 (>60 ml/min/1.73 sqM); Potassium 4.2 mmol/L (3.5-5.1); Sodium 141 mmol/L (137-145); Total Bilirubin 0.2 mg/dL (0.2-1.3); Total Protein 6.4 g/dL (6.3-8.2)
[2024-03-15] MEDS: SODIUM CHLORIDE 0.9% 1,000 ML IV STA (13:10)
[2024-03-15 13:11] LABS: INR 0.9 (<1.2); Prothrombin Time 9.9 sec (10.0-12.5)
[2024-03-15 13:18] LABS: Partial Thromboplastin Time 20.7 sec (22.0-30.0)
--- NOTE | 2024-03-15 13:56 | CT ---
EXAMINATION TYPE: CT abdomen pelvis w con CT DLP: 1236.5 mGycm, Automated exposure control for dose reduction was used. DATE OF EXAM: 03/15/2024 1:47 PM COMPARISON: CT abdomen pelvis 12/16/2019 [place] CLINICAL INDICATION:Female, 63 years old with history of abdominal pain; ABDOMINAL PAIN TECHNIQUE: Standard CT of the abdomen and pelvis following the administration of 100 cc of Isovue 3 00 IV contrast material. Coronal and sagittal reformats were performed. FINDINGS: LOWER CHEST: Posterior dependent subsegmental atelectasis is noted. Centrilobular emphysematous thompson es. Coronary artery calcifications. ABDOMEN LIVER: Unremarkable GALLBLADDER AND BILE DUCTS: Gallbladder appears unremarkable. Intra and extra hepatic biliary ductal dilatation with the common bile duct measuring up to 1.5 cm at the pancreatic atrophy with focal tape ring identified in this region. PANCREAS: Unremarkable. SPLEEN: Unremarkable. ADRENAL GLANDS: Unremarkable. KIDNEYS AND URETERS: No evidence of hydronephrosis or renal calculus. The kidneys enhance symmetrical ly. Contrast is demonstrated within both collecting systems on the delayed phase. PELVIS BLADDER: Incompletely distended but grossly unremarkable. REPRODUCTIVE: The uterus is surgically absent. ABDOMEN & PELVIS STOMACH AND BOWEL: Stomach and duodenum are unremarkable. No focal bowel wall thickening or surroundi ng inflammatory changes. The appendix is within normal limits. No evidence of bowel obstruction. PERITONEUM: No evidence of pneumoperitoneum or free fluid. VASCULATURE: Moderate atherosclerotic calcifications are present throughout the abdominal aorta and i ts branches. No evidence of aortic aneurysm. MUSCULOSKELETAL: No acute osseous abnormalities LYMPH NODES: No evidence for lymphadenopathy. SOFT TISSUE/ABDOMINAL WALL: Unremarkable IMPRESSION: 1. Intra and extra hepatic biliary duct dilatation with focal tapering at the pancreatic head. Corre lation with biliary labs is recommended. Consider further evaluation with MRCP as clinically indicate d. 2. COPD changes. [facility], , 03/15/2024 1:53 PM
[2024-03-15 14:22] LABS: Appearance,Urine Clear (Clear); Bilirubin,Urine Negative (Negative); Blood,Urine Negative (Negative); Color,Urine Colorless; Glucose,Urine (UA) Negative (Negative); Ketones,Urine Negative (Negative); Leukocyte Esterase,Urine Negative (Negative); Nitrite,Urine Negative (Negative); PH, Urine 6.5 (5.0-8.0); Protein,Urine Trace (Negative); Specific Gravity,Urine 1.032 (1.001-1.035); Urobilinogen,Urine <2.0 mg/dL (<2.0)
[2024-03-15 15:37] VITALS: BP 136/65; PULSE 65; RESP 16
== END 2024-03-15 15:37 | disposition home or self-care (01) ==
LOC: EC 11:07
DX: K31.89 Other diseases of stomach and duodenum (principal); F17.200 Nicotine dependence, unspecified, uncomplicated; Z95.5 Presence of coronary angioplasty implant and graft
CPT/HCPCS: 36415; 80053; 82150; 83690; 85025; 85610; 85730; 81003; 74177; 99284; 96360; 96361; Q9967

== ENCOUNTER 2024-04-01 15:58 | Inpatient (IN) | payer MEDICARE ==
[2024-04-01 16:31] LABS: Glucose,Whole Blood 165 mg/dL (70-110)
--- NOTE | 2024-04-01 16:49 | ED ---
General Adult HPI - General Chief complaint: Abdominal Pain Stated complaint: R side pain Time Seen by Provider: 04/01/24 16:34 Source: patient Mode of arrival: wheelchair Limitations: no limitations - History of Present Illness Initial comments: Patient is a 63-year-old female past medical history of COPD on as needed oxygen, chronic hypotension on midodrine, CAD presenting today for right lower quadrant abdominal pain. Patient states it has been ongoing since February when she was here and had a CT done that showed she had a dilated biliary duct. She is supposed to have an MRCP scheduled for April 11 but today her pain became so intense that she could not manage it with home Percocet so presented to the ER. Of note on arrival to the emergency department in triage patient was noted to have a left facial droop. Patient states she has had a left facial droop on and off since November. Today she think she may have noticed it at noon. She denied new numbness, weakness, changes in vision or slurred speech however on exam did note decree sensation in the left hand, unsure how long it is felt like that for. Patient denies any severe headache, dizziness or lightheadedness. She denies any recent fevers or chills, denies nausea, vomiting, chest pain, shortness of breath, dysuria, urinary frequency, hematuria, hematochezia, melena, diarrhea, constipation. Prior abdominal surgeries include prior hysterectomy. She is not on thinners but does take a baby aspirin daily. - Related Data Home Medications Medication Instructions Recorded Confirmed Escitalopram [Lexapro] 20 mg PO DAILY 11/28/17 04/01/24 Levothyroxine Sodium 200 mcg PO DAILY 08/20/20 04/01/24 Doxepin [SINEquan] 10 mg PO HS 02/25/22 04/01/24 cloNIDine HCL [Catapres] 0.2 mg PO HS 02/03/23 04/01/24 levETIRAcetam [Keppra] 1,000 mg PO BID 02/03/23 04/01/24 Gabapentin 800 mg PO BID 04/09/23 04/01/24 oxyCODONE HCL/ACETAMINOPHEN 2 tab PO Q6H 11/24/23 04/01/24 [oxyCODONE HCL/ACETAMINOPHEN 5-325] Fluticasone/Umeclidin/Vilanter 1 puff INHALATION RT-DAILY 11/25/23 04/01/24 [Trelegy Ellipta 200-62.5-25] Albuterol Inhaler [Ventolin Hfa 2 puff INHALATION RT-Q4H PRN 04/01/24 04/01/24 Inhaler] Previous Rx's Medication Instructions Recorded Midodrine [ProAmatine] 5 mg PO AC-BID #30 tab 12/09/23 Allergies Allergy/AdvReac Type Severity Reaction Status Date / Time No Known Allergies Allergy Verified 04/01/24 17:20 Review of Systems ROS Statement: Those systems with pertinent positive or pertinent negative responses have been documented in the HPI. ROS Other: All systems not noted in ROS Statement are negative. Past Medical History Past Medical History: Asthma, Coronary Artery Disease (CAD), Chest Pain / Angina, COPD, GERD/Reflux, Hyperlipidemia, Hypertension, Myocardial Infarction (OK), Respiratory Disorder, Seizure Disorder, Thyroid Disorder, Vascular Disorder Additional Past Medical History / Comment(s): 2L oxygen use, 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 carotid blockage, PAD, vertigo at times. Last Myocardial Infarction Date:: 06/2022 History of Any Multi-Drug Resistant Organisms: None Reported Past Surgical History: Heart Catheterization, Heart Catheterization With Stent, Hysterectomy, Joint Replacement, Orthopedic Surgery Additional Past Surgical History / Comment(s): RT ROTATOR CUFF REPAIR, R total knee, CYSTS REMOVED FROM UNDER ARMS AND HANDS, arch studies, L caratid enda rtectomy, 4 cardiac stents, several peripheral stents, 07/18/18 left subclavian stent, arch studies. Past Anesthesia/Blood Transfusion Reactions: No Reported Reaction Additional Past Anesthesia/Blood Transfusion Reaction / Comment(s): Pt states that she is unable to go under general anesthesia per her cut order hand due to low functioning lungs. Pt has never received blood. Date of Last Stent Placement:: Nov 2017 Past Psychological History: Anxiety, Depression Smoking Status: Current every day smoker, Light tobacco smoker Past Alcohol Use History: None Reported Past Drug Use History: None Reported, Marijuana - Past Family History Mother Family Medical History: Cancer Sister(s) Family Medical History: Cancer General Exam - General Exam Comments Initial Comments: PE: CONSTITUTIONAL: No apparent distress, chronically ill appearing SKIN: Warm, dry, no jaundice, hives or petechiae EYES: Pupils are equally round, extraocular movements intact without nystagmus, clear conjunctiva, non-icteric sclera HENT: Normocephalic, atraumatic, moist mucus membranes, oropharynx clear without exudates NECK: , Full range of motion, normal appearance PULMONARY: Scant wheeze in the lower lung pierson, otherwise no rhonchi, or rales, normal excursion, no accessory muscle use and no stridor CARDIOVASCULAR: Regular rate, rhythm, normal S1 and S2. No appreciated murmurs, rubs or gallops. Strong radial pulses with intact distal perfusion. No lower extremity edema GASTROINTESTINAL: Soft, active bowel sounds throughout, positive McBurney's point, tenderness to palpation of the right lower quadrant, positive psoas sign non-distended, no palpable masses, negative yarbrough's sign No hepatosplenomegaly MUSCULOSKELETAL: Extremities have no gross deformity, no edema, redness, or swelling. No calf swelling NEUROLOGIC:_a/o x 3, GCS 15, normal mentation and speech. Moves all extremities x 4 without motor or sensory deficit; slight flattening of left nasolabial fold, not noticeable on smiling, decreased sensation to light touch in the left upper extremity, unable examine left lower extremity due to tib-fib fracture, cranial nerves: II (visual pierson without defects), III, IV and (extraocular movements are intact, pupils are equal with normal reaction to light), V (intact facial sensation and jaw opening), VII (slight flattenting of left nasolabial fold), IX and X (normal palate movement, midline uvula, normal voice), XI (symmetrical shoulder shrug and lateral head rotation against resistance), XII (midline tongue protrusion). Motor strength is 5/5 in all extremities. No abnormal movements. Normal muscle tone. PSYCHIATRIC:_normal mood and affect, thought process is clear and linear Limitations: no limitations Course Vital Signs 04/01/24 04/01/24 04/01/24 16:05 16:50 17:05 Temperature 98.2 F 97.9 F 98.0 F Pulse Rate 105 H 96 96 Pulse Rate [ Right Supine] Respiratory 20 16 14 Rate Blood Pressure 67/42 75/39 86/56 Blood Pressure [Right Arm Supine] O2 Sat by Pulse 91 L 93 L 98 Oximetry Fraction of Inspired Oxygen (FIO2) 01/12/25 01/12/25 01/12/25 17:24 17:35 17:41 Temperature 97.9 F 98.0 F Pulse Rate 97 92 Pulse Rate [ Right Supine] Respiratory 16 16 Rate Blood Pressure 79/40 92/63 Blood Pressure [Right Arm Supine] O2 Sat by Pulse 88 L 94 L 93 L Oximetry Fraction of Inspired Oxygen (FIO2) 04/01/24 04/01/24 04/01/24 18:20 18:23 18:32 Temperature 97.9 F Pulse Rate 93 93 95 Pulse Rate [ Right Supine] Respiratory 14 Rate Blood Pressure 92/63 Blood Pressure [Right Arm Supine] O2 Sat by Pulse 94 L Oximetry Fraction of Inspired Oxygen (FIO2) 04/01/24 04/01/24 04/01/24 19:12 20:02 21:29 Temperature Pulse Rate 94 101 H 98 Pulse Rate [ Right Supine] Respiratory 16 18 19 Rate Blood Pressure 103/51 89/51 81/44 Blood Pressure [Right Arm Supine] O2 Sat by Pulse 93 L 93 L 93 L Oximetry Fraction of Inspired Oxygen (FIO2) 04/01/24 04/02/24 04/02/24 23:00 00:45 01:04 Temperature Pulse Rate 92 87 90 Pulse Rate [ Right Supine] Respiratory 18 18 18 Rate Blood Pressure 76/38 64/35 75/50 Blood Pressure [Right Arm Supine] O2 Sat by Pulse 95 93 L Oximetry Fraction of Inspired Oxygen (FIO2) 04/02/24 04/02/24 04/02/24 05:19 06:00 08:00 Temperature 98.0 F Pulse Rate 78 77 Pulse Rate [ 77 Right Supine] Respiratory 19 18 22 Rate Blood Pressure 53/34 53/34 Blood Pressure 93/58 [Right Arm Supine] O2 Sat by Pulse 92 L 93 L Oximetry Fraction of Inspired Oxygen (FIO2) 04/02/24 04/02/24 04/02/24 08:21 08:23 08:31 Temperature Pulse Rate 85 77 Pulse Rate [ Right Supine] Respiratory Rate Blood Pressure Blood Pressure [Right Arm Supine] O2 Sat by Pulse 94 L Oximetry Fraction of Inspired Oxygen (FIO2) 04/02/24 04/02/24 04/02/24 09:27 09:41 11:34 Temperature Pulse Rate 76 Pulse Rate [ Right Supine] Respiratory Rate Blood Pressure Blood Pressure [Right Arm Supine] O2 Sat by Pulse Oximetry Fraction of 30 30 Inspired Oxygen (FIO2) 04/02/24 04/02/24 04/02/24 11:36 11:43 12:00 Temperature 98.0 F Pulse Rate 85 Pulse Rate [ 70 Right Supine] Respiratory 18 Rate Blood Pressure Blood Pressure 91/70 [Right Arm Supine] O2 Sat by Pulse 94 L Oximetry Fraction of 30 Inspired Oxygen (FIO2) 04/02/24 04/02/24 04/02/24 14:00 15:30 15:33 Temperature Pulse Rate 80 Pulse Rate [ 70 Right Supine] Respiratory 22 Rate Blood Pressure Blood Pressure [Right Arm Supine] O2 Sat by Pulse 94 L Oximetry Fraction of Inspired Oxygen (FIO2) 04/02/24 04/02/24 15:42 16:00 Temperature 98.2 F Pulse Rate 84 Pulse Rate [ 71 Right Supine] Respiratory 20 Rate Blood Pressure Blood Pressure 94/64 [Right Arm Supine] O2 Sat by Pulse 95 Oximetry Fraction of Inspired Oxygen (FIO2) EKG Findings - EKG Comments: EKG Findings:: Sinus tachycardia, rate 100 beats minute, LA interval 158 ms, QRS duration 93 ms, QT/QTc 335/392 ms, borderline eft axis deviation, no ST elevations or depressions Medical Decision Making - Medical Decision Making Was pt. sent in by a medical professional or institution (, PA, ENTRY LEVEL MANAGER, urgent care, hospital, or skilled nursing...) When possible be specific @ -No Did you speak to anyone other than the patient for history (EMS, parent, family, police, friend...)? What history was obtained from this source @ -No Did you review nursing and triage notes (agree or disagree)? Why? @ -I reviewed nursing and triage notes Were old charts reviewed (outside hosp., previous admission, EMS record, old EKG, old radiological studies, urgent care reports/EKG's, skilled nursing records)? Report findings @ -Medical records reviewed reviewed CT scan performed in February of this year did show biliary duct dilation recommended MRCP Differential Diagnosis (chest pain, altered mental status, abdominal pain women, abdominal pain men, vaginal bleeding, weakness, fever, dyspnea, syncope, headache, dizziness, GI bleed, back pain, seizure, CVA, palpatations, mental health, musculoskeletal)? @ -Not applicable differential Abdominal Pain Women: Appendicitis, Cholecystitis, diverticulosis, ischemic bowel, pancreatitis, hepatitis, UTI, gastroenteritis, AAA, incarcerated hernia, bowel obstruction, constipation, inflammatory bowel, hepatitis, peptic ulcer disease, splenic infarction, perforated viscus, vulvitis, ovarian torsion, PID, kidney stone, placenta abruption, this is not meant to be an all-inclusive list Differential CVA Ischemic stroke, hemorrhagic stroke, brain tumor, atypical migraine, Wernicke's encephalopathy, seizure, multiple sclerosis, meningitis, encephalitis, hypoglycemia, Guillain-Schuster, electrolytes disturbance, myasthenia gravis.... This is not meant to be an all-inclusive list EKG interpreted by me (3pts min.). @ -As above X-rays interpreted by me (1pt min.). @ On my review of CXR, no cardioegaly, gross consolidations or pleural effusions CT interpreted by me (1pt min.). II do not see evidence of hemorrhage on CT brain, I do not see evidence of hemorrhage or LVO on CTA U/S interpreted by me (1pt. min.). @ -None done What testing was considered but not performed or refused? (CT, X-rays, U/S, labs)? Why? @ -None What meds were considered but not given or refused? Why? @ -None Did you discuss the management of the patient with other professionals (professionals i.e. , PA, ENTRY LEVEL MANAGER, lab, RT, psych nurse, social work specialist, electric deicer inspector, teacher, rating officer, case preparer and liner)? Give summary Yes care was discussed w/ Dr. Cochran, neurointerventionalist, see below; as well as Dr. Shaffer, general surgery Was smoking cessation discussed for >3mins.? @ -No Was critical care preformed (if so, how long)? Yes 35 minutes Were there social determinants of health that impacted care today? How? (Homelessness, low income, unemployed, alcoholism, drug addiction, transportation, low edu. Level, literacy, decrease access to med. care, mcc, re hab)? @ -No Was there de-escalation of care discussed even if they declined (Discuss DNR or withdrawal of care, Hospice)? @ -No What co-morbidities impacted this encounter? (DM, HTN, Smoking, COPD, CAD, Cancer, CVA, ARF, Chemo, Hep., AIDS, mental health diagnosis, sleep apnea, morbid obesity)? @COPD, chronic pain, CAD Was patient admitted / discharged? Hospital course, mention meds given and rout e, prescriptions, significant lab abnormalities, going to OR and other pertinent info. @ Admission- patient seen and assessed on arrival in sr. logistics analyst concern for facial droop. NIH of 2. Last known well approximately 4 and half hours prior to arrival. Due to neurodeficits in last 24 hours stroke alert was called however patient is notably hypotensvie, has BP 67 systolic, states that she is chronically hypotensive takes midodrine, 5 mg, is due for next dose at 6:00. Mild tachycardia with rate 101 pulse ox 90%. Blood glucose approximately 160. Suspect neuro deficit could be related to decreased perfusion 2/2 hypotension, tht pt states is not abnormal for her. Case discussed with Dr. Tucker neurointerventionalist, also suspects neurodeficit may be driven by hypoperfusion from hypotension, agrees with plan to withhold tenecteplase. Ordered pt's 5 mg midodrine in addition to 500 ml saline bolus. Fentanyl ordered for abdominal pain in order to avoid dropping BP further with meds like morphine or dilaudid. Pt reassessed and further exam completed when she was brought back to room after imaging. Exam otherwise signifiant for RLQ TTP, positive mcburny's point. CT abdomen pelvis done in addition to head CTs, no contrast in order to spare large contrast load to pt. Labs reviewed. Grossly within normal limits. 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 Tucker, , states patient is appropriate to follow-up o utpatient regarding this particular finding. CT abdomen/pelvis significant for "patulous appendix without appendicitis". Pt has no luekocytosis on labs. Discussed with Dr. Shaffer, who kindly reviewed pts case and imaging. States appendix appeared similar on visit in February, but he is willing to be on consult if pt admitted. On reassessment pt's BP has improved to 103 systolic. Facial droop appears resolved. Plan for admit for TIA. Pt agreeable with POC. Case discussed with MÓNICA Soni, who kindly accepts pt for admission. Undiagnosed new problem with uncertain prognosis? @ -No Drug Therapy requiring intensive monitoring for toxicity (Heparin, Nitro, Insulin, Cardizem)? @ -No Were any procedures done? @ -No Diagnosis/symptom? @ TIA, abdominal pain Acute, or Chronic, or Acute on Chronic? @ -acute Uncomplicated (without systemic symptoms) or Complicated (systemic symptoms)? @ complicated Side effects of treatment? @ -No Exacerbation, Progression, or Severe Exacerbation? @ -No Poses a threat to life or bodily function? How? (Chest pain, USA, OK, pneumonia, PE, COPD, DKA, ARF, appy, cholecystitis, CVA, Diverticulitis, Homicidal, Suicidal, threat to staff... and all critical care pts) @ Yes - Lab Data Result diagrams: 04/03/24 07:16 04/03/24 07:16 Lab Results 04/01/24 04/01/24 04/01/24 Range/Units 16:30 16:55 16:55 WBC 8.5 (3.8-10.6) k/uL RBC 3.74 L (3.80-5.40) m/uL Hgb 11.9 (11.4-16.0) gm/dL Hct 37.0 (34.0-46.0) % MCV 99.0 (80.0-100.0) fL MCH 31.9 (25.0-35.0) pg MCHC 32.2 (31.0-37.0) g/dL RDW 14.3 (11.5-15.5) % Plt Count 276 (150-450) k/uL MPV 6.6 Neutrophils % 66 % Lymphocytes % 21 % Monocytes % 7 % Eosinophils % 2 % Basophils % 1 % Neutrophils # 5.6 (1.3-7.7) k/uL Lymphocytes # 1.8 (1.0-4.8) k/uL Monocytes # 0.6 (0-1.0) k/uL Eosinophils # 0.2 (0-0.7) k/uL Basophils # 0.1 (0-0.2) k/uL Hypochromasia Moderate PT 10.5 (10.0-12.5) sec INR 0.9 (<1.2) APTT 23.5 (22.0-30.0) sec Sodium (137-145) mmol/L Potassium (3.5-5.1) mmol/L Chloride (98-107) mmol/L Carbon Dioxide (22-30) mmol/L Anion Gap mmol/L BUN (7-17) mg/dL Creatinine (0.52-1.04) mg/dL Est GFR (CKD-EPI)AfAm (>60 ml/min/1.73 sqM) Est GFR (CKD-EPI)NonAf (>60 ml/min/1.73 sqM) Glucose (74-99) mg/dL POC Glucose (mg/dL) 165 H (70-110) mg/dL POC Glu Zoo Keeper ID Zaynab Roth Calcium (8.4-10.2) mg/dL Total Bilirubin (0.2-1.3) mg/dL AST (14-36) U/L ALT (4-34) U/L Alkaline Phosphatase (38-126) U/L Creatine Kinase (30-135) U/L Troponin I (0.000-0.034) ng/mL Total Protein (6.3-8.2) g/dL Albumin (3.5-5.0) g/dL Triglycerides (0.00-149.00) mg/dL Cholesterol (0.00-200.00) mg/dL LDL Cholesterol, Calc (0.0-131.0) mg/dL VLDL Cholesterol, Calc (5.00-40.00) mg/dL HDL Cholesterol (40.00-60.00) mg/dL Cholesterol/HDL Ratio Ratio Amylase (30-110) U/L Lipase (23-300) U/L Blood Type Blood Type Recheck Bld Type Recheck Status Antibody Screen Spec Expiration Date 04/01/24 04/01/24 04/01/24 Range/Units 16:55 16:55 16:55 WBC (3.8-10.6) k/uL RBC (3.80-5.40) m/uL Hgb (11.4-16.0) gm/dL Hct (34.0-46.0) % MCV (80.0-100.0) fL MCH (25.0-35.0) pg MCHC (31.0-37.0) g/dL RDW (11.5-15.5) % Plt Count (150-450) k/uL MPV Neutrophils % % Lymphocytes % % Monocytes % % Eosinophils % % Basophils % % Neutrophils # (1.3-7.7) k/uL Lymphocytes # (1.0-4.8) k/uL Monocytes # (0-1.0) k/uL Eosinophils # (0-0.7) k/uL Basophils # (0-0.2) k/uL Hypochromasia PT (10.0-12.5) sec INR (<1.2) APTT (22.0-30.0) sec Sodium 138 (137-145) mmol/L Potassium 4.3 (3.5-5.1) mmol/L Chloride 105 (98-107) mmol/L Carbon Dioxide 22 (22-30) mmol/L Anion Gap 11 mmol/L BUN 23 H (7-17) mg/dL Creatinine 1.11 H (0.52-1.04) mg/dL Est GFR (CKD-EPI)AfAm 61 (>60 ml/min/1.73 sqM) Est GFR (CKD-EPI)NonAf 53 (>60 ml/min/1.73 sqM) Glucose 124 H (74-99) mg/dL POC Glucose (mg/dL) (70-110) mg/dL POC Glu Zoo Keeper ID Calcium 9.2 (8.4-10.2) mg/dL Total Bilirubin 0.1 L (0.2-1.3) mg/dL AST 16 (14-36) U/L ALT 9 (4-34) U/L Alkaline Phosphatase 106 (38-126) U/L Creatine Kinase 75 (30-135) U/L Troponin I <0.012 (0.000-0.034) ng/mL Total Protein 6.5 (6.3-8.2) g/dL Albumin 4.1 (3.5-5.0) g/dL Triglycerides (0.00-149.00) mg/dL Cholesterol (0.00-200.00) mg/dL LDL Cholesterol, Calc (0.0-131.0) mg/dL VLDL Cholesterol, Calc (5.00-40.00) mg/dL HDL Cholesterol (40.00-60.00) mg/dL Cholesterol/HDL Ratio Ratio Amylase 70 (30-110) U/L Lipase 103 (23-300) U/L Blood Type O Positive Blood Type Recheck O Pos Bld Type Recheck Status No Antibody Screen NEGATIVE Spec Expiration Date 04/04/2024235404/01/24 04/01/24 04/01/24 Range/Units 16:55 17:12 19:56 WBC (3.8-10.6) k/uL RBC (3.80-5.40) m/uL Hgb (11.4-16.0) gm/dL Hct (34.0-46.0) % MCV (80.0-100.0) fL MCH (25.0-35.0) pg MCHC (31.0-37.0) g/dL RDW (11.5-15.5) % Plt Count (150-450) k/uL MPV Neutrophils % % Lymphocytes % % Monocytes % % Eosinophils % % Basophils % % Neutrophils # (1.3-7.7) k/uL Lymphocytes # (1.0-4.8) k/uL Monocytes # (0-1.0) k/uL Eosinophils # (0-0.7) k/uL Basophils # (0-0.2) k/uL Hypochromasia PT (10.0-12.5) sec INR (<1.2) APTT (22.0-30.0) sec Sodium (137-145) mmol/L Potassium (3.5-5.1) mmol/L Chloride (98-107) mmol/L Carbon Dioxide (22-30) mmol/L Anion Gap mmol/L BUN (7-17) mg/dL Creatinine (0.52-1.04) mg/dL Est GFR (CKD-EPI)AfAm (>60 ml/min/1.73 sqM) Est GFR (CKD-EPI)NonAf (>60 ml/min/1.73 sqM) Glucose (74-99) mg/dL POC Glucose (mg/dL) 124 H (70-110) mg/dL POC Glu Zoo Keeper ID Segundo Jackson Calcium (8.4-10.2) mg/dL Total Bilirubin (0.2-1.3) mg/dL AST (14-36) U/L ALT (4-34) U/L Alkaline Phosphatase (38-126) U/L Creatine Kinase (30-135) U/L Troponin I <0.012 (0.000-0.034) ng/mL Total Protein (6.3-8.2) g/dL Albumin (3.5-5.0) g/dL Triglycerides 156.00 H (0.00-149.00) mg/dL Cholesterol 182.00 (0.00-200.00) mg/dL LDL Cholesterol, Calc 108.1 (0.0-131.0) mg/dL VLDL Cholesterol, Calc 31.20 (5.00-40.00) mg/dL HDL Cholesterol 42.70 (40.00-60.00) mg/dL Cholesterol/HDL Ratio 4.26 Ratio Amylase (30-110) U/L Lipase (23-300) U/L Blood Type Blood Type Recheck Bld Type Recheck Status Antibody Screen Spec Expiration Date Disposition Clinical Impression: Abdominal pain, TIA (transient ischemic attack) Disposition: ADMITTED IP TO THIS HOSP Condition: Stable
[2024-04-01] MEDS: SODIUM CHLORIDE 0.9% 500 ML 500 ML IV STA (16:51)
[2024-04-01] MEDS: MIDODRINE 5 MG TAB PO STA (16:52)
[2024-04-01] MEDS: fentaNYL (PF) 50 MCG/ML 2 ML AMP IVP STA (16:53)
[2024-04-01] MEDS: ONDANSETRON 4 MG/2 ML VIAL IVP STA (16:53)
[2024-04-01 17:07] LABS: Basophils # (A) 0.1 k/uL (0-0.2); Basophils % (A) 1 %; Eosinophils # (A) 0.2 k/uL (0-0.7); Eosinophils % (A) 2 %; HGB 11.9 gm/dL (11.4-16.0); Hypochromasia Moderate; Lymphocytes # (A) 1.8 k/uL (1.0-4.8); Lymphocytes % (A) 21 %; MCH 31.9 pg (25.0-35.0); MCHC 32.2 g/dL (31.0-37.0); Mean Platelet Volume 6.6; Monocytes # (A) 0.6 k/uL (0-1.0); Monocytes % (A) 7 %; Neutrophils # (A) 5.6 k/uL (1.3-7.7); Neutrophils % (A) 66 %; Platelet Count 276 k/uL (150-450); RBC 3.74 m/uL (3.80-5.40); RDW 14.3 % (11.5-15.5); WBC 8.5 k/uL (3.8-10.6)
[2024-04-01 17:13] LABS: Glucose,Whole Blood 124 mg/dL (70-110)
[2024-04-01 17:16] LABS: ALT 9 U/L (4-34); AST 16 U/L (14-36); African American GFR (CKD) 61 (>60 ml/min/1.73 sqM); Albumin 4.1 g/dL (3.5-5.0); Alkaline Phosphatase 106 U/L (38-126); Amylase 70 U/L (30-110); Anion Gap 11 mmol/L; Blood Urea Nitrogen 23 mg/dL (7-17); Calcium 9.2 mg/dL (8.4-10.2); Carbon Dioxide 22 mmol/L (22-30); Chloride 105 mmol/L (98-107); Creatine Kinase 75 U/L (30-135); Glucose 124 mg/dL (74-99); INR 0.9 (<1.2); Lipase 103 U/L (23-300); Non-African American GFR(CKD) 53 (>60 ml/min/1.73 sqM); Partial Thromboplastin Time 23.5 sec (22.0-30.0); Potassium 4.3 mmol/L (3.5-5.1); Prothrombin Time 10.5 sec (10.0-12.5); Sodium 138 mmol/L (137-145); Total Bilirubin 0.1 mg/dL (0.2-1.3); Total Protein 6.5 g/dL (6.3-8.2)
--- NOTE | 2024-04-01 17:17 | CT ---
EXAMINATION TYPE: CODE STROKE: CT brain wo contr DATE OF EXAM: 04/01/2024 5:09 PM COMPARISON: 12/02/2023. CLINICAL INDICATION: Female, 63 years old with history of Neuro deficit, acute, stroke suspected, sha annette and weakness. code stroke. TECHNIQUE: Brain: Axial CT images of the brain were obtained with coronal and sagittal reformats created and rev iewed. Contrast used: None. Oral contrast used: None. CT DLP: 1217.6 mGycm, Automated exposure control for dose reduction was used. FINDINGS: Brain: Extra-axial spaces: No abnormal extra-axial fluid collections. Ventricular system: Within normal limits Cerebral parenchyma: Cerebral atrophy. No acute intraparenchymal hemorrhage or mass effect. The hilton -white junction is well differentiated. Scattered hypoattenuating areas are seen within the white mat ter. Cerebellum: Unremarkable. Mass effect: No evidence of midline shift. Intracranial vasculature: Atherosclerotic calcifications of the intracranial vessels. Soft tissues: Normal. Calvarium/osseous structures: No depressed skull fracture. Incomplete fusion of the posterior arch of C1. Paranasal sinuses and mastoid air cells: Mild scattered paranasal sinus disease. Visualized orbits: Orbital contents are intact. IMPRESSION: 1. No acute intracranial process. 2. Nonspecific white matter changes, likely secondary to chronic small vessel ischemic disease. [facility], , 04/01/2024 5:15 PM
[2024-04-01] MEDS ORDERED: fentaNYL (PF) 50 MCG/ML 2 ML AMP IVP PRN (17:44)
--- NOTE | 2024-04-01 17:45 | CT ---
EXAMINATION TYPE: CT abdomen pelvis wo con DATE OF EXAM: 04/01/2024 5:14 PM COMPARISON: 03/15/2024 CLINICAL INDICATION: Female, 63 years old with history of abdominal pain; severe R sided abdominal pa in TECHNIQUE: Axial CT abdomen pelvis wo con;Sagittal and coronal reformats were created on a separate workstation. Contrast used: mL of , (none if empty) Oral contrast used: without Oral Contrast (none if empty) CT DLP: 715.4 mGycm, Automated exposure control for dose reduction was used. FINDINGS: LOWER CHEST: Unremarkable ABDOMEN LIVER: Unremarkable GALLBLADDER AND BILE DUCTS: Unremarkable. PANCREAS: Unremarkable. SPLEEN: Unremarkable. ADRENAL GLANDS: Unremarkable. KIDNEYS AND URETERS: No evidence of hydronephrosis or renal calculus. The ureters are unremarkable. PELVIS BLADDER: No evidence for wall thickening or mass given limitations of exam. REPRODUCTIVE: The uterus is surgically absent. ABDOMEN & PELVIS STOMACH AND BOWEL: No evidence of bowel obstruction. Appendix is visualized with high density materia l along the mucosa. No fat stranding changes near the appendix is visualized. The appendix is patulou s. PERITONEUM/RETROPERITONEUM: No evidence of pneumoperitoneum or free fluid. VASCULATURE: Mild atherosclerotic calcifications are present throughout the abdominal aorta and its b ranches. No evidence of aortic aneurysm. MUSCULOSKELETAL: No acute osseous abnormalities. Mild disc degeneration changes are present throughou t the thoracolumbar spine. Cortical buckling of right rib 10 and series 201 image 33. LYMPH NODES: No gross evidence for lymphadenopathy. SOFT TISSUE/ABDOMINAL WALL: Fat-containing umbilical hernia. IMPRESSION: 1. No Evidence for acute abdominal process. No evidence for obstructive uropathy or renal calculus o n the right. 2. Patulous appendix without evidence for appendicitis. 3. Cortical buckling of right rib 10 correlate with pain for acute fracture. [facility], , 04/01/2024 5:43 PM
--- NOTE | 2024-04-01 17:49 | XR ---
EXAMINATION TYPE: XR chest 2V DATE OF EXAM: 04/01/2024 5:11 PM COMPARISON: Chest radiographs from 12/02/2023 CLINICAL INDICATION: Female, 63 years old with history of altered mental status; [facility] TECHNIQUE: XR chest 2V Frontal and lateral views of the chest. FINDINGS: Lungs/Pleura: There is no evidence of pleural effusion, focal consolidation, or pneumothorax. Pulmonary vascularity: Unremarkable. Heart/mediastinum: Cardiomediastinal silhouette is unremarkable. Musculoskeletal: No acute osseous pathology. Rotator cuff repair anchor in the right shoulder. IMPRESSION: No acute cardiopulmonary disease/process. [facility], , 04/01/2024 5:46 PM
--- NOTE | 2024-04-01 17:58 | CT ---
EXAMINATION TYPE: CT angio head neck DATE OF EXAM: 04/01/2024 5:43 PM COMPARISON: 04/01/2024. CLINICAL INDICATION: Female, 63 years old with history of L. Facial droop, L hand numb; PHH, shaking and weakness. code stroke L. Facial droop, L hand numb TECHNIQUE: Axially acquired helical CT angiogram of the head and neck was obtained with contrast. Axi al images are supplemented with 3D reconstructions and MIP images which were post-processed at an in dependent workstation. NASCET criteria used. Contrast used:65ml mL of Isovue 370 with IV Contrast, Oral contrast used: None. CT DLP: 546.2 mGycm, Automated exposure control for dose reduction was used. FINDINGS: CTA HEAD: No evidence of acute intracranial hemorrhage, mass effect, or midline shift. The ventricles, sulci, a nd cisterns are unremarkable. Vertebral arteries: The vertebral arteries are patent. Vertebral artery dominance: Codominant Basilar artery: The basilar artery is intact. The basilar artery bifurcation is normal. Internal Carotid arteries: Atherosclerosis of the intracranial carotid arteries. The cervical, petrou s, cavernous and supraclinoid segments are normal. TINO: Patent with no evidence of aneurysm. ACOM: Present without evidence of aneurysm. MCA: Patent with no evidence of aneurysm. FLATWORK IRONER: Patent with no evidence of aneurysm. PCOM: Hypoplastic bilaterally. Dural sinuses: Patent. CTA NECK: Right Carotid System: The common carotid artery and external carotid artery are patent. The carotid bifurcation demonstrate s no evidence of hemodynamically significant stenosis. The there is mild less than 50% stenosis of th e proximal internal carotid artery. Remaining portions of the internal carotid artery demonstrate nor mal size without significant narrowing. Left Carotid System: Stent graft at the origin is somewhat limited evaluation due to motion and blooming artifact from ext ensive calcifications. It is thought to be patent. The common carotid artery and external carotid art leela are patent. The carotid bifurcation demonstrates no evidence of hemodynamically significant steno sis. There is tortuosity to the internal carotid artery on the left just past the bifurcation. The re maining portions of the internal carotid artery demonstrate normal size without significant narrowing . Vertebral arteries are patent without evidence hemodynamically significant stenosis. Exam limited by motion and blooming artifact. Common carotids stent graft is present. There is a thre e-vessel aortic arch. The origins of the great vessels are patent. Severe atherosclerotic plaque at t he origin of the left brachiocephalic trunk subclavian artery with stent involving the common carotid artery near its origin at the aorta. Blooming artifact from dense calcifications limits evaluation. Left subclavian stent grafts near the axilla is patent. IMPRESSION: 1. Severe atherosclerotic plaque at the origins of the major vessels of the aorta with motion and bl ooming artifact limiting evaluation for degree of stenosis. There is thought to be high-grade stenosi s at the origin of the brachiocephalic trunk as well as the left subclavian artery. Consider further evaluation with [facility] angiography. These vessels are thought to be patent. 2. No evidence of dissection of the cervical internal carotid arteries or vertebral arteries. 3. No any evidence of significant stenosis at the carotid bifurcations. 4. No evidence of intracranial high-grade stenosis or intracranial aneurysm. 5. Left subclavian stent graft and left common carotid artery stent at its origin at that be patent. [facility], , 04/01/2024 5:56 PM
[2024-04-01] MEDS: IPRATROPIUM-ALBUTEROL 3 ML NEB INHALATION STA (18:22)
[2024-04-01] MEDS ORDERED: ACETAMINOPHEN TAB 325 MG TAB PO PRN (20:07)
[2024-04-01] MEDS ORDERED: ALBUTEROL NEBULIZED 2.5 MG/3 ML INHALATION PRN (20:11)
[2024-04-01] MEDS: FAMOTIDINE 20 MG TAB PO SCH (20:29)
[2024-04-01] MEDS: oxyCODONE-APAP 5-325MG 1 EACH TAB PO SCH (20:29)
[2024-04-01] MEDS: GABAPENTIN 400 MG CAP PO SCH (20:29)
[2024-04-01] MEDS: levETIRAcetam 500 MG TAB PO SCH (20:29)
[2024-04-01] MEDS: cloNIDine HCL 0.2 MG TAB PO SCH (20:30)
[2024-04-01] MEDS: DOXEPIN 10 MG CAP PO SCH (20:35)
[2024-04-01] MEDS: SODIUM CHLORIDE 0.9% 1,000 ML IV SCH (23:11)
[2024-04-01] MEDS: traMADol 50 MG TAB PO STA (23:11)
[2024-04-02] MEDS: SODIUM CHLORIDE 0.9% 500 ML 500 ML IV ONE (01:15)
[2024-04-02 02:06] LABS: Appearance,Urine Clear (Clear); Bilirubin,Urine Negative (Negative); Blood,Urine Negative (Negative); Color,Urine Colorless; Glucose,Urine (UA) Negative (Negative); Ketones,Urine Negative (Negative); Leukocyte Esterase,Urine Negative (Negative); Nitrite,Urine Negative (Negative); PH, Urine 6.5 (5.0-8.0); Protein,Urine Trace (Negative); Specific Gravity,Urine 1.043 (1.001-1.035); Urobilinogen,Urine <2.0 mg/dL (<2.0)
[2024-04-02] MEDS: LEVOTHYROXINE 100 MCG TAB PO SCH (05:58)
[2024-04-02] MEDS ORDERED: MIDODRINE 5 MG TAB PO SCH (07:30)
[2024-04-02] MEDS: MIDODRINE 5 MG TAB PO SCH (08:13)
[2024-04-02] MEDS: ESCITALOPRAM 20 MG TAB PO SCH (08:13)
[2024-04-02] MEDS: IPRATROPIUM 0.5 MG/2.5 ML NEBU INHALATION SCH (08:20)
[2024-04-02] MEDS: SYMBICORT 80-4.5 MCG INHALER INHALATION SCH (08:21)
--- NOTE | 2024-04-02 08:47 | P.HPIM ---
History of Present Illness H&P Date: 04/02/24 This is a 63-year-old female with a past medical history of COPD, chronic hypotension and CAD who presented to the emergency department yesterday afternoon with right lower quadrant abdominal pain. Patient has had issues with the same pain last month in which CT showed a dilated biliary duct. She was reportedly scheduled to have an MRCP on April 11. When patient arrived in the emergency department she was noted to have a left facial droop and a code stroke was called. Patient denies any numbness or weakness, reports occasional slurred speech. Patient seen this morning sitting up on stretcher in the emergency room. Patient still has somewhat of a left-sided facial droop but reports her symptoms have resolved. Her strength is equal bilaterally. She is still reporting right lower quadrant abdominal pain. Dr. Shaffer has been consulted as well as neurology. Review of Systems Constitutional: Denies chills, Denies fever Cardiovascular: Denies chest pain, Denies dyspnea on exertion Respiratory: Denies cough, Denies dyspnea Gastrointestinal: Reports abdominal pain Musculoskeletal: Denies arm numbness/tingling, Denies leg numbness/tingling Neurological: Reports change in speech, Reports weakness Past Medical History Past Medical History: Asthma, Coronary Artery Disease (CAD), Chest Pain / Angina, COPD, GERD/Reflux, Hyperlipidemia, Hypertension, Myocardial Infarction ([place]), Respiratory Disorder, Seizure Disorder, Thyroid Disorder, Vascular Disorder Additional Past Medical History / Comment(s): 2L oxygen use, 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 carotid blockage, PAD, vertigo at times. Last Myocardial Infarction Date:: 06/2022 History of Any Multi-Drug Resistant Organisms: None Reported Past Surgical History: Heart Catheterization, Heart Catheterization With Stent, Hysterectomy, Joint Replacement, Orthopedic Surgery Additional Past Surgical History / Comment(s): RT ROTATOR CUFF REPAIR, R total knee, CYSTS REMOVED FROM UNDER ARMS AND HANDS, arch studies, L caratid endartectomy, 4 cardiac stents, several peripheral stents, 07/18/18 left subclavian stent, arch studies. Past Anesthesia/Blood Transfusion Reactions: No Reported Reaction Additional Past Anesthesia/Blood Transfusion Reaction / Comment(s): Pt states that she is unable to go under general anesthesia per her senior advocate due to low functioning lungs. Pt has never received blood. Date of Last Stent Placement:: Nov 2017 Past Psychological History: Anxiety, Depression Smoking Status: Current every day smoker, Light tobacco smoker Past Alcohol Use History: None Reported Past Drug Use History: None Reported, Marijuana - Past Family History Mother Family Medical History: Cancer Sister(s) Family Medical History: Cancer Medications and Allergies Home Medications Medication Instructions Recorded Confirmed Type Escitalopram [Lexapro] 20 mg PO DAILY 11/28/17 04/01/24 History Levothyroxine Sodium 200 mcg PO DAILY 08/20/20 04/01/24 History Doxepin [SINEquan] 10 mg PO HS 02/25/22 04/01/24 History cloNIDine HCL [Catapres] 0.2 mg PO HS 02/03/23 04/01/24 History levETIRAcetam [Keppra] 1,000 mg PO BID 02/03/23 04/01/24 History Gabapentin 800 mg PO BID 04/09/23 04/01/24 History oxyCODONE HCL/ACETAMINOPHEN 2 tab PO Q6H 11/24/23 04/01/24 History [oxyCODONE HCL/ACETAMINOPHEN 5-325] Fluticasone/Umeclidin/Vilanter 1 puff INHALATION RT-DAILY 11/25/23 04/01/24 History [Trelegy Ellipta 200-62.5-25] Midodrine [ProAmatine] 5 mg PO AC-BID #30 tab 12/09/23 04/01/24 Rx Albuterol Inhaler [Ventolin Hfa 2 puff INHALATION RT-Q4H PRN 04/01/24 04/01/24 History Inhaler] Allergies Allergy/AdvReac Type Severity Reaction Status Date / Time No Known Allergies Allergy Verified 04/01/24 17:20 Physical Exam Vitals: Vital Signs Temp Pulse Pulse Resp BP BP Pulse Ox 04/02/24 08:31 77 04/02/24 08:23 94 L 04/02/24 08:21 85 04/02/24 08:00 98.0 F 80 18 93/58 04/02/24 06:00 77 18 53/34 93 L 04/02/24 05:19 78 19 53/34 92 L 04/02/24 01:04 90 18 75/50 93 L 04/02/24 00:45 87 18 64/35 95 04/01/24 23:00 92 18 76/38 04/01/24 21:29 98 19 81/44 93 L 04/01/24 20:02 101 H 18 89/51 93 L 04/01/24 19:12 94 16 103/51 93 L 04/01/24 18:32 95 04/01/24 18:23 93 04/01/24 18:20 97.9 F 93 14 92/63 94 L 04/01/24 17:41 93 L 04/01/24 17:35 98.0 F 92 16 92/63 94 L 04/01/24 17:24 97.9 F 97 16 79/40 88 L 04/01/24 17:05 98.0 F 96 14 86/56 98 04/01/24 16:50 97.9 F 96 16 75/39 93 L 04/01/24 16:05 98.2 F 105 H 20 67/42 91 L Intake and Output 04/01/24 04/02/24 04/02/24 22:59 06:59 14:59 Other: Weight 82.554 kg - Constitutional General appearance: cooperative, no acute distress - EENT Eyes: PERRLA - Neck Neck: no lymphadenopathy, normal ROM, no rigidity - Respiratory Respiratory: bilateral: diminished - Cardiovascular Rhythm: regular Heart sounds: normal: S1, S2 - Gastrointestinal Tenderness to right lower quadrant General gastrointestinal: soft - Neurologic Neurologic: CNII-XII intact - Psychiatric Psychiatric: A&O x's 3 Results CBC & Chem 7: 04/01/24 16:55 04/01/24 16:55 Labs: Abnormal Lab Results - Last 24 Hours (Table) 04/01/24 04/01/24 04/01/24 Range/Units 16:30 16:55 16:55 RBC 3.74 L (3.80-5.40) m/uL BUN 23 H (7-17) mg/dL Creatinine 1.11 H (0.52-1.04) mg/dL Glucose 124 H (74-99) mg/dL POC Glucose (mg/dL) 165 H (70-110) mg/dL Total Bilirubin 0.1 L (0.2-1.3) mg/dL Ur Specific [place] (1.001-1.035) Urine Protein (Negative) 04/01/24 04/02/24 Range/Units 17:12 01:45 RBC (3.80-5.40) m/uL BUN (7-17) mg/dL Creatinine (0.52-1.04) mg/dL Glucose (74-99) mg/dL POC Glucose (mg/dL) 124 H (70-110) mg/dL Total Bilirubin (0.2-1.3) mg/dL Ur Specific [place] 1.043 H (1.001-1.035) Urine Protein Trace H (Negative) Assessment and Plan (1) Abdominal pain Current Visit: No Status: Acute Code(s): R10.9 - UNSPECIFIED ABDOMINAL PAIN SNOMED Code(s): 64090437 (2) CAD (coronary artery disease) Current Visit: No Status: Acute Code(s): I25.10 - ATHSCL HEART DISEASE OF [place] CORONARY ARTERY W/O ANG PCTRS SNOMED Code(s): 21877221 (3) COPD (chronic obstructive pulmonary disease) Current Visit: No Status: Acute Code(s): J44.9 - CHRONIC OBSTRUCTIVE PULMONARY DISEASE, UNSPECIFIED SNOMED Code(s): 06838064 (4) Chronic hypotension Current Visit: No Status: Acute Code(s): I95.89 - OTHER HYPOTENSION SNOMED Code(s): 36862101 (5) Dilated bile duct Current Visit: No Status: Acute Code(s): K83.8 - OTHER SPECIFIED DISEASES OF BILIARY TRACT SNOMED Code(s): 254118516 (6) Hypothyroid Current Visit: No Status: Acute Code(s): E03.9 - HYPOTHYROIDISM, UNSPECIFIED SNOMED Code(s): 56823112 (7) Opiate dependence Current Visit: No Status: Acute Code(s): F11.20 - OPIOID DEPENDENCE, UNCOMPLICATED SNOMED Code(s): 14486342 (8) Tobacco abuse Current Visit: No Status: Acute Code(s): Z72.0 - TOBACCO USE SNOMED Code(s): 117538335 Plan: Continue home medications. Check CBC and CMP in the morning. Appreciate multiple consultants recommendations. Patient seen and evaluated by nurse practitioner, physician in agreement with plan.
--- NOTE | 2024-04-02 08:50 | P.GSCN ---
History of Present Illness Consult date: 04/02/24 Reason for Consult: Right lower quad abdominal pain History of present illness: 63-year-old female who came to the hospital yesterday complaining of right sided abdominal pain. She was noted in triage to have some facial drooping and the patient states that has been happening intermittently to her. Patient had a CT brain, angiogram, CT abdomen pelvis. Patient's CAT scan shows a mildly enlarged appendix. This is unchanged from a CAT scan performed in February and actually fairly similar to a CAT scan performed back in 2020. White blood cell count is normal. Patient states the pain seems to come and go. Denies nausea or vomiting. No change in bowel function. Patient apparently has a MRCP scheduled later this month for a dilated biliary tree however again the biliary dilation seems to be unchanged from previous CAT scans. Liver enzymes are normal. Today the patient was seen in the ER. She is on oxygen. Patient states she was told by her lung doctor never to have anesthesia because of her COPD. Patient says her pain is now gone. No further neurologic symptoms. Neurology consult pending. 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 carotid blockage, PAD, vertigo at times. Last Myocardial Infarction Date:: 06/2022 History of Any Multi-Drug Resistant Organisms: None Reported Past Surgical History: Heart Catheterization, Heart Catheterization With Stent, Hysterectomy, Joint Replacement, Orthopedic Surgery Additional Past Surgical History / Comment(s): RT ROTATOR CUFF REPAIR, R total knee, CYSTS REMOVED FROM UNDER ARMS AND HANDS, arch studies, L caratid endartect deborah, 4 cardiac stents, several peripheral stents, 07/18/18 left subclavian stent, arch studies. Past Anesthesia/Blood Transfusion Reactions: No Reported Reaction Additional Past Anesthesia/Blood Transfusion Reaction / Comm: Pt states that she is unable to go under general anesthesia per her compliance nurse due to low functioning lungs. Pt has never received blood. Date of Last Stent Placement:: Nov 2017 Past Psychological History: Anxiety, Depression Smoking Status: Current every day smoker, Light tobacco smoker Past Alcohol Use History: None Reported Past Drug Use History: None Reported, Marijuana - Past Family History Mother Family Medical History: Cancer Sister(s) Family Medical History: Cancer Medications and Allergies Home Medications Medication Instructions Recorded Confirmed Type Escitalopram [Lexapro] 20 mg PO DAILY 11/28/17 04/01/24 History Levothyroxine Sodium 200 mcg PO DAILY 08/20/20 04/01/24 History Doxepin [SINEquan] 10 mg PO HS 02/25/22 04/01/24 History cloNIDine HCL [Catapres] 0.2 mg PO HS 02/03/23 04/01/24 History levETIRAcetam [Keppra] 1,000 mg PO BID 02/03/23 04/01/24 History Gabapentin 800 mg PO BID 04/09/23 04/01/24 History oxyCODONE HCL/ACETAMINOPHEN 2 tab PO Q6H 11/24/23 04/01/24 History [oxyCODONE HCL/ACETAMINOPHEN 5-325] Fluticasone/Umeclidin/Vilanter 1 puff INHALATION RT-DAILY 11/25/23 04/01/24 History [Trelegy Ellipta 200-62.5-25] Midodrine [ProAmatine] 5 mg PO AC-BID #30 tab 12/09/23 04/01/24 Rx Albuterol Inhaler [Ventolin Hfa 2 puff INHALATION RT-Q4H PRN 04/01/24 04/01/24 History Inhaler] Allergies Allergy/AdvReac Type Severity Reaction Status Date / Time No Known Allergies Allergy Verified 04/01/24 17:20 Surgical - Exam Vital Signs Temp Pulse Resp BP Pulse Ox 98.2 F 105 H 20 67/42 91 L 04/01/24 16:05 04/01/24 16:05 04/01/24 16:05 04/01/24 16:05 04/01/24 16:05 Physical exam: General: Well-developed, well-nourished HEENT: Normocephalic, sclerae nonicteric Abdomen: Nontender, nondistended Extremities: No edema Neuro: Alert and oriented Results - Labs 04/01/24 16:55 04/01/24 16:55 Abnormal Lab Results - Last 24 Hours (Table) 04/01/24 04/01/24 04/01/24 Range/Units 16:30 16:55 16:55 RBC 3.74 L (3.80-5.40) m/uL BUN 23 H (7-17) mg/dL Creatinine 1.11 H (0.52-1.04) mg/dL Glucose 124 H (74-99) mg/dL POC Glucose (mg/dL) 165 H (70-110) mg/dL Total Bilirubin 0.1 L (0.2-1.3) mg/dL Ur Specific [place] (1.001-1.035) Urine Protein (Negative) 04/01/24 04/02/24 Range/Units 17:12 01:45 RBC (3.80-5.40) m/uL BUN (7-17) mg/dL Creatinine (0.52-1.04) mg/dL Glucose (74-99) mg/dL POC Glucose (mg/dL) 124 H (70-110) mg/dL Total Bilirubin (0.2-1.3) mg/dL Ur Specific [place] 1.043 H (1.001-1.035) Urine Protein Trace H (Negative) Diabetes panel 04/01/24 Range/Units 16:55 Sodium 138 (137-145) mmol/L Potassium 4.3 (3.5-5.1) mmol/L Chloride 105 (98-107) mmol/L Carbon Dioxide 22 (22-30) mmol/L BUN 23 H (7-17) mg/dL Creatinine 1.11 H (0.52-1.04) mg/dL Glucose 124 H (74-99) mg/dL Calcium 9.2 (8.4-10.2) mg/dL AST 16 (14-36) U/L ALT 9 (4-34) U/L Alkaline Phosphatase 106 (38-126) U/L Total Protein 6.5 (6.3-8.2) g/dL Albumin 4.1 (3.5-5.0) g/dL Calcium panel 04/01/24 Range/Units 16:55 Calcium 9.2 (8.4-10.2) mg/dL Albumin 4.1 (3.5-5.0) g/dL Pituitary panel 04/01/24 Range/Units 16:55 Sodium 138 (137-145) mmol/L Potassium 4.3 (3.5-5.1) mmol/L Chloride 105 (98-107) mmol/L Carbon Dioxide 22 (22-30) mmol/L BUN 23 H (7-17) mg/dL Creatinine 1.11 H (0.52-1.04) mg/dL Glucose 124 H (74-99) mg/dL Calcium 9.2 (8.4-10.2) mg/dL Adrenal panel 04/01/24 Range/Units 16:55 Sodium 138 (137-145) mmol/L Potassium 4.3 (3.5-5.1) mmol/L Chloride 105 (98-107) mmol/L Carbon Dioxide 22 (22-30) mmol/L BUN 23 H (7-17) mg/dL Creatinine 1.11 H (0.52-1.04) mg/dL Glucose 124 H (74-99) mg/dL Calcium 9.2 (8.4-10.2) mg/dL Total Bilirubin 0.1 L (0.2-1.3) mg/dL AST 16 (14-36) U/L ALT 9 (4-34) U/L Alkaline Phosphatase 106 (38-126) U/L Total Protein 6.5 (6.3-8.2) g/dL Albumin 4.1 (3.5-5.0) g/dL Assessment and Plan Assessment: 63-year-old female with right lower quadrant pain. Patient's pain is now gone. CAT scan reviewed and does not show any significant findings to explain her symptoms. Patient telling me that she is not a candidate for anesthesia because of her pulmonary issues. She has no code. Will resume regular diet. No surgical intervention planned. Will sign off. Please reconsult if needed. Continue neurologic workup.
[2024-04-02 09:23] LABS: Chol/HDL Ratio 4.26 Ratio; LDL Cholesterol,Calculated 108.1 mg/dL (0.0-131.0)
--- NOTE | 2024-04-02 10:52 | CA ---
Transthoracic Echo Report Name: Lidia Chang Age: 63 Gender: F : 1960 Exam Date: 04/02/2024 09:15 Exam Location: [facility] Ht (in): 65 Wt (lb): 182 Ordering Physician: Whitney Peacock MD Attending/Referring Phys: Conveyor Mechanic Kathy Ramirez RDCS Procedure CPT: Indications: tia Cardiac Hx: Technical Quality: Fair Contrast 1: Agitated Saline Total Dose (mL): Contrast 2: Total Dose (mL): MEASUREMENTS (Male / Female) Normal Values 2D ECHO LV Diastolic Volume MOD BP 46.6 cm??? 67 - 155 / 56 - 104 cm??? LV Systolic Volume MOD BP 19.7 cm??? 22 - 58 / 19 - 49 cm??? LV Ejection Fraction MOD BP 57.7 % >= 55 % LV Cardiac Index MOD BP 1119.8 cm???/min???m??? LV Diastolic Volume MOD 4C 40.5 cm??? LV Systolic Volume MOD 4C 18.5 cm??? LV Ejection Fraction MOD 4C 54.4 % LV Cardiac Index MOD 4C 916.7 cm???/min???m??? LV Diastolic Length 4C 6.8 cm LV Systolic Length 4C 6.3 cm LV Diastolic Volume MOD 2C 52.4 cm??? LV Systolic Volume MOD 2C 18.6 cm??? LV Ejection Fraction MOD 2C 64.6 % LV Cardiac Index MOD 2C 1405.8 cm???/min???m??? LV Diastolic Length 2C 6.5 cm LV Systolic Length 2C 5.5 cm M-MODE Aortic Root Diameter MM 3.8 cm LA Systolic Diameter MM 2.9 cm LA Ao Ratio MM 0.8 AV Cusp Separation MM 2.3 cm DOPPLER AV Peak Velocity 149.7 cm/s AV Peak Gradient 9.0 mmHg Mitral E Point Velocity 89.1 cm/s Mitral A Point Velocity 96.0 cm/s Mitral E to A Ratio 0.9 MV Deceleration Time 215.7 ms MV E' Velocity 8.0 cm/s Mitral E to MV E' Ratio 11.1 TR Peak Velocity 203.1 cm/s TR Peak Gradient 16.5 mmHg Right Ventricular Systolic Press 26.5 mmHg FINDINGS Left Ventricle Left ventricular ejection fraction is estimated at 55-60 %. Normal left ventricular systolic function with no obvious regional wall motion abnormalities. Left ventricular cavity size normal. Left ventricular wall thickness normal. Right Ventricle Right ventricular systolic pressure within normal limits.normal right ventricular global systolic function. Right Atrium Normal right atrial size. Negative agitated saline bubble study for right to left shunt. Left Atrium Normal left atrial size. Mitral Valve Structurally normal mitral valve. Trace to mild mitral regurgitation. No mitral stenosis. Aortic Valve Aortic valve not well visualized. . No aortic valve stenosis or regurgitation. Tricuspid Valve Structurally normal tricuspid valve. Trace tricuspid regurgitation. No tricuspid stenosis. Pulmonic Valve Pulmonic valve not well visualized. . No pulmonic stenosis. Pericardium No pericardial or pleural effusion. Echo free space anterior to the right ventricle likely represents a fat pad. Aorta Normal size aortic root and proximal ascending aorta. CONCLUSIONS Technically difficult study. Normal left ventricular size and systolic function No evidence of shunting by contrast bubble study Limited Doppler study with trace to mild mitral regurgitation Previewed by: Dr. Ivan Ribeiro MD (Electronically Signed) Final Date: 02 April 2024 10:50
--- NOTE | 2024-04-02 13:39 | P.CRDCN ---
History of Present Illness Consult date: 04/02/24 Reason for Consult (text): Carotid stenosis History of present illness: This is a 63-year-old female patient of Dr. Sheikh with past medical history of coronary artery disease with prior stenting of the LAD in 2018, hypertension, dyslipidemia, carotid atherosclerosis status post left carotid enterectomy status post stenting of the left common carotid artery 10/2022, PAD with prior left subclavian stenting, history of smoking, COPD, carotid hypoxic respiratory failure. We have been asked to evaluate the patient for severe carotid stenos is. Patient presented to the hospital due to abdominal pain and has been seen by general surgery. Abdominal pain has resolved. Patient also had a left facial droop on and off since November. None is noted at this time. Neurology is on consult. -EKG: Sinus tachycardia 100 bpm -Chest x-ray: -CT brain no acute process. -CT angio head and neck: Severe atherosclerotic plaque at the origins of major vessels of the aorta with motion blooming artifact limiting evaluation of degree of stenosis. Thought to be high-grade stenosis at the origin of the brachiocephalic trunk as well as left subclavian artery. No evidence of significant stenosis at the carotid bifurcations. No evidence of intracranial high-grade stenosis or intracranial aneurysm. Left subclavian stent graft and left common carotid artery stent. -Laboratory studies: Hemoglobin 1.9. BUN 23 creatinine 1.11. Troponin negative x 2. Triglycerides 156, cholesterol 182, LDL 108, HDL 42. -Home cardiac medications: Clonidine 0.2 mg at bedtime, also on midodrine and levothyroxine. -Echocardiogram performed 03/2022 revealed normal EF, mild MR, mild TR. Review Of Systems: At the time of my exam: CONSTITUTIONAL: Denies fever or chills. HEENT: Denies blurred vision, vision changes, or eye pain. Denies hemoptysis CARDIOVASCULAR: Denies chest pain. Denies orthopnea. Denies PND. Denies palpitations RESPIRATORY: Denies shortness of breath. GASTROINTESTINAL: Denies abdominal pain. Denies nausea or vomiting. HEMATOLOGIC: Denies bleeding disorders. GENITOURINARY: Denies any blood in urine. SKIN: Denies puritis. Denies rash. Physical examination: Gen: This is 63-year-old female appears to be in no acute distress VS: reviewed HEENT: Head is atraumatic, normocephalic. Pupils equal, round. Sclerae is anicteric. NECK: Supple. No JVD. LUNGS: Clear to auscultation. No wheezes or rhonchi. No intercostal retractions. HEART: Regular rate and rhythm. No murmur. ABDOMEN: Soft No tenderness. EXTREMITIES: No pedal edema. No calf tenderness. NEUROLOGICAL: Patient is awake, alert and oriented x3. Assessment: Carotid stenosis with previous left carotid endarterectomy and stenting of the left common carotid artery Abdominal pain resolved History of coronary artery disease with prior stenting of the LAD Hypertension Dyslipidemia PAD status post left subclavian stenting Tobacco use and dependence COPD Plan: Resume patient's home cardiac medications No further cardiac workup at this time Patient will follow-up with Dr. Vale in 1 week after discharge Plan for outpatient carotid angiogram, four-vessel study Further recommendations to follow based upon clinical course Thank you kindly for this consultation. Nurse practitioner note has been reviewed, I agree with documented findings and plan of care. Patient was seen and examined. Past Medical History Past Medical History: Asthma, Coronary Artery Disease (CAD), Chest Pain / Angina, COPD, GERD/Reflux, Hyperlipidemia, Hypertension, Myocardial Infarction ([place]), Respiratory Disorder, Seizure Disorder, Thyroid Disorder, Vascular Disorder Additional Past Medical History / Comment(s): 2L oxygen use, NEUROPATHY TO BILAT HANDS AND LEGS AND RT FOOT, last seizure 07/2022, 09/15/22 reports fx left knee/b race/painful, LATELY LOW BLOOD PRESSURE,. carotid blockage, PAD, vertigo at times. Last Myocardial Infarction Date:: 06/2022 History of Any Multi-Drug Resistant Organisms: None Reported Past Surgical History: Heart Catheterization, Heart Catheterization With Stent, Hysterectomy, Joint Replacement, Orthopedic Surgery Additional Past Surgical History / Comment(s): RT ROTATOR CUFF REPAIR, R total knee, CYSTS REMOVED FROM UNDER ARMS AND HANDS, arch studies, L caratid endartectomy, 4 cardiac stents, several peripheral stents, 07/18/18 left subclavian stent, arch studies. 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 Pt has never received blood. Date of Last Stent Placement:: Nov 2017 Past Psychological History: Anxiety, Depression Smoking Status: Current every day smoker, Light tobacco smoker Past Alcohol Use History: None Reported Past Drug Use History: None Reported, Marijuana - Past Family History Mother Family Medical History: Cancer Sister(s) Family Medical History: Cancer Medications and Allergies Home Medications Medication Instructions Recorded Confirmed Type Escitalopram [Lexapro] 20 mg PO DAILY 11/28/17 04/01/24 History Levothyroxine Sodium 200 mcg PO DAILY 08/20/20 04/01/24 History Doxepin [SINEquan] 10 mg PO HS 02/25/22 04/01/24 History cloNIDine HCL [Catapres] 0.2 mg PO HS 02/03/23 04/01/24 History levETIRAcetam [Keppra] 1,000 mg PO BID 02/03/23 04/01/24 History Gabapentin 800 mg PO BID 04/09/23 04/01/24 History oxyCODONE HCL/ACETAMINOPHEN 2 tab PO Q6H 11/24/23 04/01/24 History [oxyCODONE HCL/ACETAMINOPHEN 5-325] Fluticasone/Umeclidin/Vilanter 1 puff INHALATION RT-DAILY 11/25/23 04/01/24 History [Trelegy Ellipta 200-62.5-25] Midodrine [ProAmatine] 5 mg PO AC-BID #30 tab 12/09/23 04/01/24 Rx Albuterol Inhaler [Ventolin Hfa 2 puff INHALATION RT-Q4H PRN 04/01/24 04/01/24 History Inhaler] Allergies Allergy/AdvReac Type Severity Reaction Status Date / Time No Known Allergies Allergy Verified 04/01/24 17:20 Physical Exam Vitals: Vital Signs Temp Pulse Pulse Resp BP BP Pulse Ox 04/02/24 11:43 85 04/02/24 11:36 04/02/24 11:34 76 04/02/24 09:41 04/02/24 09:27 04/02/24 08:31 77 04/02/24 08:23 94 L 04/02/24 08:21 85 04/02/24 08:00 98.0 F 77 22 93/58 04/02/24 06:00 77 18 53/34 93 L 04/02/24 05:19 78 19 53/34 92 L 04/02/24 01:04 90 18 75/50 93 L 04/02/24 00:45 87 18 64/35 95 04/01/24 23:00 92 18 76/38 04/01/24 21:29 98 19 81/44 93 L 04/01/24 20:02 101 H 18 89/51 93 L 04/01/24 19:12 94 16 103/51 93 L 04/01/24 18:32 95 04/01/24 18:23 93 04/01/24 18:20 97.9 F 93 14 92/63 94 L 04/01/24 17:41 93 L 04/01/24 17:35 98.0 F 92 16 92/63 94 L 04/01/24 17:24 97.9 F 97 16 79/40 88 L 04/01/24 17:05 98.0 F 96 14 86/56 98 04/01/24 16:50 97.9 F 96 16 75/39 93 L 04/01/24 16:05 98.2 F 105 H 20 67/42 91 L FiO2 04/02/24 11:43 04/02/24 11:36 30 04/02/24 11:34 04/02/24 09:41 30 04/02/24 09:27 30 04/02/24 08:31 04/02/24 08:23 04/02/24 08:21 04/02/24 08:00 04/02/24 06:00 04/02/24 05:19 04/02/24 01:04 04/02/24 00:45 04/01/24 23:00 04/01/24 21:29 04/01/24 20:02 04/01/24 19:12 04/01/24 18:32 04/01/24 18:23 04/01/24 18:20 04/01/24 17:41 04/01/24 17:35 04/01/24 17:24 04/01/24 17:05 04/01/24 16:50 04/01/24 16:05 Intake and Output 04/01/24 04/02/24 04/02/24 22:59 06:59 14:59 Other: Weight 82.554 kg Results 04/01/24 16:55 04/01/24 16:55 Cardiac Enzymes 04/01/24 04/01/24 04/01/24 Range/Units 16:55 16:55 19:56 AST 16 (14-36) U/L Troponin I <0.012 <0.012 (0.000-0.034) ng/mL Coagulation 04/01/24 Range/Units 16:55 PT 10.5 (10.0-12.5) sec APTT 23.5 (22.0-30.0) sec Lipids 04/01/24 Range/Units 16:55 Triglycerides 156.00 H (0.00-149.00) mg/dL Cholesterol 182.00 (0.00-200.00) mg/dL HDL Cholesterol 42.70 (40.00-60.00) mg/dL Cholesterol/HDL Ratio 4.26 Ratio CBC 04/01/24 Range/Units 16:55 WBC 8.5 (3.8-10.6) k/uL RBC 3.74 L (3.80-5.40) m/uL Hgb 11.9 (11.4-16.0) gm/dL Hct 37.0 (34.0-46.0) % Plt Count 276 (150-450) k/uL Comprehensive Metabolic Panel 04/01/24 Range/Units 16:55 Sodium 138 (137-145) mmol/L Potassium 4.3 (3.5-5.1) mmol/L Chloride 105 (98-107) mmol/L Carbon Dioxide 22 (22-30) mmol/L BUN 23 H (7-17) mg/dL Creatinine 1.11 H (0.52-1.04) mg/dL Glucose 124 H (74-99) mg/dL Calcium 9.2 (8.4-10.2) mg/dL AST 16 (14-36) U/L ALT 9 (4-34) U/L Alkaline Phosphatase 106 (38-126) U/L Total Protein 6.5 (6.3-8.2) g/dL Albumin 4.1 (3.5-5.0) g/dL Current Medications Generic Name Dose Route Start Last Admin Trade Name Freq PRN Reason Stop Dose Admin Albuterol Sulfate 2.5 mg 04/01/24 20:11 Albuterol Nebulized 2.5 Mg/3 Ml INHALATION RT-Q4H PRN Shortness Of Breath Budesonide/Formoterol Fumarate 2 puff 04/02/24 08:00 04/02/24 08:21 Symbicort 80-4.5 Mcg Inhaler INHALATION 2 puff RT-BID VINICIO Administration Clonidine 0.2 mg 04/01/24 21:00 04/01/24 20:30 Clonidine Hcl 0.2 Mg Tab PO 0.2 mg HS VINICIO Administration Doxepin HCl 10 mg 04/01/24 21:00 04/01/24 20:35 Doxepin 10 Mg Cap PO 10 mg HS VINICIO Administration Escitalopram Oxalate 20 mg 04/02/24 09:00 04/02/24 08:13 Escitalopram 20 Mg Tab PO 20 mg DAILY VINICIO Administration Famotidine 20 mg 04/01/24 21:00 04/02/24 08:13 Famotidine 20 Mg Tab PO 20 mg BID VINICIO Administration Fentanyl Citrate 50 mcg 04/01/24 17:44 Fentanyl (Pf) 50 Mcg/Ml 2 Ml Amp IVP 04/02/24 17:43 Q1HR PRN Severe Pain (Scale 7 to 10) Gabapentin 800 mg 04/01/24 21:00 04/02/24 08:12 Gabapentin 400 Mg Cap PO 800 mg BID VINICIO Administration Sodium Chloride 1,000 mls @ 75 mls/hr 04/01/24 23:00 04/01/24 23:11 Saline 0.9% IV 75 mls/hr .[id number] VINICIO Administration Ipratropium [place] 0.5 mg 04/02/24 08:00 04/02/24 11:34 Ipratropium 0.5 Mg/2.5 Ml Nebu INHALATION 0.5 mg RT-QID VINICIO Administration Levetiracetam 1,000 mg 04/01/24 21:00 04/02/24 08:12 Levetiracetam 500 Mg Tab PO 1,000 mg BID VINICIO Administration Levothyroxine Sodium 200 mcg 04/02/24 06:30 04/02/24 05:58 Levothyroxine 100 Mcg Tab PO 200 mcg 0630 VINICIO Administration Midodrine 5 mg 04/02/24 07:30 04/02/24 08:13 Midodrine 5 Mg Tab PO 5 mg AC-BID VINICIO Administration Oxycodone/Acetaminophen 2 each 04/01/24 20:15 04/02/24 08:12 Oxycodone-Apap 5-325mg 1 Each Tab PO 2 each Q6H VINICIO Administration Intake and Output 04/01/24 04/02/24 04/02/24 22:59 06:59 14:59 Other: Weight 82.554 kg 04/01/24 16:55 04/01/24 16:55
[2024-04-02] MEDS: oxyCODONE-APAP 5-325MG 1 EACH TAB PO SCH (15:15)
--- NOTE | 2024-04-02 16:44 | P.CNPUL ---
History of Present Illness Consult date: 04/02/24 Requesting physician: Geri Dexter Reason for consult: COPD Chief complaint: Right lower quadrant abdominal pain History of present illness: Family are to our service, known history of multiple medical problems including chronic hypoxic respiratory failure, COPD, hypertension, coronary artery disease, seizure disorder, patient is on home oxygen, she is also on BiPAP at home, brought into the ER with 1 day history of right-sided abdominal pain. While in triage, she was also noted to have some facial drooping, CT of the brain came back negative CT abdomen pelvis came back negative except for enlarged appendix. Patient had relatively normal WBC count, as far as her abdominal pain, patient was seen by surgery and at that time she was seen by Dr. Rutledge, she had no abdominal findings and no abdominal pain. Previously the patient had dilated biliary duct, and she was supposedly scheduled for MRCP on April 11. The left facial droop, patient was admitted, and because of her underlying COPD, this consult was initiated. During my evaluation, the patient had no shortness of breath no cough no wheezing she actually had no active pulmonary issues whatsoever. WBC count 8.5 hemoglobin 11.9 basic metabolic profile is normal renal profile is normal.Chest x-ray showed no evidence of any acute cardiopulmonary process for Review of Systems CONSTITUTIONAL: Denies fever or chills. HEENT: Denies blurred vision, vision changes, or eye pain. Denies hemoptysis CARDIOVASCULAR: Denies chest pain. Denies orthopnea. Denies PND. Denies palpitations RESPIRATORY: Denies shortness of breath. GASTROINTESTINAL: As noted in HPI however during my evaluation she had no abdominal pain HEMATOLOGIC: Denies bleeding disorders. GENITOURINARY: Denies any blood in urine. SKIN: Denies puritis. Denies rash. Past Medical History Past Medical History: Asthma, Coronary Artery Disease (CAD), Chest Pain / Angina, COPD, GERD/Reflux, Hyperlipidemia, Hypertension, Myocardial Infarction ([place]), Respiratory Disorder, Seizure Disorder, Thyroid Disorder, Vascular Disorder Additional Past Medical History / Comment(s): 2L oxygen use, 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 carotid blockage, PAD, vertigo at times. Last Myocardial Infarction Date:: 06/2022 History of Any Multi-Drug Resistant Organisms: None Reported Past Surgical History: Heart Catheterization, Heart Catheterization With Stent, Hysterectomy, Joint Replacement, Orthopedic Surgery Additional Past Surgical History / Comment(s): RT ROTATOR CUFF REPAIR, R total knee, CYSTS REMOVED FROM UNDER ARMS AND HANDS, arch studies, L caratid endartectomy, 4 cardiac stents, several peripheral stents, 07/18/18 left subclavian stent, arch studies. 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 Pt has never received blood. Date of Last Stent Placement:: Nov 2017 Past Psychological History: Anxiety, Depression Smoking Status: Current every day smoker, Light tobacco smoker Past Alcohol Use History: None Reported Past Drug Use History: None Reported, Marijuana - Past Family History Mother Family Medical History: Cancer Sister(s) Family Medical History: Cancer Medications and Allergies Home Medications Medication Instructions Recorded Confirmed Type Escitalopram [Lexapro] 20 mg PO DAILY 11/28/17 04/01/24 History Levothyroxine Sodium 200 mcg PO DAILY 08/20/20 04/01/24 History Doxepin [SINEquan] 10 mg PO HS 02/25/22 04/01/24 History cloNIDine HCL [Catapres] 0.2 mg PO HS 02/03/23 04/01/24 History levETIRAcetam [Keppra] 1,000 mg PO BID 02/03/23 04/01/24 History Gabapentin 800 mg PO BID 04/09/23 04/01/24 History oxyCODONE HCL/ACETAMINOPHEN 2 tab PO Q6H 11/24/23 04/01/24 History [oxyCODONE HCL/ACETAMINOPHEN 5-325] Fluticasone/Umeclidin/Vilanter 1 puff INHALATION RT-DAILY 11/25/23 04/01/24 History [Trelegy Ellipta 200-62.5-25] Midodrine [ProAmatine] 5 mg PO AC-BID #30 tab 12/09/23 04/01/24 Rx Albuterol Inhaler [Ventolin Hfa 2 puff INHALATION RT-Q4H PRN 04/01/24 04/01/24 History Inhaler] Allergies Allergy/AdvReac Type Severity Reaction Status Date / Time No Known Allergies Allergy Verified 04/01/24 17:20 Physical Exam Vitals: Vital Signs Temp Pulse Pulse Resp BP BP Pulse Ox 04/02/24 15:42 84 04/02/24 15:33 94 L 04/02/24 15:30 80 04/02/24 14:00 70 22 04/02/24 12:00 98.0 F 70 18 91/70 94 L 04/02/24 11:43 85 04/02/24 11:36 04/02/24 11:34 76 04/02/24 09:41 04/02/24 09:27 04/02/24 08:31 77 04/02/24 08:23 94 L 04/02/24 08:21 85 04/02/24 08:00 98.0 F 77 22 93/58 04/02/24 06:00 77 18 53/34 93 L 04/02/24 05:19 78 19 53/34 92 L 04/02/24 01:04 90 18 75/50 93 L 04/02/24 00:45 87 18 64/35 95 04/01/24 23:00 92 18 76/38 04/01/24 21:29 98 19 81/44 93 L 04/01/24 20:02 101 H 18 89/51 93 L 04/01/24 19:12 94 16 103/51 93 L 04/01/24 18:32 95 04/01/24 18:23 93 04/01/24 18:20 97.9 F 93 14 92/63 94 L 04/01/24 17:41 93 L 04/01/24 17:35 98.0 F 92 16 92/63 94 L 04/01/24 17:24 97.9 F 97 16 79/40 88 L 04/01/24 17:05 98.0 F 96 14 86/56 98 04/01/24 16:50 97.9 F 96 16 75/39 93 L FiO2 04/02/24 15:42 04/02/24 15:33 04/02/24 15:30 04/02/24 14:00 04/02/24 12:00 04/02/24 11:43 04/02/24 11:36 30 04/02/24 11:34 04/02/24 09:41 30 04/02/24 09:27 30 04/02/24 08:31 04/02/24 08:23 04/02/24 08:21 04/02/24 08:00 04/02/24 06:00 04/02/24 05:19 04/02/24 01:04 04/02/24 00:45 04/01/24 23:00 04/01/24 21:29 04/01/24 20:02 04/01/24 19:12 04/01/24 18:32 04/01/24 18:23 04/01/24 18:20 04/01/24 17:41 04/01/24 17:35 04/01/24 17:24 04/01/24 17:05 04/01/24 16:50 Intake and Output 04/02/24 04/02/24 04/02/24 06:59 14:59 22:59 Intake Total 1800 Balance 1800 Intake: Intake, IV Titration 600 Amount Sodium Chloride 0.9% 1, 600 000 ml @ 75 mls/hr IV . [id number] [facility] Rx#:[id number] Oral 1200 Other: Weight 82.554 kg GENERAL EXAM: 63-year-old female in no distress, on 4 L nasal cannula, O2 sats is 94% HEAD: Normocephalic and atraumatic EYES: Normal reaction of pupils, equal size. NOSE: Clear with pink turbinates. THROAT: No erythema or exudates. NECK: No masses, no JVD. CHEST: No chest wall deformity. LUNGS: Diminished breath sound bilaterally no crackles rhonchi or wheezes CVS: S1 and S2 normal with no audible murmur, regular rhythm. No extra heart sounds ABDOMEN: No hepatosplenomegaly, active bowel sounds, no guarding or rigidity. SKIN: No rashes CENTRAL NERVOUS SYSTEM: Alert oriented x 3 no gross focal deficit EXTREMITIES: There is no peripheral edema, clubbing, or cyanosis. Peripheral pulses are intact. Results - Laboratory Findings CBC and BMP: 04/01/24 16:55 04/01/24 16:55 PT/INR, D-dimer PT 10.5 sec (10.0-12.5) 04/01/24 16:55 INR 0.9 (<1.2) 04/01/24 16:55 Abnormal lab findings: Abnormal Labs 04/01/24 04/01/24 04/01/24 16:30 16:55 16:55 RBC 3.74 L BUN 23 H Creatinine 1.11 H Glucose 124 H POC Glucose (mg/dL) 165 H Total Bilirubin 0.1 L Triglycerides Ur Specific [place] Urine Protein 04/01/24 04/01/24 04/02/24 16:55 17:12 01:45 RBC BUN Creatinine Glucose POC Glucose (mg/dL) 124 H Total Bilirubin Triglycerides 156.00 H Ur Specific [place] 1.043 H Urine Protein Trace H - Diagnostic Findings Chest x-ray: image reviewed (As noted in HPI) Assessment and Plan Assessment: Impression: Right lower quadrant pain, resolved with negative physical exam findings and negative CT of the abdomen and pelvis to explain her right lower quadrant pain History of severe COPD presently in active, FEV1 in the is normal in the range of 25% History of chronic hypoxic and hypercapnic respiratory failure, utilizes BiPAP History of CO2 narcosis and metabolic encephalopathy Possible TIA Chronic ongoing tobacco dependence History of dyslipidemia History of coronary artery disease and multiple previous stents History of carotid artery stenosis status post left carotid stenting Hypothyroidism History of seizure disorder Recommendation: Patient has no active pulmonary symptoms Resume home medications Continue oxygen and use BiPAP as necessary Cardiology is addressing cardiac issues which seem to be stable General Surgery is addressing her abdominal pain which has resolved Neurology was consulted for TIA Will continue to follow Will clear the patient to be discharged home once she is cleared by other senior sales consultant Time with Patient: Greater than 30
--- NOTE | 2024-04-02 17:12 | P.CNNES ---
History of Present Illness Consult date: 04/02/24 Requesting physician: Whitney Peaccok Reason for Consult: tia History of Present Illness: This is a 63-year-old woman who present emergency department on 04/01/2024 for right lower quadrant abdominal pain. Neurology is consulted for left facial droop as well as decree sensation over the left hand. Patient is not a great historian since she was altered but she states she does have underlying history of neuropathy and she stated left hand numbness is old. Regarding the left facial droop she stated was the left corner of the mouth and she stated that it comes and goes. She does have underlying history of seizures and she stated that she follows up with Dr. Gallardo. It seems that she is on gabapentin and the Keppra. The gabapentin is likely for the neuropathy but does not have low antiseizure benefit. She is also on Keppra and it appears she is on Keppra 1 g twice daily. Upon seeing her she was on BiPAP. Patient states her last seizure was about 4 months ago. Of note I personally seen the patient last in our facility on 05/2022 and I felt the patient had breakthrough seizure. At that time patient was on Keppra 1500 mg twice daily as well as Vimpat 50 mg twice daily. Refer to my notes for further details. Had 2 EEGs in our facility and both were negative for any seizure or discharges Some of the workup during this hospital visit consisted of: Pulse ox was as low as 88% at room air. Sodium, calcium are within normal limits AST and ALT are within normal limits Initial serum glucose is 124 Lipid panel is triglyceride 156, cholesterol is 182, LDL is 108 and HDL is 42 CT head is reported as no acute intracranial process. I personally reviewed the CT and agree with the report CT Angiography head and neck is reported as severe atherosclerotic plaque at the origin of the major vessels of the aorta with motion and blooming artifact limiting evaluation for degree of stenosis. This is thought to be high-grade stenosis origin brachiocephalic trunk as well as left subclavian artery. Consi jonnie further evaluation with Diesel Motor Mechanic angiography. This vessels are thought to be patent. Otherwise no evidence of dissection the cervical internal carotid artery or vertebral artery. No any evidence of significant stenosis at the carotid bifurcation. No evidence of intracranial high-grade stenosis or intracranial aneurysm. The echo is reported as technically difficult study. Normal left ventricular size and systolic function. No evidence of shunting by contrast bubble study. Review of Systems As per HPI. 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 carotid blockage, PAD, vertigo at times. Last Myocardial Infarction Date:: 06/2022 History of Any Multi-Drug Resistant Organisms: None Reported Past Surgical History: Heart Catheterization, Heart Catheterization With Stent, Hysterectomy, Joint Replacement, Orthopedic Surgery Additional Past Surgical History / Comment(s): RT ROTATOR CUFF REPAIR, R total knee, CYSTS REMOVED FROM UNDER ARMS AND HANDS, arch studies, L caratid endarte ctomy, 4 cardiac stents, several peripheral stents, 07/18/18 left subclavian stent, arch studies. 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 Pt has never received blood. Date of Last Stent Placement:: Nov 2017 Past Psychological History: Anxiety, Depression Smoking Status: Current every day smoker, Light tobacco smoker Past Alcohol Use History: None Reported Past Drug Use History: None Reported, Marijuana - Past Family History Mother Family Medical History: Cancer Sister(s) Family Medical History: Cancer Medications and Allergies Home Medications Medication Instructions Recorded Confirmed Type Escitalopram [Lexapro] 20 mg PO DAILY 11/28/17 04/01/24 History Levothyroxine Sodium 200 mcg PO DAILY 08/20/20 04/01/24 History Doxepin [SINEquan] 10 mg PO HS 02/25/22 04/01/24 History cloNIDine HCL [Catapres] 0.2 mg PO HS 02/03/23 04/01/24 History levETIRAcetam [Keppra] 1,000 mg PO BID 02/03/23 04/01/24 History Gabapentin 800 mg PO BID 04/09/23 04/01/24 History oxyCODONE HCL/ACETAMINOPHEN 2 tab PO Q6H 11/24/23 04/01/24 History [oxyCODONE HCL/ACETAMINOPHEN 5-325] Fluticasone/Umeclidin/Vilanter 1 puff INHALATION RT-DAILY 11/25/23 04/01/24 History [Trelegy Ellipta 200-62.5-25] Midodrine [ProAmatine] 5 mg PO AC-BID #30 tab 12/09/23 04/01/24 Rx Albuterol Inhaler [Ventolin Hfa 2 puff INHALATION RT-Q4H PRN 04/01/24 04/01/24 History Inhaler] Allergies Allergy/AdvReac Type Severity Reaction Status Date / Time No Known Allergies Allergy Verified 04/01/24 17:20 Physical Examination - Vital Signs Vital Signs: Vital Signs Temp Pulse Pulse Resp BP BP Pulse Ox 04/02/24 15:42 84 04/02/24 15:33 94 L 04/02/24 15:30 80 04/02/24 14:00 70 22 04/02/24 12:00 98.0 F 70 18 91/70 94 L 04/02/24 11:43 85 04/02/24 11:36 04/02/24 11:34 76 04/02/24 09:41 04/02/24 09:27 04/02/24 08:31 77 04/02/24 08:23 94 L 04/02/24 08:21 85 04/02/24 08:00 98.0 F 77 22 93/58 04/02/24 06:00 77 18 53/34 93 L 04/02/24 05:19 78 19 53/34 92 L 04/02/24 01:04 90 18 75/50 93 L 04/02/24 00:45 87 18 64/35 95 04/01/24 23:00 92 18 76/38 04/01/24 21:29 98 19 81/44 93 L 04/01/24 20:02 101 H 18 89/51 93 L 04/01/24 19:12 94 16 103/51 93 L 04/01/24 18:32 95 04/01/24 18:23 93 04/01/24 18:20 97.9 F 93 14 92/63 94 L 04/01/24 17:41 93 L 04/01/24 17:35 98.0 F 92 16 92/63 94 L 04/01/24 17:24 97.9 F 97 16 79/40 88 L 04/01/24 17:05 98.0 F 96 14 86/56 98 FiO2 04/02/24 15:42 04/02/24 15:33 04/02/24 15:30 04/02/24 14:00 04/02/24 12:00 04/02/24 11:43 04/02/24 11:36 30 04/02/24 11:34 04/02/24 09:41 30 04/02/24 09:27 30 04/02/24 08:31 04/02/24 08:23 04/02/24 08:21 04/02/24 08:00 04/02/24 06:00 04/02/24 05:19 04/02/24 01:04 04/02/24 00:45 04/01/24 23:00 04/01/24 21:29 04/01/24 20:02 04/01/24 19:12 04/01/24 18:32 04/01/24 18:23 04/01/24 18:20 04/01/24 17:41 04/01/24 17:35 04/01/24 17:24 04/01/24 17:05 Intake and Output 04/02/24 04/02/24 04/02/24 06:59 14:59 22:59 Intake Total 1800 Balance 1800 Intake: Intake, IV Titration 600 Amount Sodium Chloride 0.9% 1, 600 000 ml @ 75 mls/hr IV . [id number] Rx#:[id number] Oral 1200 Other: Weight 82.554 kg General: The patient is lying in bed and is not in acute distress Lung patient is on BiPAP Neuro: Somewhat limited because of patient drowsiness. BiPAP was removed by respiratory therapist for neurological examination. Patient is drowsy but is awake able to voice. Is oriented to self place and time. Is following simple commands. No aphasia. The pupils are round equal reactive to light. Visual pierson are full to confrontation. Extraocular movements intact no nystagmus. No facial weakness. No dysarthria Motor strength is uppers are 5 out of 5. Right lower is 5 out of 5. Left has has a leg brace. Results - Laboratory Findings CBC and BMP: 04/01/24 16:55 04/01/24 16:55 Abnormal Lab Findings: Abnormal Labs 04/01/24 04/01/24 04/01/24 16:30 16:55 16:55 RBC 3.74 L BUN 23 H Creatinine 1.11 H Glucose 124 H POC Glucose (mg/dL) 165 H Total Bilirubin 0.1 L Triglycerides Ur Specific [place] Urine Protein 04/01/24 04/01/24 04/02/24 16:55 17:12 01:45 RBC BUN Creatinine Glucose POC Glucose (mg/dL) 124 H Total Bilirubin Triglycerides 156.00 H Ur Specific [place] 1.043 H Urine Protein Trace H Assessment and Plan Assessment: This is a 63-year-old woman with history of multiple medical issues who presents emergency department because of abdominal pain while in the ED she had left facial droop and she stated that intermittent and there is a concern for numbn ess in the hand but she stated that is old. She does have underlying history of seizure. Recent left facial droop with history of Intermittent facial droop for the past couple month: Rule out due to underlying seizure vs due to hypoxia. In the past patient was on Keppra 1500 mg twice daily as well as Vimpat upon seeing her last on May 2022 but currently it seems that she is only on Keppra Altered mental status and seems due to hypoxic encephalopathy and metabolic encephalopathy Abdominal pain Hypoxia and patient is on BiPAP Severe atherosclerotic plaque on CT angiography head and neck and seen on the brachiocephalic trunk, left subclavian artery History of subclavian stent as well as left common carotid stent Underlying history of neuropathy Underlying history of B12 deficiency Underlying history of memory loss History of COPD History of hypothyroidism History of hyperlipidemia History of tobacco use and the patient quit in November 2023 Plan: Regarding patient atherosclerotic changes seen on the CT angiography initially I consulted vascular surgery but it seems the patient is known to Dr. Evans to cardiology is consulted and they recommended to follow-up with Dr. Evans within 1 week after discharge I ordered routine EEG any underlying Epifoam discharge or seizures Patient is on Keppra 1 g twice daily and I ordered Keppra level MRI of the brain and cervical to rule out any acute or subacute stroke vs severe cervical stenosis/myelopathy since has numbness on left side. Pulmonary team is consulted Will defer the rest of the medical management to primary and other specialist Upon discharge recommend the patient to follow-up with her neurologist Dr. Gallardo within 2 to 3 weeks as an outpatient. Thank you for the consultation Time with Patient: Greater than 30
[2024-04-03 08:05] LABS: HCT 35.2 % (34.0-46.0); HGB 10.8 gm/dL (11.4-16.0); Hypochromasia Marked; MCHC 30.7 g/dL (31.0-37.0); Macrocytosis Slight; Platelet Count 272 k/uL (150-450); RBC 3.48 m/uL (3.80-5.40); RDW 14.3 % (11.5-15.5); WBC 5.2 k/uL (3.8-10.6)
--- NOTE | 2024-04-03 08:39 | P.PN ---
Subjective Progress Note Date: 04/03/24 This is a 63-year-old female with a past medical history of COPD, chronic hypotension and CAD who presented to the emergency department yesterday afternoon with right lower quadrant abdominal pain. Patient has had issues with the same pain last month in which CT showed a dilated biliary duct. She was rep ortedly scheduled to have an MRCP on April 11. When patient arrived in the emergency department she was noted to have a left facial droop and a code stroke was called. Patient denies any numbness or weakness, reports occasional slurred speech. Patient seen this morning sitting up on stretcher in the emergency room. Patient still has somewhat of a left-sided facial droop but reports her symptoms have resolved. Her strength is equal bilaterally. She is still reporting right lower quadrant abdominal pain. Dr. Shaffer has been consulted as well as neurology. 04/03/2024 Patient seen this morning sitting up in bed with daughter at bedside. General surgery has cleared her, and not planning for any intervention. Patient seen and evaluated by cardiology and pulmonary who have not recommended anything further. Patient seen and evaluated by neurology yesterday who have ordered an MRI for today and an EEG. Daughter says patient is still confused. It is noted patient did not want to keep BiPAP on through the night. Objective - Vital Signs Vital signs: Vital Signs Temp 98.7 F 04/03/24 04:00 Pulse 84 04/03/24 08:14 Resp 20 04/03/24 04:00 BP 88/54 04/03/24 04:00 Pulse Ox 89 L 04/03/24 04:00 FiO2 30 04/02/24 23:22 Intake & Output 04/02/24 04/03/24 04/03/24 18:59 06:59 18:59 Intake Total 1800 Balance 1800 Weight 84.1 kg Intake: Intake, IV Titration 600 Amount Sodium Chloride 0.9% 1, 600 000 ml @ 75 mls/hr IV . [id number] [facility] Rx#:[id number] Oral 1200 Other: Voiding Method Bedside Commode # Voids 1 - Constitutional General appearance: Present: cooperative, no acute distress - EENT Eyes: Present: PERRLA - Neck Neck: Present: normal ROM. Absent: lymphadenopathy, rigidity - Respiratory Respiratory: bilateral: diminished - Cardiovascular Rhythm: regular Heart sounds: normal: S1, S2 - Gastrointestinal General gastrointestinal: Present: soft. Absent: tenderness - Integumentary Integumentary: Present: normal, normal turgor - Musculoskeletal Musculoskeletal: Present: generalized weakness - Psychiatric Psychiatric Comment(s): Alert to person and place - Labs CBC & Chem 7: 04/03/24 07:16 04/01/24 16:55 Labs: Abnormal Lab Results - Last 24 Hours (Table) 04/01/24 04/03/24 Range/Units 16:55 07:16 RBC 3.48 L (3.80-5.40) m/uL Hgb 10.8 L (11.4-16.0) gm/dL MCV 101.0 H (80.0-100.0) fL MCHC 30.7 L (31.0-37.0) g/dL Triglycerides 156.00 H (0.00-149.00) mg/dL Assessment and Plan (1) Abdominal pain Current Visit: No Status: Acute Code(s): R10.9 - UNSPECIFIED ABDOMINAL PAIN SNOMED Code(s): 52438798 (2) CAD (coronary artery disease) Current Visit: No Status: Acute Code(s): I25.10 - ATHSCL HEART DISEASE OF [place] CORONARY ARTERY W/O ANG PCTRS SNOMED Code(s): 06997597 (3) COPD (chronic obstructive pulmonary disease) Current Visit: No Status: Acute Code(s): J44.9 - CHRONIC OBSTRUCTIVE PULMONARY DISEASE, UNSPECIFIED SNOMED Code(s): 88263251 (4) Chronic hypotension Current Visit: No Status: Acute Code(s): I95.89 - OTHER HYPOTENSION SNOMED Code(s): 34828648 (5) Dilated bile duct Current Visit: No Status: Acute Code(s): K83.8 - OTHER SPECIFIED DISEASES OF BILIARY TRACT SNOMED Code(s): 005702588 (6) Hypothyroid Current Visit: No Status: Acute Code(s): E03.9 - HYPOTHYROIDISM, UNSPECIFIED SNOMED Code(s): 68778148 (7) Opiate dependence Current Visit: No Status: Acute Code(s): F11.20 - OPIOID DEPENDENCE, UNCOMPLICATED SNOMED Code(s): 15657867 (8) Tobacco abuse Current Visit: No Status: Acute Code(s): Z72.0 - TOBACCO USE SNOMED Code(s): 748932223 Plan: Await MRI and EEG. Check CBC and CMP in the morning. Appreciate multiple consultants recommendations. Patient seen and evaluated by nurse practitioner, physician in agreement with plan.
[2024-04-03 08:47] LABS: ALT 8 U/L (4-34); AST 16 U/L (14-36); African American GFR (CKD) 82 (>60 ml/min/1.73 sqM); Albumin 3.6 g/dL (3.5-5.0); Alkaline Phosphatase 98 U/L (38-126); Anion Gap 6 mmol/L; Blood Urea Nitrogen 21 mg/dL (7-17); Calcium 9.5 mg/dL (8.4-10.2); Carbon Dioxide 20 mmol/L (22-30); Chloride 112 mmol/L (98-107); Glucose 129 mg/dL (74-99); Non-African American GFR(CKD) 71 (>60 ml/min/1.73 sqM); Potassium 5.9 mmol/L (3.5-5.1); Sodium 138 mmol/L (137-145); Total Bilirubin <0.1 mg/dL (0.2-1.3)
[2024-04-03] MEDS: FAMOTIDINE 20 MG TAB PO SCH (09:16)
[2024-04-03] MEDS: methylPREDNISolone 4 MG TAB TAPER PO SCH (12:06)
--- NOTE | 2024-04-03 13:22 | P.PN ---
Subjective Progress Note Date: 04/03/24 Principal diagnosis: Abdominal pain possible TIA Family are to our service, known history of multiple medical problems including chronic hypoxic respiratory failure, COPD, hypertension, coronary artery disease, seizure disorder, patient is on home oxygen, she is also on BiPAP at home, brought into the ER with 1 day history of right-sided abdominal pain. While in triage, she was also noted to have some facial drooping, CT of the brain came back negative CT abdomen pelvis came back negative except for enlarged appendix. Patient had relatively normal WBC count, as far as her abdominal pain, patient was seen by surgery and at that time she was seen by Dr. Rutledge, she had no abdominal findings and no abdominal pain. Previously the patient had dilated biliary duct, and she was supposedly scheduled for MRCP on April 11. The left facial droop, patient was admitted, and because of her underlying COPD, this consult was initiated. During my evaluation, the patient had no shortness of breath no cough no wheezing she actually had no active pulmonary issues whatsoever. WBC count 8.5 hemoglobin 11.9 basic metabolic profile is normal renal profile is normal.Chest x-ray showed no evidence of any acute cardiopulmonary process Patient was evaluated today on 04/03/2024, patient is doing well today, relatively asymptomatic, her pain has resolved, seen by neurology, MRI and EEG ordered for today and these are pending patient does not seem to be compliant with BiPAP at night, but she is on nasal cannula, and does not seem to be in any distress although on physical examination she did sound bronchospastic and I recommended a Medrol Dosepak.WBC count is 5.2 hemoglobin is 10.8 potassium is 5.9, being addressed by admitting physician BUN is 21 creatinine 0.87 Objective - Vital Signs Vital signs: Vital Signs Temp 97.7 F 04/03/24 08:00 Pulse 92 04/03/24 11:46 Resp 18 04/03/24 08:00 BP 96/57 04/03/24 08:00 Pulse Ox 95 04/03/24 08:00 FiO2 30 04/02/24 23:22 Intake & Output 04/02/24 04/03/24 04/03/24 18:59 06:59 18:59 Intake Total 1800 Balance 1800 Weight 84.1 kg Intake: Intake, IV Titration 600 Amount Sodium Chloride 0.9% 1, 600 000 ml @ 75 mls/hr IV . [id number] [facility] Rx#:[id number] Oral 1200 Other: Voiding Method Bedside Commode # Voids 1 - Exam GENERAL EXAM: 63-year-old female in no distress, on 3 L nasal cannula, O2 sats is 94% HEAD: Normocephalic and atraumatic EYES: Normal reaction of pupils, equal size. NOSE: Clear with pink turbinates. THROAT: No erythema or exudates. NECK: No masses, no JVD. CHEST: No chest wall deformity. LUNGS: Diminished breath sound bilaterally wheezing bilaterally on forced expiratory maneuver CVS: S1 and S2 normal with no audible murmur, regular rhythm. No extra heart sounds ABDOMEN: No hepatosplenomegaly, active bowel sounds, no guarding or rigidity. SKIN: No rashes CENTRAL NERVOUS SYSTEM: Alert oriented x 3 no gross focal deficit EXTREMITIES: There is no peripheral edema, clubbing, or cyanosis. Peripheral pulses are intact. - Labs CBC & Chem 7: 04/03/24 07:16 04/03/24 07:16 Labs: Abnormal Lab Results - Last 24 Hours (Table) 04/03/24 04/03/24 Range/Units 07:16 07:16 RBC 3.48 L (3.80-5.40) m/uL Hgb 10.8 L (11.4-16.0) gm/dL MCV 101.0 H (80.0-100.0) fL MCHC 30.7 L (31.0-37.0) g/dL Potassium 5.9 H (3.5-5.1) mmol/L Chloride 112 H (98-107) mmol/L Carbon Dioxide 20 L (22-30) mmol/L BUN 21 H (7-17) mg/dL Glucose 129 H (74-99) mg/dL Total Bilirubin <0.1 L (0.2-1.3) mg/dL Total Protein 6.0 L (6.3-8.2) g/dL Assessment and Plan Assessment: Impression: Right lower quadrant pain, resolved with negative physical exam findings and negative CT of the abdomen and pelvis to explain her right lower quadrant pain History of severe COPD presently in active, FEV1 in the is normal in the range of 25% History of chronic hypoxic and hypercapnic respiratory failure, utilizes BiPAP History of CO2 narcosis and metabolic encephalopathy Possible TIA Chronic ongoing tobacco dependence History of dyslipidemia History of coronary artery disease and multiple previous stents History of carotid artery stenosis status post left carotid stenting Hypothyroidism History of seizure disorder Recommendation: Patient has no active pulmonary symptoms, although the patient does have history of severe underlying COPD and chronic hypoxic respiratory failure Resume home medications, added Medrol Dosepak for her wheezing today. Continue oxygen and use BiPAP as necessary, patient was not compliant with BiPAP last night Cardiology is addressing cardiac issues which seem to be stable General Surgery is addressing her abdominal pain which has resolved Neurology ordered EEG and MRI of the brain / pending Will continue to follow Will clear the patient to be discharged home once she is cleared by other water resource consultant Time with Patient: Less than 30
--- NOTE | 2024-04-03 15:52 | P.PN ---
Subjective Progress Note Date: 04/03/24 Follow-up with the patient the patient feels drastically better today compared to yesterday. She feels more awake and responsive. She states that she wants her pain medication adjusted. Objective - Vital Signs Vital signs: Vital Signs Temp 97.7 F 04/03/24 08:00 Pulse 92 04/03/24 11:46 Resp 18 04/03/24 08:00 BP 96/57 04/03/24 08:00 Pulse Ox 95 04/03/24 08:00 FiO2 30 04/02/24 23:22 Intake & Output 04/02/24 04/03/24 04/03/24 18:59 06:59 18:59 Intake Total 1800 Balance 1800 Weight 84.1 kg Intake: Intake, IV Titration 600 Amount Sodium Chloride 0.9% 1, 600 000 ml @ 75 mls/hr IV . [id number] [facility] Rx#:[id number] Oral 1200 Other: Voiding Method Bedside Commode # Voids 1 - Exam General: Patient sitting on the side of the bed and is more responsive today and is not in acute distress Neuro: As stated earlier patient is more awake today and more responsive. Patient is oriented x 3. Is following simple commands. No aphasia No facial weakness. No dysarthria Motor strength is uppers are 5 out of 5. Right lower is 5 out of 5. Left has has a leg brace but is able to lift above gravity Some of the workup during this hospital visit consisted of: Pulse ox was as low as 88% at room air. Sodium, calcium are within normal limits AST and ALT are within normal limits Initial serum glucose is 124 Levetiracetam: 36.3 Lipid panel is triglyceride 156, cholesterol is 182, LDL is 108 and HDL is 42 CT head is reported as no acute intracranial process. I personally reviewed the CT and agree with the report CT Angiography head and neck is reported as severe atherosclerotic plaque at the origin of the major vessels of the aorta with motion and blooming artifact limiting evaluation for degree of stenosis. This is thought to be high-grade stenosis origin brachiocephalic trunk as well as left subclavian artery. Consider further evaluation with Associate Music Professor angiography. This vessels are thought to be patent. Otherwise no evidence of dissection the cervical internal carotid artery or vertebral artery. No any evidence of significant stenosis at the carotid bifurcation. No evidence of intracranial high-grade stenosis or intracranial aneurysm. 2D echo is reported as technically difficult study. Normal left ventricular size and systolic function. No evidence of shunting by contrast bubble study. - Labs CBC & Chem 7: 04/03/24 07:16 04/03/24 07:16 Labs: Abnormal Lab Results - Last 24 Hours (Table) 04/03/24 04/03/24 Range/Units 07:16 07:16 RBC 3.48 L (3.80-5.40) m/uL Hgb 10.8 L (11.4-16.0) gm/dL MCV 101.0 H (80.0-100.0) fL MCHC 30.7 L (31.0-37.0) g/dL Potassium 5.9 H (3.5-5.1) mmol/L Chloride 112 H (98-107) mmol/L Carbon Dioxide 20 L (22-30) mmol/L BUN 21 H (7-17) mg/dL Glucose 129 H (74-99) mg/dL Total Bilirubin <0.1 L (0.2-1.3) mg/dL Total Protein 6.0 L (6.3-8.2) g/dL Assessment and Plan Assessment: This is a 63-year-old woman with history of multiple medical issues who presents emergency department because of abdominal pain while in the ED she had left facial droop and she stated that intermittent and there is a concern for numbness in the hand but she stated that is old. She does have underlying history of seizure. Recent left facial droop with history of Intermittent facial droop for the past couple month: Rule out due to underlying seizure vs due to hypoxia. In the past patient was on Keppra 1500 mg twice daily as well as Vimpat upon seeing her last on May 2022 but currently it seems that she is only on Keppra Altered mental status and seems due to hypoxic encephalopathy and metabolic encephalopathy Abdominal pain Hypoxia and patient is on BiPAP Severe atherosclerotic plaque on CT angiography head and neck and seen on the brachiocephalic trunk, left subclavian artery History of subclavian stent as well as left common carotid stent Underlying history of neuropathy Underlying history of B12 deficiency Underlying history of memory loss History of COPD History of hypothyroidism History of hyperlipidemia History of tobacco use and the patient quit in November 2023 Plan: Regarding patient atherosclerotic changes seen on the CT angiography initially I consulted vascular surgery but it seems the patient is known to Dr. Evans to [facility] rdiology is consulted and they recommended to follow-up with Dr. Evans within 1 week after discharge Pending EEG. Patient is on Keppra 1 g twice daily and I ordered Keppra level MRI of the brain and cervical to rule out any acute or subacute stroke vs severe cervical stenosis/myelopathy since has numbness on left side. Pulmonary team is consulted Will defer the rest of the medical management to primary and other specialist Upon discharge recommend the patient to follow-up with her neurologist Dr. Gallardo within 2 to 3 weeks as an outpatient. Time with Patient: Less than 30
--- NOTE | 2024-04-03 16:05 | MR ---
EXAMINATION TYPE: MR brain/cspine wo DATE OF EXAM: 04/03/2024 3:59 PM COMPARISON: 08/17/2022 CLINICAL INDICATION: Female, 63 years old with history of facial droop and numbness hand, facial droo p and hand numbness TECHNIQUE: Multiplanar, multiecho imaging on a 3.0 Bruna magnet is performed through the brain. Stud y is performed within 24 hours of arrival to the hospital.Multiplanar, multiecho imaging on a 3.0 Rachel la magnet is performed through the knee. IV Contrast: mL (None, if empty) FINDINGS: The craniovertebral junction is normal. The pituitary is normal. Diffusion-weighted imaging is performed. There may be a small hyperintensity within the inferior lat eral right cerebellum. Correlate for acute lacunar infarct. Tiny cortical white matter changes in the right occipital cortex. Series 303 image 160. Tiny cortical infarction be considered. There are [place] hyperintensities within the right frontal lobe, image 184 There are some white matter changes within the brainstem. Periventricular white matter hyperintensity on T2 and inversion recovery weighted sequences is present. Findings are nonspecific but can be rela ilan to chronic white matter ischemic changes Ventricles and sulci are prominent for the patient age. IMPRESSION: 1. Hyperintensity on diffusion within the right cerebellum, posterior right occipital lobe cortex, in to punctate areas within the right frontal lobe suspicious for tiny acute ischemic changes. 2. Chronic appearing periventricular white matter ischemic changes are present EXAMINATION TYPE: MR brain/cspine wo DATE OF EXAM: 04/03/2024 3:59 PM COMPARISON: None. CLINICAL INDICATION: Female, 63 years old with history of facial droop and numbness hand, facial droo p and hand numbness TECHNIQUE: Multiplanar multiecho imaging on a 3.0 Bruna magnet is performed through the cervical spin e. IV Contrast: mL (None, if empty) FINDINGS: The craniovertebral junction is normal. Vertebral body alignment is normal. C7-T1: No focal disc herniation or significant disc bulge is evident. No spinal canal stenosis or n eural foraminal stenosis is present. C6-7: Minimal disc bulge is present with anterior thecal sac contact. This comes in close approximati on with the spinal cord. No AP spinal canal stenosis or neural foraminal stenosis is present. C5-6: No focal disc herniation or significant disc bulge is evident. No spinal canal stenosis or dayanara ral foraminal stenosis is present. C4-5: No focal disc herniation or significant disc bulge is evident. No spinal canal stenosis or dayanara ral foraminal stenosis is present. C3-4: Small central bulge is present with mild anterior thecal sac contact. No cord contact is eviden t. No spinal canal stenosis or neural foraminal stenosis is present. C2-3: No focal disc herniation or significant disc bulge is evident. No spinal canal stenosis or dayanara ral foraminal stenosis is present. IMPRESSION: 1. Minimal disc bulge C6-7 with anterior thecal sac impression. No stenosis or cord contact. 2. Small broad central disc bulge C3-4 without cord contact or spinal canal stenosis. [facility], , 04/03/2024 4:02 PM
--- NOTE | 2024-04-03 22:30 | EEG ---
ELECTROENCEPHALOGRAM REPORT CLINICAL HISTORY: This is a 63-year-old woman with history of seizure with intermittent left facial droop. The video EEG is obtained to evaluate for seizure epileptiform activity. RELEVANT MEDICATIONS: Keppra. EEG TYPE: This is a routine 21-channel EEG with video using the 10/20 electrode placement system. DESCRIPTION: Wakefulness is only obtained. During awake state, the posterior-dominant rhythm consists of [id number]-[id number] voltage of 6.5 to 7 hertz activity that is well modulated and well sustained. There is no physiological stage 2 sleep architecture. There is no focal slowing. Interictal and ictal is none. ACTIVATION PROCEDURE: Photic stimulation did not evoke a posterior driving response. There is no abnormality during the photic stimulation. Hyperventilation is not performed. CLINICAL INTERPRETATION: This is an abnormal routine EEG. The background slowing is suggestive of mild to moderate encephalopathy. Otherwise, there is no focal slowing, epileptiform discharge, or seizure on the EEG. Clinical correlation is recommended. PILI / GÉNESISN: [id number] /
[2024-04-04 06:40] LABS: HCT 30.9 % (34.0-46.0); Hypochromasia Slight; MCH 31.8 pg (25.0-35.0); MCHC 32.2 g/dL (31.0-37.0); MCV 98.7 fL (80.0-100.0); Mean Platelet Volume 7.4; Platelet Count 272 k/uL (150-450); Poikilocytosis Slight; RBC 3.14 m/uL (3.80-5.40); RDW 14.6 % (11.5-15.5); WBC 8.7 k/uL (3.8-10.6)
[2024-04-04 06:59] LABS: ALT 8 U/L (4-34); AST 14 U/L (14-36); African American GFR (CKD) 74 (>60 ml/min/1.73 sqM); Albumin 3.4 g/dL (3.5-5.0); Alkaline Phosphatase 94 U/L (38-126); Anion Gap 8 mmol/L; Blood Urea Nitrogen 22 mg/dL (7-17); Calcium 8.8 mg/dL (8.4-10.2); Carbon Dioxide 22 mmol/L (22-30); Chloride 108 mmol/L (98-107); Glucose 124 mg/dL (74-99); Non-African American GFR(CKD) 64 (>60 ml/min/1.73 sqM); Potassium 4.2 mmol/L (3.5-5.1); Sodium 138 mmol/L (137-145); Total Bilirubin <0.1 mg/dL (0.2-1.3); Total Protein 5.8 g/dL (6.3-8.2)
--- NOTE | 2024-04-04 08:26 | P.DS ---
Providers Date of admission: 04/01/24 20:08 Attending physician: Jose F Mcwilliams Consults: 04/01/24 20:08 Consult Physician Routine Consulting Provider: Wendie King Consult Reason/Comments: TIA Do you want consulting provider notified?: Yes, Notify in am 04/02/24 09:25 Consult Physician Routine Consulting Provider: Sandeep Thurman Consult Reason/Comments: stage 4 COPD Do you want consulting provider notified?: Already Contacted Primary care physician: Jose F Mcwilliams Hospital Course: This discharge summary 63-year-old white female with history of opiate dependence COPD requiring BiPAP and complaint of left facial droop and left hand numbness. The patient was essentially worked up for TIA. Essential testing and neurology has cleared the patient with outpatient treatment. The patient is back to baseline and feeling drastically improved since admission. She will be discharged home on her home dose of escitalopram and to follow-up with me in about 1 week. The patient seems to be tolerating diet no voiding difficulties ambulating without significant difficulty. Patient Condition at Discharge: Stable Plan - Discharge Summary Discharge Rx Participant: Yes New Discharge Prescriptions: New Escitalopram [Lexapro] 40 mg PO DAILY #180 tab methylPREDNISolone Dose Pack [Medrol Dose Pack] 24 mg PO DAILY #1 pack Continue Escitalopram [Lexapro] 20 mg PO DAILY Doxepin [SINEquan] 10 mg PO HS levETIRAcetam [Keppra] 1,000 mg PO BID Gabapentin 800 mg PO BID oxyCODONE HCL/ACETAMINOPHEN [oxyCODONE HCL/ACETAMINOPHEN 5-325] 2 tab PO Q6H Fluticasone/Umeclidin/Vilanter [Trelegy Ellipta 200-62.5-25] 1 puff INHALATION RT-DAILY Midodrine [ProAmatine] 5 mg PO AC-BID #30 tab Levothyroxine Sodium 200 mcg PO DAILY cloNIDine HCL [Catapres] 0.2 mg PO HS Albuterol Inhaler [Ventolin Hfa Inhaler] 2 puff INHALATION RT-Q4H PRN PRN Reason: Shortness Of Breath Discharge Medication List Escitalopram [Lexapro] 20 mg PO DAILY 11/28/17 [History] Levothyroxine Sodium 200 mcg PO DAILY 08/20/20 [History] Doxepin [SINEquan] 10 mg PO HS 02/25/22 [History] cloNIDine HCL [Catapres] 0.2 mg PO HS 02/03/23 [History] levETIRAcetam [Keppra] 1,000 mg PO BID 02/03/23 [History] Gabapentin 800 mg PO BID 04/09/23 [History] oxyCODONE HCL/ACETAMINOPHEN [oxyCODONE HCL/ACETAMINOPHEN 5-325] 2 tab PO Q6H 11/24/23 [History] Fluticasone/Umeclidin/Vilanter [Trelegy Ellipta 200-62.5-25] 1 puff INHALATION RT-DAILY 11/25/23 [History] Midodrine [ProAmatine] 5 mg PO AC-BID #30 tab 12/09/23 [Rx] Albuterol Inhaler [Ventolin Hfa Inhaler] 2 puff INHALATION RT-Q4H PRN 04/01/24 [History] Escitalopram [Lexapro] 40 mg PO DAILY #180 tab 04/04/24 [Rx] methylPREDNISolone Dose Pack [Medrol Dose Pack] 24 mg PO DAILY #1 pack 04/04/24 [Rx] Follow up Appointment(s)/Referral(s): Jose F Mcwilliams MD [Primary Care Provider] - 1-2 days
[2024-04-04] MEDS ORDERED: MIDAZOLAM 2 MG/2 ML VIAL IV PRN (11:38)
[2024-04-04] MEDS ORDERED: fentaNYL (PF) 50 MCG/ML 5 ML AMP IVP PRN (11:38)
[2024-04-04] MEDS ORDERED: BENZOCAINE SPRAY 1 CAN TOPICAL PRN (11:38)
[2024-04-04] MEDS: ASPIRIN 81 MG PO SCH (12:29)
--- NOTE | 2024-04-04 14:08 | P.PN ---
Subjective Progress Note Date: 04/04/24 I am following up with the patient and she feels she is doing better. Denies any new neurological issues. On the MRI of the brain there seems to be some suspicious area of stroke. There was a discharge order primary team. Objective - Vital Signs Vital signs: Vital Signs Temp 98.0 F 04/04/24 08:00 Pulse 85 04/04/24 12:00 Resp 18 04/04/24 12:00 BP 123/69 04/04/24 12:00 Pulse Ox 88 L 04/04/24 12:00 FiO2 30 04/02/24 23:22 Intake & Output 04/03/24 04/04/24 04/04/24 18:59 06:59 18:59 Intake Total 360 236 Balance 360 236 Weight 83.9 kg Intake: Oral 360 236 Other: Voiding Method Toilet Bedside Commode # Voids 2 2 - Exam General: Patient sitting on the side of the bed and is more responsive today and is not in acute distress Neuro: As stated earlier patient is more awake today and more responsive. Patient is oriented x 3. Is following simple commands. No aphasia No facial weakness. No dysarthria Motor strength is uppers are 5 out of 5. Right lower is 5 out of 5. Left has has a leg brace but is able to lift above gravity Some of the workup during this hospital visit consisted of: Pulse ox was as low as 88% at room air. Sodium, calcium are within normal limits AST and ALT are within normal limits Initial serum glucose is 124 Levetiracetam: 36.3 Lipid panel is triglyceride 156, cholesterol is 182, LDL is 108 and HDL is 42 CT head is reported as no acute intracranial process. I personally reviewed the CT and agree with the report CT Angiography head and neck is reported as severe atherosclerotic plaque at the origin of the major vessels of the aorta with motion and blooming artifact limiting evaluation for degree of stenosis. This is thought to be high-grade stenosis origin brachiocephalic trunk as well as left subclavian artery. Consider further evaluation with Marketing Designer angiography. This vessels are thought to be patent. Otherwise no evidence of dissection the cervical internal carotid artery or vertebral artery. No any evidence of significant stenosis at the carotid bifurcation. No evidence of intracranial high-grade stenosis or intracranial aneurysm. 2D echo is reported as technically difficult study. Normal left ventricular size and systolic function. No evidence of shunting by contrast bubble study. MRI of the brain is reported as hyperintensity on diffusion within the right cer ebellum, posterior right occipital cortex into the punctate area within the right frontal lobe suspicious for tiny acute ischemic changes. I personally reviewed the MRI and I feel the patient had embolic stroke MRI of the cervical spine is reported as minimal disc bulge C6-C7 with anterior thecal sac impression. No stenosis or cord contact. Small broad central disc bulge C3-4 without cord contact or spinal canal stenosis. Routine EEG: Is abnormal. The background slowing is suggestive of mild to moderate encephalopathy. Otherwise no focal slowing, OptiForm discharge or seizure on the EEG. - Labs CBC & Chem 7: 04/04/24 06:09 04/04/24 06:09 Labs: Abnormal Lab Results - Last 24 Hours (Table) 04/04/24 04/04/24 Range/Units 06:09 06:09 RBC 3.14 L (3.80-5.40) m/uL Hgb 10.0 L (11.4-16.0) gm/dL Hct 30.9 L (34.0-46.0) % Chloride 108 H (98-107) mmol/L BUN 22 H (7-17) mg/dL Glucose 124 H (74-99) mg/dL Total Bilirubin <0.1 L (0.2-1.3) mg/dL Total Protein 5.8 L (6.3-8.2) g/dL Albumin 3.4 L (3.5-5.0) g/dL Assessment and Plan Assessment: This is a 63-year-old woman with history of multiple medical issues who presents emergency department because of abdominal pain while in the ED she had left facial droop and she stated that intermittent and there is a concern for numbness in the hand but she stated that is old. She does have underlying history of seizure. Recent left facial droop with history of Intermittent facial droop for the past couple month: On current CT patient has acute stroke that seems embolic in nature over the right hemisphere. Severe atherosclerotic plaque on CT angiography head and neck and seen on the brachiocephalic trunk, left subclavian artery History of seizure and patient is on Keppra. In the past patient was on Keppra 1500 mg twice daily as well as Vimpat upon seeing her last on May 2022 but currently it seems that she is only on Keppra Altered mental status and seems due to hypoxic encephalopathy and metabolic encephalopathy--improved Abdominal pain Hypoxia and patient is on BiPAP History of subclavian stent as well as left common carotid stent Underlying history of neuropathy Underlying history of B12 deficiency Underlying history of memory loss History of COPD History of hypothyroidism History of hyperlipidemia History of tobacco use and the patient quit in November 2023 Plan: Regarding patient atherosclerotic changes seen on the CT angiography initially I consulted vascular surgery but it seems the patient is known to Dr. Evans to cardiology is consulted and they recommended to follow-up with Dr. Evans within 1 week after discharge Patient stated that she was on aspirin 81 mg prior to this hospital visit and she was taking on a daily basis. She stated that she was on Plavix in the past but was stopped about 3 to 4 years ago by her ophthalmic aide Dr. Evans. In addition to the aspirin 81 mg I also started her on Plavix 75 mg daily. Starting the long-term use of dual antiplatelet the patient has atherosclerotic changes and I recommend the patient to follow-up with her ophthalmic aide regarding the long-term use. I also started her on Lipitor 40 mg nightly. Patient is on Keppra 1 g twice daily Because of the stroke and it appears embolic I recommend a transesophageal echo cardiogram. I also recommend 30-day event monitor. Continue neurochecks Cardiac monitoring PT OT and OR DIRECTOR are consulted Pulmonary team is consulted Will defer the rest of the medical management to primary and other specialist Upon discharge recommend the patient to follow-up with her neurologist Dr. Gallardo within 2 weeks as an outpatient. DVT prophylaxis I started the patient on subcu heparin 5000 units every 12 hours I notified the nurse to avoid the discharge since there is further neurological workup. Time with Patient: Less than 30
--- NOTE | 2024-04-04 14:53 | P.PN ---
Subjective Progress Note Date: 04/04/24 Reason for Consult (text): Carotid stenosis History of present illness: This is a 63-year-old female patient of Dr. Sheikh with past medical history o f coronary artery disease with prior stenting of the LAD in 2018, hypertension, dyslipidemia, carotid atherosclerosis status post left carotid enterectomy status post stenting of the left common carotid artery 10/2022, PAD with prior left subclavian stenting, history of smoking, COPD, carotid hypoxic respiratory failure. We have been asked to evaluate the patient for severe carotid stenosis. Patient presented to the hospital due to abdominal pain and has been seen by general surgery. Abdominal pain has resolved. Patient also had a left facial droop on and off since November. None is noted at this time. Neurology is on consult. -EKG: Sinus tachycardia 100 bpm -Chest x-ray: -CT brain no acute process. -CT angio head and neck: Severe atherosclerotic plaque at the origins of major vessels of the aorta with motion blooming artifact limiting evaluation of degree of stenosis. Thought to be high-grade stenosis at the origin of the brachiocephalic trunk as well as left subclavian artery. No evidence of significant stenosis at the carotid bifurcations. No evidence of intracranial high-grade stenosis or intracranial aneurysm. Left subclavian stent graft and left common carotid artery stent. -Laboratory studies: Hemoglobin 1.9. BUN 23 creatinine 1.11. Troponin negative x 2. Triglycerides 156, cholesterol 182, LDL 108, HDL 42. -Home cardiac medications: Clonidine 0.2 mg at bedtime, also on midodrine and levothyroxine. -Echocardiogram performed 03/2022 revealed normal EF, mild MR, mild TR. 04/04/2024 Cardiology signed off this case and have been asked to reevaluate for MONE due to multiple CVAs. Patient updated that this will be done this afternoon by Dr. Vale. Vital signs are stable. MRI on this admission is suspicious for area of stroke. Physical examination: Gen: This is 63-year-old female appears to be in no acute distress VS: reviewed HEENT: Head is atraumatic, normocephalic. Pupils equal, round. Sclerae is anicteric. NECK: Supple. No JVD. LUNGS: Clear to auscultation. No wheezes or rhonchi. No intercostal retractions. HEART: Regular rate and rhythm. No murmur. ABDOMEN: Soft No tenderness. EXTREMITIES: No pedal edema. No calf tenderness. NEUROLOGICAL: Patient is awake, alert and oriented x3. Assessment: Carotid stenosis with previous left carotid endarterectomy and stenting of the left common carotid artery Abdominal pain resolved History of coronary artery disease with prior stenting of the LAD Hypertension Dyslipidemia PAD status post left subclavian stenting Tobacco use and dependence COPD Plan: Continue patient's home cardiac medications MONE scheduled with Dr. Vale this afternoon at 2 PM N.p.o. status Patient will follow-up with Dr. Vale in 1 week after discharge Nurse practitioner note has been reviewed, I agree with documented findings and plan of care. Patient was seen and examined. Objective - Vital Signs Vital signs: Vital Signs Temp 98.0 F 04/04/24 08:00 Pulse 86 04/04/24 08:34 Resp 16 04/04/24 08:00 BP 85/52 04/04/24 08:00 Pulse Ox 91 L 04/04/24 08:00 FiO2 30 04/02/24 23:22 Intake & Output 04/03/24 04/04/24 04/04/24 18:59 06:59 18:59 Intake Total 360 Balance 360 Weight 83.9 kg Intake: Oral 360 Other: Voiding Method Toilet Bedside Commode # Voids 2 2 - Labs CBC & Chem 7: 04/04/24 06:09 04/04/24 06:09 Labs: Abnormal Lab Results - Last 24 Hours (Table) 04/04/24 04/04/24 Range/Units 06:09 06:09 RBC 3.14 L (3.80-5.40) m/uL Hgb 10.0 L (11.4-16.0) gm/dL Hct 30.9 L (34.0-46.0) % Chloride 108 H (98-107) mmol/L BUN 22 H (7-17) mg/dL Glucose 124 H (74-99) mg/dL Total Bilirubin <0.1 L (0.2-1.3) mg/dL Total Protein 5.8 L (6.3-8.2) g/dL Albumin 3.4 L (3.5-5.0) g/dL
[2024-04-04] MEDS: BENZOCAINE SPRAY 1 CAN TOPICAL ONE (15:02)
[2024-04-04] MEDS: MIDAZOLAM 2 MG/2 ML VIAL IVP ONE (15:02)
[2024-04-04] MEDS: fentaNYL (PF) 50 MCG/ML 2 ML AMP IVP ONE (15:02)
--- NOTE | 2024-04-04 15:09 | P.PCN ---
Date of Procedure: 04/04/24 Operative Findings: TRANSESOPHAGEAL ECHOCARDIOGRAM TOPOGRAPHICAL FIELD ASSISTANT: CHERYL FARIAS MD, RPVI INDICATION: Rule out cardiac source of embolization SEDATION: Conscious sedation COMPLICATION: None LEVEL OF SEDATION Moderate with sedation length of 12 minutes PROCEDURE DESCRIPTION: After obtaining an informed consent, the patient was brought to transesophageal echocardiogram room. Pulse oximetry and heart monitors were attached to the patient. The patient throat was sprayed using lidocaine. The patient was turned into left lateral position. After that a bite guard was placed. After an appropriate conscious sedation was initiated, the transesophageal echocardiogram was advanced through a bite guard into the mid esophagus. A 2-D echocardiogram images, color Doppler images, continuous wave images, pulse-wave images, of various cardiac structure were performed. After that the transesophageal echocardiogram probe was advanced into the stomach and fixed to obtain transgastric view was. The probe was brought into the mid esophagus. Inter-atrial septum was interrogated using 2D images, color Doppler images, and then contrast study. After that transesophageal echocardiogram was withdrawn out and upon withdrawing the descending thoracic aorta all the way up to the arch was evaluated. CONCLUSION: 1. Normal biventricular systolic function 2. No evidence of cardiac source of embolization 3. Intact interatrial septum with no evidence of shunt was noted 4. Mildly thickened mitral valve leaflets with moderate MR 5. Mild to moderate tricuspid regurgitation 6. Trileaflet aortic valve with no evidence of stenosis or regurgitation
[2024-04-04] MEDS: SODIUM CHLORIDE 0.9% 500 ML 500 ML IV ONE (15:13)
[2024-04-04] MEDS: CLOPIDOGREL 75 MG TAB PO SCH (15:45)
--- NOTE | 2024-04-04 16:07 | P.PN ---
Subjective Progress Note Date: 04/04/24 Principal diagnosis: Abdominal pain possible TIA Family are to our service, known history of multiple medical problems including chronic hypoxic respiratory failure, COPD, hypertension, coronary artery disease, seizure disorder, patient is on home oxygen, she is also on BiPAP at home, brought into the ER with 1 day history of right-sided abdominal pain. While in triage, she was also noted to have some facial drooping, CT of the brain came back negative CT abdomen pelvis came back negative except for enlarged appendix. Patient had relatively normal WBC count, as far as her abdominal pain, patient was seen by surgery and at that time she was seen by Dr. Rutledge, she had no abdominal findings and no abdominal pain. Previously the patient had dilated biliary duct, and she was supposedly scheduled for MRCP on April 11. The left facial droop, patient was admitted, and because of her underlying COPD, this consult was initiated. During my evaluation, the patient had no shortness of breath no cough no wheezing she actually had no active pulmonary issues whatsoever. WBC count 8.5 hemoglobin 11.9 basic metabolic profile is normal renal profile is normal.Chest x-ray showed no evidence of any acute cardiopulmonary process Patient was evaluated today on 04/03/2024, patient is doing well today, relatively asymptomatic, her pain has resolved, seen by neurology, MRI and EEG ordered for today and these are pending patient does not seem to be compliant with BiPAP at night, but she is on nasal cannula, and does not seem to be in any distress although on physical examination she did sound bronchospastic and I recommended a Medrol Dosepak.WBC count is 5.2 hemoglobin is 10.8 potassium is 5.9, being addressed by admitting physician BUN is 21 creatinine 0.87 Patient was seen today on 04/04/2024, patient is doing well, patient underwent MONE, and she was found to have no evidence of cardiac source for embolization. There was intact interatrial septum with no evidence of shunt there was also mild to moderate tricuspid regurgitation and mild mitral valve leaflet with moderate MR patient is doing great, I believe the patient could be considered for discharge planning if cleared by other consultants. Pulmonary murillo she is feeling better breathing easier, hardly any cough or wheezing, yesterday I recommended a Medrol Dosepak for her wheezing. Objective - Vital Signs Vital signs: Vital Signs Temp 98.0 F 04/04/24 08:00 Pulse 90 04/04/24 15:43 Resp 18 04/04/24 15:43 BP 109/54 04/04/24 15:43 Pulse Ox 91 L 04/04/24 15:07 FiO2 30 04/02/24 23:22 Intake & Output 04/03/24 04/04/24 04/04/24 18:59 06:59 18:59 Intake Total 360 286 Balance 360 286 Weight 83.9 kg Intake: IV 50 Oral 360 236 Other: Voiding Method Toilet Bedside Commode # Voids 2 2 2 - Exam GENERAL EXAM: 63-year-old female in no distress, on room air, O2 sat is 91% HEAD: Normocephalic and atraumatic EYES: Normal reaction of pupils, equal size. NOSE: Clear with pink turbinates. THROAT: No erythema or exudates. NECK: No masses, no JVD. CHEST: No chest wall deformity. LUNGS: Diminished breath sound bilaterally wheezing bilaterally on forced expiratory maneuver CVS: S1 and S2 normal with no audible murmur, regular rhythm. No extra heart sounds ABDOMEN: No hepatosplenomegaly, active bowel sounds, no guarding or rigidity. SKIN: No rashes CENTRAL NERVOUS SYSTEM: Alert oriented x 3 no gross focal deficit EXTREMITIES: There is no peripheral edema, clubbing, or cyanosis. Peripheral pulses are intact. - Labs CBC & Chem 7: 04/04/24 06:09 04/04/24 06:09 Labs: Abnormal Lab Results - Last 24 Hours (Table) 04/04/24 04/04/24 Range/Units 06:09 06:09 RBC 3.14 L (3.80-5.40) m/uL Hgb 10.0 L (11.4-16.0) gm/dL Hct 30.9 L (34.0-46.0) % Chloride 108 H (98-107) mmol/L BUN 22 H (7-17) mg/dL Glucose 124 H (74-99) mg/dL Total Bilirubin <0.1 L (0.2-1.3) mg/dL Total Protein 5.8 L (6.3-8.2) g/dL Albumin 3.4 L (3.5-5.0) g/dL Assessment and Plan Assessment: Impression: Right lower quadrant pain, resolved with negative physical exam findings and negative CT of the abdomen and pelvis to explain her right lower quadrant pain History of severe COPD presently in active, FEV1 in the is normal in the range of 25% History of chronic hypoxic and hypercapnic respiratory failure, utilizes BiPAP History of CO2 narcosis and metabolic encephalopathy Possible TIA Chronic ongoing tobacco dependence History of dyslipidemia History of coronary artery disease and multiple previous stents History of carotid artery stenosis status post left carotid stenting Hypothyroidism History of seizure disorder Status post MONE on 04/04/2024, no cardiac source for embolization. Recommendation: Patient has no active pulmonary symptoms, although the patient does have history of severe underlying COPD and chronic hypoxic respiratory failure Resume home medications, continue Medrol Dosepak as directed for her underlying COPD Continue oxygen and use BiPAP as necessary, patient was not compliant with BiPAP MONE report was reviewed this was done earlier today by Dr. Evans General Surgery is addressing her abdominal pain which has resolved Neurology ordered EEG and MRI of the brain Will clear the patient for discharge if cleared by other consultants Time with Patient: Less than 30
[2024-04-04] MEDS: ATORVASTATIN 40 MG TAB PO SCH (20:03)
[2024-04-04] MEDS: HEPARIN SODIUM,PORCINE 5,000 UNIT/ML 1 ML VIAL SQ SCH (20:05)
[2024-04-05 03:03] VITALS: RESP 17
[2024-04-05] MEDS: MIDODRINE 5 MG TAB PO STA (03:34)
[2024-04-05] MEDS: SYMBICORT 160-4.5 MCG INHALER INHALATION SCH (07:47)
[2024-04-05] MEDS: TIOTROPIUM 2.5 MCG INHALER INHALATION SCH (07:54)
[2024-04-05 08:36] VITALS: BP 82/50; PULSE 74; TEMP 96.6
--- NOTE | 2024-04-09 06:38 | CDI ---
Documentation Clarification Form Date: 04/09/2024 06:24:28 AM From: Tessa Benitez Admit Date: 04/01/2024 08:08:00 PM Patient Name: Lidia Chang Visit Number: [id number] Discharge Date: 04/05/2024 10:30:00 AM ATTENTION: The Clinical Documentation Specialists (CDI) and [facility] Coding Staff appreciate your assistance in clarifying documentation. Please respond to the clarification below the line at the bottom and electronically sign. The CDI & [facility] Coding staff will review the response and follow-up if needed. Please note: Queries are made part of the Legal Health Record. If you have any questions, please contact the author of this message via ITS. Doctor/Provider: Jose F Mcwilliams Conflicting documentation has been found in the medical record. As attending physician, please provide clarification. Per neurology PN 04/04 "On current CT Patient has acute stroke that seems embolic in nature over the right hemisphere." Per DCS "Complaint of facial droop and left hand numbness. The patient essentially worked up for TIA. Cleared for outpatient treatment." History/Risk Factors: COPD, opiate dependency, chronic respiratory failure, oxygen dependent, facial droop and numbness of hand. Clinical Indicators: Current CT acute stroke that seems embolic in nature over the right hemisphere. Severe atherosclerotic plaque on CT angiography of head and neck. Treatment: [address] Please clarify which diagnosis is most appropriate: [ x ] Acute stroke seen on current CT [ ] TIA [ ] Other (please specify) [ ] Unable to determine MTDD
== END 2024-04-05 10:30 | disposition home or self-care (01) | DRG 64 ==
LOC: EC 15:58 → 6NMEDSUR 20:07 → OBSVTOIN 20:08 → 3SCARD 04-02 06:11
PROVIDERS: ADMIT Family Medicine; ATTEND Family Medicine
PROC: B24BZZ4 Ultrasonography of Heart with Aorta, Transesophageal (ICD-10-PCS; principal; 2024-04-04 14:05)
DX: I63.40 Cerebral infarction due to embolism of unspecified cerebral artery (principal); G93.41 Metabolic encephalopathy; G93.1 Anoxic brain damage, not elsewhere classified; Z66 Do not resuscitate; F11.20 Opioid dependence, uncomplicated; E03.9 Hypothyroidism, unspecified; I07.1 Rheumatic tricuspid insufficiency; F32.A Depression, unspecified; G40.909 Epilepsy, unspecified, not intractable, without status epilepticus; I10 Essential (primary) hypertension; J44.89 Other specified chronic obstructive pulmonary disease; J96.12 Chronic respiratory failure with hypercapnia; J96.11 Chronic respiratory failure with hypoxia; Z99.81 Dependence on supplemental oxygen; K82.8 Other specified diseases of gallbladder; E78.5 Hyperlipidemia, unspecified; F17.200 Nicotine dependence, unspecified, uncomplicated; F41.9 Anxiety disorder, unspecified; G62.9 Polyneuropathy, unspecified; I25.10 Atherosclerotic heart disease of native coronary artery without angina pectoris; R00.0 Tachycardia, unspecified; I25.2 Old myocardial infarction; I95.89 Other hypotension; R29.810 Facial weakness; Z79.82 Long term (current) use of aspirin; Z79.890 Hormone replacement therapy; Z79.899 Other long term (current) drug therapy; Z95.5 Presence of coronary angioplasty implant and graft; Z96.651 Presence of right artificial knee joint; Z28.21 Immunization not carried out because of patient refusal
CPT/HCPCS: 36415; 70450; 70496; 70498; 70551; 71046; 72141; 74176; 80053; 80061; 80177; 81003; 82150; 82550; 83690; 84484; 85025; 85027; 85610; 85730; 86850; 86900; 86901; 93005; 93270; 93306; 93312; 93320; 93325; 94640; 94660; 94760; 95816; 96361; 96374; 96375; 99291

== ENCOUNTER 2024-07-08 13:34 | Emergency (ER) | payer MEDICARE ==
[2024-07-08 13:39] VITALS: TEMP 98.2
--- NOTE | 2024-07-08 14:33 | US ---
EXAMINATION TYPE: US venous doppler duplex LE LT DATE OF EXAM: 07/08/2024 2:19 PM COMPARISON: 09/30/2023 CLINICAL INDICATION: Female, 64 years old with history of pain,swelling; Left calf/mendoza pain/swelling , no hx of dvt, currently taking aspirin, Pain TECHNIQUE: The lower extremity deep venous system is examined utilizing real time linear array sonog ken with graded compression, color doppler sonography, and spectral doppler. SIDE PERFORMED: Left FINDINGS: VESSELS IMAGED: Common Femoral Vein Deep Femoral Vein Greater Saphenous Vein * Femoral Vein Popliteal Vein Small Saphenous Vein * Proximal Calf Veins (* superficial vessels) limited scan due to pt body habitus & edema Left Leg: appears negative for DVT, Color Doppler imaging shows patency of the vessels. Spectral wav eforms are within normal limits. Calf veins limited Pt AOC Left mendoza bone: no abnormalities seen IMPRESSION: No ultrasound evidence for deep venous thrombosis. [facility], , 07/08/2024 2:31 PM
[2024-07-08] MEDS: oxyCODONE-APAP 10-325MG 1 EACH TAB PO STA (14:46)
[2024-07-08 14:51] VITALS: BP 89/52; PULSE 86; RESP 16
--- NOTE | 2024-07-08 14:54 | ED ---
Lower Extremity Injury HPI - General Chief Complaint: Extremity Injury, Lower Stated Complaint: Lower L leg pain Time Seen by Provider: 07/08/24 13:43 Source: patient, family, RN notes reviewed Mode of arrival: wheelchair Limitations: no limitations - History of Present Illness Initial Comments: 64-year-old female presents emergency department complaint of left leg pain. Patient states that she started pain a few days ago swelling to anterior mendoza. Patient denies any trauma states that she has a broken leg from prior in which she just saw her orthopedic surgeon Dr. Tabor and stated that her x-rays and was not a bony issue. Patient states there is some swelling in the concerned about possible clot. Patient is on hospice for COPD and is only looking for treatment of her left leg. - Related Data Home Medications Medication Instructions Recorded Confirmed Escitalopram [Lexapro] 20 mg PO DAILY 11/28/17 04/01/24 Levothyroxine Sodium 200 mcg PO DAILY 08/20/20 04/01/24 Doxepin [SINEquan] 10 mg PO HS 02/25/22 04/01/24 cloNIDine HCL [Catapres] 0.2 mg PO HS 02/03/23 04/01/24 levETIRAcetam [Keppra] 1,000 mg PO BID 02/03/23 04/01/24 Gabapentin 800 mg PO BID 04/09/23 04/01/24 oxyCODONE HCL/ACETAMINOPHEN 2 tab PO Q6H 11/24/23 04/01/24 [oxyCODONE HCL/ACETAMINOPHEN 5-325] Fluticasone/Umeclidin/Vilanter 1 puff INHALATION RT-DAILY 11/25/23 04/01/24 [Trelegy Ellipta 200-62.5-25] Albuterol Inhaler [Ventolin Hfa 2 puff INHALATION RT-Q4H PRN 04/01/24 04/01/24 Inhaler] Previous Rx's Medication Instructions Recorded Midodrine [ProAmatine] 5 mg PO AC-BID #30 tab 12/09/23 Escitalopram [Lexapro] 40 mg PO DAILY #180 tab 04/04/24 methylPREDNISolone Dose Pack 24 mg PO DAILY #1 pack 04/04/24 [Medrol Dose Pack] Allergies Allergy/AdvReac Type Severity Reaction Status Date / Time No Known Allergies Allergy Verified 07/08/24 13:39 Review of Systems ROS Statement: Those systems with pertinent positive or pertinent negative responses have been documented in the HPI. ROS Other: All systems not noted in ROS Statement are negative. 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 carotid blockage, PAD, vertigo at times. Last Myocardial Infarction Date:: 06/2022 History of Any Multi-Drug Resistant Organisms: None Reported Past Surgical History: Heart Catheterization, Heart Catheterization With Stent, Hysterectomy, Joint Replacement, Orthopedic Surgery Additional Past Surgical History / Comment(s): RT ROTATOR CUFF REPAIR, R total knee, CYSTS REMOVED FROM UNDER ARMS AND HANDS, arch studies, L caratid endartectomy, 4 cardiac stents, several peripheral stents, 07/18/18 left subclavian stent, arch studies. Past Anesthesia/Blood Transfusion Reactions: No Reported Reaction Additional Past Anesthesia/Blood Transfusion Reaction / Comment(s): Pt states that she is unable to go under general anesthesia per her java solutions architect due to low functioning lungs. Pt has never received blood. Date of Last Stent Placement:: Nov 2017 Past Psychological History: Anxiety, Depression Smoking Status: Current every day smoker, Light tobacco smoker Past Alcohol Use History: None Reported Past Drug Use History: None Reported, Marijuana - Past Family History Mother Family Medical History: Cancer Sister(s) Family Medical History: Cancer General Exam Limitations: no limitations General appearance: alert, in no apparent distress Head exam: Present: atraumatic, normocephalic, normal inspection Respiratory exam: Present: decreased breath sounds. Absent: normal lung sounds bilaterally, respiratory distress, wheezes, rales, rhonchi, stridor Cardiovascular Exam: Present: regular rate, normal rhythm, normal heart sounds. Absent: systolic murmur, diastolic murmur, rubs, gallop, clicks Extremities exam: Present: other (Lower extremity there is pulses equal bilaterally there is swelling to the left leg with anterior mendoza tenderness and swelling noted no erythema no open lesions sores) Course Vital Signs 07/08/24 13:35 Temperature 98.2 F Pulse Rate 98 Respiratory 18 Rate Blood Pressure 75/53 O2 Sat by Pulse 91 L Oximetry Medical Decision Making - Medical Decision Making Was pt. sent in by a medical professional or institution ([facility] Lopez, HAND CROCHETER, urgent care, hospital, or retirement...) When possible be specific @ -No Did you speak to anyone other than the patient for history (EMS, parent, family, police, friend...)? What history was obtained from this source @ -No Did you review nursing and triage notes (agree or disagree)? Why? @ -I reviewed and agree with nursing and triage notes Were old charts reviewed (outside hosp., previous admission, EMS record, old EKG, old radiological studies, urgent care reports/EKG's, retirement records)? Report findings @ -No old charts were reviewed Differential Diagnosis (chest pain, altered mental status, abdominal pain women, abdominal pain men, vaginal bleeding, weakness, fever, dyspnea, syncope, headache, dizziness, GI bleed, back pain, seizure, CVA, palpatations, mental health, musculoskeletal)? @ -[DVT, leg edema, leg pain, lumbar radiculopathy, this list is not all inclusive. EKG interpreted by me (3pts min.). @ -None X-rays interpreted by me (1pt min.). @ -None done CT interpreted by me (1pt min.). @ -None done U/S interpreted by me (1pt. min.). @ -Ultrasound left leg negative for acute DVT no obvious abnormalities What testing was considered but not performed or refused? (CT, X-rays, U/S, labs)? Why? @ -None What meds were considered but not given or refused? Why? @ -None Did you discuss the management of the patient with other professionals (professionals i.e. BLAIR Lopez, HAND CROCHETER, lab, RT, psych nurse, manager social work, instrument lens generator, teacher, promotions officer, wrapper caser)? Give summary @ -No Was smoking cessation discussed for >3mins.? @ -No Was critical care preformed (if so, how long)? @ -No Were there social determinants of health that impacted care today? How? (Homelessness, low income, unemployed, alcoholism, drug addiction, transportation, low edu. Level, literacy, decrease access to med. care, skilled nursing, rehab)? @ -No Was there de-escalation of care discussed even if they declined (Discuss DNR or withdrawal of care, Hospice)? DNR status @ -No What co-morbidities impacted this encounter? (DM, HTN, Smoking, COPD, CAD, Cancer, CVA, ARF, Chemo, Hep., AIDS, mental health diagnosis, sleep apnea, morbid obesity)? @ -None Was patient admitted / discharged? Hospital course, mention meds given and route, prescriptions, significant lab abnormalities, going to OR and other pertinent info. @ -Discharge patient had recent x-rays with strategic planning specialist advising there was no bony issues patient is having left anterior mendoza pain, swelling this may be from her walking boot versus leg edema causing discomfort. Patient had negative ultrasound patient discharged in stable condition. Patient is under current hospice treatment for COPD in which patient does have mild hypertension but only addressing left leg pain at this time. Undiagnosed new problem with uncertain prognosis? @ -No Drug Therapy requiring intensive monitoring for toxicity (Heparin, Nitro, Insulin, Cardizem)? @ -No Were any procedures done? @ -No Diagnosis/symptom? @ -[Leg pain Acute, or Chronic, or Acute on Chronic? @ -Acute Uncomplicated (without systemic symptoms) or Complicated (systemic symptoms)? @ -Uncomplicated Side effects of treatment? @ -No Exacerbation, Progression, or Severe Exacerbation? @ -No Poses a threat to life or bodily function? How? (Chest pain, USA, MD, pneumonia, PE, COPD, DKA, ARF, appy, cholecystitis, CVA, Diverticulitis, Homicidal, Suicidal, threat to staff... and all critical care pts) @ -No Disposition Clinical Impression: Leg edema, left, Leg pain Disposition: HOME SELF-CARE Condition: Stable Instructions (If sedation given, give patient instructions): Leg Pain (ED) Additional Instructions: Please return to the Emergency Department if symptoms worsen or any other concerns. Is patient prescribed a controlled substance at d/c from ED?: No Referrals: Jose F Mcwilliams MD [Primary Care Provider] - 1-2 days Time of Disposition: 14:53
== END 2024-07-08 15:13 | disposition home or self-care (01) ==
LOC: EC 13:34
DX: M79.605 Pain in left leg (principal); R60.0 Localized edema; F17.200 Nicotine dependence, unspecified, uncomplicated
CPT/HCPCS: 99283